=== PATIENT | male | born 1945 | race Caucasian/White ===

== ENCOUNTER → 2018-06-26 06:25 | Outpatient (CLI) | payer MEDICARE, OTHER, SELFPAY ==
[2018-06-23 13:03] VITALS: BMI 29.7
--- NOTE | 2018-06-26 14:44 | STRESSREP_ITS ---
Stress Test Report Date: 06/26/2018 Procedure: Exercise tolerance test/imaging study Indications: Chest pain; CAD; PCI Consent: Per the patient Procedure: The patient exercised on a Kashif protocol for 6 minutes completing Stage II and 45 seconds of Stage III achieving a peak heart rate of 100 bpm (37 % predicted maximal heart rate) with a peak blood pressure 190/92 mmHg and a peak MET capacity of 8 METs. The baseline ECG demonstrated sinus bradycardia; first-degree AV block; right IVCD; inferior WA of indeterminate age; nonspecific ST and T wave abnormality. The peak exercise ECG demonstrated continued nonspecific ST and T wave abnormality. There were rare nonconducted PACs during exercise and recovery. The functional capacity was considered average. There was no complaint of chest discomfort during exercise or recovery. The examination was discontinued secondary to dyspnea. Impression: 1. Technically adequate (percent predicted maximal heart rate greater than 85%) exercise tolerance test 2. Peak exercise ECG continued nonspecific ST and T wave abnormality 3. There were rare nonconducted PACs during exercise and recovery 4. No morphologic (Regadenoson) evaluation pending Procedure: Pharmacologic stress nuclear imaging study Consent: Per the patient Procedure: The patient underwent pharmacologic (Regadenoson) evaluation with a peak heart rate of 75 beats per minute (50 predicted maximal heart rate) and a peak blood pressure of 146/70 mmHg. The baseline ECG demonstrated sinus bradycardia; first-degree AV block; right IVCD; inferior WA of indeterminate age; nonspecific ST and T wave abnormality. The peak pharmacologic ECG demonstrated no obvious ECG changes. There were no cardiac dysrhythmias pretest, during pharmacologic infusion, or recovery. There was no complaint of chest discomfort during pharmacologic infusion or recovery. The examination was discontinued secondary to completion of protocol. Impression: 1. Pharmacologic (Regadenoson) evaluation 2. Peak pharmacologic ECG with no obvious ECG changes. 3. There were no cardiac dysrhythmias pretest, during pharmacologic infusion, or recovery. 4. Nuclear images pending Myocardial perfusion imaging study: Technique: The patient was injected with 11.7 millicuries of technetium 99m Cardiolite and subsequently rest SPECT Cardiolite nuclear imaging was obtained in the horizontal long, vertical long, and short axis views. The patient exercised on a Kashif protocol for 6 minutes completing Stage II and 45 seconds of Stage III achieving a peak heart rate of 100 bpm (37 % predicted maximal heart rate) with a peak blood pressure 190/92 mmHg and a peak MET capacity of 8 METs. The patient underwent pharmacologic (Regadenoson) evaluation with a peak heart rate of 75 beats per minute (50 % percent predicted maximal heart rate) and a peak blood pressure of 146/70 mmHg. The patient was injected with 33.9 millicuries of technetium 99m Cardiolite and subsequently stress SPECT Cardiolite nuclear imaging was obtained in the horizontal long, vertical long, and short axis views. A gated Cardiolite study at peak stress was obtained. Interpretation: Rest and stress SPECT Cardiolite nuclear imaging status post realignment, normalization, and attenuation correction demonstrate areas of extracardiac/gastrointestinal tracer uptake near the inferior segments which appear to be more prominent following rest as opposed to stress. Both images demonstrate areas of diminished absence of tracer uptake in portions of the basal inferoseptal and basal inferior segments. This appears to be somewhat more prominent at rest extending toward the mid inferior segment as opposed to status post stress. Status post stress there appears to be a small area of subtle diminished tracer uptake near the lateral apical segment. There are similar type changes on the resting and stress polar map images.. There is diminished end-systolic thickening and brightening in portions of the inferior septal and inferior segments. The gated Cardiolite study demonstrates myocardial thickening and inward wall motion. The reported LVEF is 65 %. Impression: 1. Rest and stress SPECT currently nuclear imaging demonstrate myocardial perfusion changes at rest which appear to improve and/or normalize following stress appearing compatible shifting soft tissue attenuation/artifact and following stress a small area of subtle diminished tracer uptake near the lateral apical segment which would be potentially compatible with physiologic apical thinning and considered equivocal for an area of stress-induced myocardial ischemia. 2. The gated Cardiolite study reports an LVEF of 65%. This note was generated with BlueStacks[employer] software. It may contain incorrect words, spelling, and punctuation that were not noted in checking the note before signing.
--- OUTSIDE RECORDS SUMMARY | 2018-08-21 00:58 | XMS RPT_ITS ---
:1945 Author Organization [place] Support Name Relationship Address Phone ROLAN PENNY Unavailable [address] + [place] [address] R Unavailable Unavailable Unavailable ROLAN PENNY Unavailable [address] + [place] [address] R Unavailable Unavailable Unavailable ROLAN PENNY Unavailable [address] + [place] [address] R Unavailable Unavailable Unavailable ROLAN PENNY Unavailable [address] + [place] [address] R Unavailable Unavailable Unavailable ROLAN PENNY Unavailable [address] + [place] [address] R Unavailable Unavailable Unavailable GRACE PENNY Unavailable Unavailable + ROLAN PENNY Unavailable [address] Unavailable [place], [place] [phone] NOT GIVEN Unavailable Unavailable Unavailable NOT GIVEN Unavailable Unavailable Unavailable GRACE PENNY Unavailable Unavailable + ROLAN PENNY Unavailable [address] Unavailable [place], [place] [phone] NOT GIVEN Unavailable Unavailable Unavailable ROLAN PENNY Unavailable [address] + [place] [address] R Unavailable Unavailable Unavailable ROLAN PENNY Unavailable [address] + [place] [address] R Unavailable Unavailable Unavailable Care Team Providers Name Role Phone RADHA ANGEL Admitting Unavailable RADHA ANGEL Attending Unavailable RADHA ANGEL Primary Care Unavailable DOMENIC BOYLE Consulting Unavailable DOMENIC BOYLE Referring Unavailable PROVIDER, UNKNOWN Consulting Unavailable PROVIDER, UNKNOWN Consulting Unavailable PROVIDER, UNKNOWN Consulting Unavailable MAKAYLA PETERS MD Admitting Unavailable MAKAYLA PETERS MD Attending Unavailable MAKAYLA PETERS MD Primary Care Unavailable MAKAYLA PETERS MD Consulting Unavailable PROVIDER, UNKNOWN Consulting Unavailable PROVIDER, UNKNOWN Consulting Unavailable MAKAYLA PETERS MD Admitting Unavailable MAKAYLA PETERS MD Attending Unavailable MAKAYLA PETERS MD Primary Care Unavailable MAKAYLA PETERS MD Consulting Unavailable PROVIDER, UNKNOWN Consulting Unavailable PROVIDER, UNKNOWN Consulting Unavailable Moodispaw, Demetri Attending Unavailable Moodispaw, Demetri Referring Unavailable Primay Care Physicia, No Primary Care Unavailable Mood[place], Demetri Consulting Unavailable Leigh Rick Attending Unavailable Naya Garcia Attending Unavailable Domenic Boyle Referring Unavailable Boyle, Domenic Primary Care Unavailable Faizan Fraga Attending Unavailable Sharifa Lake PA-C Referring Unavailable Naya Garcia Attending Unavailable Naya Garcia Referring Unavailable Boyle, Domenic Primary Care Unavailable Moodispaw, Demetri Attending Unavailable Mood[place], Demetri Referring Unavailable Primay Care Physicia, No Primary Care Unavailable Mood[place], Demetri Attending Unavailable Mood[place], Demetri Referring Unavailable Primay Care Physicia, No Primary Care Unavailable PROBLEMS PROBLEMS DATE TYPE CONDITION / CODE ATTENDING STATUS SOURCE 07/09/2018 Unknown I25.119 - Moodisp[place], Active [place] Atherosclerotic [facility] heart disease of Hospital inaja coronary Repository artery with unspecified angina pectoris / I25.119(ICD-10) 07/09/2018 Unknown R06.09 - Other forms Moodispaw, Active [place] of dyspnea / [facility] R06.09(ICD-10) Hospital Repository 07/09/2018 Unknown R07.9 - Chest pain, Mood[place], Active [place] unspecified / [facility] R07.9(ICD-10) Hospital Repository 07/09/2018 Unknown R94.39 - Abnormal Mood[place], Active [place] result of other [facility] cardiovascular Hospital function study / Repository R94.39(ICD-10) 07/09/2018 Unknown Z95.5 - Presence of Moodispaw, Active [place] coronary angioplasty [facility] implant and graft / Hospital Z95.5(ICD-10) Repository 04/02/2018 Principle Encounter for other RADHACRISTYFerdinand Active Edson Pomerene Diagnosis preprocedural MAKAYLA CORNELIUS [facility] / Hospital A01327(ICD-10) Repository PROCEDURES PROCEDURES No Procedure Records FoundRESULTS RESULTS 12 LEAD ELECTROCARDIOGRAM Observed: 07/10/2018 Status: F Source: [place] 11:08 AM [facility] REPOSITORY [facility] Cardiovascular Services [address] [place] [address] 12 Lead EKG 07/09/18 0521 MR#: [id number] Acct: [id number] Name: TABATHA PENNY Rep #: [id number] : 1945 73 From: Braden Hammonds MD Attending Dr: Demetri Desai MD Status: DEP SDC Ordering Dr: Kwasi Lazo MD Date: 07/09/18 Location: [facility] Sex: M C Admitted: Test Reason : AM EKG Blood Pressure : / mmHG Vent. Rate : 056 BPM Atrial Rate : 056 BPM P-R Int : 318 ms QRS Dur : 132 ms QT Int : 438 ms P-R-T Axes : 024 -55 -34 degrees QTc Int : 422 ms Sinus bradycardia with 1st degree A-V block Left axis deviation Non-specific intra-ventricular conduction block Lateral infarct , age undetermined Inferior infarct , age undetermined Abnormal ECG When compared with ECG of 08-JUL-2018 10:16, MANUAL COMPARISON REQUIRED, DATA IS UNCONFIRMED Confirmed by BRADEN HAMMONDS MD ([id number]), multimedia editor NASRA SAUCEDO ([id number]) on 07/10/2018 11:07:47 AM Referred By: Demetri Desai Confirmed By:BRADEN HAMMONDS MD 07/10/18 1107 Date Braden Hammonds MD CC: No Primary Care Physician; Kwasi Lazo MD; Demetri Desai MD Signed 12 LEAD ELECTROCARDIOGRAM Observed: 07/10/2018 Status: F Source: [place] 11:08 AM [facility] [place] [facility] Cardiovascular Services [address] [place] [address] 12 Lead EKG 07/08/18 1016 MR#: [id number] Acct: [id number] Name: TABATHA PENNY Rep #: [id number] : 1945 73 From: Braden Hammonds MD Attending Dr: Demetri Desai MD Status: DEP SDC Ordering Dr: Kwasi Laoz MD Date: 07/08/18 Location: [facility] Sex: M C Admitted: Test Reason : Blood Pressure : / mmHG Vent. Rate : 053 BPM Atrial Rate : 053 BPM P-R Int : 334 ms QRS Dur : 130 ms QT Int : 446 ms P-R-T Axes : 039 -59 -28 degrees QTc Int : 418 ms Sinus bradycardia with 1st degree A-V block Left axis deviation Non-specific intra-ventricular conduction block Lateral infarct , age undetermined Inferior infarct (cited on or before 02-NOV-1996) Abnormal ECG When compared with ECG of 19-DEC-2015 02:25, No significant change was found Confirmed by BRADEN HAMMONDS MD ([id number]), multimedia editor NASRA SAUCEDO ([id number]) on 07/10/2018 11:08:23 AM Referred By: Demetri Desai Confirmed By:BRADEN HAMMONDS MD 07/10/18 1108 Date Braden Hammonds MD CC: No Primary Care Physician; Kwasi Lazo MD; Demetri Desai MD Signed DISCHARGE SUMMARY Observed: 07/09/2018 Status: F Source: [place] 10:01 AM [facility] Medical Records Department [address] [place] [address] Discharge Summary 07/09/18 0957 MR#: [id number] Acct: [id number] Name: TABATHA PENNY Rep #: [id number] : 1945 73 From: Demetri Desai MD PCP: Care Physician, No Primary Status: REG SDC Y Location: ICU [id number] Discharge Date and Diagnosis Date of Admission: 07/08/18 Date of Discharge: 07/09/18 - Primary Discharge Diagnosis Angina pectoris; abnormal stress nuclear imaging study; CAD; status post LAD PCI - Secondary Discharge Diagnosis Chronic Problems (Last Updated 11/03/17 @ 09:53 by Tiesha Cleveland) S/P coronary artery stent placement (Chronic 07/08/18) AAA (abdominal aortic aneurysm) (Chronic) VANDANA (obstructive sleep apnea) (Chronic) CVA (cerebral vascular accident) (Chronic) History of coronary artery stent placement (Chronic) PTCA OF RCA 02/06, PTCA of proximal LAD AND mid RCA 09/10 Angina pectoris (Chronic) Diastolic dysfunction (Chronic) Hyperlipidemia (Chronic) Acquired left ventricular hypertrophy (Chronic) Right bundle-branch block (Chronic) 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 Desai [facility] Course and Treatment Operations: None Procedures: Cardiac catheterization - Cardiac intervention: LAD PCI Summary of Care Provided: The patient is a 73 year old with a past medical history of CAD status post remote PCI who presented for evaluation with angina pectoris and an abnormal stress nuclear imaging study for further evaluation with diagnostic cardiac catheterization. The patient underwent diagnostic cardiac catheterization (please the official report) demonstrating LAD in-stent restenosis. The patient subsequently underwent LAD PCI. The patient was monitored in the ICU overnight. He remained symptomatically stable. He had no obvious pulse procedure related complications. His medications were adjusted. On 07/09/2018 that was felt the patient could be released home for continued outpatient cardiovascular follow up. [] Subjective: The patient is awake and alert with no acute complaints or concerns. - Physical Exam General: Alert, Oriented x3, Cooperative, No apparent distress HEENT: Atraumatic, PERRLA, EOMI, Normocephalic Oral: Moist Mucosa Neck: Supple, No JVD Lungs: Clear to auscultation Cardiovascular: Regular rate, Normal S1, Normal S2 Abdomen: Bowel Sounds Present, Soft Extremities: No clubbing, No cyanosis, No edema, - - Right inguinal area: Right femoral artery pulse: 2+/4+; no hematoma; slight ecchymosis Neurological: Neuro grossly intact Vital Signs Temp Pulse Resp BP Pulse Ox 97.9 F 59 L 13 120/38 L 94 07/09/18 04:00 07/09/18 07:15 07/09/18 06:00 07/09/18 06:00 07/09/18 06:00 Oxygen Delivery Method Room Air Weight: 187 lb 6.287 oz Body Mass Index (BMI) 28.4 Finger Stick Blood Glucose 102 Intake and Output for Last 24 Hours Intake Total 1857 / 1857 400.2 / 400.2 Output Total 1050 / 1050 975 / 975 Balance 807 / 807 -574.8 / -574.8 Laboratory Tests Past 24 Hrs WBC 7.4 RBC 4.55 L Hgb 14.6 Hct 42.0 MCV 92.3 MCH 32.1 H MCHC 34.8 RDW 12.6 Discharge Activity: May Drive - May not drive x48 hours, May Shower - May shower today May resume sexual activity in: 2 weeks Weight Bearing Status: - - Avoid heavy lifting/exertional activity until 07/13/2018 barring unforeseen circumstances Call your doctor if your incision/area has: Continuous Slow Oozing, Sudden Increased Bleeding, Increased Pain/ Swelling, Increased Redness, Foul Smelling Discharge, Swelling at the incision site Call your doctor if you observe: Fever of 101 or Higher, Shortness of breath, Dizziness, Fainting spells, Swelling in the ankles, Chest pain Cleanse incision/area with: Soap AND Water Home Medications: Medications to take at Discharge Aspirin [Ecotrin] 81 mg PO DAILY 03/02/14 Clopidogrel Bisulfate [Plavix] 75 mg PO DAILY 03/02/14 Losartan Potassium [Cozaar] 50 mg PO DAILY 03/02/14 Nitroglycerin [Nitrostat] 0.4 mg SUBLINGUAL Q5M PRN 03/02/14 [place]-3 Fatty Acids [Fish Oil] 300 mg PO DAILY 03/02/14 Pantoprazole Sodium [Protonix] 40 mg PO DAILY 07/08/18 Vitamin E 400 units PO DAILY 07/08/18 Amlodipine [Norvasc] 2.5 mg PO DAILY #30 tablet 07/09/18 Aspirin E.C. [Ecotrin] 81 mg PO DAILY@0800 tablet 07/09/18 Atorvastatin Calcium [Lipitor] 80 mg PO QHS #30 tablet 07/09/18 Metoprolol Tartrate [Lopressor (beta tami)] 25 mg PO BID #60 tablet 07/09/18 Nitroglycerin [Nitrostat] 0.4 mg SUBLINGUAL Q5M PRN tablet 07/09/18 Following Prescrptions Were Given to Patient: Amlodipine [Norvasc] 2.5 mg PO DAILY #30 tablet Atorvastatin Calcium [Lipitor] 80 mg PO QHS #30 tablet Metoprolol Tartrate [Lopressor (beta tami)] 25 mg PO BID #60 tablet Primary Care Physician: Care Physician,No Primary [Primary Care Provider] - Please Follow Up With: Demetri Desai MD When: [facility] office to arrange follow up Disposition: Home Minutes spent on discharge:: 45 Patient Condition:: Stable Medical Necessity - Tobacco Use Smoking Status: Former smoker Meaningful Use Info Meaningful Use Diagnoses (Choose all that apply): None applicable 07/09/18 1001 <Electronically signed by Demetri Desai MD> Date Demetri Desai MD Cosigner Signature (if applicable): Date CC: No Primary Care Physician; Demetri Desai MD Signed DISCHARGE INSTRUCTION Observed: 07/09/2018 Status: F Source: [place] 9:57 AM [facility] [place] [facility] Medical Records Department [address] [place] [address] Instructions for Home/Discharge Instructions 07/09/18 0952 MR#: [id number] Acct: [id number] Name: TABATHA PENNY Rep #: [id number] : 1945 73 From: Demetri Desai MD PCP: Care Physician, No Primary Status: REG SDC - Discharge Diagnoses Current Active Problems: Angina pectoris; CAD; status post LAD PCI Reason(s) for Visit for Discharge Instructions: Angina pectoris; abnormal stress nuclear imaging study; CAD; status post remote PCI You will use the following diet at home:: Cardiac Your food should be the consistency of: Regular Discharge Activity: May Drive - May not drive x48 hours, May Shower - May shower today May resume sexual activity in: 2 weeks Weight Bearing Status: - - Avoid heavy lifting/exertional activity until 07/13/2018 barring unforeseen circumstances Call your doctor if your incision/area has: Continuous Slow Oozing, Sudden Increased Bleeding, Increased Pain/ Swelling, Increased Redness, Foul Smelling Discharge, Swelling at the incision site Call your doctor if you observe: Fever of 101 or Higher, Shortness of breath, Dizziness, Fainting spells, Swelling in the ankles, Chest pain Cleanse incision/area with: Soap AND Water Additional Instructions: Medication alterations: Change metoprolol Tartrate from 50 mg by mouth twice daily to 25 mg by mouth twice daily. Change atorvastatin from 40 mg by mouth daily to 80 mg by mouth daily. Initiate amlodipine at 2.5 mg by mouth daily Allergies/Adverse Reactions: Allergies Penicillins Allergy (Verified 07/08/18 11:37) Anaphylaxis hives and asystole Medications to take at Discharge Aspirin [Ecotrin] 81 mg PO DAILY 03/02/14 Clopidogrel Bisulfate [Plavix] 75 mg PO DAILY 03/02/14 Losartan Potassium [Cozaar] 50 mg PO DAILY 03/02/14 Nitroglycerin [Nitrostat] 0.4 mg SUBLINGUAL Q5M PRN 03/02/14 [place]-3 Fatty Acids [Fish Oil] 300 mg PO DAILY 03/02/14 Pantoprazole Sodium [Protonix] 40 mg PO DAILY 07/08/18 Vitamin E 400 units PO DAILY 07/08/18 Amlodipine [Norvasc] 2.5 mg PO DAILY #30 tablet 07/09/18 Aspirin E.C. [Ecotrin] 81 mg PO DAILY@0800 tablet 07/09/18 Atorvastatin Calcium [Lipitor] 80 mg PO QHS #30 tablet 07/09/18 Metoprolol Tartrate [Lopressor (beta tami)] 25 mg PO BID #60 tablet 07/09/18 Nitroglycerin [Nitrostat] 0.4 mg SUBLINGUAL Q5M PRN tablet 07/09/18 The following prescriptions were given: Amlodipine [Norvasc] 2.5 mg PO DAILY #30 tablet Atorvastatin Calcium [Lipitor] 80 mg PO QHS #30 tablet Metoprolol Tartrate [Lopressor (beta tami)] 25 mg PO BID #60 tablet Primary Care Physician: Care Physician,No Primary [Primary Care Provider] - Test Results: Test results from this visit will be discussed in further detail at your follow-up appointment, if applicable. Please Follow Up With: Demetri Desai MD When: [facility] office to arrange follow up Proposed Discharge Date: 07/09/18 07/09/18 0957 <Electronically signed by Demetri Desai MD> Date Demetri Desai MD CC: No Primary Care Physician CBC-COMPLETE BLOOD CNT Collected: 07/09/2018 Status: F Source: [place] NO DIFF 5:00 AM [facility] [place] TYPE CODE TESTS RESULT OUT OF RANGE REFERENCE UNITS LAB L100.1000 4.4-11.0 K/mm3 Normal WBC 7.4 LAB L100.1200 4.6-6.2 M/mm3 Low RBC 4.55 LAB L100.1300 13.0-16.5 g/dl Normal HGB 14.6 LAB L100.1400 40-54 % Normal HCT 42.0 LAB L100.1500 80-94 fL Normal MCV 92.3 LAB L100.1600 27.0-32.0 pg High MCH 32.1 LAB L100.1700 32-36 g/gl Normal MCHC 34.8 LAB L100.1810 11.6-14.6 % Normal RDW CV 12.6 LAB L100.1820 35.1-43.9 fl Normal RDW SD 41.6 LAB L100.1900 150-450 K/mm3 Normal PLT 182 LAB L100.2000 6.2-12.0 fl Normal MPV 9.9 Performed By: #### L100.0500 #### [facility] [address] [place], [address] BASIC METABOLIC Collected: 07/09/2018 Status: F Source: [place] PROFILE (BMP) 5:00 AM [facility] [place] TYPE CODE TESTS RESULT OUT OF RANGE REFERENCE UNITS LAB L501.0100 74-106 mg/dL Normal GLU 102 Result Comment: Fasting Glucose result from 100 to 125 mg/dL suggests IMPAIRED HOMEOSTASIS per A.D.A. criteria. Please note revised GLUCOSE reference range effective 2017. LAB L501.1000 7-18 mg/dL Normal BUN 14 LAB L501.1100 0.70-1.30 mg/dL Normal CREAT,SERUM 0.90 Result Comment: The validity of the calculated GFR AND GFRAA in patients over 70 years has not been determined. Clinical correlation is essential. LAB L501.1110 >60 mL/min Normal EST GFR 88 Result Comment: Non- GFR Calc LAB L501.1115 >60 mL/min Normal EST GFR - AA 106 Result Comment: GFR Calc LAB L501.1255 ml/min Normal Estimated CRCL 74.19 LAB L501.1300 10-20 RATIO Normal BUN/CRE 15.5 LAB L501.2200 8.5-10 mg/dL Low .1 CA 8.4 LAB L501.5300 136-14 mmol/L Normal 5 NA 143 LAB L501.5600 3.5-5. mmol/L Normal 1 K 4.1 LAB L501.5900 98-107 mmol/L High CL 108 LAB L501.6100 21.0-3 mmol/L Normal 2.0 CO2 27.0 LAB L501.6200 5-15 Normal GAP 8 Performed By: #### L500.2500 #### [facility] [address] [place], [address] ACT ACTIVATED CLOTTING Collected: 07/08/2018 Status: F Source: [place] TIME 9:38 AM [facility] [place] TYPE CODE TESTS RESULT OUT OF RANGE REFERENCE UNITS LAB L9100.0100 74-137 sec High ACTk CLOT 186 TIME Performed By: #### L9100.0100 #### [facility] Point of Care [address] [place] [address] CHEST PA AND LATERAL Observed: 06/30/2018 Status: F Source: [place] 2:03 PM [facility] Imaging Services [address] [place] [address] Chest PA and Lateral MR#: [id number] Acct: [id number] Name: TABATHA PENNY Rep #: [id number] : 1945 M 73 From: Edward Mendosa MD PCP: Care Physician, No Primary Status: REG CLI Study: Chest PA and Lateral Date of Exam: 06/30/18 Exam# [id number] Ordering Dr: Demetri Desai MD STUDY: X-RAY CHEST REASON FOR EXAM: Male, 73 years old. Chest pain with exertion TECHNIQUE: Frontal and lateral views of the chest. COMPARISON: 12/19/2015 FINDINGS: The lungs are clear and expanded. There is no demonstrated pleural abnormality. Normal size heart. Normal mediastinum and [place]. Normal visualized pulmonary arteries. Normal visualized aortic arch and descending thoracic aorta. Normal visualized thoracic spine. There is degenerative osteoarthritis of the bilateral shoulders. There is no demonstrated abnormality of the visualized soft tissue structures of the upper abdomen. RAD/Chest PA and Lateral IMPRESSION: No acute pulmonary findings. Electronically Signed: Edward Mendosa MD at 15:44 EST Tel , Service support , CC: No Primary Care Physician; Demetri Desai MD Bar Porter: Signed CBC-COMPLETE BLOOD CNT Collected: 06/30/2018 Status: F Source: [place] NO DIFF 1:50 PM [facility] [place] [place] TYPE CODE TESTS RESULT OUT OF RANGE REFERENCE UNITS LAB L100.1000 4.4-11.0 K/mm3 Normal WBC 5.8 LAB L100.1200 4.6-6.2 M/mm3 Normal RBC 5.01 LAB L100.1300 13.0-16.5 g/dl Normal HGB 15.9 LAB L100.1400 40-54 % Normal HCT 47.1 LAB L100.1500 80-94 fL Normal MCV 94.0 LAB L100.1600 27.0-32.0 pg Normal MCH 31.7 LAB L100.1700 32-36 g/gl Normal MCHC 33.8 LAB L100.1810 11.6-14.6 % Normal RDW CV 13.0 LAB L100.1820 35.1-43.9 fl High RDW SD 44.5 LAB L100.1900 150-450 K/mm3 Normal PLT 172 LAB L100.2000 6.2-12.0 fl Normal MPV 10.3 Performed By: #### L100.0500 #### [facility] [place], [address] PROTHROMBIN TIME W/INR Collected: 06/30/2018 Status: F Source: [place] 1:50 PM [facility] TYPE CODE TESTS RESULT OUT OF RANGE REFERENCE UNITS LAB L300.4150 11.7-14.9 SECONDS Normal PROTIME 13.8 LAB L300.4200 Normal INR 1.1 Performed By: #### L300.3900, L300.4310 #### [facility] [address] [place], [place], [address] PARTIAL THROMBOPLAST Collected: 06/30/2018 Status: F Source: [place] TIME 1:50 PM [facility] TYPE CODE TESTS RESULT OUT OF RANGE REFERENCE UNITS LAB L300.4310 24.1-36.2 Seconds Normal PTT 27.3 Performed By: #### L300.3900, L300.4310 #### [facility] [address] [place], [place], [address] BASIC METABOLIC Collected: 06/30/2018 Status: F Source: [place] PROFILE (BMP) 1:50 PM [facility] [place] TYPE CODE TESTS RESULT OUT OF RANGE REFERENCE UNITS LAB L501.0100 74-106 mg/dL High GLU 111 Result Comment: Fasting Glucose result from 100 to 125 mg/dL suggests IMPAIRED HOMEOSTASIS per A.D.A. criteria. Please note revised GLUCOSE reference range effective 2017. LAB L501.1000 7-18 mg/dL Normal BUN 12 LAB L501.1100 0.70-1.30 mg/dL Normal CREAT,SERUM 1.00 Result Comment: The validity of the calculated GFR AND GFRAA in patients over 70 years has not been determined. Clinical correlation is essential. LAB L501.1110 >60 mL/min Normal EST GFR 78 Result Comment: Non- GFR Calc LAB L501.1115 >60 mL/min Normal EST GFR - AA 95 Result Comment: GFR Calc LAB L501.1300 10-20 RATIO Normal BUN/CRE 12.0 LAB L501.2200 8.5-10.1 mg/dL CA Normal 8.7 LAB L501.5300 136-145 mmol/L NA Normal 141 LAB L501.5600 3.5-5.1 mmol/L K Normal 4.3 LAB L501.5900 98-107 mmol/L CL Normal 105 LAB L501.6100 21.0-32.0 mmol/L Normal CO2 29.0 LAB L501.6200 5-15 Normal GAP 7 Performed By: #### L500.2500 #### [facility] [address] [place], [address] STRESS REPORT Observed: 06/26/2018 Status: F Source: [place] 2:44 PM [facility] Cardiovascular Services [address] [place] [address] MR#: [id number] Acct: [id number] Name: TABATHA PENNY Rep #: [id number] : 1945 73 From: Demetri Desai MD Primary Care: Sharifa Lake PA-C Status: REG CLI Ordering Dr: Livier: Felipe Agarwal Stress Test Report Date: 06/26/2018 Procedure: Exercise tolerance test/imaging study Indications: Chest pain; CAD; PCI Consent: Per the patient Procedure: The patient exercised on a Kashif protocol for 6 minutes completing Stage II and 45 seconds of Stage III achieving a peak heart rate of 100 bpm (37 % predicted maximal heart rate) with a peak blood pressure 190/92 mmHg and a peak MET capacity of 8 METs. The baseline ECG demonstrated sinus bradycardia; first-degree AV block; right IVCD; inferior NE of indeterminate age; nonspecific ST and T wave abnormality. The peak exercise ECG demonstrated continued nonspecific ST and T wave abnormality. There were rare nonconducted PACs during exercise and recovery. The functional capacity was considered average. There was no complaint of chest discomfort during exercise or recovery. The examination was discontinued secondary to dyspnea. Impression: 1. Technically adequate (percent predicted maximal heart rate greater than 85%) exercise tolerance test 2. Peak exercise ECG continued nonspecific ST and T wave abnormality 3. There were rare nonconducted PACs during exercise and recovery 4. No morphologic (Regadenoson) evaluation pending Procedure: Pharmacologic stress nuclear imaging study Consent: Per the patient Procedure: The patient underwent pharmacologic (Regadenoson) evaluation with a peak heart rate of 75 beats per minute (50 predicted maximal heart rate) and a peak blood pressure of 146/70 mmHg. The baseline ECG demonstrated sinus bradycardia; first-degree AV block; right IVCD; inferior NE of indeterminate age; nonspecific ST and T wave abnormality. The peak pharmacologic ECG demonstrated no obvious ECG changes. There were no cardiac dysrhythmias pretest, during pharmacologic infusion, or recovery. There was no complaint of chest discomfort during pharmacologic infusion or recovery. The examination was discontinued secondary to completion of protocol. Impression: 1. Pharmacologic (Regadenoson) evaluation 2. Peak pharmacologic ECG with no obvious ECG changes. 3. There were no cardiac dysrhythmias pretest, during pharmacologic infusion, or recovery. 4. Nuclear images pending Myocardial perfusion imaging study: Technique: The patient was injected with 11.7 millicuries of technetium 99m Cardiolite and subsequently rest SPECT Cardiolite nuclear imaging was obtained in the horizontal long, vertical long, and short axis views. The patient exercised on a Kashif protocol for 6 minutes completing Stage II and 45 seconds of Stage III achieving a peak heart rate of 100 bpm (37 % predicted maximal heart rate) with a peak blood pressure 190/92 mmHg and a peak MET capacity of 8 METs. The patient underwent pharmacologic (Regadenoson) evaluation with a peak heart rate of 75 beats per minute (50 % percent predicted maximal heart rate) and a peak blood pressure of 146/70 mmHg. The patient was injected with 33.9 millicuries of technetium 99m Cardiolite and subsequently stress SPECT Cardiolite nuclear imaging was obtained in the horizontal long, vertical long, and short axis views. A gated Cardiolite study at peak stress was obtained. Interpretation: Rest and stress SPECT Cardiolite nuclear imaging status post realignment, normalization, and attenuation correction demonstrate areas of extracardiac/gastrointestinal tracer uptake near the inferior segments which appear to be more prominent following rest as opposed to stress. Both images demonstrate areas of diminished absence of tracer uptake in portions of the basal inferoseptal and basal inferior segments. This appears to be somewhat more prominent at rest extending toward the mid inferior segment as opposed to status post stress. Status post stress there appears to be a small area of subtle diminished tracer uptake near the lateral apical segment. There are similar type changes on the resting and stress polar map images.. There is diminished end-systolic thickening and brightening in portions of the inferior septal and inferior segments. The gated Cardiolite study demonstrates myocardial thickening and inward wall motion. The reported LVEF is 65 %. Impression: 1. Rest and stress SPECT currently nuclear imaging demonstrate myocardial perfusion changes at rest which appear to improve and/or normalize following stress appearing compatible shifting soft tissue attenuation/artifact and following stress a small area of subtle diminished tracer uptake near the lateral apical segment which would be potentially compatible with physiologic apical thinning and considered equivocal for an area of stress- induced myocardial ischemia. 2. The gated Cardiolite study reports an LVEF of 65%. This note was generated with Bountysourceation software. It may contain incorrect words, spelling, and punctuation that were not noted in checking the note before signing. 06/26/18 1444 <Electronically signed by Demetri Desai MD> Date Demetri Desai MD CC: TALAT Lake; Domenic Boyle MD; Naya Garcia Date Dictated: 06/26/181433 Date Transcribed: 06/26/181433 Bar Porter: PM Signed CARDIOLOGY VISIT Observed: 06/23/2018 Status: F Source: [facility] 1:54 PM [facility] [address] [place] [address] OFFICE VISIT Date of Service: 06/23/18 MR#: [id number] Acct: [id number] Name: TABATHA PENNY Rep #: [id number] : 1945 Provider: CATERINA Fraga Age/Sex: 73/M Location: [facility] Status: Signed [facility] Details: TABATHA PENNY is a 73 M who presents to the office today for a cardiovascular outpatient follow-up. He has a history of coronary artery disease with stenting to his RCA in 2012 and stenting to his proximal LAD and mid RCA in 2013. He also has a history of hypertension, hyperlipidemia, and CVA. He was diagnosed with VANDANA and is using a CPAP. He quit smoking in 1992. Patient contacted our office stating he has bilateral upper extremity arm pain, fatigue, and dyspnea on exertion. He was started on isosorbide and a nuclear stress test was ordered for further evaluation. He presents today for further evaluation regarding symptoms. He states his blood pressure at home as been well controlled. He states his beta-tami was decreased to help with fatigue. He has since returned to previous dosage due to current symptoms. He states since returning his metoprolol back to 50mg BID his bilateral arm pain and chest pain and SOB have improved. However, his symptoms remain. He states his chest pain feels similar as prior to his PCI. His exercise tolerance is stable. Pt denies symptoms of palpitations, lightheadedness, dizziness, near syncopal or syncopal episodes. Pt denies edema or claudication issues. Pt. denies orthopnea, PND, myalgia, or unexplainable fatigue. He states that he took isosorbide once, but developed a headache and discontinued it. Intake Vital Signs06/23/18 Blood Pressure 148/70 H 06/23/18 Blood Pressure Location Lt brachial Intake Visit Reasons: LUCIO Guide [place] Required: No Accompanied by: None Is patient in pain?: No Allergies Penicillins Allergy (Verified 06/23/18 13:12) Unknown Medications Aspirin [Ecotrin] 81 mg PO DAILY 03/02/14 [History Confirmed 06/23/18] Clopidogrel Bisulfate [Plavix] 75 mg PO DAILY 03/02/14 [History Confirmed 06/23/18] Losartan Potassium [Cozaar] 50 mg PO DAILY 03/02/14 [History Confirmed 06/23/18] Nitroglycerin [Nitrostat] 0.4 mg SUBLINGUAL Q5M PRN 03/02/14 [History Confirmed 06/23/18] [place]-3 Fatty Acids [Fish Oil] 300 mg PO DAILY 03/02/14 [History Confirmed 06/23/18] Atorvastatin Calcium [Lipitor] 40 mg PO QHS #30 10/18/14 [Rx Confirmed 06/23/18] ergocalciferol (vitamin D2) 400 unit tablet 400 unit PO DAILY 06/23/18 [History Confirmed 06/23/18] metoprolol tartrate 50 mg tablet 50 mg PO BID tab 06/23/18 [History] Ejection fraction %: 60 to 64 PFSH Medical History VANDANA (obstructive sleep apnea) (Chronic) CVA (cerebral vascular accident) (Chronic) Diastolic dysfunction (Chronic) Hyperlipidemia (Chronic) Acquired left ventricular hypertrophy (Chronic) Right bundle-branch block (Chronic) Old myocardial infarction (Resolved) Atherosclerotic heart disease of inaja coronary artery without angina pectoris (Chronic) Intractable nausea and vomiting (Resolved) Headache (Resolved) History of TIA (Chronic) Hypertension (Chronic) Coronary artery disease (Chronic) Surgical History History of coronary artery stent placement (Chronic) Family History Brother Diabetes Brother Hypertension Brother Cancer esophageal Brother Hip fracture Sister Diabetes Kidney disease kidney failure Sister Diabetes CAD (coronary artery disease) Hx of CABG Obesity Hyperlipidemia Father CAD (coronary artery disease) Myocardial infarction CHF (congestive heart failure) Daughter Migraine Mother Cancer Lung cancer Myocardial infarction Social History Smoking Status: Former smoker how long ago did patient quit smokin alcohol intake: former year quit: 1992 substance use type: does not use caffeine: No what type of physical activity do you participate in: bicycling, other details: tredmill frequency: 3-4 times per week duration: 30-45 minutes/day seatbelt use: always do you feel safe at home: Yes ROS Const Const: Positive for fatigue (Improving) and other (Bilateral arm pain); negative for weakness, body ache, fever(s) or chills ENT ENT: Negative for dizziness Cardio Chest Pain: No Palpitations: No Edema: None Muscle aches with walking: None Resp Respiratory: Positive for SOB with activity; negative for SOB at rest, SOB orthopnea\SOB lying down or paroxysmal nocturnal dyspnea GI GI: Negative nausea, black,tarry stools, bright, red blood in stools or vomiting blood/hematemesis : Negative for hematuria or frequent nighttime urination/ nocturia Musc Musc: Negative for muscle aches/ myalgia Skin Skin: Negative non-healing lesions or rash Neuro Neuro: Negative for weakness, dizziness, lightheadedness, near syncope, syncope or orthostatic symptoms Endo Endo: Positive for fatigue (Improving) Allergy Allergy/Immunology: Negative for rash Cardiology Exam Const Appearance: cooperative, no acute distress and well developed Nutritional Appearance: overweight and well nourished Orientation: alert, awake and oriented x3 Head Head: normocephalic and atraumatic Ears: hearing grossly normal bilaterally Nose: external nose normal Face and Sinus: face symmetric Mouth: moist mucous membranes and tongue normal Eyes General: appearance normal, both eyes and all related structures Conjunctivae: conjunctivae normal Pupils: PERRL EOM: EOM intact bilaterally Neck Neck: normal visual inspection, no lymphadenopathy and no JVD Carotids: Negative bruit Neck Mass: Negative Neck mass Chest Chest inspection: normal inspection of the chest, symmetric chest movement, midline sternotomy incision and normal respiratory effort Auscultation: Bilateral: Clear to Auscultation Cardio Palpation: normal PMI Rate: regular rate Rhythm: regular rhythm Heart sounds: S1 normal and S2 normal; negative rub, gallop or murmur GI GI: normal to inspection, soft, no hepatosplenomegaly and bowel sounds present; negative tender Neuro General: alert, awake, oriented x3, CN's II-XI intact bilaterally and moves all extremities Skin Skin: no rashes or lesions noted Extremities Pulses: Normal: Right Posterior Tibial Pulse, Left Posterior Tibial Pulse, Right Radial Pulse, Left Radial Pulse Lower Extremity Edema: None: Bilateral Psych Psychological: normal affect Supplemental Info Echocardiogram 2014 demonstrated an ejection fraction of 60%. Trivial mitral and tricuspid insufficiency. No obvious intracardiac mass/will lesion port/thrombus identified. Carotid u/s in 2017 demonstrated Mild irregular plague at the proximal right internal carotid with <50% stenosis. Moderate soft plague at the proximal left internal carotid with 50-69% stenosis. Normal flow bilateral external carotids. Patent and antegrade vertebrals bilaterally. Heart cath in November 2015 demonstrated Left ventricle: Severe hypokinesis to akinesis of the basal to mid inferior segment with an estimated LVEF 55%. Left main coronary artery: Angiographically normal. Left anterior descending coronary artery: Proximal stent: Patent with no obvious angiographic evidence of in-stent restenosis, Status post the takeoff of the 2nd diagonal branch there is 25% eccentric appearing stenosis . Left circumflex coronary artery: Proximal to mid diffuse 25% appearing stenosis. Right coronary artery: Large dominant vessel, Proximal to mid to distal stents, Proximal to mid: 10-25% eccentric appearing stenosis, Distal stents: Near the termination of the stent: 50% hazy eccentric appearing. He was referred to [place] for possible stenting. This was reviewed by Dr. Mancera and it was felt that this could be treated medically. Assessment AND Plan 1. Atherosclerosis of inaja coronary artery of inaja heart without angina pectoris I25.10 Plan Patient will undergo a nuclear stress test in approximately 3 days to further evaluate for ischemic component. He does acknowledge similarity with his symptoms with previous PCIs. This will further evaluate his bilateral arm pain, fatigue, and shortness of breath. Depending on results further recommendation will be made. 2. History of coronary artery stent placement Z95.5 PTCA OF RCA 02/06, PTCA of proximal LAD AND mid RCA 09/10 Plan His most recent heart catheterization was in November 2015 which showed proximal LAD stent with no obvious angiographic evidence of in-stent restenosis and RCA stent with 50% stenosis. He was evaluated at [facility] for this and medical management was recommended. At this time, he will continue current medications and we will proceed with nuclear stress test. 3. Dyspnea on exertion R06.09 Plan The exact etiology of his dyspnea is unclear. If his stress test is negative further consideration for repeating echocardiogram will be made. 4. Essential hypertension I10 Plan His blood pressure initially was elevated and upon recheck was on the higher end of expected range. He states his blood pressure at home has been better controlled. At this time we will continue current medication. Depending on his overall course his losartan may need to be to increased to 100 mg p.o. daily or 50 mg twice daily for better blood pressure support. 5. Pure hypercholesterolemia E78.00 Plan He will continue with current statin medication. 6. Abdominal aortic aneurysm (AAA) without rupture I71.4 Plan His last abdominal aorta ultrasound in 2014 showed stable infrarenal abdominal aortic aneurysm measuring 3.3 cm in transverse dimension and 3.2 cm in AP dimension. He states that this has been reevaluated by primary care physician in May 2018. He was reminded of the importance of both blood pressure and heart rate control. He will continue current medications. Plan Detail Other Medications Discontinued: isosorbide mononitrate ER Discontinued Reason: Pt no long30 mg PO DAILY 30 tabs 11RF er taking Additional Comments Thank you for allowing us to participate in the patient's plan of care, if you have any questions please do not hesitate to call. This note was generated using a voice recognition system and there may be incorrect words, spelling, or punctuation that were not noted upon reviewing the office note prior to saving. Coding Level of Care Code Off vis,est,level 3 Diagnoses Atherosclerosis of inaja coronary artery of inaja heart without angina pectoris I25.10 [place] vs. transplanted heart: inaja heart History of coronary artery stent placement Z95.5 Dyspnea on exertion R06.09 Essential hypertension I10 Hypertension type: essential hypertension Pure hypercholesterolemia E78.00 Hyperlipidemia type: pure hypercholesterolemia Abdominal aortic aneurysm (AAA) without rupture I71.4 Presence of rupture: without rupture Coding Level of Care Code Off vis,est,level 3 Diagnoses Atherosclerosis of inaja coronary artery of inaja heart without angina pectoris I25.10 [place] vs. transplanted heart: inaja heart History of coronary artery stent placement Z95.5 Dyspnea on exertion R06.09 Essential hypertension I10 Hypertension type: essential hypertension Pure hypercholesterolemia E78.00 Hyperlipidemia type: pure hypercholesterolemia Abdominal aortic aneurysm (AAA) without rupture I71.4 Presence of rupture: without rupture 06/23/18 1354 <Electronically signed by Faizan WELCH> Date Faizan WELCH Cosigner Signature: Date (if applicable) CC: TALAT Lake US AORTA Observed: 06/15/2018 Status: F [facility] [place] [id number] Patient: TABATHA PENNY Phone#: : [phone] Age: 73 Gender: M Pt. Type: Out Account: [id number] Location: [facility] Ordering: MAKAYLA PETERS Exam Date: 06/15/2018/8:27 Family Phys: Charge Code: [id number] Physician: [place] Order #: [id number] DLP Dose#: PROCEDURE: AORTA ULTRASOUND COMPARISON: None. INDICATIONS: Aortic Aneurysm TECHNIQUE: Ultrasound was performed of the abdominal aorta. FINDINGS: Evaluation somewhat limited by bowel gas. AORTA: Normal. No aneurysm. Proximal aorta: 2.0 x 2.3 cm Mid aorta: 2.1 x 2.5 cm Distal aorta: 3.1 x 3.6 cm Aortic bifurcation: 1.3 x 1.0 cm OTHER: Negative. CONCLUSION: Distal aortic aneurysm with narrowing of the bifurcation. Dictated by: Trini Haro MD on 06/15/2018 at 14:05 Approved by: Trini Haro MD on 06/15/2018 at 14:05 BMP WITH EGFR Collected: 04/02/2018 Status: F Source: [facility] 11:50 AM [facility] REPOSITORY TYPE CODE TESTS RESULT OUT OF RANGE REFERENCE UNITS LAB BMP with eGFR(LOINC) BMP with eGFR Result Comment: BASIC METABOLIC PANEL LAB SODIUM(LOINC) 136 - 145 mmol/l SODIUM 139 LAB POTASSIUM(LOINC) 3.5 - 5.1 mmol/L POTASSIUM 4.4 LAB CHLORIDE(LOINC) 98 - 107 mmol/L CHLORIDE 105 LAB CO2(LOINC) 21.0 - mmol/L 31.0 CO2 28.6 LAB GLUCOSE(LOINC) 74 - 106 mg/dl GLUCOSE 98 LAB BUN(LOINC) 6 - 20 mg/dl BUN 12 LAB CREATININE(LOINC) 0.7 - 1.3 mg/dl CREATININE 1.0 LAB CALCIUM(LOINC) 8.6 - mg/dl 10.2 CALCIUM 9.4 LAB ANION GAP(LOINC) 10 - 20 mmol/L ANION GAP 10 LAB AGE(LOINC) years AGE 73 LAB eGFR(LOINC) 60 - 999 ML/MINUTE eGFR >60 LAB eGFR(AA)(LOINC) 60 - 999 ML/MINUTE eGFR(AA) >60 Result Comment: ACCORDING TO THE NATIONAL KIDNEY DISEASE EDUCATION PROGRAM(NKDE), A NORMAL eGFR IS A VALUE GREATER THAN OR EQUAL TO 60 ML/MIN/1.73 SQ METERS. CHRONIC KIDNEY DISEASE: <60mL/MIN/1.73 SQ METERS KIDNEY FAILURE: <15mL/MIN/1.73 SQ METERS THIS TEST SHOULD ONLY BE USED FOR PATIENTS 18 YEARS OF AGE AND OLDER. Performed By: #### [id number] #### [facility],[address] [place] [address] CBC Collected: 04/02/2018 Status: F Source: [facility] 11:50 [facility] REPOSITORY TYPE CODE TESTS RESULT OUT OF RANGE REFERENCE UNITS LAB CBC(LOINC) CBC Result Comment: CBC-COMPLETE BLOOD COUNT LAB WBC(LOINC) 4.5 - 10.8 x 10EE3/UL WBC 6.3 LAB RBC(LOINC) 4.50 - x 10EE6/UL 6.00 RBC 5.05 LAB HEMOGLOBIN(LOINC) 13.0 - g/dl 17.5 HEMOGLOBIN 16.5 LAB HEMATOCRIT(LOINC) 40.0 - % 52.0 HEMATOCRIT 47.0 LAB MCV(LOINC) 81 - 98 fl MCV 93 LAB MCH(LOINC) 27 - 33 pg MCH 33 LAB MCHC(LOINC) 32 - 36 X10 3 MCHC 35 LAB RDW/CV(LOINC) 12.0 - % 15.6 RDW/CV 13.8 LAB PLATELET(LOINC) 150 - 450 x10EE3/UL PLATELET 191 LAB MPV(LOINC) 6.4 - 10.5 fl MPV 8.6 Result Comment: AUTOMATED DIFFERENTIAL LAB NEUT %(LOINC) 46.0 - 76.0 % NEUT % 57.6 LAB LYMPH %(LOINC) 20.0 - 45.0 % LYMPH % 27.9 LAB MONOS %(LOINC) 0.0 - 10.0 % MONOS % High 10.5 LAB EO %(LOINC) 0.0 - 7.0 % EO % 2.7 LAB BASO %(LOINC) 0.0 - 2.0 % BASO % 1.3 LAB Lymph #(LOINC) 0.80 - 2.80 x10EE3/U L Lymph # 1.80 LAB Neut #(LOINC) 1.50 - 7.10 x10EE3/U L Neut # 3.70 LAB Bureau #(LOINC) 0.20 - 1.00 x10EE3/U L Bureau # 0.70 LAB EO #(LOINC) 0.00 - 0.50 x10EE3/U L EO # 0.20 LAB Baso #(LOINC) 0.00 - 0.10 x10EE3/U L Baso # 0.10 LAB MANUAL DIFF(LOINC) MANUAL DIFF N/A LAB MORPHOLOGY(LOINC ) MORPHOLOGY N/A Result Comment: {CD] Performed By: #### [id number] #### [facility],[address] [place] [address] OPERATIVE PROCEDURES Observed: 11/25/2017 Status: F Source: [facility] 8:18 AM [facility] OPERATIVE REPORT NAME ACCOUNT SEX AGE ADMIT DISCHARGE PT MED. RECORD# NUMBER DATE DATE TYPE TABATHA PENNY [id number] M 72 11/13/17 2 S [id number] ROOM: [facility] DATE OF : 1945 DICTATING PHYSICIAN: Radha Angel DATE OF SURGERY: November 13, 2017 SURGEON: Radha Angel MD POWDER NIPPER: ANESTHESIOLOGIST: ANESTHETIC: MAC. PREOPERATIVE DIAGNOSIS: Screening colonoscopy. POSTOPERATIVE DIAGNOSIS: Cecal polyp. OPERATION PERFORMED: Colonoscopy with cold grasp polypectomy. COMPLICATIONS: None. ESTIMATED BLOOD LOSS: Minimal. DRAINS: None. SPECIMENS: Cecal polyp. SIGNIFICANT FINDINGS: Colon prep was good. Cecal polyp was small, sessile and completely grossly excised. DISPOSITION: Home. Diet: Regular. Activity: Regular. Medications: Regular. Follow up in Dr. Angel's clinic in two weeks. Further recommendations will be made based on the pathology of the polyp. DESCRIPTION OF OPERATION: Following the initiation of MAC anesthesia, the patient was placed in the left lateral decubitus position. Digital rectal examination was performed. There were no findings on digital rectal examination. The flexible colonoscope was then introduced into the anus and advanced to the ileocecal junction under direct visualization. The scope was then slowly withdrawn and the colonic Page 1 of TABATHA HOLLAND Operative Report mucosa inspected meticulously. It was noted that the colonic prep was good. The patient did have a small sessile polyp in the cecum that was completely grossly excised using the cold grasp polypectomy forceps. The scope was then slowly withdrawn. There were no abnormalities appreciated within the ascending colon, transverse colon, descending colon, or sigmoid colon. The scope was withdrawn into the rectum and retroflexed. There were no rectal abnormalities. The scope was then straightened and the colon desufflated. The scope was removed. The patient was then awakened and taken to the PACU in good and stable condition. D: Radha Angel MD TD: 11/13/17 09:17 JOB #: [id number] Transcribed by: lopez Electronically signed by: E-SIGN DR. ANGEL 11/25/17 08:18 Page 2 of 2 TABATHA PENNY Operative Report HISTORY AND PHYSICAL Observed: 11/25/2017 Status: F Source: [facility] EXAM 8:18 AM [facility] HISTORY & PHYSICAL NAME ACCOUNT SEX AGE ADMIT DISCHARGE PT MED. RECORD# NUMBER DATE DATE TYPE TABATHA PENNY [id number] M 72 11/13/17 2 S [id number] ROOM: [facility] DATE OF : [birth year] DICTATING PHYSICIAN: Radha Angel CHIEF COMPLAINT: Screening for colon cancer. HISTORY OF PRESENT ILLNESS: Mr. Penny is a 72-year-old male who presents for screening colonoscopy. He denies any worrisome signs and symptoms at this time. He reports having a colonoscopy approximately five years ago. He is unsure whether polyps were removed or not. PAST MEDICAL HISTORY: None. MEDICATIONS: See MAR. ALLERGIES: Penicillin. SOCIAL HISTORY: Former smoker. He denies alcohol or illicit drug use. REVIEW OF SYSTEMS: Ten-system review of systems is negative. PHYSICAL EXAMINATION GENERAL APPEARANCE: He is alert, oriented, appropriate, and in no acute distress. VITAL SIGNS: He is afebrile. Vital signs are stable and within normal limits. LUNGS: Lungs are clear to auscultation bilaterally. HEART: Regular rate and rhythm. ABDOMEN: Abdomen is soft, nontender and nondistended. NEUROLOGIC: GCS is 15. Cranial nerves II through XII are grossly intact. He has 5/5 muscle strength in all groups. Sensation is grossly intact. IMPRESSION: A 72-year-old male requiring screening colonoscopy. PLAN: We will proceed to the endoscopy suite for screening colonoscopy. D: Radha Angel MD TD: 11/13/17 8:37 JOB #: [id number] Transcribed by: lopez Page 1 of 2 TABATHA PENNY S History & Physical Electronically signed by: E-SIGN DR. ANGEL 11/25/17 08:18 Update to H&P: [ ] No changes: I have examined the patient and reviewed the H&P and there are no changes. [ ] As previously dictated with the following changes: PHYSICIAN SIGNATURE: TIME: DATE: Page 2 of 2 TABATHA PENNY History & Physical FINAL SURGICAL Observed: 11/13/2017 Status: F Source: [facility] PATHOLOGY REPORT 7:35 AM [facility] REPOSITORY . Pathology Reports Accession: Collected Date/Time: Received Date/Time: Pathologist: [id number] 11/13/2017 07:35 EDT 11/14/2017 07:35 EDT MD KWASI VALLADARES Final Surgical Pathology Report DIAGNOSIS: CECUM, POLYPECTOMY: - TUBULAR ADENOMA. COMMENT: [facility]# [id number] CLINICAL INFORMATION: SCREENING SPECIMEN: A POLYP, CECUM GROSS DESCRIPTION: Received in formalin labeled with the patient's name is a 0.3 cm hammer glistening soft tissue. TS -1 Dictated by MATT OSBORNE ([facility]) MICROSCOPIC DESCRIPTION: Slides reviewed. Electronically Signed by Pathology Report verified by [facility] Electronically signed by KWASI VALLADARES MD Sign out Date: 11/17/2017 14:09 Performing Lab: [address] Performed By: #### SPFR #### [place] [address] CARDIOLOGY VISIT Observed: 11/05/2017 Status: F Source: [facility] 8:22 AM [facility] [facility] [place] [address] OFFICE VISIT Date of Service: 11/03/17 MR#: [id number] Acct: [id number] Name: TABATHA PENNY Rep #: [id number] : 1945 Provider: Naya Garcia Age/Sex: 72/M Location: [facility] Status: Signed HPI HPI Details: TABATHA PENNY, is a 72 M who presents to the office today for a cardiovascular follow up. He has a history of coronary artery disease with stenting to his RCA in 2013 and stenting to his proximal LAD and mid RCA in 2014. He also has a history of hypertension, hyperlipidemia and CVA. He was diagnosed with VANDANA and is using a CPAP. From a cardiac standpoint, patient is doing well. He does not have any chest discomfort/heaviness/tightness. His exercise tolerance is stable for his age. He exercises 3 times a week. He does not have any worsening symptoms of shortness of breath. He denies any PND. He does not have any orthopnea. He does not have any symptoms of congestive heart failure. He does not have any palpitations that he is aware of. He does occasionally have postional dizziness. He does not have any near-syncope or syncope. He does not have any lower extremity edema. He does not have any symptoms of claudication. Intake Vital Signs11/03/17 Height 5 ft 9 in 11/03/17 Weight: 197 lb 11/03/17 Body Mass Index (BMI) 29.0 11/03/17 Blood Pressure 140/80 11/03/17 Blood Pressure Location Lt brachial Intake Visit Reasons: 6 M Guide [place] Required: No Accompanied by: Is patient in pain?: No Allergies Penicillins Allergy (Verified 11/03/17 09:58) Unknown Medications Aspirin [Ecotrin] 81 mg PO DAILY 03/02/14 [History Confirmed 11/03/17] Clopidogrel Bisulfate [Plavix] 75 mg PO DAILY 03/02/14 [History Confirmed 11/03/17] Losartan Potassium [Cozaar] 50 mg PO DAILY 03/02/14 [History Confirmed 11/03/17] Metoprolol Tartrate [Lopressor (beta tami)] 50 mg PO BID 03/02/14 [History Confirmed 11/03/17] Nitroglycerin [Nitrostat] 0.4 mg SUBLINGUAL Q5M PRN 03/02/14 [History Confirmed 11/03/17] [place]-3 Fatty Acids [Fish Oil] 300 mg PO DAILY 03/02/14 [History Confirmed 11/03/17] Atorvastatin Calcium [Lipitor] 40 mg PO QHS #30 10/18/14 [Rx Confirmed 11/03/17] Ejection fraction %: 60 to 64 PFSH Medical History VANDANA (obstructive sleep apnea) (Chronic) CVA (cerebral vascular accident) (Chronic) Diastolic dysfunction (Chronic) Hyperlipidemia (Chronic) Acquired left ventricular hypertrophy (Chronic) Right bundle-branch block (Chronic) Old myocardial infarction (Resolved) Atherosclerotic heart disease of inaja coronary artery without angina pectoris (Chronic) Intractable nausea and vomiting (Resolved) Headache (Resolved) History of TIA (Chronic) Hypertension (Chronic) Coronary artery disease (Chronic) Surgical History History of coronary artery stent placement (Chronic) Family History Brother Diabetes Brother Hypertension Brother Cancer esophageal Brother Hip fracture Sister Diabetes Kidney disease kidney failure Sister Diabetes CAD (coronary artery disease) Hx of CABG Obesity Hyperlipidemia Father CAD (coronary artery disease) Myocardial infarction CHF (congestive heart failure) Daughter Migraine Mother Cancer Lung cancer Myocardial infarction Social History Smoking Status: Former smoker alcohol intake: former substance use type: does not use caffeine: No what type of physical activity do you participate in: bicycling, other details: tredmill frequency: 3-4 times per week duration: 30-45 minutes/day seatbelt use: always do you feel safe at home: Yes ROS Const Const: Negative for weakness, fatigue, fever(s) or headache(s) Eyes Eyes: Negative for blind spots, loss of peripheral vision or transient loss of vision ENT ENT: Negative for headache(s), dizziness, tinnitus or Nosebleed/epistaxis Cardio Chest Pain: No Palpitations: No Edema: None Muscle aches with walking: None Resp Respiratory: Negative for SOB with activity, SOB at rest, SOB orthopnea\SOB lying down or Cough GI GI: Negative nausea, vomiting, heartburn or vomiting blood/hematemesis : Negative for hematuria Musc Musc: Negative for muscle aches/ myalgia Neuro Neuro: Negative for weakness, headache(s), dizziness, near syncope, syncope, lightheadedness or orthostatic symptoms Scotty Hematologic/Lymphatic: Negative for easy bleeding Endo Endo: Negative for fatigue Cardiology Exam Const Appearance: cooperative, no acute distress and well developed Orientation: alert, awake and oriented x3 Head Head: normocephalic and atraumatic Mouth: moist mucous membranes Eyes General: appearance normal, both eyes and all related structures Conjunctivae: conjunctivae normal Pupils: PERRL EOM: EOM intact bilaterally Neck Neck: normal visual inspection, no lymphadenopathy and no JVD Carotids: Negative bruit Neck Mass: Negative Neck mass Chest Chest inspection: normal inspection of the chest, symmetric chest movement and midline sternotomy incision Auscultation: Bilateral: Clear to Auscultation Cardio Palpation: normal PMI Rate: regular rate Rhythm: regular rhythm Heart sounds: S1 normal and S2 normal; negative rub, gallop or murmur GI GI: normal to inspection, soft, no hepatosplenomegaly and bowel sounds present; negative tender Neuro General: alert, awake, oriented x3, CN's II-XI intact bilaterally and moves all extremities Extremities Pulses: Normal: Right Posterior Tibial Pulse, Left Posterior Tibial Pulse, Right Radial Pulse, Left Radial Pulse Lower Extremity Edema: None: Bilateral Psych Psychological: normal affect Supplemental Info Echocardiogram 2015 demonstrated an ejection fraction of 60%. Trivial mitral and tricuspid insufficiency. No obvious intracardiac mass/will lesion port/thrombus identified. Carotid u/s in 2017 demonstrated Mild irregular plague at the proximal right internal carotid with <50% stenosis. Moderate soft plague at the proximal left internal carotid with 50-69% stenosis. Normal flow bilateral external carotids. Patent and antegrade vertebrals bilaterally. Heart cath in 2017 demonstrated Left ventricle: Severe hypokinesis to akinesis of the basal to mid inferior segment with an estimated LVEF 55%. Left main coronary artery: Angiographically normal. Left anterior descending coronary artery: Proximal stent: Patent with no obvious angiographic evidence of in-stent restenosis, Status post the takeoff of the 2nd diagonal branch there is 25% eccentric appearing stenosis . Left circumflex coronary artery: Proximal to mid diffuse 25% appearing stenosis. Right coronary artery: Large dominant vessel, Proximal to mid to distal stents, Proximal to mid: 10-25% eccentric appearing stenosis, Distal stents: Near the termination of the stent: 50% hazy eccentric appearing. He was referred to [place] for possible stenting. This was reviewed by Dr. Mancera and it was felt that this could be treated medically. Assessment AND Plan 1. 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 We recommend that they continue with current aggressive medical management and risk factor modification. 2. Essential hypertension I10 [place] Blood pressure is well controlled on current medications, we do not recommend any changes at this time. 3. Pure hypercholesterolemia E78.00; E78.0 Plan - [place] Adams PCP manages cholesterol. Recent lipid panel demonstrates a triglycerides of 188, total cholesterol 143, HDL 29, LDL 86. Will not make any adjustments. Plan Detail Additional Comments - [place] Adams The above patient was discussed with Dr. Hammonds in Dr. Desai's absence, he agrees with plan of care. Thank you for allowing us to participate in patient's plan of care, if you have any questions please do not hesitate to call. This note was generated using a voice recognition system and there may be incorrect words, spelling or punctuation errors that were not noted when reviewing the office note prior to saving. Follow Up 9 Months (PFM) Coding Level of Care Code Off vis,est,level 3 Diagnoses Atherosclerosis of inaja coronary artery of inaja heart without angina pectoris I25.10 [place] vs. transplanted heart: inaja heart Essential hypertension I10 Hypertension type: essential hypertension Pure hypercholesterolemia E78.00; E78.0 Hyperlipidemia type: pure hypercholesterolemia Coding Level of Care Code Off vis,est,level 3 Diagnoses Atherosclerosis of inaja coronary artery of inaja heart without angina pectoris I25.10 [place] vs. transplanted heart: inaja heart Essential hypertension I10 Hypertension type: essential hypertension Pure hypercholesterolemia E78.00; E78.0 Hyperlipidemia type: pure hypercholesterolemia 11/03/17 1025 <Electronically signed by Naya OSBORNE> Date Naya OSBORNE 11/05/17 0822<Electronically signed by Braden Hammonds MD> Cosigner Signature: Date (if applicable) Braden Hammonds MD CC: TALAT [place] ALLERGIES ALLERGIES DATE TYPE / NAME / CODE REACTION SEVERITY SOURCE CODE 07/08/2018 Drug Penicillins/F0010 Anaphylaxis Unknown [place] Allergy/41 41109(RXNORM) [facility] 0093742([facility]) Repository Drug PENICILLINS Moderate Edson Pomerene Allergy/41 (CLASS)/11033533( ([facility] 2866639(SN RXNORM) Modifier) [facility]) (Qualifier Repository Value) ENCOUNTERS ENCOUNTERS ADMIT/DISCHARGE ACCOUNT ADMITTING ENCOUNTER LOCATION SOURCE NUMBER CLASS 07/09/2018 [id number] Ambulatory BMSBuilding:B [place] 1 [place] Repository 07/08/2018/ [id number] Ambulatory Falguni Falgun[place] 8 8 [facility] ing:CLSPRoom: Repository [id number] 06/30/2018 [id number] Ambulatory Falguni [place] 6 [facility] ing:RAD Repository 06/26/2018 [id number] Ambulatory [place] Falguni 5 [facility] ing:CVS Repository 06/23/2018/ [id number] Ambulatory BMSBuilding:B [place] 8 8 [facility] Repository 06/15/2018/ [id number] FRAN, Ambulatory Edson Pomerene 8 [facility] Repository 04/02/2018/ [id number] [facility] Edson [place] 8 [facility] Repository 11/13/2017/ [id number] MICHAEL, Ambulatory BuildinR Edson Pomerene 8 RADHA waiteom: [address] Repository 11/03/2017/ [id number] Ambulatory BMSBuilding:B [place] 8 9 [facility] Repository 10/31/2017 [id number] Ambulatory BMSBuilding:B [place] 8 [facility] Repository PAYERS PAYERS ENCOUNTER GUARANTOR PAYER SUBSCRIBER SOURCE 07/09/2018 TABATHA S Primary TABATHA S Falguni [id number] TR Insurance:MEDICARE [facility]: [address], PART A BPolicy Number: [id number] [facility] [address]Qjn: [id number] Repository Date:2018-06-30 () 07/09/2018 Secondary TABATHA S Falguni Insurance:MUTUAL OF [facility]: [facility], [facility] Number: [id number] Hospital [id number] Repository Date:1914-45-14SCRJPU [place] [address]YH: 07/09/2018 Tertiary NOT GIVENUNK Falguni Insurance:SELF PAY [facility] Number: Effective Repository Date:2018-07-09 07/08/2018 TABATHA S Primary TABATHA S [place] [id number] TR Insurance:MEDICARE RAINBOWDOB: [address] [facility] olicy Number: [id number] Ana Health Center [address]Znj: [id number] Repository Date:2018-06-30 () 07/08/2018 Secondary TABATHA S Falguni Insurance:MUTUAL OF [facility]: [facility], [facility] Number: [id number] [place] [address] [id number] Repository Date:9199-13-86MTGCRY [place], [place] [address]LZ: 07/08/2018 Tertiary NOT GIVENUNK Falguni Insurance:SELF PAY [facility] Number: Effective Repository Date:2018-06-30 06/30/2018 TABATHA S Primary TABATHA S Falguni [id number] TR Insurance:MEDICARE KINGDOB: [address], PART A [facility] Number: [id number] Ana Health Center [address]Yjp: [id number] Repository Date:2018-06-30 () 06/30/2018 Secondary TABATHA S [place] Insurance:MUTUAL [facility]: [facility], [facility] Number: [id number] Hospital [id number] Repository Date:2892-02-08JKYYMP [place], [place] [address]VT: 06/30/2018 Tertiary NOT GIVENUNK Falguni Insurance:SELF PAY [facility] Number: Effective Repository Date:2018-06-30 06/26/2018 TABATHA S Primary TABATHA S [place] [id number] TR Insurance:MEDICARE RAINBOWDOB: [address], PART A olicy Number: [id number] Ana Health Center [address]Lsi: [id number] Repository Date:2018-06-15 () 06/26/2018 Secondary TABATHA S Falguni Insurance:MUTUAL [facility]: [facility], [facility] Number: [id number] Hospital [id number] Repository Date:9339-28-28IWIOVE [place], [place] [address]KN: 06/26/2018 Tertiary NOT GIVENUNK [place] Insurance:SELF PAY [facility] Number: Effective Repository Date:2018-06-15 06/23/2018 TABATHA S Primary TABATHA Montes De Oca [id number] TR Insurance:MEDICARE [facility]: [address], PART A olicy Number: [id number] Ana Health Center [address]Gcw: [id number] Repository Date:2018-06-15 () 06/23/2018 Secondary TABATHA S Falguni Insurance:M[facility]UAL [facility]: [facility], [facility] Number: [id number] Hospital [id number] Repository Date:3776-46-88MYECER [place], [place] [address]OU: 06/23/2018 Tertiary NOT GIVENUNK [place] Insurance:SELF PAY [facility] Number: Effective Repository Date:2018-06-16 06/15/2018 TABATHA S Primary TABATHA Griffith KINGDOB: Insurance:MEDICARE [facility]: [facility] [id number] [facility] [id number] Hospital TR Number: [address], [id number] [place], [place] [address]Hbj: Date:Plan Name:[facility] [id number] () 06/15/2018 Secondary TABATHA S Edson Griffith Insurance:MUTUAL [facility]: [facility] [id number] Hospital OUTPATIENTPolic [address] Repository Number: [address] [place] [address] [id number] [place] [id number] Date: 04/02/2018 TABATHA S Primary TABATHA PENNYDOB: Insurance:MEDICAREPoli [facility]: [facility] cy Number: [id number] Hospital TR [id number] 21 [facility] Repository [address] [place] [address], Date:Plan Name:[place], [place] [address]Txl: Pr [id number] () 04/02/2018 Secondary TABATHA S Edson Pomerene Insurance:MUTUAL [facility]: [facility] [id number] [place] [address] Repository Number: 262[facility] [id number] Pr [id number] Date: 11/13/2017 TABATHA S Primary TABATHA S [facility]dson [facility]rene [facility] Insurance:[facility]ICARE [facility]: [facility] [id number] Number: 21 [facility] Repository [address] [place] [address] [id number], [place] Date:Plan Name:[facility] [id number]: () 11/13/2017 Secondary TABATHA S Edson Pomerene Insurance:M[facility]UAL [facility]: [facility] [id number] [place] [address] RD Repository Number: [facility] [id number] Pr [id number] Date: 11/03/2017 TABATHA S Primary TABATHA S Falguni [id number] Insurance:MEDICARE [facility]: [facility] PART A BPolicy Number: [id number] Hospital 262[facility] [id number] [place]ository [place] [address]Vvv: Date:2017-07-07 () 11/03/2017 Secondary TABATHA S [place] Insurance:MUTUAL [facility]: [facility] Number: [id number] Hospital [id number] Repository Date:2530-60-32ONPXLN [facility] [place], [place] [address]YM: 11/03/2017 Tertiary NOT GIVENUNK Falguni Insurance:SELF PAY [facility] Number: Effective Repository Date:2017-07-07 10/31/2017 Tabatha S Primary Tabtaha Shama Montes De Oca [id number] Insurance:MEDICARE [facility]: [facility] PART A BPolicy Number: [id number] Hospital [place], [id number] [place] [address]Wzb: Date:2017-10-31 ~21 6 2 () 10/31/2017 Secondary Tabatha Shama Montes De Oca Insurance:[place] [facility]: [facility], [facility] Number: [id number] Hospital [id number] Repository Date:8705-19-27ZJKGPG [place], [place] [address]MI: 10/31/2017 Tertiary NOT GIVENUNK Falguni Insurance:SELF PAY [facility] Number: Effective Repository Date:2017-10-31
== END ==
PROVIDERS: Family Provider Family Medicine; PCP Family Medicine; Referring Provider Physician Assistant Medical; Visit Provider Physician Assistant Medical
DX: I25.119 Atherosclerotic heart disease of native coronary artery with unspecified angina pectoris (principal); R07.9 Chest pain, unspecified; R06.09 Other forms of dyspnea
CPT/HCPCS: 78452; 93017; A9500; A4216; J2785

== ENCOUNTER → 2018-06-30 14:01 | Outpatient (CLI) | payer MEDICARE, OTHER, SELFPAY ==
[2018-06-23 13:03] VITALS: BMI 29.7
--- NOTE | 2018-06-30 14:07 | RAD_ITS ---
STUDY: X-RAY CHEST REASON FOR EXAM: Male, 73 years old. Chest pain with exertion TECHNIQUE: Frontal and lateral views of the chest. COMPARISON: 12/19/2015 FINDINGS: The lungs are clear and expanded. There is no demonstrated pleural abnormality. Normal size heart. Normal mediastinum and [place]. Normal visualized pulmonary arteries. Normal visualized aortic arch and descending thoracic aorta. Normal visualized thoracic spine. There is degenerative osteoarthritis of the bilateral shoulders. There is no demonstrated abnormality of the visualized soft tissue structures of the upper abdomen. RAD/Chest PA and Lateral IMPRESSION: No acute pulmonary findings. Electronically Signed: Edward Mendosa MD at 15:44 EST Tel , Service support ,
== END ==
PROVIDERS: Referring Provider Internal Medicine Cardiovascular Disease; Visit Provider Internal Medicine Cardiovascular Disease
DX: R07.9 Chest pain, unspecified (principal); I25.119 Atherosclerotic heart disease of native coronary artery with unspecified angina pectoris; R06.09 Other forms of dyspnea; R94.39 Abnormal result of other cardiovascular function study; Z95.5 Presence of coronary angioplasty implant and graft
CPT/HCPCS: 71046

== ENCOUNTER 2018-07-08 08:01 | Day surgery (SDC) | payer MEDICARE, OTHER, SELFPAY ==
[2018-06-23 13:03] VITALS: BMI 29.7
[2018-06-30 15:04] LABS: Hematocrit 47.1 % (40-54); Hemoglobin 15.9 g/dl (13.0-16.5); Mean Corp Hgb Conc 33.8 g/gl (32-36); Mean Corpuscular Hgb 31.7 pg (27.0-32.0); Mean Platelet Vol. 10.3 fl (6.2-12.0); Platelet Count 172 K/mm3 (150-450); RBC Distribution Width SD 44.5 fl (35.1-43.9); Red Blood Count 5.01 M/mm3 (4.6-6.2); Scan Indicated on CBC? Y/N NO; White Blood Count 5.8 K/mm3 (4.4-11.0)
[2018-06-30 15:11] LABS: International Normalized Ratio 1.1; Prothrombin Time (Protime)PT. 13.8 SECONDS (11.7-14.9)
[2018-06-30 15:12] LABS: Partial Thromboplast Time 27.3 Seconds (24.1-36.2)
[2018-06-30 15:25] LABS: Anion Gap 7 (5-15); BUN 12 mg/dL (7-18); Calcium,Total 8.7 mg/dL (8.5-10.1); Chloride 105 mmol/L (98-107); EST Glomerular Filtration Rate 78 mL/min (>60); Est Glom Filt Rate - Afr Amer 95 mL/min (>60); Glucose 111 mg/dL (74-106); Potassium 4.3 mmol/L (3.5-5.1); Sodium Level 141 mmol/L (136-145)
[2018-07-07 13:22] VITALS: BMI 29.7
[2018-07-08] VITALS (42 sets, daily range): BP systolic 129–195; BP diastolic 51–84; PULSE 47–66; RESP 11–22; TEMP 36.3–37.1; O2SAT 94–98; BMI 28.4
--- NOTE | 2018-07-08 10:00 | EKG12_ITS ---
Test Reason : Blood Pressure : / mmHG Vent. Rate : 053 BPM Atrial Rate : 053 BPM P-R Int : 334 ms QRS Dur : 130 ms QT Int : 446 ms P-R-T Axes : 039 -59 -28 degrees QTc Int : 418 ms Sinus bradycardia with 1st degree A-V block Left axis deviation Non-specific intra-ventricular conduction block Lateral infarct , age undetermined Inferior infarct (cited on or before 02-NOV-1996) Abnormal ECG When compared with ECG of 19-DEC-2015 02:25, No significant change was found Confirmed by CLAUDIA CORNELIUS, PORTER ([id number]), content editor NASRA SAUCEDO ([id number]) on 07/10/2018 11:08:23 AM Referred By: Demetri Desai Confirmed By:PORTER TAYLOR MD
--- NOTE | 2018-07-08 10:05 | CL.I_ITS ---
Patient Name: TABATHA DOSS Study Date: 07/08/2018 Performing: Kwasi Lazo MD Ht: 68.89 inches 175 cm : 1945 Wt: 200.62 lbs 91 kg Age: 73 Gender: male BSA: 2.07 PROCEDURE(S) PERFORMED [id number] W OR WO PTCA, SINGLE CORONARY ARTERY CLINICAL PROFILE AND CO-MORBIDITIES Indications: Suspected CAD Heart Failure: None Stress/Imaging Stress Test w/SPECT MPI: Yes Result: Positive Stress Test with SPECT MPI: Positive Angina Classification Anginal Classification w/in 2 Weeks: CCS III CAD Presentations: Stable angina. CONCLUSIONS Successful PTCA/JOB of proximal LAD ISR utilizing a 2.5 x 10 Angiosculpt x 2, followed with a 3.0 x 1 6 Promus Syergy, post dilated with a 3.5 and 3.75 x 8 NC balloon; 85%-->0%, no dissection. Pt had id entical Left arm and jaw pain with inflation. Medical management of complex mid LAD/DIAG bifurcating lesion unless or until pt has recurrent angina after maximal medical therapy. RECOMMENDATIONS Highly recommend quitting all tobacco products Follow up with primary area director of home health sales Risk factor modification ASA Indefinitley Plavix for at least 12 months Routine post interventional care Refer for Outpatient Cardiac Rehab Manual sheath removal per protocol Follow up with Dr. Lazo Successful Mynx closure device. Medical management of complex mid LAD/DIAG bifurcating lesion, as well as distal RCA ISR unless or un til pt has recurrent angina after maximal medical therapy. D/w Dr Desai. DESCRIPTION OF PROCEDURE The patient arrived to the procedure lab. The risks and benefits of the procedure as well as a full d escription of our services here and current unavailability of surgical backup were fully explained to the patient and/or their significant other prior to the catheterization. The Timeout was completed, verifying the correct patient and procedure. The patient's procedural site was prepped and draped in the usual fashion. Local anesthetic was given subcutaneously to right groin region with Lidocaine 2% Using a modified Seldinger technique,arterial access was obtained via the right femoral artery, a 4Fr sheath was inserted Left Coronary Artery selective angiography was performed in multiple views using a 4 Fr. JL5 catheter. Right Coronary Artery selective angiography was then performed in multiple vie ws using a 4 Fr. 3DRC catheter. Left Ventriculography was performed in GARDUNO projection using a 4 Fr. P igtail catheter. LV to AO pullback pressures were then recorded.The images were reviewed and options discussed. A decision was then made to proceed with an Intervention, IVUS or other adjunc t procedure. Arterial sheath was exchanged for a 6 Fr Sheath. ebu 3.5 Guide catheter was inserted and engaged into the LCA. bmw Guide wire was advanced to the LAD. angiosculpt 2.5 x 10 Balloon catheter was advan ariel across lesion in the LAD, proximal. Angiogram performed post balloon dilatation. synergy 3.00 x 1 6 Drug Eluting stent was advanced across the lesion in the LAD, proximal. nc emerge 3.00 x 8 Balloon catheter was inserted post stent. Angiogram performed post balloon dilatation. nc emerge 3.75 x 8 Bal loon catheter was inserted post stent. Angiogram performed post balloon dilatation. Contrast was inje cted through the sheath and the Right Iliac and Femoral artery were assessed for possible closure dev ice. The arterial sheath was pulled and a Mynx closure device was deployed for hemostasis INTERVENTION INFORMATION LESION SITE: LAD (Proximal) Lesion Complexity: Non-High/Non-C, lesion at bifurcation: No, thrombus present: No, lesion length: 16 mm, culprit lesion: Yes, In-stent restenosis: Yes Pre Stenosis: 85 % Pre intervention GUS flow: 3 PROCEDURE: Drug Eluting Stent with pre and post dilatation Post Stenosis: 0 % Post intervention GUS flow: 3 Lesion Devices: Terence Sci NC EMERGE MR 3.50x08 BALLOON Terence Sci Synergy MR JOB 3.00x16 Terence Sci NC EMERGE MR 3.75x08 BALLOON Cellfirenetics Angiosculpt RX 2.5x10 Scoring Balloon COMPLICATIONS No Complications PROCEDURE MEDICATIONS Versed 1 mg IV Oxygen: 2 L/min via nasal cannula Heparin 6000 unit(s) IV 07/08/2018 09:17:19 Nitro 200 mcg IC 07/08/2018 09:18:46 Nitro drip infusing at 5 mcg ^FreeText^ 07/08/2018 09:25:25 Nitro drip increased to 10 mcg ^FreeText^ 07/08/2018 09:39:59 SUMMARY OF HEMODYNAMIC DATA Time AIR REST ECG 08:21:22 AO 144/70 (98) SA 08:54:01 LV 170/21, 33 09:00:22 LV 171/14, 26 09:00:28 LV 167/15, 32 09:01:25 LV 171/12, 28 09:01:32 LVp 175/10, 09:01:41 AOp 176/71 (109) 09:01:46 RM AIR REST 09:55:54 Signed By Kwasi Lazo MD On 07/08/2018 10:05:08 Kwasi Lazo MD
[2018-07-08 10:11] LABS: ACT Activated Clotting Time 186 sec (74-137)
[2018-07-08] MEDS: 0.9% Normal Saline 1,000 ML 150 ML IV (10:38)
--- NOTE | 2018-07-08 11:19 | CRPHASE1 ---
Patient Data/Charges Phase II Referral:: [facility] Jany MAYS SAYS THAT HE DOESN'T FEEL HE NEEDS CR - BEEN HERE BEFORE Start Phase II:: FOLLOWING CARDIOLOGY OFFICE VISIT Risk Factors/Lifestyle Smoking Status: Former smoker Hx Hypertension: Yes Hx Diabetes Mellitus Type 1: No Hx Diabetes Mellitus Type 2: No Hx Metabolic Disorders: Yes Hx Dyslipidemia: Yes Hx Obesity: Yes Height: 5 ft 9 in - BMI 29.7 Stress: Home/Family Risk Factor for Sedentary Lifestyle: Moderate Risk Family History: Family History (Last Reviewed 06/23/18 @ 13:15 by Leticia Franco) Brother Diabetes Brother Hypertension Brother Cancer Brother Hip fracture Sister Diabetes Kidney disease Sister Diabetes CAD (coronary artery disease) Hx of CABG Obesity Hyperlipidemia Father CAD (coronary artery disease) Myocardial infarction CHF (congestive heart failure) Daughter Migraine Mother Cancer Myocardial infarction Family History: Cancer, Diabetes, Heart Disease Past Cardiac Illness: Coronary Artery Disease, Myocardial Infarction, Previous PCI w/Stent Phase I Education Given On:: [place], Nutrition, Antiplatelet medication Issues Affecting Care:: None Knowledge of Condition:: Yes Learning Preferences: Verbal, Written Medical/Surgical History NM:: No VANDANA:: Yes Diabetes:: No Hypertension:: Yes Dyslipidemia:: Yes PTCA:: Yes - X4 Discharge/Home/Social Eval Discharge Disposition: Home
--- NOTE | 2018-07-08 11:23 | CRPHASE1_ITS ---
Patient Data/Charges Phase II Referral:: [facility] Jany MAYS SAYS THAT HE DOESN'T FEEL HE NEEDS CR - BEEN HERE BEFORE Start Phase II:: FOLLOWING CARDIOLOGY OFFICE VISIT Risk Factors/Lifestyle Smoking Status: Former smoker Hx Hypertension: Yes Hx Diabetes Mellitus Type 1: No Hx Diabetes Mellitus Type 2: No Hx Metabolic Disorders: Yes Hx Dyslipidemia: Yes Hx Obesity: Yes Height: 5 ft 9 in - BMI 29.7 Stress: Home/Family Risk Factor for Sedentary Lifestyle: Moderate Risk Family History: Family History (Last Reviewed 06/23/18 @ 13:15 by Leticia Franco) Brother Diabetes Brother Hypertension Brother Cancer Brother Hip fracture Sister Diabetes Kidney disease Sister Diabetes CAD (coronary artery disease) Hx of CABG Obesity Hyperlipidemia Father CAD (coronary artery disease) Myocardial infarction CHF (congestive heart failure) Daughter Migraine Mother Cancer Myocardial infarction Family History: Cancer, Diabetes, Heart Disease Past Cardiac Illness: Coronary Artery Disease, Myocardial Infarction, Previous PCI w/Stent Phase I Education Given On:: Counselor, Nutrition, Antiplatelet medication Issues Affecting Care:: None Knowledge of Condition:: Yes Learning Preferences: Verbal, Written Medical/Surgical History [place]:: No VANDANA:: Yes Diabetes:: No Hypertension:: Yes Dyslipidemia:: Yes PTCA:: Yes - X4 Discharge/Home/Social Eval Discharge Disposition: Home
--- NOTE | 2018-07-08 11:23 | CRPH1.INSTRU ---
General Education CAD and cardiac anatomy and function:: Patient communicates acknowledgment Explanation of diagnoses and procedures:: Patient communicates acknowledgment Sign/Symptoms of HI:: Patient communicates acknowledgment Antiplatelet therapy: Patient communicates acknowledgment Proper use of NTG-SL: Patient communicates acknowledgment Emergency procedures and activation of EMS: Patient communicates acknowledgment Compliance of all prescribed medications: Patient communicates acknowledgment Smoking Recommendations Include:: Previous smoker; encourage continued cessation Nicotine/Smoking Response Code:: Patient communicates acknowledgment Dyslipidemia Patient Dyslipidemia Risk Factors Are:: Total Cholesterol, Triglycerides, HDL, LDL Recommendations Include:: Lipid profile provided, Reviewed NCEP/ATP guidelines, Therapeutic Lifestyle Change dietary guidelines Dyslipidemia Response Code:: Patient communicates acknowledgment Overweight/Obesity Patient Overweight/Obesity Risk Factors Are:: Overweight = 26-29 Recommendations Include:: Weight loss of 5-10%, Reduced calorie diet, Exercise 5-7 times/week Overweight/Obesity:: Patient communicates acknowledgment Hypertension Recommendations Include:: Maintain BP <130/85, DASH dietary guidelines, Decrease/maintain normal body weight, Moderation of ETOH Hypertension:: Patient communicates acknowledgment Heart Disease Patient Heart Disease Risk Factors Are:: Previous cardiac event Heart Disease Response Code:: Patient communicates acknowledgment Diabetes Patient Diabetes Risk Factors Are:: No documented hx of diabetes Metabolic Syndrome Patient Metabolic Syndrome Risk Factors Are [3 of 5]:: Waist circumference > 35 [female] or 40 [male], High triglyceride >150, Hypertension, Low HDL <40 [male] or < 50 [female] Recommendations Include:: Reinforce compliance to risk factor modifications, Encouraged follow-up with Primary Care Physician Metabolic Syndrome Response Code:: Patient communicates acknowledgment Sedentary Patient Sedentary Risk Factors Are:: Lack of regular exercise Recommendations Include:: Aerobic exercise 5-7 times/week for 20-30 minutes continuously, Benefits of regular exercise, Discussed home walking program, Monitored Outpatient Cardiac Rehab Sedentary Response Code:: Patient communicates acknowledgment Stress Recommendations Include:: Identification of stressors, and assessment of coping skills, Stress management techniques Stress Response Code:: Patient communicates acknowledgment
--- NOTE | 2018-07-08 11:24 | CL.D_ITS ---
Patient Name: TABATHA DOSS Study Date: 07/08/2018 Performing: Demetri Desai MD Ht: 68.9 inches 175 cm : 1945 Wt: 200.62 lbs 91 kg Age: 73 Gender: male BSA: 2.07 PROCEDURE(S) PERFORMED QN34-XIW/COR/LV MI50-XNZ W OR WO PTCA, SINGLE CORONARY ARTERY CLINICAL PROFILE AND INDICATIONS Indications: Suspected CAD Heart Failure: None Stress/Imaging Stress Test w/SPECT MPI: Yes Result: PositiveStress Test with SPECT MPI: Positive Angina Classification Anginal Classification w/in 2 Weeks: CCS III CAD Presentations: Stable angina. CONCLUSIONS Elevated Left Ventricular End Diastolic Pressure left ventricula regional wall motion abnormalities with overall preserved LV systolic function LVEF: by LV gram 55 % LAD: stent: patent with eccentric 85% instent restenosis RCA: near the termination of the stent: hazy 50% stenosis RECOMMENDATIONS Medical therapy Risk factor modification Medical therapy Referred for immediate PCI DESCRIPTION OF PROCEDURE The patient arrived to the procedure lab. The risks and benefits of the procedure as well as a full d escription of our services here and current unavailability of surgical backup were fully explained to the patient and/or their significant other prior to the catheterization. The Timeout was completed, verifying the correct patient and procedure. The patient's procedural site was prepped and draped in the usual fashion. Local anesthetic was given subcutaneously to right groin region with Lidocaine 2%. Using a modified Seldinger technique, arterial access was obtained via the right femoral artery, a 4 Fr sheath was inserted Left Coronary Artery selective angiography was performed in multiple views us ing a 4 Fr. JL5 catheter. Right Coronary Artery selective angiography was then performed in multiple views using a 4 Fr. 3DRC catheter. Left Ventriculography was performed in GARDUNO projection using a 4 Fr . Pigtail catheter. LV to AO pullback pressures were then recorded.Contrast was injected through the sheath and the Right Iliac and Femoral artery were assessed for possible closure device.T he arterial sheath was pulled and a Mynx closure device was deployed for hemostasis CORONARY ANGIOGRAPHY DOMINANCE: Right Dominant LEFT HEART ASSESSMENT Left Ventricular Ejection Fraction: by LV Gram 55 % Inferior Mid: severe hypokinesis to akinesis Elevated Left Ventricular End Diastolic Pressure LVEDP: 26 mmHg LEFT MAIN: Angiographically normal LEFT ANTERIOR DECENDING ARTERY: PROX LAD: Previously placed stent has an instent eccenctric 85 % restenosis MID LAD: s/p the take off of DX2 there is 25% eccentric appearing stenosis DIAGONAL 1: Small Caliber Vessel: Proximal - 25-50 % Stenosis CIRCUMFLEX ARTERY: PROX CIRC: mild luminal irregularities MID CIRC: diffuse: eccentric: 10-25 % Stenosis RIGHT CORONARY ARTERY: mid to distal stents: patent with 10-25% eccentric appearing stenosis near the termination of the distal stent: hazy 50% stenosis PROX RCA: Mild luminal irregularities VALVE FINDINGS: Normal Aortic Valve function Normal Mitral Valve function AORTIC ROOT: Angiographically normal COMPLICATIONS No Complications PROCEDURE MEDICATIONS Versed 1 mg IV Oxygen: 2 L/min via nasal cannula Heparin 6000 unit(s) IV 07/08/2018 09:17:19 Nitro 200 mcg IC 07/08/2018 09:18:46 Nitro drip infusing at 5 mcg ^FreeText^ 07/08/2018 09:25:25 Nitro drip increased to 10 mcg ^FreeText^ 07/08/2018 09:39:59 SUMMARY OF HEMODYNAMIC DATA Time AIR REST ECG 08:21:22 AO 144/70 (98) SA 08:54:01 LV 170/21, 33 09:00:22 LV 171/14, 26 09:00:28 LV 167/15, 32 09:01:25 LV 171/12, 28 09:01:32 LVp 175/10, 26 09:01:41 AOp 176/71 (109) 09:01:46 RM AIR REST 09:55:54 Signed By Demetri Desai MD On 07/08/2018 11:23:48 Demetri Desai MD
[2018-07-08] MEDS: Losartan Potassium 50 MG Tablet PO ×2 (13:22→22:05)
[2018-07-08] MEDS: Acetaminophen 325 MG Tablet 650 MG PO ×2 (14:37→22:06)
[2018-07-08] MEDS: amLODIPine 2.5 MG Tablet PO (18:21)
[2018-07-08] MEDS: Metoprolol Tartrate 50 MG Tablet PO (22:05)
[2018-07-08] MEDS: Atorvastatin Calcium 80 MG Tablet PO (22:09)
[2018-07-09] VITALS (43 sets, daily range): BP systolic 116–221; BP diastolic 31–93; PULSE 52–66; RESP 7–21; TEMP 36.6–37; O2SAT 92–100
[2018-07-09] MEDS: amLODIPine 5 MG Tablet PO (00:17)
[2018-07-09] MEDS: 0.9% NaCl Peripheral Flush Adult/Peds IV (00:32)
[2018-07-09 05:26] LABS: Hemoglobin 14.6 g/dl (13.0-16.5); Mean Corp Hgb Conc 34.8 g/gl (32-36); Mean Corpuscular Hgb 32.1 pg (27.0-32.0); Mean Corpuscular Volume 92.3 fL (80-94); Mean Platelet Vol. 9.9 fl (6.2-12.0); Platelet Count 182 K/mm3 (150-450); RBC Distribution Width CV 12.6 % (11.6-14.6); RBC Distribution Width SD 41.6 fl (35.1-43.9); Red Blood Count 4.55 M/mm3 (4.6-6.2); White Blood Count 7.4 K/mm3 (4.4-11.0)
[2018-07-09 05:27] LABS: Scan Indicated on CBC? Y/N NO
[2018-07-09 05:31] LABS: Anion Gap 8 (5-15); BUN 14 mg/dL (7-18); BUN/Creat Ratio 15.5 RATIO (10-20); Calcium,Total 8.4 mg/dL (8.5-10.1); Chloride 108 mmol/L (98-107); EST Glomerular Filtration Rate 88 mL/min (>60); Est Glom Filt Rate - Afr Amer 106 mL/min (>60); Estimated Creatinine Clearance 74.19 ml/min; Glucose 102 mg/dL (74-106); Potassium 4.1 mmol/L (3.5-5.1); Sodium Level 143 mmol/L (136-145)
[2018-07-09] MEDS: Losartan Potassium 50 MG Tablet PO (08:09)
--- NOTE | 2018-07-09 09:52 | PCM.DC ---
- Discharge Diagnoses Current Active Problems: Angina pectoris; CAD; status post LAD PCI Reason(s) for Visit for Discharge Instructions: Angina pectoris; abnormal stress nuclear imaging study; CAD; status post remote PCI You will use the following diet at home:: Cardiac Your food should be the consistency of: Regular Discharge Activity: May Drive - May not drive x48 hours, May Shower - May shower today May resume sexual activity in: 2 weeks Weight Bearing Status: - - Avoid heavy lifting/exertional activity until 07/13/2018 barring unforeseen circumstances Call your doctor if your incision/area has: Continuous Slow Oozing, Sudden Increased Bleeding, Increased Pain/ Swelling, Increased Redness, Foul Smelling Discharge, Swelling at the incision site Call your doctor if you observe: Fever of 101 or Higher, Shortness of breath, Dizziness, Fainting spells, Swelling in the ankles, Chest pain Cleanse incision/area with: Soap & Water Additional Instructions: Medication alterations: Change metoprolol Tartrate from 50 mg by mouth twice daily to 25 mg by mouth twice daily. Change atorvastatin from 40 mg by mouth daily to 80 mg by mouth daily. Initiate amlodipine at 2.5 mg by mouth daily Allergies/Adverse Reactions: Allergies Penicillins Allergy (Verified 07/08/18 11:37) Anaphylaxis hives and asystole Medications to take at Discharge Aspirin [Ecotrin] 81 mg PO DAILY 03/02/14 Clopidogrel Bisulfate [Plavix] 75 mg PO DAILY 03/02/14 Losartan Potassium [Cozaar] 50 mg PO DAILY 03/02/14 Nitroglycerin [Nitrostat] 0.4 mg SUBLINGUAL Q5M PRN 03/02/14 [place]-3 Fatty Acids [Fish Oil] 300 mg PO DAILY 03/02/14 Pantoprazole Sodium [Protonix] 40 mg PO DAILY 07/08/18 Vitamin E 400 units PO DAILY 07/08/18 Amlodipine [Norvasc] 2.5 mg PO DAILY #30 tablet 07/09/18 Aspirin E.C. [Ecotrin] 81 mg PO DAILY@0800 tablet 07/09/18 Atorvastatin Calcium [Lipitor] 80 mg PO QHS #30 tablet 07/09/18 Metoprolol Tartrate [Lopressor (beta tami)] 25 mg PO BID #60 tablet 07/09/18 Nitroglycerin [Nitrostat] 0.4 mg SUBLINGUAL Q5M PRN tablet 07/09/18 The following prescriptions were given: Amlodipine [Norvasc] 2.5 mg PO DAILY #30 tablet Atorvastatin Calcium [Lipitor] 80 mg PO QHS #30 tablet Metoprolol Tartrate [Lopressor (beta tami)] 25 mg PO BID #60 tablet Primary Care Physician: Care Physician,No Primary [Primary Care Provider] - Test Results: Test results from this visit will be discussed in further detail at your follow-up appointment, if applicable. Please Follow Up With: Demetri Desai MD When: [facility] office to arrange follow up Proposed Discharge Date: 07/09/18
--- NOTE | 2018-07-09 09:56 | DCINST_ITS ---
- Discharge Diagnoses Current Active Problems: Angina pectoris; CAD; status post LAD PCI Reason(s) for Visit for Discharge Instructions: Angina pectoris; abnormal stress nuclear imaging study; CAD; status post remote PCI You will use the following diet at home:: Cardiac Your food should be the consistency of: Regular Discharge Activity: May Drive - May not drive x48 hours, May Shower - May shower today May resume sexual activity in: 2 weeks Weight Bearing Status: - - Avoid heavy lifting/exertional activity until 07/13/2018 barring unforeseen circumstances Call your doctor if your incision/area has: Continuous Slow Oozing, Sudden Increased Bleeding, Increased Pain/ Swelling, Increased Redness, Foul Smelling Discharge, Swelling at the incision site Call your doctor if you observe: Fever of 101 or Higher, Shortness of breath, Dizziness, Fainting spells, Swelling in the ankles, Chest pain Cleanse incision/area with: Soap & Water Additional Instructions: Medication alterations: Change metoprolol Tartrate from 50 mg by mouth twice daily to 25 mg by mouth twice daily. Change atorvasta tin from 40 mg by mouth daily to 80 mg by mouth daily. Initiate amlodipine at 2.5 mg by mouth daily Allergies/Adverse Reactions: Allergies Penicillins Allergy (Verified 07/08/18 11:37) Anaphylaxis hives and asystole Medications to take at Discharge Aspirin [Ecotrin] 81 mg PO DAILY 03/02/14 Clopidogrel Bisulfate [Plavix] 75 mg PO DAILY 03/02/14 Losartan Potassium [Cozaar] 50 mg PO DAILY 03/02/14 Nitroglycerin [Nitrostat] 0.4 mg SUBLINGUAL Q5M PRN 03/02/14 [place]-3 Fatty Acids [Fish Oil] 300 mg PO DAILY 03/02/14 Pantoprazole Sodium [Protonix] 40 mg PO DAILY 07/08/18 Vitamin E 400 units PO DAILY 07/08/18 Amlodipine [Norvasc] 2.5 mg PO DAILY #30 tablet 07/09/18 Aspirin E.C. [Ecotrin] 81 mg PO DAILY@0800 tablet 07/09/18 Atorvastatin Calcium [Lipitor] 80 mg PO QHS #30 tablet 07/09/18 Metoprolol Tartrate [Lopressor (beta tami)] 25 mg PO BID #60 tablet 07/09/18 Nitroglycerin [Nitrostat] 0.4 mg SUBLINGUAL Q5M PRN tablet 07/09/18 The following prescriptions were given: Amlodipine [Norvasc] 2.5 mg PO DAILY #30 tablet Atorvastatin Calcium [Lipitor] 80 mg PO QHS #30 tablet Metoprolol Tartrate [Lopressor (beta tami)] 25 mg PO BID #60 tablet Primary Care Physician: Care Physician,No Primary [Primary Care Provider] - Test Results: Test results from this visit will be discussed in further detail at your follow- up appointment, if applicable. Please Follow Up With: Demetri Desai MD When: [facility] office to arrange follow up Proposed Discharge Date: 07/09/18
--- NOTE | 2018-07-09 09:57 | PCM.DC.SUM ---
Discharge Date and Diagnosis Date of Admission: 07/08/18 Date of Discharge: 07/09/18 - Primary Discharge Diagnosis Angina pectoris; abnormal stress nuclear imaging study; CAD; status post LAD PCI - Secondary Discharge Diagnosis Chronic Problems (Last Updated 11/03/17 @ 09:53 by Tiesha Cleveland) S/P coronary artery stent placement (Chronic ~07/08/18) AAA (abdominal aortic aneurysm) (Chronic) VANDANA (obstructive sleep apnea) (Chronic) CVA (cerebral vascular accident) (Chronic) History of coronary artery stent placement (Chronic) PTCA OF RCA 02/06, PTCA of proximal LAD & mid RCA 09/10 Angina pectoris (Chronic) Diastolic dysfunction (Chronic) Hyperlipidemia (Chronic) Acquired left ventricular hypertrophy (Chronic) Right bundle-branch block (Chronic) Atherosclerotic heart disease of [place] coronary artery without angina pectoris (Chronic) History of TIA (Chronic) Hypertension (Chronic) Coronary artery disease (Chronic) Status post 4 stents, following with Dr. Desai [facility] Course and Treatment Operations: None Procedures: Cardiac catheterization - Cardiac intervention: LAD PCI Summary of Care Provided: The patient is a 73 year old with a past medical history of CAD status post remote PCI who presented for evaluation with angina pectoris and an abnormal stress nuclear imaging study for further evaluation with diagnostic cardiac catheterization. The patient underwent diagnostic cardiac catheterization (please the official report) demonstrating LAD in-stent restenosis. The patient subsequently underwent LAD PCI. The patient was monitored in the ICU overnight. He remained symptomatically stable. He had no obvious pulse procedure related complications. His medications were adjusted. On 07/09/2018 that was felt the patient could be released home for continued outpatient cardiovascular follow up. [] Subjective: The patient is awake and alert with no acute complaints or concerns. - Physical Exam General: Alert, Oriented x3, Cooperative, No apparent distress HEENT: Atraumatic, PERRLA, EOMI, Normocephalic Oral: Moist Mucosa Neck: Supple, No JVD Lungs: Clear to auscultation Cardiovascular: Regular rate, Normal S1, Normal S2 Abdomen: Bowel Sounds Present, Soft Extremities: No clubbing, No cyanosis, No edema, - - Right inguinal area: Right femoral artery pulse: 2+/4+; no hematoma; slight ecchymosis Neurological: Neuro grossly intact Vital Signs Temp Pulse Resp BP Pulse Ox 97.9 F 59 L 13 120/38 L 94 07/09/18 04:00 07/09/18 07:15 07/09/18 06:00 07/09/18 06:00 07/09/18 06:00 Oxygen Delivery Method Room Air Weight: 187 lb 6.287 oz Body Mass Index (BMI) 28.4 Finger Stick Blood Glucose 102 Intake and Output for Last 24 Hours 07/07/18 07/08/18 07/09/18 23:59 23:59 23:59 Intake Total 1857 / 1857 400.2 / 400.2 Output Total 1050 / 1050 975 / 975 Balance 807 / 807 -574.8 / -574.8 Laboratory Tests Past 24 Hrs 07/08/18 07/09/18 07/09/18 09:38 05:00 05:00 WBC 7.4 RBC 4.55 L Hgb 14.6 Hct 42.0 MCV 92.3 MCH 32.1 H MCHC 34.8 RDW 12.6 RDW Differential 41.6 Plt Count 182 MPV 9.9 Activated Clotting Time 186 H Sodium 143 Potassium 4.1 Chloride 108 H Carbon Dioxide 27.0 Anion Gap 8 BUN 14 Creatinine 0.90 Estim Creat Clear Calc 74.19 Est GFR (MDRD) Af Amer 106 Est GFR (MDRD) Non-Af 88 BUN/Creatinine Ratio 15.5 Glucose 102 Calcium 8.4 L Discharge Activity: May Drive - May not drive x48 hours, May Shower - May shower today May resume sexual activity in: 2 weeks Weight Bearing Status: - - Avoid heavy lifting/exertional activity until 07/13/2018 barring unforeseen circumstances Call your doctor if your incision/area has: Continuous Slow Oozing, Sudden Increased Bleeding, Increased Pain/ Swelling, Increased Redness, Foul Smelling Discharge, Swelling at the incision site Call your doctor if you observe: Fever of 101 or Higher, Shortness of breath, Dizziness, Fainting spells, Swelling in the ankles, Chest pain Cleanse incision/area with: Soap & Water Home Medications: Medications to take at Discharge Aspirin [Ecotrin] 81 mg PO DAILY 03/02/14 Clopidogrel Bisulfate [Plavix] 75 mg PO DAILY 03/02/14 Losartan Potassium [Cozaar] 50 mg PO DAILY 03/02/14 Nitroglycerin [Nitrostat] 0.4 mg SUBLINGUAL Q5M PRN 03/02/14 [place]-3 Fatty Acids [Fish Oil] 300 mg PO DAILY 03/02/14 Pantoprazole Sodium [Protonix] 40 mg PO DAILY 07/08/18 Vitamin E 400 units PO DAILY 07/08/18 Amlodipine [Norvasc] 2.5 mg PO DAILY #30 tablet 07/09/18 Aspirin E.C. [Ecotrin] 81 mg PO DAILY@0800 tablet 07/09/18 Atorvastatin Calcium [Lipitor] 80 mg PO QHS #30 tablet 07/09/18 Metoprolol Tartrate [Lopressor (beta tami)] 25 mg PO BID #60 tablet 07/09/18 Nitroglycerin [Nitrostat] 0.4 mg SUBLINGUAL Q5M PRN tablet 07/09/18 Following Prescrptions Were Given to Patient: Amlodipine [Norvasc] 2.5 mg PO DAILY #30 tablet Atorvastatin Calcium [Lipitor] 80 mg PO QHS #30 tablet Metoprolol Tartrate [Lopressor (beta tami)] 25 mg PO BID #60 tablet Primary Care Physician: Care Physician,No Primary [Primary Care Provider] - Please Follow Up With: Demetri Desai MD When: [facility] office to arrange follow up Disposition: Home Minutes spent on discharge:: 45 Patient Condition:: Stable Medical Necessity - Tobacco Use Smoking Status: Former smoker Meaningful Use Info Meaningful Use Diagnoses (Choose all that apply): None applicable
--- NOTE | 2018-07-09 10:00 | EKG12_ITS ---
Test Reason : AM EKG Blood Pressure : / mmHG Vent. Rate : 056 BPM Atrial Rate : 056 BPM P-R Int : 318 ms QRS Dur : 132 ms QT Int : 438 ms P-R-T Axes : 024 -55 -34 degrees QTc Int : 422 ms Sinus bradycardia with 1st degree A-V block Left axis deviation Non-specific intra-ventricular conduction block Lateral infarct , age undetermined Inferior infarct , age undetermined Abnormal ECG When compared with ECG of 08-JUL-2018 10:16, MANUAL COMPARISON REQUIRED, DATA IS UNCONFIRMED Confirmed by CLAUDIA CORNELIUS, PORTER ([id number]), technical editor NASRA SAUCEDO ([id number] on 07/10/2018 11:07:47 AM Referred By: Demetri Desai Confirmed By:PORTER TAYLOR MD
[2018-07-09] MEDS: Aspirin E.C. 81 MG Tablet PO (10:38)
[2018-07-09] MEDS: amLODIPine 2.5 MG Tablet PO (10:39)
[2018-07-09] MEDS: Clopidogrel Bisulfate 75 MG Tablet PO (10:39)
[2018-07-09] MEDS: Metoprolol Tartrate 25 MG Tablet PO (10:39)
--- OUTSIDE RECORDS SUMMARY | 2018-08-24 03:03 | XMS RPT_ITS ---
:1945 Author Organization [place] Support Name Relationship Address Phone ROLAN PENNY Unavailable [address] + [place] [address] R Unavailable Unavailable Unavailable ROLAN PENNY Unavailable [address] + [place] [address] R Unavailable Unavailable Unavailable ROLAN PENNY Unavailable [address] + [place] [address] R Unavailable Unavailable Unavailable ROLAN PENNY Unavailable [address] + [place] [address] R Unavailable Unavailable Unavailable ROLAN PENNY Unavailable [address] + [place] [address] R Unavailable Unavailable Unavailable ROLAN PENNY Unavailable [address] + [place] [address] R Unavailable Unavailable Unavailable ROLAN PENNY Unavailable [address] + [place] [address] R Unavailable Unavailable Unavailable ROLAN PENNY Unavailable [address] + [place] [address] R Unavailable Unavailable Unavailable GRACE PENNY Unavailable Unavailable + ROLAN PENNY Unavailable [address] Unavailable [place], [place] [id number] NOT GIVEN Unavailable Unavailable Unavailable NOT GIVEN Unavailable Unavailable Unavailable GRACE PENNY Unavailable Unavailable + ROLAN PENNY Unavailable [address] Unavailable [place], [place] [id number] NOT GIVEN Unavailable Unavailable Unavailable ROLAN PENNY Unavailable [address] + [place] [address] R Unavailable Unavailable Unavailable ROLAN PENNY Unavailable [address] + [place] [address] R Unavailable Unavailable Unavailable Care Team Providers Name Role Phone RADHA ANGEL Admitting Unavailable RADHA ANGEL Attending Unavailable RADHA ANGEL Primary Care Unavailable JOSE BOYLEA E Consulting Unavailable TAMAR, DOMENIC E Referring Unavailable PROVIDER, UNKNOWN Consulting Unavailable PROVIDER, [...] UNKNOWN Consulting Unavailable PROVIDER, UNKNOWN Consulting Unavailable Demetri Desai Attending Unavailable MoodisDemetri miller Referring Unavailable Primay Care Physicia, No Primary Care Unavailable Demetri Desai Consulting Unavailable Demetri Desai Attending Unavailable Naya Garcia Referring Unavailable Leigh Rick Attending Unavailable Naya Garcia Attending Unavailable Boyle, Domenic Referring Unavailable Boyle, Domenic Primary Care Unavailable Naya Garcia Attending Unavailable Primay Care Physicia, No Referring Unavailable MoodisDemetri miller Attending Unavailable MoodisDemetri miller Referring Unavailable Faizan Fraga Attending Unavailable Sharifa Lake PA-C Referring Unavailable Naya Garcia Attending Unavailable Naya Garcia Referring Unavailable Boyle, Domenic Primary Care Unavailable MoodDemetri wilkins Attending Unavailable Moodispaul Demetri Referring Unavailable Primay Care Physicia, No Primary Care Unavailable MoodisDemetri miller Attending Unavailable Moodispakorey Deemtri Referring Unavailable Primay Care Physicia, No Primary Care Unavailable PROBLEMS PROBLEMS DATE TYPE CONDITION / CODE ATTENDING STATUS SOURCE 07/09/2018 Unknown I25.119 - [place], Active [place] Atherosclerotic [facility] heart disease of Hospital [place] coronary Repository artery with unspecified angina pectoris / I25.119(ICD-10) 07/09/2018 Unknown R06.09 - Other forms [place], Active [place] of dyspnea / [facility] R06.09(ICD-10) Hospital Repository 07/09/2018 Unknown R07.9 - Chest pain, [place], Active [place] unspecified / [facility] R07.9(ICD-10) Hospital Repository 07/09/2018 Unknown R94.39 - Abnormal [place], Active [place] result of other [facility] function study / Repository R94.39(ICD-10) 07/09/2018 Unknown Z95.5 - Presence of [place], Active [place] coronary angioplasty [facility] implant and graft / Hospital Z95.5(ICD-10) Repository 04/02/2018 Principle Encounter for other [place], Active Edson Pomerene Diagnosis preprocedural [facility] / Hospital E56561(ICD-10) Repository PROCEDURES PROCEDURES No Procedure Records FoundRESULTS RESULTS CARDIOLOGY VISIT Observed: 07/23/2018 Status: F Source: MOCA REPORT 12:06 PM COUNT INCLUDES THE [facility] HOSPITAL REPOSITORY [facility]. [address] [place] [address] OFFICE VISIT Date of Service: 07/23/18 MR#: [id number] Acct: [id number] Name: TABATHA PENNY Rep #: [id number] : 1945 Provider: Naya Garcia Age/Sex: 73/M Location: [facility] Status: Signed HPI HPI Details: TABATHA PENNY, is a 73 M who presents to the office today for a cardiovascular follow up. He has a history of coronary artery disease with stenting to his RCA in 2012 and stenting to his proximal LAD and mid RCA in 2013, and recent stenting to his LAD 2 weeks for an abonromal stress with symptoms. He also has a history of hypertension, hyperlipidemia and CVA. He was diagnosed with VANDANA and is using a CPAP. Since being his stenting he is feeling better. He is no longer having arm pain. He would like to go back to exercising at home. He does not want to do cardiac rehab here. He does not have any chest discomfort/heaviness/tightness. His exercise tolerance is stable for his age. He does not have any worsening symptoms [...] does not have any symptoms of claudication. There is a discrepancy with his atorvastatin. He was previously on 20 mg. He is currently taking 40 mg daily. Intake Vital Signs07/23/18 Height 5 ft 8 in 07/23/18 Weight: 197 lb 07/23/18 Body Mass Index (BMI) 29.9 07/23/18 Blood Pressure 138/62 H 07/23/18 Blood Pressure Location Lt brachial Intake Visit Reasons: DC ICU 12- (2 wks) Biology Lecturer Required: No Accompanied by: Is patient in pain?: No Allergies Penicillins Allergy (Verified 07/23/18 11:24) Anaphylaxis Medications Clopidogrel Bisulfate [Plavix] 75 mg PO DAILY 03/02/14 [History Confirmed 07/23/18] Losartan Potassium [Cozaar] 50 mg PO DAILY 03/02/14 [History Confirmed 07/23/18] [place]-3 Fatty Acids [Fish Oil] 300 mg PO DAILY 03/02/14 [History Confirmed 07/23/18] Pantoprazole Sodium [Protonix] 40 mg PO DAILY 07/08/18 [History Confirmed 07/23/18] Vitamin E 400 units PO DAILY 07/08/18 [History Confirmed 07/23/18] Amlodipine [Norvasc] 2.5 mg PO DAILY #30 tab 07/09/18 [Rx Confirmed 07/23/18] Aspirin E.C. [Ecotrin] 81 mg PO DAILY@0800 tab 07/09/18 [Rx Confirmed 07/23/18] Metoprolol Tartrate [Lopressor (beta tami)] 25 mg PO BID #60 tab 07/09/18 [Rx Confirmed 07/23/18] Nitroglycerin [Nitrostat] 0.4 mg SUBLINGUAL Q5M PRN tab 07/09/18 [Rx Confirmed 07/23/18] atorvastatin 40 mg tablet 40 mg PO QHS #90 tab 07/23/18 [Rx Confirmed 07/23/18] PFSH Medical History VANDANA (obstructive sleep apnea) (Chronic) CVA (cerebral vascular accident) (Chronic) Diastolic dysfunction (Chronic) Hyperlipidemia (Chronic) Acquired left ventricular hypertrophy (Chronic) Right bundle-branch block (Chronic) Old myocardial infarction (Resolved) Atherosclerotic heart disease of [place] coronary artery without angina pectoris (Chronic) Intractable nausea and vomiting (Resolved) Headache (Resolved) History of TIA (Chronic) Hypertension (Chronic) Coronary artery disease (Chronic) Surgical History S/P coronary artery stent placement (Chronic 12/12/18) History of coronary artery stent placement (Chronic) [...] Chest Chest inspection: normal inspection of the chest and symmetric chest movement Auscultation: Bilateral: Clear to Auscultation Cardio Palpation: [...] Edema: None: Bilateral Psych Psychological: normal affect Assessment AND Plan 1. Atherosclerosis of [place] coronary artery of [place] heart with angina pectoris I25.119 Plan Stable, from a cardiac standpoint patient does not have any symptoms of angina. We recommend that they continue with current aggressive medical management and risk factor modification. Patient wishes not to attend cardiac rehab. He will exercise at home. 2. Essential hypertension I10 Plan Blood pressure is well controlled on current medications, we do not recommend any changes at this time. 3. Pure hypercholesterolemia E78.00 Plan Patient will continue with moderate intensity statin. This is being managed by his primary care doctor. This was recently increased from low intensity statin. Plan Detail Other Medications Changed: Additional Comments Thank you for allowing us to participate in patient's plan of care, if you have any questions please do not hesitate to call. This note was generated using a voice recognition system and there may be incorrect words, spelling or punctuation errors that were not noted when reviewing the office note prior to saving. Follow Up 07/23/18 (keep as is) Coding Level of Care Code Off vis,est,level 3 Diagnoses Atherosclerosis of [place] coronary artery of [place] heart with angina pectoris I25.119 Coronary Disease-Associated Artery/Lesion type: [place] artery Essential hypertension I10 Hypertension type: essential hypertension Pure hypercholesterolemia E78.00 Hyperlipidemia type: pure hypercholesterolemia Coding Level of Care Code Off vis,est,level 3 Diagnoses Atherosclerosis of [place] coronary artery of [place] heart with angina pectoris I25.119 Coronary Disease-Associated Artery/Lesion type: [place] artery Essential hypertension I10 Hypertension type: essential hypertension Pure hypercholesterolemia E78.00 Hyperlipidemia type: pure hypercholesterolemia 07/23/18 1206 <Electronically signed by Naya OSBORNE> Date Naya OSBORNE Cosigner Signature: Date (if applicable) CC: No Primary Care Physician 12 LEAD ELECTROCARDIOGRAM Observed: 07/10/2018 Status: F Source: [place] 11:08 AM [facility] REPOSITORY [facility] Cardiovascular Services [address] [place] [address] 12 Lead EKG 07/09/18 0521 MR#: [id number] Acct: [id number] Name: TABATHA PENNY Rep #: [id number] : 1945 73 From: Braden Hammonds MD Attending Dr: Demetri Desai MD Status: [facility] Ordering Dr: Kwasi Lazo MD Date: 07/09/18 Location: [facility] Sex: M C Admitted: Test Reason [...] COMPARISON REQUIRED, DATA IS UNCONFIRMED Confirmed by CLAUDIA CORNELIUS, BRADEN ([id number]), pictures editor NASRA SAUCEDO ([id number]) on 07/10/2018 11:07:47 AM Referred By: Demetri Desai Confirmed By:BRADEN HAMMONDS MD 07/10/18 1107 Date Braden Hammonds MD CC: No Primary Care Physician; Kwasi Lazo MD; Demetri Desai MD Signed 12 LEAD ELECTROCARDIOGRAM Observed: 07/10/2018 Status: F Source: FALG[place]I 11:08 AM [facility] REPOSITORY [facility] Cardiovascular Services [address] [place] [address] 12 Lead EKG 07/08/18 1016 MR#: [id number] Acct: [id number] Name: TABATHA PENNY Rep #: [id number] : 1945 73 From: Braden Hammonds MD Attending Dr: Demetri Desai MD Status: [facility]P [facility] Ordering Dr: Kwasi Lazo MD Date: 07/08/18 Location: [facility] Sex: M C Admitted: Test Reason [...] No significant change was found Confirmed by CLAUDIA CORNELIUS, BRADEN ([id number]), pictures editor NASRA SAUCEDO (56) on 07/10/2018 11:08:23 AM Referred By: Demetri Desai Confirmed By:BRADEN HAMMONDS MD 07/10/18 1108 Date Braden Hammonds MD CC: No Primary Care Physician; Kwasi Lazo MD; Demetri Desai MD Signed DISCHARGE SUMMARY Observed: 07/09/2018 Status: F Source: MOCA 10:01 AM [facility] REPOSITORY [facility] Medical Records Department [address] [place] [address] Discharge Summary 07/09/18 0957 MR#: [id number] Acct: [id number] Name: TABATHA PENNY Rep #: [id number] : 1945 73 From: Demetri Desai MD PCP: Care Physician, No Primary Status: [facility] Y Location: ICU [id number] Discharge Date and Diagnosis Date of Admission: [...] bundle-branch block (Chronic) Atherosclerotic heart disease of [place] coronary artery without angina pectoris (Chronic) History of TIA (Chronic) Hypertension (Chronic) Coronary artery disease (Chronic) Status post 4 stents, following with Dr. Desai [facility] Course and Treatment Operations: None [...] [Nitrostat] 0.4 mg SUBLINGUAL Q5M PRN 03/02/14 [place]-3 Fatty Acids [Fish Oil] 300 mg PO [...] Follow Up With: Demetri Desai MD When: [facility] office to arrange follow up Disposition: Home [...] DISCHARGE INSTRUCTION Observed: 07/09/2018 Status: F Source: MOCA 9:57 AM [facility] REPOSITORY [facility] Medical Records Department [address] [facility] [place] [address] Instructions for Home/Discharge Instructions 07/09/18 0952 MR#: [id number] Acct: [id number] Name: TABATHA PENNY Rep #: [id number] : 1945 73 From: Demetri Desai MD [...] [Nitrostat] 0.4 mg SUBLINGUAL Q5M PRN 03/02/14 [place]-3 Fatty Acids [Fish Oil] 300 mg PO [...] Follow Up With: Demetri Desai MD When: [facility] office to arrange follow up Proposed Discharge Date: 07/09/18 07/09/18 0957 <Electronically signed by Demetri Desai MD> Date Demetri Desai MD CC: No Primary Care Physician CBC-COMPLETE BLOOD CNT Collected: 07/09/2018 Status: F Source: FAL[place] NO DIFF 5:00 AM [facility] REPOSITORY TYPE CODE TESTS RESULT OUT OF [...] MPV 9.9 Performed By: #### L100.0500 #### [facility] Laboratory [facility] [place], [address] BASIC METABOLIC Collected: 07/09/2018 Status: F Source: FAL[place]I PROFILE (BMP) 5:00 AM [facility] REPOSITORY TYPE CODE TESTS RESULT OUT OF [...] GAP 8 Performed By: #### L500.2500 #### [facility] [address] [place], [address] ACT ACTIVATED CLOTTING Collected: 07/08/2018 Status: F Source: F[place]I TIME 9:38 AM [facility] REPOSITORY TYPE CODE TESTS RESULT OUT OF RANGE REFERENCE UNITS LAB L9100.0100 74-137 sec High ACTk CLOT 186 TIME Performed By: #### L9100.0100 #### [facility] Laboratory Point of Care [address] [place] [address] CHEST PA AND LATERAL Observed: 06/30/2018 Status: F Source: FALGUNI 2:03 PM COUNT INCLUDES THE [facility] HOSPITAL REPOSITORY [facility] Imaging Services [address] [place] [address] Chest PA and Lateral MR#: [id number] Acct: [id number] Name: TABATHA PENNY Rep #: [id number] : 1945 M 73 From: Edward Mendosa MD PCP: Care Physician, No Primary Status: REG CLI Study: Chest PA and Lateral Date of Exam: 06/30/18 Exam# [id number] Ordering Dr: Demetri Desai MD STUDY: X-RAY [...] No Primary Care Physician; Demetri Desai MD Delivery Motorcycle Driver: Signed CBC-COMPLETE BLOOD CNT Collected: 06/30/2018 Status: F Source: [place] NO DIFF 1:50 PM [facility] REPOSITORY TYPE CODE TESTS RESULT OUT OF [...] MPV 10.3 Performed By: #### L100.0500 #### [facility] [address] [place], [address] PROTHROMBIN TIME W/INR Collected: 06/30/2018 Status: F Source: [place]I 1:50 PM [facility] REPOSITORY TYPE CODE TESTS RESULT OUT OF RANGE REFERENCE UNITS LAB L300.4150 11.7-14.9 SECONDS Normal PROTIME 13.8 LAB L300.4200 Normal INR 1.1 Performed By: #### L300.3900, L300.4310 #### [facility] [address] [place], [address] PARTIAL THROMBOPLAST Collected: 06/30/2018 Status: F Source: [place]I TIME 1:50 PM [facility] REPOSITORY TYPE CODE TESTS RESULT OUT OF RANGE REFERENCE UNITS LAB L300.4310 24.1-36.2 Seconds Normal PTT 27.3 Performed By: #### L300.3900, L300.4310 #### [facility] [address] [place], [address] BASIC METABOLIC Collected: 06/30/2018 Status: F Source: FAL[place]I PROFILE (BMP) 1:50 PM [facility] REPOSITORY TYPE CODE TESTS RESULT OUT OF [...] GAP 7 Performed By: #### L500.2500 #### [facility] [address] [facility] [place], [address] STRESS REPORT Observed: 06/26/2018 Status: F Source: MOCA 2:44 PM [facility] REPOSITORY [facility] Cardiovascular Services [address] [place] [address] MR#: [id number] Acct: [id number] Name: TABATHA PENNY Rep #: [id number] : 1945 73 From: Demetri Desai MD Primary Care: Sharifa Lake PA-C Status: REG CLI Ordering Dr: Sanford Agarwal Stress Test Report Date: 06/26/2018 Procedure: [...] bradycardia; first-degree AV block; right IVCD; inferior WA of indeterminate age; nonspecific ST and T [...] bradycardia; first-degree AV block; right IVCD; inferior WA of indeterminate age; nonspecific ST and T [...] of 65%. This note was generated with [employer] software. It may contain incorrect words, spelling, and punctuation that were not noted in checking the note before signing. 06/26/18 1444 <Electronically signed by Demetri Desai MD> Date Demetri Desai MD CC: TALAT Lake; Domenic Boyle MD; Naya Garcia Date Dictated: 06/26/181433 Date Transcribed: 06/26/181433 Delivery Motorcycle Driver: PM Signed CARDIOLOGY VISIT Observed: 06/23/2018 Status: F Source: MOCA REPORT 1:54 PM [facility] REPOSITORY [facility] [address] [facility] [place] [address] OFFICE VISIT Date of Service: 06/23/18 MR#: [id number] Acct: [id number] Name: TABATHA PENNY Rep #: [id number] : 1945 Provider: CATERINA Fraga Age/Sex: 73/M Location: [facility] Status: Signed HPI HPI Details: TABATHA PENNY, is a 73 M who presents to [...] Location Lt brachial Intake Visit Reasons: LUCIO Biology Lecturer Required: No Accompanied by: None Is patient in pain?: No Allergies Penicillins Allergy (Verified 06/23/18 13:12) Unknown Medications Aspirin [Ecotrin] 81 mg PO DAILY 03/02/14 [History Confirmed 06/23/18] Clopidogrel Bisulfate [Plavix] 75 mg PO DAILY 03/02/14 [History Confirmed 06/23/18] Losartan Potassium [Cozaar] 50 mg PO DAILY 03/02/14 [History Confirmed 06/23/18] Nitroglycerin [Nitrostat] 0.4 mg SUBLINGUAL Q5M PRN 03/02/14 [History Confirmed 06/23/18] [place]-3 Fatty Acids [Fish Oil] 300 mg PO [...] myocardial infarction (Resolved) Atherosclerotic heart disease of [place] coronary artery without angina pectoris (Chronic) Intractable [...] mass/will lesion port/thrombus identified. Carotid u/s in 2016 demonstrated Mild irregular plague at the proximal [...] hazy eccentric appearing. He was referred to [place] for possible stenting. This was reviewed by Dr. Mancera and it was felt that this could be treated medically. Assessment AND Plan 1. Atherosclerosis of [place] coronary artery of [place] heart without angina pectoris I25.10 Plan Patient [...] with 50% stenosis. He was evaluated at [facility] for this and medical management was recommended. [...] Code Off vis,est,level 3 Diagnoses Atherosclerosis of [place] coronary artery of [place] heart without angina pectoris I25.10 [place] vs. transplanted heart: [place] heart History of coronary artery stent placement Z95.5 Dyspnea on exertion R06.09 Essential hypertension I10 Hypertension type: essential hypertension Pure hypercholesterolemia E78.00 Hyperlipidemia type: pure hypercholesterolemia Abdominal aortic aneurysm (AAA) without rupture I71.4 Presence of rupture: without rupture Coding Level of Care Code Off vis,est,level 3 Diagnoses Atherosclerosis of [place] coronary artery of [place] heart without angina pectoris I25.10 [place] vs. transplanted heart: [place] heart History of coronary artery stent placement Z95.5 Dyspnea on exertion R06.09 Essential hypertension I10 Hypertension type: essential hypertension Pure hypercholesterolemia E78.00 Hyperlipidemia type: pure hypercholesterolemia Abdominal aortic aneurysm (AAA) without rupture I71.4 Presence of rupture: without rupture 06/23/18 1354 <Electronically signed by Faizan WELCH> Date Faizan WELCH Cosigner Signature: Date (if applicable) CC: TALAT Lake AORTA Observed: 06/15/2018 Status: F Source: [facility] 8:52 AM [place] [address] Patient: TABATHA PENNY Phone#: : 1945 Age: 73 Gender: M Pt. Type: Out Account: [id number] Location: 2 Ordering: MAKAYLA PETERS Exam Date: 06/15/2018/8:27 Family Phys: Charge Code: 600170 Physician: [place] Order #: [id number] DLP Dose#: PROCEDURE: AORTA ULTRASOUND COMPARISON: None. [...] WITH EGFR Collected: 04/02/2018 Status: F Source: [facility] 11:50 [facility] REPOSITORY TYPE CODE TESTS RESULT OUT OF [...] OF AGE AND OLDER. Performed By: #### [id number] #### [facility],[address] [place] [address] CBC Collected: 04/02/2018 Status: F Source: [facility] 11:50 [facility] REPOSITORY TYPE CODE TESTS RESULT OUT OF [...] 7.10 x10EE3/U L Neut # 3.70 LAB [place] #(LOINC) 0.20 - 1.00 x10EE3/U L [place] # 0.70 LAB EO #(LOINC) 0.00 - 0.50 x10EE3/U L EO # 0.20 LAB Baso #(LOINC) 0.00 - 0.10 x10EE3/U L Baso # 0.10 LAB MANUAL DIFF(LOINC) MANUAL DIFF N/A LAB MORPHOLOGY(LOINC ) MORPHOLOGY N/A Result Comment: {CD] Performed By: #### [id number] #### [facility],[address] [place] [address] OPERATIVE PROCEDURES Observed: 11/25/2017 Status: F Source: [facility] 8:18 AM [facility] OPERATIVE REPORT NAME ACCOUNT SEX AGE ADMIT DISCHARGE PT MED. RECORD# NUMBER DATE DATE TYPE TABATHA PENNY [id number] M 72 11/13/17 2 S [address] ROOM: [facility] DATE OF : 1945 DICTATING PHYSICIAN: Radha Angel DATE OF SURGERY: November 13, 2017 SURGEON: Radha Angel MD BUSINESS INFORMATION ANALYST: ANESTHESIOLOGIST: ANESTHETIC: MAC. PREOPERATIVE DIAGNOSIS: Screening colonoscopy. [...] Angel MD TD: 11/13/17 09:17 JOB #: [id number] Transcribed by: lopez Electronically signed by: E-SIGN DR. ANGEL 11/25/17 08:18 Page 2 of TABATHA HOLLAND Operative Report HISTORY AND PHYSICAL Observed: 11/25/2017 Status: F Source: [facility] EXAM 8:18 AM [facility] HISTORY & PHYSICAL NAME ACCOUNT SEX AGE ADMIT DISCHARGE PT MED. RECORD# NUMBER DATE DATE TYPE TABATHA PENNY [id number] Felipe 72 11/13/17 2 S [address]87 ROOM: [facility] DATE OF : [birth year] DICTATING PHYSICIAN: Radha [...] Angel MD TD: 11/13/17 8:37 JOB #: [id number] Transcribed by: lopez Page 1 of 2 [...] FINAL SURGICAL Observed: 11/13/2017 Status: F Source: [facility] PATHOLOGY REPORT 7:35 AM [facility] EMERGENCY DEPARTMENT REPOSITORY . Pathology Reports Accession: Collected Date/Time: Received Date/Time: Pathologist: [id number] 11/13/2017 07:35 EDT 11/14/2017 07:35 EDT MD KWASI VALLADARES Final Surgical Pathology Report DIAGNOSIS: CECUM, POLYPECTOMY: - TUBULAR ADENOMA. COMMENT: [facility]# [id number] CLINICAL INFORMATION: SCREENING SPECIMEN: A POLYP, CECUM GROSS DESCRIPTION: Received in formalin labeled with the patient's name is a 0.3 cm hammer glistening soft tissue. TS -1 Dictated by MATT OSBORNE ([facility]) MICROSCOPIC DESCRIPTION: Slides reviewed. Electronically Signed by Pathology Report verified by [facility] Electronically signed by KWASI VALLADARES MD Sign out Date: 11/17/2017 14:09 Performing Lab: [facility], [address] [place] [address] Performed By: #### SPFR #### [place] [address] CARDIOLOGY VISIT Observed: 11/05/2017 Status: F Source: [place] REPORT 8:22 AM [facility] REPOSITORY [facility] [address] [place], [place] [address]e. [address] [place] [address] OFFICE VISIT Date of Service: 11/03/17 MR#: [id number] Acct: [id number] Name: TABATHA PENNY Rep #: [id number] : 1945 Provider: Naya Garcia Age/Sex: 72/M Location: [facility] Status: Signed HPI HPI Details: TABATHA PENNY, [...] Lt brachial Intake Visit Reasons: 6 M FU Biology Lecturer Required: No Accompanied by: Is patient in [...] SUBLINGUAL Q5M PRN 03/02/14 [History Confirmed 11/03/17] [place]-3 Fatty Acids [Fish Oil] 300 mg PO [...] myocardial infarction (Resolved) Atherosclerotic heart disease of [place] coronary artery without angina pectoris (Chronic) Intractable [...] hazy eccentric appearing. He was referred to [place] for possible stenting. This was reviewed by Dr. Mancera and it was felt that this could be treated medically. Assessment AND Plan 1. Atherosclerosis of [place] coronary artery of [place] heart without angina pectoris I25.10 Plan - [place] Stable, from a cardiac standpoint patient does not have any symptoms of angina. We recommend that they continue with current aggressive medical management and risk factor modification. 2. Essential hypertension I10 Plan - [place] Blood pressure is well controlled on current [...] Code Off vis,est,level 3 Diagnoses Atherosclerosis of [place] coronary artery of [place] heart without angina pectoris I25.10 [place] vs. transplanted heart: [place] heart Essential hypertension I10 Hypertension type: essential hypertension Pure hypercholesterolemia E78.00; E78.0 Hyperlipidemia type: pure hypercholesterolemia Coding Level of Care Code Off vis,est,level 3 Diagnoses Atherosclerosis of [place] coronary artery of [place] heart without angina pectoris I25.10 [place] vs. transplanted heart: [place] heart Essential hypertension I10 Hypertension type: essential hypertension Pure hypercholesterolemia E78.00; E78.0 Hyperlipidemia type: pure hypercholesterolemia 11/03/17 1025 <Electronically signed by Naya OSBORNE> Date Naya OSBORNE 11/05/17 0822<Electronically signed by Braden Hammonds MD> Cosigner Signature: Date (if applicable) Braden Hammonds MD [facility] ALL[facility]GIES DATE TYPE / NAME / CODE REACTION SEVERITY SOURCE CODE 07/23/2018 Drug Penicillins/F0010 Anaphylaxis Unknown [place] Allergy/41 86968(RXNORM) Formerly [facility] [id number]([facility]) Repository Drug PENICILLINS Moderate Edson Pomerene Allergy/41 (CLASS)/01531025( ([facility] 8040338( RXNORM) Modifier) Hospital [facility]) (Qualifier Repository Value) ENCOUNTERS ENCOUNTERS ADMIT/DISCHARGE ACCOUNT ADMITTING ENCOUNTER LOCATION SOURCE NUMBER CLASS 07/23/2018/ [id number] Ambulatory BMSBuilding:B [place] [address] [facility] Repository 07/09/2018 [id number] Ambulatory BMSBuilding:B [place] [address] Repository 07/08/2018 [id number] Ambulatory BMSBuilding:W [place] [address] [facility] Repository 07/08/2018/ [id number] Ambulatory [place] 8 8 [facility] ing:CLSPRoom: Repository [id number] 06/30/2018 [id number] Ambulatory [place] 6 [facility] ing:RAD Repository 06/26/2018 [id number] Ambulatory BMSBuilding:W [place] 0 [facility] Repository 06/26/2018 [id number] Ambulatory [place] 5 [facility] ing:CVS Repository 06/23/2018/ [id number] Ambulatory BMSBuilding:B [place] [address] [facility] Repository 06/15/2018/ [id number] FRAN Ambulatory Edson [place]ome[place] 8 [facility] Repository 04/02/2018/ [id number] FRAN, Ambulatory Eds[place] 8 [facility] Repository 11/13/2017/ [id number] MICHAEL, Ambulatory BuildinR Edson [place] 8 RADHA cote: [address] Repository 11/03/2017/ [id number] Ambulatory BMSBuilding:B [place] [address] [facility] Repository 10/31/2017 [id number] Ambulatory BMSBuilding:B [place] [address] [facility] Repository PAYERS PAYERS ENCOUNTER GUARANTOR PAYER SUBSCRIBER SOURCE 07/23/2018 TABATHA S Primary TABATHA S [place] [id number] TR [facility] [address], [facility]: [id number] [facility] [place] [address]Zxf: [id number] Repository Date:2018-07-09 () 07/23/2018 Secondary TABATHA S [place] Insurance:[facility]: [facility] Number: [id number] Hospital [id number] Repository Date:2170-33-33OBEFIG [place], [place] [address]DS: 07/23/2018 Tertiary NOT GIVENUNK [place] Insurance:SELF PAY [facility] Number: Effective Repository Date:2018-07-23 07/09/2018 TABATHA S Primary TABATHA S [place] [id number] TR Insurance:[facility]: [address], [facility] Number: [id number] Regional Hospital, [place] [address]Bfv: [id number] Repository Date:2018-06-30 () 07/09/2018 Secondary TABATHA S [place] Insurance:[facility]: [facility] Number: [id number] Hospital [id number] Repository Date:4670-24-77TFBXLA [place], [place] [address]MW: 07/09/2018 Tertiary NOT GIVENUNK [place] Insurance:SELF PAY [facility] Number: Effective Repository Date:2018-07-09 07/08/2018 TABATHA S Primary TABATHA S [place] [id number] TR Insurance:[facility]: [address], PART A [facility] Number: [id number] Regional Hospital, [place] [address]Krk: [id number] Repository Date:2018-06-30 () 07/08/2018 Secondary TABATHA S [place] Insurance:[facility]: [facility] Number: [id number] [id number] Repository Date:9494-91-91MNXDHQ [place], [place] [address]WA: 07/08/2018 Tertiary NOT GIVENUNK [place] Insurance:SELF PAY [facility] Number: Effective Repository Date:2018-07-08 07/08/2018 TABATHA S Primary TABATHA S [place] [id number] TR Insurance:MEDICARE ARCHERDOB: [address], [facility] Number: [id number] Regional Hospital, [place] [address]Kiq: [id number] Repository Date:2018-06-30 () 07/08/2018 Secondary TABATHA S [place] Insurance:[facility]: [facility] Number: [id number] [place] [address] [id number] Repository Date:4079-84-18YJCPVZ [place], [place] [address]LT: 07/08/2018 Tertiary NOT GIVENUNK [place] Insurance:SELF PAY [facility] Number: Effective Repository Date:2018-06-30 06/30/2018 TABATHA S Primary TABATHA S [place] [id number] TR Insurance:MEDICARE ARCHERDOB: [address], PART A [facility] Number: [id number] [place] [address]Fuz: [id number] Repository Date:2018-06-30 () 06/30/2018 Secondary TABATHA S [place] Insurance:[facility]: [facility] Number: [id number] [place] [address] [id number] Repository Date:6462-06-77KJYVOU [place], [place] [address]XW: 06/30/2018 Tertiary NOT GIVENUNK [place] Insurance:SELF PAY [facility] Number: Effective Repository Date:2018-06-30 06/26/2018 TABATHA S Primary TABATHA S [place] [id number] TR Insurance[facility]: [address], PART A olicy Number: [id number] Regional Hospital, [place] [address]Hot: [id number] Repository Date:2018-06-15 () 06/26/2018 Secondary TABATHA S [place] Insurance:[facility]: [facility] Number: [id number] Hospital [id number] Repository Date:7127-79-66XYKHWY [place] [address]OZ: 06/26/2018 Tertiary NOT GIVENUNK [place] Insurance:SELF PAY [facility] Number: Effective Repository Date:2018-06-26 06/26/2018 TABATHA S Primary TABATHA S [place] [id number] TR Insurance:[facility]: [address], PART A BPolicy Number: [id number] Regional Hospital, [place] [address]Dlk: [id number] Repository Date:2018-06-15 () 06/26/2018 Secondary TABATHA S [place] Insurance:[facility]: [facility] Number: [id number] Hospital [id number] Repository Date:9716-48-80TJORLE [place], [place] [address]HI: 06/26/2018 Tertiary NOT GIVENUNK [place] Insurance:SELF PAY [facility] Number: Effective Repository Date:2018-06-15 06/23/2018 TABATHA S Primary TABATHA S [place] [id number] TR Insurance:[facility]: [address], PART A BPolicy Number: [id number] Regional Hospital, [place] [address]Dnn: [id number] Repository Date:2018-06-15 () 06/23/2018 Secondary TABATHA S [place] Insurance:[facility]: [facility] Number: [id number] Hospital [id number] Repository Date:6705-55-61ROYHUU [place] [address]QK: 06/23/2018 Tertiary NOT GIVENUNK [place] Insurance:SELF PAY [facility] Number: Effective Repository Date:2018-06-16 06/15/2018 TABATHA S Primary TABATHA PENNYDOB: Insurance:[facility]: [facility] [id number] Hospital TR Number: [address] [facility] Repository [address] [place] [address], [id number] [place], [place] [address]Qrw: Date:Plan Name:[facility] [id number] () 06/15/2018 Secondary TABATHA Griffith Insurance:[facility]: [facility] [id number] [place] [address] [facility] [address] Repository Number: 262[facility] [id number] [place] [id number] Date: 04/02/2018 TABATHA S Primary TABATHA MEYERB: Insurance[facility]: [facility] cy Number: [id number] [facility] [id number] [address] [facility] Repository [address] [place] [address], Date:Plan Name:[place], [place] [address]Gxz: [place] [id number] () 04/02/2018 Secondary TABATHA Griffith Insurance:[facility]: [facility] [id number] [place] [address] [facility] [address] Repository Number: 262MIRADHAMES, [id number] [place] [id number] Date: 11/13/2017 TABATHA S Primary TABATHA Griffith ARCHERB: Insurance:[facility]: [facility] [id number] [place] [address] [id number] Number: [address] [facility] Repository [address] [place] [address] [id number] [place] Date:Plan Name:[facility] [id number]: () 11/13/2017 Secondary TABATHA Griffith Insurance:[facility]: [facility] [id number] [place] [address] [facility] [address] Repository Number: 262MILLSIMBAAURORA [facility] [id number] [place] [id number] Date: 11/03/2017 TABATHA S Primary TABATHA S [place] [id number] Insurance:[facility]: [facility] [address] [facility] Number: [id number], [id number] Repository [place] [address]Sap: Date:2017-07-07 (HP) 11/03/2017 Secondary TABATHA S [place] Insurance:[facility]: [facility] Number: [id number] Hospital [id number] Repository Date:0439-30-77HCKHBB OF [facility]ERT[facility] [address]FD: 11/03/2017 Tertiary NOT GIVENUNK [place] Insurance:SELF PAY [facility] Number: Effective Repository Date:2017-07-07 10/31/2017 Tabatha S Primary Tabatha S [place] [id number] Insurance:MEDICARE [facility]: [facility] PART A [facility] Number: [id number], [id number] [place] [address]Fbr: Date:2017-10-31 ~21 6 2 (HP) 10/31/2017 Secondary Tabatha S [place] Insurance:M[facility]UAL OF [facility]: [facility] Number: [id number] Hospital [id number] Repository Date:4479-84-93OAQNKI [place], [place] [address]YN: 10/31/2017 Tertiary NOT GIVENUNK [place] Insurance:SELF PAY [facility] Number: Effective Repository Date:2017-10-31
== END 2018-07-09 09:56 | disposition home or self-care (01) ==
LOC: CLSP 08:02 → ICU 09:54
PROVIDERS: Internal Medicine Cardiovascular Disease; Referring Provider Internal Medicine Cardiovascular Disease; Visit Provider Internal Medicine Cardiovascular Disease
DX: I25.118 Atherosclerotic heart disease of native coronary artery with other forms of angina pectoris (principal); I11.9 Hypertensive heart disease without heart failure; I71.4 Abdominal aortic aneurysm, without rupture; I45.10 Unspecified right bundle-branch block; I25.2 Old myocardial infarction; E78.00 Pure hypercholesterolemia, unspecified; E78.5 Hyperlipidemia, unspecified; R06.09 Other forms of dyspnea; R94.39 Abnormal result of other cardiovascular function study; G47.33 Obstructive sleep apnea (adult) (pediatric); E66.9 Obesity, unspecified; Z68.29 Body mass index [BMI] 29.0-29.9, adult; Z86.73 Personal history of transient ischemic attack (TIA), and cerebral infarction without residual deficits; Z95.5 Presence of coronary angioplasty implant and graft; Z79.82 Long term (current) use of aspirin; Z79.01 Long term (current) use of anticoagulants; Z79.899 Other long term (current) drug therapy; Z87.891 Personal history of nicotine dependence
CPT/HCPCS: 36415; 80048; 85027; 85347; 85610; 85730; 92928; 93005; 93458; 99152; 99153; C1760; J7030; J7040; Q9967; A4216; C1725; C1769; C1874; C1887; C1894; C9600

== ENCOUNTER → 2019-05-19 08:01 | Outpatient (CLI) | payer MEDICARE, OTHER, SELFPAY ==
[2019-04-08 14:22] VITALS: BMI 30.7
--- NOTE | 2019-05-19 08:04 | US_ITS ---
PROCEDURES: ULTRASOUND AORTA REASON FOR EXAM: Male, 74 years old. Abdominal aortic aneurysm. TECHNIQUE: Ultrasound evaluation of the aorta was performed with real-time and static haddad-scale imaging. COMPARISON: Comparison is made with prior examination dated June 13, 2015. FINDINGS: There is atherosclerotic plaque formation of the abdominal aorta. Aorta measures: Proximal 2.0 cm. Middle 2.4 cm. Distal 3.2 cm. Aorta measure transversely: Proximal 2.5 cm. Middle 2.4 cm. Distal 3.1. Right iliac artery measures: 1.2 cm. Right iliac artery measure transversely: 1.2 cm. Left iliac artery measures: 0.8 cm. Left iliac artery measure transversely: 1.1 cm. Stable saccular infrarenal abdominal aortic aneurysm with a transverse dimension of 3.2 cm. There is a demonstrated aneurysm.. US/Aorta IMPRESSION: Stable saccular infrarenal abdominal aortic aneurysm with a transverse dimension of 3.2 cm Electronically Signed: Ismael Allen, at 15:41 EDT , Service support ,
== END ==
PROVIDERS: Family Provider Student in an Organized Health Care Education/Training Program; PCP Student in an Organized Health Care Education/Training Program; Referring Provider Student in an Organized Health Care Education/Training Program; Visit Provider Student in an Organized Health Care Education/Training Program
DX: I71.4 Abdominal aortic aneurysm, without rupture (principal)
CPT/HCPCS: 76775

== ENCOUNTER → 2020-12-12 13:29 | Outpatient (CLI) | payer MEDICARE, OTHER, SELFPAY ==
[2020-11-30 13:44] VITALS: BMI 30.6
--- NOTE | 2020-12-12 13:31 | CDU_ITS ---
Reason For Study: carotid artery disease Rt. Velocities/BP Lt. Velocities/BP Prox CCA 62.1/8.7 cm/sec. Prox CCA 94.1/13.1 cm/sec. Mid CCA 77.8/17.8 cm/sec. Mid CCA 96.6/19.2 cm/sec. Dist CCA 67.4/16.5 cm/sec. Dist CCA 62.2/10.6 cm/sec. Prox ICA 55.6/13.9 cm/sec. Prox ICA 145.3/30.4 cm/sec. Mid ICA 68.7/16.5 cm/sec. Mid ICA 102.7/24.1 cm/sec. Dist ICA 81.7/23.0 cm/sec. Dist ICA 106.4/24.1 cm/sec. Rt. ICA/CCA = 1.1. Lt. ICA/CCA = 1.4. Prox ECA 101.3/6.1 cm/sec. Prox ECA 129.0/8.5 cm/sec. Rt. Vert. 27.1 cm/sec. Lt. Vert. 65.6/12.8 cm/sec. Right Extracranial There is heterogeneous, irregular atherosclerotic plaque noted in the right common carotid artery. There is heterogeneous, irregular atherosclerotic plaque noted in the right internal carotid artery. There is homogeneous, smooth atherosclerotic plaque noted in the right external carotid artery. Antegrade flow is noted in the right vertebral artery. Left Extracranial There is intimal thickening but no significant atherosclerotic plaque noted in the left common carotid artery. There is heterogeneous, irregular atherosclerotic plaque noted in the left internal carotid artery. There is heterogeneous, irregular atherosclerotic plaque noted in the left external carotid artery. Antegrade flow is noted in the left vertebral artery. Procedure Carotid Duplex 32309. This is a Carotid Duplex examination using B-mode, color flow and specral Doppler. The exam was diagnostic. Exam performed in department. VL/Carotid Duplex Ultrasound Interpretation Summary Irregular plaque at the proximal right internal carotid artery with less than 5 0% stenosis Less than 50% stenosis right external carotid artery Irregular calcific plaque at the proximal left internal carotid artery with 50 to 69% stenosis Less than 50% stenosis left external carotid artery Patent and antegrade vertebral arteries bilaterally No change from the previous examination of November 28, 2016 Ordering Physician: Faizan Fraga Performed By: Adrian Mayer RVT
== END ==
PROVIDERS: PCP Student in an Organized Health Care Education/Training Program; Referring Provider Nurse Practitioner Family; Visit Provider Nurse Practitioner Family
DX: I65.22 Occlusion and stenosis of left carotid artery (principal); I10 Essential (primary) hypertension; I25.119 Atherosclerotic heart disease of native coronary artery with unspecified angina pectoris; E78.00 Pure hypercholesterolemia, unspecified; Z95.5 Presence of coronary angioplasty implant and graft
CPT/HCPCS: 93880

== ENCOUNTER 2021-03-18 23:36 | Emergency (ER) | payer MEDICARE, OTHER, SELFPAY ==
[2021-03-18 23:37] VITALS: BP 153/70; PULSE 62; RESP 16; TEMP 36.9; O2SAT 97; BMI 29.4
--- NOTE | 2021-03-18 23:43 | RAD_ITS ---
STUDY: X-RAY - LEFT ANKLE REASON FOR EXAM: Male, 76 years old. Injury TECHNIQUE: 3 radiographic view(s) of the ankle. COMPARISON: None. FINDINGS: Comminuted lateral malleolus fracture below and at the level of the syndesmosis with minimal displacement of the distal fragments. Overlying soft tissue swelling. Posterior malleolus linear lucency. Streaky opacity in case Kager''s fat pad. Normal medial malleolus. Normal tibiotalar articulation and ankle mortise. Normal visualized talus and calcaneus. Small posterior calcaneal enthesophyte. The visualized subtalar, talonavicular, calcaneocuboid and tarsal articulations are normal. RAD/Ankle min 3 Views IMPRESSION: RAYA type A and type B lateral malleolus fractures. Suspect posterior malleolus fracture. Electronically Signed: Demetri Hussein MD at 0:14 EDT Tel , Service support ,
--- NOTE | 2021-03-18 23:43 | ED.VIS.LOWEX ---
HPI History of Present Illness Chief Complaint: Lower Extremity Injury Informant: patient Occured/Mechanism Mechanism/Context: Yes injury Onset/Context/Timing Onset: Today Context: Sudden Onset Timing: Continuous Quality of Pain: Sharp Current Severity: Mild Maximum Severity: Mild Associated Symptoms Associated Symptoms: Negative for Parasthesia and Weakness Narrative Narrative: 76-year-old male slipped on a step tonight and landed awkwardly on his left ankle. Complaining pain and swelling on left lateral malleolus. Denies foot pain. Denies knee or hip pain. Did not hit his head. No LOC. Denies other injuries. Prior to slipping and falling he said he felt fine. Prior similar symptoms: No Recent Illness/Hospitalization: No [facility] Medical History (Updated 03/19/21 @ 00:[address] Ky Isaac MD) Abdominal aortic aneurysm without rupture Acquired left ventricular hypertrophy Atherosclerotic heart disease of [place] coronary artery without angina pectoris Coronary artery disease CVA (cerebral vascular accident) Diastolic dysfunction Essential hypertension Headache History of TIA Hyperlipidemia Hypertension Intractable nausea and vomiting Old myocardial infarction VANDANA (obstructive sleep apnea) Pure hypercholesterolemia Right bundle-branch block Home Medications clopidogrel 75 mg PO DAILY 03/02/14 [History Last Taken 11/29/15] losartan 50 mg PO DAILY 03/02/14 [History Last Taken 07/08/18] omega-3 fatty acids 300 mg PO DAILY 03/02/14 [History Last Taken 07/07/18 22:00] pantoprazole 40 mg PO DAILY 07/08/18 [History Last Taken 07/08/18 05:00] vitamin E (dl, acetate) 400 units PO DAILY 07/08/18 [History Last Taken 07/07/18 22:00] aspirin 81 mg PO DAILY@0800 tab 07/09/18 [Rx Last Taken Unknown] nitroglycerin 0.4 mg SUBLINGUAL Q5M PRN tab 07/09/18 [Rx Last Taken Unknown] atorvastatin 40 mg tablet 40 mg PO QHS #90 tab 07/03/20 [Rx Last Taken Unknown] metoprolol tartrate 25 mg tablet 25 mg PO BID #180 tab 10/02/20 [Rx Last Taken Unknown] amlodipine 5 mg tablet 5 mg PO DAILY #90 tab 11/24/20 [Rx Last Taken Unknown] meclizine 25 mg tablet 25 mg PO DAILY PRN #30 tab 11/30/20 [Rx Last Taken Unknown] Allergy/AdvReac Type Severity Reaction Status Date / Time Penicillins Allergy Anaphylaxis Verified 11/30/20 13:38 Family History Brother Diabetes Brother Hypertension Brother Cancer esophageal Brother Hip fracture Sister Diabetes Kidney disease kidney failure Sister Diabetes CAD (coronary artery disease) Hx of CABG Obesity Hyperlipidemia Father CAD (coronary artery disease) Myocardial infarction CHF (congestive heart failure) Daughter Migraine Mother Cancer Lung cancer Myocardial infarction Surgical History History of coronary artery stent placement S/P coronary artery stent placement (~07/08/18) Social History Smoking Status: Former smoker how long ago did patient quit smokin alcohol intake: former year quit: 1992 substance use type: does not use caffeine: No what type of physical activity do you participate in: bicycling and other details: tredmill frequency: 3-4 times per week duration: 30-45 minutes/day seatbelt use: always do you feel safe at home: Yes ROS ROS ED ROS Narrative Denies recent illness. Review of Systems ROS Unobtainable: Denies due to encephalopathy Constitutional Constitutional ED: Denies chills or fever(s) Eyes Eyes: Denies change in vision ENT ENT ED: Denies ear pain or sore throat Cardiovascular Cardiovascular: Denies chest pain Respiratory/Chest Respiratory/Chest: Denies dyspnea Gastrointestinal Gastrointestinal: Denies abdominal pain, diarrhea, nausea or vomiting Genitourinary Genitourinary ED: Denies dysuria Musculoskeletal Musculoskeletal: Denies myalgias Integumentary Denies rash Neurologic Neurologic: Denies headache(s) Psychiatric Psychiatric: Denies depression Endocrine Endocrinology: Denies polyuria Hematologic/Lymphatic Hematologic/Lymphatic: Denies easy bruising Allergic/Immunologic Allergic/Immunologic ED: Denies urticaria EXAM Physical Exam Narrative Exam Narrative: Well-appearing 7-year-old male. Vital signs stable afebrile. No acute distress. HEENT exam unremarkable. Atraumatic. Nontender. C-spine nontender. Lungs clear to auscultation bilaterally. Heart regular rate and rhythm no murmur. Chest wall nontender. Abdomen soft nontender. Back nontender. Spine nontender. Pelvic girdle intact. Both upper extremities right lower extremity are nontender with normal range of motion and strength. Left hip and knee are nontender nonswollen. Normal range of motion. Left ankle lateral malleolus swollen and tender. Medial malleolus nonswollen nontender. Foot nontender nonswollen. Normal DP pulse. Able to wiggle his toes. Normal touch sensation. Skin intact. Achilles tendon intact. Neurologically is awake alert with no focal motor deficits. Const Vital Signs: 03/18/21 23:37 Temperature 98.5 F Temperature Source Temporal Pulse Rate 62 Respiratory Rate 16 Blood Pressure 153/70 H Blood Pressure Mean 97 Pulse Ox 97 Oxygen Delivery Method Nasal Cannula Positive well nourished and well developed General Appearance ED: well developed and NAD HEENT Reports moist mucous membranes normocephalic and atraumatic Eyes PERRL Neck full ROM and supple Thyroid: Negative for tender Chest Wall inspection of chest normal and palpation of chest normal Resp normal respiratory effort, no retractions and clear to auscultation bilaterally Auscultation: Negative for rales, rhonchi or wheezes Cardio regular rate, regular rhythm, S1 normal heart sound, S2 normal heart sound and no murmurs GI non-tender, non-distended and no masses Auscultation: normoactive bowel sounds Palpation: soft; Negative for tender, guarding or rebound tenderness present Back/Spine no CVA tenderness General Back: Negative for CVA tenderness Cervical Spine: Negative for cervical spine tenderness Extremity normal to inspection and full ROM Extremity Narrative: Except left ankle left lateral malleolus swollen tender. Achilles tendon intact. Left foot neurovascularly intact. Medial malleolus nontender nonswollen. General Extremety ED: Negative for cyanosis or edema General Extremity: Negative for cyanosis or edema Psych mental status grossly normal Skin no wounds Lesions: no lesions Rashes: no rashes MDM MDM MDM Narrative Medical decision making narrative: 76-year-old male slipped and fell tonight injuring his left ankle. X-ray being obtained. He did not waiting for pain. Radiography Diagnostic Testing: Left ankle x-ray 3 views interpreted by myself shows a distal fibular fracture. Also a posterior tibial nondisplaced fracture. Discussed with patient treatment options he wants to be in a walking boot nonweightbearing and crutches and will follow up with Dr. Alirio Reyes. Discharge Plan Triage Chief Complaint: Lower Extremity Injury ED Provider: Ky Isaac Dx/Rx/DC Orders Clinical Impression: Ankle fracture, left Instructions: ED Ankle Fracture Prescriptions: No Action meclizine 25 mg tablet 25 mg PO DAILY PRN (Reason: dizziness) Qty: 30 RF: 11 losartan 50 MG tablet 50 mg PO DAILY RF: 0 clopidogrel 75 MG tablet 75 mg PO DAILY RF: 0 omega-3 fatty acids 300 MG capsule 300 mg PO DAILY RF: 0 pantoprazole 40 MG tablet 40 mg PO DAILY RF: 0 vitamin E (dl, acetate) 400 UNITS capsule 400 units PO DAILY RF: 0 aspirin 81 MG tablet 81 mg PO DAILY@0800 RF: 0 nitroglycerin 0.4 MG tablet 0.4 mg Sublingual Q5M PRN (Reason: Chest Pain) RF: 0 atorvastatin 40 mg tablet 40 mg PO QHS Qty: 90 RF: 3 metoprolol tartrate 25 mg tablet 25 mg PO BID Qty: 180 RF: 3 amlodipine 5 mg tablet 5 mg PO DAILY Qty: 90 RF: 4 Primary Care Provider: Jada Vázquez Referrals: Jada Vázquez MD [Primary Care Provider] - Rafi Reyes MD [STAFF PHYSICIAN] - As soon as possible Activity Restrictions/Additional Instructions: Ice and elevate the left ankle is much as possible. At least 20 to 30 minutes each time 4-5 times a day minimum. Tylenol for pain. No weightbearing as of this time and to follow-up with orthopedics. Disposition Disposition: Home, Self Care
[2021-03-19 02:07] VITALS: BP 153/70; PULSE 62; RESP 16; O2SAT 97
== END 2021-03-19 01:50 | disposition home or self-care (01) ==
PROVIDERS: Emergency Provider Emergency Medicine; PCP Student in an Organized Health Care Education/Training Program
DX: S82.892A Other fracture of left lower leg, initial encounter for closed fracture (principal); I25.10 Atherosclerotic heart disease of native coronary artery without angina pectoris; I25.2 Old myocardial infarction; W01.0XXA Fall on same level from slipping, tripping and stumbling without subsequent striking against object, initial encounter; Z87.891 Personal history of nicotine dependence; Z86.73 Personal history of transient ischemic attack (TIA), and cerebral infarction without residual deficits
CPT/HCPCS: 73610; 99285

== ENCOUNTER → 2021-12-25 | Outpatient (CLI) | payer MEDICARE, OTHER, SELFPAY ==
--- NOTE | 2021-12-25 08:46 | AAVD_ITS ---
Reason For Study: AAA Aorta Measurements Aorta Doppler Measurements Proximal aorta measures1.83 x 1.81cm. in cross- Peak systolic flow velocities within the proximal sectional axis. aorta measure 64.3 cm/sec. Proximal aorta measures1.73cm. in longitudinal Peak systolic flow velocities within the mid aorta axis. measure 77.1 cm/sec. Mid aorta measures1.91 x 1.86cm. in cross- Peak systolic flow velocities within the distal sectional axis. aorta measure 47.8 cm/sec. Mid aorta measures1.88cm. in longitudinal axis. Distal aorta measures3.67 x 3.94cm. in cross- sectional axis. Distal aorta measures3.36cm. in longitudinal axis. Left Iliac Artery Left iliac artery measures .82 x .85 cm. in the cross-sectional axis. Left iliac artery measures .82 cm. in the longitudinal axis. Peak systolic velocity in the left iliac artery measures 117.1 cm/sec. Right Iliac Artery Right iliac artery measures .63 x .8 cm. in the cross-sectional axis. Right iliac artery measures .71 cm. in the longitudinal axis. Peak systolic velocity in the right iliac artery measures 207.6 cm/sec. Procedure Aorta IVC Iliac vasculature or bypass grafts [id number]. The exam was diagnostic. Exam performed in department. VL/Abd Aortic/IVC Duplex scan Interpretation Summary Distal abdominal aortic aneurysm measuring 3.67 x 3.94 cm in diameter Normal aortic flow velocity Left common iliac artery 0.82 x 0.85 cm in diameter which is normal Right common iliac 0.63 x 0.8 cm diameter which is normal. Flow velocity slight ly elevated within the right common iliac suggesting possible occlusive disease. Ordering Physician: Demetri Desai Referring Physician: Demetri Desai Performed By: Adrian Mayer RVT
[2021-12-25 09:42] LABS: AST(SGOT) 23 U/L (15-37); Alanine Aminotransfer ALT/SGPT 33 U/L (16-61); Albumin, Serum 3.9 g/dL (3.2-5.0); Alkaline Phosphatase 61 U/L (45-117); Bilirubin, Direct 0.18 mg/dL (0.00-0.30); Cholesterol 145 mg/dL (200); Globulin 3.1 g/dL (2.2-4.2); High Density Lipoprotein 36 mg/dL; Triglycerides 197 mg/dL; Very Low Density Lipoprotein 39 mg/dL (5-40)
== END | disposition home or self-care (01) ==
LOC: CVS 08:34
PROVIDERS: PCP Student in an Organized Health Care Education/Training Program; Referring Provider Internal Medicine Cardiovascular Disease; Visit Provider Internal Medicine Cardiovascular Disease
DX: I25.119 Atherosclerotic heart disease of native coronary artery with unspecified angina pectoris (principal); I71.4 Abdominal aortic aneurysm, without rupture; E78.00 Pure hypercholesterolemia, unspecified; I10 Essential (primary) hypertension; Z95.5 Presence of coronary angioplasty implant and graft
CPT/HCPCS: 36415; 80061; 80076; 93978

== ENCOUNTER → 2022-01-23 | Outpatient (CLI) | payer MEDICARE, OTHER, SELFPAY ==
--- NOTE | 2022-01-23 08:45 | ART_ITS ---
Reason For Study: claudication Procedure A bilateral lower extremity continuous wave Doppler with analog waveform analysis,segmental pressures,and ankle brachial indexes with exercise. Left Segmental Pressures Left brachial= 174mmHg. Left posterior tibial artery = 192mmHg. Left dorsalis pedis artery = 193mmHg. The left dorsalis pedis waveforms are triphasic. The left posterior tibial artery waveforms are triphasic. Right Segmental Pressures Right brachial= 172mmHg. Right posterior tibial artery = 192mmHg. Right dorsalis pedis artery = 192mmHg. The right dorsalis pedis waveforms are triphasic. The right posterior tibial artery waveforms are triphasic. Indices The right ankle brachial index by the dorsalis pedis is 1.1. The right ankle brachial index by the posterior tibial artery is 1.1. The right post exercise ankle brachial index is 1.19. The left ankle brachial index by the dorsalis pedis is 1.11. The left ankle brachial index by the posterior tibial artery is 1.11. The left post exercise ankle brachial index is 1.22. VL/Lower Ext Art Exam w/ Exercise Interpretation Summary Right lower extremity PT and DP index with rest at 1.1 and 1.1 respectively wit h normal triphasic Doppler waveforms and normal exercise response at 1 minute to an index of 1.19 Left lower extremity PT and DP index with rest 1.11 and 1.11 respectively with normal triphasic Doppler waveforms and normal exercise response at 12:59 0.2 to. Ordering Physician: Frank Issa Performed By: Adrian Mayer RVT
== END | disposition home or self-care (01) ==
LOC: CVS 08:45
PROVIDERS: PCP Student in an Organized Health Care Education/Training Program; Referring Provider Surgery; Visit Provider Surgery
DX: I73.9 Peripheral vascular disease, unspecified (principal); I71.4 Abdominal aortic aneurysm, without rupture
CPT/HCPCS: 93924

== ENCOUNTER 2022-04-06 10:34 | Emergency (ER) | payer MEDICARE, OTHER, SELFPAY ==
[2022-04-06 10:35] VITALS: BP 130/76; PULSE 84; RESP 18; TEMP 37.3; O2SAT 95; BMI 29.8
--- NOTE | 2022-04-06 10:55 | CT_ITS ---
STUDY: CT BRAIN WITHOUT CONTRAST REASON FOR EXAM: Male, 77 years old. Pain RADIATION DOSAGE (If Supplied By Facility): CTDIvol = ( 44.99 ) mGy, DLP = ( 812.98 ) mGycm TECHNIQUE: Transaxial CT imaging of the brain was performed without administration of intravenous contrast material. Individualized dose optimization techniques were used for this CT. COMPARISON: No relevant priors. FINDINGS: Normal soft tissue structures. Normal calvarium. There is mild cerebral atrophy with widening of the extra-axial spaces and ventricular dilatation. Normal white matter tracts of the cerebral hemispheres. Normal basal ganglia and thalami. Normal brainstem. Normal cerebellum. There is no intracranial hemorrhage. There are no findings of an acute ischemic infarction. Normal visualized paranasal sinuses. CT/Brain/Head without Contrast IMPRESSION: No evidence of acute intracranial bleed, mass or ischemia. Electronically Signed: Puneet Castle DO at 11:19 EDT ,
--- NOTE | 2022-04-06 10:56 | EX.ED.VIS.HA ---
HPI History of Present Illness Chief Complaint: Headache Informant: patient Narrative Narrative: Patient presents with headache and concerned that his blood pressure might go up. He states he woke up at 3 AM which is typical for him. He noticed he had a very mild headache then. It was across the front. When he woke up at about 530 which is also typical of the headache was worse. He states he does get migraines about 2 or 3 times a year. Normally he just takes Mountain Dew and that makes them go away. He did not try that this morning. He was concerned because he used his CPAP last night and he cleaned it right before he went to bed. Normally he leaves it in the cleaning solution/device for 15 minutes. But he put it in there for 3 hours yesterday. He is concerned that some of the tuckpointer cleaner caulker may have gotten into him overnight causing his headache. He has no vomiting. No fevers. No numbness tingling weakness. No dizziness. He denies fevers chills congestion or feeling sick. He states he feels perfectly fine. He also is concerned that he did not take his blood pressure meds this morning yet and his blood pressure might go up. He thought it might be up at home. [facility] Medical History Abdominal aortic aneurysm without rupture Acquired left ventricular hypertrophy Atherosclerotic heart disease of [place] coronary artery without angina pectoris Coronary artery disease CVA (cerebral vascular accident) Diastolic dysfunction Essential hypertension Headache History of TIA Hyperlipidemia Hypertension Intractable nausea and vomiting Old myocardial infarction VANDANA (obstructive sleep apnea) Pure hypercholesterolemia PVD (peripheral vascular disease) Right bundle-branch block Home Medications clopidogrel 75 mg tablet 75 mg PO DAILY 03/02/14 [History Last Taken 11/29/15] losartan 50 mg tablet 50 mg PO DAILY 03/02/14 [History Last Taken 07/08/18] omega-3 fatty acids 300 mg capsule 300 mg PO DAILY 03/02/14 [History Last Taken 07/07/18 22:00] pantoprazole 40 mg tablet,delayed release 40 mg PO DAILY 07/08/18 [History Last Taken 07/08/18 05:00] vitamin E (dl, acetate) 180 mg (400 unit) capsule 400 units PO DAILY 07/08/18 [History Last Taken 07/07/18 22:00] aspirin 81 mg tablet,delayed release 81 mg PO DAILY@0800 07/09/18 [Rx Last Taken Unknown] meclizine 25 mg tablet 25 mg PO DAILY PRN dizziness #30 tabs 11/30/20 [Rx Last Taken Unknown] atorvastatin 40 mg tablet 40 mg PO QHS #90 tabs 07/05/21 [Rx Last Taken Unknown] metoprolol tartrate 25 mg tablet 25 mg PO BID #180 tabs 10/01/21 [Rx Last Taken Unknown] nitroglycerin 0.4 mg sublingual tablet 0.4 mg sublingual Q5M PRN Chest Pain #25 tabs 12/03/21 [Rx Last Taken Unknown] amlodipine 5 mg tablet 5 mg PO DAILY #90 tabs 02/18/22 [Rx Last Taken Unknown] Allergy/AdvReac Type Severity Reaction Status Date / Time Penicillins Allergy Anaphylaxis Verified 04/06/22 10:41 Family History Brother Diabetes Brother Hypertension Brother Cancer esophageal Brother Hip fracture Sister Diabetes Kidney disease kidney failure Sister Diabetes CAD (coronary artery disease) Hx of CABG Obesity Hyperlipidemia Father CAD (coronary artery disease) Myocardial infarction CHF (congestive heart failure) Daughter Migraine Mother Cancer Lung cancer Myocardial infarction Surgical History History of coronary artery stent placement S/P coronary artery stent placement (~07/08/18) Social History Smoking Status: Former smoker how long ago did patient quit smokin alcohol intake: former year quit: 1992 substance use type: does not use caffeine: No what type of physical activity do you participate in: bicycling and other details: tredmill frequency: 3-4 times per week duration: 30-45 minutes/day seatbelt use: always do you feel safe at home: Yes ROS ROS ED Constitutional Constitutional ED: Denies chills, fever(s), subjective or sweats Eyes Eyes: Denies blurry vision, change in vision or diplopia ENT ENT ED: Denies ear pain, rhinorrhea or sore throat Cardiovascular Cardiovascular: Denies chest pain or palpitations Respiratory/Chest Respiratory/Chest: Denies cough or dyspnea Gastrointestinal Gastrointestinal: Denies nausea or vomiting Musculoskeletal Musculoskeletal: Denies arthralgias, myalgias or neck pain Integumentary Denies rash Neurologic Neurologic: Reports headache(s); Denies paresthesias or weakness Endocrine Endocrinology: Denies polydipsia or polyuria Hematologic/Lymphatic Hematologic/Lymphatic: Reports easy bleeding, easy bruising and other Details: Patient does take Plavix due to his history of heart disease. He is also on aspirin Allergic/Immunologic Allergic/Immunologic ED: Denies urticaria EXAM Physical Exam Const Vital Signs: 04/06/22 10:35 Temperature 99.1 F Temperature Source Oral Pulse Rate 84 Respiratory Rate 18 Blood Pressure 130/76 H Blood Pressure Mean 94 Pulse Ox 95 Oxygen Delivery Method Room Air Positive well nourished and well developed Constitutional Narrative: Patient is talking on the phone in a well lit room. He actually gets another call while I am in the room. He is talking asking questions and seems very nontoxic. General Appearance ED: well developed and NAD HEENT Reports normocephalic and moist mucous membranes HEENT Narrative: No temporal artery tenderness at all. He describes the the pain is in the frontal area right above the eyes. But its not tender there. No sinus tenderness. No erythema or rash. No vesicles. Eyes PERRL and EOMs intact bilaterally Neck no meningeal signs Resp normal respiratory effort and clear to auscultation bilaterally Cardio regular rate GI non-tender Palpation: soft Back/Spine no CVA tenderness Extremity normal to inspection General Extremety ED: Negative for edema or tenderness General Extremity: Negative for edema Neuro oriented x3 Psych mental status grossly normal Skin General Skin Exam: elasticity normal MDM MDM MDM Narrative Medical decision making narrative: CT scan of the head was done with having headache, age and being on anticoagulation. He does have a history of migraines and this is not really different than his typical migraines but his last CT scan I believe was about 6 years ago. Happily, the CT shows no acute process. Patient's headache is completely resolved. His CAT scan is normal. Patient now tells me that he has a little pill at home that he supposed to take when he has migraines. He asked if he should take that. I explained that he can certainly take it if he develops a migraine. But he states he does not want to take it because he has no migraine now. I explained that in the future, if he gets a headache he could certainly try this pill to see if that would help him. He should go home and take his regular blood pressure medicines. Patient wants to go. He wants to go now. Radiography Diagnostic Testing: Clinical Impression(s) from Imaging Studies Brain CT 04/06/22 10:55 IMPRESSION: No evidence of acute intracranial bleed, mass or ischemia. Electronically Signed: Puneet Castle DO at 11:19 EDT , Discharge Plan Triage Chief Complaint: Headache ED Provider: Jake Hood Dx/Rx/DC Orders Clinical Impression: Headache, migraine Instructions: ED, Migraine (Classical) Prescriptions: No Action meclizine 25 mg tablet 25 mg PO DAILY PRN (Reason: dizziness) Qty: 30 11RF nitroglycerin 0.4 mg tablet, sublingual 0.4 mg Sublingual Q5M PRN (Reason: Chest Pain) Qty: 25 3RF losartan 50 MG tablet 50 mg PO DAILY Label Comments: blood pressure/heart clopidogrel 75 MG tablet 75 mg PO DAILY Label Comments: antiplatelet omega-3 fatty acids 300 MG capsule 300 mg PO DAILY Label Comments: cholesterol pantoprazole 40 MG tablet 40 mg PO DAILY vitamin E (dl, acetate) 400 UNITS capsule 400 units PO DAILY aspirin 81 MG tablet 81 mg PO DAILY@0800 0RF atorvastatin 40 mg tablet 40 mg PO QHS Qty: 90 3RF metoprolol tartrate 25 mg tablet 25 mg PO BID Qty: 180 3RF amlodipine 5 mg tablet 5 mg PO DAILY Qty: 90 4RF Primary Care Provider: Jada Vázquez Referrals: Jada Vázquez MD [Primary Care Provider] - As Needed Disposition Disposition: Home, Self Care
[2022-04-06] MEDS: DiphenhydrAMINE 50 MG/ML Syringe 25 MG IV (11:15)
[2022-04-06] MEDS: 0.9% Normal Saline 1,000 ML 999 ML IV (11:15)
[2022-04-06] MEDS: proCHLORPERazine 10 MG/2 ML Vial IV (11:16)
[2022-04-06 13:05] VITALS: BP 124/77; PULSE 62; RESP 15; O2SAT 98
== END 2022-04-06 13:08 | disposition home or self-care (01) ==
PROVIDERS: Emergency Provider Emergency Medicine; PCP Student in an Organized Health Care Education/Training Program; Visit Provider Emergency Medicine
DX: G43.909 Migraine, unspecified, not intractable, without status migrainosus (principal); I25.10 Atherosclerotic heart disease of native coronary artery without angina pectoris; E78.00 Pure hypercholesterolemia, unspecified; I10 Essential (primary) hypertension; Z87.891 Personal history of nicotine dependence; Z79.82 Long term (current) use of aspirin; Z79.899 Other long term (current) drug therapy; Z86.73 Personal history of transient ischemic attack (TIA), and cerebral infarction without residual deficits
CPT/HCPCS: 96374; 96375; 99285; 70450; J7030; A4216

== ENCOUNTER 2022-04-06 22:33 | Emergency (ER) | payer MEDICARE, OTHER, SELFPAY ==
[2022-04-06 22:34] VITALS: BP 152/73; PULSE 85; RESP 19; TEMP 38.2; O2SAT 94; BMI 28.0
--- NOTE | 2022-04-06 23:02 | EX.ED.DYSGE1 ---
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 Denies any dyspnea. He is vaccinated against COVID as well as boosted. No contact with anyone that he knows of with COVID right now, he significant other is not ill currently. He denies any vomiting, diarrhea, chest pain, abdominal pain. No focal neurologic symptoms or vision changes. He just basically feels poorly, and he also states he is urinating frequently despite not drinking more fluids than usual, no dysuria. He did not do an at-home COVID test or any other testing or any other treatments prior to coming back to the hospital. [facility] Medical History Abdominal aortic aneurysm without rupture Acquired left ventricular hypertrophy Atherosclerotic heart disease of [place] coronary artery without angina pectoris Coronary artery disease CVA (cerebral vascular accident) Diastolic dysfunction Essential hypertension Headache History of TIA Hyperlipidemia Hypertension Intractable nausea and vomiting Old myocardial infarction VANDANA (obstructive sleep apnea) Pure hypercholesterolemia PVD (peripheral vascular disease) Right bundle-branch block Home Medications clopidogrel 75 mg tablet 75 mg PO DAILY 03/02/14 [History Last Taken 11/29/15] losartan 50 mg tablet 50 mg PO DAILY 03/02/14 [History Last Taken 07/08/18] omega-3 fatty acids 300 mg capsule 300 mg PO DAILY 03/02/14 [History Last Taken 07/07/18 22:00] pantoprazole 40 mg tablet,delayed release 40 mg PO DAILY 07/08/18 [History Last Taken 07/08/18 05:00] vitamin E (dl, acetate) 180 mg (400 unit) capsule 400 units PO DAILY 07/08/18 [History Last Taken 07/07/18 22:00] aspirin 81 mg tablet,delayed release 81 mg PO DAILY@0800 07/09/18 [Rx Last Taken Unknown] meclizine 25 mg tablet 25 mg PO DAILY PRN dizziness #30 tabs 11/30/20 [Rx Last Taken Unknown] atorvastatin 40 mg tablet 40 mg PO QHS #90 tabs 07/05/21 [Rx Last Taken Unknown] metoprolol tartrate 25 mg tablet 25 mg PO BID #180 tabs 10/01/21 [Rx Last Taken Unknown] nitroglycerin 0.4 mg sublingual tablet 0.4 mg sublingual Q5M PRN Chest Pain #25 tabs 12/03/21 [Rx Last Taken Unknown] amlodipine 5 mg tablet 2.5 mg PO DAILY #90 tabs 04/07/22 [Rx Last Taken Unknown] nirmatrelvir 300 mg (150 mg x2)-ritonavir 100 mg tablet,dose pack(EUA) (Paxlovid) See Rx Instructions PO .COMPLEX #30 tabs 04/07/22 [Rx Last Taken Unknown] Allergy/AdvReac Type Severity Reaction Status Date / Time Penicillins Allergy Anaphylaxis Verified 04/06/22 22:36 Family History Brother Diabetes Brother Hypertension Brother Cancer esophageal Brother Hip fracture Sister Diabetes Kidney disease kidney failure Sister Diabetes CAD (coronary artery disease) Hx of CABG Obesity Hyperlipidemia Father CAD (coronary artery disease) Myocardial infarction CHF (congestive heart failure) Daughter Migraine Mother Cancer Lung cancer Myocardial infarction Surgical History History of coronary artery stent placement S/P coronary artery stent placement (~07/08/18) Social History Smoking Status: Former smoker how long ago did patient quit smokin alcohol intake: former year quit: 1992 substance use type: does not use caffeine: No what type of physical activity do you participate in: bicycling and other details: tredmill frequency: 3-4 times per week duration: 30-45 minutes/day seatbelt use: always do you feel safe at home: Yes ROS ROS ED Constitutional Constitutional ED: Reports body ache(s), chills, fatigue, fever(s) and malaise Eyes Eyes: Denies change in vision or diplopia ENT ENT ED: Denies rhinorrhea or sore throat Cardiovascular Cardiovascular: Denies chest pain or palpitations Respiratory/Chest Respiratory/Chest: Reports cough; Denies dyspnea Gastrointestinal Gastrointestinal: Denies abdominal pain, diarrhea, nausea or vomiting Genitourinary Genitourinary ED: Reports urinary frequency; Denies dysuria or hematuria Musculoskeletal Musculoskeletal: Reports myalgias; Denies neck pain Integumentary Denies abscess or rash Neurologic Neurologic: Reports headache(s); Denies paresthesias or weakness Psychiatric Psychiatric: Denies anxiety or suicidal thoughts EXAM Physical Exam Const Vital Signs: 04/06/22 22:34 Temperature 100.7 F H Temperature Source Oral Pulse Rate 85 Respiratory Rate 19 H Blood Pressure 152/73 H Blood Pressure Mean 99 Pulse Ox 94 Oxygen Delivery Method Room Air Positive well nourished and well developed General Appearance ED: well developed and NAD HEENT Reports moist mucous membranes normocephalic and atraumatic Eyes PERRL and EOMs intact bilaterally Neck full ROM and supple Resp normal respiratory effort and clear to auscultation bilaterally Cardio regular rate, regular rhythm and no murmurs Rate: Negative for tachycardic GI normal to inspection, nondistended, normoactive bowel sounds, non-tender and non-distended Auscultation: normoactive bowel sounds Palpation: soft Back/Spine no CVA tenderness General Back: other FROM Extremity normal to inspection General Extremety ED: Negative for edema, pulses abnormal or tenderness General Extremity: Negative for edema or pulses abnormal Neuro oriented x3, CN's II-XII intact bilaterally and no sensory deficits noted Sensorium / Orientation: awake and alert Motor Exam: strength 5/5 throughout Psych mental status grossly normal Skin no rashes or lesions noted and no wounds MDM MDM MDM Narrative Medical decision making narrative: Urinalysis normal. Chest x-ray 1 view on my interpretation normal, radiology in agreement. His COVID is positive. This is consistent with its clinical presentation I do not think he needs more work-up his pulse ox is excellent and he is breathing well. He is a candidate for PACs little bit I discussed that with him as well as the drawbacks including rebound symptoms, he wants the medication. I discussed with him my recommended medication changes, he has had no stents in the past year, so he can continue the clopidogrel and aspirin. Lab Data Attestation: I reviewed the patient's lab results. Labs: Laboratory Results - last 24 hr 04/06/22 23:15 Urine Color Yellow Urine Clarity Clear Urine pH 7.0 Ur Specific [place] 1.010 Urine Protein Negative Urine Glucose (UA) Normal Urine Ketones Negative Urine Occult Blood 25 H Urine Nitrite Negative Urine Bilirubin Negative Urine Urobilinogen Normal Ur Leukocyte Esterase Negative Urine RBC 0 SEEN Urine WBC 0 SEEN Ur Squamous Epith Cells 0 SEEN Urine Bacteria 0 SEEN Urine Mucus 0 SEEN Radiography Diagnostic Testing: Clinical Impression(s) from Imaging Studies Chest X-Ray 04/06/22 23:17 IMPRESSION: Degenerative changes, as described above. No demonstrated acute cardiopulmonary process. No major interval change. Electronically Signed: Bobby Leach DO at 23:27 EDT Reading Location ID and State: [address] [place] [address] Tel [phone], Service support , Discharge Plan Triage Chief Complaint: General Illness ED Provider: Jesus Johnson Dx/Rx/DC Orders Clinical Impression: COVID-19 Instructions: Coronavirus Disease 2019 (COVID-19): Caring for Yourself or Others Prescriptions: New Paxlovid (EUA) 300 mg (150 mg x 2)-100 mg tablets,dose pack See Rx Instructions .ROUTE .COMPLEX Qty: 30 0RF Rx Instructions: take TWO 150 mg tablets of nirmatrelvir with ONE 100 mg tablet of ritonavir twice daily for 5 days Continued meclizine 25 mg tablet 25 mg PO DAILY PRN (Reason: dizziness) Qty: 30 11RF nitroglycerin 0.4 mg tablet, sublingual 0.4 mg Sublingual Q5M PRN (Reason: Chest Pain) Qty: 25 3RF losartan 50 MG tablet 50 mg PO DAILY Label Comments: blood pressure/heart clopidogrel 75 MG tablet 75 mg PO DAILY Label Comments: antiplatelet omega-3 fatty acids 300 MG capsule 300 mg PO DAILY Label Comments: cholesterol pantoprazole 40 MG tablet 40 mg PO DAILY vitamin E (dl, acetate) 400 UNITS capsule 400 units PO DAILY aspirin 81 MG tablet 81 mg PO DAILY@0800 0RF metoprolol tartrate 25 mg tablet 25 mg PO BID Qty: 180 3RF Changed amlodipine 5 mg tablet 2.5 mg PO DAILY Qty: 90 4RF Rx Instructions: take half of a pill (instead of your usual 1) once daily; resume at regular dose on 04/16 Held atorvastatin 40 mg tablet 40 mg PO QHS Qty: 90 3RF Hold Instructions: Resume on 04/16/22. Primary Care Provider: Jada Vázquez Referrals: Jada Vázquez MD [Primary Care Provider] - As Needed Activity Restrictions/Additional Instructions: Try to get a home portable pulse oximeter and closely watch your oxygen levels periodically. If you stay below 90% for more than a minute or so, and/or you are feeling like your breathing is getting worse, return to the emergency department for further evaluation. Currently, CDC recommendations state that you should stay home through day 5 of symptoms, then as long as symptoms are improving, if you need to go to work or somewhere else you may for days 6-10 as long as you are wearing a mask the entire time. If you are feeling better after day 10 you may resume life is normal. Disposition Disposition: Home, Self Care
--- NOTE | 2022-04-06 23:17 | RAD_ITS ---
STUDY: X-RAY CHEST REASON FOR EXAM: Male, 77 years old. Cough and fever. Headache. TECHNIQUE: Single AP portable view of the chest. COMPARISON: 06/30/2018. FINDINGS: The lungs are clear and expanded. There is no demonstrated pleural abnormality. Normal size heart. Normal mediastinum and [place]. Normal visualized pulmonary arteries. There is atherosclerotic calcification of the aortic arch with tortuosity. There are diffuse degenerative changes of the visualized thoracic spine. Normal visualized ribs, clavicles, and shoulders. There is no demonstrated abnormality of the visualized soft tissue structures of the upper abdomen. RAD/Chest 1 View (Portable) IMPRESSION: Degenerative changes, as described above. No demonstrated acute cardiopulmonary process. No major interval change. Electronically Signed: Bobby Leach DO at 23:27 EDT ,
[2022-04-06] MEDS: Acetaminophen 325 MG Tablet 650 MG PO (23:18)
[2022-04-06 23:23] LABS: Bacteria 0 SEEN /hpf (None Seen); Mucous, Urine 0 SEEN /hpf (<or=2+); Red Blood Cells-Urine 0 SEEN /hpf (0-5); Squamous Epithelial Cells - UA 0 SEEN /hpf (0-5); White Blood Cells 0 SEEN /hpf (0-5)
[2022-04-06 23:27] LABS: Color, Urine Yellow (Yellow); Glucose, Dipstick Normal (Normal); Ketone-Dipstick Negative (Negative); Leukocyte Esterase-Dipstick Negative /ul (Negative); Nitrite-Dipstick Negative (Negative); Occult Blood-Urine 25 /ul (Negative); Protein-Dipstick Negative (Negative); Urine Bilirubin Dipstick Negative (Negative); Urine Clarity Clear (Clear); Urine Urobilinogen Normal (Normal)
== END 2022-04-07 00:21 | disposition home or self-care (01) ==
PROVIDERS: Emergency Provider Emergency Medicine; PCP Student in an Organized Health Care Education/Training Program; Visit Provider Emergency Medicine
DX: U07.1 COVID-19 (principal); E78.00 Pure hypercholesterolemia, unspecified; I25.10 Atherosclerotic heart disease of native coronary artery without angina pectoris; I25.2 Old myocardial infarction; G43.909 Migraine, unspecified, not intractable, without status migrainosus; I10 Essential (primary) hypertension; Z79.82 Long term (current) use of aspirin; Z79.899 Other long term (current) drug therapy; Z86.73 Personal history of transient ischemic attack (TIA), and cerebral infarction without residual deficits; Z87.891 Personal history of nicotine dependence; Z95.5 Presence of coronary angioplasty implant and graft
CPT/HCPCS: 70450; 71045; 81001; 87428; 96374; 96375; 99283; 99285; J7030; A4216

== ENCOUNTER 2022-09-10 17:41 | Emergency (ER) | payer MEDICARE, SELFPAY ==
[2022-09-10 17:44] VITALS: BP 162/63; PULSE 59; RESP 16; TEMP 36.6; O2SAT 97; BMI 29.5
--- NOTE | 2022-09-10 18:20 | EKG12_ITS ---
Test Reason : CP Blood Pressure : / mmHG Vent. Rate : 060 BPM Atrial Rate : 060 BPM P-R Int : 390 ms QRS Dur : 140 ms QT Int : 464 ms P-R-T Axes : 060 -59 019 degrees QTc Int : 464 ms Sinus rhythm with 1st degree A-V block with occasional Premature ventricular complexes Left axis deviation Right bundle branch block Possible Lateral infarct , age undetermined Inferior infarct , age undetermined Abnormal ECG Confirmed by ART CORNELIUS, ALVIN ([id number]), communications editor ISIDRO ATKINS ([id number]) on 09/11/2022 1:49:03 PM Referred By: AZAEL Confirmed By:ALVIN CORDOVA MD
--- NOTE | 2022-09-10 18:21 | ED.VIS.CHEST ---
HPI History of Present Illness Chief Complaint: Chest Pain Informant: patient Onset/Context/Timing Onset: Today Narrative Narrative: Transient left-sided chest pain into his neck started at 4 PM 2 hours ago. States felt like gas. Symptoms resolved on the drive here. History of 3 heart attacks with 3 stents in the past last 1 years ago. He states 1 was a little maker. He states he thinks he had a stress test a year ago. He is followed by Dr. Desai. Denies recent illnesses. History of hypertension hyperlipidemia denies diabetes. 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 Patient takes baby aspirin however takes it at night none taken today. CVD Risk Factors: Positive for Hypertension and Hypercholesterolemia [facility] Medical History Abdominal aortic aneurysm without rupture Acquired left ventricular hypertrophy Atherosclerotic heart disease of [place] coronary artery without angina pectoris Coronary artery disease CVA (cerebral vascular accident) Diastolic dysfunction Essential hypertension Headache History of TIA Hyperlipidemia Hypertension Intractable nausea and vomiting Old myocardial infarction VANDANA (obstructive sleep apnea) Pure hypercholesterolemia PVD (peripheral vascular disease) Right bundle-branch block Home Medications clopidogrel 75 mg tablet 75 mg PO DAILY 03/02/14 [History Last Taken 11/29/15] losartan 50 mg tablet 50 mg PO DAILY 03/02/14 [History Last Taken 07/08/18] omega-3 fatty acids 300 mg capsule 300 mg PO DAILY 03/02/14 [History Last Taken 07/07/18 22:00] pantoprazole 40 mg tablet,delayed release 40 mg PO DAILY 07/08/18 [History Last Taken 07/08/18 05:00] vitamin E (dl, acetate) 180 mg (400 unit) capsule 400 units PO DAILY 07/08/18 [History Last Taken 07/07/18 22:00] aspirin 81 mg tablet,delayed release 81 mg PO DAILY@0800 07/09/18 [Rx Last Taken Unknown] meclizine 25 mg tablet 25 mg PO DAILY PRN dizziness #30 tabs 11/30/20 [Rx Last Taken Unknown] metoprolol tartrate 25 mg tablet 25 mg PO BID #180 tabs 10/01/21 [Rx Last Taken Unknown] nitroglycerin 0.4 mg sublingual tablet 0.4 mg sublingual Q5M PRN Chest Pain #25 tabs 12/03/21 [Rx Last Taken Unknown] atorvastatin 40 mg tablet 40 mg PO QHS #90 tabs 07/05/22 [Rx Last Taken Unknown] amlodipine 10 mg tablet 10 mg PO DAILY #90 tabs 07/10/22 [Rx Last Taken Unknown] Allergy/AdvReac Type Severity Reaction Status Date / Time Penicillins Allergy Anaphylaxis Verified 09/10/22 17:42 Family History Brother Diabetes Brother Hypertension Brother Cancer esophageal Brother Hip fracture Sister Diabetes Kidney disease kidney failure Sister Diabetes CAD (coronary artery disease) Hx of CABG Obesity Hyperlipidemia Father CAD (coronary artery disease) Myocardial infarction CHF (congestive heart failure) Daughter Migraine Mother Cancer Lung cancer Myocardial infarction Surgical History History of coronary artery stent placement S/P coronary artery stent placement (~07/08/18) Social History Smoking Status: Former smoker how long ago did patient quit smokin alcohol intake: former year quit: 1992 substance use type: does not use caffeine: No what type of physical activity do you participate in: bicycling and other details: tredmill frequency: 3-4 times per week duration: 30-45 minutes/day seatbelt use: always do you feel safe at home: Yes ROS ROS ED Constitutional Constitutional ED: Denies chills, fever(s) or sweats Eyes Eyes: Denies change in vision ENT ENT ED: Denies dysphagia or sore throat Cardiovascular Cardiovascular: Denies chest pain, leg edema, palpitations or racing heartbeat Respiratory/Chest Respiratory/Chest: Denies cough, dyspnea or dyspnea on exertion Gastrointestinal Gastrointestinal: Denies abdominal pain, diarrhea, nausea or vomiting Genitourinary Genitourinary ED: Denies dysuria, hematuria or urinary frequency Musculoskeletal Musculoskeletal: Denies back pain, extremity pain or neck pain Integumentary Denies rash or wounds Neurologic Neurologic: Denies headache(s), paresthesias or weakness EXAM Physical Exam Const Vital Signs: 09/10/22 17:44 09/10/22 18:24 09/10/22 20:16 Temperature 97.9 F Temperature Source Temporal Pulse Rate 59 L 56 L Respiratory Rate 16 17 Blood Pressure 162/63 H 153/72 H Blood Pressure Mean 96 99 Pulse Ox 97 96 98 Oxygen Delivery Method Room Air Room Air Room Air Positive well nourished and well developed General Appearance ED: well developed and NAD HEENT Reports moist mucous membranes normocephalic and atraumatic Eyes PERRL, EOMs intact bilaterally and conjunctivae normal General Eye ED: Yes normal appearance of both eyes Neck no lymphadenopathy and supple General: Negative for tenderness Chest Wall Chest: Negative for tenderness Resp normal respiratory effort and normal air movement Effort and Inspection: symmetric chest movement; Negative for respiratory distress Cardio regular rate, regular rhythm and no murmurs Peripheral Pulses: pulses 2+ throughout GI normal to inspection, nondistended, normoactive bowel sounds and non-tender Palpation: Negative for guarding or rebound tenderness present Back/Spine no CVA tenderness and no thoracic nor lumbar tenderness Extremity normal to inspection General Extremety ED: Negative for edema or tenderness General Extremity: Negative for edema Neuro oriented x3 and no sensory deficits noted Sensorium / Orientation: awake and alert Skin no rashes or lesions noted and no wounds Heart Score History: Slightly/Non-Suspicious ECG: Normal Age: >/= 65 years Risk Factors: >/= 3 Risk Factors or History of CAD Troponin: </= Normal Limit Score: 4 MDM MDM MDM Narrative Medical decision making narrative: Interventions / MDM: Differential diagnosis: Atypical chest pain, ACS, Diagnosis considered but do not suspect: Pneumothorax however normal breath sounds bilaterally My EKG interpretation: Sinus rate of 68 first-degree heart block, right bundle branch block, no ST or T wave changes. Imaging independently reviewed and interpreted by myself: 2 view chest ray no acute process External documents reviewed: N/A Test considered but not ordered:N/A ED course: patient with with transient chest pains. EKG chronic changes. Cardiac work-up troponin negative x2. Aspirin was given. Re-evaluation: stable and symptom-free. Patient discharged outpatient follow-up with strict return precautions. All questions were answered. Disposition discussed with patient/family/significant other: Patient and significant other Case discussed with consulting clinician: N/A Lab Data Attestation: I reviewed the patient's lab results. Labs: Laboratory Results - last 24 hr 09/10/22 09/10/22 09/10/22 17:55 17:55 20:00 WBC 6.7 RBC 4.88 Hgb 15.9 Hct 45.6 MCV 93.4 MCH 32.6 H MCHC 34.9 RDW Std Deviation 43.9 RDW Coeff of Hase[place] 12.9 Plt Count 192 MPV 10.0 Immature Gran % (Auto) 0.100 Neut % (Auto) 52.0 Lymph % (Auto) 32.2 [place] % (Auto) 9.0 Eos % (Auto) 5.1 H Baso % (Auto) 1.6 H Absolute Neuts (auto) 3.5 Absolute Lymphs (auto) 2.15 Nucleated RBC % 0 Sodium 142 Potassium 4.0 Chloride 107 Carbon Dioxide 28.0 Anion Gap 7 BUN 10 Creatinine 1.18 Estim Creat Clear Calc 51.53 Est GFR (MDRD) Af Amer 77 Est GFR (MDRD) Non-Af 64 BUN/Creatinine Ratio 8.5 L Glucose 101 Calcium 9.1 Troponin I High Sens 14 17 Radiography Diagnostic Testing: Clinical Impression(s) from Imaging Studies Chest X-Ray 09/10/22 18:34 IMPRESSION: No radiographic evidence of acute cardiopulmonary disease. Electronically Signed: Mo Walsh MD at 18:47 EST , EKG Initial EKG: Attestation: I personally reviewed and interpreted this EKG as follows: Comments: Sinus rate of 68 first-degree heart block, right bundle branch block, no ST or T wave changes. Discharge Plan Triage Chief Complaint: Chest Pain ED Provider: Neymar Osborne Dx/Rx/DC Orders Clinical Impression: Chest pain, History of coronary artery stent placement, Essential hypertension Instructions: ED Chest Pain, Uncertain Cause Prescriptions: No Action meclizine 25 mg tablet 25 mg PO DAILY PRN (Reason: dizziness) Qty: 30 11RF nitroglycerin 0.4 mg tablet, sublingual 0.4 mg Sublingual Q5M PRN (Reason: Chest Pain) Qty: 25 3RF losartan 50 MG tablet 50 mg PO DAILY Label Comments: blood pressure/heart clopidogrel 75 MG tablet 75 mg PO DAILY Label Comments: antiplatelet omega-3 fatty acids 300 MG capsule 300 mg PO DAILY Label Comments: cholesterol pantoprazole 40 MG tablet 40 mg PO DAILY vitamin E (dl, acetate) 400 UNITS capsule 400 units PO DAILY aspirin 81 MG tablet 81 mg PO DAILY@0800 0RF metoprolol tartrate 25 mg tablet 25 mg PO BID Qty: 180 3RF atorvastatin 40 mg tablet 40 mg PO QHS Qty: 90 3RF Hold Instructions: Resume on 04/16/22. amlodipine 10 mg tablet 10 mg PO DAILY Qty: 90 3RF Primary Care Provider: Jada Vázquez Referrals: Demetri Desai MD [Med Staff - Active Staff] - 3-5 Days Jada Vázquez MD [Primary Care Provider] - Activity Restrictions/Additional Instructions: Cardiac work-up negative today. Follow-up with Dr. Desai. Return if any worsening symptoms. Disposition Disposition: Home, Self Care Discharge Date/Time: 09/10/22 21:10
[2022-09-10 18:24] VITALS: O2SAT 96
[2022-09-10] MEDS: Aspirin 81 MG TAB.CHEW 324 MG PO (18:24)
--- NOTE | 2022-09-10 18:34 | RAD_ITS ---
EXAM: XR CHEST, 2 VIEWS CLINICAL INDICATION: chest pain TECHNIQUE: Frontal and lateral views of the chest. This report was created using [employer] report generation technology. COMPARISON: 04/06/2022 FINDINGS: LUNGS AND PLEURAL SPACES: Unremarkable. No consolidation or edema. No pneumothorax. No effusion. HEART: Unremarkable. Cardiac silhouette not enlarged. MEDIASTINUM: Central airways and mediastinal contour are unremarkable. BONES/JOINTS: Unremarkable. SOFT TISSUES: Unremarkable. RAD/Chest PA and Lateral IMPRESSION: No radiographic evidence of acute cardiopulmonary disease. Electronically Signed: Mo Walsh MD at 18:47 EST ,
[2022-09-10 18:35] LABS: Absolute Lymphocyte Count 2.15 X10^3/uL (0.83-4.51); Absolute Neutrophil Count 3.5 X10^3/uL (2.0-7.7); Basophil# 0.11 X10^3/uL; Basophil% 1.6 % (0-1); Eosinophil# 0.34 X10^3/uL; Eosinophils% 5.1 % (0-5); Hematocrit 45.6 % (40-54); Hemoglobin 15.9 g/dL (13.0-16.5); Lymphocyte # 2.15 X10^3/ul (0.83-4.51); Lymphocyte % 32.2 % (19-41); Mean Corp Hgb Conc 34.9 g/dL (32-36); Mean Corpuscular Hgb 32.6 pg (27.0-32.0); Mean Corpuscular Volume 93.4 fL (80-94); NRBC Flagged by Analyzer 0 % (0-5); Neutrophil # 3.47 X10^3/uL (2.7-7.7); Platelet Count 192 K/mm3 (150-450); RBC Distribution Width CV 12.9 % (11.6-14.6); RBC Distribution Width SD 43.9 fl (35.1-43.9); Red Blood Count 4.88 M/mm3 (4.6-6.2); White Blood Count 6.7 K/mm3 (4.4-11.0)
[2022-09-10 18:53] LABS: Anion Gap 7 (5-15); BUN 10 mg/dL (7-18); BUN/Creat Ratio 8.5 RATIO (10-20); Calcium,Total 9.1 mg/dL (8.5-10.1); Chloride 107 mmol/L (98-107); Creatinine, Serum 1.18 mg/dL (0.70-1.30); EST Glomerular Filtration Rate 64 mL/min (>60); Est Glom Filt Rate - Afr Amer 77 mL/min (>60); Estimated Creatinine Clearance 51.53 ml/min; Glucose 101 mg/dL (74-106); Sodium Level 142 mmol/L (136-145); Troponin-I HS (w/2H Reflex) 14 pg/mL (3.0-78.0)
[2022-09-10 20:16] VITALS: BP 153/72; PULSE 56; RESP 17; O2SAT 98
[2022-09-10 20:31] LABS: Reflex Troponin-HS? (from REC) Y
[2022-09-10 20:51] LABS: Troponin-I HS 17 pg/mL (3.0-78.0)
== END 2022-09-10 21:10 | disposition home or self-care (01) ==
PROVIDERS: Emergency Provider Emergency Medicine; PCP Student in an Organized Health Care Education/Training Program; Visit Provider Emergency Medicine
DX: R07.9 Chest pain, unspecified (principal); I10 Essential (primary) hypertension; I25.10 Atherosclerotic heart disease of native coronary artery without angina pectoris; G47.33 Obstructive sleep apnea (adult) (pediatric); I25.2 Old myocardial infarction; Z86.73 Personal history of transient ischemic attack (TIA), and cerebral infarction without residual deficits; Z95.5 Presence of coronary angioplasty implant and graft; Z87.891 Personal history of nicotine dependence
CPT/HCPCS: 71046; 80048; 84484; 85025; 93005; 99283; A4216

== ENCOUNTER → 2023-01-20 | Outpatient (CLI) | payer MEDICARE, SELFPAY ==
--- NOTE | 2023-01-20 08:45 | CDU_ITS ---
Reason For Study: Stenosis of bilateral carotid arteries Rt. Velocities/BP Lt. Velocities/BP Prox CCA 60.7/10.7 cm/sec. Prox CCA 88.8/18.8 cm/sec. Mid CCA 76.8/11.6 cm/sec. Mid CCA 74/18.8 cm/sec. Dist CCA 62.6/12.6 cm/sec. Dist CCA 66.7/9 cm/sec. Prox ICA 80.2/16.3 cm/sec. Prox ICA 139.4/27.9 cm/sec. Mid ICA 90/17.6 cm/sec. Mid ICA 121.1/27.9 cm/sec. Dist ICA 88.8/23.7 cm/sec. Dist ICA 106.5/24.3 cm/sec. Rt. ICA/CCA = 1.44. Lt. ICA/CCA = 1.88. Prox ECA 126.6/15.2 cm/sec. Prox ECA 124.4/13.9 cm/sec. Rt. Vert. 47/12.6 cm/sec. Lt. Vert. 52/11.3 cm/sec. Right Extracranial There is heterogeneous, irregular atherosclerotic plaque noted in the right common carotid artery. There is heterogeneous, irregular atherosclerotic plaque noted in the right internal carotid artery. There is homogeneous, smooth atherosclerotic plaque noted in the right external carotid artery. Antegrade flow is noted in the right vertebral artery. Left Extracranial There is homogeneous, smooth atherosclerotic plaque noted in the left common carotid artery. There is heterogeneous, irregular atherosclerotic plaque noted in the left internal carotid artery. There is heterogeneous, irregular atherosclerotic plaque noted in the left external carotid artery. Antegrade flow is noted in the left vertebral artery. Procedure Carotid Duplex [id number]. This is a Carotid Duplex examination using B-mode, color flow and specral Doppler. Exam performed in department. VL/Carotid Duplex Ultrasound Interpretation Summary Irregular calcific plaque at the proximal right internal carotid artery with le ss than 50% stenosis Less than 50% stenosis right external carotid artery Irregular calcific plaque at the proximal left internal carotid artery with 50 to 69% stenosis Less than 50% stenosis left external carotid artery Patent and antegrade vertebral arteries bilaterally No change from December 12, 2020 Ordering Physician: Frank Issa MD Referring Physician: Jada Vázquez Performed By: Polina Bosch Zaira
--- NOTE | 2023-01-20 08:45 | AAVD_ITS ---
Reason For Study: AAA Aorta Measurements Aorta Doppler Measurements Proximal aorta measures1.99 x 1.95cm. in cross- Peak systolic flow velocities within the proximal sectional axis. aorta measure 72.3 cm/sec. Proximal aorta measures1.99cm. in longitudinal Peak systolic flow velocities within the mid aorta axis. measure 46.9 cm/sec. Mid aorta measures1.96 x 1.96cm. in cross- Peak systolic flow velocities within the distal sectional axis. aorta measure 72.3 cm/sec. Mid aorta measures1.99cm. in longitudinal axis. Distal aorta measures3.71 x 3.69cm. in cross- sectional axis. Distal aorta measures3.63cm. in longitudinal axis. Left Iliac Artery Left iliac artery measures 1.03 x 1.05 cm. in the cross-sectional axis. Left iliac artery measures 1.02 cm. in the longitudinal axis. Peak systolic velocity in the left iliac artery measures 106 cm/sec. Right Iliac Artery Right iliac artery measures 0.90 x 0.87 cm. in the cross-sectional axis. Right iliac artery measures 0.93 cm. in the longitudinal axis. Peak systolic velocity in the right iliac artery measures 203.4 cm/sec. Procedure Aorta IVC Iliac vasculature or bypass grafts 86318. Exam performed in department. VL/Abd Aortic/IVC Duplex scan Interpretation Summary Distal abdominal aortic aneurysm measuring 3.71 x 3.69 cm in diameter. Normal a ortic flow rates noted Left common iliac artery normal at 1.03 x 1.05 cm in diameter Right, iliac artery normal at 0.9 x 0.87 cm in diameter Previous measurement of the abdominal aortic aneurysm January 23, 2022 was 3.67 x 3.94cm diameter. There has been no progression of disease. Ordering Physician: Frank Issa Referring Physician: Jada Vázquez Performed By: Polina Bosch RVT
== END | disposition home or self-care (01) ==
LOC: CVS 08:42
PROVIDERS: PCP Student in an Organized Health Care Education/Training Program; Referring Provider Surgery; Visit Provider Surgery
DX: I65.23 Occlusion and stenosis of bilateral carotid arteries (principal); I73.9 Peripheral vascular disease, unspecified; I71.40 Abdominal aortic aneurysm, without rupture, unspecified
CPT/HCPCS: 93880; 93978

== ENCOUNTER → 2023-03-05 | Outpatient (CLI) | payer MEDICARE, SELFPAY ==
[2023-03-05] VITALS (11 sets, daily range): BP systolic 109–149; BP diastolic 59–107; PULSE 60–67; RESP 11–18; TEMP 36.8; O2SAT 92–100; BMI 28.3
--- NOTE | 2023-03-05 | LUNB_PTH ---
PATIENT: TABATHA DOSS LOC: CT U#:[id number] AGE/SX: 77/M ROOM: RE03/05/[address]: Dr. Kashif Frost MD : 1945 BED: DIS: 03/05/2023 SPEC #: [id number] RECD: 03/05/23 11:05 STATUS: TATA CHRISTIANO #: [id number] PAULA: 03/05/23 00:[address]: Kashif Frost DEPT: SURGICAL PATHOLOGY RECD BY: Jacob Rojas ENTERED: 03/05/23 11:16 SP TYPE: LUNG BX OTHR DR: Dr. aJda Vázquez MD Tissues: Lung, NOS Procedures: Special Stain Group II Surgery Specimen Level IV Imprint (control) HEADER OPERATION: CT-guided right upper lung biopsy PRE-OP DIAGNOSIS: Right upper lung mass TISSUE SUBMITTED: Right upper lung 20-gauge core x6 MICROSCOPIC DIAGNOSIS Right upper lung mass, CT-guided core biopsy: Non-small cell carcinoma, favor squamous cell carcinoma. See comment. KILEY:chico 03/06/2023 COMMENT The specimen is evaluated at the time of biopsy by Dr. Rivers. Immediate Evaluation = Negative for malignant cells. Immunohistochemistry ([id number]) supports the above diagnosis. The specimen predominantly consists of fibrous tissue with elastosis, focal calcifications and skeletal muscle tissue. Only a minute area of the tumor is noted. Correlation with clinical, radiologic findings and appropriate follow up are necessary. Case has been reviewed in consultation with Dr. Larios who concurs with the above diagnosis. IDC:AM MICROSCOPIC DESCRIPTION Slides are reviewed. GROSS DESCRIPTION Received in fixative is one container labeled with the patient's name and designated right lung. The specimen consists of multiple irregular fragments of hammer soft tissue that in aggregate measure 1.0 x 0.1 x <0.1 cm. The specimen is totally submitted in one cassette. Two touch imprints are prepared at the time of core biopsy. / KILEY:chico 03/05/2023 TC:0 CPT: 74540, 83704 ADDENDUM ADDENDUM ADDENDUM ADDENDUM ADDENDUM ADDENDUM ADDENDUM ADDENDUM ADDENDUM ADDENDUM 04/23/2023 08:18 ADDENDUM 04/23/2023 08:18 ADDENDUM 04/23/2023 08:18 ADDENDUM 04/23/2023 08:18 ADDENDUM 04/23/2023 08:18 This addendum is added to incorporate an outside pathology consultation report. The case was examined at [facility] (#[id number]) and the following diagnosis was rendered. Right upper lung mass, CT-guided core biopsy: Squamous cell carcinoma. Please see complete above mentioned consultation report in EMR
--- NOTE | 2023-03-05 | IMM_PTH ---
PATIENT: TABATHA DOSS LOC: CT U#:[id number] AGE/SX: 77/M ROOM: RE03/05/[address]: Dr. Kashif Frost MD : 1945 BED: DIS: 03/05/2023 SPEC #: [id number] RECD: 03/06/23 13:49 STATUS: TATA REQ #: [id number] PAULA: 03/05/23 00:[address]: Kashif Frost DEPT: IMMUNOHISTOCHEMISTRY RECD BY: Tequila Dee ENTERED: 03/06/23 13:52 SP TYPE: IMMUNO OTHR DR: Dr. Jada Vázquez MD Tissues: Right upper lobe of lung, NOS Procedures: RCC (add) NAPSIN A (add) Oswaldo Ret (add) CK20 (add) CK5-6 (add) CK7 (add) CK8 (add) HEP PAR (add) TTF1 (add) Vimentin (add) Pankeratin (initial) P40 (add) PSAP (add) PHYSICIAN & [address] [address] SPECIMEN INFORMATION: Tissue Source: Right upper lung Clinical Info: Right upper lung mass Specimen Number: [id number] CPT code: 17758, 54834 x12 METHODOLOGY: Deparaffinized sections of prefer/formalin-fixed tissue or PAP/DQ stained slides are incubated with monoclonal/polyclonal antibodies/oligonucleotide probes. Localization is made via biotin free immunoperoxidase method. Appropriate controls are performed and reacted as expected. Results on target cell population are indicated in the following table: RESULTS: ANTIBODY / CLONE RESULT AE1-3 (AE1/AE3/PCK26) positive CK7 (OV-TL12/30) negative CK8 (63xtskK25) positive CK20 (KS20.8) negative Vimentin (V9) negative TTF-1 (8G7G3/1) negative Napsin A (Rabbit Polyclonal) negative HepPar (OCh1E5) negative RCC (PN-15) negative PSAP (PASE/4LJ) negative CALRET (polyclonal) negative CK5-6 (D5 & 1684) positive P40 (BC28) positive These tests were developed and their performance characteristics determined by [facility]. They may not have been cleared or approved by the U.S. Food and Drug Administration. The FDA has determined that such clearance or approval is not necessary. The above immunohistochemical/dualISH markers are ordered and reviewed by the Pathologist. INTERPRETATION: Right upper lung, CT-guided core biopsy: Non-small cell carcinoma, favor squamous cell carcinoma. SJ:chico 03/07/2023 Case has been reviewed in consultation with Dr. Larios who concurs with the above diagnosis. IDC:[email or web address]
--- NOTE | 2023-03-05 08:58 | CT_ITS ---
PROCEDURE: CT GUIDED CORE NEEDLE BIOPSY OF A posterior right upper lobe soft tissue density LUNG LESION INDICATION: Male, 77 years old. Pleural mass PHYSICIAN: Dr. Alejandro Moura CONSENT: Written informed consent was obtained having explained the risks, benefits and alternatives in detail with the patient who accepted the risks and agreed to proceed. Laboratory review and clinical assessment was performed. CONSCIOUS SEDATION PROTOCOL: The Drugs used were: 2 mg Versed, IV., and 50 mcg Fentanyl, IV. The sedation time was: 24 minutes. Conscious sedation was started at 10:34 AM and terminated at 10:58 AM. The conscious sedation protocol was independently monitored. RADIATION DOSAGE (If Supplied By Facility): CTDIvol = ( 18.8 ) mGy, DLP = ( 485.23 ) mGycm Individualized dose optimization techniques were used for this CT. TECHNIQUE: The patient was placed in the prone position. A noncontrast CT was performed to localize the lesion in the posterior pleural-based aspect of the right upper lobe . The skin surface was prepped and draped in a sterile fashion. 1% lidocaine was used for local anesthesia. Using CT guidance, a 20-gauge coaxial biopsy device was advanced to the periphery of the lesion. A total of 6 core specimens were obtained. The specimens were placed in a formalin solution. A post procedure CT demonstrated no adverse sequelae or pneumothorax. The patient tolerated the procedure well without adverse event. A negative biopsy does not exclude malignancy. Further imaging or clinical followup based on patient condition and degree of clinical suspicion for malignancy. Suggest rebiopsy, if biopsy results do not match with clinical scenario. CT/Biopsy/Inj or Needle Placement IMPRESSION: 1. CT directed core needle biopsy of the pleural-based nodule in the right upper lobe posteriorly using CT image guidance with image documentation as described. Pathology results are pending. 2. Conscious Sedation protocol utilized with independent monitoring. Electronically Signed: Ismael Allen MD at 11:33 EDT ,
[2023-03-05 09:18] LABS: Hemoglobin 14.4 g/dL (13.0-16.5); Mean Corp Hgb Conc 33.5 g/dL (32-36); Mean Corpuscular Hgb 31.9 pg (27.0-32.0); Mean Corpuscular Volume 95.3 fL (80-94); Mean Platelet Vol. 9.9 fl (6.2-12.0); Platelet Count 212 K/mm3 (150-450); RBC Distribution Width CV 13.1 % (11.6-14.6); RBC Distribution Width SD 45.7 fl (35.1-43.9); Red Blood Count 4.51 M/mm3 (4.6-6.2)
[2023-03-05 09:29] LABS: Partial Thromboplast Time 25.2 Seconds (24.1-36.2); Prothrombin Time (Protime)PT. 13.2 SECONDS (11.7-14.9)
[2023-03-05] MEDS: Midazolam 2 MG/2 ML Syringe IV (10:34)
[2023-03-05] MEDS: fentaNYL 100 MCG/2 ML Ampul IV (10:37)
[2023-03-05] MEDS: Lidocaine 2% (20 ml mdv) 20 ML Vial INFILT (10:47)
--- NOTE | 2023-03-05 11:05 | RAD_ITS ---
INDICATION: post ct lung bx -- Immediately post lung biopsy EXAMINATION/TECHNIQUE: X-RAY - XR Chest 2 Views COMPARISON: Prior studies dated: [address] dated March 05, 2023 FINDINGS: LINES/DEVICES: There is a dual-lead cardiac pacer device. LUNGS: There is a 1.9 cm right apical nodular opacity. There is a tiny right apical pneumothorax. MEDIASTINUM AND CARDIOVASCULAR STRUCTURES: Cardiac silhouette not enlarged. Central airways and mediastinal contour are unremarkable. BONES AND SOFT TISSUES: Unremarkable. RAD/Chest Insp/Exp 2 View IMPRESSION: Small right apical pneumothorax. 1.9 cm right apical opacity may be secondary to a neoplastic process. N.B. : The above Results were Read Back by Priti Cruz MD to Ismael Allen MD, and understanding confirmed on 03/05/2023 11:30:26 (ET). Electronically Signed: Priti Cruz MD at 11:31 EDT ,
--- NOTE | 2023-03-05 12:55 | RAD_ITS ---
STUDY: X-RAY CHEST REASON FOR EXAM: Male, 77 years old. 2 hours post-lung biopsy, pneumothorax -- 2 hours post lung biopsy TECHNIQUE: AP inspiration and expiration views. COMPARISON: Comparison is made with prior study done earlier today. FINDINGS: Stable minimal right apical pneumothorax. The patient is asymptomatic. RAD/Chest Insp/Exp 2 View IMPRESSION: Stable minimal right apical pneumothorax. The patient is asymptomatic. Electronically Signed: Ismael Allen MD at 13:33 EDT ,
== END | disposition home or self-care (01) ==
PROVIDERS: PCP Student in an Organized Health Care Education/Training Program; Referring Provider Internal Medicine Critical Care Medicine; Visit Provider Internal Medicine Critical Care Medicine
DX: Z01.812 Encounter for preprocedural laboratory examination (principal); C34.11 Malignant neoplasm of upper lobe, right bronchus or lung; I63.9 Cerebral infarction, unspecified; I51.7 Cardiomegaly; R91.8 Other nonspecific abnormal finding of lung field
CPT/HCPCS: 32408; 36415; 71046; 77012; 85027; 85610; 85730; 88305; 88313; 88341; 88342; 99156; J7050; A4216

== ENCOUNTER → 2023-03-11 | Outpatient (CLI) | payer MEDICARE, SELFPAY ==
--- NOTE | 2023-03-12 08:19 | PFT ---
INTRODUCTION: The patient is a 77-year-old male who presents for pulmonary function studies secondary to a diagnosis of abnormal chest imaging. Respiratory therapy reported good patient effort. Bronchodilators were used during testing. INTERPRETATION: Forced expiration spirometry demonstrates the presence of a mild large airways obstructive ventilatory defect. There was no significant response to aerosolized bronchodilators. Body plethysmography was performed and revealed lung volumes to be within normal limits. Diffusing capacity by single breath CO was also within normal limits. IMPRESSION: Irreversible mild large airways obstructive ventilatory defect with preserved lung volumes and diffusing capacity.
== END | disposition home or self-care (01) ==
PROVIDERS: PCP Student in an Organized Health Care Education/Training Program; Referring Provider Internal Medicine Critical Care Medicine; Visit Provider Internal Medicine Critical Care Medicine
DX: R91.8 Other nonspecific abnormal finding of lung field (principal)
CPT/HCPCS: 94060; 94726; 94729

== ENCOUNTER → 2023-03-18 | Outpatient (CLI) | payer MEDICARE, SELFPAY ==
--- NOTE | 2023-03-18 07:00 | PET_ITS ---
EXAMINATION: FDG PET/CT INDICATIONS: 78-year-old male with a history of primary lung carcinoma, presenting for apparent initial staging examination. COMPARISON EXAMINATION: None available INDEX LESION SIZE SUV INTERPRETATION Right upper lung field, right upper lobe 28.2 mm 13.3 Fulfills quantitative criteria for viable neoplasm ? Left adrenal gland ? 2.9 Quantitative criteria for viable neoplasm are fulfilled TECHNIQUE: Following the intravenous administration of 13.44 mCi of F-18 deoxyglucose via the right hand, multiplanar image acquisitions of the head, neck, chest, abdomen and pelvis to the level of the midthigh, obtained at one-hour post radiopharmaceutical administration contemporaneously interpreted with the current CT of the chest, abdomen and pelvis dated 03/18/2023 via coregistration reveal: SERUM GLUCOSE LEVEL: 79 mg/dL HEIGHT: 69 inches WEIGHT: 191 pounds FINDINGS: HEAD/NECK: There is no evidence of abnormal increased glucose metabolism in the pharyngeal mucosal space, parapharyngeal space, oropharynx, bilateral-lateral and anterior neck, hypopharynx and distribution of the larynx. The visualized portion of the cerebral cortical-subcortical structures demonstrate symmetric and preserved glucose metabolism. CHEST: Facilitated FDG uptake is noted in the right upper posterior lung zone, right upper lobe. The calculated maximum standard uptake value is 13.3. The maximal axial diameter of the metabolic, morphologic abnormality is 28.[address] of the chest demonstrates the following anatomic characteristics: Ventricular pacemaker placement is defined. Atherosclerotic calcification is defined in the thoracic aorta without evidence of dilatation, aneurysm formation. Coronary artery calcification is observed. Mediastinal and bilateral axillary soft tissue densities are ametabolic. There are no additional parenchymal densities-nodules defined in the right and left hemithorax with quantitatively significant increased FDG uptake. ABDOMEN/PELVIS: Enhanced labeled glucose metabolism is identified in the left upper abdomen associated with the left adrenal gland. The calculated maximum standard uptake value is 2.9. Normal physiologic distribution of the radiopharmaceutical is identified in the hepatic (3.7) and splenic parenchyma, both renal units, urinary bladder, and visualized intestinal tract. Diffuse intestinal tract is identified in all four quadrants of the abdominal-pelvic mesentery. CT of the abdomen and pelvis is remarkable for the following: Atherosclerotic calcification is defined in the abdominal aorta with a maximal axial diameter of 42.1 mm. Abdominal and pelvic arterial calcification is observed. Calcification is defined within the prostate gland. Right and left inguinal soft tissue demonstrates no evidence of increased tracer uptake. Calcification is defined in the bilateral kidneys. SKELETAL: Facilitated uptake is noted in the intervertebral disc space of the fourth and fifth lumbar vertebra to the left of midline consistent with degenerative sclerosis and degenerative changes. PET/PET/CT Tumor Base -Thigh Init IMPRESSION: 1. ABNORMAL EXAMINATION INDICATIVE OF MALIGNANT-VIABLE NEOPLASM. 2. Increased radiopharmaceutical concentration defined in the right upper lung field, right upper lobe fulfills quantitative criteria for viable neoplasm. Histopathologic analysis is recommended. 3. Facilitated uptake noted in the distribution of the left adrenal gland fulfills quantitative criteria for viable adrenal gland neoplasm. Electronic Signature Scott Otoole D.O. Accurate Quantification of SUVs for this report are calculated using the exclusive [employer]. (U.S. Patent No. [phone], 674, [phone] B2 [phone] [place] patent [phone]). Standardization and correction of the FDG SUV metric via [employer] technology allow for vendor non-specific objective quantitative examination comparison and optimization of the sensitivity and specificity of the FDG PET-CT examination. . [email or web address] Electronically Signed: Scott Otoole, at 23:59 EDT ,
== END | disposition home or self-care (01) ==
PROVIDERS: PCP Student in an Organized Health Care Education/Training Program; Referring Provider Nurse Practitioner Acute Care; Visit Provider Nurse Practitioner Acute Care
DX: C34.11 Malignant neoplasm of upper lobe, right bronchus or lung (principal)
CPT/HCPCS: 78815; A9552

== ENCOUNTER → 2023-04-04 | Outpatient (CLI) | payer MEDICARE, SELFPAY ==
[2023-04-04] VITALS (9 sets, daily range): BP systolic 119–160; BP diastolic 53–71; PULSE 63–81; RESP 12–18; TEMP 37.1; O2SAT 92–97; BMI 28.0
--- NOTE | 2023-04-04 | ASPIGT_PTH ---
PATIENT: TABATHA DOSS LOC: CT U#:[id number] AGE/SX: 78/M ROOM: RE04/04/[address]: Dr. Pj Ardon MD : 1945 BED: DIS: 04/04/2023 SPEC #: [id number] RECD: 04/04/23 09:42 STATUS: TATA REAlessandro #: [id number] PAULA: 04/04/23 00:[address]: Pj Ardon DEPT: SURGICAL PATHOLOGY RECD BY: Isaac Motta ENTERED: 04/04/23 09:43 SP TYPE: ASP RAD OTHR DR: Dr. Jada Vázquez MD Tissues: Adrenal gland, NOS Procedures: FNA Specimen Adequacy Special Stain Group II Surgery Specimen Level IV Imprint (control) HEADER OPERATION: CT-guided left adrenal biopsy PRE-OP DIAGNOSIS: Left adrenal gland mass TISSUE SUBMITTED: Left adrenal gland mass MICROSCOPIC DIAGNOSIS Left adrenal gland mass, CT-guided core biopsy: Benign adrenal gland tissue with focal minimal chronic inflammation, negative for malignancy. See comment. KILEY:chico 04/07/2023 COMMENT The specimen is evaluated at the time of biopsy by Dr. Rivers. Immediate Evaluation = Negative for malignant cells. Correlation with clinical, radiologic findings and appropriate follow up are necessary. Please make reference to previous specimen ([id number]), right upper lung mass, CT-guided core biopsy with diagnosis of non-small cell carcinoma, favor squamous cell carcinoma. Case has been reviewed in consultation with Dr. Larios who concurs with the above diagnosis. IDC:AM MICROSCOPIC DESCRIPTION Slides are reviewed. GROSS DESCRIPTION Received in fixative is one container labeled with the patient's name and designated left adrenal. The specimen consists of multiple elongated fragments of hammer soft tissue that in aggregate measure 1.5 x 0.1 x 0.1 cm. The specimen is totally submitted in one cassette. Two touch imprints are prepared at the time of core biopsy. / KILEY:chico 04/04/2023 TC:5 CPT: 56882, 25875 ADDENDUM ADDENDUM ADDENDUM ADDENDUM ADDENDUM ADDENDUM ADDENDUM ADDENDUM ADDENDUM ADDENDUM 04/28/2023 10:26 ADDENDUM 04/28/2023 10:26 ADDENDUM 04/28/2023 10:26 ADDENDUM 04/28/2023 10:26 ADDENDUM 04/28/2023 10:26 This addendum is added to incorporate an outside pathology consultation report. The case was examined at [facility] (#[id number]) and the following diagnosis was rendered. Left adrenal gland mass, CT-guided core biopsy: Cores of benign adrenal gland tissue with focal chronic inflammation. Please see complete above mentioned consultation report in EMR
--- NOTE | 2023-04-04 07:39 | CT_ITS ---
PROCEDURE: CT GUIDED biopsy of the left adrenal gland. DATE: April 04, 2023. INDICATION: Male, 78 years old. Left adrenal nodule. History of lung cancer. PHYSICIAN: Ismael Allen M.D. RADIATION DOSAGE (If Supplied By Facility): CTDIvol = ( 18.7 ) mGy, DLP = ( 387.97 ) mGycm. Individualized dose optimization techniques were utilized. PROCEDURE: The risks, benefits, and alternatives to the procedure were explained to the patient. The specific risk of hemorrhage requiring further treatment or intervention was detailed and accepted. Follow-up instructions were discussed with the patient as well. Written informed consent was obtained. The patient was brought into the CT suite and placed in the supine position. . An appropriate entry site was identified. The overlying skin was prepped and draped in the usual sterile fashion. 1% lidocaine was administered subcutaneously for local anesthesia. Conscious sedation was performed. The patient received 2 mg of Versed and 50 mcg of fentanyl intravenously. Conscious patient was started at 8:57 AM and terminated at 9:20 AM. The patient was monitored by the department nurse. Under CT guidance, a total of 6 passes were performed utilizing an 18-gauge core biopsy needle system. The specimens were then placed in the appropriate fluid and transported to the laboratory for analysis. Hemostasis was obtained. The patient tolerated the procedure well without immediate complications. CT/Biopsy/Inj or Needle Placement IMPRESSION: Successful CT guided biopsy of the left adrenal nodule, as described above. Conscious sedation protocol was followed. Electronically Signed: Ismael Allen MD at 9:55 EDT ,
[2023-04-04 07:58] LABS: Absolute Lymphocyte Count 2.17 X10^3/uL (0.83-4.51); Absolute Neutrophil Count 4.6 X10^3/uL (2.0-7.7); Basophil% 1.3 % (0-1); Eosinophil# 0.24 X10^3/uL; Eosinophils% 3.1 % (0-5); Hemoglobin 15.3 g/dL (13.0-16.5); Lymphocyte # 2.17 X10^3/ul (0.83-4.51); Lymphocyte % 28.4 % (19-41); Mean Corp Hgb Conc 34.8 g/dL (32-36); Mean Corpuscular Hgb 32.3 pg (27.0-32.0); Mean Corpuscular Volume 92.8 fL (80-94); Mean Platelet Vol. 9.5 fl (6.2-12.0); Monocyte# 0.55 X10^3/uL; Monocyte% 7.2 % (0-10); NRBC Flagged by Analyzer 0 % (0-5); Neutrophil # 4.55 X10^3/uL (2.7-7.7); Neutrophil % 59.7 % (47-70); Platelet Count 205 K/mm3 (150-450); RBC Distribution Width CV 12.6 % (11.6-14.6); RBC Distribution Width SD 43.3 fl (35.1-43.9); Red Blood Count 4.74 M/mm3 (4.6-6.2); White Blood Count 7.6 K/mm3 (4.4-11.0)
[2023-04-04 08:15] LABS: International Normalized Ratio 1.1; Prothrombin Time (Protime)PT. 13.9 SECONDS (11.7-14.9)
[2023-04-04] MEDS: 0.9% Saline Lock 10 ML Syringe IV (08:27)
[2023-04-04] MEDS: 0.9% Normal Saline (250mL Bag) 250 ML 15 ML IV (08:49)
[2023-04-04] MEDS: Midazolam 2 MG/2 ML Syringe IV (08:57)
[2023-04-04] MEDS: fentaNYL 100 MCG/2 ML Ampul IV (08:59)
[2023-04-04] MEDS: Lidocaine 2% (20 ml mdv) 20 ML Vial INFILT (09:12)
== END | disposition home or self-care (01) ==
PROVIDERS: PCP Student in an Organized Health Care Education/Training Program; Referring Provider Internal Medicine Medical Oncology; Visit Provider Internal Medicine Medical Oncology
DX: Z01.812 Encounter for preprocedural laboratory examination (principal); C34.11 Malignant neoplasm of upper lobe, right bronchus or lung; I63.9 Cerebral infarction, unspecified; R94.8 Abnormal results of function studies of other organs and systems
CPT/HCPCS: 49180; 36415; 77012; 85025; 85610; 85730; 88172; 88305; 88313; 99156; J7050; A4216

== ENCOUNTER → 2023-04-08 | Outpatient (CLI) | payer MEDICARE, SELFPAY ==
[2023-04-08] VITALS (11 sets, daily range): BP systolic 135–152; BP diastolic 66–81; PULSE 74–85; RESP 16–18; O2SAT 90–97
--- NOTE | 2023-04-08 10:06 | MRI_ITS ---
STUDY: MRI BRAIN WITH AND WITHOUT CONTRAST REASON FOR EXAM: Male, 78 years old. STAGING LUNG CA TECHNIQUE: Standardized multiplanar fat and water weighted pulse sequences were obtained. IV 17ml Clariscan was administered for the contrast portion of the examination. COMPARISON: CT of the brain April 06, 2022 MRI of the brain October 17, 2014 FINDINGS: Mild atrophy and periventricular white matter ischemic changes without mass effect or restricted diffusion.. Normal bilateral basal ganglia. Normal thalami. There is no extra-axial fluid accumulation. Normal flow voids within the major intracranial circulation suggesting patency by spin echo criteria. Normal venous enhancement. There is no enhancing intra-axial or extra-axial abnormality. Normal sella turcica, pituitary gland, infundibular stalk, optic chiasm and hypothalamus. Normal tectal plate and pineal gland. Normal midbrain, antonio and medulla. Normal cerebellum. Normal basal cisterns. Normal bilateral temporal bones. Normal bilateral internal auditory canals. Postsurgical changes of the orbits.. Minor mucosal thickening in the ethmoid air cells bilaterally.. Normal calvarium and skull base. Normal visualized soft tissue structures. Normal visualized upper cervical spine. MRI/Brain W/WO Contrast IMPRESSION: Mild periventricular white matter ischemic changes without evidence for acute infarct.. No enhancing lesions to suggest presence of brain metastasis Electronically Signed: Duy Turner MD at 16:56 EDT ,
--- NOTE | 2023-04-08 10:06 | MRI_ITS ---
STUDY: MRI THORACIC SPINE WITH AND WITHOUT CONTRAST REASON FOR EXAM: Male, 78 years old. STAGING LUNG CA TECHNIQUE: IV 17ml clariscan was administered for the contrast portion of the examination. COMPARISON: None. FINDINGS: Normal kyphosis of the thoracic spine. There is no substantial scoliosis. T1-2, T2-3, T3-4, T4-5, T5-6, T6-7, T7-8, T8-9, T9-10, T10-11, T11-12: Normal endplates. Normal disc hydration, heights and morphology of the corresponding intervertebral discs. Normal central canal and intervertebral neural foramina at the corresponding levels. Normal visualized thoracic cord. Normal conus medullaris that terminates at the . The soft tissue structures are unremarkable. There is no enhancing abnormality. MRI/Spine Thoracic W/WO Contrast IMPRESSION: Normal unenhanced and enhanced MRI examination of the thoracic spine. Electronically Signed: Duy Turner MD at 16:58 EDT ,
--- NOTE | 2023-04-08 10:06 | MRI_ITS ---
STUDY: MRI LUMBAR SPINE WITH AND WITHOUT CONTRAST REASON FOR EXAM: Male, 78 years old. STAGING LUNG CA TECHNIQUE: Standardized fat and water weighted pulse sequences were obtained in the sagittal and axial planes. IV 17ml clariscan was administered for the contrast portion of the examination. COMPARISON: None FINDINGS: T12-L1: Normal endplates. Normal disc height, desiccation and minimal annular bulge.. Normal bilateral facet joints. Normal central canal and bilateral lateral recesses. Normal bilateral intervertebral neural foramina. Normal lumbar lordosis. There is no substantial scoliosis. Normal conus medullaris that terminates at T12-L1 L1-2: Normal endplates. Normal disc height, desiccation mild annular bulge.. Normal bilateral facet joints. Normal central canal and bilateral lateral recesses. Mild bilateral neural foraminal stenosis L2-3: Normal endplates. Normal disc height, desiccation mild annular bulge.. Normal facet joints. Normal central canal and bilateral lateral recesses. Normal bilateral intervertebral neuroforamina L3-4: Normal endplates. Normal disc height, desiccation mild annular bulge.. Facet arthropathy. Normal central canal and bilateral lateral recesses. Severe bilateral neural from stenosis exaggerated by shortened pedicles L4-5: Degenerative endplate changes and osteophytic spurring. Normal disc height, desiccation and moderate bulging disc osteophyte complex.. Facet arthropathy and mild thickening of ligamenta flava.. Moderate narrowing of the central canal exaggerated by posterior epidural fat. Moderate bilateral lateral recess stenosis and severe neural foramina stenosis exaggerated by shortened pedicles. L5-S1: Normal endplates. Normal disc height, desiccation mild annular bulge.. Facet arthropathy and mild thickening of ligamenta flava.. Normal central. And moderate bilateral recess stenosis and neural foraminal encroachment exaggerated by shortened pedicles Normal visualized sacral ala. Normal visualized paraspinous soft tissue structures. MRI/Spine Lumbar W/WO Contrast IMPRESSION: No evidence for acute fracture or other significant bony pathology. No evidence for metastatic disease Multilevel spinal stenosis secondary to disc disease and bony hypertrophy exaggerated by shortened pedicles Incidental finding of distal abdominal aortic aneurysm measuring approximately 3.9 x 3.8 cm Electronically Signed: Duy Turner MD at 17:06 EDT ,
[2023-04-08 10:56] LABS: EGFR FINGERSTICK > 60.0000 mL/min (>60)
== END | disposition home or self-care (01) ==
PROVIDERS: PCP Student in an Organized Health Care Education/Training Program; Referring Provider Internal Medicine Medical Oncology; Visit Provider Internal Medicine Medical Oncology
DX: C34.11 Malignant neoplasm of upper lobe, right bronchus or lung (principal)
CPT/HCPCS: 70553; 72157; 72158; A9575

== ENCOUNTER 2023-08-19 06:58 | Outpatient (CLI) | payer MEDICARE, SELFPAY ==
--- OUTSIDE RECORDS SUMMARY | 2023-08-19 07:08 | XMS RPT_ITS | CCD ---
Author Name Unknown Address [address] [place] [address] Organization [facility] Care Team Providers Care Protective Clothing Issuer Name Role Phone KHASHU, ABAHY Unavailable Unavailable KHASHU, ABAHY Unavailable Unavailable NO REFERRING Unavailable Unavailable KASSIE NAGY Unavailable Unavailable JUSTIN ANDERSON Unavailable Unavailable Jada Peters MD Primary Care Provider ASHER GAITAN Attending Unavaila ble JADA PETERS Primary Care Unavailable CALI HERNANDEZ Admitting UnavaCALI Maravilla Referring Unavai lable JADA PETERS Primary Care Unavailable JADA PETERS Primary Care Unavailable SYSTEM, PROVIDER NOT IN Referring Unavaila ALIVIA Devi Consulting Unavaila EDWARD Horton Admitting Unavailable ELIECER RICHARD Attending Unavailable ASHER GAITAN Attending Unavaila ble JADA PETERS Primary Care Unavailable Eloina Claros RN Unavailable Unavailable Reva FRANCO/Pj ACE Unavailable Jada Peters MD Primary Care Provider [phone] Li Coppola MD Unavailable DEMETRI CORDOVA Primary Care Unavailable DEMETRI CORDOVA Attending Unavailable JADA PETERS MD Consulting Unavailable DEMETRI CORDOVA Admitting Unavailable PROVIDER, UNKNOWN Consulting Unavailable PROVIDER, UNKNOWN Consulting Unavailable JADA PETERS MD Admitting Unavailable JADA PETERS MD Primary Care Unavailable JADA PETERS MD Consulting Unavailable JADA PETERS MD Attending Unavailable PROVIDER, UNKNOWN Consulting Unavailable PROVIDER, UNKNOWN Consulting Unavailable GLADYS PEÑA MD Primary Care Unavailable GLADYS PEÑA MD Attending Unavailable JADA PETERS MD Consulting Unavailable GLADYS PEÑA MD Admitting Unavailable JADA PETERS MD Referring Unavailable PROVIDER, UNKNOWN Consulting Unavailable PROVIDER, UNKNOWN Consulting Unavailable JADA PETERS MD Consulting Unavailable CSERNYGEOVANY, JOHN DO Primary Care Unavailable ADELINA, JOHN DO Attending Unavailable JOHN SAHU DO Admitting Unavailable JADA PETERS MD Referring Unavailable PROVIDER, UNKNOWN Consulting Unavailable PROVIDER, UNKNOWN Consulting Unavailable JADA PETERS MD Primary Care Unavailable JADA PETERS MD Attending Unavailable JADA PETERS MD Consulting Unavailable JADA PETERS MD Admitting Unavailable PROVIDER, UNKNOWN Consulting Unavailable PROVIDER, UNKNOWN Consulting Unavailable JADA PETERS MD Primary Care Unavailable JADA PETERS MD Consulting Unavailable JADA PETERS MD Attending Unavailable JADA PETERS MD Admitting Unavailable PROVIDER, UNKNOWN Consulting Unavailable PROVIDER, UNKNOWN Consulting Unavailable JADA PETERS MD Admitting Unavailable JADA PETERS MD Primary Care Unavailable JADA PETERS MD Consulting Unavailable JADA PETERS MD Attending Unavailable PROVIDER, UNKNOWN Consulting Unavailable PROVIDER, UNKNOWN Consulting Unavailable LI COPPOLA Attending Unavailable AMAISETTI, JADA Primary Care Unavailable KALGERMANTTI, JADA Referring Unavailable LI COPPOLA Attending Unavailable KALISETTI, JADA Primary Care Unavailable KALISETTI, JADA Referring Unavailable LI COPPOLA Attending Unavailable LI COPPOLA Referring Unavailable KALISETTI, JADA Primary Care Unavailable AMARILYS NAPOLES A Referring Unavailable AMARILYS NAPOLES A Attending Unavailable KALISETTI, JADA Primary Care Unavailable LI COPPOLA Attending Unavailable KALGERMANTTI, JADA Referring Unavailable KALISETTI, JADA Primary Care Unavailable KATHRYN TOBIAS Referring Unavailable KALISECRISTYI, JADA Primary Care Unavailable LI COPPOLA Attending Unavailable LI COPPOLA Admitting Unavailable CONSULT, ANESTHESIA PAIN MED Consulting Elizabeth vailable KALISETTI, JADA Primary Care Unavailable VANESAI, JADA Referring Unavailable LI COPPOLA Admitting Unavailable LI COPPOLA Attending Unavailable KATHRYN TOBIAS Referring Unavailable KALISETTI, JADA Primary Care Unavailable LI COPPOLA Admitting Unavailable LI COPPOLA Attending Unavailable JADA PETERS Primary Care Unavailable JADA PETERS Referring Unavailable TURNERPaola PJ Referring Unavailable KATHRYN TOBIAS Attending Unavailable JADA PETERS Primary Care Unavailable LI COPPOLA Attending Unavailable KATHRYN TOBIAS Referring Unavailable JADA PETERS Primary Care Unavailable LI COPPOLA Referring Unavailable LI COPPOLA Attending Unavailable JADA PETERS Primary Care Unavailable KATHRYN TOBIAS Attending Unavailable JADA PETERS Primary Care Unavailable JADA PETERS Referring Unavailable MERON MCKEON Referring UnavailMERON Valenzuela Attending [facility] JADA PETERS Primary Care Unavailable Allergies Allergy Classification Reported Allergen(s) Allergy Type Date of Onset Reaction(s) Facility (12 sources) Penicillins; Translations: [PENICILLINS] Propensity to adverse reactions (disorder) 6 Anaphylaxis [facility] Repository (1 source) Penicillins Drug allergy (disorder) [facility] Repository Medications Current Medications Medication Drug Class(es) Dates Sig (Normalized) Sig (Original) acetaminophen 325 mg oral tablet (4 sources) Start: 05-29-2023 take 2 tablets by mouth every four hours as needed Acetaminophen 325 MG tablet Take 2 tablets by mouth every 4 hours as needed for Mild Pain. 0 05/29/2023 Active Completed/Discontinued Medications Medication Drug Class(es) Dates Sig (Normalized) Sig (Original) albuterol 0.833 mg/ml / ipratropium bromide 0.167 mg/ml inhalation solution (1 source) Anticholinergic, beta2-Adrenergic Agonist Start: 05-28-2023 End: 05-30-2023 take 3 mL by inhalation every six hours Ipratropium-albute rol (DUONEB) 0.5-2.5 (3) MG/3ML nebulizer solution 3 mL amLODIPine 10 mg oral tablet (13 sources) Dihydropyridine Calcium Channel Tami Start: 05-29-2023 End: 05-30-2023 take 10 mg by mouth once daily 10 mg, Oral, DAILY, First dose on [facility] 05/29/23 at 1045, Until Discontinued Problems Active Problems Problem Classification Problem Date Documented Date Episodic/Chronic Cancer of bronchus; lung (20 sources) Squamous cell carcinoma of right lung; Translations: [Malignant neoplasm of unspecified part of right bronchus or lung] Onset: 3 Resolved: 3 04-15-2023 Chronic Conduction disorders (12 sources) Heart block ; Translations: [Conduction disorder, unspecified] Onset: 3 01-09-2023 Chronic Coronary atherosclerosis and other heart disease (7 sources) Coronary arteriosclerosis; Translations: [Atherosclerotic heart disease of [place] coronary artery without angina pectoris] Onset: 6 01-10-2023 Chronic Diabetes mellitus without complication (2 sources) Latent autoimmune diabetes mellitus in adult; Translations: [Other specified diabetes mellitus without complications] Onset: 6 01-15-2016 Chronic Diseases of white blood cells (3 sources) Leukocytosis; Translations: [Elevated white blood cell count, unspecified] Onset: 3 05-30-2023 Chronic Disorders of lipid metabolism (7 sources) Hyperlipidemia; Translations: [Hyperlipidemia, unspecified] Onset: 6 01-15-2016 Chronic Esophageal disorders (4 sources) Gastroesophageal reflux disease; Translations: [Gastro-esophageal reflux disease without esophagitis] Onset: 3 05-27-2023 Chronic Essential hypertension (6 sources) Hypertensive disorder; Translations: [Essential (primary) hypertension] Onset: 6 01-15-2016 Chronic Neoplasms of unspecified nature or uncertain behavior (4 sources) Neoplastic disease; Translations: [Neoplasm of unspecified behavior of unspecified site] Onset: 3 05-06-2023 Episodic Nonspecific chest pain (3 sources) Chest pain; Translations: [Chest pain, unspecified] Onset: 3 01-09-2023 Episodic Other circulatory disease (1 source) Elevated blood pressure; Translations: [Elevated blood-pressure reading, without diagnosis of hypertension] 01-09-2023 Episodic Other circulatory disease (2 sources) Elevated blood-pressure reading, without diagnosis of hypertension; Translations: [Elevated blood-pressure reading, without diagnosis of hypertension] Onset: 3 Episodic Other lower respiratory disease (2 sources) Dyspnea; Translations: [Shortness of breath] Onset: 3 01-09-2023 Episodic Other lower respiratory disease (1 source) Shortness of breath; Translations: [Shortness of breath] Onset: 3 Episodic Other nervous system disorders (2 sources) Other acute postprocedural pain; Translations: [Other acute postprocedural pain] Onset: 3 Episodic Other nutritional; endocrine; and metabolic disorders (4 sources) Obese class I; Translations: [Obesity, unspecified] Onset: 3 05-06-2023 Chronic Other nutritional; endocrine; and metabolic disorders (3 sources) Body mass index 25-29 - overweight; Translations: [Overweight] Onset: 3 05-30-2023 Episodic Other screening for suspected conditions (not mental disorders or infectious disease) (3 sources) Prolonged QT interval; Translations: [Abnormal electrocardiogram [ECG] [EKG]] Onset: 3 01-09-2023 Episodic Pneumonia (except that caused by tuberculosis or sexually transmitted disease) (3 sources) Community acquired pneumonia; Translations: [Pneumonia, unspecified organism] Onset: 3 01-09-2023 Episodic Residual codes; unclassified (4 sources) Obstructive sleep apnea syndrome; Translations: [Obstructive sleep apnea (adult) (pediatric)] Onset: 3 05-27-2023 Chronic Residual codes; unclassified (4 sources) At moderate risk of venous thromboembolism; Translations: [Other specified personal risk factors, not elsewhere classified] Onset: 3 05-27-2023 Episodic Residual codes; unclassified (2 sources) Other specified health status; Translations: [Other specified health status] Onset: 3 Episodic Unclassified (1 source) Unknown / UNK(Unknown) Onset: 3 Past or Other Problems Problem Classification Problem Date Documented Date Episodic/Chronic Administrative/social admission (4 sources) Patient encounter status; Translations: [Counseling, unspecified] Onset: 05-27-2023 Resolved: 05-30-2023 05-27-2023 Episodic Lymphadenitis (3 sources) Mediastinal lymphadenopathy; Translations: [Localized enlarged lymph nodes] Onset: 04-28-2023 04-28-2023 Episodic Mood disorders (8 sources) Mood disorders Onset: 04-22-2023 Resolved: 06-17-2023 04-22-2023 Noninfectious gastroenteritis (1 source) Noninfective gastroenteritis and colitis, unspecified; Translations: [Noninfective gastroenteritis and colitis, unspecified] Onset: 12-06-2022 Episodic Other nervous system disorders (5 sources) Acute postoperative pain; Translations: [Other acute postprocedural pain] Onset: 05-27-2023 Resolved: 05-30-2023 05-27-2023 Episodic Results Test Name Value Interpretation Reference Range Facil ity Vital Signs Date Time Vital Sign Value Performing Clinician Facility 05-30-2023 08:29-0400 Body temperature 98.01 [degF] Li Coppola MD Work Phone: [facility] 05-30-2023 08:29-0400 Diastolic blood pressure 72 mm[Hg] Li Coppola MD Work Phone: [facility] 05-30-2023 08:29-0400 Heart rate 101 /min Li Coppola MD Work Phone: [facility] 05-30-2023 08:29-0400 Respiratory rate 24 /min Li Coppola MD Work Phone: [facility] 05-30-2023 08:29-0400 SaO2% (BldA) [Mass fraction] 93 % Li Coppola MD Work Phone: [facility] 05-30-2023 08:29-0400 Systolic blood pressure 158 mm[Hg] Li Coppola MD Work Phone: [facility] 05-30-2023 06:54-0400 Body mass index (BMI) [Ratio] 29.62 kg/m2 Li Coppola MD Work Phone: [facility] 05-30-2023 06:54-0400 Body weight 90.99 kg Li Coppola MD Work Phone: [facility] 05-28-2023 05:21-0400 Body height 175.3 cm Li Coppola MD Work Phone: [facility] 05-06-2023 11:05-0400 Body mass index (BMI) [Ratio] 30.11 kg/m2 Li Coppola MD Work Phone: [facility] 05-06-2023 11:05-0400 Body temperature 97.2 [degF] Li Coppola MD Work Phone: [facility] 05-06-2023 11:05-0400 Body weight 89.81 kg Li Coppola MD Work Phone: [phone] [place] [address] 05-06-2023 11:05-0400 Diastolic blood pressure 68 mm[Hg] Li Coppola MD Work Phone: [facility] 05-06-2023 11:05-0400 Heart rate 67 /min Li Coppola MD Work Phone: [facility] 05-06-2023 11:05-0400 Respiratory rate 18 /min Li Coppola MD Work Phone: [facility] 05-06-2023 11:05-0400 SaO2% (BldA) [Mass fraction] 95 % Li Coppola MD Work Phone: [facility] 05-06-2023 11:05-0400 Systolic blood pressure 155 mm[Hg] Li Coppola MD Work Phone: [facility] 04-28-2023 15:05-0400 Diastolic blood pressure 70 mm[Hg] Li Coppola MD Work Phone: [facility] 04-28-2023 15:05-0400 Heart rate 81 /min Li Coppola MD Work Phone: [facility] 04-28-2023 15:05-0400 Respiratory rate 18 /min Li Coppola MD Work Phone: [facility] 04-28-2023 15:05-0400 SaO2% (BldA) [Mass fraction] 93 % Li Coppola MD Work Phone: [facility] 04-28-2023 15:05-0400 Systolic blood pressure 145 mm[Hg] Li Coppola MD Work Phone: [facility] 04-28-2023 14:42-0400 Body temperature 97.59 [degF] Li Coppola MD Work Phone: [facility] 04-28-2023 11:25-0400 Body mass index (BMI) [Ratio] 29.65 kg/m2 Li Coppola MD Work Phone: [facility] 04-28-2023 11:25-0400 Body weight 88.45 kg Li Coppola MD Work Phone: [facility] 01-14-2023 12:06-0400 Body temperature 98.01 [degF] Cali Peoples DO Work Phone: [facility] 01-14-2023 12:06-0400 Diastolic blood pressure 86 mm[Hg] Cali Peoples DO Work Phone: [facility] 01-14-2023 12:06-0400 Heart rate 77 /min Cali Peoples DO Work Phone: [facility] 01-14-2023 12:06-0400 Respiratory rate 17 /min Cali Peoples DO Work Phone: [facility] 01-14-2023 12:06-0400 SaO2% (BldA) [Mass fraction] 96 % Cali Peoples DO Work Phone: [facility] 01-14-2023 12:06-0400 Systolic blood pressure 134 mm[Hg] Cali Peoples DO Work Phone: [facility] 01-09-2023 22:00-0400 Body height 175.3 cm Cali Peoples DO Work Phone: [facility] 01-09-2023 22:00-0400 Body mass index (BMI) [Ratio] 28.38 kg/m2 Cali Peoples DO Work Phone: [facility] 01-09-2023 22:00-0400 Body weight 87.18 kg Cali Hernandez DO Work Phone: [facility] Encounters Encounter Date Encounter Type Care Provider Facility Start: 07-30-2023 End: 07-30-2023 ambulatory JADA CORNELIUS [facility] Start: 07-09-2023 End: 07-09-2023 Emergency department patient visit JADA CORNELIUS [facility] Start: 06-17-2023 ambulatory LI COPPOLA [facility] ty:[facility] Start: 06-17-2023 End: 06-17-2023 Subsequent hospital visit by physician Amarilys Napoles [employer] ASSOCIATE [employer]ER[employer] SPRAYER Work Phone: [facility] Procedures Date Procedure Procedure Detail Performing Clinician Start: 06-17-2023 Radiologic exam ches t 2 views Amarilys Napoles [employer] ASSOCIATE TE[employer]ER-[employer]UE SPRAYER Work Phone: Start: 05-30-2023 Radiologic exam ches t single view Amarilys Napoles BRANCH ASSOCIATE TE[employer]ER-[employer]UE SPRAYER Work Phone: Start: 05-30-2023 Radiologic exam ches t single view Eloina Carey [employer] ASSOCIATE TE[employer]ER-[employer]UE SPRAYER Work Phone: Start: 05-30-2023 Assay of magnesium Kalee Mckeon PAC Work Phone: Start: 05-30-2023 CBC AND ELECTRONIC DIFF Meron Mckeon PAC Work Phone: Start: 05-30-2023 Complete blood count with white cell differential, automated Meron Mckeon PAC Work Phone: Start: 05-29-2023 Radiologic exam ches t single view Meron Mckeon PAC Work Phone: Start: 05-29-2023 Assay of magnesium Kalee Wang Diefenderfer PAC Work Phone: Start: 05-29-2023 CBC AND ELECTRONIC DIFF Meron Wang Diefenderfer PAC Work Phone: Start: 05-29-2023 Complete blood count with white cell differential, automated Meron Wang Diefenderfer PAC Work Phone: Start: 05-29-2023 Oscillating positive expiratory pressure (flutter) physiotherapy Meron Wang Diefenderfer PAC Work Phone: Start: 05-28-2023 Oscillating positive expiratory pressure (flutter) physiotherapy Meron Wang Diefenderfer PAC Work Phone: Start: 05-28-2023 DEVICE EVALUATION Other Other Start: 05-28-2023 Radiologic exam ches t single view Meron Wang Diefenderfer PAC Work Phone: Start: 05-28-2023 End: 05-28-2023 Assay of urea nitrogen quantitative Meron Wang Diefenderfer PAC Work Phone: Start: 05-28-2023 CBC AND ELECTRONIC DIFF Meron Wang Diefenderfer PAC Work Phone: Start: 05-28-2023 Complete blood count with white cell differential, automated Meron Wang Diefenderfer PAC Work Phone: Start: 05-28-2023 End: 05-28-2023 [facility] gd[facility] dx w/cell washg spx Li Coppola MD Work Phone: Start: 05-28-2023 End: 05-28-2023 Thoracoscopy w/lobectomy single lobe Li Coppola MD Work Phone: Start: 05-28-2023 End: 05-28-2023 Thorcoscpy w/mediastinl & regionl lymphdenectomy Li Coppola MD Work Phone: Start: 05-28-2023 End: 05-28-2023 CONTINUOUS CARDIAC MONITORING STRIP Other Other Start: 05-28-2023 ABORH TYPE RECONFIRMATION Cornelio Stevens MD Work Phone: Start: 05-06-2023 Antibody screen [facility] [employer] Start: 05-06-2023 Antibody screen LI SAMANIEGO Plan of Treatment Date Care Activity Detail Author Start: 2030 Tetanus vaccination [facility] Start: 07-30-2023 End: 07-30-2023 Patient encounter procedure 07/30/2023 11:40 AM EST Office Visit Division of Medical Oncology at [facility] [address] [place] [phone] Kathryn Tobias MD [address] [place] [id number] Division of Medical Oncology at [facility] Start: 07-12-2023 Hemoglobin A1c measurement A1C [facility] Start: 06-17-2023 End: 06-17-2023 Patient encounter procedure 06/17/2023 12:15 PM EST Office Visit Division of Thoracic Surgery at [facility] [address] [place] [id number] Li Coppola MD [address] [place] [id number] Division of Thoracic Surgery at [facility] Start: 06-11-2023 End: 06-11-2023 [facility] gdnce dx w/cell washg spx BRONCHOSCOPY FLEXIBLE DIAGNOSTIC NSCLC of right lung 06/11/2023 11:15 AM EST [facility] Start: 06-11-2023 End: 06-11-2023 Evaluation and management of inpatient [facility] PERIOP Immunizations Immunization Date Immunization Notes Care Provider Fa cility 04-22-2022 influenza virus vaccine, unspecified formulation Li Coppola MD Work Phone: [facility] Payers Date Payer Category Payer Medicare [id number] 2022 Medicare [id number] 2013 Medicare [id number] 1945 Unknown [id number] 2.16. [id number] 1945 Unknown [id number] 2.16. 840.1.035370.3.579.2.902 1945 Unknown [id number] 2.16. 840.1.473562.3.579.2.902 1945 Unknown [id number] 2.16. 840.1.034204.3.579.2.902 1946 Unknown [id number] 2.16.8 40.1.531422.3.579.2.651 1945 Unknown [id number] 2.16.8 40.1.821257.3.579.2.651 1945 Unknown [id number] 2.16.8 40.1.018951.3.579.2.651 1945 Unknown [id number] 2.16.84 0.1.485324.3.579.2.651 1945 Unknown [id number] 2.16.84 0.1.533518.3.579.2.651 1946 Unknown [id number] 2.16.84 0.1.894521.3.579.2.651 1946 Unknown [id number] 2.16.84 0.1.572860.3.579.2.651 1946 Unknown [id number] 2.16. 840.1.104263.3.579.2.594 1946 Unknown [id number] 2.16. 840.1.748027.3.579.2.594 1946 Unknown [id number] 2.16. 840.1.024927.3.579.2.594 1946 Unknown [id number] 2. 840.1.825187.3.579.2.594 1946 Unknown [id number] 2. 840.1.027078.3.579.2.594 1946 Unknown [id number] 2. 840.1.113694.3.579.2.594 1946 Unknown [id number] 2. 840.1.545160.3.579.2.594 1946 Unknown [id number] 2. 840.1.831259.3.579.2.594 1946 Unknown [id number] 2.0.1.599650.3.579.2.594 1946 Unknown [id number] 20.1.232031.3.579.2.594 1946 Unknown [id number] 2.0.1.289276.3.579.2.594 1946 Unknown [id number] 2. 840.1.758293.3.579.2.594 1946 Unknown [id number] 2.0.1.642193.3.579.2.594 1946 Unknown [id number] 20.1.785765.3.579.2.594 1945 Unknown [id number] 840.1.080960.3.579.2.594 Medicare [id number] Social History Date Type Detail Facility Start: 01-16-2016 End: 04-16-2023 Tobacco smoking status NHIS Ex-smoker [facility] End: 01-15-1993 History of tobacco use Current smoker [facility] End: 01-15-1993 History of tobacco use Cigarette Smoker [facility] Start: 01-13-2023 Alcohol intake Current non-drinker of alcohol (finding) [facility] Start: 01-13-2023 End: 06-17-2023 History of Social function [facility] Start: 01-13-2023 End: 06-17-2023 Tobacco use panel [facility] Start: 1945 Sex Assigned At Not on file [facility] Start: 01-09-2023 Gender identity Identifies as male gender (finding) [facility] Start: 01-15-2023 Sexual orientation Heterosexual (finding) [facility] Start: 04-16-2023 Tobacco use and exposure Smokeless tobacco non-user [facility] Start: 04-23-2023 End: 06-17-2023 Alcohol intake Ex-drinker (finding) [facility] How hard is it for y ou to pay for the very basics like food, housing, medical care, and heating Not hard at all [facility] In the past 12 month s, was there a time when you were not able to pay the mortgage or rent on time? No [facility] How often to you hav e a drink containing alcohol? Never [facility] (I/We) worried wheth er (my/our) food would run out before (I/we) got money to buy more. Never true [facility] Medical Equipment Procedure Code Equipment Code Equipment Origin al Text Equipment Identifier Dates Envelope Anti-Bacterial Aigis/Tyrx Pacer Resorbable Mesh - [id number], [id number]_[facility] FDA Start: 01-13-2023 Pacer [id number] Viridiana re Xt Dr Connors - [id number] , [id number]_[facility] FDA Start: 01-13-2023 Lead 5076-52 Cap sure Fix - [id number], [id number]_[facility] FDA Start: 01-13-2023 Mdt [id number] [place] Xt Dr Connors [id number] Start: 01-12-2023 Mdt 5076 Capsure fix Novus [id number]_[facility] Start: 01-12-2023 Clinical Notes 01-09-2023 to 05-30-2023 Nursing Notes - Abby Banks RN - 05/30/2023 12:35 PM EDTNursing Notes - Abby Banks RN - 05/30/2023 12:35 PM EDTNursing Notes - Amarilys Valentine RN - 05/30/2023 10:39 AM EDTMedications Note Date & Type Note Facility 05-30-2023 Nurse Note AVS reviewed with patient. All questions answered. [facility] 05-30-2023 Miscellaneous Notes AVS reviewed with patient. All questions answered. 05/30/23 1038 Referral Information Arrived From operating room Final Discharge Planning Discharge Disposition Home CM/SW AVS Portion Completed Yes Plan Plan Anticipating discharge to home today Patient/Family In Agreement With Plan yes Plan Comments Daughter will provide transportation home. Transport Request Mode of Transfer Private Vehicle [facility] PCRM Discharge Note Patient discussed in medical rounds for discharge to home today pending post chest tube pull CXR. PCRM met with the patient to discuss final discharge plan. Services for Discharge N/A Consults with Final Discharge Recommendations N/A Lines/Tubes/Drains/Wounds/Suppli es Chest tube removed this morning. Patient to keep dry dressing over the chest tube insertion site and cannot shower for 48 hours after the chest tube is pulled. Surgical incisions to be left open to air. Patient has no other lines/tubes/drains/wounds/suppli es upon discharge. Medications No barriers anticipated in obtaining discharge medications. No prior authorizations anticipated. Reconciliation of medications to be completed by the medical team. Durable Medical Equipment N/A Choice Was Patient Choice Provided: N/A Transportation Transportation will be provided by daughter. Education Discharge education provided by the medical team and updated in the After Visit Summary. Follow Up(s) Any follow up requested by the medical team arranged. Appointments in the After Visit Summary. [facility] [employer] [address] [address] Follow up on 06/17/2023 arrive for your walk in chest x-ray 30 min before your appt Division [facility] [address] 2[address] Floor [facility] [address] Follow up on 06/17/2023 Post-op appointment with Dr. Coppola at 12:15 pm Was Ambulatory PCRM added to the Care Team? No- Handoff criteria not met The PCRM has updated the patient's nurse regarding the final discharge plan. Risk of Readmission: 5.5 Category Reference: Low: 0% - 5% Medium - Low: 5.1% - 10% Medium - High: 10.1% - 16% High: 16.1% - 100% Readmission Risk Interventions Documented: Yes No other discharge needs have been identified at this time. This plan was developed in collaboration with the patient and caregiver/preferred decision maker. Patient and family are in agreement with final discharge plan. Please refer to AVS and medical record for additional information. Patient instructed to call with questions. PCRM will continue to follow with medical team for any additional discharge planning needs. If any changes to this individualized plan of care during evening and weekend hours and assistance is needed, please page the signal intelligence/electronic warfare PCRM at [phone]. DECLAN Harris, RN, ACM-RN Patient Care Metal Tile Setter 05/29/23 1041 Referral Information Arrived From operating room Readmission Information Was patient readmitted within 30 Days? Yes Information Source Information Source patient Information Source Name Tabatha (patient) Information Source Number See demographics Outpatient Providers Outpatient Providers Updated In IHIS Yes Contact Information News Agent/SW Added to Care Team Yes This Assembly Room Supervisor is Primary News Agent/SW Yes News Agent Name Amarilys Gomez News Agent's Social Work Contact Name Joana Armstrong Crime Lab Technician's Living Environment Lives With spouse Living Arrangements mobile home (Wheelchair ramp to enter. Spouse uses a walker to go up the ramp.) Provides Primary Care For spouse Caregiving Concerns Neighbors and daughter will provide care for spouse while patient is healing from this surgery Primary Care Provided By self Support System Immediate family;Neighbors Able to Return to Prior Arrangements yes Functional Status Patient's Functional Status Prior To This Admission? Independent Are There Status Changes This Admission? Yes Changes Observed Since Admission? Physical Concerns With Patient Being Able To Care For Themselves At Discharge? No Who Is Patient's Primary Contact For Discharge Planning, Education And Care For Discharge? Daughter Can Support Person Meet The Care Needs Of The Patient? Yes Employment/Financial Employed? Retired Employment/Financial Concerns no Source Of Income pension/[facility];social security Financial Concerns none Insurance Medical Insurance Verified Yes Prescription Coverage Yes Pharmacy updated in IHIS Yes Initial Discharge Planning Home Care Services (FIRMWARE DEVELOPER) No Home Therapies (FIRMWARE DEVELOPER) None DME (FIRMWARE DEVELOPER) Straight cane Medical Supplies (FIRMWARE DEVELOPER) Blood Pressure Monitor Patient Goal for Discharge Get better Anticipated discharge disposition Home Anticipated Changes Related to Illness none Current Discharge Risk high risk diagnoses (i.e., CHF, Stroke, DM, chronic pain, abdominal pain, nausea and vomiting);>65 years of age Transportation Available car;family or friend will provide Discharge Planning Comments Daughter will provide transportation home Assessment/Concerns to be Addressed Concerns To Be Addressed no discharge needs identified;denies needs/concerns at this time PCRM Initial Assessment PCRFelipe and THOMAS Armstrong met with Tabatha Shama Zohaib to complete the initial assessment. Explained role and function of PCRM in multidisciplinary team. Contact number provided for questions. Demographic information reviewed with patient/family and confirmed as correct. Reason for Admission: 78 y.o. male former smoker with history of AAA, KS (s/p stent placement x 4 on plavix), AV block s/p pacemaker placement, TIA, VANDANA who was initially referred by Dr. Tobias for surgical evaluation of right upper lobe squamous cell carcinoma. To review, he underwent a biopsy of the right upper lobe in [place] which demonstrated NSCLC favoring squamous cell carcinoma. PET scan on 03/18/23 demonstrated SUV 13.3 in the right upper lobe and 2.9 in the left adrenal gland. He underwent adrenal biopsy on 04/04/23, which was benign. He had an EBUS with FNA on 04/28/[address] Coppola; level 7 was negative (not adequate), 11R was negative and adequate, and 4R was negative (not adequate). He completed PFTs 05/06/2023 and previously had a stress test in December 2022 which was negative. He was taken to the operating room on 05/28/2023 for a flexible bronchoscopy, right robotic, right upper lobe lobectomy, and lymph node dissection. Estimated length of stay: 2-3 days Advanced directives Patient has Advanced Directives on file Lines/Drains/Tubes Chest tube will be removed prior to discharge Initial PCRM Discharge Planning Home with assistance from family PRN. Final plan will be determined closer to discharge, pending therapy and medical team recommendations. Patient/family verbalized understanding and agreement with the plan of care. Patient/family have no questions at this time. PCRM will continue to follow patient with multidisciplinary team for ongoing assessment of needs and for discharge planning. Medical team updated. Patient Interview Type of Readmission : Planned DECLAN Harris, RN, ACM-RN Patient Care Metal Tile Setter No acute change noted from previous assessment at this time unless otherwise indicated on the flow sheet and/or notes. Problem: Patient Care Overview Goal: Plan of Care Review Outcome: Ongoing On admission to [facility], from PACU a dual RN initial assessment of skin condition was performed by Jagruti Couch RN and Irene Sesay RN. Skin Assessment: Skin within defined limits:Yes. Right sided chest tube intact w/ +1 air leak, incisions with dermabond. Galloway in place. 2 PIV intact. Alfredito Score: 23 LDA Added:No Jagruti Couch RN Thoracic Surgery Operative Report Date: 05/28/23 Preoperative Diagnosis: right upper lobe squamous cell carcinoma Postoperative Diagnosis: right upper lobe squamous cell carcinoma Procedures Performed: Flexible Bronchoscopy Robotic-Assisted Thoracoscopic Right Upper Lobectomy Right Thoracoscopic Mediastinal and regional Lymph Node Dissection Intercostal Nerve Blocks. Surgeon: Li Coppola M.D. Shipping Processor: Alessandra Mace DO (fellow), Meron M Desoto, PA-C. Anesthesia Type: General Anesthesia. Estimated Blood Loss: 50 mL. Intravenous Fluid: See Anesthesia Record. Specimens: ID Type Source Tests Collected by Time Destination 1 : Level 8 lymph node #1 Permanent SURG PATH SURG PATH REQUEST Li Coppola MD 05/28/2023 0833 2 : Level 8 lymph node #2 Permanent SURG PATH SURG PATH REQUEST Li Coppola MD 05/28/2023 0834 3 : Level 8 lymph node #3 Permanent SURG PATH SURG PATH REQUEST Li Coppola MD 05/28/2023 0834 4 : Level 7 lymph node #1 Permanent SURG PATH SURG PATH REQUEST Li Coppola MD 05/28/2023 0853 5 : Level 7 lymph node #2 Permanent SURG PATH SURG PATH REQUEST Li Coppola MD 05/28/2023 0853 6 : Level 7 lymph node #3 Permanent SURG PATH SURG PATH REQUEST Li Coppola MD 05/28/2023 0853 7 : Level 7 lymph node #4 Permanent SURG PATH SURG PATH REQUEST Li Coppola MD 05/28/2023 0853 8 : Level 7 lymph node #5 Permanent SURG PATH SURG PATH REQUEST Li Coppola MD 05/28/2023 0853 9 : Level 11R lymph node #1 Permanent SURG PATH SURG PATH REQUEST Li Coppola MD 05/28/2023 0915 10 : Level 10R lymph node #1 Permanent SURG PATH SURG PATH REQUEST Li Coppola MD 05/28/2023 0935 11 : Level 10R lymph node #2 Permanent SURG PATH SURG PATH REQUEST Li Coppola MD 05/28/2023 0935 12 : Level 10R lymph node #3 Permanent SURG PATH SURG PATH REQUEST Li Coppola MD 05/28/2023 0935 13 : Level 10R lymph node #4 Permanent SURG PATH SURG PATH REQUEST Li Coppola MD 05/28/2023 0940 14 : Level 10R lymph node #5 Permanent SURG PATH SURG PATH REQUEST Li Coppola MD 05/28/2023 0946 15 : Level 4 lymph node #1 Permanent SURG PATH SURG PATH REQUEST Li Coppola MD 05/28/2023 1008 16 : Level 4 lymph node #2 Permanent SURG PATH SURG PATH REQUEST Li Coppola MD 05/28/2023 1008 17 : Level 4 lymph node #3 Permanent SURG PATH SURG PATH REQUEST Li Coppola MD 05/28/2023 1008 18 : Level 11R lymph node #2 Permanent SURG PATH SURG PATH REQUEST Li Coppola MD 05/28/2023 1013 19 : Right upper lobe, stitch = bronchus Permanent SURG PATH SURG PATH REQUEST Li Coppola MD 05/28/2023 1024 Drains: 28 Chilean Chest Tube. Complications: None. Disposition: The patient tolerated the operation well. He was extubated and transported the postanesthesia care unit in stable condition. Indication for the procedure: Mr. Penny is a 78 year old male with right upper lobe lung cancer. Initially, he was thought to have metastatic disease, but his adrenal biopsy was negative and his mediastinal staging also revealed no evidence of metastatic disease in the right hilum or mediastinum. His pulmonary and cardiac function testing that shows lung function adequate for lung resection and negative stress test. He was offered a robotic right upper lobectomy and mediastinal lymph node dissection for which he consented. Description of the operation: The patient was transferred to the operating room at the [facility]. Intravenous lines and an arterial line were placed the anesthesia team. The patient was intubated with a single-lumen endotracheal tube by anesthesia. General anesthesia was induced. The patient received IV Clindamycin prior to the incision for antimicrobial prophylaxis. Compression boots were placed in the lower extremities with DVT prophylaxis. After a time out, a flexible bronchoscopy was performed. The flexible bronchoscope was advanced through the endotracheal tube advanced to the marietta. The marietta appeared to be sharp. The right mainstem bronchus was within normal limits. The right upper lobe bronchial orifice was normal. The bronchus intermedius was normal. The right middle lobe and right lower lobe bronchial orifices were normal. Left mainstem bronchus was entered and was normal. The left upper lobe and left lower lobe bronchial orifices were normal. The patient was then intubated with a double-lumen endotracheal tube and positioned in the left lateral decubitus position with the right chest facing upward. The right chest was prepped and draped in the standard sterile surgical fashion. A total of thee 8 mm and one 12mm robotic trocars were placed along the 8th intercostal space approximately 8-10 cm apart. A 12 mm Air Seal Port was placed in the 10 th intercostal space. The 8mm 30 degree robotic camera was placed thorough the posterior axillary line trocar and the right hemithorax was inspected and there was no evidence of pleural effusion or pleural dissemination. The right upper lobe lung carcinoma was located in the posterior apical segment. The Kabongoi Xi robot was then docked to the robotic ports. A Cadiere grasper, a tip up fenestrated lung grasper, and a bipolar forcep were placed through the ports. The anterior 8mm port was upsized to 12 mm port for the robotic stapler. We began the operation by dividing the inferior pulmonary ligament and incising the mediastinal pleura posteriorly along the bronchus intermedius with the bilpolar grapser. We identified the subcarinal lymph nodes, which we removed using the curved biplolar forcep. The lymph node was sent for permanent histology. The posterior mediastinal pleura was incised up to the azygos vein. The mediastinal pleura in the anterior hilum was divided with the bipolar curved forceps. The superior pulmonary vein was dissected with the curve tip bipolar forceps. The superior pulmonary vein was divided with one separate firings of the robotic stapler with white vascular load. The truncus anterior branch of the pulmonary artery was identified and dissected using the bipolar curved forceps. The curved bipolar forceps were safely passed behind the truncus anterior branch which was then divided with a single application of the Robotic stapling device with a vascular load. The right upper lobe was then retracted anteriorly. The right upper lobe bronchus was identified. The bronchus was dissected with a curved bipolar forceps. The robotic stapler was then passed across the right upper lobe bronchus and closed. The right upper lobe bronchus was then divided. There was another smaller posterior ascending pulmonary artery branch, which was dissected circumferentially and divided with the robotic stapler using the vascular load. The minor fissure was then completed using serial applications of the robotic stapler. The major fissure was then divided using additional application of the robotic stapling device. The right upper lobe specimen was then placed in a laparoscopic specimen bag and removed through the 10th intercostal space thoracoscopic incision which was slightly enlarged to 4 cm. A lymph node dissection was performed. Levels 10, 9R, 7, 4R and 11 R were dissected and sent for permament histology. We then performed intercostal nerve blocks by injecting 0.25% Marcaine with epinephrine in the T5-9 interspaces under direct thoracoscopic guidance. There was no evidence of bleeding. A 28 Chilean straight chest tube was placed through the 8th intercostal space thoracoscopic port and secured with a #0 ticron suture. The chest tube was connected to Pleur-evac and placed on -20 cm of suction. The right middle lobe and right lower lobe were reexpanded under direct vision. The remaining thoracoscopic incisions were closed in 3 layers. The muscle layers were reapproximated with a running with a #0 Vicryl suture. The subcutaneous layer was reapproximated with a running 2-0 suture. The skin was reapproximated with running 4-0 Biosyn suture. The sponge and instrument counts were correct x 2. Dr. Coppola was present for all lorenz aspects of the procedure and participated in the entire procedure. There were no intraoperative complications. The patient was extubated and transported to postanesthesia care unit in stable condition. Alessandra Mace DO MPH Cardiothoracic Surgery Fellow Pager ID #[phone] documented in this encounter [facility] 05-30-2023 Nurse Note 05/30/23 1038 Referral Information Arrived From operating room Final Discharge Planning Discharge Disposition Home CM/SW AVS Portion Completed Yes Plan Plan Anticipating discharge to home today Patient/Family In Agreement With Plan yes Plan Comments Daughter will provide transportation home. Transport Request Mode of Transfer Private Vehicle [facility] Discharge Note Patient discussed in medical rounds for discharge to home today pending post chest tube pull CXR. PCRM met with the patient to discuss final discharge plan. Services for Discharge N/A Consults with Final Discharge Recommendations N/A Lines/Tubes/Drains/Wounds/Suppli es Chest tube removed this morning. Patient to keep dry dressing over the chest tube insertion site and cannot shower for 48 hours after the chest tube is pulled. Surgical incisions to be left open to air. Patient has no other lines/tubes/drains/wounds/suppli es upon discharge. Medications No barriers anticipated in obtaining discharge medications. No prior authorizations anticipated. Reconciliation of medications to be completed by the medical team. Durable Medical Equipment N/A Choice Was Patient Choice Provided: N/A Transportation Transportation will be provided by daughter. Education Discharge education provided by the medical team and updated in the After Visit Summary. Follow Up(s) Any follow up requested by the medical team arranged. Appointments in the After Visit Summary. Imaging Rg [address] [place] [address] [facility] [id number] Follow up on 06/17/2023 arrive for your walk in chest x-ray 30 min before your appt Division [facility] [address] [facility] [address] Follow up on 06/17/2023 Post-op appointment with Dr. Coppola at 12:15 pm Was Ambulatory PCRM added to the Care Team? No- Handoff criteria not met The PCRM has updated the patient's nurse regarding the final discharge plan. Risk of Readmission: 5.5 Category Reference: Low: 0% - 5% Medium - Low: 5.1% - 10% Medium - High: 10.1% - 16% High: 16.1% - 100% Readmission Risk Interventions Documented: Yes No other discharge needs have been identified at this time. This plan was developed in collaboration with the patient and caregiver/preferred decision maker. Patient and family are in agreement with final discharge plan. Please refer to AVS and medical record for additional information. Patient instructed to call with questions. PCRM will continue to follow with medical team for any additional discharge planning needs. If any changes to this individualized plan of care during evening and weekend hours and assistance is needed, please page the signal intelligence/electronic warfare PCRM at [phone]. DECLAN Harris, RN, ACM-RN Patient Care Metal Tile Setter [facility] 05-30-2023 History of Present illness Narrative Chest Tube Removal Note Right chest tube output 390 ml/24 hours, no air leak. Right chest tube removed per protocol. Patient tolerated well. Purse string suture tied. Dry dressing applied to site. CXR pending. Amarilys Napoles APRN-GLUE SPRAYER #[id number] Anesthesia Acute Pain Progress Note S: Patient seen and examined at bedside. No acute events overnight. Pain well-controlled with current regimen. Patient denies headache, SOB, nausea, emesis, pruritus, and paresthesias. O: Temp: [97.3 F (36.3 C)-98.8 F (37.1 C)] 97.8 F (36.6 C) Pulse (Heart Rate): [66-93] 83 Resp Rate: [10-36] 18 BP: (99-164)/(56-108) 164/72 Arterial Line (1) BP: (155-190)/(54-82) 155/54 O2 Sat (%): [90 %-100 %] 96 % Weight: [93.2 kg (205 lb 6.4 oz)] 93.2 kg (205 lb 6.4 oz) General: NAD Neuro: Alert and oriented, no focal deficits Assessment and Plan: 78 y.o. male s/p Procedure(s) (LRB): LOBECTOMY LUNG ROBOTIC (Right) BRONCHOSCOPY FLEXIBLE DIAGNOSTIC (Right) LYMPHADENECTOMY MEDIASTINAL & REGIONAL THORACOSCOPIC ADD-ON PX (N/A) on 05/28/23. Patient received an intrathecal morphine dose for post-op pain control. Doing well with minimal adverse effects. APS will sign off at this time. Please call [phone] or page [phone] with any questions or concerns. Gerald Valentine MD Anesthesiology PGY1 Inpatient Progress Note: Tabatha Penny Date: 05/29/2023 12:17 PM Chief Complaint: Squamous cell carcinoma of right lung Primary Surgeon: Li Coppola MD [facility]: Tabatha Penny is a 78 y.o. male former smoker with history of AAA, KS (s/p stent placement x 4 on plavix), AV block s/p pacemaker placement, TIA, VANDANA who was initially referred by Dr. Tobias for surgical evaluation of right upper lobe squamous cell carcinoma. To review, he underwent a biopsy of the right upper lobe in [place] which demonstrated NSCLC favoring squamous cell carcinoma. PET scan on 03/18/23 demonstrated SUV 13.3 in the right upper lobe and 2.9 in the left adrenal gland. He underwent adrenal biopsy on 04/04/23, which was benign. He had an EBUS with FNA on 04/28/[address] Coppola; level 7 was negative (not adequate), 11R was negative and adequate, and 4R was negative (not adequate). He completed PFTs 05/06/2023 and previously had a stress test in December 2022 which was negative. He was taken to the operating room on 05/28/2023 for a flexible bronchoscopy, right robotic, right upper lobe lobectomy, and lymph node dissection. Subjective: no acute events overnight. Denies pain, SOB or nausea. OOB to chair. Objective: Vital Signs: Blood pressure 164/72, pulse 83, temperature 97.8 F (36.6 C), temperature source Oral, resp. rate 18, height 1.753 m (5' 9 ), weight 93.2 kg (205 lb 6.4 oz), SpO2 96 %. On room air. Chest tube output: 210/160/470 ml; to water seal +1 air leak UOP: 1550 ml 24 hour I/O: +1280 Intake/Output Summary (Last 24 hours) at 05/29/2023 1217 Last data filed at 05/29/2023 1059 Gross per 24 hour Intake 2222 ml Output 2450 ml Net -228 ml Physical Exam: Alert and oriented x 3 with no acute distress. Breathing non-labored, conversational without dyspnea. Chest tube is to water seal with +1 air leak. Surgical incisions well approximated, without erythema, edema, or exudate. Abdomen soft, non-tender, non-distended. No pretibial or pedal edema noted. Laboratory Data: Pathology: from 05/28/2023; pending Cytology: N/A Micro: N/A Radiology Studies: Chest xray 05/29/2023: Impression: no pneumothorax appreciated currently. Consults: Respiratory Therapy Assessment/Plan: Problem Leukocytosis WBC 17.1 from 10.4, afebrile. Consistent with post operative phase. Monitor daily CBC. Cad (Coronary Artery Disease) H/X of 4 KS's s/p 5 stent placements. Continue aspirin. Hold home clopidogrel post operatively. Av Block S/p pacemaker. Essential Hypertension, Benign Resume home amlodipine. Continue to hold losartan, resume as tolerated. Hyperlipidemia Continue home atorvastatin. Vandana (Obstructive Sleep Apnea) Continue home CPAP. Gerd (Gastroesophageal Reflux Disease) Continue home pantoprazole Health Education/Counseling Plan of care discussed with patient. Med/Surg level of care. Earliest expected discharge date is 05/30/23, pending post operative recovery. At Moderate Risk for Venous Thromboembolism (Vte) Prophylactic enoxaparin, SCDs while in bed and encourage ambulation. Acute Post-Operative Pain Pain controlled with scheduled acetaminophen, PRN tramadol and PRN ketorlac. Continue to monitor and adjust as necessary. Bmi 30.0-30.9,Adult Body mass index is 30.33 kg/m . Squamous Cell Carcinoma of Right Lung POD #1 robotic assisted, right upper lobe lobectomy. Final pathology pending. Place chest tube to water seal. Advanced diet. Stopped IV fluids. Removed galloway. Continue to encourage aggressive pulmonary toilet with ambulation. Monitor daily labs and CXR. The patient was seen, images reviewed, and plan of care discussed with JOHN Richards #[id number] Introduced self and role of the manager actuarial to patient/family. Provided emotional and spiritual support and the patient/family responded by sharing their experience and discussed the following: Pt sitting in recliner, no family present. Pt reports that he gets his support from his of 40 years, his daughter and their neighbors and his elizabeth. He reports that he communes w/ Gd wherever he is but especially in nature. He reports his concerns as his has Parkinsons, her balance is poor and usually he is her education counselor. He reports that his daughter and neighbors and keeping an eye on her but that he is eager to get back to her. He reports that it is also important to him to get home to his dog who is giving his family a hard time as he is not there. Offered active listening, comfort, support and prayer. Patient/family encouraged to request a manager actuarial as needed. Chaplains are available in-house 24 hours a day and 7 days a week. For urgent matters in the [place], please page [phone]. If the request is not urgent, please enter a consult. Consults are responded to within 24 hours. Stewarding Supervisor Kaitlin Bray, DDiv,MAHL, [facility] Senior Stewarding Supervisor, [facility] 12, 18, 17/02 On-Call Pager [place] ([phone]) 05/29/23 1104 Clinical Encounter Type Visited With Patient Visit Type Introduction Pastoral Time Spent 45 min Latter Day Encounters Latter Day Needs Prayer Spiritual Assessment Spiritual Observation Spirituality helpful Emotional Observation Coping well Hope Observation Specific hope focus Support Observation By Family;By Friend Interventions Provided Active listening;Prayer;Supportive presence Facilitated Verbalization of feelings Explored Expectations;Family issues Painting Manager Education Painting Manager Service Available Yes Educated Patient Outcomes Patient Outcomes Articulated purpose/meaning Plan of Care Continue Visiting PRN Values/Beliefs (F) Elizabeth Importance Patients reports that he has a relationship with Robert. Spiritual Care Comment Patient made aware of available pastoral care. Psychosocial Assessment Per chart review, patient is a 78 y.o., male, who was admitted for a flexible bronchoscopy, right robotic, right upper lobe lobectomy, and lymph node dissection per Bailey Pearce, BRANCH ASSOCIATE TELLER-GLUE SPRAYER note on 05/29/23. SW met with patient to introduce self, explain social director role during inpatient stay, and answer questions. Patient was alert and oriented x3 and agreeable to SW visit. Contact Information News Agent Name: Amarilys Gomez News Agent's Social Work Contact Name: Joana Armstrong Crime Lab Technician's Advance Directives Type of Advance Directives Currently on File: healthcare power of deputy prosecuting attorney, living will Patient Requesting to Complete/Update the Following Advance Directive: Not at this time Advance Directive Discussion: Per chart review, patient already has completed Living Will and Healthcare Power of Arts Administrator (HCPOA) on file. SW reviewed the document(s) with patient and they confirmed documents are current and reflective of their wishes. The following individual(s) are named as decision makers in the patient's HCPOA: Primary Agent: spouse, Francia Penny, (ph: [phone]) First Alternate Agent: daughter, Rosie Penny, (ph: [phone]) Legal NOK: Spouse, Francia Penny, (ph: [phone]) Emotional/Psychological Affect: no deficits noted Mood: congruent to situation Verbal Skills: no deficits noted Current Interpersonal Conduct/Behavior: appropriate to situation, cooperative Mental Health Conditions/Symptoms: none Thought Process Alterations: no deficits noted Previous Mental Health Treatment: none Emotional/Psychological Comments: Patient seems to be coping well. Patient discussed the strong support he has from his family and his neighbors. Patient also talked about how hunting was a form of relaxtion and coping for him. Distress Screen: In general, would you say your health is:: (Patient declined to participate) Patient Coping/Stress Concerns Patient Coping/Stress Concerns: No Patient Personal Strengths: able to adapt, expressive of emotions, expressive of needs, elizabeth/spirituality, future/goal oriented, humor, motivated, positive attitude, resilient, strong support system Sources Of Support: adult child(jennifer), friend(s) Reaction To Health Status: accepting Understanding Of Condition And Treatment: adequate understanding of medical condition, adequate understanding of treatment Values/Beliefs (F) Elizabeth Importance: Patients reports that he has a relationship with Robert. Spiritual Care Comment: Patient made aware of available pastoral care. Employment/Financial Employed?: Retired Employment/Financial Concerns: no Source Of Income: pension/[facility], social security Financial Concerns: none Food Insecurity Within the past 12 months, you worried that your food would run out before you got the money to buy more.: Never true Within the past 12 months, the food you bought just didn't last and you didn't have money to get more.: Never true Housing Stability In the last 12 months, was there a time when you were not able to pay the mortgage or rent on time?: No In the last 12 months, how many places have you lived?: 1 In the last 12 months, was there a time when you did not have a steady place to sleep or slept in a senior care (including now)?: No Utilities In the past 12 months has the electric, gas, oil, or water company threatened to shut off services in your home?: No Transportation Needs In the past 12 months, has lack of transportation kept you from medical appointments or from getting medications?: No In the past 12 months, has lack of transportation kept you from meetings, work, or from getting things needed for daily living?: No Alcohol Use Q1: How often do you have a drink containing alcohol?: Never Q2: How many drinks containing alcohol do you have on a typical day when you are drinking?: Patient does not drink Q3: How often do you have six or more drinks on one occasion?: Never Substance Use How many times in the past year have you used prescription drugs for non-medical reasons? : Never How many times in the past year have you used illegal drugs?: Never Community Resources: None. Anticipated Discharge Plan Anticipated Discharge Plan: Home Discharge Considerations Patient lives in a mobile home with a ramp to enter. Patient lives with his and two dogs. Patient's daughter is his ride home at discharge. Medical Team Considerations: None. SW Interventions/Recommendations: Service SW name and contact information placed on white board in patient's room to contact as needed. SW will continue to remain available to provide assistance and support as needed during inpatient stay. Dee Brewsterlolis Social Work Student For Evening (4:30pm-8am) and Weekend SW needs please call [phone] or page [phone] Inpatient Progress Note: Tabatha Penny Date: 05/29/2023 9:33 AM Chief Complaint: Squamous cell carcinoma of right lung Primary Surgeon: Li Coppola MD [facility]: Tabatha Penny is a 78 y.o. male former smoker with history of AAA, [place] (s/p stent placement x 4 on plavix), AV block s/p pacemaker placement, TIA, VANDANA who was initially referred by Dr. Tobias for surgical evaluation of right upper lobe squamous cell carcinoma. To review, he underwent a biopsy of the right upper lobe in [place] which demonstrated NSCLC favoring squamous cell carcinoma. PET scan on 03/18/23 demonstrated SUV 13.3 in the right upper lobe and 2.9 in the left adrenal gland. He underwent adrenal biopsy on 04/04/23, which was benign. He had an EBUS with FNA on 04/28/[address] Coppola; level 7 was negative (not adequate), 11R was negative and adequate, and 4R was negative (not adequate). He completed PFTs 05/06/2023 and previously had a stress test in December 2022 which was negative. He was taken to the operating room on 05/28/2023 for a flexible bronchoscopy, right robotic, right upper lobe lobectomy, and lymph node dissection. Subjective: no acute events overnight. Denies pain, SOB or nausea. OOB to chair. Objective: Vital Signs: Blood pressure 163/70, pulse 66, temperature 97.7 F (36.5 C), temperature source Oral, resp. rate 18, height 1.753 m (5' 9 ), weight 93.2 kg (205 lb 6.4 oz), SpO2 95 %. On room air. Chest tube output: 210/160/470 ml; to water seal +1 air leak UOP: 1550 ml 24 hour I/O: +1280 Intake/Output Summary (Last 24 hours) at 05/29/2023 0933 Last data filed at 05/29/2023 0856 Gross per 24 hour Intake 2222 ml Output 2370 ml Net -148 ml Physical Exam: Alert and oriented x 3 with no acute distress. Breathing non-labored, conversational without dyspnea. Chest tube is to water seal with +1 air leak. Surgical incisions well approximated, without erythema, edema, or exudate. Abdomen soft, non-tender, non-distended. No pretibial or pedal edema noted. Laboratory Data: Pathology: from 05/28/2023; pending Cytology: N/A Micro: N/A Radiology Studies: Chest xray 05/29/2023: Impression: no pneumothorax appreciated currently. Consults: Respiratory Therapy Assessment/Plan: Problem Squamous Cell Carcinoma of Right Lung POD #1 robotic assisted, right upper lobe lobectomy. Final pathology pending. Place chest tube to water seal. Advanced diet. Stopped IV fluids. Removed galloway. Continue to encourage aggressive pulmonary toilet with ambulation. Monitor daily labs and CXR. Leukocytosis WBC 17.1 from 10.4, afebrile. Consistent with post operative phase. Monitor daily CBC. Acute Post-Operative Pain Pain controlled with scheduled acetaminophen, PRN tramadol and PRN ketorlac. Continue to monitor and adjust as necessary. Av Block S/p Pacemaker. Essential Hypertension, Benign Resume home amlodipine. Continue to hold losartan, resume as tolerated. Hyperlipidemia Continue home atorvastatin. Vandana (Obstructive Sleep Apnea) Continue home CPAP. Gerd (Gastroesophageal Reflux Disease) Continue home pantoprazole Health Education/Counseling Plan of care discussed with patient. Med/Surg level of care. Earliest expected discharge date is 05/30/23, pending post operative recovery. At Moderate Risk for Venous Thromboembolism (Vte) Prophylactic enoxaparin, SCDs while in bed and encourage ambulation. Bmi 30.0-30.9,Adult Body mass index is 30.33 kg/m . The patient was seen, images reviewed, and plan of care discussed with JOHN Stewart Associated attestation - Joy Pepe APRN-CNP - 05/29/2023 12:00 PM EDT I have independently seen and examined this patient with the SHARA Fellow as well as attending physician. Please see my note which is cosigned by attending Li Coppola MD for final recommendations. JOHN Warren documented in this encounter [facility] 05-29-2023 Nurse Note 05/29/23 1041 Referral Information Arrived From operating room Readmission Information Was patient readmitted within 30 Days? Yes Information Source Information Source patient Information Source Name Tabatha (patient) Information Source Number See demographics Outpatient Providers Outpatient Providers Updated In IHIS Yes Contact Information News Agent/SW Added to Care Team Yes This Assembly Room Supervisor is Primary News Agent/SW Yes News Agent Name Amarilys Gomez News Agent's Social Work Contact Name Joana Armstrong Crime Lab Technician's Living Environment Lives With spouse Living Arrangements mobile home (Wheelchair ramp to enter. Spouse uses a walker to go up the ramp.) Provides Primary Care For spouse Caregiving Concerns Neighbors and daughter will provide care for spouse while patient is healing from this surgery Primary Care Provided By self Support System Immediate family;Neighbors Able to Return to Prior Arrangements yes Functional Status Patient's Functional Status Prior To This Admission? Independent Are There Status Changes This Admission? Yes Changes Observed Since Admission? Physical Concerns With Patient Being Able To Care For Themselves At Discharge? No Who Is Patient's Primary Contact For Discharge Planning, Education And Care For Discharge? Daughter Can Support Person Meet The Care Needs Of The Patient? Yes Employment/Financial Employed? Retired Employment/Financial Concerns no Source Of Income pension/[place] [facility];social security Financial Concerns none Insurance Medical Insurance Verified Yes Prescription Coverage Yes Pharmacy updated in [facility] Yes Initial Discharge Planning Home Care Services (FIRMWARE DEVELOPER) No Home Therapies (FIRMWARE DEVELOPER) None DME (FIRMWARE DEVELOPER) Straight cane Medical Supplies (FIRMWARE DEVELOPER) Blood Pressure Monitor Patient Goal for Discharge Get better Anticipated discharge disposition Home Anticipated Changes Related to Illness none Current Discharge Risk high risk diagnoses (i.e., CHF, Stroke, DM, chronic pain, abdominal pain, nausea and vomiting);>65 years of age Transportation Available car;family or friend will provide Discharge Planning Comments Daughter will provide transportation home Assessment/Concerns to be Addressed Concerns To Be Addressed no discharge needs identified;denies needs/concerns at this time PCRM Initial Assessment MARCIE and THOMAS Armstrong met with [facility] to complete the initial assessment. Explained role and function of PCRM in multidisciplinary team. Contact number provided for questions. Demographic information reviewed with patient/family and confirmed as correct. Reason for Admission: 78 y.o. male former smoker with history of AAA, [place] (s/p stent placement x 4 on plavix), AV block s/p pacemaker placement, TIA, VANDANA who was initially referred by Dr. Tobias for surgical evaluation of right upper lobe squamous cell carcinoma. To review, he underwent a biopsy of the right upper lobe in [place] which demonstrated NSCLC favoring squamous cell carcinoma. PET scan on 03/18/23 demonstrated SUV 13.3 in the right upper lobe and 2.9 in the left adrenal gland. He underwent adrenal biopsy on 04/04/23, which was benign. He had an EBUS with FNA on 04/28/[address] Coppola; level 7 was negative (not adequate), 11R was negative and adequate, and 4R was negative (not adequate). He completed PFTs 05/06/2023 and previously had a stress test in December 2022 which was negative. He was taken to the operating room on 05/28/2023 for a flexible bronchoscopy, right robotic, right upper lobe lobectomy, and lymph node dissection. Estimated length of stay: 2-3 days Advanced directives Patient has Advanced Directives on file Lines/Drains/Tubes Chest tube will be removed prior to discharge Initial PCRM Discharge Planning Home with assistance from family PRN. Final plan will be determined closer to discharge, pending therapy and medical team recommendations. Patient/family verbalized understanding and agreement with the plan of care. Patient/family have no questions at this time. PCRM will continue to follow patient with multidisciplinary team for ongoing assessment of needs and for discharge planning. Medical team updated. Patient Interview Type of Readmission : Planned DECLAN Harris, RN, ACM-RN Patient Care Metal Tile Setter [facility] 05-29-2023 Consult note Formatting of th is note is different from the original. Vascular Access Procedure Note for Ultrasound Guided PIV Placement Left hand swollen and painful from fingers to left forearm from IV placed in surgery. IV no longer in place. Left arm elevated on two pillows and patient given ice and heat bags to help with discomfort. Bedside RN aware. Charting the removal of the LDA this RN stated the right hand was swollen up to the forearm and painful. The charting was supposed to say the left hand is swollen up to the left forearm. The right hand is WNL. Assessment [facility] seen and evaluated for peripheral IV insertion using ultrasound guidance. ID band present, allergies verified and patient/nurse questioned of limb precautions. Skin integrity assessed, no evidence of condition that would prevent safe insertion of a peripheral IV with ultrasound. Allergies: Allergies Allergen Reactions Penicillins Anaphylaxis Insertion Ultrasound guided PIV: Peripheral IV placed per aseptic technique under ultrasound guidance on 1 attempt(s). []Obtained labs. Peripheral IV Line - Single Lumen 05/29/23 0836 pink forearm, anterior, right 20 gauge;1 3/4 in length (Active) 05/29/23 0836 Present On Admission : no Guiding Device: ultrasound Lumen 1: pink Additional Lumens: Lumen 2: Location: forearm, anterior, right Device/Lot Number: [id number] catheter system Gauge/Length: 20 gauge;1 3/4 in length Unsuccessful Insertion Attempts: 0 Unsuccessful Attempt Location/Site: Pain Prevention/Patient Tolerance: distraction;tolerated well Removal: Additional Comments: Lumen 3: Peripheral IV Present on Admission: (Retired/Read Only) Location: (Retired/Read Only) Device: (Retired/Read Only) Gauge/Length: Company Laundry Worker/Lot Number: Unsuccessful Insertion Attempts: (Retired/Read Only) Unsuccessful Attempt Locations: Pain Prevention: Patient Tolerance: Insertion: Removal Indication: Peripheral IV Location - Orientation: Peripheral IV Location: Insertion Site WDL WDL 05/29/23835 Site Preparation/Maintenance site cleansed: chlorhexidine solution;dressing: transparent semipermeable 05/29/23835 Securement catheter stabilization device, secured with 05/29/23835 Date Dressing Changed 05/29/23 05/29/23835 Lumen 1 Patency/Maintenance flushed without difficulty;blood return, able to obtain 05/29/23835 Date Lumen 1 Cap/Connector Changed/Applied 05/29/23 05/29/23835 Phlebitis 0-->no symptoms 05/29/23835 Infiltration 0-->no symptoms 05/29/23835 Indication fluid therapy;medication therapy 05/29/23835 Positive blood return noted, flushes easily, no edema, or leakage noted. Stabilization device used to secure IV, occlusive dressing applied. Denies pain at site. Patient tolerated procedure well. Site dated and initialed. Bedside RN notified of procedure completion IV wrapped in coban to keep secure. Education Patient/Family informed to notify nurse of any complications including pain, redness, swelling, or leakage post insertion. Pt safety room check completed prior to exiting room. [x]Call light. [x]Bed locked. [x]Bed low. [x]Tray table within reach. Thank you for allowing our team to participate in the care of this patient. Vascular Access Team [id number] [facility] 05-29-2023 Consult note Formatting of th is note is different from the original. Vascular Access Procedure Note for Ultrasound Guided PIV Placement Left hand swollen and painful from fingers to left forearm from IV placed in surgery. IV no longer in place. Left arm elevated on two pillows and patient given ice and heat bags to help with discomfort. Bedside RN aware. Charting the removal of the LDA this RN stated the right hand was swollen up to the forearm and painful. The charting was supposed to say the left hand is swollen up to the left forearm. The right hand is WNL. Assessment Tabatha Penny seen and evaluated for peripheral IV insertion using ultrasound guidance. ID band present, allergies verified and patient/nurse questioned of limb precautions. Skin integrity assessed, no evidence of condition that would prevent safe insertion of a peripheral IV with ultrasound. Allergies: Allergies Allergen Reactions Penicillins Anaphylaxis Insertion Ultrasound guided PIV: Peripheral IV placed per aseptic technique under ultrasound guidance on 1 attempt(s). []Obtained labs. Peripheral IV Line - Single Lumen 05/29/23835 pink forearm, anterior, right 20 gauge;1 3/4 in length (Active) 05/29/23835 Present On Admission : no Guiding Device: ultrasound Lumen 1: pink Additional Lumens: Lumen 2: Location: forearm, anterior, right Device/Lot Number: [id number] catheter system Gauge/Length: 20 gauge;1 3/4 in length Unsuccessful Insertion Attempts: 0 Unsuccessful Attempt Location/Site: Pain Prevention/Patient Tolerance: distraction;tolerated well Removal: Additional Comments: Lumen 3: Peripheral IV Present on Admission: (Retired/Read Only) Location: (Retired/Read Only) Device: (Retired/Read Only) Gauge/Length: Company Laundry Worker/Lot Number: Unsuccessful Insertion Attempts: (Retired/Read Only) Unsuccessful Attempt Locations: Pain Prevention: Patient Tolerance: Insertion: Removal Indication: Peripheral IV Location - Orientation: Peripheral IV Location: Insertion Site WDL WDL 05/29/23835 Site Preparation/Maintenance site cleansed: chlorhexidine solution;dressing: transparent semipermeable 05/29/23835 Securement catheter stabilization device, secured with 05/29/23835 Date Dressing Changed 05/29/23 05/29/23835 Lumen 1 Patency/Maintenance flushed without difficulty;blood return, able to obtain 05/29/23835 Date Lumen 1 Cap/Connector Changed/Applied 05/29/23 05/29/23835 Phlebitis 0-->no symptoms 05/29/23835 Infiltration 0-->no symptoms 05/29/23835 Indication fluid therapy;medication therapy 05/29/23835 Positive blood return noted, flushes easily, no edema, or leakage noted. Stabilization device used to secure IV, occlusive dressing applied. Denies pain at site. Patient tolerated procedure well. Site dated and initialed. Bedside RN notified of procedure completion IV wrapped in coban to keep secure. Education Patient/Family informed to notify nurse of any complications including pain, redness, swelling, or leakage post insertion. Pt safety room check completed prior to exiting room. [x]Call light. [x]Bed locked. [x]Bed low. [x]Tray table within reach. Thank you for allowing our team to participate in the care of this patient. Vascular Access Team [id number] documented in this encounter [facility] 05-29-2023 Plan of care note No acute change noted from previous assessment at this time unless otherwise indicated on the flow sheet and/or notes. Problem: Patient Care Overview Goal: Plan of Care Review Outcome: Ongoing [facility] 05-28-2023 Nurse Note On admission to [facility], from PACU a dual RN initial assessment of skin condition was performed by Jagruti Couch RN and Irene Sesay RN. Skin Assessment: Skin within defined limits:Yes. Right sided chest tube intact w/ +1 air leak, incisions with dermabond. Galloway in place. 2 PIV intact. Alfredito Score: 23 LDA Added:No Jagruti Couch RN [facility] 05-28-2023 Surgery Postoperative evaluation and management note Thoracic Surgery Operative Report Date: 05/28/23 Preoperative Diagnosis: right upper lobe squamous cell carcinoma Postoperative Diagnosis: right upper lobe squamous cell carcinoma Procedures Performed: Flexible Bronchoscopy Robotic-Assisted Thoracoscopic Right Upper Lobectomy Right Thoracoscopic Mediastinal and regional Lymph Node Dissection Intercostal Nerve Blocks. Surgeon: Li Coppola M.D. Shipping Processor: Alessandra Mace DO (fellow), Meron Stahl PA-C. Anesthesia Type: General Anesthesia. Estimated Blood Loss: 50 mL. Intravenous Fluid: See Anesthesia Record. Specimens: ID Type Source Tests Collected by Time Destination 1 : Level 8 lymph node #1 Permanent SURG PATH SURG PATH REQUEST Li Coppola MD 05/28/2023 0833 2 : Level 8 lymph node #2 Permanent SURG PATH SURG PATH REQUEST Li Coppola MD 05/28/2023 0834 3 : Level 8 lymph node #3 Permanent SURG PATH SURG PATH REQUEST Li Coppola MD 05/28/2023 0834 4 : Level 7 lymph node #1 Permanent SURG PATH SURG PATH REQUEST Li Coppola MD 05/28/2023 0853 5 : Level 7 lymph node #2 Permanent SURG PATH SURG PATH REQUEST Li Coppola MD 05/28/2023 0853 6 : Level 7 lymph node #3 Permanent SURG PATH SURG PATH REQUEST Li Coppola MD 05/28/2023 0853 7 : Level 7 lymph node #4 Permanent SURG PATH SURG PATH REQUEST Li Coppola MD 05/28/2023 0853 8 : Level 7 lymph node #5 Permanent SURG PATH SURG PATH REQUEST Li Coppola MD 05/28/2023 0853 9 : Level 11R lymph node #1 Permanent SURG PATH SURG PATH REQUEST Li Coppola MD 05/28/2023 0915 10 : Level 10R lymph node #1 Permanent SURG PATH SURG PATH REQUEST Li Coppola MD 05/28/2023 0935 11 : Level 10R lymph node #2 Permanent SURG PATH SURG PATH REQUEST Li Coppola MD 05/28/2023 0935 12 : Level 10R lymph node #3 Permanent SURG PATH SURG PATH REQUEST Li Coppola MD 05/28/2023 0935 13 : Level 10R lymph node #4 Permanent SURG PATH SURG PATH REQUEST Li Coppola MD 05/28/2023 0940 14 : Level 10R lymph node #5 Permanent SURG PATH SURG PATH REQUEST Li Coppola MD 05/28/2023 0946 15 : Level 4 lymph node #1 Permanent SURG PATH SURG PATH REQUEST Li Coppola MD 05/28/2023 1008 16 : Level 4 lymph node #2 Permanent SURG PATH SURG PATH REQUEST Li Coppola MD 05/28/2023 1008 17 : Level 4 lymph node #3 Permanent SURG PATH SURG PATH REQUEST Li Coppola MD 05/28/2023 1008 18 : Level 11R lymph node #2 Permanent SURG PATH SURG PATH REQUEST Li Coppola MD 05/28/2023 1013 19 : Right upper lobe, stitch = bronchus Permanent SURG PATH SURG PATH REQUEST Li Coppola MD 05/28/2023 1024 Drains: 28 [place] Chest Tube. Complications: None. Disposition: The patient tolerated the operation well. He was extubated and transported the postanesthesia care unit in stable condition. Indication for the procedure: Mr. Penny is a 78 year old male with right upper lobe lung cancer. Initially, he was thought to have metastatic disease, but his adrenal biopsy was negative and his mediastinal staging also revealed no evidence of metastatic disease in the right hilum or mediastinum. His pulmonary and cardiac function testing that shows lung function adequate for lung resection and negative stress test. He was offered a robotic right upper lobectomy and mediastinal lymph node dissection for which he consented. Description of the operation: The patient was transferred to the operating room at the [facility]. Intravenous lines and an arterial line were placed the anesthesia team. The patient was intubated with a single-lumen endotracheal tube by anesthesia. General anesthesia was induced. The patient received IV Clindamycin prior to the incision for antimicrobial prophylaxis. Compression boots were placed in the lower extremities with DVT prophylaxis. After a time out, a flexible bronchoscopy was performed. The flexible bronchoscope was advanced through the endotracheal tube advanced to the marietta. The marietta appeared to be sharp. The right mainstem bronchus was within normal limits. The right upper lobe bronchial orifice was normal. The bronchus intermedius was normal. The right middle lobe and right lower lobe bronchial orifices were normal. Left mainstem bronchus was entered and was normal. The left upper lobe and left lower lobe bronchial orifices were normal. The patient was then intubated with a double-lumen endotracheal tube and positioned in the left lateral decubitus position with the right chest facing upward. The right chest was prepped and draped in the standard sterile surgical fashion. A total of thee 8 mm and one 12mm robotic trocars were placed along the 8th intercostal space approximately 8-10 cm apart. A 12 mm Air Seal Port was placed in the 10 th intercostal space. The 8mm 30 degree robotic camera was placed thorough the posterior axillary line trocar and the right hemithorax was inspected and there was no evidence of pleural effusion or pleural dissemination. The right upper lobe lung carcinoma was located in the posterior apical segment. The Kabongoi Xi robot was then docked to the robotic ports. A Cadiere grasper, a tip up fenestrated lung grasper, and a bipolar forcep were placed through the ports. The anterior 8mm port was upsized to 12 mm port for the robotic stapler. We began the operation by dividing the inferior pulmonary ligament and incising the mediastinal pleura posteriorly along the bronchus intermedius with the bilpolar grapser. We identified the subcarinal lymph nodes, which we removed using the curved biplolar forcep. The lymph node was sent for permanent histology. The posterior mediastinal pleura was incised up to the azygos vein. The mediastinal pleura in the anterior hilum was divided with the bipolar curved forceps. The superior pulmonary vein was dissected with the curve tip bipolar forceps. The superior pulmonary vein was divided with one separate firings of the robotic stapler with white vascular load. The truncus anterior branch of the pulmonary artery was identified and dissected using the bipolar curved forceps. The curved bipolar forceps were safely passed behind the truncus anterior branch which was then divided with a single application of the Robotic stapling device with a vascular load. The right upper lobe was then retracted anteriorly. The right upper lobe bronchus was identified. The bronchus was dissected with a curved bipolar forceps. The robotic stapler was then passed across the right upper lobe bronchus and closed. The right upper lobe bronchus was then divided. There was another smaller posterior ascending pulmonary artery branch, which was dissected circumferentially and divided with the robotic stapler using the vascular load. The minor fissure was then completed using serial applications of the robotic stapler. The major fissure was then divided using additional application of the robotic stapling device. The right upper lobe specimen was then placed in a laparoscopic specimen bag and removed through the 10th intercostal space thoracoscopic incision which was slightly enlarged to 4 cm. A lymph node dissection was performed. Levels 10, 9R, 7, 4R and 11 R were dissected and sent for permament histology. We then performed intercostal nerve blocks by injecting 0.25% Marcaine with epinephrine in the T5-9 interspaces under direct thoracoscopic guidance. There was no evidence of bleeding. A 28 Chilean straight chest tube was placed through the 8th intercostal space thoracoscopic port and secured with a #0 ticron suture. The chest tube was connected to Pleur-evac and placed on -20 cm of suction. The right middle lobe and right lower lobe were reexpanded under direct vision. The remaining thoracoscopic incisions were closed in 3 layers. The muscle layers were reapproximated with a running with a #0 Vicryl suture. The subcutaneous layer was reapproximated with a running 2-0 suture. The skin was reapproximated with running 4-0 Biosyn suture. The sponge and instrument counts were correct x 2. Dr. Coppola was present for all lorenz aspects of the procedure and participated in the entire procedure. There were no intraoperative complications. The patient was extubated and transported to postanesthesia care unit in stable condition. Alessandra Mace DO MPH Cardiothoracic Surgery Fellow Pager ID #[phone] [facility] Work Phone: 05-28-2023 Hospital Discharge instructions Amarilys Valentine RN - 05/28/2023 8:54 AM EDT Images from the original note were not included. Your News Agent (PCRM) has arranged your appointments for follow up based on your preference of where you would like to continue your care. If you are unable to attend appointments that have been arranged for you, it is your responsibility to call to reschedule at least 48 hours prior to the appointment date. Your After Visit Summary (AVS) has provided you with instructions for your discharge. It is your responsibility to ask questions if you have any. Please contact your medical care team at the numbers listed if you should have any additional questions. IMPORTANT: Automated Post Discharge Call Patient Information As part of your care, we will call you at the primary number we have on file, the day after you are discharged at 11 a.m. to check on you. Please expect a two-minute automated telephone call from the hospital. This call will come from [phone]. If you are unable to answer or do not receive the automated call, please call [phone] to complete this important evaluation. By answering the phone evaluation, a Kassie nurse will be notified if you have any questions or concerns and call you back. If you have an immediate medical need call your doctor s office, or if you have a medical emergency call 911. JOHN Escobar - 05/28/2023 8:55 AM EDT RESTART YOUR HOME CLOPIDOGREL (PLAVIX) ON Friday05/31/23 PAIN MEDICATION: -A prescription for pain medicine will be sent home with you. Do not drive while taking prescription pain medicine. Eat when taking pain medicines to avoid nausea. Watch for constipation. Eat plenty of fruits, vegetables, juices, and drink 6 to 8 glasses of water each day. -Take a stool softener twice a day as long as you remain on pain medicine. If you do not have a bowel movement within 5 days of your surgery, please take milk of magnesia. If you do not have a bowel movement within 12 hours of milk of magnesia, call the office. -you can take acetaminophen (Tylenol) and ibuprofen (Advil, Motrin) in addition to your prescription pain medication if you have no other contraindications to those medications. Use these medications to help you need less narcotic pain medication. -you can start to wean yourself off the narcotic pain medication as soon as you feel comfortable by taking a smaller dose and/or increasing the number of hours in between doses. Amarilys Valentine RN - 05/28/2023 8:55 AM EDT ACTIVITY: - No driving until you are seen in the office for your post operative visit - Do not lift anything heavier than 5 lbs for 6 weeks - No strenuous activity for 6 weeks. - Numbness and tingling in the chest on the surgical side is normal. This may take 6 to 12 months to improve. Amarilys Valentine RN - 05/28/2023 8:55 AM EDT Resume home diet Amarilys Valentine RN - 05/28/2023 8:55 AM EDT CALL THE DOCTOR IF YOU EXPERIENCE: UNRELIEVED PAIN: - Increased or unrelieved pain SIGNS OF WOUND INFECTION: - Increase in pain in or around wound. - Change in the amount of drainage. - Change in the color of drainage. - Change in the odor of drainage. - Warmth in the tissues around the wound. - Red streaks on the skin near the wound. - Fever (temperature greater than 101.5 degrees F) - Incision separates or opens up CHEST PAIN OR RESPIRATORY CHANGES: - Chest pain or shortness of breath - Shortness of breath that gets worse - Cough that gets worse - Coughing up blood FEVER/CHILLS/FLU-LIKE SYMPTOMS: Temperature greater than 101.5 degrees F and/or chills. - Signs of cold or flu. NAUSEA OR VOMITING -Inability to take fluids for greater than 24 hours. SIGNS OF DEEP VEIN THROMBOSIS (DVT): DVT = Deep Vein Thrombus, or Blood Clot -Any Tender, Swollen, or Reddened Areas From Your Groin To Your Heels -Numbness or Tingling In Groin or Calf -The Skin on Your Leg Looks Pale or Blue Or It Feels Cold To Touch -Numbness or Tingling In Groin or Calf -Any Shortness of Breath -Chest Pain -Fever or Chills Thoracic Surgery Contact Information: Clinical questions, 24 hours a day, 7 days a week: [phone] Outpatient News Agent: Philippe Alonso [phone] Outpatient Crime Lab Technician: Ann Marie George [phone] Inpatient News Agent: Amarilys Valentine [phone] Inpatient Crime Lab Technician: Joana Gill [phone] Amarilys Valentine RN - 05/28/2023 8:56 AM EDT YOU MAY SHOWER (48 hours post chest tube removal) NO TUB BATHS: -Do not take tub bath, go swimming or use a hot tub until instructed by your doctor. INCISION CARE: -Please clean it daily with mild soap and water. -Keep it dry and open to air -Notify us of any increasing redness, pus-like discharge or seperation of the incision. -Do not let the shower stream hit the incision directly. - Numbness and tingling in the chest on the surgical side is normal. This may take 6 to 12 months to improve. CHEST TUBE SITE CARE: - Keep chest tube site dressing in place for 48 hours after chest tube has been removed. After 48 hours you can remove dressing, take a shower, and leave site open to air if it is not draining. We will provide dressing supplies upon discharge in case you need them. - It is normal for the chest tube site to drain clear or pale yellow fluid. If draining, cover with band-aid or sterile gauze dressing. If the drainage develops an odor, becomes pus-like, the area becomes red, or you develop a fever, please contact us. -Clean with soap and water daily, pat dry. Do not apply any ointments or creams to tube insertion site unless instructed by your doctor. The following attachments cannot be sent through Care Everywhere.Incentive Spirometer ([facility]) ([place])Pain Post-Surgery: Acute ([place])documented in this encounter [facility] 05-28-2023 History of Present illness Narrative This pt is scheduled for a right sided lobectomy today. He has a Medtronic dual chamber pacemaker implanted on the left side of the chest. He is not pacemaker dependent with an underlying rhythm of sinus rhythm with Mobitz I AV block. The device was reprogrammed to DOO 80 for surgery. The pt will need seen in PACU to restore original device settings. documented in this encounter [facility] 05-28-2023 Nurse Surgical operation note Patient denies hx of chemo and radiation. Patient denies metal or foreign objects in body EXCEPT L chest PPM, Patient has hx of TIA, denies seizures. [facility] 05-28-2023 Nurse Note Patient denies hx of chemo and radiation. Patient denies metal or foreign objects in body EXCEPT L chest PPM, Patient has hx of TIA, denies seizures. documented in this encounter [facility] 05-06-2023 History of Present illness Narrative Mr. Penny presents for a followup visit regarding his right upper lobe lung cancer. Initially, he was thought to have metastatic disease, but all his biopsies are coming back negative results of his mediastinal staging also revealed no evidence of metastatic disease in the right hilum or mediastinum. We reviewed his preoperative His pulmonary and cardiac function testing that shows lung function adequate for lung resection and negative stress test. The patient does have cardiovascular risk factors includimng past history of stroke and KS and has an increased risk for cardiopulmonary or cerebrovascular complications after surgery, but overall, this would be acceptable, and he wants to proceed with the planned elective surgery and signed informed consent in the office today. (DOC:[id number]) Mr. Penny presents for a follow up for his right upper lobe lung cancer, initially thought to have metastatic disease, but all his biopsies are coming back negative. We have reviewed his results of his mediastinal staging also revealed no evidence of metastatic disease in the right hilum or mediastinum. He appears to be a good surgical candidate. His pulmonary and cardiac function testing that shows lung function adequate for lung resection and negative stress test. The patient does have cardiovascular risk factors including previous stroke and KS and as a result has an increased risk for cardiopulmonary or cerebrovascular complications after surgery, but overall, this would be acceptable, and he wants to proceed with the planned elective surgery and signed informed consent in the office today. (DOC:[id number]) JOCScreening Do you experience shortness of breath walking two flights of stairs? no Do you have trouble breathing when you lie flat? no Have you had a heart attack, blood clot, stroke, or cardiac stent in the past 3 months? no Do you have a pacemaker or implantable defibrillator? yes a. If not, has one been recommended? no Are you diabetic? no a. If so, is your blood sugar over 300 three or more days per week? no b. Have you had your A1C checked? no c. If so, is it over 8? no Have you previously had anesthesia? yes a. If so, were you told that there was trouble placing a breathing tube? no Yes to any of the above questions? Yes: [facility] Required No: [facility] Approved Patient provided with pre-operative educational bag consisting of CHG soap, incentive spirometer, and patient education. Discharge folder provided consisting of use of CHG, how to use incentive spirometer, pain management, and managing opioid induced constipation. Patient verbalized understanding and denies any further questions. Patient was given 2 nutritional supplements at the end of today's visit and instructed to drink one the night before surgery and drink the other 2-4 hrs prior to scheduled surgery time. Patient verbalized understanding. documented in this encounter [facility] 05-06-2023 History and physical note Images from the original note were not included. History and Physical Patient: Tabatha Penny Date: 05/06/2023 12:48 PM Attending Physician: Li Coppola MD Chief Complaint: NSCLC of the right upper lobe HPI: Tabatha Penny is a 78 y.o. male former smoker with history of AAA, KS (s/p stent placement x 4 on plavix), AV block s/p pacemaker placement, TIA, VANDANA who was initially referred by Dr. Tobias for surgical evaluation of right upper lobe squamous cell carcinoma. To review, he underwent a biopsy of the right upper lobe in [place] which demonstrated NSCLC favoring squamous cell carcinoma. PET scan on 03/18/23 demonstrated SUV 13.3 in the right upper lobe and 2.9 in the left adrenal gland. He underwent adrenal biopsy on 04/04/23, which was benign. He had an EBUS with FNA on 04/28/[address] Coppola; level 7 was negative (not adequate), 11R was negative and adequate, and 4R was negative (not adequate). He completed PFTs today and returns to discuss further treatment. He previously had a stress test in December 2022 which was negative. He is feeling well with a new cough and shortness of breath with minimal activity. He denies fatigue or weight loss. Past Medical/Surgical History Past Medical History: Diagnosis Date AAA (abdominal aortic aneurysm) AV block CAD (coronary artery disease) Cardiomegaly Congestive heart failure COVID-19 Essential hypertension, benign Hyperlipidemia KS (myocardial infarction) states he had 4 heart attacks, 5 stents and a pacemaker VANDANA (obstructive sleep apnea) Pacemaker RBBB Squamous cell carcinoma of lung TIA (transient ischemic attack) thinks this is from migraines Vascular disease Past Surgical History: Procedure Laterality Date BRONCHOSCOPY FLEXIBLE DIAGNOSTIC N/A 04/28/2023 Laterality: N/A; Surgeon: Li Coppola MD; Location: [facility] MAIN OR BRONCHOSCOPY FLEXIBLE W/ EBUS DURING BRONCH DIAGNOSTICS/INTEVENTION FO N/A 04/28/2023 Laterality: N/A; Surgeon: Li Coppola MD; Location: [facility] MAIN OR PACEMAKER PLACEMENT 12/2022 Oncology History Squamous cell carcinoma of right lung Initial Diagnosis Squamous cell carcinoma of right lung 01/09/2023 Imaging OSH CXR Patchy left basilar pulmonary infiltrates. No effusion or pneumothorax identified. Cardiac and mediastinal silhouettes are within normal limits. Atherosclerotic calcifications involving the thoracic aorta. 03/05/2023 Pathology 03/18/2023 Imaging OSH PET 04/04/2023 Pathology Adrenal Biopsy [place]: He is not on home oxygen He does not have a history of stroke. Family History Family History Problem Relation Age of Onset Lung Cancer Mother Diabetes Sister Cancer- Other Brother unknown Social History Social History Tobacco Use Smoking status: Former Types: Cigarettes Quit date: 1993 Years since quittin.7 Smokeless tobacco: Never Substance Use Topics Alcohol use: Not Currently He does not have a history of daily use of narcotics for >30 days prior to this visit Living arrangement at the time of this visit: With spouse Medications Current Outpatient Medications Medication Sig amLODIPine 10 MG tablet Take 1 tablet by mouth daily. Aspirin [address] tablet Take 1 tablet by mouth daily. Atorvastatin 40 MG tablet Take 1 tablet by mouth at bedtime. Clopidogrel 75 MG tablet Take 1 tablet by mouth daily. Losartan 50 MG tablet Take 1 tablet by mouth daily. mirtazapine 7.5 MG tablet Take 1 tablet by mouth every evening at 6 PM. X 7 days then increase to 2 tabs. nitroGLYCERIN 0.[address] 1 tablet under tongue Every 5 MINutes as needed. [place] 3 1000 MG capsule Take 2 capsules by mouth daily. Pantoprazole [address] tablet DR Take 1 tablet by mouth daily. Vitamin E 200 units capsule Take 1 capsule by mouth daily. He is not on chronic immunosuppressive therapy/corticosteroids >10 days at the time of this visit He is not on chronic anticoagulation >10 days at the time of this visit Allergies/Immunizations Allergies: Penicillins Immunizations: Immunization History Administered Date(s) Administered [id number] COVID-19 monovalent vaccine, mRNA, Pfizer, 0.3 ML 08/31/2020, 09/28/2020, 05/05/[id number] COVID-19 monovalent vaccine (Pfizer) 12yr +, 30mcg/0.3mL 11/01/202120210922-8609 COVID-19 bivalent vaccine (Pfizer) 12yr +, 30mcg/0.3mL 05/07/2022 Review of Systems At the time of the visit patient reports shorntess of breath and cough. All other systems queried and are negative. OBJECTIVE: Physical Exam Blood pressure 155/68, pulse 67, temperature 97.2 F (36.2 C), temperature source Oral, resp. rate 18, weight 89.8 kg (198 lb), SpO2 95 %. on RA Constitutional: he is alert, oriented, well-developed, well-nourished, and in no acute distress. HEENT: Oropharynx is clear and moist. Extraocular motions are normal. Neck: Neck supple. No tracheal deviation present. Cardiovascular: Normal rate and regular rhythm. No murmur heard. Pulmonary/Chest: Breathing non-labored. Lung sounds normal without wheezes or rales. He exhibits no crepitus. Abdomen: Abdomen soft, non-tender, non-distended. Bowel sounds present. Musculoskeletal: He exhibits no edema. Lymphadenopathy: He has no cervical adenopathy. Neurological: He is alert and oriented. Skin: No rash noted. ECO Malnutrition Screening Tool (MST) Score: 0 Frailty Assessment Screening Score: 3 Imaging/Procedures/Results Review: Personal review completed of: Nuclear stress and Echo 01/10/23: Summary 1. No stress-induced perfusion defect to suggest ischemia. Exam is limited by inferior attenuation artifact. 2. Post stress left ventricular ejection fraction is normal, >70 %. 3. Gated SPECT imaging reveals normal myocardial wall motion with stress. Summary 1. Left ventricular systolic function is normal, with ejection fraction estimated at 55 +/- 5%. 2. The study was technically difficult. 3. The left ventricular diastolic function is grade I diastolic dysfunction, consistent with low or normal atrial pressures. 4. Right ventricular systolic function is normal. 5. No clinically significant valvular abnormalities. 6. There is no comparison study available. Biopsy, right upper lobe, 03/05/23: NSCLC favor SCC PET 03/18/23: Left adrenal biopsy, 04/04/23: Benign 04/28/23 EBUS with FNA: A. SUBCARINAL LYMPH NODE, FNA (CYTOLOGY AND CELL BLOCK): FINAL DIAGNOSIS: No Malignant Cells Are Identified Lymphoid Sample Immediate Study: Adequacy/Preliminary Diagnosis: Not Adequate Vera Gayetsky, CT (ASCP), April 28, 2023 B. 11R LYMPH NODE, FNA (CYTOLOGY AND CELL BLOCK): FINAL DIAGNOSIS: No Malignant Cells Are Identified Lymphoid Sample Immediate Study: Adequacy/Preliminary Diagnosis: Adequate for Lymphocytes Vera Gayetsky, CT (ASCP), April 28, 2023 C. 4R LYMPH NODE, FNA (CYTOLOGY AND CELL BLOCK): FINAL DIAGNOSIS: No Malignant Cells Are Identified Lymphoid Sample Immediate Study: Adequacy/Preliminary Diagnosis: Not Adequate Vera Gayetsky, CT (ASCP), April 28, 2023 PFTs 05/06/23: FEV1 2.16/72%, DLCO 18.93/77% ASSESSMENT/PLAN: Problem Obesity (Bmi 30.0-34.9) Squamous Cell Carcinoma of Right Lung Tabatha Penny is a 78 y.o. male former smoker with a past medical history of KS with stent placement, AAA, AV block with pacemaker, TIA, and VANDANA who has a right upper lobe NSCLC. His PET scan demonstrated a mildly hypermetabolic left adrenal nodule which was biopsy negative. EBUS with FNA of 11R was negative. His PFTs are adequate for resection. Stress test is negative. We will proceed with a robotic assisted thoracoscopic right upper lobe lobectomy. Surgical consent and labs obtained today. The patient was seen, images reviewed, and plan of care discussed with Li Coppola MD. Amarilystere aNpoles, BRANCH ASSOCIATE TELLER-GLUE SPRAYER #[id number] Associated attestation - Li Coppola MD - 05/15/2023 2:59 PM EDT Thoracic Surgery Attending I saw and independently examined the patient. I agree with the history of present illness, past medical history, family history, social history, medication list, and allergies as listed. Independent review of labs and radiographs, as well as review medical records, confirm the findings noted below, I agree with the assessment and plan as noted below. I have reviewed the note and made edits as neccessary. Please see the separate progress note for my impression. The plan was developed mutually at the time of the clinic visit. The nurse practitioner/physician biology laboratory assistant and I have spoken with the patient and provided written and verbal instructions for the patient. The SHARA note has been reviewed and I agree with the assessment and plan. Follow-up arrangements were made prior to the patient being discharged from the clinic. Li Coppola MD [facility] 05-06-2023 History and physical note Images from the original note were not included. History and Physical Patient: Tabatha Penny Date: 05/06/2023 12:48 PM Attending Physician: Li Coppola MD Chief Complaint: NSCLC of the right upper lobe HPI: Tabatha Penny is a 78 y.o. male former smoker with history of AAA, KS (s/p stent placement x 4 on plavix), AV block s/p pacemaker placement, TIA, VANDANA who was initially referred by Dr. Tobias for surgical evaluation of right upper lobe squamous cell carcinoma. To review, he underwent a biopsy of the right upper lobe in [place] which demonstrated NSCLC favoring squamous cell carcinoma. PET scan on 03/18/23 demonstrated SUV 13.3 in the right upper lobe and 2.9 in the left adrenal gland. He underwent adrenal biopsy on 04/04/23, which was benign. He had an EBUS with FNA on 04/28/[address] Coppola; level 7 was negative (not adequate), 11R was negative and adequate, and 4R was negative (not adequate). He completed PFTs today and returns to discuss further treatment. He previously had a stress test in December 2022 which was negative. He is feeling well with a new cough and shortness of breath with minimal activity. He denies fatigue or weight loss. Past Medical/Surgical History Past Medical History: Diagnosis Date AAA (abdominal aortic aneurysm) AV block CAD (coronary artery disease) Cardiomegaly Congestive heart failure COVID-19 Essential hypertension, benign Hyperlipidemia KS (myocardial infarction) states he had 4 heart attacks, 5 stents and a pacemaker VANDANA (obstructive sleep apnea) Pacemaker RBBB Squamous cell carcinoma of lung TIA (transient ischemic attack) thinks this is from migraines Vascular disease Past Surgical History: Procedure Laterality Date BRONCHOSCOPY FLEXIBLE DIAGNOSTIC N/A 04/28/2023 Laterality: N/A; Surgeon: Li Coppola MD; Location: [facility] MAIN OR BRONCHOSCOPY FLEXIBLE W/ EBUS DURING BRONCH DIAGNOSTICS/INTEVENTION FO N/A 04/28/2023 Laterality: N/A; Surgeon: Li Coppola MD; Location: [facility] MAIN OR PACEMAKER PLACEMENT 12/2022 Oncology History Squamous cell carcinoma of right lung Initial Diagnosis Squamous cell carcinoma of right lung 01/09/2023 Imaging OSH CXR Patchy left basilar pulmonary infiltrates. No effusion or pneumothorax identified. Cardiac and mediastinal silhouettes are within normal limits. Atherosclerotic calcifications involving the thoracic aorta. 03/05/2023 Pathology 03/18/2023 Imaging OSH PET 04/04/2023 Pathology Adrenal Biopsy [place]: He is not on home oxygen He does not have a history of stroke. Family History Family History Problem Relation Age of Onset Lung Cancer Mother Diabetes Sister Cancer- Other Brother unknown Social History Social History Tobacco Use Smoking status: Former Types: Cigarettes Quit date: 1992 Years since quittin.7 Smokeless tobacco: Never Substance Use Topics Alcohol use: Not Currently He does not have a history of daily use of narcotics for >30 days prior to this visit Living arrangement at the time of this visit: With spouse Medications Current Outpatient Medications Medication Sig amLODIPine 10 MG tablet Take 1 tablet by mouth daily. Aspirin [address] tablet Take 1 tablet by mouth daily. Atorvastatin 40 MG tablet Take 1 tablet by mouth at bedtime. Clopidogrel 75 MG tablet Take 1 tablet by mouth daily. Losartan 50 MG tablet Take 1 tablet by mouth daily. mirtazapine 7.5 MG tablet Take 1 tablet by mouth every evening at 6 PM. X 7 days then increase to 2 tabs. nitroGLYCERIN 0.[address] 1 tablet under tongue Every 5 MINutes as needed. Charlotte 3 1000 MG capsule Take 2 capsules by mouth daily. Pantoprazole [address] tablet DR Take 1 tablet by mouth daily. Vitamin E 200 units capsule Take 1 capsule by mouth daily. He is not on chronic immunosuppressive therapy/corticosteroids >10 days at the time of this visit He is not on chronic anticoagulation >10 days at the time of this visit Allergies/Immunizations Allergies: Penicillins Immunizations: Immunization History Administered Date(s) Administered [id number] COVID-19 monovalent vaccine, mRNA, Pfizer, 0.3 ML 08/31/2020, 09/28/2020, 05/05/[id number] COVID-19 monovalent vaccine (Pfizer) 12yr +, 30mcg/0.3mL 11/01/[id number] COVID-19 bivalent vaccine (Pfizer) 12yr +, 30mcg/0.3mL 05/07/2022 Review of Systems At the time of the visit patient reports shorntess of breath and cough. All other systems queried and are negative. OBJECTIVE: Physical Exam Blood pressure 155/68, pulse 67, temperature 97.2 F (36.2 C), temperature source Oral, resp. rate 18, weight 89.8 kg (198 lb), SpO2 95 %. on RA Constitutional: he is alert, oriented, well-developed, well-nourished, and in no acute distress. HEENT: Oropharynx is clear and moist. Extraocular motions are normal. Neck: Neck supple. No tracheal deviation present. Cardiovascular: Normal rate and regular rhythm. No murmur heard. Pulmonary/Chest: Breathing non-labored. Lung sounds normal without wheezes or rales. He exhibits no crepitus. Abdomen: Abdomen soft, non-tender, non-distended. Bowel sounds present. Musculoskeletal: He exhibits no edema. Lymphadenopathy: He has no cervical adenopathy. Neurological: He is alert and oriented. Skin: No rash noted. ECO Malnutrition Screening Tool (MST) Score: 0 Frailty Assessment Screening Score: 3 Imaging/Procedures/Results Review: Personal review completed of: Nuclear stress and Echo 01/10/23: Summary 1. No stress-induced perfusion defect to suggest ischemia. Exam is limited by inferior attenuation artifact. 2. Post stress left ventricular ejection fraction is normal, >70 %. 3. Gated SPECT imaging reveals normal myocardial wall motion with stress. Summary 1. Left ventricular systolic function is normal, with ejection fraction estimated at 55 +/- 5%. 2. The study was technically difficult. 3. The left ventricular diastolic function is grade I diastolic dysfunction, consistent with low or normal atrial pressures. 4. Right ventricular systolic function is normal. 5. No clinically significant valvular abnormalities. 6. There is no comparison study available. Biopsy, right upper lobe, 03/05/23: NSCLC favor SCC PET 03/18/23: Left adrenal biopsy, 04/04/23: Benign 04/28/23 EBUS with FNA: A. SUBCARINAL LYMPH NODE, FNA (CYTOLOGY AND CELL BLOCK): FINAL DIAGNOSIS: No Malignant Cells Are Identified Lymphoid Sample Immediate Study: Adequacy/Preliminary Diagnosis: Not Adequate Vera Gayetsky, CT (ASCP), April 28, 2023 B. 11R LYMPH NODE, FNA (CYTOLOGY AND CELL BLOCK): FINAL DIAGNOSIS: No Malignant Cells Are Identified Lymphoid Sample Immediate Study: Adequacy/Preliminary Diagnosis: Adequate for Lymphocytes Vera Gayetsky, CT (ASCP), April 28, 2023 C. 4R LYMPH NODE, FNA (CYTOLOGY AND CELL BLOCK): FINAL DIAGNOSIS: No Malignant Cells Are Identified Lymphoid Sample Immediate Study: Adequacy/Preliminary Diagnosis: Not Adequate Vera Gayetsky, CT (ASCP), April 28, 2023 PFTs 05/06/23: FEV1 2.16/72%, DLCO 18.93/77% ASSESSMENT/PLAN: Problem Obesity (Bmi 30.0-34.9) Squamous Cell Carcinoma of Right Lung Tabatha Penny is a 78 y.o. male former smoker with a past medical history of KS with stent placement, AAA, AV block with pacemaker, TIA, and VANDANA who has a right upper lobe NSCLC. His PET scan demonstrated a mildly hypermetabolic left adrenal nodule which was biopsy negative. EBUS with FNA of 11R was negative. His PFTs are adequate for resection. Stress test is negative. We will proceed with a robotic assisted thoracoscopic right upper lobe lobectomy. Surgical consent and labs obtained today. The patient was seen, images reviewed, and plan of care discussed with Li Coppola MD. Amarilys Napoles APRN-GLUE SPRAYER #[id number] Associated attestation - Li Coppola MD - 05/15/2023 2:59 PM EDT Thoracic Surgery Attending I saw and independently examined the patient. I agree with the history of present illness, past medical history, family history, social history, medication list, and allergies as listed. Independent review of labs and radiographs, as well as review medical records, confirm the findings noted below, I agree with the assessment and plan as noted below. I have reviewed the note and made edits as neccessary. Please see the separate progress note for my impression. The plan was developed mutually at the time of the clinic visit. The nurse practitioner/physician biology laboratory assistant and I have spoken with the patient and provided written and verbal instructions for the patient. The SHARA note has been reviewed and I agree with the assessment and plan. Follow-up arrangements were made prior to the patient being discharged from the clinic. Li Coppola MD documented in this encounter [facility] 05-06-2023 Instructions Amarilys Napoles APRN-GLUE SPRAYER - 05/06/2023 11:15 AM EDT You should have been given 2 nutritional supplements at the end of today's visit. Please drink one the night before surgery and drink the other 2-4 hrs prior to your scheduled surgery time. Patient Medication Instructions: Here is a list of your current medications we have on file: Current Outpatient Medications Medication Sig amLODIPine 10 MG tablet Take 1 tablet by mouth daily. Aspirin [address] tablet Take 1 tablet by mouth daily. Atorvastatin 40 MG tablet Take 1 tablet by mouth at bedtime. Clopidogrel 75 MG tablet Take 1 tablet by mouth daily. Losartan 50 MG tablet Take 1 tablet by mouth daily. mirtazapine 7.5 MG tablet Take 1 tablet by mouth every evening at 6 PM. X 7 days then increase to 2 tabs. nitroGLYCERIN 0.[address] 1 tablet under tongue Every 5 MINutes as needed. Charlotte 3 1000 MG capsule Take 2 capsules by mouth daily. Pantoprazole [address] tablet DR Take 1 tablet by mouth daily. Vitamin E 200 units capsule Take 1 capsule by mouth daily. -STOP taking ALL vitamins and herbal medications (including fish oil, Charlotte-3, garlic, glucosamine-chondroitin, gingko, ginseng, tumeric, multivitamins) 2 weeks before surgery. -STOP taking NSAIDS (including ibuprofen, Advil, Motrin, naproxen, Aleve) 7 days before surgery. -STOP taking blood thinners Warfarin (Coumadin) or Plavix (Clopidogrel) 7 days before surgery. -Only take ASA and pantoprazole on the morning of surgery with a sip of water. Do not take any of your other medications on the morning of surgery. -STOP taking mirtazapine, amlodipine, atorvastatin, and losartan the day before surgery. -If you use inhalers, it is ok to use them as prescribed the morning of surgery. documented in this encounter [facility] 04-28-2023 Nurse Note [facility]. Vital signs taken and stable. Patient given drink and snacks. Family called to bedside. Patient assessed. 1523-Discharge instructions, prescriptions, and anesthesia precautions reviewed with patient and family. All questions answered. 1534-Patient meets [facility] discharge criteria and discharged per MD order to home. Patient taken by wheelchair by RN to awaiting car. All belongings gathered with patient. Family/friend to drive patient home and care for patient 24 hours post-op. [facility] 04-28-2023 Miscellaneous Notes 1441-Patient arrived to [facility] ASU from [facility] PACU via [facility]. Vital signs taken and stable. Patient given drink and snacks. Family called to bedside. Patient assessed. 1523-Discharge instructions, prescriptions, and anesthesia precautions reviewed with patient and family. All questions answered. 1534-Patient meets ASU discharge criteria and discharged per MD order to home. Patient taken by wheelchair by RN to awaiting car. All belongings gathered with patient. Family/friend to drive patient home and care for patient 24 hours post-op. 1349: This RN took over care of pt. After receiving report from TONY Paz. 1411: Paged Dr. Mckeon asking for clearance for CXR. 1415: Dr. Mckeon called back and cleared CXR. RN allowed pt. To drink water. Pt. Did so without diff. 1428: Called report to TONY Kendall in A[facility] and gave report. 1433: Called Dr. Patel and advised her of elevated BP. Ok per pt. To go home. 1439: Pt. Transported to A[facility] room 16 with SANJANA Barr. Report given to Cortney. Patient denies hx of chemo and radiation. Patient denies metal or foreign objects in body aside from a pacemaker. Patient denies hx of seizure but had a stroke. Called pacer [facility], they stated they need to see him before OR. 1200: Pacer clinic RN at bedside, states pt does not need to be seen post-op or in PACU. documented in this encounter [facility] 04-28-2023 Hospital Discharge instructions Kwasi Mckeon MD - 04/28/2023 2:39 PM EDT THORACIC SURGERY POST-OPERATIVE INSTRUCTIONS: INCENTIVE SPIROMETER: -Continue to use your incentive spirometer every hour while awake for 4 weeks. PAIN MEDICATION: -You may take acetaminophen or ibuprofen as directed on the package in addition to the prescription pain medication provided to you. CALL THE DOCTOR IF YOU EXPERIENCE: UNRELIEVED PAIN: - Increased or unrelieved pain SIGNS OF WOUND INFECTION: - Increase in pain in or around wound. - Change in the amount of drainage. - Change in the color of drainage. - Change in the odor of drainage. - Warmth in the tissues around the wound. - Red streaks on the skin near the wound. - Fever (temperature greater than 101.5 degrees F) - Incision separates or opens up CHEST PAIN OR RESPIRATORY CHANGES: - Chest pain or shortness of breath - Shortness of breath that gets worse - Cough that gets worse - Coughing up blood FEVER/CHILLS/FLU-LIKE SYMPTOMS: Temperature greater than 101.5 degrees F and/or chills. - Signs of cold or flu. NAUSEA OR VOMITING -Inability to take fluids for greater than 24 hours. SIGNS OF DEEP VEIN THROMBOSIS (DVT): DVT = Deep Vein Thrombus, or Blood Clot -Any Tender, Swollen, or Reddened Areas From Your Groin To Your Heels -Numbness or Tingling In Groin or Calf -The Skin on Your Leg Looks Pale or Blue Or It Feels Cold To Touch -Numbness or Tingling In Groin or Calf -Any Shortness of Breath -Chest Pain -Fever or Chills Thoracic Surgery Contact Information: Friday - Friday 8am-4:30pm: [phone] Evenings, weekends, holidays: [phone] and ask the cut off operator scorer to page the Thoracic Fellow On-Call. - You can restart your home Plavix tomorrow if you do not cough up any blood today. If you cough up blood, please hold Plavix for 24 hours. If this continues, please call our team. documented in this encounter [facility] 04-28-2023 Nurse Note 1349: This RN took over care of pt. After receiving report from TONY Paz. 1411: Paged Dr. Mckeon asking for clearance for CXR. 1415: Dr. Mckeon called back and cleared CXR. RN allowed pt. To drink water. Pt. Did so without diff. 1428: Called report to TONY Kendall in A[facility] and gave report. 1433: Called Dr. Patel and advised her of elevated BP. Ok per pt. To go home. 1439: Pt. Transported to [facility] room 16 with Cortney, SANJANA. Report given to Cortney. [facility] Nurse Surgical operation note 1245 - Family notified of surgery start 1240 - Hand-off report sent to PACU charge nurse 1307 - Family called per MD request 1301 - PACU given notice of arrival 1305 - All appropriate parties notified of room turnover. 1309 - Patient extubated 1313- Transported to PACU with anesthesia at bedside on oxygen inhalation. [facility] 04-28-2023 Nurse Note 1245 - Family notified of surgery start 1240 - Hand-off report sent to PACU charge nurse 1307 - Family called per MD request 1301 - PACU given notice of arrival 1305 - All appropriate parties notified of room turnover. 1309 - Patient extubated 1313- Transported to PACU with anesthesia at bedside on oxygen inhalation. documented in this encounter [facility] 04-28-2023 Nurse Note Patient denies hx of chemo and radiation. Patient denies metal or foreign objects in body aside from a pacemaker. Patient denies hx of seizure but had a stroke. Called [facility]acer clinic, they stated they need to see him before OR. 1200: Pacer clinic RN at bedside, states pt does not need to be seen post-op or in PACU. [facility] 01-24-2023 History of Present illness Narrative Patient Name: Tabatha Penny Date: 01/24/23 [id number] 1945 Wound Check Assessment Type of Incision Check: Date of Device Implant 01/13/23 Implanting Outboard Motor Inspector: Dr. Gaitan Following Outboard Motor Inspector: Will be changing to Outboard Motor Inspector closer to home ([place]) Type and Brand of device: Medtronic dual chamber Pacemaker Site of incision/device: left chest Site Assessment: The incision site is Wound clean and dry no evidence of infection., No Erythema, No Drainage, Wound Intact, and Positive for small amount of pocket Edema. Ecchymosis noted to device pocket area Subjective: The patient denies fever, chills, redness, or moderate to severe pain. Reviewed signs of infection Type of Device Interrogation: In-clinic Interrogation completed Follow up: Site needs to be reassessed: no The patient will have an office visit in: 3 months Remote transmitter education completed : Is currently set up Unable to take a picture of wound today due to equipment not working I reviewed with patient the signs and symptoms of infection. The restrictions were explained to the patient in verbal and written form, and the patient verbalized understanding. documented in this encounter [facility] 01-14-2023 Hospital course Narrative [facility] DISCHARGE SUMMARY -- [facility] Tabatha Penny Admitted: 01/09/2023 Discharge Date: 01/14/23 PCP Handoff Recommended Outpatient Testing CT chest to follow up lung nodule Results Pending At Discharge None Clinical Summary 77 y.o. male patient of Jada Peters MD with history of CAD, DM2 presented to [facility] via transfer from [facility] for symptoms of chest pain, sob and noted AV block. Cardiology was consulted and he is now status post pacemaker placement. He was discharged home in stable condition with clear instructions for outpatient follow up. Symptomatic AV Block Presented with chest pain, dyspnea and noted to have AV block Cardiology consulted EKG with Type I second degree AV block [facility] no ischemia Echo with preserved EF but no valvular abnormalities S/p pacemaker 01/13 OP f/u Lung nodule RUL nodule noted on post procedure CXR Pt elected to proceed with outpatient CT chest as recommended CAD Prior PCI to LAD and RCA around 8-9 years ago No chest pain; negative Troponin Continue statin, ASA, Plavix HTN Normotensive Continue norvasc, losartan BB held COPD Noted per hx but not on any inhaler therapy, former tobacco use but quit 1992 Monitor History of DM2 Noted per hx, no a1c or medications BG normal on admit 86 A1c 5.7% Monitor Discharge Medications Discharge Medications Medications To Continue Details amLODIPine 10 MG tablet Commonly known as: NORVASC Take 1 (one) tablet (10 mg total) by mouth daily . aspirin 81 MG EC tablet Take 1 (one) tablet (81 mg total) by mouth daily . atorvastatin 40 MG tablet Commonly known as: LIPITOR Take 1 (one) tablet (40 mg total) by mouth daily . clopidogreL 75 mg tablet Commonly known as: PLAVIX Take 1 (one) tablet (75 mg total) by mouth daily . fish oil-omega-3 fatty acids 300-1,000 mg capsule Take 2 (two) capsules by mouth daily . losartan 50 MG tablet Commonly known as: COZAAR Take 1 (one) tablet (50 mg total) by mouth daily . nitroGLYCERIN 0.4 MG SL tablet Commonly known as: NITROSTAT Place 1 (one) tablet (0.4 mg total) under the tongue every 5 (five) minutes as needed for chest pain . Quantity: 25 tablet pantoprazole 40 MG tablet Commonly known as: PROTONIX Take 1 (one) tablet (40 mg total) by mouth daily . vitamin E 200 UNIT capsule Take 1 (one) capsule (200 Units total) by mouth daily . Stopped Medications metoprolol tartrate 25 MG tablet Commonly known as: LOPRESSOR Physician(s) Follow Up: [facility] Follow up someone will call to set up a wound/device check in ~ 10 days. Jada Peters MD [address] [place] [address] Schedule an appointment as soon as possible for a visit in 2 week(s) Condition at Discharge: Stable Disposition: Home I reviewed discharge recommendations with the patient in person. Patient instructions, including activity, were given to the patient/family at discharge. On day of discharge I saw Tabatha Penny and spent: > 30 minutes on discharge. Completed by: Gayle Nair on 01/14/23, 11:42 AM Associated attestation - Eliecer Richard MD - 01/14/2023 3:22 PM EDT [facility] NOTE ADDENDUM I saw and examined the patient independently of the [facility] fellow. Labs, medications, imaging and other studies were reviewed. I agree with history, physical examination findings, medical decision making and the assessment/plan. documented in this encounter [facility] 01-14-2023 History of Present illness Narrative Electrophysiology Inpatient Follow-up Heart & Vascular [facility] 01/14/2023 Linda Schofield, [facility] Patient: Tabatha Penny Date of : 1945 (77 y.o.) PCP: Jada Peters MD Assessment/Plan: * AV block Overview 2:1 block and type 1 second degree AV block noted, no evidence of CHB. S/p MDT DC PPM with LBB pacing Device site dry and intact, no hematoma. CXR negative for pneumothorax, does note nodule- communicated with [facility] Device check this morning with appropriate device functioning Reviewed restrictions and s/s of infection Will have patient follow up for wound/device check in ~10 days. He has follow up with his new database programmer analyst on 01/29. Okay to discharge from EP standpoint. Coronary artery disease involving [place] heart Overview Prior PCI to LAD and RCA around 8-9 years ago. Prior echo showed EF 60% in 2016. SPECT in 2016 showed perfusion changes consistent with prior KS in portions of basal inferoseptal and mid to distal inferior apical/lateral segments. Assessment & Plan Echo showed EF 55%, Stress test negative for ischemia. Continue ASA, atorvastatin, and Plavix Subjective He is doing good this morning, some pain overnight at device site and took tylenol Telemetry shows paced rhythm ECG 12 Lead Final Result by Cali Hernandez DO (01/09/2023 4924) Echocardiogram complete w contrast Final Result by Lisa Yeung MD (01/10/2023 1635) LASTCCTADATE@@ Review of Systems: Review of Systems Constitutional: Negative. Respiratory: Negative. Cardiovascular: Negative. Skin: Positive for wound. Minimal pain at device site. Neurological: Negative. Psychiatric/Behavioral: Negative. Current Facility-Administered Medications Medication Dose Route Frequency Provider Last Rate Last Admin acetaminophen (TYLENOL) tablet 650 mg 650 mg Oral Q4H PRN Edward Temple DO 650 mg at 01/14/23 0542 amLODIPine (NORVASC) tablet 10 mg 10 mg Oral Daily Edward Temple DO 10 mg at 01/13/23 0942 aspirin EC tablet 81 mg 81 mg Oral Daily Edward Temple DO 81 mg at 01/13/23 0942 atorvastatin (LIPITOR) tablet 40 mg 40 mg Oral Nightly Edward Temple DO 40 mg at 01/13/23 2238 clindamycin (CLEOCIN) IVPB 900 mg (premix) 900 mg Intravenous 60 Min Pre-Procedure Linda Schofield, GLUE SPRAYER clopidogreL (PLAVIX) tablet 75 mg 75 mg Oral Daily Edward Temple DO 75 mg at 01/13/23 0943 losartan (COZAAR) tablet 50 mg 50 mg Oral Daily Edward Temple DO 50 mg at 01/13/23 1300 melatonin tablet 3 mg 3 mg Oral Nightly PRN Edward Temple DO omega-3 acid ethyl esters (LOVAZA) capsule 2 g 2 g Oral Daily Edward Temple DO 2 g at 01/13/23 0942 pantoprazole (PROTONIX) EC tablet 40 mg 40 mg Oral Daily Edward Temple DO 40 mg at 01/13/23 0942 senna (SENOKOT) tablet 8.6 mg 1 tablet Oral BID PRN Edward Temple DO sodium chloride (PF) (NS) flush 5 mL 5 mL Intravenous PRN Cali Hernandez DO And sodium chloride 0.9% (NS) 0-150 mL/hr Intravenous PRN Cali Hernandez DO sodium chloride (PF) (NS) flush 5 mL 5 mL Intravenous PRN Edward Temple DO And sodium chloride (PF) (NS) flush 5 mL 5 mL Intravenous Q8H DESIREE Edward Temple DO 5 mL at 01/14/23 0543 And sodium chloride 0.9% (NS) 0-150 mL/hr Intravenous PRN Edward Temple DO vitamin E capsule 200 Units 200 Units Oral Daily Edward Temple DO 200 Units at 01/13/23 0942 Objective: Physical Examination: BP 122/70 (BP Location: Right arm, Patient Position: Lying) Pulse 69 Temp 98 F (36.7 C) (Oral) Resp 15 Ht 5' 9 Wt 87.2 kg (192 lb 3.2 oz) Comment: standing wt SpO2 96% BMI 28.38 kg/m Physical Exam Vitals reviewed. Cardiovascular: Rate and Rhythm: Normal rate and regular rhythm. Heart sounds: Normal heart sounds. Pulmonary: Effort: Pulmonary effort is normal. Musculoskeletal: Right lower leg: No edema. Left lower leg: No edema. Skin: General: Skin is warm and dry. Comments: Device site dry and intact. No hematoma. Neurological: General: No focal deficit present. Mental Status: He is alert and oriented to person, place, and time. Psychiatric: Mood and Affect: Mood normal. No results found for: CHOL , LDLCALC , LDLDIRECT , TRIG , HDL Serum creatinine: 0.93 mg/dL 01/13/23 0419 Estimated creatinine clearance: 67.6 mL/min [employer] NOTE Product: Sling- horizontal arm Nursing to place [facility] [place] PROGRESS NOTE Assessment and Plan 77 y.o. male patient of Jada Peters MD with history of CAD, DM2 presented to [facility] via transfer from [facility] for symptoms of chest pain, sob and noted AV block. Symptomatic AV Block Presented with chest pain, dyspnea and noted to have AV block Cardiology consulted EKG with Type I second degree AV block Lexiscan 01/10 no ischemia Echo with preserved EF but no valvular abnormalities Plan for pacemaker today CAD Prior PCI to LAD and RCA around 8-9 years ago No chest pain; negative Troponin Continue statin, ASA, Plavix HTN Pt hypertensive on arrival, likely from missed meds Continue norvasc, losartan Held lopressor w bradycardia COPD Noted per hx but not on any inhaler therapy, former tobacco use but quit 1992 CXR with patchy left basilar infiltrate Continue to monitor History of DM2 Noted per hx, no a1c or medications BG normal on admit 86 A1c 5.7 Monitor Disposition Estimated Discharge Date: pending Cardiology recs Discharge Location: home Outpatient Testing: Quality Measures DVT Prophylaxis: lovenox Galloway Catheter: absent Code Status Full Code; code status verified on 01/10/2023 with patient (capacity intact) Primary Contact Information Subjective Patient seen and examined at bedside. No acute concerns or complaints today. Awaiting pacemaker placement. Objective BP (!) 143/89 (BP Location: Left arm, Patient Position: Lying) Pulse (!) 57 Temp 97.8 F (36.6 C) (Oral) Resp 16 Ht 5' 9 Wt 87.2 kg (192 lb 3.2 oz) Comment: standing wt SpO2 96% BMI 28.38 kg/m Physical Examination General Appearance: alert; well appearing; in no acute distress HEENT: Head- normocephalic; Eyes- EOMI, sclera anicteric; Throat- mucous membranes moist Cardiovascular: irregular rate and rhythm; normal S1, S2; no murmurs, rubs, clicks or gallops; peripheral edema absent Respiratory: lungs clear to auscultation; without wheezes, rales or rhonchi; on room air Abdomen: soft, non-tender, non-distended Neurological: oriented x 3; normal speech; no focal findings or movement disorder noted Musculoskeletal: no significant deformity or tenderness to palpation Skin: normal coloration Psych: normal mood and affect Associated attestation - Eliecer Richard MD - 01/13/2023 1:50 PM EDT [facility] [place] NOTE ADDENDUM I saw and examined the patient independently of the [facility] [place] fellow. Labs, medications, imaging and other studies were reviewed. I agree with history, physical examination findings, medical decision making and the assessment/plan with additions as noted in my documentation below. HPI No acute issues overnight per staff. No chest pain or palpitations. No nausea emesis. Physical Examination General Appearance: alert; chronically ill appearing; in no acute distress HEENT: Head- normocephalic; Eyes- EOMI, sclera anicteric; Ears- hearing intact; Nose- no nasal discharge; Throat- mucous membranes moist Cardiovascular: irregular rate and irregular rhythm; normal S1, S2; no murmurs, rubs, clicks or gallops; no peripheral edema Respiratory: lungs clear to auscultation; without wheezes, rales or rhonchi; on room air Abdomen: soft, non-tender, non-distended; positive bowel sounds Neurological: oriented x 3; normal speech; no focal findings or movement disorder noted Musculoskeletal: no significant deformity or tenderness to palpation Skin: normal coloration; no obvious rashes, lesions or skin breakdown Psych: normal mood and affect Assessment/Plan 2-1 AV block, type I Mobitz secondary AV block-proceed with pacemaker this a.m. per EP. CAD-resume, ASA, Plavix. TTE with preserved LVEF. Electrophysiology Progress Note Assessment/Plan: 2-1 AV block and type I Mobitz secondary AV block: I have not seen evidence of complete heart block. However, the patient does note symptoms consistent with bradycardia. We discussed the option of holding off on the pacemaker versus proceeding today considering the lack of evidence of third degree AV block. At this time, the patient would like to proceed with a permanent pacemaker for symptomatic bradycardia. He states he has been tired, and getting shortness of breath easily. We discussed the risks of bleeding, infection, lead perforation, the risk of a pacing to his cardiomyopathy, and others. Knowing these risks, the patient would like to proceed with a pacemaker later today. I have held his Lovenox, prescribed lower extremity compression devices, and given him IV fluids. He should remain n.p.o. His echo was normal and his nuclear stress test did not show significant ischemic areas. His presenting EKG showed a heart rate of 40 bpm with junctional escape beats. Subjective: Mr. Penny is feeling well this am. Objective: Vital signs in last 24 hours: Temp: [97.6 F (36.4 C)-97.9 F (36.6 C)] 97.8 F (36.6 C) Heart Rate: [57-78] 57 Resp: [10-22] 10 BP: (109-145)/(71-89) 143/89 Intake/Output last 3 shifts: I/O last 3 completed shifts: In: 310 [P.O.:300; I.V.:10] Out: 2725 [Urine:2725] Intake/Output this shift: No intake/output data recorded. Physical Exam: Otherwise alert and oriented X3 in no acute distress. Head is normocephalic. No epistaxis noted. No significant muscular atrophy. Normal skin turgor. Neck with no masses. Telemetry: Independently reviewed, type I Mobitz second-degree AV block, prolonged first-degree block, right bundle branch block. Cardiographics: Reviewed and noted above. Imaging: Reviewed and noted above. Lab Review Results from last 7 days Lab Units 01/09/23 2110 01/09/23 1736 TROPONIN T ng/L 17 18 Results from last 7 days Lab Units 01/13/23 0419 SODIUM mmol/L 137 POTASSIUM mmol/L 3.8 CHLORIDE mmol/L 104 BUN mg/dL 15 CREATININE mg/dL 0.93 GLUCOSE mg/dL 94 CALCIUM mg/dL 9.0 Results from last 7 days Lab Units 01/13/23 0419 WBC K/mcL 7.16 HGB g/dL 13.8 HCT % 40.3* PLT K/mcL 195 Results from last 7 days Lab Units 01/09/23 1736 TSH mcIU/mL 2.63 Results from last 7 days Lab Units 01/09/23 1736 NT PRO BNP pg/mL 375* Cardiology Progress Note Assessment/Plan: Cardiovascular and Mediastinum Coronary artery disease involving [place] heart Overview Prior PCI to LAD and RCA around 8-9 years ago. Prior echo showed EF 60% in 2016. SPECT in 2016 showed perfusion changes consistent with prior KS in portions of basal inferoseptal and mid to distal inferior apical/lateral segments. Assessment & Plan Troponins negative. Patient denies any active chest pain at this time. Stress negative * AV block Overview Per telemetry review noted second-degree type I and possible 2-1 block. No complete heart block noted. Assessment & Plan No urgent indication for pacing. Stress test 01/10 without ischemia. Echo 01/10 with preserved EF, no valvular abnormalities. Plan is for pacemaker tomorrow Subjective: Mr. Penny denies chest pain or dyspnea Objective: Vital signs in last 24 hours: Temp: [97.5 F (36.4 C)-98.8 F (37.1 C)] 97.7 F (36.5 C) Heart Rate: [41-82] 74 Resp: [10-24] 22 BP: (109-159)/(59-81) 109/71 Intake/Output last 3 shifts: I/O last 3 completed shifts: In: 2387.9 [P.O.:800; I.V.:1587.9] Out: 2675 [Urine:2675] Intake/Output this shift: No intake/output data recorded. Review of Systems: All systems were reviewed and otherwise negative except for that noted above. Physical Exam: Neck: No JVD. Heart:: Regular Rhythm. Normal Intensity S1 and S2. Lungs: Clear to auscultation. Good air movement. No crackles noted. Extremities: Extremities are warm. No peripheral edema. Adequate peripheral pulses. Otherwise alert and oriented X3 in no acute distress. Head is normocephalic. No epistaxis noted. Abdomen is soft, nontender without any masses noted. No significant muscular atrophy. Normal skin turgor. Telemetry: Normal sinus rhythm. and heart block noted Cardiographics: I independently reviewed and noted above. Imaging: Reviewed independently and noted above. Lab Review Results from last 7 days Lab Units 01/09/23 2110 01/09/23 1736 TROPONIN T ng/L 17 18 Results from last 7 days Lab Units 01/10/23 0445 SODIUM mmol/L 142 POTASSIUM mmol/L 3.7 CHLORIDE mmol/L 108 BUN mg/dL 12 CREATININE mg/dL 0.94 GLUCOSE mg/dL 102* CALCIUM mg/dL 9.4 Results from last 7 days Lab Units 01/09/23 1736 NT PRO BNP pg/mL 375* Results from last 7 days Lab Units 01/10/23 0445 WBC K/mcL 6.27 HGB g/dL 13.4* HCT % 39.7* PLT K/mcL 184 Results from last 7 days Lab Units 01/09/23 1736 TSH mcIU/mL 2.63 [facility] [place] PROGRESS NOTE Assessment and Plan 77 y.o. male patient of Jada Peters MD with history of CAD, DM2 presented to [facility] via transfer from [facility] for symptoms of chest pain, sob and noted AV block. Symptomatic AV Block Presented to OSH with chest pain, dyspnea and noted to have AV block Lopressor stopped Cardiology consulted EKG with Type I second degree AV block Stress test 01/10 no ischemia Echo with preserved EF but no valvular abnormalities Plan for pacemaker on Friday CAD Prior PCI to LAD and RCA around 8-9 years ago No chest pain; negative Troponin Continue statin; ASA; Plavix HTN Pt hypertensive on arrival, likely from missed meds Continue norvasc, losartan Held lopressor w bradycardia COPD Noted per hx but not on any inhaler therapy, former tobacco user but quit 1992 CXR with patchy left basilar infiltrate; IS No signs or symptoms of pneumonia History of DM2 Noted per hx, no a1c or medications BG normal on admit 86 A1c 5.7 Disposition Estimated Discharge Date: 01/13/23 Discharge Location: home Outpatient Testing: Quality Measures DVT Prophylaxis: lovenox Galloway Catheter: absent Code Status Full Code; code status verified on 01/10/2023 with patient (capacity intact) Primary Contact Information Subjective No new complaints. Was bradycardic less than 30 last night. Was woken up and did not have any symptoms Objective BP (!) 126/59 (BP Location: Left arm, Patient Position: Lying) Pulse 62 Temp 97.5 F (36.4 C) (Oral) Resp (!) 10 Ht 5' 9 Wt 87.2 kg (192 lb 3.2 oz) Comment: standing wt SpO2 95% BMI 28.38 kg/m Physical Examination General Appearance: alert; well appearing; in no acute distress HEENT: Head- normocephalic; Eyes- EOMI, sclera anicteric; Throat- mucous membranes moist Cardiovascular: irregular rate and rhythm; normal S1, S2; no murmurs, rubs, clicks or gallops; peripheral edema absent Respiratory: lungs clear to auscultation; without wheezes, rales or rhonchi; on room air Abdomen: soft, non-tender, non-distended Neurological: oriented x 3; normal speech; no focal findings or movement disorder noted Musculoskeletal: no significant deformity or tenderness to palpation Skin: normal coloration Psych: normal mood and affect Cardiology Progress Note Assessment/Plan: Cardiovascular and Mediastinum Coronary artery disease involving [place] heart Overview Prior PCI to LAD and RCA around 8-9 years ago. Prior echo showed EF 60% in 2016. SPECT in 2016 showed perfusion changes consistent with prior KS in portions of basal inferoseptal and mid to distal inferior apical/lateral segments. Assessment & Plan Troponins negative. Patient denies any active chest pain at this time. Stress negative * AV block Overview Per telemetry review noted second-degree type I and possible 2-1 block. No complete heart block noted. Assessment & Plan No urgent indication for pacing. Stress test 01/10 without ischemia. Echo 01/10 with preserved EF, no valvular abnormalities. Plan is for pacemaker Friday. Subjective: Mr. Penny denies chest pain Objective: Vital signs in last 24 hours: Temp: [98.1 F (36.7 C)-98.2 F (36.8 C)] 98.1 F (36.7 C) Heart Rate: [49-74] 67 Resp: [12-20] 13 BP: (139-163)/(60-72) 163/71 Intake/Output last 3 shifts: I/O last 3 completed shifts: In: 2646.3 [P.O.:350; I.V.:2226.3; IV Piggyback:70] Out: 2350 [Urine:2350] Intake/Output this shift: No intake/output data recorded. Review of Systems: All systems were reviewed and otherwise negative except for that noted above. Physical Exam: Neck: No JVD. Heart:: Regular Rhythm. Normal Intensity S1 and S2. Lungs: Clear to auscultation. Good air movement. No crackles noted. Extremities: Extremities are warm. No peripheral edema. Adequate peripheral pulses. Otherwise alert and oriented X3 in no acute distress. Head is normocephalic. No epistaxis noted. Abdomen is soft, nontender without any masses noted. No significant muscular atrophy. Normal skin turgor. Telemetry: Normal sinus rhythm. and Second degree block noted. Cardiographics: I independently reviewed and noted above. Imaging: Reviewed independently and noted above. Lab Review Results from last 7 days Lab Units 01/09/23 2110 01/09/23 1736 TROPONIN T ng/L 17 18 Results from last 7 days Lab Units 01/10/23 0445 SODIUM mmol/L 142 POTASSIUM mmol/L 3.7 CHLORIDE mmol/L 108 BUN mg/dL 12 CREATININE mg/dL 0.94 GLUCOSE mg/dL 102* CALCIUM mg/dL 9.4 Results from last 7 days Lab Units 01/09/23 1736 NT PRO BNP pg/mL 375* Results from last 7 days Lab Units 01/10/23 0445 WBC K/mcL 6.27 HGB g/dL 13.4* HCT % 39.7* PLT K/mcL 184 Results from last 7 days Lab Units 01/09/23 1736 TSH mcIU/mL 2.63 [facility] [place] PROGRESS NOTE Assessment and Plan 77 y.o. male patient of Jada Peters MD with history of CAD, DM2 presented to [facility] via transfer from [facility] for symptoms of chest pain, sob and noted AV block. Symptomatic AV Block Presented to OSH with chest pain, dyspnea and noted to AV block Cardiology consulted EKG with Type I second degree AV block Stress test 01/10 no ischemia Echo with preserved EF but no valvular abnormalities Plan for pacemaker on Friday CAD Prior PCI to LAD and RCA around 8-9 years ago No chest pain; negative Troponin Continue statin; ASA; Plavix HTN Pt hypertensive on arrival, likely from missed meds Continue norvasc, losartan Hold lopressor w bradycardia COPD Noted per hx but not on any inhaler therapy, former tobacco user but quit 1992 CXR with patchy left basilar infiltrate; IS History of DM2 Noted per hx, no a1c or medications BG normal on admit 86 A1c 5.7 Disposition Estimated Discharge Date: 01/14/23 Discharge Location: home Outpatient Testing: Quality Measures DVT Prophylaxis: lovenox Galloway Catheter: absent Code Status Full Code; code status verified on 01/10/2023 with patient (capacity intact) Primary Contact Information Subjective No new complaints. Discussed plan of care Objective BP (!) 163/71 (BP Location: Left arm, Patient Position: Lying) Pulse 67 Temp 98.1 F (36.7 C) (Oral) Resp 13 Ht 5' 9 Wt 87.2 kg (192 lb 3.2 oz) Comment: standing wt SpO2 95% BMI 28.38 kg/m Physical Examination General Appearance: alert; well appearing; in no acute distress HEENT: Head- normocephalic; Eyes- EOMI, sclera anicteric; Throat- mucous membranes moist Cardiovascular: irregular rate and rhythm; normal S1, S2; no murmurs, rubs, clicks or gallops; peripheral edema absent Respiratory: lungs clear to auscultation; without wheezes, rales or rhonchi; on room air Abdomen: soft, non-tender, non-distended Neurological: oriented x 3; normal speech; no focal findings or movement disorder noted Musculoskeletal: no significant deformity or tenderness to palpation Skin: normal coloration Psych: normal mood and affect [facility] [place] PROGRESS NOTE Assessment and Plan 77 y.o. male patient of Jada Peters MD with history of CAD, DM2 presented to [facility] via transfer from [facility] for symptoms of chest pain, sob and noted AV block. AV Block EKG reviewed from [facility], appears 2nd degree v 3rd degree Uncertain etiology; concern would be for cardiac ischemia given cad hx, does not appear to have any viral illness, not volume overloaded, NT Pro-BNP 375 appears only mildly elevated to suggest cmp QTC is prolonged Will hold lopressor Monitor on telemetry, replace any electrolytes Echo ordered Stress test pending Cardio following - No urgent indication for pacing at this time CAD With hx of multiple KS and stenting placement Pt on dapt will continue plavix if going to need ppm urgently 1 day hold would not be full washout Continue statin; ASA; Plavix HTN Pt hypertensive on arrival, likely from missed meds Continue norvasc, losartan Hold lopressor w bradycardia COPD Noted per hx but not on any inhaler therapy, former tobacco user but quit 1992 CXR with patchy left basilar infiltrate; IS Questionable DM2 Noted per hx, no a1c or medications BG normal on admit 86 Checking A1C Disposition Estimated Discharge Date: pending cardio s/o Discharge Location: home Outpatient Testing: Quality Measures DVT Prophylaxis: lovenox Galloway Catheter: absent Code Status Full Code; code status verified on 01/10/2023 with patient (capacity intact) Primary Contact Information Subjective Doing well - no complaints Objective BP (!) 145/73 (BP Location: Right arm, Patient Position: Lying) Pulse 64 Temp 97.6 F (36.4 C) (Oral) Resp 17 Ht 5' 9 Wt 87.2 kg (192 lb 3.2 oz) Comment: standing wt SpO2 97% BMI 28.38 kg/m Physical Examination General Appearance: alert; well appearing; in no acute distress HEENT: Head- normocephalic; Eyes- EOMI, sclera anicteric; Throat- mucous membranes moist Cardiovascular: irregular rate and rhythm; normal S1, S2; no murmurs, rubs, clicks or gallops; peripheral edema absent Respiratory: lungs clear to auscultation; without wheezes, rales or rhonchi; on room air Abdomen: soft, non-tender, non-distended Neurological: oriented x 3; normal speech; no focal findings or movement disorder noted Musculoskeletal: no significant deformity or tenderness to palpation Skin: normal coloration Psych: normal mood and affect documented in this encounter [facility] 01-14-2023 Note Formatting of this n ote might be different from the original. Problem: Actual or potential alteration in health Goal: Absence of healthcare acquired conditions Outcome: Partially Met Goal: Knowledge of Interdisciplinary Plan of Care Outcome: Partially Met Goal: Knowledge of Enviroment Outcome: Partially Met Problem: Tissue Perfusion - Cardiopulmonary, Altered Goal: Circulatory function within specified parameters Outcome: Partially Met Problem: Pain Goal: Manage acute pain Outcome: Partially Met Goal: Manage chronic pain Outcome: Partially Met Goal: Reduced pain sensation Outcome: Partially Met Goal: Achievement of comfort function goal Outcome: Partially Met [facility] 01-14-2023 Miscellaneous Notes Problem: Actual or potential alteration in health Goal: Absence of healthcare acquired conditions Outcome: Partially Met Goal: Knowledge of Interdisciplinary Plan of Care Outcome: Partially Met Goal: Knowledge of Enviroment Outcome: Partially Met Problem: Tissue Perfusion - Cardiopulmonary, Altered Goal: Circulatory function within specified parameters Outcome: Partially Met Problem: Pain Goal: Manage acute pain Outcome: Partially Met Goal: Manage chronic pain Outcome: Partially Met Goal: Reduced pain sensation Outcome: Partially Met Goal: Achievement of comfort function goal Outcome: Partially Met Problem: Actual or potential alteration in health Goal: Absence of healthcare acquired conditions Outcome: Partially Met Goal: Knowledge of Interdisciplinary Plan of Care Outcome: Partially Met Goal: Knowledge of Enviroment Outcome: Partially Met Problem: Tissue Perfusion - Cardiopulmonary, Altered Goal: Circulatory function within specified parameters Outcome: Partially Met Problem: Pain Goal: Manage acute pain Outcome: Partially Met Goal: Manage chronic pain Outcome: Partially Met Goal: Reduced pain sensation Outcome: Partially Met Goal: Achievement of comfort function goal Outcome: Partially Met Problem: Actual or potential alteration in health Goal: Absence of healthcare acquired conditions Outcome: Partially Met Goal: Knowledge of Interdisciplinary Plan of Care Outcome: Partially Met Goal: Knowledge of Enviroment Outcome: Partially Met Problem: Tissue Perfusion - Cardiopulmonary, Altered Goal: Circulatory function within specified parameters Outcome: Partially Met Problem: Pain Goal: Manage acute pain Outcome: Partially Met Goal: Manage chronic pain Outcome: Partially Met Goal: Reduced pain sensation Outcome: Partially Met Goal: Achievement of comfort function goal Outcome: Partially Met OSH ekg reviewed 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 Junctional escape beats noted. No CHB identified. Associated Problem(s): Coronary artery disease involving [place] heart Troponins negative. Patient denies any active chest pain at this time. Stress negative Associated Problem(s): AV block No urgent indication for pacing. Stress test 01/10 without ischemia. Echo 01/10 with preserved EF, no valvular abnormalities. Plan is for pacemaker tomorrow documented in this encounter [facility] 01-13-2023 Note Table formatting fro m the original result was not included. Additional Procedures Performed: Pacemaker Dual chamber insertion. LBB pacemaker Indications/Pre-Op Diagnosis: Bradycardia and AV Block and Patient life expectancy greater than/equal to 1 year. Conclusions / Diagnosis: Successful PPM implant dual chamber.. Successful LBBP Recommendations: wound care . Comments: Informed consent was obtained. Risks of the procedure have been previously reviewed, and include, but not limited to: , KS, bleeding, infection, nerve, vessel, cardiac injury, pneumothorax, DVT/embolism, stroke, TIA, perforation, heart failure, tamponade, effusion, lead dislodgement, allergic reaction to medication, sedation risks, changes in lead parameters requiring lead revision, and long-term risks, including infection risk, device advisory, lead fracture, pacing induced cardiomyopathy, and other potential and unforeseeable risks. Knowing these risks, and that alternatives to the procedure were available, including doing nothing, the patient chose to undergo the procedure. All questions were addressed prior to signing the consent. As such, the patient was brought to the Electrophysiology Laboratory in the fasting state, having received antibiotic prophylaxis. The left chest and neck were prepped and draped in the usual sterile fashion. The skin and subcutaneous tissue of the left chest was anesthetized with 1% lidocaine. An incision was made inferior to the left clavicle with a scalpel. Using Bovie, sharp and blunt dissection, the plane of incision was extended through the subcutaneous tissue until the pectoral fascia was visualized. A pocket was then created to accommodate the pulse generator. Using the extrathoracic approach with a micropuncture kit and vascular ultrasound, venous access was obtained twice and two guidewires were placed and fluoroscopically advanced into the inferior vena cava. Two peel-away sheaths were inserted into the vein over the guidewires. A delivery sheath was placed over a wire near the tricuspid valve and a ventriculogram was performed to identify the TV summit. The lead was then passed to the tip of the sheath to record intracardiac electrograms. The sheath was advanced 15-20mm into the RV from the TV summit. The lead was advanced a few turns and electricals were checked. The lead continued to be rotated and advanced until the paced QRS in lead V1 took a RBBB pattern. The stim to peak QRS was <85ms. Lead parameters were satisfactory with left bundle branch capture. The delivery sheath was slit and removed, and the lead was tied down. Lead parameters were again checked, and were satisfactory. Of note, at higher output, the QRS is wider, with the same stim to peak QRS as to when the output is lower, and the QRS is more narrow. Next the atrial lead was positioned in the right atrial appendage under fluoroscopic guidance using preformed stylets. Atrial lead impedance, electrogram amplitude, and pacing threshold were measured and found to be satisfactory. Next, high output pacing was performed to ensure no diaphragmatic capture and none was noted. The lead was then tied down to the prepectoral fascia with two ties. The leads were then connected to the pulse generator, ensuring that the lead tip was advanced beyond the setscrew site and a tug test confirmed secure placement. After sponge count confirmation and hemostatic confirmation, the leads and pulse generator were coiled and placed into the pocket. The pulse generator was tied down with a silk suture. The pocket was copiously irrigated with antibiotic solution and hemostasis obtained. An antibiotic pouch was utilized. Fluoroscopy confirmed adequate lead and pulse generator position. The pocket was then closed with absorbable suture. The wound was dressed with Steristrips and the left arm was placed in a sling. Complications: No immediate complications. Implants Pacemaker Pacer [id number] Danuta Connors - [id number] - Implanted Inventory item: PACER W1DR01 DANUTA CONNORS Model/Cat number: [id number] Serial number: [id number] Company Laundry Worker: Audyssey Device identifier: [id number] Device identifier type: GS1 Implant Date: 01/13/2023 GUDID Information Request status Successful Brand name: Danuta?? JUANJO BarnesAlklaus?? Version/Model: W1DR01 Company name: [email or web address], [employer]. MRI safety info as of 01/13/23: MR Conditional Contains dry or latex rubber: No GMDN P.T. name: Dual-chamber implantable pacemaker, rate-responsive As of 01/13/2023 Status: Implanted Antibiotic Pouch Envelope Anti-Bacterial Aigis/Tyrx Pacer Resorbable Mesh - [id number] - Implanted Inventory item: ENVELOPE ANTI-BACTERIAL AIGIS/TYRX PACER RESORBABLE MESH Model/Cat number: [id number] Company Laundry Worker: Audyssey Lot number: [id number] Device identifier: [id number] Device identifier type: GS1 GUDID Information Request status (more content not included)... [facility] 01-13-2023 Note Table formatting fro m the original result was not included. Additional Procedures Performed: Pacemaker Dual chamber insertion. LBB pacemaker Indications/Pre-Op Diagnosis: Bradycardia and AV Block and Patient life expectancy greater than/equal to 1 year. Conclusions / Diagnosis: Successful PPM implant dual chamber.. Successful LBBP Recommendations: wound care . Comments: Informed consent was obtained. Risks of the procedure have been previously reviewed, and include, but not limited to: , KS, bleeding, infection, nerve, vessel, cardiac injury, pneumothorax, DVT/embolism, stroke, TIA, perforation, heart failure, tamponade, effusion, lead dislodgement, allergic reaction to medication, sedation risks, changes in lead parameters requiring lead revision, and long-term risks, including infection risk, device advisory, lead fracture, pacing induced cardiomyopathy, and other potential and unforeseeable risks. Knowing these risks, and that alternatives to the procedure were available, including doing nothing, the patient chose to undergo the procedure. All questions were addressed prior to signing the consent. As such, the patient was brought to the Electrophysiology Laboratory in the fasting state, having received antibiotic prophylaxis. The left chest and neck were prepped and draped in the usual sterile fashion. The skin and subcutaneous tissue of the left chest was anesthetized with 1% lidocaine. An incision was made inferior to the left clavicle with a scalpel. Using Bovie, sharp and blunt dissection, the plane of incision was extended through the subcutaneous tissue until the pectoral fascia was visualized. A pocket was then created to accommodate the pulse generator. Using the extrathoracic approach with a micropuncture kit and vascular ultrasound, venous access was obtained twice and two guidewires were placed and fluoroscopically advanced into the inferior vena cava. Two peel-away sheaths were inserted into the vein over the guidewires. A delivery sheath was placed over a wire near the tricuspid valve and a ventriculogram was performed to identify the TV summit. The lead was then passed to the tip of the sheath to record intracardiac electrograms. The sheath was advanced 15-20mm into the RV from the TV summit. The lead was advanced a few turns and electricals were checked. The lead continued to be rotated and advanced until the paced QRS in lead V1 took a RBBB pattern. The stim to peak QRS was <85ms. Lead parameters were satisfactory with left bundle branch capture. The delivery sheath was slit and removed, and the lead was tied down. Lead parameters were again checked, and were satisfactory. Of note, at higher output, the QRS is wider, with the same stim to peak QRS as to when the output is lower, and the QRS is more narrow. Next the atrial lead was positioned in the right atrial appendage under fluoroscopic guidance using preformed stylets. Atrial lead impedance, electrogram amplitude, and pacing threshold were measured and found to be satisfactory. Next, high output pacing was performed to ensure no diaphragmatic capture and none was noted. The lead was then tied down to the prepectoral fascia with two ties. The leads were then connected to the pulse generator, ensuring that the lead tip was advanced beyond the setscrew site and a tug test confirmed secure placement. After sponge count confirmation and hemostatic confirmation, the leads and pulse generator were coiled and placed into the pocket. The pulse generator was tied down with a silk suture. The pocket was copiously irrigated with antibiotic solution and hemostasis obtained. An antibiotic pouch was utilized. Fluoroscopy confirmed adequate lead and pulse generator position. The pocket was then closed with absorbable suture. The wound was dressed with Steristrips and the left arm was placed in a sling. Complications: No immediate complications. Implants Pacemaker Pacer W1dr01 Danuta Connors - [id number] - Implanted Inventory item: PACER W1DR01 DANUTA CONNORS Model/Cat number: [id number] Serial number: [id number] Company Laundry Worker: Audyssey Device identifier: [id number] Device identifier type: GS1 Implant Date: 01/13/2023 GUDID Information Request status Successful Brand name: Danuta CONNORS SureAlan Version/Model: W1DR01 Company name: [email or web address]. MRI safety info as of 01/13/23: MR Conditional Contains dry or latex rubber: No GMDN P.T. name: Dual-chamber implantable pacemaker, rate-responsive As of 01/13/2023 Status: Implanted Antibiotic Pouch Envelope Anti-Bacterial Aigis/Tyrx Pacer Resorbable Mesh - [id number] - Implanted Inventory item: ENVELOPE ANTI-BACTERIAL AIGIS/TYRX PACER RESORBABLE MESH Model/Cat number: [id number] Company Laundry Worker: [email or web address] Lot number: (more content not included)... [facility] 01-13-2023 Hospital Discharge instructions Linda Schofield CNP - 01/13/2023 12:07 PM EDT Images from the original note were not included. Pacemaker Placement: What to Expect at Home Your Recovery Pacemaker placement is surgery to put a pacemaker in your chest. A pacemaker is a small, battery-powered device that sends electrical signals to the heart to keep the heartbeat steady. Thin wires, called leads, carry the signals from the pacemaker to the heart. A pacemaker can prevent or reduce dizziness, fainting, and shortness of breath caused by a slow or unsteady heartbeat. Your chest may be sore where the doctor made the cut (incision) and put in the pacemaker. You also may have a bruise and mild swelling. These symptoms usually get better in 1 to 2 weeks. You may feel a hard ridge along the incision. This usually gets softer in the months after surgery. You may be able to see or feel the outline of the pacemaker under your skin. You will probably be able to go back to work or your usual routine 1 to 2 weeks after surgery. Pacemaker batteries usually last 8 to 13 years. Your doctor will talk to you about how often you will need to have your pacemaker checked. We like you to have a wound check and device check ~10 days after implant. This care sheet gives you a general idea about how long it will take for you to recover. But each person recovers at a different pace. Follow the steps below to get better as quickly as possible. Incision check in ~10 days. Follow-up with the Device Clinic per protocol. We check your device at the wound check and then you will need another device check in 3 months. After the 3 month month check, you should have a remote monitor at home that will communicate with the device office every 3 months with your device information. A yearly in-clinic check on your device advised if we receive remote transmissions every 3 months. Please ask the device staff regarding follow up, if you have any further questions. *Carry the pacemaker card with you. If you have questions, refer to the booklet or check with the field artillery operations specialist. Call the doctor (who put the pacemaker in) if: -You have chills, a fever over 101 F, swelling in that arm, increased pain, swelling, warmth, redness or drainage at the incision -A weight gain of 3 pounds in 2 days or 5 pounds in 1 week -Difficulty breathing, especially at rest or when lying flat in bed -Waking up breathless at night -Frequent, dry, hacking cough, especially when lying down -Increased tiredness -Swollen feet, ankles, legs and/or abdomen When you have a pacemaker, it is important to be mindful of certain electrical devices. You will need to stay away from things with strong magnetic and electrical cha such as an MRI machine (unless your pacemaker is safe for an MRI), welding equipment, and power generators. You can use a cell phone, but keep it at least 6 inches away from your pacemaker. You can safely use most household and office electronics such as kitchen appliances, electric power tools, and computers. See below: -Grounded electrical equipment such as household appliances will not affect your pacemaker. -You should avoid: -Magnets or magnetic wands used by airports -Getting close to store security devices, industrial equipment -An MRI (you may have x-rays or a CAT scan) -Working on a running car motor -Using a cordless or cell phone on the same side as the pacemaker. Use the opposite ear. If you have questions regarding if other equipment is safe, please call your device company to inquire. How can you care for yourself at home? Driving No driving until after you are seen in the office for your wound check in 10 days. Activity Rest when you feel tired. Getting enough sleep will help you recover. Try to walk each day. Start by walking a little more than you did the day before. Bit by bit, increase the amount you walk. Walking boosts blood flow and helps prevent pneumonia and constipation. For 1 to 3 weeks: Weigh yourself every morning at the same time and record it. Avoid repetitive activity with extremes of motion until your doctor okays it. DO NOT lift anything over 10 pounds with affected arm DO NOT raise the elbow above the shoulder, or stretch the arm outward or upward DO NOT bear all of your weight on that arm. DO NOT wear the sling at home. For 4 to 6 weeks: DO NOT lift anything over 25 lbs with affected arm Avoid activities that strain your chest or upper arm muscles. This includes pushing a stepdown nurse or vacuum, mopping floors, swimming, or swinging a golf club or tennis racquet. Do not raise your arm, on the side of your body where the pacemaker is located, above your shoulder. Avoid strenuous activities, such as bicycle riding, jogging, weight lifting, or heavy aerobic exercise. Avoid lifting anything that would make you strain. This may include heavy grocery bags and milk containers, a heavy briefcase or backpack, cat litter or dog food bags, or a child. You will probably need to take about 1 to 2 weeks off from work. It depends on the type of work you do and how you feel. Incision care You may have tenderness at the site for a few weeks Please leave dressing in place for 3-4 days. Do not Bathe or get incision wet for 7 days. Do not pull the strips off. The tape-like strips will be removed in the doctor s office. The edges may curl and fall off. No powders or lotions on the incision. Do not swim, submurge in water, or use a hot tub until the incision is completely healed. Do not hit or rub the site. Keep the area clean and dry. Follow-up care is a lorenz part of your treatment and safety. Be sure to make and go to all appointments, and call your doctor if you are having problems. It's also a good idea to know your test results and keep a list of the medicines you take. When should you call for help? Call 911 anytime you think you may need emergency care. For example, call if: You passed out (lost consciousness). You have severe trouble breathing. You have sudden chest pain and shortness of breath, or you cough up blood. You have symptoms of a heart attack. These may include: Chest pain or pressure, or a strange feeling in the chest.. Sweating. Shortness of breath. Nausea or vomiting. Pain, pressure, or a strange feeling in the back, neck, jaw, or upper belly or in one or both shoulders or arms. Lightheadedness or sudden weakness. A fast or irregular heartbeat. After you call 911, the cut off operator scorer may tell you to chew 1 adult-strength or 2 to 4 low-dose aspirin. Wait for an ambulance. Do not try to drive yourself. You have signs of a stroke. These may include: Sudden numbness, paralysis, or weakness in your face, arm, or leg, especially on only one side of your body. New problems with walking or balance. Sudden vision changes. New problems speaking or understanding simple statements, or feeling confused. A sudden, severe headache that is different from past headaches. Call your doctor now or seek immediate medical care if: Your heartbeat feels very fast or slow, skips beats, or flutters. You are dizzy or lightheaded, or you feel like you may faint. You have new or increased shortness of breath. You have pain that does not get better after you take pain medicine. You have loose stitches, or your incision comes open. Bright red blood has soaked through the bandage over your incision. You have signs of infection, such as: Increased pain, swelling, warmth, or redness. Red streaks leading from the incision. Pus draining from the incision. A fever. You have signs of a blood clot, such as: Pain in your calf, back of the knee, thigh, or groin. Redness and swelling in your leg or groin. Watch closely for changes in your health, and be sure to contact your doctor if: You have any problems with your pacemaker. Where can you learn more? Log into your personal health record on [email or web address] and enter G550 in the Education box to learn more about Pacemaker Placement: What to Expect at Home. Current as of: October 06, 2013 Content Version: 10.3 7791-9726 [employer]. Care instructions adapted under license by your healthcare professional. If you have questions about a medical condition or this instruction, always ask your healthcare professional. [employer] disclaims any warranty or liability for your use of this information. documented in this encounter [facility] 01-11-2023 Note Formatting of this n ote might be different from the original. Problem: Actual or potential alteration in health Goal: Absence of healthcare acquired conditions Outcome: Partially Met Goal: Knowledge of Interdisciplinary Plan of Care Outcome: Partially Met Goal: Knowledge of Enviroment Outcome: Partially Met Problem: Tissue Perfusion - Cardiopulmonary, Altered Goal: Circulatory function within specified parameters Outcome: Partially Met Problem: Pain Goal: Manage acute pain Outcome: Partially Met Goal: Manage chronic pain Outcome: Partially Met Goal: Reduced pain sensation Outcome: Partially Met Goal: Achievement of comfort function goal Outcome: Partially Met [facility] 01-10-2023 Note Formatting of this n ote might be different from the original. Problem: Actual or potential alteration in health Goal: Absence of healthcare acquired conditions Outcome: Partially Met Goal: Knowledge of Interdisciplinary Plan of Care Outcome: Partially Met Goal: Knowledge of Enviroment Outcome: Partially Met Problem: Tissue Perfusion - Cardiopulmonary, Altered Goal: Circulatory function within specified parameters Outcome: Partially Met Problem: Pain Goal: Manage acute pain Outcome: Partially Met Goal: Manage chronic pain Outcome: Partially Met Goal: Reduced pain sensation Outcome: Partially Met Goal: Achievement of comfort function goal Outcome: Partially Met [facility] 01-10-2023 Note Formatting of this n ote might be different from the original. 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 Junctional escape beats noted. No CHB identified. [facility] 01-10-2023 Evaluation + Plan note Associated Problem(s): Coronary artery disease involving [place] heart Troponins negative. Patient denies any active chest pain at this time. Stress negative [facility] 01-10-2023 Evaluation + Plan note Associated Problem(s): AV block No urgent indication for pacing. Stress test 01/10 without ischemia. Echo 01/10 with preserved EF, no valvular abnormalities. Plan is for pacemaker tomorrow [facility] 01-10-2023 Consult note Associated Order (s): IP CONSULT TO CARDIOLOGY Electrophysiology Inpatient Consult Heart & Vascular [facility] 01/10/2023 Linda Schofield CNP [facility] Patient: Tabatha Penny Date of : 1945 (77 y.o.) Referring Provider: No ref. provider found PCP: Jada Peters MD Assessment/Plan: * AV block Assessment & Plan Per telemetry review noted second-degree type I and possible 2-1 block. No complete heart block noted. Unable to find EKG from [facility]. Recommend stress test in the setting of new onset chest pain over the past few weeks. His echo is pending. No urgent indication for pacing. Will make final recommendations pending stress/echo results. Holding home metoprolol. Coronary artery disease involving [place] heart Overview Prior PCI to LAD and RCA around 8-9 years ago. Prior echo showed EF 60% in 2016. SPECT in 2016 showed perfusion changes consistent with prior KS in portions of basal inferoseptal and mid to distal inferior apical/lateral segments. Assessment & Plan Troponins negative. Patient denies any active chest pain at this time. Ordered stressed test. Subjective Reason for Consultation: AV block History of Present Illness: Tabatha Penny is a 77 y.o. male with past medical history of CAD s/p PCI, COPD, type 2 diabetes, former smoker presented to [facility] for complaints of chest pain and shortness of breath. According to [facility] patient was in an second degree or third-degree AV block and was transferred to [place] for further evaluation. Says he has noticed intermittent chest pain and shortness of breath over the past few weeks. He states his chest pain shortness of breath comes with activity when he is outside, and both resolve at rest. He states getting on the treadmill for 8 minutes and getting on a stationary bike 3 times a week and denies any chest pain or shortness of breath with these activities. His troponin is 18 and 17 and he denies any chest pain at this time. He has a past history of heart attack in coronary stents. He says this was more than 5 to 6 years ago and has not had any imaging in the last few years. Did review a note from Dr. Mancera in 2016 stating the proximal LAD stent was patent, RCA had mild stenosis, and distal stent had focal stenosis. Independently reviewed telemetry that shows second-degree type I block and 2-1 block. Unable to review EKG from outlying hospital. His echocardiogram is pending. Independently reviewed labs showing a K of 3.7, creatinine 0.94 mag 2.0, troponin 18 and 17, TSH 2.63, NT proBNP 375. Reviewed EKG from this hospitalization that shows sinus rhythm with first-degree block, and prior EKG in 2013 showing sinus rhythm with first-degree block. ECG 12 Lead Final Result by Cali Hernandez DO (01/09/[id number]) Echocardiogram complete w contrast by Merly Elise RDCS (01/09/[id number]) Review of Systems: Review of Systems Constitutional: Negative. Respiratory: Negative. Cardiovascular: Negative. Skin: Negative. Neurological: Negative. Psychiatric/Behavioral: Negative. 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 No pertinent family history. Social History Tobacco Use Smoking Status Former Types: Cigarettes Quit date: 01/15/1993 Years since quittin.0 Smokeless Tobacco Not on file Additional History Comments: None Allergies: Penicillins Current Facility-Administered Medications Medication Dose Route Frequency Provider Last Rate Last Admin acetaminophen (TYLENOL) tablet 650 mg 650 mg Oral Q4H PRN Edward Temple DO albuterol inhaler 2 puff 2 puff Inhalation Once in imaging Linda Schofield, HUMAIRA amLODIPine (NORVASC) tablet 10 mg 10 mg Oral Daily Edward Temple DO 10 mg at 01/09/232054 aspirin EC tablet 81 mg 81 mg Oral Daily Edward Temple DO 81 mg at 01/09/232051 atorvastatin (LIPITOR) tablet 40 mg 40 mg Oral Nightly Edward Temple DO 40 mg at 01/09/232051 clopidogreL (PLAVIX) tablet 75 mg 75 mg Oral Daily Edward Temple DO losartan (COZAAR) tablet 50 mg 50 mg Oral Daily Edward Temple DO melatonin tablet 3 mg 3 mg Oral Nightly PRN Edward Temple DO omega-3 acid ethyl esters (LOVAZA) capsule 2 g 2 g Oral Daily Edward Temple DO pantoprazole (PROTONIX) EC tablet 40 mg 40 mg Oral Daily Edward Temple DO perflutren lipid microspheres (DEFINITY) 0.143 mg/mL solution 0-10 mL of mixture 0-10 mL of mixture Intravenous Once in imaging Parail, Alivia Stafford MD 3 mL of mixture at 01/09/231950 senna (SENOKOT) tablet 8.6 mg 1 tablet Oral BID PRN Edward Temple DO sodium chloride (PF) (NS) flush 5 mL 5 mL Intravenous PRN Cali Hernandez DO And sodium chloride 0.9% (NS) 0-150 mL/hr Intravenous PRN Cali Hernandez DO sodium chloride (PF) (NS) flush 5 mL 5 mL Intravenous PRN Edward Temple DO And sodium chloride (PF) (NS) flush 5 mL 5 mL Intravenous Q8H DESIREE Edward Temple DO 5 mL at 01/09/232106 And sodium chloride 0.9% (NS) 0-150 mL/hr Intravenous PRN Edward Temple DO sodium chloride 0.9% (NS) 75 mL/hr Intravenous Continuous Edward Temple DO 75 mL/hr at 01/10/23 0504 Rate Verify at 01/10/23 0504 vitamin E capsule 200 Units 200 Units Oral Daily Edward Temple DO Objective: Physical Examination: BP (!) 145/73 (BP Location: Right arm, Patient Position: Lying) Pulse 64 Temp 97.6 F (36.4 C) (Oral) Resp 17 Ht 5' 9 Wt 87.2 kg (192 lb 3.2 oz) Comment: standing wt SpO2 97% BMI 28.38 kg/m Physical Exam Vitals reviewed. Cardiovascular: Rate and Rhythm: Normal rate. Rhythm irregular. Heart sounds: Normal heart sounds. Pulmonary: Effort: Pulmonary effort is normal. Breath sounds: Normal breath sounds. Musculoskeletal: Right lower leg: No edema. Left lower leg: No edema. Skin: General: Skin is warm and dry. Neurological: General: No focal deficit present. Mental Status: He is alert and oriented to person, place, and time. Psychiatric: Mood and Affect: Mood normal. Behavior: Behavior normal. No results found for: CHOL , LDLCALC , LDLDIRECT , TRIG , HDL Serum creatinine: 0.94 mg/dL 01/10/23 0445 Estimated creatinine clearance: 66.9 mL/min Associated attestation - Ashre Gaitan MD - 01/10/2023 10:50 AM EDT I personally interviewed the patient, performed a review of systems, and examined the patient. I discussed the plan in terms of diagnostics and treatment. The patient notes shortness of breath for the past week. He states his made him come to the hospital. He also has had chest pain upon exertion at times. Although this is not completely consistent as he states he does workout on a treadmill at home without symptoms. He has had an echo that has not been read and is undergoing a stress test. He has a history of coronary disease with multiple coronary artery stents. He used to smoke, but stopped in the 90s after his first heart attack. He takes aspirin and Plavix. He is not on a beta-tami. His labs are remarkable for normal potassium, creatinine, magnesium, and troponin. His BNP is 375. His TSH is within normal limits. He is completely asymptomatic as I am discussing his case with him on his hospital bed. I independently reviewed his telemetry noting mostly type I Mobitz second-degree AV block as well as occasional 2-1 AV block. There is no evidence of high-grade AV block or prolonged pauses. I independently reviewed his EKG from yesterday noting a first-degree AV block and a right bundle branch block with left anterior fascicular block. I independently reviewed his EKG from August 2013 showing sinus bradycardia with a first-degree AV block and a right bundle branch block pattern. The patient was transferred from an outside hospital with report of complete heart block. Plan: Report of complete heart block: We will obtain the outside hospital EKG. We have not been able to identify complete heart block during his admission here at [facility]. The patient does have evidence of prior conduction system disease noted in 2013, so progression of conduction disease is the most likely cause of his bradycardia. Additionally, he has an echo and stress test pending. Once we are able to obtain his outside hospital records, echo results, and the results of stress test, we will consider a permanent pacemaker, especially if complete heart block was noted. The timing of this pacemaker will be based on lab availability and staff availability. Coronary disease: Continue antiplatelet medications. Stress test is pending. Of note, the patient was able to exert himself while working out at home without symptoms. His troponins are negative. His EKG does not show any ST changes consistent with ischemia. [facility] 01-10-2023 Consult note Associated Order (s): IP CONSULT TO CARDIOLOGY Electrophysiology Inpatient Consult Heart & Vascular [facility] 01/10/2023 Linda Schofield [facility] Patient: Tabatha Penny Date of : 1945 (77 y.o.) Referring Provider: No ref. provider found PCP: Jada Peters MD Assessment/Plan: * AV block Assessment & Plan Per telemetry review noted second-degree type I and possible 2-1 block. No complete heart block noted. Unable to find EKG from [facility]. Recommend stress test in the setting of new onset chest pain over the past few weeks. His echo is pending. No urgent indication for pacing. Will make final recommendations pending stress/echo results. Holding home metoprolol. Coronary artery disease involving [place] heart Overview Prior PCI to LAD and RCA around 8-9 years ago. Prior echo showed EF 60% in 2016. SPECT in 2016 showed perfusion changes consistent with prior KS in portions of basal inferoseptal and mid to distal inferior apical/lateral segments. Assessment & Plan Troponins negative. Patient denies any active chest pain at this time. Ordered stressed test. Subjective Reason for Consultation: AV block History of Present Illness: Tabatha Penny is a 77 y.o. male with past medical history of CAD s/p PCI, COPD, type 2 diabetes, former smoker presented to [facility] for complaints of chest pain and shortness of breath. According to outlying hospital patient was in an second degree or third-degree AV block and was transferred to [place] for further evaluation. Says he has noticed intermittent chest pain and shortness of breath over the past few weeks. He states his chest pain shortness of breath comes with activity when he is outside, and both resolve at rest. He states getting on the treadmill for 8 minutes and getting on a stationary bike 3 times a week and denies any chest pain or shortness of breath with these activities. His troponin is 18 and 17 and he denies any chest pain at this time. He has a past history of heart attack in coronary stents. He says this was more than 5 to 6 years ago and has not had any imaging in the last few years. Did review a note from Dr. Mancera in 2015 stating the proximal LAD stent was patent, RCA had mild stenosis, and distal stent had focal stenosis. Independently reviewed telemetry that shows second-degree type I block and 2-1 block. Unable to review EKG from outlying hospital. His echocardiogram is pending. Independently reviewed labs showing a K of 3.7, creatinine 0.94 mag 2.0, troponin 18 and 17, TSH 2.63, NT proBNP 375. Reviewed EKG from this hospitalization that shows sinus rhythm with first-degree block, and prior EKG in 2013 showing sinus rhythm with first-degree block. ECG 12 Lead Final Result by Cali Hernandez DO (01/09/2023 184) Echocardiogram complete w contrast by Merly Elise RDCS (01/09/[id number]) Review of Systems: Review of Systems Constitutional: Negative. Respiratory: Negative. Cardiovascular: Negative. Skin: Negative. Neurological: Negative. Psychiatric/Behavioral: Negative. 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 No pertinent family history. Social History Tobacco Use Smoking Status Former Types: Cigarettes Quit date: 01/15/1993 Years since quittin.0 Smokeless Tobacco Not on file Additional History Comments: None Allergies: Penicillins Current Facility-Administered Medications Medication Dose Route Frequency Provider Last Rate Last Admin acetaminophen (TYLENOL) tablet 650 mg 650 mg Oral Q4H PRN Edward Temple DO albuterol inhaler 2 puff 2 puff Inhalation Once in imaging Linda Schofield CNP amLODIPine (NORVASC) tablet 10 mg 10 mg Oral Daily Edward Temple DO 10 mg at 01/09/232054 aspirin EC tablet 81 mg 81 mg Oral Daily Edward Temple DO 81 mg at 01/09/232051 atorvastatin (LIPITOR) tablet 40 mg 40 mg Oral Nightly Edward Temple DO 40 mg at 01/09/232051 clopidogreL (PLAVIX) tablet 75 mg 75 mg Oral Daily Edward Temple DO losartan (COZAAR) tablet 50 mg 50 mg Oral Daily Edward Temple DO melatonin tablet 3 mg 3 mg Oral Nightly PRN Edward Temple DO omega-3 acid ethyl esters (LOVAZA) capsule 2 g 2 g Oral Daily Edward Temple DO pantoprazole (PROTONIX) EC tablet 40 mg 40 mg Oral Daily Edward Temple DO perflutren lipid microspheres (DEFINITY) 0.143 mg/mL solution 0-10 mL of mixture 0-10 mL of mixture Intravenous Once in imaging Alivia Jose MD 3 mL of mixture at 01/09/231950 senna (SENOKOT) tablet 8.6 mg 1 tablet Oral BID PRN Edward Temple DO sodium chloride (PF) (NS) flush 5 mL 5 mL Intravenous PRN Cali Hernandez DO And sodium chloride 0.9% (NS) 0-150 mL/hr Intravenous PRN Cali Hernandez DO sodium chloride (PF) (NS) flush 5 mL 5 mL Intravenous PRN Edward Temple DO And sodium chloride (PF) (NS) flush 5 mL 5 mL Intravenous Q8H DESIREE Edward Temple DO 5 mL at 01/09/232106 And sodium chloride 0.9% (NS) 0-150 mL/hr Intravenous PRN Edward Temple DO sodium chloride 0.9% (NS) 75 mL/hr Intravenous Continuous Edward Temple DO 75 mL/hr at 01/10/23 0504 Rate Verify at 01/10/23 0504 vitamin E capsule 200 Units 200 Units Oral Daily Edward Temple DO Objective: Physical Examination: BP (!) 145/73 (BP Location: Right arm, Patient Position: Lying) Pulse 64 Temp 97.6 F (36.4 C) (Oral) Resp 17 Ht 5' 9 Wt 87.2 kg (192 lb 3.2 oz) Comment: standing wt SpO2 97% BMI 28.38 kg/m Physical Exam Vitals reviewed. Cardiovascular: Rate and Rhythm: Normal rate. Rhythm irregular. Heart sounds: Normal heart sounds. Pulmonary: Effort: Pulmonary effort is normal. Breath sounds: Normal breath sounds. Musculoskeletal: Right lower leg: No edema. Left lower leg: No edema. Skin: General: Skin is warm and dry. Neurological: General: No focal deficit present. Mental Status: He is alert and oriented to person, place, and time. Psychiatric: Mood and Affect: Mood normal. Behavior: Behavior normal. No results found for: CHOL , LDLCALC , LDLDIRECT , TRIG , HDL Serum creatinine: 0.94 mg/dL 01/10/23 0445 Estimated creatinine clearance: 66.9 mL/min Associated attestation - Asher Gaitan MD - 01/10/2023 10:50 AM EDT I personally interviewed the patient, performed a review of systems, and examined the patient. I discussed the plan in terms of diagnostics and treatment. The patient notes shortness of breath for the past week. He states his made him come to the hospital. He also has had chest pain upon exertion at times. Although this is not completely consistent as he states he does workout on a treadmill at home without symptoms. He has had an echo that has not been read and is undergoing a stress test. He has a history of coronary disease with multiple coronary artery stents. He used to smoke, but stopped in the 90s after his first heart attack. He takes aspirin and Plavix. He is not on a beta-tami. His labs are remarkable for normal potassium, creatinine, magnesium, and troponin. His BNP is 375. His TSH is within normal limits. He is completely asymptomatic as I am discussing his case with him on his hospital bed. I independently reviewed his telemetry noting mostly type I Mobitz second-degree AV block as well as occasional 2-1 AV block. There is no evidence of high-grade AV block or prolonged pauses. I independently reviewed his EKG from yesterday noting a first-degree AV block and a right bundle branch block with left anterior fascicular block. I independently reviewed his EKG from August 2013 showing sinus bradycardia with a first-degree AV block and a right bundle branch block pattern. The patient was transferred from an outside hospital with report of complete heart block. Plan: Report of complete heart block: We will obtain the outside hospital EKG. We have not been able to identify complete heart block during his admission here at [facility]. The patient does have evidence of prior conduction system disease noted in 2013, so progression of conduction disease is the most likely cause of his bradycardia. Additionally, he has an echo and stress test pending. Once we are able to obtain his outside hospital records, echo results, and the results of stress test, we will consider a permanent pacemaker, especially if complete heart block was noted. The timing of this pacemaker will be based on lab availability and staff availability. Coronary disease: Continue antiplatelet medications. Stress test is pending. Of note, the patient was able to exert himself while working out at home without symptoms. His troponins are negative. His EKG does not show any ST changes consistent with ischemia. documented in this encounter [facility] 01-09-2023 History and physical note [facility] [place] HISTORY AND PHYSICAL -- [facility] Patient Name: Tabatha Penny : 1945 MR #: [id number] Admit Date: 01/09/2023 Physicians: Jada Peters MD (Family); No ref. provider found (Referring) Tabatha Penny is a 77 y.o. male patient of Jada Peters MD with history of CAD, DM2 presented to [facility] via transfer from [facility] for symptoms of chest pain, sob and noted AV block. AV Block EKG reviewed from [facility], appears 2nd degree v 3rd degree. Uncertain etiology; concern would be for cardiac ischemia given cad hx, does not appear to have any viral illness, not volume overloaded, NT Pro-BNP 375 appears only mildly elevated to suggest cmp. QTC is prolonged Will hold lopressor Monitor on telemetry, replace any electrolytes Echo ordered Appreciate cardiology; will make NPO in case feels needs PPM No need for any atropine/external pacing CAD With hx of multiple KS and stenting placement Pt on dapt will continue plavix if going to need ppm urgently 1 day hold would not be full washout Continue statin Trop 18, will trend HTN Pt hypertensive on arrival, likely from missed meds Continue norvasc, losartan Hold lopressor w bradycardia COPD Noted per hx but not on any inhaler therapy, former tobacco user but quit 1992 CXR with patchy left basilar infiltrate; IS DM2 Noted per hx, no a1c or medications BG normal on admit 87 Residence prior to admission: house or apartment Was patient transferred from outlying hospital or ED yes -- care site [facility] Quality Measures DVT Prophylaxis: SCDs Galloway Catheter: absent Medication Reconciliation: Verified Risk variables present on admission: Cardiac Arrhythmia and Bradycardia. Please see assessment and plan for further details. Code Status Full Code; code status verified on 01/09/2023 with patient (capacity intact) Chief Complaint SOB History of Present Illness 77-year-old male with past medical history of CAD with multiple stenting, hypertension, COPD who presents to [place] from outside hospital with concern for AV block. Patient states that earlier this week he felt that he was getting more dyspneic with exertion. At baseline he is very active doing outdoor tasks without any issue however noticed feeling mildly short of breath on Friday and then on Friday he got so short of breath walking that he had to stop in his tracks and leaned forward. His came out and hearing his symptoms told him that they needed to go to the hospital. Prior to this he states he has been feeling well. No fevers or chills, abdominal pain, nausea, vomiting. He has been eating well, no diarrhea, constipation. No edema. He has felt chest pain for a few days on the left side that last 3-4min at a time non-exertional and go away spontaneously. We discussed HR/rhythm findings, plan for monitoring, echo, cards eval, discussed with spouse and daughter at bedside as well Past Medical History Past Medical History: Diagnosis Date CAD (coronary artery disease) 01/15/2016 Stent COPD (chronic obstructive pulmonary disease) (HCC) Diabetes 1.5, managed as type 2 (HCC) 01/15/2016 Hyperlipidemia 01/15/2016 Hypertension 01/15/2016 Past Surgical History Past Surgical History: Procedure Laterality Date CARDIAC CATHETERIZATION CORONARY STENT PLACEMENT JOB to LAD CORONARY STENT PLACEMENT RCA Family History History reviewed. No pertinent family history. Social History Social History Tobacco Use Smoking Status Former Types: Cigarettes Quit date: 01/15/1993 Years since quittin.0 Smokeless Tobacco Not on file Social History Substance and Sexual Activity Alcohol Use No Social History Substance and Sexual Activity Drug Use No Allergy Information I have reviewed the patient's allergies. Penicillins Home Medications Home medications were reviewed. Review Of Systems All relevant systems have been reviewed and are negative except as noted in HPI or below Physical Examination BP (!) 171/81 Pulse (!) 59 Temp 97.7 F (36.5 C) (Oral) Resp 16 SpO2 95% General Appearance: alert; well appearing; in no acute distress HEENT: Head- normocephalic; Eyes- EOMI, sclera anicteric; Throat- mucous membranes moist Cardiovascular: regular rate; mildly bradycardic; normal S1, S2; no murmurs, rubs, clicks or gallops; peripheral edema trace in ankles bilaterally Respiratory: lungs clear to auscultation; without wheezes, rales or rhonchi; on room air Abdomen: soft, non-tender, non-distended Neurological: oriented x 3; normal speech; no focal findings or movement disorder noted Musculoskeletal: no significant deformity or tenderness to palpation Skin: normal coloration Psych: normal mood and affect [employer] Work Phone: 01-09-2023 History and physical note [facility] [place] HISTORY AND PHYSICAL -- [facility] Patient Name: Tabatha Penny : 1945 MR #: [id number] Admit Date: 01/09/2023 Physicians: Jada Peters MD (Family); No ref. provider found (Referring) Tabatha Penny is a 77 y.o. male patient of Jdaa Peters MD with history of CAD, DM2 presented to [facility] via transfer from [facility] for symptoms of chest pain, sob and noted AV block. AV Block EKG reviewed from [facility], appears 2nd degree v 3rd degree. Uncertain etiology; concern would be for cardiac ischemia given cad hx, does not appear to have any viral illness, not volume overloaded, NT Pro-BNP 375 appears only mildly elevated to suggest cmp. QTC is prolonged Will hold lopressor Monitor on telemetry, replace any electrolytes Echo ordered Appreciate cardiology; will make NPO in case feels needs PPM No need for any atropine/external pacing CAD With hx of multiple KS and stenting placement Pt on dapt will continue plavix if going to need ppm urgently 1 day hold would not be full washout Continue statin Trop 18, will trend HTN Pt hypertensive on arrival, likely from missed meds Continue norvasc, losartan Hold lopressor w bradycardia COPD Noted per hx but not on any inhaler therapy, former tobacco user but quit 1992 CXR with patchy left basilar infiltrate; IS DM2 Noted per hx, no a1c or medications BG normal on admit 86 Residence prior to admission: house or apartment Was patient transferred from outlying hospital or ED yes -- care site [facility] Quality Measures DVT Prophylaxis: SCDs Galloway Catheter: absent Medication Reconciliation: Verified Risk variables present on admission: Cardiac Arrhythmia and Bradycardia. Please see assessment and plan for further details. Code Status Full Code; code status verified on 01/09/2023 with patient (capacity intact) Chief Complaint SOB History of Present Illness 77-year-old male with past medical history of CAD with multiple stenting, hypertension, COPD who presents to [place] from outside hospital with concern for AV block. Patient states that earlier this week he felt that he was getting more dyspneic with exertion. At baseline he is very active doing outdoor tasks without any issue however noticed feeling mildly short of breath on Friday and then on Friday he got so short of breath walking that he had to stop in his tracks and leaned forward. His came out and hearing his symptoms told him that they needed to go to the hospital. Prior to this he states he has been feeling well. No fevers or chills, abdominal pain, nausea, vomiting. He has been eating well, no diarrhea, constipation. No edema. He has felt chest pain for a few days on the left side that last 3-4min at a time non-exertional and go away spontaneously. We discussed HR/rhythm findings, plan for monitoring, echo, cards eval, discussed with spouse and daughter at bedside as well Past Medical History Past Medical History: Diagnosis Date CAD (coronary artery disease) 01/15/2016 Stent COPD (chronic obstructive pulmonary disease) (HCC) Diabetes 1.5, managed as type 2 ([facility]) 01/15/2016 Hyperlipidemia 01/15/2016 Hypertension 01/15/2016 Past Surgical History Past Surgical History: Procedure Laterality Date CARDIAC CATHETERIZATION CORONARY STENT PLACEMENT JOB to LAD CORONARY STENT PLACEMENT RCA Family History History reviewed. No pertinent family history. Social History Social History Tobacco Use Smoking Status Former Types: Cigarettes Quit date: 01/15/1993 Years since quittin.0 Smokeless Tobacco Not on file Social History Substance and Sexual Activity Alcohol Use No Social History Substance and Sexual Activity Drug Use No Allergy Information I have reviewed the patient's allergies. Penicillins Home Medications Home medications were reviewed. Review Of Systems All relevant systems have been reviewed and are negative except as noted in HPI or below Physical Examination BP (!) 171/81 Pulse (!) 59 Temp 97.7 F (36.5 C) (Oral) Resp 16 SpO2 95% General Appearance: alert; well appearing; in no acute distress HEENT: Head- normocephalic; Eyes- EOMI, sclera anicteric; Throat- mucous membranes moist Cardiovascular: regular rate; mildly bradycardic; normal S1, S2; no murmurs, rubs, clicks or gallops; peripheral edema trace in ankles bilaterally Respiratory: lungs clear to auscultation; without wheezes, rales or rhonchi; on room air Abdomen: soft, non-tender, non-distended Neurological: oriented x 3; normal speech; no focal findings or movement disorder noted Musculoskeletal: no significant deformity or tenderness to palpation Skin: normal coloration Psych: normal mood and affect documented in this encounter [facility] 01-09-2023 Physician Emergency department Note Associated Order(s): ECG 12 Lead ED PROVIDER NOTE [facility] EMERGENCY DEPARTMENT NAME: Tabatha Penny AGE: 77 y.o. : 1945 VISIT DATE: 01/09/2023 CSN: [id number] PCP: Jada Peters MD Chief Complaint Patient presents with Complete Heart Block HPI Patient is a 68-year-old male with a history of coronary artery disease with cardiac stents, COPD, diabetes, hyperlipidemia, and hypertension who presents as a transfer from an outside facility for concerns for a complete heart block. Patient states that he was walking across the lawn because he was doing work on his patio and became significantly short of breath at which time he had to stop. He states he was having some left-sided chest pain that was radiating into his neck that has since resolved. He states he has been taking a baby aspirin daily. He denies any other associated symptoms. He denies any headache, dizziness, vision changes, fevers, chills, cough, nausea, vomiting, abdominal pain, or any changes with urination or bowel habits. He denies any numbness, tingling, or weakness in his extremities. He denies any history of blood clots, coughing up of any blood, recent surgeries in the past 3 months, or any recent travel greater than 6 hours. 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 No pertinent family history. Social History Socioeconomic History Marital status: Tobacco Use Smoking status: Former Types: Cigarettes Quit date: 01/15/1993 Years since quittin.0 Substance and Sexual Activity Alcohol use: No Drug use: No Previous Medications Medication Sig amLODIPine (NORVASC) 10 MG tablet Take 1 (one) tablet (10 mg total) by mouth daily . atorvastatin (LIPITOR) 40 MG tablet Take 1 (one) tablet (40 mg total) by mouth daily . clopidogrel (PLAVIX) 75 mg tablet Take 1 (one) tablet (75 mg total) by mouth daily . losartan (COZAAR) 50 MG tablet Take 1 (one) tablet (50 mg total) by mouth daily . metoprolol tartrate (LOPRESSOR) 25 MG tablet Take 1 (one) tablet (25 mg total) by mouth 2 (two) times a day . pantoprazole (PROTONIX) 40 MG tablet Take 1 (one) tablet (40 mg total) by mouth daily . aspirin 81 MG EC tablet Take 81 mg by mouth daily. fish oil-omega-3 fatty acids 300-1,000 mg capsule Take 2 g by mouth daily. nitroGLYCERIN (NITROSTAT) 0.[address] 1 (one) tablet (0.4 mg total) under the tongue every 5 (five) minutes as needed for chest pain . vitamin E 200 UNIT capsule Take 200 Units by mouth daily. Allergies Allergen Reactions Penicillins Review of Systems Constitutional: Negative for chills and fever. HENT: Negative for rhinorrhea and sore throat. Eyes: Negative for pain and visual disturbance. Respiratory: Positive for shortness of breath. Negative for cough. Cardiovascular: Positive for chest pain. Negative for palpitations. Gastrointestinal: Negative for abdominal pain, constipation, diarrhea, nausea and vomiting. Genitourinary: Negative for dysuria and frequency. Musculoskeletal: Negative for back pain and neck pain. Skin: Negative for rash. Neurological: Negative for dizziness, weakness, numbness and headaches. Patient Vitals for the past 24 hrs: BP Temp Temp src Pulse Resp SpO2 01/09/23 1733 (!) 171/81 97.7 F (36.5 C) Oral (!) 59 16 95 % Physical Exam Constitutional: General: He is not in acute distress. Appearance: He is well-developed. He is not ill-appearing, toxic-appearing or diaphoretic. HENT: Head: Normocephalic and atraumatic. Right Ear: External ear normal. Left Ear: External ear normal. Nose: Nose normal. No rhinorrhea. Mouth/Throat: Mouth: Mucous membranes are moist. Pharynx: Oropharynx is clear. Eyes: General: Right eye: No discharge. Left eye: No discharge. Extraocular Movements: Extraocular movements intact. Conjunctiva/sclera: Conjunctivae normal. Pupils: Pupils are equal, round, and reactive to light. Neck: Trachea: No tracheal deviation. Cardiovascular: Rate and Rhythm: Normal rate and regular rhythm. Pulses: Normal pulses. Musculoskeletal: General: No tenderness. Normal range of motion. Cervical back: Normal range of motion and neck supple. No rigidity. Comments: 1+ pitting edema of the lower extremities bilaterally without overlying erythema or warmth. No neck or back tenderness. Pulmonary: Effort: Pulmonary effort is normal. No respiratory distress. Breath sounds: Normal breath sounds. No wheezing. Abdominal: General: Bowel sounds are normal. There is no distension. Palpations: Abdomen is soft. Tenderness: There is no abdominal tenderness. There is no guarding or rebound. Lymphadenopathy: Cervical: No cervical adenopathy. Skin: General: Skin is warm and dry. Neurological: General: No focal deficit present. Mental Status: He is alert and oriented to person, place, and time. Cranial Nerves: No cranial nerve deficit. Comments: Muscle strength 5/5 upper and lower extremity's bilaterally. Sensation intact bilaterally. Psychiatric: Mood and Affect: Mood normal. Laboratory & Radiographic Imaging (if done): Results for orders placed or performed during the hospital encounter of 01/09/23 BMP Result Value Ref Range Sodium 142 135 - 145 mmol/L Potassium 3.9 3.5 - 5.1 mmol/L Chloride 104 98 - 108 mmol/L Bicarbonate 24 21 - 32 mmol/L Anion Gap 18 10 - 20 mmol/L Glucose 86 65 - 99 mg/dL BUN 12 8 - 25 mg/dL Creatinine 1.08 0.80 - 1.30 mg/dL eGFR 71 >=60 mL/min/1.73 m2 BUN/Creatinine Ratio 11.1 10.0 - 20.0 Calcium 10.0 8.4 - 10.2 mg/dL Troponin x 2 (Now and Repeat in 3 hours) Result Value Ref Range Troponin T 18 <=22 ng/L Troponin T Interpretation Normal NT Pro BNP Result Value Ref Range NT-Pro BNP 375 (H) 0 - 300 pg/mL Magnesium Level Result Value Ref Range Magnesium 2.1 1.6 - 2.4 mg/dL TSH with Reflex Free T4 Result Value Ref Range TSH 2.63 0.27 - 4.20 mcIU/mL Phosphorus Result Value Ref Range Phosphorus 3.8 (H) 2.3 - 3.7 mg/dL POC Venous Blood Gas Panel-Pulm Result Value Ref Range pH, Venous 7.37 7.32 - 7.42 pCO2, John 45.9 41.0 - 51.0 mm Hg pO2, John 39 25 - 40 mm Hg Base Excess, John 0.8 -2.0 - 2.0 HCO3, John 26.6 24.0 - 28.0 mmol/L Hemoglobin, Blood Gas 13.9 13.5 - 17.5 g/dL Hematocrit, Calculated 42.5 41.0-53.0 % % O2 Sat, John 73.5 (H) 40.0 - 70.0 % CBC Auto Differential Result Value Ref Range WBC 7.77 4.50 - 11.00 K/mcL RBC 4.72 4.50 - 5.90 M/mcL Hemoglobin 14.9 13.5 - 17.5 g/dL Hematocrit 43.4 41.0 - 53.0 % MCV 91.9 80.0 - 100.0 fL MCH 31.6 26.0 - 34.0 pg MCHC 34.3 31.0 - 37.0 g/dL Platelets 185 150 - 400 K/mcL RDW - CV 12.9 11.6 - 14.8 % MPV 9.9 9.4 - 12.4 fL Neutrophils 63.6 % Lymphocytes 25.4 % Monocytes 6.6 % Eosinophils 2.8 % Basophils 1.2 % IG Percent 0.40 % Neutrophils Abs 4.95 1.70 - 7.00 K/mcL Lymphocytes Abs 1.97 0.90 - 4.00 K/mcL Monocytes Abs 0.51 0.30 - 0.90 K/mcL Eosinophils Abs 0.22 0.00 - 0.50 K/mcL Basophils Abs 0.09 0.00 - 0.30 K/mcL IG Absolute 0.03 0.00 - 0.30 K/mcL Nucleated RBC 0.0 % Nucleated RBC Abs 0.00 0.00 - 0.00 K/mcL XR Comparison Import Final Result XR Chest 1 View Final Result Patchy left basilar pulmonary infiltrates. Workstation ID: [id number] Echocardiogram complete (Results Pending) ECG 12 Lead Date/Time: 01/09/2023 5:51 PM Performed by: Cali Hernandez DO Authorized by: Cali Hernandez DO Interpreted by ED attending physician Comparison: compared with previous ECG from 01/09/2023 Rhythm: sinus rhythm BPM: 63 Conduction: complete RBBB, LAFB and 1st degree ST Segments: ST segments normal T Inversion: aVR and V1 CA Interval: 392 QRS Interval: 142 QT Interval: 476 Other findings: prolonged QTc interval Clinical impression: abnormal ECG Medical Decision Making Patient was seen and examined. History and physical exam were completed as above. Patient was lying in the bed in no acute distress. On physical exam, the patient was neurologically intact with no focal neurologic deficits. Muscle strength 5/5 upper and lower extremity's bilaterally. Sensation intact bilaterally. Alert and nontoxic-appearing. Lungs were clear to auscultation bilaterally. No accessory muscle use. Patient was speaking in full sentences. Oxygen saturation 95% on room air. Abdomen was soft, nontender, nondistended, bowel sounds are present. 1+ pitting edema of the lower extremities bilaterally without overlying erythema or warmth. Symmetric distal pulses. Differential diagnosis includes but is not limited to heart failure, infectious process, inflammatory process, ACS, pulmonary embolism. I have a low suspicion for pulmonary embolism as a cause for the patient's symptoms at this time. Interventional cardiology was consulted and I spoke with Parail regarding the patient who recommended the patient be admitted to the [facility]. TSH, troponin, CBC, BNP, and magnesium level were within normal limits. VBG did not show respiratory acidosis. BNP was 375. Chest x-ray showed patchy left basilar pulmonary infiltrates. The patient was ordered doxycycline as the patient has a prolonged QTc on his EKG. The patient is not meeting sepsis criteria at this time. The patient was admitted for further care. At the time of admission, the patient was hemodynamically stable. . Clinical Impression: 1. Heart block 2. Chest pain, unspecified type 3. Shortness of breath 4. Elevated blood pressure reading 5. Prolonged Q-T interval on ECG 6. Community acquired pneumonia, unspecified laterality ED Disposition ED Disposition Hospitalize Condition -- Comment Recommended Level of Care: Intermediate Care Phone call required?: No Comment: [facility] Follow-up Information Follow-up information has not been specified. Contact information for after-discharge care Follow-up information has not been specified. Cali Hernandez DO 01/09/[address] [facility] 01-09-2023 Emergency department Note Associated Order(s): ECG 12 Lead ED PROVIDER NOTE [facility] EMERGENCY DEPARTMENT NAME: Tabatha Penny AGE: 77 y.o. : 1945 VISIT DATE: 01/09/2023 CSN: [id number] PCP: Jada Peters MD Chief Complaint Patient presents with Complete Heart Block HPI Patient is a 68-year-old male with a history of coronary artery disease with cardiac stents, COPD, diabetes, hyperlipidemia, and hypertension who presents as a transfer from an outside facility for concerns for a complete heart block. Patient states that he was walking across the lawn because he was doing work on his patio and became significantly short of breath at which time he had to stop. He states he was having some left-sided chest pain that was radiating into his neck that has since resolved. He states he has been taking a baby aspirin daily. He denies any other associated symptoms. He denies any headache, dizziness, vision changes, fevers, chills, cough, nausea, vomiting, abdominal pain, or any changes with urination or bowel habits. He denies any numbness, tingling, or weakness in his extremities. He denies any history of blood clots, coughing up of any blood, recent surgeries in the past 3 months, or any recent travel greater than 6 hours. 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 No pertinent family history. Social History Socioeconomic History Marital status: Tobacco Use Smoking status: Former Types: Cigarettes Quit date: 01/15/1993 Years since quittin.0 Substance and Sexual Activity Alcohol use: No Drug use: No Previous Medications Medication Sig amLODIPine (NORVASC) 10 MG tablet Take 1 (one) tablet (10 mg total) by mouth daily . atorvastatin (LIPITOR) 40 MG tablet Take 1 (one) tablet (40 mg total) by mouth daily . clopidogrel (PLAVIX) 75 mg tablet Take 1 (one) tablet (75 mg total) by mouth daily . losartan (COZAAR) 50 MG tablet Take 1 (one) tablet (50 mg total) by mouth daily . metoprolol tartrate (LOPRESSOR) 25 MG tablet Take 1 (one) tablet (25 mg total) by mouth 2 (two) times a day . pantoprazole (PROTONIX) 40 MG tablet Take 1 (one) tablet (40 mg total) by mouth daily . aspirin 81 MG EC tablet Take 81 mg by mouth daily. fish oil-omega-3 fatty acids 300-1,000 mg capsule Take 2 g by mouth daily. nitroGLYCERIN (NITROSTAT) 0.[address] 1 (one) tablet (0.4 mg total) under the tongue every 5 (five) minutes as needed for chest pain . vitamin E 200 UNIT capsule Take 200 Units by mouth daily. Allergies Allergen Reactions Penicillins Review of Systems Constitutional: Negative for chills and fever. HENT: Negative for rhinorrhea and sore throat. Eyes: Negative for pain and visual disturbance. Respiratory: Positive for shortness of breath. Negative for cough. Cardiovascular: Positive for chest pain. Negative for palpitations. Gastrointestinal: Negative for abdominal pain, constipation, diarrhea, nausea and vomiting. Genitourinary: Negative for dysuria and frequency. Musculoskeletal: Negative for back pain and neck pain. Skin: Negative for rash. Neurological: Negative for dizziness, weakness, numbness and headaches. Patient Vitals for the past 24 hrs: BP Temp Temp src Pulse Resp SpO2 01/09/23 1733 (!) 171/81 97.7 F (36.5 C) Oral (!) 59 16 95 % Physical Exam Constitutional: General: He is not in acute distress. Appearance: He is well-developed. He is not ill-appearing, toxic-appearing or diaphoretic. HENT: Head: Normocephalic and atraumatic. Right Ear: External ear normal. Left Ear: External ear normal. Nose: Nose normal. No rhinorrhea. Mouth/Throat: Mouth: Mucous membranes are moist. Pharynx: Oropharynx is clear. Eyes: General: Right eye: No discharge. Left eye: No discharge. Extraocular Movements: Extraocular movements intact. Conjunctiva/sclera: Conjunctivae normal. Pupils: Pupils are equal, round, and reactive to light. Neck: Trachea: No tracheal deviation. Cardiovascular: Rate and Rhythm: Normal rate and regular rhythm. Pulses: Normal pulses. Musculoskeletal: General: No tenderness. Normal range of motion. Cervical back: Normal range of motion and neck supple. No rigidity. Comments: 1+ pitting edema of the lower extremities bilaterally without overlying erythema or warmth. No neck or back tenderness. Pulmonary: Effort: Pulmonary effort is normal. No respiratory distress. Breath sounds: Normal breath sounds. No wheezing. Abdominal: General: Bowel sounds are normal. There is no distension. Palpations: Abdomen is soft. Tenderness: There is no abdominal tenderness. There is no guarding or rebound. Lymphadenopathy: Cervical: No cervical adenopathy. Skin: General: Skin is warm and dry. Neurological: General: No focal deficit present. Mental Status: He is alert and oriented to person, place, and time. Cranial Nerves: No cranial nerve deficit. Comments: Muscle strength 5/5 upper and lower extremity's bilaterally. Sensation intact bilaterally. Psychiatric: Mood and Affect: Mood normal. Laboratory & Radiographic Imaging (if done): Results for orders placed or performed during the hospital encounter of 01/09/23 BMP Result Value Ref Range Sodium 142 135 - 145 mmol/L Potassium 3.9 3.5 - 5.1 mmol/L Chloride 104 98 - 108 mmol/L Bicarbonate 24 21 - 32 mmol/L Anion Gap 18 10 - 20 mmol/L Glucose 86 65 - 99 mg/dL BUN 12 8 - 25 mg/dL Creatinine 1.08 0.80 - 1.30 mg/dL eGFR 71 >=60 mL/min/1.73 m2 BUN/Creatinine Ratio 11.1 10.0 - 20.0 Calcium 10.0 8.4 - 10.2 mg/dL Troponin x 2 (Now and Repeat in 3 hours) Result Value Ref Range Troponin T 18 <=22 ng/L Troponin T Interpretation Normal NT Pro BNP Result Value Ref Range NT-Pro BNP 375 (H) 0 - 300 pg/mL Magnesium Level Result Value Ref Range Magnesium 2.1 1.6 - 2.4 mg/dL TSH with Reflex Free T4 Result Value Ref Range TSH 2.63 0.27 - 4.20 mcIU/mL Phosphorus Result Value Ref Range Phosphorus 3.8 (H) 2.3 - 3.7 mg/dL POC Venous Blood Gas Panel-Pulm Result Value Ref Range pH, Venous 7.37 7.32 - 7.42 pCO2, John 45.9 41.0 - 51.0 mm Hg pO2, John 39 25 - 40 mm Hg Base Excess, John 0.8 -2.0 - 2.0 HCO3, John 26.6 24.0 - 28.0 mmol/L Hemoglobin, Blood Gas 13.9 13.5 - 17.5 g/dL Hematocrit, Calculated 42.5 41.0-53.0 % % O2 Sat, John 73.5 (H) 40.0 - 70.0 % CBC Auto Differential Result Value Ref Range WBC 7.77 4.50 - 11.00 K/mcL RBC 4.72 4.50 - 5.90 M/mcL Hemoglobin 14.9 13.5 - 17.5 g/dL Hematocrit 43.4 41.0 - 53.0 % MCV 91.9 80.0 - 100.0 fL MCH 31.6 26.0 - 34.0 pg MCHC 34.3 31.0 - 37.0 g/dL Platelets 185 150 - 400 K/mcL RDW - CV 12.9 11.6 - 14.8 % MPV 9.9 9.4 - 12.4 fL Neutrophils 63.6 % Lymphocytes 25.4 % Monocytes 6.6 % Eosinophils 2.8 % Basophils 1.2 % IG Percent 0.40 % Neutrophils Abs 4.95 1.70 - 7.00 K/mcL Lymphocytes Abs 1.97 0.90 - 4.00 K/mcL Monocytes Abs 0.51 0.30 - 0.90 K/mcL Eosinophils Abs 0.22 0.00 - 0.50 K/mcL Basophils Abs 0.09 0.00 - 0.30 K/mcL IG Absolute 0.03 0.00 - 0.30 K/mcL Nucleated RBC 0.0 % Nucleated RBC Abs 0.00 0.00 - 0.00 K/mcL XR Comparison Import Final Result XR Chest 1 View Final Result Patchy left basilar pulmonary infiltrates. 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 History and physical exam were completed as above. Patient was lying in the bed in no acute distress. On physical exam, the patient was neurologically intact with no focal neurologic deficits. Muscle strength 5/5 upper and lower extremity's bilaterally. Sensation intact bilaterally. Alert and nontoxic-appearing. Lungs were clear to auscultation bilaterally. No accessory muscle use. Patient was speaking in full sentences. Oxygen saturation 95% on room air. Abdomen was soft, nontender, nondistended, bowel sounds are present. 1+ pitting edema of the lower extremities bilaterally without overlying erythema or warmth. Symmetric distal pulses. Differential diagnosis includes but is not limited to heart failure, infectious process, inflammatory process, ACS, pulmonary embolism. I have a low suspicion for pulmonary embolism as a cause for the patient's symptoms at this time. Interventional cardiology was consulted and I spoke with Damon regarding the patient who recommended the patient be admitted to the [facility]. TSH, troponin, CBC, BNP, and magnesium level were within normal limits. VBG did not show respiratory acidosis. BNP was 375. Chest x-ray showed patchy left basilar pulmonary infiltrates. The patient was ordered doxycycline as the patient has a prolonged QTc on his EKG. The patient is not meeting sepsis criteria at this time. The patient was admitted for further care. At the time of admission, the patient was hemodynamically stable. . Clinical Impression: 1. Heart block 2. Chest pain, unspecified type 3. Shortness of breath 4. Elevated blood pressure reading 5. Prolonged Q-T interval on ECG 6. Community acquired pneumonia, unspecified laterality ED Disposition ED Disposition Hospitalize Condition -- Comment Recommended Level of Care: Intermediate Care Phone call required?: No Comment: [facility] Follow-up Information Follow-up information has not been specified. Contact information for after-discharge care Follow-up information has not been specified. Cali Hernandez DO 01/09/231843 Pt to ED from [facility] for cardiology consult 2/2 complete heart block. Hx of 5 stents. EP not available at [facility]. Accepted by Damon. Pt denies CP, SOB, dizziness, light headedness, or other symptoms. Pt states he was working outside on a deck this afternoon and he became weak and had onset of cp at that time. Bed: 56 Expected date: Expected time: Means of arrival: Comments: Medic, heart block rekha soliz documented in this encounter [facility] 01-09-2023 Emergency department Triage note Pt to ED from [facility] for cardiology consult 2/2 complete heart block. Hx of 5 stents. EP not available at [facility]. Accepted by Damon. Pt denies CP, SOB, dizziness, light headedness, or other symptoms. Pt states he was working outside on a deck this afternoon and he became weak and had onset of cp at that time. [facility] 01-09-2023 Emergency department Note Bed: 56 Expected date: Expected time: Means of arrival: Comments: Medic, heart block tx, peoples [facility] Mediastinal lymphadenopathy Enlargement of lymph [facility] Diagnosis Squamous cell carcinoma of right lung Neoplasm of unspecified behavior of unspecified site NSCLC of right lung [facility] NSCLC of right lung NSCLC of right lung [facility] Diagnosis Squamous cell carcinoma of right lung- Primary Neoplasm of unspecified behavior of unspecified site NSCLC of right lung [facility] Diagnosis Squamous cell carcinoma of right lung- Primary Squamous cell carcinoma of right lung NSCLC of right lung Acute post-operative pain CAD (coronary artery disease) Coronary atherosclerosis of unspecified type of vessel, [place] or graft Essential hypertension, benign Overweight (BMI 25.0-29.9) Overweight Hyperlipidemia Other and unspecified hyperlipidemia VANDANA (obstructive sleep apnea) Obstructive sleep apnea (adult) (pediatric) GERD (gastroesophageal reflux disease) Esophageal reflux Health education/counseling Counseling NOS At moderate risk for venous thromboembolism (VTE) Acute post-operative pain Leukocytosis Leukocytosis, unspecified [facility] (Routine) Specialty Diagnoses / Procedures Referred By Haleigh rubio Referred To Contact KASSIE [address] [place] [address] Referral ID Status Reason Start Date Expiration Date Visits Re quested Visits Authorized * Radiology (Routine) - New Request Specialty Diagnoses / Procedures Referred By Contac t Referred To Contact Procedures PACEMAKER/ICD INTERROGATION Li Coppola MD [address] [place] [id number] Referral ID Status Reason Start Date Expiration Date V isits Requested Visits Authorized [id number] New Request 05/28/2023 06/21/2024 1 1 * (Routine) - New Request Specialty Diagnoses / Procedures Referred By Contac t Referred To Contact Procedures PLATELET MONITORING PER PROTOCOL Meron Mckeon, PAC [address] [place], [place] [id number] Referral ID Status Reason Start Date Expiration Date V isits Requested Visits Authorized [id number] New Request 05/28/2023 06/21/2024 1 1 * (Routine) - New Request Specialty Diagnoses / Procedures Referred By Contac t Referred To Contact Procedures DVT/VTE RISK ASSESSMENT Meron Mckeon, PAC [address] [place] [id number] Referral ID Status Reason Start Date Expiration Date V isits Requested Visits Authorized [id number] New Request 05/28/2023 06/21/2024 1 1 * Radiology (Emergency) - New Request Specialty Diagnoses / Procedures Referred By Contac t Referred To Contact Procedures PACEMAKER/ICD INTERROGATION Roxann Solomon MD [address] [place] [address] Referral ID Status Reason Start Date Expiration Date V isits Requested Visits Authorized [id number] New Request 05/28/2023 06/21/2024 1 1 [facility] Summary Purpose Family History No Family History Records FoundNo Family History Records FoundNo Family History Records FoundNo Family History Records FoundNo Family History Records Found Advance Directives No Advanced Directives Records FoundLatest Code Status on File Code Status Date Activated Date Inactivated Comments Full Code 01/13/2023 3:45 PM 01/14/2023 2:54 PM Code Status History Code Status Date Activated Date Inactivated Comments Full Code 01/09/2023 6:39 PM 01/13/2023 3:45 PM Latest Code Status on File Code Status Date Activated Date Inactivated Comments Full Code 01/13/2023 3:45 PM 01/14/2023 2:54 PM Code Status History Code Status Date Activated Date Inactivated Comments Full Code 01/09/2023 6:39 PM 01/13/2023 3:45 PM Documents on File Type Date Recorded 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 HealthCare Power of Arts Administrator 04/28/2023 11:40 AM Advance Directives/Living Will 04/28/2023 11:40 AM HealthCare Power of Arts Administrator 10/29/2014 Advance Directives/Living Will 10/29/2014 Latest Code Status on File Code Status Date Activated Date Inactivated Comments Full Code 04/28/2023 11:42 AM Documents on File Type Date Recorded 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 HealthCare Power of Arts Administrator 04/28/2023 11:40 AM Advance Directives/Living Will 04/28/2023 11:40 AM HealthCare Power of Arts Administrator 10/29/2014 Advance Directives/Living Will 10/29/2014 Latest Code Status on File Code Status Date Activated Date Inactivated Comments Full Code 04/28/2023 11:42 AM Reason for Referral Specialty Diagnoses / Procedures Referred By Contac t Referred To Contact Cardiology Diagnoses AV block Procedures Outpatient Device Clinic Referral - Open for details Asher Gaitan MD [address] [place] [address] Referral ID Status Reason Start Date Expiration Date V isits Requested Visits Authorized [id number] Authorized 01/13/2023 01/13/2024 1 1 Specialty Diagnoses / Procedures Referred By Haleigh t Referred To Contact Procedures PACEMAKER/ICD INTERROGATION Li Coppola MD [address] [place] [address] Referral ID Status Reason Start Date Expiration Date V isits Requested Visits Authorized [id number] New Request 04/28/2023 05/22/2024 1 1 Specialty Diagnoses / Procedures Referred By Radhaac t Referred To Contact Diagnoses NSCLC of right lung Procedures PFT STANDARD Meron Mckeon, PAC [address] [place] [address] Referral ID Status Reason Start Date Expiration Date V isits Requested Visits Authorized [id number] New Request 04/22/2023 05/16/2024 1 1 Additional Source Comments (unrecognized sect ion and content) No Status Records FoundNo Status Records FoundNo Status Records FoundNo Status Records FoundNo Status Records Found INFORMATION SOURCE (unrecogn ized section and content) DATE CREATED AUTHOR AUTHOR'S ORGANIZ ATION 05/31/2021 [facility] DATE CREATED AUTHOR AUTHOR'S ORGANIZ ATION 01/30/2023 [facility] DATE CREATED AUTHOR AUTHOR'S ORGANIZ ATION 07/31/2023 [facility] DATE CREATED AUTHOR AUTHOR'S ORGANIZ ATION 08/03/2023 [facility] Reason for Visit (unrecogniz ed section and content) Specialty Diagnoses / Procedures Referred By Haleigh t Referred To Contact Diagnoses Shortness of breath AV block Heart block Elevated blood pressure reading Prolonged Q-T interval on ECG Chest pain, unspecified type Community acquired pneumonia, unspecified laterality Third degree heart block Referral ID Status Reason Start Date Expiration Date Visits Re quested Visits Authorized [id number] 1 1 Reason Onset Date Comments Wound Check 01/24/2023 S/P DC PPM inser tion on 01/13/23 Specialty Diagnoses / Procedures Referred By Haleigh t Referred To Contact Diagnoses Mediastinal lymphadenopathy Mediastinal lymphadenopathy [R59.0] Procedures CA BRNCHSC INCL FLUOR GDNCE DX W/CELL WASHG SPX CA BRNSCHSC TNDSC EBUS DX/TX INTERVENTION PERPH LES BRONCHOSCOPY FLEXIBLE DIAGNOSTIC BRONCHOSCOPY FLEXIBLE W/ EBUS DURING BRONCH DIAGNOSTICS/INTEVENTION FOR PERIPHERAL LESION ADD-ON PX Li Coppola MD [address] [place] [id number] [facility] [address] [place] [address] Referral ID Status Reason Start Date Expiration Date Visits Re quested Visits Authorized [id number] 1 1 Referral ID Status Reason Start Date Expiration Date Visits Re quested Visits Authorized [id number] 1 1 Reason Comments Labs Only Specialty Diagnoses / Procedures Referred By Contac t Referred To Contact Diagnoses NSCLC of right lung Procedures PFT STANDARD Meron Mckeon, PAC [address] [place] [address] Referral ID Status Reason Start Date Expiration Date V isits Requested Visits Authorized [id number] New Request 04/22/2023 05/16/2024 1 1 Reason Comments Follow-up Pt reports coughing spells, SOB with moderate exertionPt reports low back pain that's newerPt denies problems swallowing Reason Comments Pacemaker/ICD event Specialty Diagnoses / Procedures Referred By Contalonso t Referred To Contact Diagnoses NSCLC of right lung NSCLC of right lung [C34.91] Procedures CA THORACOSCOPY W/LOBECTOMY SINGLE LOBE CA BRNCHSC INCL FLUOR GDNCE DX W/CELL WASHG SPX LOBECTOMY LUNG ROBOTIC BRONCHOSCOPY FLEXIBLE DIAGNOSTIC Li Coppola MD [address] [place] [address] [facility] [address] [place] [id number] Referral ID Status Reason Start Date Expiration Date Visits Re quested Visits Authorized [id number] 1 1 Scheduled Active and Recently Administ ered Medications (unrecognized section and content) Continuous Medication Order 01/12/2023 01/13/2023 01/14/2023 sodium chloride 0.9% (NS) () 50 mL/hr, Intravenous, Continuous, Starting on 01/13/23 at 0845, For 10 hours 0845 (New Bag - Provider: Herlinda Osuna RN)2300 (Stopped - Provider: Komal Montoya RN) PRN Medication Order 01/12/2023 01/13/2023 01/14/2023 acetaminophen (TYLENOL) tablet 650 mg 650 mg, Oral, Every 4 hours PRN, mild pain, fever 100.4 F or greater, headaches, Starting on Marleni 01/09/23 at 1922 1929 (Given - Provider: Monique Prince RN) 2112 (Given - Provider: Asher Arias LPN) 0542 (Given - Provider: Asher Arias LPN) clindamycin (CLEOCIN) IVPB 600 mg (premix) (COMPLETED) Administer over 30 Minutes, Intra-op continuous PRN, Starting on Fri01/13/23 at 1414, Intra-Procedure 1414 (New Bag - Provider: Sharifa Roca RN)2300 (Stopped - Provider: Komal Montoya RN) fentaNYL (SUBLIMAZE) injection (CANCELED) As needed, Starting on Fri01/13/23 at 1423, Intra-Procedure 1423 (Given - Provider: Sharifa Roca RN)1442 (Given - Provider: Sharifa Roca RN)1517 (Given - Provider: Sharifa Roca RN) iopamidoL (ISOVUE-370) 370 mg iodine /mL (76 %) injection (CANCELED) As needed, Starting on Fri01/13/23 at 1511, Intra-Procedure 1455 (Given - Provider: Asher Gaitan MD) lidocaine 20 mg/mL (2 %) injection (CANCELED) As needed, Starting on Fri01/13/23 at 1441, Intra-Procedure 1441 (Given - Provider: Asher Gaitan MD)1444 (Given - Provider: Asher Gaitan MD)1445 (Given - Provider: Asher Gaitan MD) melatonin tablet 3 mg 3 mg, Oral, Nightly PRN, Sleep, Starting on Marleni 01/09/23 at 1922 midazolam (VERSED) injection (CANCELED) As needed, Starting on Fri01/13/23 at 1418, Intra-Procedure 1418 (Given - Provider: Sharifa Roca RN)1442 (Given - Provider: Sharifa Roca, TONY)1515 (Given - Provider: Sharifa Roca, TONY) senna (SENOKOT) tablet 8.6 mg 8.6 mg (1 tablet), Oral, 2 times daily PRN, constipation, Starting on Marleni 01/09/23 at 1922 sodium chloride (PF) (NS) flush 5 mL(Linked Group 2) 5 mL, Intravenous, As needed, line care, Starting on Marleni 01/09/23 at 1742 sodium chloride (PF) (NS) flush 5 mL(Linked Group 1) 5 mL, Intravenous, As needed, line care, Starting on Marleni 01/09/23 at 1922 sodium chloride 0.9% (NS)(Linked Group 2) 0-150 mL/hr, Intravenous, As needed, To flush line after IV infusions when no maintenance IV ordered or a compatibility issue. Infuse 20ml at the same rate as the secondary infusion, Starting on Marleni 01/09/23 at 1742, Run as Primary IV. NOT intended for KVO. sodium chloride 0.9% (NS)(Linked Group 1) 0-150 mL/hr, Intravenous, As needed, To flush line after IV infusions when no maintenance IV ordered or a compatibility issue. Infuse 20ml at the same rate as the secondary infusion, Starting on Marleni 01/09/23 at 1922, Run as Primary IV. NOT intended for KVO. Linked Groups Order Group 1: Saline lock IV (CANCELED) Routine, Continuous, Starting on Marleni 01/09/23 at 1925, Until Specified And sodium chloride (PF) (NS) flush 5 mLJump to med 5 mL, Intravenous, As needed, line care, Starting on Marleni 01/09/23 at 1922 And sodium chloride (PF) (NS) flush 5 mLJump to med 5 mL, Intravenous, Every 8 hours scheduled, First dose on Marleni 01/09/23 at 2200
Saline lock
And sodium chloride 0.9% (NS)Jump to med 0-150 mL/hr, Intravenous, As needed, To flush line after IV infusions when no maintenance IV ordered or a compatibility issue. Infuse 20ml at the same rate as the secondary infusion, Starting on Marleni 01/09/23 at 1922
Run as Primary IV. NOT intended for KVO.
Group 2: Insert peripheral IV (COMPLETED) MARIAELENA, Once, On Marleni 01/09/23 at 1745, For 1 occurrence And Saline lock IV (CANCELED) MARIAELENA, Once, On Marleni 01/09/23 at 1745, For 1 occurrence And sodium chloride (PF) (NS) flush 5 mLJump to med 5 mL, Intravenous, As needed, line care, Starting on Marleni 01/09/23 at 1742 And sodium chloride 0.9% (NS)Jump to med 0-150 mL/hr, Intravenous, As needed, To flush line after IV infusions when no maintenance IV ordered or a compatibility issue. Infuse 20ml at the same rate as the secondary infusion, Starting on Marleni 01/09/23 at 1742
Run as Primary IV. NOT intended for KVO.
Continuous Medication Order 04/26/2023 04/27/2023 04/28/2023 Lactated ringers IV solution Intravenous, at 75 mL/hr, CONTINUOUS, Starting on Fri04/28/23 at 1115, Until Fri04/28/23 at 1735, Pre-op/Pre-Proc 1146 ($$New Bag$$ - Provider: Faiza Couch RN) PRN Medication Order 04/26/2023 04/27/2023 04/28/2023 Haloperidol lactate (HALDOL) injection 1 mg 1 mg, Intravenous, ONCE NEEDED, 1 dose, Starting on Fri04/28/23 at 1306, Until Fri04/28/23 at 1735, Refractory Nausea/vomiting, Use if patient still experiencing nausea/vomiting after 1st and 2nd line medications. Do not administer within 6 hours of intra-operative dose., Recovery HYDROmorphone (DILAUDID) injection 0.2 mg 0.2 mg, Intravenous, EVERY 10 MINUTES NEEDED, 10 doses, Starting on Fri04/28/23 at 1306, Until Fri04/28/23 at 1735, Moderate Pain, Severe Pain, May give a total of 2mg in PACU., Recovery Lidocaine 1% (PF) (XYLOCAINE MPF) 1 % injection 0.1-0.3 mL 0.1-0.3 mL, Infiltration, ONCE NEEDED, 1 dose, Starting on Fri04/28/23 at 1141, Until Fri04/28/23 at 1735, Other, For Peripheral IV insertion, For Peripheral insertion, Pre-op/Pre-Proc Ondansetron 4mg/2ml (ZOFRAN) injection 4 mg 4 mg, Intravenous, ONCE NEEDED, 1 dose, Starting on Fri04/28/23 at 1432, Until Fri04/28/23 at 1735, Nausea / Vomiting, Post-op/Post-Proc Prochlorperazine (COMPAZINE) injection 5 mg 5 mg, Intravenous, EVERY 1 HOUR NEEDED, 2 doses, Starting on Fri04/28/23 at 1306, Until Fri04/28/23 at 1735, Nausea / Vomiting, FIRST Line antiemetic, Do not administer within 6 hours of intra-operative dose. For IV route: dilute dose with 10mL normal saline and give by slow IV push at a rate of 5mg/min. Maximum of 40mg/day., Recovery Scheduled Medication Order 05/28/2023 05/29/2023 05/30/2023 Acetaminophen (TYLENOL) tablet 650 mg 650 mg, Oral, EVERY 6 HOURS NON-STANDARD, First dose on Fri05/28/23 at 1545, Until Discontinued, Maximum dose of acetaminophen is 4000 mg from all sources in 24 hours., Post-op/Post-Proc 1550 (Given - Provider: Marci Mccartney RN)2152 (Given - Provider: Raquel Singh, TONY) 0342 (Given - Provider: Raquel Singh, TONY)0846 (Given - Provider: Abby Banks RN)1504 (Given - Provider: Abby Banks RN)2041 (Given - Provider: Izzy Mccloud, RN) 0508 (Given - Provider: Izzy Mccloud, RN)0807 (Given - Provider: Abby Banks, RN) amLODIPine (NORVASC) tablet 10 mg 10 mg, Oral, DAILY, First dose on Fri05/29/23 at 1045, Until Discontinued 1202 (Given - Provider: Abby Banks RN) 0808 (Given - Provider: Abby Banks, TONY) aspirin chewable tablet 81 mg 81 mg, Oral, DAILY, First dose on Fri05/29/23 at 0900, Until Discontinued, Post-op/Post-Proc 0850 (Given - Provider: Abby Banks RN) 0808 (Given - Provider: Abby Banks RN) Atorvastatin (LIPITOR) tablet 40 mg 40 mg, Oral, DAILY AT BEDTIME, First dose on Fri05/28/23 at 2100, Until Discontinued, Post-op/Post-Proc 2033 (Given - Provider: Raquel Singh, TONY) 2041 (Given - Provider: Izzy Mccloud RN) bisacodyl (DULCOLAX) suppository 10 mg (COMPLETED) 10 mg, Rectal, ONCE, 1 dose, On Fri05/30/23 at 0645 0624 (Given - Provider: Izzy Mccloud, RN) Clindamycin (CLEOCIN) 900 mg in dextrose 50 ml premix IVPB (COMPLETED) 900 mg, Intravenous, Administer over 30 Minutes, EVERY 8 HOURS NON-STANDARD, 2 doses, First dose on Fri05/28/23 at 1545, Last dose on Fri05/28/23 at 2345, Post-op/Post-Proc 1559 ($$New Bag$$ - Provider: Marci Mccartney RN)2342 ($$New Bag$$ - Provider: Raquel Singh RN) Docusate (COLACE) capsule 100 mg 100 mg, Oral, 2 TIMES DAILY, First dose on Fri05/28/23 at 1700, Until Discontinued, Post-op/Post-Proc 1700 (Canceled Entry - Provider: System Discharge - Comment: Automatically canceled at discontinue of medication order) 0841 (Given - Provider: Abby Banks RN)1505 (Given - Provider: Abby Banks RN) 0807 (Given - Provider: Abby Banks RN) Enoxaparin Sodium (LOVENOX) injection 40 mg 40 mg, Subcutaneous, EVERY 24 HOURS, First dose (after last modification) on Marleni 05/29/23 at 0900, Until Discontinued, Indications: DVT/PE prophylaxis, Post-op/Post-Proc 0842 (Given - Provider: Abby Banks RN) 0807 (Given - Provider: Abby Banks RN) Ipratropium-albuterol (DUONEB) 0.5-2.5 (3) MG/3ML nebulizer solution 3 mL 3 mL, Nebulization, EVERY 6 HOURS NON-STANDARD, First dose on Fri05/28/23 at 1245, Until Discontinued, Post-op/Post-Proc 1238 (Given - Provider: Marci Mccartney RN)1847 (Not Given - Provider: Araceli Macdonald RCP - Reason: RT not available)2003 (Given - Provider: Promise Hardy RCP) 0159 (Not Given - Provider: Promise Hardy RCP - Reason: Patient sleeping - Comment: pt requested to not be disturbed throughout night for breathing treatment)0756 (Given - Provider: Demetri Cavazos RCP)1439 (Not Given - Provider: Demetri Cavazos RCP - Reason: Patient/family refused - Comment: Patient offered treatment twice. Rt told to comeback later x 2. Workload does not allow time to return.)2225 (Given - Provider: Shruthi Barrios RCP) 0024 (Not Given - Provider: Shruthi Barrios RCP - Reason: Patient/family refused - Comment: DO NOT WAKE)0807 (Given - Provider: Cesar Hernandez RCP)1400 (Canceled Entry - Provider: System Discharge - Comment: Automatically canceled at discontinue of medication order) Magnesium sulfate 4 g in sterile water 50 ml premix IVPB (COMPLETED) 4 g, Intravenous, Administer over 4 Hours, ONCE, 1 dose, On Fri05/29/23 at 0645 0639 ($$New Bag$$ - Provider: Raquel Singh RN) 0809 (Stopped - Provider: Abby Banks RN) Mirtazapine (REMERON) tablet 15 mg 15 mg, Oral, DAILY, First dose on Fri05/28/23 at 2100, Until Discontinued 2033 (Given - Provider: Raquel Singh, TONY) 2042 (Given - Provider: Izzy Mccloud RN) Pantoprazole (PROTONIX) tablet DR 40 mg 40 mg, Oral, DAILY, First dose on Fri05/29/23 at 0900, Until Discontinued, Swallow whole; do not crush or chew., Indications: Continuation of Home Therapy, Post-op/Post-Proc 0841 (Given - Provider: Abby Banks, TONY) 0807 (Given - Provider: Abby Banks, TONY) Polyethylene glycol (MIRALAX) packet 17 g 17 g, Oral, DAILY, First dose on Fri05/30/23 at 0900, Until Discontinued 08 (Given - Provider: Abby Banks, TONY) Senna (SENOKOT) tablet 17.2 mg 17.2 mg, Oral, EVERY 12 HOURS, First dose on Fri05/28/23 at 2100, Until Discontinued, Post-op/Post-Proc 2034 (Given - Provider: Raquel Singh, TONY) 0841 (Given - Provider: Abby Banks, TONY)2042 (Given - Provider: Izzy Mccloud RN) 0807 (Given - Provider: Abby Banks RN) Continuous Medication Order 05/28/2023 05/29/2023 05/30/2023 dextrose 5% and sodium chloride 0.45% 1,000 ml with potassium chloride 20 mEq premix IV solution (CANCELED) Intravenous, at 75 mL/hr, CONTINUOUS, Starting on Fri05/28/23 at 1145, Until Fri05/29/23 at 0500, May convert to saline well when patient is tolerating oral diet., Post-op/Post-Proc 1327 ($$New Bag$$ - Provider: Marci Mccartney RN) 0348 ($$New Bag$$ - Provider: Raquel Singh RN)0638 (Stopped - Provider: Raquel Singh RN) Lactated ringers IV solution (CANCELED) Intravenous, at 75 mL/hr, CONTINUOUS, Starting on Fri05/28/23 at 0530, Until Fri05/28/23 at 1845, Pre-op/Pre-Proc 0730 ($$New Bag$$ - Provider: Armando Curry MD)0815 (Anesthesia Volume Adjustment - Provider: Armando Curry MD)0926 (Anesthesia Volume Adjustment - Provider: Armando Curry MD) PRN Medication Order 05/28/2023 05/29/2023 05/30/2023 bisacodyl (DULCOLAX) suppository 10 mg 10 mg, Rectal, DAILY NEEDED, Starting on Marleni 05/29/23 at 1010, Until Fri05/30/23 at 1437, Constipation If No Bowel Movement in 48 Hours BUPivacaine LIPOSOME (EXPAREL) 1.3 % 133 mg, BUPivacaine (PF) (MARCAINE) 0.25 % 10 mL in Total Volume 20 mL injection (COMPLETED)(Linked Group 1) Infiltration, CYLINDER CHECKER TO PROCEDURE, 1 dose, Starting on Fri05/28/23 at 0828, Until Fri05/28/23 at 1050, For OR use only under direction of the attending physician., Intra-op/Intra-Proc 1050 (Given - Provider: Sania Alas RN) BUPivacaine-EPINEPHrine (MARCAINE;SENSORCAINE W/ EPI) 0.25% -[id number] injection (CANCELED) NEEDED, Starting on Fri05/28/23 at 0817, Until Fri05/28/23 at 1141, Intra-op/Intra-Proc 0817 (Given - Provider: Li Coppola MD) Clindamycin (CLEOCIN) 900 mg in dextrose 50 ml premix IVPB (COMPLETED) 900 mg, Intravenous, Administer over 30 Minutes, CYLINDER CHECKER TO PROCEDURE, 1 dose, Starting on Fri05/28/23 at 0521, Until Discontinued, Other, Initiate antibiotic administration 30-60 minutes prior to surgical incision and complete administration prior to surgical incision., Pre-op/Pre-Proc 0741 (Given - Provider: Armando Curry MD) HYDROmorphone (DILAUDID) injection 0.5 mg (CANCELED) 0.5 mg, Intravenous, EVERY 10 MINUTES NEEDED, 8 doses, Starting on Fri05/28/23 at 1131, Until Fri05/28/23 at 1845, Moderate Pain, Severe Pain, May give a total of 4mg in PACU., Recovery 1203 (Given - Provider: Marci Mccartney, TONY) Ketorolac (TORADOL) injection 15 mg 15 mg, Intravenous, EVERY 6 HOURS NEEDED, Starting on Fri05/28/23 at 1234, Until Fri05/30/23 at 1437, Moderate Pain, AVOID if CrCl < 30, SCr > 1.5, or CAD, Post-op/Post-Proc 1235 (Given - Provider: Marci Mccartney, TONY) morphine (PF) 200 mcg in sodium chloride (PF) 0.9 % 1 ml (total volume) intrathecal injection (COMPLETED) 200 mcg, Intrathecal, CYLINDER CHECKER TO PROCEDURE, 1 dose, Starting on Fri05/28/23 at 0521, Until Discontinued, Other, To be administered in guero-op setting by anesthesia personnel or in the OR by attending physician for spinal procedures., To be administered in guero-op setting by anesthesia personnel or by attending physician for spinal procedures. Intra Op/Intra-Proc, sign and hold., Pre-op/Pre-Proc 0700 (Given - Provider: Armando Curry MD) Ondansetron (ZOFRAN) tablet 4 mg(Linked Group 2) 4 mg, Oral, EVERY 6 HOURS NEEDED, Starting on Fri05/28/23 at 1538, Until Fri05/30/23 at 1437, Nausea / Vomiting, 1st Line, Post-op/Post-Proc Ondansetron 4mg/2ml (ZOFRAN) injection 4 mg(Linked Group 2) 4 mg, Intravenous, EVERY 6 HOURS NEEDED, Starting on Fri05/28/23 at 1538, Until Fri05/30/23 at 1437, Nausea / Vomiting, 1st line, If patient unable to tolerate PO., Post-op/Post-Proc Sodium chloride 0.9 % irrigation (CANCELED) NEEDED, Starting on Fri05/28/23 at 1100, Until Fri05/28/23 at 1141, Intra-op/Intra-Proc 1100 (Given - Provider: Li Coppola MD) traMADol (ULTRAM) tablet 50 mg 50 mg, Oral, EVERY 4 HOURS NEEDED, Starting on Fri05/28/23 at 1909, Until Fri05/30/23 at 1437, Moderate Pain, Severe Pain, Post-op/Post-Proc 0657 (Given - Provid er: Prosper Florence RN) Linked Groups Order Group 1: BUPivacaine LIPOSOME (EXPAREL) 1.3 % 133 mg, BUPivacaine (PF) (MARCAINE) 0.25 % 10 mL in Total Volume 20 mL injection (COMPLETED)Jump to med Infiltration, CYLINDER CHECKER TO PROCEDURE, 1 dose, Starting on Fri05/28/23 at 0828, Until Fri05/28/23 at 1050
For OR use only under direction of the attending physician.
Intra-op/Intra-Proc And BUPivacaine LIPOSOME (EXPAREL) 1.3 % 133 mg, BUPivacaine (PF) (MARCAINE) 0.25 % 10 mL in Total Volume 20 mL injection (COMPLETED)Jump to med Infiltration, CYLINDER CHECKER TO PROCEDURE, 1 dose, Starting on Fri05/28/23 at 0828, Until Fri05/28/23 at 1050
For OR use only under direction of the attending physician.
Intra-op/Intra-Proc Group 2: Ondansetron (ZOFRAN) tablet 4 mgJump to med 4 mg, Oral, EVERY 6 HOURS NEEDED, Starting on Fri05/28/23 at 1538, Until Fri05/30/23 at 1437, Nausea / Vomiting, 1st Line, Post-op/Post-Proc Or Ondansetron 4mg/2ml (ZOFRAN) injection 4 mgJump to med 4 mg, Intravenous, EVERY 6 HOURS NEEDED, Starting on Fri05/28/23 at 1538, Until Fri05/30/23 at 1437, Nausea / Vomiting, 1st line
If patient unable to tolerate PO.
Post-op/Post-Proc Care Teams (unrecognized sec tion and content) Protective Clothing Issuer Relationship Specialty Start Date End Date Jada Peters MD [address] [place] [address] [address] [place], [place] [id number] PCP - General 01/09/23 Protective Clothing Issuer Relationship Specialty Start Date End Date Jada Peters MD [address] [place] [address] [address] [place] [phone] PCP - General Family Medicine 03/26/23 Eloina Claros, TONY Registered Nurse 03/26/23 Pj Ardon MB/CHB [facility] [address] [place], [place] [phone] Oncologist Medical Oncology 03/26/23 Protective Clothing Issuer Relationship Specialty [place] [address] [place] [address] [address] [place] [phone] PCP - General Family Medicine 03/26/23 Eloina Claros, RN Registered Nurse 03/26/23 Pj Ardon MB/CHB [address] [place] [place], [place] [phone] Oncologist Medical Oncology 03/26/23 Protective Clothing Issuer Relationship Specialty Start Date End Date Jada Peters MD [address] [place] [phone] PCP - General Family Medicine 03/26/23 Eloina Claros, RN Registered Nurse 03/26/23 Pj Ardon MB/CHB [address] [place] [address] Oncologist Medical Oncology 03/26/23 Protective Clothing Issuer Relationship Specialty Start Date End Date Jada Peters MD [address] [place] [phone] PCP - General Family Medicine 03/26/23 Eloina Claros, RN Registered Nurse 03/26/23 Pj Ardon MB/CHB [address] [place] [address] Oncologist Medical Oncology 03/26/23 Protective Clothing Issuer Relationship Specialty Start Date End Date Jada Peters MD [address] [place] [phone] PCP - General Family Medicine 03/26/23 Eloina Claros, RN Registered Nurse 03/26/23 Pj Ardon MB/CHB [address] [place], [place] [phone] Oncologist Medical Oncology 03/26/23 Protective Clothing Issuer Relationship Specialty Start Date End Date Jada Peters MD [address] [place] [phone] PCP - General Family Medicine 03/26/23 Eloina Claros, RN Registered Nurse 03/26/23 Pj Ardon MB/DB [address] [place] [address] Oncologist Medical Oncology 03/26/23 Protective Clothing Issuer Relationship Specialty Start Date End Date Jada Peters MD [address] [place] [phone] PCP - General Family Medicine 03/26/23 Eloina Claros, TONY Registered Nurse 03/26/23 jP Ardon MB/DB [address] [place] [address] Oncologist Medical Oncology 03/26/23 Li Coppola MD [address] [place] [address] Surgeon Thoracic Surgery 05/29/23 Protective Clothing Issuer Relationship Specialty Start Date End Date Jada Peters MD [address] [place] [phone] PCP - General Family Medicine 03/26/23 Eloina Claros RN Registered Nurse 03/26/23 Pj Ardon MB/DB [address] [place] [address] Oncologist Medical Oncology 03/26/23 Li Coppola MD [address] [place] [address] Surgeon Thoracic Surgery 05/29/23 FOR RECORDS PERTAINING TO PATIENTS WHO ARE OR HAVE BEEN ENROLLED IN A CHEMICAL DEPENDENCY/SUBSTANCEABUSE PROGRAM, SOME INFORMATION MAY BE OMITTED. This clinical summary was aggregated from multiple sources. Caution should be exercised in using it in the provision of clinical care. This summary normalizes information from multiple sources, and as a consequence, information in this document may materially change the coding, format and clinical context of patient data. In addition, data may be omitted in some cases. CLINICAL DECISIONS SHOULD BE BASED ON THE PRIMARY CLINICAL RECORDS. [facility] [employer] [facility]. provides no warranty or guarantee of the accuracy or completeness of information in this document.
--- NOTE | 2023-08-19 17:16 | STRESSREP ---
Stress Test Report Pharmacologic myocardial perfusion stress test. 78-year-old male with a history of coronary disease status post PCI of the LAD mid right coronary artery in 2018. Resting EKG demonstrates sinus rhythm with a rate of 70 bpm. Resting blood pressure is 150/78 mmHg. 0.4 mg of regadenoson was infused per usual protocol followed by rapid intravenous saline flush injection. Continuous EKG monitoring was performed. The maximum heart rate was 85 bpm which was 59% of max impacted heart rate the maximum workload was 1 metabolic equivalent. At rest there were no ST or T wave changes noted to suggest ischemia and at peak infusion nonspecific ST changes were noted which did not meet the criteria for ischemia. No clinical angina is noted. The final blood pressure was 130/60 mmHg. Myocardial perfusion protocol. 11.8 mCi of technetium 99m sestamibi was injected at rest. 0.4 mg of regadenoson was infused per usual protocol. At peak infusion 36 mCi of technetium 99m sestamibi was injected stress images were obtained stress and rest images were reconstructed and compared in the short axis vertical long and horizontal long axis. Gated images were also obtained. Perfusion SPECT analysis: Review of the stress images demonstrate normal uptake of tracer noted in all areas of the myocardium except for the inferolateral wall which has perfusion defect as well as a small defect noted in the apex. The resting images similar demonstrated improved uptake of tracer noted in the apex with a persistent defect noted in the inferolateral wall. 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 Gated SPECT analysis: The gated ejection fraction is 62%. Conclusion: Abnormal pharmacologic myocardial perfusion stress test. Apical ischemia noted Inferolateral infarct present Preserved ejection fraction.
== END 2023-08-19 23:59 | disposition home or self-care (01) ==
LOC: CVS 07:01
PROVIDERS: PCP Student in an Organized Health Care Education/Training Program; Referring Provider Nurse Practitioner Family; Visit Provider Nurse Practitioner Family
DX: I25.119 Atherosclerotic heart disease of native coronary artery with unspecified angina pectoris (principal); I47.29 Other ventricular tachycardia; I25.89 Other forms of chronic ischemic heart disease
CPT/HCPCS: 78452; 93017; A9500; A4216; J2785

== ENCOUNTER 2023-09-18 09:22 | Observation (INO) | payer MEDICARE, SELFPAY ==
--- NOTE | 2023-08-28 09:26 | RAD_ITS ---
INDICATION: pre-operative: [place] EXAMINATION/TECHNIQUE: X-RAY - XR Chest 2 Views COMPARISON: March 05, 2023 FINDINGS: LINES/DEVICES: Stable left-sided pacemaker. LUNGS: Right basilar consolidation and mild effusion. No pneumothorax. MEDIASTINUM AND CARDIOVASCULAR STRUCTURES: Cardiac silhouette not enlarged. Central airways and mediastinal contour are unremarkable. BONES AND SOFT TISSUES: Unremarkable. RAD/Chest PA and Lateral IMPRESSION: Right basilar consolidation and mild effusion. Electronically Signed: Adama Gar DO at 17:23 EST ,
[2023-08-28 09:48] LABS: Absolute Lymphocyte Count 2.07 X10^3/uL (0.83-4.51); Absolute Neutrophil Count 3.2 X10^3/uL (2.0-7.7); Basophil# 0.12 X10^3/uL; Basophil% 1.9 % (0-1); Eosinophil# 0.41 X10^3/uL; Eosinophils% 6.5 % (0-5); Hematocrit 44.1 % (40-54); Hemoglobin 14.5 g/dL (13.0-16.5); Lymphocyte # 2.07 X10^3/ul (0.83-4.51); Lymphocyte % 32.6 % (19-41); Mean Corp Hgb Conc 32.9 g/dL (32-36); Mean Corpuscular Hgb 30.5 pg (27.0-32.0); Mean Corpuscular Volume 92.6 fL (80-94); Mean Platelet Vol. 9.6 fl (6.2-12.0); Monocyte# 0.49 X10^3/uL; Monocyte% 7.7 % (0-10); NRBC Flagged by Analyzer 0 % (0-5); Neutrophil # 3.23 X10^3/uL (2.7-7.7); Platelet Count 210 K/mm3 (150-450); RBC Distribution Width CV 13.2 % (11.6-14.6); Red Blood Count 4.76 M/mm3 (4.6-6.2); White Blood Count 6.3 K/mm3 (4.4-11.0)
[2023-08-28 10:43] LABS: Anion Gap 3 (5-15); BUN 7 mg/dL (7-18); BUN/Creat Ratio 7.2 RATIO (10-20); Calcium,Total 9.6 mg/dL (8.5-10.1); Chloride 109 mmol/L (98-107); Creatinine, Serum 0.98 mg/dL (0.70-1.30); EST Glomerular Filtration Rate 79 mL/min (>60); Est Glom Filt Rate - Afr Amer 95 mL/min (>60); Glucose 109 mg/dL (74-106); Magnesium 2.5 mg/dL (1.6-2.6); Potassium 3.9 mmol/L (3.5-5.1); Sodium Level 140 mmol/L (136-145); T4 Free Direct 1.11 ng/dL (0.76-1.46); Thyroid Stim Hormone (TSH) 3.63 uIU/mL (0.358-3.74)
--- NOTE | 2023-09-09 09:38 | PCM.HP.BLA ---
History and Physical Date of Admission: 09/18/23 TABATHA DOSS, is a 78 year old white male who presents for a cardiac catheterization following an abnormal stress test. He has a history of coronary artery disease with stenting to his RCA in 2012, stenting to his proximal LAD and mid RCA in 2013, and PTCA/JOB of proximal LAD ISR on 07/08/2018. This is superimposed upon a history of hyperlipidemia and hypertension and VANDANA currently using a CPAP device. He states that in December, he was walking across his lawn and got short of breath, and felt like he was going to pass out. He states that he went to [facility], and was then transferred to [facility] in [place]. He underwent a pacemaker at that time. He also underwent an echocardiogram which demonstrated an ejection fraction of 50-55%. His stress test at that time was negative for ischemia. Patient states that he was diagnosed with lung cancer 2 months ago. He is scheduled for surgery the beginning of May. From a cardiac standpoint, the patient is doing well. He denies any palpitations, chest pain, pressure or heaviness. He denies SOB, Orthopnea, and PND. He does acknowledge a cough. He does not have bleeding issues; no blood in urine, stool or nosebleeds. He denies any decrease in energy level, myalgias, or claudication. He does not have edema, or sudden weight gain. He does acknowledge lightheadedness with quick positional changes. He denies dizziness, syncopal or near syncopal episodes, and headaches. Intake Vital Signs See EMR Allergies See EMR Medications See EMR [facility] Medical History Abdominal aortic aneurysm without rupture Acquired left ventricular hypertrophy Alcohol abuse Atherosclerotic heart disease of [place] coronary artery without angina pectoris Coronary artery disease CPAP (continuous positive airway pressure) dependence CVA (cerebral vascular accident) Diastolic dysfunction Essential hypertension Former smoker GERD (gastroesophageal reflux disease) Headache Hearing loss, left Hearing loss, right History of TIA Hyperlipidemia Hypertension Hypertension Intractable nausea and vomiting Myocardial infarct Old myocardial infarction VANDANA (obstructive sleep apnea) Pacemaker Presence of permanent cardiac pacemaker Pure hypercholesterolemia PVD (peripheral vascular disease) Right bundle-branch block Second degree AV block, Mobitz type I Sleep apnea Wears hearing aid in both ears Surgical History History of coronary artery stent placement S/P coronary artery stent placement (~07/08/18) Family History Brother DiabetesBrother HypertensionBrother Cancer esophagealBrother Hip fractureSister Diabetes Kidney disease kidney failureSister Diabetes CAD (coronary artery disease) Hx of CABG Obesity HyperlipidemiaFather CAD (coronary artery disease) Myocardial infarction CHF (congestive heart failure)Daughter MigraineMother Cancer Lung cancer Myocardial infarction Social History Smoking Status: Former smoker how long ago did patient quit smokin alcohol intake: former year quit: 1992 substance use type: does not use caffeine: No what type of physical activity do you participate in: bicycling and other details: tredmill frequency: 3-4 times per week duration: 30-45 minutes/day seatbelt use: always do you feel safe at home: Yes ROS Const Const: Negative for fatigue, weakness, fever(s), headache(s), chills, frequent falls, weight gain or weight loss Eyes Eyes: Negative for blind spots, loss of peripheral vision, transient loss of vision, blurry vision, change in vision, double vision, floaters or tunnel vision ENT ENT: Negative for headache(s), dizziness, Nosebleed/epistaxis, balance problems or neck pain Cardio Chest Pain: No Palpitations: No Edema: None Muscle aches with walking: None Resp Respiratory: Positive for Cough; Negative for SOB with activity, SOB at rest or SOB orthopnea\SOB lying down GI GI: Negative nausea, vomiting, heartburn, bloating, vomiting blood/hematemesis, bright, red blood in stools or black,tarry stools Musc Musc: Negative for muscle aches/ myalgia, muscle weakness, joint pain or balance problems Neuro Neuro: Positive for lightheadedness (occasional with quick positional changes); Negative for dizziness, near syncope, syncope, orthostatic symptoms, frequent falls, headache(s), weakness, blurry vision or double vision Scotty Hematologic/Lymphatic: Negative for easy bleeding or easy bruising Endo Endo: Negative for fatigue Cardiology Exam Const Appearance: cooperative, healthy appearing, comfortable, no acute distress, well developed and well groomed Nutritional Appearance: well nourished and overweight Orientation: alert, awake and oriented x3 Head Head: normal to inspection Ears: hearing grossly normal bilaterally Nose: external nose normal Face and Sinus: face symmetric Eyes Eyelids: eyelids normal Conjunctivae: conjunctivae normal Pupils: PERRL EOM: EOM intact bilaterally Neck Neck: normal visual inspection, full ROM and no JVD Carotids: normal carotid upstroke Chest Chest inspection: normal inspection of the chest, symmetric chest movement, Pacemaker/ICD Yes left pectoral incision and normal respiratory effort; Negative cough Auscultation: Bilateral: Clear to Auscultation Cardio Rate: regular rate Rhythm: regular rhythm Heart sounds: S1 normal and S2 normal GI GI: normal to inspection, soft and bowel sounds present Neuro General: patient alert, patient awake, patient oriented x3, gait normal and moves all extremities Skin Skin: no rashes or lesions noted Extremities Pulses: Normal: Right Posterior Tibial Pulse, Left Posterior Tibial Pulse, Right Radial Pulse and Left Radial Pulse Lower Extremity Edema: None: Bilateral Psych Psychological: normal affect Supplemental Info Supplemental Information Echocardiogram from 10/18/2014: Interpretation Summary The study was technically difficult. Left ventricular systolic function is normal. The estimated ejection fraction is 60 %. Mild concentric left ventricular hypertrophy. Trivial mitral valve insufficiency. Trivial tricuspid valve insufficiency. Mild focal aortic valve thickening. Bubble contrast study negative for right to left interatrial shunt. No obvious intracardiac mass lesion / thrombus identified. Consider further evaluation for cardiac source of embolus with ASHISH if clinically indicated. Heart catheterization from 07/08/2018: CONCLUSIONS Elevated Left Ventricular End Diastolic Pressure left ventricula regional wall motion abnormalities with overall preserved LV systolic function LVEF: by LV gram 55 % LAD: stent: patent with eccentric 85% instent restenosis RCA: near the termination of the stent: hazy 50% stenosis RECOMMENDATIONS Medical therapy Risk factor modification Medical therapy Referred for immediate PCI CORONARY ANGIOGRAPHY DOMINANCE: Right Dominant LEFT HEART ASSESSMENT Left Ventricular Ejection Fraction: by LV Gram 55 % Inferior Mid: severe hypokinesis to akinesis Elevated Left Ventricular End Diastolic Pressure LVEDP: 26 mmHg LEFT MAIN: Angiographically normal LEFT ANTERIOR DECENDING ARTERY: PROX LAD: Previously placed stent has an instent eccenctric 85 % restenosis MID LAD: s/p the take off of DX2 there is 25% eccentric appearing stenosis DIAGONAL 1: Small Caliber Vessel: Proximal - 25-50 % Stenosis CIRCUMFLEX ARTERY: PROX CIRC: mild luminal irregularities MID CIRC: diffuse: eccentric: 10-25 % Stenosis RIGHT CORONARY ARTERY: mid to distal stents: patent with 10-25% eccentric appearing stenosis near the termination of the distal stent: hazy 50% stenosis PROX RCA: Mild luminal irregularities VALVE FINDINGS: Normal Aortic Valve function Normal Mitral Valve function AORTIC ROOT: Angiographically normal Cardiac intervention from 07/08/2018: CONCLUSIONS Successful PTCA/JOB of proximal LAD ISR utilizing a 2.5 x 10 Angiosculpt x 2, followed with a 3.0 x 16 Promus Syergy, post dilated with a 3.5 and 3.75 x 8 NC balloon; 85%-->0%, no dissection. Pt had identical Left arm and jaw pain with inflation. Medical management of complex mid LAD/DIAG bifurcating lesion unless or until pt has recurrent angina after maximal medical therapy. RECOMMENDATIONS Highly recommend quitting all tobacco products Follow up with primary blintze roller Risk factor modification ASA Indefinitley Plavix for at least 12 months Routine post interventional care Refer for Outpatient Cardiac Rehab Manual sheath removal per protocol Follow up with Dr. Lazo Successful Mynx closure device. Medical management of complex mid LAD/DIAG bifurcating lesion, as well as distal RCA ISR unless or until pt has recurrent angina after maximal medical therapy. D/w Dr Desai. Carotid duplex ultrasound from 12/12/2020: Interpretation Summary Irregular plaque at the proximal right internal carotid artery with less than 50% stenosis Less than 50% stenosis right external carotid artery Irregular calcific plaque at the proximal left internal carotid artery with 50 to 69% stenosis Less than 50% stenosis left external carotid artery Patent and antegrade vertebral arteries bilaterally No change from the previous examination of November 28, 2016 Abdominal aortic ultrasound 12-25-2021: Interpretation Summary Distal abdominal aortic aneurysm measuring 3.67 x 3.94 cm in diameter Normal aortic flow velocity Left common iliac artery 0.82 x 0.85 cm in diameter which is normal Right common iliac 0.63 x 0.8 cm diameter which is normal. Flow velocity slightly elevated within the right common iliac suggesting possible occlusive disease. Stress Test 07/2023: Pharmacologic myocardial perfusion stress test. 78-year-old male with a history of coronary disease status post PCI of the LAD mid right coronary artery in 2018. Resting EKG demonstrates sinus rhythm with a rate of 70 bpm. Resting blood pressure is 150/78 mmHg. 0.4 mg of regadenoson was infused per usual protocol followed by rapid intravenous saline flush injection. Continuous EKG monitoring was performed. The maximum heart rate was 85 bpm which was 59% of max impacted heart rate the maximum workload was 1 metabolic equivalent. At rest there were no ST or T wave changes noted to suggest ischemia and at peak infusion nonspecific ST changes were noted which did not meet the criteria for ischemia. No clinical angina is noted. The final blood pressure was 130/60 mmHg. Myocardial perfusion protocol. 11.8 mCi of technetium 99m sestamibi was injected at rest. 0.4 mg of regadenoson was infused per usual protocol. At peak infusion 36 mCi of technetium 99m sestamibi was injected stress images were obtained stress and rest images were reconstructed and compared in the short axis vertical long and horizontal long axis. Gated images were also obtained. Perfusion SPECT analysis: Review of the stress images demonstrate normal uptake of tracer noted in all areas of the myocardium except for the inferolateral wall which has perfusion defect as well as a small defect noted in the apex. The resting images similar demonstrated improved uptake of tracer noted in the apex with a persistent defect noted in the inferolateral wall. 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 Gated SPECT analysis: The gated ejection fraction is 62%. Conclusion: Abnormal pharmacologic myocardial perfusion stress test. Apical ischemia noted Inferolateral infarct present Preserved ejection fraction. Assessment and Plan Assessment and Plan (1) History of coronary artery stent placement: Status: Chronic Comment: PTCA OF RCA 02/06; PTCA of proximal LAD & mid RCA 09/10; PTCA/JOB of proximal LAD ISR on 07/08/2018; Plan: Patient has a history of coronary artery disease with stent placement. His most recent stress test from 01/11/2023 was negative for ischemia. His remote report received on 08/01/2023 demonstrated nonsustained ventricular tachycardia for 9 seconds at a maximum heart rate of 176 bpm. He underwent a stress test on 08/19/2023 which was abnormal. He will proceed with a cardiac catheterization to further assess this. Depending on results, further recommendations. (2) Abnormal stress Test: Will proceed with cardiac catheterization.
[2023-09-17 09:55] VITALS: BMI 30.2
[2023-09-18] VITALS (15 sets, daily range): BP systolic 110–145; BP diastolic 58–76; PULSE 60–75; RESP 14–18; TEMP 36.1–36.5; O2SAT 95–100
--- OUTSIDE RECORDS SUMMARY | 2023-09-18 06:56 | XMS RPT_ITS | CCD ---
Author Name Unknown Address [address] [place] [address] Organization [facility] Care Team Providers Care Payroll Benefits Clerk Name Role Phone KHASHU, ABAHY Unavailable Unavailable KHASHU, ABAHY Unavailable Unavailable NO REFERRING Unavailable Unavailable KASSIE NAGY Unavailable Unavailable JUSTIN ANDERSON Unavailable Unavailable Jada Peters MD Primary Care Provider [phone] ASHER GAITAN Attending Unavaila ble JADA PETERS Primary Care Unavailable CALI HERNANDEZ Admitting Unavai labCALI Jewell Referring Unavai lable JADA PETERS Primary Care Unavailable JADA PETERS Primary Care Unavailable SYSTEM, PROVIDER NOT IN Referring Unavaila ALIVIA Devi Consulting Unavaila EDWARD Horton Admitting Unavailable ELIECER RICHARD Attending Unavailable ASHER GAITAN Attending Unavaila ble JADA PETERS Primary Care Unavailable Eloina Claros RN Unavailable Unavailable Prahalley FRANCO/Pj ACE Unavailable Jada Peters MD Primary Care Provider [phone] Li Coppola MD Unavailable [phone] JADA PETERS Referring Unavailable LI COPPOLA Attending Unavailable JADA PETERS Primary Care Unavailable JADA PETERS Referring Unavailable LI COPPOLA Attending Unavailable JADA PETERS Primary Care Unavailable LI COPPOLA Attending Unavailable LI COPPOLA Referring Unavailable JADA PETERS Primary Care Unavailable AMARILYS NAPOLES Referring Unavailable AMARILYS NAPOLES Attending Unavailable JADA PETERS Primary Care Unavailable JADA PETERS Referring Unavailable LI COPPOLA Attending Unavailable LI COPPOLA Admitting Unavailable CONSULT, ANESTHESIA PAIN MED Consulting Elizabeth vailable JADA PETERS Primary Care Unavailable LI COPPOLA Admitting Unavailable LI COPPOLA Attending Unavailable KATHRYN TOBIAS Referring Unavailable VANESAI, JADA Primary Care Unavailable LI COPPOLA Admitting Unavailable LI COPPOLA Attending Unavailable JADA PETERS Primary Care Unavailable VANESAILEEJADA Referring Unavailable JATINDERKATHRYN FIORE Referring Unavailable RADHATTI, JADA Primary Care Unavailable JADA PETERS Referring Unavailable LI COPPOLA Attending Unavailable JADA PETERS Primary Care Unavailable PJ ARDON Referring Unavailable KATHRYN TOBIAS Attending Unavailable JADA PETERS Primary Care Unavailable JADA PETERS Referring Unavailable VANESAI, JADA Primary Care Unavailable KATHRYN TOBIAS Attending Unavailable LI COPPOLA Referring Unavailable LI COPPOLA Attending Unavailable JADA PETERS Primary Care Unavailable RADHATTILEEJADA Primary Care Unavailable VANESAILEEJADA Referring Unavailable KATHRYN TOBIAS Attending Unavailable LI COPPOLA Attending Unavailable KATHRYN TOBIAS Referring Unavailable VANESAI, JADA Primary Care Unavailable EMRON MCKEON Referring Unavailabl e MERON MCKEON Attending Unavailabl e JADA PETERS Primary Care Unavailable JADA PETERS MD Primary Care Unavailable JADA PETERS MD Consulting Unavailable JADA PETERS MD Attending Unavailable JADA PETERS MD Admitting Unavailable PROVIDER, UNKNOWN Consulting Unavailable PROVIDER, UNKNOWN Consulting Unavailable JADA PETERS MD Primary Care Unavailable JADA PETERS MD Consulting Unavailable JADA PETERS MD Attending Unavailable JADA PETERS MD Admitting Unavailable PROVIDER, UNKNOWN Consulting Unavailable PROVIDER, UNKNOWN Consulting Unavailable DEMETRI CORDOVA Primary Care Unavailable DEMETRI [...] UNKNOWN Consulting Unavailable PROVIDER, UNKNOWN Consulting Unavailable CSERNYIK, JOHN DO Primary Care Unavailable CSEMOUSTAPHA, JOHN DO Attending Unavailable JOHN SAHU DO Admitting Unavailable JADA PETERS MD Referring Unavailable JADA PETERS MD Consulting Unavailable PROVIDER, UNKNOWN Consulting Unavailable PROVIDER, UNKNOWN Consulting Unavailable JADA PETERS MD Admitting Unavailable JADA PETERS MD Primary Care Unavailable JADA PETERS MD Consulting Unavailable JADA PETERS MD Attending Unavailable PROVIDER, UNKNOWN Consulting Unavailable PROVIDER, UNKNOWN Consulting Unavailable Allergies Allergy Classification Reported Allergen(s) Allergy Type Date of Onset Reaction(s) Facility (12 sources) Penicillins; Translations: [PENICILLINS] Propensity to adverse reactions (disorder) 6 Anaphylaxis [facility] Repository (1 source) Penicillins Drug allergy (disorder) [facility] Rep[facility] Medications Current Medications Medication Drug [...] 10 mg, Oral, DAILY, First dose on Marleni 05/29/23 at 1045, Until Discontinued Problems Active [...] Chronic Coronary atherosclerosis and other heart disease (8 sources) Coronary arteriosclerosis; Translations: [Atherosclerotic heart disease of eyak coronary artery without angina pectoris] Onset: 6 01-10-2023 Chronic Diabetes mellitus without complication (2 sources) Latent autoimmune diabetes mellitus in adult; Translations: [Other specified diabetes mellitus without complications] Onset: 6 01-15-2016 Chronic Diseases of white blood cells (3 sources) Leukocytosis; Translations: [Elevated white blood cell count, unspecified] Onset: 3 05-30-2023 Chronic Disorders of lipid metabolism (6 sources) Hyperlipidemia; Translations: [Hyperlipidemia, unspecified] Onset: 6 01-15-2016 Chronic Esophageal disorders (4 sources) Gastroesophageal reflux disease; Translations: [Gastro-esophageal reflux disease without esophagitis] Onset: 3 05-27-2023 Chronic Essential hypertension (6 sources) Hypertensive disorder; Translations: [Essential (primary) hypertension] Onset: 6 01-15-2016 Chronic Nonspecific chest pain (3 sources) Chest pain; [...] Dyspnea; Translations: [Shortness of breath] Onset: 3 06-15-2023 Episodic Other lower respiratory disease (1 source) [...] not elsewhere classified] Onset: 3 05-27-2023 Episodic Unclassified (1 source) Unknown / UNK(Unknown) Onset: 3 Past or Other Problems Problem Classification Problem Date Documented Date Episodic/Chronic Administrative/social admission (4 sources) Patient encounter status; Translations: [Counseling, unspecified] Onset: 05-27-2023 Resolved: 05-30-2023 05-27-2023 Episodic Lymphadenitis (3 sources) Mediastinal lymphadenopathy; Translations: [Localized enlarged lymph nodes] Onset: 04-28-2023 04-28-2023 Episodic Mood disorders (8 sources) Mood disorders Onset: 04-22-2023 Resolved: 06-17-2023 04-22-2023 Neoplasms of unspecified nature or uncertain behavior (4 sources) Neoplastic disease; Translations: [Neoplasm of unspecified behavior of unspecified site] Onset: 05-06-2023 05-06-2023 Episodic Noninfectious gastroenteritis (1 source) Noninfective gastroenteritis and colitis, unspecified; Translations: [Noninfective gastroenteritis and colitis, unspecified] Onset: 12-06-2022 Episodic Other nervous system disorders (5 sources) Acute postoperative pain; Translations: [Other acute postprocedural pain] Onset: 05-27-2023 Resolved: 05-30-2023 05-27-2023 Episodic Residual codes; unclassified (2 sources) Other specified health status; Translations: [Other specified health status] Onset: 05-21-2023 Episodic Results Test Name Value Interpretation Reference Range Facil ity Vital Signs Date Time Vital Sign Value Performing Clinician Facility 05-30-2023 08:29-0400 Body temperature 98.01 [degF] Li Coppola MD Work Phone: [facility] 05-30-2023 08:29-0400 Diastolic blood pressure 72 mm[Hg] Li Coppola MD Work Phone: [facility] 05-30-2023 08:29-0400 Heart rate 101 /min Li Coppola MD Work Phone: [facility] 05-30-2023 08:29-0400 Respiratory rate 24 /min Li Coppola MD Work Phone: [facility] 05-30-2023 08:29-0400 SaO2% (BldA) [Mass fraction] 93 % Li Coppola MD Work Phone: [facility] 05-30-2023 08:29-0400 Systolic blood pressure 158 mm[Hg] Li Coppola MD Work Phone: [facility] 05-30-2023 06:54-0400 Body mass index (BMI) [Ratio] 29.62 kg/m2 Li Coppola MD Work Phone: [facility] 05-30-2023 06:54-0400 Body weight 90.99 kg Li Coppola MD Work Phone: [facility] 05-28-2023 05:21-0400 Body height 175.3 cm Li Coppola MD Work Phone: [facility] 05-06-2023 11:05-0400 Body mass index (BMI) [Ratio] 30.11 kg/m2 Li Coppola MD Work Phone: [facility] 05-06-2023 11:05-0400 Body temperature 97.2 [degF] Li Coppola MD Work Phone: [phone] 05-06-2023 11:05-0400 Body weight 89.81 kg Li Coppola MD Work Phone: [facility] 05-06-2023 11:05-0400 Diastolic blood pressure 68 mm[Hg] Li Coppola MD Work Phone: [facility] 05-06-2023 11:05-0400 Heart rate 67 /min Li Coppola MD Work Phone: [facility] 05-06-2023 11:05-0400 Respiratory rate 18 /min Li Coppola MD Work Phone: [facility] 05-06-2023 11:05-0400 SaO2% (BldA) [Mass fraction] 95 % Li Coppola MD Work Phone: [facility] 05-06-2023 11:05-0400 Systolic blood pressure 155 mm[Hg] Li Coppola MD Work Phone: [facility] 04-28-2023 15:05-0400 Diastolic blood pressure 70 mm[Hg] Li Coppola MD Work Phone: [facility] 04-28-2023 15:05-0400 Heart rate 81 /min Li Coppola MD Work Phone: [facility] 04-28-2023 15:05-0400 Respiratory rate 18 /min Li Coppola MD Work Phone: [facility] 04-28-2023 15:05-0400 SaO2% (BldA) [Mass fraction] 93 % Li Coppola MD Work Phone: [facility] 04-28-2023 15:05-0400 Systolic blood pressure 145 mm[Hg] Li Coppola MD Work Phone: [facility] 04-28-2023 14:42-0400 Body temperature 97.59 [degF] Li Coppola MD Work Phone: [facility] 04-28-2023 11:25-0400 Body mass index (BMI) [Ratio] 29.65 kg/m2 Li Coppola MD Work Phone: [facility] 04-28-2023 11:25-0400 Body weight 88.45 kg Li Coppola MD Work Phone: [facility] 01-14-2023 12:06-0400 Body temperature 98.01 [degF] Cali Peoples DO Work Phone: [facility] 01-14-2023 12:06-0400 Diastolic blood pressure 86 mm[Hg] Cali Peoples DO Work Phone: [facility] 01-14-2023 12:06-0400 Heart rate 77 /min Cali Peoples DO Work Phone: [facility] 01-14-2023 12:06-0400 Respiratory rate 17 /min Cali Peoples DO Work Phone: [facility] 01-14-2023 12:06-0400 SaO2% (BldA) [Mass fraction] 96 % Cali Peoples DO Work Phone: [facility] 01-14-2023 12:06-0400 Systolic blood pressure 134 mm[Hg] Cali Peoples DO Work Phone: [facility] 01-09-2023 22:00-0400 Body height 175.3 cm Cali Peoples DO Work Phone: [facility] 01-09-2023 22:00-0400 Body mass index (BMI) [Ratio] 28.38 kg/m2 Cali Peoples DO Work Phone: [facility] 01-09-2023 22:00-0400 Body weight 87.18 kg Cali Hernandez DO Work Phone: [facility] Encounters Encounter Date Encounter Type Care Provider Facility Start: 09-03-2023 ambulatory JADA CORNELIUS [facility] Start: 08-20-2023 ambulatory JADA Trejo ty:[facility] Start: 07-30-2023 End: 07-30-2023 ambulatory JADA CORNELIUS [facility] Start: 07-09-2023 End: 07-09-2023 Emergency department patient visit JOHN ASHER KIKAAKGEOVANY [facility] Start: 06-17-2023 [facility] Start: 06-17-2023 End: 06-17-2023 Subsequent hospital visit by physician Amarilys Napoles APRN-ROVING CHANGER Work Phone: [facility] Procedures Date Procedure Procedure Detail Performing Clinician Start: 08-20-2023 Follow-up visit Follow-up KATHRYN TOBIAS Start: 06-17-2023 Radiologic exam ches t 2 views Amarilys Napoles CLINICAL TRIAL DATA MANAGER-ROVING CHANGER Work Phone: Start: 05-30-2023 Radiologic exam ches t single view Amarilys Napoles CLINICAL TRIAL DATA MANAGER-ROVING CHANGER Work Phone: Start: 05-30-2023 Radiologic exam ches t single view Eloina Carey CLINICAL TRIAL DATA MANAGER-ROVING CHANGER Work Phone: Start: 05-30-2023 Assay of magnesium Kalee Mckeon PAC Work Phone: Start: 05-30-2023 CBC AND ELECTRONIC DIFF Meron Wang Diefenderfer PAC Work Phone: Start: 05-30-2023 Complete blood count with white cell differential, automated Meron Wang Diefenderfer PAC Work Phone: Start: 05-29-2023 Radiologic exam ches t single view Meron Maefenderfer PAC Work Phone: Start: 05-29-2023 Assay of magnesium Kaleelisa Wang Diefenderfer PAC Work Phone: Start: 05-29-2023 [...] Radiologic exam ches t single view Meron Maefenderfer PAC Work Phone: Start: 05-28-2023 End: 05-28-2023 Assay of urea nitrogen quantitative Meron Wang Diefenderfer PAC Work Phone: Start: 05-28-2023 CBC AND ELECTRONIC DIFF Meron Wang Diefenderfer PAC Work Phone: Start: 05-28-2023 Complete blood count with white cell differential, automated Meron Wang Diefenderfer PAC Work Phone: Start: 05-28-2023 End: 05-28-2023 Brncc incl fluor gdnce dx w/cell washg spx Li Coppola MD Work Phone: Start: 05-28-2023 End: 05-28-2023 Thoracoscopy w/lobectomy single lobe Li Coppola MD Work Phone: Start: 05-28-2023 End: 05-28-2023 Thorcoscpy w/mediastinl & regionl lymphdenectomy Li Coppola MD Work Phone: Start: 05-28-2023 End: 05-28-2023 CONTINUOUS CARDIAC MONITORING STRIP Other Other Start: 05-28-2023 ABORH TYPE RECONFIRMATION Cornelio Stevens MD Work Phone: Start: 05-06-2023 Antibody screen [facility] Advertising Copy Writer Bsh 2 Start: 05-06-2023 Antibody screen JADA FRAN Plan of Treatment Date Care Activity Detail Author Start: 2030 Tetanus vaccination [facility] Start: 07-30-2023 End: 07-30-2023 Patient encounter procedure 07/30/2023 11:40 AM EST Office Visit Division of Medical Oncology at [facility] [address] [place] [address] Kathryn Tobias MD [address] [place] [address] Division of Medical Oncology at [facility] Start: 07-12-2023 Hemoglobin A1c measurement A1C [facility] Start: 06-17-2023 End: 06-17-2023 Patient encounter procedure 06/17/2023 12:15 PM EST Office Visit Division of Thoracic Surgery at [facility] [address] [place] [address] Li Coppola MD [address] [place] [address] Division of Thoracic Surgery at [facility] Start: 06-11-2023 End: 06-11-2023 Brnchsc incl fluor gdnce dx w/cell washg spx BRONCHOSCOPY FLEXIBLE DIAGNOSTIC NSCLC of right lung 06/11/2023 11:15 AM EST [facility] Start: 06-11-2023 End: 06-11-2023 Evaluation and management of inpatient [facility] PERIOP Immunizations Immunization Date Immunization Notes Care Provider Fa cility 04-22-2022 influenza virus vaccine, unspecified formulation Li Coppola MD Work Phone: [facility] Payers Date Payer Category Payer Medicare [id number] 2022 Medicare [id number] 2013 Medicare [id number] 1945 Unknown [id number] 2.16. 840.1.328239.3.579.2.902 1945 Unknown [id number] 2. 840.1.654989.3.579.2.902 1945 Unknown [id number] 2. 840.1.265389.3.579.2.902 1946 Unknown [id number] 2. 840.1.391126.3.579.2.902 1946 Unknown [id number] 2.. 840.1.739324.3.579.2.594 1946 Unknown [id number] 2. 840.1.779818.3.579.2.594 1946 Unknown [id number] 2. 840.1.884737.3.579.2.594 1946 Unknown [id number] 2.16 840.1.947502.3.579.2.594 1946 Unknown [id number] 2.16. 840.1.871633.3.579.2.594 1946 Unknown [id number] 2.16 840.1.024278.3.579.2.594 1946 Unknown [id number] 2. 840.1.951795.3.579.2.594 1946 Unknown [id number] 2.16. 840.1.604366.3.579.2.594 1946 Unknown [id number] 2.. 840.1.766693.3.579.2.594 1946 Unknown [id number] 2.16. 840.1.391026.3.579.2.594 1946 Unknown [id number] 2.. 840.1.995882.3.579.2.594 1946 Unknown [id number] 2.. 840.1.784220.3.579.2.594 1946 Unknown [id number] 2.. 840.1.321902.3.579.2.594 1946 Unknown [id number] 2.. 840.1.276691.3.579.2.594 1946 Unknown [id number] 2. 840.1.514127.3.579.2.594 1946 Unknown [id number] 2.. 840.1.298760.3.579.2.594 1946 Unknown [id number] .16.8 40.1.730094.3.579.2.651 1946 Unknown [id number] .16.8 40.1.731997.3.579.2.651 1946 Unknown [id number] 2.16.8 40.1.344853.3.579.2.651 1946 Unknown [id number] 2.16.8 40.1.704626.3.579.2.651 1946 Unknown [id number] 2.16.84 0.1.243822.3.579.2.651 1946 Unknown [id number] 2.16.84 0.1.261151.3.579.2.651 1946 Unknown [id number] 2.16.84 0.1.655847.3.579.2.651 Medicare [id number] Social History Date Type Detail Facility Start: 01-16-2016 End: 04-16-2023 Tobacco smoking status NHIS Ex-smoker [facility] End: 01-15-1993 History of tobacco use Current smoker [facility] End: 01-15-1993 History of tobacco use Cigarette Smoker [facility] Start: 01-13-2023 Alcohol intake Current non-drinker of alcohol (finding) [facility] Start: 01-13-2023 End: 06-17-2023 History of Social function [facility] Start: 01-13-2023 End: 06-17-2023 Tobacco use panel [facility] Start: 1945 Sex Assigned At Not on file [facility] Start: 01-09-2023 Gender identity Identifies as male gender (finding) [facility] Start: 01-15-2023 Sexual orientation Heterosexual (finding) [facility] Start: 04-16-2023 Tobacco use and exposure Smokeless tobacco non-user [facility] Start: 04-23-2023 End: 06-17-2023 Alcohol intake Ex-drinker (finding) [facility] How hard is it for y ou to pay for the very basics like food, housing, medical care, and heating Not hard at all [facility] In the past 12 month s, was there a time when you were not able to pay the mortgage or rent on time? No [facility] How often to you hav e a drink containing alcohol? Never [facility] (I/We) worried whebhargav er (my/our) food would run out before (I/we) got money to buy more. Never true [facility] Medical Equipment Procedure Code Equipment Code Equipment Origin al Text Equipment Identifier Dates Envelope Anti-Bacterial Aigis/Tyrx Pacer Resorbable Mesh - [id number], [id number] FDA Start: 01-13-2023 Pacer [id number] Viridiana re Xt Dr Mri - [id number] , [id number] FDA Start: 01-13-2023 Lead 5076-52 Cap sure Fix - [id number], [id number] FDA Start: 01-13-[id number] Connors [id number] Start: 01-12-2023 Mdt 5076 Capsure fix Novus [id number] Start: 01-12-2023 Clinical Notes 01-09-2023 to 05-30-2023 Nursing Notes - Abby Banks RN - 05/30/2023 12:35 PM EDTNursing Notes - Abby Banks RN - 05/30/2023 12:35 PM EDTNursing Notes - Amarilys Valentine RN - 05/30/2023 10:39 AM EDTMedications Note Date & Type Note Facility 05-30-2023 Nurse Note AVS reviewed with patient. All questions answered. [facility] 05-30-2023 Miscellaneous Notes AVS reviewed with patient. All questions answered. 05/30/23 1038 Referral Information Arrived From operating room Final Discharge Planning Discharge Disposition Home CM/SW AVS Portion Completed Yes Plan Plan Anticipating discharge to home today Patient/Family In Agreement With Plan yes Plan Comments Daughter will provide transportation home. Transport Request Mode of Transfer Private Vehicle Kassie Inpatient PCR Discharge Note Patient discussed in medical rounds [...] Summary. [facility] [address] [facility] [phone] Follow up on 06/17/2023 arrive for your walk in chest x-ray 30 min before your appt Division of Thoracic Surgery at [facility] [address] [place] [address] Follow up on 06/17/2023 Post-op appointment with [...] and assistance is needed, please page the credit administration officer PCRM at [phone]. DECLAN Harris, RN, ACM-RN Patient Care Diesel Fitter Mechanic 05/29/23 1041 Referral Information Arrived From operating room Readmission Information Was patient readmitted within 30 Days? Yes Information Source Information Source patient Information Source Name Tabatha (patient) Information Source Number See demographics Outpatient Providers Outpatient Providers Updated In IHIS Yes Contact Information Assistant Golf Course Superintendent/SW Added to Care Team Yes This [employer] Police Officer is Primary Assistant Golf Course Superintendent/SW Yes Assistant Golf Course Superintendent Name Amarilys Gomez Assistant Golf Course Superintendent's Social Work Contact Name Joana Armstrong Tank Officer's Living Environment Lives With spouse Living Arrangements [...] Retired Employment/Financial Concerns no Source Of Income pension/detention;social security Financial Concerns none Insurance Medical Insurance Verified Yes Prescription Coverage Yes Pharmacy updated in IHIS Yes Initial Discharge Planning Home Care Services (BENCH JEWELER) No Home Therapies (BENCH JEWELER) None DME (BENCH JEWELER) Straight cane Medical Supplies (BENCH JEWELER) Blood Pressure Monitor Patient Goal for Discharge [...] PCRFelipe and THOMAS Armstrong met with Tabatha Penny to complete the initial assessment. Explained role and function of PCRM in multidisciplinary team. Contact number provided for questions. Demographic information reviewed with patient/family and confirmed as correct. Reason for Admission: 78 y.o. male former smoker with history of AAA, [place] (s/p stent placement x 4 on plavix), AV block s/p pacemaker placement, TIA, VANDANA who was initially referred by Dr. Tobias for surgical evaluation of right upper lobe squamous cell carcinoma. To review, he underwent a biopsy of the right upper lobe in [place] which demonstrated NSCLC favoring squamous cell carcinoma. [...] Planned DECLAN Harris, RN, ACM-RN Patient Care Diesel Fitter Mechanic No acute change noted from previous assessment at this time unless otherwise indicated on the flow sheet and/or notes. Problem: Patient Care Overview Goal: Plan of Care Review Outcome: Ongoing On admission to [facility], from PACU a dual RN initial assessment of skin condition was performed by Jagruti Couch RN and Irene Sesay RN. Skin Assessment: Skin within defined limits:Yes. Right sided chest tube intact w/ +1 air leak, incisions with dermabond. Galloway in place. 2 PIV intact. Alfredito Score: 23 LDA Added:No Jagruti Khoa, RN Thoracic Surgery Operative Report Date: 05/28/23 Preoperative Diagnosis: right upper lobe squamous cell carcinoma Postoperative Diagnosis: right upper lobe squamous cell carcinoma Procedures Performed: Flexible Bronchoscopy Robotic-Assisted Thoracoscopic Right Upper Lobectomy Right Thoracoscopic Mediastinal and regional Lymph Node Dissection Intercostal Nerve Blocks. Surgeon: Li Coppola M.D. Derrick Helper: Alessandra Mace DO (fellow), Meron Stahl PA-C. [...] Permanent SURG PATH SURG PATH REQUEST Li oCppola MD 05/28/2023 0853 7 : Level 7 [...] Li Coppola MD 05/28/2023 1024 Drains: 28 Dominican Chest Tube. Complications: None. Disposition: The patient [...] transferred to the operating room at the [facility]. Intravenous lines and an arterial line [...] located in the posterior apical segment. The BeanJockeyi Xi robot was then docked to the [...] was no evidence of bleeding. A 28 Dominican straight chest tube was placed through the [...] DO MPH Cardiothoracic Surgery Fellow Pager ID #[phone] documented in this encounter [facility] 05-30-2023 Nurse Note 05/30/23 1038 Referral Information Arrived From operating room Final Discharge Planning Discharge Disposition Home SEMAJ/THOMAS ORELLANA Portion Completed Yes Plan Plan Anticipating discharge to home today Patient/Family In Agreement With Plan yes Plan Comments Daughter will provide transportation home. Transport Request Mode of Transfer Private Vehicle Kass[facility] Discharge Note Patient discussed in medical rounds [...] Visit Summary. [facility] [address] [phone] Follow up on 06/17/2023 arrive for your walk in chest x-ray 30 min before your appt Division of Thoracic Surgery at [facility] [address] [address] Follow up on 06/17/2023 Post-op appointment with [...] and assistance is needed, please page the credit administration officer PCRM at [phone]. DECLAN Harris, RN, ACM-RN Patient Care Diesel Fitter Mechanic [facility] 05-30-2023 History of Present illness Narrative Chest Tube Removal Note Right chest tube output 390 ml/24 hours, no air leak. Right chest tube removed per protocol. Patient tolerated well. Purse string suture tied. Dry dressing applied to site. CXR pending. JOHN Escoabr #[id number] Anesthesia Acute Pain Progress Note S: Patient [...] sign off at this time. Please call [phone] or page [phone] with any questions or concerns. Gerald Valentine MD Anesthesiology PGY1 Inpatient Progress Note: Tabatha Penny Date: 05/29/2023 12:17 PM Chief Complaint: Squamous cell carcinoma of right lung Primary Surgeon: Li Coppola MD LIME: Tabatha Penny is a 78 y.o. male former smoker with history of AAA, NJ (s/p stent placement x 4 on plavix), AV block s/p pacemaker placement, TIA, VANDANA who was initially referred by Dr. Tobias for surgical evaluation of right upper lobe squamous cell carcinoma. To review, he underwent a biopsy of the right upper lobe in [place] which demonstrated NSCLC favoring squamous cell carcinoma. [...] Cad (Coronary Artery Disease) H/X of 4 NJ's s/p 5 stent placements. Continue aspirin. Hold [...] plan of care discussed with JOHN Richards #[id number] Introduced self and role of the level vial inspector to patient/family. 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 He reports that his daughter and neighbors and keeping an eye on her but that he is eager to get back to her. He reports that it is also important to him to get home to his dog who is giving his family a hard time as he is not there. Offered active listening, comfort, support and prayer. Patient/family encouraged to request a level vial inspector as needed. Chaplains are available in-house 24 hours a day and 7 days a week. For urgent matters in the Kassie, please page [phone]. If the request is not urgent, please enter a consult. Consults are responded to within 24 hours. Patient Transporter Kaitlni Bray, JESSIiv,MAHL, [facility] Senior Patient Transporter, Kassie 12, 18, 19 17/02 On-Call Pager [facility]assie ([phone]) 05/29/23 1104 Clinical Encounter Type Visited With Patient Visit Type Introduction Pastoral Time Spent 45 min Mandaen Encounters Mandaen Needs Prayer Spiritual Assessment Spiritual Observation Spirituality helpful Emotional Observation Coping well Hope Observation Specific hope focus Support Observation By Family;By Friend Interventions Provided Active listening;Prayer;Supportive presence Facilitated Verbalization of feelings Explored Expectations;Family issues Safety Fire Boss Education Safety Fire Boss Service Available Yes Educated Patient Outcomes Patient [...] and lymph node dissection per Bailey Pearce, CLINICAL TRIAL DATA MANAGER-ROVING CHANGER note on 05/29/23. SW met with patient to introduce self, explain social media marketing specialist role during inpatient stay, and answer questions. Patient was alert and oriented x3 and agreeable to SW visit. Contact Information Assistant Golf Course Superintendent Name: Amarilys Gomez Assistant Golf Course Superintendent's Social Work Contact Name: Joana Armstrong Tank Officer's Advance Directives Type of Advance Directives Currently on File: healthcare power of insurance defense attorney, living will Patient Requesting to Complete/Update the Following Advance Directive: Not at this time Advance Directive Discussion: Per chart review, patient already has completed Living Will and Healthcare Power of Epic Willow Specialist (HCPOA) on file. SW reviewed the document(s) with patient and they confirmed documents are current and reflective of their wishes. The following individual(s) are named as decision makers in the patient's HCPOA: Primary Agent: spouse, Francia Penny, (ph: [phone]) First Alternate Agent: daughter, Rosie Penny, (ph: [phone]) Legal NOK: Spouse, Francia Penny, (ph: [phone]) Emotional/Psychological Affect: no deficits noted Mood: congruent [...] Retired Employment/Financial Concerns: no Source Of Income: pension/detention, social security Financial Concerns: none Food Insecurity [...] place to sleep or slept in a retirement (including now)?: No Utilities In the past [...] (4:30pm-8am) and Weekend SW needs please call [phone] or page [phone] Inpatient Progress Note: Tabatha Penny Date: 05/29/2023 9:33 AM Chief Complaint: Squamous cell carcinoma of right lung Primary Surgeon: Li Coppola MD LIME: Tabatha Penny is a 78 y.o. male former smoker with history of AAA, NJ (s/p stent placement x 4 on plavix), AV block s/p pacemaker placement, TIA, VANDANA who was initially referred by Dr. Tobias for surgical evaluation of right upper lobe squamous cell carcinoma. To review, he underwent a biopsy of the right upper lobe in [place] which demonstrated NSCLC favoring squamous cell carcinoma. [...] recommendations. JOHN Warren documented in this encounter [facility] 05-29-2023 Nurse Note 05/29/23 1041 Referral Information Arrived From operating room Readmission Information Was patient readmitted within 30 Days? Yes Information Source Information Source patient Information Source Name Tabatha (patient) Information Source Number See demographics Outpatient Providers Outpatient Providers Updated In IS Yes Contact Information Assistant Golf Course Superintendent/SW Added to Care Team Yes This Plain Clothes Police Officer is Primary Assistant Golf Course Superintendent/SW Yes Assistant Golf Course Superintendent Name Amarilys Gomez Assistant Golf Course Superintendent's Social Work Contact Name Joana Armstrong Tank Officer's Living Environment Lives With spouse Living Arrangements [...] Retired Employment/Financial Concerns no Source Of Income pension/detention;social security Financial Concerns none Insurance Medical Insurance Verified Yes Prescription Coverage Yes Pharmacy updated in [facility] Yes Initial Discharge Planning Home Care Services (BENCH JEWELER) No Home Therapies (BENCH JEWELER) None DME (BENCH JEWELER) Straight cane Medical Supplies (BENCH JEWELER) Blood Pressure Monitor Patient Goal for Discharge [...] Assessment MARCIE and THOMAS Armstrong met with [facility] to complete the initial assessment. Explained role and function of PCRM in multidisciplinary team. Contact number provided for questions. Demographic information reviewed with patient/family and confirmed as correct. Reason for Admission: 78 y.o. male former smoker with history of AAA, NJ (s/p stent placement x 4 on plavix), AV block s/p pacemaker placement, TIA, VANDANA who was initially referred by Dr. Tobias for surgical evaluation of right upper lobe squamous cell carcinoma. To review, he underwent a biopsy of the right upper lobe in [place] which demonstrated NSCLC favoring squamous cell carcinoma. [...] Planned DECLAN Harris, RN, ACM-RN Patient Care Diesel Fitter Mechanic [facility] 05-29-2023 Consult note Formatting of th [...] forearm. The right hand is WNL. Assessment [facility] seen and evaluated for peripheral IV insertion [...] 2: Location: forearm, anterior, right Device/Lot Number: [id number] catheter system Gauge/Length: 20 gauge;1 3/4 in length Unsuccessful Insertion Attempts: 0 Unsuccessful Attempt Location/Site: Pain Prevention/Patient Tolerance: distraction;tolerated well Removal: Additional Comments: Lumen 3: Peripheral IV Present on Admission: (Retired/Read Only) Location: (Retired/Read Only) Device: (Retired/Read Only) Gauge/Length: Tire And Tube Repairer/Lot Number: Unsuccessful Insertion Attempts: (Retired/Read Only) Unsuccessful [...] care of this patient. Vascular Access Team [id number] [facility] 05-29-2023 Consult note Formatting of th [...] 2: Location: forearm, anterior, right Device/Lot Number: [id number] catheter system Gauge/Length: 20 gauge;1 3/4 in length Unsuccessful Insertion Attempts: 0 Unsuccessful Attempt Location/Site: Pain Prevention/Patient Tolerance: distraction;tolerated well Removal: Additional Comments: Lumen 3: Peripheral IV Present on Admission: (Retired/Read Only) Location: (Retired/Read Only) Device: (Retired/Read Only) Gauge/Length: Tire And Tube Repairer/Lot Number: Unsuccessful Insertion Attempts: (Retired/Read Only) Unsuccessful [...] care of this patient. Vascular Access Team [id number] documented in this encounter [facility] 05-29-2023 Plan of care note No acute change noted from previous assessment at this time unless otherwise indicated on the flow sheet and/or notes. Problem: Patient Care Overview Goal: Plan of Care Review Outcome: Ongoing [facility] 05-28-2023 Nurse Note On admission to [facility], from PACU a dual RN initial assessment of skin condition was performed by Jagruti Couch RN and Irene Sesay RN. Skin Assessment: Skin within defined limits:Yes. Right sided chest tube intact w/ +1 air leak, incisions with dermabond. Galloway in place. 2 PIV intact. Alfredito Score: 23 LDA Added:No Jagruti Couch RN [facility] 05-28-2023 Surgery Postoperative evaluation and management note Thoracic Surgery Operative Report Date: 05/28/23 Preoperative Diagnosis: right upper lobe squamous cell carcinoma Postoperative Diagnosis: right upper lobe squamous cell carcinoma Procedures Performed: Flexible Bronchoscopy Robotic-Assisted Thoracoscopic Right Upper Lobectomy Right Thoracoscopic Mediastinal and regional Lymph Node Dissection Intercostal Nerve Blocks. Surgeon: Li Coppola M.D. Derrick Helper: Alessandra Mace DO (fellow), Meron Stahl PA-C. [...] Li Coppola MD 05/28/2023 1024 Drains: 28 Dominican Chest Tube. Complications: None. Disposition: The patient [...] transferred to the operating room at the [facility]. Intravenous lines and an arterial line [...] located in the posterior apical segment. The BeanJockeyi Xi robot was then docked to the [...] was no evidence of bleeding. A 28 Dominican straight chest tube was placed through the [...] DO MPH Cardiothoracic Surgery Fellow Pager ID #[phone] [facility] Work Phone: 05-28-2023 Hospital Discharge instructions Amarilys Valentine RN - 05/28/2023 8:54 AM EDT Images from the original note were not included. Your Assistant Golf Course Superintendent (PCRM) has arranged your appointments for follow [...] the hospital. This call will come from [phone]. If you are unable to answer or do not receive the automated call, please call [phone] to complete this important evaluation. By answering the phone evaluation, a [facility]assie nurse will be notified if you have any questions or concerns and call you back. If you have an immediate medical need call your doctor s office, or if you have a medical emergency call 911. Amarilys Napoles APRN-ROVING CHANGER - 05/28/2023 8:55 AM EDT RESTART YOUR [...] hours a day, 7 days a week: [phone] Outpatient Assistant Golf Course Superintendent: Philippe Alonso [phone] Outpatient Tank Officer: Ann Marie George [phone] Inpatient Assistant Golf Course Superintendent: Amarilys Valentine [phone] Inpatient Tank Officer: Joana Gill [phone] Amarilys Valentine RN - 05/28/2023 8:56 AM [...] be sent through Care Everywhere.Incentive Spirometer ([facility]) (Lithuanian)Pain Post-Surgery: Acute (Lithuanian)documented in this encounter [facility] 05-28-2023 History of Present illness Narrative This [...] original device settings. documented in this encounter [facility] 05-28-2023 Nurse Surgical operation note Patient denies hx of chemo and radiation. Patient denies metal or foreign objects in body EXCEPT L chest PPM, Patient has hx of TIA, denies seizures. [facility] 05-28-2023 Nurse Note Patient denies hx of chemo and radiation. Patient denies metal or foreign objects in body EXCEPT L chest PPM, Patient has hx of TIA, denies seizures. documented in this encounter [facility] 05-06-2023 History of Present illness Narrative [...] factors includimng past history of stroke and NJ and has an increased risk for cardiopulmonary or cerebrovascular complications after surgery, but overall, this would be acceptable, and he wants to proceed with the planned elective surgery and signed informed consent in the office today. ([id number]) Mr. Penny presents for a follow up [...] cardiovascular risk factors including previous stroke and NJ and as a result has an increased risk for cardiopulmonary or cerebrovascular complications after surgery, but overall, this would be acceptable, and he wants to proceed with the planned elective surgery and signed informed consent in the office today. (DOC:[id number]) JOCScreening Do you experience shortness of breath [...] to any of the above questions? Yes: [facility] Required No: [facility] Approved Patient provided with pre-operative educational bag [...] Patient verbalized understanding. documented in this encounter [facility] 05-06-2023 History and physical note Images from the original note were not included. History and Physical Patient: Tabatha Penny Date: 05/06/2023 12:48 PM Attending Physician: Li Coppola MD Chief Complaint: NSCLC of the right upper lobe HPI: Tabatha Penny is a 78 y.o. male former smoker with history of AAA, NJ (s/p stent placement x 4 on plavix), AV block s/p pacemaker placement, TIA, VANDANA who was initially referred by Dr. Tobias for surgical evaluation of right upper lobe squamous cell carcinoma. To review, he underwent a biopsy of the right upper lobe in [place] which demonstrated NSCLC favoring squamous cell carcinoma. [...] heart failure COVID-19 Essential hypertension, benign Hyperlipidemia NJ (myocardial infarction) states he had 4 heart attacks, 5 stents and a pacemaker VANDANA (obstructive sleep apnea) Pacemaker RBBB Squamous cell carcinoma of lung TIA (transient ischemic attack) thinks this is from migraines Vascular disease Past Surgical History: Procedure Laterality Date BRONCHOSCOPY FLEXIBLE DIAGNOSTIC N/A 04/28/2023 Laterality: N/A; Surgeon: Li Coppola MD; [facility] BRONCHOSCOPY FLEXIBLE W/ EBUS DURING BRONCH DIAGNOSTICS/INTEVENTION FO N/A 04/28/2023 Laterality: N/A; Surgeon: Li Coppola MD; [facility] MAIN OR PACEMAKER PLACEMENT 12/2022 Oncology History Squamous cell carcinoma of right lung Initial Diagnosis Squamous cell carcinoma of right lung 01/09/2023 Imaging OSH CXR Patchy left basilar pulmonary infiltrates. No effusion or pneumothorax identified. Cardiac and mediastinal silhouettes are within normal limits. Atherosclerotic calcifications involving the thoracic aorta. 03/05/2023 Pathology 03/18/2023 Imaging OSH PET 04/04/2023 Pathology Adrenal Biopsy [place]: He is not on home oxygen He [...] under tongue Every 5 MINutes as needed. Woosung 3 1000 MG capsule Take 2 capsules [...] Penicillins Immunizations: Immunization History Administered Date(s) Administered [id number] COVID-19 monovalent vaccine, mRNA, Pfizer, 0.3 ML 08/31/2020, 09/28/2020, 05/05/[id number] COVID-19 monovalent vaccine (Pfizer) 12yr +, 30mcg/0.3mL 11/01/2021 COVID-19 bivalent vaccine (Pfizer) 12yr +, 30mcg/0.3mL [...] Sample Immediate Study: Adequacy/Preliminary Diagnosis: Not Adequate Margy Soto, CT (ASCP), April 28, 2023 B. 11R LYMPH NODE, FNA (CYTOLOGY AND CELL BLOCK): FINAL DIAGNOSIS: No Malignant Cells Are Identified Lymphoid Sample Immediate Study: Adequacy/Preliminary Diagnosis: Adequate for Lymphocytes Vera Gaykirstenky, CT (ASCP), April 28, 2023 C. 4R LYMPH NODE, FNA (CYTOLOGY AND CELL BLOCK): FINAL DIAGNOSIS: No Malignant Cells Are Identified Lymphoid Sample Immediate Study: Adequacy/Preliminary Diagnosis: Not Adequate Verandrew Gayetsky, CT (ASCP), April 28, 2023 PFTs 05/06/23: FEV1 2.16/72%, DLCO 18.93/77% ASSESSMENT/PLAN: Problem Obesity (Bmi 30.0-34.9) Squamous Cell Carcinoma of Right Lung Tabatha Penny is a 78 y.o. male former smoker with a past medical history of NJ with stent placement, AAA, AV block with [...] care discussed with Li Coppola MD. Amarilys Napoles, CLINICAL TRIAL DATA MANAGER-ROVING CHANGER #[id number] Associated attestation - Li Coppola MD [...] of the clinic visit. The nurse practitioner/physician yard assistant and I have spoken with the patient and provided written and verbal instructions for the patient. The SHARA note has been reviewed and I agree with the assessment and plan. Follow-up arrangements were made prior to the patient being discharged from the clinic. Li Coppola MD [facility] 05-06-2023 History and physical note Images from the original note were not included. History and Physical Patient: Tabatha Penny Date: 05/06/2023 12:48 PM Attending Physician: iL Coppola MD Chief Complaint: NSCLC of the right upper lobe HPI: Tabatha Penny is a 78 y.o. male former smoker with history of AAA, NJ (s/p stent placement x 4 on plavix), [...] heart failure COVID-19 Essential hypertension, benign Hyperlipidemia NJ (myocardial infarction) states he had 4 heart attacks, 5 stents and a pacemaker VANDANA (obstructive sleep apnea) Pacemaker RBBB Squamous cell carcinoma of lung TIA (transient ischemic attack) thinks this is from migraines Vascular disease Past Surgical History: Procedure Laterality Date BRONCHOSCOPY FLEXIBLE DIAGNOSTIC N/A 04/28/2023 Laterality: N/A; Surgeon: Li Coppola MD; [facility] BRONCHOSCOPY FLEXIBLE W/ EBUS DURING BRONCH DIAGNOSTICS/INTEVENTION FO N/A 04/28/2023 Laterality: N/A; Surgeon: Li Coppola MD; [facility] PACEMAKER PLACEMENT 12/2022 Oncology History Squamous cell carcinoma of right lung Initial Diagnosis Squamous cell carcinoma of right lung 01/09/2023 Imaging OSH CXR Patchy left basilar pulmonary infiltrates. No effusion or pneumothorax identified. Cardiac and mediastinal silhouettes are within normal limits. Atherosclerotic calcifications involving the thoracic aorta. 03/05/2023 Pathology 03/18/2023 Imaging OSH PET 04/04/2023 Pathology Adrenal Biopsy [place]: He is not on home oxygen He [...] under tongue Every 5 MINutes as needed. Woosung 3 1000 MG capsule Take 2 capsules [...] Penicillins Immunizations: Immunization History Administered Date(s) Administered [id number] COVID-19 monovalent vaccine, mRNA, Pfizer, 0.3 ML 08/31/2020, 09/28/2020, 05/05/2021 COVID-19 monovalent vaccine (Pfizer) 12yr +, 30mcg/0.3mL 11/01/2021 COVID-19 bivalent vaccine (Pfizer) 12yr +, 30mcg/0.3mL [...] Sample Immediate Study: Adequacy/Preliminary Diagnosis: Not Adequate Verandrew Odonnellky, CT (ASCP), April 28, 2023 B. 11R LYMPH NODE, FNA (CYTOLOGY AND CELL BLOCK): FINAL DIAGNOSIS: No Malignant Cells Are Identified Lymphoid Sample Immediate Study: Adequacy/Preliminary Diagnosis: Adequate for Lymphocytes Vera Gaykirstenky, CT (ASCP), April 28, 2023 C. 4R LYMPH NODE, FNA (CYTOLOGY AND CELL BLOCK): FINAL DIAGNOSIS: No Malignant Cells Are Identified Lymphoid Sample Immediate Study: Adequacy/Preliminary Diagnosis: Not Adequate Verandrew Mouraetsky, CT (ASCP), April 28, 2023 PFTs 05/06/23: FEV1 2.16/72%, DLCO 18.93/77% ASSESSMENT/PLAN: Problem Obesity (Bmi 30.0-34.9) Squamous Cell Carcinoma of Right Lung Tabatha Penny is a 78 y.o. male former smoker with a past medical history of NJ with stent placement, AAA, AV block with [...] care discussed with Li Coppola MD. Amarilys Napoles, CLINICAL TRIAL DATA MANAGER-ROVING CHANGER #[id number] Associated attestation - Li Coppola MD - [...] of the clinic visit. The nurse practitioner/physician yard assistant and I have spoken with the patient and provided written and verbal instructions for the patient. The SHARA note has been reviewed and I agree with the assessment and plan. Follow-up arrangements were made prior to the patient being discharged from the clinic. Li Coppola MD documented in this encounter [facility] 05-06-2023 Instructions JOHN Escobar - 05/06/2023 11:15 AM EDT You should [...] under tongue Every 5 MINutes as needed. Woosung 3 1000 MG capsule Take 2 capsules by mouth daily. Pantoprazole [address] tablet DR Take 1 tablet by mouth daily. Vitamin E 200 units capsule Take 1 capsule by mouth daily. -STOP taking ALL vitamins and herbal medications (including fish oil, Woosung-3, garlic, glucosamine-chondroitin, gingko, ginseng, tumeric, multivitamins) 2 [...] morning of surgery. documented in this encounter [facility] 04-28-2023 Nurse Note 1441-[facility] Vital signs taken and stable. Patient given [...] and care for patient 24 hours post-op. [facility] 04-28-2023 Miscellaneous Notes 1441-Patient arrived to [facility] from [facility] PACU via gurney. Vital signs taken and stable. Patient given [...] in PACU. documented in this encounter [facility] 04-28-2023 Hospital Discharge instructions Kwasi Mckeon MD [...] Surgery Contact Information: Friday - Friday 8am-4:30pm: [phone] Evenings, weekends, holidays: [phone] and ask the linderman machine operator to page the Thoracic Fellow On-Call. - You can restart your home Plavix tomorrow if you do not cough up any blood today. If you cough up blood, please hold Plavix for 24 hours. If this continues, please call our team. documented in this encounter [facility] 04-28-2023 Nurse Note 1349: This RN took [...] with Cortney, SANJANA. Report given to Cortney. [facility] 04-28-2023 Nurse Surgical operation note 1245 - Family notified of surgery start 1240 - Hand-off report sent to PACU charge nurse 1307 - Family called per MD request 1301 - PACU given notice of arrival 1305 - All appropriate parties notified of room turnover. 1309 - Patient extubated 1313- Transported to PACU with anesthesia at bedside on oxygen inhalation. [facility] 04-28-2023 Nurse Note 1245 - Family notified of surgery start 1240 - Hand-off report sent to PACU charge nurse 1307 - Family called per MD request 1301 - PACU given notice of arrival 1305 - All appropriate parties notified of room turnover. 1309 - Patient extubated 1313- Transported to PACU with anesthesia at bedside on oxygen inhalation. documented in this encounter [facility] 04-28-2023 Nurse Note Patient denies hx of chemo and radiation. Patient denies metal or foreign objects in body aside from a pacemaker. Patient denies hx of seizure but had a stroke. Called pacer clinic, they stated they need to see him before OR. 1200: Pacer clinic RN at bedside, states pt does not need to be seen post-op or in PACU. [facility] 01-24-2023 History of Present illness Narrative Patient Name: Tabatha Penny Date: 01/24/23 MR #: [id number] : 1945 Wound Check Assessment Type of Incision Check: Date of Device Implant 01/13/23 Implanting Pallet Assembler: Dr. Gaitan Following Pallet Assembler: Will be changing to Pallet Assembler closer to home ([place]) Type and Brand [...] patient verbalized understanding. documented in this encounter [facility] 01-14-2023 Hospital course Narrative [facility] DISCHARGE SUMMARY -- [facility] Tabatha Penny Admitted: 01/09/2023 Discharge Date: 01/14/23 PCP Handoff Recommended Outpatient Testing CT chest to follow up lung nodule Results Pending At Discharge None Clinical Summary 77 y.o. male patient of Jada Peters MD with history of CAD, DM2 presented to [facility] via transfer from [facility] for symptoms of chest pain, sob and [...] in ~ 10 days. Jada Peters MD [facility] [place] [address] Schedule an appointment as soon as possible [...] Richard MD - 01/14/2023 3:22 PM EDT [facility] [facility]UM I saw and examined the patient independently of the [facility] fellow. Labs, medications, imaging and other studies were reviewed. I agree with history, physical examination findings, medical decision making and the assessment/plan. documented in this encounter [facility] 01-14-2023 History of Present illness Narrative Electrophysiology Inpatient Follow-up Heart & Vascular [facility] 01/14/2023 Linda Schofield, [facility] Patient: Tabatha Penny Date of : 1945 (77 y.o.) PCP: Jada Peters MD Assessment/Plan: * AV block Overview 2:1 block and type 1 second degree AV block noted, no evidence of CHB. S/p MDT DC PPM with LBB pacing Device site dry and intact, no hematoma. CXR negative for pneumothorax, does note nodule- communicated with [facility] Device check this morning with appropriate device functioning Reviewed restrictions and s/s of infection Will have patient follow up for wound/device check in ~10 days. He has follow up with his new passenger service manager on 01/29. Okay to discharge from EP standpoint. Coronary artery disease involving eyak heart Overview Prior PCI to LAD and RCA around 8-9 years ago. Prior echo showed EF 60% in 2016. SPECT in 2016 showed perfusion changes consistent with prior NJ in portions of basal inferoseptal and mid to distal inferior apical/lateral segments. Assessment & Plan Echo showed EF 55%, Stress test negative for ischemia. Continue ASA, atorvastatin, and Plavix Subjective He is doing good this morning, some pain overnight at device site and took tylenol Telemetry shows paced rhythm ECG 12 Lead Final Result by Cali Hernandez DO (01/09/2023 [id number]) Echocardiogram complete w contrast Final Result by [...] mg Intravenous 60 Min Pre-Procedure Linda Schofield, [employer] clopidogreL (PLAVIX) tablet 75 mg 75 mg [...] Product: Sling- horizontal arm Nursing to place [facility] PROGRESS NOTE Assessment and Plan 77 y.o. male patient of Jada Peters MD with history of CAD, DM2 presented to [facility] via transfer from [facility] for symptoms of chest pain, sob and [...] Richard MD - 01/13/2023 1:50 PM EDT [facility] NOTE ADDENDUM I saw and examined the patient independently of the [facility] fellow. Labs, medications, imaging and other studies [...] Cardiovascular and Mediastinum Coronary artery disease involving eyak heart Overview Prior PCI to LAD and RCA around 8-9 years ago. Prior echo showed EF 60% in 2016. SPECT in 2016 showed perfusion changes consistent with prior NJ in portions of basal inferoseptal and mid [...] Lab Units 01/09/23 1736 TSH mcIU/mL 2.63 [facility] PROGRESS NOTE Assessment and Plan 77 y.o. male patient of Jada Peters MD with history of CAD, DM2 presented to [facility] via transfer from [facility] for symptoms of chest pain, sob and [...] Cardiovascular and Mediastinum Coronary artery disease involving eyak heart Overview Prior PCI to LAD and RCA around 8-9 years ago. Prior echo showed EF 60% in 2016. SPECT in 2016 showed perfusion changes consistent with prior NJ in portions of basal inferoseptal and mid [...] Lab Units 01/09/23 1736 TSH mcIU/mL 2.63 [facility] PROGRESS NOTE Assessment and Plan 77 y.o. male patient of Jada Peters MD with history of CAD, DM2 presented to [facility] via transfer from [facility] for symptoms of chest pain, sob and [...] normal coloration Psych: normal mood and affect [facility] PROGRESS NOTE Assessment and Plan 77 y.o. male patient of Jada Peters MD with history of CAD, DM2 presented to [facility] via transfer from [facility] for symptoms of chest pain, sob and noted AV block. AV Block EKG reviewed from [facility], appears 2nd degree v 3rd degree Uncertain [...] this time CAD With hx of multiple NJ and stenting placement Pt on dapt will [...] mood and affect documented in this encounter [facility] 01-14-2023 Note Formatting of this n [...] of comfort function goal Outcome: Partially Met [facility] 01-14-2023 Miscellaneous Notes Problem: Actual or [...] identified. Associated Problem(s): Coronary artery disease involving eyak heart Troponins negative. Patient denies any active chest pain at this time. Stress negative Associated Problem(s): AV block No urgent indication for pacing. Stress test 01/10 without ischemia. Echo 01/10 with preserved EF, no valvular abnormalities. Plan is for pacemaker tomorrow documented in this encounter [facility] 01-13-2023 Note Table formatting fro m [...] and include, but not limited to: , NJ, bleeding, infection, nerve, vessel, cardiac injury, pneumothorax, [...] Implants Pacemaker Pacer [id number] Danuta Connors - [id number] - Implanted Inventory item: PACER W1DR01 DANUTA CONNORS Model/Cat number: [id number] Serial number: [id number] Tire And Tube Repairer: [place] MONTEZ Device identifier: [id number] Device identifier type: GS1 Implant Date: 01/13/2023 GUDID Information Request status Successful Brand name: Danuta?? XT ANNETTE Rooney?? Version/Model: W1DR01 Company name: [employer]. MRI safety info as of 01/13/23: MR Conditional Contains dry or latex rubber: No GMDN P.T. name: Dual-chamber implantable pacemaker, rate-responsive As of 01/13/2023 Status: Implanted Antibiotic Pouch Envelope Anti-Bacterial Aigis/Tyrx Pacer Resorbable Mesh - [id number] - Implanted Inventory item: ENVELOPE ANTI-BACTERIAL AIGIS/TYRX PACER RESORBABLE MESH Model/Cat number: [id number] Tire And Tube Repairer: MEDTRO MONTEZ Lot number: [id number] Device identifier: [id number] Device identifier type: GS1 GUDID Information Request status (more content not included)... [facility] 01-13-2023 Note Table formatting fro m the [...] and include, but not limited to: , NJ, bleeding, infection, nerve, vessel, cardiac injury, pneumothorax, [...] immediate complications. Implants Pacemaker Pacer W1dr01 Danuta X[address] Connors - [id number] - Implanted Inventory item: PACER W1DR01 DANUTA XT DR MRI Model/Cat number: W1DR01 Serial number: [id number] Tire And Tube Repairer: [employer] Device identifier: [id number] Device identifier type: GS1 Implant Date: 01/13/2023 GUDID Information Request status Successful Brand name: Danuta GEIGER DR MRI SureScan Version/Model: W1DR01 Company name: [employer]. MRI safety info as of 01/13/23: MR Conditional Contains dry or latex rubber: No GMDN P.T. name: Dual-chamber implantable pacemaker, rate-responsive As of 01/13/2023 Status: Implanted Antibiotic Pouch Envelope Anti-Bacterial Aigis/Tyrx Pacer Resorbable Mesh - [id number] - Implanted Inventory item: ENVELOPE ANTI-BACTERIAL AIGIS/TYRX PACER RESORBABLE MESH Model/Cat number: [id number] T[employer] And Tube Repairer: [employer] Lot number: (more content not included)... XPER [...] to the booklet or check with the test clerk. Call the doctor (who put the pacemaker [...] upper arm muscles. This includes pushing a assistant athletic trainer or vacuum, mopping floors, swimming, or swinging [...] irregular heartbeat. After you call 911, the linderman machine operator may tell you to chew 1 adult-strength [...] Log into your personal health record on [email or web address] and enter G550 in the Education box to learn more about Pacemaker Placement: What to Expect at Home. Current as of: October 06, 2013 Content Version: 10.3 [employer]. Care instructions adapted under license by your healthcare professional. If you have questions about a medical condition or this instruction, always ask your healthcare professional. [employer] disclaims any warranty or liability for your use of this information. documented in this encounter [facility] 01-11-2023 Note Formatting of this n [...] of comfort function goal Outcome: Partially Met [facility] 01-10-2023 Note Formatting of this n [...] of comfort function goal Outcome: Partially Met [facility] 01-10-2023 Note Formatting of this n ote might be different from the original. 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 Junctional escape beats noted. No CHB identified. [facility] 01-10-2023 Evaluation + Plan note Associated Problem(s): Coronary artery disease involving eyak heart Troponins negative. Patient denies any active chest pain at this time. Stress negative T [facility] 01-10-2023 Evaluation + Plan note Associated Problem(s): AV block No urgent indication for pacing. Stress test 01/10 without ischemia. Echo 01/10 with preserved EF, no valvular abnormalities. Plan is for pacemaker tomorrow [facility] 01-10-2023 Consult note Associated Order (s): IP CONSULT TO CARDIOLOGY Electrophysiology Inpatient Consult Heart & Vascular [facility] 01/10/2023 Linda Schofield CNP [facility] Patient: Tabatha Penny Date of : 1945 (77 y.o.) Referring Provider: No ref. provider found PCP: Jada Peters MD Assessment/Plan: * AV block Assessment & Plan Per telemetry review noted second-degree type I and possible 2-1 block. No complete heart block noted. Unable to find EKG from [facility]. Recommend stress test in the setting of new onset chest pain over the past few weeks. His echo is pending. No urgent indication for pacing. Will make final recommendations pending stress/echo results. Holding home metoprolol. Coronary artery disease involving eyak heart Overview Prior PCI to LAD and RCA around 8-9 years ago. Prior echo showed EF 60% in 2016. SPECT in 2016 showed perfusion changes consistent with prior NJ in portions of basal inferoseptal and mid to distal inferior apical/lateral segments. Assessment & Plan Troponins negative. Patient denies any active chest pain at this time. Ordered stressed test. Subjective Reason for Consultation: AV block History of Present Illness: Tabatha Penny is a 77 y.o. male with past medical history of CAD s/p PCI, COPD, type 2 diabetes, former smoker presented to [facility] for complaints of chest pain and shortness of breath. According to [facility] patient was in an second degree or third-degree AV block and was transferred to [place] for further evaluation. Says he has noticed [...] 2-1 block. Unable to review EKG from [facility]. His echocardiogram is pending. Independently reviewed [...] Echocardiogram complete w contrast by Merly Elise [facility] (01/09/[id number]) Review of Systems: Review of Systems Constitutional: Negative. Respiratory: Negative. Cardiovascular: Negative. Skin: Negative. Neurological: Negative. Psychiatric/Behavioral: Negative. 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 The patient does have evidence of prior [...] show any ST changes consistent with ischemia. [facility] 01-10-2023 Consult note Associated Order (s): IP CONSULT TO CARDIOLOGY Electrophysiology Inpatient Consult Heart & Vascular [facility] 01/10/2023 Linda Schofield CNP [facility] Patient: Tabatha Penny Date of : 1945 (77 y.o.) Referring Provider: No ref. provider found PCP: Jada Peters MD Assessment/Plan: * AV block Assessment & Plan Per telemetry review noted second-degree type I and possible 2-1 block. No complete heart block noted. Unable to find EKG from outlying hospital. Recommend stress test in the setting of new onset chest pain over the past few weeks. His echo is pending. No urgent indication for pacing. Will make final recommendations pending stress/echo results. Holding home metoprolol. Coronary artery disease involving eyak heart Overview Prior PCI to LAD and RCA around 8-9 years ago. Prior echo showed EF 60% in 2016. SPECT in 2016 showed perfusion changes consistent with prior NJ in portions of basal inferoseptal and mid to distal inferior apical/lateral segments. Assessment & Plan Troponins negative. Patient denies any active chest pain at this time. Ordered stressed test. Subjective Reason for Consultation: AV block History of Present Illness: Tabatha Penny is a 77 y.o. male with past medical history of CAD s/p PCI, COPD, type 2 diabetes, former smoker presented to [facility] for complaints of chest pain and shortness of breath. According to [facility] patient was in an second degree or third-degree AV block and was transferred to [place] for further evaluation. Says he has noticed [...] 2-1 block. Unable to review EKG from [facility]. His echocardiogram is pending. 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 The patient does have evidence of prior [...] consistent with ischemia. documented in this encounter [facility] 01-09-2023 History and physical note [facility] HISTORY AND PHYSICAL -- [facility] Patient Name: Tabatha Penny : 1945 MR #: [id number] Admit Date: 01/09/2023 Physicians: Jada Peters MD (Family); No ref. provider found (Referring) Tabatha Penny is a 77 y.o. male patient of Jada Peters MD with history of CAD, DM2 presented to [facility] via transfer from [facility] for symptoms of chest pain, sob and noted AV block. AV Block EKG reviewed from [facility], appears 2nd degree v 3rd degree. Uncertain [...] atropine/external pacing CAD With hx of multiple NJ and stenting placement Pt on dapt will [...] hospital or ED yes -- care site [facility] Quality Measures DVT Prophylaxis: SCDs [place] Catheter: absent Medication Reconciliation: Verified Risk variables present on admission: Cardiac Arrhythmia and Bradycardia. Please see assessment and plan for further details. 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 provider found (Referring) Tabatha Penny is a 77 y.o. male patient of Jada Peters MD with history of CAD, DM2 presented to [facility] via transfer from [facility] for symptoms of chest pain, sob and noted AV block. AV Block EKG reviewed from [facility], appears 2nd degree v 3rd degree. 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 : 1945 VISIT DATE: 01/09/2023 CSN: [id number] PCP: Jada Peters MD Chief Complaint Patient [...] 01/15/2016 Stent COPD (chronic obstructive pulmonary disease) ([facility]) Diabetes 1.5, managed as type 2 ([facility]) 01/15/2016 Hyperlipidemia 01/15/2016 Hypertension 01/15/2016 [...] Patchy left basilar pulmonary infiltrates. 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 Cali Hernandez DO 01/09/23 1846 [facility] 01-09-2023 Emergency department Note Associated Order(s): ECG 12 Lead ED PROVIDER NOTE [facility] EMERGENCY DEPARTMENT NAME: Tabatha Penny AGE: 77 y.o. : 1945 VISIT DATE: 01/09/2023 CSN: [id number] PCP: Jada Peters MD Chief Complaint Patient [...] 01/15/2016 Stent COPD (chronic obstructive pulmonary disease) ([facility]) Diabetes 1.5, managed as type 2 ([facility]) 01/15/2016 Hyperlipidemia 01/15/2016 Hypertension 01/15/2016 [...] Patchy left basilar pulmonary infiltrates. 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 Cali Hernandez DO 01/09/23 7294 Pt to ED from [facility] for cardiology consult 2/2 complete heart block. Hx of 5 stents. EP not available at [facility]. Accepted by Par[facility]. Pt denies CP, SOB, dizziness, light headedness, or other symptoms. Pt states he was working outside on a deck this afternoon and he became weak and had onset of cp at that time. Bed: 56 Expected date: Expected time: Means of arrival: Comments: Medic, heart block tx, peoples documented in this encounter [facility] 01-09-2023 Emergency department Triage note Pt to ED from [facility] for cardiology consult 2/2 complete heart block. Hx of 5 stents. EP not available at [facility]. Accepted by Damon. Pt denies CP, SOB, dizziness, light headedness, or other symptoms. Pt states he was working outside on a deck this afternoon and he became weak and had onset of cp at that time. [facility] 01-09-2023 Emergency department Note Bed: 56 Expected date: Expected time: Means of arrival: Comments: Medic, heart block tx, peoples [facility] documented [facility] this [facility] Diagnosis Mediastinal lymphadenopathy Enlargement of lymph nodes [facility] Diagnosis Squamous cell carcinoma of right lung Neoplasm of unspecified behavior of unspecified site NSCLC of right lung [facility] NSCLC of right lung NSCLC of right lung [facility] Diagnosis Squamous cell carcinoma of right lung- Primary Neoplasm of unspecified behavior of unspecified site NSCLC of right lung [facility] Diagnosis Squamous cell carcinoma of right lung- Primary Squamous cell carcinoma of right lung NSCLC of right lung Acute post-operative pain CAD (coronary artery disease) Coronary atherosclerosis of unspecified type of vessel, eyak or graft Essential hypertension, benign Overweight (BMI 25.0-29.9) Overweight Hyperlipidemia Other and unspecified hyperlipidemia VANDANA (obstructive sleep apnea) Obstructive sleep apnea (adult) (pediatric) GERD (gastroesophageal reflux disease) Esophageal reflux Health education/counseling Counseling NOS At moderate risk for venous thromboembolism (VTE) Acute post-operative pain Leukocytosis Leukocytosis, unspecified [facility] (Routine) Specialty Diagnoses / Procedures Referred By Contac t Referred To Contact KASSIE [address] [place] [phone] Referral ID Status Reason Start Date Expiration Date Visits Re quested Visits Authorized * Radiology (Routine) - New Request Specialty Diagnoses / Procedures Referred By Contac t Referred To Contact Procedures PACEMAKER/ICD INTERROGATION Li Coppola MD [address] [place] [phone] Referral ID Status Reason Start Date Expiration Date V isits Requested Visits Authorized [id number] New Request 05/28/2023 06/21/2024 1 1 * (Routine) - New Request Specialty Diagnoses / Procedures Referred By Contac t Referred To Contact Procedures PLATELET MONITORING PER PROTOCOL Meron Mckeon, PAC [address] [place] [id number] Referral ID Status Reason Start Date Expiration Date V isits Requested Visits Authorized [id number] New Request 05/28/2023 06/21/2024 1 1 * (Routine) - New Request Specialty Diagnoses / Procedures Referred By Contac t Referred To Contact Procedures DVT/VTE RISK ASSESSMENT Meron Mckeon, PAC [address] [place] [phone] Referral ID Status Reason Start Date Expiration Date V isits Requested Visits Authorized [id number] New Request 05/28/2023 06/21/2024 1 1 * Radiology (Emergency) - New Request Specialty Diagnoses / Procedures Referred By Haleigh rubio Referred To Contact Procedures PACEMAKER/ICD INTERROGATION Roxann Solomon MD [address] [place] [address] Referral ID Status Reason Start Date Expiration Date V isits Requested Visits Authorized [id number] New Request 05/28/2023 06/21/2024 1 1 [facility] Summary Purpose Family History No Family [...] Documents on File Type Date Recorded Patient P 3 Armament/Ordnance Ima Technician Expl anation HealthCare Power of Epic Willow Specialist 04/28/2023 11:40 AM Advance Directives/Living Will 04/28/2023 11:40 AM HealthCare Power of Epic Willow Specialist 10/29/2014 Advance Directives/Living Will 10/29/2014 Latest Code Status on File Code Status Date Activated Date Inactivated Comments Full Code 04/28/2023 11:42 AM Documents on File Type Date Recorded Patient P 3 Armament/Ordnance Ima Technician Expl anation HealthCare Power of Epic Willow Specialist 04/28/2023 11:40 AM Advance Directives/Living Will 04/28/2023 11:40 AM HealthCare Power of Epic Willow Specialist 10/29/2014 Advance Directives/Living Will 10/29/2014 Latest Code Status on File Code Status Date Activated Date Inactivated Comments Full Code 04/28/2023 11:42 AM Reason for Referral Specialty Diagnoses / Procedures Referred By Contac t Referred To Contact Cardiology Diagnoses AV block Procedures Outpatient Device Clinic Referral - Open for details Asher Gaitan MD [address] [place] [address] Referral ID Status Reason Start Date Expiration Date V isits Requested Visits Authorized [id number] Authorized 01/13/2023 01/13/2024 1 1 Specialty Diagnoses / Procedures Referred By Contac t Referred To Contact Procedures PACEMAKER/ICD INTERROGATION Li Coppola MD [address] [place] [address] Referral ID Status Reason Start Date Expiration Date V isits Requested Visits Authorized [id number] New Request 04/28/2023 05/22/2024 1 1 Specialty Diagnoses / Procedures Referred By Contac t Referred To Contact Diagnoses NSCLC of right lung Procedures PFT STANDARD Meron Mckeon, PAC [address] [place] [phone] Referral ID Status Reason Start Date Expiration Date V isits Requested Visits Authorized [id number] New Request 04/22/2023 05/16/2024 1 1 Additional Source Comments (unrecognized sect ion and content) No Status Records FoundNo Status Records FoundNo Status Records FoundNo Status Records FoundNo Status Records Found INFORMATION SOURCE (unrecogn ized section and content) DATE CREATED AUTHOR AUTHOR'S ORGANIZ ATION 05/31/2021 [facility] DATE CREATED AUTHOR AUTHOR'S ORGANIZ ATION 01/30/2023 [facility] DATE CREATED AUTHOR AUTHOR'S ORGANIZ ATION 08/22/2023 [facility] DATE CREATED AUTHOR AUTHOR'S ORGANIZ ATION 09/04/2023 [facility] Reason for Visit (unrecogniz ed section and content) Specialty Diagnoses / Procedures Referred By Contac t Referred To Contact Diagnoses Shortness of breath AV block Heart block Elevated blood pressure reading Prolonged Q-T interval on ECG Chest pain, unspecified type Community acquired pneumonia, unspecified laterality Third degree heart block Referral ID Status Reason Start Date Expiration Date Visits Re quested Visits Authorized [id number] 1 1 Reason Onset Date Comments Wound Check 01/24/2023 S/P DC PPM inser tion on 01/13/23 Specialty Diagnoses / Procedures Referred By Haleigh rubio Referred To Contact Diagnoses Mediastinal lymphadenopathy Mediastinal lymphadenopathy [R59.0] Procedures NJ BRNCHSC INCL FLUOR GDNCE DX W/CELL WASHG SPX NJ BRNSCHSC TNDSC EBUS DX/TX INTERVENTION PERPH LES BRONCHOSCOPY FLEXIBLE DIAGNOSTIC BRONCHOSCOPY FLEXIBLE W/ EBUS DURING BRONCH DIAGNOSTICS/INTEVENTION FOR PERIPHERAL LESION ADD-ON PX Li Coppola MD [address] [facility] [address] [place] [address] [facility] [address] [place] [address] Referral ID Status Reason Start Date Expiration Date Visits Re quested Visits Authorized [id number] 1 1 Referral ID Status Reason Start Date Expiration Date Visits Re quested Visits Authorized [id number] 1 1 Reason Comments Labs Only Specialty Diagnoses / Procedures Referred By Haleigh rubio Referred To Contact Diagnoses NSCLC of right lung Procedures PFT STANDARD Meron Mckeon, PAC [address] [facility] [address] [place], [place] [phone] Referral ID Status Reason Start Date Expiration Date V isits Requested Visits Authorized [id number] New Request 04/22/2023 05/16/2024 1 1 Reason Comments Follow-up Pt reports coughing spells, SOB with moderate exertionPt reports low back pain that's newerPt denies problems swallowing Reason Comments Pacemaker/ICD event Specialty Diagnoses / Procedures Referred By Haleigh rubio Referred To Contact Diagnoses NSCLC of right lung NSCLC of right lung [C34.91] Procedures NJ THORACOSCOPY W/LOBECTOMY SINGLE LOBE [place] [facility] [place] G[place] DX W/CELL WASHG SPX LOBECTOMY LUNG ROBOTIC BRONCHOSCOPY FLEXIBLE DIAGNOSTIC Li Coppola MD [address] [place] [address] [facility] [address] [place] [address] Referral ID Status Reason Start Date Expiration Date Visits Re quested Visits Authorized [id number] 1 1 Scheduled Active and Recently Administ ered Medications (unrecognized section and content) Continuous Medication Order 01/12/2023 01/13/2023 01/14/2023 sodium chloride 0.9% (NS) () 50 mL/hr, Intravenous, Continuous, Starting on Fri01/13/23 at 0845, For 10 hours 0845 (New Bag - Provider: Herlinda Osuna RN)2300 (Stopped - Provider: Komal Montoya, RN) PRN Medication Order 01/12/2023 01/13/2023 01/14/2023 [...] Sharifa Roca RN)2300 (Stopped - Provider: Komal Montoya, TONY) fentaNYL (SUBLIMAZE) injection (CANCELED) As needed, Starting on Fri01/13/23 at 1423, Intra-Procedure 1423 (Given - Provider: Sharifa Roca RN)1442 (Given - Provider: Sharifa Roca, TONY)1517 (Given - Provider: Sharifa Roca, TONY) iopamidoL (ISOVUE-370) 370 mg iodine /mL (76 [...] (VERSED) injection (CANCELED) As needed, Starting on 01/13/23 at 1418, Intra-Procedure 1418 (Given - Provider: Sharifa Roca, RN)1442 (Given - Provider: Sharifa Roca, RN)1515 (Given - Provider: Sharifa Roca, RN) senna (SENOKOT) tablet 8.6 mg 8.6 mg [...] Marci Mccartney RN)2152 (Given - Provider: Raquel Singh RN) 0342 (Given - Provider: Raquel Singh RN)0846 (Given - Provider: Abby Banks RN)1504 (Given - Provider: Abby Banks RN)2041 (Given - Provider: Izzy Mccloud RN) 0508 (Given - Provider: Izzy Mccloud RN)0807 (Given - Provider: Abby Banks RN) amLODIPine (NORVASC) tablet 10 mg 10 [...] at 0645 0624 (Given - Provider: Izzy Mccloud RN) Clindamycin (CLEOCIN) 900 mg in dextrose 50 ml premix IVPB (COMPLETED) 900 mg, Intravenous, Administer over 30 Minutes, EVERY 8 HOURS NON-STANDARD, 2 doses, First dose on Fri05/28/23 at 1545, Last dose on Fri05/28/23 at 2345, Post-op/Post-Proc 1559 ($$New Bag$$ - Provider: Marci Mccartney RN)2342 ($$New Bag$$ - Provider: Raquel Singh, TONY) Docusate (COLACE) capsule 100 mg 100 mg, [...] HOURS, First dose (after last modification) on Fri05/29/23 at 0900, Until Discontinued, Indications: DVT/PE prophylaxis, [...] Discontinued 2033 (Given - Provider: Raquel Singh, RN) 2042 (Given - Provider: Izzy Mccloud, RN) Pantoprazole (PROTONIX) tablet DR 40 mg 40 mg, Oral, DAILY, First dose on Fri05/29/23 at 0900, Until Discontinued, Swallow whole; do not crush or chew., Indications: Continuation of Home Therapy, Post-op/Post-Proc 0841 (Given - Provider: Abby Banks RN) 0807 (Given - Provider: Abby Banks, RN) Polyethylene glycol (MIRALAX) packet 17 g 17 g, Oral, DAILY, First dose on Fri05/30/23 at 0900, Until Discontinued 807 (Given - Provider: Abby Banks, TONY) Senna (SENOKOT) tablet 17.2 mg 17.2 mg, Oral, EVERY 12 HOURS, First dose on Fri05/28/23 at 2100, Until Discontinued, Post-op/Post-Proc 2034 (Given - Provider: Raquel Singh RN) 0841 (Given - Provider: Abby Banks, TONY)2042 (Given - Provider: Izzy Mccloud, RN) 0807 (Given - Provider: Abby Banks, TONY) Continuous Medication Order 05/28/2023 05/29/2023 05/30/2023 dextrose [...] 20 mL injection (COMPLETED)(Linked Group 1) Infiltration, TECHNICAL DIRECTOR TO PROCEDURE, 1 dose, Starting on Fri05/28/23 at 0828, Until Fri05/28/23 at 1050, For OR use only under direction of the attending physician., Intra-op/Intra-Proc 1050 (Given - Provider: Sania Alas RN) BUPivacaine-EPINEPHrine (MARCAINE;SENSORCAINE W/ EPI) 0.25% -[id number] injection (CANCELED) NEEDED, Starting on Fri05/28/23 at 0817, Until Fri05/28/23 at 1141, Intra-op/Intra-Proc 0817 (Given - Provider: Li Coppola MD) Clindamycin (CLEOCIN) 900 mg in dextrose 50 ml premix IVPB (COMPLETED) 900 mg, Intravenous, Administer over 30 Minutes, TECHNICAL DIRECTOR TO PROCEDURE, 1 dose, Starting on Fri05/28/23 [...] PACU., Recovery 1203 (Given - Provider: Marci Mccartney RN) Ketorolac (TORADOL) injection 15 mg 15 mg, Intravenous, EVERY 6 HOURS NEEDED, Starting on Fri05/28/23 at 1234, Until Fri05/30/23 at 1437, Moderate Pain, AVOID if CrCl < 30, SCr > 1.5, or CAD, Post-op/Post-Proc 1235 (Given - Provider: Marci Mccartney RN) morphine (PF) 200 mcg in sodium chloride (PF) 0.9 % 1 ml (total volume) intrathecal injection (COMPLETED) 200 mcg, Intrathecal, TECHNICAL DIRECTOR TO PROCEDURE, 1 dose, Starting on Fri05/28/23 [...] 20 mL injection (COMPLETED)Jump to med Infiltration, TECHNICAL DIRECTOR TO PROCEDURE, 1 dose, Starting on Fri05/28/23 at 0828, Until Fri05/28/23 at 1050
For OR use only under direction of the attending physician.
Intra-op/Intra-Proc And BUPivacaine LIPOSOME (EXPAREL) 1.3 % 133 mg, BUPivacaine (PF) (MARCAINE) 0.25 % 10 mL in Total Volume 20 mL injection (COMPLETED)Jump to med Infiltration, TECHNICAL DIRECTOR TO PROCEDURE, 1 dose, Starting on Fri05/28/23 [...] Care Teams (unrecognized sec tion and content) Payroll Benefits Clerk Relationship Specialty Start Date End Date Jada Peters MD [address] [place] [address] [address] [place], [place] [phone] PCP - General 01/09/23 Payroll Benefits Clerk Relationship Specialty Start Date End Date Jada Peters MD [address] [place] [address] [address] [place] [phone] PCP - General Family Medicine 03/26/23 Eloina Claros, RN Registered Nurse 03/26/23 Pj Ardon MB/CHB [address] [place] [address] Oncologist Medical Oncology 03/26/23 Payroll Benefits Clerk Relationship Specialty Start Date End Date Jada Peters MD [address] [place] [phone] PCP - General Family Medicine 03/26/23 Eloina Claros, RN Registered Nurse 03/26/23 Pj Ardon MB/CHB [address] [place], [place] [address] Oncologist Medical Oncology 03/26/23 Payroll Benefits Clerk Relationship Specialty Start Date End Date Jada Peters MD [address] [place] [phone] PCP - General Family Medicine 03/26/23 Eloina Claros, RN Registered Nurse 03/26/23 Pj Ardon MB/CHB [address] [place] [address] Oncologist Medical Oncology 03/26/23 Payroll Benefits Clerk Relationship Specialty Start Date End Date Jada Peters MD [address] [place] [phone] PCP - General Family Medicine 03/26/23 Eloina Claros, RN Registered Nurse 03/26/23 Pj Ardon MB/CHB [address] [place], [place] [address] Oncologist Medical Oncology 03/26/23 Payroll Benefits Clerk Relationship Specialty Start Date End Date Jada Peters MD [address] [place] [phone] PCP - General Family Medicine 03/26/23 Eloina Claros, RN Registered Nurse 03/26/23 Pj Ardon MB/DB [address] [place] [address] Oncologist Medical Oncology 03/26/23 Payroll Benefits Clerk Relationship Specialty Start Date End Date Jada Peters MD [address] [place] [phone] PCP - General Family Medicine 03/26/23 Eloina Claros, RN Registered Nurse 03/26/23 Pj Ardon MB/DB [address] [place] [address] Oncologist Medical Oncology 03/26/23 Payroll Benefits Clerk Relationship Specialty Start Date End Date Jada Peters MD [address] [place] [phone] PCP - General Family Medicine 03/26/23 Eloina Claros RN Registered Nurse 03/26/23 Pj Ardon MB/DB [address] [place] [address] Oncologist Medical Oncology 03/26/23 Li Coppola MD [address] [place] [address] Surgeon Thoracic Surgery 05/29/23 Payroll Benefits Clerk Relationship Specialty Start Date End Date Jada Peters MD [address] [place] [phone] PCP - General Family Medicine 03/26/23 Eloina Claros, RN Registered Nurse 03/26/23 Pj Ardon MB/DB [address] [place] [address] Oncologist Medical Oncology 03/26/23 Li Coppola MD [address] [place] [address] Surgeon Thoracic Surgery 05/29/23 FOR RECORDS PERTAINING [...] BE BASED ON THE PRIMARY CLINICAL RECORDS. [employer] provides no warranty or guarantee of the accuracy or completeness of information in this document.
--- NOTE | 2023-09-18 08:50 | CL.D_ITS ---
Patient Name: TABATHA DOSS Study Date: 09/18/2023 Performing: Braden Hammonds MD Ht: 69 inches 175.26 cm : 1945 Wt: 205.01 lbs 92.99 kg Age: 78 Gender: male BSA: 2.09 PROCEDURE(S) PERFORMED DC01-(61210)LHC/COR/LV CLINICAL PROFILE AND INDICATIONS Indications: Stable Known CAD Heart Failure: None Stress/Imaging Date: 08/19/23Stress Test with SPECT MPI: Positive Low Risk CAD Presentations: Symptom unlikely to be ischemic. CONCLUSIONS Previously placed stent in the left anterior descending artery and the right coronary artery noted to be patent with moderate to moderately severe disease noted in the mid left circumflex artery. RECOMMENDATIONS Referred for immediate PCI DESCRIPTION OF PROCEDURE The patient arrived to the procedure lab. The risks and benefits of the procedure as well as a full description of our services here and current unavailability of surgical backup were fully explained to the patient and/or their significant other prior to the catheterization. The Timeout was completed, verifying the correct patient and procedure. The patient's procedural site was prepped and draped in the usual fashion. Local anesthetic was given subcutaneously to right radial region with Lidocaine 2%. Using a modified Seldinger technique, arterial access was obtained via the right radial artery, a 6Fr sheath was inserted. Left Coronary Artery selective angiography was performed in multiple views using a 5 Fr. 4.0 Midway catheter. Right Coronary Artery selective angiography was then performed in multiple views using a 5 Fr. 4.0 Midway catheter. Left Ventriculography was performed in GARDUNO projection using a 5 Fr. Pigtail catheter. CORONARY ANGIOGRAPHY DOMINANCE: Artery: Dominant LEFT HEART ASSESSMENT Left Ventricular Ejection Fraction: by LV Gram 45 % Depressed Left Ventricular systolic function LEFT MAIN: Angiographically normal LEFT ANTERIOR DESCENDING ARTERY: This vessel was previously stented and the stent is noted to be patent with 2 diagonal branches who do not appear to have significant disease. CIRCUMFLEX ARTERY: Nondominant vessel with a mid circumflex artery having a moderate 60 to 70% stenotic lesion RIGHT CORONARY ARTERY: Dominant right coronary artery previously stented with a stent noted to be patent with minimal in-stent stenosis and mild distal luminal irregularities. COMPLICATIONS PROCEDURE MEDICATIONS Versed 1 mg IV Fentanyl 50 mcg IV Versed 1 mg IV Oxygen: 2 L/min via nasal cannula Brilinta 180 mg PO @ 09/18/2023 08:19:47 Heparin given IA 09/18/2023 07:56:28 Heparin 7000 unit(s) IV 09/18/2023 08:43:07 Verapamil 2.5mg, Ntg 200mcgs, 2000 units of Heparin given IA 09/18/2023 07:56:28 SUMMARY OF HEMODYNAMIC DATA Time AIR REST ECG 07:11:36 Art 128/53 (79) 08:00:51 AO 137/64 (91) SA 08:06:50 LV 146/12, 26 08:13:15 LV 150/9, 18 08:13:24 Signed By Braden Hammonds MD On 09/18/2023 08:50:20 Braden Hammonds MD
--- NOTE | 2023-09-18 09:29 | CL.I_ITS ---
Patient Name: TABATHA DOSS Study Date: 09/18/2023 Performing: Marilee Sylvester MD Ht: 69 inches 175.26 cm : 1945 Wt: 205.01 lbs 92.99 kg Age: 78 Gender: male BSA: 2.09 PROCEDURE(S) PERFORMED IC12-(02814/C9600)JOB W/WO PTCA, SINGLE CORONARY ARTERY CLINICAL PROFILE AND CO-MORBIDITIES Indications: Stable Known CAD Heart Failure: None Stress/Imaging Date: 08/19/23 Stress Test with SPECT MPI: Positive Low Risk CAD Presentations: Symptom unlikely to be ischemic. CONCLUSIONS Successful JOB Mid LCX using Anupam [place] 2.5x34 mm, optimized proximally using 3.0 mm balloon RECOMMENDATIONS ASA Indefinitley Plavix for at least 12 months DESCRIPTION OF PROCEDURE The patient arrived to the procedure lab. The risks and benefits of the procedure as well as a full description of our services here and current unavailability of surgical backup were fully explained to the patient and/or their significant other prior to the catheterization. The Timeout was completed, verifying the correct patient and procedure. The patient's procedural site was prepped and draped in the usual fashion. Local anesthetic was given subcutaneously to right radial region with Lidocaine 2% Using a modified Seldinger technique,arterial access was obtained via the right radial artery, a 6Fr sheath was inserted. Left Coronary Artery selective angiography was performed in multiple views using a 5 Fr. 4.0 Eva catheter. Right Coronary Artery selective angiography was then performed in multiple views using a 5 Fr. 4.0 Eva catheter. Left Ventriculography was performed in GARDUNO projection using a 5 Fr. Pigtail catheter.The images were reviewed and options discussed. A decision was then made to proceed with an Intervention, IVUS or other adjunct procedure. XB 3.0 Guide catheter was inserted and engaged into the LCA. Runthrough Guide wire was advanced to the Circumflex. [place] 2.50x34 Drug Eluting stent was inserted. Angiogram performed post stent deployment. NC Emerge 2.50x15 Balloon catheter was inserted. Angiogram performed post balloon dilatation. NC Emerge 3.00x12 Balloon catheter was inserted. Angiogram performed post balloon dilatation. The arterial sheath was pulled and a TR Band was applied for hemostasis w/ 12ml air INTERVENTION INFORMATION LESION SITE: Circumflex (Mid) Lesion Complexity: High/C, lesion length: 32 mm, In-stent restenosis: No Pre Stenosis: 80 % Pre intervention GUS flow: 3 PROCEDURE: Drug Eluting Stent with post dilatation Post Stenosis: 0 % Post intervention GUS flow: 3 Lesion Devices: Terumo .014 180cm Runthrough Extra Floppy straight Cordis 6 Fr XB3.0 100cm Guide Catheter Medtronic 2.50 x 34 ANUPAM FRONTIER JOB Terence Sci NC EMERGE MR 2.50x15 BALLOON Terence Sci NC EMERGE MR 3.00x12 BALLOON COMPLICATIONS No Complications PROCEDURE MEDICATIONS Versed 1 mg IV Fentanyl 50 mcg IV Versed 1 mg IV Oxygen: 2 L/min via nasal cannula Brilinta 180 mg PO @ 09/18/2023 08:19:47 Heparin given IA 09/18/2023 07:56:28 Heparin 7000 unit(s) IV 09/18/2023 08:43:07 Nitro 200 mcg IC 09/18/2023 09:00:40 Verapamil 2.5mg, Ntg 200mcgs, 2000 units of Heparin given IA 09/18/2023 07:56:28 IV Bolus: .9 NaCl 250 ml total 09/18/2023 09:22:51 SUMMARY OF HEMODYNAMIC DATA Time AIR REST ECG 07:11:36 Art 128/53 (79) 08:00:51 AO 137/64 (91) SA 08:06:50 LV 146/12, 26 08:13:15 LV 150/9, 18 08:13:24 09:24:27 Signed By Marilee Sylvester MD On 09/18/2023 09:29:04 Marilee Sylvester MD
[2023-09-18] MEDS: 0.9% Normal Saline (1000mL) 1,000 ML 100 ML IV (10:00)
--- NOTE | 2023-09-18 10:00 | EKG12_ITS ---
Test Reason : Blood Pressure : / mmHG Vent. Rate : 060 BPM Atrial Rate : 060 BPM P-R Int : 176 ms QRS Dur : 152 ms QT Int : 462 ms P-R-T Axes : 000 033 037 degrees QTc Int : 462 ms AV dual-paced rhythm Abnormal ECG When compared with ECG of 10-SEP-2022 17:43, Electronic ventricular pacemaker has replaced Sinus rhythm Confirmed by CLAUDIA CORNELIUS, BRADEN ([id number]), managing editor ISIDRO ATKINS ([id number]) on 09/19/2023 10:54:30 AM Referred By: Braden Hammonds Confirmed By:BRADEN HAMMONDS MD
--- OUTSIDE RECORDS SUMMARY | 2023-09-18 10:19 | XMS RPT_ITS | CCD ---
Author Name Unknown Address [address] [place] [address] Organization [facility] Care Team Providers Care Manager Corporate Strategy Name Role Phone KHASHU, ABAHY Unavailable Unavailable KHASHU, ABAHY Unavailable Unavailable NO REFERRING Unavailable Unavailable KASSIE NAGY Unavailable Unavailable JUSTIN ANDERSON Unavailable Unavailable Jada Peters MD Primary Care Provider [phone] ASHER GAITAN Attending Unavaila ble JADA PETERS [...] Unavailable Jada Peters MD Primary Care Provider [phone] Li Coppola MD Unavailable JADA PETERS Referring Unavailable LI COPPOLA [...] Primary Care Unavailable RADHATTILEEJADA Primary Care Unavailable VANESAIELEJADA Referring Unavailable KATHRYN TOBIAS Attending Unavailable LI COPPOLA Attending Unavailable KATHRYN TOBIAS Referring Unavailable VANESAI, JADA Primary Care Unavailable MERON MCKEON Referring Unavailabl e MERON MCKEON Attending [...] Attending Unavailable JADA PETERS MD Consulting Unavailable GLAYDS PEÑA MD Admitting Unavailable JADA PETERS MD [...] Propensity to adverse reactions (disorder) 6 Anaphylaxis [facility] Repository (1 source) Penicillins Drug allergy (disorder) [facility] Repository Medications Current Medications Medication Drug Class(es) [...] Coronary arteriosclerosis; Translations: [Atherosclerotic heart disease of [place] coronary artery without angina pectoris] Onset: 6 [...] 98.01 [degF] Li Coppola MD Work Phone: [facility] 05-30-2023 08:29-0400 Diastolic blood pressure 72 mm[Hg] Li Coppola MD Work Phone: [facility] 05-30-2023 08:29-0400 Heart rate 101 /min Li Cpopola MD Work Phone: [facility] 05-30-2023 08:29-0400 Respiratory rate 24 /min Li Coppola MD Work Phone: [facility] 05-30-2023 08:29-0400 SaO2% (BldA) [Mass fraction] 93 % Li Coppola MD Work Phone: [facility] 05-30-2023 08:29-0400 Systolic blood pressure 158 mm[Hg] Li Coppola MD Work Phone: [facility] 05-30-2023 06:54-0400 Body mass index (BMI) [Ratio] 29.62 kg/m2 Li Coppola MD Work Phone: [facility] 05-30-2023 06:54-0400 Body weight 90.99 kg Li Coppola MD Work Phone: [facility] 05-28-2023 05:21-0400 Body height 175.3 cm Li Coppola MD Work Phone: [facility] 05-06-2023 11:05-0400 Body mass index (BMI) [Ratio] 30.11 kg/m2 Li Coppola MD Work Phone: [facility] 05-06-2023 11:05-0400 Body temperature 97.2 [degF] Li Coppola MD Work Phone: [phone] 05-06-2023 11:05-0400 Body weight 89.81 kg Li Coppola MD Work Phone: [facility] 05-06-2023 11:05-0400 Diastolic blood pressure 68 mm[Hg] Li Coppola MD Work Phone: [facility] 05-06-2023 11:05-0400 Heart rate 67 /min Li Coppola MD Work Phone: [facility] 05-06-2023 11:05-0400 Respiratory rate 18 /min Li Coppola MD Work Phone: [facility] 05-06-2023 11:05-0400 SaO2% (BldA) [Mass fraction] 95 % Li Coppola MD Work Phone: [facility] 05-06-2023 11:05-0400 Systolic blood pressure 155 mm[Hg] Li Coppola MD Work Phone: [facility] 04-28-2023 15:05-0400 Diastolic blood pressure 70 mm[Hg] Li Coppola MD Work Phone: [facility] 04-28-2023 15:05-0400 Heart rate 81 /min Li Coppola MD Work Phone: [facility] 04-28-2023 15:05-0400 Respiratory rate 18 /min Li Coppola MD Work Phone: [facility] 04-28-2023 15:05-0400 SaO2% (BldA) [Mass fraction] 93 % Li Coppola MD Work Phone: [facility] 04-28-2023 15:05-0400 Systolic blood pressure 145 mm[Hg] Li Coppola MD Work Phone: [facility] 04-28-2023 14:42-0400 Body temperature 97.59 [degF] Li Coppola MD Work Phone: [facility] 04-28-2023 11:25-0400 Body mass index (BMI) [Ratio] 29.65 kg/m2 Li Coppola MD Work Phone: [facility] 04-28-2023 11:25-0400 Body weight 88.45 kg Li Coppola MD Work Phone: [facility] 01-14-2023 12:06-0400 Body temperature 98.01 [degF] Cali Peoples DO Work Phone: [facility] 01-14-2023 12:06-0400 Diastolic blood pressure 86 mm[Hg] Cali Peoples DO Work Phone: [facility] 01-14-2023 12:06-0400 Heart rate 77 /min Cali Peoples DO Work Phone: [facility] 01-14-2023 12:06-0400 Respiratory rate 17 /min Cali Peoples DO Work Phone: [facility] 01-14-2023 12:06-0400 SaO2% (BldA) [Mass fraction] 96 % Cali Peoples DO Work Phone: [facility] 01-14-2023 12:06-0400 Systolic blood pressure 134 mm[Hg] Cali Peoples DO Work Phone: [facility] 01-09-2023 22:00-0400 Body height 175.3 cm Cali Peoples DO Work Phone: [facility] 01-09-2023 22:00-0400 Body mass index (BMI) [Ratio] 28.38 kg/m2 Cali Peoples DO Work Phone: [facility] 01-09-2023 22:00-0400 Body weight 87.18 kg Cali Hernandez DO Work Phone: [facility] Encounters Encounter Date Encounter Type Care Provider Facility Start: 09-03-2023 ambulatory JADA CORNELIUS [facility] Start: 08-20-2023 ambulatory JADA Trejo ty:[facility] Start: 07-30-2023 End: 07-30-2023 ambulatory JADA CORNELIUS [facility] Start: 07-09-2023 End: 07-09-2023 Emergency department patient visit JOHN ASHER [facility] Start: 06-17-2023 [facility] Start: 06-17-2023 End: 06-17-2023 Subsequent hospital visit by physician Amarilys Napoles APRN-VINEYARD SUPERVISOR Work Phone: Imaging Rg Procedures Date Procedure Procedure Detail Performing Clinician Start: 08-20-2023 Follow-up visit Follow-up KATHRYN TOBIAS Start: 06-17-2023 Radiologic exam ches t 2 views Amarilys Napoles ACCOUNT SERVICES ASSOCIATE-VINEYARD SUPERVISOR Work Phone: Start: 05-30-2023 Radiologic exam ches t single view Amarilys Napoles ACCOUNT SERVICES ASSOCIATE-VINEYARD SUPERVISOR Work Phone: Start: 05-30-2023 Radiologic exam ches t single view Eloina Carey ACCOUNT SERVICES ASSOCIATE-VINEYARD SUPERVISOR Work Phone: Start: 05-30-2023 Assay of magnesium [...] MD Work Phone: Start: 05-06-2023 Antibody screen [facility] [employer] [facility] 2 Start: 05-06-2023 Antibody screen JADA FRAN Plan of Treatment Date Care Activity Detail Author Start: 2030 Tetanus vaccination [facility] Start: 07-30-2023 End: 07-30-2023 Patient encounter procedure 07/30/2023 11:40 AM EST Office Visit Division of Medical Oncology at [facility] [address] [place] [address] Kathryn Tobias MD [address] [place] [address] Division of Medical Oncology at [facility] Start: 07-12-2023 Hemoglobin A1c measurement A1C [facility] Start: 06-17-2023 End: 06-17-2023 Patient encounter procedure 06/17/2023 12:15 PM EST Office Visit Division of Thoracic Surgery at [facility] [address] [place] [address] Li Coppola MD [address] [place] [address] Division of Thoracic Surgery at [facility] Start: 06-11-2023 End: 06-11-2023 Brnchsc incl fluor gdnce dx w/cell washg spx BRONCHOSCOPY FLEXIBLE DIAGNOSTIC NSCLC of right lung 06/11/2023 11:15 AM EST [facility] Start: 06-11-2023 End: 06-11-2023 Evaluation and management of inpatient [facility]CT PERIOP Immunizations Immunization Date Immunization Notes Care Provider Fa cility 04-22-2022 influenza virus vaccine, unspecified formulation Li Coppola MD Work Phone: [facility] Payers Date Payer Category Payer Medicare [id number] 2022 Medicare [id number] 2013 Medicare [id number] 1945 Unknown [id number] 2.16. 840.1.634430.3.579.2.902 1945 Unknown [id number] 2. 840.1.010084.3.579.2.902 1946 Unknown [id number] 2. 840.1.804243.3.579.2.902 1946 Unknown [id number] 2. 840.1.020304.3.579.2.902 1946 Unknown [id number] 2.. 840.1.431131.3.579.2.594 1946 Unknown [id number] 2. 840.1.272009.3.579.2.594 1946 Unknown [id number] 2. 840.1.353552.3.579.2.594 1946 Unknown [id number] 2.16 840.1.621610.3.579.2.594 1946 Unknown [id number] 2.16. 840.1.635406.3.579.2.594 1946 Unknown [id number] 2.16 840.1.215538.3.579.2.594 1946 Unknown [id number] 2. 840.1.959527.3.579.2.594 1946 Unknown [id number] 2.16. 840.1.320623.3.579.2.594 1946 Unknown [id number] 2.. 840.1.822294.3.579.2.594 1946 Unknown [id number] 2.16. 840.1.049796.3.579.2.594 1946 Unknown [id number] 2.. 840.1.745840.3.579.2.594 1946 Unknown [id number] 2.. 840.1.726489.3.579.2.594 1946 Unknown [id number] 2.. 840.1.113614.3.579.2.594 1946 Unknown [id number] 2.. 840.1.987589.3.579.2.594 1946 Unknown [id number] 2. 840.1.320031.3.579.2.594 1946 Unknown [id number] 2.. 840.1.744432.3.579.2.594 1946 Unknown [id number] .16.8 40.1.100604.3.579.2.651 1946 Unknown [id number] .16.8 40.1.622198.3.579.2.651 1946 Unknown [id number] 2.16.8 40.1.519072.3.579.2.651 1946 Unknown [id number] 2.16.8 40.1.116660.3.579.2.651 1946 Unknown [id number] 2.16.84 0.1.103123.3.579.2.651 1946 Unknown [id number] 2.16.84 0.1.563394.3.579.2.651 1946 Unknown [id number] 2.16.84 0.1.888051.3.579.2.651 Medicare [id number] Social History Date Type Detail Facility Start: 01-16-2016 End: 04-16-2023 Tobacco smoking status NHIS Ex-smoker [facility] End: 01-15-1993 History of tobacco use Current smoker [facility] End: 01-15-1993 History of tobacco use Cigarette Smoker [facility] Start: 01-13-2023 Alcohol intake Current non-drinker of alcohol (finding) [facility] Start: 01-13-2023 End: 06-17-2023 History of Social function [facility] Start: 01-13-2023 End: 06-17-2023 Tobacco use panel [facility] Start: 1945 Sex Assigned At Not on file [facility] Start: 01-09-2023 Gender identity Identifies as male gender (finding) [facility] Start: 01-15-2023 Sexual orientation Heterosexual (finding) [facility] Start: 04-16-2023 Tobacco use and exposure Smokeless tobacco non-user [facility] Start: 04-23-2023 End: 06-17-2023 Alcohol intake Ex-drinker (finding) [facility] How hard is it for y ou to pay for the very basics like food, housing, medical care, and heating Not hard at all [facility] In the past 12 month s, was there a time when you were not able to pay the mortgage or rent on time? No [facility] How often to you hav e a drink containing alcohol? Never [facility] (I/We) worried whebhargav er (my/our) food would run out before (I/we) got money to buy more. Never true [facility] Medical Equipment Procedure Code Equipment Code Equipment Origin al Text Equipment Identifier Dates Envelope Anti-Bacterial Aigis/Tyrx Pacer Resorbable Mesh - [id number], [id number] FDA Start: 01-13-2023 Pacer [id number] Viridiana re Xt Dr Mri - [id number] , [id number] FDA Start: 01-13-2023 Lead 5076-52 Cap sure Fix - [id number], [id number] FDA Start: 01-13-2023 Mdt [id number] [place] Xt Dr Connors [id number] Start: 01-12-2023 Mdt 5076 Capsure fix Novus [id number] Start: 01-12-2023 Clinical Notes 01-09-2023 to 05-30-2023 Nursing Notes - Abby Banks RN - 05/30/2023 12:35 PM EDTNursing Notes - Abby Banks RN - 05/30/2023 12:35 PM EDTNursing Notes - Amarilys Valentine RN - 05/30/2023 10:39 AM EDTMedications Note Date & Type Note Facility 05-30-2023 Nurse Note AVS reviewed with patient. All questions answered. [facility] 05-30-2023 Miscellaneous Notes AVS reviewed with [...] Summary. Imaging [facility]g [address] [facility] [address] [facility] [id number] Follow up on 06/17/2023 arrive for your walk in chest x-ray 30 min before your appt Division of Thoracic Surgery at [facility] [address] [place] [id number] Follow up on 06/17/2023 Post-op appointment with [...] and assistance is needed, please page the community nutrition educator PCRM at [phone]. DECLAN Harris, RN, ACM-RN Patient Care Nursing Department Chairperson 05/29/23 1041 Referral Information Arrived From operating room Readmission Information Was patient readmitted within 30 Days? Yes Information Source Information Source patient Information Source Name Tabatha (patient) Information Source Number See demographics Outpatient Providers Outpatient Providers Updated In IHIS Yes Contact Information Optical Goods Worker/SW Added to Care Team Yes This Geological E Logger is Primary Optical Goods Worker/SW Yes Optical Goods Worker Name Amarilys Gomez Optical Goods Worker's Social Work Contact Name Joana Armstrong Media Sales Executive's Living Environment Lives With spouse Living Arrangements [...] Retired Employment/Financial Concerns no Source Of Income pension/prison;social security Financial Concerns none Insurance Medical Insurance Verified Yes Prescription Coverage Yes Pharmacy updated in IHIS Yes Initial Discharge Planning Home Care Services (SALES SUPERINTENDENT) No Home Therapies (SALES SUPERINTENDENT) None DME (SALES SUPERINTENDENT) Straight cane Medical Supplies (SALES SUPERINTENDENT) Blood Pressure Monitor Patient Goal for Discharge [...] male former smoker with history of AAA, [place] (s/p stent placement x 4 on plavix), AV block s/p pacemaker placement, TIA, VANDANA who was initially referred by Dr. Tobias for surgical evaluation of right upper lobe squamous cell carcinoma. To review, he underwent a biopsy of the right upper lobe in [place] which demonstrated NSCLC favoring squamous cell carcinoma. [...] Planned DECLAN Harris, RN, ACM-RN Patient Care Nursing Department Chairperson No acute change noted from previous assessment at this time unless otherwise indicated on the flow sheet and/or notes. Problem: Patient Care Overview Goal: Plan of Care Review Outcome: Ongoing On admission to [facility], from PACU a dual RN initial assessment [...] Intercostal Nerve Blocks. Surgeon: Li Coppola M.D. Dipper Machine Operator: Alessandra Mace DO (fellow), Meron Stahl PA-C. [...] Li Coppola MD 05/28/2023 1024 Drains: 28 Moldovan Chest Tube. Complications: None. Disposition: The patient [...] transferred to the operating room at the [facility]. Intravenous lines and an arterial line [...] located in the posterior apical segment. The PakSensei Xi robot was then docked to the [...] was no evidence of bleeding. A 28 Moldovan straight chest tube was placed through the [...] DO MPH Cardiothoracic Surgery Fellow Pager ID #[phone] documented in this encounter [facility] 05-30-2023 Nurse Note 05/30/23 1038 Referral Information Arrived From operating room Final Discharge Planning Discharge Disposition Home SEMAJ/THOMAS ORELLANA Portion Completed Yes Plan Plan Anticipating discharge to home today Patient/Family In Agreement With Plan yes Plan Comments Daughter will provide transportation home. Transport Request Mode of Transfer Private Vehicle [facility] Discharge Note Patient discussed in medical rounds [...] Visit Summary. Imaging Rg [address] [phone] Follow up on 06/17/2023 arrive for your walk in chest x-ray 30 min before your appt Division of Thoracic Surgery at [facility] [address] [address] Follow up on 06/17/2023 Post-op appointment with [...] and assistance is needed, please page the community nutrition educator PCRM at [phone]. DECLAN Harris, RN, ACM-RN Patient Care Nursing Department Chairperson [facility] 05-30-2023 History of Present illness Narrative Chest Tube Removal Note Right chest tube output 390 ml/24 hours, no air leak. Right chest tube removed per protocol. Patient tolerated well. Purse string suture tied. Dry dressing applied to site. CXR pending. JOHN Escobar #[id number] Anesthesia Acute Pain Progress Note S: [...] sign off at this time. Please call [phone] or page [phone] with any questions or concerns. Gerald Valentine MD Anesthesiology PGY1 Inpatient Progress Note: Tabatha Penny Date: 05/29/2023 12:17 PM Chief Complaint: Squamous cell carcinoma of right lung Primary Surgeon: Li Coppola MD [place]: Tabatha Penny is a 78 y.o. male former smoker with history of AAA, [place] (s/p stent placement x 4 on plavix), AV block s/p pacemaker placement, TIA, VANDANA who was initially referred by Dr. Tobias for surgical evaluation of right upper lobe squamous cell carcinoma. To review, he underwent a biopsy of the right upper lobe in [place] which demonstrated NSCLC favoring squamous cell carcinoma. [...] Cad (Coronary Artery Disease) H/X of 4 NH's s/p 5 stent placements. Continue aspirin. Hold [...] plan of care discussed with JOHN Richards #[id number] Introduced self and role of the him analyst to patient/family. 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 He reports that his daughter and neighbors and keeping an eye on her but that he is eager to get back to her. He reports that it is also important to him to get home to his dog who is giving his family a hard time as he is not there. Offered active listening, comfort, support and prayer. Patient/family encouraged to request a him analyst as needed. Chaplains are available in-house 24 hours a day and 7 days a week. For urgent matters in the [place], please page [phone]. If the request is not urgent, please enter a consult. Consults are responded to within 24 hours. Intern Brand Kaitlin Bray, JESSIiv,MAHL, [facility] Senior Intern Brand, Kassie 12, 18, 19 17/02 On-Call Pager [place]assie ([phone]) 05/29/23 1104 Clinical Encounter Type Visited With Patient Visit Type Introduction Pastoral Time Spent 45 min Scientology Encounters Scientology Needs Prayer Spiritual Assessment Spiritual Observation Spirituality helpful Emotional Observation Coping well Hope Observation Specific hope focus Support Observation By Family;By Friend Interventions Provided Active listening;Prayer;Supportive presence Facilitated Verbalization of feelings Explored Expectations;Family issues Planting Machine Crewman Education Planting Machine Crewman Service Available Yes Educated Patient Outcomes Patient [...] and lymph node dissection per Bailey Pearce, ACCOUNT SERVICES ASSOCIATE-VINEYARD SUPERVISOR note on 05/29/23. SW met with patient to introduce self, explain web content & social media manager role during inpatient stay, and answer questions. Patient was alert and oriented x3 and agreeable to SW visit. Contact Information Optical Goods Worker Name: Amarilys Gomez Optical Goods Worker's Social Work Contact Name: Joana Armstrong Media Sales Executive's Advance Directives Type of Advance Directives Currently on File: healthcare power of attorney at law, living will Patient Requesting to Complete/Update the Following Advance Directive: Not at this time Advance Directive Discussion: Per chart review, patient already has completed Living Will and Healthcare Power of Cross Country Coach (HCPOA) on file. SW reviewed the document(s) with patient and they confirmed documents are current and reflective of their wishes. The following individual(s) are named as decision makers in the patient's HCPOA: Primary Agent: spouse, Francia Penny, (ph: [phone]) First Alternate Agent: daughter, Rosie Penny, (ph: [phone]) Legal NOK: Spouse, Francia Penny, (ph: [phone]) Emotional/Psychological Affect: no deficits noted Mood: congruent [...] strong support system Sources Of Support: adult child(jennfier), friend(s) Reaction To Health Status: accepting Understanding Of Condition And Treatment: adequate understanding of medical condition, adequate understanding of treatment Values/Beliefs (F) Elizabeth Importance: Patients reports that he has a relationship with Robert. Spiritual Care Comment: Patient made aware of available pastoral care. Employment/Financial Employed?: Retired Employment/Financial Concerns: no Source Of Income: pension/prison, social security Financial Concerns: none Food Insecurity [...] place to sleep or slept in a usp (including now)?: No Utilities In the past [...] (4:30pm-8am) and Weekend SW needs please call [phone] or page [phone] Inpatient Progress Note: Tabatha Penny Date: 05/29/2023 9:33 AM Chief Complaint: Squamous cell carcinoma of right lung Primary Surgeon: Li Coppola MD [place]: Tabatha Penny is a 78 y.o. male former smoker with history of AAA, [place] (s/p stent placement x 4 on plavix), AV block s/p pacemaker placement, TIA, VANDANA who was initially referred by Dr. Tobias for surgical evaluation of right upper lobe squamous cell carcinoma. To review, he underwent a biopsy of the right upper lobe in [place] which demonstrated NSCLC favoring squamous cell carcinoma. [...] recommendations. JOHN Warren documented in this encounter [facility] 05-29-2023 Nurse Note 05/29/23 1041 Referral Information Arrived From operating room Readmission Information Was patient readmitted within 30 Days? Yes Information Source Information Source patient Information Source Name Tabatha (patient) Information Source Number See demographics Outpatient Providers Outpatient Providers Updated In IS Yes Contact Information Optical Goods Worker/SW Added to Care Team Yes This Geological E Logger is Primary Optical Goods Worker/SW Yes Optical Goods Worker Name Amarilys Gomez Optical Goods Worker's Social Work Contact Name Joana Armstrong Media Sales Executive's Living Environment Lives With spouse Living Arrangements [...] Retired Employment/Financial Concerns no Source Of Income pension/prison;social security Financial Concerns none Insurance Medical Insurance Verified Yes Prescription Coverage Yes Pharmacy updated in IHIS Yes Initial Discharge Planning Home Care Services (SALES SUPERINTENDENT) No Home Therapies (SALES SUPERINTENDENT) None DME (SALES SUPERINTENDENT) Straight cane Medical Supplies (SALES SUPERINTENDENT) Blood Pressure Monitor Patient Goal for Discharge [...] Assessment MARCIE and THOMAS Armstrong met with [facility] to complete the initial assessment. Explained role and function of PCRM in multidisciplinary team. Contact number provided for questions. Demographic information reviewed with patient/family and confirmed as correct. Reason for Admission: 78 y.o. male former smoker with history of AAA, [place] (s/p stent placement x 4 on plavix), AV block s/p pacemaker placement, TIA, VANDANA who was initially referred by Dr. Tobias for surgical evaluation of right upper lobe squamous cell carcinoma. To review, he underwent a biopsy of the right upper lobe in [place] which demonstrated NSCLC favoring squamous cell carcinoma. [...] Planned DECLAN Harris, RN, ACM-RN Patient Care Nursing Department Chairperson [facility] 05-29-2023 Consult note Formatting of th [...] forearm. The right hand is WNL. Assessment [facility] seen and evaluated for peripheral IV insertion [...] 2: Location: forearm, anterior, right Device/Lot Number: [id number] catheter system Gauge/Length: 20 gauge;1 3/4 in length Unsuccessful Insertion Attempts: 0 Unsuccessful Attempt Location/Site: Pain Prevention/Patient Tolerance: distraction;tolerated well Removal: Additional Comments: Lumen 3: Peripheral IV Present on Admission: (Retired/Read Only) Location: (Retired/Read Only) Device: (Retired/Read Only) Gauge/Length: Senior Validation Engineer/Lot Number: Unsuccessful Insertion Attempts: (Retired/Read Only) Unsuccessful [...] care of this patient. Vascular Access Team [id number] [facility] 05-29-2023 Consult note Formatting of th [...] 2: Location: forearm, anterior, right Device/Lot Number: [id number] catheter system Gauge/Length: 20 gauge;1 3/4 in length Unsuccessful Insertion Attempts: 0 Unsuccessful Attempt Location/Site: Pain Prevention/Patient Tolerance: distraction;tolerated well Removal: Additional Comments: Lumen 3: Peripheral IV Present on Admission: (Retired/Read Only) Location: (Retired/Read Only) Device: (Retired/Read Only) Gauge/Length: Senior Validation Engineer/Lot Number: Unsuccessful Insertion Attempts: (Retired/Read Only) Unsuccessful [...] care of this patient. Vascular Access Team [id number] documented in this encounter [facility] 05-29-2023 Plan of care note No acute change noted from previous assessment at this time unless otherwise indicated on the flow sheet and/or notes. Problem: Patient Care Overview Goal: Plan of Care Review Outcome: Ongoing [facility] 05-28-2023 Nurse Note On admission to [facility], from PACU a dual RN initial assessment of skin condition was performed by Jagruti Couch RN and Irene Sesay RN. Skin Assessment: Skin within defined limits:Yes. Right sided chest tube intact w/ +1 air leak, incisions with dermabond. Galloway in place. 2 PIV intact. Alfredito Score: 23 LDA Added:No Jagruti Couch RN [facility] 05-28-2023 Surgery Postoperative evaluation and management note Thoracic Surgery Operative Report Date: 05/28/23 Preoperative Diagnosis: right upper lobe squamous cell carcinoma Postoperative Diagnosis: right upper lobe squamous cell carcinoma Procedures Performed: Flexible Bronchoscopy Robotic-Assisted Thoracoscopic Right Upper Lobectomy Right Thoracoscopic Mediastinal and regional Lymph Node Dissection Intercostal Nerve Blocks. Surgeon: Li Coppola M.D. Dipper Machine Operator: Alessandra Mace DO (fellow), Meron Stahl PA-C. [...] Li Coppola MD 05/28/2023 1024 Drains: 28 Moldovan Chest Tube. Complications: None. Disposition: The patient [...] transferred to the operating room at the [facility]. Intravenous lines and an arterial line [...] located in the posterior apical segment. The PakSensei Xi robot was then docked to the [...] was no evidence of bleeding. A 28 Moldovan straight chest tube was placed through the [...] DO MPH Cardiothoracic Surgery Fellow Pager ID #[phone] [facility] Work Phone: 05-28-2023 Hospital Discharge instructions Amarilys Valentine RN - 05/28/2023 8:54 AM EDT Images from the original note were not included. Your Optical Goods Worker (PCRM) has arranged your appointments for follow [...] the hospital. This call will come from [phone]. If you are unable to answer or do not receive the automated call, please call [phone] to complete this important evaluation. By answering the phone evaluation, a Kassie nurse will be notified if you have any questions or concerns and call you back. If you have an immediate medical need call your doctor s office, or if you have a medical emergency call 911. Amarilys Napoles APRN-VINEYARD SUPERVISOR - 05/28/2023 8:55 AM EDT RESTART YOUR [...] hours a day, 7 days a week: [phone] Outpatient Optical Goods Worker: Philippe Alonso [phone] Outpatient Media Sales Executive: Ann Marie George [phone] Inpatient Optical Goods Worker: Amarilys Valentine [phone] Inpatient Media Sales Executive: Joana Gill [phone] Amarilys Valentine RN - 05/28/2023 8:56 AM [...] be sent through Care Everywhere.Incentive Spirometer ([facility]) (Ghanaian)Pain Post-Surgery: Acute (Ghanaian)documented in this encounter [facility] 05-28-2023 History of Present illness Narrative [...] original device settings. documented in this encounter [facility] 05-28-2023 Nurse Surgical operation note Patient denies hx of chemo and radiation. Patient denies metal or foreign objects in body EXCEPT L chest PPM, Patient has hx of TIA, denies seizures. [facility] 05-28-2023 Nurse Note Patient denies hx of chemo and radiation. Patient denies metal or foreign objects in body EXCEPT L chest PPM, Patient has hx of TIA, denies seizures. documented in this encounter [facility] 05-06-2023 History of Present illness Narrative [...] factors includimng past history of stroke and NH and has an increased risk for cardiopulmonary or cerebrovascular complications after surgery, but overall, this would be acceptable, and he wants to proceed with the planned elective surgery and signed informed consent in the office today. (DOC:[id number]) Mr. Penny presents for a follow up [...] cardiovascular risk factors including previous stroke and NH and as a result has an increased risk for cardiopulmonary or cerebrovascular complications after surgery, but overall, this would be acceptable, and he wants to proceed with the planned elective surgery and signed informed consent in the office today. (DOC:[id number]) JOCScreening Do you experience shortness of breath [...] to any of the above questions? Yes: [facility] Required No: [facility] Approved Patient provided with pre-operative educational [...] Patient verbalized understanding. documented in this encounter [facility] 05-06-2023 History and physical note Images from the original note were not included. History and Physical Patient: Tabatha Penny Date: 05/06/2023 12:48 PM Attending Physician: Li Coppola MD Chief Complaint: NSCLC of the right upper lobe HPI: Tabatha Penny is a 78 y.o. male former smoker with history of AAA, NH (s/p stent placement x 4 on plavix), AV block s/p pacemaker placement, TIA, VANDANA who was initially referred by Dr. Tobias for surgical evaluation of right upper lobe squamous cell carcinoma. To review, he underwent a biopsy of the right upper lobe in [place] which demonstrated NSCLC favoring squamous cell carcinoma. [...] heart failure COVID-19 Essential hypertension, benign Hyperlipidemia NH (myocardial infarction) states he had 4 heart attacks, 5 stents and a pacemaker VANDANA (obstructive sleep apnea) Pacemaker RBBB Squamous cell carcinoma of lung TIA (transient ischemic attack) thinks this is from migraines Vascular disease Past Surgical History: Procedure Laterality Date BRONCHOSCOPY FLEXIBLE DIAGNOSTIC N/A 04/28/2023 Laterality: N/A; Surgeon: Li Coppola MD; [facility] BRONCHOSCOPY FLEXIBLE W/ EBUS DURING [...] under tongue Every 5 MINutes as needed. Moscow 3 1000 MG capsule Take 2 capsules [...] Penicillins Immunizations: Immunization History Administered Date(s) Administered 3795-0070 COVID-19 monovalent vaccine, mRNA, Pfizer, 0.3 ML 08/31/2020, 09/28/2020, 05/05/202120200326-2278 COVID-19 monovalent vaccine (Pfizer) 12yr +, 30mcg/0.3mL [...] smoker with a past medical history of NH with stent placement, AAA, AV block with [...] discussed with Li Coppola MD. Amarilys Napoles, ACCOUNT SERVICES ASSOCIATE-VINEYARD SUPERVISOR #[id number] Associated attestation - Li Coppola MD [...] of the clinic visit. The nurse practitioner/physician orthopaedic physician assistant and I have spoken with the patient and provided written and verbal instructions for the patient. The SHARA note has been reviewed and I agree with the assessment and plan. Follow-up arrangements were made prior to the patient being discharged from the clinic. Li Coppola MD [facility] 05-06-2023 History and physical note Images from the original note were not included. History and Physical Patient: Tabatha Penny Date: 05/06/2023 12:48 PM Attending Physician: Li Coppola MD Chief Complaint: NSCLC of the right upper lobe HPI: Tabatha Penny is a 78 y.o. male former smoker with history of AAA, NH (s/p stent placement x 4 on plavix), [...] heart failure COVID-19 Essential hypertension, benign Hyperlipidemia NH (myocardial infarction) states he had 4 heart attacks, 5 stents and a pacemaker VANDANA (obstructive sleep apnea) Pacemaker RBBB Squamous cell carcinoma of lung TIA (transient ischemic attack) thinks this is from migraines Vascular disease Past Surgical History: Procedure Laterality Date BRONCHOSCOPY FLEXIBLE DIAGNOSTIC N/A 04/28/2023 Laterality: N/A; Surgeon: Li Coppola MD; [facility] BRONCHOSCOPY FLEXIBLE W/ EBUS DURING BRONCH DIAGNOSTICS/INTEVENTION FO N/A 04/28/2023 Laterality: N/A; Surgeon: Li Coppola MD; [facility] OR PACEMAKER PLACEMENT 12/2022 Oncology History Squamous cell carcinoma of right lung Initial Diagnosis Squamous cell carcinoma of right lung 01/09/2023 Imaging OSH CXR Patchy left basilar pulmonary infiltrates. No effusion or pneumothorax identified. Cardiac and mediastinal silhouettes are within normal limits. Atherosclerotic calcifications involving the thoracic aorta. 03/05/2023 Pathology 03/18/2023 Imaging OSH PET 04/04/2023 Pathology Adrenal Biopsy [place]: He is not on home oxygen He [...] under tongue Every 5 MINutes as needed. Moscow 3 1000 MG capsule Take 2 capsules [...] Penicillins Immunizations: Immunization History Administered Date(s) Administered 4750-9963 COVID-19 monovalent vaccine, mRNA, Pfizer, 0.3 ML [...] smoker with a past medical history of NH with stent placement, AAA, AV block with [...] discussed with Li Coppola MD. Amarilys Napoles, ACCOUNT SERVICES ASSOCIATE-VINEYARD SUPERVISOR #[id number] Associated attestation - Li Coppola MD - [...] of the clinic visit. The nurse practitioner/physician orthopaedic physician assistant and I have spoken with the patient and provided written and verbal instructions for the patient. The SHARA note has been reviewed and I agree with the assessment and plan. Follow-up arrangements were made prior to the patient being discharged from the clinic. Li Coppola MD documented in this encounter [facility] 05-06-2023 Instructions JOHN Escobar - 05/06/2023 [...] under tongue Every 5 MINutes as needed. Moscow 3 1000 MG capsule Take 2 capsules by mouth daily. Pantoprazole [address] tablet DR Take 1 tablet by mouth daily. Vitamin E 200 units capsule Take 1 capsule by mouth daily. -STOP taking ALL vitamins and herbal medications (including fish oil, Moscow-3, garlic, glucosamine-chondroitin, gingko, ginseng, tumeric, multivitamins) 2 [...] morning of surgery. documented in this encounter [facility] 04-28-2023 Nurse Note [facility]. Vital signs taken and [...] care for patient 24 hours post-op. [facility] 04-28-2023 Miscellaneous Notes 1441-Patient arrived to [facility] from [facility] PACU via gurney. Vital signs taken and [...] in PACU. documented in this encounter [facility] 04-28-2023 Hospital Discharge instructions Kwasi Mckeon [...] Surgery Contact Information: Friday - Friday 8am-4:30pm: [phone] Evenings, weekends, holidays: [phone] and ask the cutting and creasing press operator to page the Thoracic Fellow On-Call. - You can restart your home Plavix tomorrow if you do not cough up any blood today. If you cough up blood, please hold Plavix for 24 hours. If this continues, please call our team. documented in this encounter [facility] 04-28-2023 Nurse Note 1349: This RN [...] Cortney, SANJANA. Report given to Cortney. [facility] 04-28-2023 Nurse Surgical operation note 1245 - Family notified of surgery start 1240 - Hand-off report sent to PACU charge nurse 1307 - Family called per MD request 1301 - PACU given notice of arrival 1305 - All appropriate parties notified of room turnover. 1309 - Patient extubated 1313- Transported to PACU with anesthesia at bedside on oxygen inhalation. [facility] 04-28-2023 Nurse Note 1245 - Family notified of surgery start 1240 - Hand-off report sent to PACU charge nurse 1307 - Family called per MD request 1301 - PACU given notice of arrival 1305 - All appropriate parties notified of room turnover. 1309 - Patient extubated 1313- Transported to PACU with anesthesia at bedside on oxygen inhalation. documented in this encounter [facility] 04-28-2023 Nurse Note Patient denies hx of chemo and radiation. Patient denies metal or foreign objects in body aside from a pacemaker. Patient denies hx of seizure but had a stroke. Called pacer clinic, they stated they need to see him before OR. 1200: Pacer clinic RN at bedside, states pt does not need to be seen post-op or in PACU. [facility] 01-24-2023 History of Present illness Narrative Patient Name: Tabatha Penny Date: 01/24/23 MR #: [id number] : 1945 Wound Check Assessment Type of Incision Check: Date of Device Implant 01/13/23 Implanting Honeycomb Blanket Maker: Dr. Gaitan Following Honeycomb Blanket Maker: Will be changing to Honeycomb Blanket Maker closer to home ([place]) Type and Brand [...] patient verbalized understanding. documented in this encounter [facility] 01-14-2023 Hospital course Narrative [facility] DISCHARGE SUMMARY -- [facility] Tabatha Penny Admitted: 01/09/2023 Discharge Date: 01/14/23 PCP Handoff Recommended Outpatient Testing CT chest to follow up lung nodule Results Pending At Discharge None Clinical Summary 77 y.o. male patient of Jada Peters MD with history of CAD, DM2 presented to [facility] via transfer from [facility] for symptoms of chest pain, sob [...] in ~ 10 days. Jada Peters MD [facility] [place] [address] Schedule an appointment as soon as possible [...] Richard MD - 01/14/2023 3:22 PM EDT [facility] NOTE ADDENDUM I saw and examined the patient independently of the [facility] fellow. Labs, medications, imaging and other studies were reviewed. I agree with history, physical examination findings, medical decision making and the assessment/plan. documented in this encounter [facility] 01-14-2023 History of Present illness Narrative Electrophysiology Inpatient Follow-up Heart & Vascular [facility] Physician Group 01/14/2023 Linda Schofield, [facility] Patient: Tabatha Penny Date of : 1945 (77 y.o.) PCP: Jada Peters MD Assessment/Plan: * AV block Overview 2:1 block and type 1 second degree AV block noted, no evidence of CHB. S/p MDT DC PPM with LBB pacing Device site dry and intact, no hematoma. CXR negative for pneumothorax, does note nodule- communicated with [facility] Device check this morning with appropriate device functioning Reviewed restrictions and s/s of infection Will have patient follow up for wound/device check in ~10 days. He has follow up with his new property staff accountant on 01/29. Okay to discharge from EP standpoint. Coronary artery disease involving [place]on heart Overview Prior PCI to LAD and RCA around 8-9 years ago. Prior echo showed EF 60% in 2016. SPECT in 2016 showed perfusion changes consistent with prior NH in portions of basal inferoseptal and mid to distal inferior apical/lateral segments. Assessment & Plan Echo showed EF 55%, Stress test negative for ischemia. Continue ASA, atorvastatin, and Plavix Subjective He is doing good this morning, some pain overnight at device site and took tylenol Telemetry shows paced rhythm ECG 12 Lead Final Result by Cali Hernandez DO (01/09/2023 [id number]) Echocardiogram complete w contrast Final Result by [...] mg Intravenous 60 Min Pre-Procedure Linda Schofield, VINEYARD SUPERVISOR clopidogreL (PLAVIX) tablet 75 mg 75 mg [...] Product: Sling- horizontal arm Nursing to place [facility] PROGRESS NOTE Assessment and Plan 77 y.o. male patient of Jada Peters MD with history of CAD, DM2 presented to [facility] via transfer from [facility] for symptoms of chest pain, sob [...] Richard MD - 01/13/2023 1:50 PM EDT [facility] NOTE ADDENDUM I saw and examined the patient independently of the [facility] fellow. Labs, medications, imaging and other [...] Cardiovascular and Mediastinum Coronary artery disease involving [place] heart Overview Prior PCI to LAD and RCA around 8-9 years ago. Prior echo showed EF 60% in 2016. SPECT in 2016 showed perfusion changes consistent with prior NH in portions of basal inferoseptal and mid [...] Lab Units 01/09/23 1736 TSH mcIU/mL 2.63 [facility] PROGRESS NOTE Assessment and Plan 77 y.o. male patient of Jada Peters MD with history of CAD, DM2 presented to [facility] via transfer from [facility] for symptoms of chest pain, sob [...] Cardiovascular and Mediastinum Coronary artery disease involving [place] heart Overview Prior PCI to LAD and RCA around 8-9 years ago. Prior echo showed EF 60% in 2016. SPECT in 2016 showed perfusion changes consistent with prior NH in portions of basal inferoseptal and mid [...] Lab Units 01/09/23 1736 TSH mcIU/mL 2.63 [facility] PROGRESS NOTE Assessment and Plan 77 y.o. male patient of Jada Peters MD with history of CAD, DM2 presented to [facility] via transfer from [facility] for symptoms of chest pain, sob [...] normal coloration Psych: normal mood and affect [facility] PROGRESS NOTE Assessment and Plan 77 y.o. male patient of Jada Peters MD with history of CAD, DM2 presented to [facility] via transfer from [facility] for symptoms of chest pain, sob and noted AV block. AV Block EKG reviewed from [facility], appears 2nd degree v 3rd degree [...] this time CAD With hx of multiple NH and stenting placement Pt on dapt will [...] mood and affect documented in this encounter [facility] 01-14-2023 Note Formatting of this n ote [...] of comfort function goal Outcome: Partially Met [facility] 01-14-2023 Miscellaneous Notes Problem: Actual or potential [...] identified. Associated Problem(s): Coronary artery disease involving [place] heart Troponins negative. Patient denies any active chest pain at this time. Stress negative Associated Problem(s): AV block No urgent indication for pacing. Stress test 01/10 without ischemia. Echo 01/10 with preserved EF, no valvular abnormalities. Plan is for pacemaker tomorrow documented in this encounter [facility] 01-13-2023 Note Table formatting fro m the [...] and include, but not limited to: , NH, bleeding, infection, nerve, vessel, cardiac injury, pneumothorax, [...] Implants Pacemaker Pacer W1dr01 Danuta Connors - [id number] - Implanted Inventory item: PACER W1DR01 DANUTA CONNORS Model/Cat number: [id number] Serial number: [id number] Senior Validation Engineer: Apperian MONTEZ Device identifier: [id number] Device identifier type: GS1 Implant Date: 01/13/2023 GUDID Information Request status Successful Brand name: Danuta?? XT ANNETTE Rooney?? Version/Model: W1DR01 Company name: [employer]. MRI safety info as of 01/13/23: MR Conditional Contains dry or latex rubber: No GMDN P.T. name: Dual-chamber implantable pacemaker, rate-responsive As of 01/13/2023 Status: Implanted Antibiotic Pouch Envelope Anti-Bacterial Aigis/Tyrx Pacer Resorbable Mesh - [id number] - Implanted Inventory item: ENVELOPE ANTI-BACTERIAL AIGIS/TYRX PACER RESORBABLE MESH Model/Cat number: [id number] Senior Validation Engineer: MEDTRO MONTEZ Lot number: [id number] Device identifier: [id number] Device identifier type: GS1 GUDID Information Request status (more content not included)... [facility] 01-13-2023 Note Table formatting fro m [...] and include, but not limited to: , NH, bleeding, infection, nerve, vessel, cardiac injury, pneumothorax, [...] Pacer W1dr01 Danuta Xt Dr Connors - [id number] - Implanted Inventory item: PACER W1DR01 DANUTA XT DR MRI Model/Cat number: W1DR01 Serial number: [id number] Senior Validation Engineer: MEDTR[employer] CRM Device identifier: [id number] Device identifier type: GS1 Implant Date: 01/13/2023 GUDID Information Request status Successful Brand name: Danuta GEIGER DR MRI SureScan Version/Model: W1DR01 Company name: [employer]. MRI safety info as of 01/13/23: MR Conditional Contains dry or latex rubber: No GMDN P.T. name: Dual-chamber implantable pacemaker, rate-responsive As of 01/13/2023 Status: Implanted Antibiotic Pouch Envelope Anti-Bacterial Aigis/Tyrx Pacer Resorbable Mesh - [id number] - Implanted Inventory item: ENVELOPE ANTI-BACTERIAL AIGIS/TYRX PACER RESORBABLE MESH Model/Cat number: [id number] Senior Validation Engineer: [employer] Lot number: (more content not [...] to the booklet or check with the review scheduling coordinator. Call the doctor (who put the pacemaker [...] upper arm muscles. This includes pushing a executive chairman or vacuum, mopping floors, swimming, or swinging [...] irregular heartbeat. After you call 911, the cutting and creasing press operator may tell you to chew 1 [...] Log into your personal health record on [email or web address] and enter G550 in the Education box to learn more about Pacemaker Placement: What to Expect at Home. Current as of: October 06, 2013 Content Version: 10.3 [employer]. Care instructions adapted under license by your healthcare professional. If you have questions about a medical condition or this instruction, always ask your healthcare professional. [employer] disclaims any warranty or liability for your use of this information. documented in this encounter [facility] 01-11-2023 Note Formatting of this n ote [...] of comfort function goal Outcome: Partially Met [facility] 01-10-2023 Note Formatting of this n ote [...] of comfort function goal Outcome: Partially Met [facility] 01-10-2023 Note Formatting of this n ote might be different from the original. 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 Junctional escape beats noted. No CHB identified. [facility] 01-10-2023 Evaluation + Plan note Associated Problem(s): Coronary artery disease involving [place] heart Troponins negative. Patient denies any active chest pain at this time. Stress negative T [facility] 01-10-2023 Evaluation + Plan note Associated Problem(s): AV block No urgent indication for pacing. Stress test 01/10 without ischemia. Echo 01/10 with preserved EF, no valvular abnormalities. Plan is for pacemaker tomorrow [facility] 01-10-2023 Consult note Associated Order (s): IP CONSULT TO CARDIOLOGY Electrophysiology Inpatient Consult Heart & Vascular [facility] 01/10/2023 Linda Schofield CNP [facility] Patient: Tabatha Penny Date of : 1945 (77 y.o.) Referring Provider: No ref. provider found PCP: Jada Peters MD Assessment/Plan: * AV block Assessment & Plan Per telemetry review noted second-degree type I and possible 2-1 block. No complete heart block noted. Unable to find EKG from [facility]. Recommend stress test in the setting of new onset chest pain over the past few weeks. His echo is pending. No urgent indication for pacing. Will make final recommendations pending stress/echo results. Holding home metoprolol. Coronary artery disease involving [place] heart Overview Prior PCI to LAD and RCA around 8-9 years ago. Prior echo showed EF 60% in 2016. SPECT in 2016 showed perfusion changes consistent with prior NH in portions of basal inferoseptal and mid to distal inferior apical/lateral segments. Assessment & Plan Troponins negative. Patient denies any active chest pain at this time. Ordered stressed test. Subjective Reason for Consultation: AV block History of Present Illness: Tabatha Penny is a 77 y.o. male with past medical history of CAD s/p PCI, COPD, type 2 diabetes, former smoker presented to [facility] for complaints of chest pain and shortness of breath. According to [facility] patient was in an second degree or third-degree AV block and was transferred to [place] for further evaluation. Says he has noticed [...] 2-1 block. Unable to review EKG from [facility]. His echocardiogram is pending. Independently reviewed labs [...] Echocardiogram complete w contrast by Merly Elise [facility] (01/09/[id number]) Review of Systems: Review of Systems Constitutional: Negative. Respiratory: Negative. Cardiovascular: Negative. Skin: Negative. Neurological: Negative. Psychiatric/Behavioral: Negative. Past Medical History: Diagnosis Date CAD (coronary artery disease) 01/15/2016 Stent COPD (chronic obstructive pulmonary disease) ([facility]) Diabetes 1.5, managed as type 2 ([facility]) 01/15/2016 Hyperlipidemia 01/15/2016 Hypertension 01/15/2016 [...] 75 mg 75 mg Oral Daily Edward Temlpe DO losartan (COZAAR) tablet 50 mg 50 [...] heart block during his admission here at [facility]. The patient does have evidence of prior [...] show any ST changes consistent with ischemia. [facility] 01-10-2023 Consult note Associated Order (s): IP CONSULT TO CARDIOLOGY Electrophysiology Inpatient Consult Heart & Vascular [facility] 01/10/2023 Linda Schofield CNP [facility] Patient: Tabatha Penny Date of : 1945 [...] Holding home metoprolol. Coronary artery disease involving [place] heart Overview Prior PCI to LAD and RCA around 8-9 years ago. Prior echo showed EF 60% in 2016. SPECT in 2016 showed perfusion changes consistent with prior NH in portions of basal inferoseptal and mid to distal inferior apical/lateral segments. Assessment & Plan Troponins negative. Patient denies any active chest pain at this time. Ordered stressed test. Subjective Reason for Consultation: AV block History of Present Illness: Tabatha Penny is a 77 y.o. male with past medical history of CAD s/p PCI, COPD, type 2 diabetes, former smoker presented to [facility] for complaints of chest pain and shortness of breath. According to [facility] patient was in an second degree or third-degree AV block and was transferred to [place] for further evaluation. Says he has noticed [...] 2-1 block. Unable to review EKG from [facility]. His echocardiogram is pending. Independently reviewed labs [...] 01/15/2016 Stent COPD (chronic obstructive pulmonary disease) ([facility]) Diabetes 1.5, managed as type 2 ([facility]) 01/15/2016 Hyperlipidemia 01/15/2016 Hypertension 01/15/2016 [...] flush 5 mL 5 mL Intravenous Q8H [facility] Edward Temple DO 5 mL at [...] heart block during his admission here at [facility]. The patient does have evidence of prior [...] consistent with ischemia. documented in this encounter [facility] 01-09-2023 History and physical note [facility] HISTORY AND PHYSICAL -- [facility] Patient Name: Tabatha Penny : 1945 MR #: [id number] Admit Date: 01/09/2023 Physicians: Jada Peters MD (Family); No ref. provider found (Referring) Tabatha Penny is a 77 y.o. male patient of Jada Peters MD with history of CAD, DM2 presented to [facility] via transfer from [facility] for symptoms of chest pain, sob and noted AV block. AV Block EKG reviewed from [facility], appears 2nd degree v 3rd degree. [...] atropine/external pacing CAD With hx of multiple NH and stenting placement Pt on dapt will [...] hospital or ED yes -- care site [facility] Quality Measures DVT Prophylaxis: SCDs [place] [...] multiple stenting, hypertension, COPD who presents to [facility] from outside hospital with concern for AV [...] 01/15/2016 Stent COPD (chronic obstructive pulmonary disease) ([facility]) Diabetes 1.5, managed as type 2 ([facility]) 01/15/2016 Hyperlipidemia 01/15/2016 Hypertension 01/15/2016 [...] normal coloration Psych: normal mood and affect [employer] Work Phone: 01-09-2023 History and physical note [facility] HISTORY AND PHYSICAL -- [facility] Patient Name: Tabatha Penny : 1945 MR #: [id number] Admit Date: 01/09/2023 Physicians: Jada Peters MD (Family); No ref. provider found (Referring) Tabatha Penny is a 77 y.o. male patient of Jada Peters MD with history of CAD, DM2 presented to [facility] via transfer from [facility] for symptoms of chest pain, sob and noted AV block. AV Block EKG reviewed from [facility], appears 2nd degree v 3rd degree. [...] atropine/external pacing CAD With hx of multiple NH and stenting placement Pt on dapt will [...] hospital or ED yes -- care site [facility] Quality Measures DVT Prophylaxis: SCDs [place] [...] multiple stenting, hypertension, COPD who presents to [place] from outside hospital with concern for AV [...] 01/15/2016 Stent COPD (chronic obstructive pulmonary disease) ([facility]) Diabetes 1.5, managed as type 2 ([facility]) 01/15/2016 Hyperlipidemia 01/15/2016 Hypertension 01/15/2016 [...] mood and affect documented in this encounter [facility] 01-09-2023 Physician Emergency department Note Associated Order(s): ECG 12 Lead ED PROVIDER NOTE [facility] EMERGENCY [facility]PARTMENT NAME: Tabatha Penny AGE: 77 y.o. : 1945 VISIT DATE: 01/09/2023 CSN: [id number] PCP: Jada Peters MD Chief Complaint Patient [...] 01/15/2016 Stent COPD (chronic obstructive pulmonary disease) ([facility]) Diabetes 1.5, managed as type 2 ([facility]) 01/15/2016 Hyperlipidemia 01/15/2016 Hypertension 01/15/2016 [...] Patchy left basilar pulmonary infiltrates. 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 Cali Hernandez DO 01/09/23 1849 [facility] 01-09-2023 Emergency department Note Associated Order(s): ECG 12 Lead ED PROVIDER NOTE [facility] EM[facility]ENCY [facility] NAME: Tabatha Penny AGE: 77 y.o. : 1945 VISIT DATE: 01/09/2023 CSN: [id number] PCP: Jada Peters MD Chief Complaint Patient [...] 01/15/2016 Stent COPD (chronic obstructive pulmonary disease) ([facility]) Diabetes 1.5, managed as type 2 ([facility]) 01/15/2016 Hyperlipidemia 01/15/2016 Hypertension 01/15/2016 [...] Patchy left basilar pulmonary infiltrates. 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 Cali Hernandez DO 01/09/23 1106 Pt to ED from [facility] for cardiology consult 2/2 complete heart block. Hx of 5 stents. EP not available at [facility]. Accepted by [facility]. Pt denies CP, SOB, dizziness, light headedness, or other symptoms. Pt states he was working outside on a deck this afternoon and he became weak and had onset of cp at that time. Bed: 56 Expected date: Expected time: Means of arrival: Comments: Medic, heart block tx, peoples documented in this encounter [facility] 01-09-2023 Emergency department Triage note Pt to ED from [facility] for cardiology consult 2/2 complete heart block. Hx of 5 stents. EP not available at [facility]. Accepted by [facility]. Pt denies CP, SOB, dizziness, light headedness, or other symptoms. Pt states he was working outside on a deck this afternoon and he became weak and had onset of cp at that time. [facility] 01-09-2023 Emergency department Note Bed: 56 Expected date: Expected time: Means of arrival: Comments: Medic, heart block tx, peoples [facility] documented in this encounter [facility] Diagnosis Mediastinal lymphadenopathy Enlargement of lymph nodes [facility] Diagnosis Squamous cell carcinoma of right lung Neoplasm of unspecified behavior of unspecified site NSCLC of right lung [facility] Diagnosis NSCLC of right lung NSCLC of right lung [facility] Diagnosis Squamous cell carcinoma of right lung- Primary Neoplasm of unspecified behavior of unspecified site NSCLC of right lung [facility] Diagnosis Squamous cell carcinoma of right lung- Primary Squamous cell carcinoma of right lung NSCLC of right lung Acute post-operative pain CAD (coronary artery disease) Coronary atherosclerosis of unspecified type of vessel, [place] or graft Essential hypertension, benign Overweight (BMI 25.0-29.9) Overweight Hyperlipidemia Other and unspecified hyperlipidemia VANDANA (obstructive sleep apnea) Obstructive sleep apnea (adult) (pediatric) GERD (gastroesophageal reflux disease) Esophageal reflux Health education/counseling Counseling NOS At moderate risk for venous thromboembolism (VTE) Acute post-operative pain Leukocytosis Leukocytosis, unspecified [facility] (Routine) Specialty Diagnoses / Procedures Referred By Contac t Referred To Contact KASSIE [address] [place] [phone] Referral ID Status Reason Start Date Expiration Date Visits Re quested Visits Authorized * Radiology (Routine) - New Request Specialty Diagnoses / Procedures Referred By Contac t Referred To Contact Procedures PACEMAKER/ICD INTERROGATION Li Coppola MD [address] [place] [phone] Referral ID Status Reason Start Date Expiration Date V isits Requested Visits Authorized [id number] New Request 05/28/2023 06/21/2024 1 1 * (Routine) - New Request Specialty Diagnoses / Procedures Referred By Contac t Referred To Contact Procedures PLATELET MONITORING PER PROTOCOL Meron Mckeon, PAC [address] [place] [phone] Referral ID Status Reason Start Date Expiration Date V isits Requested Visits Authorized [id number] New Request 05/28/2023 06/21/2024 1 1 * (Routine) - New Request Specialty Diagnoses / Procedures Referred By Contac t Referred To Contact Procedures DVT/VTE RISK ASSESSMENT Meron Mckeon, PAC [address] [place] [phone] Referral ID Status Reason Start Date Expiration Date V isits Requested Visits Authorized [id number] New Request 05/28/2023 06/21/2024 1 1 * Radiology (Emergency) - New Request Specialty Diagnoses / Procedures Referred By Haleigh rubio Referred To Contact Procedures PACEMAKER/ICD INTERROGATION Roxann Solomon MD [address] [place] [address] Referral ID Status Reason Start Date Expiration Date V isits Requested Visits Authorized [id number] New Request 05/28/2023 06/21/2024 1 1 [facility] Summary Purpose Family History No Family [...] Documents on File Type Date Recorded 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 HealthCare Power of Cross [employer] Coach 04/28/2023 11:40 AM Advance Directives/Living Will 04/28/2023 11:40 AM HealthCare Power of Cross [employer] Coach 10/29/2014 Advance Directives/Living Will 10/29/2014 Latest Code Status on File Code Status Date Activated Date Inactivated Comments Full Code 04/28/2023 11:42 AM Documents on File Type Date Recorded 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 HealthCare Power of Cross Country Coach 04/28/2023 11:40 AM Advance Directives/Living Will 04/28/2023 11:40 AM HealthCare Power of [employer] Coach 10/29/2014 Advance Directives/Living Will 10/29/2014 Latest Code Status on File Code Status Date Activated Date Inactivated Comments Full Code 04/28/2023 11:42 AM Reason for Referral Specialty Diagnoses / Procedures Referred By Contac t Referred To Contact Cardiology Diagnoses AV block Procedures Outpatient Device Clinic Referral - Open for details Asher Gaitan MD [address] [place] [phone] Referral ID Status Reason Start Date Expiration Date V isits Requested Visits Authorized [id number] Authorized 01/13/2023 01/13/2024 1 1 Specialty Diagnoses / Procedures Referred By Contac t Referred To Contact Procedures PACEMAKER/ICD INTERROGATION Li Coppola MD [address] [place] [address] Referral ID Status Reason Start Date Expiration Date V isits Requested Visits Authorized [id number] New Request 04/28/2023 05/22/2024 1 1 Specialty Diagnoses / Procedures Referred By Contac t Referred To Contact Diagnoses NSCLC of right lung Procedures PFT STANDARD Meron Mckeon, PAC [address] [place] [phone] Referral ID Status Reason Start Date Expiration Date V isits Requested Visits Authorized [id number] New Request 04/22/2023 05/16/2024 1 1 Additional Source Comments (unrecognized sect ion and content) No Status Records FoundNo Status Records FoundNo Status Records FoundNo Status Records FoundNo Status Records Found INFORMATION SOURCE (unrecogn ized section and content) DATE CREATED AUTHOR AUTHOR'S ORGANIZ ATION 05/31/2021 [facility] DATE CREATED AUTHOR AUTHOR'S ORGANIZ ATION 01/30/2023 [facility] DATE CREATED AUTHOR AUTHOR'S ORGANIZ ATION 08/22/2023 [facility] DATE CREATED AUTHOR AUTHOR'S ORGANIZ ATION 09/04/2023 [facility] Reason for Visit (unrecogniz ed section and content) Specialty Diagnoses / Procedures Referred By Contac t Referred To Contact Diagnoses Shortness of breath AV block Heart block Elevated blood pressure reading Prolonged Q-T interval on ECG Chest pain, unspecified type Community acquired pneumonia, unspecified laterality Third degree heart block Referral ID Status Reason Start Date Expiration Date Visits Re quested Visits Authorized [id number] 1 1 Reason Onset Date Comments Wound Check 01/24/2023 S/P DC PPM inser tion on 01/13/23 Specialty Diagnoses / Procedures Referred By Haleigh rubio Referred To Contact Diagnoses Mediastinal lymphadenopathy Mediastinal lymphadenopathy [R59.0] Procedures DE BRNCHSC INCL FLUOR GDNCE DX W/CELL WASHG SPX DE BRNSCHSC TNDSC EBUS DX/TX INTERVENTION PERPH LES BRONCHOSCOPY FLEXIBLE DIAGNOSTIC BRONCHOSCOPY FLEXIBLE W/ EBUS DURING BRONCH DIAGNOSTICS/INTEVENTION FOR PERIPHERAL LESION ADD-ON PX Li Coppola MD [address] [facility] [address] [place] [phone] [facility] [address] [place] [phone] Referral ID Status Reason Start Date Expiration Date Visits Re quested Visits Authorized [id number] 1 1 Referral ID Status Reason Start Date Expiration Date Visits Re quested Visits Authorized [id number] 1 1 Reason Comments Labs Only Specialty Diagnoses / Procedures Referred By Haleigh rubio Referred To Contact Diagnoses NSCLC of right lung Procedures PFT STANDARD Meron Mckeon, PAC [address] [facility] [address] [place], [place] [phone] Referral ID Status Reason Start Date Expiration Date V isits Requested Visits Authorized [id number] New Request 04/22/2023 05/16/2024 1 1 Reason Comments Follow-up Pt reports coughing spells, SOB with moderate exertionPt reports low back pain that's newerPt denies problems swallowing Reason Comments Pacemaker/ICD event Specialty Diagnoses / Procedures Referred By Haleigh rubio Referred To Contact Diagnoses NSCLC of right lung NSCLC of right lung [C34.91] Procedures DE THORACOSCOPY W/LOBECTOMY [facility]ING[facility] IN[facility] FLUOR GDNCE DX W/CELL WASHG SPX LOBECTOMY LUNG ROBOTIC BRONCHOSCOPY FLEXIBLE DIAGNOSTIC Li Coppola MD [address] [place] [phone] [facility] [address] [place] [address] Referral ID Status Reason Start Date Expiration Date Visits Re quested Visits Authorized [id number] 1 1 Scheduled Active and Recently Administ [...] 20 mL injection (COMPLETED)(Linked Group 1) Infiltration, STEEPING PRESS TENDER TO PROCEDURE, 1 dose, Starting on Fri05/28/23 at 0828, Until Fri05/28/23 at 1050, For OR use only under direction of the attending physician., Intra-op/Intra-Proc 1050 (Given - Provider: Sania Alas RN) BUPivacaine-EPINEPHrine (MARCAINE;SENSORCAINE W/ EPI) 0.25% -[id number] injection (CANCELED) NEEDED, Starting on Fri05/28/23 at 0817, Until Fri05/28/23 at 1141, Intra-op/Intra-Proc 0817 (Given - Provider: Li Coppola MD) Clindamycin (CLEOCIN) 900 mg in dextrose 50 ml premix IVPB (COMPLETED) 900 mg, Intravenous, Administer over 30 Minutes, STEEPING PRESS TENDER TO PROCEDURE, 1 dose, Starting on Fri05/28/23 [...] volume) intrathecal injection (COMPLETED) 200 mcg, Intrathecal, STEEPING PRESS TENDER TO PROCEDURE, 1 dose, Starting on Fri05/28/23 [...] 20 mL injection (COMPLETED)Jump to med Infiltration, STEEPING PRESS TENDER TO PROCEDURE, 1 dose, Starting on Fri05/28/23 at 0828, Until Fri05/28/23 at 1050
For OR use only under direction of the attending physician.
Intra-op/Intra-Proc And BUPivacaine LIPOSOME (EXPAREL) 1.3 % 133 mg, BUPivacaine (PF) (MARCAINE) 0.25 % 10 mL in Total Volume 20 mL injection (COMPLETED)Jump to med Infiltration, STEEPING PRESS TENDER TO PROCEDURE, 1 dose, Starting on Fri05/28/23 [...] Care Teams (unrecognized sec tion and content) Manager Corporate Strategy Relationship Specialty Start Date End Date Jada Peters MD [address] [place] [address] [address] [place], [place] [phone] PCP - General 01/09/23 Manager Corporate Strategy Relationship Specialty Start Date End Date Jada Peters MD [address] [place] [address] [address] [place] [phone] PCP - General Family Medicine 03/26/23 Eloina Claros, RN Registered Nurse 03/26/23 Pj Ardon MB/CHB [address] [place] [address] Oncologist Medical Oncology 03/26/23 Manager Corporate Strategy Relationship Specialty Start Date End Date Jada Peters MD [address] [place] [phone] PCP - General Family Medicine 03/26/23 Eloina Claros, RN Registered Nurse 03/26/23 Pj Ardon MB/CHB [address] [place], [place] [address] Oncologist Medical Oncology 03/26/23 Manager Corporate Strategy Relationship Specialty Start Date End Date Jada Peters MD [address] [place] [phone] PCP - General Family Medicine 03/26/23 Eloina Claros, RN Registered Nurse 03/26/23 Pj Ardon MB/CHB [address] [place] [address] Oncologist Medical Oncology 03/26/23 Manager Corporate Strategy Relationship Specialty Start Date End Date Jada Peters MD [address] [place] [phone] PCP - General Family Medicine 03/26/23 Eloina Claros, RN Registered Nurse 03/26/23 Pj Ardon MB/CHB [address] [place], [place] [phone] Oncologist Medical Oncology 03/26/23 Manager Corporate Strategy Relationship Specialty Start Date End Date Jada Peters MD [address] [place] [phone] PCP - General Family Medicine 03/26/23 Eloina Claros, RN Registered Nurse 03/26/23 Pj Ardon MB/DB [address] [place] [address] Oncologist Medical Oncology 03/26/23 Manager Corporate Strategy Relationship Specialty Start Date End Date Jada Peters MD [address] [place] [phone] PCP - General Family Medicine 03/26/23 Eloina Claros, RN Registered Nurse 03/26/23 Pj Ardon MB/DB [address] [place] [address] Oncologist Medical Oncology 03/26/23 Manager Corporate Strategy Relationship Specialty Start Date End Date Jada Peters MD [address] [place] [phone] PCP - General Family Medicine 03/26/23 Eloina Claros RN Registered Nurse 03/26/23 Pj Ardon MB/DB [address] [place] [address] Oncologist Medical Oncology 03/26/23 Li Coppola MD [address] [place] [address] Surgeon Thoracic Surgery 05/29/23 Manager Corporate Strategy Relationship Specialty Start Date End Date Jada Peters MD [address] [place] [phone] PCP - General Family Medicine 03/26/23 Eloina Claros, RN Registered Nurse 03/26/23 Pj Ardon MB/DB [address] [place] [address] Oncologist Medical Oncology 03/26/23 Li Coppola MD [address] [place] [address] Surgeon Thoracic Surgery 05/29/23 FOR RECORDS PERTAINING [...] BE BASED ON THE PRIMARY CLINICAL RECORDS. [employer] provides no warranty or guarantee of the accuracy or completeness of information in this document.
[2023-09-18 16:04] LABS: ACT Activated Clotting Time 276 sec (74-137)
[2023-09-18 16:05] LABS: ACT Activated Clotting Time 250 sec (74-137)
[2023-09-18] MEDS: Clopidogrel Bisulfate 300 MG Tablet PO (18:44)
[2023-09-18] MEDS: BENZOCAINE/MENTHOL 1 LOZENGE MUCOUS MEM (20:20)
[2023-09-18] MEDS: Atorvastatin Calcium 40 MG Tablet PO (20:21)
[2023-09-18] MEDS: Acetaminophen 325 MG Tablet 650 MG PO (20:21)
[2023-09-18] MEDS: amLODIPine 10 MG Tablet PO (20:21)
[2023-09-19 00:05] VITALS: BP 135/54; PULSE 68; RESP 18; TEMP 36.2; O2SAT 95
[2023-09-19 02:00] VITALS: BP 127/64; PULSE 64; RESP 18; TEMP 36.8; O2SAT 94
[2023-09-19 05:50] LABS: Hematocrit 40.8 % (40-54); Hemoglobin 13.6 g/dL (13.0-16.5); Mean Corp Hgb Conc 33.3 g/dL (32-36); Mean Corpuscular Volume 89.9 fL (80-94); Mean Platelet Vol. 9.6 fl (6.2-12.0); Platelet Count 214 K/mm3 (150-450); RBC Distribution Width SD 42.5 fl (35.1-43.9); Red Blood Count 4.54 M/mm3 (4.6-6.2); White Blood Count 7.3 K/mm3 (4.4-11.0)
[2023-09-19 06:16] VITALS: BP 146/65; PULSE 67; RESP 18; TEMP 36.5; O2SAT 95
[2023-09-19 06:20] LABS: ALB/GLOB Ratio 1.2 RATIO (0.9-2.4); AST(SGOT) 15 U/L (15-37); Alanine Aminotransfer ALT/SGPT 18 U/L (16-61); Albumin, Serum 3.4 g/dL (3.2-5.0); Alkaline Phosphatase 58 U/L (45-117); Anion Gap 5 (5-15); BUN 9 mg/dL (7-18); BUN/Creat Ratio 9.4 RATIO (10-20); Calcium,Total 8.8 mg/dL (8.5-10.1); Chloride 109 mmol/L (98-107); Creatinine, Serum 0.96 mg/dL (0.70-1.30); EST Glomerular Filtration Rate 81 mL/min (>60); Est Glom Filt Rate - Afr Amer 98 mL/min (>60); Estimated Creatinine Clearance 72.57 ml/min; Globulin 2.8 g/dL (2.2-4.2); Glucose 95 mg/dL (74-106); Potassium 3.8 mmol/L (3.5-5.1); Protein, Total 6.2 g/dL (6.4-8.2); Sodium Level 138 mmol/L (136-145)
--- NOTE | 2023-09-19 06:57 | CRPHASE1_ITS ---
Patient Communication Patient Information Former Patient:: Phase I and Phase II PHII Cardiac Rehab Discussed with Patient:: Yes Guide to Cardiac Rehab Given to Patient:: Yes Cardiac Rehab Facility Choice List Given to Patient:: Yes Communication to Cardiac Rehab Choice Program [facility] CR PHII:: Communication Given to CR Refer Phase II Cardiac Rehab:: Yes Sessions:: 36 sessions - 3 days/wk, 12 weeks Cardiac Rehabilitation Info Program Information Cardiac Rehabilitation Program Information: Cardiac Rehab The cardiac rehab team at [facility] consists of highly skilled exercise physiologists, nurses, respiratory therapists and physicians working together with you. Our purpose is to help you have a full recovery and achieve the goals you set for yourself. Over the years many of our patients have returned to activities they assumed they would never do again! We can help restore your confidence and motivation to make lifestyle changes that can have a significant impact on your health and quality of life! We can help answer questions and concerns you may have about exercise, lifestyle, medications, diet, stress and anxiety which are common following a hospitalization. WE monitor ECG and vital signs during exercise and discuss your progress with you and report to your physician(s). Cardiac Rehab is proven to help reduce readmissions, improve functional capacity and lower recurrence of problems with your heart. Our Cardiac Rehab program is Certified by the [place] [employer]monary [employer] (AACVPR) and Accredited by the [place] [employer] through our [facility]. You can contact us at . We invite you to call us with your questions or to get started in our program. If you have other questions or concerns be sure to ask your physician/provider during your follow-up visit. WE look forward to seeing you!
--- NOTE | 2023-09-19 06:57 | CRPH1.INSTRU ---
General Education Discussed with Patient CAD and cardiac anatomy and function:: Patient communicates acknowledgment Explanation of diagnoses and procedures:: Patient communicates acknowledgment Sign/Symptoms of KS:: Patient communicates acknowledgment Antiplatelet therapy: Patient communicates acknowledgment Proper use of NTG-SL: Patient communicates acknowledgment Emergency procedures and activation of EMS: Patient communicates acknowledgment Compliance of all prescribed medications: Patient communicates acknowledgment Smoking Risk Factors Patient Nicotine/Smoking Risk Factors Are:: Second-hand smoke Recommendations Recommendations Include:: Second-hand smoke recommendation Response Code Nicotine/Smoking Response Code:: Patient communicates acknowledgment Dyslipidemia Recommendations Recommendations Include:: Lipid profile not available Response Code Dyslipidemia Response Code:: Patient communicates acknowledgment Overweight/Obesity Risk Factors Patient Overweight/Obesity Risk Factors Are:: Obesity - > or = 30 Recommendations Recommendations Include:: Weight loss of 5-10%, Reduced calorie diet and Exercise 5-7 times/week Response Code Overweight/Obesity:: Patient communicates acknowledgment Hypertension Recommendations Recommendations Include:: Maintain BP <130/85 Response Code Hypertension:: Patient communicates acknowledgment Heart Disease Risk Factors Patient Heart Disease Risk Factors Are:: Previous cardiac event Recommendations Recommendations Include:: Educated family members of their risk Response Code Heart Disease Response Code:: Patient communicates acknowledgment Diabetes Risk Factors Patient Diabetes Risk Factors Are:: No documented hx of diabetes Metabolic Syndrome Recommendations Recommendations Include:: Does not meet criteria Sedentary Recommendations Recommendations Include:: Benefits of regular exercise and Monitored Outpatient Cardiac Rehab Response Code Sedentary Response Code:: Patient communicates acknowledgment Stress Recommendations Recommendations Include:: Identification of stressors, and assessment of coping skills Response Code Stress Response Code:: Patient communicates acknowledgment
--- NOTE | 2023-09-19 07:31 | PN.CARD_ITS ---
Subjective Subjective Patient seen and evaluated and doing well. With no complaints this morning Objective Data Vital Signs: Vital Signs Temp Pulse Resp BP Pulse Ox O2 Del Method 97.7 F L 67 18 146/65 H 95 Room Air 09/19/23 06:16 09/19/23 06:16 09/19/23 06:16 09/19/23 06:16 09/19/23 06:16 09/19/23 06:16 Oxygen Delivery Method Room Air Weight: 205 lb Body Mass Index (BMI) 30.2 Intake & Output: Intake and Output for Last 24 Hours 09/17/23 09/18/23 09/19/23 23:59 23:59 23:59 Intake Total 1900 / 1900 Output Total 700 / 700 Balance 1200 / 1200 Lab / Micro Data 09/19/23 05:15 09/19/23 05:15 Labs: Laboratory Results - last 24 hr 09/18/23 08:54: Activated Clotting Time 276 H 09/18/23 09:20: Activated Clotting Time 250 H 09/19/23 05:15: WBC 7.3, RBC 4.54 L, Hgb 13.6, Hct 40.8, MCV 89.9, MCH 30.0, MCHC 33.3, RDW Std Deviation 42.5, RDW Coeff of Haseeb 13.0, Plt Count 214, MPV 9.6, Sodium 138, Potassium 3.8, Chloride 109 H, Carbon Dioxide 24.0, Anion Gap 5, BUN 9, Creatinine 0.96, Estim Creat Clear Calc 72.57, Est GFR (MDRD) Af Amer 98, Est GFR (MDRD) Non-Af 81, BUN/Creatinine Ratio 9.4 L, Glucose 95, Calcium 8. 8, Total Bilirubin 1.00, AST 15, ALT 18, Alkaline Phosphatase 58, Total Protein 6.2 L, Albumin 3.4, Globulin 2.8, Albumin/Globulin Ratio 1.2 Cardiology Labs/Tests 09/19/23 05:15: WBC 7.3, RBC 4.54 L, Hgb 13.6, Hct 40.8, MCV 89.9, MCH 30.0, MCHC 33.3, Plt Count 214, MPV 9.6, Sodium 138, Potassium 3.8, Chloride 109 H, Carbon Dioxide 24.0, Anion Gap 5, BUN 9, Creatinine 0.96, Est GFR (MDRD) Af Amer 98, Est GFR (MDRD) Non-Af 81, BUN/Creatinine Ratio 9.4 L, Glucose 95, Calcium 8.8, Total Bilirubin 1.00 Rhythm: EKG: ECHO: Stress Test: Cardiac Cath: PCI: CT Surgery: Holter monitor: EPS: PPM: CXR: Chest CT Scan: Physical Exam Const alert, oriented x3 and no apparent distress General Appearance: cooperative HEENT hearing grossly normal bilaterally Head and Scalp: atraumatic Eyes EOMs intact bilaterally Neck General: normal visual inspection Chest inspection of chest normal and palpation of chest normal Resp normal respiratory effort Auscultation: clear to auscultation bilaterally Cardio regular rate, regular rhythm, S1 normal heart sound and S2 normal heart sound Jugular Venous Distention: JVD GI normal to inspection, nondistended, normoactive bowel sounds Extremity normal capillary refill and no pedal edema Peripheral Pulses: Yes pulses 2+ throughout and femoral pulses present Skin no rashes or lesions noted Neuro oriented x3 and CN's II-XII intact bilaterally Psych Appearance: grossly normal and appropriate Assessment & Plan Assessment/Plan (1) S/P coronary artery stent placement: PLAN: Patient is status post angioplasty and stenting of the left circumflex artery. Patient did well overnight postoperatively. At this time I will not recommend we make any changes. Will be discharged for outpatient follow-up. (2) Presence of permanent cardiac pacemaker: PLAN: Patient is status post permanent pacemaker implantation. This continues to be functioning well and will be followed up as an outpatient. (3) Essential hypertension: PLAN: Blood pressure appears to be under good control I would not recommend any changes.
--- NOTE | 2023-09-19 07:40 | DCINST_ITS ---
Discharge Instructions Diet Discharge Diet: No restrictions (You may continue your normal diet.) Activity Discharge Activity: Return to Normal Activity Lifting Restrictions: 10 pounds and also avoid any pushing or pulling for 3 days after your test. Additional Activity Instructions:: You must have someone drive you home. Do not drive until instructed by your doctor. You must have someone stay with you all night after your test. Rest in bed or on the couch until the next morning. Limit the number of times you go up and down stairs the day of your test. Apply pressure to the puncture site if you sneeze or cough. Dressing / Incision Call your doctor if your incision/area has: Increased Pain/ Swelling, Increased Redness, Foul Smelling Discharge and Swelling at the incision site Call your doctor if you observe: Fever of 101 or Higher Additional Dressing/Incision Instructions:: Keep the dressing (bandage) on until the next morning. You may then shower, but do not take a tub bath for 5 days after your test. It is normal to have some tenderness and discomfort at the puncture site. Sometimes bruising also occurs. However, if pain, numbness, or coldness occurs below the puncture site (in your leg, toes, arms or fingers) call your doctor at once. You may have a small, marble sized knot at the puncture site. This is normal. Do not rub it. It will go away in 4-6 weeks. Bleeding can occur from the area where the puncture was done. Blood may spurt or drip from the site. If blood spurts, apply pressure right away to stop bleeding and call 911. Although rare, bleeding into the tissue (hematoma) can also occur. If this happens, a large, firm area goose egg under the skin will appear. If any of these occur, lie down as flat as you can and have someone apply firm pressure to the cath site with a gauze pad or a clean washcloth for 10-15 minutes. Call 911 or go to the Emergency Department. Follow Up Care Test Results: Test results from this visit will be discussed in further detail at your follow- up appointment, if applicable. Discharge Plan Admission Admit Date/Time: 09/18/23 09:22 Attending Provider: Braden Hammonds Primary Care Provider: Jada Vázquez Consulting Providers: Faizan Fraga NP Discharge Orders/Prescriptions Prescriptions: New clopidogrel 75 mg Tablet 75 mg PO DAILY Qty: 60 2RF Continued nitroglycerin 0.4 mg tablet, sublingual 0.4 mg Sublingual Q5M PRN (Reason: Chest Pain) Qty: 25 3RF losartan 50 MG tablet 50 mg PO DAILY Patient Comments: blood pressure/heart omega-3 fatty acids 300 MG capsule 300 mg PO DAILY Patient Comments: cholesterol pantoprazole 40 MG tablet 40 mg PO DAILY vitamin E (dl, acetate) 400 UNITS capsule 400 units PO DAILY aspirin 81 MG tablet 81 mg PO DAILY@0800 0RF amlodipine 10 mg tablet 10 mg PO DAILY Qty: 90 3RF atorvastatin 40 mg tablet 40 mg PO DAILY Qty: 90 3RF Referrals / Follow Up: Jada Vázquez MD [Primary Care Provider] - Disposition Disposition (needs filled in before D/C Order can be placed): Home, Self Care
[2023-09-19 08:12] VITALS: O2SAT 95
[2023-09-19 08:27] VITALS: BP 147/88; PULSE 76; RESP 18; TEMP 36.6; O2SAT 96
[2023-09-19] MEDS: Pantoprazole Sodium 40 MG Tablet PO (08:29)
[2023-09-19] MEDS: Clopidogrel Bisulfate 75 MG Tablet PO (08:29)
[2023-09-19] MEDS: Losartan Potassium 50 MG Tablet PO (08:29)
[2023-09-19] MEDS: Aspirin E.C. 81 MG Tablet PO (08:29)
--- NOTE | 2023-09-19 10:00 | EKG12_ITS ---
Test Reason : AM EKG Blood Pressure : / mmHG Vent. Rate : 070 BPM Atrial Rate : 070 BPM P-R Int : 202 ms QRS Dur : 150 ms QT Int : 440 ms P-R-T Axes : 020 056 062 degrees QTc Int : 475 ms Atrial-sensed ventricular-paced rhythm Abnormal ECG When compared with ECG of 18-SEP-2023 10:21, MANUAL COMPARISON REQUIRED, DATA IS UNCONFIRMED Confirmed by CLAUDIA CORNELIUS, BRADEN ([id number]), editorial project manager ISIDRO ATKINS ([id number]) on 09/19/2023 10:54:05 AM Referred By: Braden Hammonds Confirmed By:BRADEN HAMMONDS MD
== END 2023-09-19 07:40 | disposition home or self-care (01) ==
LOC: PCU 09:28
PROVIDERS: Internal Medicine Cardiovascular Disease; Nurse Practitioner Family; Admitting Provider Internal Medicine Cardiovascular Disease; PCP Student in an Organized Health Care Education/Training Program; Referring Provider Internal Medicine Cardiovascular Disease; Visit Provider Internal Medicine Cardiovascular Disease
DX: I25.10 Atherosclerotic heart disease of native coronary artery without angina pectoris (principal); R94.39 Abnormal result of other cardiovascular function study; Z95.5 Presence of coronary angioplasty implant and graft; E78.00 Pure hypercholesterolemia, unspecified; Z95.0 Presence of cardiac pacemaker; Z87.891 Personal history of nicotine dependence; I10 Essential (primary) hypertension; G47.33 Obstructive sleep apnea (adult) (pediatric); K21.9 Gastro-esophageal reflux disease without esophagitis; I25.2 Old myocardial infarction
CPT/HCPCS: 36415; 71046; 80048; 80053; 83735; 84439; 84443; 85025; 85027; 85347; 92928; 93005; 93458; 96360; 96361; 99152; 99153; 99221; C1874; J7030; J7040; Q9967; C1725; C1769; C1887; C1894; C9600; G0378

== ENCOUNTER → 2023-11-26 | Outpatient (CLI) | payer MEDICARE, SELFPAY ==
[2023-11-26 12:52] VITALS: PULSE 85; PULSE 87; PULSE 88; PULSE 90; PULSE 92; PULSE 97; O2SAT 93; O2SAT 94; O2SAT 95; O2SAT 96; O2SAT 97
--- NOTE | 2023-11-28 13:30 | WT_ITS ---
PSN 6 Minute Walk Test 6 Minute Walk Test 6 Minute Walk Test: 6 Minute Walk Test PSN:6-Minute Walk Test Start: 11/26/23 12:52 Freq: Status: Active Protocol: [id number].6MINW Document 11/26/23 12:52 SEGUNDO (Rec: 11/26/23 12:54 [id number] [id number]) 6 Minute Walk Test Date Performed 11/26/23 Time Performed 12:45 Height 5 ft 9 in Weight: 193 lb Weight in Pounds 193.[address]: Raquel Eldridge [employer] Assistive device used: None Pre-test Oxygen Delivery Method Room Air Pulse Ox 96 Pulse Rate (60-100) 87 Dyspnea Deysi Scale (0-10) 0 Exertion Deysi Scale (6-20) 6 1st minute Oxygen Delivery Method Room Air Pulse Ox 95 Pulse Rate (60-100) 88 2nd minute Oxygen Delivery Method Room Air Pulse Ox 94 Pulse Rate (60-100) 90 3rd minute Oxygen Delivery Method Room Air Pulse Ox 93 Pulse Rate (60-100) 92 4th minute Oxygen Delivery Method Room Air Pulse Ox 93 Pulse Rate (60-100) 97 5th minute Oxygen Delivery Method Room Air Pulse Ox 94 Pulse Rate (60-100) 97 6th minute Oxygen Delivery Method Room Air Pulse Ox 93 Pulse Rate (60-100) 97 Dyspnea Deysi Scale (0-10) 3 Exertion Deysi Scale (6-20) 12 Post-test Oxygen Delivery Method Room Air Pulse Ox 97 Pulse Rate (60-100) 85 Full Laps Walked 20 Partial Lap, Number of Tiles Walked 41 Total Distance Walked (ft) 1221 Interpretation Interpretation: The patient ambulated 1221 feet over the course of 6 minutes beginning on room air without assistive devices. Pretesting oxygen saturation was noted to be 96% on room air. With ambulation, the will oxygen saturation was 93%. There was no significant exertional oxygen desaturation. Recommendations Recommendations: There is no indication for the use of supplemental oxygen at this time.
== END | disposition home or self-care (01) ==
LOC: PSN 12:39
PROVIDERS: PCP Student in an Organized Health Care Education/Training Program; Referring Provider Nurse Practitioner Acute Care; Visit Provider Nurse Practitioner Acute Care
DX: J44.9 Chronic obstructive pulmonary disease, unspecified (principal)
CPT/HCPCS: 94618

== ENCOUNTER → 2023-12-04 | Outpatient (CLI) | payer MEDICARE, SELFPAY | END | disposition home or self-care (01) | LOC: PSN 12:43 | PROVIDERS: PCP Student in an Organized Health Care Education/Training Program; Referring Provider Nurse Practitioner Acute Care; Visit Provider Nurse Practitioner Acute Care | DX: J44.9 Chronic obstructive pulmonary disease, unspecified (principal) | CPT/HCPCS: 94060; 94726; 94729 ==

== ENCOUNTER → 2024-01-30 | Outpatient (CLI) | payer MEDICARE, SELFPAY ==
--- NOTE | 2024-01-30 07:38 | AAVD_ITS ---
Reason For Study: AAA Aorta Measurements Aorta Doppler Measurements Proximal aorta measures2.05 x 2.08cm. in cross- Peak systolic flow velocities within the proximal sectional axis. aorta measure 70.5 cm/sec. Proximal aorta measures2.03cm. in longitudinal Peak systolic flow velocities within the mid aorta axis. measure 47.2 cm/sec. Mid aorta measures2.00 x 2.04cm. in cross- Peak systolic flow velocities within the distal sectional axis. aorta measure 62.5 cm/sec. Mid aorta measures2.04cm. in longitudinal axis. Distal aorta measures3.61 x 3.67cm. in cross- sectional axis. Distal aorta measures3.48cm. in longitudinal axis. Left Iliac Artery Left iliac artery measures 1.21 x 1.26 cm. in the cross-sectional axis. Left iliac artery measures 1.22 cm. in the longitudinal axis. Peak systolic velocity in the left iliac artery measures 116.1 cm/sec. Right Iliac Artery Right iliac artery measures 1.16 x 1.16 cm. in the cross-sectional axis. Right iliac artery measures 1.16 cm. in the longitudinal axis. Peak systolic velocity in the right iliac artery measures 164.6 cm/sec. Procedure Aorta IVC Iliac vasculature or bypass grafts 47527. The exam was diagnostic. Exam performed in department. VL/Abd Aortic/IVC Duplex scan Interpretation Summary Maximal diameter distal abdominal aorta at 3.61 x 3.67 cm diameter. Normal aort ic flow velocity identified. Left common iliac artery normal 1.21 x 1.26 cm in diameter Right common iliac artery normal at 1.16 x 1.16 cm diameter No change from the previous examination of January 20, 2023 Ordering Physician: Frank Issa Referring Physician: Jada Vázquez Performed By: Shamir Costello, RVT
--- NOTE | 2024-01-30 07:38 | CDU_ITS ---
Reason For Study: Bilateral Carotid Stenosis Rt. Velocities/BP Lt. Velocities/BP Prox CCA 78.7/11.7 cm/sec. Prox CCA 83.0/14.2 cm/sec. Mid CCA 77.6/8.4 cm/sec. Mid CCA 72.0/16.7 cm/sec. Dist CCA 61.1/14.9 cm/sec. Dist CCA 72.0/16.7 cm/sec. Prox ICA 93.8/18.9 cm/sec. Prox ICA 141.5/35.2 cm/sec. Mid ICA 65.8/13.8 cm/sec. Mid ICA 102.7/27.8 cm/sec. Dist ICA 70.5/16.6 cm/sec. Dist ICA 113.3/29.9 cm/sec. Rt. ICA/CCA = 1.2. Lt. ICA/CCA = 2.0. Prox ECA 132.6/17.5 cm/sec. Prox ECA 119.9/16.7 cm/sec. Rt. Vert. 22.5/5.3 cm/sec. Lt. Vert. 53.5/13.0 cm/sec. Right Extracranial There is heterogeneous, irregular atherosclerotic plaque noted in the right common carotid artery. There is heterogeneous, irregular atherosclerotic plaque noted in the right internal carotid artery. There is heterogeneous, irregular atherosclerotic plaque noted in the right external carotid artery. Antegrade flow is noted in the right vertebral artery. Left Extracranial There is homogeneous, smooth atherosclerotic plaque noted in the left common carotid artery. There is heterogeneous, irregular atherosclerotic plaque noted in the left internal carotid artery. There is heterogeneous, irregular atherosclerotic plaque noted in the left external carotid artery. Antegrade flow is noted in the left vertebral artery. Procedure Carotid Duplex [id number]. This is a Carotid Duplex examination using B-mode, color flow and specral Doppler. The exam was diagnostic. Exam performed in department. VL/Carotid Duplex Ultrasound Interpretation Summary Irregular calcific plaque at the proximal right internal carotid artery with le ss than 50% stenosis Less than 50% stenosis right external carotid artery Irregular heterogenous calcific plaque at the proximal left internal carotid ar estrella with less than 50% stenosis based upon new criteria Less than 50% stenosis left external carotid artery Patent antegrade vertebral arteries bilaterally No progression of disease since the previous examination of January 20, 2023 Ordering Physician: Frank Issa Referring Physician: Jada Vázquez Performed By: Shamir Costello RVT
== END | disposition home or self-care (01) ==
PROVIDERS: PCP Student in an Organized Health Care Education/Training Program; Referring Provider Surgery; Visit Provider Surgery
DX: I71.43 Infrarenal abdominal aortic aneurysm, without rupture (principal); I65.22 Occlusion and stenosis of left carotid artery
CPT/HCPCS: 93880; 93978

== ENCOUNTER 2024-07-23 20:17 | Emergency (ER) | payer MEDICARE, SELFPAY ==
[2024-07-23 20:17] VITALS: BP 138/71; PULSE 82; RESP 16; TEMP 35.9; O2SAT 98; BMI 29.5
--- NOTE | 2024-07-23 22:10 | CT_ITS ---
INDICATION: right flank pain EXAMINATION: CT Abdomen And Pelvis W/O Contrast Injection TECHNIQUE: Helically acquired images were obtained of the abdomen and pelvis without the use of IV contrast. A radiation dose optimization technique was used for this scan. Oral contrast: None. COMPARISON: None FINDINGS: Evaluation of the solid organs and vascular structures is limited without intravenous contrast. Visualized lung bases: Cluster tree-in-bud opacities in the right lung base. Liver: Unremarkable Gallbladder: Unremarkable Spleen: Unremarkable Pancreas: Mild fat stranding surrounding the head of the pancreas. Adrenal Glands: Unremarkable Kidneys: Few punctate 1 to 2 mm nonobstructing stones seen in both kidneys. Vasculature: Severe aortoiliac atherosclerotic disease. 3.9 cm infrarenal abdominal aortic aneurysm. GI Tract: Unremarkable Lymphadenopathy: None Peritoneum: No ascites. Bladder: Unremarkable Reproductive organs: Unremarkable Bones/Soft tissues: There are diffuse degenerative changes of the spine. CT/Abdomen/Pelvis without Cont IMPRESSION: Findings suspicious for acute focal pancreatitis. No focal fluid collection. Correlate with lipase levels. Few punctate 1 to 2 mm nonobstructing stones seen in both kidneys. 3.9 cm infrarenal abdominal aortic aneurysm. Clustered tree-in-bud opacities in the right lung base may be infectious versus inflammatory in etiology. Electronically Signed: Sly Ballard MD at 23:04 EST ,
[2024-07-23 22:17] VITALS: BP 142/80; PULSE 73; RESP 16; O2SAT 95
[2024-07-23] MEDS: 0.9% Normal Saline (1000mL) 1,000 ML 999 ML IV (22:18)
[2024-07-23] MEDS: Ketorolac 15 MG/ML Vial IV (22:18)
[2024-07-23 22:25] LABS: Absolute Lymphocyte Count 1.65 X10^3/uL (0.83-4.51); Absolute Neutrophil Count 7.7 X10^3/uL (2.0-7.7); Basophil# 0.13 X10^3/uL; Basophil% 1.2 % (0-1); Eosinophil# 0.41 X10^3/uL; Eosinophils% 3.7 % (0-5); Hematocrit 43.1 % (40-54); Hemoglobin 14.6 g/dL (13.0-16.5); Lymphocyte # 1.65 X10^3/ul (0.83-4.51); Mean Corp Hgb Conc 33.9 g/dL (32-36); Mean Corpuscular Hgb 30.9 pg (27.0-32.0); Mean Corpuscular Volume 91.3 fL (80-94); Mean Platelet Vol. 9.7 fl (6.2-12.0); Monocyte# 1.11 X10^3/uL; Monocyte% 10.1 % (0-10); NRBC Flagged by Analyzer 0 % (0-5); Neutrophil # 7.65 X10^3/uL (2.7-7.7); Neutrophil % 69.6 % (47-70); Platelet Count 218 K/mm3 (150-450); RBC Distribution Width CV 13.2 % (11.6-14.6); RBC Distribution Width SD 44.8 fl (35.1-43.9); Red Blood Count 4.72 M/mm3 (4.6-6.2)
[2024-07-23 22:39] LABS: Anion Gap 7 (5-15); BUN 16 mg/dL (7-18); BUN/Creat Ratio 10.6 RATIO (10-20); Calcium,Total 9.4 mg/dL (8.5-10.1); Chloride 105 mmol/L (98-107); Creatinine, Serum 1.51 mg/dL (0.70-1.30); EST Glomerular Filtration Rate 48 mL/min (>60); Est Glom Filt Rate - Afr Amer 58 mL/min (>60); Estimated Creatinine Clearance 44.86 ml/min; Glucose 107 mg/dL (74-106); Sodium Level 139 mmol/L (136-145)
[2024-07-23 23:12] LABS: Bacteria 0 SEEN /hpf (None Seen); Mucous, Urine 0 SEEN /hpf (<or=2+); Red Blood Cells-Urine 0 SEEN /hpf (0-5); Squamous Epithelial Cells - UA 0 SEEN /hpf (0-5)
[2024-07-23 23:14] LABS: Color, Urine Yellow (Yellow); Glucose, Dipstick Normal (Normal); Ketone-Dipstick Negative (Negative); Leukocyte Esterase-Dipstick 25 /ul (Negative); Nitrite-Dipstick Negative (Negative); Occult Blood-Urine Negative /ul (Negative); Protein-Dipstick 30 mg/dl (Negative); Specific Gravity, Urine 1.015 (1.002-1.030); Urine Bilirubin Dipstick Negative (Negative); Urine Clarity Clear (Clear); Urine Urobilinogen Normal (Normal)
[2024-07-23 23:24] LABS: White Blood Cells 0-5 SEEN /hpf (0-5)
[2024-07-23 23:45] LABS: AST(SGOT) 15 U/L (15-37); Alanine Aminotransfer ALT/SGPT 19 U/L (16-61); Albumin, Serum 3.5 g/dL (3.2-5.0); Alkaline Phosphatase 79 U/L (45-117); Bilirubin, Direct 0.25 mg/dL (0.00-0.30); Globulin 3.6 g/dL (2.2-4.2); Lipase 100 U/L (13-75); Protein, Total 7.1 g/dL (6.4-8.2)
--- NOTE | 2024-07-23 23:58 | CT_ITS ---
EXAM: CT ABDOMEN AND PELVIS WITH INTRAVENOUS CONTRAST CLINICAL INDICATION: abd pain TECHNIQUE: Helically acquired images were obtained of the abdomen and pelvis with intravenous contrast. CTDIvol = ( 31.93 ) mGy, DLP = ( 1177.60 ) mGycm This CT exam was performed using one or more of the following dose reduction techniques: automated exposure control, adjustment of the mA and/or kV according to patient size, and/or use of iterative reconstruction technique. CONTRAST: IV 100mL Isovue-370 COMPARISON: No relevant prior studies available. FINDINGS: LOWER THORAX: Lung bases are clear of any acute disease. ABDOMEN: LIVER: Unremarkable. Homogeneous. No focal mass. GALLBLADDER AND BILE DUCTS: Unremarkable. No calcified gallstones. No gallbladder distention or wall edema. No intra- or extrahepatic biliary ductal dilation. PANCREAS: Unremarkable. No focal cystic or solid mass. SPLEEN: Unremarkable. Normal size without focal cystic or solid mass. ADRENALS: Unremarkable. No nodules. KIDNEYS AND URETERS: Nonobstructing small renal calyceal calculi bilaterally. Normal renal size and position. STOMACH AND BOWEL: Unremarkable. No focal inflammatory change. No inflammatory or obstructive changes of bowel. PELVIS: APPENDIX: No evidence of acute appendicitis. BLADDER: Unremarkable. REPRODUCTIVE: Unremarkable as visualized. No mass. ABDOMEN and PELVIS: INTRAPERITONEAL SPACE: Unremarkable. No free air or free fluid. BONES/JOINTS: Degenerative changes of the pelvis and spine. No unusual lytic destructive lesions of bone. SOFT TISSUES: Very small fat-containing left inguinal hernia. Overlying soft tissues tissues are unremarkable. VASCULATURE: 4.2 cm distal infrarenal saccular abdominal aortic aneurysm does not involve the bifurcation. No adjacent stranding. Multivessel calcific coronary atherosclerosis. . LYMPH NODES: Unremarkable. No enlarged lymph nodes. CT/Abdomen/Pelvis W IV Cont ONLY IMPRESSION: 1. No acute or inflammatory disease or bowel obstruction. 2. 4.2 cm distal infrarenal saccular abdominal aortic aneurysm with no adjacent stranding. 3. Nonobstructing small renal calyceal calculi bilaterally. 4. Fluid 5. Ancillary findings as above. Electronically Signed: Asher Montemayor MD at 1:32 EST ,
[2024-07-24] VITALS: BP 128/70; PULSE 73; RESP 18; O2SAT 92
[2024-07-24 02:00] VITALS: BP 121/74; PULSE 81; RESP 16; TEMP 36.6; O2SAT 99
--- NOTE | 2024-07-24 02:15 | EX.ED.DYSGE1 ---
HPI History of Present Illness Chief Complaint: Abd Pain Informant: patient and spouse/S.O. Narrative Narrative: Patient is a 79-year-old male with past medical history of hypertension hyperlipidemia and squamous cell carcinoma. He states for the past 2 to 3 days he has been having right sided abdominal pain that wraps towards his back. He states there is no associated nausea vomiting or diarrhea. He denies any trauma or excessive activity. He denies any dysuria or hematuria. He states his symptoms have not resolved with time and secondary to his he presents for evaluation. [facility] Medical History (Reviewed 06/03/24 @ 12:14 by Raquel Eldridge FISH HATCHERY ASSISTANT, FISH HATCHERY ASSISTANT-C) Squamous cell carcinoma Wears hearing aid in both ears Hearing loss, left Hearing loss, right Alcohol abuse GERD (gastroesophageal reflux disease) Former smoker CPAP (continuous positive airway pressure) dependence Sleep apnea Myocardial infarct Hypertension Pacemaker Second degree AV block, Mobitz type I Presence of permanent cardiac pacemaker PVD (peripheral vascular disease) Abdominal aortic aneurysm without rupture Essential hypertension Pure hypercholesterolemia VANDANA (obstructive sleep apnea) CVA (cerebral vascular accident) Diastolic dysfunction Hyperlipidemia Acquired left ventricular hypertrophy Right bundle-branch block Old myocardial infarction Atherosclerotic heart disease of [place] coronary artery without angina pectoris Intractable nausea and vomiting Headache History of TIA Hypertension Coronary artery disease Home Medications ?Medication ?Instructions ?Recorded ?Last Taken ?Type omega-3 fatty acids 300 mg capsule 300 mg PO DAILY supplement 03/02/14 03/04/23 10:00 History pantoprazole 40 mg tablet,delayed 40 mg PO DAILY reflux 07/08/18 09/18/23 History release vitamin E (dl, acetate) 180 mg 400 units PO DAILY vitamin 07/08/18 03/04/23 08:00 History (400 unit) capsule aspirin 81 mg tablet,delayed 81 mg PO DAILY@0800 heart [facility] 07/09/18 09/18/23 Rx release nitroglycerin 0.4 mg sublingual 0.4 mg sublingual Q5M PRN Chest 12/03/21 Unknown Rx tablet Pain #25 tabs losartan 50 mg tablet 25 mg PO DAILY blood pressure 11/07/23 Unknown History pembrolizumab 25 mg/mL intravenous mg .Route 11/07/23 Unknown History solution (Keytruda) fluticasone propionate 250 1 inh inhalation BID #60 ea 12/23/23 Unknown Rx mcg/actuation blister powder for inhalation clopidogrel 75 mg tablet 75 mg PO DAILY #60 tabs 09/16/24 Unknown Rx amlodipine 10 mg tablet 10 mg PO DAILY blood pressure #90 06/28/24 Unknown Rx tabs atorvastatin 40 mg tablet 40 mg PO DAILY cholesterol #90 tabs 06/28/24 Unknown Rx tramadol 50 mg tablet 50 mg PO Q6H PRN pain 3 days #12 07/24/24 Unknown Rx tabs Allergy/AdvReac Type Severity Reaction Status Date / Time Penicillins Allergy Anaphylaxis Verified 07/23/24 20:19 Family History Brother Diabetes Brother Hypertension Brother Cancer esophageal Brother Hip fracture Sister Diabetes Kidney disease kidney failure Sister Diabetes CAD (coronary artery disease) Hx of CABG Obesity Hyperlipidemia Father CAD (coronary artery disease) Myocardial infarction CHF (congestive heart failure) Daughter Migraine Mother Cancer Lung cancer Myocardial infarction Surgical History (Reviewed 06/03/24 @ 12:14 by Raquel Eldridge FISH HATCHERY ASSISTANT, FISH HATCHERY ASSISTANT-C) S/P lobectomy of lung History of coronary artery stent placement (~09/18/23) Social History Smoking Status: Former smoker pack-years: 23 Tobacco: How many years used: 23 Electronic Cigarette Use: not used how long ago did patient quit smokin second hand exposure: No alcohol intake: former year quit: 1992 substance use type: does not use caffeine: No what type of physical activity do you participate in: bicycling and other details: tredmill frequency: 3-4 times per week duration: 30-45 minutes/day seatbelt use: always do you feel safe at home: Yes ROS ROS ED Constitutional Constitutional ED: Denies chills or fever(s) Eyes Eyes: Denies change in vision ENT ENT ED: Denies sore throat Cardiovascular Cardiovascular: Denies chest pain Respiratory/Chest Respiratory/Chest: Denies cough or dyspnea Gastrointestinal Gastrointestinal: Reports abdominal pain; Denies diarrhea, nausea or vomiting Genitourinary Genitourinary ED: Denies dysuria or hematuria Musculoskeletal Musculoskeletal: Reports back pain Integumentary Denies rash Neurologic Neurologic: Denies headache(s) Hematologic/Lymphatic Hematologic/Lymphatic: Denies easy bleeding or easy bruising EXAM Physical Exam Const Vital Signs: 07/23/24 20:17 07/23/24 22:17 07/24/24 00:00 Temperature 96.7 F L Temperature Source Temporal Pulse Rate 82 73 73 Respiratory Rate 16 16 18 Blood Pressure 138/71 H 142/80 H 128/70 H Blood Pressure Mean 93 100 89 Pulse Ox 98 95 92 Oxygen Delivery Method Room Air Room Air Room Air Positive well nourished and well developed General Appearance ED: well developed; Negative for pallor HEENT Reports moist mucous membranes HEENT Narrative: Normocephalic atraumatic No tongue or lip swelling no oral lesions no airway edema or compromise No secondary findings in the posterior pharynx to suggest infection Eyes PERRL and EOMs intact bilaterally General Eye ED: Negative for scleral icterus Neck supple Resp normal respiratory effort and clear to auscultation bilaterally Cardio regular rate and regular rhythm Rate: other Other Details: Heart is regular rate and rhythm without murmurs rubs or gallop Radial and carotid pulses are equal and symmetric GI non-distended and no masses GI Narrative: Abdomen is soft and nondistended with normal active bowel sounds Patient has pain on palpation along the right lateral abdomen diffusely. No voluntary guarding or rigidity or pulsatile mass Negative Arceo sign Auscultation: normoactive bowel sounds Palpation: soft Back/Spine Back/Spine Narrative: Positive right CVA pain noted Extremity normal to inspection Neuro oriented x3, CN's II-XII intact bilaterally and no sensory deficits noted Sensorium / Orientation: alert Motor Exam: strength 5/5 throughout Psych mental status grossly normal Skin no rashes or lesions noted General Skin Exam: Negative for jaundice or pallor MDM MDM MDM Narrative Medical decision making narrative: Patient arrived to the ER with stable vitals reported 3 days of right sided abdominal pain. The pain is diffusely along the right lateral abdomen and he does have right CVA pain concerning for kidney stone. There is concern for UTI or pyelonephritis or biliary symptoms such as biliary colic or acute cholecystitis or pancreatitis. As most likely reason is kidney stone I did elect to start with basic labs and a noncontrast CT. noncontrast CT showed no obvious stone but did have concerns for potential pancreatitis. Therefore CT with IV contrast was obtained. This showed a aneurysm without dissection but no concerning changes to the pancreas. On reevaluation the patient reports his pain resolved with provided medication. His labs revealed no signs of acute kidney injury or electrolyte abnormality. At this time with 2 CT scans without obvious cause of the patient's pain normal laboratory values and the fact that symptoms have resolved do not feel there is need for further workup in the ER. He does have a kidney stone shown on the initial CT on the right side and therefore I do feel his pain was most likely from a recently passed or non-radiopaque stone. He agrees to follow-up with his family doctor and/or urology for further evaluation but as vitals are stable and symptoms resolved he is otherwise safe for discharge History & Record Review Discussion w/independent historian: Patient and Significant other Lab Data Attestation: I reviewed the patient's lab results. Labs: Laboratory Results - last 24 hr 07/23/24 07/23/24 22:19 23:06 WBC 11.0 RBC 4.72 Hgb 14.6 Hct 43.1 MCV 91.3 MCH 30.9 MCHC 33.9 RDW Std Deviation 44.8 H RDW Coeff of Hasebe 13.2 Plt Count 218 MPV 9.7 Immature Gran % (Auto) 0.400 Neut % (Auto) 69.6 Lymph % (Auto) 15.0 L [place] % (Auto) 10.1 H Eos % (Auto) 3.7 Baso % (Auto) 1.2 H Absolute Neuts (auto) 7.7 Absolute Lymphs (auto) 1.65 Nucleated RBC % 0 Sodium 139 Potassium 4.0 Chloride 105 Carbon Dioxide 27.0 Anion Gap 7 BUN 16 Creatinine 1.51 H Estim Creat Clear Calc 44.86 Est GFR (MDRD) Af Amer 58 L Est GFR (MDRD) Non-Af 48 L BUN/Creatinine Ratio 10.6 Glucose 107 H Calcium 9.4 Total Bilirubin 1.10 H Direct Bilirubin 0.25 AST 15 ALT 19 Alkaline Phosphatase 79 Total Protein 7.1 Albumin 3.5 Globulin 3.6 Lipase 100 H Urine Color Yellow Urine Clarity Clear Urine pH 6.0 Ur Specific [place] 1.015 Urine Protein 30 H Urine Glucose (UA) Normal Urine Ketones Negative Urine Occult Blood Negative Urine Nitrite Negative Urine Bilirubin Negative Urine Urobilinogen Normal Ur Leukocyte Esterase 25 H Urine RBC 0 SEEN Urine WBC 0-5 SEEN Ur Squamous Epith Cells 0 SEEN Urine Bacteria 0 SEEN Urine Mucus 0 SEEN Radiography Diagnostic Testing: Clinical Impression(s) from Imaging Studies Abdomen/Pelvis CT 07/23/24 22:10 IMPRESSION: Findings suspicious for acute focal pancreatitis. No focal fluid collection. Correlate with lipase levels. Few punctate 1 to 2 mm nonobstructing stones seen in both kidneys. 3.9 cm infrarenal abdominal aortic aneurysm. Clustered tree-in-bud opacities in the right lung base may be infectious versus inflammatory in etiology. Electronically Signed: Sly Ballard MD at 23:04 EST , Abdomen/Pelvis CT 07/23/24 23:58 IMPRESSION: 1. No acute or inflammatory disease or bowel obstruction. 2. 4.2 cm distal infrarenal saccular abdominal aortic aneurysm with no adjacent stranding. 3. Nonobstructing small renal calyceal calculi bilaterally. 4. Fluid 5. Ancillary findings as above. Electronically Signed: Asher Montemayor MD at 1:32 EST , Discharge Plan Triage Chief Complaint: Abd Pain ED Provider: Asher Leyva Dx/Rx/DC Orders Clinical Impression: Nonspecific abdominal pain, Essential hypertension, Pure hypercholesterolemia, Squamous cell lung cancer Instructions: Abdominal Pain Prescriptions: New tramadol 50 mg tablet 50 mg PO Q6H PRN (Reason: pain) 3 Days Qty: 12 0RF No Action nitroglycerin 0.4 mg tablet, sublingual 0.4 mg Sublingual Q5M PRN (Reason: Chest Pain) Qty: 25 3RF clopidogrel 75 mg tablet 75 mg PO DAILY Qty: 60 3RF Keytruda 25 mg/mL solution .Route Rx Instructions: Q 3 week fluticasone propionate 250 mcg/actuation blister with device 1 inh inhalation BID Qty: 60 11RF omega-3 fatty acids 300 MG capsule 300 mg PO DAILY Patient Comments: cholesterol losartan 50 mg tablet 25 mg PO DAILY Patient Comments: blood pressure/heart pantoprazole 40 MG tablet 40 mg PO DAILY vitamin E (dl, acetate) 400 UNITS capsule 400 units PO DAILY aspirin 81 MG tablet 81 mg PO DAILY@0800 0RF atorvastatin 40 mg tablet 40 mg PO DAILY Qty: 90 3RF amlodipine 10 mg tablet 10 mg PO DAILY Qty: 90 3RF Primary Care Provider: Jada Vázquez Referrals: Jarrod Araujo MD [Med Staff - Active Staff] - Jada Vázquez MD [Primary Care Provider] - Activity Restrictions/Additional Instructions: Your CT scan showed stones within your kidney but not outside which is when the pain occurs. However based on your physical exam I do feel that you recently passed a kidney stone or have 1 that is not radiopaque and will not show up on CT scan. Keep yourself well-hydrated use the tramadol for pain control and return to the ER should you have any further concerns Print Language: Luxembourgish Disposition Disposition: Home, Self Care Discharge Date/Time: 07/24/24 02:27
== END 2024-07-24 02:27 | disposition home or self-care (01) ==
PROVIDERS: Emergency Provider Emergency Medicine; PCP Student in an Organized Health Care Education/Training Program; Visit Provider Emergency Medicine
DX: R10.9 Unspecified abdominal pain (principal); C34.90 Malignant neoplasm of unspecified part of unspecified bronchus or lung; I25.10 Atherosclerotic heart disease of native coronary artery without angina pectoris; E78.00 Pure hypercholesterolemia, unspecified; G47.33 Obstructive sleep apnea (adult) (pediatric); I25.2 Old myocardial infarction; I10 Essential (primary) hypertension; Z87.891 Personal history of nicotine dependence; Z79.899 Other long term (current) drug therapy; Z79.82 Long term (current) use of aspirin; Z95.0 Presence of cardiac pacemaker; Z86.73 Personal history of transient ischemic attack (TIA), and cerebral infarction without residual deficits; Z95.5 Presence of coronary angioplasty implant and graft
CPT/HCPCS: 74176; 74177; 80048; 80076; 81001; 83690; 85025; 96361; 96374; 96376; 99283; Q9967

== ENCOUNTER → 2024-09-21 | Outpatient (CLI) | payer MEDICARE, SELFPAY ==
[2024-09-21 13:31] LABS: Hematocrit 46.3 % (40-54); Hemoglobin 15.7 g/dL (13.0-16.5); Mean Corp Hgb Conc 33.9 g/dL (32-36); Mean Corpuscular Hgb 31.7 pg (27.0-32.0); Mean Corpuscular Volume 93.3 fL (80-94); Mean Platelet Vol. 9.6 fl (6.2-12.0); Platelet Count 210 K/mm3 (150-450); RBC Distribution Width CV 13.3 % (11.6-14.6); RBC Distribution Width SD 45.5 fl (35.1-43.9); Red Blood Count 4.96 M/mm3 (4.6-6.2); White Blood Count 7.5 K/mm3 (4.4-11.0)
[2024-09-21 20:36] LABS: Anion Gap 11 (5-15); BUN 12 mg/dL (4-19); BUN/Creat Ratio 10.8 RATIO (10-20); Calcium 9.3 mg/dL (7.6-11.0); Carbon Dioxide 24.5 mmol/L (22.0-29.0); Chloride 104 mmol/L (96-108); Creatinine, Serum 1.1 mg/dL (0.8-1.3); EST Glomerular Filtration Rate 67 (>60); Glucose 88 mg/dL (70-99); Magnesium 2.3 mg/dL (1.5-2.2); Potassium 4.2 mmol/L (3.3-5.1); Sodium Level 140 mmol/L (133-145)
== END | disposition home or self-care (01) ==
PROVIDERS: PCP Student in an Organized Health Care Education/Training Program; Referring Provider Nurse Practitioner Family; Visit Provider Nurse Practitioner Family
DX: I44.1 Atrioventricular block, second degree (principal); I47.29 Other ventricular tachycardia; R06.09 Other forms of dyspnea
CPT/HCPCS: 36415; 80048; 83735; 84443; 85027

== ENCOUNTER 2025-01-05 18:38 | Emergency (ER) | payer MEDICARE, SELFPAY ==
[2025-01-05 18:38] VITALS: BP 136/67; PULSE 74; RESP 17; TEMP 36.6; O2SAT 93; BMI 29.3
--- NOTE | 2025-01-05 19:34 | EDS_ITS ---
HPI History of Present Illness Chief Complaint: Dizziness Informant: patient Onset/Context/Timing Onset: Days (3) Context: Sudden Onset Timing: Continuous Quality: Spinning Location: Generalized Worsened by: Movement Relieved by: Meclizine Narrative Narrative: Patient presents with dizziness that has been constant for the past 3 days. Patient states that it feels like everything is spinning. Patient states he has been taking meclizine which helps for couple hours and then his dizziness returns. Patient admits to some nausea but denies any vomiting. Patient admits to some tinnitus but denies any hearing changes. Patient denies any fevers or chills. Patient denies any headaches. Patient states it feels like everything is spinning. Patient states it is worse with movement. Patient denies any paresthesias or weakness. Patient denies any visual changes. Prior similar symptoms: Yes (With peripheral vertigo) [facility] Medical History Squamous cell carcinoma Wears hearing aid in both ears Hearing loss, left Hearing loss, right Alcohol abuse GERD (gastroesophageal reflux disease) Former smoker CPAP (continuous positive airway pressure) dependence Sleep apnea Myocardial infarct Hypertension Pacemaker Second degree AV block, Mobitz type I Presence of permanent cardiac pacemaker PVD (peripheral vascular disease) Abdominal aortic aneurysm without rupture Essential hypertension Pure hypercholesterolemia VANDANA (obstructive sleep apnea) CVA (cerebral vascular accident) Diastolic dysfunction Hyperlipidemia Acquired left ventricular hypertrophy Right bundle-branch block Old myocardial infarction Atherosclerotic heart disease of [place] coronary artery without angina pectoris Intractable nausea and vomiting Headache History of TIA Hypertension Coronary artery disease Home Medications ?Medication ?Instructions ?Recorded ?Last Taken ?Type omega-3 fatty acids 300 mg capsule 300 mg PO DAILY sup plement 03/02/14 03/04/23 10:00 History pantoprazole 40 mg tablet,delayed 40 mg PO DAILY reflu x 07/08/18 09/18/23 History release vitamin E (dl, acetate) 180 mg 400 units PO DAILY laci min 07/08/18 03/04/23 08:00 History (400 unit) capsule aspirin 81 mg tablet,delayed 81 mg PO DAILY@0800 heart [facility] 07/09/18 09/18/23 Rx release nitroglycerin 0.4 mg sublingual 0.4 mg sublingual Q5M PRN Chest 12/03/21 Unknown Rx tablet Pain #25 tabs losartan 50 mg tablet 25 mg PO DAILY blood pressur e 11/07/23 Unknown History pembrolizumab 25 mg/mL intravenous mg .Route 11/07/23 Unknown History solution (Keytruda) amlodipine 10 mg tablet 10 mg PO DAILY blood pressur e #90 06/28/24 Unknown Rx tabs atorvastatin 40 mg tablet 40 mg PO DAILY cholesterol # 90 tabs 06/28/24 Unknown Rx clopidogrel 75 mg tablet 75 mg PO DAILY #90 tabs 03/21 Unknown Rx diazepam 2 mg tablet 2 mg PO TID PRN PRN Vertigo #10 01/05/25 Unknown Rx TABLETS Allergy/AdvReac Type Severity Reaction Status Date / Time Penicillins Allergy Anaphylaxis Verified 12/08/24 10:53 Family History Brother Diabetes Brother Hypertension Brother Cancer esophageal Brother Hip fracture Sister Diabetes Kidney disease kidney failure Sister Diabetes CAD (coronary artery disease) Hx of CABG Obesity Hyperlipidemia Father CAD (coronary artery disease) Myocardial infarction CHF (congestive heart failure) Daughter Migraine Mother Cancer Lung cancer Myocardial infarction Surgical History S/P lobectomy of lung History of coronary artery stent placement (~09/18/23) Social History Smoking Status: Former smoker pack-years: 23 Tobacco: How many years used: 23 Electronic Cigarette Use: not used how long ago did patient quit smokin second hand exposure: No alcohol intake: former year quit: 1992 substance use type: does not use caffeine: No what type of physical activity do you participate in: bicycling and other details: tredmill frequency: 3-4 times per week duration: 30-45 minutes/day seatbelt use: always do you feel safe at home: Yes ROS ROS ED Constitutional Constitutional ED: Denies chills or fever(s) Eyes Eyes: Denies blurry vision or change in vision ENT ENT ED: Reports tinnitus; Denies hearing loss, rhinorrhea or sore throat Cardiovascular Cardiovascular: Denies chest pain or palpitations Respiratory/Chest Respiratory/Chest: Denies cough or dyspnea Gastrointestinal Gastrointestinal: Reports nausea; Denies vomiting Genitourinary Genitourinary ED: Denies dysuria or hematuria Musculoskeletal Musculoskeletal: Denies back pain or neck pain Integumentary Denies abscess or rash Neurologic Neurologic: Denies headache(s) or weakness Allergic/Immunologic Allergic/Immunologic ED: Denies mouth swelling or urticaria EXAM Physical Exam Const Vital Signs: 01/05/25 18:38 01/05/25 20:38 01/05/25 22:00 Temperature 97.9 F Temperature Source Temporal Pulse Rate 74 63 61 Respiratory Rate 17 15 22 H Blood Pressure 136/67 H 130/76 H 149/81 H Blood Pressure Mean 90 94 103 Pulse Ox 93 98 97 Oxygen Delivery Method Room Air Room Air Room Air 01/05/25 23:56 Temperature 97.8 F Temperature Source Pulse Rate 68 Respiratory Rate 18 Blood Pressure 158/75 H Blood Pressure Mean 102 Pulse Ox 96 Oxygen Delivery Method Positive well nourished and well developed General Appearance ED: well developed and NAD HEENT Reports moist mucous membranes Eyes PERRL and EOMs intact bilaterally Eyes Narrative: There is mild nystagmus with right lateral gaze. Neck supple and no JVD Resp normal respiratory effort and clear to auscultation bilaterally Cardio regular rate and regular rhythm GI non-tender and non-distended Palpation: soft Extremity normal to inspection General Extremety ED: Negative for edema or tenderness General Extremity: Negative for edema Neuro oriented x3, CN's II-XII intact bilaterally and no sensory deficits noted Neuro Narrative: Rowe-Hallpike maneuver reproduced his dizziness when his head was turned to the right. Sensorium / Orientation: alert Motor Exam: strength 5/5 throughout Psych mental status grossly normal MDM MDM MDM Narrative Medical decision making narrative: Differential diagnosis includes stroke, peripheral vertigo, electrolyte abnormality, dehydration, cardiac dysrhythmia, and hypovolemia. CT scan of the brain will be obtained to assess for stroke and intracranial bleeding. EKG will be obtained to assess for cardiac dysrhythmia and cardiac ischemia. CBC will be obtained to assess for leukocytosis and anemia. Basic metabolic profile will be obtained to assess for electrolyte abnormality and renal function. High- sensitivity troponin will be obtained to assess for cardiac ischemia. Orthostatic vital signs will be obtained to assess for hypovolemia and dehydrati on. History & Record Review Discussion w/independent historian: Patient and Family Additional record(s) reviewed:: Prior labs Lab Data Attestation: I reviewed the patient's lab results. Lab results narrative: CBC was reviewed and was within normal limits. Basic metabolic profile was reviewed. Glucose was mildly elevated at 145. The remainder is within normal limits. High-sensitivity troponin was reviewed and was normal at 14. Urinalysis was reviewed. There is no evidence of urinary tract infection or hematuria. Labs: Laboratory Results - last 24 hr 01/05/25 01/05/25 19:40 21:50 WBC 6.8 RBC 4.91 Hgb 15.4 Hct 44.7 MCV 91.0 MCH 31.4 MCHC 34.5 RDW Std Deviation 44.2 H RDW Coeff of Haseeb 13.2 Plt Count 224 MPV 9.7 Immature Gran % (Auto) 0.300 Neut % (Auto) 58.3 Lymph % (Auto) 23.7 [place] % (Auto) 9.9 Eos % (Auto) 5.9 H Baso % (Auto) 1.9 H Absolute Neuts (auto) 4.0 Absolute Lymphs (auto) 1.61 Nucleated RBC % 0 Sodium 136 Potassium 4.1 Chloride 102 Carbon Dioxide 23.2 Anion Gap 11 BUN 11 Creatinine 1.04 Estim Creat Clear Calc 64.99 Est GFR (MDRD) Non-Af 73 BUN/Creatinine Ratio 10.3 Glucose 145 H Calcium 9.2 Troponin T High Sens 14 Urine Color Yellow Urine Clarity Clear Urine pH 7.0 Ur Specific [place] 1.010 Urine Protein 15 H Urine Glucose (UA) Normal Urine Ketones Negative Urine Occult Blood Negative Urine Nitrite Negative Urine Bilirubin Negative Urine Urobilinogen Normal Ur Leukocyte Esterase Negative Urine RBC 0 SEEN Urine WBC 0 SEEN Ur Squamous Epith Cells 0 SEEN Urine Bacteria RARE Urine Mucus 1+ Radiography Diagnostic Testing: Clinical Impression(s) from Imaging Studies Brain CT 01/05/25 19:54 IMPRESSION: No acute abnormality Reading Location: [facility] CT scan of the brain was obtained. There is no acute intracranial abnormality. This was interpreted by the radiologist and was also independently reviewed by myself. EKG Initial EKG: Attestation: I personally reviewed and interpreted this EKG as follows: Interpretation: Paced (60) and LBBB Comments: EKG was obtained. On my independent interpretation, there is an AV sequential pacemaker rhythm with a rate of 60. PA interval was normal at 184 ms. QRS interval was prolonged at 148 ms. QTc interval was normal at 452 ms. [place] was normal. There is a left bundle branch block pattern noted. There are no acute ST or T wave changes. Prior EKG tracings: available for review Prior: Unchanged (09/19/2023) Treatment and Re-Evaluation :: Patient was given a dose of Valium here. Patient felt better after this. Patient was able to ambulate without difficulty here in the emergency department. Patient had no further dizziness. Patient was given a prescription for Valium. Patient was instructed to follow-up with his primary care physician in 5 to 7 days. Patient was instructed to return if worse in any way. Patient understood and was agreeable with the plan. All questions were answered. Discharge Plan Triage Chief Complaint: Dizziness ED Provider: Saúl Macias Dx/Rx/DC Orders Clinical Impression: Peripheral vertigo, Essential hypertension Instructions: ED Vertigo, Unspecified Prescriptions: New diazepam [diazepam] 2 mg tablet 2 mg PO TID PRN PRN (Reason: Vertigo) Qty: 10 0RF No Action nitroglycerin 0.4 mg tablet, sublingual 0.4 mg Sublingual Q5M PRN (Reason: Chest Pain) Qty: 25 3RF Keytruda 25 mg/mL solution .Route Rx Instructions: Q 3 week omega-3 fatty acids 300 MG capsule 300 mg PO DAILY Patient Comments: cholesterol losartan 50 mg tablet 25 mg PO DAILY Patient Comments: blood pressure/heart pantoprazole 40 MG tablet 40 mg PO DAILY vitamin E (dl, acetate) 400 UNITS capsule 400 units PO DAILY aspirin 81 MG tablet 81 mg PO DAILY@0800 0RF atorvastatin 40 mg tablet 40 mg PO DAILY Qty: 90 3RF amlodipine 10 mg tablet 10 mg PO DAILY Qty: 90 3RF clopidogrel 75 mg tablet 75 mg PO DAILY Qty: 90 3RF Primary Care Provider: Jada Vázquez Referrals: Jada Vázquez MD [Primary Care Provider] - 5-7 Days Print Language: Montenegrin Disposition Disposition: Home, Self Care Discharge Date/Time: 01/05/25 23:57
--- NOTE | 2025-01-05 19:54 | CT_ITS ---
PROCEDURE: BRAIN/HEAD WITHOUT CONTRAST 01/05/2025 REASON FOR EXAM: DIZZINESS TECHNIQUE: Head CT without intravenous contrast. Coronal and Sagittal reconstruction series were provided. One or more dose reduction techniques were used (e.g., Automated exposure control, adjustment of the mA and/or kV according to patient size, use of iterative reconstruction technique. COMPARISON: 04/06/2022 FINDINGS: No intracranial mass, hemorrhage or edema. No hydrocephalus. The ventricles are normal in caliber. CT/Brain/Head without Contrast IMPRESSION: No acute abnormality Reading [facility]
--- NOTE | 2025-01-05 19:55 | EKG12_ITS ---
Test Reason : DIZZY Blood Pressure : */* mmHG Vent. Rate : 60 BPM Atrial Rate : 60 BPM P-R Int : 184 ms QRS Dur : 148 ms QT Int : 452 ms P-R-T Axes : 16 49 60 degrees QTcB Int : 452 ms AV dual-paced rhythm Abnormal ECG Confirmed by Joe Sanchez ([id number]), photo editor ISIDRO ATKINS ([id number]) on 01/06/2025 10:18:37 AM Referred By: Confirmed By: Joe Sanchez
[2025-01-05 20:06] LABS: Absolute Lymphocyte Count 1.61 X10^3/uL (0.83-4.51); Basophil# 0.13 X10^3/uL; Basophil% 1.9 % (0-1); Eosinophils% 5.9 % (0-5); Hematocrit 44.7 % (40-54); Hemoglobin 15.4 g/dL (13.0-16.5); Lymphocyte # 1.61 X10^3/ul (0.83-4.51); Lymphocyte % 23.7 % (19-41); Mean Corp Hgb Conc 34.5 g/dL (32-36); Mean Corpuscular Hgb 31.4 pg (27.0-32.0); Mean Platelet Vol. 9.7 fl (6.2-12.0); Monocyte# 0.67 X10^3/uL; Monocyte% 9.9 % (0-10); NRBC Flagged by Analyzer 0 % (0-5); Neutrophil # 3.97 X10^3/uL (2.7-7.7); Neutrophil % 58.3 % (47-70); Platelet Count 224 K/mm3 (150-450); RBC Distribution Width CV 13.2 % (11.6-14.6); RBC Distribution Width SD 44.2 fl (35.1-43.9); Red Blood Count 4.91 M/mm3 (4.6-6.2); White Blood Count 6.8 K/mm3 (4.4-11.0)
[2025-01-05] MEDS: diazePAM 5 MG Tablet 2.5 MG PO (20:08)
[2025-01-05 20:28] LABS: Anion Gap 11 (5-15); BUN 11 mg/dL (4-19); BUN/Creat Ratio 10.3 RATIO (10-20); Calcium,Total 9.2 mg/dL (7.6-11.0); Carbon Dioxide 23.2 mmol/L (21.0-32.0); Chloride 102 mmol/L (98-108); Creatinine, Serum 1.04 mg/dL (0.70-1.20); EST Glomerular Filtration Rate 73 (>60); Estimated Creatinine Clearance 64.99 ml/min (50-250); Glucose 145 mg/dL (70-99); Potassium 4.1 mmol/L (3.3-5.1); Sodium Level 136 mmol/L (133-145)
[2025-01-05 20:38] VITALS: BP 130/76; PULSE 63; RESP 15; O2SAT 98
[2025-01-05 20:45] LABS: Troponin T High Sensitivity 14 ng/L (<=22)
[2025-01-05 21:58] LABS: Red Blood Cells-Urine 0 SEEN /hpf (0-5); Squamous Epithelial Cells - UA 0 SEEN /hpf (0-5); White Blood Cells 0 SEEN /hpf (0-5)
[2025-01-05 22:00] VITALS: BP 149/81; PULSE 61; RESP 22; O2SAT 97
[2025-01-05 22:04] LABS: Color, Urine Yellow (Yellow); Glucose, Dipstick Normal (Normal); Ketone-Dipstick Negative (Negative); Leukocyte Esterase-Dipstick Negative /ul (Negative); Nitrite-Dipstick Negative (Negative); Occult Blood-Urine Negative /ul (Negative); Protein-Dipstick 15 mg/dl (Negative); Urine Bilirubin Dipstick Negative (Negative); Urine Clarity Clear (Clear); Urine Urobilinogen Normal (Normal)
[2025-01-05 23:19] LABS: Bacteria RARE /hpf (None Seen); Mucous, Urine 1+ /hpf (<or=2+)
[2025-01-05 23:56] VITALS: BP 158/75; PULSE 68; RESP 18; TEMP 36.6; O2SAT 96
== END 2025-01-05 23:57 | disposition home or self-care (01) ==
PROVIDERS: Emergency Provider Emergency Medicine; PCP Student in an Organized Health Care Education/Training Program; Visit Provider Emergency Medicine
DX: H81.399 Other peripheral vertigo, unspecified ear (principal); I11.0 Hypertensive heart disease with heart failure; I50.32 Chronic diastolic (congestive) heart failure; E78.00 Pure hypercholesterolemia, unspecified; I25.10 Atherosclerotic heart disease of native coronary artery without angina pectoris; I25.2 Old myocardial infarction; Z95.5 Presence of coronary angioplasty implant and graft; Z79.02 Long term (current) use of antithrombotics/antiplatelets; Z79.82 Long term (current) use of aspirin; Z79.899 Other long term (current) drug therapy; Z86.73 Personal history of transient ischemic attack (TIA), and cerebral infarction without residual deficits; Z87.891 Personal history of nicotine dependence
CPT/HCPCS: 70450; 80048; 81001; 84484; 85025; 93005; 99283; A4216

== ENCOUNTER → 2025-02-09 | Outpatient (CLI) | payer MEDICARE, SELFPAY ==
--- NOTE | 2025-02-09 08:50 | CDU_ITS ---
Reason For Study Reason For Study: Yearly Rt. Velocities/BP Lt. Velocities/BP Prox CCA 71.1/9.7 cm/sec. Prox CCA 93.7/15.1 cm/sec. Mid CCA 61.7/9.7 cm/sec. Mid CCA 80.2/12.6 cm/sec. Dist CCA 53.2/10.7 cm/sec. Dist CCA 58.1/10.2 cm/sec. Prox ICA 108.3/11.5 cm/sec. Prox ICA 154.0/24.3 cm/sec. Mid ICA 64.2/12.6 cm/sec. Mid ICA 108.3/15.2 cm/sec. Dist ICA 45.6/8.1 cm/sec. Dist ICA 93.7/17.0 cm/sec. Rt. ICA/CCA = 1.8. Lt. ICA/CCA = 1.9. Prox ECA 143.0/6.0 cm/sec. Prox ECA 154.0/11.5 cm/sec. Rt. Vert. 36.2/6.9 cm/sec. Lt. Vert. 54.4/10.2 cm/sec. Right Extracranial There is heterogeneous, irregular atherosclerotic plaque noted in the right common carotid artery. There is heterogeneous, irregular atherosclerotic plaque noted in the right internal carotid artery. There is heterogeneous, irregular atherosclerotic plaque noted in the right external carotid artery. Antegrade flow is noted in the right vertebral artery. Left Extracranial There is intimal thickening but no significant atherosclerotic plaque noted in the left common carotid artery. There is heterogeneous, irregular atherosclerotic plaque noted in the left internal carotid artery. There is intimal thickening but no significant atherosclerotic plaque noted in the left external carotid artery. Antegrade flow is noted in the left vertebral artery. Procedure Carotid Duplex 54317. This is a Carotid Duplex examination using B-mode, color flow and specral Doppler. Exam performed in department. VL/Carotid Duplex Ultrasound Interpretation Summary Mild (<50%) stenosis right extracranial internal carotid. Moderate (50-69%) stenosis left extracranial internal carotid. Patent and antegrade vertebrals bilaterally. Ordering Physician: Saúl Morales Referring Physician: Saúl Morales MD Performed By: Elizabeth Lerma, T
--- NOTE | 2025-02-09 08:50 | AAAS_ITS ---
Reason For Study Reason For Study: AAA Aorta Measurements Aorta Doppler Measurements Proximal aorta measures1.91x1.79cm. in cross-sectional axis.Peak systolic flow velocities within the proximal aorta Proximal aorta measures1.96cm. in longitudinal axis. measure 81.4 cm/sec. Mid aorta measures2.68x2.35cm. in cross-sectional axis. Peak systolic flow velocities within the mid aorta measure Mid aorta measures2.29cm. in longitudinal axis. 79.6 cm/sec. Distal aorta measures3.77x3.85cm. in cross-sectional axis. Peak systolic flow velocities within the distal aorta Distal aorta measures3.83cm. in longitudinal axis. measure 61.4 cm/sec. Left Iliac Artery Left iliac artery measures 1.19x1.16 cm. in the cross-sectional axis. Left iliac artery measures 1.18 cm. in the longitudinal axis. Peak systolic velocity in the left iliac artery measures 108.6 cm/sec. Right Iliac Artery Right iliac artery measures 1.061.25 cm. in the cross-sectional axis. Right iliac artery measures 1.00 cm. in the longitudinal axis. Peak systolic velocity in the right iliac artery measures 150.1 cm/sec. Procedure Aorta IVC Iliac vasculature or bypass grafts [id number]. Exam performed in department. 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
--- NOTE | 2025-02-09 08:50 | AAAS_ITS ---
Reason For Study Reason For Study: AAA Aorta Measurements Aorta Doppler Measurements Proximal aorta measures1.91x1.79cm. in cross-sectional axis.Peak systolic flow velocities within the proximal aorta Proximal aorta measures1.96cm. in longitudinal axis. measure 81.4 cm/sec. Mid aorta measures2.68x2.35cm. in cross-sectional axis. Peak systolic flow velocities within the mid aorta measure Mid aorta measures2.29cm. in longitudinal axis. 79.6 cm/sec. Distal aorta measures3.77x3.85cm. in cross-sectional axis. Peak systolic flow velocities within the distal aorta Distal aorta measures3.83cm. in longitudinal axis. measure 61.4 cm/sec. Left Iliac Artery Left iliac artery measures 1.19x1.16 cm. in the cross-sectional axis. Left iliac artery measures 1.18 cm. in the longitudinal axis. Peak systolic velocity in the left iliac artery measures 108.6 cm/sec. Right Iliac Artery Right iliac artery measures 1.061.25 cm. in the cross-sectional axis. Right iliac artery measures 1.00 cm. in the longitudinal axis. Peak systolic velocity in the right iliac artery measures 150.1 cm/sec. Procedure Aorta IVC Iliac vasculature or bypass grafts [id number]. Exam performed in department. 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
--- NOTE | 2025-02-09 08:50 | CDU_ITS ---
Reason For Study Reason For Study: Yearly Rt. Velocities/BP Lt. Velocities/BP Prox CCA 71.1/9.7 cm/sec. Prox CCA 93.7/15.1 cm/sec. Mid CCA 61.7/9.7 cm/sec. Mid CCA 80.2/12.6 cm/sec. Dist CCA 53.2/10.7 cm/sec. Dist CCA 58.1/10.2 cm/sec. Prox ICA 108.3/11.5 cm/sec. Prox ICA 154.0/24.3 cm/sec. Mid ICA 64.2/12.6 cm/sec. Mid ICA 108.3/15.2 cm/sec. Dist ICA 45.6/8.1 cm/sec. Dist ICA 93.7/17.0 cm/sec. Rt. ICA/CCA = 1.8. Lt. ICA/CCA = 1.9. Prox ECA 143.0/6.0 cm/sec. Prox ECA 154.0/11.5 cm/sec. Rt. Vert. 36.2/6.9 cm/sec. Lt. Vert. 54.4/10.2 cm/sec. Right Extracranial There is heterogeneous, irregular atherosclerotic plaque noted in the right common carotid artery. There is heterogeneous, irregular atherosclerotic plaque noted in the right internal carotid artery. There is heterogeneous, irregular atherosclerotic plaque noted in the right external carotid artery. Antegrade flow is noted in the right vertebral artery. Left Extracranial There is intimal thickening but no significant atherosclerotic plaque noted in the left common carotid artery. There is heterogeneous, irregular atherosclerotic plaque noted in the left internal carotid artery. There is intimal thickening but no significant atherosclerotic plaque noted in the left external carotid artery. Antegrade flow is noted in the left vertebral artery. Procedure Carotid Duplex [id number]. This is a Carotid Duplex examination using B-mode, color flow and specral Doppler. Exam performed in department. VL/Carotid Duplex Ultrasound Interpretation Summary Mild (<50%) stenosis right extracranial internal carotid. Moderate (50-69%) stenosis left extracranial internal carotid. Patent and antegrade vertebrals bilaterally. Ordering Physician: Saúl Morales Referring Physician: Saúl Morales MD Performed By: Elizabeth Lerma, T
== END | disposition home or self-care (01) ==
LOC: CVS 08:49
PROVIDERS: PCP Student in an Organized Health Care Education/Training Program; Referring Provider Surgery Trauma Surgery; Visit Provider Surgery Trauma Surgery
DX: I65.22 Occlusion and stenosis of left carotid artery (principal); I71.43 Infrarenal abdominal aortic aneurysm, without rupture
CPT/HCPCS: 76706; 93880

== ENCOUNTER → 2025-04-18 | Outpatient (CLI) | payer MEDICARE, SELFPAY ==
--- OUTSIDE RECORDS SUMMARY | 2025-04-18 07:06 | XMS RPT_ITS | CCD ---
Author Organization [facility] CliniSywy Care Team Providers Care Software Build Engineer Name Role Phone LATASHA ALEXANDER Unavailable Unavailable CATHERINE ABAHY Unavailable Unavailable NO REFERRING Unavailable Unavailable KASSIE NAGY Unavailable Unavailable JUSTIN ANDERSON Unavailable Unavailable Dr. Makayla Peters Primary Care Provider [phone] Dr. Makayla Peters Referring Provider Dr. Demetri Desai Attending Provider Dr. Frank Issa Attending Provider Dr. Demetri Desai Referring Provider [phone] Makayla Peters Primary Care Provider Dr. Frank Issa Referring Provider [phone] Dr. Makayla Peters Referring Provider Dr. Makayla Peters Primary Care Provider [phone] Dr. Makayla Peters Referring Provider [phone] Vance DIGGS, YURI Mcghee Attending Provider Makayla Peters MD Primary Care Provider Dr. Makayla Peters Primary Care Provider Dr. Frank Issa Attending Provider ASHER GAITAN Attending MAKAYLA Brumfield Primary Care Unavailable CALI HERNANDEZ Admitting Unavai CALI Marie Referring Unavai lable MAKAYLA PETERS Primary Care Unavailable MAKAYLA PETERS Primary Care Unavailable SYSTEM, PROVIDER NOT IN Referring Unavaila STEFFEN Devi Consulting Unavaila ANTON Horton Admitting Unavailable PACO RICHARD Attending Unavailable ASHER GAITAN Attending UnavailMAKAYLA Craft Primary Care Unavailable Dr. Frank Issa Referring Provider Dr. Makayla Peters Referring Provider Vance CAPTAIN WAITER, CAPTAIN WAITER-C Litzy Attending Provider Dr. Kashif Frost Attending Provider Nadege Lopez Attending Provider Unavailable Jazmyn CAPTAIN WAITER, CAPTAIN WAITER-C Raquel Attending Provider Dr. Kashif Frost Referring Provider Dr. Kashif Frost Other Provider Dr. Demetris Pimentel Attending Provider Dr. Pj Ardon Attending Provider Harlan JIMENEZ, Eloina Unavailable Unavailable Reva FRANCO/Pj ACE Unavailable Makayla Peters MD Primary Care Provider Jake Valenzuela MD Unavailable Dr. Makayla Peters Primary Care Provider Dr. Braden Hammonds Attending Provider Dr. Braden Hammonds Referring Provider Roof CAPTAIN WAITER, CAPTAIN WAITER-C Faizan H Referring Provider Roof CAPTAIN WAITER, CAPTAIN WAITER-C Faizan H Other Provider Roof CAPTAIN WAITER, CAPTAIN WAITER-C Faizan H Attending Provider Dr. Braden Hammonds Other Provider Dr. Braden Hammonds Admit Provider Pj Ardon MD Unavailable Dr. Makayla Peters Primary Care Provider Roof CAPTAIN WAITER, CAPTAIN WAITER-C Faizan H Referring Provider Roof CAPTAIN WAITER, CAPTAIN WAITER-C Faizan H Other Provider Dr. Braden Hammonds Attending Provider Roof CAPTAIN WAITER, CAPTAIN WAITER-C Faizan Guevara Attending Provider Dr. Braden Hammonds Referring Provider Dr. Braden Hammonds Other Provider Dr. Braden Hammonds Admit Provider Dr. Makayla Peters Referring Provider Vance CAPTAIN WAITER, CAPTAIN WAITER-C Litzy Attending Provider Jazmyn CAPTAIN WAITER, CAPTAIN WAITER-C Raquel Attending Provider [phone] Jazmyn CAPTAIN WAITER, CAPTAIN WAITER-C Raquel Referring Provider Jazmyn CAPTAIN WAITER, CAPTAIN WAITER-C Raquel Other Provider Dr. Demetris Pimentel Attending Provider Gurpreet CORNELIUS, Dr. Elias Primary Care Provider Dr. Asher Leyva DO Attending Provider Dr. Asher Leyva DO Emergency Provider Dr. Braden Hammonds MD Attending Provider Dr. Braden Hammonds MD Referring Provider Roof CAPTAIN WAITER-C, Faizan Guevara Attending Provider Roof CAPTAIN WAITER-C, Faizan H Referring Provider Dr. Makayla Peters MD Primary Care Provider Dr. Makayla Peters MD Referring Provider [phone] Nadege Lopez Attending Provider Unavailable Dr. Radha Sanchez MD Attending Provider Jazmyn DIGGS-Raquel Agarwal Attending Provider Makayla Peters MD Primary Care Provider [phone] Dr. Makayla Peters MD Primary Care Provider Dr. Braden Hammonds MD Attending Provider Nasra MD, Dr. Buttonwillow Referring Provider Gurpreet CORNELIUS, Dr. Elias Referring Provider Dr. Saúl Macias DO Emergency Provider [phone] Gurpreet CORNELIUS, Dr. Elias Primary Care Provider Gilberto ASHER, Dr. Hays Attending Provider Andrew CORNELIUS, Dr. Hays Attending Provider Andrew CORNELIUS, Dr. Hays Referring Provider KALISETTI, MAKAYLA Referring Unavailable SYEDKATHRYN FIORE Attending Unavailable KALISETTI, MAKAYLA Primary Care Unavailable KALISETTI, MAKAYLA Referring Unavailable SYEDKATHRYN FIORE Attending Unavailable KALISETTI, MAKAYLA Primary Care Unavailable KALISETTI, MAKAYLA Referring Unavailable KALISETTI, MAKAYLA Primary Care Unavailable KALISETTI, MAKAYLA Attending Unavailable KALISETTI, MAKAYLA Referring Unavailable KALISETTI, MAKAYLA Primary Care Unavailable KATHRYN TOBIAS Attending Unavailable KALISETTI, MAAKYLA Referring Unavailable ISAAC HODGE Attending Unavailable KALISETTI, MAKAYLA Primary Care Unavailable SYEDKATHRYN FIORE Attending Unavailable KALISETTI, MAKAYLA Primary Care Unavailable KALISETTI, MAKAYLA Referring Unavailable SYEDKATHRYN FIORE Attending Unavailable KALISETTI, MAKAYLA Referring Unavailable KALISETTI, MAKAYLA Primary Care Unavailable KALISETTI, MAKAYLA Referring Unavailable KALISETTI, MAKAYLA Primary Care Unavailable KALISETTI, MAKAYLA Attending Unavailable KALISETTI, MAKAYLA Referring Unavailable KALISETTI, MAKAYLA Primary Care Unavailable SYEDKATHRYN FIORE Attending Unavailable KALISETTI, MAKAYLA Referring Unavailable KALISETTI, MAKAYLA Primary Care Unavailable ISAAC HODGE Attending Unavailable KALISETTI, MAKAYLA Primary Care Unavailable KATHRYN TOBIAS Referring Unavailable KATHRYN TOBIAS Attending Unavailable SELF, SELF Referring Unavailable MATEO MASCORRO Attending Unavailable KALISETTI, MAKAYLA Primary Care Unavailable KALISETTI, MAKAYLA Referring Unavailable KALISETTI, MAKAYLA Primary Care Unavailable KATHRYN TOBIAS Attending Unavailable KALISETTI, MAKAYLA Referring Unavailable KALISETTI, MAKAYLA Primary Care Unavailable SYEDKATHRYN FIORE Attending Unavailable KALISETTI, MAKAYLA Primary Care Unavailable ISAAC HODGE Attending Unavailable ISAAC HODGE Referring Unavailable KALISETTI, MAKAYLA Referring Unavailable SYEDKATHRYN IFORE Attending Unavailable KALISETTI, MAKAYLA Primary Care Unavailable SYEDKATHRYN FIORE Attending Unavailable KALISETTI, MAKAYLA Referring Unavailable KALISETTI, MAKAYLA Primary Care Unavailable KALISETTI, MAKAYLA Referring Unavailable KALISETTI, MAKAYLA Primary Care Unavailable KATHRYN TOBIAS Attending Unavailable KALISETTI, MAKAYLA Referring Unavailable KALISETTI, MAKAYLA Primary Care Unavailable KALISETTI, MAKAYLA Attending Unavailable KALISETTI, MAKAYLA Referring Unavailable KALISETTI, MAKAYLA Primary Care Unavailable KATHRYN TOBIAS Attending Unavailable ISAAC HODGE Referring Unavailable ISAAC HODGE Attending Unavailable KALISETTI, MAKAYLA Primary Care Unavailable MATEO MASCORRO Attending Unavailable MATEO MASCORRO Referring Unavailable KALISETTI, MAKAYLA Primary Care Unavailable KATHRYN TOBIAS Referring Unavailable KALISETTI, MAKAYLA Primary Care Unavailable KALISETTI, MAKAYLA Referring Unavailable KALISETTI, MAKAYLA Primary Care Unavailable KALISECRISTYI, MAKAYLA Attending Unavailable MATEO MASCORRO Attending Unavailable MATEO MASCORRO Referring Unavailable KALISETTI, MAKAYLA Primary Care Unavailable MATEO MASCORRO Attending Unavailable KALISETTI, MAKAYLA Primary Care Unavailable ISAAC HODGE Referring Unavailable KALISETTI, MAKAYLA Referring Unavailable KATHRYN TOBIAS Attending Unavailable KALISETTI, MAKAYLA Primary Care Unavailable KALISETTI, MAKAYLA Referring Unavailable SYEDKATHRYN FIORE Attending Unavailable KALISETTI, MAKAYLA Primary Care Unavailable ISAAC HODGE Referring Unavailable ISAAC HODGE Attending Unavailable KALISETTI, MAKAYLA Primary Care Unavailable KALISETTI, MAKAYLA Referring Unavailable KATHRYN TOBIAS Attending Unavailable KALISETTI, MAKAYLA Primary Care Unavailable KALISETTI, MAKAYLA Referring Unavailable ISAAC HOGDE Attending Unavailable KALISETTI, MAKAYLA Primary Care Unavailable KALISETTI, MAKAYLA Referring Unavailable KALISETTI, MAKAYLA Primary Care Unavailable KATHRYN TOBIAS Attending Unavailable KALISETTI, MAKAYLA Referring Unavailable KALISETTI, MAKAYLA Primary Care Unavailable KATHRYN TOBIAS Attending Unavailable KALISETTI, MAKAYLA Referring Unavailable ISAAC HODGE Attending Unavailable KALISETTI, MAKAYLA Primary Care Unavailable MATEO MASCORRO Attending Unavailable MATEO MASCORRO Referring Unavailable KALISETTI, MAKAYLA Primary Care Unavailable KALISETTI, MAKAYLA Referring Unavailable KALISETTI, MAKAYLA Primary Care Unavailable KATHRYN TOBIAS Attending Unavailable KALISETTI, MAKAYLA Primary Care Unavailable ISAAC HODGE Attending Unavailable ISAAC HODGE Referring Unavailable KALISETTI, MAKAYLA Attending Unavailable KALISETTI, MAKAYLA Referring Unavailable KALISETTI, MAKAYLA Primary Care Unavailable ISAAC HODGE Attending Unavailable ISAAC HODGE Referring Unavailable KALISETTI, MAKAYLA Primary Care Unavailable Natalia Robbins Attending Provider ISAAC HODGE Admitting Unavailable ISAAC HODGE Primary Care Unavailable ISAAC HODGE Attending Unavailable MAKAYLA PETERS MD Admitting Unavailable MAKAYLA PETERS MD Primary Care Unavailable MAKAYLA PETERS MD Attending Unavailable RADHA SANCHEZ MD Primary Care Unavailable RADHA SANCHEZ MD Attending Unavailable RADHA SANCHEZ MD Admitting Unavailable Philly CAPTAIN WAITER, Faizan Guevara Referring Unavailable Philly CAPTAIN WAITERFaizan Attending Unavailable Kalclaudiatti, Makayla Primary Care Unavailable Andrew, Saúl Referring Unavailable Andrew Saúl Attending Unavailable Kalisetti, Makayla Primary Care Unavailable Kalisetti, Makayla Primary Care Unavailable Asher Leyva Attending Unavailable Saúl Macias Attending Unavailable Kalisetti, Makayla Primary Care Unavailable [place], Saúl Referring Unavailable [place] Saúl Attending Unavailable Kalisetti, Makayla Primary Care Unavailable Jazmyn CAPTAIN WAITER, Raquel Attending Unavailable Kalisetti, Makayla Referring Unavailable Kalisetti, Makayla Primary Care Unavailable Braden Hammonds Attending Unavailable Nasra, Braden Referring Unavailable Kalisetti, Makayla Primary Care Unavailable Jazmyn CAPTAIN WAITER, Raquel Attending Unavailable Kalisetti, Makayla Primary Care Unavailable Kalisetti, Makayla Referring Unavailable Kalisetti, Makayla Primary Care Unavailable Nasra, Button[place]ow Referring Unavailable Nasra, [place] Attending Unavailable Kalisetti, Makayla Referring Unavailable Natalia Cannon Attending Unavailable Kalisetti, Makayla Primary Care Unavailable Nasra, Braden Referring Unavailable Nasra, [place] Attending Unavailable Kalisetti, Makyala Primary Care Unavailable Nasra, Braden Attending Unavailable Kalisetti, Makayla Primary Care Unavailable Nasra, Braden Attending Unavailable Nasra, Braden Referring Unavailable Kalisetti, Makayla Primary Care Unavailable Radha Sanchez Attending Unavailable Kalisetti, Makayla Primary Care Unavailable Kalisetti, Makayla Referring Unavailable Nasra, [place] Attending Unavailable Nasra, Braden Referring Unavailable Kalisetti, Makayla Primary Care Unavailable Roof CAPTAIN WAITER, Faizan H Referring Unavailable Roof CAPTAIN WAITER, Faizan H Attending Unavailable Kalisetti, Makayla Primary Care Unavailable Allergies Allergy Classification Reported Allergen(s) Allergy Type Date of Onset Reaction(s) Facility (20 sources) Penicillins; Translations: [PENICILLINS] Propensity to adverse reactions (disorder) 6 Anaphylaxis [facility] Repository Comment on above: hives and asystole (1 source) Penicillins Drug allergy (disorder) [facility] Repository Medications Current Medications Medication Drug Class(es) Dates Sig (Normalized) Sig (Original) acetaminophen 325 mg oral tablet (20 sources) Start: 05-29-2023 take 2 tablets by mouth every four hours as needed Acetaminophen 325 MG tablet Take 2 tablets by mouth every 4 hours as needed for Mild Pain. 0 05/29/2023 Active Start: 05-28-2023 End: 05-30-2023 take 1 tablet by mouth every six hours Acetaminophen (TYLENOL) tablet 650 mg Start: 01-09-2023 End: 01-14-2023 take 1 tablet by mouth every four hours as needed for pain and headache 650 mg, Oral, Every 4 hours PRN, mild pain, fever 100.4 F or greater, headaches, Starting on [facility] 01/09/23 at 1922 docosahexaenoic acid 120 mg / eicosapentaenoic acid 180 mg oral capsule (20 sources) take 2 capsules by m outh once daily [place] 3 1000 MG capsule Take 2 capsules by mouth daily. Active fish oil-omega-3 fatty acids 300-1,000 mg capsule (3 sources) take 2 capsules by m outh once daily fish oil-omega-3 fatty acids 300-1,000 mg capsule Take 2 (two) capsules by mouth daily . 0 Active take 2 capsules by mouth once da tiffanie fish oil-omega-3 fatty acids 300-1,000 mg capsule Take 2 (two) capsules by mouth daily . 0 losartan potassium 50 mg oral tablet (20 sources) Angiotensin 2 Receptor Tami Start: 11-07-2023 Losartan 50 mg tablet Active 25 mg PO DAILY November 07, 2023 9:50am blood pressure Start: 11-07-2023 take 25 mg by mouth once daily Losartan Active 25 MG PO DAILY November 07, 2023 9:50am Start: 03-02-2014 End: 11-07-2023 take 1 tablet by mouth once daily Losartan 50 MG tablet Discontinued 50 mg PO DAILY March 02, 2014 12:00am November 07, 2023 9:51am blood pressure take 0.5 tablet by m outh once daily Losartan 50 MG tablet Take 0.5 tablets by mouth daily. Active mirtazapine 15 mg oral tablet (20 sources) Start: 12-07-2024 take 1 tablet by mouth once daily in the evening Mirtazapine 15 MG tablet TAKE 1 & 1/2 (ONE & ONE-HALF) TABLETS BY MOUTH ONCE DAILY IN THE EVENING 90 tablet 12/07/2024 Active Start: 10-12-2024 take 1 tablet by johann th once daily in the evening Mirtazapine 15 MG tablet TAKE 1 & 1/2 (ONE & ONE-HALF) TABLETS BY MOUTH ONCE DAILY IN THE EVENING 90 tablet 10/12/2024 Active Start: 08-15-2024 take 1 tablet by johann th in the evening Mirtazapine 15 MG tablet TAKE 1 & 1/2 (ONE & ONE-HALF) TABLETS BY MOUTH IN THE EVENING 90 tablet 08/15/2024 Active Start: 06-21-2024 take 1 tablet by johann th in the evening Mirtazapine 15 MG tablet TAKE 1 & 1/2 (ONE & ONE-HALF) TABLETS BY MOUTH IN THE EVENING 90 tablet 06/21/2024 Active Start: 02-27-2024 End: 04-21-2024 take 1 tablet by mouth in the evening Mirtazapine 15 MG tablet TAKE 1 & 1/2 (ONE & ONE-HALF) TABLETS BY MOUTH IN THE EVENING 90 tablet 04/21/2024 Active Start: 12-25-2023 take 1 tablet by johann th in the evening Mirtazapine 15 MG tablet TAKE 1 & 1/2 (ONE & ONE-HALF) TABLETS BY MOUTH IN THE EVENING 90 tablet 12/25/2023 Active Start: 12-01-2023 Mirtazapine 15 MG tablet Take 1.5 tablets (22.5mg) every evening. 45 tablet 12/01/2023 Active Start: 11-12-2023 Mirtazapine 15 MG tablet Take 1.5 tablets (22.5mg) every evening. 11/12/2023 Active Start: 10-01-2023 End: 11-12-2023 mirtazapine 15 MG tablet Roque e 1/2 tab (7.5 mg) in early evening x 7 days then increase to 1 tab (15 mg) in early evening thereafter. 60 tablet 1 10/01/2023 11/12/2023 Discontinued Start: 05-28-2023 End: 05-30-2023 take 15 mg by mouth once daily 15 mg, Oral, DAILY, Fir st dose on Fri05/28/23 at 2100, Until Discontinued Start: 04-16-2023 End: 10-01-2023 mirtazapine 7.5 MG tablet Ta ke 1 tablet by mouth every evening at 6 PM. X 7 days then increase to 2 tabs. 30 tablet 3 04/16/2023 10/01/2023 Discontinued (Reorder) [place]-3 Fatty Acids (11 sources) Start: 03-02-2014 take 300 mg by mouth once daily [place]-3 Fatty Acids Active 300 MG PO DAILY March 01, 2014 11:00pm Start: 03-02-2014 take 300 mg by mouth once nava y [place]-3 Fatty Acids Active 300 MG PO DAILY March 02, 2014 12:00am [place]-3 Fatty Acids 300 MG capsule (8 sources) Start: 03-02-2014 take 1 capsule by mouth once daily [place]-3 Fatty Acids 300 MG capsule Active 300 mg PO DAILY March 02, 2014 12:00am supplement Start: 03-02-2014 take 1 capsule by mouth once d aily [place]-3 Fatty Acids 300 MG capsule Active 300 mg PO DAILY March 02, 2014 12:00am pantoprazole 40 mg delayed release oral tablet (20 sources) Proton Pump Inhibitor Start: 07-08-2018 End: 05-30-2023 take 1 tablet by mouth once daily Pantoprazole 40 MG tablet Active 40 mg PO DAILY July 08, 2018 1:00am reflux Start: 11-29-2015 End: 11-03-2017 take 1 tablet by mouth once daily Pantoprazole 40 MG tablet Discontinued 40 mg PO DAILY November 29, 2015 12:00am November 03, 2017 10:16am triamcinolone acetonide 1 mg/ml topical cream (4 sources) Corticosteroid Start: 11-03-2024 triamcinolone 0.1 % Cream cream Apply to affected areas twice daily. Avoid face. 15 g 2 11/03/2024 Active valACYclovir 1000 mg oral tablet (2 sources) Herpesvirus Nucleoside Analog DNA Polymerase Inhibitor, Herpes Simplex Virus Nucleoside Analog DNA Polymerase Inhibitor, Herpes Zoster Virus Nucleoside Analog DNA Polymerase Inhibitor Start: 02-11-2024 End: 02-18-2024 take 1 tablet by mouth three times daily Valacyclovir 1 g tablet Indications: Herpes zoster without complication Take 1 tablet by mouth 3 times daily for 7 days. 21 tablet 02/11/2024 02/18/2024 Active Start: 06-17-2023 End: 06-24-2023 take 1 tablet by mouth three times daily Valacyclovir 1 g tablet Take 1 tablet by mouth 3 (three) times a day for 7 days. 21 tablet 0 06/17/2023 06/24/2023 Active Completed/Discontinued Medications Medication Drug Class(es) Dates Sig (Normalized) Sig (Original) albuterol 0.833 mg/ml / ipratropium bromide 0.167 mg/ml inhalation solution (1 source) Anticholinergic, beta2-Adrenergic Agonist Start: 05-28-2023 End: 05-30-2023 take 3 mL by inhalation every six hours Ipratropium-albute rol (DUONEB) 0.5-2.5 (3) MG/3ML nebulizer solution 3 mL amitriptyline hydrochloride 10 mg oral tablet (16 sources) Tricyclic Antidepressant Start: 09-16-2022 End: 01-30-2023 take 1 tablet by mouth once daily as needed Amitriptyline 10 mg tablet Discontinued 10 mg PO DAILY as needed September 16, 2022 1:00am January 30, 2023 8:53am End: 11-12-2023 AMITRIPTYLINE HCL PO Take by mouth. 11/12/2023 Discontinued amLODIPine 10 mg oral tablet (20 sources) Dihydropyridine Calcium Channel Tami Start: 06-06-2022 End: 06-28-2024 take 1 tablet by mouth once daily Amlodipine 10 mg tablet Discontinued 10 mg PO DAILY 90 3 July 14, 2023 12:17pm June 28, 2024 12:25pm blood pressure Start: 06-06-2022 End: 06-06-2022 take 1 tablet by mouth once daily Amlodipine 5 mg tablet Discontinued 5 mg PO DAILY June 06, 2022 2:27pm June 06, 2022 2:42pm Start: 04-07-2022 End: 06-06-2022 take 0.5 tablet by mouth once daily, then take 1 tablet by mouth once daily Amlodipine 5 mg tablet Discontinued 2.5 mg PO DAILY 90 4 April 07, 2022 12:11am June 06, 2022 2:28pm take half of a pill (instead of your usual 1) once daily; resume at regular dose on 04/16 Start: 04-07-2022 End: 06-06-2022 Amlodipine Discontinued 2.5 MG PO DAILY April 07, 2022 12:11am June 06, 2022 2:28pm take half of a pill (instead of your usual 1) once daily; resume at regular dose on 04/16 Start: 10-18-2019 End: 04-07-2022 take 1 tablet by mouth once daily Amlodipine 5 mg tablet Discontinued 5 mg PO DAILY 90 4 February 18, 2022 3:43pm April 07, 2022 12:11am Start: 04-08-2019 End: 10-18-2019 take 2.5 mg by mouth once daily Amlodipine 5 mg tablet Discontinued 2.5 mg PO DAILY 45 3 October 12, 2019 1:10pm October 18, 2019 11:45am Start: 04-08-2019 End: 10-18-2019 take 2.5 mg by mouth once daily Amlodipine Discontinue d 2.5 MG PO DAILY 45 October 12, 2019 1:10pm October 18, 2019 11:45am Start: 10-05-2018 End: 04-08-2019 take 1 tablet by mouth once daily Amlodipine 5 mg tablet Discontinued 5 mg PO DAILY 90 3 October 05, 2018 2:50pm April 08, 2019 2:23pm Start: 07-09-2018 End: 10-05-2018 take 1 tablet by mouth once daily Amlodipine 2.5 MG tablet Discontinued 2.5 mg PO DAILY 30 July 09, 2018 1:00am October 05, 2018 2:51pm aspirin 81 mg chewable tablet (20 sources) Platelet Aggregation Inhibitor, Nonsteroidal Anti-inflammatory Drug Start: 09-14-2024 End: 09-15-2024 take 81 mg by mouth once daily 81 mg, Oral, DAILY, First dose on Fri09/14/24 at 1115, Until Discontinued Start: 05-29-2023 End: 05-30-2023 take 81 mg by mouth once daily 81 mg, Oral, DAILY, First dose on Fri05/29/23 at 0900, Until Discontinued, Post-op/Post-Proc Start: 03-02-2014 End: 01-14-2023 take 1 tablet by mouth once daily Aspirin 81 MG tablet Active 81 mg PO DAILY@0800 0 July 09, 2018 1:00am [employer] [facility] atorvastatin 40 mg oral tablet (20 sources) HMG-CoA Reductase Inhibitor Start: 07-23-2018 End: 06-28-2024 take 1 tablet by mouth once daily Atorvastatin 40 mg tablet Discontinued 40 mg PO DAILY 90 July 14, 2023 12:17pm June 28, 2024 12:25pm cholesterol Start: 07-23-2018 End: 07-23-2018 Atorvastatin 80 mg tablet Discontinued 20 mg PO AT BEDTIME July 23, 2018 12:51pm July 23, 2018 12:53pm Start: 07-23-2018 End: 07-23-2018 take 20 mg by mouth at bedtime Atorvastatin Discontinu ed 20 MG PO AT BEDTIME July 23, 2018 12:51pm July 23, 2018 12:53pm Start: 07-09-2018 End: 07-23-2018 take 1 tablet by mouth at bedtime Atorvastatin 80 MG t ablet Discontinued 80 mg PO AT BEDTIME 24 01July 09, 2018 1:00am July 23, 2018 12:52pm Start: 10-18-2014 End: 07-09-2018 take 2 tablets by mouth at bedtime for hyperlipidemia Atorvastatin 20 MG tablet Discontinued 40 mg PO AT BEDTIME October 18, 2014 8:41am July 09, 2018 10:50am for cholesterol Start: 10-18-2014 End: 07-09-2018 take 40 mg by mouth at bedtime for hyperlipidemia Atorvastatin Discontinued 40 MG PO AT BEDTIME October 18, 2014 8:41am July 09, 2018 10:50am for cholesterol Start: 03-02-2014 End: 10-18-2014 Atorvastatin 20 MG tablet Discontinued 25 mg PO AT BEDTIME March 02, 2014 12:00am October 18, 2014 8:41am Start: 03-02-2014 End: 10-18-2014 take 25 mg by mouth at bedtime Atorvastatin Discontinu ed 25 MG PO AT BEDTIME March 02, 2014 12:00am October 18, 2014 8:41am bisacodyl 10 mg rectal suppository (2 sources) Stimulant Laxative Start: 05-29-2023 End: 05-30-2023 bisacodyl (DULCOLAX) suppository 10 mg calcium chloride 0.0014 meq/ml / potassium chloride 0.004 meq/ml / sodium chloride 0.103 meq/ml / sodium lactate 0.028 meq/ml injectable solution (1 source) Start: 04-28-2023 End: 04-28-2023 Lactated ringers IV solution 50 ml clindamycin 18 mg/ml injection (2 sources) Lincosamide Antibacterial Start: 05-28-2023 End: 05-29-2023 take 900 mg intravenously every eight hours Clindamycin (CLEOCIN) 900 mg in dextrose 50 ml premix IVPB Start: 01-13-2023 End: 01-14-2023 clindamycin (CLEOCIN) IVPB 9 00 mg (premix) clindamycin (CLEOCIN) 600 mg/250 mL NS irrigation (1 source) Start: 01-13-2023 End: 01-13-2023 clindamycin (CLEOCIN) 600 mg/250 mL NS irrigation clopidogrel 75 mg oral tablet (20 sources) [id number] Platelet Inhibitor Start: 03-02-2014 End: 12-02-2024 take 1 tablet by mouth once daily Clopidogrel 75 mg Tablet Discontinued 75 mg PO DAILY 60 2 September 19, 2023 1:00am April 12, 2024 3:11pm diazePAM 2 mg oral tablet (4 sources) Benzodiazepine Start: 01-05-2025 End: 02-25-2025 take 1 tablet by mouth three times daily as needed Diazepam 2 mg tablet Discontinued 2 mg PO 3 TIMES DAILY NEEDED as needed for Vertigo 10 January 05, 2025 12:00am February 25, 2025 2:21pm docusate sodium 100 mg oral capsule (16 sources) Start: 05-28-2023 End: 12-03-2023 take 1 capsule by mouth twice daily Docusate 100 MG capsule Take 1 capsule by mouth 2 times daily. 05/30/2023 12/03/2023 Discontinued doxycycline hyclate 100 mg oral capsule (1 source) Tetracycline-class Drug Start: 01-09-2023 End: 01-09-2023 doxycycline (VIBRAMYCIN) oral solid 100 mg 0.4 ml enoxaparin sodium 100 mg/ml prefilled syringe (2 sources) Low Molecular Weight Heparin Start: 05-29-2023 End: 05-30-2023 Enoxaparin Sodium (LOVENOX) injection 40 mg Start: 01-10-2023 End: 01-13-2023 enoxaparin (LOVENOX) syringe 40 mg Fluticasone Furoate (20 sources) Corticosteroid Start: 02-09-2025 End: 02-25-2025 take 200 ug by inhalation once daily Fluticasone Furoate (Arnuity Ellipta) 200 mcg/actuation blister with device Discontinued 1 NMA INHALATION daily 3 February 09, 2025 12:00am February 25, 2025 2:41pm administer at approximately the same time(s) each day Start: 02-09-2025 take 200 ug by inhal ation once daily Fluticasone Furoate (Arnuity Ellipta) 200 mcg/actuation blister with device Active 1 NMA INHALATION daily 3 February 09, 2025 12:00am administer at approximately the same time(s) each day Start: 01-24-2024 Arnuity Ellipt a 200 MCG/ACT Aerosol Powder, breath activated 01/24/2024 Active Start: 12-23-2023 End: 11-30-2024 Fluticasone Propionate 250 mcg/actuation blister with device Discontinued 1 NMA INHALATION TWICE A DAY 60 December 23, 2023 12:00am November 30, 2024 11:35am Start: 12-23-2023 End: 11-30-2024 Fluticasone Propionate 250 mcg/actuation blister with device Discontinued 1 NMA INHALATION TWICE A DAY December 23, 2023 12:00am November 30, 2024 11:35am Start: 12-23-2023 Fluticasone Pr opionate 250 mcg/actuation blister with device Active 1 NMA INHALATION TWICE A DAY December 23, 2023 12:00am Start: 12-19-2023 End: 12-23-2023 take 200 ug by inhalation once daily Fluticasone Furoate (Arnuity Ellipta) 200 mcg/actuation blister with device Discontinued 1 NMA INHALATION daily 1 December 19, 2023 12:00am December 23, 2023 11:00am administer at approximately the same time(s) each day Start: 12-19-2023 End: 12-23-2023 take 200 ug by inhalation once daily Fluticasone Furoate (Arnuity Ellipta) 200 mcg/actuation blister with device Discontinued 1 NMA INHALATION daily December 19, 2023 12:00am December 23, 2023 11:00am administer at approximately the same time(s) each day fluticasone 50 M CG/ACT Suspension nasal spray 2 sprays by Nasal route daily. Active gabapentin 100 mg oral capsule (6 sources) Anti-epileptic Agent Start: 10-18-2024 take 1 capsule by mouth once daily Gabapentin 100 mg capsule Discontinued 100 mg PO daily February 25, 2025 12:00am 500 ml glucose 50 mg/ml / potassium chloride 0.02 meq/ml / sodium chloride 4.5 mg/ml injection (1 source) Start: 05-28-2023 End: 05-29-2023 dextrose 5% and sodium chloride 0.45% 1,000 ml with potassium chloride 20 mEq premix IV solution 1 ml haloperidol 5 mg/ml prefilled syringe (1 source) Typical Antipsychotic Start: 04-28-2023 End: 04-28-2023 Haloperidol lactate (HALDOL) injection 1 mg 1 ml HYDROmorphone hydrochloride 1 mg/ml cartridge (2 sources) Opioid Agonist Start: 05-28-2023 End: 05-28-2023 HYDROmorphone (DILAUDID) injection 0.5 mg Start: 04-28-2023 End: 04-28-2023 HYDROmorphone (DILAUDID) inj ection 0.2 mg iohexol (OMNIPAQUE) 350 MG/M L injection 1-171 mL (5 sources) Start: 11-03-2024 End: 11-03-2024 1-171 mL, Intravenous, ONCE, 1 dose, On 11/03/24 at 0830, Extravasation Risk, CT Procedure Start: 07-29-2024 End: 07-29-2024 1-171 mL, Intravenous, ONCE, 1 dose, On Marleni 07/29/24 at 1345, Extravasation Risk, CT Procedure Start: 04-21-2024 End: 04-21-2024 1-171 mL, Intravenous, ONCE, 1 dose, On 04/21/24 at 1015, Extravasation Risk, CT Procedure Start: 03-10-2024 End: 03-10-2024 1-171 mL, Intravenous, ONCE, 1 dose, On 03/10/24 at 1015, Extravasation Risk, CT Procedure Start: 11-05-2023 End: 11-05-2023 1-171 mL, Intravenous, ONCE, 1 dose, On 11/05/23 at 1115, Extravasation Risk, CT Procedure 24 hr isosorbide mononitrate 30 mg extended release oral tablet (19 sources) Nitrate Vasodilator Start: 06-15-2018 End: 06-23-2018 take 1 tablet by mouth once daily, then take 1 tablet by mouth every twenty-four hours Isosorbide Mononitrate 30 mg tablet extended release 24 hr Discontinued 30 mg PO DAILY 26 06June 15, 2018 1:00am June 23, 2018 2:14pm 1 ml ketorolac tromethamine 15 mg/ml cartridge (1 source) Nonsteroidal Anti-inflammatory Drug, Cyclooxygenase Inhibitor Start: 05-28-2023 End: 05-30-2023 take 15 mg intravenously every six hours as needed Ketorolac (TORADOL) injection 15 mg 10 ml lidocaine hydrochloride 10 mg/ml injection (1 source) Antiarrhythmic, Amide Local Anesthetic Start: 04-28-2023 End: 04-28-2023 Lidocaine 1% (PF) (XYLOCAINE MPF) 1 % injection 0.1-0.3 mL 50 ml magnesium sulfate 80 mg/ml injection (1 source) Start: 05-29-2023 End: 05-29-2023 Magnesium sulfate 4 g in sterile water 50 ml premix IVPB meclizine hydrochloride 25 mg oral tablet (20 sources) Antiemetic Start: 06-10-2023 End: 05-24-2024 take 1 tablet by mouth three times daily Meclizine 25 mg tablet Discontinued 25 mg PO THREE TIMES A DAY 9 0 June 10, 2023 1:00am September 17, 2023 3:58pm Start: 11-30-2020 End: 03-05-2023 take 1 tablet by mouth once daily as needed for dizziness Meclizine 25 mg tablet Discontinued 25 mg PO DAILY as needed for dizziness 30 November 30, 2020 12:00am March 05, 2023 9:57am melatonin 3 mg oral tablet (1 source) Start: 01-09-2023 End: 01-14-2023 take 3 mg by mouth once daily as needed for sleep 3 mg, Oral, Nightly PRN, Sleep, Starting on Marleni 01/09/23 at 1922 metoprolol tartrate 25 mg oral tablet (20 sources) beta-Adrenergic Tami Start: 10-05-2018 End: 01-29-2023 take 1 tablet by mouth twice daily Metoprolol Tartrate 25 mg tablet Discontinued 25 mg PO TWICE A DAY 180 September 23, 2022 4:44pm January 29, 2023 9:45am Start: 07-09-2018 End: 10-05-2018 Metoprolol Tartrate 50 MG ta blet Discontinued 25 mg PO TWICE A DAY 60 July 09, 2018 1:00am October 05, 2018 2:18pm Start: 07-09-2018 End: 10-05-2018 take 25 mg by mouth twice daily Metoprolol Tartrate Di scontinued 25 MG PO TWICE A DAY 60 July 09, 2018 1:00am October 05, 2018 2:18pm Start: 06-23-2018 End: 07-09-2018 take 1 tablet by mouth twice daily Metoprolol Tartrate 50 mg tablet Discontinued 50 mg PO TWICE A DAY June 23, 2018 2:13pm July 09, 2018 10:50am heart Start: 04-23-2018 End: 06-23-2018 Metoprolol Tartrate 50 mg ta blet Discontinued 25 mg PO TWICE A DAY 90 April 23, 2018 11:35am June 23, 2018 2:14pm Start: 04-23-2018 End: 06-23-2018 take 25 mg by mouth twice daily Metoprolol Tartrate Di scontinued 25 MG PO TWICE A DAY 90 April 23, 2018 11:35am June 23, 2018 2:14pm Start: 03-18-2018 End: 04-23-2018 take 0.5 tablet by mouth twice daily Metoprolol Tartrate 50 mg tablet Discontinued 50 mg PO .COMPLEX March 18, 2018 1:58pm April 23, 2018 11:36am 50 mg PO 0.5 tablet twice a day; blood pressure/heart Start: 03-02-2014 End: 03-18-2018 take 1 tablet by mouth twice daily Metoprolol Tartrate 50 MG tablet Discontinued 50 mg PO TWICE A DAY March 02, 2014 12:00am March 18, 2018 1:59pm Nirmatrelvir-Ritonavir (17 sources) Start: 04-07-2022 End: 06-06-2022 Nirmatrelvir-Ritonavir (Paxl ovid (Eua)) 300 mg (150 mg x 2)-100 mg tablets,dose pack Discontinued 0 PO .COMPLEX April 07, 2022 12:00am June 06, 2022 2:27pm take TWO 150 mg tablets of nirmatrelvir with ONE 100 mg tablet of ritonavir twice daily for 5 days Start: 04-07-2022 End: 06-06-2022 Nirmatrelvir-Ritonavir (Paxl ovid (Eua)) 300 mg (150 mg x 2)-100 mg tablets,dose pack Discontinued 0 PO .COMPLEX April 07, 2022 12:00am June 06, 2022 2:27pm take TWO 150 mg tablets of nirmatrelvir with ONE 100 mg tablet of ritonavir twice daily for 5 days Start: 04-07-2022 End: 06-06-2022 Nirmatrelvir-Ritonavir (Paxl ovid (Eua)) 300 mg (150 mg x 2)-100 mg tablets,dose pack Discontinued 0 PO .COMPLEX April 06, 2022 11:00pm June 06, 2022 1:27pm take TWO 150 mg tablets of nirmatrelvir with ONE 100 mg tablet of ritonavir twice daily for 5 days Start: 04-07-2022 Nirmatrelvir-R itonavir (Paxlovid (Eua)) 300 mg (150 mg x 2)- 100 mg tablets,dose pack Active 0 PO .COMPLEX April 07, 2022 12:00am take TWO 150 mg tablets of nirmatrelvir with ONE 100 mg tablet of ritonavir twice daily for 5 days nitroglycerin 0.4 mg sublingual tablet (20 sources) Nitrate Vasodilator Start: 03-02-2014 End: 01-14-2023 Nitroglycerin 0.4 MG tablet Discontinued 0.4 mg SL Q5M as needed for Chest Pain 0 July 09, 2018 1:00am December 03, 2021 1:33pm omega-3 acid ethyl esters (correction) 1000 mg oral capsule (1 source) Start: 01-10-2023 End: 01-14-2023 2 g, Oral, Daily, First dose on Fri01/10/23 at 0900 DO NOT CRUSH OR CHEW. Ondansetron (2 sources) Serotonin-3 Receptor Antagonist Start: 05-28-2023 End: 05-30-2023 take 1 tablet by mouth every six hours as needed Ondansetron (ZOFRAN) tablet 4 mg Start: 04-28-2023 End: 04-28-2023 Ondansetron 4mg/2ml (ZOFRAN) injection 4 mg 4 ml pembrolizumab 25 mg/ml injection (20 sources) Programmed Receptor-1 Blocking Antibody Start: 11-07-2023 End: 02-25-2025 Pembrolizumab (Keytruda) 25 mg/mL solution Discontinued mg .Route November 07, 2023 12:00am February 25, 2025 2:42pm Q 3 week Pembrolizumab (K EYTRUDA IV) by Intravenous route. Active pembrolizumab (KEYTRUDA) 200 mg in Sodium chloride 0.9%, with overfill 68 mL (total volume) chemo infusion (7 sources) Start: 05-24-2024 End: 05-24-2024 200 mg, Intravenous, at 136 mL/hr, Administer over 30 Minutes, ONCE (OUTPT CLINIC), 1 dose, Starting on Fri05/24/24 at 1500, Until Fri05/24/24 at 1552, Do not administer other drugs through same infusion line. Start: 04-28-2024 End: 04-28-2024 200 mg, Intravenous, at 136 mL/hr, Administer over 30 Minutes, ONCE (OUTPT CLINIC), 1 dose, Starting on Fri04/28/24 at 1038, Until Fri04/28/24 at 1139, Do not administer other drugs through same infusion line. Start: 04-07-2024 End: 04-07-2024 200 mg, Intravenous, at 136 mL/hr, Administer over 30 Minutes, ONCE (OUTPT CLINIC), 1 dose, Starting on Fri04/07/24 at 1518, Until Fri04/07/24 at 1557, Do not administer other drugs through same infusion line. Start: 03-17-2024 End: 03-17-2024 200 mg, Intravenous, at 136 mL/hr, Administer over 30 Minutes, ONCE (OUTPT CLINIC), 1 dose, Starting on Fri03/17/24 at 1243, Until Fri03/17/24 at 1328, Do not administer other drugs through same infusion line. Start: 02-25-2024 End: 02-25-2024 200 mg, Intravenous, at 136 mL/hr, Administer over 30 Minutes, ONCE (OUTPT CLINIC), 1 dose, Starting on Fri02/25/24 at 1244, Until Fri02/25/24 at 1349, Do not administer other drugs through same infusion line. Start: 01-21-2024 End: 01-21-2024 200 mg, Intravenous, at 136 mL/hr, Administer over 30 Minutes, ONCE (OUTPT CLINIC), 1 dose, Starting on Fri01/21/24 at 0949, Until Fri01/21/24 at 1033, Do not administer other drugs through same infusion line. Start: 12-24-2023 End: 12-24-2023 200 mg, Intravenous, at 136 mL/hr, Administer over 30 Minutes, ONCE (OUTPT CLINIC), 1 dose, Starting on Fri12/24/23 at 1105, Until Fri12/24/23 at 1201, Do not administer other drugs through same infusion line. pembrolizumab (KEYTRUDA) 200 mg in Sodium chloride 0.9%, with overfill, tubing 82 mL (total volume) chemo infusion (4 sources) Start: 12-03-2023 End: 12-03-2023 200 mg, Intravenous, at 164 mL/hr, Administer over 30 Minutes, ONCE (OUTPT CLINIC), 1 dose, Starting on Fri12/03/23 at 1426, Until Fri12/03/23 at 1521, Do not administer other drugs through same infusion line. Start: 11-12-2023 End: 11-12-2023 200 mg, Intravenous, at 164 mL/hr, Administer over 30 Minutes, ONCE (OUTPT CLINIC), 1 dose, Starting on Fri11/12/23 at 1119, Until Fri11/12/23 at 1222, Do not administer other drugs through same infusion line. Start: 10-22-2023 End: 10-22-2023 200 mg, Intravenous, at 164 mL/hr, Administer over 30 Minutes, ONCE (OUTPT CLINIC), 1 dose, Starting on Fri10/22/23 at 1030, Until Fri10/22/23 at 1116, Do not administer other drugs through same infusion line. Start: 10-01-2023 End: 10-01-2023 200 mg, Intravenous, at 164 mL/hr, Administer over 30 Minutes, ONCE (OUTPT CLINIC), 1 dose, Starting on Fri10/01/23 at 1159, Until Fri10/01/23 at 1253, Do not administer other drugs through same infusion line. pembrolizumab (KEYTRUDA) 400 mg in Sodium chloride 0.9%, with overfill 76 mL (total volume) chemo infusion (3 sources) Start: 09-20-2024 End: 09-20-2024 400 mg, Intravenous, at 152 mL/hr, Administer over 30 Minutes, ONCE (OUTPT CLINIC), 1 dose, Starting on Fri09/20/24 at 1035, Until Fri09/20/24 at 1125, Do not administer other drugs through same infusion line. Start: 08-11-2024 End: 08-11-2024 400 mg, Intravenous, at 152 mL/hr, Administer over 30 Minutes, ONCE (OUTPT CLINIC), 1 dose, Starting on Fri08/11/24 at 1120, Until Fri08/11/24 at 1216, Do not administer other drugs through same infusion line. Start: 06-16-2024 End: 06-16-2024 400 mg, Intravenous, at 152 mL/hr, Administer over 30 Minutes, ONCE (OUTPT CLINIC), 1 dose, Starting on Fri06/16/24 at 1412, Until Fri06/16/24 at 1512, Do not administer other drugs through same infusion line. perflutren lipid microspheres (DEFINITY) 0.143 mg/mL solution 0-10 mL of mixture (1 source) Start: 01-09-2023 End: 01-11-2023 perflutren lipid microspheres (DEFINITY) 0.143 mg/mL solution 0-10 mL of mixture polyethylene glycol 3350 71550 mg powder for oral solution (1 source) Osmotic Laxative Start: 05-30-2023 End: 05-30-2023 Polyethylene glycol (MIRALAX) packet 17 g 100 ml potassium chloride 0.2 meq/ml injection (1 source) Start: 01-09-2023 End: 01-09-2023 take 1 dose intravenously once 20 mEq, Intravenous, at 50 mL/hr, Once, On Marleni 01/09/23 at 1925, For 1 dose For Non-Critical Care Patient give potassium chloride (KCL) 20 mEq IVPB over 2 hours VESICANT prochlorperazine 5 mg/ml injectable solution (1 source) Phenothiazine Start: 04-28-2023 End: 04-28-2023 take 5 mg intravenously every hour as needed Prochlorperazine (COMPAZINE) injection 5 mg regadenoson (LEXISCAN) 0.4 mg/5 mL injection - ADS Override Pull (1 source) Start: 01-10-2023 End: 01-10-2023 regadenoson (LEXISCAN) 0.4 mg/5 mL injection - ADS Override Pull sennosides, correction 17.2 mg oral tablet (17 sources) Start: 05-29-2023 End: 12-03-2023 take 1 tablet by mouth every twelve hours Senna 17.2 MG tablet Take 1 tablet by mouth every 12 hours. 0 05/29/2023 12/03/2023 Discontinued Start: 05-28-2023 End: 05-30-2023 Senna (SENOKOT) tablet 17.2 mg Start: 01-09-2023 End: 01-14-2023 take 1 tablet by mouth twice daily as needed for constipation 8.6 mg (1 tablet), Oral, 2 times daily PRN, constipation, Starting on [facility] 01/09/23 at 1922 20 ml sodium chloride 9 mg/m l injection (20 sources) Start: 11-03-2024 End: 11-03-2024 1-100 mL, Intravenous, ONCE NEEDED, 1 dose, Starting on Fri11/03/24 at 0825, Until Fri11/03/24 at 0829, Flush, CT Procedure Start: 09-20-2024 End: 09-20-2024 500 mL, Intravenous, at 20-9 99 mL/hr, CONTINUOUS, Starting on Fri09/20/24 at 1045, Until Fri09/20/24 at 1348, Infuse at 20 mL/hr. May increase rate of carrier fluid to max rate of drug in line to manage drug induced burning at IV site during infusion and/or to clear the line of drug and flush the IV site for a maximum of 30 min post drug administration. Start: 08-11-2024 End: 08-11-2024 50 mL, Intravenous, at 0-999 mL/hr, NEEDED, Starting on Fri08/11/24 at 1114, Until Fri08/11/24 at 1511, to flush tubing, If drug is on primary tubing and Start: 07-29-2024 End: 07-29-2024 1-100 mL, Intravenous, ONCE NEEDED, 1 dose, Starting on Marleni 07/29/24 at 1337, Until Marleni 07/29/24 at 1337, Flush, CT Procedure Start: 06-16-2024 End: 06-16-2024 50 mL, Intravenous, at 0-999 mL/hr, NEEDED, Starting on Fri06/16/24 at 1412, Until Fri06/16/24 at 1748, to flush tubing, If drug is on primary tubing and Start: 05-24-2024 End: 05-24-2024 1 dose, Starting on 04/28 at 1506, Until Fri05/24/24 at 1515, Created by cabinet override Start: 05-24-2024 End: 05-24-2024 500 mL, Intravenous, at 20-9 99 mL/hr, CONTINUOUS, Starting on Fri05/24/24 at 1500, Until Fri05/24/24 at 1809, Infuse at 20 mL/hr. May increase rate of carrier fluid to max rate of drug in line to manage drug induced burning at IV site during infusion and/or to clear the line of drug and flush the IV site for a maximum of 30 min post drug administration. Start: 04-28-2024 End: 04-28-2024 500 mL, Intravenous, at 20-9 99 mL/hr, CONTINUOUS, Starting on Fri04/28/24 at 1045, Until Fri04/28/24 at 1447, Infuse at 20 mL/hr. May increase rate of carrier fluid to max rate of drug in line to manage drug induced burning at IV site during infusion and/or to clear the line of drug and flush the IV site for a maximum of 30 min post drug administration. Start: 04-21-2024 End: 04-21-2024 1-100 mL, Intravenous, ONCE NEEDED, 1 dose, Starting on Fri04/21/24 at 1008, Until Fri04/21/24 at 1008, Flush, CT Procedure Start: 04-07-2024 End: 04-07-2024 500 mL, Intravenous, at 20-9 99 mL/hr, CONTINUOUS, Starting on Fri04/07/24 at 1530, Until Fri04/07/24 at 2026, Infuse at 20 mL/hr. May increase rate of carrier fluid to max rate of drug in line to manage drug induced burning at IV site during infusion and/or to clear the line of drug and flush the IV site for a maximum of 30 min post drug administration. Start: 03-17-2024 End: 03-17-2024 500 mL, Intravenous, at 20-9 99 mL/hr, CONTINUOUS, Starting on Fri03/17/24 at 1245, Until Fri03/17/24 at 1556, Infuse at 20 mL/hr. May increase rate of carrier fluid to max rate of drug in line to manage drug induced burning at IV site during infusion and/or to clear the line of drug and flush the IV site for a maximum of 30 min post drug administration. Start: 02-25-2024 End: 02-25-2024 500 mL, Intravenous, at 20-9 99 mL/hr, CONTINUOUS, Starting on Fri02/25/24 at 1245, Until Fri02/25/24 at 1556, Infuse at 20 mL/hr. May increase rate of carrier fluid to max rate of drug in line to manage drug induced burning at IV site during infusion and/or to clear the line of drug and flush the IV site for a maximum of 30 min post drug administration. Start: 01-21-2024 End: 01-21-2024 500 mL, Intravenous, at 20-9 99 mL/hr, CONTINUOUS, Starting on Fri01/21/24 at 1000, Until Fri01/21/24 at 1247, Infuse at 20 mL/hr. May increase rate of carrier fluid to max rate of drug in line to manage drug induced burning at IV site during infusion and/or to clear the line of drug and flush the IV site for a maximum of 30 min post drug administration. Start: 12-24-2023 End: 12-24-2023 500 mL, Intravenous, at 20-9 99 mL/hr, CONTINUOUS, Starting on Fri12/24/23 at 1115, Until Fri12/24/23 at 1514, Infuse at 20 mL/hr. May increase rate of carrier fluid to max rate of drug in line to manage drug induced burning at IV site during infusion and/or to clear the line of drug and flush the IV site for a maximum of 30 min post drug administration. Start: 12-03-2023 End: 12-03-2023 500 mL, Intravenous, at 20-9 99 mL/hr, CONTINUOUS, Starting on Fri12/03/23 at 1430, Until Fri12/03/23 at 1740, Infuse at 20 mL/hr. May increase rate of carrier fluid to max rate of drug in line to manage drug induced burning at IV site during infusion and/or to clear the line of drug and flush the IV site for a maximum of 30 min post drug administration. Start: 11-12-2023 End: 11-12-2023 500 mL, Intravenous, at 20-9 99 mL/hr, CONTINUOUS, Starting on Fri11/12/23 at 1130, Until Fri11/12/23 at 1443, Infuse at 20 mL/hr. May increase rate of carrier fluid to max rate of drug in line to manage drug induced burning at IV site during infusion and/or to clear the line of drug and flush the IV site for a maximum of 30 min post drug administration. Start: 11-05-2023 End: 11-05-2023 1-100 mL, Intravenous, ONCE NEEDED, 1 dose, Starting on Fri11/05/23 at 1102, Until Fri11/05/23 at 1102, Flush, CT Procedure Start: 10-22-2023 End: 10-22-2023 500 mL, Intravenous, at 20-9 99 mL/hr, CONTINUOUS, Starting on Fri10/22/23 at 1030, Until Fri10/22/23 at 1458, Infuse at 20 mL/hr. May increase rate of carrier fluid to max rate of drug in line to manage drug induced burning at IV site during infusion and/or to clear the line of drug and flush the IV site for a maximum of 30 min post drug administration. Start: 10-01-2023 End: 10-01-2023 500 mL, Intravenous, at 20-9 99 mL/hr, CONTINUOUS, Starting on Fri10/01/23 at 1200, Until Fri10/01/23 at 1513, Infuse at 20 mL/hr. May increase rate of carrier fluid to max rate of drug in line to manage drug induced burning at IV site during infusion and/or to clear the line of drug and flush the IV site for a maximum of 30 min post drug administration. Start: 01-13-2023 End: 01-13-2023 sodium chloride 0.9% (NS) Start: 01-09-2023 End: 01-11-2023 take 75 mL intravenously every hour 75 mL/hr, Intravenous, Continuous, Starting on Marleni 01/09/23 at 1925 Start: 01-09-2023 End: 01-14-2023 sodium chloride (PF) (NS) fl ush 5 mL Start: 01-09-2023 End: 01-14-2023 sodium chloride (PF) (NS) fl ush 5 mL technetium (Tc-99m) sestamibi (CARDIOLITE) injection 33.4 millicurie (1 source) Start: 01-10-2023 End: 01-10-2023 technetium (Tc-99m) sestamibi (CARDIOLITE) injection 33.4 millicurie technetium (Tc-99m) sestamibi (CARDIOLITE) injection 9.7 millicurie (1 source) Start: 01-10-2023 End: 01-10-2023 technetium (Tc-99m) sestamibi (CARDIOLITE) injection 9.7 millicurie traMADol hydrochloride 50 mg oral tablet (20 sources) Opioid Agonist Start: 07-24-2024 End: 11-30-2024 take 1 tablet by mouth every six hours as needed for pain Tramadol 50 mg tablet Discontinued 50 mg PO EVERY 6 HOURS as needed for pain 12 3 0 July 24, 2024 1:00am November 30, 2024 11:35am Nonspecific abdominal pain Unspecified abdominal pain Start: 05-28-2023 End: 06-16-2024 take 1 tablet by mouth every four hours as needed for pain traMADol 50 MG tablet Indications: NSCLC of right lung , Acute post-operative pain Take 1 tablet by mouth every 4 hours as needed for Moderate Pain or Severe Pain for up to 7 days. 42 tablet 05/30/2023 06/16/2024 Discontinued vitamin e 100 unt oral capsule (20 sources) Start: 01-10-2023 End: 01-14-2023 take 200 [IU] by mouth once daily 200 Units, Oral, Daily, First dose on Fri01/10/23 at 0900 DO NOT CRUSH OR CHEW. Start: 07-08-2018 Vitamin E (Dl, Acetate) 400 UNITS capsule Active 400 U PO DAILY July 08, 2018 1:00am vitamin Start: 03-02-2014 End: 11-03-2017 take 1 tablet by mouth once daily Vitamin E Discontinued 1 TABLET PO DAILY March 01, 2014 11:00pm November 03, 2017 9:16am Start: 03-02-2014 End: 11-03-2017 take 1 tablet by mouth once daily Vitamin E Discontinued 1 TABLET PO DAILY March 02, 2014 12:00am November 03, 2017 10:16am take 1 capsule by mo ut once daily Vitamin E 200 units capsule Take 1 capsule by mouth daily. Active take 1 capsule by mo uth once daily Vitamin E 200 units capsule Take 1 capsule by mouth daily. 0 Active Vitamin E 1 TABLET tablet (8 sources) Start: 03-02-2014 End: 11-03-2017 Vitamin E 1 TABLET tablet Discontinued 1 {tbl} PO DAILY March 02, 2014 12:00am November 03, 2017 10:16am Problems Active Problems Problem Classification Problem Date Documented Date Episodic/Chronic Acute cerebrovascular disease (19 sources) Cerebrovascular accident; Translations: [Cerebral infarction, unspecified] 11-03-2017 Chronic Anxiety disorders (1 source) Anxiety; Translations: [Anxiety disorder, unspecified] 10-01-2023 Chronic Aortic; peripheral; and visceral artery aneurysms (20 sources) Abdominal aortic aneurysm without rupture; Translations: [Abdominal aortic aneurysm, without rupture] Chronic Asthma (20 sources) Asthma-chronic obstructive pulmonary disease overlap syndrome; Translations: [Asthma-chronic obstructive pulmonary disease overlap syndrome] 12-19-2023 Chronic Comment on above: 81% FEV1 Cancer of bronchus; lung (20 sources) Malignant neoplasm of right upper lobe of lung; Translations: [Malignant neoplasm of upper lobe, right bronchus or lung] Onset: 04-15-2023 Resolved: 05-30-2023 03-13-2023 Chronic Comment on above: Status post right pa rtial lobectomy on Keytruda Cardiac dysrhythmias (10 sources) Nonsustained ventricular tachycardia ; Translations: [Nonsustained ventricular tachycardia] 08-05-2023 Chronic Chronic obstructive pulmonary disease and bronchiectasis (10 sources) Mild chronic obstructive pulmonary disease; Translations: [Chronic obstructive pulmonary disease, unspecified] 11-17-2023 Chronic Conduction disorders (20 sources) Right bundle branch block; Translations: [Unspecified right bundle-branch block] Onset: 01-09-2023 10-31-2017 Chronic Comment on above: Implanted 01/14/23 at [facility] bundle branch RV lead Coronary atherosclerosis and other heart disease (20 sources) Coronary arteriosclerosis; Translations: [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] Onset: 01-15-2016 Chronic Comment on above: Status post 4 stents , following with Dr. Desai PTCA OF RCA 02/06; P TCA of proximal LAD & mid RCA 09/10; PTCA/JOB of proximal LAD ISR on 07/08/2018; Coronary atherosclerosis and other heart disease (10 sources) Presence of coronary angioplasty implant and graft; Translations: [Percutaneous transluminal coronary angioplasty status] Onset: 08-28-2023 Episodic Diabetes mellitus without complication (2 sources) Latent autoimmune diabetes mellitus in adult; Translations: [Other specified diabetes mellitus without complications] Onset: 01-15-2016 01-15-2016 Chronic Disorders of lipid metabolism (20 sources) Pure hypercholesterolemia; Translations: [Pure hypercholesterolemia, unspecified] Onset: 01-15-2016 Chronic Esophageal disorders (20 sources) Gastroesophageal reflux disease; Translations: [Gastro-esophageal reflux disease without esophagitis] Onset: 05-27-2023 05-27-2023 Chronic Essential hypertension (20 sources) Essential hypertension; Translations: [Essential (primary) hypertension] Onset: 01-15-2016 Chronic Comment on above: med controlled Fracture of lower limb (19 sources) Fracture of ankle; Translations: [Other fracture of left lower leg, initial encounter for closed fracture] 03-19-2021 Episodic Headache; including migraine (18 sources) Migraine; Translations: [Migraine, unspecified, not intractable, without status migrainosus] 04-14-2022 Chronic Headache; including migraine (19 sources) Headache; Translations: [Headache] 10-31-2017 Episodic Lymphadenitis (1 source) Mediastinal lymphadenopathy; Translations: [Localized enlarged lymph nodes] 04-28-2023 Episodic Maintenance chemotherapy; radiotherapy (20 sources) Patient encounter status; Translations: [Encounter for antineoplastic immunotherapy] Onset: 10-01-2023 10-01-2023 Chronic Miscellaneous mental health disorders (1 source) Difficulty coping; Translations: [Other symptoms and signs involving emotional state] 10-01-2023 Episodic Nausea and vomiting (19 sources) Intractable nausea and vomiting; Translations: [Nausea with vomiting, unspecified] 10-31-2017 Episodic Neoplasms of unspecified nature or uncertain behavior (2 sources) Neoplastic disease; Translations: [Neoplasm of unspecified behavior of unspecified site] 05-06-2023 Episodic Nonspecific chest pain (20 sources) Chest pain; Translations: [Chest pain, unspecified] Onset: 01-09-2023 06-30-2018 Episodic Occlusion or stenosis of precerebral arteries (20 sources) Carotid artery stenosis; Translations: [Occlusion and stenosis of unspecified carotid artery] Onset: 02-14-2025 Chronic Other and ill-defined heart disease (19 sources) Diastolic dysfunction; Translations: [Other ill-defined heart diseases] 10-31-2017 Chronic Other and ill-defined heart disease (19 sources) Cardiomegaly; Translations: [Acquired left ventricular hypertrophy] 10-31-2017 Chronic Other and ill-defined heart disease (1 source) Heart disease, unspecified; Translations: [Heart disease, unspecified] Onset: 04-12-2025 Chronic Other circulatory disease (2 sources) Disorder of carotid artery; Translations: [Disorder of arteries and arterioles, unspecified] 02-25-2025 Chronic Other circulatory disease (1 source) Elevated blood pressure; Translations: [Elevated blood-pressure reading, without diagnosis of hypertension] 01-09-2023 Episodic Other circulatory disease (2 sources) Elevated blood-pressure reading, without diagnosis of hypertension; Translations: [Elevated blood-pressure reading, without diagnosis of hypertension] Onset: 01-09-2023 Episodic Other lower respiratory disease (19 sources) Dyspnea on exertion; Translations: [Other forms of dyspnea] 06-15-2018 Episodic Other lower respiratory disease (2 sources) Dyspnea; Translations: [Shortness of breath] Onset: 01-09-2023 01-09-2023 Episodic Other lower respiratory disease (1 source) Shortness of breath; Translations: [Shortness of breath] Onset: 01-09-2023 Episodic Other lower respiratory disease (14 sources) Lung mass; Translations: [Other nonspecific abnormal finding of lung field] 02-24-2023 Episodic Other lower respiratory disease (5 sources) Other forms of dyspnea; Translations: [Other respiratory abnormalities] Onset: 04-12-2025 02-24-2023 Episodic Other lower respiratory disease (4 sources) Other nonspecific abnormal finding of lung field; Translations: [Swelling, mass, or lump in chest] 02-24-2023 Episodic Other lower respiratory disease (2 sources) Nodule of lung; Translations: [Solitary pulmonary nodule] 09-14-2024 Episodic Other nervous system disorders (3 sources) Neuropathy; Translations: [Polyneuropathy, unspecified] 04-07-2024 Chronic Other nervous system disorders (2 sources) Bilateral peripheral neuropathy of lower limbs; Translations: [Unspecified mononeuropathy of bilateral lower limbs] 02-23-2025 Chronic Other nervous system disorders (2 sources) Unspecified mononeuropathy of bilateral lower limbs; Translations: [Unspecified mononeuropathy of bilateral lower limbs] Onset: 02-23-2025 Chronic Other nervous system disorders (5 sources) Polyneuropathy, unspecified; Translations: [Polyneuropathy, unspecified] Onset: 06-04-2024 Chronic Other nervous system disorders (2 sources) Impairment of balance; Translations: [Other abnormalities of gait and mobility] 02-23-2025 Episodic Other nervous system disorders (3 sources) Other abnormalities of gait and mobility; Translations: [Other abnormalities of gait and mobility] Onset: 02-23-2025 Episodic Other nutritional; endocrine; and metabolic disorders (20 sources) Obese class I; Translations: [Obesity, unspecified] Onset: 05-06-2023 05-06-2023 Chronic Other nutritional; endocrine; and metabolic disorders (1 source) Decrease in appetite; Translations: [Anorexia] 10-01-2023 Episodic Other screening for suspected conditions (not mental disorders or infectious disease) (20 sources) Cardiovascular stress test abnormal; Translations: [Abnormal result of other cardiovascular function study] Onset: 01-09-2023 06-30-2018 Episodic Peripheral and visceral atherosclerosis (20 sources) Peripheral vascular disease; Translations: [Peripheral vascular disease, unspecified] Chronic Pneumonia (except that caused by tuberculosis or sexually transmitted disease) (3 sources) Community acquired pneumonia; Translations: [Pneumonia, unspecified organism] Onset: 01-09-2023 01-09-2023 Episodic Residual codes; unclassified (20 sources) Obstructive sleep apnea syndrome; Translations: [Obstructive sleep apnea (adult) (pediatric)] Onset: 05-27-2023 11-03-2017 Chronic Comment on above: PSG 10 years ago, gladis w his CPAP in 2019 Residual codes; unclassified (5 sources) Obstructive sleep apnea (adult) (pediatric); Translations: [Obstructive sleep apnea (adult)(pediatric)] Onset: 04-12-2025 02-24-2023 Chronic Residual codes; unclassified (1 source) Insomnia; Translations: [Insomnia, unspecified] 10-01-2023 Episodic Unclassified (1 source) Unknown / UNK(Unknown) Onset: 07-23-2013 Unclassified (19 sources) History of TIA 10-31-2017 Unclassified (2 sources) Immunotherapy; Translations: [Immunotherapy] Onset: 05-24-2024 Unclassified (1 source) Other ventricular tachycardia; Translations: [Other ventricular tachycardia] Onset: 04-12-2025 Viral infection (20 sources) Disease caused by 2019-nCoV; Translations: [COVID-19] Onset: 02-11-2024 04-07-2022 Episodic Past or Other Problems Problem Classification Problem Date Documented Date Episodic/Chronic Abdominal pain (9 sources) Nonspecific abdominal pain; Translations: [Unspecified abdominal pain] Onset: 07-24-2024 08-01-2024 Episodic Administrative/social admission (20 sources) Patient encounter status; Translations: [Counseling, unspecified] Onset: 05-27-2023 Resolved: 05-30-2023 05-27-2023 Episodic Conditions associated with dizziness or vertigo (5 sources) Peripheral vertigo; Translations: [Other peripheral vertigo, unspecified ear] Onset: 01-12-2025 01-05-2025 Episodic Diseases of white blood cells (20 sources) Leukocytosis; Translations: [Elevated white blood cell count, unspecified] Onset: 05-29-2023 Resolved: 10-01-2023 05-30-2023 Chronic Mood disorders (20 sources) Mood disorders Onset: 04-22-2023 Resolved: 02-23-2025 04-22-2023 Other connective tissue disease (2 sources) Muscle weakness (generalized); Translations: [Muscle weakness (generalized)] Onset: 06-04-2024 Episodic Other lower respiratory disease (2 sources) Solitary pulmonary nodule; Translations: [Solitary pulmonary nodule] Onset: 09-14-2024 Episodic Other nervous system disorders (20 sources) Acute postoperative pain; Translations: [Other acute postprocedural pain] Onset: 05-27-2023 Resolved: 05-30-2023 05-27-2023 Episodic Other nutritional; endocrine; and metabolic disorders (20 sources) Body mass index 25-29 - overweight; Translations: [Overweight] Onset: 05-06-2023 05-30-2023 Episodic Residual codes; unclassified (20 sources) At moderate risk of venous thromboembolism; Translations: [Other specified personal risk factors, not elsewhere classified] Onset: 05-27-2023 05-27-2023 Episodic Results Test Name Value Interpretation Reference Range Facility MR/BMSEdd 02-25-2025 MR/BMS.JESSIE [facility] Vascular Surgery [address] [place], [place] [address] OFFICE VISIT Date of Service: 02/25/25 MR#: [id number] Acct: [id number] Name: PETAR PENNY Rep #: [id number] : 1945 Provider: INDIA Gomez Age/Sex: 79/M Location: [facility] Status: Signed Intake Vital Signs 01/05/25 18:38 02/25/25 14:34 Height 5 ft 9 in Weight: 200 lb BP 137/76 H Blood Pressure Location Lt brachial Position Sitting Respiration 18 Pulse 75 Pulse Source Monitor Temp 98.6 F Temp Source Temporal Pulse Oximetry (%) 96 Oxygen Delivery Method room air Intake Visit Reasons: AAA, Carotid US Chief Complaint: Follow up Is patient in pain?: No Allergies Penicillins Allergy (Verified 02/25/25 14:34) Anaphylaxis Medications ???Medication ???Instructions ???Recorded ???Confirmed ???Type omega-3 fatty acids 300 mg capsule 300 mg PO DAILY supplement 03/0202/25/25 History pantoprazole 40 mg tablet,delayed 40 mg PO DAILY reflux 07/08/18 History release vitamin E (dl, acetate) 180 mg 400 units PO DAILY vitamin 8 02/25/25 History (400 unit) capsule aspirin 81 mg tablet,delayed 81 mg PO DAILY@0800 [employer] [facility] 1 09/09/17 02/25/25 Rx release nitroglycerin 0.4 mg sublingual 0.4 mg sublingual Q5M PRN Chest 02/25/25 Rx tablet Pain #25 tabs losartan 50 mg tablet 25 mg PO DAILY blood pressure 10/2602/25/25 History amlodipine 10 mg tablet 10 mg PO DAILY blood pressure #90 06/28/24 02/25/25 Rx tabs atorvastatin 40 mg tablet 40 mg PO DAILY cholesterol #90 tab s 06/28/24 02/25/25 Rx clopidogrel 75 mg tablet 75 mg PO DAILY #90 tabs 12/02/24 0 02/25/25 Rx gabapentin 100 mg capsule 100 mg PO QDAY 02/25/25 02/25/25 H istory Have you fallen in the past year?: No PFSH Medical History Squamous cell carcinoma Wears hearing aid in both ears Hearing loss, left Hearing loss, right Alcohol abuse GERD (gastroesophageal reflux disease) Former smoker CPAP (continuous positive airway pressure) dependence Sleep apnea Myocardial infarct Hypertension Pacemaker Second degree AV block, Mobitz type I Presence of permanent cardiac pacemaker PVD (peripheral vascular disease) Abdominal aortic aneurysm without rupture Essential hypertension Pure hypercholesterolemia VANDANA (obstructive sleep apnea) CVA (cerebral vascular accident) Diastolic dysfunction Hyperlipidemia Acquired left ventricular hypertrophy Right bundle-branch block Old myocardial infarction 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 Intractable nausea and vomiting Headache History of TIA Hypertension Coronary artery disease Surgical History S/P lobectomy of lung History of coronary artery stent placement ( 09/18/23) Family History Brother Diabetes Brother Hypertension Brother Cancer esophageal Brother Hip fracture Sister Diabetes Kidney disease kidney failure Sister Diabetes CAD (coronary artery disease) Hx of CABG Obesity Hyperlipidemia Father CAD (coronary artery disease) Myocardial infarction CHF (congestive heart failure) Daughter Migraine Mother Cancer Lung cancer Myocardial infarction Social History Smoking Status: Former smoker pack-years: 23 Tobacco: How many years used: Electronic Cigarette Use: not used how long ago did patient quit smokin second hand exposure: No alcohol intake: former year quit: 1992 substance use type: does not use caffeine: No what type of physical activity do you participate in: bicycling and other details: tredmill frequency: 3-4 times per week duration: 30-45 minutes/day seatbelt use: always do you feel safe at home: Yes HPI HPI HPI: PETAR PENNY, is a 79 M who presents to the office today with concern for PAD. His primary concern is bilateral foot and lower leg numbness/tingling which has been ongoing the last 2 years or so and gradually worsening. It is present all the time, not any better or worse with activity. He recently started using a vibration plate and this seems to help a lot and applying aspercream to his legs also helps significantly. He repots a history of 6 heart attacks and so is worried these symptoms could represent blockages in his leg blood vessels. He does not have any history of prior peripheral vascular interventions. He does take ASA and statin daily due to his history of cardiac stents. He also has a history of carotid artery disease with last duplex showed moderate L ICA stenosis and mild R ICA (more content not included)... Normal [facility] CT CHEST WITHOUT CONTRASTon 02-24-2025 CT CHEST WITHOUT CONTRAST EXAM: CT CHEST WITHOUT CONTRAST COMPARISON: November 03, 2024 CLINICAL INDICATIONS: lung cancer off treatment; lung cancer, s/p RUL lobectomy and immunotherapy, left lung nodules monitor TECHNIQUE: Non contrast axial CT images of the chest 5 mm with 1 mm contiguous high-resolution, coronal MIP and sagittal MPR series. FINDINGS: No new suspicious pulmonary nodule, mass, or infiltrate or pleural effusion Stable fibrosis and microcalcification at the anterior base of the right middle lobe Stable mild reticular and groundglass fibrosis with mild traction bronchiolectasis of distal small airways at the lateral base of the right lower lobe Stable appearance right upper lobectomy No new adenopathy in the chest or axilla Stable subcentimeter middle mediastinal paratracheal lymph nodes Stable aortic and coronary arteriosclerosis No new pericardial effusion 2-lead cardiac pacer tips right atrium and right ventricle No new aggressive osteolytic or blastic bony lesion Bones are mildly demineralized Mild degenerative thoracic spondylosis No new suspicious finding limited upper abdomen IMPRESSION: 1. No evidence of new primary or metastatic neoplasia in the chest, stable exam findings as above David Hardy M.D. This report has been electronically signed and verified by the Radiologist whose name is printed above. This report contains privileged and confidential information and is intended solely for the use of the individual or entity to which it is addressed. If you are not the intended recipient of this report, you are hereby notified that any copying, distribution, dissemination or action taken in relation to the contents of this report is strictly prohibited and may be unlawful. If you have received this report in error, please notify the sender immediately at [phone] and permanently delete the original report and destroy any copies or printouts. Normal [facility] CT Chest WO contraston 02-24 IMPRESSION: 1. No evidence of new primary or metastatic neoplasia in the chest, stable exam findings as above David Hardy M.D. This report has been electronically signed and verified by the Radiologist whose name is printed above. This report contains privileged and confidential information and is intended solely for the use of the individual or entity to which it is addressed. If you are not the intended recipient of this report, you are hereby notified that any copying, distribution, dissemination or action taken in relation to the contents of this report is strictly prohibited and may be unlawful. If you have received this report in error, please notify the sender immediately at [phone] and permanently delete the original report and destroy any copies or printouts. RADIOLOGY EXAM: CT CHEST WITHO UT CONTRAST COMPARISON: November 03, 2024 CLINICAL INDICATIONS: lung cancer off treatment; lung cancer, s/p RUL lobectomy and immunotherapy, left lung nodules monitor TECHNIQUE: Non contrast axial CT images of the chest 5 mm with 1 mm contiguous high-resolution, coronal MIP and sagittal MPR series. FINDINGS: No new suspicious pulmonary nodule, mass, or infiltrate or pleural effusion Stable fibrosis and microcalcification at the anterior base of the right middle lobe Stable mild reticular and groundglass fibrosis with mild traction bronchiolectasis of distal small airways at the lateral base of the right lower lobe Stable appearance right upper lobectomy No new adenopathy in the chest or axilla Stable subcentimeter middle mediastinal paratracheal lymph nodes Stable aortic and coronary arteriosclerosis No new pericardial effusion 2-lead cardiac pacer tips right atrium and right ventricle No new aggressive osteolytic or blastic bony lesion Bones are mildly demineralized Mild degenerative thoracic spondylosis No new suspicious finding limited upper abdomen RADIOLOGY Anselmo Hardy MD - 02/24/2025 EXAM: CT CHEST WITHOUT CONTRAST COMPARISON: November 03, 2024 CLINICAL INDICATIONS: lung cancer off treatment; lung cancer, s/p RUL lobectomy and immunotherapy, left lung nodules monitor TECHNIQUE: Non contrast axial CT images of the chest 5 mm with 1 mm contiguous high-resolution, coronal MIP and sagittal MPR series. FINDINGS: No new suspicious pulmonary nodule, mass, or infiltrate or pleural effusion Stable fibrosis and microcalcification at the anterior base of the right middle lobe Stable mild reticular and groundglass fibrosis with mild traction bronchiolectasis of distal small airways at the lateral base of the right lower lobe Stable appearance right upper lobectomy No new adenopathy in the chest or axilla Stable subcentimeter middle mediastinal paratracheal lymph nodes Stable aortic and coronary arteriosclerosis No new pericardial effusion 2-lead cardiac pacer tips right atrium and right ventricle No new aggressive osteolytic or blastic bony lesion Bones are mildly demineralized Mild degenerative thoracic spondylosis No new suspicious finding limited upper abdomen IMPRESSION IMPRESSION: 1. No evidence of new primary or metastatic neoplasia in the chest, stable exam findings as above David Hardy M.D. This report has been electronically signed and verified by the Radiologist whose name is printed above. This report contains privileged and confidential information and is intended solely for the use of the individual or entity to which it is addressed. If you are not the intended recipient of this report, you are hereby notified that any copying, distribution, dissemination or action taken in relation to the contents of this report is strictly prohibited and may be unlawful. If you have received this report in error, please notify the sender immediately at [phone] and permanently delete the original report and destroy any copies or printouts. [facility] CT Chest WO contrastOrdered By: Anselmo Hardy on 02-24-2025 [facility] Work Phone: CT Chest WO contraston 02-23 Radiology Study observation (narrative) [facility] Cardiovascular ultrasound re portOrdered By: Saúl Morales on 02-10-2025 Study report [facility] Cardiovascular Services [address] [place] [address] AAA Screening 02/09/25 0909 MR#: [id number] Acct: [id number] Name: PETAR PENNY Rep #:[id number] : 1945 79 From: Saúl Naik Attending Dr: Dr. Saúl Morales MD S tatus: REG CLI Ordering Dr: Saúl Morales MD Date: Location: [facility] Sex: M C Admitted: Reason For Study Reason For Study: AAA Aorta Measurements Aorta Doppler Measurements Proximal aorta measures1.91x1.79cm. in cross-sectional axis.Peak systolic flow velocities within the proximal aorta Proximal aorta measures1.96cm. in longitudinal axis. measure 81.4 cm/sec. Mid aorta measures2.68x2.35cm. in cross-sectional axis. Peak systolic flow velocities within the mid aorta measure Mid aorta measures2.29cm. in longitudinal axis. 79.6 cm/sec. Distal aorta measures3.77x3.85cm. in cross-sectional axis. Peak systolic flow velocities within the distal aorta Distal aorta measures3.83cm. in longitudinal axis. measure 61.4 cm/sec. Left Iliac Artery Left iliac artery measures 1.19x1.16 cm. in the cross-sectional axis. Left iliacartery measures 1.18 cm. in the longitudinal axis. Peak systolic velocity in the left iliac artery measures 108.6 cm/sec. Right Iliac Artery Right iliac artery measures 1.061.25 cm. in the cross-sectional axis. Right iliac artery measures 1.00 cm. in the longitudinal axis. Peak systolic velocity in the right iliac artery measures 150.1 cm/sec. Procedure Aorta IVC Iliac vasculature or bypass grafts 44688. Exam performed in department. VL/AAA Screening Interpretation Summary Aorta patent, 3.85 cm aneurysm present Right iliac artery patent, 1.25 cm ectasia present Left iliac artery patent, normal caliber Ordering Physician: Saúl Morales Referring Physician: Makayla Peters MD Performed By: Chelsie Lerma, RVZaira 02/10/251718 Date _ Saúl Morales MD CC: Dr. Saúl Morales MD; Dr. Makayla Peters MD ~ Date Dictated: 02/09/25908 Date Transcribed: 02/10/251718 Consumer Safety Inspector: Signed [facility] Work Phone: Duplex ultrasound of carotid artery reportOrdered By: Saúl Morales on 02-10-2025 Study report [facility] Cardiovascular Services [address] [place] [address] Carotid Duplex Ultrasound 02/09/25925 MR#: [id number] Acct: [id number] Name: PETAR PENNY Rep #:[id number] : 1945 79 From: Saúl Naik Attending Dr: Dr. Saúl Morales MD S tatus: REG CLI Ordering Dr: Saúl Morales MD Date: Location: [facility] Sex: M C Admitted: Reason For Study Reason For Study: Yearly Rt. Velocities/BP Lt. Velocities/BP Prox CCA 71.1/9.7 cm/sec. Prox CCA 93.7/15.1 cm/sec. Mid CCA 61.7/9.7 cm/sec. Mid CCA 80.2/12.6 cm/sec. Dist CCA 53.2/10.7 cm/sec. Dist CCA 58.1/10.2 cm/sec. Prox ICA 108.3/11.5 cm/sec. Prox ICA 154.0/24.3 cm/sec. Mid ICA 64.2/12.6 cm/sec. Mid ICA 108.3/15.2 cm/sec. Dist ICA 45.6/8.1 cm/sec. Dist ICA 93.7/17.0 cm/sec. Rt. ICA/CCA = 1.8. Lt. ICA/CCA = 1.9. Prox ECA 143.0/6.0 cm/sec. Prox ECA 154.0/11.5 cm/sec. Rt. Vert. 36.2/6.9 cm/sec. Lt. Vert. 54.4/10.2 cm/sec. Right Extracranial There is heterogeneous, irregular atherosclerotic plaque noted in the right common carotid artery. There is heterogeneous, irregular atherosclerotic plaque noted in the right internal carotid artery. There is heterogeneous, irregular atherosclerotic plaque noted in the right external carotid artery. Antegrade flow is noted in the right vertebral artery. Left Extracranial There is intimal thickening but no significant atherosclerotic plaque noted in the left common carotid artery. There is heterogeneous, irregular atherosclerotic plaque noted in the left internal carotid artery. There is intimal thickening but no significant atherosclerotic plaque noted in the left external carotid artery. Antegrade flow is noted in the left vertebral artery. Procedure Carotid Duplex 55737. This is a Carotid Duplex examination using B-mode, color flow and specral Doppler. Exam performed in department. VL/Carotid Duplex Ultrasound Interpretation Summary Mild (<50%) stenosis right extracranial internal carotid. Moderate (50-69%) stenosis left extracranial internal carotid. Patent and antegrade vertebrals bilaterally. Ordering Physician: Saúl Morales Referring Physician: Saúl Morales MD Performed By: Chelsie Lerma RVT 02/10/251713 Date _ Saúl Morales MD CC: Dr. Saúl Morales MD; Dr. Makayla Peters MD ~ Date Dictated: 02/09/25925 Date Transcribed: 02/10/251713 Consumer Safety Inspector: Signed [facility] Work Phone: AAA Screeningon 02-09-2025 AAA Screening [facility] Cardiovascular Services [address] [place] [id number] AAA Screening 02/09/25908 MR#: [id number] Acct: [id number] Name: PETAR PENNY Rep #: [id number] : 1945 79 From: Saúl Morales MD Attending Dr: Dr. Saúl Morales MD Status: REG C Ordering Dr: Saúl Morales MD Date: 02/09/25 Location: [facility] Sex: M C Admitted: Reason For Study Reason For Study: AAA Aorta Measurements Aorta Doppler Measurements Proximal aorta measures1.91x1.79cm. in cross-sectional axis.Peak systolic flow velocities within the proximal aorta Proximal aorta measures1.96cm. in longitudinal axis. measure 81.4 cm/sec. Mid aorta measures2.68x2.35cm. in cross-sectional axis. Peak systolic flow velocities within the mid aorta measure Mid aorta measures2.29cm. in longitudinal axis. 79.6 cm/sec. Distal aorta measures3.77x3.85cm. in cross-sectional axis. Peak systolic flow velocities within the distal aorta Distal aorta measures3.83cm. in longitudinal axis. measure 61.4 cm/sec. Left Iliac Artery Left iliac artery measures 1.19x1.16 cm. in the cross-sectional axis. Left iliac artery measures 1.18 cm. in the longitudinal axis. Peak systolic velocity in the left iliac artery measures 108.6 cm/sec. Right Iliac Artery Right iliac artery measures 1.061.25 cm. in the cross-sectional axis. Right iliac artery measures 1.00 cm. in the longitudinal axis. Peak systolic velocity in the right iliac artery measures 150.1 cm/sec. Procedure Aorta IVC Iliac vasculature or bypass grafts 45171. Exam performed in department. VL/AAA Screening Interpretation Summary Aorta patent, 3.85 cm aneurysm present Right iliac artery patent, 1.25 cm ectasia present Left iliac artery patent, normal caliber Ordering Physician: Saúl Morales Referring Physician: Makayla Peters MD Performed By: Chelsie Lerma, T 02/10/251718 Date Saúl Morales MD CC: Dr. Saúl Morales MD; Dr. Makayla Peters MD Date Dictated: 02/09/25908 Date Transcribed: 02/10/251718 Consumer Safety Inspector: Signed Normal [facility] Carotid Duplex Ultrasoundon 02-09-2025 Carotid Duplex Ultrasound [facility] Cardiovascular Services [place] [address] Carotid Duplex Ultrasound 02/09/25925 MR#: [id number] Acct: [id number] Name: PETAR PENNY Rep #: [id number] : 1945 79 From: Saúl Morales MD Attending Dr: Dr. Saúl Morales MD Status: BRI KULKARNI Ordering Dr: Saúl Morales MD Date: 02/09/25 Location: [facility] Sex: M C Admitted: Reason For Study Reason For Study: Yearly Rt. Velocities/BP Lt. Velocities/BP Prox CCA 71.1/9.7 cm/sec. Prox CCA 93.7/15.1 cm/sec. Mid CCA 61.7/9.7 cm/sec. Mid CCA 80.2/12.6 cm/sec. Dist CCA 53.2/10.7 cm/sec. Dist CCA 58.1/10.2 cm/sec. Prox ICA 108.3/11.5 cm/sec. Prox ICA 154.0/24.3 cm/sec. Mid ICA 64.2/12.6 cm/sec. Mid ICA 108.3/15.2 cm/sec. Dist ICA 45.6/8.1 cm/sec. Dist ICA 93.7/17.0 cm/sec. Rt. ICA/CCA = 1.8. Lt. ICA/CCA = 1.9. Prox ECA 143.0/6.0 cm/sec. Prox ECA 154.0/11.5 cm/sec. Rt. Vert. 36.2/6.9 cm/sec. Lt. Vert. 54.4/10.2 cm/sec. Right Extracranial There is heterogeneous, irregular atherosclerotic plaque noted in the right common carotid artery. There is heterogeneous, irregular atherosclerotic plaque noted in the right internal carotid artery. There is heterogeneous, irregular atherosclerotic plaque noted in the right external carotid artery. Antegrade flow is noted in the right vertebral artery. Left Extracranial There is intimal thickening but no significant atherosclerotic plaque noted in the left common carotid artery. There is heterogeneous, irregular atherosclerotic plaque noted in the left internal carotid artery. There is intimal thickening but no significant atherosclerotic plaque noted in the left external carotid artery. Antegrade flow is noted in the left vertebral artery. Procedure Carotid Duplex 57550. This is a Carotid Duplex examination using B-mode, color flow and specral Doppler. Exam performed in department. VL/Carotid Duplex Ultrasound Interpretation Summary Mild (<50%) stenosis right extracranial internal carotid. Moderate (50-69%) stenosis left extracranial internal carotid. Patent and antegrade vertebrals bilaterally. Ordering Physician: Saúl Moralse Referring Physician: Saúl Morales MD Performed By: Chelsie Lerma, RVT 02/10/251713 Date Saúl Morales MD CC: Dr. Saúl Morales MD; Dr. Makayla Peters MD Date Dictated: 02/09/25925 Date Transcribed: 02/10/251713 Consumer Safety Inspector: Signed Normal [facility] 12 Lead EKGon 01-05-2025 12 [address] [facility] Cardiovascular Services [address] [place] [address] 12 Lead EKG 01/05/252026 MR#: [id number] Acct: [id number] Name: PETAR PENNY Rep #: [id number] : 1945 79 From: Radha Sanchez MD Attending Dr: Status: DEP ER Ordering Dr: Saúl Macias DO Date: 01/05/25 Location: ED Sex: M C Admitted: Test Reason : DIZZY Blood Pressure : */* mmHG Vent. Rate : 60 BPM Atrial Rate : 60 BPM P-R Int : 184 ms QRS Dur : 148 ms QT Int : 452 ms P-R-T Axes : 16 49 60 degrees QTcB Int : 452 ms AV dual-paced rhythm Abnormal ECG Confirmed by Radha Sanchez ([id number]), newspaper managing editor ISIDRO ATKINS ([id number]) on 01/06/2025 10:18:37 AM Referred By: Confirmed By: Radha Sanchez 01/06/25 1018 Date Radha Sanchez MD CC: Dr. Saúl Macias, DO; Dr. Makayla Peters MD Signed Normal [facility] Absolute lymphocyte countOrd ered By: Saúl Macias on 01-05-2025 Lymphocytes Auto (Unsp spec) [#/Vol] 1.61 10*3/uL 0.83-4.51 [facility] Absolute neutrophil countOrd ered By: Saúl Macias on 01-05-2025 Neutrophils (Bld) [#/Vol] 4.0 10*3/uL 2.0-7.7 [facility] Anion gap in Serum or Plasma Ordered By: Saúl Macias on 01-05-2025 Anion gap [Moles/Vol] 11 mmol/L 5-15 [facility] Automated lymphocyte count a s percentage of total leukocytesOrdered By: Saúl Macias on 01-05-2025 Lymphocytes/100 WBC Auto (Unsp spec) 23.7 % 19-41 [facility] BUN/creatinine ratioOrdered By: Saúl Macias on 01-05-2025 Urea nitrogen/Creatinine [Mass ratio] 10.3 mg/mg 10- [facility] Basic Metabolic Profile (BMP )on 01-05-2025 BUN/CRE 10.3 RATIO Normal - [facility] Comment on above: Performed By: #### L 100.0100, L500.2500 #### [facility] [address] [place], [address] Calcium [Mass/Vol] 9.2 mg/dL Normal 7.6-11.0 [facility] Comment on above: Performed By: #### L 100.0100, L500.2500 #### [facility] [address] [place], [address] Chloride [Moles/Vol] 102 mmol/L Normal 98-108 [facility] Comment on above: Performed By: #### L 100.0100, L500.2500 #### [facility] [address] [place], [address] CO2 [Moles/Vol] 23.2 mmol/L Normal 21.0-32.0 [facility] Comment on above: Performed By: #### L 100.0100, L500.2500 #### [facility] [address] [place], [address] Creatinine [Mass/Vol] 1.04 mg/dL Normal 0.70-1.20 [facility] Comment on above: Performed By: #### L 100.0100, L500.2500 #### [facility] [address] [place], [address] ECRCL 64.99 ml/min Normal 50-250 [facility] Comment on above: Performed By: #### L 100.0100, L500.2500 #### [facility] [address] [place], [address] GAP 11 Normal 5-15 [facility] Comment on above: Performed By: #### L 100.0100, L500.2500 #### [facility] [address] [place], [address] GFR/1.73 sq M.predicted among non-blacks MDRD (S/P/Bld) [Vol rate/Area] 73 mL/min/{1.73_m2} Normal >60 [facility] Comment on above: Result Comment: mL/m in/1.73m2 CKD-EPI Creatinine Equation (2020) Performed By: #### L 100.0100, L500.2500 #### [facility] [address] [place], [address] Glucose [Mass/Vol] 145 mg/dL High 70-99 [facility] Comment on above: Performed By: #### L 100.0100, L500.2500 #### [facility] [address] [place], [address] Potassium [Moles/Vol] 4.1 mmol/L Normal 3.3-5.1 [facility] Comment on above: Performed By: #### L 100.0100, L500.2500 #### [facility] [address] [place], [address] Sodium [Moles/Vol] 136 mmol/L Normal 133-145 [facility] Comment on above: Performed By: #### L 100.0100, L500.2500 #### [facility] [address] [place], [address] Urea nitrogen [Mass/Vol] 11 mg/dL Normal 4-19 [facility] Comment on above: Performed By: #### L 100.0100, L500.2500 #### [facility] [address] [place], [address] Basophil percentageOrdered B y: Saúl Macias on 01-05-2025 Basophils/100 WBC (Bld) 1.9 % High 0-1 [facility] Bilirubin Test strip Ql (U)O rdered By: Saúl Macias on 01-05-2025 Bilirubin Ql (U) Negative Negative [facility] Brain/Head without Contrasto n 01-05-2025 Brain/Head without Contrast [facility] Imaging Services [address] [place] [address] Brain/Head without Contrast MR#: [id number] Acct: [id number] Name: PETAR PENNY Rep #: [id number] : 1945 M 79 From: Rodolfo Malone MD PCP: Dr. Makayla Peters MD Status: REG ER Study: Brain/Head without Contrast Date of Exam: 12/26 08/21 Exam# [id number] Ordering Dr: Saúl Macias DO PROCEDURE: BRAIN/HEAD WITHOUT CONTRAST 01/05/2025 REASON FOR EXAM: DIZZINESS TECHNIQUE: Head CT without intravenous contrast. Coronal and Sagittal reconstruction series were provided. One or more dose reduction techniques were used (e.g., Automated exposure control, adjustment of the mA and/or kV according to patient size, use of iterative reconstruction technique. COMPARISON: 04/06/2022 FINDINGS: No intracranial mass, hemorrhage or edema. No hydrocephalus. The ventricles are normal in caliber. CT/Brain/Head without Contrast IMPRESSION: No acute abnormality Reading Location: [facility] CC: Dr. Saúl Macias DO; Dr. Makayla Peters MD Consumer Safety Inspector: Signed Normal [facility] CBC W/Diff, Automatedon 12-26 Absolute Lymph 1.61 X10 3/uL Normal 0.83-4.51 [facility] Comment on above: Performed By: #### L 100.0100, L500.2500 #### [facility] [address] [place], [address] Absolute Neut 4.0 X10 3/uL Normal 2.0-7.7 [facility] Comment on above: Performed By: #### L 100.0100, L500.2500 #### [facility] [address] [place], [address] Basophils/100 WBC (Bld) 1.9 % High 0-1 [facility] Comment on above: Performed By: #### L 100.0100, L500.2500 #### [facility] [address] [place], [address] Eosinophils/100 WBC (Bld) 5.9 % High 0-5 [facility] Comment on above: Performed By: #### L 100.0100, L500.2500 #### [facility] [address] [place], [address] Erythrocyte distribution width (RBC) [Ratio] 13.2 % Normal 11.6-14.6 [facility] Comment on above: Performed By: #### L 100.0100, L500.2500 #### [facility] [address] [place], [address] Hematocrit (Bld) [Volume fraction] 44.7 % Normal 40-54 [facility] Comment on above: Performed By: #### L 100.0100, L500.2500 #### [facility] [address] [place], [address] Hemoglobin (Bld) [Mass/Vol] 15.4 g/dL Normal 13.0-16.5 [facility] Comment on above: Performed By: #### L 100.0100, L500.2500 #### [facility] [address] [place], [address] IG% 0.300 Normal 0.0-0.9 [facility] Comment on above: Result Comment: IG% - Immature Granulocytes (promyelocytes, myelocytes and metamyelocytes) > 1% indicates that a LEFT SHIFT is Present. Performed By: #### L 100.0100, L500.2500 #### [facility] [address] [facility] [place], [address] Lymphocytes/100 WBC (Bld) 23.7 % Normal 19-41 [facility] Comment on above: Performed By: #### L 100.0100, L500.2500 #### [facility] [address] [place], [address] MCH (RBC) [Entitic mass] 31.4 pg Normal 27.0-32.0 [facility] Comment on above: Performed By: #### L 100.0100, L500.2500 #### [facility] [address] [place], [address] MCHC (RBC) [Mass/Vol] 34.5 g/dL Normal 32-36 [facility] Comment on above: Performed By: #### L 100.0100, L500.2500 #### [facility] [address] [place], [address] MCV (RBC) [Entitic vol] 91.0 fL Normal 80-94 [facility] Comment on above: Performed By: #### L 100.0100, L500.2500 #### [facility] [address] [place], [address] Monocytes/100 WBC (Bld) 9.9 % Normal 0-10 [facility] Comment on above: Performed By: #### L 100.0100, L500.2500 #### [facility] [address] [place], [address] Neutrophils/100 WBC (Bld) 58.3 % Normal 47-70 [facility] Comment on above: Performed By: #### L 100.0100, L500.2500 #### [facility] [address] [place], [address] Nucleated RBC (Bld) [#/Vol] 0 10*3/uL Normal 0-5 [facility] Comment on above: Performed By: #### L 100.0100, L500.2500 #### [facility] [address] [place], [address] Platelet mean volume (Bld) [Entitic vol] 9.7 fL Normal 6.2-12.0 [facility] Comment on above: Performed By: #### L 100.0100, L500.2500 #### [facility] [address] [place], [address] Platelets (Bld) [#/Vol] 224 10*3/uL Normal 150-450 [facility] Comment on above: Performed By: #### L 100.0100, L500.2500 #### [facility] [address] [place], [address] RBC (Bld) [#/Vol] 4.91 10*6/uL Normal 4.6-6.2 [facility] Comment on above: Performed By: #### L 100.0100, L500.2500 #### [facility] [address] [place], [address] RDW SD 44.2 fl High 35.1-43.9 [facility] Comment on above: Performed By: #### L 100.0100, L500.2500 #### [facility] [address] [place], [address] WBC (Bld) [#/Vol] 6.8 10*3/uL Normal 4.4-11.0 [facility] Comment on above: Performed By: #### L 100.0100, L500.2500 #### [facility] [address] [place], [address] Carbon dioxide, total [Moles /volume] in Central venous bloodOrdered By: Saúl Macias on 01-05-2025 CO2 [Moles/Vol] 23.2 mmol/L 21.0-32.0 [facility] Chloride assayOrdered By: Arley Macias on 01-05-2025 Chloride [Moles/Vol] 102 mmol/L 98-108 [facility] Emergency Department Summary on 01-05-2025 Emergency Department Summary [facility] Medical Records Department [address] [place] [address] Emergency Department Summary 01/05/25 MR#: [id number] Acct: [id number] Name: PETAR PENNY Rep #: [id number] : 1945 79 From: Saúl Macias DO PCP: Dr. Makayla Peters MD Status:DEP ER Location: ED HPI History of Present Illness Chief Complaint: Dizziness Informant: patient Onset/Context/Timing Onset: Days (3) Context: Sudden Onset Timing: Continuous Quality: Spinning Location: Generalized Worsened by: Movement Relieved by: Meclizine Narrative Narrative: Patient presents with dizziness that has been constant for the past 3 days. Patient states that it feels like everything is spinning. Patient states he has been taking meclizine which helps for couple hours and then his dizziness returns. Patient admits to some nausea but denies any vomiting. Patient admits to some tinnitus but denies any hearing changes. Patient denies any fevers or chills. Patient denies any headaches. Patient states it feels like everything is spinning. Patient states it is worse with movement. Patient denies any paresthesias or weakness. Patient denies any visual changes. Prior similar symptoms: Yes (With peripheral vertigo) [facility] Medical History Squamous cell carcinoma Wears hearing aid in both ears Hearing loss, left Hearing loss, right Alcohol abuse GERD (gastroesophageal reflux disease) Former smoker CPAP (continuous positive airway pressure) dependence Sleep apnea Myocardial infarct Hypertension Pacemaker Second degree AV block, Mobitz type I Presence of permanent cardiac pacemaker PVD (peripheral vascular disease) Abdominal aortic aneurysm without rupture Essential hypertension Pure hypercholesterolemia VANDANA (obstructive sleep apnea) CVA (cerebral vascular accident) Diastolic dysfunction Hyperlipidemia Acquired left ventricular hypertrophy Right bundle-branch block Old myocardial infarction 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 Intractable nausea and vomiting Headache History of TIA Hypertension Coronary artery disease Home Medications ???Medication ???Instructions ???Recorded ???Last Taken ???Type omega-3 fatty acids 300 mg capsule 300 mg PO DAILY supplement 03/0203/04/23 10:00 History pantoprazole 40 mg tablet,delayed 40 mg PO DAILY reflux 07/08/18 History release vitamin E (dl, acetate) 180 mg 400 units PO DAILY vitamin 8 03/04/23 08:00 History (400 unit) capsule aspirin 81 mg tablet,delayed 81 mg PO DAILY@0800 [employer] [facility] 1 09/09/17 09/18/23 Rx release nitroglycerin 0.4 mg sublingual 0.4 mg sublingual Q5M PRN Chest Unknown Rx tablet Pain #25 tabs losartan 50 mg tablet 25 mg PO DAILY blood pressure 10/26 09/20 Unknown History pembrolizumab 25 mg/mL intravenous mg .Route 11/07/23 Unknown Histo ry solution (Keytruda) amlodipine 10 mg tablet 10 mg PO DAILY blood pressure #90 06/28/24 Unknown Rx tabs atorvastatin 40 mg tablet 40 mg PO DAILY cholesterol #90 tab s 06/28/24 Unknown Rx clopidogrel 75 mg tablet 75 mg PO DAILY #90 tabs 12/02/24 U nknown Rx diazepam 2 mg tablet 2 mg PO TID PRN PRN Vertigo #10 Unknown Rx TABLETS Allergy/AdvReac Type Severity Reaction Status Date / Time Penicillins Allergy Anaphylaxis Verified 12/08/24 10:53 Family History Brother Diabetes Brother Hypertension Brother Cancer esophageal Brother Hip fracture Sister Diabetes Kidney disease kidney failure Sister Diabetes CAD (coronary artery disease) Hx of CABG Obesity Hyperlipidemia Father CAD (coronary artery disease) Myocardial infarction CHF (congestive heart failure) Daughter Migraine Mother Cancer Lung cancer Myocardial infarction Surgical History S/P lobectomy of lung History of coronary artery stent placement ( 09/18/23) Social History Smoking Status: Former smoker pack-years: 23 Tobacco: How many years used: 23 Electronic Cigarette Use: not used how long ago did patient quit smokin second hand exposure: No alcohol intake: former year quit: 1992 substance use type: does not use caffeine: No what type of physical activity do you participate in: bicycling and other details: tredmill frequency: 3-4 times per week duration: 30-45 minutes/day seatbelt use: always do you feel safe at home: Yes ROS ROS ED Constitutional Constitutional ED: Denies chills or fever(s) Eyes Eyes: Denies blurry vision or change in vision ENT ENT ED: Reports ti (more content not included)... Normal [facility] Eosinophil percentageOrdered By: Saúl Macias on 01-05-2025 Eosinophils/100 WBC (Bld) 5.9 % High 0-5 [facility] Erythrocyte distribution wid th ratioOrdered By: Saúl Macias on 01-05-2025 Erythrocyte distribution width (RBC) [Ratio] 13.2 % 11.6-14.6 [facility] Erythrocyte distribution wid th standard deviationOrdered By: Saúl Macias on 01-05-2025 Erythrocyte distribution width (RBC) [Ratio] 44.2 fl High 35.1-43.9 [facility] Glomerular filtration rate ( GFR) estimation/1.73 sq m using serum, plasma, or whole bOrdered By: Saúl Macias on 01-05-2025 GFR/1.73 sq M.predicted among non-blacks MDRD (S/P/Bld) [Vol rate/Area] 73 mL/min/{1.73_m2} >60 [facility] Comment on above: mL/min/1.73m2 CKD-EP I Creatinine Equation (2020) Hematocrit Auto (Bld) [Volum e fraction]Ordered By: Saúl Macias on 01-05-2025 Hematocrit (Bld) [Volume fraction] 44.7 % 40-54 [facility] Hemoglobin measurementOrdere d By: Saúl Macias on 01-05-2025 Hemoglobin (Bld) [Mass/Vol] 15.4 g/dL 13.0-16.5 [facility] Immature granulocytes/100 WB C Auto (Bld)Ordered By: Saúl Macias on 01-05-2025 Immature granulocytes/100 WBC (Bld) 0.300 % 0.0-0.9 [facility] Comment on above: IG% - Immature Granu locytes (promyelocytes, myelocytes and metamyelocytes) > 1% indicates that a LEFT SHIFT is Present. Ketones Test strip Ql (U)Ord ered By: Saúl Macias on 01-05-2025 Ketones Ql (U) Negative Negative [facility] L501.4021on 01-05-2025 Trop T High Sen 14 ng/L Normal <=22 [facility] Comment on above: Performed By: #### L 500.3400, L501.2450 #### [facility] [address] [place] [address], [address] MCV (mean corpuscular volume ) determinationOrdered By: Saúl Macias on 01-05-2025 MCV (RBC) [Entitic vol] 91.0 fL 80-94 [facility] Mean corpuscular hemoglobin (MCH) determinationOrdered By: Saúl Macias on 01-05-2025 MCH (RBC) [Entitic mass] 31.4 pg 27.0-32.0 [facility] Mean corpuscular hemoglobin concentration (MCHC) determinationOrdered By: Saúl Macias on 01-05-2025 MCHC (RBC) [Mass/Vol] 34.5 g/dL 32-36 [facility] Mean platelet volume determi nationOrdered By: Saúl Macias on 01-05-2025 Platelet mean volume (Bld) [Entitic vol] 9.7 fL 6.2-12.0 [facility] Microscopic analysis of urin e for red blood cells (RBC)Ordered By: Saúl Macias on 01-05-2025 Microscopic analysis of urine for red blood cells (RBC) 0 SEEN /hpf 0-5 [facility] Monocyte percentageOrdered B y: Saúl Macias on 01-05-2025 Monocytes/100 WBC (Bld) 9.9 % 0-10 [facility] Mucus LM Ql (Urine sed)Order ed By: Saúl Macias on 01-05-2025 Mucus Ql (Urine sed) 1+ /hpf [facility] Neutrophil percentageOrdered By: Saúl Macias on 01-05-2025 Neutrophils/100 WBC (Bld) 58.3 % 47-70 [facility] Nitrite Test strip Ql (U)Ord ered By: Saúl Macias on 01-05-2025 Nitrite Ql (U) Negative Negative [facility] Nucleated red blood cell per centageOrdered By: Saúl Macias on 01-05-2025 Nucleated RBC/100 WBC (Bld) [Ratio] 0 % 0-5 [facility] Platelet countOrdered By: Arley Macias on 01-05-2025 Platelets (Bld) [#/Vol] 224 10*3/uL 150-450 [facility] Potassium measurement (mass/ volume)Ordered By: Saúl Macias on 01-05-2025 Potassium (Unsp spec) [Mass/Vol] 4.1 mmol/L 3.3-5.1 [facility] Protein Test strip Ql (U)Ord ered By: Saúl Macias on 01-05-2025 Protein Ql (U) 15 mg/dl High Negative [facility] RBC Auto (Bld) [#/Vol]Ordere d By: Saúl Macias on 01-05-2025 RBC (Bld) [#/Vol] 4.91 10*6/uL 4.6-6.2 [facility] Serum creatinine measurement (mass/volume)Ordered By: Saúl Macias on 06-11-2025 Creatinine [Mass/Vol] 1.04 mg/dL 0.70-1.20 [facility] Serum glucose measurement (m ass/volume)Ordered By: Saúl Macias on 01-05-2025 Glucose [Mass/Vol] 145 mg/dL High 70-99 [facility] Serum or plasma calcium cyndi urement (mass/volume)Ordered By: Saúl Macias on 01-05-2025 Calcium [Mass/Vol] 9.2 mg/dL 7.6-11.0 [facility] Serum or plasma urea nitroge n measurement (mass/volume)Ordered By: Saúl Macias on 01-05-2025 Urea nitrogen [Mass/Vol] 11 mg/dL 4-19 [facility] Sodium levelOrdered By: Saúl Macias on 01-05-2025 Sodium [Moles/Vol] 136 mmol/L 133-145 [facility] Squamous epithelial cells de tection in urine sediment by light microscopyOrdered By: Saúl Macias on 01-05-2025 Epithelial cells.squamous LM Ql (Urine sed) 0 SEEN /hpf 0-5 [facility] Troponin T.cardiac [Mass/vol ume] in Serum or Plasma by High sensitivity methodOrdered By: Saúl Macias on 01-05-2025 Troponin T.cardiac High sensitivity method [Mass/Vol] 14 ng/L <22 [facility] Urinalysis, Completeon 01-05 BACTERIA RARE Normal None Seen [facility] Comment on above: Order Comment: SUZE CTOR TO SPECIFY Performed By: #### L 500.3400, L501.2450 #### [facility] [address] [place], [place], [id number] Mucus Ql (Urine sed) 1+ /hpf Normal [facility] Comment on above: Order Comment: SUZE CTOR TO SPECIFY Performed By: #### L 500.3400, L501.2450 #### [facility] [address] [place], [place], [id number] EPI,SQUAMOUS 0 SEEN Normal 0-5 [facility] Comment on above: Order Comment: SUZE CTOR TO SPECIFY Performed By: #### L 500.3400, L501.2450 #### [facility] [address] [place], [address] RBC 0 SEEN Normal 0-5 [facility] Comment on above: Order Comment: COLLE CTOR TO SPECIFY Performed By: #### L 500.3400, L501.2450 #### [facility] [address] [place], [address] WBC 0 SEEN Normal 0-5 [facility] Comment on above: Order Comment: COLLE CTOR TO SPECIFY Performed By: #### L 500.3400, L501.2450 #### [facility] [address] [place], [address] Urine clarityOrdered By: Eloise Macias on 01-05-2025 Clarity (U) Clear Clear [facility] Urine color determinationOrd ered By: Saúl Macias on 01-05-2025 Color (U) Yellow Yellow [facility] Urine glucose detectionOrder ed By: Saúl Macias on 01-05-2025 Glucose Ql (U) Normal mg/dl Normal [facility] Urine leukocyte esterase det ection by dipstickOrdered By: Saúl Macias on 01-05-2025 Leukocyte esterase Test strip Ql (U) Negative Negative [facility] Urine pHOrdered By: Saúl orellana on 01-05-2025 pH (U) 7.0 [pH] 5.0 - 8.0 [facility] Urine sediment bacteria coun t by microscopy (number/high power field)Ordered By: Saúl Macias on 01-05-2025 Bacteria LM.HPF (Urine sed) [#/Area] RARE /hpf None Seen [facility] Urine specific gravity measu rementOrdered By: Saúl Macias on 01-05-2025 Specific gravity (U) [Rel density] 1.010 1.002-1.030 [facility] Urine urobilinogen measureme ntOrdered By: Saúl Macias on 01-05-2025 Urobilinogen Ql (U) Normal mg/dl Normal [facility] White blood cell (WBC) count Ordered By: Saúl Macias on 01-05-2025 WBC (Bld) [#/Vol] 6.8 10*3/uL 4.4-11.0 [facility] White blood cell countOrdere d By: Saúl Gilberto on 01-05-2025 White blood cell count 0 SEEN /hpf 0-5 [facility] Pulmonary Visit Reporton Pulmonary Visit Report [facility] [address] [place] [address] OFFICE VISIT Date of Service: 12/08/24 MR#: [id number] Acct: [id number] Name: PETAR PENNY Rep #: [id number] : 1945 Provider: YURI Eldridge Age/Sex: 79/M [facility] Status: Signed Assessment and Plan Assessment and Plan (1) Asthma-COPD overlap syndrome: Status: Chronic Comment: 81% FEV1 Plan: Stable, he does not appear to be an exacerbation of COPD today. No need for prednisone or antibiotic. No need for inhalers. No additional testing at this time. Contact the office for any new or worsening symptoms. An acute visit and typically be arranged within 1-2 days. Follow-up in 6 months. (2) Squamous cell lung cancer: Status: Chronic Qualifiers: Laterality: right Qualified Code(s): C34.91 - Malignant neoplasm of unspecified part of right bronchus or lung Comment: Status post right partial lobectomy on Keytruda Plan: Complicates exam, plan, care and prognosis. He has successfully had a robotic partial lobectomy followed by chemotherapy. He has completed all recommended therapies and is now receiving serial imaging by diagnostic CT of the chest every 3 months. (3) VANDANA (obstructive sleep apnea): Status: Chronic Comment: PSG 10 years ago, new his CPAP in 2019 Plan: Stable, he is using and benefiting from Pap therapy. No indication for titration study at this time. Contact the office for any new or worsening symptoms in the meantime. Follow-up in 6 months. Plan Details Additional Comments: This note was generated with Voxifyation software. It may contain incorrect words, spelling, and punctuation that were not noted in checking the note before signing. Follow Up: 6 Months HPI 6 M FU Chief Complaint: routine follow up HPI Comments Details: This patient presents to the office today for follow-up of his asthma/COPD overlap syndrome and obstructive sleep apnea. If you recall, this patient has a history of lung cancer and is status post partial right lobectomy. He is ambulatory, currently on room air. He has not recently been seen in the ED or urgent care for any respiratory illness. He has not required any antibiotics or prednisone for any breathing problems. He continues complete smoking cessation. He denies the use of albuterol for rescue inhaler. He had bronchospasm on Trelegy. He dose not feel the need for an inhaler. He continues to experience shortness of breath on exertion. He has an occasional cough productive of clear sputum but he denies any hemoptysis. He denies any wheezing, chest tightness, chest pain or palpitations. He also denies any fever, chills or body aches. He wakes feeling rested refreshed. He is not having difficulty with dry mouth or mask leaks. He is not requiring naps or nodding off to sleep unintentionally. Compliance report for the past 30 days shows 100% compliance and average use of 7 hours and 18 minutes per night. Current setting is AutoPap 9-15 cmH2O, pressure typically being utilized at 9.7- 12 cm of water. Residual AHI 0.9 events per hour. Leaks do not appear to be problematic. Intake Vital Signs 06/03/24 07:49 12/08/24 08:17 Height 5 ft 9 in 5 ft 9 in Weight: 197 lb BMI 29.0 BP 128/72 H Blood Pressure Location Lt brachial Position Sitting Respiration 16 Pulse 78 Pulse Source Monitor Temp 97.5 F L Temperature Source Temporal Artery Pulse Oximetry (%) 95 Oxygen Delivery Method room air Intake Visit Reasons: 6 M FU Chief Complaint: Follow up Supervisor Cereal Required: No Accompanied by: Self Is patient in pain?: No Allergies Penicillins Allergy (Verified 12/08/24 10:53) Anaphylaxis Medications ???Medication ???Instructions ???Recorded ???Confirmed ???Type omega-3 fatty acids 300 mg capsule 300 mg PO DAILY supplement 03/0212/08/24 History pantoprazole 40 mg tablet,delayed 40 mg PO DAILY reflux 07/08/18 History release vitamin E (dl, acetate) 180 mg 400 units PO DAILY vitamin 8 12/08/24 History (400 unit) capsule aspirin 81 mg tablet,delayed 81 mg PO DAILY@0800 heart health 1 09/09/17 12/08/24 Rx release nitroglycerin 0.4 mg sublingual 0.4 mg sublingual Q5M PRN Chest 12/08/24 Rx tablet Pain #25 tabs losartan 50 mg tablet 25 mg PO DAILY blood pressure 10/2612/08/24 History pembrolizumab 25 mg/mL intravenous mg .Route 11/07/23 12/08/24 Hist ory solution (Keytruda) amlodipine 10 mg tablet 10 mg PO DAILY blood pressure #90 06/28/24 12/08/24 Rx tabs atorvastatin 40 mg tablet 40 mg PO DAILY cholesterol #90 tab s 06/28/24 12/08/24 Rx clopidogrel 75 mg tablet 75 mg PO DAILY #90 tabs 12/02/24 0 12/08/24 Rx Have you fallen in the past year?: No PFSH Med (more content not included)... Normal [facility] HEPATIC FUNCTION PANELon Albumin [Mass/Vol] 3.9 g/dL Normal 3.4 - 5.0 [facility] Comment on above: Performed By: #### 2 [id number] #### [facility],[address] [place] [address] ALK PHOS 59 U/L Normal 46 - 116 [facility] Comment on above: Performed By: #### 2 67744 #### [facility],[address] [place] [address] 74993 ALT [Catalytic activity/Vol] 25 U/L Normal 16 - 63 [facility] Comment on above: Performed By: #### 2 92772 #### [facility],[address] [place] [address] 55159 AST [Catalytic activity/Vol] 28 U/L Normal 15 - 37 [facility] Comment on above: Performed By: #### 2 07202 #### [facility],[address] [place] [address]76 Bilirubin [Mass/Vol] 1.1 mg/dL High 0.2 - 1.0 [facility] Comment on above: Performed By: #### 2 97752 #### [facility],[address] [place] [address]33 Bilirubin.direct [Mass/Vol] 0.2 mg/dL Normal 0.0 - 0.2 [facility] Comment on above: Performed By: #### 2 57070 #### [facility],[address] [place] [address]609 Hepatic function 2000 panel Normal [facility] Comment on above: Result Comment: HEPA TIC FUNCTION PROFILE Performed By: #### 2 25492 #### [facility],[address] [place] [address] 21849 Protein [Mass/Vol] 6.8 g/dL Normal 6.4 - 8.2 [facility] Comment on above: Performed By: #### 2 67466 #### [facility],[address] [place] [address]37[address] LIPID PROFILEon 12-01-2024 Cholesterol [Mass/Vol] 140 mg/dL Normal 0 - 240 [facility] Comment on above: Performed By: #### 2 44662 #### [facility],[address] [place] [address] Cholesterol in HDL [Mass/Vol] 43 mg/dL Normal 40 - 60 [facility] Comment on above: Performed By: #### 2 14168 #### [facility],[address] [place] [address] 13943 Cholesterol in LDL [Mass/Vol] 68 mg/dL Normal 0 - 129 [facility] Comment on above: Performed By: #### 2 09963 #### [facility],[address] [place] [address]294 Cholesterol.total/Roxie sterol in HDL [Mass ratio] 3.3 {ratio} Normal 0.0 - 5.0 [facility] Comment on above: Performed By: #### 2 92656 #### [facility],[address] [place] [address] 66356 Lipid 1996 panel Normal [facility] Comment on above: Result Comment: LIPI D PROFILE Performed By: #### 2 03298 #### [facility],[address] [place] [address]6484 Triglyceride [Mass/Vol] 145 mg/dL Normal 0 - [address] [facility] Comment on above: Performed By: #### 2 11281 #### [facility],[address] [place] [address] Cardiology Visit Reporton Cardiology Visit Report [facility] [address] [place], [place] [address] OFFICE VISIT Date of Service: 11/30/24 MR#: [id number] Acct: [id number] Name: PETAR PENNY Rep #: [id number] : 1945 Provider: Dr. Radha dempsey MD Age/Sex: 79/M Location: [facility] Status: Signed HPI HPI History of Present Illness Details: Patient is a 79-year-old white male that comes today for monitor of his coronary artery disease. The patient has a history of stenting of the right coronary in 2012 his proximal LAD and mid right coronary in 2013 his proximal LAD due to in-stent restenosis in 2017 and stent to the circumflex August 2023. The patient reports he is doing well in his home environment denies any recurrence of any anginal symptoms. He is up and about regular activity levels and is active. The patient does have a history of hyperlipidemia last lipids that we have are from February 2024 total cholesterol 192 HDL 44 LDL 105 and triglycerides 215. He also has a history of hypertension which is well-controlled in the office today he is status post permanent pacemaker implantation December 2022 at [facility] in [place]. At that time he was diagnosed with lung cancer and had right upper lobe resected and is said to be cancer free after treatment with Keytruda. The patient also has a history abdominal aortic aneurysm last ultrasound was January 30, 2024 measured 3.61 x 3.67. This was unchanged from December 2022. He follows with Dr. Morales from the vascular team. Patient's device check in the office today shows that he is 5.8% a paced 99.8% V paced battery life is 11.6 years he has had no atrial tach or atrial fibs. There were 10 nonsustained ventricular high rates of 7-8 beats at a time. The RV amplitude was increased at this device check. The patient's only real complaint is of some bilateral lower extremity paresthesias. He reports he went through physical therapy and this resolved but since he quit physical therapy are as he is no longer doing the exercises that has recurred. He denies any other significant symptoms. Intake Vital Signs 07/23/24 20:17 11/30/24 11:31 Height 5 ft 9 in 5 ft 9 in Weight: 199 lb BMI 29.3 BP 132/66 H Blood Pressure Location Lt brachial Position Sitting Respiration 18 Pulse 70 Pulse Source Monitor Pulse Oximetry (%) 94 Oxygen Delivery Method room air Intake Visit Reasons: 6 M FU/ANDREA @ 11 Supervisor Cereal Required: No Accompanied by: Self Is patient in pain?: No Allergies Penicillins Allergy (Verified 11/30/24 11:32) Anaphylaxis Medications ???Medication ???Instructions ???Recorded ???Confirmed ???Type omega-3 fatty acids 300 mg capsule 300 mg PO DAILY supplement 03/0211/30/24 History pantoprazole 40 mg tablet,delayed 40 mg PO DAILY reflux 07/08/18 History release vitamin E (dl, acetate) 180 mg 400 units PO DAILY vitamin 8 11/30/24 History (400 unit) capsule aspirin 81 mg tablet,delayed 81 mg PO DAILY@0800 heart health 1 09/09/17 11/30/24 Rx release nitroglycerin 0.4 mg sublingual 0.4 mg sublingual Q5M PRN Chest 11/30/24 Rx tablet Pain #25 tabs losartan 50 mg tablet 25 mg PO DAILY blood pressure 10/2611/30/24 History pembrolizumab 25 mg/mL intravenous mg .Route 11/07/23 11/30/24 Hist ory solution (Keytruda) clopidogrel 75 mg tablet 75 mg PO DAILY #60 tabs 04/12/24 0 11/30/24 Rx amlodipine 10 mg tablet 10 mg PO DAILY blood pressure #90 06/28/24 11/30/24 Rx tabs atorvastatin 40 mg tablet 40 mg PO DAILY cholesterol #90 tab s 06/28/24 11/30/24 Rx Ejection fraction %: 55 Have you fallen in the past year?: No [facility] Medical History (Updated 11/30/24 @ 12:[address] Radha Sanchez MD) Squamous cell carcinoma Wears hearing aid in both ears Hearing loss, left Hearing loss, right Alcohol abuse GERD (gastroesophageal reflux disease) Former smoker CPAP (continuous positive airway pressure) dependence Sleep apnea Myocardial infarct Hypertension Pacemaker Second degree AV block, Mobitz type I Presence of permanent cardiac pacemaker PVD (peripheral vascular disease) Abdominal aortic aneurysm without rupture Essential hypertension Pure hypercholesterolemia VANDANA (obstructive sleep apnea) CVA (cerebral vascular accident) Diastolic dysfunction Hyperlipidemia Acquired left ventricular hypertrophy Right bundle-branch block Old myocardial infarction 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 Intractable nausea and vomiting Headache History of TIA Hypertension Coronary artery disease Surgical History S/P lobectomy of lung History of coronary artery stent placement ( 09/18/23) Family History (Revie (more content not included)... Normal [facility] Pacemaker Checkon 11-30-2024 Pacemaker Check [facility] [address] [place], [place] [address]. [address] [place] [address] Pacemaker Check Date of Service: 11/30/24 141 MR#: [id number] Acct: [id number] Name: PETAR PENNY Rep #: [id number] : 1945 From: Nadege Lopez Age/Sex: 79/M [facility] [facility] Status: Signed Billing Codes PM Device Codes: 54139 PM Dev Prog Eval, Dual Assessment and Plan Assessment and Plan (1) Second degree AV block, Mobitz type I: Status: Acute (2) Presence of permanent cardiac pacemaker: Status: Acute Comment: Implanted 01/14/23 at [facility] Left bundle branch RV lead 11/30/24 1418 Date Nadege Mathis Signature: Date (if applicable) CC: Normal [facility] CT CHEST WITH CONTRASTon CT CHEST WITH CONTRAST EXAM: CT CHEST WI TH CONTRAST COMPARISON: Chest CT 07/29/2024 CLINICAL INDICATIONS: lung cancer restaging - on active treatment TECHNIQUE: IV contrast enhanced axial CT images of the chest 5 mm with 1 mm contiguous high-resolution, coronal MIP and sagittal MPR series. FINDINGS: Lungs and Pleura: Postsurgical changes of right upper lobectomy. Previously seen 6 x 6 mm nodule in the superior segment of the right lower lobe has resolved. Two left lower lobe subpleural nodules are unchanged (series 3 image [id number]). Small cystic regions involving the right lower lobe costophrenic angle are unchanged (as on series 3 image 206, 204). No pleural effusions. Moderate emphysema. Right middle lobe atelectasis, unchanged. Tracheobronchial tree: Patent airways. Mediastinum/Leni: No adenopathy. Axilla and Supraclavicular Regions: No adenopathy. Cardiovascular: Normal heart size. No pericardial effusion. Coronary artery calcifications versus stents. Left chest wall pacemaker leads terminate in the right heart chambers. Old left ventricular inferior wall AR. Moderate thoracic aorta atherosclerotic disease. Bones and soft tissues: No aggressive osteoblastic or lytic bony lesions. Upper abdomen: Unremarkable upper abdomen. IMPRESSION: 1. Resolved lobulated nodule in the right lower lobe superior segment, other pulmonary nodules are stable. No new suspicious pulmonary nodules. 2. No adenopathy in the chest. Dr. Rosalina George MD This report has been electronically signed and verified by the Radiologist whose name is printed above. This report contains privileged and confidential information and is intended solely for the use of the individual or entity to which it is addressed. If you are not the intended recipient of this report, you are hereby notified that any copying, distribution, dissemination or action taken in relation to the contents of this report is strictly prohibited and may be unlawful. If you have received this report in error, please notify the sender immediately at [phone] and permanently delete the original report and destroy any copies or printouts. Normal [facility] CBC AND ELECTRONIC DIFFon Basophils (Bld) [#/Vol] 0.14 10*3/uL High 0.00 - 0.09 K/uL [facility] Basophils/100 WBC (Bld) 1.8 % [facility] Differential cell count method Nom (Bld) Electronic Differential [facility] Eosinophils (Bld) [#/Vol] 0.29 10*3/uL 0.00 - 0.48 K/uL [facility] Eosinophils/100 WBC (Bld) 3.8 % [facility] Erythrocyte distribution width (RBC) [Ratio] 13.4 % 10.9 - 14.3 % [facility] Hematocrit (Bld) [Volume fraction] 43.5 % 39.6 - 48.8 % [facility] Hemoglobin (Bld) [Mass/Vol] 15.1 g/dL 13.4 - 16.8 g/dL [facility] Immature granulocytes (Bld) [#/Vol] K/uL NINF - 0.07 K/uL [facility] Immature granulocytes/100 WBC (Bld) 0.3 % [facility] Interpretation and review of laboratory results Abnormal [facility] Lymphocytes (Bld) [#/Vol] 1.9 10*3/uL 0.83 - 3.57 K/uL [facility] Lymphocytes/100 WBC (Bld) 25 % [facility] MCH (RBC) [Entitic mass] 31.1 pg 26.1 - 33.3 pg [facility] MCHC (RBC) [Mass/Vol] 34.7 g/dL 31.9 - 36.5 g/dL [facility] MCV (RBC) [Entitic vol] 89.5 fL 79.0 - 94.5 fL [facility] Monocytes (Bld) [#/Vol] 0.67 10*3/uL 0.24 - 0.93 K/uL [facility] Monocytes/100 WBC (Bld) 8.8 % [facility] Neutrophils (Bld) [#/Vol] 4.58 10*3/uL 1.57 - 6.19 K/uL [facility] Nucleated RBC/100 WBC (Bld) [Ratio] 0 % NINF [facility] Platelet mean volume (Bld) [Entitic vol] 9.9 fL 8.7 - 12.3 fL [facility] Platelets (Bld) [#/Vol] 235 10*3/uL 146 - 337 K/uL [facility] RBC (Bld) [#/Vol] 4.86 10*6/uL [facility] Segmented neutrophils/100 WBC (Bld) 60.3 % [facility] WBC (Bld) [#/Vol] 7.6 10*3/uL 3.73 - 10. 10 K/uL [facility] Basophils (Bld) [#/Vol] 0.14 10*3/uL High 0.00-0.09 [facility] Comment on above: Performed By: #### C MPN, LDO, FT4, TSH #### [facility] (DEFAULT) [address] [address] Basophils/100 WBC (Bld) 1.8 % Normal O [facility] Comment on above: Performed By: #### C MPN, LDO, FT4, TSH #### [facility] (DEFAULT) [address] [place] [address] DIFF STATUS Electronic Differential Normal [facility] Comment on above: Performed By: #### C MPN, LDO, FT4, TSH #### [facility] (DEFAULT) [address] [address] Eosinophils (Bld) [#/Vol] 0.29 10*3/uL Normal 0.00-0.48 [facility] Comment on above: Performed By: #### C MPN, LDO, FT4, TSH #### [facility] (DEFAULT) [address] [place] [address]40 Eosinophils/100 WBC (Bld) 3.8 % Normal [facility] Comment on above: Performed By: #### C MPN, LDO, FT4, TSH #### [facility] (DEFAULT) [address] [place] [address]46 Hematocrit (Bld) [Volume fraction] 43.5 % Normal 39.6-48.8 [facility] Comment on above: Performed By: #### C MPN, LDO, FT4, TSH #### [facility] (DEFAULT) [address] [place] [address]007 Hemoglobin (Bld) [Mass/Vol] 15.1 g/dL Normal 13.4-16.8 [facility] Comment on above: Performed By: #### C MPN, LDO, FT4, TSH #### [facility] (DEFAULT) [address] [place] [address]10 Immature Grans % 0.3 % Normal [facility] Comment on above: Performed By: #### C MPN, LDO, FT4, TSH #### [facility] (DEFAULT) [address] [place] [address]4874 Immature Grans Absolute < Normal <=0.[address] [facility] Comment on above: Performed By: #### C MPN, LDO, FT4, TSH #### [facility] (DEFAULT) [address] [place] [address]647 Lymphocytes (Bld) [#/Vol] 1.90 10*3/uL Normal 0.83-3.57 [facility] Comment on above: Performed By: #### C MPN, LDO, FT4, TSH #### [facility] (DEFAULT) [address] [place] [address] 22291 Lymphocytes/100 WBC (Bld) 25.0 % Normal [facility] Comment on above: Performed By: #### C MPN, LDO, FT4, TSH #### [facility] (DEFAULT) [address] [place] [address] 62579 MCV (RBC) [Entitic vol] 89.5 fL Normal 79.0-94.[address] [facility] Comment on above: Performed By: #### C MPN, LDO, FT4, TSH #### [facility] (DEFAULT) [address] [place] [address] 68990 Mean Cell Hgb 31.1 pg Normal 26.1-33.3 [facility] Comment on above: Performed By: #### C MPN, LDO, FT4, TSH #### [facility] (DEFAULT) [address] [place] [address] 54068 Mean Cell Hgb Conc 34.7 g/dL Normal 31.9-36.5 [facility] Comment on above: Performed By: #### C MPN, LDO, FT4, TSH #### [facility] (DEFAULT) [address] [place] [address] 04996 Monocytes (Bld) [#/Vol] 0.67 10*3/uL Normal 0.24-0.93 [facility] Comment on above: Performed By: #### C MPN, LDO, FT4, TSH #### [facility] (DEFAULT) [address] [place] [address] 52283 Monocytes/100 WBC (Bld) 8.8 % Normal [facility] Comment on above: Performed By: #### C MPN, LDO, FT4, TSH #### [facility] (DEFAULT) [address] [place] [address] 49226 Nucleated RBC 0.0 /100 WBC Normal <=0.2 [facility] Comment on above: Performed By: #### C MPN, LDO, FT4, TSH #### [facility] (DEFAULT) [address] [place] [address] 28652 Platelet mean volume (Bld) [Entitic vol] 9.9 fL Normal 8.7-12.3 [facility] Comment on above: Performed By: #### C MPN, LDO, FT4, TSH #### [facility] (DEFAULT) [address] [place] [address] 70516 Platelets (Bld) [#/Vol] 235 10*3/uL Normal 146-337 [facility] Comment on above: Performed By: #### C MPN, LDO, FT4, TSH #### [facility] (DEFAULT) [address] [place] [address] 97473 RBC (Bld) [#/Vol] 4.86 10*6/uL Normal 4.38-5.83 [facility] Comment on above: Performed By: #### C MPN, LDO, FT4, TSH #### [facility] (DEFAULT) [address] [place] [address] 55582 RBC Distribution 13.4 % Normal 10.9-14.[address] [facility] Comment on above: Performed By: #### C MPN, LDO, FT4, TSH #### [facility] (DEFAULT) [address] [place] [address] 94999 Segs + Bands Auto 60.3 % Normal [facility] Comment on above: Performed By: #### C MPN, LDO, FT4, TSH #### [facility] (DEFAULT) [address] [place] [address] 63414 Segs + Bands,Absolute Auto 4.58 K/uL Normal 1.57-6.19 [facility] Comment on above: Performed By: #### C MPN, LDO, FT4, TSH #### [facility] (DEFAULT) [address] [place] [address] 68581 WBC (Bld) [#/Vol] 7.60 10*3/uL Normal 3.73-10.10 [facility] Comment on above: Performed By: #### C MPN, LDO, FT4, TSH #### [facility] (DEFAULT) [address] [place] [address] 55328 COMPREHENSIVE METABOLIC PANE Wilber 11-03-2024 Albumin [Mass/Vol] 4.5 g/dL 3.5 - 5.0 g/dL [facility] ALP [Catalytic activity/Vol] 62 U/L 32 - 126 U/L [facility] ALT [Catalytic activity/Vol] 13 U/L 10 - 52 U/L [facility] Anion gap [Moles/Vol] 11 mmol/L 7 - 17 mmol/L [facility] AST [Catalytic activity/Vol] 21 U/L 10 - 39 U/L [facility] Bilirubin [Mass/Vol] 1.3 mg/dL NINF - 1.5 mg/dL [facility] Calcium [Mass/Vol] 8.9 mg/dL 8.6 - 10. 5 mg/dL [facility] Chloride [Moles/Vol] 104 mmol/L 98 - 10 8 mmol/L [facility] CO2 [Moles/Vol] 24 mmol/L 21 - 31 mmol/L [facility] Creatinine [Mass/Vol] 1.11 mg/dL 0.70 - 1.30 mg/dL [facility] eGFR, CKD-EPI, Male 68 - PINF [facility] Comment on above: Reported eGFR is bas ed on the CKD-EPI 2020 equation using creatinine, age, and sex. Glucose [Mass/Vol] 104 mg/dL 70 - 179 mg/dL [facility] Osmolality Calc [Osmolality] 283 [facility] Potassium [Moles/Vol] 4.2 mmol/L 3.5 - 5.0 mmol/L [facility] Protein [Mass/Vol] 6.9 g/dL 6.4 - 8.3 g/dL [facility] Sodium [Moles/Vol] 135 mmol/L 135 - 145 mmol/L [facility] Urea nitrogen [Mass/Vol] 9 mg/dL 7 - 25 mg/dL [facility] Urea nitrogen/Creatinine [Mass ratio] 8 mg/mg [facility] Albumin [Mass/Vol] 4.5 g/dL Normal 3.5-5.0 [facility] Comment on above: Performed By: #### C MPN, LDO, FT4, TSH #### [facility] (DEFAULT) [address] [place] [address] 98808 ALP [Catalytic activity/Vol] 62 U/L Normal 32-126 [facility] Comment on above: Performed By: #### C MPN, LDO, FT4, TSH #### [facility] (DEFAULT) [address] [place] [address] 80872 ALT [Catalytic activity/Vol] 13 U/L Normal 10-52 [facility] Comment on above: Performed By: #### C MPN, LDO, FT4, TSH #### [facility] (DEFAULT) [address] [place] [address] 69642 Anion gap [Moles/Vol] 11 mmol/L Normal 7-17 [facility] Comment on above: Performed By: #### C MPN, LDO, FT4, TSH #### [facility] (DEFAULT) [address] [place] [address] 21892 AST [Catalytic activity/Vol] 21 U/L Normal 10-39 [facility] Comment on above: Performed By: #### C MPN, LDO, FT4, TSH #### [facility] (DEFAULT) [address] [place] [address] 74006 Bilirubin [Mass/Vol] 1.3 mg/dL Normal <1.5 [facility] Comment on above: Performed By: #### C MPN, LDO, FT4, TSH #### [facility] (DEFAULT) [address] [place] [address] 61963 Calcium [Mass/Vol] 8.9 mg/dL Normal 8.6-10.5 [facility] Comment on above: Performed By: #### C MPN, LDO, FT4, TSH #### [facility] (DEFAULT) [address] [place] [address] 84410 Chloride [Moles/Vol] 104 mmol/L Normal 98-108 [facility] Comment on above: Performed By: #### C MPN, LDO, FT4, TSH #### [facility] (DEFAULT) [address] [place] [address] 46037 CO2 [Moles/Vol] 24 mmol/L Normal 21-31 [facility] Comment on above: Performed By: #### C MPN, LDO, FT4, TSH #### [facility] (DEFAULT) [address] [place] [address] 75886 Creatinine [Mass/Vol] 1.11 mg/dL Normal 0.70-1.30 [facility] Comment on above: Performed By: #### C MPN, LDO, FT4, TSH #### [facility] (DEFAULT) [address] [place] [address] 60075 GFR/1.73 sq M.predicted among non-blacks MDRD (S/P/Bld) [Vol rate/Area] 68 mL/min/{1.73_m2} Normal >=60 [facility] Comment on above: Result Comment: Repo rted eGFR is based on the CKD-EPI 2020 equation using creatinine, age, and sex. Performed By: #### C MPN, LDO, FT4, TSH #### [facility] (DEFAULT) [address] [place] [address] 82128 Glucose [Mass/Vol] 104 mg/dL Normal Nonfastin -179 mg/dL; Fastin-99 [facility] Comment on above: Performed By: #### C MPN, LDO, FT4, TSH #### [facility] (DEFAULT) [address] [place] [address] 72900 Osmolality [Osmolality] 283 mosm/kg Normal 278-305 [facility] Comment on above: Performed By: #### C MPN, LDO, FT4, TSH #### [facility] (DEFAULT) [address] [place] [address] 29998 Potassium [Moles/Vol] 4.2 mmol/L Normal 3.5-5.0 [facility] Comment on above: Performed By: #### C MPN, LDO, FT4, TSH #### [facility] (DEFAULT) [address] [place] [address] 14656 Protein [Mass/Vol] 6.9 g/dL Normal 6.4-8.3 [facility] Comment on above: Performed By: #### C MPN, LDO, FT4, TSH #### [facility] (DEFAULT) [address] [place] [address] 45940 Sodium [Moles/Vol] 135 mmol/L Normal 135-145 [facility] Comment on above: Performed By: #### C MPN, LDO, FT4, TSH #### [facility] (DEFAULT) [address] [place] [address] 49561 Urea nitrogen [Mass/Vol] 9 mg/dL Normal 7-25 [facility] Comment on above: Performed By: #### C MPN, LDO, FT4, TSH #### [facility] (DEFAULT) [address] [place] [address] 96237 Urea nitrogen/Creatinine [Mass ratio] 8 mg/mg Normal [facility] Comment on above: Performed By: #### C MPN, LDO, FT4, TSH #### [facility] (DEFAULT) [address] [place] [address] 23715 CREAT/GFRon 11-03-2024 Creatinine [Mass/Vol] 0.89 mg/dL 0.70 - 1.30 mg/dL [facility] GFR/1.73 sq M.predicted CKD-EPI (S/P/Bld) [Vol rate/Area] 88 - PINF [facility] Comment on above: Reported eGFR is bas ed on the CKD-EPI 2020 equation using creatinine, age, and sex. Interpretation and review of laboratory results Normal [facility] Test performed at address of the patient encounter. [facility] BUN/creatinine ratioOrdered By: Faizan Fraga on 09-21-2024 Urea nitrogen/Creatinine [Mass ratio] 10.8 mg/mg 10- [facility] Basic Metabolic Profile (BMP )on 09-21-2024 Anion gap [Moles/Vol] 11 mmol/L Normal 5-15 [facility] Comment on above: Performed By: #### L 500.3400, L501.2450 #### [facility] [address] [place], [address] BUN/CRE 10.8 RATIO Normal 10-20 [facility] Comment on above: Performed By: #### L 500.3400, L501.2450 #### [facility] [address] [place], [address] Calcium [Mass/Vol] 9.3 mg/dL Normal 7.6-11.0 [facility] Comment on above: Performed By: #### L 500.3400, L501.2450 #### [facility] [address] [place], [address] Chloride [Moles/Vol] 104 mmol/L Normal 96-108 [facility] Comment on above: Performed By: #### L 500.3400, L501.2450 #### [facility] [address] [place], [address] CO2 [Moles/Vol] 24.5 mmol/L Normal 22.0-29.0 [facility] Comment on above: Performed By: #### L 500.3400, L501.2450 #### [facility] [address] [place], [address] Creatinine [Mass/Vol] 1.1 mg/dL Normal 0.8-1.3 [facility] Comment on above: Performed By: #### L 500.3400, L501.2450 #### [facility] [address] [place], [address] GFR/1.73 sq M.predicted among non-blacks MDRD (S/P/Bld) [Vol rate/Area] 67 mL/min/{1.73_m2} Normal >60 [facility] Comment on above: Result Comment: mL/m in/1.73m2 CKD-EPI Creatinine Equation (2020) Performed By: #### L 500.3400, L501.2450 #### [facility] [address] [place], [address] Glucose [Mass/Vol] 88 mg/dL Normal 70-99 [facility] Comment on above: Performed By: #### L 500.3400, L501.2450 #### [facility] [address] [place], [address] Potassium [Moles/Vol] 4.2 mmol/L Normal 3.3-5.1 [facility] Comment on above: Performed By: #### L 500.3400, L501.2450 #### [facility] [address] [place], [address] Sodium [Moles/Vol] 140 mmol/L Normal 133-145 [facility] Comment on above: Performed By: #### L 500.3400, L501.2450 #### [facility] [address] [place], [address] Urea nitrogen [Mass/Vol] 12 mg/dL Normal 4-19 [facility] Comment on above: Performed By: #### L 500.3400, L501.2450 #### [facility] [address] [place], [address] CBC-Complete Blood Cnt No Di ffon 09-21-2024 Erythrocyte distribution width (RBC) [Ratio] 13.3 % Normal 11.6-14.6 [facility] Comment on above: Performed By: #### L 500.3400, L501.2450 #### [facility] [address] [place], [address] Hematocrit (Bld) [Volume fraction] 46.3 % Normal 40-54 [facility] Comment on above: Performed By: #### L 500.3400, L501.2450 #### [place] [facility] [address] [place], [address] Hemoglobin (Bld) [Mass/Vol] 15.7 g/dL Normal 13.0-16.5 [facility] Comment on above: Performed By: #### L 500.3400, L501.2450 #### [facility] [address] [place], [address] MCH (RBC) [Entitic mass] 31.7 pg Normal 27.0-32.0 [facility] Comment on above: Performed By: #### L 500.3400, [id number] #### [facility] [address] [place], [address] MCHC (RBC) [Mass/Vol] 33.9 g/dL Normal 32-36 [facility] Comment on above: Performed By: #### L 500.3400, L5.2450 #### [facility] [address] [place], [address] MCV (RBC) [Entitic vol] 93.3 fL Normal 80-94 [facility] Comment on above: Performed By: #### L 500.3400, L501.2450 #### [facility] [address] [place], [address] Platelet mean volume (Bld) [Entitic vol] 9.6 fL Normal 6.2-12.0 [facility] Comment on above: Performed By: #### L 500.3400, L501.2450 #### [facility] [address] [place], [address] Platelets (Bld) [#/Vol] 210 10*3/uL Normal 150-450 [facility] Comment on above: Performed By: #### L 500.3400, [id number] #### [facility] [address] [place], [address] RBC (Bld) [#/Vol] 4.96 10*6/uL Normal 4.6-6.2 [facility] Comment on above: Performed By: #### L 500.3400, L501.2450 #### [facility] [address] [place], [address] RDW SD 45.5 fl High 35.1-43.9 [facility] Comment on above: Performed By: #### L 500.3400, L501.2450 #### [facility] [address] [place], [address] WBC (Bld) [#/Vol] 7.5 10*3/uL Normal 4.4-11.0 [facility] Comment on above: Performed By: #### L 500.3400, L501.2450 #### [facility] [address] [place], [address] Creatinine [Moles/Vol]Ordere d By: Faizan Fraga on 09-21-2024 Creatinine [Mass/Vol] 1.1 mg/dL 0.8-1.3 [facility] Erythrocyte distribution wid th ratioOrdered By: Faizan Fraga on 09-21-2024 Erythrocyte distribution width (RBC) [Ratio] 13.3 % 11.6-14.6 [facility] Erythrocyte distribution wid th standard deviationOrdered By: Faizan Fraga on 09-21-2024 Erythrocyte distribution width (RBC) [Entitic vol] 45.5 fL High 35.1-43.9 [facility] Erythrocyte distribution width (RBC) [Ratio] 45.5 fl High 35.1-43.9 [facility] GFR/1.73 sq M.predicted anais g non-blacks MDRD (S/P/Bld) [Vol rate/Area]Ordered By: Faizan Fraga on 09-21-2024 Estimated GFR (MDRD) Non-Af Amer 67 >60 [facility] Comment on above: mL/min/1.73m2 CKD-EP I Creatinine Equation (2020) Glomerular filtration rate ( GFR) estimation/1.73 sq m using serum, plasma, or whole bOrdered By: Faizan Fraga on 09-21-2024 GFR/1.73 sq M.predicted among non-blacks MDRD (S/P/Bld) [Vol rate/Area] 67 mL/min/{1.73_m2} >60 [facility] Comment on above: mL/min/1.73m2 CKD-EP I Creatinine Equation (2020) Hematocrit Auto (Bld) [Volum e fraction]Ordered By: Faizan Fraga on 09-21-2024 Hematocrit (Bld) [Volume fraction] 46.3 % 40-54 [facility] Hemoglobin measurementOrdere d By: Faizan Fraga on 09-21-2024 Hemoglobin (Bld) [Mass/Vol] 15.7 g/dL 13.0-16.5 [facility] MCV (mean corpuscular volume ) determinationOrdered By: Faizan Fraga on 09-21-2024 MCV (RBC) [Entitic vol] 93.3 fL 80-94 [facility] Magnesiumon 09-21-2024 Magnesium [Mass/Vol] 2.3 mg/dL High 1.5-2.2 [facility] Comment on above: Performed By: #### L 500.3400, L501.2450 #### [facility] [address] [place] [address], [address] Magnesium (Unsp spec) [Mass/ Vol]Ordered By: Faizan Fraga on 09-21-2024 Magnesium [Mass/Vol] 2.3 mg/dL High 1.5-2.2 [facility] Magnesium measurement (mass/ volume)Ordered By: Faizan Fraga on 09-21-2024 Magnesium (Unsp spec) [Mass/Vol] 2.3 mg/dL High 1.5-2.2 [facility] Mean corpuscular hemoglobin (MCH) determinationOrdered By: Faizan Fraga on 09-21-2024 MCH (RBC) [Entitic mass] 31.7 pg 27.0-32.0 [facility] Mean corpuscular hemoglobin concentration (MCHC) determinationOrdered By: Faizan Fraga on 09-21-2024 MCHC (RBC) [Mass/Vol] 33.9 g/dL 32-36 [facility] Mean platelet volume determi nationOrdered By: Faizan Fraga on 09-21-2024 Platelet mean volume (Bld) [Entitic vol] 9.6 fL 6.2-12.0 [facility] Platelet countOrdered By: Kirti Fraga on 09-21-2024 Platelets (Bld) [#/Vol] 210 10*3/uL 150-450 [facility] RBC Auto (Bld) [#/Vol]Ordere d By: Faizan Fraga on 09-21-2024 RBC (Bld) [#/Vol] 4.96 10*6/uL 4.6-6.2 [facility] Serum glucose measurement (m ass/volume)Ordered By: Faizan Fraga on 09-21-2024 Glucose [Mass/Vol] 88 mg/dL 70-99 [facility] Serum or plasma anion gap de termination (moles/volume)Ordered By: Faizan Fraga on 09-21-2024 Anion gap [Moles/Vol] 11 mmol/L 5-15 [facility] Serum or plasma calcium cyndi urement (mass/volume)Ordered By: Faizan Fraga on 09-21-2024 Calcium [Mass/Vol] 9.3 mg/dL 7.6-11.0 [facility] Serum or plasma creatinine m easurement (moles/volume)Ordered By: Faizan Fraga on 09-21-2024 Creatinine [Moles/Vol] 1.1 mg/dL 0.8-1.3 [facility] Serum or plasma potassium me asurementOrdered By: Faizan Fraga on 09-21-2024 Potassium [Moles/Vol] 4.2 mmol/L 3.3-5.1 [facility] Serum or plasma sodium measu rement (moles/volume)Ordered By: Faizan Fraga on 09-21-2024 Sodium [Moles/Vol] 140 mmol/L 133-145 [facility] Serum or plasma urea nitroge n measurement (mass/volume)Ordered By: Faizan Fraga on 09-21-2024 Urea nitrogen [Mass/Vol] 12 mg/dL 4-19 [facility] TSH DL <= 0.005 mIU/L QnOrde red By: Faizan Fraga on 09-21-2024 Thyroid Stimulating Hormone (TSH) 2.180 uIU/mL 0.300-4.200 [facility] TSH Qn 2.180 uIU/mL 0.300-4.200 [facility] Thyroid Stim Hormone (TSH)on 09-21-2024 TSH 2.180 uIU/mL Normal 0.300-4.200 [facility] Comment on above: Performed By: #### L 500.3400, L501.2450 #### [facility] [place], [address] White blood cell (WBC) count Ordered By: Faizan Fraga on 09-21-2024 WBC (Bld) [#/Vol] 7.5 10*3/uL 4.4-11.0 [facility] CBC AND ELECTRONIC DIFFon Basophils (Bld) [#/Vol] 0.13 10*3/uL High 0.00 - 0.09 K/uL [facility] Basophils/100 WBC (Bld) 1.8 % [facility] Differential cell count method Nom (Bld) Electronic Differential [facility] Eosinophils (Bld) [#/Vol] 0.23 10*3/uL 0.00 - 0.48 K/uL [facility] Eosinophils/100 WBC (Bld) 3.1 % [facility] Erythrocyte distribution width (RBC) [Ratio] 13.5 % 10.9 - 14.3 % [facility] Hematocrit (Bld) [Volume fraction] 44.7 % 39.6 - 48.8 % [facility] Hemoglobin (Bld) [Mass/Vol] 15.4 g/dL 13.4 - 16.8 g/dL [facility] Immature granulocytes (Bld) [#/Vol] K/uL NINF - 0.07 K/uL [facility] Immature granulocytes/100 WBC (Bld) 0.1 % [facility] Interpretation and review of laboratory results Abnormal [facility] Lymphocytes (Bld) [#/Vol] 1.77 10*3/uL 0.83 - 3.57 K/uL [facility] Lymphocytes/100 WBC (Bld) 24.2 % [facility] MCH (RBC) [Entitic mass] 31.5 pg 26.1 - 33.3 pg [facility] MCHC (RBC) [Mass/Vol] 34.5 g/dL 31.9 - 36.5 g/dL [facility] MCV (RBC) [Entitic vol] 91.4 fL 79.0 - 94.5 fL [facility] Monocytes (Bld) [#/Vol] 0.7 10*3/uL 0.24 - 0.93 K/uL [facility] Monocytes/100 WBC (Bld) 9.6 % [facility] Neutrophils (Bld) [#/Vol] 4.48 10*3/uL 1.57 - 6.19 K/uL [facility] Nucleated RBC/100 WBC (Bld) [Ratio] 0 % NINF [facility] Platelet mean volume (Bld) [Entitic vol] 9.5 fL 8.7 - 12.3 fL [facility] Platelets (Bld) [#/Vol] 203 10*3/uL 146 - 337 K/uL [facility] RBC (Bld) [#/Vol] 4.89 10*6/uL [facility] Segmented neutrophils/100 WBC (Bld) 61.2 % [facility] WBC (Bld) [#/Vol] 7.32 10*3/uL 3.73 - 10. 10 K/uL [facility] Basophils (Bld) [#/Vol] 0.13 10*3/uL High 0.00-0.09 [facility] Comment on above: Performed By: #### C MPN, LDO, FT4, TSH #### [facility] (DEFAULT) [address] [address] Basophils/100 WBC (Bld) 1.8 % Normal O [facility] Comment on above: Performed By: #### C MPN, LDO, FT4, TSH #### [facility] (DEFAULT) [address] [address] DIFF STATUS Electronic Differential Normal [facility] Comment on above: Performed By: #### C MPN, LDO, FT4, TSH #### [facility] (DEFAULT) [address] [place] [address] 10471 Eosinophils (Bld) [#/Vol] 0.23 10*3/uL Normal 0.00-0.48 [facility] Comment on above: Performed By: #### C MPN, LDO, FT4, TSH #### [facility] (DEFAULT) [address] [place] [address]750 Eosinophils/100 WBC (Bld) 3.1 % Normal [facility] Comment on above: Performed By: #### C MPN, LDO, FT4, TSH #### [facility] (DEFAULT) [address] [place] [address] 95328 Hematocrit (Bld) [Volume fraction] 44.7 % Normal 39.6-48.8 [facility] Comment on above: Performed By: #### C MPN, LDO, FT4, TSH #### [facility] (DEFAULT) [address] [place] [address] 13785 Hemoglobin (Bld) [Mass/Vol] 15.4 g/dL Normal 13.4-16.8 [facility] Comment on above: Performed By: #### C MPN, LDO, FT4, TSH #### [facility] (DEFAULT) [address] [place] [address] 02868 Immature Grans % 0.1 % Normal [facility] Comment on above: Performed By: #### C MPN, LDO, FT4, TSH #### [facility] (DEFAULT) [address] [place] [address] 31303 Immature Grans Absolute < Normal <=0.[address] [facility] Comment on above: Performed By: #### C MPN, LDO, FT4, TSH #### [facility] (DEFAULT) [address] [place] [address] 41686 Lymphocytes (Bld) [#/Vol] 1.77 10*3/uL Normal 0.83-3.57 [facility] Comment on above: Performed By: #### C MPN, LDO, FT4, TSH #### [facility] (DEFAULT) [address] [place] [address] 41218 Lymphocytes/100 WBC (Bld) 24.2 % Normal [facility] Comment on above: Performed By: #### C MPN, LDO, FT4, TSH #### [facility] (DEFAULT) [address] [place] [address] 30535 MCV (RBC) [Entitic vol] 91.4 fL Normal 79.0-94.5 [facility] Comment on above: Performed By: #### C MPN, LDO, FT4, TSH #### [facility] (DEFAULT) [address] [place] [address] 66388 Mean Cell Hgb 31.5 pg Normal 26.1-33.3 [facility] Comment on above: Performed By: #### C MPN, LDO, FT4, TSH #### [facility] (DEFAULT) [address] [place] [address] 55754 Mean Cell Hgb Conc 34.5 g/dL Normal 31.9-36.5 [facility] Comment on above: Performed By: #### C MPN, LDO, FT4, TSH #### [facility] (DEFAULT) [address] [place] [address] 47493 Monocytes (Bld) [#/Vol] 0.70 10*3/uL Normal 0.24-0.93 [facility] Comment on above: Performed By: #### C MPN, LDO, FT4, TSH #### [facility] (DEFAULT) [address] [place] [address] 62603 Monocytes/100 WBC (Bld) 9.6 % Normal [facility] Comment on above: Performed By: #### C MPN, LDO, FT4, TSH #### [facility] (DEFAULT) [address] [place] [address] 02284 Nucleated RBC 0.0 /100 WBC Normal <=0.2 [facility] Comment on above: Performed By: #### C MPN, LDO, FT4, TSH #### [facility] (DEFAULT) [address] [place] [address] 80443 Platelet mean volume (Bld) [Entitic vol] 9.5 fL Normal 8.7-12.3 [facility] Comment on above: Performed By: #### C MPN, LDO, FT4, TSH #### [facility] (DEFAULT) [address] [place] [address] 30308 Platelets (Bld) [#/Vol] 203 10*3/uL Normal 146-337 [facility] Comment on above: Performed By: #### C MPN, LDO, FT4, TSH #### [facility] (DEFAULT) [address] [place] [address] 05089 RBC (Bld) [#/Vol] 4.89 10*6/uL Normal 4.38-5.83 [facility] Comment on above: Performed By: #### C MPN, LDO, FT4, TSH #### [facility] (DEFAULT) [address] [place] [address] 64332 RBC Distribution 13.5 % Normal 10.9-14.[address] [facility] Comment on above: Performed By: #### C MPN, LDO, FT4, TSH #### [facility] (DEFAULT) [address] [place] [address] 30282 Segs + Bands Auto 61.2 % Normal [facility] Comment on above: Performed By: #### C MPN, LDO, FT4, TSH #### [facility] (DEFAULT) [address] [place] [address] 77810 Segs + Bands,Absolute Auto 4.48 K/uL Normal 1.57-6.19 [facility] Comment on above: Performed By: #### C MPN, LDO, FT4, TSH #### [facility] (DEFAULT) [address] [place] [address] WBC (Bld) [#/Vol] 7.32 10*3/uL Normal 3.73-10.10 [facility] Comment on above: Performed By: #### C MPN, LDO, FT4, TSH #### [facility] (DEFAULT) [address] [place] [address] COMPREHENSIVE METABOLIC PANE Wilber 09-20-2024 Albumin [Mass/Vol] 4.4 g/dL 3.5 - 5.0 g/dL [facility] ALP [Catalytic activity/Vol] 67 U/L 32 - 126 U/L [facility] ALT [Catalytic activity/Vol] 15 U/L 10 - 52 U/L [facility] Anion gap [Moles/Vol] 11 mmol/L 7 - 17 mmol/L [facility] AST [Catalytic activity/Vol] 14 U/L 10 - 39 U/L [facility] Bilirubin [Mass/Vol] 0.9 mg/dL NINF - 1.5 mg/dL [facility] Calcium [Mass/Vol] 9.5 mg/dL 8.6 - 10. 5 mg/dL [facility] Chloride [Moles/Vol] 103 mmol/L 98 - 10 8 mmol/L [facility] CO2 [Moles/Vol] 27 mmol/L 21 - 31 mmol/L [facility] Creatinine [Mass/Vol] 1.14 mg/dL 0.70 - 1.30 mg/dL [facility] eGFR, CKD-EPI, Male 67 - PINF [facility] Comment on above: Reported eGFR is bas ed on the CKD-EPI 2020 equation using creatinine, age, and sex. Glucose [Mass/Vol] 127 mg/dL High 70 - 99 mg/dL [facility] Interpretation and review of laboratory results Abnormal [facility] Osmolality Calc [Osmolality] 288 [facility] Potassium [Moles/Vol] 4.1 mmol/L 3.5 - 5.0 mmol/L [facility] Protein [Mass/Vol] 6.8 g/dL 6.4 - 8.3 g/dL [facility] Sodium [Moles/Vol] 137 mmol/L 135 - 145 mmol/L [facility] Urea nitrogen [Mass/Vol] 11 mg/dL 7 - 25 mg/dL [facility] Urea nitrogen/Creatinine [Mass ratio] 10 mg/mg [facility] Albumin [Mass/Vol] 4.4 g/dL Normal 3.5-5.0 [facility] Comment on above: Performed By: #### C MPN, LDO, FT4, TSH #### [facility] (DEFAULT) [address] [place] [address] 27568 ALP [Catalytic activity/Vol] 67 U/L Normal 32-126 [facility] Comment on above: Performed By: #### C MPN, LDO, FT4, TSH #### [facility] (DEFAULT) [address] [place] [address] 43454 ALT [Catalytic activity/Vol] 15 U/L Normal 10-52 [facility] Comment on above: Performed By: #### C MPN, LDO, FT4, TSH #### [facility] (DEFAULT) [address] [place] [address] 79450 Anion gap [Moles/Vol] 11 mmol/L Normal 7-17 [facility] Comment on above: Performed By: #### C MPN, LDO, FT4, TSH #### [facility] (DEFAULT) [address] [place] [address] 83999 AST [Catalytic activity/Vol] 14 U/L Normal 10-39 [facility] Comment on above: Performed By: #### C MPN, LDO, FT4, TSH #### [facility] (DEFAULT) [address] [place] [address] 15295 Bilirubin [Mass/Vol] 0.9 mg/dL Normal <1.5 [facility] Comment on above: Performed By: #### C MPN, LDO, FT4, TSH #### [facility] (DEFAULT) [address] [place] [address] 93106 Calcium [Mass/Vol] 9.5 mg/dL Normal 8.6-10.5 [facility] Comment on above: Performed By: #### C MPN, LDO, FT4, TSH #### [facility] (DEFAULT) [address] [place] [address] 23305 Chloride [Moles/Vol] 103 mmol/L Normal 98-108 [facility] Comment on above: Performed By: #### C MPN, LDO, FT4, TSH #### [facility] (DEFAULT) [address] [place] [address] 19573 CO2 [Moles/Vol] 27 mmol/L Normal 21-31 [facility] Comment on above: Performed By: #### C MPN, LDO, FT4, TSH #### [facility] (DEFAULT) [address] [place] [address] 76353 Creatinine [Mass/Vol] 1.14 mg/dL Normal 0.70-1.30 [facility] Comment on above: Performed By: #### C MPN, LDO, FT4, TSH #### [facility] (DEFAULT) [address] [place] [address] 94053 GFR/1.73 sq M.predicted among non-blacks MDRD (S/P/Bld) [Vol rate/Area] 66 mL/min/{1.73_m2} Normal >=60 [facility] Comment on above: Result Comment: Repo rted eGFR is based on the CKD-EPI 2020 equation using creatinine, age, and sex. Performed By: #### C MPN, LDO, FT4, TSH #### [facility] (DEFAULT) [address] [place] [address] 27056 Glucose [Mass/Vol] 127 mg/dL High 70-99 [facility] Comment on above: Performed By: #### C MPN, LDO, FT4, TSH #### [facility] (DEFAULT) [address] [place] [address] 25278 Osmolality [Osmolality] 288 mosm/kg Normal 278-305 [facility] Comment on above: Performed By: #### C MPN, LDO, FT4, TSH #### [facility] (DEFAULT) [address] [place] [address] 94694 Potassium [Moles/Vol] 4.1 mmol/L Normal 3.5-5.0 [facility] Comment on above: Performed By: #### C MPN, LDO, FT4, TSH #### [facility] (DEFAULT) [address] [place] [address] 09003 Protein [Mass/Vol] 6.8 g/dL Normal 6.4-8.3 [facility] Comment on above: Performed By: #### C MPN, LDO, FT4, TSH #### [facility] (DEFAULT) [address] [place] [address] 35274 Sodium [Moles/Vol] 137 mmol/L Normal 135-145 [facility] Comment on above: Performed By: #### C MPN, LDO, FT4, TSH #### [facility] (DEFAULT) [address] [place] [address] 86141 Urea nitrogen [Mass/Vol] 11 mg/dL Normal 7-25 [facility] Comment on above: Performed By: #### C MPN, LDO, FT4, TSH #### [facility] (DEFAULT) [address] [place] [address] 94631 Urea nitrogen/Creatinine [Mass ratio] 10 mg/mg Normal [facility] Comment on above: Performed By: #### C MPN, LDO, FT4, TSH #### [facility] (DEFAULT) [address] [place] [address] 03145 LACTATE DEHYDROGENASEon 08-29 Interpretation and review of laboratory results Normal [facility] LDH Lactate to pyruvate reaction [Catalytic activity/Vol] 184 U/L 100 - 190 U/L [facility] LD Total 184 U/L Normal 100-190 [facility] Comment on above: Performed By: #### C MPN, LDO, FT4, TSH #### [facility] (DEFAULT) [address] [place] [address] No Panel Informationon 09-20 [facility] T4 FREEon 09-20-2024 Free T4 [Mass/Vol] 1.39 ng/dL 0.89 - 1. 76 ng/dL [facility] Interpretation and review of laboratory results Normal [facility] Free T4 [Mass/Vol] 1.39 ng/dL Normal 0.89-1.76 [facility] Comment on above: Performed By: #### C MPN, LDO, FT4, TSH #### [facility] (DEFAULT) [address] [place] [address] TSHon 09-20-2024 Interpretation and review of laboratory results Normal [facility] TSH Qn 2.764 m[IU]/L [facility] TSH 2.764 uIU/mL Normal 0.550-4.780 [facility] Comment on above: Performed By: #### C MPN, LDO, FT4, TSH #### [facility] (DEFAULT) [address] [place] [address] SURG PATH REQUESTOrdered By: Quincy Brannon on 09-15-2024 Case Report Surgical Pathology Report Case: [id number] Authorizing Provider: Mateo Mascorro MD Collected: 09/14/2024 12:37 PM Ordering Location: [facility] Received: 09/14/2024 04:23 PM Hospital Pathologist: Quincy Brannon MD Specimen: Lung bx [facility] Work Phone: Clinical History h3bflQFcKFNbnECwRJAm NVx yowGsKOLydBOqM1VtmdarDZ oySQ7dSV6wtIvuqUWecVUtU FBwVkXjs6rnj664mHYtg1sq DOZFhjhqtZw0bIyyO25sv8Q 2JuywP4xaQZDgGFieTRNbOP ixhELxQGn9CVWilBIarnEuR tUqOOEjzAVedQQ3QYAjKY6w hujdKHvuHXyeSIXxpzF5LGX ngQIeW1EqPOLgYA3qbuzlQI I4DFjrJNQaXRG1WvPcFVFyi 1Kuzds3FnIytHr9l5alOOYt PMWruVmvx4jkIUU8CZRaqSD fW2wukH5jDDCuWT2ccxrde2 lbSTadKJnwVIJasHI2xaG1W IEygIAaL8IblF9aFBIyGNNc scHctDmnuT6jXfMfWIjiFiI bFECdp4DwOsJIYOErJI8ipi YdqLTqCG5vHYAggvOllVKkM 2RqmRqiTYFwaiLfb5L1nUGf KOUlGK4rVYNmBAhov6Ahpge xMCTvPcTju3A1pEGqS1V3YB 5rDL8tPLQixa7= [facility] Work Phone: For Immediate Release to Patient's MyChart? Yes Yes [facility] Work Phone: Gross Description y4tovXTtLOBsw0jnNDVx bGF uZzEwMzNcZnRuYmpcdWMxIH tccnRmMVxlcGljMTExMDVcY V9yuNyamUh2eVjaQEPpuyK1 xBFfBBsae9xuZKN1o3pynla hWEIbGUxkUe8meAWymYvlNk WgLXScYBj3bA18RXTzxZ4vs YRfJUqvvtHeJXPxN5OiIL8l ALiupIEpFLZ8oMukUCWjwnf cKaF8ZYobZIBdsjhsEQd6UV jfHRNssHI8IEQbbIOiM5GuV IVkSV0jjfd2FHJ7GRxfEIIt TeB5OUGjpUXlCXIpwYcgELg jm340WGR5XdQeWGFxqbUhoF ircN7bJwWoESXJnCSpq2NwV 9tuDV7ebTPrlxVuQUm3RCCn wO0yb28aGIIwl3Gisee1QHg oYsTkFTIaF11smZOrfrAsOQ dpdGggdGhlIHBhdGllbnQnc hYqAS7nDNMnQXUlV3Gwu8Ak d06ykdQoRcZmInJusIGhUPG btssnSoXiTAbfOzUzOtt1PZ IgVGhlIHNwZWNpbWVuIGlzI XWsq5xviiZ5OIStOoYXJMKy h6Y9tYYiWXMyOTOlw26raNT 0ueXsMrHcWAMrVCE3KYHaGH M4ZJIrGkEekZIrI6vaJRntk NOkd2AyujIyUCEcap78rrTt zU9fHSZagP05YeYKOOAtCJJ hclxwYXIgTGFiIFVzZSBPbm t6CkXCc5EZQGFvKCBhBmH9U GBecs49DTQ7SuGxb6O8GVIi IoFjQVGtQR3usUeoLPUpWL3 wFOQqN8jzqE0eapc1XmQfZC GfBnT0DCVlwzK1Xql2LRNjL Gyri3vgt7AkLBCwUZm7aDmh MaLrLUReg9fygvRfKdDtNVB nWPGyOMAufRGnY938v0zhh7 xtpqXrnKR8HKEwJPK4ELcng yOumjK1BTsseQYwWwO3HDbb xqEeQJydxkIxukMxKjb5AOM xG015TPJ2bSxcp6orBTE0YM JbEYXhObSqPi7znAQdK195Y XTyOQLZUAMloPi2KVSpqzJm isVjcZZLl675B922v7ejJQQ xbtTayRsXwcpok7sbM198NA BhcGVydzEyMjQwXHBhcGVya MH2FICsIC5fxgjsJPtfRKoh OMUfuyY9LDQzmRGoH9YmGHD zZK9kgchwWNC5QJbwWIGsVY V5AqYnJXRxe6Fertg8QxBlb a2arf63LWS2g4JvwIpyBWU8 FXL5IsQuQv7lkWKoYQRgSE1 hEtZfpQPuBDHfiv24rRvnYZ pfsoHdeD0aAjHiJUIveMJkU HVbVM4wbXPhRFXziI4odoaa XHBnYnJkcmhlYWRccGdicmR gNz1jyCgaNOJ2TOqkJ1swxX 0bUoL1JGxhS5txfW7jETu9C BnsoZT6QSGwtF1gZJ4bxbhu r2zfXWphZTvgCQWjofI0aeZ 9DYApmEDtS1NmvK3kDGJlIP 5brogcv1krWES4IPzwIKVzK OB4OxGsTCWxz4Kaypw1AqXm e4XhyYMyIBshP89an436WNK bzdHiY9xgvBMtvrghcVDgpv jqTFniqhX5IATlOHXuCRobL GYxXGZzMjJcbGFuZzEwMzNc aGljaFxmMVxkYmNoXGYxXGx cA0egTmIfQtUqDnUTyu9aw7 NxYNUbgkN5fAjtEJZjn6Koj 2FzOiBQYWlnZSBaZWxsbmVy UYZpou91 [facility] Work Phone: Images [facility] Work Phone: Microscopic Description o7gwgHCoWZNfvLWg ZjIyMDA fKJGud8lcYXFsvHVgXhKqDf NcZnRuYmpcdWMxXGRlZmYwe 3ypo141dOWbf0mdUDBtWoN8 zPAwWHInoGKxR026TAXySBu ra0vik7DgRWSmuJQfz7P1SN GUnqfwiCz3eDgjC64bz7I1H tdzC5jgKFOwTDSrW7XeCS3m QQEqMpu0XFU4DDX9YOFqSTA uA7RqOD3jEPIqmPIrBGm3b6 aspUbaFDGyECM8w7pcPEket sVqVC4sdy0kkBo5u4rahuAy JEBkDLLuwZRBRRGiA9QjtJf mBj6inHd6gBskPgwcRPG5Vk e7OX9lgk18nyy4sBejFPLkf adjWoN9SDztQOCfywyeOZu8 HNhzVRKahYR6URHyjHUvR3M dYZQaUU8shid3LLZ6NGlyML LiHnA8NCDisKVgMHDaqEjdQ Twtk542ZTE6MmUwWR4mE7Uv b9W6qO5tdEAuAETudHDqBxI sRJPkyk7ctTEcFTzyq6JsKP H0dtU1bUGykZQqGNIlCC21J qrxc6AlVeioIRD5PECecfZp p6Iqm4vdVgMfctLgW9nfG4Y yZHJoZWFkXHBnYnJkcmZvb3 Twy5ExuOVpaCl2d3itNDXvY SLrgZmxl6vtTMJ7DXEnQ8L9 iSAyy5ssKOgkMHPajUP4aqP 2SINkfHDgW9XmiI7kSNYzVW 2kggl3s8qaILU7RGpuKLEhZ uF4vuH0WVXpjIXyLJHqbFxk MJuyx511YZJ1ZpCgFKEgr2T iA0TcbSjsA39mdDceZ72vDT EpbThmdV8llYkxvA8iPfTxM nMyNFxxbFxwbGFpblxmMVxm jhZhQVcyelfbIKPcFAliS2c bTqNqDIZylKllJQqxi4NjME WbOBKuJnAhPECavOErd5Roc 8GhNlWuyDLhyR1ixUvmorW5 YKHawTVwWg0odPWqGjEbjBV yfQ== [facility] Work Phone: Pathologic Diagnosis o6ckvPMmCNAbmPYlPNI wNVx tbmKuGRSneSRjF9MaytpiCA wmIW7mHS4fbNqgyNSknZTwY LPqCrHnp3moz130gMSme8fy ZVCPldqxaId8s1izPCQBxA3 ed8q8eL83FPZelZ2avIBgNB qeegOkJIyhfsGtctInYae3K PM8tNjwJamliYM3qIMunBR3 ELuij0GtqEesqQgeHRh6VQL rHLCnAEuzx3Y5PO0hsWD7PN lzDTA0ODrfl4XiYD8qQQt8Y Wafk5RgzJEfeNC1MUyth8Qm RVNqcHzyTXFgjE5pVvSqIZu ldmVsbmZjbjIzXGxldmVsam IyGXrwpxQry4QynmYhaRB2O MivmiExxXQ3fHruHKUoK9S1 D179YMscjsLpbpJsLdMpqnr 9XGYxXGZzMjBcbGkzNjBcZm fnQBV4a9pmtPW0yEG2ZDjcv HV2BYtlXuWuO1leCJUqmN4j V95uX6izQPCjuDfhTRujHOL uhAE1MFK0TLGwy4zaFMXhfS IctUJnBuUdXJskLgn2b5snH OAtuG13nNIwdeJ4iWsvQHok czIwfXtcbGlzdGxldmVsXGx pwyDmgoFaNhQfbBD6NBcwZj QiKmJpiJA1LCpxGnHtxXN2I UcpcEJvoVA9WShgjRJ0VDj6 FKl6RLdcYAasOxi8hEvioBQ 6CUvyeZ2uBERyJ30cEiOyEl DaPL60LWcvp9JgGDHusUlgA UIwgS1uJzDmNHgosoMtfdWl bjIzXGxldmVsamMwXGxldmV vi1KywlAdcJL3ASywrdNihD Z5nUgvYHDeF4F5D309KSekf bUzfhYcYgEltff5CXZbZNPy RcS7z7wodYF9yCT2QTsqpQL 3NIzbClLhD3qgXESmjE1uQ1 4oU6ybQEAvnUndNZnfVFYtt MF2PAK1TWXiq0jzGIQplVKm gZWgJaOgYRciLuu5n4lkMMP ypG70yQBgrhD1mHqjJIdpsa IwfXtcbGlzdGxldmVsXGxld vItekQkDlLehDT6ONihRyYu MuPbiCN2ARpwTnBqfYT4ZRp lkNPujGT0LPoidBW2LFk8YC w4DRkiCPwdLsx7wCenrSL8U IfnrR5pLKMmF52oTeJmUgLt IF44WUmmk7ZwOKUyzQrpRMB vjW1lBtCvWMiuceDajcYyoe IzXGxldmVsamMwXGxldmVsc 8PnetQfeIO5XKrpclNziKP9 hHseFJPhO2G1G945DNpufbN pnqNzToWxqjs2OUNnERJfFi V2a3vpwOW3xDQ7UHahiFW1V WuyGgCmO2uvLQCtkD5uL81o U1xeYEFsqCfsFTdnZEAtzUW 0PHU2CFXjm6ftEZSpjFAxqH NcAjFlOIhkLyd0g9gbZXZkb F12rTZfepU3uVqtGXcthfXz fXtcbGlzdGxldmVsXGxldmV ontFjYrLjzCC1KDemLnJcOy NfdUJ6RYszSnXmrKI6WDuke RCcgFX9WFhkbCY4DLf5RMx0 VMrhWEwqLfc6lXcxhOE3UWs jcC9pVIFaO10mLrPwMsIsRX 83aWnxMvxoyTB2c9KnduGyD KE7RLNbNWeqCcmyxTC3a2Ge whDbCPFzcEihaIqyDMc7KQV lPIGoSNyvr5RvthZqvqsyHD ZfsL10BXvbspX8dZanMNFao tznRvW3RUvdIKQqtlluSTb4 LTudSJMowMZ1XZCanTVmT4X sYCRzGK3ffrd3GUF6BRkiMO QuOaO3GTQwiZNqJCIgqYohD Qcpd599WAM7UcRaGPVbszQl gCfspJ0xMpmqmcLkTSPpADJ RWiBJfA9cPUMpkQlskPGem1 ckimJxm0YoXJZbn3A1eUEkS QLly1MbvLosjMJuPCpbWyWj XMNvHYmiJFgnpqY1QRdudhL thLy7vPCdmGgmaH0oXrltja IwXGNmMSBGcmFnbWVudCBvZ xRePV9qS84fmBYnBtY2bEEu wEViGKYuqZpdXUB9mKIkXCF ac39yTVGwu1CgQGArak4= [facility] Work Phone: Professional Interpretation Performed at: c1ylmRGvNFMjbVEaTdMdZEZ mULLnd3srLIZkaMKqXyLvYr NcZnRuYmpcdWMxXGRlZmYwe 4lfl666cDSxd5qdQNDdEcJ2 iXGxEBKjvKNsC901CGHdOYu fg1ihk5JrGDQooKEki7T8XC IMxdsikPl0tKwvF29cq5B5U yvnT1agEPExGQDbK3CwFE1r PZFhWqv0RYQ6XXB8BOKjBSE uF1XgAJ4zIAPlhFWjMPw0j8 vywZtrEFDbJVM2w4kkNKzqx rSiQW2nvf8pvFt7g0egrvVa VYYrZRLwnOFYYRKjG8MwuTa gPw4qrUc2jMfwYwejUKV4Rk y1ZC1ytj82wor0eLhaSTEdn uugRxQ1USxmKIIuxdyzLQi0 WYcdEAIduUV6CKHopZWwD7M iHLIwCT8yygc8GMR4NXwcVY DlImT3ULOxwQJlMBQsjGtiC Wozq381ROA5BoQnZO1fI3Yq y1U5xL9obYSeGDXvoANpHzR dKMXtgf7ozTPkZWjpu8ZgQX V5yzF1iNIxjJQxCUMbHJ56F kcwg5NxIyrwNAW3ZEZmjbAn u0Onf3fdYrFpuzRpC3nxC1B yZHJoZWFkXHBnYnJkcmZvb3 Cpr4HsgUIouVd0n2vpPWMyZ OSwaYtfa5uqXQK4GTUvL9R0 wMAvf2bxYTfhEJFklIU2feX 0EWTqtHFaZ8RraD9lYOMtZO 9owke8z8boCJL2UZxxMGBnO cP2vzB7AAUdxCLdGUZqaVau KGald645FXH5RsElKKMjf6L yJ5YxgYlhL73qkTkvV29eZD FpkUnhoI5vpYcnoG5aDyNxA nMyNFxwYXJkXHBsYWluXGYx XGZzMjJcbGFuZzEwMzNcaGl jaFxmMVxkYmNoXGYxXGxvY2 kgIcYeBdYzRuAPX1MnL9VEQ qRUMY1OTZcVBHbwC6DLQCUF JSDHBI2TG8WYSDaYQd7AQGV EHtrigXZgJKOlEMQETMU8EF QacZkpRBSgGSAanoPLy8w5o BA9stuzY5edluM2SjHxXIwc YXJ9 [facility] Work Phone: [facility] Work Phone: ACID FAST CULTUREon 09-14-19 25 Bacteria identified Cx Nom (Unsp spec) NO GROWTH DAY 42 OF 42 Normal [facility] Comment on above: Performed By: #### F T4, CMPN, TSH, LDO #### [facility] (DEFAULT) [address] [place] [address] 64164 Fluorochrome Stain No acid Fast Bacillu s Seen Normal [facility] Comment on above: Performed By: #### F T4, CMPN, TSH, LDO #### [facility] (DEFAULT) [address] [place] [address] 21074 CYTOLOGY, NON-GYNon 09-14-19 25 Clinical History Prior NSCLC, ? recurrence in sub-centimeter nodule. Normal [facility] Comment on above: Performed By: #### F T4, CMPN, TSH, LDO #### [facility] (DEFAULT) [address] [place] [address] 90789 CYTOLOGY, NON-STUDENT FINANCIAL SERVICES COUNSELOR - FNA ONLY on 09-14-2024 CYTOLOGIC DIAGNOSIS [facility] Comment on above: Result Comment: A. L GIANNA NODULE, RIGHT LOWER LOBE, FNA (CYTOLOGY AND CELL BLOCK): FINAL DIAGNOSIS: Non-Diagnostic Material- Correlate With Surgical Biopsy Immediate Study: Adequacy/Preliminary Diagnosis: Not Adequate JULIA Savage (ASCP), September 14, 2024 FNA Performed By: Clinician at 1357 EST Performed By: #### C MPN, LDO, FT4, TSH #### [facility] (DEFAULT) [address] [place] [address] 80687 Result Comment: A. B RONCHIAL BRUSHING, RIGHT UPPER LOBE (CYTOLOGY): FINAL DIAGNOSIS: No Malignant Cells Are Identified Hypocellular Specimen at 1405 EST Performed By: #### F T4, CMPN, TSH, LDO #### [facility] (DEFAULT) [address] [place] [address] 42239 Clinical History 79 year old male wit h history of smoking. 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 Now with suspicious lung nodule Normal [facility] Comment on above: Performed By: #### C MPN, LDO, FT4, TSH #### [facility] (DEFAULT) [address] [place] [address] 40499 FUNGUS CULTUREon 09-14-2024 Bacteria identified Cx Nom (Unsp spec) NO GROWTH DAY 28 OF 28 Normal [facility] Comment on above: Performed By: #### F T4, CMPN, TSH, LDO #### [facility] (DEFAULT) [address] [place] [address] 91785 LOWER RESPIRATORY CULTURE, B ACTERIALon 09-14-2024 Bacteria identified Cx Nom (Unsp spec) NO GROWTH DAY 2 OF 2 Normal [facility] Comment on above: Performed By: #### C MPN, LDO, FT4, TSH #### [facility] (DEFAULT) [address] [place] [address] 57043 Microscopic observation Gram stain Nom (Unsp spec) Normal [facility] Comment on above: Result Comment: Cyto centrifuge preparation Neutrophils, Rare No organisms seen Performed By: #### C MPN, LDO, FT4, TSH #### [facility] (DEFAULT) [address] [place] [address] Portable XR Chest Viewson EXAM: XR CHEST 1 VIE W PORTABLE, 09/14/2024 13:00 PM COMPARISON: 06/17/2023 CLINICAL INDICATIONS: prior NSCLC, ? recurrence in sub-centimeter nodule biopsy RELEVANT CLINICAL HISTORY: R91.1:Lung nodule FINDINGS: (Adequate technique) Progressive bibasilar atelectasis and adjacent new patchy airspace opacities. No other change. RADIOLOGY Tawny Pollack MD - 09/14/2024 EXAM: XR CHEST 1 VIEW PORTABLE, 09/14/2024 13:00 PM COMPARISON: 06/17/2023 CLINICAL INDICATIONS: prior NSCLC, ? recurrence in sub-centimeter nodule biopsy RELEVANT CLINICAL HISTORY: R91.1:Lung nodule FINDINGS: (Adequate technique) Progressive bibasilar atelectasis and adjacent new patchy airspace opacities. No other change. IMPRESSION IMPRESSION: Progressive bibasilar atelectasis and adjacent new patchy airspace opacities. [facility] Radiology Study observation (narrative) [facility] Portable XR Chest ViewsOrder ed By: Tawny Pollack on 09-14-2024 [facility] Work Phone: SURG PATH REQUESTon 09-14-19 Case Report Normal [facility] Comment on above: Result Comment: Surg ical Pathology Report Case: [id number] Authorizing Provider: Mateo Mascorro MD Collected: 09/14/2024 12:37 PM Ordering Location: [facility] Received: 09/14/2024 04:23 PM Hospital Pathologist: Quincy Brannon MD Specimen: Lung bx Performed By: #### C MPN, LDO, FT4, TSH #### [facility] (DEFAULT) [address] [place] [address] Result Comment: [facility] Cytology Report Case: [id number] Authorizing Provider: Mateo Mascorro MD Collected: 09/14/2024 12:37 PM Ordering Location: [facility] Received: 09/14/2024 12:55 PM Hospital Pathologist: Gary Doll MD Specimen: LUNG FNA, RLL Lung Nodule Result Comment: [facility] Cytology Report Case: [id number] Authorizing Provider: Mateo Mascorro MD Collected: 09/14/2024 12:37 PM Ordering Location: [facility] Received: 09/14/2024 07:23 PM Hospital Pathologist: Gary Doll MD Specimen: BRONCHIAL BRUSHING, RUL Brushing Performed By: #### F T4, CMPN, TSH, LDO #### [facility] (DEFAULT) [address] [address] Clinical History Prior NSCLC, ? recurrence in sub-centimeter nodule. Preop Diagnoses: Lung nodule [R91.1]. [facility] Comment on above: Performed By: #### C MPN, LDO, FT4, TSH #### [facility] (DEFAULT) [address] [address] Gross Description [facility] Comment on above: Result Comment: The specimen is received in one properly labeled container with the patient's name and accession number. A. The specimen is designated RLL nodule and consists of a 0.4 x 0.4 x 0.3 cm aggregate of red, brown blood clot. TE 1 Lab Use Only: JobID [id number] Grosser for this case was: Melonie Jacobson Performed By: #### C MPN, LDO, FT4, TSH #### [facility] (DEFAULT) [address] [address] Result Comment: RLL- Lung Nodule-FNA 7.5mls hazy pink fluid in RPMI 3 Slides DQ Stain 3 Slides Pap Stain 1 CB Time specimen placed in formalin: 09/14/24 at 13:17 Time specimen removed from formalin: 09/14/24 at 19:43 Total Fixation Time: 6 hours 26 minutes Result Comment: RUL Brushing 8 ml hazy pink fld unfixed w/ brush 1 TP slide pap stain Performed By: #### F T4, CMPN, TSH, LDO #### [facility] (DEFAULT) [address] [address] Microscopic Description A microscopic examination was performed. [facility] Comment on above: Performed By: #### C MPN, LDO, FT4, TSH #### [facility] (DEFAULT) [address] [address] Pathologic Diagnosis [facility] Comment on above: Result Comment: A. Eva gianna, right lower lobe, nodule, biopsy: Fragment of benign lung tissue admixed with blood clot. at 0844 EST Performed By: #### C MPN, LDO, FT4, TSH #### [facility] (DEFAULT) [address] [place] [id number] Professional Interpretation Performed at: Normal [facility] Comment on above: Result Comment: [facility] For Immediate Release to Patient's MyChart? Yes [address] [address] Performed By: #### C MPN, LDO, FT4, TSH #### [facility] (DEFAULT) [address] [address] Result Comment: For Immediate Release to Patient's MyChart? Yes [facility] [address] [address] Performed By: #### F T4, CMPN, TSH, LDO #### [facility] (DEFAULT) [address] [place] [address] XR CHEST 1 VIEW PORTABLEon 0 09-14-2024 XR CHEST 1 VIEW PORTABLE EXAM: XR CHEST 1 VIEW PORTABLE, 09/14/2024 13:00 PM COMPARISON: 06/17/2023 CLINICAL INDICATIONS: prior NSCLC, ? recurrence in sub-centimeter nodule biopsy RELEVANT CLINICAL HISTORY: R91.1:Lung nodule FINDINGS: (Adequate technique) Progressive bibasilar atelectasis and adjacent new patchy airspace opacities. No other change. IMPRESSION: Progressive bibasilar atelectasis and adjacent new patchy airspace opacities. Normal [facility] CBC AND ELECTRONIC DIFFon Basophils (Bld) [#/Vol] 0.15 10*3/uL High 0.00 - 0.09 K/uL [facility] Basophils/100 WBC (Bld) 1.9 % [facility] Differential cell count method Nom (Bld) Electronic Differential [facility] Eosinophils (Bld) [#/Vol] 0.25 10*3/uL 0.00 - 0.48 K/uL [facility] Eosinophils/100 WBC (Bld) 3.2 % [facility] Erythrocyte distribution width (RBC) [Ratio] 13.2 % 10.9 - 14.3 % [facility] Hematocrit (Bld) [Volume fraction] 43.9 % 39.6 - 48.8 % [facility] [facility] Hemoglobin (Bld) [Mass/Vol] 15.0 g/dL 13.4 - 16.8 g/dL [facility] Immature granulocytes (Bld) [#/Vol] K/uL NINF - 0.07 K/uL [facility] Immature granulocytes/100 WBC (Bld) 0.4 % [facility] Interpretation and review of laboratory results Abnormal [facility] Lymphocytes (Bld) [#/Vol] 1.58 10*3/uL 0.83 - 3.57 K/uL [facility] Lymphocytes/100 WBC (Bld) 20.4 % [facility] MCH (RBC) [Entitic mass] 30.8 pg 26.1 - 33.3 pg [facility] MCHC (RBC) [Mass/Vol] 34.2 g/dL 31.9 - 36.5 g/dL [facility] MCV (RBC) [Entitic vol] 90.1 fL 79.0 - 94.5 fL [facility] Monocytes (Bld) [#/Vol] 0.75 10*3/uL 0.24 - 0.93 K/uL [facility] Monocytes/100 WBC (Bld) 9.7 % [facility] Neutrophils (Bld) [#/Vol] 5.00 10*3/uL 1.57 - 6.19 K/uL [facility] Nucleated RBC/100 WBC (Bld) [Ratio] 0.0 % [facility] Platelet mean volume (Bld) [Entitic vol] 9.6 fL 8.7 - 12.3 fL [facility] Platelets (Bld) [#/Vol] 266 10*3/uL 146 - 337 K/uL [facility] RBC (Bld) [#/Vol] 4.87 10*6/uL [facility] Segmented neutrophils/100 WBC (Bld) 64.4 % [facility] WBC (Bld) [#/Vol] 7.76 10*3/uL 3.73 - 10. 10 K/uL [facility] Basophils (Bld) [#/Vol] 0.15 10*3/uL High 0.00-0.09 [facility] Comment on above: Performed By: #### C MPN, LDO, FT4, TSH #### [facility] (DEFAULT) [address] [place] [address] 63892 Basophils/100 WBC (Bld) 1.9 % Normal O [facility] Comment on above: Performed By: #### C MPN, LDO, FT4, TSH #### [facility] (DEFAULT) [address] [place] [address] 03734 DIFF STATUS Electronic Differential Normal [facility] Comment on above: Performed By: #### C MPN, LDO, FT4, TSH #### [facility] (DEFAULT) [address] [place] [address] 28424 Eosinophils (Bld) [#/Vol] 0.25 10*3/uL Normal 0.00-0.48 [facility] Comment on above: Performed By: #### C MPN, LDO, FT4, TSH #### [facility] (DEFAULT) [address] [place] [address] 87826 Eosinophils/100 WBC (Bld) 3.2 % Normal [facility] Comment on above: Performed By: #### C MPN, LDO, FT4, TSH #### [facility] (DEFAULT) [address] [place] [address] 52147 Hematocrit (Bld) [Volume fraction] 43.9 % Normal 39.6-48.8 [facility] Comment on above: Performed By: #### C MPN, LDO, FT4, TSH #### [facility] (DEFAULT) [address] [place] [address] 50592 Hemoglobin (Bld) [Mass/Vol] 15.0 g/dL Normal 13.4-16.8 [facility] Comment on above: Performed By: #### C MPN, LDO, FT4, TSH #### [facility] (DEFAULT) [address] [place] [address] 02509 Immature Grans % 0.4 % Normal [facility] Comment on above: Performed By: #### C MPN, LDO, FT4, TSH #### [facility] (DEFAULT) [address] [place] [address] 56874 Immature Grans Absolute < Normal <=0.[address] [facility] Comment on above: Performed By: #### C MPN, LDO, FT4, TSH #### [facility] (DEFAULT) [address] [place] [address] 07768 Lymphocytes (Bld) [#/Vol] 1.58 10*3/uL Normal 0.83-3.57 [facility] Comment on above: Performed By: #### C MPN, LDO, FT4, TSH #### [facility] (DEFAULT) [address] [place] [address] 02907 Lymphocytes/100 WBC (Bld) 20.4 % Normal [facility] Comment on above: Performed By: #### C MPN, LDO, FT4, TSH #### [facility] (DEFAULT) [address] [place] [address] 59764 MCV (RBC) [Entitic vol] 90.1 fL Normal 79.0-94.[address] [facility] Comment on above: Performed By: #### C MPN, LDO, FT4, TSH #### [facility] (DEFAULT) [address] [place] [address] 45727 Mean Cell Hgb 30.8 pg Normal 26.1-33.3 [facility] Comment on above: Performed By: #### C MPN, LDO, FT4, TSH #### [facility] (DEFAULT) [address] [place] [address] 84949 Mean Cell Hgb Conc 34.2 g/dL Normal 31.9-36.5 [facility] Comment on above: Performed By: #### C MPN, LDO, FT4, TSH #### [facility] (DEFAULT) [address] [place] [address] 78651 Monocytes (Bld) [#/Vol] 0.75 10*3/uL Normal 0.24-0.93 [facility] Comment on above: Performed By: #### C MPN, LDO, FT4, TSH #### [facility] (DEFAULT) [address] [place] [address] 64236 Monocytes/100 WBC (Bld) 9.7 % Normal O [facility] Comment on above: Performed By: #### C MPN, LDO, FT4, TSH #### [facility] (DEFAULT) [address] [place] [address] 10553 Nucleated RBC 0.0 /100 WBC Normal <=0.2 [facility] Comment on above: Performed By: #### C MPN, LDO, FT4, TSH #### [facility] (DEFAULT) [address] [place] [address] 34701 Platelet mean volume (Bld) [Entitic vol] 9.6 fL Normal 8.7-12.3 [facility] Comment on above: Performed By: #### C MPN, LDO, FT4, TSH #### [facility] (DEFAULT) [address] [place] [address] 42639 Platelets (Bld) [#/Vol] 266 10*3/uL Normal 146-337 [facility] Comment on above: Performed By: #### C MPN, LDO, FT4, TSH #### [facility] (DEFAULT) [address] [place] [address] 87160 RBC (Bld) [#/Vol] 4.87 10*6/uL Normal 4.38-5.83 [facility] Comment on above: Performed By: #### C MPN, LDO, FT4, TSH #### [facility] (DEFAULT) [address] [place] [address] 16924 RBC Distribution 13.2 % Normal 10.9-14.[address] [facility] Comment on above: Performed By: #### C MPN, LDO, FT4, TSH #### [facility] (DEFAULT) [address] [place] [address] 63981 Segs + Bands Auto 64.4 % Normal [facility] Comment on above: Performed By: #### C MPN, LDO, FT4, TSH #### [facility] (DEFAULT) [address] [place] [address] 71960 Segs + Bands,Absolute Auto 5.00 K/uL Normal 1.57-6.19 [facility] Comment on above: Performed By: #### C MPN, LDO, FT4, TSH #### [facility] (DEFAULT) [address] [place] [address] 92420 WBC (Bld) [#/Vol] 7.76 10*3/uL Normal 3.73-10.10 [facility] Comment on above: Performed By: #### C MPN, LDO, FT4, TSH #### [facility] (DEFAULT) [address] [place] [address] 06214 COMPREHENSIVE METABOLIC PANE Wilber 08-11-2024 Albumin [Mass/Vol] 4.5 g/dL 3.5 - 5.0 g/dL [facility] ALP [Catalytic activity/Vol] 70 U/L 32 - 126 U/L [facility] ALT [Catalytic activity/Vol] 16 U/L 10 - 52 U/L [facility] Anion gap [Moles/Vol] 8 mmol/L 7 - 17 mmol/L [facility] AST [Catalytic activity/Vol] 16 U/L 10 - 39 U/L [facility] Bilirubin [Mass/Vol] 1.2 mg/dL NINF - 1.5 mg/dL [facility] Calcium [Mass/Vol] 9.2 mg/dL 8.6 - 10. 5 mg/dL [facility] Chloride [Moles/Vol] 103 mmol/L 98 - 10 8 mmol/L [facility] CO2 [Moles/Vol] 29 mmol/L 21 - 31 mmol/L [facility] Creatinine [Mass/Vol] 1.05 mg/dL 0.70 - 1.30 mg/dL [facility] eGFR, CKD-EPI, Male 74 - PINF [facility] Comment on above: Reported eGFR is bas ed on the CKD-EPI 2020 equation using creatinine, age, and sex. Glucose [Mass/Vol] 110 mg/dL 70 - 179 mg/dL [facility] Osmolality Calc [Osmolality] 284 [facility] Potassium [Moles/Vol] 3.9 mmol/L 3.5 - 5.0 mmol/L [facility] Protein [Mass/Vol] 7.0 g/dL 6.4 - 8.3 g/dL [facility] Sodium [Moles/Vol] 136 mmol/L 135 - 145 mmol/L [facility] Urea nitrogen [Mass/Vol] 8 mg/dL 7 - 25 mg/dL [facility] Urea nitrogen/Creatinine [Mass ratio] 8 mg/mg [facility] Albumin [Mass/Vol] 4.5 g/dL Normal 3.5-5.0 [facility] Comment on above: Performed By: #### C MPN, LDO, FT4, TSH #### [facility] (DEFAULT) [address] [place] [address] 87547 ALP [Catalytic activity/Vol] 70 U/L Normal 32-126 [facility] Comment on above: Performed By: #### C MPN, LDO, FT4, TSH #### [facility] (DEFAULT) [address] [place] [address] ALT [Catalytic activity/Vol] 16 U/L Normal 10-52 [facility] Comment on above: Performed By: #### C MPN, LDO, FT4, TSH #### [facility] (DEFAULT) [address] [place] [address] 51322 Anion gap [Moles/Vol] 8 mmol/L Normal 7-17 [facility] Comment on above: Performed By: #### C MPN, LDO, FT4, TSH #### [facility] (DEFAULT) [address] [place] [address] 80270 AST [Catalytic activity/Vol] 16 U/L Normal 10-39 [facility] Comment on above: Performed By: #### C MPN, LDO, FT4, TSH #### [facility] (DEFAULT) [address] [place] [address] 58455 Bilirubin [Mass/Vol] 1.2 mg/dL Normal <1.5 [facility] Comment on above: Performed By: #### C MPN, LDO, FT4, TSH #### [facility] (DEFAULT) [address] [place] [address] 42471 Calcium [Mass/Vol] 9.2 mg/dL Normal 8.6-10.5 [facility] Comment on above: Performed By: #### C MPN, LDO, FT4, TSH #### [facility] (DEFAULT) [address] [place] [address] 97567 Chloride [Moles/Vol] 103 mmol/L Normal 98-108 [facility] Comment on above: Performed By: #### C MPN, LDO, FT4, TSH #### [facility] (DEFAULT) [address] [place] [address] 18537 CO2 [Moles/Vol] 29 mmol/L Normal 21-31 [facility] Comment on above: Performed By: #### C MPN, LDO, FT4, TSH #### [facility] (DEFAULT) [address] [place] [address] 91050 Creatinine [Mass/Vol] 1.05 mg/dL Normal 0.70-1.30 [facility] Comment on above: Performed By: #### C MPN, LDO, FT4, TSH #### [facility] (DEFAULT) [address] [place] [address] 35240 GFR/1.73 sq M.predicted among non-blacks MDRD (S/P/Bld) [Vol rate/Area] 73 mL/min/{1.73_m2} Normal >=60 [facility] Comment on above: Result Comment: Repo rted eGFR is based on the CKD-EPI 2020 equation using creatinine, age, and sex. Performed By: #### C MPN, LDO, FT4, TSH #### [facility] (DEFAULT) [address] [place] [address] 05718 Glucose [Mass/Vol] 110 mg/dL Normal 70-179 [facility] Comment on above: Performed By: #### C MPN, LDO, FT4, TSH #### [facility] (DEFAULT) [address] [place] [address] 75500 Osmolality [Osmolality] 284 mosm/kg Normal 278-305 [facility] Comment on above: Performed By: #### C MPN, LDO, FT4, TSH #### [facility] (DEFAULT) [address] [place] [address] 47737 Potassium [Moles/Vol] 3.9 mmol/L Normal 3.5-5.0 [facility] Comment on above: Performed By: #### C MPN, LDO, FT4, TSH #### [facility] (DEFAULT) [address] [place] [address] 02994 Protein [Mass/Vol] 7.0 g/dL Normal 6.4-8.3 [facility] Comment on above: Performed By: #### C MPN, LDO, FT4, TSH #### [facility] (DEFAULT) [address] [place] [address] 66638 Sodium [Moles/Vol] 136 mmol/L Normal 135-145 [facility] Comment on above: Performed By: #### C MPN, LDO, FT4, TSH #### [facility] (DEFAULT) [address] [place] [address] 45361 Urea nitrogen [Mass/Vol] 8 mg/dL Normal 7-25 [facility] Comment on above: Performed By: #### C MPN, LDO, FT4, TSH #### [facility] (DEFAULT) [address] [place] [address] 54822 Urea nitrogen/Creatinine [Mass ratio] 8 mg/mg Normal [facility] Comment on above: Performed By: #### C MPN, LDO, FT4, TSH #### [facility] (DEFAULT) [address] [place] [address] 57169 LACTATE DEHYDROGENASEon 07-28 Interpretation and review of laboratory results Normal [facility] LDH Lactate to pyruvate reaction [Catalytic activity/Vol] 175 U/L 100 - 190 U/L [facility] LD Total 175 U/L Normal 100-190 [facility] Comment on above: Performed By: #### C MPN, LDO, FT4, TSH #### [facility] (DEFAULT) [address] [place] [address] 49755 No Panel Informationon 08-11 [facility] T4 FREEon 08-11-2024 Free T4 [Mass/Vol] 1.46 ng/dL 0.89 - 1. 76 ng/dL [facility] Interpretation and review of laboratory results Normal [facility] Free T4 [Mass/Vol] 1.46 ng/dL Normal 0.89-1.76 [facility] Comment on above: Performed By: #### C MPN, LDO, FT4, TSH #### [facility] (DEFAULT) [address] [place] [address] 49398 TSHon 08-11-2024 Interpretation and review of laboratory results Normal [facility] TSH Qn 2.704 m[IU]/L [facility] TSH 2.704 uIU/mL Normal 0.550-4.780 [facility] Comment on above: Performed By: #### C MPN, LDO, FT4, TSH #### [facility] (DEFAULT) [address] [place] [address] CT CHEST WITH CONTRASTon CT CHEST WITH CONTRAST EXAM: CT CHEST WI TH CONTRAST COMPARISON: 04/21/24 CLINICAL INDICATIONS: lung cancer restaging - on active treatment TECHNIQUE: IV contrast enhanced axial CT images of the chest 5 mm with 1 mm contiguous high-resolution, coronal MIP and sagittal MPR series. FINDINGS: Prior right upper lobectomy. Development of a new solid lobulated right lower lobe superior segmental nodule on series 3 image 117 measuring 6 x 6 x 6 mm. Air bronchograms are present. This is highly suspect to represent a new primary lung malignancy, presumably an adenocarcinoma. The 2 left lower lobe subpleural nodules on series 3 images 189 and 181 are unchanged. Reticular opacities involving both lower lobes, right greater than left is unchanged. Small cystic regions involving the right lower lobe costophrenic angle are unchanged in size and appearance. No pleural effusions. Moderate emphysema. Right middle lobe atelectasis, unchanged. Heart size is normal without pericardial effusion. Coronary artery calcification and coronary stents. Old left ventricular inferior wall AR, unchanged. Pacemaker leads appear unchanged. There are no pathologically enlarged mediastinal, hilar or axillary lymph nodes. Unenhanced pulmonary artery is unremarkable. Moderate atherosclerotic disease involving the arch and descending aorta. Visualized upper abdomen demonstrates nonobstructive punctate renal calculi. Bilateral symmetric perinephric stranding is unchanged. Osseous structures do not demonstrate any destructive lesions. IMPRESSION: 1. Development of a new 6 x 6 x 6 mm lobulated solid nodule in the right lower lobe superior segment, highly suspect to represent a new primary lung malignancy/presumed adenocarcinoma. 2. No suspect adenopathy. Dante Garrett M.D. This report has been electronically signed and verified by the Radiologist whose name is printed above. This report contains privileged and confidential information and is intended solely for the use of the individual or entity to which it is addressed. If you are not the intended recipient of this report, you are hereby notified that any copying, distribution, dissemination or action taken in relation to the contents of this report is strictly prohibited and may be unlawful. If you have received this report in error, please notify the sender immediately at [phone] and permanently delete the original report and destroy any copies or printouts. Normal [facility] CREAT/GFRon 07-29-2024 Creatinine [Mass/Vol] 0.86 mg/dL 0.70 - 1.30 mg/dL [facility] GFR/1.73 sq M.predicted CKD-EPI (S/P/Bld) [Vol rate/Area] 89 - PINF [facility] Comment on above: Reported eGFR is bas ed on the CKD-EPI 2020 equation using creatinine, age, and sex. Interpretation and review of laboratory results Normal [facility] Test performed at address of the patient encounter. [facility] Emergency Department Summary on 07-24-2024 Emergency Department Summary [facility] Medical Records Department [address] [place] [id number] Emergency Department Summary 07/24/24 MR#: [id number] Acct: [id number] Name: PETAR PENNY Rep #: [id number] : 1945 79 From: Asher Leyva DO PCP: Dr. Makayla Peters MD Status:DEP ER Location: ED HPI History of Present Illness Chief Complaint: Abd Pain Informant: patient and spouse/S.O. Narrative Narrative: Patient is a 79-year-old male with past medical history of hypertension hyperlipidemia and squamous cell carcinoma. He states for the past 2 to 3 days he has been having right sided abdominal pain that wraps towards his back. He states there is no associated nausea vomiting or diarrhea. He denies any trauma or excessive activity. He denies any dysuria or hematuria. He states his symptoms have not resolved with time and secondary to his he presents for evaluation. [facility] Medical History Squamous cell carcinoma Wears hearing aid in both ears Hearing loss, left Hearing loss, right Alcohol abuse GERD (gastroesophageal reflux disease) Former smoker CPAP (continuous positive airway pressure) dependence Sleep apnea Myocardial infarct Hypertension Pacemaker Second degree AV block, Mobitz type I Presence of permanent cardiac pacemaker PVD (peripheral vascular disease) Abdominal aortic aneurysm without rupture Essential hypertension Pure hypercholesterolemia VANDANA (obstructive sleep apnea) CVA (cerebral vascular accident) Diastolic dysfunction Hyperlipidemia Acquired left ventricular hypertrophy Right bundle-branch block Old myocardial infarction 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 Intractable nausea and vomiting Headache History of TIA Hypertension Coronary artery disease Home Medications ???Medication ???Instructions ???Recorded ???Last Taken ???Type omega-3 fatty acids 300 mg capsule 300 mg PO DAILY supplement 03/02/14 03/04/23 10:00 History pantoprazole 40 mg tablet,delayed 40 mg PO DAILY reflux 07/08/18 09/18/23 History release vitamin E (dl, acetate) 180 mg 400 units PO DAILY vitamin 07/08/18 03/04/23 08:00 History (400 unit) capsule aspirin 81 mg tablet,delayed 81 mg PO DAILY@0800 [facility] 07/09/18 09/18/23 Rx release nitroglycerin 0.4 mg sublingual 0.4 mg sublingual Q5M PRN Chest 12/03/21 Unknown Rx tablet Pain #25 tabs losartan 50 mg tablet 25 mg PO DAILY blood pressure 11/07/23 Unknown History pembrolizumab 25 mg/mL intravenous mg .Route 11/07/23 Unknown History solution (Keytruda) fluticasone propionate 250 1 inh inhalation BID #60 ea 12/23/23 Unknown Rx mcg/actuation blister powder for inhalation clopidogrel 75 mg tablet 75 mg PO DAILY #60 tabs 04/12/24 Unknown Rx amlodipine 10 mg tablet 10 mg PO DAILY blood pressure #90 06/28/24 Unknown Rx tabs atorvastatin 40 mg tablet 40 mg PO DAILY cholesterol #90 tabs 06/28/24 Unknown Rx tramadol 50 mg tablet 50 mg PO Q6H PRN pain 3 days #12 07/24/24 Unknown Rx tabs Allergy/AdvReac Type Severity Reaction Status Date / Time Penicillins Allergy Anaphylaxis Verified 07/23/24 20:19 Family History Brother Diabetes Brother Hypertension Brother Cancer esophageal Brother Hip fracture Sister Diabetes Kidney disease kidney failure Sister Diabetes CAD (coronary artery disease) Hx of CABG Obesity Hyperlipidemia Father CAD (coronary artery disease) Myocardial infarction CHF (congestive heart failure) Daughter Migraine Mother Cancer Lung cancer Myocardial infarction Surgical History S/P lobectomy of lung History of coronary artery stent placement ( 09/18/23) Social History Smoking Status: Former smoker pack-years: 23 Tobacco: How many years used: 23 Electronic Cigarette Use: not used how long ago did patient quit smokin second hand exposure: No alcohol intake: former year quit: 1992 substance use type: does not use caffeine: No what type of physical activity do you participate in: bicycling and other details: tredmill frequency: 3-4 times per week duration: 30-45 minutes/day seatbelt use: always do you feel safe at home: Yes ROS ROS ED Constitutional Constitutional ED: Denies chills or fever(s) Eyes Eyes: Denies change in vision ENT ENT ED: Denies sore throat Cardiovascular Cardiovascular: Denies chest pain Respiratory/Chest Respiratory/Chest: Denies cough or dyspnea Gastrointestinal Gastrointestinal: Reports abdominal pain; Denies diarrhea, nausea or vomiting Genitourinary Genitourinary ED: Denies dysuria or hematu (more content not included)... Normal [facility] Abdomen/Pelvis W IV Cont ONL Yon 07-23-2024 Abdomen/Pelvis W IV Cont ONLY [facility] Imaging Services [address] [place], [place] [address] Abdomen/Pelvis W IV Cont ONLY MR#: [id number] Acct: [id number] Name: PETAR PENNY Rep #: [id number] : 1945 79 From: Asher Montemayor MD PCP: Dr. Makayla Peters MD Status: REG ER Study: Abdomen/Pelvis W IV Cont ONLY Date of Exam: Exam# [id number] Ordering Dr: [place] [id number] EXAM: CT ABDOMEN AND PELVIS WITH INTRAVENOUS CONTRAST CLINICAL INDICATION: abd pain TECHNIQUE: Helically acquired images were obtained of the abdomen and pelvis with intravenous contrast. CTDIvol = ( 31.93 ) mGy, DLP = ( 1177.60 ) mGycm This CT exam was performed using one or more of the following dose reduction techniques: automated exposure control, adjustment of the mA and/or kV according to patient size, and/or use of iterative reconstruction technique. CONTRAST: IV 100mL Isovue-370 COMPARISON: No relevant prior studies available. FINDINGS: LOWER THORAX: Lung bases are clear of any acute disease. ABDOMEN: LIVER: Unremarkable. Homogeneous. No focal mass. GALLBLADDER AND BILE DUCTS: Unremarkable. No calcified gallstones. No gallbladder distention or wall edema. No intra- or extrahepatic biliary ductal dilation. PANCREAS: Unremarkable. No focal cystic or solid mass. SPLEEN: Unremarkable. Normal size without focal cystic or solid mass. ADRENALS: Unremarkable. No nodules. KIDNEYS AND URETERS: Nonobstructing small renal calyceal calculi bilaterally. Normal renal size and position. STOMACH AND BOWEL: Unremarkable. No focal inflammatory change. No inflammatory or obstructive changes of bowel. PELVIS: APPENDIX: No evidence of acute appendicitis. BLADDER: Unremarkable. REPRODUCTIVE: Unremarkable as visualized. No mass. ABDOMEN and PELVIS: INTRAPERITONEAL SPACE: Unremarkable. No free air or free fluid. BONES/JOINTS: Degenerative changes of the pelvis and spine. No unusual lytic destructive lesions of bone. SOFT TISSUES: Very small fat-containing left inguinal hernia. Overlying soft tissues tissues are unremarkable. VASCULATURE: 4.2 cm distal infrarenal saccular abdominal aortic aneurysm does not involve the bifurcation. No adjacent stranding. Multivessel calcific coronary atherosclerosis. . LYMPH NODES: Unremarkable. No enlarged lymph nodes. CT/Abdomen/Pelvis W IV Cont ONLY IMPRESSION: 1. No acute or inflammatory disease or bowel obstruction. 2. 4.2 cm distal infrarenal saccular abdominal aortic aneurysm with no adjacent stranding. 3. Nonobstructing small renal calyceal calculi bilaterally. 4. Fluid 5. Ancillary findings as above. Electronically Signed: Asher oMntemayor MD at 1:32 EST , CC: Dr. Makayla Peters MD; Asher Leyva DO Consumer Safety Inspector: Signed Normal [facility] Abdomen/Pelvis without Conto n 07-23-2024 Abdomen/Pelvis without Cont [facility] Imaging Services [address], [place] [address] Abdomen/Pelvis without Cont MR#: [id number] Acct: [id number] Name: PETAR PENNY Rep #: [id number] : [id number] M [id number] From: Sly araujo MD PCP: Dr. Makayla Peters MD Status: REG ER Study: Abdomen/Pelvis without Cont Date of Exam: 06/28 02/17 Exam# [id number] Ordering [place]: [place] [id number] INDICATION: right flank pain EXAMINATION: CT Abdomen And Pelvis W/O Contrast Injection TECHNIQUE: Helically acquired images were obtained of the abdomen and pelvis without the use of IV contrast. A radiation dose optimization technique was used for this scan. Oral contrast: None. COMPARISON: None FINDINGS: Evaluation of the solid organs and vascular structures is limited without intravenous contrast. Visualized lung bases: Cluster tree-in-bud opacities in the right lung base. Liver: Unremarkable Gallbladder: Unremarkable Spleen: Unremarkable Pancreas: Mild fat stranding surrounding the head of the pancreas. Adrenal Glands: Unremarkable Kidneys: Few punctate 1 to 2 mm nonobstructing stones seen in both kidneys. Vasculature: Severe aortoiliac atherosclerotic disease. 3.9 cm infrarenal abdominal aortic aneurysm. GI Tract: Unremarkable Lymphadenopathy: None Peritoneum: No ascites. Bladder: Unremarkable Reproductive organs: Unremarkable Bones/Soft tissues: There are diffuse degenerative changes of the spine. CT/Abdomen/Pelvis without Cont IMPRESSION: Findings suspicious for acute focal pancreatitis. No focal fluid collection. Correlate with lipase levels. Few punctate 1 to 2 mm nonobstructing stones seen in both kidneys. 3.9 cm infrarenal abdominal aortic aneurysm. Clustered tree-in-bud opacities in the right lung base may be infectious versus inflammatory in etiology. Electronically Signed: Sly Ballard MD at 23:04 EST , CC: Dr. Makayla Peters MD; Asher Leyva DO Consumer Safety Inspector: Signed Normal [facility] Absolute neutrophil countOrd ered By: Asher Leyva on 07-23-2024 Neutrophils (Bld) [#/Vol] 7.7 10*3/uL 2.0-7.7 [facility] Basic Metabolic Profile (BMP )on 07-23-2024 BUN/CRE 10.6 RATIO Normal 10-20 [facility] Comment on above: Performed By: #### L 100.0100, L500.2500 #### [facility] [address] [place], [address] CA,Total 9.4 mg/dL Normal 8.5-10.1 [facility] Comment on above: Performed By: #### L 100.0100, L500.2500 #### [facility] [address] [place], [address] Chloride [Moles/Vol] 105 mmol/L Normal 98-107 [facility] Comment on above: Performed By: #### L 100.0100, L500.2500 #### [facility] [address] [place], [address] CO2 [Moles/Vol] 27.0 mmol/L Normal 21.0-32.0 [facility] Comment on above: Performed By: #### L 100.0100, L500.2500 #### [facility] [address] [place], [address] Creatinine [Mass/Vol] 1.51 mg/dL High 0.70-1.30 [facility] Comment on above: Result Comment: The validity of the calculated GFR GFRAA in patients over 70 years has not been determined. Clinical correlation is essential. Performed By: #### L 100.0100, L500.2500 #### [facility] [address] [place], [address] ECRCL 44.86 ml/min Normal [facility] Comment on above: Performed By: #### L 100.0100, L500.2500 #### [facility] [address] [place], [address] EST GFR - AA 58 mL/min Low >60 [facility] Comment on above: Result Comment: Afri can Cymro GFR Calc Performed By: #### L 100.0100, L500.2500 #### [facility] [address] [place], [address] GAP 7 Normal 5-15 [facility] Comment on above: Performed By: #### L 100.0100, L500.2500 #### [facility] [address] [place], [address] GFR/1.73 sq M.predicted among non-blacks MDRD (S/P/Bld) [Vol rate/Area] 48 mL/min/{1.73_m2} Low >60 [facility] Comment on above: Result Comment: Non- GFR Calc Performed By: #### L 100.0100, L500.2500 #### [facility] [address] [place], [address] Glucose [Mass/Vol] 107 mg/dL High 74-106 [facility] Comment on above: Result Comment: Fast ing Glucose result from 100 to 125 mg/dL suggests IMPAIRED HOMEOSTASIS per A.D.A. criteria. Performed By: #### L 100.0100, L500.2500 #### [facility] [address] [place], [address] Potassium [Moles/Vol] 4.0 mmol/L Normal 3.5-5.1 [facility] Comment on above: Performed By: #### L 100.0100, L500.2500 #### [facility] [address] [place], [address] Sodium [Moles/Vol] 139 mmol/L Normal 136-145 [facility] Comment on above: Performed By: #### L 100.0100, L500.2500 #### [facility] [address] [place], [address] Urea nitrogen [Mass/Vol] 16 mg/dL Normal 7-18 [facility] Comment on above: Performed By: #### L 100.0100, L500.2500 #### [facility] [address] [place], [address] Basophil percentageOrdered B y: Asher Leyva on 07-23-2024 Basophils/100 WBC (Bld) 1.2 % High 0-1 [facility] Bilirubin Test strip Ql (U)O rdered By: Asher Leyva on 07-23-2024 Bilirubin Ql (U) Negative Negative [facility] Bilirubin directOrdered By: Asher Leyva on 07-23-2024 Bilirubin.direct [Mass/Vol] 0.25 mg/dL 0.00-0.30 [facility] Bilirubin, totalOrdered By: Asher Leyva on 07-23-2024 Bilirubin [Mass/Vol] 1.10 mg/dL High 0.20-1.00 [facility] Comment on above: For patients on eltr ombopag therapy, use of Dimension [place] TBIL is not recommended. Blood urea nitrogen (BUN)/cr eatinine ratioOrdered By: Asher Leyva on 07-23-2024 Urea nitrogen/Creatinine [Mass ratio] 10.6 mg/mg 10-20 [facility] CBC W/Diff, Automatedon 12-2 Absolute Lymph 1.65 X10 3/uL Normal 0.83-4.51 [facility] Comment on above: Performed By: #### L 100.0100, L500.2500 #### [facility] [address] [place], [address] Absolute Neut 7.7 X10 3/uL Normal 2.0-7.7 [facility] Comment on above: Performed By: #### L 100.0100, L500.2500 #### [facility] [address] [place], [address] Basophils/100 WBC (Bld) 1.2 % High 0-1 [facility] Comment on above: Performed By: #### L 100.0100, L500.2500 #### [facility] [address] [place], [address] Eosinophils/100 WBC (Bld) 3.7 % Normal 0-5 [facility] Comment on above: Performed By: #### L 100.0100, L500.2500 #### [facility] [address] [place], [address] Erythrocyte distribution width (RBC) [Ratio] 13.2 % Normal 11.6-14.6 [facility] Comment on above: Performed By: #### L 100.0100, L500.2500 #### [facility] [address] [place], [address] Hematocrit (Bld) [Volume fraction] 43.1 % Normal 40-54 [facility] Comment on above: Performed By: #### L 100.0100, L500.2500 #### [facility] [address] [place], [address] Hemoglobin (Bld) [Mass/Vol] 14.6 g/dL Normal 13.0-16.5 [facility] Comment on above: Performed By: #### L 100.0100, L500.2500 #### [facility] [address] [place], [address] IG% 0.400 Normal 0.0-0.9 [facility] Comment on above: Result Comment: IG% - Immature Granulocytes (promyelocytes, myelocytes and metamyelocytes) > 1% indicates that a LEFT SHIFT is Present. Performed By: #### L 100.0100, L500.2500 #### [facility] [address] [place], [address] Lymphocytes/100 WBC (Bld) 15.0 % Low 19-41 [facility] Comment on above: Performed By: #### L 100.0100, L500.2500 #### [facility] [address] [place], [address] MCH (RBC) [Entitic mass] 30.9 pg Normal 27.0-32.0 [facility] Comment on above: Performed By: #### L 100.0100, L500.2500 #### [facility] [address] [place], [address] MCHC (RBC) [Mass/Vol] 33.9 g/dL Normal 32-36 [facility] Comment on above: Performed By: #### L 100.0100, L500.2500 #### [facility] [address] [place], [address] MCV (RBC) [Entitic vol] 91.3 fL Normal 80-94 [facility] Comment on above: Performed By: #### L 100.0100, L500.2500 #### [facility] [address] [place], [address] Monocytes/100 WBC (Bld) 10.1 % High 0-10 [facility] Comment on above: Performed By: #### L 100.0100, L500.2500 #### [facility] [address] [place], [address] Neutrophils/100 WBC (Bld) 69.6 % Normal 47-70 [facility] Comment on above: Performed By: #### L 100.0100, L500.2500 #### [facility] [address] [place], [address] Nucleated RBC (Bld) [#/Vol] 0 10*3/uL Normal 0-5 [facility] Comment on above: Performed By: #### L 100.0100, L500.2500 #### [facility] [address] [place], [address] Platelet mean volume (Bld) [Entitic vol] 9.7 fL Normal 6.2-12.0 [facility] Comment on above: Performed By: #### L 100.0100, L500.2500 #### [facility] [address] [place], [address] Platelets (Bld) [#/Vol] 218 10*3/uL Normal 150-450 [facility] Comment on above: Performed By: #### L 100.0100, L500.2500 #### [facility] [address] [place], [address] RBC (Bld) [#/Vol] 4.72 10*6/uL Normal 4.6-6.2 [facility] Comment on above: Performed By: #### L 100.0100, L500.2500 #### [facility] [address] [place], [address] RDW SD 44.8 fl High 35.1-43.9 [facility] Comment on above: Performed By: #### L 100.0100, L500.2500 #### [facility] [address] [place], [address] WBC (Bld) [#/Vol] 11.0 10*3/uL Normal 4.4-11.0 [facility] Comment on above: Performed By: #### L 100.0100, L500.2500 #### [facility] [address] [place], [address] Carbon dioxide measurementOr dered By: Asher Leyva on 07-23-2024 CO2 [Moles/Vol] 27.0 mmol/L 21.0-32.0 [facility] Chloride measurementOrdered By: Asher Leyva on 07-23-2024 Chloride [Moles/Vol] 105 mmol/L 98-107 [facility] Eosinophil percentageOrdered By: Asher Leyva on 07-23-2024 Eosinophils/100 WBC (Bld) 3.7 % 0-5 [facility] Epithelial cells.squamous LM Ql (Urine sed)Ordered By: Asher Leyva on 07-23-2024 Epithelial cells.squamous LM.HPF (Urine sed) [#/Area] 0 /[HPF] 0-5 [facility] Erythrocyte distribution wid th ratioOrdered By: Asher Leyva on 07-23-2024 Erythrocyte distribution width (RBC) [Ratio] 13.2 % 11.6-14.6 [facility] Erythrocyte distribution wid th standard deviationOrdered By: Asher Leyva on 07-23-2024 Erythrocyte distribution width (RBC) [Entitic vol] 44.8 fL High 35.1-43.9 [facility] Estimated glomerular filtrat ion rate (GFR) AmericanOrdered By: Asher Leyva on 07-23-2024 Estimated GFR (MDRD) Amer 58 mL/min Low >60 [facility] Comment on above: GFR Calc Estimation of creatinine alyx aranceOrdered By: Asher Leyva on 07-23-2024 Estimated Creatinine Clearance Calc 44.86 ml/min [facility] Glomerular filtration rate ( GFR) estimationOrdered By: Asher Leyva on 07-23-2024 Estimated GFR (MDRD) Non-Af Amer 48 mL/min Low >60 [facility] Comment on above: Non- GFR Calc Glucose Ql (U)Ordered By: Merari Leyva on 07-23-2024 Urine Glucose (UA) Normal mg/dl Normal [facility] Glucose measurementOrdered B y: Asher Leyva on 07-23-2024 Glucose [Mass/Vol] 107 mg/dL High 74-106 [facility] Comment on above: Fasting Glucose resu lt from 100 to 125 mg/dL suggests IMPAIRED HOMEOSTASIS per A.D.A. criteria. Hematocrit Auto (Bld) [Volum e fraction]Ordered By: Asher Leyva on 07-23-2024 Hematocrit (Bld) [Volume fraction] 43.1 % 40-54 [facility] Hemoglobin measurementOrdere d By: Asher Leyva on 07-23-2024 Hemoglobin (Bld) [Mass/Vol] 14.6 g/dL 13.0-16.5 [facility] Immature granulocytes/100 WB C Auto (Bld)Ordered By: Asher Leyva on 07-23-2024 Immature granulocytes/100 WBC (Bld) 0.400 % 0.0-0.9 [facility] Comment on above: IG% - Immature Granu locytes (promyelocytes, myelocytes and metamyelocytes) > 1% indicates that a LEFT SHIFT is Present. Ketones Test strip Ql (U)Ord ered By: Asher Leyva on 07-23-2024 Ketones Ql (U) Negative Negative [facility] - Chemistry and C hemistry - challengeOrdered By: Asher Leyva on 07-23-2024 AST [Catalytic activity/Vol] 15 U/L 15-37 [facility] Lipaseon 07-23-2024 Lipase [Catalytic activity/Vol] 100 U/L High 13-75 [facility] Comment on above: Result Comment: Hardik lira note: LIPASE revised reference range effective 22. New Lipase methodology. Expected to produce lower values than the previous assay method. NEW Reference Range: 13 - 75 U/L Performed By: #### L 500.3400, L501.2450 #### [facility] [address] [place], [address] Lipase measurementOrdered By : Asher Leyva on 07-23-2024 Lipase [Catalytic activity/Vol] 100 U/L High 13-75 [facility] Comment on above: Please note:LIPASE r evised reference range effective 22. New Lipase methodology. Expected to produce lower values than the previous assay method. NEW Reference Range: 13 - 75 U/L Liver Profileon 07-23-2024 Albumin [Mass/Vol] 3.5 g/dL Normal 3.2-5.0 [facility] Comment on above: Performed By: #### L 500.3400, L501.2450 #### [facility] [address] [place], [address] ALK P 79 U/L Normal 45-117 [facility] Comment on above: Performed By: #### L 500.3400, L501.2450 #### [facility] [address] [place], [address] ALT [Catalytic activity/Vol] 19 U/L Normal 16-61 [facility] Comment on above: Performed By: #### L 500.3400, L501.2450 #### [facility] [address] [place], [address] AST [Catalytic activity/Vol] 15 U/L Normal 15-37 [facility] Comment on above: Performed By: #### L 500.3400, L501.2450 #### [facility] [address] [place], [address] Bilirubin [Mass/Vol] 1.10 mg/dL High 0.20-1.00 [facility] Comment on above: Result Comment: For patients on eltrombopag therapy, use of Dimension [place] TBIL is not recommended. Performed By: #### L 500.3400, L501.2450 #### [facility] [address] [place], [address] Bilirubin.direct [Mass/Vol] 0.25 mg/dL Normal 0.00-0.30 [facility] Comment on above: Performed By: #### L 500.3400, L501.2450 #### [facility] [address] [place], [address] Globulin (S) [Mass/Vol] 3.6 g/dL Normal 2.2-4.2 [facility] Comment on above: Performed By: #### L 500.3400, L501.2450 #### [facility] [address] [place], [address] T PROT 7.1 g/dL Normal 6.4-8.2 [facility] Comment on above: Performed By: #### L 500.3400, L501.2450 #### [facility] [address] [place], [address] Lymphocytes Auto (Unsp spec) [#/Vol]Ordered By: Asher Leyva on 07-23-2024 Lymphocytes (Bld) [#/Vol] 1.65 10*3/uL 0.83-4.51 [facility] Lymphocytes/100 WBC Auto (Un sp spec)Ordered By: Asher Leyva on 07-23-2024 Lymphocytes/100 WBC (Bld) 15.0 % Low 19-41 [facility] MCV (mean corpuscular volume ) determinationOrdered By: Asher Leyva on 07-23-2024 MCV (RBC) [Entitic vol] 91.3 fL 80-94 [facility] Mean corpuscular hemoglobin (MCH) determinationOrdered By: Asher Leyva on 07-23-2024 MCH (RBC) [Entitic mass] 30.9 pg 27.0-32.0 [facility] Mean corpuscular hemoglobin concentration (MCHC) determinationOrdered By: Asher Leyva on 07-23-2024 MCHC (RBC) [Mass/Vol] 33.9 g/dL 32-36 [facility] Mean platelet volume determi nationOrdered By: Asher Leyva on 07-23-2024 Platelet mean volume (Bld) [Entitic vol] 9.7 fL 6.2-12.0 [facility] Microscopic analysis of urin e for red blood cells (RBC)Ordered By: Asher Leyva on 07-23-2024 Urine RBC 0 SEEN /hpf 0-5 [facility] Monocyte percentageOrdered B y: Asher Leyva on 07-23-2024 Monocytes/100 WBC (Bld) 10.1 % High 0-10 [facility] Mucus LM Ql (Urine sed)Order ed By: Asher Leyva on 07-23-2024 Mucus Ql (Urine sed) 0 SEEN /hpf [facility] Neutrophil percentageOrdered By: Asher Leyva on 07-23-2024 Neutrophils/100 WBC (Bld) 69.6 % 47-70 [facility] Nitrite Test strip Ql (U)Ord ered By: Asher Leyva on 07-23-2024 Nitrite Ql (U) Negative Negative [facility] Nucleated red blood cell per centageOrdered By: Asher Leyva on 07-23-2024 Nucleated RBC/100 WBC (Bld) [Ratio] 0 % 0-5 [facility] Platelet countOrdered By: Merari Leyva on 07-23-2024 Platelets (Bld) [#/Vol] 218 10*3/uL 150-450 [facility] Potassium measurementOrdered By: sAher Leyva on 07-23-2024 Potassium [Moles/Vol] 4.0 mmol/L 3.5-5.1 [facility] Protein Test strip Ql (U)Ord ered By: Asher Leyva on 07-23-2024 Protein Ql (U) 30 mg/dl High Negative [facility] RBC Auto (Bld) [#/Vol]Ordere d By: Asher Leyva on 07-23-2024 RBC (Bld) [#/Vol] 4.72 10*6/uL 4.6-6.2 [facility] Serum anion gap measurementO rdered By: Asher Leyva on 07-23-2024 Anion gap [Moles/Vol] 7 mmol/L 5-15 [facility] Serum globulin measurementOr dered By: Asher Leyva on 07-23-2024 Globulin (S) [Mass/Vol] 3.6 g/dL 2.2-4.2 [facility] Serum or plasma alanine alvarado otransferase (ALT) measurementOrdered By: Ashre Leyva on 07-23-2024 ALT [Catalytic activity/Vol] 19 U/L 16-61 [facility] Serum or plasma albumin cyndi urement (mass/volume)Ordered By: Asher Leyva on 07-23-2024 Albumin [Mass/Vol] 3.5 g/dL 3.2-5.0 [facility] Serum or plasma alkaline lisa sphatase measurementOrdered By: Asher Leyva on 07-23-2024 ALP [Catalytic activity/Vol] 79 U/L 45-117 [facility] Serum or plasma calcium cyndi urement (mass/volume)Ordered By: Asher Leyva on 07-23-2024 Calcium [Mass/Vol] 9.4 mg/dL 8.5-10.1 [facility] Serum or plasma creatinine m easurement (mass/volume)Ordered By: Asher Leyva on 07-23-2024 Creatinine [Mass/Vol] 1.51 mg/dL High 0.70-1.30 [facility] Comment on above: The validity of the calculated GFR & GFRAA in patients over 70 years has not been determined. Clinical correlation is essential. Serum or plasma urea nitroge n measurement (mass/volume)Ordered By: Asher Leyva on 07-23-2024 Urea nitrogen [Mass/Vol] 16 mg/dL 7-18 [facility] Sodium levelOrdered By: Antoine Leyva on 07-23-2024 Sodium [Moles/Vol] 139 mmol/L 136-145 [facility] Total proteinOrdered By: Didier Leyva on 07-23-2024 Protein [Mass/Vol] 7.1 g/dL 6.4-8.2 [facility] Urinalysis, Completeon 07-23 WBC 0-5 SEEN Normal 0-5 [facility] Comment on above: Order Comment: SUZE CTOR TO SPECIFY Performed By: #### L 400.0001 #### [facility] [address] [place], [address] BACTERIA 0 SEEN Normal None Seen [facility] Comment on above: Order Comment: SUZE CTOR TO SPECIFY Performed By: #### L 400.0001 #### [facility] [address] [place], [address] EPI,SQUAMOUS 0 SEEN Normal 0-5 [facility] Comment on above: Order Comment: SUZE CTOR TO SPECIFY Performed By: #### L 400.0001 #### [facility] [address] [place], [address] Mucus Ql (Urine sed) [address] [facility] Comment on above: Order Comment: SUZE CTOR TO SPECIFY Performed By: #### L 400.0001 #### [facility] [address] [place], [address] RBC 0 SEEN Normal 0-5 [facility] Comment on above: Order Comment: SUZE CTOR TO SPECIFY Performed By: #### L 400.0001 #### [facility] [address] [place], [address] Urine blood detectionOrdered By: Asher Leyva on 07-23-2024 Urine Occult Blood Negative Negative [facility] Urine clarityOrdered By: Didier Leyva on 07-23-2024 Clarity (U) Clear Clear [facility] Urine color determinationOrd ered By: Asher Leyva on 07-23-2024 Color (U) Yellow Yellow [facility] Urine leukocyte esterase det ection by dipstickOrdered By: Asher Leyva on 07-23-2024 Leukocyte esterase Test strip Ql (U) 25 /ul High Negative [facility] Urine pHOrdered By: Asher robbins on 07-23-2024 pH (U) 6.0 [pH] 5.0 - 8.0 [facility] Urine sediment bacteria coun t by microscopy (number/high power field)Ordered By: Asher Leyva on 07-23-2024 Bacteria LM.HPF (Urine sed) [#/Area] 0 /[HPF] None Seen [facility] Urine specific gravity measu rementOrdered By: Asher Leyva on 07-23-2024 Specific gravity (U) [Rel density] 1.015 1.002-1.030 [facility] Urobilinogen Ql (U)Ordered B y: Asher Leyva on 07-23-2024 Urine Urobilinogen Normal mg/dl Normal [facility] White blood cell (WBC) count Ordered By: Asher Leyva on 07-23-2024 WBC (Bld) [#/Vol] 11.0 10*3/uL 4.4-11.0 [facility] White blood cell countOrdere d By: Asher Leyva on 07-23-2024 Urine WBC 0-5 SEEN /hpf 0-5 [facility] CBC AND ELECTRONIC DIFFon Basophils (Bld) [#/Vol] 0.14 10*3/uL High 0.00 - 0.09 K/uL [facility] Basophils/100 WBC (Bld) 1.5 % [facility] Differential cell count method Nom (Bld) Electronic Differential [facility] Eosinophils (Bld) [#/Vol] 0.39 10*3/uL 0.00 - 0.48 K/uL [facility] Eosinophils/100 WBC (Bld) 4.3 % [facility] Erythrocyte distribution width (RBC) [Ratio] 14.8 % High 10.9 - 14.3 % [facility] Hematocrit (Bld) [Volume fraction] 46.7 % 39.6 - 48.8 % [facility] Hemoglobin (Bld) [Mass/Vol] 15.8 g/dL 13.4 - 16.8 g/dL [facility] Immature granulocytes (Bld) [#/Vol] K/uL NINF - 0.07 K/uL [facility] Immature granulocytes/100 WBC (Bld) 0.3 % [facility] Interpretation and review of laboratory results Abnormal [facility] Lymphocytes (Bld) [#/Vol] 2.39 10*3/uL 0.83 - 3.57 K/uL [facility] Lymphocytes/100 WBC (Bld) 26.1 % [facility] MCH (RBC) [Entitic mass] 30.7 pg 26.1 - 33.3 pg [facility] MCHC (RBC) [Mass/Vol] 33.8 g/dL 31.9 - 36.5 g/dL [facility] MCV (RBC) [Entitic vol] 90.7 fL 79.0 - 94.5 fL [facility] Monocytes (Bld) [#/Vol] 0.83 10*3/uL 0.24 - 0.93 K/uL [facility] [facility] Monocytes/100 WBC (Bld) 9.1 % [facility] Neutrophils (Bld) [#/Vol] 5.37 10*3/uL 1.57 - 6.19 K/uL [facility] Nucleated RBC/100 WBC (Bld) [Ratio] 0.0 % [facility] Platelet mean volume (Bld) [Entitic vol] 9.6 fL 8.7 - 12.3 fL [facility] Platelets (Bld) [#/Vol] 252 10*3/uL 146 - 337 K/uL [facility] RBC (Bld) [#/Vol] 5.15 10*6/uL [facility] Segmented neutrophils/100 WBC (Bld) 58.7 % [facility] WBC (Bld) [#/Vol] 9.15 10*3/uL 3.73 - 10. 10 K/uL [facility] Basophils (Bld) [#/Vol] 0.14 10*3/uL High 0.00-0.09 [facility] Comment on above: Performed By: #### C MPN, LDO, FT4, TSH #### [facility] (DEFAULT) [address] [place] [address] 44700 Basophils/100 WBC (Bld) 1.5 % Normal [facility] Comment on above: Performed By: #### C MPN, LDO, FT4, TSH #### [facility] (DEFAULT) [address] [place] [address] 83176 DIFF STATUS Electronic Differential Normal [facility] Comment on above: Performed By: #### C MPN, LDO, FT4, TSH #### [facility] (DEFAULT) [address] [place] [address] 85006 Eosinophils (Bld) [#/Vol] 0.39 10*3/uL Normal 0.00-0.48 [facility] Comment on above: Performed By: #### C MPN, LDO, FT4, TSH #### [facility] (DEFAULT) [address] [place] [address] 29419 Eosinophils/100 WBC (Bld) 4.3 % Normal [facility] Comment on above: Performed By: #### C MPN, LDO, FT4, TSH #### [facility] (DEFAULT) [address] [place] [address] 66712 Hematocrit (Bld) [Volume fraction] 46.7 % Normal 39.6-48.8 [facility] Comment on above: Performed By: #### C MPN, LDO, FT4, TSH #### [facility] (DEFAULT) [address] [place] [address] 90767 Hemoglobin (Bld) [Mass/Vol] 15.8 g/dL Normal 13.4-16.8 [facility] Comment on above: Performed By: #### C MPN, LDO, FT4, TSH #### [facility] (DEFAULT) [address] [place] [address] 55646 Immature Grans % 0.3 % Normal [facility] Comment on above: Performed By: #### C MPN, LDO, FT4, TSH #### [facility] (DEFAULT) [address] [place] [address] 38817 Immature Grans Absolute < Normal <=0.[address] [facility] Comment on above: Performed By: #### C MPN, LDO, FT4, TSH #### [facility] (DEFAULT) [address] [place] [address] 63222 Lymphocytes (Bld) [#/Vol] 2.39 10*3/uL Normal 0.83-3.57 [facility] Comment on above: Performed By: #### C MPN, LDO, FT4, TSH #### [facility] (DEFAULT) [address] [place] [address] 13596 Lymphocytes/100 WBC (Bld) 26.1 % Normal [facility] Comment on above: Performed By: #### C MPN, LDO, FT4, TSH #### [facility] (DEFAULT) [address] [place] [address] 39798 MCV (RBC) [Entitic vol] 90.7 fL Normal 79.0-94.[address] [facility] Comment on above: Performed By: #### C MPN, LDO, FT4, TSH #### [facility] (DEFAULT) [address] [place] [address] 26540 Mean Cell Hgb 30.7 pg Normal 26.1-33.3 [facility] Comment on above: Performed By: #### C MPN, LDO, FT4, TSH #### [facility] (DEFAULT) [address] [place] [address] 93153 Mean Cell Hgb Conc 33.8 g/dL Normal 31.9-36.5 [facility] Comment on above: Performed By: #### C MPN, LDO, FT4, TSH #### [facility] (DEFAULT) [address] [place] [address] 63324 Monocytes (Bld) [#/Vol] 0.83 10*3/uL Normal 0.24-0.93 [facility] Comment on above: Performed By: #### C MPN, LDO, FT4, TSH #### [facility] (DEFAULT) [address] [place] [address] 02713 Monocytes/100 WBC (Bld) 9.1 % Normal O [facility] Comment on above: Performed By: #### C MPN, LDO, FT4, TSH #### [facility] (DEFAULT) [address] [place] [address] 89253 Nucleated RBC 0.0 /100 WBC Normal <=0.2 [facility] Comment on above: Performed By: #### C MPN, LDO, FT4, TSH #### [facility] (DEFAULT) [address] [place] [address] 38768 Platelet mean volume (Bld) [Entitic vol] 9.6 fL Normal 8.7-12.3 [facility] Comment on above: Performed By: #### C MPN, LDO, FT4, TSH #### [facility] (DEFAULT) [address] [place] [address] 84339 Platelets (Bld) [#/Vol] 252 10*3/uL Normal 146-337 [facility] Comment on above: Performed By: #### C MPN, LDO, FT4, TSH #### [facility] (DEFAULT) [address] [place] [address] 42181 RBC (Bld) [#/Vol] 5.15 10*6/uL Normal 4.38-5.83 [facility] Comment on above: Performed By: #### C MPN, LDO, FT4, TSH #### [facility] (DEFAULT) [address] [place] [address] 91263 RBC Distribution 14.8 % High 10.9-14.[address] [facility] Comment on above: Performed By: #### C MPN, LDO, FT4, TSH #### [facility] (DEFAULT) [address] [place] [address] 69719 Segs + Bands Auto 58.7 % Normal [facility] Comment on above: Performed By: #### C MPN, LDO, FT4, TSH #### [facility] (DEFAULT) [address] [place] [address] 39343 Segs + Bands,Absolute Auto 5.37 K/uL Normal 1.57-6.19 [facility] Comment on above: Performed By: #### C MPN, LDO, FT4, TSH #### [facility] (DEFAULT) [address] [place] [address] 54477 WBC (Bld) [#/Vol] 9.15 10*3/uL Normal 3.73-10.10 [facility] Comment on above: Performed By: #### C MPN, LDO, FT4, TSH #### [facility] (DEFAULT) [address] [place] [address] 85888 COMPREHENSIVE METABOLIC PANE [facility] 06-16-2024 Albumin [Mass/Vol] 4.4 g/dL 3.5 - 5.0 g/dL [facility] ALP [Catalytic activity/Vol] 62 U/L 32 - 126 U/L [facility] ALT [Catalytic activity/Vol] 16 U/L 10 - 52 U/L [facility] Anion gap [Moles/Vol] 10 mmol/L 7 - 17 mmol/L [facility] AST [Catalytic activity/Vol] 18 U/L 10 - 39 U/L [facility] Bilirubin [Mass/Vol] 0.9 mg/dL NINF - 1.5 mg/dL [facility] Calcium [Mass/Vol] 9.4 mg/dL 8.6 - 10. 5 mg/dL [facility] Chloride [Moles/Vol] 105 mmol/L 98 - 10 8 mmol/L [facility] CO2 [Moles/Vol] 26 mmol/L 21 - 31 mmol/L [facility] Creatinine [Mass/Vol] 1.18 mg/dL 0.70 - 1.30 mg/dL [facility] eGFR, CKD-EPI, Male 64 - PINF [facility] Comment on above: Reported eGFR is bas ed on the CKD-EPI 2020 equation using creatinine, age, and sex. Glucose [Mass/Vol] 127 mg/dL High 70 - 99 mg/dL [facility] Osmolality Calc [Osmolality] 289 [facility] Potassium [Moles/Vol] 4.2 mmol/L 3.5 - 5.0 mmol/L [facility] Protein [Mass/Vol] 7.0 g/dL 6.4 - 8.3 g/dL [facility] Sodium [Moles/Vol] 137 mmol/L 135 - 145 mmol/L [facility] Urea nitrogen [Mass/Vol] 12 mg/dL 7 - 25 mg/dL [facility] Urea nitrogen/Creatinine [Mass ratio] 10 mg/mg [facility] Albumin [Mass/Vol] 4.4 g/dL Normal 3.5-5.0 [facility] Comment on above: Performed By: #### F T4, CMPN, TSH, LDO #### [facility] (DEFAULT) [address] [place] [address] 49300 ALP [Catalytic activity/Vol] 62 U/L Normal 32-126 [facility] Comment on above: Performed By: #### F T4, CMPN, TSH, LDO #### [facility] (DEFAULT) [address] [place] [address] 10607 ALT [Catalytic activity/Vol] 16 U/L Normal 10-52 [facility] Comment on above: Performed By: #### F T4, CMPN, TSH, LDO #### [facility] (DEFAULT) [address] [place] [address] 40082 Anion gap [Moles/Vol] 10 mmol/L Normal 7-17 [facility] Comment on above: Performed By: #### F T4, CMPN, TSH, LDO #### [facility] (DEFAULT) [address] [place] [address] 19509 AST [Catalytic activity/Vol] 18 U/L Normal 10-39 [facility] Comment on above: Performed By: #### F T4, CMPN, TSH, LDO #### [facility] (DEFAULT) [address] [place] [address] 69513 Bilirubin [Mass/Vol] 0.9 mg/dL Normal <1.5 [facility] Comment on above: Performed By: #### F T4, CMPN, TSH, LDO #### [facility] (DEFAULT) [address] [place] [address] 65627 Calcium [Mass/Vol] 9.4 mg/dL Normal 8.6-10.5 [facility] Comment on above: Performed By: #### F T4, CMPN, TSH, LDO #### [facility] (DEFAULT) [address] [place] [address] 42678 Chloride [Moles/Vol] 105 mmol/L Normal 98-108 [facility] Comment on above: Performed By: #### F T4, CMPN, TSH, LDO #### [facility] (DEFAULT) [address] [place] [address] 86152 CO2 [Moles/Vol] 26 mmol/L Normal 21-31 [facility] Comment on above: Performed By: #### F T4, CMPN, TSH, LDO #### [facility] (DEFAULT) [address] [place] [address] 95649 Creatinine [Mass/Vol] 1.18 mg/dL Normal 0.70-1.30 [facility] Comment on above: Performed By: #### F T4, CMPN, TSH, LDO #### [facility] (DEFAULT) [address] [place] [address] 89002 GFR/1.73 sq M.predicted among non-blacks MDRD (S/P/Bld) [Vol rate/Area] 63 mL/min/{1.73_m2} Normal >=60 [facility] Comment on above: Result Comment: Repo rted eGFR is based on the CKD-EPI 2020 equation using creatinine, age, and sex. Performed By: #### F T4, CMPN, TSH, LDO #### [facility] (DEFAULT) [address] [place] [address] 28017 Glucose [Mass/Vol] 127 mg/dL High 70-99 [facility] Comment on above: Performed By: #### F T4, CMPN, TSH, LDO #### [facility] (DEFAULT) [address] [place] [address] 62941 Osmolality [Osmolality] 289 mosm/kg Normal 278-305 [facility] Comment on above: Performed By: #### F T4, CMPN, TSH, LDO #### [facility] (DEFAULT) [address] [place] [address] 46442 Potassium [Moles/Vol] 4.2 mmol/L Normal 3.5-5.0 [facility] Comment on above: Performed By: #### F T4, CMPN, TSH, LDO #### [facility] (DEFAULT) [address] [place] [address] 00733 Protein [Mass/Vol] 7.0 g/dL Normal 6.4-8.3 [facility] Comment on above: Performed By: #### F T4, CMPN, TSH, LDO #### [facility] (DEFAULT) [address] [place] [address] 60198 Sodium [Moles/Vol] 137 mmol/L Normal 135-145 [facility] Comment on above: Performed By: #### F T4, CMPN, TSH, LDO #### [facility] (DEFAULT) [address] [place] [address] 52744 Urea nitrogen [Mass/Vol] 12 mg/dL Normal 7-25 [facility] Comment on above: Performed By: #### F T4, CMPN, TSH, LDO #### [facility] (DEFAULT) [address] [place] [address] 44158 Urea nitrogen/Creatinine [Mass ratio] 10 mg/mg Normal [facility] Comment on above: Performed By: #### F T4, CMPN, TSH, LDO #### [facility] (DEFAULT) [address] [place] [address] 84107 LACTATE DEHYDROGENASEon 05-29 LDH Lactate to pyruvate reaction [Catalytic activity/Vol] 202 U/L High 100 - 190 U/L [facility] Comment on above: Specimen slightly he molyzed. LDH results may be falsely elevated. Interpret within the clinical context. LD Total 202 U/L High 100-190 [facility] Comment on above: Result Comment: Spec imen slightly hemolyzed. LDH results may be falsely elevated. Interpret within the clinical context. Performed By: #### F T4, CMPN, TSH, LDO #### [facility] (DEFAULT) [address] [place] [address] 49965 No Panel Informationon 06-16 Interpretation and review of laboratory results Abnormal [facility] T4 FREEon 06-16-2024 Free T4 [Mass/Vol] 1.32 ng/dL 0.89 - 1. 76 ng/dL [facility] Interpretation and review of laboratory results Normal [facility] Free T4 [Mass/Vol] 1.32 ng/dL Normal 0.89-1.76 [facility] Comment on above: Performed By: #### F T4, CMPN, TSH, LDO #### [facility] (DEFAULT) [address] [place] [address] 15242 TSHon 06-16-2024 Interpretation and review of laboratory results Normal [facility] TSH Qn 2.902 m[IU]/L [facility] TSH 2.902 uIU/mL Normal 0.550-4.780 [facility] Comment on above: Performed By: #### F T4, CMPN, TSH, LDO #### [facility] (DEFAULT) [address] [place] [address] 30303 Pulmonary Visit Reporton Pulmonary Visit Report [facility] [address] [place] [address] OFFICE VISIT Date of Service: 06/03/24 MR#: [id number] Acct: [id number] Name: PETAR PENNY Rep #: [id number] : 1945 Provider: YURI Eldridge Age/Sex: 79/M [place] [facility] Status: Signed Assessment and Plan Assessment and Plan (1) Asthma-COPD overlap syndrome: Status: Chronic Comment: 81% FEV1 Plan: Stable, he does not appear to be an exacerbation of COPD today. No need for prednisone or antibiotic. Continue current maintenance medication, symptomatically controlled with the use Trelegy. He was educated on the importance of rinsing his mouth out after each use, agrees to do so moving forward. No additional testing at this time. Contact the office for any new or worsening symptoms. An acute visit and typically be arranged within 1-2 days. Follow-up in 6 months. He has already had his annual influenza vaccination. (2) Squamous cell lung cancer: Status: Chronic Qualifiers: Laterality: right Qualified Code(s): C34.91 - Malignant neoplasm of unspecified part of right bronchus or lung Comment: Status post right partial lobectomy on Keytruda Plan: Complicates exam, plan, care and prognosis. He reports that his Keytruda is going to be spaced out to every 6 weeks now instead of every 3 weeks. Per the patient's words he is 50% cured. (3) VANDANA (obstructive sleep apnea): Status: Chronic Comment: PSG 10 years ago, new his CPAP in 2019 Plan: Stable, he is using and benefiting from Pap therapy. He is quite pleased with the new machine that he received approximately 8 weeks ago. He states that he cannot sleep without it. No indication for titration study at this time. Contact the office for any new or worsening symptoms in the meantime. Follow-up in 6 months. Plan Details Follow Up: 6 Months ([facility]) HPI 6 M FU Chief Complaint: Routine follow-up HPI Comments Details: This patient presents to the office today for follow-up of his asthma/COPD overlap syndrome. He is ambulatory, currently on room air and accompanied today by his . He has not recently been seen in the ED or urgent care for any respiratory illness. He has not required any antibiotics or prednisone for any breathing problems. If you recall, this patient has a history of lung cancer and is status post partial right lobectomy. He is compliant with use of Trelegy 1 puff daily. Unfortunately, he was not aware he was supposed to be rinsing his mouth out after each use. He denies any medication side effect such sore throat or thrush. He denies the use of albuterol for rescue inhaler. He continues to experience shortness of breath on exertion. He has an occasional dry cough, denies any sputum production or hemoptysis. He denies any wheezing, chest tightness, chest pain or palpitations. He also denies any fever, chills or body aches. He continues complete smoking cessation. He reports excellent compliance with PAP therapy. He states that he cannot sleep without it. The patient reports that approximately 3 months ago his machine stopped working. He states that it took him 6 weeks to get a new machine from [facility]. He has had the new machine for approximately 6 to 8 weeks. He states that he is quite in love with the new machine. He wakes feeling rested refreshed. He is not having difficulty with dry mouth or mask leaks. He is not requiring naps or nodding off to sleep unintentionally. Unfortunately, we are not linked with his new machine. We will try to achieve this before his next follow-up visit. Intake Vital Signs 12/19/23 09:30 04/12/24 14:46 06/03/24 07:49 Height 5 ft 9 in 5 ft 9 in 5 ft 9 in Weight: 190 lb 195 lb BMI 28.0 28.8 BP 121/67 H 129/66 H Blood Pressure Location Lt brachial Lt brachial Position Sitting Sitting Respiration 18 18 Pulse 77 71 Pulse Source NIBP Monitor Temp 97.4 F L Temperature Source Temporal Artery Pulse Oximetry (%) 95 Oxygen Delivery Method room air Intake Visit Reasons: 6 M FU Chief Complaint: Follow up DME Vendor: [employer] Accompanied by: Allergies Penicillins Allergy (Verified 06/03/24 12:09) Anaphylaxis Medications ???Medication ???Instructions ???Recorded ???Confirmed ???Type omega-3 fatty acids 300 mg capsule 300 mg PO DAILY supplement 03/02/14 06/03/24 History pantoprazole 40 mg tablet,delayed 40 mg PO DAILY reflux 07/08/18 06/03/24 History release vitamin E (dl, acetate) 180 mg 400 units PO DAILY vitamin 07/08/18 06/03/24 History (400 unit) capsule aspirin 81 mg tablet,delayed 81 mg PO DAILY@0800 heart health 07/09/18 06/03/24 Rx release nitroglycerin 0.4 mg sublingual 0.4 mg sublingual Q5M PRN Chest 12/03/21 06/03/24 Rx tablet Pain #25 tabs amlodipine 10 mg tabl (more content not included)... Normal [facility] CBC AND ELECTRONIC DIFFon Basophils (Bld) [#/Vol] 0.12 10*3/uL High 0.00 - 0.09 K/uL [facility] Basophils/100 WBC (Bld) 1.5 % [facility] Differential cell count method Nom (Bld) Electronic Differential [facility] Eosinophils (Bld) [#/Vol] 0.37 10*3/uL 0.00 - 0.48 K/uL [facility] Eosinophils/100 WBC (Bld) 4.6 % [facility] Erythrocyte distribution width (RBC) [Ratio] 15.4 % High 10.9 - 14.3 % [facility] Hematocrit (Bld) [Volume fraction] 47.3 % 39.6 - 48.8 % [facility] Hemoglobin (Bld) [Mass/Vol] 15.5 g/dL 13.4 - 16.8 g/dL [facility] Immature granulocytes (Bld) [#/Vol] K/uL NINF - 0.07 K/uL [facility] Immature granulocytes/100 WBC (Bld) 0.4 % [facility] Interpretation and review of laboratory results Abnormal [facility] Lymphocytes (Bld) [#/Vol] 1.93 10*3/uL 0.83 - 3.57 K/uL [facility] Lymphocytes/100 WBC (Bld) 24.2 % [facility] MCH (RBC) [Entitic mass] 29.6 pg 26.1 - 33.3 pg [facility] MCHC (RBC) [Mass/Vol] 32.8 g/dL 31.9 - 36.5 g/dL [facility] MCV (RBC) [Entitic vol] 90.3 fL 79.0 - 94.5 fL [facility] Monocytes (Bld) [#/Vol] 0.74 10*3/uL 0.24 - 0.93 K/uL [facility] Monocytes/100 WBC (Bld) 9.3 % [facility] Neutrophils (Bld) [#/Vol] 4.78 10*3/uL 1.57 - 6.19 K/uL [facility] Nucleated RBC/100 WBC (Bld) [Ratio] 0.0 % [facility] Platelet mean volume (Bld) [Entitic vol] 9.5 fL 8.7 - 12.3 fL [facility] Platelets (Bld) [#/Vol] 224 10*3/uL 146 - 337 K/uL [facility] RBC (Bld) [#/Vol] 5.24 10*6/uL [facility] Segmented neutrophils/100 WBC (Bld) 60.0 % [facility] WBC (Bld) [#/Vol] 7.97 10*3/uL 3.73 - 10. 10 K/uL [facility] Basophils (Bld) [#/Vol] 0.12 10*3/uL High 0.00-0.09 [facility] Comment on above: Performed By: #### F T4, CMPN, TSH, LDO #### [facility] (DEFAULT) [address] [place] [address] 07488 Basophils/100 WBC (Bld) 1.5 % Normal O [facility] Comment on above: Performed By: #### F T4, CMPN, TSH, LDO #### [facility] (DEFAULT) [address] [place] [address] 20304 DIFF STATUS Electronic Differential Normal [facility] Comment on above: Performed By: #### F T4, CMPN, TSH, LDO #### [facility] (DEFAULT) [address] [place] [address] 71382 Eosinophils (Bld) [#/Vol] 0.37 10*3/uL Normal 0.00-0.48 [facility] Comment on above: Performed By: #### F T4, CMPN, TSH, LDO #### [facility] (DEFAULT) [address] [place] [address] 76495 Eosinophils/100 WBC (Bld) 4.6 % Normal [facility] Comment on above: Performed By: #### F T4, CMPN, TSH, LDO #### [facility] (DEFAULT) [address] [place] [address] 55783 Hematocrit (Bld) [Volume fraction] 47.3 % Normal 39.6-48.8 [facility] Comment on above: Performed By: #### F T4, CMPN, TSH, LDO #### [facility] (DEFAULT) [address] [place] [address] 60413 Hemoglobin (Bld) [Mass/Vol] 15.5 g/dL Normal 13.4-16.8 [facility] Comment on above: Performed By: #### F T4, CMPN, TSH, LDO #### [facility] (DEFAULT) [address] [place] [address] 44969 Immature Grans % 0.4 % Normal [facility] Comment on above: Performed By: #### F T4, CMPN, TSH, LDO #### [facility] (DEFAULT) [address] [place] [address] 69442 Immature Grans Absolute < Normal <=0.[address] [facility] Comment on above: Performed By: #### F T4, CMPN, TSH, LDO #### [facility] (DEFAULT) [address] [place] [address] 03157 Lymphocytes (Bld) [#/Vol] 1.93 10*3/uL Normal 0.83-3.57 [facility] Comment on above: Performed By: #### F T4, CMPN, TSH, LDO #### [facility] (DEFAULT) [address] [place] [address] 29193 Lymphocytes/100 WBC (Bld) 24.2 % Normal [facility] Comment on above: Performed By: #### F T4, CMPN, TSH, LDO #### [facility] (DEFAULT) [address] [place] [address] 79236 MCV (RBC) [Entitic vol] 90.3 fL Normal 79.0-94.[address] [facility] Comment on above: Performed By: #### F T4, CMPN, TSH, LDO #### [facility] (DEFAULT) [address] [place] [address] 62061 Mean Cell Hgb 29.6 pg Normal 26.1-33.3 [facility] Comment on above: Performed By: #### F T4, CMPN, TSH, LDO #### [facility] (DEFAULT) [address] [place] [address] 32065 Mean Cell Hgb Conc 32.8 g/dL Normal 31.9-36.5 [facility] Comment on above: Performed By: #### F T4, CMPN, TSH, LDO #### [facility] (DEFAULT) [address] [address] [place] [address] 38192 Monocytes (Bld) [#/Vol] 0.74 10*3/uL Normal 0.24-0.93 [facility] Comment on above: Performed By: #### F T4, CMPN, TSH, LDO #### [facility] (DEFAULT) [address] [place] [address] 28409 Monocytes/100 WBC (Bld) 9.3 % Normal O [facility] Comment on above: Performed By: #### F T4, CMPN, TSH, LDO #### [facility] (DEFAULT) [address] [place] [address] 83833 Nucleated RBC 0.0 /100 WBC Normal <=0.2 [facility] Comment on above: Performed By: #### F T4, CMPN, TSH, LDO #### [facility] (DEFAULT) [address] [place] [address] 52203 Platelet mean volume (Bld) [Entitic vol] 9.5 fL Normal 8.7-12.3 [facility] Comment on above: Performed By: #### F T4, CMPN, TSH, LDO #### [facility] (DEFAULT) [address] [address] Platelets (Bld) [#/Vol] 224 10*3/uL Normal 146-337 [facility] Comment on above: Performed By: #### F T4, CMPN, TSH, LDO #### [facility] (DEFAULT) [address] [address] RBC (Bld) [#/Vol] 5.24 10*6/uL Normal 4.38-5.83 [facility] Comment on above: Performed By: #### F T4, CMPN, TSH, LDO #### [facility] (DEFAULT) [address] [address] RBC Distribution 15.4 % High 10.9-14.[address] [facility] Comment on above: Performed By: #### F T4, CMPN, TSH, LDO #### [facility] (DEFAULT) [address] [address] Segs + Bands Auto 60.0 % Normal [facility] Comment on above: Performed By: #### F T4, CMPN, TSH, LDO #### [facility] (DEFAULT) [address] [place] [address] Segs + Bands,Absolute Auto 4.78 K/uL Normal 1.57-6.19 [facility] Comment on above: Performed By: #### F T4, CMPN, TSH, LDO #### [facility] (DEFAULT) [address] [place] [address] 51490 WBC (Bld) [#/Vol] 7.97 10*3/uL Normal 3.73-10.10 [facility] Comment on above: Performed By: #### F T4, CMPN, TSH, LDO #### [facility] (DEFAULT) [address] [place] [address] 34813 COMPREHENSIVE METABOLIC PANE Wilber 05-24-2024 Albumin [Mass/Vol] 4.4 g/dL 3.5 - 5.0 g/dL [facility] ALP [Catalytic activity/Vol] 60 U/L 32 - 126 U/L [facility] ALT [Catalytic activity/Vol] 16 U/L 10 - 52 U/L [facility] Anion gap [Moles/Vol] 11 mmol/L 7 - 17 mmol/L [facility] AST [Catalytic activity/Vol] 17 U/L 10 - 39 U/L [facility] Bilirubin [Mass/Vol] 1.1 mg/dL NINF - 1.5 mg/dL [facility] Calcium [Mass/Vol] 9.5 mg/dL 8.6 - 10. 5 mg/dL [facility] Chloride [Moles/Vol] 103 mmol/L 98 - 10 8 mmol/L [facility] CO2 [Moles/Vol] 28 mmol/L 21 - 31 mmol/L [facility] Creatinine [Mass/Vol] 1.10 mg/dL 0.70 - 1.30 mg/dL [facility] eGFR, CKD-EPI, Male 70 - PINF [facility] Comment on above: Reported eGFR is bas ed on the CKD-EPI 2020 equation using creatinine, age, and sex. Glucose [Mass/Vol] 109 mg/dL High 70 - 99 mg/dL [facility] Interpretation and review of laboratory results Abnormal [facility] Osmolality Calc [Osmolality] 289 [facility] Potassium [Moles/Vol] 4.6 mmol/L 3.5 - 5.0 mmol/L [facility] Protein [Mass/Vol] 7.1 g/dL 6.4 - 8.3 g/dL [facility] Sodium [Moles/Vol] 137 mmol/L 135 - 145 mmol/L [facility] Urea nitrogen [Mass/Vol] 12 mg/dL 7 - 25 mg/dL [facility] Urea nitrogen/Creatinine [Mass ratio] 11 mg/mg [facility] Albumin [Mass/Vol] 4.4 g/dL Normal 3.5-5.0 [facility] Comment on above: Performed By: #### C MPN, LDO, FT4, TSH #### [facility] (DEFAULT) [address] [place] [address] 50594 ALP [Catalytic activity/Vol] 60 U/L Normal 32-126 [facility] Comment on above: Performed By: #### C MPN, LDO, FT4, TSH #### [facility] (DEFAULT) [address] [place] [address] 20648 ALT [Catalytic activity/Vol] 16 U/L Normal 10-52 [facility] Comment on above: Performed By: #### C MPN, LDO, FT4, TSH #### [facility] (DEFAULT) [address] [place] [address] 24133 Anion gap [Moles/Vol] 11 mmol/L Normal 7-17 [facility] Comment on above: Performed By: #### C MPN, LDO, FT4, TSH #### [facility] (DEFAULT) [address] [place] [address] 78157 AST [Catalytic activity/Vol] 17 U/L Normal 10-39 [facility] Comment on above: Performed By: #### C MPN, LDO, FT4, TSH #### [facility] (DEFAULT) [address] [place] [address] 77530 Bilirubin [Mass/Vol] 1.1 mg/dL Normal <1.5 [facility] Comment on above: Performed By: #### C MPN, LDO, FT4, TSH #### [facility] (DEFAULT) [address] [place] [address] 50373 Calcium [Mass/Vol] 9.5 mg/dL Normal 8.6-10.5 [facility] Comment on above: Performed By: #### C MPN, LDO, FT4, TSH #### [facility] (DEFAULT) [address] [place] [address] 88520 Chloride [Moles/Vol] 103 mmol/L Normal 98-108 [facility] Comment on above: Performed By: #### C MPN, LDO, FT4, TSH #### [facility] (DEFAULT) [address] [place] [address] 71548 CO2 [Moles/Vol] 28 mmol/L Normal 21-31 [facility] Comment on above: Performed By: #### C MPN, LDO, FT4, TSH #### [facility] (DEFAULT) [address] [place] [address] 36757 Creatinine [Mass/Vol] 1.10 mg/dL Normal 0.70-1.30 [facility] Comment on above: Performed By: #### C MPN, LDO, FT4, TSH #### [facility] (DEFAULT) [address] [place] [address] 40037 GFR/1.73 sq M.predicted among non-blacks MDRD (S/P/Bld) [Vol rate/Area] 69 mL/min/{1.73_m2} Normal >=60 [facility] Comment on above: Result Comment: Repo rted eGFR is based on the CKD-EPI 2020 equation using creatinine, age, and sex. Performed By: #### C MPN, LDO, FT4, TSH #### [facility] (DEFAULT) [address] [place] [address] 02018 Glucose [Mass/Vol] 109 mg/dL High 70-99 [facility] Comment on above: Performed By: #### C MPN, LDO, FT4, TSH #### [facility] (DEFAULT) [address] [place] [address] 55108 Osmolality [Osmolality] 289 mosm/kg Normal 278-305 [facility] Comment on above: Performed By: #### C MPN, LDO, FT4, TSH #### [facility] (DEFAULT) [address] [place] [address] 00876 Potassium [Moles/Vol] 4.6 mmol/L Normal 3.5-5.0 [facility] Comment on above: Performed By: #### C MPN, LDO, FT4, TSH #### [facility] (DEFAULT) [address] [place] [address] 61406 Protein [Mass/Vol] 7.1 g/dL Normal 6.4-8.3 [facility] Comment on above: Performed By: #### C MPN, LDO, FT4, TSH #### [facility] (DEFAULT) [address] [place] [address] 61782 Sodium [Moles/Vol] 137 mmol/L Normal 135-145 [facility] Comment on above: Performed By: #### C MPN, LDO, FT4, TSH #### [facility] (DEFAULT) [address] [place] [address] 60473 Urea nitrogen [Mass/Vol] 12 mg/dL Normal 7-25 [facility] Comment on above: Performed By: #### C MPN, LDO, FT4, TSH #### [facility] (DEFAULT) [address] [place] [address] 29939 Urea nitrogen/Creatinine [Mass ratio] 11 mg/mg Normal [facility] Comment on above: Performed By: #### C MPN, LDO, FT4, TSH #### [facility] (DEFAULT) [address] [place] [address] 97819 LACTATE DEHYDROGENASEon 10-2 4 Interpretation and review of laboratory results Normal [facility] LDH Lactate to pyruvate reaction [Catalytic activity/Vol] 187 U/L 100 - 190 U/L [facility] LD Total 187 U/L Normal 100-190 [facility] Comment on above: Performed By: #### C MPN, LDO, FT4, TSH #### [facility] (DEFAULT) [address] [place] [address] 29350 No Panel Informationon 05-24 [facility] T4 FREEon 05-24-2024 Free T4 [Mass/Vol] 1.51 ng/dL 0.89 - 1. 76 ng/dL [facility] Interpretation and review of laboratory results Normal [facility] Free T4 [Mass/Vol] 1.51 ng/dL Normal 0.89-1.76 [facility] Comment on above: Performed By: #### C MPN, LDO, FT4, TSH #### [facility] (DEFAULT) [address] [place] [address] TSHon 05-24-2024 Interpretation and review of laboratory results Normal [facility] TSH Qn 2.225 m[IU]/L [facility] TSH 2.225 uIU/mL Normal 0.550-4.780 [facility] Comment on above: Performed By: #### C MPN, LDO, FT4, TSH #### [facility] (DEFAULT) [address] [place] [address] 04473 CBC AND ELECTRONIC DIFFon Basophils (Bld) [#/Vol] 0.15 10*3/uL High 0.00 - 0.09 K/uL [facility] Basophils/100 WBC (Bld) 2.1 % [facility] Differential cell count method Nom (Bld) Electronic Differential [facility] Eosinophils (Bld) [#/Vol] 0.22 10*3/uL 0.00 - 0.48 K/uL [facility] Eosinophils/100 WBC (Bld) 3.0 % [facility] Erythrocyte distribution width (RBC) [Ratio] 14.6 % High 10.9 - 14.3 % [facility] Hematocrit (Bld) [Volume fraction] 46.9 % 39.6 - 48.8 % [facility] Hemoglobin (Bld) [Mass/Vol] 15.8 g/dL 13.4 - 16.8 g/dL [facility] Immature granulocytes (Bld) [#/Vol] K/uL NINF - 0.07 K/uL [facility] Immature granulocytes/100 WBC (Bld) 0.4 % [facility] Interpretation and review of laboratory results Abnormal [facility] Lymphocytes (Bld) [#/Vol] 1.82 10*3/uL 0.83 - 3.57 K/uL [facility] Lymphocytes/100 WBC (Bld) 24.9 % [facility] MCH (RBC) [Entitic mass] 30.0 pg 26.1 - 33.3 pg [facility] MCHC (RBC) [Mass/Vol] 33.7 g/dL 31.9 - 36.5 g/dL [facility] MCV (RBC) [Entitic vol] 89.2 fL 79.0 - 94.5 fL [facility] Monocytes (Bld) [#/Vol] 0.65 10*3/uL 0.24 - 0.93 K/uL [facility] Monocytes/100 WBC (Bld) 8.9 % [facility] Neutrophils (Bld) [#/Vol] 4.44 10*3/uL 1.57 - 6.19 K/uL [facility] Nucleated RBC/100 WBC (Bld) [Ratio] 0.0 % [facility] Platelet mean volume (Bld) [Entitic vol] 9.4 fL 8.7 - 12.3 fL [facility] Platelets (Bld) [#/Vol] 256 10*3/uL 146 - 337 K/uL [facility] RBC (Bld) [#/Vol] 5.26 10*6/uL [facility] Segmented neutrophils/100 WBC (Bld) 60.7 % [facility] WBC (Bld) [#/Vol] 7.31 10*3/uL 3.73 - 10. 10 K/uL [facility] Basophils (Bld) [#/Vol] 0.15 10*3/uL High 0.00-0.09 [facility] Comment on above: Performed By: #### F T4, CMPN, TSH, LDO #### [facility] (DEFAULT) [address] [place] [address] 36979 Basophils/100 WBC (Bld) 2.1 % Normal O [facility] Comment on above: Performed By: #### F T4, CMPN, TSH, LDO #### [facility] (DEFAULT) [address] [place] [address] 29111 DIFF STATUS Electronic Differential Normal [facility] Comment on above: Performed By: #### F T4, CMPN, TSH, LDO #### [facility] (DEFAULT) [address] [place] [address] 33006 Eosinophils (Bld) [#/Vol] 0.22 10*3/uL Normal 0.00-0.48 [facility] Comment on above: Performed By: #### F T4, CMPN, TSH, LDO #### [facility] (DEFAULT) [address] [place] [address] 00754 Eosinophils/100 WBC (Bld) 3.0 % Normal [facility] Comment on above: Performed By: #### F T4, CMPN, TSH, LDO #### [facility] (DEFAULT) [address] [place] [address] 71713 Hematocrit (Bld) [Volume fraction] 46.9 % Normal 39.6-48.8 [facility] Comment on above: Performed By: #### F T4, CMPN, TSH, LDO #### [facility] (DEFAULT) [address] [place] [address] 65065 Hemoglobin (Bld) [Mass/Vol] 15.8 g/dL Normal 13.4-16.8 [facility] Comment on above: Performed By: #### F T4, CMPN, TSH, LDO #### [facility] (DEFAULT) [address] [place] [address] 46590 Immature Grans % 0.4 % Normal [facility] Comment on above: Performed By: #### F T4, CMPN, TSH, LDO #### [facility] (DEFAULT) [address] [place] [address] 68561 Immature Grans Absolute < Normal <=0.[address] [facility] Comment on above: Performed By: #### F T4, CMPN, TSH, LDO #### [facility] (DEFAULT) [address] [place] [address] 70958 Lymphocytes (Bld) [#/Vol] 1.82 10*3/uL Normal 0.83-3.57 [facility] Comment on above: Performed By: #### F T4, CMPN, TSH, LDO #### [facility] (DEFAULT) [address] [place] [address] 05324 Lymphocytes/100 WBC (Bld) 24.9 % Normal [facility] Comment on above: Performed By: #### F T4, CMPN, TSH, LDO #### [facility] (DEFAULT) [address] [place] [address] 01840 MCV (RBC) [Entitic vol] 89.2 fL Normal 79.0-94.[address] [facility] Comment on above: Performed By: #### F T4, CMPN, TSH, LDO #### [facility] (DEFAULT) [address] [place] [address] 81415 Mean Cell Hgb 30.0 pg Normal 26.1-33.3 [facility] Comment on above: Performed By: #### F T4, CMPN, TSH, LDO #### [facility] (DEFAULT) [address] [place] [address] 64713 Mean Cell Hgb Conc 33.7 g/dL Normal 31.9-36.5 [facility] Comment on above: Performed By: #### F T4, CMPN, TSH, LDO #### [facility] (DEFAULT) [address] [place] [address] 40367 Monocytes (Bld) [#/Vol] 0.65 10*3/uL Normal 0.24-0.93 [facility] Comment on above: Performed By: #### F T4, CMPN, TSH, LDO #### [facility] (DEFAULT) [address] [place] [address] 75706 Monocytes/100 WBC (Bld) 8.9 % Normal O [facility] Comment on above: Performed By: #### F T4, CMPN, TSH, LDO #### [facility] (DEFAULT) [address] [place] [address] 96378 Nucleated RBC 0.0 /100 WBC Normal <=0.2 [facility] Comment on above: Performed By: #### F T4, CMPN, TSH, LDO #### [facility] (DEFAULT) [address] [place] [address] 69198 Platelet mean volume (Bld) [Entitic vol] 9.4 fL Normal 8.7-12.3 [facility] Comment on above: Performed By: #### F T4, CMPN, TSH, LDO #### [facility] (DEFAULT) [address] [place] [address] 11195 Platelets (Bld) [#/Vol] 256 10*3/uL Normal 146-337 [facility] Comment on above: Performed By: #### F T4, CMPN, TSH, LDO #### [facility] (DEFAULT) [address] [place] [address] 16956 RBC (Bld) [#/Vol] 5.26 10*6/uL Normal 4.38-5.83 [facility] Comment on above: Performed By: #### F T4, CMPN, TSH, LDO #### [facility] (DEFAULT) [address] [place] [address] 88549 RBC Distribution 14.6 % High 10.9-14.[address] [facility] Comment on above: Performed By: #### F T4, CMPN, TSH, LDO #### [facility] (DEFAULT) [address] [place] [address] 84218 Segs + Bands Auto 60.7 % Normal [facility] Comment on above: Performed By: #### F T4, CMPN, TSH, LDO #### [facility] (DEFAULT) [address] [place] [address] 47825 Segs + Bands,Absolute Auto 4.44 K/uL Normal 1.57-6.19 [facility] Comment on above: Performed By: #### F T4, CMPN, TSH, LDO #### [facility] (DEFAULT) [address] [place] [address] 74831 WBC (Bld) [#/Vol] 7.31 10*3/uL Normal 3.73-10.10 [facility] Comment on above: Performed By: #### F T4, CMPN, TSH, LDO #### [facility] (DEFAULT) [address] [place] [address] 80928 COMPREHENSIVE METABOLIC PANE Wilber 04-28-2024 Albumin [Mass/Vol] 4.5 g/dL 3.5 - 5.0 g/dL [facility] ALP [Catalytic activity/Vol] 70 U/L 32 - 126 U/L [facility] ALT [Catalytic activity/Vol] 15 U/L 10 - 52 U/L [facility] Anion gap [Moles/Vol] 11 mmol/L 7 - 17 mmol/L [facility] AST [Catalytic activity/Vol] 16 U/L 10 - 39 U/L [facility] Bilirubin [Mass/Vol] 0.9 mg/dL NINF - 1.5 mg/dL [facility] Calcium [Mass/Vol] 9.6 mg/dL 8.6 - 10. 5 mg/dL [facility] Chloride [Moles/Vol] 105 mmol/L 98 - 10 8 mmol/L [facility] CO2 [Moles/Vol] 26 mmol/L 21 - 31 mmol/L [facility] Creatinine [Mass/Vol] 1.06 mg/dL 0.70 - 1.30 mg/dL [facility] eGFR, CKD-EPI, Male 73 - PINF [facility] Comment on above: Reported eGFR is bas ed on the CKD-EPI 2020 equation using creatinine, age, and sex. Glucose [Mass/Vol] 93 mg/dL 70 - 99 mg/dL [facility] Osmolality Calc [Osmolality] 288 [facility] Potassium [Moles/Vol] 4.0 mmol/L 3.5 - 5.0 mmol/L [facility] Protein [Mass/Vol] 7.4 g/dL 6.4 - 8.3 g/dL [facility] Sodium [Moles/Vol] 138 mmol/L 135 - 145 mmol/L [facility] Urea nitrogen [Mass/Vol] 11 mg/dL 7 - 25 mg/dL [facility] Urea nitrogen/Creatinine [Mass ratio] 10 mg/mg [facility] Albumin [Mass/Vol] 4.5 g/dL Normal 3.5-5.0 [facility] Comment on above: Performed By: #### C MPN, LDO, FT4, TSH #### [facility] (DEFAULT) [address] [place] [address] ALP [Catalytic activity/Vol] 70 U/L Normal 32-126 [facility] Comment on above: Performed By: #### C MPN, LDO, FT4, TSH #### [facility] (DEFAULT) [address] [place] [id number] ALT [Catalytic activity/Vol] 15 U/L Normal 10-52 [facility] Comment on above: Performed By: #### C MPN, LDO, FT4, TSH #### [facility] (DEFAULT) [address] [place] [address] 28381 Anion gap [Moles/Vol] 11 mmol/L Normal 7-17 [facility] Comment on above: Performed By: #### C MPN, LDO, FT4, TSH #### [facility] (DEFAULT) [address] [place] [address] 61127 AST [Catalytic activity/Vol] 16 U/L Normal 10-39 [facility] Comment on above: Performed By: #### C MPN, LDO, FT4, TSH #### [facility] (DEFAULT) [address] [place] [address] 55135 Bilirubin [Mass/Vol] 0.9 mg/dL Normal <1.5 [facility] Comment on above: Performed By: #### C MPN, LDO, FT4, TSH #### [facility] (DEFAULT) [address] [place] [address] 52978 Calcium [Mass/Vol] 9.6 mg/dL Normal 8.6-10.5 [facility] Comment on above: Performed By: #### C MPN, LDO, FT4, TSH #### [facility] (DEFAULT) [address] [place] [address] 61943 Chloride [Moles/Vol] 105 mmol/L Normal 98-108 [facility] Comment on above: Performed By: #### C MPN, LDO, FT4, TSH #### [facility] (DEFAULT) [address] [place] [address] 74110 CO2 [Moles/Vol] 26 mmol/L Normal 21-31 [facility] Comment on above: Performed By: #### C MPN, LDO, FT4, TSH #### [facility] (DEFAULT) [address] [place] [address] 06464 Creatinine [Mass/Vol] 1.06 mg/dL Normal 0.70-1.30 [facility] Comment on above: Performed By: #### C MPN, LDO, FT4, TSH #### [facility] (DEFAULT) [address] [place] [address] 49753 GFR/1.73 sq M.predicted among non-blacks MDRD (S/P/Bld) [Vol rate/Area] 72 mL/min/{1.73_m2} Normal >=60 [facility] Comment on above: Result Comment: Repo rted eGFR is based on the CKD-EPI 2020 equation using creatinine, age, and sex. Performed By: #### C MPN, LDO, FT4, TSH #### [facility] (DEFAULT) [address] [place] [address] 11089 Glucose [Mass/Vol] 93 mg/dL Normal 70-99 [facility] Comment on above: Performed By: #### C MPN, LDO, FT4, TSH #### [facility] (DEFAULT) [address] [place] [address] 46404 Osmolality [Osmolality] 288 mosm/kg Normal 278-305 [facility] Comment on above: Performed By: #### C MPN, LDO, FT4, TSH #### [facility] (DEFAULT) [address] [place] [address] 71674 Potassium [Moles/Vol] 4.0 mmol/L Normal 3.5-5.0 [facility] Comment on above: Performed By: #### C MPN, LDO, FT4, TSH #### [facility] (DEFAULT) [address] [place] [address] 66575 Protein [Mass/Vol] 7.4 g/dL Normal 6.4-8.3 [facility] Comment on above: Performed By: #### C MPN, LDO, FT4, TSH #### [facility] (DEFAULT) [address] [place] [address] 98045 Sodium [Moles/Vol] 138 mmol/L Normal 135-145 [facility] Comment on above: Performed By: #### C MPN, LDO, FT4, TSH #### [facility] (DEFAULT) [address] [place] [address] 36722 Urea nitrogen [Mass/Vol] 11 mg/dL Normal 7-25 [facility] Comment on above: Performed By: #### C MPN, LDO, FT4, TSH #### [facility] (DEFAULT) [address] [place] [address] Urea nitrogen/Creatinine [Mass ratio] 10 mg/mg Normal [facility] Comment on above: Performed By: #### C MPN, LDO, FT4, TSH #### [facility] (DEFAULT) [address] [place] [address] 55368 LACTATE DEHYDROGENASEon 10 Interpretation and review of laboratory results Normal [facility] LDH Lactate to pyruvate reaction [Catalytic activity/Vol] 180 U/L 100 - 190 U/L [facility] LD Total 180 U/L Normal 100-190 [facility] Comment on above: Performed By: #### C MPN, LDO, FT4, TSH #### [facility] (DEFAULT) [address] [place] [address] 81707 No Panel Informationon 04-28 [facility] T4 FREEon 04-28-2024 Free T4 [Mass/Vol] 1.29 ng/dL 0.89 - 1. 76 ng/dL [facility] Interpretation and review of laboratory results Normal [facility] Free T4 [Mass/Vol] 1.29 ng/dL Normal 0.89-1.76 [facility] Comment on above: Performed By: #### C MPN, LDO, FT4, TSH #### [facility] (DEFAULT) [address] [place] [address] TSHon 04-28-2024 Interpretation and review of laboratory results Normal [facility] TSH Qn 4.000 m[IU]/L [facility] TSH 4.000 uIU/mL Normal 0.550-4.780 [facility] Comment on above: Performed By: #### C MPN, LDO, FT4, TSH #### [facility] (DEFAULT) [address] [place] [address] CT CHEST WITH CONTR[address] CT CHEST WITH CONTRAST ADDENDUM #1 EXAM: CT CHEST WITH CONTRAST COMPARISON: 03/10/2024 CLINICAL INDICATIONS: Lung cancer restaging - on active treatment TECHNIQUE: IV contrast enhanced axial CT images of the chest 5 mm with 1 mm contiguous high-resolution, coronal MIP and sagittal MPR series. FINDINGS: Lungs and Pleura: Status post right upper lobectomy. Stable subpleural nodules in the left lower lobe measuring 4 x 3 mm (3-183) and in the left upper lobe measuring 3 x 3 mm (3-291). No new or enlarging pulmonary nodules. Moderate emphysema. Stable subpleural reticular opacities in the bilateral lower lobes, right greater than left, suggesting mild fibrotic changes. Interval resolution of patchy groundglass opacities in the anterior left upper lobe. No consolidation. Continued slight interval decrease in trace pleural fluid.. Tracheobronchial system: No abnormality. Mediastinum/Leni: No mediastinal or hilar lymphadenopathy. Axilla and Supraclavicular Region: No axillary or supraclavicular lymphadenopathy. Cardiovascular: Heart size is within normal limits. No pericardial effusion. Moderate atherosclerotic calcification of the thoracic aorta. The thoracic aorta, aortic arch vessels, and pulmonary arteries are normal in caliber. Extensive multivessel coronary artery calcification. 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 Upper Abdomen: Punctate nonobstructing stone in the right kidney. Extensive atherosclerotic calcification of the visualized portion of the abdominal aorta. Bones and Soft Tissue: Multilevel degenerative changes. No acute osseous findings. No suspicious lytic or blastic osseous lesions. ADDENDUM: Rebekah Newell M.D. This report has been electronically signed and verified by the Radiologist whose name is printed above. / end of section - ORIGINAL REPORT EXAM: CT CHEST WITH CONTRAST COMPARISON: 03/10/2024 CLINICAL INDICATIONS: Lung cancer restaging - on active treatment TECHNIQUE: IV contrast enhanced axial CT images of the chest 5 mm with 1 mm contiguous high-resolution, coronal MIP and sagittal MPR series. FINDINGS: Lungs and Pleura: Status post right upper lobectomy. Stable subpleural nodules in the left lower lobe measuring 4 x 3 mm (3-183) and in the left upper lobe measuring 3 x 3 mm (3-291). No new or enlarging pulmonary nodules. Moderate emphysema. Stable subpleural reticular opacities in the bilateral lower lobes, right greater than left, suggesting mild fibrotic changes. Interval resolution of patchy groundglass opacities in the anterior left upper lobe. No consolidation. No pleural fluid. Tracheobronchial system: No abnormality. Mediastinum/Leni: No mediastinal or hilar lymphadenopathy. Axilla and Supraclavicular Region: No axillary or supraclavicular lymphadenopathy. Cardiovascular: Heart size is within normal limits. No pericardial effusion. Moderate atherosclerotic calcification of the thoracic aorta. The thoracic aorta, aortic arch vessels, and pulmonary arteries are normal in caliber. Extensive multivessel coronary artery calcification. 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 Upper Abdomen: Punctate nonobstructing stone in the right kidney. Extensive atherosclerotic calcification of the visualized portion of the abdominal aorta. Bones and Soft Tissue: Multilevel degenerative changes. No acute osseous findings. No suspicious lytic or blastic osseous lesions. IMPRESSION: 1. Status post right upper lobectomy. Stable subcentimeter subpleural nodules in the left lung. No new or enlarging pulmonary nodules. 2. Interval resolution of patchy groundglass opacities in the left upper lobe. No new consolidation. 3. Continued slight interval decrease in trace pleural fluid.. Rebekah Newell M.D. This report has been electronically signed and verified by the Radiologist whose name is printed above. This report contains privileged and confidential information and is intended solely for the use of the individual or entity to which it is addressed. If you are not the intended recipient of this report, you are hereby notified that any copying, distribution, dissemination or action taken in relation to the contents of this report is strictly prohibited and may be unlawful. If you have received this report in error, please notify the sender immediately at [phone] and permanently delete the original report and destroy any copies or printouts. --------- IMPRESSION: 1. Status post right upper lobectomy. Stable subcentimeter subpleural nodules in the left lung. No new or enlarging pulmonary nodules. 2. Interval resolution of p (more content not included)... Normal [facility] CT Chest W contrast Aries Addendum by Tiffanie Newell MD on 04/21/2024 7:31 PM EDT ADDENDUM #1 EXAM: CT CHEST WITH CONTRAST COMPARISON: 03/10/2024 CLINICAL INDICATIONS: Lung cancer restaging - on active treatment TECHNIQUE: IV contrast enhanced axial CT images of the chest 5 mm with 1 mm contiguous high-resolution, coronal MIP and sagittal MPR series. FINDINGS: Lungs and Pleura: Status post right upper lobectomy. Stable subpleural nodules in the left lower lobe measuring 4 x 3 mm (3-183) and in the left upper lobe measuring 3 x 3 mm (3-291). No new or enlarging pulmonary nodules. Moderate emphysema. Stable subpleural reticular opacities in the bilateral lower lobes, right greater than left, suggesting mild fibrotic changes. Interval resolution of patchy groundglass opacities in the anterior left upper lobe. No consolidation. Continued slight interval decrease in trace pleural fluid.. Tracheobronchial system: No abnormality. Mediastinum/Leni: No mediastinal or hilar lymphadenopathy. Axilla and Supraclavicular Region: No axillary or supraclavicular lymphadenopathy. Cardiovascular: Heart size is within normal limits. No pericardial effusion. Moderate atherosclerotic calcification of the thoracic aorta. The thoracic aorta, aortic arch vessels, and pulmonary arteries are normal in caliber. Extensive multivessel coronary artery calcification. 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 Upper Abdomen: Punctate nonobstructing stone in the right kidney. Extensive atherosclerotic calcification of the visualized portion of the abdominal aorta. Bones and Soft Tissue: Multilevel degenerative changes. No acute osseous findings. No suspicious lytic or blastic osseous lesions. ADDENDUM: Rebekah Newell M.D. This report has been electronically signed and verified by the Radiologist whose name is printed above. / end of section - [facility] IMPRESSION: 1. Status post right upper lobectomy. Stable subcentimeter subpleural nodules in the left lung. No new or enlarging pulmonary nodules. 2. Interval resolution of patchy groundglass opacities in the left upper lobe. No new consolidation. 3. Continued slight interval decrease in trace pleural fluid.. Rebekah Newell M.D. This report has been electronically signed and verified by the Radiologist whose name is printed above. This report contains privileged and confidential information and is intended solely for the use of the individual or entity to which it is addressed. If you are not the intended recipient of this report, you are hereby notified that any copying, distribution, dissemination or action taken in relation to the contents of this report is strictly prohibited and may be unlawful. If you have received this report in error, please notify the sender immediately at [phone] and permanently delete the original report and destroy any copies or printouts. --------- IMPRESSION: 1. Status post right upper lobectomy. Stable subcentimeter subpleural nodules in the left lung. No new or enlarging pulmonary nodules. 2. Interval resolution of patchy groundglass opacities in the left upper lobe. No new consolidation. Rebekah Newell M.D. This report has been electronically signed and verified by the Radiologist whose name is printed above. This report contains privileged and confidential information and is intended solely for the use of the individual or entity to which it is addressed. If you are not the intended recipient of this report, you are hereby notified that any copying, distribution, dissemination or action taken in relation to the contents of this report is strictly prohibited and may be unlawful. If you have received this report in error, please notify the sender immediately at [phone] and permanently delete the original report and destroy any copies or printouts. RADIOLOGY ORIGINAL REPORT EXAM: CT CHEST WITH CONTRAST COMPARISON: 03/10/2024 CLINICAL INDICATIONS: Lung cancer restaging - on active treatment TECHNIQUE: IV contrast enhanced axial CT images of the chest 5 mm with 1 mm contiguous high-resolution, coronal MIP and sagittal MPR series. FINDINGS: Lungs and Pleura: Status post right upper lobectomy. Stable subpleural nodules in the left lower lobe measuring 4 x 3 mm (3-183) and in the left upper lobe measuring 3 x 3 mm (3-291). No new or enlarging pulmonary nodules. Moderate emphysema. Stable subpleural reticular opacities in the bilateral lower lobes, right greater than left, suggesting mild fibrotic changes. Interval resolution of patchy groundglass opacities in the anterior left upper lobe. No consolidation. No pleural fluid. Tracheobronchial system: No abnormality. Mediastinum/Leni: No mediastinal or hilar lymphadenopathy. Axilla and Supraclavicular Region: No axillary or supraclavicular lymphadenopathy. Cardiovascular: Heart size is within normal limits. No pericardial effusion. Moderate atherosclerotic calcification of the thoracic aorta. The thoracic aorta, aortic arch vessels, and pulmonary arteries are normal in caliber. Extensive multivessel coronary artery calcification. 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 Upper Abdomen: Punctate nonobstructing stone in the right kidney. Extensive atherosclerotic calcification of the visualized portion of the abdominal aorta. Bones and Soft Tissue: Multilevel degenerative changes. No acute osseous findings. No suspicious lytic or blastic osseous lesions. RADIOLOGY Rebekah Newell MD - 04/21/2024 ORIGINAL REPORT EXAM: CT CHEST WITH CONTRAST COMPARISON: 03/10/2024 CLINICAL INDICATIONS: Lung cancer restaging - on active treatment TECHNIQUE: IV contrast enhanced axial CT images of the chest 5 mm with 1 mm contiguous high-resolution, coronal MIP and sagittal MPR series. FINDINGS: Lungs and Pleura: Status post right upper lobectomy. Stable subpleural nodules in the left lower lobe measuring 4 x 3 mm (3-183) and in the left upper lobe measuring 3 x 3 mm (3-291). No new or enlarging pulmonary nodules. Moderate emphysema. Stable subpleural reticular opacities in the bilateral lower lobes, right greater than left, suggesting mild fibrotic changes. Interval resolution of patchy groundglass opacities in the anterior left upper lobe. No consolidation. No pleural fluid. Tracheobronchial system: No abnormality. Mediastinum/Leni: No mediastinal or hilar lymphadenopathy. Axilla and Supraclavicular Region: No axillary or supraclavicular lymphadenopathy. Cardiovascular: Heart size is within normal limits. No pericardial effusion. Moderate atherosclerotic calcification of the thoracic aorta. The thoracic aorta, aortic arch vessels, and pulmonary arteries are normal in caliber. Extensive multivessel coronary artery calcification. 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 Upper Abdomen: Punctate nonobstructing stone in the right kidney. Extensive atherosclerotic calcification of the visualized portion of the abdominal aorta. Bones and Soft Tissue: Multilevel degenerative changes. No acute osseous findings. No suspicious lytic or blastic osseous lesions. IMPRESSION IMPRESSION: 1. Status post right upper lobectomy. Stable subcentimeter subpleural nodules in the left lung. No new or enlarging pulmonary nodules. 2. Interval resolution of patchy groundglass opacities in the left upper lobe. No new consolidation. 3. Continued slight interval decrease in trace pleural fluid.. Rebekah Newell M.D. This report has been electronically signed and verified by the Radiologist whose name is printed above. This report contains privileged and confidential information and is intended solely for the use of the individual or entity to which it is addressed. If you are not the intended recipient of this report, you are hereby notified that any copying, distribution, dissemination or action taken in relation to the contents of this report is strictly prohibited and may be unlawful. If you have received this report in error, please notify the sender immediately at [phone] and permanently delete the original report and destroy any copies or printouts. ------ --- IMPRESSION: 1. Status post right upper lobectomy. Stable subcentimeter subpleural nodules in the left lung. No new or enlarging pulmonary nodules. 2. Interval resolution of patchy groundglass opacities in the left upper lobe. No new consolidation. Rebekah Newell M.D. This report has been electronically signed and verified by the Radiologist whose name is printed above. This report contains privileged and confidential information and is intended solely for the use of the individual or entity to which it is addressed. If you are not the intended recipient of this report, you are hereby notified that any copying, distribution, dissemination or action taken in relation to the contents of this report is strictly prohibited and may be unlawful. If you have received this report in error, please notify the sender immediately at [phone] and permanently delete the original report and destroy any copies or printouts. [facility] Radiology Study observation (narrative) [facility] CT Chest W contrast IVOrdere d By: Rebekah Newell on 04-21-2024 [facility] Work Phone: CBC AND ELECTRONIC DIFFon Basophils (Bld) [#/Vol] 0.14 10*3/uL High 0.00 - 0.09 K/uL [facility] Basophils/100 WBC (Bld) 1.8 % [facility] Differential cell count method Nom (Bld) Electronic Differential [facility] Eosinophils (Bld) [#/Vol] 0.32 10*3/uL 0.00 - 0.48 K/uL [facility] Eosinophils/100 WBC (Bld) 4.1 % [facility] Erythrocyte distribution width (RBC) [Ratio] 14.7 % High 10.9 - 14.3 % [facility] Hematocrit (Bld) [Volume fraction] 45.8 % 39.6 - 48.8 % [facility] Hemoglobin (Bld) [Mass/Vol] 15.1 g/dL 13.4 - 16.8 g/dL [facility] Immature granulocytes (Bld) [#/Vol] K/uL NINF - 0.07 K/uL [facility] Immature granulocytes/100 WBC (Bld) 0.3 % [facility] Interpretation and review of laboratory results Abnormal [facility] Lymphocytes (Bld) [#/Vol] 1.94 10*3/uL 0.83 - 3.57 K/uL [facility] Lymphocytes/100 WBC (Bld) 25.0 % [facility] MCH (RBC) [Entitic mass] 29.9 pg 26.1 - 33.3 pg [facility] MCHC (RBC) [Mass/Vol] 33.0 g/dL 31.9 - 36.5 g/dL [facility] MCV (RBC) [Entitic vol] 90.7 fL 79.0 - 94.5 fL [facility] Monocytes (Bld) [#/Vol] 0.75 10*3/uL 0.24 - 0.93 K/uL [facility] Monocytes/100 WBC (Bld) 9.7 % [facility] Neutrophils (Bld) [#/Vol] 4.59 10*3/uL 1.57 - 6.19 K/uL [facility] Nucleated RBC/100 WBC (Bld) [Ratio] 0.0 % NIN [facility] Platelet mean volume (Bld) [Entitic vol] 9.4 fL 8.7 - 12.3 fL [facility] Platelets (Bld) [#/Vol] 219 10*3/uL 146 - 337 K/uL [facility] RBC (Bld) [#/Vol] 5.05 10*6/uL [facility] Segmented neutrophils/100 WBC (Bld) 59.1 % [facility] WBC (Bld) [#/Vol] 7.76 10*3/uL 3.73 - 10. 10 K/uL [facility] Basophils (Bld) [#/Vol] 0.14 10*3/uL High 0.00-0.09 [facility] Comment on above: Performed By: #### C MPN, LDO, FT4, TSH #### [facility] (DEFAULT) [address] [place] [address] 19773 Basophils/100 WBC (Bld) 1.8 % Normal O [facility] Comment on above: Performed By: #### C MPN, LDO, FT4, TSH #### [facility] (DEFAULT) [address] [place] [address]150 DIFF STATUS Electronic Differential Normal [facility] Comment on above: Performed By: #### C MPN, LDO, FT4, TSH #### [facility] (DEFAULT) [address] [place] [address] 87912 Eosinophils (Bld) [#/Vol] 0.32 10*3/uL Normal 0.00-0.48 [facility] Comment on above: Performed By: #### C MPN, LDO, FT4, TSH #### [facility] (DEFAULT) [address] [place] [address] 68854 Eosinophils/100 WBC (Bld) 4.1 % Normal [facility] Comment on above: Performed By: #### C MPN, LDO, FT4, TSH #### [facility] (DEFAULT) [address] [place] [address] 69426 Hematocrit (Bld) [Volume fraction] 45.8 % Normal 39.6-48.8 [facility] Comment on above: Performed By: #### C MPN, LDO, FT4, TSH #### [facility] (DEFAULT) [address] [place] [address] 19442 Hemoglobin (Bld) [Mass/Vol] 15.1 g/dL Normal 13.4-16.8 [facility] Comment on above: Performed By: #### C MPN, LDO, FT4, TSH #### [facility] (DEFAULT) [address] [place] [address] 16738 Immature Grans % 0.3 % Normal [facility] Comment on above: Performed By: #### C MPN, LDO, FT4, TSH #### [facility] (DEFAULT) [address] [place] [address] 57462 Immature Grans Absolute < Normal <=0.[address] [facility] Comment on above: Performed By: #### C MPN, LDO, FT4, TSH #### [facility] (DEFAULT) [address] [address] Lymphocytes (Bld) [#/Vol] 1.94 10*3/uL Normal 0.83-3.57 [facility] Comment on above: Performed By: #### C MPN, LDO, FT4, TSH #### [facility] (DEFAULT) [address] [address] Lymphocytes/100 WBC (Bld) 25.0 % Normal [facility] Comment on above: Performed By: #### C MPN, LDO, FT4, TSH #### [facility] (DEFAULT) [address] [address] MCV (RBC) [Entitic vol] 90.7 fL Normal 79.0-94.[address] [facility] Comment on above: Performed By: #### C MPN, LDO, FT4, TSH #### [facility] (DEFAULT) [address] [place] [address] 47837 Mean Cell Hgb 29.9 pg Normal 26.1-33.3 [facility] Comment on above: Performed By: #### C MPN, LDO, FT4, TSH #### [facility] (DEFAULT) [address] [place] [address] 21192 Mean Cell Hgb Conc 33.0 g/dL Normal 31.9-36.5 [facility] Comment on above: Performed By: #### C MPN, LDO, FT4, TSH #### [facility] (DEFAULT) [address] [place] [address] 62069 Monocytes (Bld) [#/Vol] 0.75 10*3/uL Normal 0.24-0.93 [facility] Comment on above: Performed By: #### C MPN, LDO, FT4, TSH #### [facility] (DEFAULT) [address] [place] [address] 24921 Monocytes/100 WBC (Bld) 9.7 % Normal O [facility] Comment on above: Performed By: #### C MPN, LDO, FT4, TSH #### [facility] (DEFAULT) [address] [place] [address] 08951 Nucleated RBC 0.0 /100 WBC Normal <=0.2 [facility] Comment on above: Performed By: #### C MPN, LDO, FT4, TSH #### [facility] (DEFAULT) [address] [place] [address] 24850 Platelet mean volume (Bld) [Entitic vol] 9.4 fL Normal 8.7-12.3 [facility] Comment on above: Performed By: #### C MPN, LDO, FT4, TSH #### [facility] (DEFAULT) [address] [place] [address] 95019 Platelets (Bld) [#/Vol] 219 10*3/uL Normal 146-337 [facility] Comment on above: Performed By: #### C MPN, LDO, FT4, TSH #### [facility] (DEFAULT) [address] [place] [address] 59624 RBC (Bld) [#/Vol] 5.05 10*6/uL Normal 4.38-5.83 [facility] Comment on above: Performed By: #### C MPN, LDO, FT4, TSH #### [facility] (DEFAULT) [address] [place] [address] 72132 RBC Distribution 14.7 % High 10.9-14.[address] [facility] Comment on above: Performed By: #### C MPN, LDO, FT4, TSH #### [facility] (DEFAULT) [address] [place] [address] 28510 Segs + Bands Auto 59.1 % Normal [facility] Comment on above: Performed By: #### C MPN, LDO, FT4, TSH #### [facility] (DEFAULT) [address] [place] [address] 83526 Segs + Bands,Absolute Auto 4.59 K/uL Normal 1.57-6.19 [facility] Comment on above: Performed By: #### C MPN, LDO, FT4, TSH #### [facility] (DEFAULT) [address] [place] [address] 44626 WBC (Bld) [#/Vol] 7.76 10*3/uL Normal 3.73-10.10 [facility] Comment on above: Performed By: #### C MPN, LDO, FT4, TSH #### [facility] (DEFAULT) [address] [place] [address] 32599 COMPREHENSIVE METABOLIC PANE Wilber 04-07-2024 Albumin [Mass/Vol] 4.5 g/dL 3.5 - 5.0 g/dL [facility] ALP [Catalytic activity/Vol] 74 U/L 32 - 126 U/L [facility] ALT [Catalytic activity/Vol] 18 U/L 10 - 52 U/L [facility] Anion gap [Moles/Vol] 10 mmol/L 7 - 17 mmol/L [facility] AST [Catalytic activity/Vol] 17 U/L 10 - 39 U/L [facility] Bilirubin [Mass/Vol] 1.0 mg/dL NINF - 1.5 mg/dL [facility] Calcium [Mass/Vol] 9.7 mg/dL 8.6 - 10. 5 mg/dL [facility] Chloride [Moles/Vol] 104 mmol/L 98 - 10 8 mmol/L [facility] CO2 [Moles/Vol] 28 mmol/L 21 - 31 mmol/L [facility] Creatinine [Mass/Vol] 1.00 mg/dL 0.70 - 1.30 mg/dL [facility] eGFR, CKD-EPI, Male 78 - PINF [facility] Comment on above: Reported eGFR is bas ed on the CKD-EPI 2020 equation using creatinine, age, and sex. Glucose [Mass/Vol] 81 mg/dL 70 - 99 mg/dL [facility] Osmolality Calc [Osmolality] 287 [facility] Potassium [Moles/Vol] 4.3 mmol/L 3.5 - 5.0 mmol/L [facility] Protein [Mass/Vol] 7.0 g/dL 6.4 - 8.3 g/dL [facility] Sodium [Moles/Vol] 138 mmol/L 135 - 145 mmol/L [facility] Urea nitrogen [Mass/Vol] 10 mg/dL 7 - 25 mg/dL [facility] Urea nitrogen/Creatinine [Mass ratio] 10 mg/mg [facility] Albumin [Mass/Vol] 4.5 g/dL Normal 3.5-5.0 [facility] Comment on above: Performed By: #### F T4, CMPN, TSH, LDO #### [facility] (DEFAULT) [address] [address] ALP [Catalytic activity/Vol] 74 U/L Normal 32-126 [facility] Comment on above: Performed By: #### F T4, CMPN, TSH, LDO #### [facility] (DEFAULT) [address] [place] [address] 08690 ALT [Catalytic activity/Vol] 18 U/L Normal 10-52 [facility] Comment on above: Performed By: #### F T4, CMPN, TSH, LDO #### [facility] (DEFAULT) [address] [place] [address] 37805 Anion gap [Moles/Vol] 10 mmol/L Normal 7-17 [facility] Comment on above: Performed By: #### F T4, CMPN, TSH, LDO #### [facility] (DEFAULT) [address] [place] [address] 79337 AST [Catalytic activity/Vol] 17 U/L Normal 10-39 [facility] Comment on above: Performed By: #### F T4, CMPN, TSH, LDO #### [facility] (DEFAULT) [address] [place] [address] 84908 Bilirubin [Mass/Vol] 1.0 mg/dL Normal <1.5 [facility] Comment on above: Performed By: #### F T4, CMPN, TSH, LDO #### [facility] (DEFAULT) [address] [place] [address] 56110 Calcium [Mass/Vol] 9.7 mg/dL Normal 8.6-10.5 [facility] Comment on above: Performed By: #### F T4, CMPN, TSH, LDO #### [facility] (DEFAULT) [address] [place] [address] 29878 Chloride [Moles/Vol] 104 mmol/L Normal 98-108 [facility] Comment on above: Performed By: #### F T4, CMPN, TSH, LDO #### [facility] (DEFAULT) [address] [place] [address] 10161 CO2 [Moles/Vol] 28 mmol/L Normal 21-31 [facility] Comment on above: Performed By: #### F T4, CMPN, TSH, LDO #### [facility] (DEFAULT) [address] [place] [address] 91891 Creatinine [Mass/Vol] 1.00 mg/dL Normal 0.70-1.30 [facility] Comment on above: Performed By: #### F T4, CMPN, TSH, LDO #### [facility] (DEFAULT) [address] [place] [address] 14245 GFR/1.73 sq M.predicted among non-blacks MDRD (S/P/Bld) [Vol rate/Area] 77 mL/min/{1.73_m2} Normal >=60 [facility] Comment on above: Result Comment: Repo rted eGFR is based on the CKD-EPI 2020 equation using creatinine, age, and sex. Performed By: #### F T4, CMPN, TSH, LDO #### [facility] (DEFAULT) [address] [place] [address] 58158 Glucose [Mass/Vol] 81 mg/dL Normal 70-99 [facility] Comment on above: Performed By: #### F T4, CMPN, TSH, LDO #### [facility] (DEFAULT) [address] [place] [address] 21437 Osmolality [Osmolality] 287 mosm/kg Normal 278-305 [facility] Comment on above: Performed By: #### F T4, CMPN, TSH, LDO #### [facility] (DEFAULT) [address] [place] [address] 24658 Potassium [Moles/Vol] 4.3 mmol/L Normal 3.5-5.0 [facility] Comment on above: Performed By: #### F T4, CMPN, TSH, LDO #### [facility] (DEFAULT) [address] [place] [address] 80167 Protein [Mass/Vol] 7.0 g/dL Normal 6.4-8.3 [facility] Comment on above: Performed By: #### F T4, CMPN, TSH, LDO #### [facility] (DEFAULT) [address] [place] [address] 88030 Sodium [Moles/Vol] 138 mmol/L Normal 135-145 [facility] Comment on above: Performed By: #### F T4, CMPN, TSH, LDO #### [facility] (DEFAULT) [address] [place] [address] 69783 Urea nitrogen [Mass/Vol] 10 mg/dL Normal 7-25 [facility] Comment on above: Performed By: #### F T4, CMPN, TSH, LDO #### [facility] (DEFAULT) [address] [place] [address] 70983 Urea nitrogen/Creatinine [Mass ratio] 10 mg/mg Normal [facility] Comment on above: Performed By: #### F T4, CMPN, TSH, LDO #### [facility] (DEFAULT) [address] [place] [address] 25850 LACTATE DEHYDROGENASEon 03-28 Interpretation and review of laboratory results Normal [facility] LDH Lactate to pyruvate reaction [Catalytic activity/Vol] 172 U/L 100 - 190 U/L [facility] LD Total 172 U/L Normal 100-190 [facility] Comment on above: Performed By: #### F T4, CMPN, TSH, LDO #### [facility] (DEFAULT) [address] [place] [address] 63537 No Panel Informationon 04-07 [facility] T4 FREEon 04-07-2024 Free T4 [Mass/Vol] 1.30 ng/dL 0.89 - 1. 76 ng/dL [facility] Interpretation and review of laboratory results Normal [facility] Free T4 [Mass/Vol] 1.30 ng/dL Normal 0.89-1.76 [facility] Comment on above: Performed By: #### F T4, CMPN, TSH, LDO #### [facility] (DEFAULT) [address] [place] [address] 14094 TSHon 04-07-2024 Interpretation and review of laboratory results Normal [facility] TSH Qn 2.358 m[IU]/L [facility] TSH 2.358 uIU/mL Normal 0.550-4.780 [facility] Comment on above: Performed By: #### F T4, CMPN, TSH, LDO #### [facility] (DEFAULT) [address] [place] [address] CBC AND ELECTRONIC DIFFon Basophils (Bld) [#/Vol] 0.14 10*3/uL High 0.00 - 0.09 K/uL [facility] Basophils/100 WBC (Bld) 1.3 % [facility] Differential cell count method Nom (Bld) Electronic Differential [facility] Eosinophils (Bld) [#/Vol] 0.30 10*3/uL 0.00 - 0.48 K/uL [facility] Eosinophils/100 WBC (Bld) 2.7 % [facility] Erythrocyte distribution width (RBC) [Ratio] 13.9 % 10.9 - 14.3 % [facility] Hematocrit (Bld) [Volume fraction] 47.3 % 39.6 - 48.8 % [facility] Hemoglobin (Bld) [Mass/Vol] 15.2 g/dL 13.4 - 16.8 g/dL [facility] Immature granulocytes (Bld) [#/Vol] 0.04 10*3/uL NINF - 0.07 K/uL [facility] Immature granulocytes/100 WBC (Bld) 0.4 % [facility] Interpretation and review of laboratory results Abnormal [facility] Lymphocytes (Bld) [#/Vol] 1.85 10*3/uL 0.83 - 3.57 K/uL [facility] Lymphocytes/100 WBC (Bld) 16.9 % [facility] MCH (RBC) [Entitic mass] 29.2 pg 26.1 - 33.3 pg [facility] MCHC (RBC) [Mass/Vol] 32.1 g/dL 31.9 - 36.5 g/dL [facility] MCV (RBC) [Entitic vol] 91.0 fL 79.0 - 94.5 fL [facility] Monocytes (Bld) [#/Vol] 0.81 10*3/uL 0.24 - 0.93 K/uL [facility] Monocytes/100 WBC (Bld) 7.4 % [facility] Neutrophils (Bld) [#/Vol] 7.78 10*3/uL High 1.57 - 6.19 K/uL [facility] Nucleated RBC/100 WBC (Bld) [Ratio] 0.0 % NINF [facility] Platelet mean volume (Bld) [Entitic vol] 9.5 fL 8.7 - 12.3 fL [facility] Platelets (Bld) [#/Vol] 342 10*3/uL High 146 - 337 K/uL [facility] RBC (Bld) [#/Vol] 5.20 10*6/uL [facility] Segmented neutrophils/100 WBC (Bld) 71.3 % [facility] WBC (Bld) [#/Vol] 10.92 10*3/uL High 3.73 - 10 .10 K/uL [facility] Basophils (Bld) [#/Vol] 0.14 10*3/uL High 0.00-0.09 [facility] Comment on above: Performed By: #### C MPN, LDO, FT4, TSH #### [facility] (DEFAULT) [address] [address] Basophils/100 WBC (Bld) 1.3 % Normal O [facility] Comment on above: Performed By: #### C MPN, LDO, FT4, TSH #### [facility] (DEFAULT) [address] [address] DIFF STATUS Electronic Differential Normal [facility] Comment on above: Performed By: #### C MPN, LDO, FT4, TSH #### [facility] (DEFAULT) [address] [place] [address] 40092 Eosinophils (Bld) [#/Vol] 0.30 10*3/uL Normal 0.00-0.48 [facility] Comment on above: Performed By: #### C MPN, LDO, FT4, TSH #### [facility] (DEFAULT) [address] [place] [address] 58791 Eosinophils/100 WBC (Bld) 2.7 % Normal [facility] Comment on above: Performed By: #### C MPN, LDO, FT4, TSH #### [facility] (DEFAULT) [address] [place] [address] 93542 Hematocrit (Bld) [Volume fraction] 47.3 % Normal 39.6-48.8 [facility] Comment on above: Performed By: #### C MPN, LDO, FT4, TSH #### [facility] (DEFAULT) [address] [place] [address] 20548 Hemoglobin (Bld) [Mass/Vol] 15.2 g/dL Normal 13.4-16.8 [facility] Comment on above: Performed By: #### C MPN, LDO, FT4, TSH #### [facility] (DEFAULT) [address] [place] [address] 74165 Immature Grans % 0.4 % Normal [facility] Comment on above: Performed By: #### C MPN, LDO, FT4, TSH #### [facility] (DEFAULT) [address] [place] [address] 99911 Immature Grans Absolute 0.04 K/uL Normal <=0.[address] [facility] Comment on above: Performed By: #### C MPN, LDO, FT4, TSH #### [facility] (DEFAULT) [address] [place] [address] 78803 Lymphocytes (Bld) [#/Vol] 1.85 10*3/uL Normal 0.83-3.57 [facility] Comment on above: Performed By: #### C MPN, LDO, FT4, TSH #### [facility] (DEFAULT) [address] [place] [address] 99369 Lymphocytes/100 WBC (Bld) 16.9 % Normal [facility] Comment on above: Performed By: #### C MPN, LDO, FT4, TSH #### [facility] (DEFAULT) [address] [place] [address] 62407 MCV (RBC) [Entitic vol] 91.0 fL Normal 79.0-94.[address] [facility] Comment on above: Performed By: #### C MPN, LDO, FT4, TSH #### [facility] (DEFAULT) [address] [place] [address] 78600 Mean Cell Hgb 29.2 pg Normal 26.1-33.3 [facility] Comment on above: Performed By: #### C MPN, LDO, FT4, TSH #### [facility] (DEFAULT) [address] [place] [address] 40977 Mean Cell Hgb Conc 32.1 g/dL Normal 31.9-36.5 [facility] Comment on above: Performed By: #### C MPN, LDO, FT4, TSH #### [facility] (DEFAULT) [address] [place] [address] 22410 Monocytes (Bld) [#/Vol] 0.81 10*3/uL Normal 0.24-0.93 [facility] Comment on above: Performed By: #### C MPN, LDO, FT4, TSH #### [facility] (DEFAULT) [address] [place] [address] 31361 Monocytes/100 WBC (Bld) 7.4 % Normal O [facility] Comment on above: Performed By: #### C MPN, LDO, FT4, TSH #### [facility] (DEFAULT) [address] [place] [address] 85157 Nucleated RBC 0.0 /100 WBC Normal <=0.2 [facility] Comment on above: Performed By: #### C MPN, LDO, FT4, TSH #### [facility] (DEFAULT) [address] [place] [address] 02925 Platelet mean volume (Bld) [Entitic vol] 9.5 fL Normal 8.7-12.3 [facility] Comment on above: Performed By: #### C MPN, LDO, FT4, TSH #### [facility] (DEFAULT) [address] [place] [address] 25171 Platelets (Bld) [#/Vol] 342 10*3/uL High 146-337 [facility] Comment on above: Performed By: #### C MPN, LDO, FT4, TSH #### [facility] (DEFAULT) [address] [place] [address] 25499 RBC (Bld) [#/Vol] 5.20 10*6/uL Normal 4.38-5.83 [facility] Comment on above: Performed By: #### C MPN, LDO, FT4, TSH #### [facility] (DEFAULT) [address] [place] [address] 87074 RBC Distribution 13.9 % Normal 10.9-14.[address] [facility] Comment on above: Performed By: #### C MPN, LDO, FT4, TSH #### [facility] (DEFAULT) [address] [place] [address] 65489 Segs + Bands Auto 71.3 % Normal [facility] Comment on above: Performed By: #### C MPN, LDO, FT4, TSH #### [facility] (DEFAULT) [address] [place] [address] 07395 Segs + Bands,Absolute Auto 7.78 K/uL High 1.57-6.19 [facility] Comment on above: Performed By: #### C MPN, LDO, FT4, TSH #### [facility] (DEFAULT) [address] [place] [address] 40184 WBC (Bld) [#/Vol] 10.92 10*3/uL High 3.73-10.10 [facility] Comment on above: Performed By: #### C MPN, LDO, FT4, TSH #### [facility] (DEFAULT) [address] [place] [address] COMPREHENSIVE METABOLIC PANE Wilber 03-17-2024 Albumin [Mass/Vol] 4.4 g/dL 3.5 - 5.0 g/dL [facility] ALP [Catalytic activity/Vol] 93 U/L 32 - 126 U/L [facility] ALT [Catalytic activity/Vol] 13 U/L 10 - 52 U/L [facility] Anion gap [Moles/Vol] 12 mmol/L 7 - 17 mmol/L [facility] AST [Catalytic activity/Vol] 17 U/L 10 - 39 U/L [facility] Bilirubin [Mass/Vol] 0.8 mg/dL NINF - 1.5 mg/dL [facility] Calcium [Mass/Vol] 9.9 mg/dL 8.6 - 10. 5 mg/dL [facility] Chloride [Moles/Vol] 102 mmol/L 98 - 10 8 mmol/L [facility] CO2 [Moles/Vol] 27 mmol/L 21 - 31 mmol/L [facility] Creatinine [Mass/Vol] 1.10 mg/dL 0.70 - 1.30 mg/dL [facility] eGFR, CKD-EPI, Male 70 - PINF [facility] Comment on above: Reported eGFR is bas ed on the CKD-EPI 2020 equation using creatinine, age, and sex. Glucose [Mass/Vol] 119 mg/dL High 70 - 99 mg/dL [facility] Osmolality Calc [Osmolality] 288 [facility] Potassium [Moles/Vol] 4.1 mmol/L 3.5 - 5.0 mmol/L [facility] Protein [Mass/Vol] 7.4 g/dL 6.4 - 8.3 g/dL [facility] Sodium [Moles/Vol] 137 mmol/L 135 - 145 mmol/L [facility] Urea nitrogen [Mass/Vol] 12 mg/dL 7 - 25 mg/dL [facility] Urea nitrogen/Creatinine [Mass ratio] 11 mg/mg [facility] Albumin [Mass/Vol] 4.4 g/dL Normal 3.5-5.0 [facility] Comment on above: Performed By: #### C MPN, LDO, FT4, TSH #### [facility] (DEFAULT) [address] [place] [address] 60512 ALP [Catalytic activity/Vol] 93 U/L Normal 32-126 [facility] Comment on above: Performed By: #### C MPN, LDO, FT4, TSH #### [facility] (DEFAULT) [address] [place] [address] 16436 ALT [Catalytic activity/Vol] 13 U/L Normal 10-52 [facility] Comment on above: Performed By: #### C MPN, LDO, FT4, TSH #### [facility] (DEFAULT) [address] [place] [address] 12832 Anion gap [Moles/Vol] 12 mmol/L Normal 7-17 [facility] Comment on above: Performed By: #### C MPN, LDO, FT4, TSH #### [facility] (DEFAULT) [address] [place] [address] 85823 AST [Catalytic activity/Vol] 17 U/L Normal 10-39 [facility] Comment on above: Performed By: #### C MPN, LDO, FT4, TSH #### [facility] (DEFAULT) [address] [place] [address] 88383 Bilirubin [Mass/Vol] 0.8 mg/dL Normal <1.5 [facility] Comment on above: Performed By: #### C MPN, LDO, FT4, TSH #### [facility] (DEFAULT) [address] [place] [address] 09902 Calcium [Mass/Vol] 9.9 mg/dL Normal 8.6-10.5 [facility] Comment on above: Performed By: #### C MPN, LDO, FT4, TSH #### [facility] (DEFAULT) [address] [place] [address] 25691 Chloride [Moles/Vol] 102 mmol/L Normal 98-108 [facility] Comment on above: Performed By: #### C MPN, LDO, FT4, TSH #### [facility] (DEFAULT) [address] [place] [address] 38197 CO2 [Moles/Vol] 27 mmol/L Normal 21-31 [facility] Comment on above: Performed By: #### C MPN, LDO, FT4, TSH #### [facility] (DEFAULT) [address] [place] [address] 63509 Creatinine [Mass/Vol] 1.10 mg/dL Normal 0.70-1.30 [facility] Comment on above: Performed By: #### C MPN, LDO, FT4, TSH #### [facility] (DEFAULT) [address] [place] [address] 53575 GFR/1.73 sq M.predicted among non-blacks MDRD (S/P/Bld) [Vol rate/Area] 69 mL/min/{1.73_m2} Normal >=60 [facility] Comment on above: Result Comment: Repo rted eGFR is based on the CKD-EPI 2020 equation using creatinine, age, and sex. Performed By: #### C MPN, LDO, FT4, TSH #### [facility] (DEFAULT) [address] [place] [address] 11656 Glucose [Mass/Vol] 119 mg/dL High 70-99 [facility] Comment on above: Performed By: #### C MPN, LDO, FT4, TSH #### [facility] (DEFAULT) [address] [place] [address] 62306 Osmolality [Osmolality] 288 mosm/kg Normal 278-305 [facility] Comment on above: Performed By: #### C MPN, LDO, FT4, TSH #### [facility] (DEFAULT) [address] [place] [address] 52020 Potassium [Moles/Vol] 4.1 mmol/L Normal 3.5-5.0 [facility] Comment on above: Performed By: #### C MPN, LDO, FT4, TSH #### [facility] (DEFAULT) [address] [place] [address] 92601 Protein [Mass/Vol] 7.4 g/dL Normal 6.4-8.3 [facility] Comment on above: Performed By: #### C MPN, LDO, FT4, TSH #### [facility] (DEFAULT) [address] [place] [address] 43308 Sodium [Moles/Vol] 137 mmol/L Normal 135-145 [facility] Comment on above: Performed By: #### C MPN, LDO, FT4, TSH #### [facility] (DEFAULT) [address] [place] [address] 85392 Urea nitrogen [Mass/Vol] 12 mg/dL Normal 7-25 [facility] Comment on above: Performed By: #### C MPN, LDO, FT4, TSH #### [facility] (DEFAULT) [address] [place] [address] 30543 Urea nitrogen/Creatinine [Mass ratio] 11 mg/mg Normal [facility] Comment on above: Performed By: #### C MPN, LDO, FT4, TSH #### [facility] (DEFAULT) [address] [place] [address] 80618 LACTATE DEHYDROGENASEon 02-26 LDH Lactate to pyruvate reaction [Catalytic activity/Vol] 202 U/L High 100 - 190 U/L [facility] LD Total 202 U/L High 100-190 [facility] Comment on above: Performed By: #### C MPN, LDO, FT4, TSH #### [facility] (DEFAULT) [address] [place] [address] 68359 No Panel Informationon 03-17 Interpretation and review of laboratory results Abnormal [facility] T4 FREEon 03-17-2024 Free T4 [Mass/Vol] 1.34 ng/dL 0.89 - 1. 76 ng/dL [facility] Interpretation and review of laboratory results Normal [facility] Free T4 [Mass/Vol] 1.34 ng/dL Normal 0.89-1.76 [facility] Comment on above: Performed By: #### F T4, TSH, LDO, CMPN #### [facility] (DEFAULT) [address] [place] [address] TSHon 03-17-2024 Interpretation and review of laboratory results Normal [facility] TSH Qn 3.383 m[IU]/L [facility] TSH 3.383 uIU/mL Normal 0.550-4.780 [facility] Comment on above: Performed By: #### F T4, TSH, LDO, CMPN #### [facility] (DEFAULT) [address] [place] [address] CT CHEST WITH CONTRASTon CT CHEST WITH CONTRAST EXAM: CT CHEST WI TH CONTRAST, 03/10/2024 10:34 AM COMPARISON: December 16, 2023 CLINICAL INDICATIONS: lung cancer restaging - on active treatment RELEVANT CLINICAL HISTORY: 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 CONTRAST: iohexol (OMNIPAQUE) 350 MG/ML injection 1-171 mL; Route of Administration: Intravenous; Dose: 50 mL. FINDINGS: Lungs and Pleura: Status post right upper lobectomy. Upper lung emphysema. Interval decrease in volume of a trace right pleural effusion. Stable appearing subpleural fibrosis in the right greater than left basilar lower lobes. Subcentimeter subpleural nodules in the left lung (series 3 image 164, 173, and 232) unchanged from the comparison study. Newly visualized patchy areas of subsegmental groundglass density anteriorly in the left upper lobe (series 3 images 120 and 176). Similar-appearing scarring/linear atelectasis in the inferior right middle lobe. Tracheobronchial tree: Trachea and central bronchi are patent. Mediastinum/Leni: No mediastinal or hilar lymphadenopathy. Right perihilar postoperative changes. Axilla and Supraclavicular Regions: No axillary or supraclavicular adenopathy. Cardiovascular: The cardiac chambers are within normal limits. The pericardium is normal. The aorta and its arch branch vessels are unremarkable. The pulmonary arteries are also unremarkable. Stable left subclavian ICD/pacemaker. Multivessel coronary artery calcific indications. Upper Abdomen: Punctate nonobstructing right renal calculi. Bones and Soft Tissue: No suspicious osseous lesion. Ovoid macroscopic fat density lesion at the interface of the subcutaneous fat and right trapezius musculature at the posterior superior right back measuring 1.8 x 6.0 cm on series 2 image 22, compatible with a lipoma. IMPRESSION: 1. Status post right upper lobectomy. 2. No convincing evidence of thoracic metastatic disease. 3. Newly visualized few subsegmental areas of groundglass density anteriorly in the left upper lobe, favored to be infectious/inflammatory in nature. Continued attention on follow-up imaging requested. 4. Interval decrease in volume of a small trace right pleural effusion. Normal [facility] CBC AND ELECTRONIC DIFFon Basophils (Bld) [#/Vol] 0.16 10*3/uL High 0.00 - 0.09 K/uL [facility] Basophils/100 WBC (Bld) 1.4 % [facility] Differential cell count method Nom (Bld) Electronic Differential [facility] Eosinophils (Bld) [#/Vol] 0.45 10*3/uL 0.00 - 0.48 K/uL [facility] Eosinophils/100 WBC (Bld) 4.0 % [facility] Erythrocyte distribution width (RBC) [Ratio] 13.1 % 10.9 - 14.3 % [facility] Comment on above: This is an appended report. These results have been appended to a previously preliminary verified report. Hematocrit (Bld) [Volume fraction] 42.7 % 39.6 - 48.8 % [facility] Comment on above: This is an appended report. These results have been appended to a previously preliminary verified report. Hemoglobin (Bld) [Mass/Vol] 14.6 g/dL 13.4 - 16.8 g/dL [facility] Comment on above: This is an appended report. These results have been appended to a previously preliminary verified report. Immature granulocytes (Bld) [#/Vol] K/uL NINF - 0.07 K/uL [facility] Immature granulocytes/100 WBC (Bld) 0.3 % [facility] Interpretation and review of laboratory results Abnormal [facility] Lymphocytes (Bld) [#/Vol] 1.29 10*3/uL 0.83 - 3.57 K/uL [facility] Lymphocytes/100 WBC (Bld) 11.4 % [facility] MCH (RBC) [Entitic mass] 30.0 pg 26.1 - 33.3 pg [facility] Comment on above: This is an appended report. These results have been appended to a previously preliminary verified report. MCHC (RBC) [Mass/Vol] 34.2 g/dL 31.9 - 36.5 g/dL [facility] Comment on above: This is an appended report. These results have been appended to a previously preliminary verified report. MCV (RBC) [Entitic vol] 87.7 fL 79.0 - 94.5 fL [facility] Comment on above: This is an appended report. These results have been appended to a previously preliminary verified report. Monocytes (Bld) [#/Vol] 1.02 10*3/uL High 0.24 - 0.93 K/uL [facility] Monocytes/100 WBC (Bld) 9.0 % [facility] Neutrophils (Bld) [#/Vol] 8.38 10*3/uL High 1.57 - 6.19 K/uL [facility] Nucleated RBC/100 WBC (Bld) [Ratio] 0.0 % [facility] Comment on above: This is an appended report. These results have been appended to a previously preliminary verified report. Platelet mean volume (Bld) [Entitic vol] [facility] Comment on above: Not measured Platelets (Bld) [#/Vol] 416 10*3/uL High 146 - 337 K/uL [facility] Comment on above: This is an appended report. These results have been appended to a previously preliminary verified report. RBC (Bld) [#/Vol] 4.87 10*6/uL [facility] Comment on above: This is an appended report. These results have been appended to a previously preliminary verified report. Segmented neutrophils/100 WBC (Bld) 73.9 % [facility] WBC (Bld) [#/Vol] 11.33 10*3/uL High 3.73 - 10 .10 K/uL [facility] Comment on above: This is an appended report. These results have been appended to a previously preliminary verified report. [facility] COMPREHENSIVE METABOLIC PANE Wilber 02-25-2024 Albumin [Mass/Vol] 3.8 g/dL 3.5 - 5.0 g/dL [facility] ALP [Catalytic activity/Vol] 92 U/L 32 - 126 U/L [facility] ALT [Catalytic activity/Vol] 15 U/L 10 - 52 U/L [facility] Anion gap [Moles/Vol] 12 mmol/L 7 - 17 mmol/L [facility] AST [Catalytic activity/Vol] 16 U/L 10 - 39 U/L [facility] Bilirubin [Mass/Vol] 0.8 mg/dL NINF - 1.5 mg/dL [facility] Calcium [Mass/Vol] 9.2 mg/dL 8.6 - 10. 5 mg/dL [facility] Chloride [Moles/Vol] 102 mmol/L 98 - 10 8 mmol/L [facility] CO2 [Moles/Vol] 25 mmol/L 21 - 31 mmol/L [facility] Creatinine [Mass/Vol] 1.04 mg/dL 0.70 - 1.30 mg/dL [facility] eGFR, CKD-EPI, Male 75 - PINF [facility] Comment on above: Reported eGFR is bas ed on the CKD-EPI 2020 equation using creatinine, age, and sex. Glucose [Mass/Vol] 112 mg/dL High 70 - 99 mg/dL [facility] Osmolality Calc [Osmolality] 282 [facility] Potassium [Moles/Vol] 3.9 mmol/L 3.5 - 5.0 mmol/L [facility] Protein [Mass/Vol] 7.2 g/dL 6.4 - 8.3 g/dL [facility] Sodium [Moles/Vol] 135 mmol/L 135 - 145 mmol/L [facility] Urea nitrogen [Mass/Vol] 8 mg/dL 7 - 25 mg/dL [facility] Urea nitrogen/Creatinine [Mass ratio] 8 mg/mg [facility] LACTATE DEHYDROGENASEon 01-27 LDH Lactate to pyruvate reaction [Catalytic activity/Vol] 219 U/L High 100 - 190 U/L [facility] No Panel Informationon 02-24 Interpretation and review of laboratory results Abnormal [facility] T4 FREEon 02-25-2024 Free T4 [Mass/Vol] 1.21 ng/dL 0.89 - 1. 76 ng/dL [facility] Interpretation and review of laboratory results Normal [facility] TSHon 02-25-2024 Interpretation and review of laboratory results Normal [facility] TSH Qn 1.535 m[IU]/L [facility] CBC AND ELECTRONIC DIFFon Basophils (Bld) [#/Vol] 0.13 10*3/uL High 0.00 - 0.09 K/uL [facility] Basophils/100 WBC (Bld) 1.4 % [facility] Differential cell count method Nom (Bld) Electronic Differential [facility] Eosinophils (Bld) [#/Vol] 0.34 10*3/uL 0.00 - 0.48 K/uL [facility] Eosinophils/100 WBC (Bld) 3.6 % [facility] Erythrocyte distribution width (RBC) [Ratio] 13.2 % 10.9 - 14.3 % [facility] Hematocrit (Bld) [Volume fraction] 44.8 % 39.6 - 48.8 % [facility] Hemoglobin (Bld) [Mass/Vol] 15.1 g/dL 13.4 - 16.8 g/dL [facility] Immature granulocytes (Bld) [#/Vol] K/uL NINF - 0.07 K/uL [facility] Immature granulocytes/100 WBC (Bld) 0.2 % [facility] Interpretation and review of laboratory results Abnormal [facility] Lymphocytes (Bld) [#/Vol] 1.35 10*3/uL 0.83 - 3.57 K/uL [facility] Lymphocytes/100 WBC (Bld) 14.3 % [facility] MCH (RBC) [Entitic mass] 30.4 pg 26.1 - 33.3 pg [facility] MCHC (RBC) [Mass/Vol] 33.7 g/dL 31.9 - 36.5 g/dL [facility] MCV (RBC) [Entitic vol] 90.1 fL 79.0 - 94.5 fL [facility] Monocytes (Bld) [#/Vol] 0.93 10*3/uL 0.24 - 0.93 K/uL [facility] Monocytes/100 WBC (Bld) 9.9 % [facility] Neutrophils (Bld) [#/Vol] 6.64 10*3/uL High 1.57 - 6.19 K/uL [facility] Nucleated RBC/100 WBC (Bld) [Ratio] 0.0 % [facility] Platelet mean volume (Bld) [Entitic vol] 9.5 fL 8.7 - 12.3 fL [facility] Platelets (Bld) [#/Vol] 270 10*3/uL 146 - 337 K/uL [facility] RBC (Bld) [#/Vol] 4.97 10*6/uL [facility] Segmented neutrophils/100 WBC (Bld) 70.6 % [facility] WBC (Bld) [#/Vol] 9.41 10*3/uL 3.73 - 10. 10 K/uL [facility] COMPREHENSIVE METABOLIC PANE Wilber 02-11-2024 Albumin [Mass/Vol] 4.2 g/dL 3.5 - 5.0 g/dL [facility] ALP [Catalytic activity/Vol] 98 U/L 32 - 126 U/L [facility] ALT [Catalytic activity/Vol] 16 U/L 10 - 52 U/L [facility] Anion gap [Moles/Vol] 11 mmol/L 7 - 17 mmol/L [facility] AST [Catalytic activity/Vol] 19 U/L 10 - 39 U/L [facility] Bilirubin [Mass/Vol] 1.2 mg/dL NINF - 1.5 mg/dL [facility] Calcium [Mass/Vol] 9.6 mg/dL 8.6 - 10. 5 mg/dL [facility] Chloride [Moles/Vol] 103 mmol/L 98 - 10 8 mmol/L [facility] CO2 [Moles/Vol] 28 mmol/L 21 - 31 mmol/L [facility] Creatinine [Mass/Vol] 1.17 mg/dL 0.70 - 1.30 mg/dL [facility] eGFR, CKD-EPI, Male 65 - PINF [facility] Comment on above: Reported eGFR is bas ed on the CKD-EPI 2020 equation using creatinine, age, and sex. Glucose [Mass/Vol] 114 mg/dL High 70 - 99 mg/dL [facility] Osmolality Calc [Osmolality] [facility] Potassium [Moles/Vol] 3.9 mmol/L 3.5 - 5.0 mmol/L [facility] Protein [Mass/Vol] 7.4 g/dL 6.4 - 8.3 g/dL [facility] Sodium [Moles/Vol] 138 mmol/L 135 - 145 mmol/L [facility] Urea nitrogen [Mass/Vol] 11 mg/dL 7 - 25 mg/dL [facility] Urea nitrogen/Creatinine [Mass ratio] 9 mg/mg [facility] LACTATE DEHYDROGENASEon 01-25 LDH Lactate to pyruvate reaction [Catalytic activity/Vol] 228 U/L High 100 - 190 U/L [facility] No Panel Informationon 02-10 Interpretation and review of laboratory results Abnormal [facility] T4 FREEon 02-11-2024 Free T4 [Mass/Vol] 1.19 ng/dL 0.89 - 1. 76 ng/dL [facility] Interpretation and review of laboratory results Normal [facility] TSHon 02-11-2024 Interpretation and review of laboratory results Normal [facility] TSH Qn 2.297 m[IU]/L [facility] CBC AND ELECTRONIC DIFFon Basophils (Bld) [#/Vol] 0.15 10*3/uL High 0.00 - 0.09 K/uL [facility] Basophils/100 WBC (Bld) 1.7 % [facility] Differential cell count method Nom (Bld) Electronic Differential [facility] Eosinophils (Bld) [#/Vol] 0.35 10*3/uL 0.00 - 0.48 K/uL [facility] Eosinophils/100 WBC (Bld) 4.0 % [facility] Erythrocyte distribution width (RBC) [Ratio] 13.2 % 10.9 - 14.3 % [facility] Hematocrit (Bld) [Volume fraction] 47.4 % 39.6 - 48.8 % [facility] Hemoglobin (Bld) [Mass/Vol] 15.8 g/dL 13.4 - 16.8 g/dL [facility] Immature granulocytes (Bld) [#/Vol] K/uL NINF - 0.07 K/uL [facility] Immature granulocytes/100 WBC (Bld) 0.3 % [facility] Interpretation and review of laboratory results Abnormal [facility] Lymphocytes (Bld) [#/Vol] 1.76 10*3/uL 0.83 - 3.57 K/uL [facility] Lymphocytes/100 WBC (Bld) 19.9 % [facility] MCH (RBC) [Entitic mass] 30.7 pg 26.1 - 33.3 pg [facility] MCHC (RBC) [Mass/Vol] 33.3 g/dL 31.9 - 36.5 g/dL [facility] MCV (RBC) [Entitic vol] 92.0 fL 79.0 - 94.5 fL [facility] Monocytes (Bld) [#/Vol] 0.70 10*3/uL 0.24 - 0.93 K/uL [facility] Monocytes/100 WBC (Bld) 7.9 % [facility] Neutrophils (Bld) [#/Vol] 5.86 10*3/uL 1.57 - 6.19 K/uL [facility] Nucleated RBC/100 WBC (Bld) [Ratio] 0.0 % NINF [facility] Platelet mean volume (Bld) [Entitic vol] 9.7 fL 8.7 - 12.3 fL [facility] Platelets (Bld) [#/Vol] 241 10*3/uL 146 - 337 K/uL [facility] RBC (Bld) [#/Vol] 5.15 10*6/uL [facility] Segmented neutrophils/100 WBC (Bld) 66.2 % [facility] WBC (Bld) [#/Vol] 8.85 10*3/uL 3.73 - 10. 10 K/uL [facility] COMPREHENSIVE METABOLIC PANE Wilber 01-21-2024 Albumin [Mass/Vol] 4.6 g/dL 3.5 - 5.0 g/dL [facility] ALP [Catalytic activity/Vol] 80 U/L 32 - 126 U/L [facility] ALT [Catalytic activity/Vol] 14 U/L 10 - 52 U/L [facility] Anion gap [Moles/Vol] 14 mmol/L 7 - 17 mmol/L [facility] AST [Catalytic activity/Vol] 16 U/L 10 - 39 U/L [facility] Bilirubin [Mass/Vol] 1.0 mg/dL NINF - 1.5 mg/dL [facility] Calcium [Mass/Vol] 9.6 mg/dL 8.6 - 10. 5 mg/dL [facility] Chloride [Moles/Vol] 103 mmol/L 98 - 10 8 mmol/L [facility] CO2 [Moles/Vol] 24 mmol/L 21 - 31 mmol/L [facility] Creatinine [Mass/Vol] 1.21 mg/dL 0.70 - 1.30 mg/dL [facility] eGFR, CKD-EPI, Male 63 - PINF [facility] Comment on above: Reported eGFR is bas ed on the CKD-EPI 2020 equation using creatinine, age, and sex. Glucose [Mass/Vol] 128 mg/dL High 70 - 99 mg/dL [facility] Interpretation and review of laboratory results Abnormal [facility] Osmolality Calc [Osmolality] 289 [facility] Potassium [Moles/Vol] 3.9 mmol/L 3.5 - 5.0 mmol/L [facility] Protein [Mass/Vol] 7.4 g/dL 6.4 - 8.3 g/dL [facility] Sodium [Moles/Vol] 137 mmol/L 135 - 145 mmol/L [facility] Urea nitrogen [Mass/Vol] 14 mg/dL 7 - 25 mg/dL [facility] Urea nitrogen/Creatinine [Mass ratio] 12 mg/mg [facility] LACTATE DEHYDROGENASEon 12-27 Interpretation and review of laboratory results Normal [facility] LDH Lactate to pyruvate reaction [Catalytic activity/Vol] 178 U/L 100 - 190 U/L [facility] No Panel Informationon 01-20 [facility] T4 FREEon 01-21-2024 Free T4 [Mass/Vol] 1.48 ng/dL 0.89 - 1. 76 ng/dL [facility] Interpretation and review of laboratory results Normal [facility] TSHon 01-21-2024 Interpretation and review of laboratory results Normal [facility] TSH Qn 3.637 m[IU]/L [facility] CBC AND ELECTRONIC DIFFon Basophils (Bld) [#/Vol] 0.12 10*3/uL High 0.00 - 0.09 K/uL [facility] Basophils/100 WBC (Bld) 1.7 % [facility] Differential cell count method Nom (Bld) Electronic Differential [facility] Eosinophils (Bld) [#/Vol] 0.38 10*3/uL 0.00 - 0.48 K/uL [facility] Eosinophils/100 WBC (Bld) 5.4 % [facility] Erythrocyte distribution width (RBC) [Ratio] 13.2 % 10.9 - 14.3 % [facility] Hematocrit (Bld) [Volume fraction] 43.8 % 39.6 - 48.8 % [facility] Hemoglobin (Bld) [Mass/Vol] 15.1 g/dL 13.4 - 16.8 g/dL [facility] Immature granulocytes (Bld) [#/Vol] K/uL NINF - 0.07 K/uL [facility] Immature granulocytes/100 WBC (Bld) 0.3 % [facility] Interpretation and review of laboratory results Abnormal [facility] Lymphocytes (Bld) [#/Vol] 1.42 10*3/uL 0.83 - 3.57 K/uL [facility] Lymphocytes/100 WBC (Bld) 20.2 % [facility] MCH (RBC) [Entitic mass] 31.1 pg 26.1 - 33.3 pg [facility] MCHC (RBC) [Mass/Vol] 34.5 g/dL 31.9 - 36.5 g/dL [facility] MCV (RBC) [Entitic vol] 90.3 fL 79.0 - 94.5 fL [facility] Monocytes (Bld) [#/Vol] 0.63 10*3/uL 0.24 - 0.93 K/uL [facility] Monocytes/100 WBC (Bld) 9.0 % [facility] Neutrophils (Bld) [#/Vol] 4.45 10*3/uL 1.57 - 6.19 K/uL [facility] Nucleated RBC/100 WBC (Bld) [Ratio] 0.0 % [facility] Platelet mean volume (Bld) [Entitic vol] 9.8 fL 8.7 - 12.3 fL [facility] Platelets (Bld) [#/Vol] 224 10*3/uL 146 - 337 K/uL [facility] RBC (Bld) [#/Vol] 4.85 10*6/uL [facility] Segmented neutrophils/100 WBC (Bld) 63.4 % [facility] WBC (Bld) [#/Vol] 7.02 10*3/uL 3.73 - 10. 10 K/uL [facility] COMPREHENSIVE METABOLIC PANE Wilber 12-24-2023 Albumin [Mass/Vol] 4.3 g/dL 3.5 - 5.0 g/dL [facility] ALP [Catalytic activity/Vol] 69 U/L 32 - 126 U/L [facility] ALT [Catalytic activity/Vol] 16 U/L 10 - 52 U/L [facility] Anion gap [Moles/Vol] 10 mmol/L 7 - 17 mmol/L [facility] AST [Catalytic activity/Vol] 17 U/L 10 - 39 U/L [facility] Bilirubin [Mass/Vol] 0.9 mg[facility]/dL [facility] Calcium [Mass/Vol] 9.4 mg/dL 8.6 - 10. 5 mg/dL [facility] Chloride [Moles/Vol] 104 mmol/L 98 - 10 8 mmol/L [facility] CO2 [Moles/Vol] 27 mmol/L 21 - 31 mmol/L [facility] Creatinine [Mass/Vol] 1.14 mg/dL 0.70 - 1.30 mg/dL [facility] eGFR, CKD-EPI, Male 67 - PINF [facility] Comment on above: Reported eGFR is bas ed on the CKD-EPI 2020 equation using creatinine, age, and sex. Glucose [Mass/Vol] 131 mg/dL High 70 - 99 mg/dL [facility] Interpretation and review of laboratory results Abnormal [facility] Osmolality Calc [Osmolality] 289 [facility] Potassium [Moles/Vol] 4.0 mmol/L 3.5 - 5.0 mmol/L [facility] Protein [Mass/Vol] 6.9 g/dL 6.4 - 8.3 g/dL [facility] Sodium [Moles/Vol] 137 mmol/L 135 - 145 mmol/L [facility] Urea nitrogen [Mass/Vol] 11 mg/dL 7 - 25 mg/dL [facility] Urea nitrogen/Creatinine [Mass ratio] 10 mg/mg [facility] LACTATE DEHYDROGENASEon 11-26 Interpretation and review of laboratory results Normal [facility] LDH Lactate to pyruvate reaction [Catalytic activity/Vol] 169 U/L 100 - 190 U/L [facility] Laboratory - Chemistry and C hemistry - challengeon 12-24-2023 CK [Catalytic activity/Vol] 157 U/L 30 - 220 U/L [facility] No Panel Informationon 12-23 Interpretation and review of laboratory results Normal [facility] T4 FREEon 12-24-2023 Free T4 [Mass/Vol] 1.27 ng/dL 0.89 - 1. 76 ng/dL [facility] Interpretation and review of laboratory results Normal [facility] TSHon 12-24-2023 Interpretation and review of laboratory results Normal [facility] TSH Qn 3.462 m[IU]/L [facility] CBC AND ELECTRONIC DIFFon Basophils (Bld) [#/Vol] 0.13 10*3/uL High 0.00 - 0.09 K/uL [facility] Basophils/100 WBC (Bld) 1.7 % [facility] Differential cell count method Nom (Bld) Electronic Differential [facility] Eosinophils (Bld) [#/Vol] 0.29 10*3/uL 0.00 - 0.48 K/uL [facility] Eosinophils/100 WBC (Bld) 3.9 % [facility] Erythrocyte distribution width (RBC) [Ratio] 13.1 % 10.9 - 14.3 % [facility] Hematocrit (Bld) [Volume fraction] 46.1 % 39.6 - 48.8 % [facility] Hemoglobin (Bld) [Mass/Vol] 16.0 g/dL 13.4 - 16.8 g/dL [facility] Immature granulocytes (Bld) [#/Vol] K/uL NINF - 0.07 K/uL [facility] Immature granulocytes/100 WBC (Bld) 0.3 % [facility] Interpretation and review of laboratory results Abnormal [facility] Lymphocytes (Bld) [#/Vol] 1.92 10*3/uL 0.83 - 3.57 K/uL [facility] Lymphocytes/100 WBC (Bld) 25.7 % [facility] MCH (RBC) [Entitic mass] 31.0 pg 26.1 - 33.3 pg [facility] MCHC (RBC) [Mass/Vol] 34.7 g/dL 31.9 - 36.5 g/dL [facility] MCV (RBC) [Entitic vol] 89.3 fL 79.0 - 94.5 fL [facility] Monocytes (Bld) [#/Vol] 0.70 10*3/uL 0.24 - 0.93 K/uL [facility] Monocytes/100 WBC (Bld) 9.4 % [facility] Neutrophils (Bld) [#/Vol] 4.40 10*3/uL 1.57 - 6.19 K/uL [facility] Nucleated RBC/100 WBC (Bld) [Ratio] 0.0 % [facility] Platelet mean volume (Bld) [Entitic vol] 9.6 fL 8.7 - 12.3 fL [facility] Platelets (Bld) [#/Vol] 240 10*3/uL 146 - 337 K/uL [facility] RBC (Bld) [#/Vol] 5.16 10*6/uL [facility] Segmented neutrophils/100 WBC (Bld) 59.0 % [facility] WBC (Bld) [#/Vol] 7.46 10*3/uL 3.73 - 10. 10 K/uL [facility] COMPREHENSIVE METABOLIC PANE Wilber 12-03-2023 Albumin [Mass/Vol] 4.6 g/dL 3.5 - 5.0 g/dL [facility] ALP [Catalytic activity/Vol] 72 U/L 32 - 126 U/L [facility] ALT [Catalytic activity/Vol] 15 U/L 10 - 52 U/L [facility] Anion gap [Moles/Vol] 10 mmol/L 7 - 17 mmol/L [facility] AST [Catalytic activity/Vol] 19 U/L 10 - 39 U/L [facility] Bilirubin [Mass/Vol] 1.0 mg/[facility] mg/dL [facility] Calcium [Mass/Vol] 9.5 mg/dL 8.6 - 10. 5 mg/dL [facility] Chloride [Moles/Vol] 103 mmol/L 98 - 10 8 mmol/L [facility] CO2 [Moles/Vol] 28 mmol/L 21 - 31 mmol/L [facility] Creatinine [Mass/Vol] 1.13 mg/dL 0.70 - 1.30 mg/dL [facility] eGFR, CKD-EPI, Male 68 - PINF [facility] Comment on above: Reported eGFR is bas ed on the CKD-EPI 2020 equation using creatinine, age, and sex. Glucose [Mass/Vol] 86 mg/dL 70 - 99 mg/dL [facility] Osmolality Calc [Osmolality] 286 [facility] Potassium [Moles/Vol] 4.3 mmol/L 3.5 - 5.0 mmol/L [facility] Protein [Mass/Vol] 7.6 g/dL 6.4 - 8.3 g/dL [facility] Sodium [Moles/Vol] 137 mmol/L 135 - 145 mmol/L [facility] Urea nitrogen [Mass/Vol] 10 mg/dL 7 - 25 mg/dL [facility] Urea nitrogen/Creatinine [Mass ratio] 9 mg/mg [facility] LACTATE DEHYDROGENASEon Interpretation and review of laboratory results Normal [facility] LDH Lactate to pyruvate reaction [Catalytic activity/Vol] 179 U/L 100 - 190 U/L [facility] No Panel Informationon 12-02 [facility] T4 FREEon 12-03-2023 Free T4 [Mass/Vol] 1.20 ng/dL 0.89 - 1. 76 ng/dL [facility] Interpretation and review of laboratory results Normal [facility] TSHon 12-03-2023 Interpretation and review of laboratory results Normal [facility] TSH Qn 2.264 m[IU]/L [facility] CBC AND ELECTRONIC DIFFon Basophils (Bld) [#/Vol] 0.12 10*3/uL High 0.00 - 0.09 K/uL [facility] Basophils/100 WBC (Bld) 1.5 % [facility] Differential cell count method Nom (Bld) Electronic Differential [facility] Eosinophils (Bld) [#/Vol] 0.27 10*3/uL 0.00 - 0.48 K/uL [facility] Eosinophils/100 WBC (Bld) 3.5 % [facility] Erythrocyte distribution width (RBC) [Ratio] 12.9 % 10.9 - 14.3 % [facility] Hematocrit (Bld) [Volume fraction] 47.2 % 39.6 - 48.8 % [facility] Hemoglobin (Bld) [Mass/Vol] 15.9 g/dL 13.4 - 16.8 g/dL [facility] Immature granulocytes (Bld) [#/Vol] K/uL NINF - 0.07 K/uL [facility] Immature granulocytes/100 WBC (Bld) 0.3 % [facility] Interpretation and review of laboratory results Abnormal [facility] Lymphocytes (Bld) [#/Vol] 1.60 10*3/uL 0.83 - 3.57 K/uL [facility] Lymphocytes/100 WBC (Bld) 20.6 % [facility] MCH (RBC) [Entitic mass] 30.8 pg 26.1 - 33.3 pg [facility] MCHC (RBC) [Mass/Vol] 33.7 g/dL 31.9 - 36.5 g/dL [facility] MCV (RBC) [Entitic vol] 91.5 fL 79.0 - 94.5 fL [facility] Monocytes (Bld) [#/Vol] 0.72 10*3/uL 0.24 - 0.93 K/uL [facility] Monocytes/100 WBC (Bld) 9.3 % [facility] Neutrophils (Bld) [#/Vol] 5.02 10*3/uL 1.57 - 6.19 K/uL [facility] Nucleated RBC/100 WBC (Bld) [Ratio] 0.0 % [facility] Platelet mean volume (Bld) [Entitic vol] 9.6 fL 8.7 - 12.3 fL [facility] Platelets (Bld) [#/Vol] 244 10*3/uL 146 - 337 K/uL [facility] RBC (Bld) [#/Vol] 5.16 10*6/uL [facility] Segmented neutrophils/100 WBC (Bld) 64.8 % [facility] WBC (Bld) [#/Vol] 7.75 10*3/uL 3.73 - 10. 10 K/uL [facility] COMPREHENSIVE METABOLIC PANE Wilber 11-12-2023 Albumin [Mass/Vol] 4.6 g/dL 3.5 - 5.0 g/dL [facility] ALP [Catalytic activity/Vol] 69 U/L 32 - 126 U/L [facility] ALT [Catalytic activity/Vol] 13 U/L 10 - 52 U/L [facility] Anion gap [Moles/Vol] 11 mmol/L 7 - 17 mmol/L [facility] AST [Catalytic activity/Vol] 18 U/L 10 - 39 U/L [facility] Bilirubin [Mass/Vol] 0.9 mg/dL NINF - 1.5 mg/dL [facility] Calcium [Mass/Vol] 9.6 mg/dL 8.6 - 10. 5 mg/dL [facility] Chloride [Moles/Vol] 104 mmol/L 98 - 10 8 mmol/L [facility] CO2 [Moles/Vol] 26 mmol/L 21 - 31 mmol/L [facility] Creatinine [Mass/Vol] 1.15 mg/dL 0.70 - 1.30 mg/dL [facility] eGFR, CKD-EPI, Male 67 - PINF [facility] Comment on above: Reported eGFR is bas ed on the CKD-EPI 2020 equation using creatinine, age, and sex. Glucose [Mass/Vol] 97 mg/dL 70 - 99 mg/dL [facility] Osmolality Calc [Osmolality] 287 [facility] Potassium [Moles/Vol] 4.3 mmol/L 3.5 - 5.0 mmol/L [facility] Protein [Mass/Vol] 7.1 g/dL 6.4 - 8.3 g/dL [facility] Sodium [Moles/Vol] 137 mmol/L 135 - 145 mmol/L [facility] Urea nitrogen [Mass/Vol] 11 mg/dL 7 - 25 mg/dL [facility] Urea nitrogen/Creatinine [Mass ratio] 10 mg/mg [facility] LACTATE DEHYDROGENASEon 10-26 Interpretation and review of laboratory results Abnormal [facility] LDH Lactate to pyruvate reaction [Catalytic activity/Vol] 200 U/L High 100 - 190 U/L [facility] No Panel Informationon 11-11 [facility] T4 FREEon 11-12-2023 Free T4 [Mass/Vol] 1.24 ng/dL 0.89 - 1. 76 ng/dL [facility] Interpretation and review of laboratory results Normal [facility] TSHon 11-12-2023 Interpretation and review of laboratory results Normal [facility] TSH Qn 3.882 m[IU]/L [facility] CREAT/GFRon 11-05-2023 Creatinine [Mass/Vol] 1.25 mg/dL 0.70 - 1.30 mg/dL [facility] GFR/1.73 sq M.predicted CKD-EPI (S/P/Bld) [Vol rate/Area] 59 Low - PINF [facility] Comment on above: Reported eGFR is bas ed on the CKD-EPI 2020 equation using creatinine, age, and sex. Interpretation and review of laboratory results Abnormal [facility] Test performed at address of the patient encounter. [facility] CBC AND ELECTRONIC DIFFon Basophils (Bld) [#/Vol] 0.13 10*3/uL High 0.00 - 0.09 K/uL [facility] Basophils/100 WBC (Bld) 1.7 % [facility] Differential cell count method Nom (Bld) Electronic Differential [facility] Eosinophils (Bld) [#/Vol] 0.39 10*3/uL 0.00 - 0.48 K/uL [facility] Eosinophils/100 WBC (Bld) 5.0 % [facility] Erythrocyte distribution width (RBC) [Ratio] 13.0 % 10.9 - 14.3 % [facility] Hematocrit (Bld) [Volume fraction] 45.7 % 39.6 - 48.8 % [facility] Hemoglobin (Bld) [Mass/Vol] 15.8 g/dL 13.4 - 16.8 g/dL [facility] Immature granulocytes (Bld) [#/Vol] K/uL NINF - 0.07 K/uL [facility] Immature granulocytes/100 WBC (Bld) 0.3 % [facility] Interpretation and review of laboratory results Abnormal [facility] Lymphocytes (Bld) [#/Vol] 1.71 10*3/uL 0.83 - 3.57 K/uL [facility] Lymphocytes/100 WBC (Bld) 22.0 % [facility] MCH (RBC) [Entitic mass] 31.2 pg 26.1 - 33.3 pg [facility] MCHC (RBC) [Mass/Vol] 34.6 g/dL 31.9 - 36.5 g/dL [facility] MCV (RBC) [Entitic vol] 90.1 fL 79.0 - 94.5 fL [facility] Monocytes (Bld) [#/Vol] 0.69 10*3/uL 0.24 - 0.93 K/uL [facility] Monocytes/100 WBC (Bld) 8.9 % [facility] Neutrophils (Bld) [#/Vol] 4.84 10*3/uL 1.57 - 6.19 K/uL [facility] Nucleated RBC/100 WBC (Bld) [Ratio] 0.0 % [facility] Platelet mean volume (Bld) [Entitic vol] 9.4 fL 8.7 - 12.3 fL [facility] Platelets (Bld) [#/Vol] 276 10*3/uL 146 - 337 K/uL [facility] RBC (Bld) [#/Vol] 5.07 10*6/uL [facility] Segmented neutrophils/100 WBC (Bld) 62.1 % [facility] WBC (Bld) [#/Vol] 7.78 10*3/uL 3.73 - 10. 10 K/uL [facility] COMPREHENSIVE METABOLIC PANE Wilber 10-22-2023 Albumin [Mass/Vol] 4.5 g/dL 3.5 - 5.0 g/dL [facility] ALP [Catalytic activity/Vol] 77 U/L 32 - 126 U/L [facility] ALT [Catalytic activity/Vol] 17 U/L 10 - 52 U/L [facility] Anion gap [Moles/Vol] 10 mmol/L 7 - 17 mmol/L [facility] AST [Catalytic activity/Vol] 18 U/L 10 - 39 U/L [facility] Bilirubin [Mass/Vol] 1.0 mg/dL NINF - 1.5 mg/dL [facility] Calcium [Mass/Vol] 9.5 mg/dL 8.6 - 10. 5 mg/dL [facility] Chloride [Moles/Vol] 103 mmol/L 98 - 10 8 mmol/L [facility] CO2 [Moles/Vol] 29 mmol/L 21 - 31 mmol/L [facility] Creatinine [Mass/Vol] 1.06 mg/dL 0.70 - 1.30 mg/dL [facility] eGFR, CKD-EPI, Male 73 - PINF [facility] Comment on above: Reported eGFR is bas ed on the CKD-EPI 2020 equation using creatinine, age, and sex. Glucose [Mass/Vol] 103 mg/dL High 70 - 99 mg/dL [facility] Interpretation and review of laboratory results Abnormal [facility] Osmolality Calc [Osmolality] 288 [facility] Potassium [Moles/Vol] 4.1 mmol/L 3.5 - 5.0 mmol/L [facility] Protein [Mass/Vol] 7.2 g/dL 6.4 - 8.3 g/dL [facility] Sodium [Moles/Vol] 138 mmol/L 135 - 145 mmol/L [facility] Urea nitrogen [Mass/Vol] 10 mg/dL 7 - 25 mg/dL [facility] Urea nitrogen/Creatinine [Mass ratio] 9 mg/mg [facility] LACTATE DEHYDROGENASEon 09-26 Interpretation and review of laboratory results Normal [facility] LDH Lactate to pyruvate reaction [Catalytic activity/Vol] 176 U/L 100 - 190 U/L [facility] No Panel Informationon 10-21 [facility] T4 FREEon 10-22-2023 Free T4 [Mass/Vol] 1.38 ng/dL 0.89 - 1. 76 ng/dL [facility] Interpretation and review of laboratory results Normal [facility] TSHon 10-22-2023 Interpretation and review of laboratory results Normal [facility] TSH Qn 3.133 m[IU]/L [facility] CBC AND ELECTRONIC DIFFon Basophils (Bld) [#/Vol] 0.11 10*3/uL High 0.00 - 0.09 K/uL [facility] Basophils/100 WBC (Bld) 1.4 % [facility] Differential cell count method Nom (Bld) Electronic Differential [facility] Eosinophils (Bld) [#/Vol] 0.19 10*3/uL 0.00 - 0.48 K/uL [facility] Eosinophils/100 WBC (Bld) 2.4 % [facility] Erythrocyte distribution width (RBC) [Ratio] 12.7 % 10.9 - 14.3 % [facility] Hematocrit (Bld) [Volume fraction] 43.5 % 39.6 - 48.8 % [facility] Hemoglobin (Bld) [Mass/Vol] 15.4 g/dL 13.4 - 16.8 g/dL [facility] Immature granulocytes (Bld) [#/Vol] K/uL NINF - 0.07 K/uL [facility] Immature granulocytes/100 WBC (Bld) 0.2 % [facility] Interpretation and review of laboratory results Abnormal [facility] Lymphocytes (Bld) [#/Vol] 1.81 10*3/uL 0.83 - 3.57 K/uL [facility] Lymphocytes/100 WBC (Bld) 22.5 % [facility] MCH (RBC) [Entitic mass] 31.7 pg 26.1 - 33.3 pg [facility] MCHC (RBC) [Mass/Vol] 35.4 g/dL 31.9 - 36.5 g/dL [facility] MCV (RBC) [Entitic vol] 89.5 fL 79.0 - 94.5 fL [facility] Monocytes (Bld) [#/Vol] 0.55 10*3/uL 0.24 - 0.93 K/uL [facility] Monocytes/100 WBC (Bld) 6.8 % [facility] Neutrophils (Bld) [#/Vol] 5.36 10*3/uL 1.57 - 6.19 K/uL [facility] Nucleated RBC/100 WBC (Bld) [Ratio] 0.0 % [facility] Platelet mean volume (Bld) [Entitic vol] 9.7 fL 8.7 - 12.3 fL [facility] Platelets (Bld) [#/Vol] 233 10*3/uL 146 - 337 K/uL [facility] RBC (Bld) [#/Vol] 4.86 10*6/uL [facility] Segmented neutrophils/100 WBC (Bld) 66.7 % [facility] WBC (Bld) [#/Vol] 8.04 10*3/uL 3.73 - 10. 10 K/uL [facility] COMPREHENSIVE METABOLIC PANE Wilber 10-01-2023 Albumin [Mass/Vol] 4.7 g/dL 3.5 - 5.0 g/dL [facility] ALP [Catalytic activity/Vol] 67 U/L 32 - 126 U/L [facility] ALT [Catalytic activity/Vol] 18 U/L 10 - 52 U/L [facility] Anion gap [Moles/Vol] 10 mmol/L 7 - 17 mmol/L [facility] AST [Catalytic activity/Vol] 16 U/L 10 - 39 U/L [facility] Bilirubin [Mass/Vol] 0.9 mg/dL NINF - 1.5 mg/dL [facility] Calcium [Mass/Vol] 9.6 mg/dL 8.6 - 10. 5 mg/dL [facility] Chloride [Moles/Vol] 102 mmol/L 98 - 10 8 mmol/L [facility] CO2 [Moles/Vol] 28 mmol/L 21 - 31 mmol/L [facility] Creatinine [Mass/Vol] 0.99 mg/dL 0.70 - 1.30 mg/dL [facility] eGFR, CKD-EPI, Male 79 - PINF [facility] Comment on above: Reported eGFR is bas ed on the CKD-EPI 2020 equation using creatinine, age, and sex. Glucose [Mass/Vol] 110 mg/dL High 70 - 99 mg/dL [facility] Interpretation and review of laboratory results Abnormal [facility] Osmolality Calc [Osmolality] 285 [facility] Potassium [Moles/Vol] 4.2 mmol/L 3.5 - 5.0 mmol/L [facility] Protein [Mass/Vol] 7.2 g/dL 6.4 - 8.3 g/dL [facility] Sodium [Moles/Vol] 136 mmol/L 135 - 145 mmol/L [facility] Urea nitrogen [Mass/Vol] 8 mg/dL 7 - 25 mg/dL [facility] Urea nitrogen/Creatinine [Mass ratio] 8 mg/mg [facility] LACTATE DEHYDROGENASEon Interpretation and review of laboratory results Normal [facility] LDH Lactate to pyruvate reaction [Catalytic activity/Vol] 154 U/L 100 - 190 U/L [facility] No Panel Informationon 09-30 [facility] T4 FREEon 10-01-2023 Free T4 [Mass/Vol] 1.40 ng/dL 0.89 - 1. 76 ng/dL [facility] Interpretation and review of laboratory results Normal [facility] TSHon 10-01-2023 Interpretation and review of laboratory results Normal [facility] TSH Qn 1.889 m[IU]/L [facility] Basophil percentageOrdered B y: Marilee Sylvester on 09-19-2023 Bilirubin [Mass/Vol] 1.00 mg/dL 0.20-1.00 [facility] Comment on above: For patients on eltr ombopag therapy, use of Dimension [place] TBIL is not recommended. Chloride [Moles/Vol] 109 mmol/L 98-107 [facility] Glucose [Mass/Vol] 95 mg/dL 74-106 [facility] Hemoglobin (Bld) [Mass/Vol] 13.6 g/dL 13.0-16.5 [facility] Potassium [Moles/Vol] 3.8 mmol/L 3.5-5.1 [facility] Protein [Mass/Vol] 6.2 g/dL 6.4-8.2 [facility] Sodium [Moles/Vol] 138 mmol/L 136-145 [facility] WBC (Bld) [#/Vol] 7.3 10*3/uL 4.4-11.0 [facility] Determination of erythrocyte mean corpuscular volume (MCV)Ordered By: Marilee Sylvester on 09-19-2023 MCV (RBC) [Entitic vol] 89.9 fL 80-94 [facility] Erythrocyte distribution wid th ratioOrdered By: Marileerocky Sylvester on 09-19-2023 Erythrocyte distribution width (RBC) [Ratio] 13.0 % 11.6-14.6 [facility] Erythrocyte distribution wid th standard deviationOrdered By: Marileerocky Sylvester on 09-19-2023 Erythrocyte distribution width (RBC) [Entitic vol] 42.5 fL 35.1-43.9 [facility] Hematocrit Auto (Bld) [Volum e fraction]Ordered By: Marilee Sylvester on 09-19-2023 Hematocrit (Bld) [Volume fraction] 40.8 % 40-54 [facility] Laboratory - Chemistry and C hemistry - challengeOrdered By: Marilee Sylvester on 09-19-2023 Albumin/Globulin [Mass ratio] 1.2 {ratio} 0.9-2.4 [facility] ALP [Catalytic activity/Vol] 58 U/L 45-117 [facility] ALT [Catalytic activity/Vol] 18 U/L 16-61 [facility] CO2 [Moles/Vol] 24.0 mmol/L 21.0-32.0 [facility] Globulin (S) [Mass/Vol] 2.8 g/dL 2.2-4.2 [facility] Urea nitrogen/Creatinine [Mass ratio] 9.4 mg/mg 10-20 [facility] Laboratory - Hematology and Cell countsOrdered By: Marilee Sylvester on 09-19-2023 MCH (RBC) [Entitic mass] 30.0 pg 27.0-32.0 [facility] MCHC (RBC) [Mass/Vol] 33.3 g/dL 32-36 [facility] Platelet mean volume (Bld) [Entitic vol] 9.6 fL 6.2-12.0 [facility] Platelets (Bld) [#/Vol] 214 10*3/uL 150-450 [facility] No Panel InformationOrdered By: Marilee Sylvester on 09-19-2023 Estimated Creatinine Clearance Calc 72.57 ml/min [facility] Estimated GFR (MDRD) Amer 98 mL/min >60 [facility] Comment on above: GFR Calc Estimated GFR (MDRD) Non-Af Amer 81 mL/min >60 [facility] Comment on above: Non- GFR Calc RBC Auto (Bld) [#/Vol]Ordere d By: Marilee Sylvester on 09-19-2023 RBC (Bld) [#/Vol] 4.54 10*6/uL 4.6-6.[address] [facility] Serum or plasma calcium cyndi urement (mass/volume)Ordered By: Marilee Sylvester on 09-19-2023 Calcium [Mass/Vol] 8.8 mg/dL 8.5-10.1 [facility] Serum or plasma creatinine m easurement (mass/volume)Ordered By: Marilee Sylvester on 09-19-2023 Creatinine [Mass/Vol] 0.96 mg/dL 0.70-1.30 [facility] Comment on above: The validity of the calculated GFR & GFRAA in patients over 70 years has not been determined. Clinical correlation is essential. Serum or plasma urea nitroge n measurement (mass/volume)Ordered By: Marilee Sylvester on 09-19-2023 Urea nitrogen [Mass/Vol] 9 mg/dL 7-18 [facility] Thin prep Papanicolaou smear with manual screeningOrdered By: Marilee Sylvester on 09-19-2023 Thin prep Papanicolaou smear with manual screening 3.4 g/dL 3.2-5.0 [facility] Thin prep Papanicolaou smear with manual screening 15 U/L 15-37 [facility] Thin prep Papanicolaou smear with manual screening 5 5-15 [facility] No Panel InformationOrdered By: Braden Hammonds on 09-18-2023 Activated Clotting Time 250 sec 74-137 [facility] Absolute lymphocyte countOrd ered By: Faizan Fraga on 08-28-2023 Lymphocytes Auto (Unsp spec) [#/Vol] 2.07 10*3/uL 0.83-4.51 [facility] Automated lymphocyte count a s percentage of total leukocytesOrdered By: Faizan Fraga on 08-28-2023 Lymphocytes/100 WBC Auto (Unsp spec) 32.6 % 19-41 [facility] Basophil percentageOrdered B y: Faizan Fraga on 08-28-2023 Basophils/100 WBC (Bld) 1.9 % 0-1 [facility] Eosinophils/100 WBC (Bld) 6.5 % 0-5 [facility] Monocytes/100 WBC (Bld) 7.7 % 0-10 [facility] Neutrophils (Bld) [#/Vol] 3.2 10*3/uL 2.0-7.7 [facility] Neutrophils/100 WBC (Bld) 51.0 % 47-70 [facility] Immature granulocytes/100 WB C Auto (Bld)Ordered By: Faizan Fraga on 08-28-2023 Immature granulocytes/100 WBC (Bld) 0.300 % 0.0-0.9 [facility] Comment on above: IG% - Immature Granu locytes (promyelocytes, myelocytes and metamyelocytes) > 1% indicates that a LEFT SHIFT is Present. Laboratory - Chemistry and C hemistry - challengeOrdered By: Faizan Fraga on 08-28-2023 Magnesium [Mass/Vol] 2.5 mg/dL 1.6-2.6 [facility] Laboratory - Hematology and Cell countsOrdered By: Faizan Fraga on 08-28-2023 Nucleated RBC/100 WBC (Bld) [Ratio] 0 % 0-5 [facility] Serum or plasma thyroid stim ulating hormone (TSH) measurement (units/volume)Ordered By: Faizan Fraga on 08-28-2023 TSH Qn 3.63 uIU/mL 0.358-3.74 [facility] Thin prep Papanicolaou smear with manual screeningOrdered By: Faizan Fraga on 08-28-2023 Thin prep Papanicolaou smear with manual screening 1.11 ng/dL 0.76-1.46 [facility] XR Chest PA and Lateralon IMPRESSION: Surgical changes on the right, but no residual pneumothorax visible. 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 No residual pneumothorax. Surgical changes on the right. Clear left lung. Normal heart size. No pulmonary edema. 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 No residual pneumothorax. Surgical changes on the right. Clear left lung. Normal heart size. No pulmonary edema. IMPRESSION IMPRESSION: Surgical changes on the right, but no residual pneumothorax visible. [facility] Radiology Study observation (narrative) [facility] XR Chest PA and LateralOrder ed By: Blue Beth on 06-17-2023 [facility] Work Phone: CBC AND ELECTRONIC DIFFon Basophils (Bld) [#/Vol] 0.06 10*3/uL 0.00 - 0.09 K/uL [facility] Basophils/100 WBC (Bld) 0.4 % [facility] Differential cell count method Nom (Bld) Electronic Differential [facility] Eosinophils (Bld) [#/Vol] 0.07 10*3/uL 0.00 - 0.48 K/uL [facility] Eosinophils/100 WBC (Bld) 0.5 % [facility] Erythrocyte distribution width (RBC) [Ratio] 13.2 % 10.9 - 14.3 % [facility] Hematocrit (Bld) [Volume fraction] 43.1 % 39.6 - 48.8 % [facility] Hemoglobin (Bld) [Mass/Vol] 14.4 g/dL 13.4 - 16.8 g/dL [facility] Immature granulocytes (Bld) [#/Vol] 0.07 10*3/uL NINF - 0.07 K/uL [facility] Immature granulocytes/100 WBC (Bld) 0.5 % [facility] Interpretation and review of laboratory results Abnormal [facility] Lymphocytes (Bld) [#/Vol] 1.62 10*3/uL 0.83 - 3.57 K/uL [facility] Lymphocytes/100 WBC (Bld) 10.5 % [facility] MCH (RBC) [Entitic mass] 31.4 pg 26.1 - 33.3 pg [facility] MCHC (RBC) [Mass/Vol] 33.4 g/dL 31.9 - 36.5 g/dL [facility] MCV (RBC) [Entitic vol] 94.1 fL 79.0 - 94.5 fL [facility] Monocytes (Bld) [#/Vol] 1.22 10*3/uL High 0.24 - 0.93 K/uL [facility] Monocytes/100 WBC (Bld) 7.9 % [facility] Neutrophils (Bld) [#/Vol] 12.46 10*3/uL High 1.57 - 6.19 K/uL [facility] Nucleated RBC/100 WBC (Bld) [Ratio] 0.0 % NINF [facility] Platelet mean volume (Bld) [Entitic vol] 10.5 fL 8.7 - 12.3 fL [facility] Platelets (Bld) [#/Vol] 183 10*3/uL 146 - 337 K/uL [facility] RBC (Bld) [#/Vol] 4.58 10*6/uL [facility] Segmented neutrophils/100 WBC (Bld) 80.2 % [facility] WBC (Bld) [#/Vol] 15.50 10*3/uL High 3.73 - 10 .10 K/uL [facility] CHEM 7 (LYTES,BUN,CREA,GLUC) on 05-30-2023 Anion gap [Moles/Vol] 13 mmol/L 7 - 17 mmol/L [facility] Chloride [Moles/Vol] 104 mmol/L 98 - 10 8 mmol/L [facility] CO2 [Moles/Vol] 24 mmol/L 21 - 31 mmol/L [facility] Creatinine [Mass/Vol] 1.09 mg/dL 0.70 - 1.30 mg/dL [facility] eGFR, CKD-EPI, Male 71 - PINF [facility] Comment on above: Reported eGFR is bas ed on the CKD-EPI 2020 equation using creatinine, age, and sex. Glucose [Mass/Vol] 130 mg/dL High 70 - 99 mg/dL [facility] Interpretation and review of laboratory results Abnormal [facility] Osmolality Calc [Osmolality] 290 [facility] Potassium [Moles/Vol] 4.3 mmol/L 3.5 - 5.0 mmol/L [facility] Sodium [Moles/Vol] 137 mmol/L 135 - 145 mmol/L [facility] Urea nitrogen [Mass/Vol] 13 mg/dL 7 - 25 mg/dL [facility] Urea nitrogen/Creatinine [Mass ratio] 12 mg/mg [facility] MAGNESIUMon 05-30-2023 Interpretation and review of laboratory results Normal [facility] Magnesium [Mass/Vol] 1.9 mg/dL 1.6 - 2 .6 mg/dL [facility] No Panel Informationon 05-30 [facility] Portable XR Chest Viewson IMPRESSION: Interval removal of right chest tube. Small right apicolateral pneumothorax. Stable right basilar atelectasis. I personally viewed and interpreted these images and I have reviewed and approved this report. OLOGY EXAM: XR CHEST PORTABLE, 05/30/2023 10:52 AM COMPARISON: Compared to earlier exam on the same day. CLINICAL INDICATIONS: s/p chest tube removal FINDINGS: (Adequate technique) Implanted Devices: Interval removal of right chest tube. Stable left subclavian approach dual chamber pacemaker with intact leads. Thorax: Stable right basilar atelectasis. Left lung is clear. Small right apicolateral pneumothorax. No definite pleural effusion. Normal heart size. Atherosclerotic calcifications of the aortic arch. Subcutaneous air the right lower neck and right lower lateral chest wall. RADIOLOGY Blue Beth M D, PhD - 05/30/2023 EXAM: XR CHEST PORTABLE, 05/30/2023 10:52 AM COMPARISON: Compared to earlier exam on the same day. CLINICAL INDICATIONS: s/p chest tube removal FINDINGS: (Adequate technique) Implanted Devices: Interval removal of right chest tube. Stable left subclavian approach dual chamber pacemaker with intact leads. Thorax: Stable right basilar atelectasis. Left lung is clear. Small right apicolateral pneumothorax. No definite pleural effusion. Normal heart size. Atherosclerotic calcifications of the aortic arch. Subcutaneous air the right lower neck and right lower lateral chest wall. IMPRESSION IMPRESSION: Interval removal of right chest tube. Small right apicolateral pneumothorax. Stable right basilar atelectasis. I personally viewed and interpreted these images and I have reviewed and approved this report. [facility] Radiology Study observation (narrative) [facility] IMPRESSION: 1. Surgical changes on the right with a chest tube present and no visible pneumothorax. 2. Some increased right basilar volume loss. OLOGY EXAM: XR CHEST PORTABLE, 05/30/2023 07:19 AM CLINICAL INDICATIONS: r/o pneumo RELEVANT CLINICAL HISTORY: COMPARISON: Compared to the prior study performed one day prior. FINDINGS: Unchanged left subclavian dual-lead cardiac pacemaker. Stable right chest tube. No visible pneumothorax. Air in the soft tissues of the right chest wall. Some increased right basilar volume loss. Clear left lung. Normal heart size. No pulmonary edema. Degenerative change of the thoracic spine. RADIOLOGY Blue Beth M D, PhD - 05/30/2023 EXAM: XR CHEST PORTABLE, 05/30/2023 07:19 AM CLINICAL INDICATIONS: r/o pneumo RELEVANT CLINICAL HISTORY: COMPARISON: Compared to the prior study performed one day prior. FINDINGS: Unchanged left subclavian dual-lead cardiac pacemaker. Stable right chest tube. No visible pneumothorax. Air in the soft tissues of the right chest wall. Some increased right basilar volume loss. Clear left lung. Normal heart size. No pulmonary edema. Degenerative change of the thoracic spine. IMPRESSION IMPRESSION: 1. Surgical changes on the right with a chest tube present and no visible pneumothorax. 2. Some increased right basilar volume loss. [facility] Radiology Study observation (narrative) [facility] Portable XR Chest ViewsOrder ed By: Blue Beth on 05-30-2023 [facility] Work Phone: [facility] DIFFon Basophils (Bld) [#/Vol] K/uL 0.00 - 0.09 K/uL [facility] Basophils/100 WBC (Bld) 0.2 % [facility] Differential cell count method Nom (Bld) Electronic Differential [facility] Eosinophils (Bld) [#/Vol] K/uL 0.00 - 0.48 K/uL [facility] Eosinophils/100 WBC (Bld) 0.0 % [facility] Erythrocyte distribution width (RBC) [Ratio] 12.7 % 10.9 - 14.3 % [facility] Hematocrit (Bld) [Volume fraction] 39.6 % 39.6 - 48.8 % [facility] Hemoglobin (Bld) [Mass/Vol] 13.5 g/dL 13.4 - 16.8 g/dL [facility] Immature granulocytes (Bld) [#/Vol] 0.11 10*3/uL High NINF - 0.07 K/uL [facility] Immature granulocytes/100 WBC (Bld) 0.6 % [facility] Interpretation and review of laboratory results Abnormal [facility] Lymphocytes (Bld) [#/Vol] 1.05 10*3/uL 0.83 - 3.57 K/uL [facility] Lymphocytes/100 WBC (Bld) 6.1 % [facility] MCH (RBC) [Entitic mass] 32.0 pg 26.1 - 33.3 pg [facility] MCHC (RBC) [Mass/Vol] 34.1 g/dL 31.9 - 36.5 g/dL [facility] MCV (RBC) [Entitic vol] 93.8 fL 79.0 - 94.5 fL [facility] Monocytes (Bld) [#/Vol] 1.13 10*3/uL High 0.24 - 0.93 K/uL [facility] Monocytes/100 WBC (Bld) 6.6 % [facility] Neutrophils (Bld) [#/Vol] 14.79 10*3/uL High 1.57 - 6.19 K/uL [facility] Nucleated RBC/100 WBC (Bld) [Ratio] 0.0 % NINF [facility] Platelet mean volume (Bld) [Entitic vol] 10.4 fL 8.7 - 12.3 fL [facility] Platelets (Bld) [#/Vol] 197 10*3/uL 146 - 337 K/uL [facility] RBC (Bld) [#/Vol] 4.22 10*6/uL Low [facility] Segmented neutrophils/100 WBC (Bld) 86.5 % [facility] WBC (Bld) [#/Vol] 17.11 10*3/uL High 3.73 - 10 .10 K/uL [facility] CHEM 7 (LYTES,BUN,CREA,GLUC) Ordered By: Polina Meadows on 05-29-2023 Anion gap [Moles/Vol] 16 mmol/L 7 - 17 mmol/L [facility] Chloride [Moles/Vol] 102 mmol/L 98 - 10 8 mmol/L [facility] CO2 [Moles/Vol] 21 mmol/L 21 - 31 mmol/L [facility] Creatinine [Mass/Vol] 1.20 mg/dL 0.70 - 1.30 mg/dL [facility] eGFR, CKD-EPI, Male 63 - PINF [facility] Comment on above: Reported eGFR is bas ed on the CKD-EPI 2020 equation using creatinine, age, and sex. Glucose [Mass/Vol] 193 mg/dL High 70 - 99 mg/dL [facility] Interpretation and review of laboratory results Abnormal [facility] Osmolality Calc [Osmolality] 291 [facility] Potassium [Moles/Vol] 4.4 mmol/L 3.5 - 5.0 mmol/L [facility] Sodium [Moles/Vol] 135 mmol/L 135 - 145 mmol/L [facility] Urea nitrogen [Mass/Vol] 15 mg/dL 7 - 25 mg/dL [facility] Urea nitrogen/Creatinine [Mass ratio] 13 mg/mg [facility] MAGNESIUMon 05-29-2023 Interpretation and review of laboratory results Normal [facility] Magnesium [Mass/Vol] 1.7 mg/dL 1.6 - 2 .6 mg/dL [facility] No Panel Informationon 05-29 ABO/RH(D) TYPE Positive [facility] BLOOD COMPONENT TYPE Red Cells, Leukoreduced [facility] EXPIRATION DATE [facility] Product ABO/RH(D) Positive [facility] Product ABO/RH(D) NUMBER [id number] [facility] PRODUCT CODE [id number] [facility] UNIT STATUS released [facility] PREPARE TO TRANSFUSE OR RED BLOOD CELLSon 05-29-2023 UNIT NUMBER [id number] [facility] UNIT NUMBER [id number] [facility] Portable XR Chest Viewson IMPRESSION: No pneumothorax appreciated currently. OLOGY EXAM: XR CHEST PORTABLE, 05/29/2023 07:17 AM COMPARISON: May 28, 2023 CLINICAL INDICATIONS: pneumothorax RELEVANT CLINICAL HISTORY: FINDINGS: (Adequate technique) Implanted Devices: Stable right chest tube and left-sided ICD. Thorax: No definite pneumothorax currently. No consolidation or pleural effusion. Normal heart size. RADIOLOGY Kassie Leo, DO - 05/29/2023 EXAM: XR CHEST PORTABLE, 05/29/2023 07:17 AM COMPARISON: May 28, 2023 CLINICAL INDICATIONS: pneumothorax RELEVANT CLINICAL HISTORY: FINDINGS: (Adequate technique) Implanted Devices: Stable right chest tube and left-sided ICD. Thorax: No definite pneumothorax currently. No consolidation or pleural effusion. Normal heart size. IMPRESSION IMPRESSION: No pneumothorax appreciated currently. [facility] Radiology Study observation (narrative) [facility] Portable XR Chest ViewsOrder ed By: Kassie Leo on 05-29-2023 [facility] Work Phone: [facility] TYPE RECONFIRMATIONon 05-28-2023 ABO/RH(D) TYPE Positive [facility] CBC AND ELECTRONIC DIFFon Basophils (Bld) [#/Vol] 0.06 10*3/uL 0.00 - 0.09 K/uL [facility] Basophils/100 WBC (Bld) 0.6 % [facility] Differential cell count method Nom (Bld) Electronic Differential [facility] Eosinophils (Bld) [#/Vol] 0.08 10*3/uL 0.00 - 0.48 K/uL [facility] Eosinophils/100 WBC (Bld) 0.8 % [facility] Erythrocyte distribution width (RBC) [Ratio] 12.6 % 10.9 - 14.3 % [facility] Hematocrit (Bld) [Volume fraction] 41.8 % 39.6 - 48.8 % [facility] Hemoglobin (Bld) [Mass/Vol] 14.5 g/dL 13.4 - 16.8 g/dL [facility] Immature granulocytes (Bld) [#/Vol] 0.04 10*3/uL NINF - 0.07 K/uL [facility] Immature granulocytes/100 WBC (Bld) 0.4 % [facility] Interpretation and review of laboratory results Abnormal [facility] Lymphocytes (Bld) [#/Vol] 0.96 10*3/uL 0.83 - 3.57 K/uL [facility] Lymphocytes/100 WBC (Bld) 9.2 % [facility] MCH (RBC) [Entitic mass] 31.5 pg 26.1 - 33.3 pg [facility] MCHC (RBC) [Mass/Vol] 34.7 g/dL 31.9 - 36.5 g/dL [facility] MCV (RBC) [Entitic vol] 90.9 fL 79.0 - 94.5 fL [facility] Monocytes (Bld) [#/Vol] 0.22 10*3/uL Low 0.24 - 0.93 K/uL [facility] Monocytes/100 WBC (Bld) 2.1 % [facility] Neutrophils (Bld) [#/Vol] 9.10 10*3/uL High 1.57 - 6.19 K/uL [facility] Nucleated RBC/100 WBC (Bld) [Ratio] 0.0 % NINF [facility] Platelet mean volume (Bld) [Entitic vol] 9.6 fL 8.7 - 12.3 fL [facility] Platelets (Bld) [#/Vol] 183 10*3/uL 146 - 337 K/uL [facility] RBC (Bld) [#/Vol] 4.60 10*6/uL [facility] Segmented neutrophils/100 WBC (Bld) 86.9 % [facility] WBC (Bld) [#/Vol] 10.46 10*3/uL High 3.73 - 10 .10 K/uL [facility] CHEM 7 (LYTES,BUN,CREA,GLUC) on 05-28-2023 Anion gap [Moles/Vol] 14 mmol/L 7 - 17 mmol/L [facility] Chloride [Moles/Vol] 104 mmol/L 98 - 10 8 mmol/L [facility] CO2 [Moles/Vol] 27 mmol/L 21 - 31 mmol/L [facility] Creatinine [Mass/Vol] 1.13 mg/dL 0.70 - 1.30 mg/dL [facility] eGFR, CKD-EPI, Male 68 - PINF [facility] Comment on above: Reported eGFR is bas ed on the CKD-EPI 2020 equation using creatinine, age, and sex. Glucose [Mass/Vol] 148 mg/dL High 70 - 99 mg/dL [facility] Interpretation and review of laboratory results Abnormal [facility] Osmolality Calc [Osmolality] 297 [facility] Potassium [Moles/Vol] 4.0 mmol/L 3.5 - 5.0 mmol/L [facility] Sodium [Moles/Vol] 141 mmol/L 135 - 145 mmol/L [facility] Urea nitrogen [Mass/Vol] 10 mg/dL 7 - 25 mg/dL [facility] Urea nitrogen/Creatinine [Mass ratio] 9 mg/mg [facility] CONTINUOUS CARDIAC MONITORIN G STRIPon 05-28-2023 [facility] CONTINUOUS CARDIAC MONITORIN G STRIPOrdered By: Unassigned Pacs on 05-28-2023 [facility] Work Phone: No Panel Informationon 05-28 [facility] Radiology Study observation (narrative) [facility] POC ARTERIAL BLOOD GASon Base excess Calc (Bld) [Moles/Vol] -0.5000 mmol/L -3.0 - 3.0 mmol/L [facility] Calcium.ionized (Bld) [Mass/Vol] 4.37 mg/dL Low 4.60 - 5.30 mg/dL [facility] CO2 (Bld) [Partial pressure] 44 mm[Hg] [facility] Glucose [Mass/Vol] 138 mg/dL High 70 - 99 mg/dL [facility] HCO3 (Bld) [Moles/Vol] 25 mmol/L 22 - 28 mmol/L [facility] Hematocrit (Bld) [Volume fraction] 41.0 % 40.2 - 50.4 % [facility] Hemoglobin (Bld) [Mass/Vol] 13.8 g/dL 13.4 - 16.8 g/dL [facility] Interpretation and review of laboratory results Abnormal [facility] Lactate [Moles/Vol] 1.9 mmol/L High 0.5 - 1. 6 mmol/L [facility] Oxygen (Bld) [Partial pressure] 72 mm[Hg] Low [facility] Oxygen saturation in Blood 96 % 94 - 98 % [facility] pH (Bld) 7.36 [pH] 7.35 - 7.45 [facility] Potassium [Moles/Vol] 3.5 mmol/L 3.5 - 5.0 mmol/L [facility] Sodium [Moles/Vol] 137 mmol/L 135 - 145 mmol/L [facility] Specimen source Nom (Unsp spec) Arterial [facility] Test performed at address of the patient encounter. [facility] Portable XR Chest Viewson IMPRESSION: New tiny right pneumothorax status post placement of right chest tube and progressive bibasilar atelectasis. OLOGY EXAM: XR CHEST PORTABLE, 05/28/2023 13:15 PM COMPARISON: April 28, 2023 CLINICAL INDICATIONS: Pneumothorax RELEVANT CLINICAL HISTORY: In PACU or SICU; FINDINGS: (Adequate technique) Implanted Devices: Interval placement of right chest tube with its tip in the medial right upper hemithorax. Stable left subclavian approach dual chamber pacemaker. Thorax: New tiny right apical pneumothorax. No pleural effusion. Progressive bibasilar atelectasis. New mild subcutaneous emphysema in the right chest wall. Stable cardiomediastinal silhouette and osseous structures. RADIOLOGY Tawny Pollack [facility] - 05/28/2023 EXAM: XR CHEST PORTABLE, 05/28/2023 13:15 PM COMPARISON: April 28, 2023 CLINICAL INDICATIONS: Pneumothorax RELEVANT CLINICAL HISTORY: In PACU or SICU; FINDINGS: (Adequate technique) Implanted Devices: Interval placement of right chest tube with its tip in the medial right upper hemithorax. Stable left subclavian approach dual chamber pacemaker. Thorax: New tiny right apical pneumothorax. No pleural effusion. Progressive bibasilar atelectasis. New mild subcutaneous emphysema in the right chest wall. Stable cardiomediastinal silhouette and osseous structures. IMPRESSION IMPRESSION: New tiny right pneumothorax status post placement of right chest tube and progressive bibasilar atelectasis. [facility] Laboratory - Coagulationon 1 aPTT Coag (PPP) [Time] 26.2 s [facility] INR Coag (Bld) [Relative time] 1.1 {INR} 0.9 - 1.1 [facility] PT Coag (PPP) [Time] 13.8 s [facility] No Panel Informationon 05-06 ABO/RH(D) TYPE Positive [facility] Interpretation and review of laboratory results Normal [facility] CBC AND ELECTRONIC DIFFon Basophils (Bld) [#/Vol] 0.11 10*3/uL High 0.00 - 0.09 K/uL [facility] Basophils/100 WBC (Bld) 1.4 % [facility] Differential cell count method Nom (Bld) Electronic Differential [facility] Eosinophils (Bld) [#/Vol] 0.16 10*3/uL 0.00 - 0.48 K/uL [facility] Eosinophils/100 WBC (Bld) 2.0 % [facility] Erythrocyte distribution width (RBC) [Ratio] 12.7 % 10.9 - 14.3 % [facility] Hematocrit (Bld) [Volume fraction] 45.4 % 39.6 - 48.8 % [facility] Hemoglobin (Bld) [Mass/Vol] 15.6 g/dL 13.4 - 16.8 g/dL [facility] Immature granulocytes (Bld) [#/Vol] K/uL NINF - 0.07 K/uL [facility] Immature granulocytes/100 WBC (Bld) 0.4 % [facility] Interpretation and review of laboratory results Abnormal [facility] Lymphocytes (Bld) [#/Vol] 1.93 10*3/uL 0.83 - 3.57 K/uL [facility] Lymphocytes/100 WBC (Bld) 23.9 % [facility] MCH (RBC) [Entitic mass] 31.6 pg 26.1 - 33.3 pg [facility] MCHC (RBC) [Mass/Vol] 34.4 g/dL 31.9 - 36.5 g/dL [facility] MCV (RBC) [Entitic vol] 91.9 fL 79.0 - 94.5 fL [facility] Monocytes (Bld) [#/Vol] 0.50 10*3/uL 0.24 - 0.93 K/uL [facility] Monocytes/100 WBC (Bld) 6.2 % [facility] Neutrophils (Bld) [#/Vol] 5.33 10*3/uL 1.57 - 6.19 K/uL [facility] Nucleated RBC/100 WBC (Bld) [Ratio] 0.0 % [facility] Platelet mean volume (Bld) [Entitic vol] 9.8 fL 8.7 - 12.3 fL [facility] Platelets (Bld) [#/Vol] 218 10*3/uL 146 - 337 K/uL [facility] RBC (Bld) [#/Vol] 4.94 10*6/uL [facility] Segmented neutrophils/100 WBC (Bld) 66.1 % [facility] WBC (Bld) [#/Vol] 8.06 10*3/uL 3.73 - 10. 10 K/uL [facility] CHEM 7 (LYTES,BUN,CREA,GLUC) on 04-28-2023 Anion gap [Moles/Vol] 17 mmol/L 7 - 17 mmol/L [facility] Chloride [Moles/Vol] 105 mmol/L 98 - 10 8 mmol/L [facility] CO2 [Moles/Vol] 24 mmol/L 21 - 31 mmol/L [facility] Creatinine [Mass/Vol] 1.16 mg/dL 0.70 - 1.30 mg/dL [facility] eGFR, CKD-EPI, Male 66 - PINF [facility] Comment on above: Reported eGFR is bas ed on the CKD-EPI 2020 equation using creatinine, age, and sex. Glucose [Mass/Vol] 102 mg/dL High 70 - 99 mg/dL [facility] Interpretation and review of laboratory results Abnormal [facility] Osmolality Calc [Osmolality] 296 [facility] Potassium [Moles/Vol] 4.2 mmol/L 3.5 - 5.0 mmol/L [facility] Sodium [Moles/Vol] 142 mmol/L 135 - 145 mmol/L [facility] Urea nitrogen [Mass/Vol] 11 mg/dL 7 - 25 mg/dL [facility] Urea nitrogen/Creatinine [Mass ratio] 9 mg/mg [facility] CONTINUOUS CARDIAC MONITORIN G STRIPOrdered By: Unassigned Pacs on 04-28-2023 [facility] Work Phone: No Panel InformationOrdered By: lSy Mera on 04-28-2023 [facility] Work Phone: No Panel Informationon 04-28 Radiology Study observation (narrative) [facility] Portable XR Chest Viewson IMPRESSION: Mild patchy bibasilar atelectasis. No pneumothorax. OLOGY EXAM: XR CHEST PORTABLE, 04/28/2023 13:44 PM COMPARISON: No prior studies available for comparison. CLINICAL INDICATIONS: Pneumothorax RELEVANT CLINICAL HISTORY: In PACU.; FINDINGS: (Adequate technique) Implanted Devices: Left-sided dual-chamber pacemaker with leads in the right atrium and right ventricle. Thorax: Mild patchy atelectasis is seen in the lower lung zones. No sizable pleural effusion. No pneumothorax. Heart size is within normal limits. The chest wall structures are grossly unremarkable to extent visualized. RADIOLOGY Sly Mera MD - 04/28/2023 EXAM: XR CHEST PORTABLE, 04/28/2023 13:44 PM COMPARISON: No prior studies available for comparison. CLINICAL INDICATIONS: Pneumothorax RELEVANT CLINICAL HISTORY: In PACU.; FINDINGS: (Adequate technique) Implanted Devices: Left-sided dual-chamber pacemaker with leads in the right atrium and right ventricle. Thorax: Mild patchy atelectasis is seen in the lower lung zones. No sizable pleural effusion. No pneumothorax. Heart size is within normal limits. The chest wall structures are grossly unremarkable to extent visualized. IMPRESSION IMPRESSION: Mild patchy bibasilar atelectasis. No pneumothorax. [facility] Basophil percentageOrdered B y: Pj Ardon on 04-08-2023 Creatinine [Mass/Vol] 1.0 mg/dL 0.70-1.30 [facility] No Panel InformationOrdered By: Pj Ardon on 04-08-2023 Bedside Estimated GFR (eGFR) > 60.0000 mL/min >60 [facility] Absolute lymphocyte countOrd ered By: Pj Ardon on 04-04-2023 Lymphocytes Auto (Unsp spec) [#/Vol] 2.17 10*3/uL 0.83-4.51 [facility] Basophil percentageOrdered B y: Pj Ardon on 04-04-2023 Basophils/100 WBC (Bld) 1.3 % 0-1 [facility] Eosinophils/100 WBC (Bld) 3.1 % 0-5 [facility] Neutrophils (Bld) [#/Vol] 4.6 10*3/uL 2.0-7.7 [facility] Neutrophils/100 WBC (Bld) 59.7 % 47-70 [facility] WBC (Bld) [#/Vol] 7.6 10*3/uL 4.4-11.0 [facility] Blood erythrocytes count (nu mber/volume)Ordered By: Pj Ardon on 04-04-2023 RBC (Bld) [#/Vol] 4.74 10*6/uL 4.6-6.2 [facility] Blood hemoglobin measurement (mass/volume)Ordered By: Pj Ardon on 04-04-2023 Hemoglobin (Bld) [Mass/Vol] 15.3 g/dL 13.0-16.5 [facility] Blood lymphocytes/100 leukoc ytesOrdered By: Pj Ardon on 04-04-2023 Lymphocytes/100 WBC (Bld) 28.4 % 19-41 [facility] Blood monocytes/100 leukocyt esOrdered By: Pj Ardon on 04-04-2023 Monocytes/100 WBC (Bld) 7.2 % 0-10 [facility] Blood platelet mean volumeOr dered By: Pj Ardon on 04-04-2023 Platelet mean volume (Bld) [Entitic vol] 9.5 fL 6.2-12.0 [facility] Determination of erythrocyte mean corpuscular volume (MCV)Ordered By: Pj Ardon on 04-04-2023 MCV (RBC) [Entitic vol] 92.8 fL 80-94 [facility] Hematocrit Auto (Bld) [Volum e fraction]Ordered By: Pj Ardon on 04-04-2023 Hematocrit (Bld) [Volume fraction] 44.0 % 40-54 [facility] INR in Blood by Coagulation assayOrdered By: Pj Ardon on 04-04-2023 INR Coag (Bld) [Relative time] 1.1 {INR} [facility] Laboratory - CoagulationOrde red By: Pj Ardon on 04-04-2023 aPTT Coag (Bld) [Time] 25.0 s 24.1-36.2 [facility] PT Coag (PPP) [Time] 13.9 s 11.7-14.9 [facility] Laboratory - Hematology and Cell countsOrdered By: Pj Ardon on 04-04-2023 Erythrocyte distribution width (RBC) [Entitic vol] 43.3 fL 35.1-43.9 [facility] Erythrocyte distribution width (RBC) [Ratio] 12.6 % 11.6-14.6 [facility] Immature granulocytes/100 WBC (Bld) 0.300 % 0.0-0.9 [facility] Comment on above: IG% - Immature Granu locytes (promyelocytes, myelocytes and metamyelocytes) > 1% indicates that a LEFT SHIFT is Present. MCH (RBC) [Entitic mass] 32.3 pg 27.0-32.0 [facility] Nucleated RBC/100 WBC (Bld) [Ratio] 0 % 0-5 [facility] MCHC Auto (RBC) [Mass/Vol]Or dered By: Pj Ardon on 04-04-2023 MCHC (RBC) [Mass/Vol] 34.8 g/dL 32-36 [facility] Platelets bldOrdered By: Dheeraj Ardon on 04-04-2023 Platelets (Bld) [#/Vol] 205 10*3/uL 150-450 [facility] Basophil percentageOrdered B y: Kashif Frost on 03-05-2023 WBC (Bld) [#/Vol] 7.0 10*3/uL 4.4-11.0 [facility] Blood erythrocytes count (nu mber/volume)Ordered By: Kashif Frost on 03-05-2023 RBC (Bld) [#/Vol] 4.51 10*6/uL 4.6-6.2 [facility] Blood hemoglobin measurement (mass/volume)Ordered By: Kashif Frost on 03-05-2023 Hemoglobin (Bld) [Mass/Vol] 14.4 g/dL 13.0-16.5 [facility] Blood platelet mean volumeOr dered By: Kashif Frost on 03-05-2023 Platelet mean volume (Bld) [Entitic vol] 9.9 fL 6.2-12.0 [facility] Determination of erythrocyte mean corpuscular volume (MCV)Ordered By: Kashif Frost on 03-05-2023 MCV (RBC) [Entitic vol] 95.3 fL 80-94 [facility] Hematocrit Auto (Bld) [Volum e fraction]Ordered By: Kashif Frost on 03-05-2023 Hematocrit (Bld) [Volume fraction] 43.0 % 40-54 [facility] INR in Blood by Coagulation assayOrdered By: Kashif Frost on 03-05-2023 INR Coag (Bld) [Relative time] 1.0 {INR} [facility] Laboratory - CoagulationOrde red By: Kashif Frost on 03-05-2023 aPTT Coag (Bld) [Time] 25.2 s 24.1-36.2 [facility] PT Coag (PPP) [Time] 13.2 s 11.7-14.9 [facility] Laboratory - Hematology and Cell countsOrdered By: Kashif Frost on 03-05-2023 Erythrocyte distribution width (RBC) [Entitic vol] 45.7 fL 35.1-43.9 [facility] Erythrocyte distribution width (RBC) [Ratio] 13.1 % 11.6-14.6 [facility] MCH (RBC) [Entitic mass] 31.9 pg 27.0-32.0 [facility] MCHC Auto (RBC) [Mass/Vol]Or dered By: Kashif Frost on 03-05-2023 MCHC (RBC) [Mass/Vol] 33.5 g/dL 32-36 [facility] Platelets bldOrdered By: Carine Frost on 03-05-2023 Platelets (Bld) [#/Vol] 212 10*3/uL 150-450 [facility] Basic metabolic 2000 panelon 01-13-2023 Anion gap [Moles/Vol] 14 mmol/L 10 - 2 0 mmol/L [facility] Calcium [Mass/Vol] 9.0 mg/dL 8.4 - 10. 2 mg/dL [facility] Chloride [Moles/Vol] 104 mmol/L 98 - 10 8 mmol/L [facility] Creatinine [Mass/Vol] 0.93 mg/dL 0.80 - 1.30 mg/dL [facility] GFR/1.73 sq M.predicted CKD-EPI (S/P/Bld) [Vol rate/Area] 85 - PINF [facility] Comment on above: Estimated GFR was ca lculated using the 2020 CKD-EPI creatinine equation. Glucose [Mass/Vol] 94 mg/dL 65 - 99 mg/dL [facility] HCO3 [Moles/Vol] 23 mmol/L 21 - 32 mmol/L [facility] Interpretation and review of laboratory results Normal [facility] Potassium [Moles/Vol] 3.8 mmol/L 3.5 - 5.1 mmol/L [facility] Sodium [Moles/Vol] 137 mmol/L 135 - 145 mmol/L [facility] Urea nitrogen [Mass/Vol] 15 mg/dL 8 - 25 mg/dL [facility] Urea nitrogen/Creatinine [Mass ratio] 16.1 mg/mg 10.0 - 20.0 [facility] has implemented the eGFR calculation approach that does not have a coefficient for race that conforms to the NKF-ASN Task Force Recommendations. [facility] CBC panel Auto (Bld)on 01-13 Erythrocyte distribution width (RBC) [Entitic vol] 13.1 % 11.6 - 14.8 % [facility] Hematocrit (Bld) [Volume fraction] 40.3 % Low 41.0 - 53.0 % [facility] Hemoglobin (Bld) [Mass/Vol] 13.8 g/dL 13.5 - 17.5 g/dL [facility] Interpretation and review of laboratory results Abnormal [facility] MCH (RBC) [Entitic mass] 31.5 pg 26.0 - 34.0 pg [facility] MCHC (RBC) [Mass/Vol] 34.2 g/dL 31.0 - 37.0 g/dL [facility] MCV (RBC) [Entitic vol] 92.0 fL 80.0 - 100.0 fL [facility] Nucleated RBC (Bld) [#/Vol] 0.00 10*3/uL [facility] Nucleated RBC/100 WBC (Bld) [Ratio] 0.0 % [facility] Platelet mean volume (Bld) [Entitic vol] 10.1 fL 9.4 - 12.4 fL [facility] Platelets (Bld) [#/Vol] 195 10*3/uL [facility] RBC (Bld) [#/Vol] 4.38 10*6/uL Low [facility] WBC (Bld) [#/Vol] 7.16 10*3/uL [facility] EP - Deviceon 01-13-2023 [facility] Radiology Study observation (narrative) [facility] XR CHEST AP/PA AND LATon XR CHEST AP/PA AND LAT EXAMINATION: TWO XRAY VIEWS OF THE CHEST 01/13/2023 7:20 pm COMPARISON: 01/09/2023 HISTORY: ORDERING SYSTEM PROVIDED HISTORY: status post device implant; TECHNOLOGIST PROVIDED HISTORY: Illness/Other Acuity: Acute Reason for Exam: status post device implant Cancer History: unk Surgery, Radiation History: unk Type of Encounter: Unknown Additional signs and symptoms: unk ORDERING SYSTEM PROVIDED DIAGNOSIS CODES: I45.9 Heart block R07.9 Chest pain, unspecified type R06.02 Shortness of breath R03.0 Elevated blood pressure reading R94.31 Prolonged Q-T interval on ECG J18.9 Community acquired pneumonia, unspecified laterality I44.30 AV block FINDINGS: A dual lead left subclavian cardiac pacemaker has been placed with atrial and ventricular leads in satisfactory position. There is no evidence of a pneumothorax. Lungs are hyperinflated. There is suspicion of a right apical lung nodule partially obscured by overlying ribs and clavicle. No confluent airspace disease or pleural fluid. Heart size is within normal limits. No acute bone finding. IMPRESSION: A left dual lead subclavian pacemaker has been placed in satisfactory position. No evidence of a pneumothorax. A nodule/mass is suspected at the right lung apex. A follow-up CT chest is recommended. Workstation ID: [id number] Dictated by: KASSIE SHAIKH on FriJan 13, 2023 10:14:55 PM EDT Transcribed by: KASSIE SHAIKH on FriJan 13, 2023 10:14:55 PM EDT Finalized by: KASSIE SHAIKH on FriJan 13, 2023 10:14:55 PM EDT [facility] Comment on above: Order Comment: Patie nt not to raise affected arm above shoulder height for chest x-ray Injury/Trauma or Illness?:Illness/Other How long have you had these symptoms (acute/chronic)?:Acute Reason for exam?:status post device implant History of cancer?:unk Surgeries, chemotherapy, or radiation?:unk Type of Exam?:Unknown Additional signs and symptoms?:unk XR Chest AP/PA and LATon A left dual lead subclavian pacemaker has been placed in satisfactory position. No evidence of a pneumothorax. A nodule/mass is suspected at the right lung apex. A follow-up CT chest is recommended. Workstation ID: [id number] [facility] EXAMINATION: TWO XRAY VIEWS OF THE CHEST 01/13/2023 7:20 pm COMPARISON: 01/09/2023 HISTORY: ORDERING SYSTEM PROVIDED HISTORY: status post device implant; TECHNOLOGIST PROVIDED HISTORY: Illness/Other Acuity: Acute Reason for Exam: status post device implant Cancer History: unk Surgery, Radiation History: unk Type of Encounter: Unknown Additional signs and symptoms: unk ORDERING SYSTEM PROVIDED DIAGNOSIS CODES: I45.9 Heart block R07.9 Chest pain, unspecified type R06.02 Shortness of breath R03.0 Elevated blood pressure reading R94.31 Prolonged Q-T interval on ECG J18.9 Community acquired pneumonia, unspecified laterality I44.30 AV block FINDINGS: A dual lead left subclavian cardiac pacemaker has been placed with atrial and ventricular leads in satisfactory position. There is no evidence of a pneumothorax. Lungs are hyperinflated. There is suspicion of a right apical lung nodule partially obscured by overlying ribs and clavicle. No confluent airspace disease or pleural fluid. Heart size is within normal limits. No acute bone finding. [facility] Kassie Shaikh MD - 01/13/2023 EXAMINATION: TWO XRAY VIEWS OF THE CHEST 01/13/2023 7:20 pm COMPARISON: 01/09/2023 HISTORY: ORDERING SYSTEM PROVIDED HISTORY: status post device implant; TECHNOLOGIST PROVIDED HISTORY: Illness/Other Acuity: Acute Reason for Exam: status post device implant Cancer History: unk Surgery, Radiation History: unk Type of Encounter: Unknown Additional signs and symptoms: unk ORDERING SYSTEM PROVIDED DIAGNOSIS CODES: I45.9 Heart block R07.9 Chest pain, unspecified type R06.02 Shortness of breath R03.0 Elevated blood pressure reading R94.31 Prolonged Q-T interval on ECG J18.9 Community acquired pneumonia, unspecified laterality I44.30 AV block FINDINGS: A dual lead left subclavian cardiac pacemaker has been placed with atrial and ventricular leads in satisfactory position. There is no evidence of a pneumothorax. Lungs are hyperinflated. There is suspicion of a right apical lung nodule partially obscured by overlying ribs and clavicle. No confluent airspace disease or pleural fluid. Heart size is within normal limits. No acute bone finding. IMPRESSION: A left dual lead subclavian pacemaker has been placed in satisfactory position. No evidence of a pneumothorax. A nodule/mass is suspected at the right lung apex. A follow-up CT chest is recommended. Workstation ID: [id number] [facility] Radiology Study observation (narrative) XR Chest AP/PA and LATOrdere d By: Kassie Shaikh on 01-13-2023 [facility] Work Phone: NM MYOCARDIAL PERFUSION MULT I SPECTon 01-11-2023 NM MYOCARDIAL PERFUSION MULTI SPECT Patient Info Name: PETAR PENNY Age: 77 years : 1945 Gender: Male Ht: 175 cm Wt: 87 kg BSA: 2.08 m2 HR: 76 bpm BP: 152 / 77 mmHg Heart Rhythm: Right Bundle Branch Block Exam Date: 01/10/2023 10:29 AM Patient Status: Outpatient Exam Type: NM MYOCARDIAL PERFUSION MULTI SPECT Study Info Indications - hx CAD Attending Physician: PENNIE [id number] Stress Staff: Deandra Doran Primary Nurse: Leslee Carter RN Supervising Stress Physician: Rozina Kirk MD BMI: 28.35 kg/m2 Summary 1. No stress-induced perfusion defect to suggest ischemia. Exam is limited by inferior attenuation artifact. 2. Post stress left ventricular ejection fraction is normal, >70 %. 3. Gated SPECT imaging reveals normal myocardial wall motion with stress. History/Risk Factors Hypertension: Yes Dyslipidemia: Yes Coronary Artery Disease (CAD) Yes Diabetes Mellitus: Yes Radiopharmaceutical: Tc-99m Sestamibi Administered By: Dasia Duarte ARRT(N), BLOW TORCH BURNER Camera Used: [employer] Radiopharmaceutical: Tc-99m Sestamibi Administered By: Dasia Duarte ARRT(N), BLOW TORCH BURNER Camera Used: [employer] Image Protocol Protocol: Rest/Stress 1 Day Rest Radiopharmaceutical Dose: 9.2 mCi Imaging Date AND Time: 01/10/2023 10:32 AM Patient Position: supine Stress Radiopharmaceutical Dose: 33.4 mCi Imaging Date AND Time: 01/10/2023 12:41 PM Patient Position: supine Injection to Imaging Time: 45 min Injection to Imaging Time: 45 min Injection Date AND Time: 01/10/2023 9:30 AM Injection Date AND Time: 01/10/2023 12:00 PM SPECT Results Perfusion Findings No stress-induced perfusion defect to suggest ischemia. Exam is limited by inferior attenuation artifact. Study Limitations: Inferior Wall / Diaphragmatic Attenuation Functional Results - Name Value Normal - Stress - Stress LV Ejection Fraction 77 % 55-70 Stress LV End Systolic Volume 25.00 ml Nuclear Stress Cardiac Output 5.60 l/min Stress LV End Diastolic Volume 107.00 ml Transient Ischemic Dilatation 1.17 Nuclear Stress Myocardial Mass 143.00 g Functional Findings Gated SPECT imaging reveals normal myocardial wall motion with stress. Post stress left ventricular ejection fraction is normal, >70 %. Report Signatures Stress Finalized by Rozina Kirk MD on 01/10/2023 02:54 PM MPI SPECT Finalized by Allison Wu MD on 01/10/2023 01:09 PM Stress ECG Details Protocol: LEXISCAN Rest HR: 67 bpm Peak HR: 103 bpm Rest Sys BP: 152 mmHg Peak Sys BP: 152 mmHg Max Pred HR: 144 bpm % Max Pred HR: 72 % Target HR: 122 bpm Max RPP: 15,656 bpm*mmHg BP Response: Normal blood pressure response Termination Reason: At the end of vasodilator infusion Cardiac Symptoms: Dyspnea Total Time: 4 min : 0 sec Rest Shea BP: 77 mmHg Peak Shea BP: 77 mmHg Total Dose: 0.4 mg Resting ECG Normal sinus rhythm. First degree A-V Block. Right bundle branch block. IVCD. Stress ECG Non-diagnostic ECG response due to resting abnormalities. Arrhythmias Occasional PVCs. Protocol changed due to: Patient with lightheadness/dizziness . Exercise Tolerance Unable to exercise due to difficulty walking. Stress Summary Non - diagnostic stress electrocardiogram. Dictated by: ALLISON WU on FriJan 10, 2023 2:55:29 PM EDT Transcribed by: ALLISON WU on FriJan 10, 2023 2:55:29 PM EDT Finalized by: ALLISON WU on FriJan 10, 2023 2:55:29 PM EDT [facility] Comment on above: Order Comment: If ca n not get HR elevated high enough, can do lexiscan Injury/Trauma or Illness?:Illness/Other How long have you had these symptoms (acute/chronic)?:Unknown Reason for exam?:cp Type of Exam?:Unknown Additional signs and symptoms?:none Basic metabolic 2000 panelon 01-10-2023 Anion gap [Moles/Vol] 15 mmol/L 10 - 2 0 mmol/L [facility] Calcium [Mass/Vol] 9.4 mg/dL 8.4 - 10. 2 mg/dL [facility] Chloride [Moles/Vol] 108 mmol/L 98 - 10 8 mmol/L [facility] Creatinine [Mass/Vol] 0.94 mg/dL 0.80 - 1.30 mg/dL [facility] GFR/1.73 sq M.predicted CKD-EPI (S/P/Bld) [Vol rate/Area] 84 - PINF [facility] Comment on above: Estimated GFR was ca lculated using the 2020 CKD-EPI creatinine equation. Glucose [Mass/Vol] 102 mg/dL High 65 - 99 mg/dL [facility] HCO3 [Moles/Vol] 23 mmol/L 21 - 32 mmol/L [facility] Interpretation and review of laboratory results Abnormal [facility] Potassium [Moles/Vol] 3.7 mmol/L 3.5 - 5.1 mmol/L [facility] Sodium [Moles/Vol] 142 mmol/L 135 - 145 mmol/L [facility] Urea nitrogen [Mass/Vol] 12 mg/dL 8 - 25 mg/dL [facility] Urea nitrogen/Creatinine [Mass ratio] 12.8 mg/mg 10.0 - 20.0 [facility] has implemented the eGFR calculation approach that does not have a coefficient for race that conforms to the NKF-ASN Task Force Recommendations. [facility] CBC panel Auto (Bld)on 01-10 Erythrocyte distribution width (RBC) [Entitic vol] 12.8 % 11.6 - 14.8 % [facility] Hematocrit (Bld) [Volume fraction] 39.7 % Low 41.0 - 53.0 % [facility] Hemoglobin (Bld) [Mass/Vol] 13.4 g/dL Low 13.5 - 17.5 g/dL [facility] Interpretation and review of laboratory results Abnormal [facility] MCH (RBC) [Entitic mass] 31.1 pg 26.0 - 34.0 pg [facility] MCHC (RBC) [Mass/Vol] 33.8 g/dL 31.0 - 37.0 g/dL [facility] MCV (RBC) [Entitic vol] 92.1 fL 80.0 - 100.0 fL [facility] Nucleated RBC (Bld) [#/Vol] 0.00 10*3/uL [facility] Nucleated RBC/100 WBC (Bld) [Ratio] 0.0 % [facility] Platelet mean volume (Bld) [Entitic vol] 10.3 fL 9.4 - 12.4 fL [facility] Platelets (Bld) [#/Vol] 184 10*3/uL [facility] RBC (Bld) [#/Vol] 4.31 10*6/uL Low [facility] WBC (Bld) [#/Vol] 6.27 10*3/uL [facility] ECG 12 Leadon 01-10-2023 Atrial Rate 63 BPM [facility] P [place] 59 degrees [facility] P-R Interval 392 ms [facility] Q-T Interval 476 ms [facility] QRS Duration 142 ms [facility] QTC Calculation (Bezet) 487 ms [facility] R [place] -59 degrees [facility] T [place] 59 degrees [facility] Ventricular Rate 63 BPM [facility] Sinus rhythm with 1s t degree AV block Right bundle branch block Left anterior fascicular block Bifascicular block Inferior infarct , age undetermined Abnormal ECG When compared with ECG of 28-AUG-2013 05:10, PREVIOUS ECG IS PRESENT Confirmed by Physician, ED ([id number]), newspaper managing editor ANA MITCHELL ([id number]) on 01/10/2023 7:13:17 AM [facility] ECHOCARDIOGRAM COMPLETE W CO NTRASTon 01-10-2023 ECHOCARDIOGRAM COMPLETE W CONTRAST Patient Info Name: PETAR PENNY Age: 77 years : 1945 Gender: Male Ht: 175 cm Wt: 86 kg BSA: 2.06 m2 HR: 63 bpm BP: 142 / 60 mmHg Technical Quality: Technically difficult Exam Date: 01/09/2023 7:28 PM Patient Status: Inpatient Drivers License Examiner: Merly Elise RDCS Exam Type: ECHOCARDIOGRAM COMPLETE W CONTRAST Study Info Indications - abnormal ecg - arrhythmia Referring Physician: DAMON; [id number] Primary Nurse: [id number] BMI: 27.99 kg/m2 Summary 1. Left ventricular systolic function is normal, with ejection fraction estimated at 55 +/- 5%. 2. The study was technically difficult. 3. The left ventricular diastolic function is grade I diastolic dysfunction, consistent with low or normal atrial pressures. 4. Right ventricular systolic function is normal. 5. No clinically significant valvular abnormalities. 6. There is no comparison study available. History/Risk Factors Hypertension: Yes Dyslipidemia: Yes Coronary Artery Disease (CAD) Yes Diabetes Mellitus: Yes History/Risk Factors COPD. Procedure(s): Complete two-dimensional, color flow and Doppler transthoracic echocardiogram is performed with contrast. Definity explained to patient. Patient verbalizes understanding and agrees to proceed. Definity 1.3ml/8.7ml normal sterile saline 3 ml total given IV over 30-60 seconds. Left Ventricle Left ventricular chamber dimension is normal. Normal left ventricular mass. Left ventricular segmental wall motion is grossly normal, however endocardial definition is limited. The left ventricular diastolic function is grade I diastolic dysfunction, consistent with low or normal atrial pressures. Left ventricular systolic function is normal, with ejection fraction estimated at 55 +/- 5%. Right Ventricle Right ventricular chamber dimension is normal. Right ventricular systolic function is normal. Left Atria Left atrial chamber dimension is normal. Right Atria Right atrial chamber dimension is normal. Aortic Valve The aortic valve is poorly visualized, probably trileaflet.. There is no aortic valve stenosis. There is no aortic valve regurgitation. Pulmonic Valve The pulmonic valve is not well visualized. There is no pulmonic valve stenosis. There is no pulmonic regurgitation. Mitral Valve The mitral valve has normal leaflets. There is no mitral valve stenosis. There is no mitral valve regurgitation. Tricuspid Valve The tricuspid valve leaflets are normal. There is no significant tricuspid valve stenosis. There is no tricuspid valve regurgitation. RV systolic pressure could not be accurately estimated. Pericardium/Pleural There is a trivial pericardial effusion. Inferior Vena Cava Normal inferior vena cava with >50% collapse upon inspiration consistent with normal right atrial pressure. Aorta The aortic measurements are indexed to age and body surface area. The aortic root is normal measuring 3.4 cm with an index of 1.7 cm/m2. The proximal ascending aorta is normal measuring 3.5 cm with an index of 1.7 cm/m2. Left Ventricular Outflow Tract - Name Value Normal - LVOT 2D - LVOT Diameter 1.9 cm LVOT Doppler - LVOT Peak Velocity 0.8 m/s Pulmonic Valve - Name Value Normal - PV Doppler - PV Peak Velocity 1.01 m/s Mitral Valve - Name Value Normal - MV Doppler - MV PHT 68 ms MV Area (PHT) 3.2 cm2 4.0-5.0 MV Diastolic Function - MV E Peak Velocity 0.81 m/s MV A Peak Velocity 1.22 m/s MV E/A 0.7 MV Decel Time 236 ms MV Annular TDI - MV Septal e' Velocity 6.9 cm/s >=8.0 MV E/e' (Septal) 11.8 <=8.0 MV Lateral e' Velocity 8.5 cm/s >=10.0 MV E/e' (Lateral) 9.5 <=8.0 MV e' Average 7.67 cm/s MV E/e' (Average) 10.6 Aorta - Name Value Normal - Ascending Aorta - Ao Root Diameter (2D) 3.4 cm 3.1-3.7 Ao Root Diam Index (2D (more content not included)... Normal [facility] Echocardiogram complete w co ntraston 01-10-2023 Patient Info Name: PETAR PENNY Age: 77 years : 1945 Gender: Male Ht: 175 cm Wt: 86 kg BSA: 2.06 m2 HR: 63 bpm BP: 142 / 60 mmHg Technical Quality: Technically difficult Exam Date: 01/09/2023 7:28 PM Patient Status: Inpatient Drivers License Examiner: Merly Elise RDCS Exam Type: ECHOCARDIOGRAM COMPLETE W CONTRAST Study Info Indications - abnormal ecg - arrhythmia Referring Physician: DAMON; [id number] Primary Nurse: [id number] BMI: 27.99 kg/m2 Summary 1. Left ventricular systolic function is normal, with ejection fraction estimated at 55 +/- 5%. 2. The study was technically difficult. 3. The left ventricular diastolic function is grade I diastolic dysfunction, consistent with low or normal atrial pressures. 4. Right ventricular systolic function is normal. 5. No clinically significant valvular abnormalities. 6. There is no comparison study available. History/Risk Factors Hypertension: Yes Dyslipidemia: Yes Coronary Artery Disease (CAD) Yes Diabetes Mellitus: Yes History/Risk Factors COPD. Procedure(s): Complete two-dimensional, color flow and Doppler transthoracic echocardiogram is performed with contrast. Definity explained to patient. Patient verbalizes understanding and agrees to proceed. Definity 1.3ml/8.7ml normal sterile saline 3 ml total given IV over 30-60 seconds. Left Ventricle Left ventricular chamber dimension is normal. Normal left ventricular mass. Left ventricular segmental wall motion is grossly normal, however endocardial definition is limited. The left ventricular diastolic function is grade I diastolic dysfunction, consistent with low or normal atrial pressures. Left ventricular systolic function is normal, with ejection fraction estimated at 55 +/- 5%. Right Ventricle Right ventricular chamber dimension is normal. Right ventricular systolic function is normal. Left Atria Left atrial chamber dimension is normal. Right Atria Right atrial chamber dimension is normal. Aortic Valve The aortic valve is poorly visualized, probably trileaflet.. There is no aortic valve stenosis. There is no aortic valve regurgitation. Pulmonic Valve The pulmonic valve is not well visualized. There is no pulmonic valve stenosis. There is no pulmonic regurgitation. Mitral Valve The mitral valve has normal leaflets. There is no mitral valve stenosis. There is no mitral valve regurgitation. Tricuspid Valve The tricuspid valve leaflets are normal. There is no significant tricuspid valve stenosis. There is no tricuspid valve regurgitation. RV systolic pressure could not be accurately estimated. Pericardium/Pleural There is a trivial pericardial effusion. Inferior Vena Cava Normal inferior vena cava with >50% collapse upon inspiration consistent with normal right atrial pressure. Aorta The aortic measurements are indexed to age and body surface area. The aortic root is normal measuring 3.4 cm with an index of 1.7 cm/m2. The proximal ascending aorta is normal measuring 3.5 cm with an index of 1.7 cm/m2. Left Ventricular Outflow Tract - Name Value Normal - LVOT 2D - LVOT Diameter 1.9 cm LVOT Doppler - LVOT Peak Velocity 0.8 m/s Pulmonic Valve - Name Value Normal - PV Doppler - PV Peak Velocity 1.01 m/s Mitral Valve - Name Value Normal - MV Doppler - MV PHT 68 ms MV Area (PHT) 3.2 cm2 4.0-5.0 MV Diastolic Function - MV E Peak Velocity 0.81 m/s MV A Peak Velocity 1.22 m/s MV E/A 0.7 MV Decel Time 236 ms MV Annular TDI (more content not included)... FUJI SYNAPSE Lisa Naranjo MD - 01/10/2023 Patient Info Name: PETAR PENNY Age: 77 years : 1945 Gender: Male Ht: 175 cm Wt: 86 kg BSA: 2.06 m2 HR: 63 bpm BP: 142 / 60 mmHg Technical Quality: Technically difficult Exam Date: 01/09/2023 7:28 PM Patient Status: Inpatient Drivers License Examiner: Merly Elise RDCS Exam Type: ECHOCARDIOGRAM COMPLETE W CONTRAST Study Info Indications - abnormal ecg - arrhythmia Referring Physician: DAMON; [id number] Primary Nurse: [id number] BMI: 27.99 kg/m2 Summary 1. Left ventricular systolic function is normal, with ejection fraction estimated at 55 +/- 5%. 2. The study was technically difficult. 3. The left ventricular diastolic function is grade I diastolic dysfunction, consistent with low or normal atrial pressures. 4. Right ventricular systolic function is normal. 5. No clinically significant valvular abnormalities. 6. There is no comparison study available. History/Risk Factors Hypertension: Yes Dyslipidemia: Yes Coronary Artery Disease (CAD) Yes Diabetes Mellitus: Yes History/Risk Factors COPD. Procedure(s): Complete two-dimensional, color flow and Doppler transthoracic echocardiogram is performed with contrast. Definity explained to patient. Patient verbalizes understanding and agrees to proceed. Definity 1.3ml/8.7ml normal sterile saline 3 ml total given IV over 30-60 seconds. Left Ventricle Left ventricular chamber dimension is normal. Normal left ventricular mass. Left ventricular segmental wall motion is grossly normal, however endocardial definition is limited. The left ventricular diastolic function is grade I diastolic dysfunction, consistent with low or normal atrial pressures. Left ventricular systolic function is normal, with ejection fraction estimated at 55 +/- 5%. Right Ventricle Right ventricular chamber dimension is normal. Right ventricular systolic function is normal. Left Atria Left atrial chamber dimension is normal. Right Atria Right atrial chamber dimension is normal. Aortic Valve The aortic valve is poorly visualized, probably trileaflet.. There is no aortic valve stenosis. There is no aortic valve regurgitation. Pulmonic Valve The pulmonic valve is not well visualized. There is no pulmonic valve stenosis. There is no pulmonic regurgitation. Mitral Valve The mitral valve has normal leaflets. There is no mitral valve stenosis. There is no mitral valve regurgitation. Tricuspid Valve The tricuspid valve leaflets are normal. There is no significant tricuspid valve stenosis. There is no tricuspid valve regurgitation. RV systolic pressure could not be accurately estimated. Pericardium/Pleural There is a trivial pericardial effusion. Inferior Vena Cava Normal inferior vena cava with >50% collapse upon inspiration consistent with normal right atrial pressure. Aorta The aortic measurements are indexed to age and body surface area. The aortic root is normal measuring 3.4 cm with an index of 1.7 cm/m2. The proximal ascending aorta is normal measuring 3.5 cm with an index of 1.7 cm/m2. Left Ventricular Outflow Tract - Name Value Normal - LVOT 2D - LVOT Diameter 1.9 cm LVOT Doppler - LVOT Peak Velocity 0.8 m/s Pulmonic Valve - Name Value Normal - PV Doppler - PV Peak Velocity 1.01 m/s Mitral Valve - Name Value Normal - MV Doppler - MV PHT 68 ms MV Area (PHT) 3.2 cm2 4.0-5.0 MV Diastolic Function - MV E Peak Velocity 0.81 m/s MV A Peak Velocity 1.22 m/s MV E/A 0.7 MV Decel Time 236 ms MV Annular TDI - MV Septal e' Velocity 6.9 cm/s >=8.0 MV E/e' (Septal) 11.8 <=8.0 MV Lateral e' Velocity 8.5 cm/s >=10.0 MV E/e' (Lateral) 9.5 <=8.0 MV e' Average 7.67 cm/s MV E/e' (Average) 10.6 Aorta - Name Value Normal - Ascending Aorta (more content not included)... [facility] Echocardiogram complete w co ntrastOrdered By: Lisa Yeung on 01-10-2023 [facility] Work Phone: HbA1c (Bld) [Mass fraction]o n 01-10-2023 Average glucose Estimated from glycated hemoglobin (Bld) [Mass/Vol] 117 mg/dL High 74 - 114 mg/dL [facility] Interpretation and review of laboratory results Abnormal [facility] Hemoglobin A1con 01-10-2023 HbA1c (Bld) [Mass fraction] 5.7 % High 4.2 - 5.6 % [facility] INR Coag (PPP) [Relative joan e]on 01-10-2023 Interpretation and review of laboratory results Normal [facility] PT Coag (PPP) [Time] 14.1 s [facility] During the induction phase of oral anticoagulation, the INR may not reflect the anticoagulation status of the patient. Therapeutic ranges for INR's are: Most clinical situations: INR 2.0-3.0 Mechanical Prosthetic Valve: INR 2.5-3.5 Critical: INR >5.0 [facility] Magnesiumon 01-10-2023 Magnesium [Mass/Vol] 2.0 mg/dL 1.6 - 2 .4 mg/dL [facility] Magnesium [Mass/Vol]on 01-10 Interpretation and review of laboratory results Normal [facility] NM Myocardial Perfusion Mult iple SPECTOrdered By: Allison Wu on 01-10-2023 LV Stress Diastolic Volume 107 ml [facility] Work Phone: LV Stress Systolic Volume 25 ml [facility] Work Phone: Stress Nuc Stress EF 77 % [facility] Work Phone: [facility] Work Phone: NM Myocardial Perfusion Mult iple SPECTon 01-10-2023 Patient Info Name: PETAR PENNY Age: 77 years : 1945 Gender: Male Ht: 175 cm Wt: 87 kg BSA: 2.08 m2 HR: 76 bpm BP: 152 / 77 mmHg Heart Rhythm: Right Bundle Branch Block Exam Date: 01/10/2023 10:29 AM Patient Status: Outpatient Exam Type: NM MYOCARDIAL PERFUSION MULTI SPECT Study Info Indications - hx CAD Attending Physician: PENNIE [id number] Stress Staff: Deandra Doran Primary Nurse: Leslee Carter RN Supervising Stress Physician: Rozina Kirk MD BMI: 28.35 kg/m2 Summary 1. No stress-induced perfusion defect to suggest ischemia. Exam is limited by inferior attenuation artifact. 2. Post stress left ventricular ejection fraction is normal, >70 %. 3. Gated SPECT imaging reveals normal myocardial wall motion with stress. History/Risk Factors Hypertension: Yes Dyslipidemia: Yes Coronary Artery Disease (CAD) Yes Diabetes Mellitus: Yes Radiopharmaceutical: Tc-99m Sestamibi Administered By: Dasia Duarte ARRT(N), BLOW TORCH BURNER Camera Used: Siemens Symbia Radiopharmaceutical: Tc-99m Sestamibi Administered By: Dasia Duarte ARRT(N), BLOW TORCH BURNER Camera Used: Siemens Symbia Image Protocol Protocol: Rest/Stress 1 Day Rest Radiopharmaceutical Dose: 9.2 mCi Imaging Date & Time: 01/10/2023 10:32 AM Patient Position: supine Stress Radiopharmaceutical Dose: 33.4 mCi Imaging Date & Time: 01/10/2023 12:41 PM Patient Position: supine Injection to Imaging Time: 45 min Injection to Imaging Time: 45 min Injection Date & Time: 01/10/2023 9:30 AM Injection Date & Time: 01/10/2023 12:00 PM SPECT Results Perfusion Findings No stress-induced perfusion defect to suggest ischemia. Exam is limited by inferior attenuation artifact. Study Limitations: Inferior Wall / Diaphragmatic Attenuation Functional Results - Name Value Normal - Stress - Stress LV Ejection Fraction 77 % 55-70 Stress LV End Systolic Volume 25.00 ml Nuclear Stress Cardiac Output 5.60 l/min Stress LV End Diastolic Volume 107.00 ml Transient Ischemic Dilatation 1.17 Nuclear Stress Myocardial Mass 143.00 g Functional Findings Gated SPECT imaging reveals normal myocardial wall motion with stress. Post stress left ventricular ejection fraction is normal, >70 %. Report Signatures Stress Finalized by Rozina Kirk MD on 01/10/2023 02:54 PM MPI SPECT Finalized by Allison Wu MD on 01/10/2023 01:09 PM Stress ECG Details Protocol: LEXISCAN Rest HR: 67 bpm Peak HR: 103 bpm Rest Sys BP: 152 mmHg Peak Sys BP: 152 mmHg Max Pred HR: 144 bpm % Max Pred HR: 72 % Target HR: 122 bpm Max RPP: 15,656 bpm*mmHg BP Response: Normal blood pressure response Termination Reason: At the end of vasodilator infusion Cardiac Symptoms: Dyspnea Total Time: 4 min : 0 sec Rest Shea BP: 77 mmHg Peak Shea BP: 77 mmHg Total Dose: 0.4 mg Resting ECG Normal sinus rhythm. First degree A-V Block. Right bundle branch block. IVCD. Stress ECG Non-diagnostic ECG response due to resting abnormalities. Arrhythmias Occasional PVCs. Protocol changed due to: Patient with lightheadness/dizziness . Exercise Tolerance Unable to exercise due to difficulty walking. Stress Summary Non - diagnostic stress electrocardiogram. FUJI SYNAPSE SARAH Wu, Allison Crane MD - 01/10/2023 Patient Info Name: PETAR PENNY Age: 77 years : 1945 Gender: Male Ht: 175 cm Wt: 87 kg BSA: 2.08 m2 HR: 76 bpm BP: 152 / 77 mmHg Heart Rhythm: Right Bundle Branch Block Exam Date: 01/10/2023 10:29 AM Patient Status: Outpatient Exam Type: NM MYOCARDIAL PERFUSION MULTI SPECT Study Info Indications - hx CAD Attending Physician: PENNIE [id number] Stress Staff: Deandra Doran Primary Nurse: Leslee Carter RN Supervising Stress Physician: Rozina Kirk MD BMI: 28.35 kg/m2 Summary 1. No stress-induced perfusion defect to suggest ischemia. Exam is limited by inferior attenuation artifact. 2. Post stress left ventricular ejection fraction is normal, >70 %. 3. Gated SPECT imaging reveals normal myocardial wall motion with stress. History/Risk Factors Hypertension: Yes Dyslipidemia: Yes Coronary Artery Disease (CAD) Yes Diabetes Mellitus: Yes Radiopharmaceutical: Tc-99m Sestamibi Administered By: Dasia Duarte ARRT(N), BLOW TORCH BURNER Camera Used: Siemens Symbia Radiopharmaceutical: Tc-99m Sestamibi Administered By: Dasia Duarte ARRT(N), BLOW TORCH BURNER Camera Used: Siemens Symbia Image Protocol Protocol: Rest/Stress 1 Day Rest Radiopharmaceutical Dose: 9.2 mCi Imaging Date & Time: 01/10/2023 10:32 AM Patient Position: supine Stress Radiopharmaceutical Dose: 33.4 mCi Imaging Date & Time: 01/10/2023 12:41 PM Patient Position: supine Injection to Imaging Time: 45 min Injection to Imaging Time: 45 min Injection Date & Time: 01/10/2023 9:30 AM Injection Date & Time: 01/10/2023 12:00 PM SPECT Results Perfusion Findings No stress-induced perfusion defect to suggest ischemia. Exam is limited by inferior attenuation artifact. Study Limitations: Inferior Wall / Diaphragmatic Attenuation Functional Results - Name Value Normal - Stress - Stress LV Ejection Fraction 77 % 55-70 Stress LV End Systolic Volume 25.00 ml Nuclear Stress Cardiac Output 5.60 l/min Stress LV End Diastolic Volume 107.00 ml Transient Ischemic Dilatation 1.17 Nuclear Stress Myocardial Mass 143.00 g Functional Findings Gated SPECT imaging reveals normal myocardial wall motion with stress. Post stress left ventricular ejection fraction is normal, >70 %. Report Signatures Stress Finalized by Rozina Kirk MD on 01/10/2023 02:54 PM MPI SPECT Finalized by Allison Wu MD on 01/10/2023 01:09 PM Stress ECG Details Protocol: LEXISCAN Rest HR: 67 bpm Peak HR: 103 bpm Rest Sys BP: 152 mmHg Peak Sys BP: 152 mmHg Max Pred HR: 144 bpm % Max Pred HR: 72 % Target HR: 122 bpm Max RPP: 15,656 bpm*mmHg BP Response: Normal blood pressure response Termination Reason: At the end of vasodilator infusion Cardiac Symptoms: Dyspnea Total Time: 4 min : 0 sec Rest Shea BP: 77 mmHg Peak Shea BP: 77 mmHg Total Dose: 0.4 mg Resting ECG Normal sinus rhythm. First degree A-V Block. Right bundle branch block. IVCD. Stress ECG Non-diagnostic ECG response due to resting abnormalities. Arrhythmias Occasional PVCs. Protocol changed due to: Patient with lightheadness/dizziness . Exercise Tolerance Unable to exercise due to difficulty walking. Stress Summary Non - diagnostic stress electrocardiogram. [facility] Radiology Study observation (narrative) [facility] No Panel Informationon 01-10 [facility] PT/INRon 01-10-2023 INR Coag (PPP) [Relative time] 1.1 {INR} 0.8 - 1.1 [facility] Phosphate [Mass/Vol]on 01-10 Interpretation and review of laboratory results Abnormal [facility] Phosphoruson 01-10-2023 Phosphate [Mass/Vol] 3.8 mg/dL High 2.3 - 3 .7 mg/dL [facility] Basic metabolic 2000 panelon 01-09-2023 Anion gap [Moles/Vol] 18 mmol/L 10 - 2 0 mmol/L [facility] Calcium [Mass/Vol] 10.0 mg/dL 8.4 - 10. 2 mg/dL [facility] Chloride [Moles/Vol] 104 mmol/L 98 - 10 8 mmol/L [facility] Creatinine [Mass/Vol] 1.08 mg/dL 0.80 - 1.30 mg/dL [facility] GFR/1.73 sq M.predicted CKD-EPI (S/P/Bld) [Vol rate/Area] 71 - PINF [facility] Comment on above: Estimated GFR was ca lculated using the 2020 CKD-EPI creatinine equation. Glucose [Mass/Vol] 86 mg/dL 65 - 99 mg/dL [facility] HCO3 [Moles/Vol] 24 mmol/L 21 - 32 mmol/L [facility] Interpretation and review of laboratory results Normal [facility] Potassium [Moles/Vol] 3.9 mmol/L 3.5 - 5.1 mmol/L [facility] Sodium [Moles/Vol] 142 mmol/L 135 - 145 mmol/L [facility] Urea nitrogen [Mass/Vol] 12 mg/dL 8 - 25 mg/dL [facility] Urea nitrogen/Creatinine [Mass ratio] 11.1 mg/mg 10.0 - 20.0 [facility] Laborator y Services has implemented the eGFR calculation approach that does not have a coefficient for race that conforms to the NKF-ASN Task Force Recommendations. [facility] CBC Auto Differentialon 12-26 Basophils (Bld) [#/Vol] 0.09 10*3/uL [facility] Basophils/100 WBC (Bld) 1.2 % [facility] Eosinophils (Bld) [#/Vol] 0.22 10*3/uL [facility] Eosinophils/100 WBC (Bld) 2.8 % [facility] Erythrocyte distribution width (RBC) [Entitic vol] 12.9 % 11.6 - 14.8 % [facility] Hematocrit (Bld) [Volume fraction] 43.4 % 41.0 - 53.0 % [facility] Hemoglobin (Bld) [Mass/Vol] 14.9 g/dL 13.5 - 17.5 g/dL [facility] Immature granulocytes (Bld) [#/Vol] 0.03 10*3/uL [facility] Immature granulocytes/100 WBC (Bld) 0.40 % [facility] Comment on above: The IG parameter is the percentage of metamyelocytes, myelocytes and promyelocytes. An immature granulocyte count (IG) of 1% or more suggests the possibility of infection, an IG count of 3% is very likely related to an infection. Lymphocytes (Bld) [#/Vol] 1.97 10*3/uL [facility] Lymphocytes/100 WBC (Bld) 25.4 % [facility] MCH (RBC) [Entitic mass] 31.6 pg 26.0 - 34.0 pg [facility] MCHC (RBC) [Mass/Vol] 34.3 g/dL 31.0 - 37.0 g/dL [facility] MCV (RBC) [Entitic vol] 91.9 fL 80.0 - 100.0 fL [facility] Monocytes (Bld) [#/Vol] 0.51 10*3/uL [facility] Monocytes/100 WBC (Bld) 6.6 % [facility] Neutrophils (Bld) [#/Vol] 4.95 10*3/uL [facility] Neutrophils/100 WBC (Bld) 63.6 % [facility] Nucleated RBC (Bld) [#/Vol] 0.00 10*3/uL [facility] Nucleated RBC/100 WBC (Bld) [Ratio] 0.0 % [facility] Platelet mean volume (Bld) [Entitic vol] 9.9 fL 9.4 - 12.4 fL [facility] Platelets (Bld) [#/Vol] 185 10*3/uL [facility] RBC (Bld) [#/Vol] 4.72 10*6/uL [facility] WBC (Bld) [#/Vol] 7.77 10*3/uL [facility] ECG 12 Leadon 01-09-2023 Interpretation and review of laboratory results Abnormal [facility] Cali Hernandez DO 01/09/2023 6:44 PM ECG 12 Lead Date/Time: 01/09/2023 5:51 PM Performed by: Cali Hernandez DO Authorized by: Cali Hernandez DO Interpreted by ED attending physician Comparison: compared with previous ECG from 01/09/2023 Rhythm: sinus rhythm BPM: 63 Conduction: complete RBBB, 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 [facility] Comment on above: Auto resulted. [facility] Magnesium Levelon 01-09-2023 Magnesium [Mass/Vol] 2.1 mg/dL 1.6 - 2 .4 mg/dL [facility] Magnesium [Mass/Vol]on 01-09 Interpretation and review of laboratory results Normal [facility] [place] Topon 01-09-2023 Extra Tube Hold for add-ons. [facility] Comment on above: Auto resulted. [facility] NT Pro BNPon 01-09-2023 Natriuretic peptide.B prohormone N-Terminal [Mass/Vol] 375 pg/mL High 0 - 300 pg/mL [facility] Natriuretic peptide.B prohor torres N-Terminal [Mass/Vol]on 01-09-2023 Interpretation and review of laboratory results Abnormal [facility] Pride Study Cut-offs Rule In: < /= 50 Years >450 pg/mL 51 Years - 75 Years >900 pg/mL 76 Years - 99 Years >1800 pg/mL Rule Out: All patients <300 pg/mL [facility] No Panel Informationon 01-09 Extra Tube Hold for add-ons. [facility] Comment on above: Auto resulted. [facility] Obtain VBG and performon [facility] POC Venous Blood Gas Panel-P ulmon 01-09-2023 Base excess Calc (BldV) [Moles/Vol] 0.8 mmol/L -2.0 - 2.0 [facility] CO2 (BldV) [Partial pressure] 45.9 mm[Hg] [facility] HCO3 (Bld) [Moles/Vol] 26.6 mmol/L 24.0 - 28.0 mmol/L [facility] Hematocrit (BldA) [Volume fraction] 42.5 % 41.0-53.0 % [facility] Hemoglobin (Bld) [Mass/Vol] 13.9 g/dL 13.5 - 17.5 g/dL [facility] Interpretation and review of laboratory results Abnormal [facility] Oxygen (BldV) [Partial pressure] 39 mm[Hg] [facility] Oxygen saturation in Venous blood 73.5 % High 40.0 - 70.0 % [facility] pH (BldV) 7.37 [pH] 7.32 - 7.42 [facility] Phosphate [Mass/Vol]on 01-09 Interpretation and review of laboratory results Abnormal [facility] Phosphoruson 01-09-2023 Phosphate [Mass/Vol] 3.8 mg/dL High 2.3 - 3 .7 mg/dL [facility] TSH DL <= 0.005 mIU/L Qnon 0 01-09-2023 Interpretation and review of laboratory results Normal [facility] TSH Qn 2.63 m[IU]/L [facility] Troponin x 2 (Now and Repeat in 3 hours)on 01-09-2023 Delta Difference Troponin T -1 ng/L < = -/+ 7 change [facility] Interp Troponin T Delta Change No biomarker evidence of cardiac injury. [facility] Troponin T 17 ng/L NINF - 22 ng/L [facility] Troponin T 18 ng/L NINF - 22 ng/L [facility] Troponin T Interpretation Normal [facility] XR CHEST PA/APon 01-09-2023 XR CHEST PA/AP EXAMINATION: ONE XRAY VIEW OF THE CHEST 01/09/2023 5:59 pm COMPARISON: None. HISTORY: ORDERING SYSTEM PROVIDED HISTORY: chest pain, shortness of breath; TECHNOLOGIST PROVIDED HISTORY: Illness/Other Acuity: Acute Reason for Exam: chest pain, shortness of breath Cancer History: unk Surgery, Radiation History: unk Type of Encounter: Initial Additional signs and symptoms: chest pain, shortness of breath ORDERING SYSTEM PROVIDED DIAGNOSIS CODES: I45.9 Heart block R07.9 Chest pain, unspecified type R06.02 Shortness of breath R03.0 Elevated blood pressure reading R94.31 Prolonged Q-T interval on ECG FINDINGS: Patchy left basilar pulmonary infiltrates. No effusion or pneumothorax identified. Cardiac and mediastinal silhouettes are within normal limits. Atherosclerotic calcifications involving the thoracic aorta. No acute osseous abnormality identified. IMPRESSION: Patchy left basilar pulmonary infiltrates. Workstation ID: [id number] Dictated by: CHEO JOHNSON on FriJan 09, 2023 6:39:13 PM EDT Transcribed by: CHEO JOHNSON on FriJan 09, 2023 6:39:13 PM EDT Finalized by: CHEO JOHNSON on FriJan 09, 2023 6:39:13 PM EDT [facility] Comment on above: Order Comment: Injur y/Trauma or Illness?:Illness/Other How long have you had these symptoms (acute/chronic)?:Acute Reason for exam?:chest pain, shortness of breath History of cancer?:unk Surgeries, chemotherapy, or radiation?:unk Type of Exam?:Initial Additional signs and symptoms?:chest pain, shortness of breath XR Chest 1 Viewon 01-09-2023 Patchy left basilar pulmonary infiltrates. Workstation ID: [id number] [facility] EXAMINATION: ONE XRAY VIEW OF THE CHEST 01/09/2023 5:59 pm COMPARISON: None. HISTORY: ORDERING SYSTEM PROVIDED HISTORY: chest pain, shortness of breath; TECHNOLOGIST PROVIDED HISTORY: Illness/Other Acuity: Acute Reason for Exam: chest pain, shortness of breath Cancer History: unk Surgery, Radiation History: unk Type of Encounter: Initial Additional signs and symptoms: chest pain, shortness of breath ORDERING SYSTEM PROVIDED DIAGNOSIS CODES: I45.9 Heart block R07.9 Chest pain, unspecified type R06.02 Shortness of breath R03.0 Elevated blood pressure reading R94.31 Prolonged Q-T interval on ECG FINDINGS: Patchy left basilar pulmonary infiltrates. No effusion or pneumothorax identified. Cardiac and mediastinal silhouettes are within normal limits. Atherosclerotic calcifications involving the thoracic aorta. No acute osseous abnormality identified. [facility] Cheo Johnson MD - 01/09/2023 EXAMINATION: ONE XRAY VIEW OF THE CHEST 01/09/2023 5:59 pm COMPARISON: None. HISTORY: ORDERING SYSTEM PROVIDED HISTORY: chest pain, shortness of breath; TECHNOLOGIST PROVIDED HISTORY: Illness/Other Acuity: Acute Reason for Exam: chest pain, shortness of breath Cancer History: unk Surgery, Radiation History: unk Type of Encounter: Initial Additional signs and symptoms: chest pain, shortness of breath ORDERING SYSTEM PROVIDED DIAGNOSIS CODES: I45.9 Heart block R07.9 Chest pain, unspecified type R06.02 Shortness of breath R03.0 Elevated blood pressure reading R94.31 Prolonged Q-T interval on ECG FINDINGS: Patchy left basilar pulmonary infiltrates. No effusion or pneumothorax identified. Cardiac and mediastinal silhouettes are within normal limits. Atherosclerotic calcifications involving the thoracic aorta. No acute osseous abnormality identified. IMPRESSION: Patchy left basilar pulmonary infiltrates. Workstation ID: [id number] [facility] Radiology Study observation (narrative) [facility] XR Chest 1 ViewOrdered By: Xavier Johnson on 01-09-2023 [facility] XR Comparison Importon 01-09 This order has been auto-finalized and does not contain a result. [facility] Absolute lymphocyte countOrd ered By: Dr. Osborne on 09-10-2022 Lymphocytes Auto (Unsp spec) [#/Vol] 2.15 10*3/uL 0.83-4.51 [facility] Basophil percentageOrdered B y: Dr. Osborne on 09-10-2022 Basophils/100 WBC (Bld) 1.6 % 0-1 [facility] Chloride [Moles/Vol] 107 mmol/L 98-107 [facility] Eosinophils/100 WBC (Bld) 5.1 % 0-5 [facility] Glucose [Mass/Vol] 101 mg/dL 74-106 [facility] Comment on above: Fasting Glucose resu lt from 100 to 125 mg/dL suggests IMPAIRED HOMEOSTASIS per A.D.A. criteria. Neutrophils (Bld) [#/Vol] 3.5 10*3/uL 2.0-7.7 [facility] Neutrophils/100 WBC (Bld) 52.0 % 47-70 [facility] Potassium [Moles/Vol] 4.0 mmol/L 3.5-5.1 [facility] Sodium [Moles/Vol] 142 mmol/L 136-145 [facility] WBC (Bld) [#/Vol] 6.7 10*3/uL 4.4-11.0 [facility] Blood erythrocytes count (nu mber/volume)Ordered By: Dr. Osborne on 09-10-2022 RBC (Bld) [#/Vol] 4.88 10*6/uL 4.6-6.2 [facility] Blood hemoglobin measurement (mass/volume)Ordered By: Dr. Osborne on 09-10-2022 Hemoglobin (Bld) [Mass/Vol] 15.9 g/dL 13.0-16.5 [facility] Blood lymphocytes/100 leukoc ytesOrdered By: Dr. Osborne on 09-10-2022 Lymphocytes/100 WBC (Bld) 32.2 % 19-41 [facility] Blood monocytes/100 leukocyt esOrdered By: Dr. Osborne on 09-10-2022 Monocytes/100 WBC (Bld) 9.0 % 0-10 [facility] Blood platelet mean volumeOr dered By: Dr. Osborne on 09-10-2022 Platelet mean volume (Bld) [Entitic vol] 10.0 fL 6.2-12.0 [facility] Determination of erythrocyte mean corpuscular volume (MCV)Ordered By: Dr. Osborne on 09-10-2022 MCV (RBC) [Entitic vol] 93.4 fL 80-94 [facility] Hematocrit Auto (Bld) [Volum e fraction]Ordered By: Dr. Osborne on 09-10-2022 Hematocrit (Bld) [Volume fraction] 45.6 % 40-54 [facility] Laboratory - Chemistry and C hemistry - challengeOrdered By: Dr. Osborne on 09-10-2022 CO2 [Moles/Vol] 28.0 mmol/L 21.0-32.0 [facility] Urea nitrogen/Creatinine [Mass ratio] 8.5 mg/mg 10-20 [facility] Laboratory - Hematology and Cell countsOrdered By: Dr. Osborne on 09-10-2022 Erythrocyte distribution width (RBC) [Entitic vol] 43.9 fL 35.1-43.9 [facility] Erythrocyte distribution width (RBC) [Ratio] 12.9 % 11.6-14.6 [facility] Immature granulocytes/100 WBC (Bld) 0.100 % 0.0-0.9 [facility] Comment on above: IG% - Immature Granu locytes (promyelocytes, myelocytes and metamyelocytes) > 1% indicates that a LEFT SHIFT is Present. MCH (RBC) [Entitic mass] 32.6 pg 27.0-32.0 [facility] Nucleated RBC/100 WBC (Bld) [Ratio] 0 % 0-5 [facility] Auto (RBC) [Mass/Vol]Or dered By: Dr. Osborne on 09-10-2022 MCHC (RBC) [Mass/Vol] 34.9 g/dL 32-36 [facility] No Panel InformationOrdered By: Dr. Osborne on 09-10-2022 Troponin I High Sensitivity 17 pg/mL 3.0-78.0 [facility] Comment on above: Please Note: [place] t Units and Gender Specific Reference Ranges. For more information see Policy Stat Procedure [place] High Sensitivity Troponin (TNIH) and attachments. Estimated Creatinine Clearance Calc 51.53 ml/min [facility] Estimated GFR (MDRD) Amer 77 mL/min >60 [facility] Comment on above: GFR Calc Estimated GFR (MDRD) Non-Af Amer 64 mL/min >60 [facility] Comment on above: Non- GFR Calc Platelets bldOrdered By: Dr. Osborne on 09-10-2022 Platelets (Bld) [#/Vol] 192 10*3/uL 150-450 [facility] Serum or plasma calcium cyndi urement (mass/volume)Ordered By: Dr. Osborne on 09-10-2022 Calcium [Mass/Vol] 9.1 mg/dL 8.5-10.1 [facility] Serum or plasma creatinine m easurement (mass/volume)Ordered By: Dr. Osborne on 09-10-2022 Creatinine [Mass/Vol] 1.18 mg/dL 0.70-1.30 [facility] Comment on above: The validity of the calculated GFR & GFRAA in patients over 70 years has not been determined. Clinical correlation is essential. Serum or plasma urea nitroge n measurement (mass/volume)Ordered By: Dr. Osborne on 09-10-2022 Urea nitrogen [Mass/Vol] 10 mg/dL 7-18 [facility] Thin prep Papanicolaou smear with manual screeningOrdered By: Dr. Osborne on 09-10-2022 Thin prep Papanicolaou smear with manual screening 7 5-15 [facility] Basophil percentageon 2021 Basophil percentage 0 SEEN /hpf 0-5 [facility] Work Phone: Bilirubin Test strip Ql (U)o n 04-06-2022 Bilirubin Ql (U) Negative Negative [facility] Work Phone: Ketones Test strip Ql (U)on 04-06-2022 Ketones Ql (U) Negative Negative [facility] Work Phone: Mucus LM Ql (Urine sed)on Mucus Ql (Urine sed) 0 SEEN /hpf [facility] Work Phone: Nitrite Test strip Ql (U)on 04-06-2022 Nitrite Ql (U) Negative Negative [facility] Work Phone: Protein Test strip Ql (U)on 04-06-2022 Protein Ql (U) Negative Negative [facility] Work Phone: Squamous epithelial cells de tection in urine sediment by light microscopyon 04-06-2022 Epithelial cells.squamous LM Ql (Urine sed) 0 SEEN /hpf 0-5 [facility] Work Phone: Urine blood detectionon 03-28 RBC Ql (U) 25 /ul Negative [facility] Work Phone: RBC Ql (U) 0 SEEN /hpf 0-5 [facility] Work Phone: Urine clarityon 04-06-2022 Clarity (U) Clear Clear [facility] Work Phone: Urine color determinationon 04-06-2022 Color (U) Yellow Yellow [facility] Work Phone: Urine glucose detectionon Glucose Ql (U) Normal mg/dl Normal [facility] Work Phone: Urine leukocyte esterase det ection by dipstickon 04-06-2022 Leukocyte esterase Test strip Ql (U) Negative Negative [facility] Work Phone: Urine pHon 04-06-2022 pH (U) 7.0 [pH] 5.0 - 8.0 [facility] Work Phone: Urine sediment bacteria coun t by microscopy (number/high power field)on 04-06-2022 Bacteria LM.HPF (Urine sed) [#/Area] 0 /[HPF] None Seen [facility] Work Phone: Urine specific gravity measu rementon 04-06-2022 Specific gravity (U) [Rel density] 1.010 1.002-1.030 [facility] Work Phone: Urobilinogen Auto test strip Ql (U)on 04-06-2022 Urobilinogen Ql (U) Normal mg/dl Normal [facility] Work [facility]: Basophil percentageon 2021 Bilirubin [Mass/Vol] 1.20 mg/dL 0.20-1.00 [facility]: [phone] Comment on above: For patients on eltr ombopag therapy, use of Dimension [place] TBIL is not recommended. Cholesterol [Mass/Vol] 145 mg/dL <200 [facility] Work Phone: Comment on above: <200 mg/dL Desirable 200-240 mg/dL Borderline >240 mg/dL High Risk Protein [Mass/Vol] 7.0 g/dL 6.4-8.2 [facility] Work Phone: [phone] Triglyceride [Mass/Vol] 197 mg/dL <199 [facility] Work Phone: [phone] Comment on above: The drugs N-Acetylcy steine and Metamizole may falsely depress this assay.Serum Triglycerides Reference Interval Normal <150 mg/dL Borderline high 150 - 199 mg/dL High 200 - 499 mg/dL Very High > or = 500 mg/dL Direct bilirubinon Bilirubin.direct [Mass/Vol] 0.18 mg/dL 0.00-0.30 [facility] Work Phone: [phone] Laboratory - Chemistry and C hemistry - challengeon 12-25-2021 ALP [Catalytic activity/Vol] 61 U/L 45-117 [facility] Work Phone: [phone] ALT [Catalytic activity/Vol] 33 U/L 16-61 [facility] Work Phone: [phone] Globulin (S) [Mass/Vol] 3.1 g/dL 2.2-4.2 [facility] Work Phone: Serum or plasma albumin cyndi urement (mass/volume)on 12-25-2021 Albumin [Mass/Vol] 3.9 g/dL 3.2-5.0 [facility] Work Phone: Serum or plasma cholesterol in HDL measurement (mass/volume)on 12-25-2021 Cholesterol in HDL [Mass/Vol] 36 mg/dL >40 [facility] Work Phone: Comment on above: The drugs N-Acetylcy steine and Metamizole may falsely depress this assay. Reference Range HDL <40 mg/dL Low HDL Cholesterol HDL >or= 60 mg/dL High HDL Cholesterol Serum or plasma cholesterol in VLDL measurement (mass/volume)on 12-25-2021 Cholesterol in VLDL [Mass/Vol] 39 mg/dL 5-40 [facility] Work Phone: Serum or plasma low density lipoprotein (LDL) cholesterol measurement (mass/volume)on 12-25-2021 Cholesterol in LDL [Mass/Vol] 70 mg/dL 0-130 [facility] Work Phone: Thin prep Papanicolaou smear with manual screeningon 12-25-2021 Thin prep Papanicolaou smear with manual screening 23 U/L 15-37 [facility] Work Phone: Comment on above: Slight Hemolysis, Re sult may be falsely increased. Hemoglobin A1con 05-30-2021 Glucose [Mass/Vol] 114 mg/dL Normal [facility] Comment on above: Performed By: #### H BA1C #### [facility] Routine Lab [address], [place] [address] HbA1c (Bld) [Mass fraction] 5.6 % Normal 4.3-5.6 [facility] Comment on above: Performed By: #### H BA1C #### [facility] Routine Lab [address], [place] [address] No Panel Information SARS-CoV-2 & FLU Antigen (Rapid) SARS-CoV-2 (COVID 19) [facility] Work Phone: Vital Signs Date Time Vital Sign Value Performing Clinician Facility 02-25-2025 14:34-0400 Body temperature 98.6 [degF] Dr. Makayla Peters MD Work Phone: [facility] 02-25-2025 14:34-0400 Body weight 90.[address] Makayla Peters MD Work Phone: [facility] 02-25-2025 14:34-0400 Diastolic blood pressure 76 mm[Hg] Dr. Makayla Peters MD Work Phone: [facility] 02-25-2025 14:34-0400 Heart rate 75 /min Dr. Makayla Peters MD Work Phone: [facility] 02-25-2025 14:34-0400 Respiratory rate 18 /min Dr. Makayla Peters MD Work Phone: [facility] 02-25-2025 14:34-0400 SaO2% (BldA) [Mass fraction] 96 % Dr. Makayla Peters MD Work Phone: [facility] 02-25-2025 14:34-0400 Systolic blood pressure 137 mm[Hg] Dr. Makayla Peters MD Work Phone: [facility] 02-23-2025 12:56-0400 Body height 178.7 cm Isaac LOPEZ Work Phone: [facility] Comment on above: 02/2302-23-2025 12:56-0400 Body mass index (BMI) [Ratio] 28.64 kg/m2 Isaac LOPEZ Work Phone: [facility] 02-23-2025 12:56-0400 Body temperature 97.3 [degF] Isaac LOPEZ Work Phone: [facility] 02-23-2025 12:56-0400 Body weight 91.44 kg Isaca Hodge WEATHER TEACHER-COMMUNITY NURSE Work Phone: [facility] Comment on above: with shoes on 02-23-2025 12:56-0400 Diastolic blood pressure 71 mm[Hg] Isaac Hodge WEATHER TEACHER-COMMUNITY NURSE Work Phone: [facility] 02-23-2025 12:56-0400 Heart rate 57 /min Isaac Hodge WEATHER TEACHER-COMMUNITY NURSE Work Phone: [facility] 02-23-2025 12:56-0400 Respiratory rate 16 /min Isaac Hodge WEATHER TEACHER-COMMUNITY NURSE Work Phone: [facility] 02-23-2025 12:56-0400 SaO2% (BldA) [Mass fraction] 94 % Isaac Hodge WEATHER TEACHER-COMMUNITY NURSE Work Phone: [facility] 02-23-2025 12:56-0400 Systolic blood pressure 141 mm[Hg] Isaac Hodge WEATHER TEACHER-COMMUNITY NURSE Work Phone: [facility] 01-05-2025 23:56-0400 Body temperature 97.8 [degF] Dr. Makayla Peters MD Work Phone: [facility] 01-05-2025 23:56-0400 Diastolic blood pressure 75 mm[Hg] Dr. Makayla Peters MD Work Phone: [facility] 01-05-2025 23:56-0400 Heart rate 68 /min Dr. Makayla Peters MD Work Phone: [facility] 01-05-2025 23:56-0400 Respiratory rate 18 /min Dr. Makayla Peters MD Work Phone: [facility] 01-05-2025 23:56-0400 SaO2% (BldA) [Mass fraction] 96 % Dr. Makayla Peters MD Work Phone: [facility] 01-05-2025 23:56-0400 Systolic blood pressure 158 mm[Hg] Dr. Makayla Peters MD Work Phone: [facility] 01-05-2025 18:38-0400 Body height 175.[address] Makayla Peters MD Work Phone: [facility] 01-05-2025 18:38-0400 Body mass index (BMI) [Ratio] 29.3 kg/m2 Dr. Makayla Peters MD Work Phone: [facility] 01-05-2025 18:38-0400 Body weight 90.[address] Makayla Peters MD Work Phone: [facility] 12-22-2024 15:23-0400 Body mass index (BMI) [Ratio] 30.41 kg/m2 Mateo Mascorro MD Work Phone: [phone] [address] 12-22-2024 15:23-0400 Body temperature 97.39 [degF] Mateo Mascorro MD Work Phone: [phone] [address] 12-22-2024 15:23-0400 Body weight 90.72 kg Mateo Mascorro MD Work Phone: 7([phone] [place] [address] Comment on above: with shoes on 12-22-2024 15:23-0400 Diastolic blood pressure 68 mm[Hg] Mateo Mascorro MD Work Phone: [phone])241-307060 [address] 12-22-2024 15:23-0400 Heart rate 75 /min Mateo Mascorro MD Work Phone: [facility] 12-22-2024 15:23-0400 Respiratory rate 18 /min Mateo Mascorro MD Work Phone: [facility] 12-22-2024 15:23-0400 SaO2% (BldA) [Mass fraction] 94 % Mateo Mascorro MD Work Phone: [facility] 12-22-2024 15:23-0400 Systolic blood pressure 132 mm[Hg] Mateo Mascorro MD Work Phone: [facility] 12-08-2024 08:17-0400 Body mass index (BMI) [Ratio] 29 kg/m2 Dr. Makayla Peters MD Work Phone: [facility] 12-08-2024 08:17-0400 Body temperature 97.5 [degF] Dr. Makayla Peters MD Work Phone: [facility] 12-08-2024 08:17-0400 Body weight 89.[address] Makayla Peters MD Work Phone: [facility] 12-08-2024 08:17-0400 Diastolic blood pressure 72 mm[Hg] Dr. Makayla Peters MD Work Phone: [facility] 12-08-2024 08:17-0400 Heart rate 78 /min Dr. Makayla Peters MD Work Phone: [facility] 12-08-2024 08:17-0400 Respiratory rate 16 /min Dr. Makayla Peters MD Work Phone: [facility] 12-08-2024 08:17-0400 SaO2% (BldA) [Mass fraction] 95 % Dr. Makayla Peters MD Work Phone: [facility] 12-08-2024 08:17-0400 Systolic blood pressure 128 mm[Hg] Dr. Makayla Peters MD Work Phone: [facility] 11-30-2024 11:31-0400 Body height 175.[address] Makayla Peters MD Work Phone: [facility] 11-30-2024 11:31-0400 Body mass index (BMI) [Ratio] 29.3 kg/m2 Dr. Makayla Peters MD Work Phone: [facility] 11-30-2024 11:31-0400 Body weight 90.[address] Makayla Peters MD Work Phone: [facility] 11-30-2024 11:31-0400 Diastolic blood pressure 66 mm[Hg] Dr. Makayla Peters MD Work Phone: [facility] 11-30-2024 11:31-0400 Heart rate 70 /min Dr. Makayla Peters MD Work Phone: [facility] 11-30-2024 11:31-0400 Respiratory rate 18 /min Dr. aMkayla Peters MD Work Phone: [facility] 11-30-2024 11:31-0400 SaO2% (BldA) [Mass fraction] 94 % Dr. Makayla Peters MD Work Phone: [facility] 11-30-2024 11:31-0400 Systolic blood pressure 132 mm[Hg] Dr. Makayla Peters MD Work Phone: [facility] 11-03-2024 09:54-0400 Body height 172.7 cm Kathryn Tobias MD Work Phone: [facility] 11-03-2024 09:54-0400 Body mass index (BMI) [Ratio] 31.02 kg/m2 Kathryn Tobias MD Work Phone: [facility] 11-03-2024 09:54-0400 Body temperature 97.3 [degF] Kathryn Tobias MD Work Phone: [facility] 11-03-2024 09:54-0400 Body weight 92.53 kg Kathryn Tobias MD Work Phone: [facility] Comment on above: with boots on 11-03-2024 09:54-0400 Diastolic blood pressure 79 mm[Hg] Kathryn Tobias MD Work Phone: [facility] Comment on above: notified TONY Meadows 11-03-2024 09:54-0400 Heart rate 68 /min Kathryn Tobias MD Work Phone: [facility] 11-03-2024 09:54-0400 Respiratory rate 16 /min Kathryn Tobias MD Work Phone: [facility] 11-03-2024 09:54-0400 SaO2% (BldA) [Mass fraction] 94 % Kathryn Tobias MD Work Phone: [facility] 11-03-2024 09:54-0400 Systolic blood pressure 151 mm[Hg] Kathryn Tobias MD Work Phone: [facility] Comment on above: notified TONY Meadows 11-03-2024 08:16-0400 Diastolic blood pressure 83 mm[Hg] Isaac Hodge WEATHER TEACHER-COMMUNITY NURSE Work Phone: [facility] 11-03-2024 08:16-0400 Systolic blood pressure 147 mm[Hg] Isaac Hodge WEATHER TEACHER-COMMUNITY NURSE Work Phone: [facility] 09-20-2024 09:31-0500 Body height 172.7 cm Isaac Hodge WEATHER TEACHER-COMMUNITY NURSE Work Phone: [facility] 09-20-2024 09:31-0500 Body mass index (BMI) [Ratio] 30.7 kg/m2 Isaac Hodge WEATHER TEACHER-COMMUNITY NURSE Work Phone: [facility] 09-20-2024 09:31-0500 Body temperature 97.7 [degF] Isaac Hodge WEATHER TEACHER-COMMUNITY NURSE Work Phone: [facility] 09-20-2024 09:31-0500 Body weight 91.58 kg Isaac Hodge WEATHER TEACHER-COMMUNITY NURSE Work Phone: [facility] Comment on above: with shoes on 09-20-2024 09:31-0500 Diastolic blood pressure 70 mm[Hg] Isaac Hodge WEATHER TEACHER-COMMUNITY NURSE Work Phone: [facility] 09-20-2024 09:31-0500 Heart rate 70 /min Isaac Hodge WEATHER TEACHER-COMMUNITY NURSE Work Phone: [facility] 09-20-2024 09:31-0500 Respiratory rate 16 /min Isaac Hodge WEATHER TEACHER-COMMUNITY NURSE Work Phone: [facility] 09-20-2024 09:31-0500 SaO2% (BldA) [Mass fraction] 94 % Isaac Hodge WEATHER TEACHER-COMMUNITY NURSE Work Phone: [facility] 09-20-2024 09:31-0500 Systolic blood pressure 148 mm[Hg] Isaac Hodge WEATHER TEACHER-COMMUNITY NURSE Work Phone: [facility] 09-14-2024 10:16-0500 Body temperature 97.9 [degF] Mateo Mascorro MD Work Phone: [facility] 09-14-2024 10:16-0500 Diastolic blood pressure 65 mm[Hg] Mateo Mascorro MD Work Phone: [facility] 09-14-2024 10:16-0500 Heart rate 68 /min Mateo Mascorro MD Work Phone: [facility] 09-14-2024 10:16-0500 Respiratory rate 27 /min Mateo Mascorro MD Work Phone: [facility] 09-14-2024 10:16-0500 SaO2% (BldA) [Mass fraction] 96 % Mateo Mascorro MD Work Phone: [facility] 09-14-2024 10:16-0500 Systolic blood pressure 147 mm[Hg] Mateo Mascorro MD Work Phone: [facility] 08-11-2024 10:12-0500 Body height 172.7 cm Kathryn Tobias MD Work Phone: [facility] 08-11-2024 10:12-0500 Body mass index (BMI) [Ratio] 30.52 kg/m2 Kathryn Tobias MD Work Phone: [facility] 08-11-2024 10:12-0500 Body temperature 97.81 [degF] Ktahryn Tobias MD Work Phone: [facility] 08-11-2024 10:12-0500 Body weight 91.04 kg Kathryn Tobias MD Work Phone: [facility] 08-11-2024 10:12-0500 Diastolic blood pressure 63 mm[Hg] Kathryn Tobias MD Work Phone: [facility] 08-11-2024 10:12-0500 Heart rate 79 /min Kathryn Tobias MD Work Phone: [facility] 08-11-2024 10:12-0500 Respiratory rate 18 /min Kathryn Tobias MD Work Phone: [facility] 08-11-2024 10:12-0500 SaO2% (BldA) [Mass fraction] 94 % Kathryn Tobias MD Work Phone: [facility] 08-11-2024 10:12-0500 Systolic blood pressure 121 mm[Hg] Kathryn Tobias MD Work Phone: [facility] 07-29-2024 13:33-0500 Body height 172.7 cm Isaac Hodge APRN-COMMUNITY NURSE Work Phone: [facility] 07-29-2024 13:33-0500 Diastolic blood pressure 68 mm[Hg] Isaac Hodge APRN-COMMUNITY NURSE Work Phone: [facility] 07-29-2024 13:33-0500 Heart rate 75 /min Isaac Hodge WEATHER TEACHER-COMMUNITY NURSE Work Phone: [facility] 07-29-2024 13:33-0500 Systolic blood pressure 141 mm[Hg] Isaac Hodge WEATHER TEACHER-COMMUNITY NURSE Work Phone: [facility] 07-24-2024 14:00-0500 Body temperature 98 [degF] Dr. Makayla Peters MD Work Phone: [facility] 07-24-2024 14:00-0500 Diastolic blood pressure 74 mm[Hg] Dr. Makayla Peters MD Work Phone: [phone] [place] [address] 07-24-2024 14:00-0500 Heart rate 81 /min Dr. Makayla Peters MD Work Phone: [facility] 07-24-2024 14:00-0500 Respiratory rate 16 /min Dr. Makayla Peters MD Work Phone: 5([phone] [place] [address] 07-24-2024 14:00-0500 SaO2% (BldA) [Mass fraction] 99 % Dr. Makayla Peters MD Work Phone: [facility] 07-24-2024 14:00-0500 Systolic blood pressure 121 mm[Hg] Dr. Makayla Peters MD Work Phone: [facility] 07-23-2024 20:17-0500 Body height 175.[address] Makayla Peters MD Work Phone: [facility] 07-23-2024 20:17-0500 Body mass index (BMI) [Ratio] 29.5 kg/m2 Dr. Makayla Peters MD Work Phone: [facility] 07-23-2024 20:17-0500 Body weight 90.[address] Makayla Peters MD Work Phone: [facility] 06-16-2024 13:17-0500 Body height 174 cm Isaac Hodge WEATHER TEACHER-COMMUNITY NURSE Work Phone: [facility] 06-16-2024 13:17-0500 Body mass index (BMI) [Ratio] 30.24 kg/m2 Isaac Hodge WEATHER TEACHER-COMMUNITY NURSE Work Phone: [facility] 06-16-2024 13:17-0500 Body temperature 98.1 [degF] Isaac Hodge WEATHER TEACHER-COMMUNITY NURSE Work Phone: [facility] 06-16-2024 13:17-0500 Body weight 91.54 kg Isaac Hodge WEATHER TEACHER-COMMUNITY NURSE Work Phone: [facility] 06-16-2024 13:17-0500 Diastolic blood pressure 67 mm[Hg] Isaac Hodge WEATHER TEACHER-COMMUNITY NURSE Work Phone: [facility] 06-16-2024 13:17-0500 Heart rate 85 /min Isaac Hodge WEATHER TEACHER-COMMUNITY NURSE Work Phone: [facility] 06-16-2024 13:17-0500 Respiratory rate 18 /min Isaac Hodge WEATHER TEACHER-COMMUNITY NURSE Work Phone: [facility] 06-16-2024 13:17-0500 SaO2% (BldA) [Mass fraction] 93 % Isaac Hodge WEATHER TEACHER-COMMUNITY NURSE Work Phone: [facility] 06-16-2024 13:17-0500 Systolic blood pressure 140 mm[Hg] Isaac Hodge WEATHER TEACHER-COMMUNITY NURSE Work Phone: [facility] 05-24-2024 13:20-0400 Body mass index (BMI) [Ratio] 29.56 kg/m2 Isaac Hodge WEATHER TEACHER-COMMUNITY NURSE Work Phone: [facility] 05-24-2024 13:20-0400 Body temperature 97.9 [degF] Isaac Hodge WEATHER TEACHER-COMMUNITY NURSE Work Phone: [facility] 05-24-2024 13:20-0400 Body weight 89.5 kg Isaac Hodge WEATHER TEACHER-COMMUNITY NURSE Work Phone: [facility] 05-24-2024 13:20-0400 Diastolic blood pressure 63 mm[Hg] Isaac Hodge WEATHER TEACHER-COMMUNITY NURSE Work Phone: [facility] 05-24-2024 13:20-0400 Heart rate 68 /min Isaac Hodge WEATHER TEACHER-COMMUNITY NURSE Work Phone: [facility] 05-24-2024 13:20-0400 Respiratory rate 20 /min Isaac Hodge WEATHER TEACHER-COMMUNITY NURSE Work Phone: [facility] 05-24-2024 13:20-0400 SaO2% (BldA) [Mass fraction] 95 % Isaac Hodge WEATHER TEACHER-COMMUNITY NURSE Work Phone: [facility] 05-24-2024 13:20-0400 Systolic blood pressure 142 mm[Hg] Isaac Hodge WEATHER TEACHER-COMMUNITY NURSE Work Phone: [facility] 04-28-2024 09:38-0400 Body height 174 cm Kathryn Tobias MD Work Phone: [facility] 04-28-2024 09:38-0400 Body mass index (BMI) [Ratio] 29.22 kg/m2 Kathryn Tobias MD Work Phone: [facility] 04-28-2024 09:38-0400 Body temperature 97.7 [degF] Kathryn Tobias MD Work Phone: [facility] 04-28-2024 09:38-0400 Body weight 88.45 kg Kathryn Tobias MD Work Phone: [facility] 04-28-2024 09:38-0400 Diastolic blood pressure 83 mm[Hg] Kathryn Tobias MD Work Phone: [facility] Comment on above: notified Zaira Stacy RN 04-28-2024 09:38-0400 Heart rate 71 /min Kathryn Tobias MD Work Phone: [facility] 04-28-2024 09:38-0400 Respiratory rate 18 /min Kathryn Tobias MD Work Phone: [facility] 04-28-2024 09:38-0400 SaO2% (BldA) [Mass fraction] 96 % Kathryn Tobias MD Work Phone: [facility] 04-28-2024 09:38-0400 Systolic blood pressure 150 mm[Hg] Kathryn Tobias MD Work Phone: [facility] Comment on above: notified Zaira Stacy RN 04-21-2024 09:30-0400 Body height 174 cm Isaac Mendenhallon WEATHER TEACHER-COMMUNITY NURSE Work Phone: [facility] 04-21-2024 09:30-0400 Diastolic blood pressure 70 mm[Hg] Isaac Hodge WEATHER TEACHER-COMMUNITY NURSE Work Phone: [facility] 04-21-2024 09:30-0400 Heart rate 76 /min Isaac Hodge WEATHER TEACHER-COMMUNITY NURSE Work Phone: [facility] 04-21-2024 09:30-0400 Systolic blood pressure 146 mm[Hg] Isaac Hodge WEATHER TEACHER-COMMUNITY NURSE Work Phone: [facility] 04-07-2024 13:46-0400 Diastolic blood pressure 63 mm[Hg] Isaac Hodge WEATHER TEACHER-COMMUNITY NURSE Work Phone: [facility] 04-07-2024 13:46-0400 Heart rate 65 /min Isaac Hodge WEATHER TEACHER-COMMUNITY NURSE Work Phone: [facility] 04-07-2024 13:46-0400 Systolic blood pressure 138 mm[Hg] Isaac Hodge WEATHER TEACHER-COMMUNITY NURSE Work Phone: [facility] 04-07-2024 13:23-0400 Body height 174 cm Isaac Hodge WEATHER TEACHER-COMMUNITY NURSE Work Phone: [facility] 04-07-2024 13:23-0400 Body mass index (BMI) [Ratio] 29.2 kg/m2 Isaac Hodge WEATHER TEACHER-COMMUNITY NURSE Work Phone: [facility] 04-07-2024 13:23-0400 Body temperature 97.3 [degF] Isaac Hodge WEATHER TEACHER-COMMUNITY NURSE Work Phone: [facility] 04-07-2024 13:23-0400 Body weight 88.41 kg Isaac Hodge WEATHER TEACHER-COMMUNITY NURSE Work Phone: [facility] 04-07-2024 13:23-0400 Respiratory rate 16 /min Isaac Hodge WEATHER TEACHER-COMMUNITY NURSE Work Phone: [facility] 04-07-2024 13:23-0400 SaO2% (BldA) [Mass fraction] 96 % Isaac Hodge WEATHER TEACHER-COMMUNITY NURSE Work Phone: [facility] 03-17-2024 11:34-0400 Body height 174 cm Isaac Hodge WEATHER TEACHER-COMMUNITY NURSE Work Phone: [facility] 03-17-2024 11:34-0400 Body mass index (BMI) [Ratio] 28.3 kg/m2 Isaac Hodge WEATHER TEACHER-COMMUNITY NURSE Work Phone: [facility] 03-17-2024 11:34-0400 Body temperature 97.2 [degF] Isaac Hodge WEATHER TEACHER-COMMUNITY NURSE Work Phone: [facility] 03-17-2024 11:34-0400 Body weight 85.68 kg Isaac Hodge WEATHER TEACHER-COMMUNITY NURSE Work Phone: [facility] 03-17-2024 11:34-0400 Diastolic blood pressure 61 mm[Hg] Isaac Hodge WEATHER TEACHER-COMMUNITY NURSE Work Phone: [facility] 03-17-2024 11:34-0400 Heart rate 71 /min Isaac Hodge WEATHER TEACHER-COMMUNITY NURSE Work Phone: [facility] 03-17-2024 11:34-0400 Respiratory rate 18 /min Isaac Hodge WEATHER TEACHER-COMMUNITY NURSE Work Phone: [facility] 03-17-2024 11:34-0400 SaO2% (BldA) [Mass fraction] 95 % Isaac Hodge WEATHER TEACHER-COMMUNITY NURSE Work Phone: [facility] 03-17-2024 11:34-0400 Systolic blood pressure 132 mm[Hg] Isaac Hodge WEATHER TEACHER-COMMUNITY NURSE Work Phone: [facility] 03-10-2024 10:12-0400 Diastolic blood pressure 62 mm[Hg] Isaac Hodge WEATHER TEACHER-COMMUNITY NURSE Work Phone: [facility] 03-10-2024 10:12-0400 Heart rate 83 /min Isaac Hodge WEATHER TEACHER-COMMUNITY NURSE Work Phone: [facility] 03-10-2024 10:12-0400 Systolic blood pressure 115 mm[Hg] Isaac Hodge WEATHER TEACHER-COMMUNITY NURSE Work Phone: [facility] 02-25-2024 11:44-0400 Body height 174 cm Isaac Hodge WEATHER TEACHER-COMMUNITY NURSE Work Phone: [facility] 02-25-2024 11:44-0400 Body mass index (BMI) [Ratio] 29.02 kg/m2 Isaac Hodge WEATHER TEACHER-COMMUNITY NURSE Work Phone: [facility] 02-25-2024 11:44-0400 Body temperature 98.01 [degF] Isaac Hodge WEATHER TEACHER-COMMUNITY NURSE Work Phone: [facility] 02-25-2024 11:44-0400 Body weight 87.86 kg Isaac Hodge WEATHER TEACHER-COMMUNITY NURSE Work Phone: [facility] 02-25-2024 11:44-0400 Diastolic blood pressure 65 mm[Hg] Isaac Hodge WEATHER TEACHER-COMMUNITY NURSE Work Phone: [facility] Comment on above: notified Estrellita Moreno RN 02-25-2024 11:44-0400 Heart rate 73 /min Isaac Hodge WEATHER TEACHER-COMMUNITY NURSE Work Phone: [facility] 02-25-2024 11:44-0400 Respiratory rate 16 /min Isaac Hodge WEATHER TEACHER-COMMUNITY NURSE Work Phone: [facility] 02-25-2024 11:44-0400 SaO2% (BldA) [Mass fraction] 93 % Isaac Hodge APRN-COMMUNITY NURSE Work Phone: [facility] 02-25-2024 11:44-0400 Systolic blood pressure 143 mm[Hg] Isaac Hodge WEATHER TEACHER-COMMUNITY NURSE Work Phone: [facility] Comment on above: notified Estrellita Moreno RN 02-11-2024 08:47-0400 Body height 174 cm Sarahestrella Lubinicio WEATHER TEACHER-COMMUNITY NURSE Work Phone: [facility] 02-11-2024 08:47-0400 Body mass index (BMI) [Ratio] 29.08 kg/m2 Sarahestrella Lubinicio WEATHER TEACHER-COMMUNITY NURSE Work Phone: [facility] 02-11-2024 08:47-0400 Body temperature 98.1 [degF] Sarah Apparicio WEATHER TEACHER-COMMUNITY NURSE Work Phone: [facility] 02-11-2024 08:47-0400 Body weight 88.04 kg Sarah Apparicio WEATHER TEACHER-COMMUNITY NURSE Work Phone: [facility] 02-11-2024 08:47-0400 Diastolic blood pressure 66 mm[Hg] Sarah Apparicio WEATHER TEACHER-COMMUNITY NURSE Work Phone: [facility] 02-11-2024 08:47-0400 Heart rate 77 /min Sarah Apparicio WEATHER TEACHER-COMMUNITY NURSE Work Phone: [facility] 02-11-2024 08:47-0400 Respiratory rate 16 /min Sarah Apparicio WEATHER TEACHER-COMMUNITY NURSE Work Phone: [facility] 02-11-2024 08:47-0400 SaO2% (BldA) [Mass fraction] 95 % Sarah Apparicio WEATHER TEACHER-COMMUNITY NURSE Work Phone: [facility] 02-11-2024 08:47-0400 Systolic blood pressure 148 mm[Hg] Sarah Apparicio WEATHER TEACHER-COMMUNITY NURSE Work Phone: [facility] 01-21-2024 08:19-0400 Body height 174 cm Isaac Vargheseterson WEATHER TEACHER-COMMUNITY NURSE Work Phone: [facility] 01-21-2024 08:19-0400 Body mass index (BMI) [Ratio] 28.98 kg/m2 Isaac Ayesha WEATHER TEACHER-COMMUNITY NURSE Work Phone: [facility] 01-21-2024 08:19-0400 Body temperature 97.7 [degF] Isaac Hodge WEATHER TEACHER-COMMUNITY NURSE Work Phone: [facility] 01-21-2024 08:19-0400 Body weight 87.73 kg Isaac Hodge WEATHER TEACHER-COMMUNITY NURSE Work Phone: [facility] 01-21-2024 08:19-0400 Diastolic blood pressure 65 mm[Hg] Isaac Hodge WEATHER TEACHER-COMMUNITY NURSE Work Phone: [facility] 01-21-2024 08:19-0400 Heart rate 69 /min Isaac Hodge WEATHER TEACHER-COMMUNITY NURSE Work Phone: [facility] 01-21-2024 08:19-0400 Respiratory rate 16 /min Isaac Hodge WEATHER TEACHER-COMMUNITY NURSE Work Phone: [facility] 01-21-2024 08:19-0400 SaO2% (BldA) [Mass fraction] 96 % Isaac Hodge WEATHER TEACHER-COMMUNITY NURSE Work Phone: [facility] 01-21-2024 08:19-0400 Systolic blood pressure 144 mm[Hg] Isaac Hodge WEATHER TEACHER-COMMUNITY NURSE Work Phone: [facility] 12-24-2023 10:06-0400 Body height 174 cm Kathryn Tobias MD Work Phone: [facility] 12-24-2023 10:06-0400 Body mass index (BMI) [Ratio] 29.47 kg/m2 Kathryn Tobias MD Work Phone: [facility] 12-24-2023 10:06-0400 Body temperature 97.59 [degF] Kathryn Tobias MD Work Phone: [facility] 12-24-2023 10:06-0400 Body weight 89.22 kg Kathryn Tobias MD Work Phone: [facility] 12-24-2023 10:06-0400 Diastolic blood pressure 79 mm[Hg] Kathryn Tobias MD Work Phone: [facility] 12-24-2023 10:06-0400 Heart rate 70 /min Kathryn Tobias MD Work Phone: [facility] 12-24-2023 10:06-0400 Respiratory rate 18 /min Kathryn Tobias MD Work Phone: [facility] 12-24-2023 10:06-0400 SaO2% (BldA) [Mass fraction] 94 % Kathryn Tobias MD Work Phone: [facility] 12-24-2023 10:06-0400 Systolic blood pressure 151 mm[Hg] Kathryn Tobias MD Work Phone: [facility] 12-03-2023 12:57-0400 Body height 174 cm Isaac Hodge WEATHER TEACHER-COMMUNITY NURSE Work Phone: [facility] 12-03-2023 12:57-0400 Body mass index (BMI) [Ratio] 29.01 kg/m2 Isaac Hodge WEATHER TEACHER-COMMUNITY NURSE Work Phone: [facility] 12-03-2023 12:57-0400 Body temperature 96.3 [degF] Isaac Hodge WEATHER TEACHER-COMMUNITY NURSE Work Phone: [facility] 12-03-2023 12:57-0400 Body weight 87.82 kg Isaac Hodge WEATHER TEACHER-COMMUNITY NURSE Work Phone: [facility] 12-03-2023 12:57-0400 Diastolic blood pressure 65 mm[Hg] Isaac Hodge WEATHER TEACHER-COMMUNITY NURSE Work Phone: [facility] 12-03-2023 12:57-0400 Heart rate 64 /min Isaac Hodge WEATHER TEACHER-COMMUNITY NURSE Work Phone: [facility] 12-03-2023 12:57-0400 Respiratory rate 18 /min Isaac Hodge WEATHER TEACHER-COMMUNITY NURSE Work Phone: [facility] 12-03-2023 12:57-0400 SaO2% (BldA) [Mass fraction] 95 % Isaac Hodge WEATHER TEACHER-COMMUNITY NURSE Work Phone: [facility] 12-03-2023 12:57-0400 Systolic blood pressure 145 mm[Hg] Isaac Hodge WEATHER TEACHER-COMMUNITY NURSE Work Phone: [facility] 11-26-2023 12:52-0400 Body height 175.[address] Makayla Peters Work Phone: [facility] 11-26-2023 12:52-0400 Body weight 87.[address] Makayla Peters Work Phone: [facility] 11-26-2023 12:52-0400 Heart rate 87 /min Dr. Makayla Peters Work Phone: [facility] 11-26-2023 12:52-0400 SaO2% (BldA) [Mass fraction] 96 % Dr. Makayla Peters Work Phone: [facility] 11-17-2023 07:51-0400 Body mass index (BMI) [Ratio] 28.3 kg/m2 Dr. Makayla Peters Work Phone: [facility] 11-17-2023 07:51-0400 Body temperature 98.4 [degF] Dr. Makayla Peters Work Phone: [facility] 11-17-2023 07:51-0400 Body weight 87.[address] Makayla Peters Work Phone: [facility] 11-17-2023 07:51-0400 Diastolic blood pressure 65 mm[Hg] Dr. Makayla Peters Work Phone: [facility] 11-17-2023 07:51-0400 Heart rate 78 /min Dr. Makayla Peters Work Phone: [facility] 11-17-2023 07:51-0400 SaO2% (BldA) [Mass fraction] 95 % Dr. Makayla Peters Work Phone: [facility] 11-17-2023 07:51-0400 Systolic blood pressure 115 mm[Hg] Dr. Makayla Peters Work Phone: [facility] 11-12-2023 09:39-0400 Body height 175.3 cm Isaac Hodge WEATHER TEACHER-COMMUNITY NURSE Work Phone: [facility] 11-12-2023 09:39-0400 Body mass index (BMI) [Ratio] 28.52 kg/m2 Isaac Hodge WEATHER TEACHER-COMMUNITY NURSE Work Phone: [facility] 11-12-2023 09:39-0400 Body temperature 97.11 [degF] Isaac Hodge WEATHER TEACHER-COMMUNITY NURSE Work Phone: [facility] 11-12-2023 09:39-0400 Body weight 87.59 kg Isaac Hodge WEATHER TEACHER-COMMUNITY NURSE Work Phone: [facility] 11-12-2023 09:39-0400 Diastolic blood pressure 64 mm[Hg] Isaac Hogde WEATHER TEACHER-COMMUNITY NURSE Work Phone: [facility] 11-12-2023 09:39-0400 Heart rate 76 /min Isaac Hodge WEATHER TEACHER-COMMUNITY NURSE Work Phone: [facility] 11-12-2023 09:39-0400 Respiratory rate 18 /min Isaac Hodge WEATHER TEACHER-COMMUNITY NURSE Work Phone: [facility] 11-12-2023 09:39-0400 SaO2% (BldA) [Mass fraction] 93 % Isaac Hodge WEATHER TEACHER-COMMUNITY NURSE Work Phone: [facility] 11-12-2023 09:39-0400 Systolic blood pressure 140 mm[Hg] Isaac Hodge WEATHER TEACHER-COMMUNITY NURSE Work Phone: [facility] 11-07-2023 09:48-0400 Body mass index (BMI) [Ratio] 28.6 kg/m2 Dr. Makayla Peters Work Phone: [facility] 11-07-2023 09:48-0400 Body weight 87.[address] Makayla Peters Work Phone: [facility] 11-07-2023 09:48-0400 Diastolic blood pressure 70 mm[Hg] Dr. Makayla Peters Work Phone: [facility] 11-07-2023 09:48-0400 Heart rate 81 /min Dr. Makayla Peters Work Phone: [facility] 11-07-2023 09:48-0400 Respiratory rate 20 /min Dr. Makayla Peters Work Phone: [facility] 11-07-2023 09:48-0400 SaO2% (BldA) [Mass fraction] 97 % Dr. Makayla Peters Work Phone: [facility] 11-07-2023 09:48-0400 Systolic blood pressure 126 mm[Hg] Dr. Makayla Peters Work Phone: [facility] 11-05-2023 10:29-0400 Body height 175.3 cm Sarah Apparicio WEATHER TEACHER-COMMUNITY NURSE Work Phone: [facility] 11-05-2023 10:29-0400 Body mass index (BMI) [Ratio] 28.35 kg/m2 Sarah Apparicio WEATHER TEACHER-COMMUNITY NURSE Work Phone: [facility] 11-05-2023 10:29-0400 Body weight 87.09 kg Sarah Apparicio WEATHER TEACHER-COMMUNITY NURSE Work Phone: [facility] 11-05-2023 10:29-0400 Diastolic blood pressure 72 mm[Hg] Sarah Apparicio WEATHER TEACHER-COMMUNITY NURSE Work Phone: [facility] 11-05-2023 10:29-0400 Heart rate 70 /min Sarah Apparicio WEATHER TEACHER-COMMUNITY NURSE Work Phone: [facility] 11-05-2023 10:29-0400 Systolic blood pressure 147 mm[Hg] Sarah Apparicio WEATHER TEACHER-COMMUNITY NURSE Work Phone: [facility] 10-22-2023 09:26-0400 Body height 175.3 cm Sarah Apparicio WEATHER TEACHER-COMMUNITY NURSE Work Phone: [facility] 10-22-2023 09:26-0400 Body mass index (BMI) [Ratio] 28.38 kg/m2 Sarah Apparicio WEATHER TEACHER-COMMUNITY NURSE Work Phone: [facility] 10-22-2023 09:26-0400 Body temperature 97.5 [degF] Sarah Apparicio WEATHER TEACHER-COMMUNITY NURSE Work Phone: [facility] 10-22-2023 09:26-0400 Body weight 87.18 kg Sarah Apparicio WEATHER TEACHER-COMMUNITY NURSE Work Phone: [facility] 10-22-2023 09:26-0400 Diastolic blood pressure 72 mm[Hg] Sarah Apparicio WEATHER TEACHER-COMMUNITY NURSE Work Phone: [facility] 10-22-2023 09:26-0400 Heart rate 72 /min Sarah Apparicio WEATHER TEACHER-COMMUNITY NURSE Work Phone: [facility] 10-22-2023 09:26-0400 Respiratory rate 16 /min Sarah Apparicio WEATHER TEACHER-COMMUNITY NURSE Work Phone: [facility] 10-22-2023 09:26-0400 SaO2% (BldA) [Mass fraction] 96 % Sarah Lubinicio WEATHER TEACHER-COMMUNITY NURSE Work Phone: [facility] 10-22-2023 09:26-0400 Systolic blood pressure 149 mm[Hg] Sarah Lubinicio WEATHER TEACHER-COMMUNITY NURSE Work Phone: [facility] 10-01-2023 11:08-0500 Body height 175.3 cm Polina Ede LOWERYN-COMMUNITY NURSE Work Phone: [facility] 10-01-2023 11:08-0500 Body mass index (BMI) [Ratio] 28.21 kg/m2 Polina Ede WEATHER TEACHER-COMMUNITY NURSE Work Phone: [facility] 10-01-2023 11:08-0500 Body temperature 97.59 [degF] Polina Ede LOWERYN-COMMUNITY NURSE Work Phone: [facility] 10-01-2023 11:08-0500 Body weight 86.64 kg Polina Ede WEATHER TEACHER-COMMUNITY NURSE Work Phone: [facility] 10-01-2023 11:08-0500 Diastolic blood pressure 61 mm[Hg] Polina Ede LOWERYN-COMMUNITY NURSE Work Phone: [facility] 10-01-2023 11:08-0500 Heart rate 73 /min Polina Ede LOWERYN-COMMUNITY NURSE Work Phone: [facility] 10-01-2023 11:08-0500 Respiratory rate 16 /min Polina Ede WEATHER TEACHER-COMMUNITY NURSE Work Phone: [facility] 10-01-2023 11:08-0500 SaO2% (BldA) [Mass fraction] 95 % Polina Ede LOWERYN-COMMUNITY NURSE Work Phone: [facility] 10-01-2023 11:08-0500 Systolic blood pressure 130 mm[Hg] Polina Mera APRN-COMMUNITY NURSE Work Phone: [facility] 09-19-2023 08:27-0500 Body temperature 97.9 [degF] Dr. Makayla Peters Work Phone: [facility] 09-19-2023 08:27-0500 Diastolic blood pressure 88 mm[Hg] Dr. Makayla Peters Work Phone: [facility] 09-19-2023 08:27-0500 Heart rate 76 /min Dr. Makayla Peters Work Phone: [facility] 09-19-2023 08:27-0500 Respiratory rate 18 /min Dr. Makayla Peters Work Phone: [facility] 09-19-2023 08:27-0500 SaO2% (BldA) [Mass fraction] 96 % Dr. Makayla Peters Work Phone: [facility] 09-19-2023 08:27-0500 Systolic blood pressure 147 mm[Hg] Dr. Makayla Peters Work Phone: [facility] 09-18-2023 07:10-0500 Body height 175.[address] Makayla Peters Work Phone: [facility] 09-18-2023 07:10-0500 Body weight 92.[address] Makayla Peters Work Phone: [facility] 09-17-2023 09:55-0500 Body mass index (BMI) [Ratio] 30.2 kg/m2 Dr. Makayla Peters Work Phone: [facility] 05-30-2023 08:29-0400 Body temperature 98.01 [degF] Jake Valenzuela MD Work Phone: [facility] 05-30-2023 08:29-0400 Diastolic blood pressure 72 mm[Hg] Jake Valenzuela MD Work Phone: [facility] 05-30-2023 08:29-0400 Heart rate 101 /min Jake Valenzuela MD Work Phone: [facility] 05-30-2023 08:29-0400 Respiratory rate 24 /min Jake Valenzuela MD Work Phone: [facility] 05-30-2023 08:29-0400 SaO2% (BldA) [Mass fraction] 93 % Jake Valenzuela MD Work Phone: [facility] 05-30-2023 08:29-0400 Systolic blood pressure 158 mm[Hg] Jake Valenzuela MD Work Phone: [facility] 05-30-2023 06:54-0400 Body mass index (BMI) [Ratio] 29.62 kg/m2 Jake Valenzuela MD Work Phone: [phone] [address] 05-30-2023 06:54-0400 Body weight 90.99 kg Jake Valenzuela MD Work Phone: [facility] 05-28-2023 05:21-0400 Body height 175.3 cm Jake Valenzuela MD Work Phone: [facility] 05-06-2023 11:05-0400 Body mass index (BMI) [Ratio] 30.11 kg/m2 Jake Valenzuela MD Work Phone: [facility] 05-06-2023 11:05-0400 Body temperature 97.2 [degF] Jake Valenzuela MD Work Phone: [facility] 05-06-2023 11:05-0400 Body weight 89.81 kg Jake Valenzuela MD Work Phone: [facility] 05-06-2023 11:05-0400 Diastolic blood pressure 68 mm[Hg] Jake Valenzuela MD Work Phone: [facility] 05-06-2023 11:05-0400 Heart rate 67 /min Jake Valenzuela MD Work Phone: [facility] 05-06-2023 11:05-0400 Respiratory rate 18 /min Jake Valenzuela MD Work Phone: [facility] 05-06-2023 11:05-0400 SaO2% (BldA) [Mass fraction] 95 % Jake Valenzuela MD Work Phone: [facility] 05-06-2023 11:05-0400 Systolic blood pressure 155 mm[Hg] Jake Valenzuela MD Work Phone: [facility] 04-28-2023 15:05-0400 Diastolic blood pressure 70 mm[Hg] Jake Valenzuela MD Work Phone: [phone] [address] 04-28-2023 15:05-0400 Heart rate 81 /min Jake Valenzuela MD Work Phone: [facility] 04-28-2023 15:05-0400 Respiratory rate 18 /min Jake Valenzuela MD Work Phone: [facility] 04-28-2023 15:05-0400 SaO2% (BldA) [Mass fraction] 93 % Jake Valenzuela MD Work Phone: [facility] 04-28-2023 15:05-0400 Systolic blood pressure 145 mm[Hg] Jake Valenzuela MD Work Phone: [facility] 04-28-2023 14:42-0400 Body temperature 97.59 [degF] Jake Valenzuela MD Work Phone: [facility] 04-28-2023 11:25-0400 Body mass index (BMI) [Ratio] 29.65 kg/m2 Jake Valenzuela MD Work Phone: [facility] 04-28-2023 11:25-0400 Body weight 88.45 kg Jake Valenzuela MD Work Phone: [facility] 04-08-2023 13:04-0400 Diastolic blood pressure 71 mm[Hg] Dr. Makayla Peters Work Phone: [facility] 04-08-2023 13:04-0400 Heart rate 85 /min Dr. Makayla Peters Work Phone: [facility] 04-08-2023 13:04-0400 Respiratory rate 18 /min Dr. Makayla Peters Work Phone: [facility] 04-08-2023 13:04-0400 SaO2% (BldA) [Mass fraction] 91 % Dr. Makayla Peters Work Phone: [facility] 04-08-2023 13:04-0400 Systolic blood pressure 135 mm[Hg] Dr. Makayla Peters Work Phone: [facility] 04-04-2023 10:35-0400 Diastolic blood pressure 71 mm[Hg] Dr. Makayla Peters Work Phone: [facility] 04-04-2023 10:35-0400 Heart rate 66 /min Dr. Makayla Peters Work Phone: [facility] 04-04-2023 10:35-0400 Respiratory rate 18 /min Dr. Makayla Peters Work Phone: [facility] 04-04-2023 10:35-0400 SaO2% (BldA) [Mass fraction] 96 % Dr. Makayla Peters Work Phone: [facility] 04-04-2023 10:35-0400 Systolic blood pressure 144 mm[Hg] Dr. Makayla Peters Work Phone: [facility] 04-04-2023 09:04-0400 Inhaled oxygen flow rate 3 L/min Dr. Makayla Peters Work Phone: [facility] 04-04-2023 08:11-0400 Body height 175.[address] Makayla Peters Work Phone: [facility] 04-04-2023 08:11-0400 Body mass index (BMI) [Ratio] 28 kg/m2 Dr. Makayla Peters Work Phone: [facility] 04-04-2023 08:11-0400 Body temperature 98.8 [degF] Dr. Makayla Peters Work Phone: [facility] 04-04-2023 08:11-0400 Body weight 86.[address] Makayla Peters Work Phone: [facility] 03-24-2023 08:56-0400 Body height 175.[address] Makayla Peters Work Phone: [facility] 03-24-2023 08:56-0400 Body mass index (BMI) [Ratio] 28.8 kg/m2 Dr. Makayla Peters Work Phone: [facility] 03-24-2023 08:56-0400 Body temperature 99.2 [degF] Dr. Makayla Peters Work Phone: [facility] 03-24-2023 08:56-0400 Body weight 88.[address] Makayla Peters Work Phone: [facility] 03-24-2023 08:56-0400 Diastolic blood pressure 76 mm[Hg] Dr. Makayla Peters Work Phone: [facility] 03-24-2023 08:56-0400 Heart rate 82 /min Dr. Makayla Peters Work Phone: [facility] 03-24-2023 08:56-0400 Respiratory rate 16 /min Dr. Makayla Peters Work Phone: [facility] 03-24-2023 08:56-0400 SaO2% (BldA) [Mass fraction] 97 % Dr. Makayla Peters Work Phone: [facility] 03-24-2023 08:56-0400 Systolic blood pressure 148 mm[Hg] Dr. Makayla Peters Work Phone: [facility] 03-11-2023 08:00-0400 Body mass index (BMI) [Ratio] 28.2 kg/m2 Dr. Makayla Peters Work Phone: [facility] 03-11-2023 08:00-0400 Body temperature 98.1 [degF] Dr. Makayla Peters Work Phone: [facility] 03-11-2023 08:00-0400 Body weight 86.[address] Makayla Peters Work Phone: [facility] 03-11-2023 08:00-0400 Diastolic blood pressure 67 mm[Hg] Dr. Makayla Peters Work Phone: [facility] 03-11-2023 08:00-0400 Heart rate 80 /min Dr. Makayla Peters Work Phone: [facility] 03-11-2023 08:00-0400 Respiratory rate 18 /min Dr. Makayla Peters Work Phone: [facility] 03-11-2023 08:00-0400 SaO2% (BldA) [Mass fraction] 97 % Dr. Makayla Peters Work Phone: [facility] 03-11-2023 08:00-0400 Systolic blood pressure 139 mm[Hg] Dr. Makayla Peters Work Phone: [facility] 03-05-2023 13:00-0400 Diastolic blood pressure 65 mm[Hg] Dr. Makayla Peters Work Phone: [facility] 03-05-2023 13:00-0400 Heart rate 60 /min Dr. Makayla Peters Work Phone: [facility] 03-05-2023 13:00-0400 Respiratory rate 18 /min Dr. Makayla Peters Work Phone: [facility] 03-05-2023 13:00-0400 SaO2% (BldA) [Mass fraction] 98 % Dr. Makayla Peters Work Phone: [facility] 03-05-2023 13:00-0400 Systolic blood pressure 141 mm[Hg] Dr. Makayla Peters Work Phone: [facility] 03-05-2023 10:33-0400 Inhaled oxygen flow rate 2 L/min Dr. Makayla Peters Work Phone: [facility] 03-05-2023 09:42-0400 Body height 175.[address] Makayla Peters Work Phone: [facility] 03-05-2023 09:42-0400 Body mass index (BMI) [Ratio] 28.3 kg/m2 Dr. Makayla Peters Work Phone: [facility] 03-05-2023 09:42-0400 Body temperature 98.3 [degF] Dr. Makayla Peters Work Phone: [facility] 03-05-2023 09:42-0400 Body weight 87.[address] Makayla Peters Work Phone: [facility] 02-24-2023 10:19-0400 Body mass index (BMI) [Ratio] 29.7 kg/m2 Dr. Makayla Peters Work Phone: [facility] 02-24-2023 10:19-0400 Body temperature 97.6 [degF] Dr. Makayla Peters Work Phone: [facility] 02-24-2023 10:19-0400 Body weight 88.[address] Makayla Peters Work Phone: [facility] 02-24-2023 10:19-0400 Diastolic blood pressure 71 mm[Hg] Dr. Makayla Peters Work Phone: [facility] 02-24-2023 10:19-0400 Heart rate 77 /min Dr. Makayla Peters Work Phone: [facility] 02-24-2023 10:19-0400 Respiratory rate 18 /min Dr. Makayla Peters Work Phone: [facility] 02-24-2023 10:19-0400 SaO2% (BldA) [Mass fraction] 97 % Dr. Makayla Peters Work Phone: [facility] 02-24-2023 10:19-0400 Systolic blood pressure 124 mm[Hg] Dr. Makayla Peters Work Phone: [facility] 01-30-2023 08:50-0400 Body mass index (BMI) [Ratio] 29.3 kg/m2 Dr. Makayla Peters Work Phone: [facility] 01-30-2023 08:50-0400 Body temperature 97.3 [degF] Dr. Makayla Peters Work Phone: [facility] 01-30-2023 08:50-0400 Body weight 87.[address] Makayla Peters Work Phone: [facility] 01-30-2023 08:50-0400 Diastolic blood pressure 70 mm[Hg] Dr. Makayla Peters Work Phone: [facility] 01-30-2023 08:50-0400 Heart rate 76 /min Dr. Makayla Peters Work Phone: [facility] 01-30-2023 08:50-0400 Respiratory rate 17 /min Dr. Makayla Peters Work Phone: [facility] 01-30-2023 08:50-0400 Systolic blood pressure 143 mm[Hg] Dr. Makayla Peters Work Phone: [facility] 01-29-2023 09:40-0400 Body mass index (BMI) [Ratio] 29.3 kg/m2 Dr. Makayla Peters Work Phone: [facility] 01-29-2023 09:40-0400 Body weight 87.[address] Makayla Peters Work Phone: [facility] 01-29-2023 09:40-0400 Diastolic blood pressure 71 mm[Hg] Dr. Makayla Peters Work Phone: [facility] 01-29-2023 09:40-0400 Heart rate 75 /min Dr. Makayla Peters Work Phone: [facility] 01-29-2023 09:40-0400 Respiratory rate 18 /min Dr. Makayla Peters Work Phone: [facility] 01-29-2023 09:40-0400 SaO2% (BldA) [Mass fraction] 95 % Dr. Makayla Peters Work Phone: [facility] 01-29-2023 09:40-0400 Systolic blood pressure 127 mm[Hg] Dr. Makayla Peters Work Phone: [facility] 01-14-2023 12:06-0400 Body temperature 98.01 [degF] Cali Peoples DO Work Phone: [facility] 01-14-2023 12:06-0400 Diastolic blood pressure 86 mm[Hg] Cali Peoples DO Work Phone: [facility] 01-14-2023 12:06-0400 Heart rate 77 /min Cali Peoples DO Work Phone: [facility] 01-14-2023 12:06-0400 Respiratory rate 17 /min Cali Peoples DO Work Phone: [facility] 01-14-2023 12:06-0400 SaO2% (BldA) [Mass fraction] 96 % Cali Peoples DO Work Phone: [facility] 01-14-2023 12:06-0400 Systolic blood pressure 134 mm[Hg] Cali Peoples DO Work Phone: [facility] 01-09-2023 22:00-0400 Body height 175.3 cm Cali Peoples DO Work Phone: [facility] 01-09-2023 22:00-0400 Body mass index (BMI) [Ratio] 28.38 kg/m2 Cali Peoples DO Work Phone: [facility] 01-09-2023 22:00-0400 Body weight 87.18 kg Cali Peoples DO Work Phone: [facility] Comment on above: [facility] 09-10-2022 20:16-0500 Diastolic blood pressure 72 mm[Hg] Dr. Makayla Peters Work Phone: [facility] 09-10-2022 20:16-0500 Heart rate 56 /min Dr. Makayla Peters Work Phone: [facility] 09-10-2022 20:16-0500 Respiratory rate 17 /min Dr. Makayla Peters Work Phone: [facility] 09-10-2022 20:16-0500 SaO2% (BldA) [Mass fraction] 98 % Dr. Makayla Peters Work Phone: [facility] 09-10-2022 20:16-0500 Systolic blood pressure 153 mm[Hg] Dr. Makayla Peters Work Phone: [facility] 09-10-2022 17:44-0500 Body height 172.[address] Makayla Peters Work Phone: [facility] 09-10-2022 17:44-0500 Body mass index (BMI) [Ratio] 29.5 kg/m2 Dr. Makayla Peters Work Phone: [facility] 09-10-2022 17:44-0500 Body temperature 97.9 [degF] Dr. Makayla Peters Work Phone: [facility] 09-10-2022 17:44-0500 Body weight [address] Makayla Peters Work Phone: [facility] 06-06-2022 13:24-0500 Body mass index (BMI) [Ratio] 29.2 kg/m2 Dr. Makayla Peters Work Phone: [phone] [place] [address] 06-06-2022 13:24-0500 Body weight 89.[address] Makayla Peters Work Phone: [facility] 06-06-2022 13:24-0500 Diastolic blood pressure 67 mm[Hg] Dr. Makayla Peters Work Phone: [facility] 06-06-2022 13:24-0500 Heart rate 59 /min Dr. Makayla Peters Work Phone: [facility] 06-06-2022 13:24-0500 Respiratory rate 18 /min Dr. Makayla Peters Work Phone: [facility] 06-06-2022 13:24-0500 SaO2% (BldA) [Mass fraction] 95 % Dr. Makayla Peters Work Phone: [facility] 06-06-2022 13:24-0500 Systolic blood pressure 144 mm[Hg] Dr. Makayla Peters Work Phone: [facility] 04-06-2022 22:34-0400 Body height 175.[address] Makayla Peters Work Phone: [facility] Work Phone: 04-06-2022 22:34-0400 Body mass index (BMI) [Ratio] 28 kg/m2 Dr. Makayla Peters Work Phone: [facility] Work Phone: 04-06-2022 22:34-0400 Body temperature 100.7 [degF] Dr. Makayla Peters Work Phone: [facility] Work Phone: 04-06-2022 22:34-0400 Body weight 86.[address] Makayla Peters Work Phone: [facility] Work Phone: 04-06-2022 22:34-0400 Diastolic blood pressure 73 mm[Hg] Dr. Makayla Peters Work Phone: [facility] Work Phone: 04-06-2022 22:34-0400 Heart rate 85 /min Dr. Makayla Peters Work Phone: [facility] Work Phone: 04-06-2022 22:34-0400 Respiratory rate 19 /min Dr. Makayla Peters Work Phone: [facility] Work Phone: 04-06-2022 22:34-0400 SaO2% (BldA) [Mass fraction] 94 % Dr. Makayla Peters Work Phone: [facility] Work Phone: 04-06-2022 22:34-0400 Systolic blood pressure 152 mm[Hg] Dr. Makayla Peters Work Phone: [facility] Work Phone: 04-06-2022 13:05-0400 Diastolic blood pressure 77 mm[Hg] Dr. Makayla Peters Work Phone: [facility] Work Phone: 04-06-2022 13:05-0400 Heart rate 62 /min Dr. Makayla Peters Work Phone: [facility] Work Phone: 04-06-2022 13:05-0400 Respiratory rate 15 /min Dr. Makayla Peters Work Phone: [facility] Work Phone: 04-06-2022 13:05-0400 SaO2% (BldA) [Mass fraction] 98 % Dr. Makayla Peters Work Phone: [facility] Work Phone: 04-06-2022 13:05-0400 Systolic blood pressure 124 mm[Hg] Dr. Makayla Peters Work Phone: [facility] Work Phone: 04-06-2022 10:35-0400 Body height 175.[address] Makayla Peters Work Phone: [facility] Work Phone: 04-06-2022 10:35-0400 Body mass index (BMI) [Ratio] 29.8 kg/m2 Dr. Makayla Peters Work Phone: [facility] Work Phone: 04-06-2022 10:35-0400 Body temperature 99.1 [degF] Dr. Makayla Peters Work Phone: [facility] Work Phone: 04-06-2022 10:35-0400 Body weight 91.[address] Makayla Peters Work Phone: [facility] Work Phone: 01-24-2022 08:54-0400 Body height 175.[address] Makayla Peters Work Phone: [facility] Work Phone: 01-24-2022 08:54-0400 Body mass index (BMI) [Ratio] 28.9 kg/m2 Dr. Makayla Peters Work Phone: [facility] Work Phone: 01-24-2022 08:54-0400 Body temperature 97.6 [degF] Dr. Makayla Peters Work Phone: [facility] Work Phone: 01-24-2022 08:54-0400 Body weight 88.[address] Makayla Peters Work Phone: [facility] Work Phone: 01-24-2022 08:54-0400 Diastolic blood pressure 86 mm[Hg] Dr. Makayla Peters Work Phone: [facility] Work Phone: 01-24-2022 08:54-0400 Heart rate 63 /min Dr. Makayla Peters Work Phone: [facility] Work Phone: 01-24-2022 08:54-0400 Respiratory rate 16 /min Dr. Makayla Peters Work Phone: [facility] Work Phone: 01-24-2022 08:54-0400 SaO2% (BldA) [Mass fraction] 98 % Dr. Makayla Peters Work Phone: [facility] Work Phone: 01-24-2022 08:54-0400 Systolic blood pressure 135 mm[Hg] Dr. Makayla Peters Work Phone: [facility] Work Phone: 12-03-2021 13:26-0400 Body weight 91.[address] Makayla Peters Work Phone: [facility] Work Phone: 05-09-2022 13:26-0400 Diastolic blood pressure 62 mm[Hg] Dr. Makayla Peters Work Phone: [facility] Work Phone: 12-03-2021 13:26-0400 Heart rate 60 /min Dr. Makayla Peters Work Phone: [facility] Work Phone: 12-03-2021 13:26-0400 Respiratory rate 18 /min Dr. Makayla Peters Work Phone: [facility] Work Phone: 12-03-2021 13:26-0400 Systolic blood pressure 138 mm[Hg] Dr. Makayla Peters Work Phone: [facility] Work Phone: 11-30-2020 13:44-0400 Body mass index (BMI) [Ratio] 30.6 kg/m2 Dr. Makayla Peters Work Phone: [facility] Work Phone: Encounters Encounter Date Encounter Type Care Provider Facility Start: 04-18-2025 ambulatory Faizan Fraga Facility :[facility] Start: 03-06-2025 End: 03-06-[address] Makayla Peters MD Work Phone: -[facility] Start: 03-06-2025 End: 03-06-[address] Braden Hammonds MD -[facility] Work Phone: Start: 03-03-2025 ambulatory ISAAC Sandhu [facility] Start: 02-25-2025 End: 02-25-2025 Patient encounter procedure Natalia OSBORNE -[facility] Work Phone: Start: 02-25-2025 End: 02-25-[address] Makayla Peters MD Work Phone: -[facility] Start: 02-23-2025 End: 02-23-2025 Office outpatient visit 25 minutes Isaac R Hodge WEATHER TEACHER-COMMUNITY NURSE Work Phone: Division of Medical Oncology at [facility] Comment on above: Malignant neoplasm o f upper lobe of right lung (Primary Dx); Neuropathy involving both lower extremities; Imbalance Start: 02-23-2025 End: 02-23-2025 Subsequent hospital visit by physician Kathryn Tobias MD Work Phone: [facility] Comment on above: Arrived Start: 02-23-2025 ambulatory MAKAYLA Trejo ty:[facility] Start: 02-09-2025 Non-patient / Non-visit Dr. Saúl wayne MD -[facility] Start: 02-09-2025 End: 02-09-[address] Makayla Peters MD Work Phone: -Cardiovascular Services Start: 02-09-2025 End: 02-09-[address] Saúl Morales MD -Cardiovascular Services Work Phone: Start: 02-09-2025 End: 02-09-2025 ambulatory Saúl Morales Facility:[facility] Start: 01-10-2025 ambulatory MAKAYLA PETERS [facility] Start: 01-05-2025 End: 01-05-2025 Emergency department patient visit Dr. Makayla Peters MD Work Phone: -Emergency Department Work Phone: Start: 12-22-2024 End: 12-22-2024 Office outpatient visit 15 minutes Mateo Mascorro MD Work Phone: Division of Pulmonary Diseases at [facility] Comment on above: Lung nodule (Primary Dx) Start: 12-22-2024 ambulatory SELF SELF Facility:[facility] Start: 12-08-2024 End: 12-08-2024 Patient encounter procedure Raquel WELCH -[facility] Work Phone: Start: 12-08-2024 End: 12-08-[address] Makayla Peters MD Work Phone: [facility] Work Phone: Start: 12-06-2024 End: 12-06-[address] Makayla Peters MD Work Phone: [facility] Work Phone: Start: 12-06-2024 End: 12-06-[address] Braden Hammonds MD [facility] Work Phone: Start: 12-01-2024 End: 12-01-2024 ambulatory RADHA CORNELIUS [facility] Start: 11-30-2024 End: 11-30-[address] Makayla Peters MD Work Phone: [facility] Work Phone: Start: 11-30-2024 End: 11-30-2024 Patient encounter procedure Nadege Lopez [facility] Work Phone: Start: 11-03-2024 End: 11-03-2024 Office outpatient visit 40 minutes Kathryn Tobias MD Work Phone: Division of Medical Oncology at 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 Comment on above: Malignant neoplasm o f upper lobe of right lung Start: 11-03-2024 End: 11-03-2024 Subsequent hospital visit by physician Isaac Hodge WEATHER TEACHER-COMMUNITY NURSE Work Phone: [facility] Comment on above: Arrived Start: 11-03-2024 ambulatory MAKAYLA Trejo ty:[facility] Start: 09-21-2024 End: 09-21-[address] Makayla Peters MD Work Phone: [facility] Work Phone: Start: 09-21-2024 End: 09-21-2024 Patient encounter procedure Faizan Fraga CAPTAIN WAITER-C -Laboratory Work Phone: Start: 09-20-2024 End: 09-20-2024 ambulatory Kathryn Tobias MD Work Phone: Division of Chemotherapy at 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 Comment on above: Malignant neoplasm o f upper lobe of right lung (Primary Dx) Start: 09-20-2024 End: 09-21-2024 ambulatory MAKAYLA PETERS Facility:[facility] Start: 09-20-2024 End: 09-20-2024 Clinical Support Encounter Kathryn Tobias MD Work Phone: Clinical Laboratories at 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) Start: 09-14-2024 ambulatory MATEO Henning ity:[facility] Start: 09-14-2024 End: 09-14-2024 Subsequent hospital visit by physician Mateo Mascorro MD Work Phone: Imaging [facility] Comment on above: Arrived Start: 09-14-2024 ambulatory MATEO Henning ity:[facility] Start: 09-14-2024 End: 09-14-2024 Subsequent hospital visit by physician Mateo Mascorro MD Work Phone: Imaging [facility] Comment on above: Arrived Start: 09-09-2024 ambulatory MATEO Henning ity:[facility] Start: 09-06-2024 End: 09-06-2024 ambulatory Braden Hammonsd [facility] Start: 09-06-2024 End: 09-06-[address] Braden Hammonds MD -[facility] Work Phone: Start: 08-25-2024 ambulatory MATEO Henning ity:[facility] Start: 08-17-2024 ambulatory KATHRYN Henning ity:[facility] Start: 08-11-2024 ambulatory MAKAYLA Trejo ty:[facility] Start: 08-11-2024 End: 08-11-2024 Office outpatient visit 40 minutes Kathryn Tobias MD Work Phone: Division of Medical Oncology at 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 Comment on above: Malignant neoplasm o f upper lobe of right lung (Primary Dx) Start: 06-16-2024 End: 06-16-2024 Clinical Support Encounter Makayla Peters MD Work Phone: 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 Comment on above: Malignant neoplasm o f upper lobe of right lung (Primary Dx) Start: 05-24-2024 End: 05-24-2024 Clinical Support Encounter Kathryn Tobias MD Work Phone: [facility] at 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 Comment on above: Malignant neoplasm o f upper lobe of right lung (Primary Dx); Neuropathy Start: 04-07-2024 End: 04-07-2024 Clinical Support Encounter Kathryn Tobias MD Work Phone: [facility] at 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 Comment on above: Malignant neoplasm o f upper lobe of right lung (Primary Dx) Start: 03-17-2024 ambulatory MAKAYLA KALISETTI Facili ty:[facility] Start: 03-17-2024 End: 03-17-2024 Clinical Support Encounter Kathryn Tobias MD Work Phone: [facility] Laboratories at 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 Comment on above: Malignant neoplasm o f upper lobe of right lung (Primary Dx) Start: 02-25-2024 End: 02-25-2024 Clinical Support Encounter Kathryn Tobias MD Work Phone: [facility] at 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 Comment on above: Malignant neoplasm o f upper lobe of right lung (Primary Dx) Start: 01-21-2024 End: 01-21-2024 Clinical Support Encounter Kathryn Tobias MD Work Phone: 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 Comment on above: Malignant neoplasm o f upper lobe of right lung (Primary Dx) Start: 12-03-2023 End: 12-03-2023 Clinical Support Encounter Kathryn Tobias MD Work Phone: 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 Jennifer Peters Work Phone: [facility] Start: 11-26-2023 End: 11-26-[address] Makayla Peters Work Phone: [facility] Work Phone: Start: 11-26-2023 End: 11-26-[address] Makayla Peters Work Phone: [facility]Pulmonary Services/Neurology Work Phone: Start: 11-17-2023 End: 11-17-[address] Makayla Peters Work Phone: [facility] Work Phone: Start: 11-12-2023 End: 11-12-2023 ambulatory Denton Reilly MD, PhD Work Phone: Division of Chemotherapy at 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 Comment on above: Malignant neoplasm o f upper lobe of right lung (Primary Dx) Start: 11-12-2023 End: 11-12-2023 Clinical Support Encounter Denton Reilly MD, PhD Work Phone: 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 Makayla Peters Work Phone: [facility] Work Phone: Start: 11-05-2023 End: 11-05-2023 Subsequent hospital visit by physician Sarah Valentine WEATHER TEACHER-COMMUNITY NURSE Work Phone: [facility] [place] Comment on above: Arrived Start: 10-22-2023 End: 10-22-2023 ambulatory Kathryn Tobias MD Work Phone: Division of Chemotherapy at 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 Jennifer Peters Work Phone: [facility] Start: 09-18-2023 End: 09-19-2023 Evaluation and management of inpatient Dr. Makayla Peters Work Phone: [facility] Work Phone: Start: 09-18-2023 End: 09-19-[address] Makayla Peters Work Phone: [facility] Work Phone: Start: 09-09-2023 Non-patient / Non-visit Dr. Jennifer Peters Work Phone: [facility] Start: 09-08-2023 End: 09-08-[address] Makayla Peters Work Phone: [facility] Work Phone: Start: 08-20-2023 Non-patient / Non-visit Dr. Jennifer Peters Work Phone: [facility] Work Phone: Start: 08-19-2023 Non-patient / Non-visit Dr. Jennifer Peters Work Phone: [facility] Start: 08-19-2023 End: 08-19-[address] Makayla Peters Work Phone: [facility]Cardiovascul [facility] Services Work Phone: Start: 08-01-2023 End: 08-01-[address] Makayla Peters Work Phone: [facility] Work Phone: Start: 06-17-2023 End: 06-17-2023 Subsequent hospital visit by physician Amarilys MOLINACOMMUNITY NURSE Work Phone: [facility] Comment on above: Arrived Start: 06-09-2023 End: 06-09-[address] Makayla Peters Work Phone: [facility] Work Phone: Start: 06-08-2023 End: 06-09-2023 Non-patient / Non-visit Dr. 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; Neoplasm of unspecified behavior of unspecified site Start: 05-06-2023 End: 05-06-2023 Office outpatient visit 40 minutes Jake Valenzuela MD Work Phone: Division of Thoracic Surgery at [facility] Comment on above: 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 Makayla Peters Work Phone: [facility] Work Phone: Start: 04-08-2023 End: 04-08-[address] Makayla Peters Work Phone: [facility] Work Phone: Start: 04-04-2023 End: 04-04-[address] Makayla Peters Work Phone: [facility] Work Phone: Start: 04-04-2023 End: 04-04-[address] Makayla Peters Work Phone: [facility]-Cat Scan, [facility] Work Phone: Start: 03-24-2023 End: 03-24-[address] Makayla Peters Work Phone: [facility] Work Phone: Start: 03-18-2023 End: 03-18-[address] Makayla Peters Work Phone: [facility] Work Phone: Start: 03-18-2023 End: 03-18-[address] Makayla Peters Work Phone: [facility] Start: 2023 Non-patient / Non-visit Dr. Jennifer Peters Work Phone: [facility] Start: 03-11-2023 End: 03-11-[address] Makayla Peters Work Phone: [facility]-Pulmonary Medicine [facility] Work Phone: Start: 03-11-2023 End: 03-11-[address] Makayla Peters Work Phone: [facility]-Pulmonary Services/Neurology Work Phone: Start: 03-05-2023 End: 03-05-[address] Makayla Peters Work Phone: [facility] Work Phone: Start: 03-05-2023 End: 03-05-[address] Makayla Peters Work Phone: [facility] Work Phone: Start: 03-03-2023 End: 03-03-[address] Makayla Peters Work Phone: [facility] Work Phone: Start: 02-24-[address] Taylor Peters Work Phone: [facility] Start: 02-24-2023 End: 02-24-[address] Makayla Peters Work Phone: [facility]-Pulmonary Medicine [facility] Work Phone: Start: 01-30-2023 End: 01-30-[address] Makayla Peters Work Phone: [facility] Work Phone: Start: 01-29-2023 End: 01-29-[address] Makayla Peters Work Phone: [facility] Work Phone: Start: 01-24-2023 Documentation procedure Mary Ann ricks RN [facility] Comment on above: Wound Check (S/P DC PPM insertion on 01/13/23) Start: 01-24-2023 End: 01-25-2023 ambulatory ASHER GAITAN [facility] Start: 01-20-2023 Non-patient / Non-visit Dr. Jennifer Peters Work Phone: [facility] Start: 01-20-2023 End: 01-20-[address] Makayla Peters Work Phone: [facility] Work Phone: Start: 01-20-2023 End: 01-20-[address] Makayla Peters Work Phone: [facility]-Cardiovascul ar Services Work Phone: Start: 01-09-2023 End: 01-13-2023 ambulatory CALI HERNANDEZ [facility] Start: 01-09-2023 End: 01-14-2023 Evaluation and management of inpatient MAKAYLAMEMO Gonzalez [facility] Start: 01-09-2023 End: 01-14-2023 Evaluation and management of inpatient Cali Hernandez DO Work Phone: [facility] Start: 09-10-2022 End: 09-10-2022 Emergency department patient visit Dr. Makayla Peters Work Phone: [facility]-Emergency Department Start: 06-06-2022 End: 06-06-[address] Makayla Peters Work Phone: [facility] Start: 04-06-2022 End: 04-07-2022 Emergency department patient visit Dr. Makayla Peters Work Phone: [facility]-Emergency Department Start: 04-06-2022 End: 04-06-2022 Emergency department patient visit Dr. Makayla Peters Work Phone: [facility]-Emergency Department Start: 01-24-2022 End: 01-24-[address] Makayla Peters Work Phone: [facility] Start: 01-23-2022 Non-patient / Non-visit Dr. Jennifer Peters Work Phone: [facility] Start: 01-23-2022 End: 01-23-[address] Makayla Peters Work Phone: [facility]Cardiovascul [facility] Services Start: 12-25-2021 Non-patient / Non-visit Dr. Jennifer Peters Work Phone: [facility] Start: 12-25-2021 End: 12-25-[address] [facility] Start: 12-03-2021 End: 12-03-[address] Makayla Peters Work Phone: [facility] Start: 07-23-2013 End: 07-26-2013 Evaluation and management of inpatient LATASHA ALEXANDER Facility:[facility] Procedures Date Procedure Procedure Detail Performing Clinician Start: 02-23-2025 Ct thorax w/o contra st material Kathryn Tobias MD Work Phone: Start: 01-05-2025 Urnls dip stick/tabl et reagent auto microscopy Dr. Makayla Peters MD Work Phone: Start: 01-05-2025 CT of head without contrast Dr. Makayla Peters MD Work Phone: Start: 01-05-[address] Makayla Peters MD Work Phone: Start: 12-22-2024 Follow-up visit Follow-up GUS MASCORRO Start: 11-03-2024 CBC AND ELECTRONIC DIFF Isaac Hodge WEATHER TEACHER-COMMUNITY NURSE Work Phone: Start: 11-03-2024 Complete blood count with white cell differential, automated Isaac Hodge WEATHER TEACHER-COMMUNITY NURSE Work Phone: Start: 11-03-2024 End: 11-03-2024 Comprehensive metabolic panel Isaac Hodge WEATHER TEACHER-COMMUNITY NURSE Work Phone: Start: 09-20-2024 CBC AND ELECTRONIC DIFF Kathryn Tobias MD Work Phone: Start: 09-20-2024 Complete blood count with white cell differential, automated Kathryn Tobias MD Work Phone: Start: 09-20-2024 Comprehensive metabo lic panel Kathryn Tobias MD Work Phone: Start: 09-14-2024 Radiologic exam ches t single view Mateo Mascorro MD Work Phone: Start: 09-14-2024 Level iv surg pathol ogy gross&microscopic exam Mateo Mascorro MD Work Phone: Start: 08-11-2024 CBC AND ELECTRONIC DIFF Kathryn Toibas MD Work Phone: Start: 08-11-2024 Complete blood count with white cell differential, automated Kathryn Tobias MD Work Phone: Start: 08-11-2024 Comprehensive metabo lic panel Kathryn Tobias MD Work Phone: Start: 07-29-2024 Creatinine blood Isaac Hodge WEATHER TEACHER-COMMUNITY NURSE Work Phone: Start: 07-23-2024 Computed tomography of abdomen and pelvis with intravenous contrast Dr. Makayla Peters MD Work Phone: Start: 07-23-2024 CT of abdomen and pe lvis without contrast Dr. Makayla Peters MD Work Phone: Start: 06-16-2024 CBC AND ELECTRONIC DIFF Kathryn Tobias MD Work Phone: Start: 06-16-2024 Complete blood count with white cell differential, automated Kathryn Tobias MD Work Phone: Start: 06-16-2024 Comprehensive metabo lic panel Kathryn Tobias MD Work Phone: Start: 05-24-2024 CBC AND ELECTRONIC DIFF Isaac Hodge WEATHER TEACHER-COMMUNITY NURSE Work Phone: Start: 05-24-2024 Complete blood count with white cell differential, automated Isaac Hodge WEATHER TEACHER-COMMUNITY NURSE Work Phone: Start: 05-24-2024 Comprehensive metabo lic panel Isaac Hodge WEATHER TEACHER-COMMUNITY NURSE Work Phone: Start: 04-28-2024 CBC AND ELECTRONIC DIFF Kathryn Tobias MD Work Phone: Start: 04-28-2024 Complete blood count with white cell differential, automated Kathryn Tobias MD Work Phone: Start: 04-28-2024 Comprehensive metabo lic panel Kathryn Tobias MD Work Phone: Start: 04-21-2024 Ct thorax w/contrast material Isaac Hodge WEATHER TEACHER-COMMUNITY NURSE Work Phone: Start: 04-07-2024 CBC AND ELECTRONIC DIFF Kathryn Tobias MD Work Phone: Start: 04-07-2024 Complete blood count with white cell differential, automated Kathryn Tobias MD Work Phone: Start: 04-07-2024 Comprehensive metabo lic panel Kathryn Tobias MD Work Phone: Start: 03-17-2024 CBC AND ELECTRONIC DIFF Kathryn Tobias MD Work Phone: Start: 03-17-2024 Complete blood count with white cell differential, automated Kathryn Tobias MD Work Phone: Start: 03-17-2024 Comprehensive metabo lic panel Kathryn Tobias MD Work Phone: Start: 02-25-2024 CBC AND ELECTRONIC DIFF Kathryn Tobias MD Work Phone: Start: 02-25-2024 Complete blood count with white cell differential, automated Kathryn Tobias MD Work Phone: Start: 02-25-2024 Comprehensive metabo lic panel Kathryn Tobias MD Work Phone: Start: 02-11-2024 CBC AND ELECTRONIC DIFF Kathryn Tobias MD Work Phone: Start: 02-11-2024 Complete blood count with white cell differential, automated Kathryn Tobias MD Work Phone: Start: 02-11-2024 Comprehensive metabo lic panel Kathryn Tobias MD Work Phone: Start: 01-21-2024 CBC AND ELECTRONIC DIFF Kathryn Tobias MD Work Phone: Start: 01-21-2024 Complete blood count with white cell differential, automated Kathryn Tobias MD Work Phone: Start: 01-21-2024 Comprehensive metabo lic panel Kathryn Tobias MD Work Phone: Start: 12-24-2023 CBC AND ELECTRONIC DIFF Kathryn Tobias MD Work Phone: Start: 12-24-2023 Complete blood count with white cell differential, automated Kathryn Tobias MD Work Phone: Start: 12-24-2023 Comprehensive metabo lic panel Kathryn Tobias MD Work Phone: Start: 12-03-2023 CBC AND ELECTRONIC DIFF Isaac Taylor Hodge WEATHER TEACHER-COMMUNITY NURSE Work Phone: Start: 12-03-2023 Complete blood count with white cell differential, automated Isaac R Hodge WEATHER TEACHER-COMMUNITY NURSE Work Phone: Start: 12-03-2023 Comprehensive metabo lic panel Isaac Vazquez Hodge WEATHER TEACHER-COMMUNITY NURSE Work Phone: Start: 11-12-2023 CBC AND ELECTRONIC DIFF Kathryn Tobias MD Work Phone: Start: 11-12-2023 Complete blood count with white cell differential, automated Kathryn Tobias MD Work Phone: Start: 11-12-2023 Comprehensive metabo lic panel Kathryn Tobias MD Work Phone: Start: 11-05-2023 Creatinine blood Jessic a A Apparicio WEATHER TEACHER-COMMUNITY NURSE Work Phone: Start: 10-22-2023 CBC AND ELECTRONIC DIFF Kathryn Tobias MD Work Phone: Start: 10-22-2023 Complete blood count with white cell differential, automated Kathryn Tobias MD Work Phone: Start: 10-22-2023 Comprehensive metabo lic panel Kathryn Tobias MD Work Phone: Start: 10-01-2023 CBC AND ELECTRONIC DIFF Kathryn Tobias MD Work Phone: Start: 10-01-2023 Complete blood count with white cell differential, automated Kathryn Tobias MD Work Phone: Start: 10-01-2023 Comprehensive metabo lic panel Kathryn Tobias MD Work Phone: Start: 08-28-2023 History of placement of stent for coronary artery disease History of coronary artery stent placement Dr. Makayla Peters Work Phone: Comment on above: PTCA OF RCA 02/06; P TCA of proximal LAD & mid RCA 09/10; PTCA/JOB of proximal LAD ISR on 07/08/2018;JOB Mid LCX using [place] 2.5x34 mm 09/18/23 Start: 08-28-2023 Plain chest X-ray Dr. Taylor Peters Work Phone: Start: 08-19-2023 Cardiovascular stres s test using pharmacologic stress agent Dr. Makayla Peters Work Phone: Start: 06-17-2023 Radiologic exam ches t 2 views Amarilys Napoles WEATHER TEACHER-COMMUNITY NURSE Work Phone: Start: 05-30-2023 Radiologic exam ches t single view Amarilys Napoles WEATHER TEACHER-COMMUNITY NURSE Work Phone: Start: 05-30-2023 Radiologic exam ches t single view Eloina Carey WEATHER TEACHER-COMMUNITY NURSE Work Phone: Start: 05-30-2023 Assay of magnesium Kalee Mckeon PAC Work Phone: Start: 05-30-2023 CBC AND ELECTRONIC DIFF Meron Mckeon PAC Work Phone: Start: 05-30-2023 Complete blood count with white cell differential, automated Meron Mckeon PAC Work Phone: Start: 05-29-2023 Radiologic exam ches t single view Meron Mckeon PAC Work Phone: Start: 05-29-2023 Assay of magnesium Kalee Mckeon PAC Work Phone: Start: 05-29-2023 CBC AND ELECTRONIC DIFF Meron Mckeon PAC Work Phone: Start: 05-29-2023 Complete blood count with white cell differential, automated Meron Blumderfer PAC Work Phone: Start: 05-29-2023 Oscillating positive expiratory pressure (flutter) physiotherapy Meron Wang Diefenderfer PAC Work Phone: Start: 05-28-2023 Oscillating positive expiratory pressure (flutter) physiotherapy Meron Blumderfer PAC Work Phone: Start: 05-28-2023 DEVICE EVALUATION Other Other Start: 05-28-2023 Radiologic exam ches t single view Meron Jaramillofer PAC Work Phone: Start: 05-28-2023 End: 05-28-2023 Assay of urea nitrogen quantitative Meron Mckeon PAC Work Phone: Start: 05-28-2023 CBC AND ELECTRONIC DIFF Meron [facility] PAC Work Phone: Start: 05-28-2023 Complete blood count with white cell differential, automated Meron Mckeon PAC Work Phone: Start: 05-28-2023 End: 05-28-2023 [facility]/cell washg spx Jake Valenzuela MD Work Phone: Start: 05-28-2023 End: 05-28-2023 Thoracoscopy w/lobectomy single lobe Jake Valenzuela MD Work Phone: Start: 05-28-2023 End: 05-28-2023 Thorcoscpy w/mediastinl & regionl lymphdenectomy Jake Valenzeula MD Work Phone: Start: 05-28-2023 End: 05-28-2023 CONTINUOUS CARDIAC MONITORING STRIP Other Other Start: 05-28-2023 ABORH TYPE RECONFIRMATION Cornelio Stevens MD Work Phone: Start: 05-06-2023 Antibody screen [facility] [employer] Operator Bsh 2 Start: 05-06-2023 Blood typing serologic abo Amarilys Napoles WEATHER TEACHER-COMMUNITY NURSE Work Phone: Start: 05-06-2023 PREPARE TO TRANSFUSE OR RED BLOOD CELLS [facility] Work Phone: Start: 05-06-2023 Prothrombin time Cullen Napoles WEATHER TEACHER-COMMUNITY NURSE Work Phone: Start: 05-06-2023 Spmtry w/vc expirato ry rashad w/wo mxml vol vntj Meron Wang [facility] PAC Work Phone: Start: 04-28-2023 DEVICE EVALUATION Other Other Start: 04-28-2023 Radiologic exam ches t single view Kwasi Mckeon MD Work Phone: Start: 04-28-2023 CONTINUOUS CARDIAC MONITORING STRIP Other Other Start: 04-28-2023 CBC AND ELECTRONIC DIFF Felicia G Edison PAC Work Phone: Start: 04-28-2023 Complete blood count with white cell differential, automated Felicia G Edison PAC Work Phone: Start: 04-28-2023 Creatinine blood Gabrie lle G Edison PAC Work Phone: Start: 04-08-2023 MRI of brain with contrast Dr. Makayla Peters Work Phone: Start: 04-08-2023 MRI of lumbar spine with contrast Dr. Makayla Peters Work Phone: Start: 04-08-2023 MRI of thoracic spin e with contrast Dr. Makayla Peters Work Phone: Start: 04-04-2023 Biopsy/Inj or Needle Placement Dr. Makayla Peters Work Phone: Start: 03-18-2023 Positron emission tomography with computed tomography Dr. Makayla Peters Work Phone: Start: 03-05-2023 Plain chest X-ray Dr. Taylor Peters Work Phone: Start: 03-05-2023 Plain chest X-ray Dr. Taylor Peters Work Phone: Start: 03-05-2023 Biopsy/Inj or Needle Placement Dr. Makayla Peters Work Phone: Start: 01-13-2023 Radiologic exam ches t 2 views Asher Gaitan MD Work Phone: Start: 01-13-2023 Ins new/rplcmt prm p m w/transv eltrd atrial&vent [facility] Work Phone: Start: 01-13-2023 Basic metabolic pane l calcium total Rabia Holloway MD Work Phone: Start: 01-10-2023 Myocardial spect mul tiple studies [facility] Work Phone: Start: 01-10-2023 Basic metabolic pane l calcium total Anton Temple DO Work Phone: Start: 01-09-2023 Assay of troponin quantitative Cali Hernandez DO Work Phone: Start: 01-09-2023 TTE w or wo Lynn gonzalez MD Work Phone: Start: 01-09-2023 Electrocardiogram Krist in Naya Hernandez DO Work Phone: Start: 01-09-2023 Gases blood ph direc t cyndi xcpt pulse oximitry [facility] Start: 01-09-2023 Radiographic imaging procedure Cali Hernandez DO Work Phone: Start: 01-09-2023 Radiologic exam ches t single view Cali Hernandez DO Work Phone: Start: 01-09-2023 OBTAIN VENOUS BLOOD GASES AND PERFORM Cali Hernandez DO Work Phone: Start: 01-09-2023 End: 01-09-2023 Ecg routine ecg w/least 12 lds w/i&r Cali Asencios DO Work Phone: Start: 01-09-2023 Basic metabolic pane l calcium total Cali Asencios DO Work Phone: Start: 01-09-2023 TOLEDO TOP Cali Asencios DO Work Phone: Start: 01-09-2023 LAVENDER TOP Cali Asencios DO Work Phone: Start: 01-09-2023 LIGHT BLUE TOP Cali Asencios DO Work Phone: Start: 01-09-2023 MINT GREEN TOP Cali Asencios DO Work Phone: Start: 01-09-2023 RAINBOW DRAW Cali Asencios DO Work Phone: Start: 09-10-2022 Plain chest X-ray Dr. Taylor Peters Work Phone: Start: 04-06-2022 Plain chest X-ray Dr. Taylor Peters Work Phone: Start: 04-06-2022 CT of head without contrast Dr. Makayla Peters Work Phone: Start: 06-27-2018 History of placement of stent for coronary artery disease S/P coronary artery stent placement Dr. Makayla Peters Work Phone: Comment on above: PTCA/JOB of the prox LAD 07/08/18 History of placement of stent for coronary artery disease History of coronary artery stent placement Dr. Makayla Peters Work Phone: History of placement of stent for coronary artery disease S/P coronary artery stent placement Dr. Makayla Peters Work Phone: SARS-CoV-2 & FLU Ant igen (Rapid) Dr. Makayla Peters Work Phone: Plan of Treatment Date Care Activity Detail Author Start: 2030 Tetanus vaccination [facility] Start: 06-22-2025 End: 06-22-2025 Telemedicine consultation with patient 06/22/2025 1:00 PM EST Telemedicine Division of Medical Oncology at [facility] [address] [place] [address] Kathryn Tobias MD [address] [place] [address] Division of Medical Oncology at [facility] Start: 06-17-2025 End: 06-17-2025 Patient encounter procedure 06/17/2025 12:00 PM EST Appointment [facility] [address] [place] [address] Isaac Hodge, WEATHER TEACHER-COMMUNITY NURSE [address] [address] [facility] Start: 03-28-2025 Influenza vaccination [facility] Start: 02-23-2025 End: 02-23-2026 CT Chest W contrast IV CT CHEST WITH CONTRAST Imaging Routine Malignant neoplasm of upper lobe of right lung Expected: 02/23/2025, Expires: 02/23/2026 [facility] Comment on above: Expected: 02/23/2025 , Expires: 02/23/2026 Start: 02-23-2025 End: 11-03-2025 CT Chest WO contrast CT CHEST WITHOUT CONTRAST Imaging Routine Squamous cell carcinoma of right lung Expected: 02/23/2025, Expires: 11/03/2025 [facility] Comment on above: Expected: 02/23/2025 , Expires: 11/03/2025 Start: 02-23-2025 End: 02-23-2025 Patient encounter procedure [facility] Start: 01-05-2025 [facility] Start: 01-05-2025 [facility] Start: 12-22-2024 End: 12-22-2024 Patient encounter procedure 12/22/2024 3:40 PM EDT Office Visit Division of Pulmonary Diseases at [facility] [address] [place] [id number] Mateo Mascorro MD [address] [place] [address] Division of Pulmonary Diseases at [facility] Start: 11-03-2024 End: 11-03-2024 Clinical Support Encounter Clinical Laboratories at 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 lung Expected: 11/01/2024 (Approximate), Expires: 09/20/2025 [facility] Comment on above: Expected: 11/01/2024 (Approximate), Expires: 09/20/2025 Start: 11-01-2024 End: 09-20-2025 Comprehensive metabolic 2000 panel - Serum or Plasma COMPREHENSIVE METABOLIC PANEL Lab Routine Malignant neoplasm of upper lobe of right lung Expected: 11/01/2024 (Approximate), Expires: 09/20/2025 [facility] Comment on above: Expected: 11/01/2024 (Approximate), Expires: 09/20/2025 Start: 09-22-2024 End: 09-22-2024 ambulatory 09/22/2024 10:30 AM EST Infusion Visit Division of Chemotherapy at [facility] [address] [place] [id number] Division of Chemotherapy at [facility] Start: 09-22-2024 End: 09-22-2024 Clinical Support Encounter Clinical Laboratories at [facility] Start: 09-20-2024 End: 09-20-2025 CT Chest W contrast IV CT CHEST WITH CONTRAST Imaging Routine Malignant neoplasm of upper lobe of right lung Expected: 09/20/2024, Expires: 09/20/2025 [facility] Comment on above: Expected: 09/20/2024 , Expires: 09/20/2025 Start: 09-20-2024 End: 09-20-2024 ambulatory 09/20/2024 10:30 AM EST Infusion Visit Division of Chemotherapy at [facility] [address] [place] [address] [facility] [address], [facility] [address] [place] [address] Division of Chemotherapy at [facility] Start: 09-20-2024 End: 09-20-2024 Clinical Support Encounter Clinical Laboratories at [facility] Start: 08-11-2024 End: 08-11-2024 Clinical Support Encounter Clinical Laboratories at [facility] Start: 08-04-2024 End: 08-04-2024 Clinical Support Encounter Clinical Laboratories at [facility] Start: 07-29-2024 End: 07-29-2024 Patient encounter procedure 07/29/2024 2:00 PM EST Appointment [facility] [address] [place] [address] Isaac Hodge, WEATHER TEACHER-COMMUNITY NURSE [address] [address] [facility] Start: 07-24-2024 [facility] Start: 06-16-2024 End: 06-16-2025 CT Chest W contrast IV CT CHEST WITH CONTRAST Imaging Routine Malignant neoplasm of upper lobe of right lung Expected: 06/16/2024, Expires: 06/16/2025 [facility] Comment on above: Expected: 06/16/2024 , Expires: 06/16/2025 Start: 06-16-2024 End: 06-16-2024 Clinical Support Encounter Clinical Laboratories at [facility] Start: 06-04-2024 End: 06-04-2024 ambulatory 06/04/2024 11:00 AM EST Rehab Services Visit [facility] [address] [place] [phone] Makayla Peters MD [address] [place] [phone] Sweta Moreland, PT [address] [facility] [address] [place] [phone] [facility] Start: 05-28-2024 End: 05-28-2024 ambulatory 05/28/2024 11:00 AM EDT Rehab Services Visit [facility] [address] [phone] Makayla Peters MD [address] [place] [phone] Sweta Moreland, PT [address] [facility] [address] [place] [phone] [facility] Start: 05-24-2024 End: 05-24-2024 Clinical Support Encounter Clinical Laboratories at [facility] Start: 05-07-2024 End: 05-07-2024 ambulatory 05/07/2024 1:00 PM EDT Rehab Services Visit [facility] [address] [place] [phone] Isaac Hodge, WEATHER TEACHER-COMMUNITY NURSE [address] [address] Sweta Moreland, PT [address] [facility] [address] [place] [address] [facility] Start: 04-28-2024 End: 04-28-2024 Clinical Support Encounter Clinical Laboratories at [facility] Start: 04-21-2024 Subsequent hospital visit by physician 04/21/2024 9:30 AM EDT Hospital Encounter [facility] [address] [place] [address] Isaac Hodge, WEATHER TEACHER-COMMUNITY NURSE [address] [address] [facility] Start: 04-07-2024 End: 04-07-2025 CT Chest W contrast IV CT CHEST WITH CONTRAST Imaging Routine Malignant neoplasm of upper lobe of right lung Expected: 04/07/2024, Expires: 04/07/2025 [facility] Comment on above: Expected: 04/07/2024 , Expires: 04/07/2025 Start: 04-07-2024 End: 04-07-2024 Clinical Support Encounter Clinical Laboratories at [facility] Start: 03-28-2024 COVID-19 VACCINE ( season) COVID-19 VACCINE ( season) [facility] Start: 03-28-2024 COVID-19 VACCINE ( season) COVID-19 VACCINE ( season) [facility] Start: 03-28-2024 Influenza vaccination INFLUENZA VACC INE (#1) [facility] Start: 03-17-2024 End: 03-17-2024 ambulatory 03/17/2024 12:30 PM EDT Infusion Visit Division of Chemotherapy at [facility] [address] [place] [address] [facility] 2 Cc, [facility] [address] [place] [address] Division of Chemotherapy at [facility] Start: 03-17-2024 End: 03-17-2024 Clinical Support Encounter Clinical Laboratories at [facility] Start: 03-10-2024 Subsequent hospital visit by physician 03/10/2024 10:00 AM EDT Hospital Encounter [facility] [address] [place] [address] Isaac Hodge, WEATHER TEACHER-COMMUNITY NURSE [address] [address] [facility] Start: 02-25-2024 End: 02-24-2025 CT Chest W contrast IV CT CHEST WITH CONTRAST Imaging Routine Malignant neoplasm of upper lobe of right lung Expected: 02/25/2024, Expires: 02/24/2025 [facility] Comment on above: Expected: 02/25/2024 , Expires: 02/24/2025 Start: 02-11-2024 End: 02-11-2024 Clinical Support Encounter Clinical Laboratories at [facility] Start: 01-21-2024 End: 01-21-2024 Clinical Support Encounter Clinical Laboratories at [facility] Start: 12-24-2023 End: 12-24-2023 Clinical Support Encounter Clinical Laboratories at [facility] Start: 12-15-2023 End: 12-15-2023 Patient encounter procedure Department of Radiology Start: 12-03-2023 End: 12-03-2023 ambulatory 12/03/2023 2:30 PM EDT Infusion Visit Division of Chemotherapy at [facility] [address] [place] [address] Division of Chemotherapy at [facility] Start: 12-03-2023 End: 12-03-2023 Clinical Support Encounter Clinical Laboratories at [facility] Start: 11-26-2023 End: 11-26-2023 Telemed Clin Support 11/26/2023 9:00 AM EDT Telemed Clin Support [facility] [address] [place] [address] Duglas Lebron LISW [address] [place] [address] [facility] Start: 11-12-2023 End: 10-21-2024 CT Chest W contrast IV CT CHEST WITH CONTRAST Imaging Routine Squamous cell carcinoma of right lung Expected: 11/12/2023 (Approximate), Expires: 10/21/2024 [facility] Comment on above: Expected: 11/12/2023 (Approximate), Expires: 10/21/2024 Start: 11-12-2023 End: 11-12-2023 ambulatory 11/12/2023 10:30 AM EDT Infusion Visit Division of Chemotherapy at [facility] [address] [place] [address] Division of Chemotherapy at [facility] Start: 11-12-2023 End: 11-12-2023 Clinical Support Encounter Clinical Laboratories at [facility] Start: 11-06-2023 End: 11-06-2023 Telemed Clin Support 11/06/2023 1:00 PM EDT Telemed Clin Support [facility] [address] [place] [address] [place] [address] Janee Palencia LISW [address] [place] [id number] Arrived [facility] Comment on above: Arrived Start: 11-05-2023 Subsequent hospital visit by physician 11/05/2023 11:00 AM EDT Hospital Encounter [facility] [address] [place] [address] Sarah Valentine, WEATHER TEACHER-COMMUNITY NURSE [address] [place] [address] [facility] Start: 10-22-2023 End: 10-22-2023 Clinical Support Encounter Clinical Laboratories at [facility] Start: 09-19-2023 Patient discharge [facility] Start: 09-18-2023 Patient referral [facility] Work Phone: Start: 09-18-2023 Following clinical pathway protocol [facility] Start: 09-18-2023 Ambulation without limitation [facility] Start: 09-18-[address] [facility] Start: 09-18-2023 Cardiac rehabilitati on - phase 1 [facility] Start: 09-18-2023 Cardiac rehabilitati on - phase 2 [facility] Start: 09-18-2023 Notification of physician [facility] Start: 09-18-2023 Oxygen therapy [facility] Start: 09-18-2023 Patient discharge [facility] Start: 09-18-2023 Taking patient vital signs [facility] Start: 09-18-2023 Vascular disease ris k assessment [facility] Start: 09-18-2023 Vital signs measurements [facility] Start: 09-18-2023 End: 09-18-2023 [facility] Start: 09-18-2023 Admission procedure [facility] Start: 09-15-2023 COVID-19 VACCINE () COVID-19 VACCINE () [facility] Start: 07-30-2023 End: 07-30-2023 Patient encounter procedure 07/30/2023 11:40 AM EST Office Visit Division of Medical Oncology at [facility] [address] [place] [address] Kathryn Tobias MD [address] [place] [address] Division of Medical Oncology at [facility] Start: 07-12-2023 Hemoglobin A1c measurement A1C [facility] Start: 06-17-2023 End: 06-17-2023 Patient encounter procedure 06/17/2023 12:15 PM EST Office Visit Division of Thoracic Surgery at [facility] [address] [place] [address] Jake Valenzuela MD [address] [place] [address] Division of Thoracic Surgery at [facility] Start: 06-11-2023 End: 06-11-2023 [facility] incl fluor gdnce dx w/cell washg spx BRONCHOSCOPY FLEXIBLE DIAGNOSTIC NSCLC of right lung 06/11/2023 11:15 AM EST [facility] Start: 06-11-2023 End: 06-11-2023 Evaluation and management of inpatient [facility] Comment on above: NSCLC of right lung LOBECTOMY LUNG ROBOT IC Start: 06-11-2023 End: 06-11-2023 Thoracoscopy w/lobectomy single lobe LOBECTOMY LUNG ROBOTIC NSCLC of right lung 06/11/2023 11:15 AM EST [facility] Start: 05-28-2023 End: 05-28-2023 Admission to same day surgery center 05/28/2023 11:15 AM EDT - 05/28/2023 3:15 PM EDT Surgery [facility] [address] [place] [address] Jake Valenzuela MD [address] [place] [address] LOBECTOMY LUNG ROBOTIC [facility] Comment on above: LOBECTOMY LUNG ROBOT IC Start: 05-28-2023 End: 05-28-2023 [facility] incl fluor gdnce dx w/cell washg spx BRONCHOSCOPY FLEXIBLE DIAGNOSTIC NSCLC of right lung 05/28/2023 11:15 AM EDT [facility] Start: 05-28-2023 Subsequent hospital visit by physician 05/28/2023 11:15 AM EDT Hospital Encounter [facility] [address] [place] [address] Jake Valenzuela MD [address] [place] [address] NSCLC of right lung [facility] Comment on above: NSCLC of right lung Start: 05-28-2023 End: 05-28-2023 Thoracoscopy w/lobectomy single lobe LOBECTOMY LUNG ROBOTIC NSCLC of right lung 05/28/2023 11:15 AM EDT [facility] Start: 05-28-2023 End: [facility]-28-[facility]cell washg spx BRONCHOSCOPY FLEXIBLE DIAGNOSTIC NSCLC of right lung 05/28/2023 7:09 AM EDT [facility] Start: 05-28-2023 End: 05-28-2023 Thoracoscopy w/lobectomy single lobe LOBECTOMY LUNG ROBOTIC NSCLC of right lung 05/28/2023 7:09 AM EDT [facility] Start: 05-21-2023 End: 05-21-2023 Anesthesia consultation 05/21/2023 4:00 PM EDT Pre-Operative Nurse Assessment [facility] [address] [place] [address], [place] [phone] Jake Valenzuela MD [address] [place] [address] [facility] Start: 05-14-2023 End: 05-14-2023 Patient encounter procedure 05/14/2023 3:00 PM EDT Office Visit Division of Medical Oncology at [facility] [address] [place] [address] Kathryn Tobias MD [address] [place] [address] Division of Medical Oncology at [facility] Start: 05-06-2023 End: 05-06-2023 Patient encounter procedure 05/06/2023 11:15 AM EDT Office Visit Division of Thoracic Surgery at [facility] [address] [place] [address] Jake Valenzuela MD [address] [place] [address] Division of Thoracic Surgery at [facility] Start: 05-06-2023 End: 05-06-2023 Patient encounter procedure 05/06/2023 9:30 AM EDT Appointment [facility] [address] [place] [address] [address] [place] [phone] [facility] Start: 04-28-2023 End: 04-28-2023 Admission to same day surgery center 04/28/2023 11:20 AM EDT - 04/28/2023 12:20 PM EDT Surgery [facility] [address] [place] [address] Jake Valenzuela MD [address] [place], [place] [address] [place] [address] BRONCHOSCOPY FLEXIBLE DIAGNOSTIC [facility] Comment on above: BRONCHOSCOPY FLEXIBL E DIAGNOSTIC Start: 04-28-2023 End: 04-28-2023 [facility] incl fluor gdnce dx w/cell washg spx [facility] Start: 04-28-2023 End: 04-28-2023 Brnschsc tndsc ebus dx/tx intervention perph les [facility] Start: 04-21-2023 End: 04-21-2023 Patient encounter procedure 04/21/2023 12:30 PM EDT Appointment [facility] [address] [place] [address] [facility] Start: 04-04-2023 Bx abdl/retroperiton eal mass prq needle BIOPSY ABDOMINAL MASS [facility] Start: 04-04-2023 Catheterization of vein [facility] Start: 04-04-2023 Oxygen therapy [facility] Start: 04-04-2023 Patient discharge [facility] Start: 04-04-2023 Vital signs measurements [facility] Start: 04-04-2023 Following clinical pathway protocol [facility] Start: 03-28-2023 COVID-19 VACCINE ( season) COVID-19 VACCINE ( season) [facility] Start: 03-28-2023 Influenza vaccination INFLUENZA VACC INE (#1) [facility] Start: 03-11-2023 Patient referral [facility] Work Phone: Start: 03-05-2023 CORE NDL BX LNG/MED PERQ CORE NDL BX LNG/MED PERQ [facility] Start: 03-05-2023 Following clinical pathway protocol [facility] Start: 03-05-2023 Catheterization of vein [facility] Start: 03-05-2023 Oxygen therapy [facility] Start: 03-05-2023 Patient discharge [facility] Start: 03-05-2023 Vital signs measurements [facility] Start: 01-24-2023 End: 01-24-2023 Patient encounter procedure [facility] Cardiac Non-Invasive Start: 09-10-2022 [facility] Start: 09-07-2022 COVID-19 VACCINE (6 - Pfizer series) COVID-19 VACCINE (6 - Pfizer series) [facility] Start: 04-06-2022 [facility] Work Phone: Start: 2011 Fall risk assessment Falls Risk Asse ssment [facility] Start: 2006 RSV VACCINE (1 - 1-d ose 60+ series) RSV VACCINE (1 - 1-dose 60+ series) [facility] Start: 1991 Screening for malign ant neoplasm of colon COLORECTAL CANCER SCREENING DISCUSSION [facility] Start: 1964 Hepatitis C screening Hepatitis C Sc reening [facility] Start: 1958 Depression screening using PHQ-9 (Patient Health Questionnaire 9) score Depression Screening (PHQ-2/9) [facility] Start: 1956 Diabetic foot examination Foot Exam [facility] Start: 1956 Glaucoma screening Diabetic Eye Exam [facility] Start: 1956 Urine screening for protein Urine Microalbumin [facility] Start: 1949 History and physical examination, annual for health maintenance Wellness Visit [facility] Start: 1946 Hepatitis C screening HEPATITI S C VIRUS SCREENING [facility] End: 09-14-2024 Bacteria identified in Unspecified specimen by Respiratory culture [facility] Comment on above: One Time for 1 Occur rences starting 09/14/2024 until 09/14/2024 End: 11-05-2023 CT Chest W contrast IV [facility] Work Phone: Comment on above: 1 Occurrences starti ng 11/05/2023 until 11/05/2023 End: 03-10-2024 CT Chest W contrast IV [facility] Work Phone: Comment on above: 1 Occurrences starti ng 03/10/2024 until 03/10/2024 End: 07-29-2024 CT [facility] above: 1 Occurrences starti ng 07/29/2024 until 07/29/2024 End: 11-03-2024 CT Chest W contrast IV [facility] Comment on above: 1 Occurrences starti ng 11/03/2024 until 11/03/2024 End: 12-16-2023 CT Chest WO contrast [facility] Work Phone: Comment on above: 1 Occurrences starti ng 12/16/2023 until 12/16/2023 End: 09-14-2024 CYTOLOGY, NON-STUDENT FINANCIAL SERVICES COUNSELOR [facility] Comment on above: One Time for 1 Occur rences starting 09/14/2024 until 09/14/2024, 1 completed CYTOLOGY, NON-STUDENT FINANCIAL SERVICES COUNSELOR - FNA ONLY [facility] Comment on above: Release Upon Orderin g for 1 Occurrences starting 04/28/2023, 1 completed End: 09-14-2024 CYTOLOGY, NON-STUDENT FINANCIAL SERVICES COUNSELOR - FNA ONLY [facility] Comment on above: One Time for 1 Occur rences starting 09/14/2024 until 09/14/2024, 1 completed Doppler ultrasonogra phy of aorta [facility] Work Phone: Doppler ultrasonogra phy of aorta [facility] End: 09-14-2024 Fungus identified in Unspecified specimen by Culture [facility] Comment on above: One Time for 1 Occur rences starting 09/14/2024 until 09/14/2024 Hepatic function panel [facility] End: 04-28-2023 Interrogation of cardiac pacemaker PACEMAKER/ICD INTERROGATION Cardiac Services Routine One Time for 1 Occurrences starting 04/28/2023 until 04/28/2023 [facility] Work Phone: Comment on above: One Time for 1 Occur rences starting 04/28/2023 until 04/28/2023 End: 05-28-2023 Interrogation of cardiac pacemaker [facility] Work Phone: Comment on above: One Time for 1 Occur rences starting 05/28/2023 until 05/28/2023 Lipid 1996 panel - S lauren or Plasma [facility] Measurement of respiratory function [facility] Measurement of respiratory function PFT STANDARD PFT Routine NSCLC of right lung 05/06/2023 11:45 AM EDT [facility] Work Phone: Measurement of respiratory function [facility] End: 09-14-2024 Mycobacterium sp identified in Unspecified specimen by Organism specific culture [facility] Comment on above: One Time for 1 Occur rences starting 09/14/2024 until 09/14/2024 End: 03-15-2024 Outpatient Device Clinic Referral - Open for details Outpatient Device Clinic Referral - Open for details Cardiac Services Routine AV block 1 Occurrences starting 01/13/2023 until 03/15/2024 [facility] Work Phone: Comment on above: 1 Occurrences starti ng 01/13/2023 until 03/15/2024 Patient Education [facility] Work Phone: Patient referral [facility] Work Phone: Positron emission tomography with computed tomography [facility] SURG PATH REQUEST [facility] Work Phone: Comment on above: Release Upon Orderin g for 1 Occurrences starting 05/28/2023, 1 completed TCCP - GOLD TCCP - GOLD Lab Routine Examination of participant in clinical trial 01/21/2024 8:11 AM EDT [facility] TCCP - LAV TCCP - LAV Lab R outine Examination of participant in clinical trial 01/21/2024 8:11 AM EDT [facility] TOTAL CANCER CARE PROTOCOL (KASSIE ONLY) TOTAL CANCER CARE PROTOCOL ([facility] ONLY) Lab Routine Examination of participant in clinical trial 01/21/2024 8:11 AM EDT [facility] Work Phone: US Carotid arteries [facility] Work Phone: US Carotid arteries [facility] US Carotid arteries [facility] XR Chest PA and Lateral XR CHEST PA AND LATERAL Imaging Routine NSCLC of right lung Ordered: 05/30/2023 [facility] Comment on above: Ordered: 05/30/2023 End: 09-14-2024 [facility] Imaging Routine One Time for 1 Occurrences starting 09/14/2024 until 09/14/2024 [facility] Comment on above: One Time for 1 Occur rences starting 09/14/2024 until 09/14/2024 [facility] Immunizations Immunization Date Immunization Notes Care Provider Bonita gardner 05-15-2023 influenza virus vaccine, unspecified formulation [facility] [employer] Operator Bsh 2 [facility] 04-22-2022 influenza virus vaccine, unspecified formulation Jake Valenzuela MD Work Phone: [facility] 04-11-2018 pneumococcal conjuga te vaccine, [address] Makayla Peters Work Phone: [facility] 08-11-[address] Makayla Peters Work Phone: [facility] 05-28-[address] Makayla Peters Work Phone: [facility] 05-28-[address] Makayla Peters Work Phone: [facility] Payers Date Payer Category Payer Medicare (Managed Care) MEDICARE [employer] HMO [id number] 2024 Private Health Insurance [id number] 2024 Self-pay [id number] 2022 Medicare [id number] 2022 Medicare [id number] 2013 Medicare [id number] 1946 Unknown [id number] 2.840.1.671850.3.579.2. 902 1946 Unknown [id number] 2.840.1.962870.3.579.2. 902 1946 Unknown [id number] 2.840.1.379094.3.579.2. 902 1946 Unknown [id number] 2.840.1.122476.3.579.2. 902 1946 Unknown [id number] .0.1.605778.3.579.2. 594 1946 Unknown [id number] 2.840.1.370903.3.579.2. 594 1946 Unknown [id number] 2.840.1.686827.3.579.2. 594 1946 Unknown [id number] 2.840.1.895678.3.579.2. 594 1946 Unknown [id number] .0.1.513328.3.579.2. 594 1946 Unknown [id number] 2.840.1.171883.3.579.2. 594 1946 Unknown [id number] 2.840.1.839739.3.579.2. 594 1946 Unknown [id number] 2.840.1.804374.3.579.2. 594 1946 Unknown [id number] 2.840.1.228624.3.579.2. 594 1946 Unknown [id number] 2.840.1.927045.3.579.2. 594 1946 Unknown [id number] .840.1.943362.3.579.2. 594 1946 Unknown [id number] .840.1.143895.3.579.2. 594 1946 Unknown [id number] .840.1.095578.3.579.2. 594 1946 Unknown [id number] .840.1.913848.3.579.2. 594 1946 Unknown [id number] 840.1.987077.3.579.2. 594 1946 Unknown [id number] 840.1.532041.3.579.2. 594 1946 Unknown [id number] 09.12.830.1.663811.3.579.2. 594 1946 Unknown [id number] 840.1.130701.3.579.2. 594 1946 Unknown [id number] 09.12.830.1.798766.3.579.2. 594 1946 Unknown [id number] 840.1.551729.3.579.2. 594 1946 Unknown [id number] 840.1.781297.3.579.2. 594 1946 Unknown [id number] 840.1.126245.3.579.2. 594 1946 Unknown [id number] 840.1.838682.3.579.2. 594 1946 Unknown [id number] 840.1.724100.3.579.2. 594 1946 Unknown [id number] 840.1.562221.3.579.2. 594 1946 Unknown [id number] 2.840.1.531969.3.579.2. 594 1946 Unknown [id number] 2.840.1.009322.3.579.2. 594 1946 Unknown [id number] 2.840.1.757710.3.579.2. 594 1946 Unknown [id number] 2.840.1.545584.3.579.2. 594 1946 Unknown [id number] .840.1.858953.3.579.2. 594 1946 Unknown [id number] 2.840.1.828250.3.579.2. 594 1946 Unknown [id number] .840.1.570672.3.579.2. 594 1946 Unknown [id number] .840.1.538170.3.579.2. 594 1946 Unknown [id number] .840.1.295699.3.579.2. 594 1946 Unknown [id number] .840.1.495935.3.579.2. 594 1946 Unknown [id number] 840.1.700498.3.579.2. 594 1946 Unknown [id number] .840.1.793429.3.579.2. 594 1946 Unknown [id number] .840.1.114472.3.579.2. 594 1946 Unknown [id number] .840.1.533345.3.579.2. 594 1946 Unknown [id number] 2.840.1.102861.3.579.2. 651 1946 Unknown [id number] 2.16.840.1.306199.3.579.2. 651 1946 Unknown [id number] 2.16840.1.789443.3.579.2. 651 Medicare [id number] Medicare [id number] Unknown [id number] Unknown [id number] 2.16.840.1.901483.3.579.2. 462 Unknown [id number] 2.16840.1.794516.3.579.2. 462 Unknown [id number] 2.840.1.267697.3.579.2. 462 Unknown [id number] 2.840.1.885677.3.579.2. 462 Unknown [id number] 2.840.1.423763.3.579.2. 462 Unknown [id number] 2.16.840.1.640611.3.579.2. 462 Unknown [id number] 2.840.1.512658.3.579.2. 462 Unknown [id number] 2.840.1.745355.3.579.2. 462 Unknown [id number] 2.840.1.379163.3.579.2. 462 Unknown [id number] 2.16840.1.743658.3.579.2. 462 Unknown [id number] 2.16840.1.709819.3.579.2. 462 Unknown [id number] 2.16840.1.556824.3.579.2. 462 Unknown [id number] 2.16840.1.724888.3.579.2. 462 Unknown [id number] 2.16840.1.592419.3.579.2. 462 Unknown [id number] 2.16840.1.534247.3.579.2. 462 Unknown [id number] 2.16.840.1.176227.3.579.2. 462 Social History Date Type Detail Facility Start: 01-24-2022 End: 11-17-2023 Tobacco smoking status NHIS Unknown if ever smoked [facility] Start: 10-17-2014 None [facility] Start: 10-17-2014 Spouse/ Significant Other [facility] Start: 10-17-2014 Non-smoker [facility] Start: 1945 Sex Assigned At Male [facility] Start: 01-16-2016 End: 01-05-2025 Tobacco smoking status NHIS Ex-smoker [facility] Start: 07-28-1988 End: 01-15-1993 History of tobacco use Current smoker [facility] Start: 07-28-1988 End: 01-15-1993 History of tobacco use Cigarette Smoker [facility] Start: 01-13-2023 Alcohol intake Current non-drinker of alcohol (finding) [facility] Start: 01-13-2023 End: 02-23-2025 History of Social function [facility] Start: 01-13-2023 End: 02-23-2025 Tobacco use panel [facility] Start: 1945 Sex Assigned At Not on file [facility] Start: 01-09-2023 Gender identity Identifies as male gender (finding) [facility] Start: 01-15-2023 Sexual orientation Heterosexual (finding) [facility] Start: 04-16-2023 End: 04-07-2024 Tobacco use and exposure Smokeless tobacco non-user [facility] Start: 04-23-2023 End: 02-23-2025 Alcohol intake Ex-drinker (finding) [facility] How hard is it for y ou to pay for the very basics like food, housing, medical care, and heating Not hard at all [facility] In the past 12 month s, was there a time when you were not able to pay the mortgage or rent on time? No [facility] How often to you hav e a drink containing alcohol? Never [facility] (I/We) worried maggy er (my/our) food would run out before (I/we) got money to buy more. Never true [facility] [facility] Start: 03-11-2023 End: 10-05-2024 Sex Male (finding) [facility] How hard is it for y ou to pay for the very basics like food, housing, medical care, and heating Not very hard [facility] Medical Equipment Procedure Code Equipment Code Equipment Origin al Text Equipment Identifier Dates Envelope Anti-Bacterial Aigis/Tyrx Pacer Resorbable Mesh - [id number] FDA Start: 01-13-2023 Pacer [id number] Viridiana re Xt Dr Mri - [id number], [id number] FDA Start: 01-13-2023 Lead [id number] Cap sure Fix - [id number], [id number] FDA Start: 01-13-2023 Mdt [id number] Danuta Xt Mri [id number] Start: 01-12-2023 Mdt 5076 Capsure fix Novus [id number] Start: 01-12-2023 MEDTRONIC DANUTA FDA Start: 01-13-2019 MEDTRONIC LEADS FDA Start: 01-13-2023 MEDTRONIC LEADS FDA Start: 01-13-2023 MEDTRONIC DANUTA FDA Start: 01-13-2019 MEDTRONIC LEADS FDA Start: 01-13-2023 MEDTRONIC LEADS FDA Start: 01-13-2023 MEDTRONIC DANUTA FDA Start: 01-13-2019 MEDTRONIC LEADS FDA Start: 01-13-2023 MEDTRONIC LEADS FDA Start: 01-13-2023 Drug-eluting coronary artery stent, [id number] lymer-coated [id number] FDA Start: 09-18-2023 MEDTRONIC DANUTA FDA Start: 01-13-2019 MEDTRONIC LEADS FDA Start: 01-13-2023 MEDTRONIC LEADS FDA Start: 01-13-2023 MEDTRONIC DANUTA FDA Start: 01-13-2019 MEDTRONIC LEADS FDA Start: 01-13-2023 MEDTRONIC LEADS FDA Start: 01-13-2023 MEDTRONIC DANUTA FDA Start: 01-13-2019 MEDTRONIC LEADS FDA Start: 01-13-2023 MEDTRONIC LEADS FDA Start: 01-13-2023 MEDTRONIC DANUTA FDA Start: 01-13-2019 MEDTRONIC LEADS FDA Start: 01-13-2023 MEDTRONIC LEADS FDA Start: 01-13-2023 MEDTRONIC DANUTA FDA Start: 01-13-2019 MEDTRONIC LEADS FDA Start: 01-13-2023 MEDTRONIC LEADS FDA Start: 01-13-2023 MEDTRONIC DANUTA FDA Start: 01-13-2019 MEDTRONIC LEADS FDA Start: 01-13-2023 MEDTRONIC LEADS FDA Start: 01-13-2023 MEDTRONIC DANUTA FDA Start: 01-13-2019 MEDTRONIC LEADS FDA Start: 01-13-2023 MEDTRONIC LEADS FDA Start: 01-13-2023 MEDTRONIC DANUTA FDA Start: 01-13-2019 MEDTRONIC LEADS FDA Start: 01-13-2023 MEDTRONIC LEADS FDA Start: 01-13-2023 MEDTRONIC DANUTA FDA Start: 01-13-2019 MEDTRONIC LEADS FDA Start: 01-13-2023 MEDTRONIC LEADS FDA Start: 01-13-2023 Goals Date Patient Goal Desired Activity /State Personal health goal Comment on above: Formatting of this n ote might be different from the original. In 2 weeks: Patient will demonstrate independence with home exercise program in order to progress rehab status in therapy. - met 05/11/24 Patient will verbalize understanding regarding neuropathy anatomy and pathophysiology for better patient education. - met 05/11/24 In 8 weeks: Patient will demonstrate an increase in sppb score to greater than 9 to reduce mortality risk. Patient will demonstrate improvement in lower extremity muscle strength by one grade in order to return to walking on his property. Patient will demonstrate normal dorsflexion range of motion to improve ankle strategy walking over uneven terrain. Functional Status Date Assessment Result Facility 09-19-2023 Functional status [facility] Work Phone: 05-28-2023 Are you deaf, or do you have serious difficulty hearing No 05/28/2023 6:50 PM EDT Irene Weeks, TONY No [facility] 05-28-2023 Are you blind, or do you have serious difficulty seeing, even when wearing glasses No 05/28/2023 6:50 PM EDT Irene Weeks, RN No [facility] 05-28-2023 Do you have serious difficulty walking or climbing stairs No 05/28/2023 6:50 PM EDIrene Bosch, RN No [facility] 05-28-2023 Do you have difficul ty dressing or bathing No 05/28/2023 6:50 PM Irene Chung, TONY No [facility] 05-28-2023 Because of a physica l, mental, or emotional condition, do you have difficulty doing errands alone such as visiting a physician's office or shopping No 05/28/2023 6:50 PM Irene Chung, TONY No [facility] Mental Status Date Assessment Result Facility 01-05-2025 Cognitive function Voice/Name [facility] Work Phone: 09-19-2023 Cognitive function Voice/Name [facility] Work Phone: 05-28-2023 Because of a physica l, mental, or emotional condition, do you have serious difficulty concentrating, remembering, or making decisions Yes 05/28/2023 6:50 PM Irene Chung, TONY Yes [facility] 04-04-2023 Cognitive function Awake;Alert;Appropriat e [facility] Work Phone: 03-05-2023 Cognitive function Voice/Name [facility] Work Phone: 09-10-2022 Cognitive function Voice/Name [facility] Work Phone: 04-06-2022 Cognitive function Level Of Cons ciousness Awake;Alert;Appropriate;Fol lows Commands [facility] Work Phone: 04-06-2022 Cognitive function Level Of Cons ciousness Awake;Alert;Appropriate;Fol lows Commands [facility] Work Phone: Clinical Notes 01-09-2023 to 02-23-2025 Isaac Hodge APRN-HUMAIRA - 02/23/2025 1:00 PM EDTPatient InstructionsMateo Mascorro MD - 12/22/2024 3:40 PM EDT Note Date & Type Note Facility 02-23-2025 History of Present illness Narrative Images from the original note were not included. Chief Complaint Patient presents with Follow-up Would like a PT referral for closer to home Date of Visit: 02/23/2025 Diagnosis: Stage IIB (pT3N0) SCC History of Present Illness Mr. Petar Penny is a 79 y.o. 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 Given high risk features (poorly differentiated, lymphovascular invasion) and high PD-L1, it was recommended he start adjuvant therapy with pembrolizumab per the PEARLS/Keynote-091 study. He began this treatment on 10/01/23 and completed 1 year of therapy on 09/20/24. He was placed in surveillance thereafter. Interval History Since his last visit, the patient reports stable breathing (LUCIO with moderate activity). His appetite and weight are stable. He is independent with ADL's. He has ongoing BLE neuropathy and some associated imbalance from this, but denies falls - he was interested in working with PT closer to home as ongoing management. Brief Oncology History Oncology History Squamous cell carcinoma of right lung 03/05/2023 Initial Diagnosis Outside Slides [id number] (03/05/23) A. Right upper lung mass, CT-guided core biopsy: Squamous cell carcinoma 04/04/2023 Pathology Adrenal Biopsy [place]: 04/28/2023 Procedure EBUS with FNA: level 7 was negative (not adequate) 11R was negative and adequate 4R was negative (not adequate) 05/28/2023 Surgery Robotic assisted thoracoscopic right upper lobe lobectomy 05/28/2023 - Cancer Staged Staging form: Lung, AJCC 8th Edition - Pathologic stage from 05/28/2023: Stage IIB (pT3, pN0, cM0) 10/01/2023 - 09/20/2024 Immunotherapy Adjuvant pembrolizumab 07/29/[address] IMPRESSION: 1. Development of a new 6 x 6 x 6 mm lobulated solid nodule in the right lower lobe superior segment, highly suspect to represent a new primary lung malignancy/presumed adenocarcinoma. 2. No suspect adenopathy. 09/14/2024 Pathology Bronchoscopy Past History Past medical, surgical, family, and social histories have been reviewed and updated with the patient today and are located elsewhere in the medical record. Current Outpatient Medications Medication Sig Acetaminophen 325 MG tablet Take 2 tablets by mouth every 4 hours as needed for Mild Pain. amLODIPine 10 MG tablet Take 1 tablet by mouth daily. Arnuity Ellipta 200 MCG/ACT Aerosol Powder, breath activated Aspirin [address] tablet Take 1 tablet by mouth daily. Atorvastatin 40 MG tablet Take 1 tablet by mouth at bedtime. Clopidogrel 75 MG tablet Take 1 tablet by mouth daily. fluticasone 50 MCG/ACT Suspension nasal spray 2 sprays by Nasal route daily. Gabapentin 100 MG capsule Take 1 capsule by mouth at bedtime as needed. Losartan 50 MG tablet Take 0.5 tablets by mouth daily. Mirtazapine 15 MG tablet TAKE 1 & 1/2 (ONE & ONE-HALF) TABLETS BY MOUTH ONCE DAILY IN THE EVENING nitroGLYCERIN 0.[address] 1 tablet under tongue Every 5 MINutes as needed. [place] 3 1000 MG capsule Take 2 capsules by mouth daily. Pantoprazole [address] tablet DR Take 1 tablet by mouth daily. Pembrolizumab (KEYTRUDA IV) by Intravenous route. triamcinolone 0.1 % Cream cream Apply to affected areas twice daily. Avoid face. Vitamin E 200 units capsule Take 1 capsule by mouth daily. Requested Prescriptions No prescriptions requested or ordered in this encounter Review of Systems Constitutional: (+) mild fatigue. (+) weight loss. Negative for fever. HENT: (+) B/L ear ringing. Negative for congestion, sore throat, and sinus pain. Eyes: Negative for blurred vision or double vision. Cardiovascular: (+) lightheadedness with rapid position changes --> chronic. Negative for chest pain, syncope, palpitations and leg swelling. Respiratory: (+) LUCIO. (+) mild dry cough productive. Gastrointestinal: Negative for nausea, vomiting, diarrhea, constipation or trouble swallowing. Genitourinary: Negative for bladder incontinence, dysuria, and frequency. Musculoskeletal: Negative for myalgias, joint pain, and falls. Neurological: (+) chronic numbness/tingling to bottom of feet with associated imbalance (L>R) --> he has a walking stick that he uses on occasion. Negative for COBOS's, tremors, and focal weakness. Psychiatric: Negative for depression/anxiety. Skin: No rashes or lesions. Hematologic: (+) easy bruising. See Toxicity Assessment Sheet for more ROS. Physical Exam Vitals: 02/23/25 1256 BP: 141/71 Pulse: 57 Resp: 16 Temp: 97.3 degrees F (36.3 degrees C) TempSrc: Oral SpO2: 94% Weight: 91.4 kg (201 lb 9.6 oz) Height: 1.787 m (5' 10.35) Wt Readings from Last 3 Encounters: 02/23/25 91.4 kg (201 lb 9.6 oz) 12/22/24 90.7 kg (200 lb) 11/03/24 92.5 kg (204 lb) ECOG performance status: 1 General: A&O x 3. No acute distress. Eyes: PERRLA, EOMI, anicteric sclera, conjunctiva & lids normal. Neck: Supple, no rigidity, no JVD, no lymphadenopathy. Oropharynx: No erythema or lesions noted. Moist and pink mucus membranes. Respiratory: Clear to auscultation bilaterally with referred breath sounds to RUL. No crackles/rhonchi/wheezes. Cardiovascular: Regular rate and rhythm. No murmurs, rubs, clicks, or gallops. Abdomen: BS's X4 quadrants. Soft, non-distended. Tenderness with palpation of RLQ. Neurological: No focal deficits. CN II-XII grossly intact. Extremities: No peripheral edema. Skin: Scattered bruising to BUE's. Skin color, turgor, and temperature otherwise normal. No rashes. Lymph Nodes: No cervical or supraclavicular adenopathy. Psychosocial: Appropriate to situation. Imaging 02/23/[address] -Pending Assessment and Plan Stage IIB SCC: Most recently s/p 1 year of adjuvant Pembrolizumab in late August 2024. His restaging scan from earlier today is pending. We'll follow up on results once available, but tentatively plan for a telephone visit in 4 months (with repeat imaging beforehand). We'll obviously see him sooner if there are any concerning findings on the final radiology report from today's scan. CAD: S/p LHC and stent placement locally (most recently in September 2023). Continue follow up with local provider. Anxiety/Insomnia: Pt on Mirtazapine at bedtime. He was also referred to [facility] previously, but no showed to the scheduled visit on 11/26/23 (and it has not yet been rescheduled). Chronic BLE Neuropathy: Improved with outpatient PT services, which he completed in the fall. He was interested in resuming this locally, so I will provide him an order for this. Pt seen independently of Dr. Tobias. documented in this encounter [facility] 02-23-2025 Instructions Eloina Garcia RN - 02/23/2025 1:00 PM EDT YOUR PRIMARY TEAM Kathryn Tobias MD - Thoracic Oncologist JOHN Sullivan - Nurse Practitioner DECLAN Penn, RN, OCN - Primary Nurse IMPORTANT: If you are having symptoms, side effects, or problems, please call our main number at [phone]. You will speak with an Oncology Journeyman Sheet Metal Worker, who will take a message and forward it to our Triage Nurse. The Triage Nurse will return your call within 24 hours, assess your problem, consult with your medical team, and give direction on what should be done. We are not able to accommodate walk-in appointments in order to keep our clinic running in a more timely manner. This is to provide the best possible care we can to all our patients. If it is an emergency you will need to go to your local ER. Ask them to fax your records to us so that we can update our team, fax number [phone]. Results: Please be aware that most lab and imaging results are being released to [facility]. These can sometimes be confusing or concerning to read. Please know that your care team will review/discuss results with you at your follow up appointment. Any questions or concerns can be addressed at that time. Appointments: We will do our best to schedule your infusion appointments after your clinic (MD or nurse practitioner) visit. On the days you do not have a clinic appointment, your infusion appointments will be scheduled prior to 9AM or after 2pm. Mid-day appointments are reserved for patients who need to be seen in the clinic. Thank you for understanding. As a multidisciplinary team, you may be seen by a medical oncology fellow, resident, or student, in addition to your provider (Doctor, Nurse practitioner, or Physician Club Former) during your clinic visit. Please note there is a minimum two week turn around for all paperwork such as disability, FMLA, etc..please submit paperwork to our office as soon as possible. If you receive a randomized patient satisfaction survey in the mail we would appreciate your feedback! We look forward to your positive comments as well as areas to improve. We are honored to be a part of your care team. Thank you. documented in this encounter [facility] 01-05-2025 Radiology Diagnostic study note [facility] Imaging Services [address] [place] [address] [id number] Brain/Head without Contrast MR#: [id number] Acct: [id number] Name: PETAR PENNY Rep #: [id number] : 1945 M 79 From: Jesus Malone MD PCP: Dr. Makayla Peters MD Status: R EG ER Study:Brain/Head without Contrast Date of Exa m: 01/05/25 Exam# [id number] Ordering Dr: Saúl Macias DO PROCEDURE: BRAIN/HEAD WITHOUT CONTRAST 01/05/2025 REASON FOR EXAM: DIZZINESS TECHNIQUE: Head CT without intravenous contrast. Coronal and Sagittal reconstruction serieswere provided. One or more dose reduction techniques were used (e.g., Automated exposure control, adjustment of the mA and/or kV according to patient size, use of iterative reconstruction technique. COMPARISON: 04/06/2022 FINDINGS: No intracranial mass, hemorrhage or edema. No hydrocephalus. The ventricles are normal in caliber. CT/Brain/Head without Contrast IMPRESSION: No acute abnormality Reading Location: [facility] CC: Dr. Saúl Macias DO; Dr. Makayla Peters MD ~ Consumer Safety Inspector: Signed [facility] 12-22-2024 History of Present illness Narrative Images from the original note were not included. Interventional Pulmonology Follow Up Clinic Note Provider: Mateo Mascorro MD Referring Provider: Dr. Tobias Reason for Evaluation/Referral: pulmonary nodule Chief complaint: Chief Complaint Patient presents with Follow-up valente LUCIO. History of present illness: Mr. Petar Penny is a 79 y.o. male, former smoker with CAD, HTN, HLD with stage IIB ([id number]), PD-L1 100%, keratinizing squamous cell carcinoma (intra-lobar mets) s/p robotic assisted right upper lobe lobectomy 05/28/23. Given high risk features (poorly differentiated, lymphovascular invasion) and high PD-L1, it was recommended he start adjuvant therapy with pembrolizumab per the PEARLS/Keynote-091 study. He began this treatment on 10/01/23. He is now on surveillance. Imaging in July 2024 revealed a small but suspicious lung nodule for which he was referred for evaluation. He underwent robotic navigational bronchoscopy for a lesion that was quite small and appeared sub-solid (some air bronchogram on CT). While a different technique than the planning CT, the lesion appeared about 5mm in size on CBCT during the case. Results were negative for malignancy and he was scheduled for a [address] He still reports some SOB that is mostly chronic. He has tried inhalers which his don't help make his breathing worse. Currently denies chest pain, wheezing, or any increased cough or hemoptysis. His appetite is good and his weight is stable. Past Medical History: Diagnosis Date AAA (abdominal aortic aneurysm) Asthma 11/2023 mild, new diagnosis AV block CAD (coronary artery disease) Cardiomegaly Congestive heart failure COPD (chronic obstructive pulmonary disease) COVID-19 Essential hypertension, benign Hyperlipidemia AR (myocardial infarction) states he had 4 heart attacks, 5 stents and a pacemaker VANDANA (obstructive sleep apnea) Pacemaker RBBB Seizure Squamous cell carcinoma of lung TIA (transient ischemic attack) thinks this is from migraines Vascular disease Past Surgical History: Procedure Laterality Date LOBECTOMY LUNG ROBOTIC Right 05/28/2023 Laterality: Right; Surgeon: Jake Valenzuela MD; Location: [facility] MAIN OR BRONCHOSCOPY FLEXIBLE DIAGNOSTIC Right 05/28/2023 Laterality: Right; Surgeon: Jake Valenzuela MD; Location: [facility] MAIN OR LYMPHADENECTOMY MEDIASTINAL & REGIONAL THORACOSCOPIC ADD-ON PX N/A 05/28/2023 Laterality: N/A; Surgeon: Jake Valenzuela MD; Location: [facility] MAIN OR BRONCHOSCOPY FLEXIBLE DIAGNOSTIC N/A 04/28/2023 Laterality: N/A; Surgeon: Jake Valenzuela MD; Location: [facility] MAIN OR BRONCHOSCOPY FLEXIBLE W/ EBUS DURING BRONCH DIAGNOSTICS/INTEVENTION FO N/A 04/28/2023 Laterality: N/A; Surgeon: Jake Valenzuela MD; Location: [facility] MAIN OR PACEMAKER PLACEMENT 12/2022 Current Outpatient Medications Medication Sig Acetaminophen 325 MG tablet Take 2 tablets by mouth every 4 hours as needed for Mild Pain. amLODIPine 10 MG tablet Take 1 tablet by mouth daily. Aspirin [address] tablet Take 1 tablet by mouth daily. Atorvastatin 40 MG tablet Take 1 tablet by mouth at bedtime. Clopidogrel 75 MG tablet Take 1 tablet by mouth daily. fluticasone 50 MCG/ACT Suspension nasal spray 2 sprays by Nasal route daily. Gabapentin 100 MG capsule Take 1 capsule by mouth at bedtime as needed. Losartan 50 MG tablet Take 0.5 tablets by mouth daily. nitroGLYCERIN 0.[address] 1 tablet under tongue Every 5 MINutes as needed. [place] 3 1000 MG capsule Take 2 capsules by mouth daily. Pantoprazole [address] tablet DR Take 1 tablet by mouth daily. Vitamin E 200 units capsule Take 1 capsule by mouth daily. Arnuity Ellipta 200 MCG/ACT Aerosol Powder, breath activated (Patient not taking: Reported on 12/22/2024) Mirtazapine 15 MG tablet TAKE 1 & 1/2 (ONE & ONE-HALF) TABLETS BY MOUTH ONCE DAILY IN THE EVENING (Patient not taking: Reported on 12/22/2024) Pembrolizumab (KEYTRUDA IV) by Intravenous route. (Patient not taking: Reported on 12/22/2024) triamcinolone 0.1 % Cream cream Apply to affected areas twice daily. Avoid face. (Patient not taking: Reported on 12/22/2024) Allergies Allergen Reactions Penicillins Anaphylaxis family history includes Cancer- Other in his brother; Diabetes in his sister; Lung Cancer in his mother. Social History Socioeconomic History Marital status: Spouse name: Not on file Number of children: Not on file Years of education: Not on file Highest education level: Not on file Occupational History Not on file Tobacco Use Smoking status: Former Current packs/day: 0.00 Average packs/day: 1.5 packs/day for 4.0 years (6.0 ttl pk-yrs) Types: Cigarettes Start date: 1988 Quit date: 1992 Years since quittin.4 Smokeless tobacco: Never Vaping Use Vaping status: Never Used Substance and Sexual Activity Alcohol use: Not Currently Drug use: Never Sexual activity: Not on file Other Topics Concern Not on file Social History Narrative Not on file Social Drivers of Health Financial Resource Strain: Low Risk (09/20/2024) Overall Financial Resource Strain (CARDIA) Difficulty of Paying Living Expenses: Not very hard Food Insecurity: No Food Insecurity (09/20/2024) NCSS - Food Insecurity Worried About Running Out of Food in the Last Year: No Ran Out of Food in the Last Year: No Transportation Needs: No Transportation Needs (09/20/2024) NCSS - Transportation Lack of Transportation: No Physical Activity: Not on file Stress: Not on file Social Connections: Not on file Personal Safety: Not on file Housing Stability: At Risk (09/20/2024) NCSS - Housing/Utilities Has Housing: No Worried About Losing Housing: No Unable to Get Utilities: No Review of Systems Constitutional: Denies fevers/chills, night sweats, weight loss, increased fatigue Ear, nose, throat: Denies sore throat, rhinorrhea, ear pain, sinus congestion/pian, post-nasal drip Eyes: Denies vision changes CV: Denies chest pain, palpitations, leg swelling Pulm: See HPI Hem: No history of abnormal bleeding or excess bleeding after a procedure GI: Denies abdominal pain, nausea/vomiting, diarrhea, constipation, BRBPR : Denies dysuria MSK: No musculoskeletal pain Neuro: No numbness/tingling, weakness, h/a, or dizziness Skin: No rash Physical exam: Blood pressure 132/68, pulse 75, temperature 97.4 F (36.3 C), temperature source Oral, resp. rate 18, weight 90.7 kg (200 lb), SpO2 94%. GPEx: Awake, alert, sitting in chair in no apparent distress HEENT: No pallor or icterus, oropharynx is clear Pulm: Equal chest expansion bilaterally. decreased to auscultation bilaterally CV: Regular rate and rhythm, no rubs/ gallops or murmurs, no lower extremity edema GI/abdominal: Soft, non-tender, non-distended, bowel sounds are normal Skin: No rashes, clubbing or cyanosis Heme/ lymphatic: No ecchymoses, no cervical or supraclavicular lymphadenopathy Musculoskeletal: No obvious joint deformity, swelling, erythema or tenderness Neurologic: Awake, alert, speech normal, extra-ocular muscles normal, no focal neurologic deficit noted Psychiatric: Oriented, pleasant GRADE ECOG PERFORMANCE STATUS 1 Restricted in physically strenuous activity but ambulatory and able to carry out work of a light or sedentary nature, e.g., light house work, office work Diagnostic review: I personally reviewed the following tests: Chest CT: From 11/03/24 and showed 1. Resolved lobulated nodule in the right lower lobe superior segment, other pulmonary nodules are stable. No new suspicious pulmonary nodules. 2. No adenopathy in the chest. 05/06/2023 10:05 AM 05/06/2023 11:45 AM Pulmonary Function Test FVC-Pre 2.88 Liters 2.88 Liters FVC-%Pred-Pre 69 % 69 % FEV1/FVC-Pre 75 % 75 % FEV1-%Pred-Pre 72 % 72 % FEV1-Pre 2.16 Liters 2.16 Liters TLCPleth-%Pred-Pre 104 % 104 % TLCPleth-Pre 7.32 Liters 7.32 Liters DLCOcor-%Pred-Pre 77 % 77 % DLCOunc-Pre 19.45 mL/mmHg/min 19.45 mL/mmHg/min Other Labs: CBC Lab Results Component Value Date WBC 7.60 11/03/2024 HGB 15.1 11/03/2024 HCT 43.5 11/03/2024 PLATELET 235 11/03/2024 MCV 89.5 11/03/2024 EDIF Lab Results Component Value Date RBCDISTRIBU 13.4 11/03/2024 GRNLOCYT 60.3 11/03/2024 LYMPHOCYT 25.0 11/03/2024 MONOCYTELEC 8.8 11/03/2024 EOSINOPHILS 3.8 11/03/2024 BASOPHILS 1.8 11/03/2024 LYMPHOCYTABS 1.90 11/03/2024 EOSINOPHLABS 0.29 11/03/2024 PLATELET 235 11/03/2024 MPV 9.9 11/03/2024 Lab Results Component Value Date SODIUM 135 11/03/2024 POTASSIUM 4.2 11/03/2024 CHLORIDE 104 11/03/2024 CO2 24 11/03/2024 BUN 9 11/03/2024 CREATSERUM 1.11 11/03/2024 GLUCOSE 104 11/03/2024 Lab Results Component Value Date ALT 13 11/03/2024 AST 21 11/03/2024 ALKPHOS 62 11/03/2024 BILITOTAL 1.3 11/03/2024 Lab Results Component Value Date INR 1.1 05/06/2023 PT 13.8 05/06/2023 Assessment and plan: Petar Penny is a 79 y.o. male with a history of stage IIB SCC on surveillance who had a RLL sub-centimeter nodule that was negative for malignancy on navigational bronch and resolved on subsequent imaging. It was likely an inflammatory/post-infectious lesion. Other small nodules remain stable. Further recommendations to follow further CT scan imaging with medical oncology. It has already been ordered for January. I will remain available on an as needed basis. Mateo Mascorro MD, FCCP embedded software developer Director of Interventional Pulmonology Interventional Pulmonology Fellowship Help Desk Operator [phone] CC: Kathryn Tobias MD documented in this encounter [facility] 11-30-2024 Evaluation note Diagnosis Onset Date Resolution Presence of permanent cardiac pacemaker acute November 30, 2024 11:15am Second degree AV block, Mobitz type I acute November 30, 2024 11 :15am Coronary artery disease acute M ay 2024 11:18am Presence of permanent cardiac pacemaker acute November 30, 2024 11:18am Abdominal aortic aneurysm without rupture chronic November 30, 2024 11 :18am Hypertension chronic November 30 11:18am Squamous cell lung cancer chronic November 30, 2024 11 :18am Asthma-COPD overlap syndrome chronic December 08, 2024 10:40am VANDANA (obstructive sleep apnea) chronic December 08, 2024 10:40am Squamous cell lung cancer chronic December 08, 2024 10:40am [facility] Work Phone: 1(476) 979-864505-06-2025 Evaluation note* Diagnosis Onset Date Resolution Status Admit Date Presence of permanent cardia c pacemaker acute November 30, 2024 11 :15am Second degree AV block, Mobi tz type I acute November 30, 2024 11 :15am Coronary artery disease acute M ay 2024 11:18am Presence of permanent cardia c pacemaker acute November 30, 2024 11 :18am Abdominal aortic aneurysm without rupture chronic November 30, 2024 11 :18am Hypertension chronic November 30 11:18am Squamous cell lung cancer chronic November 30, 2024 11:18am Asthma-COPD overlap syndrome chronic December 08, 2024 10:40am VANDANA (obstructive sleep apnea) chroni c December 08, 2024 10:40am Squamous cell lung cancer chronic December 08, 2024 10:40am AAA (abdominal aortic aneurysm) acut e February 25, 2025 2:13pm Carotid disease, bilateral acute February 25, 2025 2:13pm [facility] Work Phone: 1(764) 344-753304-09-2025 History of Present illness Narrative* Kathryn Tobias MD - 11/03/2024 10:20 AM EDT Images from the original note were not included. Chief Complaint Patient presents with Follow-up Pt stopped taking his Arnuity Ellipta inhaler- he states he did not like the way it made him feel when taking it- he states it was making his breathing worse Pt reports new rash on back- wondering if from Keytruda Date of Visit: 11/03/2024 Diagnosis: Stage IIB (pT3N0) SCC History of Present Illness Mr. Petar Penny is a 79 y.o. male, former smoker, PMH significant for CAD, HTN, HLD now with stage IIB ([id number]), PD-L1 100%, keratinizing squamous cell carcinoma (intra-lobar mets) s/p robotic assisted right upper lobe lobectomy 05/28/23. Given high risk features (poorly differentiated, lymphovascular invasion) and high PD-L1, it was recommended he start adjuvant therapy with pembrolizumab per the PEARLS/Keynote-091 study. He began this treatment on 10/01/23 and completed it on 09/20/24. He is currently on surveillance. Interval History Mr. Penny presents today for surveillance follow-up. Since his last visit, he reports doing well overall. He reports an itchy rash on his back, which he believes is worsening due to a reaction to laundry detergent. He has tried hydrocortisone cream without relief. He also notes that he previously used an inhaler but discontinued it, as it caused SOB and coughing. Otherwise, he denies fevers. His appetite and weight are stable. He is independent with ADL's. Brief Oncology History Oncology History Squamous cell carcinoma of right lung 03/05/2023 Initial Diagnosis Outside Slides [id number] (03/05/23) A. Right upper lung mass, CT-guided core biopsy: Squamous cell carcinoma 04/04/2023 Pathology Adrenal Biopsy [place]: 04/28/2023 Procedure EBUS with FNA: level 7 was negative (not adequate) 11R was negative and adequate 4R was negative (not adequate) 05/28/2023 Surgery Robotic assisted thoracoscopic right upper lobe lobectomy 05/28/2023 - Cancer Staged Staging form: Lung, AJCC 8th Edition - Pathologic stage from 05/28/2023: Stage IIB (pT3, pN0, cM0) 10/01/2023 - Immunotherapy Adjuvant pembrolizumab 07/29/[address] IMPRESSION: 1. Development of a new 6 x 6 x 6 mm lobulated solid nodule in the right lower lobe superior segment, highly suspect to represent a new primary lung malignancy/presumed adenocarcinoma. 2. No suspect adenopathy. 09/14/2024 Pathology Bronchoscopy Past History Past medical, surgical, family, and social histories have been reviewed and updated with the patient today and are located elsewhere in the medical record. Current Outpatient Medications Medication Sig Acetaminophen 325 MG tablet Take 2 tablets by mouth every 4 hours as needed for Mild Pain. amLODIPine 10 MG tablet Take 1 tablet by mouth daily. Aspirin [address] tablet Take 1 tablet by mouth daily. Atorvastatin 40 MG tablet Take 1 tablet by mouth at bedtime. Clopidogrel 75 MG tablet Take 1 tablet by mouth daily. fluticasone 50 MCG/ACT Suspension nasal spray 2 sprays by Nasal route daily. Gabapentin 100 MG capsule Take 1 capsule by mouth at bedtime as needed. Losartan 50 MG tablet Take 0.5 tablets by mouth daily. Mirtazapine 15 MG tablet TAKE 1 & 1/2 (ONE & ONE-HALF) TABLETS BY MOUTH ONCE DAILY IN THE EVENING nitroGLYCERIN 0.[address] 1 tablet under tongue Every 5 MINutes as needed. [place] 3 1000 MG capsule Take 2 capsules by mouth daily. Pantoprazole [address] tablet DR Take 1 tablet by mouth daily. Pembrolizumab (KEYTRUDA IV) by Intravenous route. Vitamin E 200 units capsule Take 1 capsule by mouth daily. Arnuity Ellipta 200 MCG/ACT Aerosol Powder, breath activated (Patient not taking: Reported on 11/03/2024) Requested Prescriptions No prescriptions requested or ordered in this encounter Review of Systems Constitutional: (+) mild fatigue. Negative for fever. HENT: Negative for congestion, sore throat, and sinus pain. Eyes: Negative for blurred vision or double vision. Cardiovascular: (+) lightheadedness with rapid position changes. Negative for chest pain, syncope, palpitations and leg swelling. Respiratory: (+) LUCIO. (+) mild dry cough productive. Gastrointestinal: Negative for nausea, vomiting, diarrhea, constipation or trouble swallowing. Genitourinary: Negative for bladder incontinence, dysuria, and frequency. Musculoskeletal: (+) physical deconditioning in his BLE's. Negative for myalgias, joint pain, and falls. Neurological: (+) chronic numbness/tingling to bottom of feet with associated imbalance (L>R) --> he has a walking stick that he uses on occasion. Negative for COBOS's, tremors, and focal weakness. Psychiatric: Negative for depression/anxiety. Skin: No rashes or lesions. Hematologic: (+) easy bruising. See Toxicity Assessment Sheet for more ROS. Physical Exam Vitals: 11/03/24 0954 BP: 151/79 Pulse: 68 Resp: 16 Temp: 97.3 degrees F (36.3 degrees C) TempSrc: Oral SpO2: 94% Weight: 92.5 kg (204 lb) Height: 1.727 m (5' 8) Wt Readings from Last 3 Encounters: 11/03/24 92.5 kg (204 lb) 09/20/24 91.6 kg (201 lb 14.4 oz) 08/11/24 91 kg (200 lb 11.2 oz) ECOG performance status: 0 General: A&O x 3. No acute distress. Eyes: PERRLA, EOMI, anicteric sclera, conjunctiva & lids normal. Neck: Supple, no rigidity, no JVD, no lymphadenopathy. Oropharynx: No erythema or lesions noted. Moist and pink mucus membranes. Respiratory: Clear to auscultation bilaterally with referred breath sounds to RUL. No crackles/rhonchi/wheezes. Cardiovascular: Regular rate and rhythm. No murmurs, rubs, clicks, or gallops. Abdomen: BS's X4 quadrants. Soft, non-tender, non-distended. Neurological: No focal deficits. CN II-XII grossly intact. Extremities: No peripheral edema. Skin: Skin color, turgor, and temperature normal. No rashes or lesions. Lymph Nodes: No cervical or supraclavicular adenopathy. Psychosocial: Appropriate to situation. Labs and Studies Labs reviewed CBC Recent Labs 11/03/24 0902 WBC 7.60 HGB 15.1 PLATELET 235 CHEMISTRIES Recent Labs 11/03/24 0902 SODIUM 135 POTASSIUM 4.2 CHLORIDE 104 BUN 9 CREATSERUM 1.11 CALCIUM 8.9 CO2 24 GLUCOSE 104 LFTS Recent Labs 11/03/24 0902 BILITOTAL 1.3 AST 21 ALT 13 ALKPHOS 62 ALBUMIN 4.5 Lab Results Component Value Date TSH 2.764 09/20/2024 T4FREE 1.39 09/20/2024 Pathology 09/14/[address] Chest with contrast 11/03/24 Official report pending Assessment and Plan Stage IIB SCC: Pt presents for a surveillance follow-up with scans. His previous bronchoscopy was negative for malignancy to the new 6mm RLL lung nodule that was identified on chest CT last month. Official CT chest from today is pending, but appears stable with upon Dr. Tobias's review, and the area of concern noted previously is no longer visible. As such, we will continue to follow for now. RTC 4 months to see MD with scans prior. CAD: S/p LHC and stent placement locally (most recently in September 2023). Continue follow up with local provider. Anxiety/Insomnia: Pt on Mirtazapine at bedtime. He was also referred to [facility] previously, but no showed to the scheduled visit on 11/26/23 (and it has not yet been rescheduled). Chronic BLE Neuropathy: Improved with outpatient PT services, which he completed in the Fall of 2023. Rash: Pt has an itchy rash located on his back. He has tried hydrocortisone 1% cream without improvement. Will send in triamcinolone cream. Orders Placed This Encounter CT CHEST WITHOUT CONTRAST Return in about 16 weeks (around 02/23/2025) for same day CT scan [facility] afte 10am, [facility] same day surveillance. Documented by Maylin Colón, for Dr. Kathryn Tobias on 11/03/2024 at 11:57 AM. All medical record entries made by the [place] were at my direction and personally dictated by me, Kathryn Tobias MD . I have reviewed and edited the chart and agree that the record accurately reflects my personal performance of the history, physical exam, assessment and plan. I have also personally directed, reviewed, and agree with the discharge instructions. Kathryn Tobias MD [employer] Gold Leaf Laborer with Tenure of Medicine (Thoracic Oncology/Geriatric Oncology) [facility] Thoracic Oncology [facility] Clinic Pager: [phone] Email: [email or web address] documented in this encounterTri[facility] History of Present illness Narrative* Olya Enirquez RN - 09/20/2024 10:30 AM EST Petar Penny seen in Medical Oncology clinic today. Nursing documentation of today's clinic visit reviewed. Petar Penny seen in infusion clinic. Labs, allergies, medications, and toxicity screen reviewed. Clear for treatment. Patient/family needs and learning style identified, RN verbally educated patient about today's plan of care, lab results, and clinic routine. Patient stated understanding. Petar Penny received Keytruda today - completed Cycle 14 Day 1. Patient tolerated infusion(s) without incident. Good blood return obtained from piv before, during, and after infusion(s). See Teaching/Learning Flowsheet for education information. Patient discharged from clinic without complaints. documented in this encounterTriHealth [facility] History of Present illness Narrative* Isaac Hodge, WEATHER TEACHER-COMMUNITY NURSE - 09/20/2024 9:20 AM EST Images from the original note were not included. Chief Complaint Patient presents with Follow-up Date of Visit: 09/20/2024 Diagnosis: Stage IIB (pT3N0) SCC History of Present Illness Mr. Petar Penny is a 79 y.o. male, former smoker, PMH significant for CAD, HTN, HLD now with stage IIB ([id number]), PD-L1 100%, keratinizing squamous cell carcinoma (intra-lobar mets) s/p robotic assisted right upper lobe lobectomy 05/28/23. Given high risk features (poorly differentiated, lymphovascular invasion) and high PD-L1, it was recommended he start adjuvant therapy with pembrolizumab per the PEARLS/Keynote-091 study. He began this treatment on 10/01/23. Interval History Since his last visit, the patient underwent a bronchoscopy to evaluate a new 6mm RLL lung nodule - pathology was non-diagnostic. Otherwise, he reports stable breathing (LUCIO with moderate activity). He has an ongoing dry cough, but this is not too bad he says. He denies fevers. His appetite and weight are stable. He is independent with ADL's. Brief Oncology History Oncology History Squamous cell carcinoma of right lung 03/05/2023 Initial Diagnosis Outside Slides [id number] (03/05/23) A. Right upper lung mass, CT-guided core biopsy: Squamous cell carcinoma 04/04/2023 Pathology Adrenal Biopsy [place]: 04/28/2023 Procedure EBUS with FNA: level 7 was negative (not adequate) 11R was negative and adequate 4R was negative (not adequate) 05/28/2023 Surgery Robotic assisted thoracoscopic right upper lobe lobectomy 05/28/2023 - Cancer Staged Staging form: Lung, AJCC 8th Edition - Pathologic stage from 05/28/2023: Stage IIB (pT3, pN0, cM0) 10/01/2023 - Immunotherapy Adjuvant pembrolizumab 07/29/[address] IMPRESSION: 1. Development of a new 6 x 6 x 6 mm lobulated solid nodule in the right lower lobe superior segment, highly suspect to represent a new primary lung malignancy/presumed adenocarcinoma. 2. No suspect adenopathy. 09/14/2024 Pathology Bronchoscopy Past History Past medical, surgical, family, and social histories have been reviewed and updated with the patient today and are located elsewhere in the medical record. Current Outpatient Medications Medication Sig Acetaminophen 325 MG tablet Take 2 tablets by mouth every 4 hours as needed for Mild Pain. amLODIPine 10 MG tablet Take 1 tablet by mouth daily. Arnuity Ellipta 200 MCG/ACT Aerosol Powder, breath activated Aspirin [address] tablet Take 1 tablet by mouth daily. Atorvastatin 40 MG tablet Take 1 tablet by mouth at bedtime. fluticasone 50 MCG/ACT Suspension nasal spray 2 sprays by Nasal route daily. Losartan 50 MG tablet Take 0.5 tablets by mouth daily. Mirtazapine 15 MG tablet TAKE 1 & 1/2 (ONE & ONE-HALF) TABLETS BY MOUTH IN THE EVENING nitroGLYCERIN 0.[address] 1 tablet under tongue Every 5 MINutes as needed. [place] 3 1000 MG capsule Take 2 capsules by mouth daily. Pantoprazole [address] tablet DR Take 1 tablet by mouth daily. Vitamin E 200 units capsule Take 1 capsule by mouth daily. Clopidogrel 75 MG tablet Take 1 tablet by mouth daily. (Patient not taking: Reported on 09/20/2024) Pembrolizumab (KEYTRUDA IV) by Intravenous route. Requested Prescriptions No prescriptions requested or ordered in this encounter Review of Systems Constitutional: (+) mild fatigue. Negative for fever. HENT: Negative for congestion, sore throat, and sinus pain. Eyes: Negative for blurred vision or double vision. Cardiovascular: (+) lightheadedness with rapid position changes. Negative for chest pain, syncope, palpitations and leg swelling. Respiratory: (+) LUCIO. (+) mild dry cough productive. Gastrointestinal: Negative for nausea, vomiting, diarrhea, constipation or trouble swallowing. Genitourinary: Negative for bladder incontinence, dysuria, and frequency. Musculoskeletal: (+) physical deconditioning in his BLE's. Negative for myalgias, joint pain, and falls. Neurological: (+) chronic numbness/tingling to bottom of feet with associated imbalance (L>R) --> he has a walking stick that he uses on occasion. Negative for COBOS's, tremors, and focal weakness. Psychiatric: Negative for depression/anxiety. Skin: No rashes or lesions. Hematologic: (+) easy bruising. See Toxicity Assessment Sheet for more ROS. Physical Exam Vitals: 09/20/24 0931 BP: 148/70 Pulse: 70 Resp: 16 Temp: 97.7 degrees F (36.5 degrees C) TempSrc: Oral SpO2: 94% Weight: 91.6 kg (201 lb 14.4 oz) Height: 1.727 m (5' 8) Wt Readings from Last 3 Encounters: 09/20/24 91.6 kg (201 lb 14.4 oz) 08/11/24 91 kg (200 lb 11.2 oz) 06/16/24 91.5 kg (201 lb 12.8 oz) ECOG performance status: 1 General: A&O x 3. No acute distress. Eyes: PERRLA, EOMI, anicteric sclera, conjunctiva & lids normal. Neck: Supple, no rigidity, no JVD, no lymphadenopathy. Oropharynx: No erythema or lesions noted. Moist and pink mucus membranes. Respiratory: Clear to auscultation bilaterally with referred breath sounds to RUL. No crackles/rhonchi/wheezes. Cardiovascular: Regular rate and rhythm. No murmurs, rubs, clicks, or gallops. Abdomen: BS's X4 quadrants. Soft, non-tender, non-distended. Neurological: No focal deficits. CN II-XII grossly intact. Extremities: No peripheral edema. Skin: Skin color, turgor, and temperature normal. No rashes or lesions. Lymph Nodes: No cervical or supraclavicular adenopathy. Psychosocial: Appropriate to situation. Labs and Studies Labs reviewed CBC Recent Labs 09/20/24 0912 WBC 7.32 HGB 15.4 PLATELET 203 CHEMISTRIES Recent Labs 09/20/24 0912 SODIUM 137 POTASSIUM 4.1 CHLORIDE 103 BUN 11 CREATSERUM 1.14 CALCIUM 9.5 CO2 27 GLUCOSE 127* LFTS Recent Labs 09/20/24 0912 BILITOTAL 0.9 AST 14 ALT 15 ALKPHOS 67 ALBUMIN 4.4 Lab Results Component Value Date TSH 2.764 09/20/2024 T4FREE 1.39 09/20/2024 Pathology 09/14/24 Bronchoscopy Assessment and Plan Stage IIB SCC: Pt presents for C14 of adjuvant Pembrolizumab. His recent bronchoscopy was negative for malignancy to the new 6mm RLL lung nodule that was identified on chest CT last month. As such, we will continue to follow for now. This will be his last dose of immunotherapy - we'll plan to see him back in 6 weeks with a restaging chest CT. CAD: S/p LHC and stent placement locally (most recently in September 2023). Continue follow up with local provider. Anxiety/Insomnia: Pt on Mirtazapine at bedtime. He was also referred to [facility] previously, but no showed to the scheduled visit on 11/26/23 (and it has not yet been rescheduled). Chronic BLE Neuropathy: Improved with outpatient PT services, which he completed in the Fall of 2023. Pt seen independently of Dr. Tobias. * Eloina Garcia RN - 09/20/2024 9:20 AM EST Clinic to Infusion Handoff Report S: Petar Penny is coming from Exam to Infusion for cycle 14 pembro . B: Clinic Nurse (Eloina Garcia, TONY) reviewed the following: Allergies Reviewed: yes Medications Reviewed: yes Is patient accessed: Yes, PIV Verified the following are signed/documented prior to patient discharge from clinic: Chemotherapy/Supportive/Therapy Plans yes Toxicity Assessment completed: ECOG yes Add on Products: No Research Patient: No A: Reviewed patient assessment and outstanding items. Labs within treatment parameters yes If no, MD/SHARA notified of labs outside treatment parameters N/A Vital Signs within treatment parameters yes OK to Treat (if labs/vitals outside of parameters) N/A Report called to production zone leader if acute changes No Fall Risk? no R: Petar Penny has his After Visit Summary (AVS), completed his check out, and discharged to the infusion unit. For questions please call: Eloina Garcia RN at [phone] documented in this encounterTriHealth [facility]02-24-2025 Instructions* Patient Instructions* Eloina Garcia RN - 09/20/2024 9:20 AM EST DECLAN Penn, RN, OCN was your primary nurse for today's visit. IMPORTANT: If you are having symptoms, side effects, or problems, please call our main number at [phone]. You will speak with an Oncology Journeyman Sheet Metal Worker, who will take a message and forward it to ouriage Nurse. The Triage Nurse will return your call within 24 hours, assess your problem, consult with your medical team, and give direction on what should be done. We are not able to accommodate walk-in appointments in order to keep our clinic running in a more timely manner. This is to provide the best possible care we can to all our patients. If it is an emergency you will need to go to your local ER. Ask them to fax your records to us so that we can update our team, fax number [phone]. Results: Please be aware that most lab and imaging results are being released to [facility]. These can sometimes be confusing or concerning to read. Please know that your care team will review/discuss resultswith you at your follow up appointment. Any questions or concerns can be addressed at that time. Appointments: We will do our best to schedule your infusion appointments after your clinic (MD or nurse practitioner) visit. On the days you do not have a clinic appointment, your infusion appointments will be scheduled prior to 9AM or after 2pm. Mid-day appointments are reserved for patients who need to be seen in the clinic. Thank you for understanding. As a multidisciplinary team, you may be seen by a medical oncology fellow, resident, or student, inaddition to your provider (Doctor, Nurse practitioner, or Physician Club Former) during your clinic visit. Please note there is a minimum two week turn around for all paperwork such as disability, FMLA, etc..please submit paperwork to our office as soon as possible. If you have MyChart, you will be receiving an Oncology Distress Screening. This screening is sent to all [facility] patients which includes patients with cancer diagnoses and also non-cancer diagnoses to assess any concerns that you may have. This questionnaire is optional. Once the screening questions are completed, we will review your answers in a timely manner. If you have an urgent matter, please contact your provider right away. Thank you If you receive a randomized patient satisfaction survey in the mail we would appreciate your feedback! We look forward to your positive comments as well as areas to improve. We are honored to be a part of your care team. Thank you. documented in this encounterTriHealth [facility]02-18-2025 NoteIMPRESSION: Progressive bibasilar atelectasis and adjacent new patchy airspace opacities. RADIOLOGY 09-14-2024 Nurse Note* Nursing Notes - Aneta Reynaga RCP - 09/14/2024 11:27 AM EST Anesthesia at bedside for airway, monitoring and sedation. 1135 Intubated without incident, 1137 All staff wearing lead. Flouro placement checked. 1143 ION registration.1147 ION guidance. [address] spin [address] spin[address] FNA collected from RLL nodule. Brushing collected from RLL nodule. TBBX collected from RLL nodule. BAL performed in RLL: 20 mL in/ 3 mL out. Switched to EBUS bronchoscope. EBUS bronchoscope used to visualize levels. EBUS balloon found intact then removed post procedure. [facility]02-18-[facility] Miscellaneous Notes* Nursing Notes - Aneta Reynaga RCP - 09/14/2024 11:27 AM EST Anesthesia at bedside for airway, monitoring and sedation. 1135 Intubated without incident, 1137 All staff wearing lead. Flouro placement checked. 1143 ION registration.1147 ION guidance. [address] spin [address] spin[address] FNA collected from RLL nodule. Brushing collected from RLL nodule. TBBX collected from RLL nodule. BAL performed in RLL: 20 mL in/ 3 mL out. Switched to EBUS bronchoscope. EBUS bronchoscope used to visualize levels. EBUS balloon found intact then removed post procedure. documented in this encounterOS[facility] History and physical note* Mateo Mascorro MD - 09/14/2024 11:15 AM EST Interventional Pulmonology Pre-operative H&P Procedure date: 09/14/24 Past Medical History He has a past medical history of AAA (abdominal aortic aneurysm), Asthma (11/2023), AV block, CAD (coronary artery disease), Cardiomegaly, Congestive heart failure, COPD (chronic obstructive pulmonary disease), COVID-19, Essential hypertension, benign, Hyperlipidemia, AR (myocardial infarction), VANDANA (obstructive sleep apnea), Pacemaker, RBBB, Seizure, Squamous cell carcinoma of lung, TIA (transient ischemic attack), and Vascular disease. He has no past medical history of Diabetes mellitus. Immunization History Administered Date(s) Administered COVID-19 monovalent vaccine, mRNA, Pfizer, 0.3 ML 08/31/2020, 09/28/2020, 05/05/2021 COVID-19 monovalent vaccine (Pfizer) 12yr +, 30mcg/0.3mL 11/01/2021 COVID-19 bivalent vaccine (Pfizer) 12yr +, 30mcg/0.3mL 05/07/2022 COVID-19 mRNA, (MODERNA) 12yr+ 50 mcg/0.5mL 05/15/2023 Past Surgical History has a past surgical history that includes pacemaker placement (12/2022); bronchoscopy flexible diagnostic (N/A, 04/28/2023); bronchoscopy flexible w/ ebus during bronch diagnostics/intevention for peripheral lesion add-on px (N/A, 04/28/2023); lobectomy lung robotic (Right, 05/28/2023); bronchoscopy flexible diagnostic (Right, 05/28/2023); and lymphadenectomy mediastinal & regional thoracoscopic add-on px (N/A, 05/28/2023). Allergies He is allergic to penicillins. Home meds reviewed has a current medication list which includes the following prescription(s): amlodipine, arnuity ellipta, aspirin, atorvastatin, clopidogrel, fluticasone, losartan, mirtazapine, omega 3, pantoprazole,pembrolizumab, vitamin e, acetaminophen, and nitroglycerin, and the following Facility-Administered Medications: aspirin, lidocaine hcl urethral/mucosal, and tetracaine-benzocaine. Review of Systems Constitutional: Denies fevers/chills, night sweats Ear, nose, throat: Denies sore throat, rhinorrhea Eyes: Denies vision changes CV: Denies chest pain, palpitations Pulm: shortness of breath Hem: No history of abnormal bleeding or excess bleeding after a procedure GI: Denies abdominal pain, nausea/vomiting, diarrhea, constipation, BRBPR : Denies dysuria MSK: Negative Neuro: No numbness/tingling, weakness Skin: No rash Pre-procedure assessment and physical examination BP 146/74 (BP Location: Right arm, BP Position: Sitting) Pulse 60 Temp 97.3 F (36.3 C) (Temporal) Resp 19 SpO2 94% Smoking Status Former General appearance: NAD Mouth: MMM Eyes/Pupils: anicteric Chest: CTAB CV: RRR, no r/g/m Abdomen: soft, nontender, nondistended, normoactive bowel sounds Extremities: No edema Skin: no rash Neurological: moves all extremities Indication for procedure / Assessment Lung nodule Treatment Plan Plan for Navigation bronchoscopy and tissue biopsy procedure today. Pt seen by me pre-procedure. [facility] Work Phone: [phone] History and physical note* Mateo Mascorro MD - 09/14/2024 11:15 AM EST Interventional Pulmonology Pre-operative H&P Procedure date: 09/14/24 Past Medical History He has a past medical history of AAA (abdominal aortic aneurysm), Asthma (11/2023), AV block, CAD (coronary artery disease), Cardiomegaly, Congestive heart failure, COPD (chronic obstructive pulmonary disease), COVID-19, Essential hypertension, benign, Hyperlipidemia, AR (myocardial infarction), VANDANA (obstructive sleep apnea), Pacemaker, RBBB, Seizure, Squamous cell carcinoma of lung, TIA (transient ischemic attack), and Vascular disease. He has no past medical history of Diabetes mellitus. Immunization History Administered Date(s) Administered COVID-19 monovalent vaccine, mRNA, Pfizer, 0.3 ML 08/31/2020, 09/28/2020, 05/05/2021 COVID-19 monovalent vaccine (Pfizer) 12yr +, 30mcg/0.3mL 11/01/2021 COVID-19 bivalent vaccine (Pfizer) 12yr +, 30mcg/0.3mL 05/07/2022 COVID-19 mRNA, (MODERNA) 12yr+ 50 mcg/0.5mL 05/15/2023 Past Surgical History has a past surgical history that includes pacemaker placement (12/2022); bronchoscopy flexible diagnostic (N/A, 04/28/2023); bronchoscopy flexible w/ ebus during bronch diagnostics/intevention for peripheral lesion add-on px (N/A, 04/28/2023); lobectomy lung robotic (Right, 05/28/2023); bronchoscopy flexible diagnostic (Right, 05/28/2023); and lymphadenectomy mediastinal & regional thoracoscopic add-on px (N/A, 05/28/2023). Allergies He is allergic to penicillins. Home meds reviewed has a current medication list which includes the following prescription(s): amlodipine, arnuity ellipta, aspirin, atorvastatin, clopidogrel, fluticasone, losartan, mirtazapine, omega 3, pantoprazole,pembrolizumab, vitamin e, acetaminophen, and nitroglycerin, and the following Facility-Administered Medications: aspirin, lidocaine hcl urethral/mucosal, and tetracaine-benzocaine. Review of Systems Constitutional: Denies fevers/chills, night sweats Ear, nose, throat: Denies sore throat, rhinorrhea Eyes: Denies vision changes CV: Denies chest pain, palpitations Pulm: shortness of breath Hem: No history of abnormal bleeding or excess bleeding after a procedure GI: Denies abdominal pain, nausea/vomiting, diarrhea, constipation, BRBPR : Denies dysuria MSK: Negative Neuro: No numbness/tingling, weakness Skin: No rash Pre-procedure assessment and physical examination BP 146/74 (BP Location: Right arm, BP Position: Sitting) Pulse 60 Temp 97.3 F (36.3 C) (Temporal) Resp 19 SpO2 94% Smoking Status Former General appearance: NAD Mouth: MMM Eyes/Pupils: anicteric Chest: CTAB CV: RRR, no r/g/m Abdomen: soft, nontender, nondistended, normoactive bowel sounds Extremities: No edema Skin: no rash Neurological: moves all extremities Indication for procedure / Assessment Lung nodule Treatment Plan Plan for Navigation bronchoscopy and tissue biopsy procedure today. Pt seen by fl pre-procedure. [facility] History of Present illness Narrative* Kimmy Harvey RN - 08/11/2024 10:30 AM EST Pt seen in chemo clinic. Labs and toxicity screen reviewed. Report from Elly JIMENEZ Clear for treatment. Patient/family needs and learning style identified. * Kaitlin Bonilla RN - 08/11/2024 10:30 AM EST Petar Penny received pembrolizumab today - completed Cycle 13 Day 1. No signs or symptoms of a reaction noted. Patient ambulated to lobby with steady gait accompanied by family, A&OX4, denies any questions or needs at this time. Patient left at 1230. AVS given to patient. Patient has next appointment dates and times - dates verified. [facility] History of Present illness Narrative* Kathryn Tobias MD - 08/11/2024 9:20 AM EST Images from the original note were not included. Chief Complaint Patient presents with Lung Cancer Follow-up Medication Refill remeron Date of Visit: 08/11/2024 Diagnosis: Stage IIB (pT3N0) SCC History of Present Illness Mr. Petar Penny is a 79 y.o. male, former smoker, PMH significant for CAD, HTN, HLD now with stage IIB ([id number]), PD-L1 100%, keratinizing squamous cell carcinoma (intra-lobar mets) s/p robotic assisted right upper lobe lobectomy 05/28/23. Given high risk features (poorly differentiated, lymphovascular invasion) and high PD-L1, it was recommended he start adjuvant therapy with pembrolizumab per the PEARLS/Keynote-091 study. He began this treatment on 10/01/23. Interval History Mr. Penny presents today for evaluation prior to C13 of keytruda. He reports some SOB and a new itchy rash on his back. His appetite is good and his weight has increased since his last visit. Otherwise, he is doing well overall. 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 Right upper lung mass, CT-guided core biopsy: Squamous cell carcinoma 04/04/2023 Pathology Adrenal Biopsy [place]: 04/28/2023 Procedure EBUS with FNA: level 7 was negative (not adequate) 11R was negative and adequate 4R was negative (not adequate) 05/28/2023 Surgery Robotic assisted thoracoscopic right upper lobe lobectomy 05/28/2023 - Cancer Staged Staging form: Lung, AJCC 8th Edition - Pathologic stage from 05/28/2023: Stage IIB (pT3, pN0, cM0) 10/01/2023 - Immunotherapy Adjuvant pembrolizumab Past History Past medical, surgical, family, and social histories have been reviewed and updated with the patient today and are located elsewhere in the medical record. Current Outpatient Medications Medication Sig Acetaminophen 325 MG tablet Take 2 tablets by mouth every 4 hours as needed for Mild Pain. amLODIPine 10 MG tablet Take 1 tablet by mouth daily. Arnuity Ellipta 200 MCG/ACT Aerosol Powder, breath activated Aspirin [address] tablet Take 1 tablet by mouth daily. Atorvastatin 40 MG tablet Take 1 tablet by mouth at bedtime. Clopidogrel 75 MG tablet Take 1 tablet by mouth daily. fluticasone 50 MCG/ACT Suspension nasal spray 2 sprays by Nasal route daily. Losartan 50 MG tablet Take 0.5 tablets by mouth daily. Mirtazapine 15 MG tablet TAKE 1 & 1/2 (ONE & ONE-HALF) TABLETS BY MOUTH IN THE EVENING nitroGLYCERIN 0.[address] 1 tablet under tongue Every 5 MINutes as needed. [place] 3 1000 MG capsule Take 2 capsules by mouth daily. Pantoprazole [address] tablet DR Take 1 tablet by mouth daily. Pembrolizumab (KEYTRUDA IV) by Intravenous route. Vitamin E 200 units capsule Take 1 capsule by mouth daily. Requested Prescriptions No prescriptions requested or ordered in this encounter Review of Systems Constitutional: Negative for fever or fatigue. HENT: Negative for congestion, sore throat, and sinus pain. Eyes: Negative for blurred vision or double vision. Cardiovascular: (+) lightheadedness with rapid position changes. Negative for chest pain, syncope, palpitations and leg swelling. Respiratory: (+) LUCIO. (+) mild dry cough productive. Gastrointestinal: Negative for nausea, vomiting, diarrhea, constipation or trouble swallowing. Genitourinary: Negative for bladder incontinence, dysuria, and frequency. Musculoskeletal: (+) physical deconditioning in his BLE's --> improved with PT services (which he graduated from on 06/11/24). Negative for myalgias, joint pain, and falls. Neurological: (+) chronic numbness/tingling to bottom of feet with associated imbalance (L>R) --> improving with PT services. Negative for COBOS's, tremors, and focal weakness. Psychiatric: Negative for depression/anxiety. Skin: Rash on back. Hematologic: (+) easy bruising. See Toxicity Assessment Sheet for more ROS. Physical Exam Vitals: 08/11/24 1012 BP: 121/63 Pulse: 79 Resp: 18 Temp: 97.8 degrees F (36.6 degrees C) TempSrc: Oral SpO2: 94% Weight: 91 kg (200 lb 11.2 oz) Height: 1.727 m (5' 8) Wt Readings from Last 3 Encounters: 08/11/24 91 kg (200 lb 11.2 oz) 06/16/24 91.5 kg (201 lb 12.8 oz) 05/24/24 89.5 kg (197 lb 4.8 oz) ECOG performance status: 1 General: A&O x 3. No acute distress. Eyes: PERRLA, EOMI, anicteric sclera, conjunctiva & lids normal. Neck: Supple, no rigidity, no JVD, no lymphadenopathy. Oropharynx: No erythema or lesions noted. Moist and pink mucus membranes. Respiratory: Clear to auscultation bilaterally with referred breath sounds to RUL. No crackles/rhonchi/wheezes. Cardiovascular: Regular rate and rhythm. No murmurs, rubs, clicks, or gallops. Abdomen: BS's X4 quadrants. Soft, non-tender, non-distended. Neurological: No focal deficits. CN II-XII grossly intact. Extremities: No peripheral edema. Skin: Skin color, turgor, and temperature normal. Rash on back. Lymph Nodes: No cervical or supraclavicular adenopathy. Psychosocial: Appropriate to situation. Labs and Studies Labs reviewed CBC Recent Labs 08/11/24 1002 WBC 7.76 HGB 15.0 PLATELET 266 CHEMISTRIES Recent Labs 08/11/24 1002 SODIUM 136 POTASSIUM 3.9 CHLORIDE 103 BUN 8 CREATSERUM 1.05 CALCIUM 9.2 CO2 29 GLUCOSE 110 LFTS Recent Labs 08/11/24 1002 BILITOTAL 1.2 AST 16 ALT 16 ALKPHOS 70 ALBUMIN 4.5 Lab Results Component Value Date TSH 2.704 08/11/2024 T4FREE 1.46 08/11/2024 Imaging: CT CHEST WITH CONTRAST Result Date: 07/30/2024 EXAM: CT CHEST WITH CONTRAST COMPARISON: 04/21/24 CLINICAL INDICATIONS: lung cancer restaging - on active treatment TECHNIQUE: IV contrast enhanced axial CT images of the chest 5 mm with 1 mm contiguous high-resolution, coronal MIP and sagittal MPR series. FINDINGS: Prior right upper lobectomy. Development of a new solid lobulated right lower lobe superior segmental nodule on series 3 image 117 measuring 6 x 6 x 6 mm. Air bronchograms are present. This is highly suspect to represent a new primary lung malignancy, presumably an adenocarcinoma. The 2 left lower lobe subpleural nodules on series 3 images 189 and 181 are unchanged. Reticular opacities involving both lower lobes, right greater than left is unchanged. Small cystic regions involving the right lower lobe costophrenic angle are unchanged in size and appearance. No pleural effusions. Moderate emphysema. Right middle lobe atelectasis, unchanged. Heart size is normal without pericardial effusion. Coronary artery calcification and coronary stents. Old left ventricular inferior wall AR, unchanged. Pacemaker leads appear unchanged.There are no pathologically enlarged mediastinal, hilar or axillary lymph nodes. Unenhanced pulmonary artery is unremarkable. Moderate atherosclerotic disease involving the arch and descending aorta.Visualized upper abdomen demonstrates nonobstructive punctate renal calculi. Bilateral symmetric perinephric stranding is unchanged. Osseous structures do not demonstrate any destructive lesions. IMPRESSION: 1. Development of a new 6 x 6 x 6 mm lobulated solid nodule in the right lower lobe superior segment, highly suspect to represent a new primary lung malignancy/presumed adenocarcinoma. 2.No suspect adenopathy. Dante Garrett M.D. This report has been electronically signed and verified by the Radiologist whose name is printed above. This report contains privileged and confidential information and is intended solely for the use of the individual or entity to which it is addressed. Ifyou are not the intended recipient of this report, you are hereby notified that any copying, distribution, dissemination or action taken in relation to the contents of this report is strictly prohibited and may be unlawful. If you have received this report in error, please notify the sender immediately at [phone] and permanently delete the original report and destroy any copies or printouts. Assessment and Plan Stage IIB SCC: Pt presents for C13 of adjuvant Pembrolizumab. We previously transitioned to Q6 weekdosing. CT chest 07/29/24 reveals development of a new 6 x 6 x 6 mm lobulated nodule in the right lower lobe, highly suspicious for a new primary lung malignancy. We will present this at the tumor board to decide whether to monitor or precede with radiation as it may be too small to biopsy (will ask IR if biopsy is possible). RTC in 6 weeks to see MD, with labs prior and infusion after. Itchy rash: Located on the back. Keytruda SE. Recommended otc hydrocortisone cream on the area BID until resolved. CAD: S/p LHC and stent placement locally (most recently in September 2023). Continue follow up with local provider. Anxiety/Insomnia: I previously increased the patient's Mirtazapine in November 2023 to 22.5mg at bedtime. He was also referred to [facility] previously, but no showed to the scheduled visit on 11/26/23 (and it has not yet been rescheduled). Chronic BLE Neuropathy: Improved with outpatient PT services, which he previously completed. Orders Placed This Encounter AMB REFERRAL TO TUMOR BOARD Return in about 6 weeks (around 09/22/2024) for labs, infusion (MD bree. Documented by Maylin Colón, for Dr. Kathryn Tobias on 08/11/2024 at 11:10 AM. All medical record entries made by the [facility] were at my direction and personally dictated by me, Kathryn Tobias MD . I have reviewed and edited the chart and agree that the record accurately reflects my personal performance of the history, physical exam, assessment and plan. I have also personally directed, reviewed, and agree with the discharge instructions. Kathryn Tobias MD [facility] [employer] with [employer] (Thoracic Oncology/Geriatric Oncology) [facility] Clinic Pager: [phone] Email: [email or web address] documented in this encounterTri[facility] Instructions* Patient Instructions* Kathryn Tobias MD - 08/11/2024 9:20 AM EST Please get over the counter hydrocortisone 1% or 2% cream and put on the itchy or red areas twice aday until gone. Please call our office if you develop a temperature of 100.4 or greater or have any other urgent symptoms that need addressed. CONTACT NUMBERS Clinic phone: [phone] Clinic fax: [phone] MEDICAL RECORDS The Release of Information (WILLIE) area is staffed from 8:00 a.m. to 7:00 p.m. and is available for walk in requests from 8:00 a.m. to 4:30 p.m. [facility] is responsible for answering requests for copies of medical records from various requestors such as insurance companies, attorneys, hospitals and patients. Please note it can take up to 2 weeks to complete your request. [phone]; [phone] (fax). FINANCIAL CONCERNS Any questions regarding billing for services or insurance coverage concerns should be directed to our billing department at [phone]. DISABILITY FORMS This category includes any form (STD, LTD, FMLA, cancer insurance policy) requiring information to be completed by a physician or nurse practitioner. The forms should be given to the clinic nurse. There is no fee associated with this request but note it may take 2 weeks to complete. The forms cannot be completed during a clinic visit or within 24 hours of your request. It is important to place the patient s name, employee s name, patient s date, date disability begins and ends, and any required signatures. Ask our team about the suggested recovery time. [facility] citizenmade is a secure way to get access to your health records online. The medical information youwill have access to within the [employer] program is only selected portions of your entire chart, suchas basic laboratory results, summary medical history, visit history, and selected billing information. It will also allow you to communicate with your health care provider through email. To provide you with the best quality care available, we need to be able to discuss these results with you personally. If you are unable to obtain the results of a test that you can't find within the My Chart please feel free to call us and we will get back to you with that information. For non-emergent concerns, please send us a [employer] message but describe your issue fully. When sending a message to the provider, please know that these messages will be received and answered by [facility]. The nurse practitioner will consult your physician when needed. For questions or concerns regarding [employer] access or technical dificulties, please call [phone] or toll free at . documented in this encounterTri[facility]-20-[facility] History of Present illness Narrative* Cristina Cotton RN - 06/16/2024 3:00 PM EST Report per TONY Sanabria in Dr. Martinez clinic. Patient seen and assessed by MD/CAPTAIN WAITER today. Toxicity assessment, allergies and meds reviewed. Labs stable and cleared for treatment. Petar Penny received treatment today - completed Cycle 12 Day 1 Pembro. Tolerated well. IV access checked before, during, and after for patency. To return 08/04. Next visit scheduled and is aware of appointments. AVS reviewed. Discharged ambulatory per self to lobby in stable condition. Instructed to call office if any questions or concerns prior to return visit. Verbalizes understanding. [facility] Instructions* Patient Instructions* Cristina Cotton RN - 06/16/2024 3:00 PM EST APPOINTMENTS We will do our best to schedule your infusion appointments after your clinic (MD or nurse practitioner) visit. On the days you do not have a clinic appointment, your infusion appointments will be scheduled prior to 9 AM or after 3 PM. Mid-day appointments are reserved for patients who need to be seen in the clinic. Thank you for your understanding. When to Call the Office Please call Dr Tobias's office @ [phone] to speak to a nurse regarding any symptoms or questions about your medications. This number is available 17/02. After business hours you may use the samephone number for concerns. You will then be connected with a Kassie nurse in our clinical call center. Symptoms or events you should call your doctor's office about include: Balance/weakness - changes in your walking such as falling, tripping, losing your balance Constipation - no bowel movement in three days Dehydration - dizzy, lightheaded, or weak Diarrhea - watery bowel movements more than four times a day over your normal amount Edema (Swelling) - any swelling in your feet, ankles, calves and arms especially if you notice any pain, redness, or warmth at the area; any abdominal swelling that affects your breathing Fatigue/weakness - unable to get out of bed or leave the house because you are too tired Fall - any time you fall or almost fall Fevers - any fever 100.5 or more with or without symptoms (do not take Tylenol, aspirin, Ibuprofen,or Aleve before you call the office!) Infection - fever, burning when you urinate, wheezing, cough with or without phlegm, or sore throat IV site - swelling, warmth, redness, hardened area near the old IV site Mouth sores - any sores that make it painful for you to eat; any white patches in your mouth Nausea - not controlled with your nausea medications - if you have more than one prescription for nausea, make sure you have tried them all before calling the office (sometimes one medicine will not work well and you need to take a different one) Neuropathy (numbness or tingling in fingers/toes/feet) - pain or numbness affecting your daily life; tripping when you walk because you cannot feel your feet; dropping things because you cannot feel your fingertips Pain - not controlled by your current pain medications Rash - skin changes anywhere on your body Shortness of breath/problems breathing - any changes in your breathing or chest pain - CALL 911 if this is a new symptom Unable to eat for more than 24 hours - when you have not been able to eat or drink in a 24 hour period Vomiting - more than once in a 24 hour time frame Survey Following your visit today, you may receive a survey via mail or email asking about your experience. We are always looking for ways to improve your visit. Please share your feedback and comments withus- We would love to hear from you! documented in this [facility]11-20-[facility] History of Present illness Narrative* Isaac Hodge, WEATHER TEACHER-COMMUNITY NURSE - 06/16/2024 1:30 PM EST Images from the original note were not included. Chief Complaint Patient presents with Follow-up Date of Visit: 06/16/2024 Diagnosis: Stage IIB (pT3N0) SCC History of Present Illness Mr. Petar Penny is a 79 y.o. male, former smoker, PMH significant for CAD, HTN, HLD now with stage IIB ([id number]), PD-L1 100%, keratinizing squamous cell carcinoma (intra-lobar mets) s/p robotic assisted right upper lobe lobectomy 05/28/23. Given high risk features (poorly differentiated, lymphovascular invasion) and high PD-L1, it was recommended he start adjuvant therapy with pembrolizumab per the PEARLS/Keynote-091 study. He began this treatment on 10/01/23. Interval History Since his last visit, the patient reports stable breathing (LUCIO with moderate activity). He has an ongoing dry cough, but this is not too bad he says. He denies fevers. His appetite is good and his weight is up 4lbs over the last few weeks. He is independent with ADL's. 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 Right upper lung mass, CT-guided core biopsy: Squamous cell carcinoma 04/04/2023 Pathology Adrenal Biopsy [place]: 04/28/2023 Procedure EBUS with FNA: level 7 was negative (not adequate) 11R was negative and adequate 4R was negative (not adequate) 05/28/2023 Surgery Robotic assisted thoracoscopic right upper lobe lobectomy 05/28/2023 - Cancer Staged Staging form: Lung, AJCC 8th Edition - Pathologic stage from 05/28/2023: Stage IIB (pT3, pN0, cM0) 10/01/2023 - Immunotherapy Adjuvant pembrolizumab Past History Past medical, surgical, family, and social histories have been reviewed and updated with the patient today and are located elsewhere in the medical record. Current Outpatient Medications Medication Sig Acetaminophen 325 MG tablet Take 2 tablets by mouth every 4 hours as needed for Mild Pain. amLODIPine 10 MG tablet Take 1 tablet by mouth daily. Arnuity Ellipta 200 MCG/ACT Aerosol Powder, breath activated Aspirin [address] tablet Take 1 tablet by mouth daily. Atorvastatin 40 MG tablet Take 1 tablet by mouth at bedtime. Clopidogrel 75 MG tablet Take 1 tablet by mouth daily. fluticasone 50 MCG/ACT Suspension nasal spray 2 sprays by Nasal route daily. Losartan 50 MG tablet Take 0.5 tablets by mouth daily. Mirtazapine 15 MG tablet TAKE 1 & 1/2 (ONE & ONE-HALF) TABLETS BY MOUTH IN THE EVENING [place] 3 1000 MG capsule Take 2 capsules by mouth daily. Pantoprazole [address] tablet DR Take 1 tablet by mouth daily. Vitamin E 200 units capsule Take 1 capsule by mouth daily. nitroGLYCERIN 0.[address] 1 tablet under tongue Every 5 MINutes as needed. (Patient not taking: Reported on 05/24/2024) Pembrolizumab (KEYTRUDA IV) by Intravenous route. Requested Prescriptions No prescriptions requested or ordered in this encounter Review of Systems Constitutional: Negative for fever or fatigue. HENT: Negative for congestion, sore throat, and sinus pain. Eyes: Negative for blurred vision or double vision. Cardiovascular: (+) lightheadedness with rapid position changes. Negative for chest pain, syncope, palpitations and leg swelling. Respiratory: (+) LUCIO. (+) mild dry cough productive. Gastrointestinal: Negative for nausea, vomiting, diarrhea, constipation or trouble swallowing. Genitourinary: Negative for bladder incontinence, dysuria, and frequency. Musculoskeletal: (+) physical deconditioning in his BLE's --> improved with PT services (which he graduated from on 06/11/24). Negative for myalgias, joint pain, and falls. Neurological: (+) chronic numbness/tingling to bottom of feet with associated imbalance (L>R) --> improving with PT services. Negative for COBOS's, tremors, and focal weakness. Psychiatric: Negative for depression/anxiety. Skin: No rashes or lesions. Hematologic: (+) easy bruising. See Toxicity Assessment Sheet for more ROS. Physical Exam Vitals: 06/16/24 1317 BP: 140/67 Pulse: 85 Resp: 18 Temp: 98.1 degrees F (36.7 degrees C) TempSrc: Oral SpO2: 93% Weight: 91.5 kg (201 lb 12.8 oz) Height: 1.74 m (5' 8.5) Wt Readings from Last 3 Encounters: 06/16/24 91.5 kg (201 lb 12.8 oz) 05/24/24 89.5 kg (197 lb 4.8 oz) 04/28/24 88.5 kg (195 lb) ECOG performance status: 1 General: A&O x 3. No acute distress. Eyes: PERRLA, EOMI, anicteric sclera, conjunctiva & lids normal. Neck: Supple, no rigidity, no JVD, no lymphadenopathy. Oropharynx: No erythema or lesions noted. Moist and pink mucus membranes. Respiratory: Clear to auscultation bilaterally with referred breath sounds to RUL. No crackles/rhonchi/wheezes. Cardiovascular: Regular rate and rhythm. No murmurs, rubs, clicks, or gallops. Abdomen: BS's X4 quadrants. Soft, non-tender, non-distended. Neurological: No focal deficits. CN II-XII grossly intact. Extremities: No peripheral edema. Skin: Skin color, turgor, and temperature normal. No rashes or lesions. Lymph Nodes: No cervical or supraclavicular adenopathy. Psychosocial: Appropriate to situation. Labs and Studies Labs reviewed CBC Recent Labs 06/16/24 1305 WBC 9.15 HGB 15.8 PLATELET 252 CHEMISTRIES Recent Labs 06/16/24 1305 SODIUM 137 POTASSIUM 4.2 CHLORIDE 105 BUN 12 CREATSERUM 1.18 CALCIUM 9.4 CO2 26 GLUCOSE 127* LFTS Recent Labs 06/16/24 1305 BILITOTAL 0.9 AST 18 ALT 16 ALKPHOS 62 ALBUMIN 4.4 Lab Results Component Value Date TSH 2.902 06/16/2024 T4FREE 1.32 06/16/2024 Assessment and Plan Stage IIB SCC: Pt presents for C12 of adjuvant Pembrolizumab. We will plan to transition to Q6 weekdosing today as previously discussed. He'll RTC in 6 weeks with a repeat chest CT. CAD: S/p LHC and stent placement locally (most recently in September 2023). Continue follow up with local provider. Anxiety/Insomnia: I increased the patient's Mirtazapine in November 2023 to 22.5mg at bedtime. He was also referred to [facility] previously, but no showed to the scheduled visit on 11/26/23 (and it has not yet been rescheduled). Chronic BLE Neuropathy: Improved with outpatient PT services, which he completed last week he tellsme. Pt seen independently of Dr. Tobias. [facility] History of Present illness Narrative* Jeff Perez RN - 05/24/2024 2:30 PM EDT 1500 Report received from Brigid RN;Pt seen in chemo clinic. Labs and toxicity screen reviewed. Clear for chemo. Patient/family needs and learning style identified. Pt arrives to [facility] 2 Chemo ambulatory with steady gait, A&OX3, speech clear & appropriate, accompanied by dtg. Pt states todays appt is for infusion. This RN introduced as the Nurse. Reviewed environment, call light, and plan of care for today, Pt verbalized understanding. 1610 Petar Penny received Keytruda today. No signs or symptoms of a reaction noted. AVS reviewed;confirmed understanding of follow up appts and discharge instructions; and to contact Dr. Tobias with issues or concerns prior to follow up appt. Patient to return for next treatment on Jun 16. Pt left ambulatory with steady gait, A&OX3ff, accompanied by dtg. Denies further needs. [facility] Inst[facility]* Patient Instructions* Jeff Perez RN - 05/24/2024 2:30 PM EDT Checkpoint Inhibitor Immunotherapy What is Checkpoint Inhibitor Immunotherapy and how does it work? Checkpoint Inhibitor Immunotherapy is a kind of cancer treatment that turns on your body's own immune system to kill cancer cells. Checkpoint inhibitors work by putting a brake on your immune system so that immune called T cells, can find and attack tumors. This type of treatment may be given aloneor with other cancer treatments. Your nurse or pharmacist will put a check next to the type of checkpoint inhibitor drug you will begiven: __ atezolizumab (Tecentriq) __ durvalumab (Imfinzi) __ nivolumab (Opdivo) __ avelumab (Bavencio) __ ipilimumab (Yervoy) __ pembrolizumab (Keytruda) __ cemiplimab (Libtayo) __ nivolumab-relatlimab (Opdualag) What should I tell my doctor before I start this treatment? Talk to your doctor about the following: If you have ever had chemotherapy or anti-cancer treatment and the names of the medicines you were given If you have ever had an autoimmune disease, transplant, or problems with your thyroid, kidney, bowel, liver or lungs If you are or plan to get . Your doctor will talk with you about control when you take this medicine. If you are If you have been told that you need to get a vaccination All of the medicines/pills that you take, including: Medicines ordered by any of your doctors (especially steroids such as prednisone or dexamethasone) Herbs Vitamins Zvxi-gqs-lfemlqg medicines Should I eat or drink before my treatment? It is best to eat a small meal before getting treatment. Drink 8 to 10 cups of non-caffeinated fluid each day to stay hydrated. However, if you have been told to limit fluids, check with your doctor about how much you can drink. How will my treatment be given? Immunotherapy treatment can be given in different ways. Sometimes medicines are given before your treatment starts to help reduce side effects. Immunotherapy is given directly into your blood stream through a tube (IV line) placed in your arm or chest. The treatment takes between 30 to 90 minutes and is given every 2 to 6 weeks. Your treatment dose may be fixed or may be decided based on your body weight. What are the side effects of this treatment? Every person responds differently to treatment. You may not have any or only some of these side effects. Some of the most common side effects with immunotherapy are: Infusion reaction - shortness of breath, dizziness, rash, chills, fever, and/or pain Flu-like symptoms - fatigue, fever, less appetite, and/or nausea Muscle or joint pain Diarrhea or constipation Rash or itching Swelling Infection Less common, but more serious side effects may include inflammation of the following parts of the body. The signs of inflammation have been listed by each. Lungs - shortness of breath, cough, chest pain Liver - severe stomach pain, nausea/vomiting, yellow skin or eyes Colon - severe diarrhea, blood in your stool Kidney - a decrease in your amount of urine Adrenal or thyroid gland - severe fatigue or headaches Pancreas - high blood sugars or diabetes Skin - severe rash Nervous system - numbness or tingling in your hands or feet, severe muscle weakness Eyes - changes in vision Ask your doctor, pharmacist or nurse for more information about the side effects that may be causedby the type of immunotherapy treatment you will be given. You may find it helpful to watch The [facility] Patient Education videos at [email or web address]/[email or web address] for tips on how to manage different treatment side effects. When should I call my doctor? You should call your doctor right away if you have any of the following problems @ [phone] Fever of 100.4 degrees Fahrenheit (38 degrees Celsius) or higher A fever can be life threatening if not treated. Your doctor may ask you to go to the hospital. Signs of infection such as a loose cough, sore throat, chills or burning when you urinate Diarrhea that happens more than 4 times in 24 hours Nausea makes you unable to eat or drink, even after you have taken your anti- nausea medicine You eyes or skin have a yellow color Severe fatigue that makes it hard to get out of bed Shortness of breath, chest pain or problems breathing Any other signs of the less common, but more serious side effects that can be caused by this treatment. SURVEY: Following your visit today, you may receive a survey via the mail or email asking about your experience. If at any time during your visit you feel your care is/was less than very good please let usknow immediately. We are always looking for ways to improve your visit. Our goal is to provide you with excellent service and care. Thank you! January 24, 2020. [facility] and [employer] [facility] [place]. This handout is for informational purposes only. Talk with your doctor or health care team if you have any questions about your care. For more health information, call the [facility] at [phone] or visit [email or web address] * Attachments The following attachments cannot be sent through Care Everywhere. * pembrolizumab (Macedonian) documented in this [facility]10-28-[facility] History of Present illness Narrative* Isaac Hodge, WEATHER TEACHER-COMMUNITY NURSE - 05/24/2024 1:30 PM EDT Images from the original note were not included. Chief Complaint Patient presents with Immunotherapy Here for D1 C11 of Pembrolizumab Date of Visit: 05/24/2024 Diagnosis: Stage IIB (pT3N0) SCC History of Present Illness Mr. Petar Penny is a 79 y.o. male, former smoker, PMH significant for CAD, HTN, HLD now with stage IIB ([id number]), PD-L1 100%, keratinizing squamous cell carcinoma (intra-lobar mets) s/p robotic assisted right upper lobe lobectomy 05/28/23. Given high risk features (poorly differentiated, lymphovascular invasion) and high PD-L1, it was recommended he start adjuvant therapy with pembrolizumab per the PEARLS/Keynote-091 study. He began this treatment on 10/01/23. Interval History Since his last visit, the patient reports stable breathing (LUCIO with moderate activity). He has an ongoing dry cough, but this is not too bad he says. He denies fevers. His appetite and weight are stable. He is independent with ADL's. Brief Oncology History Oncology History Squamous cell carcinoma of right lung 03/05/2023 Initial Diagnosis Outside Slides [id number] (03/05/23) A. Right upper lung mass, CT-guided core biopsy: Squamous cell carcinoma 04/04/2023 Pathology Adrenal Biopsy [place]: 04/28/2023 Procedure EBUS with FNA: level 7 was negative (not adequate) 11R was negative and adequate 4R was negative (not adequate) 05/28/2023 Surgery Robotic assisted thoracoscopic right upper lobe lobectomy 05/28/2023 - Cancer Staged Staging form: Lung, AJCC 8th Edition - Pathologic stage from 05/28/2023: Stage IIB (pT3, pN0, cM0) 10/01/2023 - Immunotherapy Adjuvant pembrolizumab Past History Past medical, surgical, family, and social histories have been reviewed and updated with the patient today and are located elsewhere in the medical record. Current Outpatient Medications Medication Sig Acetaminophen 325 MG tablet Take 2 tablets by mouth every 4 hours as needed for Mild Pain. amLODIPine 10 MG tablet Take 1 tablet by mouth daily. Arnuity Ellipta 200 MCG/ACT Aerosol Powder, breath activated Aspirin [address] tablet Take 1 tablet by mouth daily. Atorvastatin 40 MG tablet Take 1 tablet by mouth at bedtime. Clopidogrel 75 MG tablet Take 1 tablet by mouth daily. fluticasone 50 MCG/ACT Suspension nasal spray 2 sprays by Nasal route daily. Losartan 50 MG tablet Take 0.5 tablets by mouth daily. Mirtazapine 15 MG tablet TAKE 1 & 1/2 (ONE & ONE-HALF) TABLETS BY MOUTH IN THE EVENING [place] 3 1000 MG capsule Take 2 capsules by mouth daily. Pantoprazole [address] tablet DR Take 1 tablet by mouth daily. Vitamin E 200 units capsule Take 1 capsule by mouth daily. nitroGLYCERIN 0.[address] 1 tablet under tongue Every 5 MINutes as needed. (Patient not taking: Reported on 05/24/2024) Pembrolizumab (KEYTRUDA IV) by Intravenous route. traMADol 50 MG tablet Take 1 tablet by mouth every 4 hours as needed for Moderate Pain or Severe Pain for up to 7 days. (Patient not taking: Reported on 04/07/2024) Requested Prescriptions No prescriptions requested or ordered in this encounter Review of Systems Constitutional: Negative for fever or fatigue. HENT: Negative for congestion, sore throat and sinus pain. Eyes: Negative for blurred vision or double vision. Cardiovascular: (+) lightheadedness with rapid position changes. Negative for chest pain, syncope, palpitations and leg swelling. Respiratory: (+) LUCIO. (+) mild dry cough productive. Gastrointestinal: Negative for nausea, vomiting, diarrhea, constipation or trouble swallowing. Genitourinary: Negative for bladder incontinence, dysuria, and frequency. Musculoskeletal: (+) physical deconditioning in his BLE's --> improving with PT services. Negative for myalgias, joint pain, and falls. Neurological: (+) chronic numbness/tingling to bottom of feet with associated imbalance (L>R) --> improving with PT services. Negative for COBOS's, tremors, and focal weakness. Psychiatric: Negative for depression/anxiety. Skin: No rashes or lesions. Hematologic: (+) easy bruising. See Toxicity Assessment Sheet for more ROS. Physical Exam Vitals: 05/24/24 1320 BP: 142/63 Pulse: 68 Resp: 20 Temp: 97.9 degrees F (36.6 degrees C) TempSrc: Oral SpO2: 95% Weight: 89.5 kg (197 lb 4.8 oz) Wt Readings from Last 3 Encounters: 05/24/24 89.5 kg (197 lb 4.8 oz) 04/28/24 88.5 kg (195 lb) 04/07/24 88.4 kg (194 lb 14.4 oz) ECOG performance status: 1 General: A&O x 3. No acute distress. Eyes: PERRLA, EOMI, anicteric sclera, conjunctiva & lids normal. Neck: Supple, no rigidity, no JVD, no lymphadenopathy. Oropharynx: No erythema or lesions noted. Moist and pink mucus membranes. Respiratory: Clear to auscultation bilaterally with referred breath sounds to RUL. No crackles/rhonchi/wheezes. Cardiovascular: Regular rate and rhythm. No murmurs, rubs, clicks, or gallops. Abdomen: BS's X4 quadrants. Soft, non-tender, non-distended. Neurological: No focal deficits. CN II-XII grossly intact. Extremities: No peripheral edema. Skin: Skin color, turgor, and temperature normal. No rashes or lesions. Lymph Nodes: No cervical or supraclavicular adenopathy. Psychosocial: Appropriate to situation. Labs and Studies Labs reviewed CBC Recent Labs 05/24/24 1303 WBC 7.97 HGB 15.5 PLATELET 224 CHEMISTRIES Recent Labs 05/24/24 1303 SODIUM 137 POTASSIUM 4.6 CHLORIDE 103 BUN 12 CREATSERUM 1.10 CALCIUM 9.5 CO2 28 GLUCOSE 109* LFTS Recent Labs 05/24/24 1303 BILITOTAL 1.1 AST 17 ALT 16 ALKPHOS 60 ALBUMIN 4.4 Lab Results Component Value Date TSH 2.225 05/24/2024 T4FREE 1.51 05/24/2024 Assessment and Plan Stage IIB SCC: Pt presents for C11 of adjuvant Pembrolizumab. His PS and labwork are suitable for treatment today. He will RTC in 3 weeks for re-evaluation - at that time, we'll plan to transition him to Q6 week Pembrolizumab dosing. CAD: S/p LHC and stent placement locally (most recently in September 2023). Continue follow up with local provider. Anxiety, Insomnia, and Decreased Appetite: I increased the patient's Mirtazapine in November 2023 to 22.5mg at bedtime. He was also referred to [facility] previously, but no showed to the scheduled visit on 11/26/23 (and it has not yet been rescheduled). Chronic BLE Neuropathy: Improving with outpatient PT services. He is scheduled for another visit later this week. Pt seen independently of Dr. Tobias. [facility] Instructions* Patient Instructions* Eloina Garcia RN - 05/24/2024 1:30 PM EDT DECLAN Penn, RN, OCN was your primary nurse for today's visit. IMPORTANT: If you are having symptoms, side effects, or problems, please call our main number at [phone]. You will speak with an Oncology Journeyman Sheet Metal Worker, who will take a message and forward it to ourTriage Nurse. The Triage Nurse will return your call within 24 hours, assess your problem, consult with your medical team, and give direction on what should be done. We are not able to accommodate walk-in appointments in order to keep our clinic running in a more timely manner. This is to provide the best possible care we can to all our patients. If it is an emergency you will need to go to your local ER. Ask them to fax your records to us so that we can update our team, fax number [phone]. Results: Please be aware that most lab and imaging results are being [facility]. These can sometimes be confusing or concerning to read. Please know that your care team will review/discuss resultswith you at your follow up appointment. Any questions or concerns can be addressed at that time. Appointments: We will do our best to schedule your infusion appointments after your clinic (MD or nurse practitioner) visit. On the days you do not have a clinic appointment, your infusion appointments will be scheduled prior to 9AM or after 2pm. Mid-day appointments are reserved for patients who need to be seen in the clinic. Thank you for understanding. As a multidisciplinary team, you may be seen by a medical oncology fellow, resident, or student, inaddition to your provider (Doctor, Nurse practitioner, or Physician Club Former) during your clinic visit. Please note there is a minimum two week turn around for all paperwork such as disability, FMLA, etc..please submit paperwork to our office as soon as possible. If you have MyChart, you will be receiving an Oncology Distress Screening. This screening is sent to all [facility] patients which includes patients with cancer diagnoses and also non-cancer diagnoses to assess any concerns that you may have. This questionnaire is optional. Once the screening questions are completed, we will review your answers in a timely manner. If you have an urgent matter, please contact your provider right away. Thank you If you receive a randomized patient satisfaction survey in the mail we would appreciate your feedback! We look forward to your positive comments as well as areas to improve. We are honored to be a part of your care team. Thank you. documented in this [facility]10-02-2024 History of Present illness Narrative* Jeff Perez RN - 04/28/2024 11:00 AM EDT 1035 Report from Brigid RN;Pt seen in chemo clinic. Labs and toxicity screen reviewed. Clear for chemo. Patient/family needs and learning style identified. Pt arrives to [facility] Chemo infusion, A&OX3, speech clear & appropriate, accompanied by family. Pt states todays appt is for infusion. This RNintroduced as the Nurse. Reviewed environment, call light, and plan of care for today, Pt verbalized understanding. Pt discharged per Waleska JIMENEZ. Petar Penny received Keytruda today. No signs or symptoms of a reaction noted. AVS reviewed;confirmed understanding of follow up appts and discharge instructions; and to contact Dr. Tobias with issues or concerns prior to follow up appt. Patient to return for next treatment on May 24. Pt left ambulatory with steady gait, A&OX3. documented in this [facility]10-02-2024 Instructions* Patient Instructions* Jeff Perez RN - 04/28/2024 11:00 AM EDT Checkpoint Inhibitor Immunotherapy What is Checkpoint Inhibitor Immunotherapy and how does it work? Checkpoint Inhibitor Immunotherapy is a kind of cancer treatment that turns on your body's own immune system to kill cancer cells. Checkpoint inhibitors work by putting a brake on your immune system so that immune called T cells, can find and attack tumors. This type of treatment may be given aloneor with other cancer treatments. Your nurse or pharmacist will put a check next to the type of checkpoint inhibitor drug you will begiven: __ atezolizumab (Tecentriq) __ durvalumab (Imfinzi) __ nivolumab (Opdivo) __ avelumab (Bavencio) __ ipilimumab (Yervoy) __ pembrolizumab (Keytruda) __ cemiplimab (Libtayo) __ nivolumab-relatlimab (Opdualag) What should I tell my doctor before I start this treatment? Talk to your doctor about the following: If you have ever had chemotherapy or anti-cancer treatment and the names of the medicines you were given If you have ever had an autoimmune disease, transplant, or problems with your thyroid, kidney, bowel, liver or lungs If you are or plan to get . Your doctor will talk with you about control when you take this medicine. If you are If you have been told that you need to get a vaccination All of the medicines/pills that you take, including: Medicines ordered by any of your doctors (especially steroids such as prednisone or dexamethasone) Herbs Vitamins Weod-was-rrtketz medicines Should I eat or drink before my treatment? It is best to eat a small meal before getting treatment. Drink 8 to 10 cups of non-caffeinated fluid each day to stay hydrated. However, if you have been told to limit fluids, check with your doctor about how much you can drink. How will my treatment be given? Immunotherapy treatment can be given in different ways. Sometimes medicines are given before your treatment starts to help reduce side effects. Immunotherapy is given directly into your blood stream through a tube (IV line) placed in your arm or chest. The treatment takes between 30 to 90 minutes and is given every 2 to 6 weeks. Your treatment dose may be fixed or may be decided based on your body weight. What are the side effects of this treatment? Every person responds differently to treatment. You may not have any or only some of these side effects. Some of the most common side effects with immunotherapy are: Infusion reaction - shortness of breath, dizziness, rash, chills, fever, and/or pain Flu-like symptoms - fatigue, fever, less appetite, and/or nausea Muscle or joint pain Diarrhea or constipation Rash or itching Swelling Infection Less common, but more serious side effects may include inflammation of the following parts of the body. The signs of inflammation have been listed by each. Lungs - shortness of breath, cough, chest pain Liver - severe stomach pain, nausea/vomiting, yellow skin or eyes Colon - severe diarrhea, blood in your stool Kidney - a decrease in your amount of urine Adrenal or thyroid gland - severe fatigue or headaches Pancreas - high blood sugars or diabetes Skin - severe rash Nervous system - numbness or tingling in your hands or feet, severe muscle weakness Eyes - changes in vision Ask your doctor, pharmacist or nurse for more information about the side effects that may be causedby the type of immunotherapy treatment you will be given. You may find it helpful to watch [facility] Patient Education videos at [email or web address].[email or web address] [email or web address] for tips on how to manage different treatment side effects. When should I call my doctor? You should call your doctor right away if you have any of the following problems: Fever of 100.4 degrees Fahrenheit (38 degrees Celsius) or higher A fever can be life threatening if not treated. Your doctor may ask you to go to the hospital. Signs of infection such as a loose cough, sore throat, chills or burning when you urinate Diarrhea that happens more than 4 times in 24 hours Nausea makes you unable to eat or drink, even after you have taken your anti- nausea medicine You eyes or skin have a yellow color Severe fatigue that makes it hard to get out of bed Shortness of breath, chest pain or problems breathing Any other signs of the less common, but more serious side effects that can be caused by this treatment. SURVEY: Following your visit today, you may receive a survey via the mail or email asking about your experience. If at any time during your visit you feel your care is/was less than very good please let usknow immediately. We are always looking for ways to improve your visit. Our goal is to provide you with excellent service and care. Thank you! January 24, 2020. [facility] - Santosh Begum [facility] and [facility] [place]. This handout is for informational purposes only. Talk with your doctor or health care team if you have any questions about your care. For more health information, call the [facility] at [phone] or visit [email or web address] * Attachments The following attachments cannot be sent through Care Everywhere. * pembrolizumab (Macedonian) documented in this [facility]Tri[facility] History of Present illness Narrative* Kathryn Tobias MD - 04/28/2024 9:20 AM EDT Images from the original note were not included. Chief Complaint Patient presents with Follow-up Date of Visit: 04/28/2024 Diagnosis: Stage IIB (pT3N0) SCC History of Present Illness Mr. Petar Penny is a 79 y.o. male, former smoker, PMH significant for CAD, HTN, HLD now with stage IIB ([id number]), PD-L1 100%, keratinizing squamous cell carcinoma (intra-lobar mets) s/p robotic assisted right upper lobe lobectomy 05/28/23. Given high risk features (poorly differentiated, lymphovascular invasion) and high PD-L1, it was recommended he start adjuvant therapy with pembrolizumab per the PEARLS/Keynote -091 study. He began this treatment on 10/01/23. Interval History Since his last visit, the patient reports improved breathing (LUCIO with moderate activity). His previously reported cough has improved as well (as long as he avoids high flow air conditioning) he is also using his inhaler. He reports feeling overall active and has been utilizing his treadmill. He isindependent with ADL's. He denies diarrhea. Brief Oncology History Oncology History Squamous cell carcinoma of right lung 03/05/2023 Initial Diagnosis Outside Slides [id number] (03/05/23) A. Right upper lung mass, CT-guided core biopsy: Squamous cell carcinoma 04/04/2023 Pathology Adrenal Biopsy Falguni: 04/28/2023 Procedure EBUS with FNA: level 7 was negative (not adequate) 11R was negative and adequate 4R was negative (not adequate) 05/28/2023 Surgery Robotic assisted thoracoscopic right upper lobe lobectomy 05/28/2023 - Cancer Staged Staging form: Lung, AJCC 8th Edition - Pathologic stage from 05/28/2023: Stage IIB (pT3, pN0, cM0) 10/01/2023 - Immunotherapy Adjuvant pembrolizumab Past History Past medical, surgical, family, and social histories have been reviewed and updated with the patient today and are located elsewhere in the medical record. Current Outpatient Medications Medication Sig Acetaminophen 325 MG tablet Take 2 tablets by mouth every 4 hours as needed for Mild Pain. amLODIPine 10 MG tablet Take 1 tablet by mouth daily. Arnuity Ellipta 200 MCG/ACT Aerosol Powder, breath activated Aspirin [address] tablet Take 1 tablet by mouth daily. Atorvastatin 40 MG tablet Take 1 tablet by mouth at bedtime. Clopidogrel 75 MG tablet Take 1 tablet by mouth daily. fluticasone 50 MCG/ACT Suspension nasal spray 2 sprays by Nasal route daily. Losartan 50 MG tablet Take 0.5 tablets by mouth daily. Mirtazapine 15 MG tablet TAKE 1 & 1/2 (ONE & ONE-HALF) TABLETS BY MOUTH IN THE EVENING nitroGLYCERIN 0.[address] 1 tablet under tongue Every 5 MINutes as needed. [place] 3 1000 MG capsule Take 2 capsules by mouth daily. Pantoprazole [address] tablet DR Take 1 tablet by mouth daily. Vitamin E 200 units capsule Take 1 capsule by mouth daily. Meclizine 25 MG tablet Take 1 tablet by mouth 3 (three) times a day. (Patient not taking: Reported on 04/07/2024) Pembrolizumab (KEYTRUDA IV) by Intravenous route. traMADol 50 MG tablet Take 1 tablet by mouth every 4 hours as needed for Moderate Pain or Severe Pain for up to 7 days. (Patient not taking: Reported on 04/07/2024) Requested Prescriptions No prescriptions requested or ordered in this encounter Review of Systems Constitutional: (+) weight gain. Negative for fever or fatigue. HENT: Negative for congestion, sore throat and sinus pain. Eyes: Negative for blurred vision or double vision. Cardiovascular: (+) lightheadedness with rapid position changes. Negative for chest pain, syncope, palpitations and leg swelling. Respiratory: (+) LUCIO. (+) mild cough productive of clear phlegm --> improved. Gastrointestinal: Negative for nausea, vomiting, diarrhea, constipation or trouble swallowing. Genitourinary: Negative for bladder incontinence, dysuria, and frequency. Musculoskeletal: (+) physical deconditioning in his BLE's. Negative for myalgias, joint pain and falls. Neurological: (+) chronic numbness/tingling to bottom of feet with associated imbalance (L>R) --> worsening (he has a cane, but doesn't feel that he needs it). Negative for COBOS's, tremors, and focal weakness. Psychiatric: Negative for depression/anxiety. Skin: No rashes or lesions. Hematologic: (+) easy bruising. See Toxicity Assessment Sheet for more ROS. Physical Exam Vitals: 04/28/24 0938 BP: 150/83 Pulse: 71 Resp: 18 Temp: 97.7 degrees F (36.5 degrees C) TempSrc: Oral SpO2: 96% Weight: 88.5 kg (195 lb) Height: 1.74 m (5' 8.5) Wt Readings from Last 3 Encounters: 04/28/24 88.5 kg (195 lb) 04/07/24 88.4 kg (194 lb 14.4 oz) 03/17/24 85.7 kg (188 lb 14.4 oz) ECOG performance status: 1 General: A&O x 3. No acute distress. Eyes: PERRLA, EOMI, anicteric sclera, conjunctiva & lids normal. Neck: Supple, no rigidity, no JVD, no lymphadenopathy. Oropharynx: No erythema or lesions noted. Moist and pink mucus membranes. Respiratory: Clear to auscultation bilaterally with referred breath sounds to RUL. No crackles/rhonchi/wheezes. Cardiovascular: Regular rate and rhythm. No murmurs, rubs, clicks, or gallops. Abdomen: BS's X4 quadrants. Soft, non-tender, non-distended. Neurological: No focal deficits. CN II-XII grossly intact. Extremities: No peripheral edema. Skin: Skin color, turgor, and temperature normal. No rashes or lesions. Lymph Nodes: No cervical or supraclavicular adenopathy. Psychosocial: Appropriate to situation. Labs and Studies Labs have been reviewed Imaging: Restaging scans are grossly stable CT CHEST WITH CONTRAST Addendum Date: 04/21/2024 ADDENDUM #1 EXAM: CT CHEST WITH CONTRAST COMPARISON: 03/10/2024 CLINICAL INDICATIONS: Lung cancer restaging - on active treatment TECHNIQUE: IV contrast enhanced axial CT images of the chest 5 mm with1 mm contiguous high-resolution, coronal MIP and sagittal MPR series. FINDINGS: Lungs and Pleura: Status post right upper lobectomy. Stable subpleural nodules in the left lower lobe measuring 4 x 3 mm (3-183) and in the left upper lobe measuring 3 x 3 mm (3- 291). No new or enlarging pulmonary nodules. Moderate emphysema. Stable subpleural reticular opacities in the bilateral lower lobes, right greater than left, suggesting mild fibrotic changes. Interval resolution of patchy groundglass opacities in the anterior left upper lobe. No consolidation. Continued slight interval decrease in trace pleural fluid.. Tracheobronchial system: No abnormality. Mediastinum/Leni: No mediastinal or hilar lymp hadenopathy. Axilla and Supraclavicular Region: No axillary or supraclavicular lymphadenopathy. Cardiovascular: Heart size is within normal limits. No pericardial effusion. Moderate atherosclerotic calcification of the thoracic aorta. The thoracic aorta, aortic arch vessels, and pulmonary arteries are normal in caliber. Extensive multivessel coronary artery calcification. 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 Upper Abdomen: Punctate nonobstructing stone in the right kidney. Extensive atherosclerotic calcification of the visualized portion ofthe abdominal aorta. Bones and Soft Tissue: Multilevel degenerative changes. No acute osseous findings. No suspicious lytic or blastic osseous lesions. ADDENDUM: Rebekah Newell M.D. This report has been electronically signed and verified by the Radiologist whose name is printed above. / end of section Result Date: 04/21/2024 ORIGINAL REPORT EXAM: CT CHEST WITH CONTRAST COMPARISON: 03/10/2024 CLINICAL INDICATIONS: Lung cancer restaging - on active treatment TECHNIQUE: IV contrast enhanced axial CT images of the chest 5 mm with 1 mm contiguous high-resolution, coronal MIP and sagittal MPR series. FINDINGS: Lungs and Pleura: Status post right upper lobectomy. Stable subpleural nodules in the left lower lobe measuring 4 x3 mm (3-183) and in the left upper lobe measuring 3 x 3 mm (3-291). No new or enlarging pulmonary nodules. Moderate emphysema. Stable subpleural reticular opacities in the bilateral lower lobes, right greater than left, suggesting mild fibrotic changes. Interval resolution of patchy groundglass opac ities in the anterior left upper lobe. No consolidation. No pleural fluid. Tracheobronchial system:No abnormality. Mediastinum/Leni: No mediastinal or hilar lymphadenopathy. Axilla and Supraclavicular Region: No axillary or supraclavicular lymphadenopathy. Cardiovascular: Heart size is within normal limits. No pericardial effusion. Moderate atherosclerotic calcification of the thoracic aorta. The thoracic aorta, aortic arch vessels, and pulmonary arteries are normal in caliber. Extensive multivessel coronary artery calcification. 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 Upper Abdomen: Punctate nonobstructing stone in the right kidney. Extensive atherosclerotic calcification of the visualized portion of the abdominal aorta. Bones and Soft Tissue: Multilevel degenerative changes. No acute osseous findings. No suspicious lytic or blastic osseous lesions. IMPRESSION: 1. Status post right upper lobectomy. Stable subcentimeter subpleural nodules in the left lung. No new or enlarging pulmonary nodules. 2. Interval resolution of patchy groundglass opacities in the left upper lobe. No new consolidation. 3. Continued slight interval decrease in trace pleural fluid.. Rebekah Newell M.D. This report has been electronically signed and verified by the Radiologist whose name is printed above. This report contains privileged and confidential information and is intended solely for the use of the individual or entity to which it is addressed. If you are not theintended recipient of this report, you are hereby notified that any copying, distribution, dissemination or action taken in relation to the contents of this report is strictly prohibited and may be unlawful. If you have received this report in error, please notify the sender immediately at [phone] and permanently delete the original report and destroy any copies or printouts. IMPRESSION: 1. Statuspost right upper lobectomy. Stable subcentimeter subpleural nodules in the left lung. No new or enlarging pulmonary nodules. 2. Interval resolution of patchy groundglass opacities in the left upper lobe. No new consolidation. Rebekah Newell M.D. This report has been electronically signed and verified by the Radiologist whose name is printed above. This report contains privileged and confidential information and is intended solely for the use of the individual or entity to which it is addressed. If you are not the intended recipient of this report, you are hereby notified that any copying, distribution, dissemination or action taken in relation to the contents of this report is strictly prohibited and may be unlawful. If you have received this report in error, please notify the sender immediately at [phone] and permanently delete the original report and destroy any copies or printouts. 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 His PS and labwork are suitable for treatment today. He will RTC in about 3 weeks for labs, SHARA and infusion of pembro. CAD: S/p LHC and stent placement locally (most recently in September 2023). Continue follow up with local provider. Anxiety, Insomnia, and Decreased Appetite: I increased the patient's Mirtazapine in November 2023 to 22.5mg at bedtime. He was also referred to [facility] previously, but no showed to the scheduled visit on 11/26/23 (and it has not yet been rescheduled). BLE Neuropathy: Previously worsened Etiology unclear, but he's dealt with this symptom for ~10 years he tells me. We spoke about a referral to our OT specialist (Tamiko Hdez), and he was interested in pursuing this - I previously placed the order in [facility] and communicated with Tamiko about this referral. Exercise: he is on the treadmill three times a week in addition to his other activities. No orders of the defined types were placed in this encounter. Return in about 26 days (around 05/24/2024) for labs, SHARA (Isaac), infusion pembro. Documented by Maylin Colón, for Dr. Kathryn Tobias on 04/28/2024 at 12:11 PM. All medical record entries made by the Eldon were at my direction and personally dictated by me, Kathryn Tobias MD . I have reviewed and edited the chart and agree that the record accurately reflects my personal performance of the history, physical exam, assessment and plan. I have also personally directed, reviewed, and agree with the discharge instructions. Kathryn Tobias MD [employer] Gold Leaf Laborer with [employer] (Thoracic Oncology/Geriatric Oncology) [facility] Clinic Pager: [phone] Email: [email or web address] documented in this encounterTri[facility] Instructions* Patient Instructions* Eloina Garcia RN - 04/28/2024 9:20 AM EDT DECLAN Penn, RN, OCN was your primary nurse for today's visit. IMPORTANT: If you are having symptoms, side effects, or problems, please call our main number at [phone]. You will speak with an Oncology Journeyman Sheet Metal Worker, who will take a message and forward it to ourTriage Nurse. The Triage Nurse will return your call within 24 hours, assess your problem, consult with your medical team, and give direction on what should be done. We are not able to accommodate walk-in appointments in order to keep our clinic running in a more timely manner. This is to provide the best possible care we can to all our patients. If it is an emergency you will need to go to your local ER. Ask them to fax your records to us so that we can update our team, fax number [phone]. Results: Please be aware that most lab and imaging results are being released to [facility]. These can sometimes be confusing or concerning to read. Please know that your care team will review/discuss resultswith you at your follow up appointment. Any questions or concerns can be addressed at that time. Appointments: We will do our best to schedule your infusion appointments after your clinic (MD or nurse practitioner) visit. On the days you do not have a clinic appointment, your infusion appointments will be scheduled prior to 9AM or after 2pm. Mid-day appointments are reserved for patients who need to be seen in the clinic. Thank you for understanding. As a multidisciplinary team, you may be seen by a medical oncology fellow, resident, or student, inaddition to your provider (Doctor, Nurse practitioner, or Physician Club Former) during your clinic visit. Please note there is a minimum two week turn around for all paperwork such as disability, FMLA, etc..please submit paperwork to our office as soon as possible. If you have MyChart, you will be receiving an Oncology Distress Screening. This screening is sent to all [facility] patients which includes patients with cancer diagnoses and also non-cancer diagnoses to assess any concerns that you may have. This questionnaire is optional. Once the screening questions are completed, we will review your answers in a timely manner. If you have an urgent matter, please contact your provider right away. Thank you If you receive a randomized patient satisfaction survey in the mail we would appreciate your feedback! We look forward to your positive comments as well as areas to improve. We are honored to be a part of your care team. Thank you. [facility] History of Present illness Narrative* Kaitlin Bonilla RN - 04/07/2024 2:30 PM EDT Patient seen in thoracic oncology clinic. Report received from Shakeel Garcia RN. Labs and toxicity screen reviewed. Clear for treatment. Patient/family needs and learning style identified. Petar Penny received pembrolizumab today - completed Cycle 9 Day 1. No signs or symptoms of a reaction noted. Patient ambulated to lobby with steady gait accompanied by family, A&OX4, denies any questions or needs at this time. Patient left at 1610. AVS given to patient. Patient has next appointment dates and times - dates verified. documented in this [facility]OS[facility] Instructions* Patient Instructions* Kaitlin Bonilla RN - 04/07/2024 2:30 PM EDT APPOINTMENTS We will do our best to schedule your infusion appointments after your clinic (MD or nurse practitioner) visit. On the days you do not have a clinic appointment, your infusion appointments will be scheduled prior to 9 AM or after 3 PM. Mid-day appointments are reserved for patients who need to be seen in the clinic. Thank you for your understanding. When to Call the Office Please call Dr Tobias's office @ [phone] to speak to a nurse regarding any symptoms or questions about your medications. This number is available 17/02. After business hours you may use the samephone number for concerns. You will then be connected with a Kassie nurse in our clinical call center. Symptoms or events you should call your doctor's office about include: Balance/weakness - changes in your walking such as falling, tripping, losing your balance Constipation - no bowel movement in three days Dehydration - dizzy, lightheaded, or weak Diarrhea - watery bowel movements more than four times a day over your normal amount Edema (Swelling) - any swelling in your feet, ankles, calves and arms especially if you notice any pain, redness, or warmth at the area; any abdominal swelling that affects your breathing Fatigue/weakness - unable to get out of bed or leave the house because you are too tired Fall - any time you fall or almost fall Fevers - any fever 100.5 or more with or without symptoms (do not take Tylenol, aspirin, Ibuprofen,or Aleve before you call the office!) Infection - fever, burning when you urinate, wheezing, cough with or without phlegm, or sore throat IV site - swelling, warmth, redness, hardened area near the old IV site Mouth sores - any sores that make it painful for you to eat; any white patches in your mouth Nausea - not controlled with your nausea medications - if you have more than one prescription for nausea, make sure you have tried them all before calling the office (sometimes one medicine will not work well and you need to take a different one) Neuropathy (numbness or tingling in fingers/toes/feet) - pain or numbness affecting your daily life; tripping when you walk because you cannot feel your feet; dropping things because you cannot feel your fingertips Pain - not controlled by your current pain medications Rash - skin changes anywhere on your body Shortness of breath/problems breathing - any changes in your breathing or chest pain - CALL 911 if this is a new symptom Unable to eat for more than 24 hours - when you have not been able to eat or drink in a 24 hour period Vomiting - more than once in a 24 hour time frame Survey Following your visit today, you may receive a survey via mail or email asking about your experience. We are always looking for ways to improve your visit. Please share your feedback and comments withus- We would love to hear from you! documented in this [facility]09-11-[facility] History of Present illness Narrative* Isaac Hodge, WEATHER TEACHER-COMMUNITY NURSE - 04/07/2024 1:30 PM EDT Images from the original note were not included. Chief Complaint Patient presents with Follow-up Cough and dry skin Date of Visit: 04/07/2024 Diagnosis: Stage IIB (pT3N0) SCC History of Present Illness Mr. Petar Penny is a 79 y.o. male, former smoker, PMH significant for CAD, HTN, HLD now with stage IIB ([id number]), PD-L1 100%, keratinizing squamous cell carcinoma (intra-lobar mets) s/p robotic assisted right upper lobe lobectomy 05/28/23. Given high risk features (poorly differentiated, lymphovascular invasion) and high PD-L1, it was recommended he start adjuvant therapy with pembrolizumab per the PEARLS/Keynote -091 study. He began this treatment on 10/01/23. Interval History Since his last visit, the patient reports improved breathing (LUCIO with moderate activity). His previously reported cough has improved as well (as long as he avoids high flow air conditioning). His appetite is good and his weight is up 6lbs. He does not supplement his diet at this time. He is independent with ADL's. Brief Oncology History Oncology History Squamous cell carcinoma of right lung 03/05/2023 Initial Diagnosis Outside Slides [id number] (03/05/23) A. Right upper lung mass, CT-guided core biopsy: Squamous cell carcinoma 04/04/2023 Pathology Adrenal Biopsy Falguni: 04/28/2023 Procedure EBUS with FNA: level 7 was negative (not adequate) 11R was negative and adequate 4R was negative (not adequate) 05/28/2023 Surgery Robotic assisted thoracoscopic right upper lobe lobectomy 05/28/2023 - Cancer Staged Staging form: Lung, AJCC 8th Edition - Pathologic stage from 05/28/2023: Stage IIB (pT3, pN0, cM0) 10/01/2023 - Immunotherapy Adjuvant pembrolizumab Past History Past medical, surgical, family, and social histories have been reviewed and updated with the patient today and are located elsewhere in the medical record. Current Outpatient Medications Medication Sig Acetaminophen 325 MG tablet Take 2 tablets by mouth every 4 hours as needed for Mild Pain. amLODIPine 10 MG tablet Take 1 tablet by mouth daily. Arnuity Ellipta 200 MCG/ACT Aerosol Powder, breath activated Aspirin [address] tablet Take 1 tablet by mouth daily. Atorvastatin 40 MG tablet Take 1 tablet by mouth at bedtime. Clopidogrel 75 MG tablet Take 1 tablet by mouth daily. fluticasone 50 MCG/ACT Suspension nasal spray 2 sprays by Nasal route daily. Losartan 50 MG tablet Take 0.5 tablets by mouth daily. Mirtazapine 15 MG tablet TAKE 1 & 1/2 (ONE & ONE-HALF) TABLETS BY MOUTH IN THE EVENING nitroGLYCERIN 0.[address] 1 tablet under tongue Every 5 MINutes as needed. [place] 3 1000 MG capsule Take 2 capsules by mouth daily. Pantoprazole [address] tablet DR Take 1 tablet by mouth daily. Pembrolizumab (KEYTRUDA IV) by Intravenous route. Vitamin E 200 units capsule Take 1 capsule by mouth daily. Meclizine 25 MG tablet Take 1 tablet by mouth 3 (three) times a day. (Patient not taking: Reported on 04/07/2024) traMADol 50 MG tablet Take 1 tablet by mouth every 4 hours as needed for Moderate Pain or Severe Pain for up to 7 days. (Patient not taking: Reported on 04/07/2024) Requested Prescriptions No prescriptions requested or ordered in this encounter Review of Systems Constitutional: (+) weight gain. Negative for fever or fatigue. HENT: Negative for congestion, sore throat and sinus pain. Eyes: Negative for blurred vision or double vision. Cardiovascular: (+) lightheadedness with rapid position changes. Negative for chest pain, syncope, palpitations and leg swelling. Respiratory: (+) LUCIO. (+) mild cough productive of clear phlegm --> improved. Gastrointestinal: Negative for nausea, vomiting, diarrhea, constipation or trouble swallowing. Genitourinary: Negative for bladder incontinence, dysuria, and frequency. Musculoskeletal: (+) physical deconditioning in his BLE's. Negative for myalgias, joint pain and falls. Neurological: (+) chronic numbness/tingling to bottom of feet with associated imbalance (L>R) --> worsening (he has a cane, but doesn't feel that he needs it). Negative for COBOS's, tremors, and focal weakness. Psychiatric: Negative for depression/anxiety. Skin: No rashes or lesions. Hematologic: (+) easy bruising. See Toxicity Assessment Sheet for more ROS. Physical Exam Vitals: 04/07/24 1323 04/07/24 1346 BP: 162/70 138/63 Pulse: 63 65 Resp: 16 Temp: 97.3 degrees F (36.3 degrees C) TempSrc: Oral SpO2: 96% Weight: 88.4 kg (194 lb 14.4 oz) Height: 1.74 m (5' 8.5) Wt Readings from Last 3 Encounters: 04/07/24 88.4 kg (194 lb 14.4 oz) 03/17/24 85.7 kg (188 lb 14.4 oz) 02/25/24 87.9 kg (193 lb 11.2 oz) ECOG performance status: 1 General: A&O x 3. No acute distress. Eyes: PERRLA, EOMI, anicteric sclera, conjunctiva & lids normal. Neck: Supple, no rigidity, no JVD, no lymphadenopathy. Oropharynx: No erythema or lesions noted. Moist and pink mucus membranes. Respiratory: Clear to auscultation bilaterally with referred breath sounds to RUL. No crackles/rhonchi/wheezes. Cardiovascular: Regular rate and rhythm. No murmurs, rubs, clicks, or gallops. Abdomen: BS's X4 quadrants. Soft, non-tender, non-distended. Neurological: No focal deficits. CN II-XII grossly intact. Extremities: No peripheral edema. Skin: Skin color, turgor, and temperature normal. No rashes or lesions. Lymph Nodes: No cervical or supraclavicular adenopathy. Psychosocial: Appropriate to situation. 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 His PS and labwork are suitable for treatment today. He will RTC in 3 weeks with a restaging chest CT (I.e. we are doing a short interval follow up scan to evaluate a newly visualized groundglass density in the CAMILA). CAD: S/p LHC and stent placement locally (most recently in September 2023). Continue follow up with local provider. Anxiety, Insomnia, and Decreased Appetite: I increased the patient's Mirtazapine in November 2023 to 22.5mg at bedtime. He was also referred to [facility] previously, but no showed to the scheduled visit on 11/26/23 (and it has not yet been rescheduled). BLE Neuropathy: Worsening. Etiology unclear, but he's dealt with this symptom for ~10 years he tells me. We again spoke about a referral to our OT specialist (Tamiko Hdez), and he was interestedin pursuing this - I will place the order in IHIS and communicate with Tamiko about this referral. Pt seen independently of Dr. Tobias. [facility] History of Present illness Narrative* Isaac Hodge, WEATHER TEACHER-COMMUNITY NURSE - 04/07/2024 1:30 PM EDT Images from the original note were not included. Chief Complaint Patient presents with Follow-up Cough and dry skin Date of Visit: 04/07/2024 Diagnosis: Stage IIB (pT3N0) SCC History of Present Illness Mr. Petar Penny is a 79 y.o. male, former smoker, PMH significant for CAD, HTN, HLD now with stage IIB ([id number]), PD-L1 100%, keratinizing squamous cell carcinoma (intra-lobar mets) s/p robotic assisted right upper lobe lobectomy 05/28/23. Given high risk features (poorly differentiated, lymphovascular invasion) and high PD-L1, it was recommended he start adjuvant therapy with pembrolizumab per the PEARLS/Keynote -091 study. He began this treatment on 10/01/23. Interval History Since his last visit, the patient reports improved breathing (LUCIO with moderate activity). His previously reported cough has improved as well (as long as he avoids high flow air conditioning). His appetite is good and his weight is up 6lbs. He does not supplement his diet at this time. He is independent with ADL's. Brief Oncology History Oncology History Squamous cell carcinoma of right lung 03/05/2023 Initial Diagnosis Outside Slides [id number] (03/05/23) A. Right upper lung mass, CT-guided core biopsy: Squamous cell carcinoma 04/04/2023 Pathology Adrenal Biopsy [place]: 04/28/2023 Procedure EBUS with FNA: level 7 was negative (not adequate) 11R was negative and adequate 4R was negative (not adequate) 05/28/2023 Surgery Robotic assisted thoracoscopic right upper lobe lobectomy 05/28/2023 - Cancer Staged Staging form: Lung, AJCC 8th Edition - Pathologic stage from 05/28/2023: Stage IIB (pT3, pN0, cM0) 10/01/2023 - Immunotherapy Adjuvant pembrolizumab Past History Past medical, surgical, family, and social histories have been reviewed and updated with the patient today and are located elsewhere in the medical record. Current Outpatient Medications Medication Sig Acetaminophen 325 MG tablet Take 2 tablets by mouth every 4 hours as needed for Mild Pain. amLODIPine 10 MG tablet Take 1 tablet by mouth daily. Arnuity Ellipta 200 MCG/ACT Aerosol Powder, breath activated Aspirin [address] tablet Take 1 tablet by mouth daily. Atorvastatin 40 MG tablet Take 1 tablet by mouth at bedtime. Clopidogrel 75 MG tablet Take 1 tablet by mouth daily. fluticasone 50 MCG/ACT Suspension nasal spray 2 sprays by Nasal route daily. Losartan 50 MG tablet Take 0.5 tablets by mouth daily. Mirtazapine 15 MG tablet TAKE 1 & 1/2 (ONE & ONE-HALF) TABLETS BY MOUTH IN THE EVENING nitroGLYCERIN 0.[address] 1 tablet under tongue Every 5 MINutes as needed. [place] 3 1000 MG capsule Take 2 capsules by mouth daily. Pantoprazole [address] tablet DR Take 1 tablet by mouth daily. Pembrolizumab (KEYTRUDA IV) by Intravenous route. Vitamin E 200 units capsule Take 1 capsule by mouth daily. Meclizine 25 MG tablet Take 1 tablet by mouth 3 (three) times a day. (Patient not taking: Reported on 04/07/2024) traMADol 50 MG tablet Take 1 tablet by mouth every 4 hours as needed for Moderate Pain or Severe Pain for up to 7 days. (Patient not taking: Reported on 04/07/2024) Requested Prescriptions No prescriptions requested or ordered in this encounter Review of Systems Constitutional: (+) weight gain. Negative for fever or fatigue. HENT: Negative for congestion, sore throat and sinus pain. Eyes: Negative for blurred vision or double vision. Cardiovascular: (+) lightheadedness with rapid position changes. Negative for chest pain, syncope, palpitations and leg swelling. Respiratory: (+) LUCIO. (+) mild cough productive of clear phlegm --> improved. Gastrointestinal: Negative for nausea, vomiting, diarrhea, constipation or trouble swallowing. Genitourinary: Negative for bladder incontinence, dysuria, and frequency. Musculoskeletal: (+) physical deconditioning in his BLE's. Negative for myalgias, joint pain and falls. Neurological: (+) chronic numbness/tingling to bottom of feet with associated imbalance (L>R) --> worsening (he has a cane, but doesn't feel that he needs it). Negative for COBOS's, tremors, and focal weakness. Psychiatric: Negative for depression/anxiety. Skin: No rashes or lesions. Hematologic: (+) easy bruising. See Toxicity Assessment Sheet for more ROS. Physical Exam Vitals: 04/07/24 1323 04/07/24 1346 BP: 162/70 138/63 Pulse: 63 65 Resp: 16 Temp: 97.3 degrees F (36.3 degrees C) TempSrc: Oral SpO2: 96% Weight: 88.4 kg (194 lb 14.4 oz) Height: 1.74 m (5' 8.5) Wt Readings from Last 3 Encounters: 04/07/24 88.4 kg (194 lb 14.4 oz) 03/17/24 85.7 kg (188 lb 14.4 oz) 02/25/24 87.9 kg (193 lb 11.2 oz) ECOG performance status: 1 General: A&O x 3. No acute distress. Eyes: PERRLA, EOMI, anicteric sclera, conjunctiva & lids normal. Neck: Supple, no rigidity, no JVD, no lymphadenopathy. Oropharynx: No erythema or lesions noted. Moist and pink mucus membranes. Respiratory: Clear to auscultation bilaterally with referred breath sounds to RUL. No crackles/rhonchi/wheezes. Cardiovascular: Regular rate and rhythm. No murmurs, rubs, clicks, or gallops. Abdomen: BS's X4 quadrants. Soft, non-tender, non-distended. Neurological: No focal deficits. CN II-XII grossly intact. Extremities: No peripheral edema. Skin: Skin color, turgor, and temperature normal. No rashes or lesions. Lymph Nodes: No cervical or supraclavicular adenopathy. Psychosocial: Appropriate to situation. 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 His PS and labwork are suitable for treatment today. He will RTC in 3 weeks with a restaging chest CT (I.e. we are doing a short interval follow up scan to evaluate a newly visualized groundglass density in the CAMILA). CAD: S/p LHC and stent placement locally (most recently in September 2023). Continue follow up with local provider. Anxiety, Insomnia, and Decreased Appetite: I increased the patient's Mirtazapine in November 2023 to 22.5mg at bedtime. He was also referred to [facility] previously, but no showed to the scheduled visit on 11/26/23 (and it has not yet been rescheduled). BLE Neuropathy: Worsening. Etiology unclear, but he's dealt with this symptom for ~10 years he tells me. We again spoke about a referral to our OT specialist (Tamiko Hdez), and he was interestedin pursuing this - I will place the order in IHIS and communicate with Tamiko about this referral. Pt seen independently of Dr. Tobias. documented [facility] this encounterTri[facility] Instructions* Patient Instructions* Eloina Garcai RN - 04/07/2024 1:30 PM EDT -RTC in 3 weeks for labs/Syed/infusion (Pembrolizumab) with chest CT ~1 week before (formerly [facility]). -Referral to Tamiko Hdez (Occupational Therapy) when he RTC. FRANCK PennN, RN, OCN was your primary nurse for today's visit. IMPORTANT: If you are having symptoms, side effects, or problems, please call our main number at [phone]. You will speak with an Oncology Journeyman Sheet Metal Worker, who will take a message and forward it to ourTriage Nurse. The Triage Nurse will return your call within 24 hours, assess your problem, consult with your medical team, and give direction on what should be done. We are not able to accommodate walk-in appointments in order to keep our clinic running in a more timely manner. This is to provide the best possible care we can to all our patients. If it is an emergency you will need to go to your local ER. Ask them to fax your records to us so that we can update our team, fax number [phone]. Results: Please be aware that most lab and imaging results are being released to [facility]. These can sometimes be confusing or concerning to read. Please know that your care team will review/discuss resultswith you at your follow up appointment. Any questions or concerns can be addressed at that time. Appointments: We will do our best to schedule your infusion appointments after your clinic (MD or nurse practitioner) visit. On the days you do not have a clinic appointment, your infusion appointments will be scheduled prior to 9AM or after 2pm. Mid-day appointments are reserved for patients who need to be seen in the clinic. Thank you for understanding. As a multidisciplinary team, you may be seen by a medical oncology fellow, resident, or student, inaddition to your provider (Doctor, Nurse practitioner, or Physician Club Former) during your clinic visit. Please note there is a minimum two week turn around for all paperwork such as disability, FMLA, etc..please submit paperwork to our office as soon as possible. If you have MyChart, you will be receiving an Oncology Distress Screening. This screening is sent to all [facility] patients which includes patients with cancer diagnoses and also non-cancer diagnoses to assess any concerns that you may have. This questionnaire is optional. Once the screening questions are completed, we will review your answers in a timely manner. If you have an urgent matter, please contact your provider right away. Thank you If you receive a randomized patient satisfaction survey in the mail we would appreciate your feedback! We look forward to your positive comments as well as areas to improve. We are honored to be a part of your care team. Thank you. documented [facility] Instructions* Patient Instructions* Eloina Garcia RN - 04/07/2024 1:30 PM EDT -RTC in 3 weeks for labs/Syed/infusion (Pembrolizumab) with chest CT ~1 week before ([place] location). -Referral to Tamiko Hdez (Occupational Therapy) when he RTC. Eloina Garcia, FRANCKN, RN, OCN was your primary nurse for today's visit. IMPORTANT: If you are having symptoms, side effects, or problems, please call our main number at [phone]. You will speak with an Oncology Journeyman Sheet Metal Worker, who will take a message and forward it to ourTriage Nurse. The Triage Nurse will return your call within 24 hours, assess your problem, consult with your medical team, and give direction on what should be done. We are not able to accommodate walk-in appointments in order to keep our clinic running in a more timely manner. This is to provide the best possible care we can to all our patients. If it is an emergency you will need to go to your local ER. Ask them to fax your records to us so that we can update our team, fax number [phone]. Results: Please be aware that most lab and imaging results are being [facility]. These can sometimes be confusing or concerning to read. Please know that your care team will review/discuss resultswith you at your follow up appointment. Any questions or concerns can be addressed at that time. Appointments: We will do our best to schedule your infusion appointments after your clinic (MD or nurse practitioner) visit. On the days you do not have a clinic appointment, your infusion appointments will be scheduled prior to 9AM or after 2pm. Mid-day appointments are reserved for patients who need to be seen in the clinic. Thank you for understanding. As a multidisciplinary team, you may be seen by a medical oncology fellow, resident, or student, inaddition to your provider (Doctor, Nurse practitioner, or Physician Club Former) during your clinic visit. Please note there is a minimum two week turn around for all paperwork such as disability, FMLA, etc..please submit paperwork to our office as soon as possible. If you have MyChart, you will be receiving an Oncology Distress Screening. This screening is sent to all [facility] patients which includes patients with cancer diagnoses and also non-cancer diagnoses to assess any concerns that you may have. This questionnaire is optional. Once the screening questions are completed, we will review your answers in a timely manner. If you have an urgent matter, please contact your provider right away. Thank you If you receive a randomized patient satisfaction survey in the mail we would appreciate your feedback! We look forward to your positive comments as well as areas to improve. We are honored to be a part of your care team. Thank you. documented in this encounterTri[facility]09-[facility]-2024 Miscellaneous Notes* Addendum Note - JOHN Santos - 04/07/2024 1:30 PM EDT Addended by: ISAAC HODGE on: 04/08/2024 10:47 AM Modules accepted: Orders documented in this encounterTri[facility]-11-[facility]24 Note* Addendum Note - JOHN Santos - 04/07/2024 1:30 PM EDTAddended by: ISAAC HODGE on: 04/08/2024 10:47 AM Modules accepted: Orders [facility] Note* Addendum Note - JOHN Santos - 04/07/2024 1:30 PM EDTAddended by: ISAAC HODGE on: 04/08/2024 10:47 AM Modules accepted: Orders [facility]08-[facility] History of Present illness Narrative* Brittnee Bond RN - 03/17/2024 12:30 PM EDT Patient Seen in [facility] clinic and is cleared for treatment today per phone call/text from Brigid JIMENEZ. Patient arrives to infusion unit for Pembrolizumab . Labs and toxicity screen reviewed. Patient/family needs and learning style identified (see teaching/learning flowsheet). Message sent to [facility] Infusion Scheduling Pool to schedule patient for future appointments. Arrival message sent to pharmacy to release saline and premeds as indicated. Petar Penny received Pembrolizumab - completed Cycle 8 Day 1. Patient to return for next treatment on 04/07/24. Patient's next appointment has been verified by RN. documented in this encounter[facility] Instructions* Patient Instructions* Brittnee Bond RN - 03/17/2024 12:30 PM EDT Results for orders placed or performed in visit on 03/17/24 COMPREHENSIVE METABOLIC PANEL Result Value Ref Range Sodium 137 135 - 145 mmol/L Potassium 4.1 3.5 - 5.0 mmol/L Chloride 102 98 - 108 mmol/L BUN 12 7 - 25 mg/dL Creatinine 1.10 0.70 - 1.30 mg/dL Glucose 119 (H) 70 - 99 mg/dL Bilirubin Total 0.8 <1.5 mg/dL Albumin 4.4 3.5 - 5.0 g/dL Total Protein 7.4 6.4 - 8.3 g/dL AST 17 10 - 39 U/L ALP 93 32 - 126 U/L Calcium 9.9 8.6 - 10.5 mg/dL CO2 27 21 - 31 mmol/L ALT 13 10 - 52 U/L Bun/Crea Ratio 11 Osmolality (Calculated) 288 278 - 305 mOsm/kg Anion Gap 12 7 - 17 mmol/L eGFR, CKD-EPI, Male 69 >=60 mL/min/1.73m2 LACTATE DEHYDROGENASE Result Value Ref Range LD Total 202 (H) 100 - 190 U/L T4 FREE Result Value Ref Range Free T4 1.34 0.89 - 1.76 ng/dL TSH Result Value Ref Range TSH 3.383 0.550 - 4.780 uIU/mL CBC AND ELECTRONIC DIFF Result Value Ref Range WBC Count 10.92 (H) 3.73 - 10.10 K/uL RBC Count 5.20 4.38 - 5.83 M/uL Hemoglobin 15.2 13.4 - 16.8 g/dL Hematocrit 47.3 39.6 - 48.8 % Mean Cell Volume 91.0 79.0 - 94.5 fL Mean Cell Hgb 29.2 26.1 - 33.3 pg Mean Cell Hgb Conc 32.1 31.9 - 36.5 g/dL RBC Distribution 13.9 10.9 - 14.3 % Platelet Count 342 (H) 146 - 337 K/uL Mean Platelet Volume 9.5 8.7 - 12.3 fL DIFF STATUS Electronic Differential Segs + Bands Auto 71.3 % Immature Grans % 0.4 % Lymphocyte % Auto 16.9 % Monocyte % Auto 7.4 % Eosinophil % Auto 2.7 % Basophil % Auto 1.3 % Nucleated RBC 0.0 <=0.2 /100 WBC Segs + Bands,Absolute Auto 7.78 (H) 1.57 - 6.19 K/uL Immature Grans Absolute 0.04 <=0.07 K/uL Abs Lymph Auto 1.85 0.83 - 3.57 K/uL Abs [place] Auto 0.81 0.24 - 0.93 K/uL Abs Eos Auto 0.30 0.00 - 0.48 K/uL Abs Baso Auto 0.14 (H) 0.00 - 0.09 K/uL documented in this encounterU [facility] History of Present illness Narrative* Eloina Garcia RN - 03/17/2024 11:20 AM EDT [facility] was provisioned a portable pulse oximeter for home use by the [facility]. The patient was educated on the correct use of the pulse oximeter. The manufacture use instructions and instructions for cleaning were reviewed with the patient. The patient was educated to call the clinic any time the patient's SpO2 is below 90%. The patient was also educated to go to the nearest ED or call 911 if they are in respiratory distress. The patient verbalized understanding and denied any questions. Eloina Garcia RN * Isaac Hodge, WEATHER TEACHER-COMMUNITY NURSE - 03/17/2024 11:20 AM EDT Images from the original note were not included. Chief Complaint Patient presents with Follow-up Pt reports dry skin on back, no rash, but has been putting lotion on Date of Visit: 03/17/2024 Diagnosis: Stage IIB (pT3N0) SCC History of Present Illness Mr. Petar Penny is a 79 y.o. male, former smoker, PMH significant for CAD, HTN, HLD now with stage IIB ([id number]), PD-L1 100%, keratinizing squamous cell carcinoma (intra-lobar mets) s/p robotic assisted right upper lobe lobectomy 05/28/23. Given high risk features (poorly differentiated, lymphovascular invasion) and high PD-L1, it was recommended he start adjuvant therapy with pembrolizumab per the PEARLS/Keynote -091 study. He began this treatment on 10/01/23. Interval History Since his last visit, the patient reports stable breathing (LUCIO with moderate activity). He has an ongoing cough, but this is unchanged from baseline. His appetite is good, but he has early satiety. Overall, his weight is down ~5lbs over the last few weeks. He does not supplement his diet at this time. He is independent with ADL's. Brief Oncology History Oncology History Squamous cell carcinoma of right lung 03/05/2023 Initial Diagnosis Outside Slides [id number] (03/05/23) A. Right upper lung mass, CT-guided core biopsy: Squamous cell carcinoma 04/04/2023 Pathology Adrenal Biopsy [place]: 04/28/2023 Procedure EBUS with FNA: level 7 was negative (not adequate) 11R was negative and adequate 4R was negative (not adequate) 05/28/2023 Surgery Robotic assisted thoracoscopic right upper lobe lobectomy 05/28/2023 - Cancer Staged Staging form: Lung, AJCC 8th Edition - Pathologic stage from 05/28/2023: Stage IIB (pT3, pN0, cM0) 10/01/2023 - Immunotherapy Adjuvant pembrolizumab Past History Past medical, surgical, family, and social histories have been reviewed and updated with the patient today and are located elsewhere in the medical record. Current Outpatient Medications Medication Sig Acetaminophen 325 MG tablet Take 2 tablets by mouth every 4 hours as needed for Mild Pain. amLODIPine 10 MG tablet Take 1 tablet by mouth daily. Arnuity Ellipta 200 MCG/ACT Aerosol Powder, breath activated Aspirin [address] tablet Take 1 tablet by mouth daily. Atorvastatin 40 MG tablet Take 1 tablet by mouth at bedtime. Clopidogrel 75 MG tablet Take 1 tablet by mouth daily. fluticasone 50 MCG/ACT Suspension nasal spray 2 sprays by Nasal route daily. Losartan 50 MG tablet Take 1 tablet by mouth daily. Meclizine 25 MG tablet Take 1 tablet by mouth 3 (three) times a day. Mirtazapine 15 MG tablet TAKE 1 & 1/2 (ONE & ONE-HALF) TABLETS BY MOUTH IN THE EVENING nitroGLYCERIN 0.[address] 1 tablet under tongue Every 5 MINutes as needed. [place] 3 1000 MG capsule Take 2 capsules by mouth daily. Pantoprazole [address] tablet DR Take 1 tablet by mouth daily. Pembrolizumab (KEYTRUDA IV) by Intravenous route. Vitamin E 200 units capsule Take 1 capsule by mouth daily. traMADol 50 MG tablet Take 1 tablet by mouth every 4 hours as needed for Moderate Pain or Severe Pain for up to 7 days. Requested Prescriptions No prescriptions requested or ordered in this encounter Review of Systems Constitutional: (+) mild fatigue. (+) early satiety. (+) weight loss. Negative for fever. HENT: Negative for congestion, sore throat and sinus pain. Eyes: Negative for blurred vision or double vision. Cardiovascular: Negative for chest pain, palpitations and leg swelling. Respiratory: (+) LUCIO. (+) mild cough productive of clear phlegm. Gastrointestinal: Negative for nausea, vomiting, diarrhea, constipation or trouble swallowing. Genitourinary: Negative for bladder incontinence, dysuria, and frequency. Musculoskeletal: (+) physical deconditioning in his BLE's. Negative for myalgias, joint pain and falls. Neurological: (+) chronic numbness/tingling to bottom of feet with associated imbalance --> worsening (he has a cane, but doesn't feel that he needs it). Negative for COBOS's, tremors, and focal weakness. Psychiatric: Negative for depression/anxiety. Skin: No rashes or lesions. Hematologic: (+) easy bruising. See Toxicity Assessment Sheet for more ROS. Physical Exam Vitals: 03/17/24 1134 BP: 132/61 Pulse: 71 Resp: 18 Temp: 97.2 degrees F (36.2 degrees C) TempSrc: Oral SpO2: 95% Weight: 85.7 kg (188 lb 14.4 oz) Height: 1.74 m (5' 8.5) Wt Readings from Last 3 Encounters: 03/17/24 85.7 kg (188 lb 14.4 oz) 02/25/24 87.9 kg (193 lb 11.2 oz) 02/11/24 88 kg (194 lb 1.6 oz) ECOG performance status: 1 General: A&O x 3. No acute distress. Eyes: PERRLA, EOMI, anicteric sclera, conjunctiva & lids normal. Neck: Supple, no rigidity, no JVD, no lymphadenopathy. Oropharynx: No erythema or lesions noted. Moist and pink mucus membranes. Respiratory: Clear to auscultation bilaterally with referred breath sounds to RUL. No crackles/rhonchi/wheezes. Cardiovascular: Regular rate and rhythm. No murmurs, rubs, clicks, or gallops. Abdomen: BS's X4 quadrants. Soft, non-tender, non-distended. Neurological: No focal deficits. CN II-XII grossly intact. Extremities: No peripheral edema. Skin: Skin color, turgor, and temperature normal. No rashes or lesions. Lymph Nodes: No cervical or supraclavicular adenopathy. Psychosocial: Appropriate to situation. Labs and Studies Labs reviewed CBC Recent Labs 03/17/24 1125 WBC 10.92* HGB 15.2 PLATELET 342* CHEMISTRIES Recent Labs 03/17/24 1125 SODIUM 137 POTASSIUM 4.1 CHLORIDE 102 BUN 12 CREATSERUM 1.10 CALCIUM 9.9 CO2 27 GLUCOSE 119* LFTS Recent Labs 03/17/24 1125 BILITOTAL 0.8 AST 17 ALT 13 ALKPHOS 93 ALBUMIN 4.4 Lab Results Component Value Date TSH 3.383 03/17/2024 T4FREE 1.34 03/17/2024 Imaging 03/10/[address] Assessment and Plan Stage IIB SCC: Pt presents for C8 of adjuvant Pembrolizumab. His restaging scan appears stable froma cancer perspective, but newly visualized areas of groundglass densities are seen in the CAMILA (and favored to be infectious/inflammatory in etiology). I reviewed the imaging with Dr. Tobias and the plan will be to continue with treatment as scheduled. The patient will RTC in 3 weeks for re-evaluation. CAD: S/p LHC and stent placement locally (most recently in September 2023). Continue follow up with local provider. Anxiety, Insomnia, and Decreased Appetite: I increased the patient's Mirtazapine in November 2023 to 22.5mg at bedtime. He was also referred to [facility] previously, but no showed to the scheduled visit on 11/26/23 (and it has not yet been rescheduled). BLE Neuropathy: Worsening. Etiology unclear, but he's dealt with this symptom for ~10 years he tells me. I offered a referral to our OT specialist, but he declined as his transportation is limited. He plans to see a Neurologist in the near future he tells me. Gabapentin could be a consideration as well, which we can discuss further at next visit. Pt seen independently of Dr. Tobias. documented in this [facility]08-21-2024 Instructions* Patient Instructions* Eloina Garcia RN - 03/17/2024 11:20 AM EDT DECLAN Penn, RN, OCN was your primary nurse for today's visit. IMPORTANT: If you are having symptoms, side effects, or problems, please call our main number at [phone]. You will speak with an Oncology Journeyman Sheet Metal Worker, who will take a message and forward it to ouriage Nurse. The Triage Nurse will return your call within 24 hours, assess your problem, consult with your medical team, and give direction on what should be done. We are not able to accommodate walk-in appointments in order to keep our clinic running in a more timely manner. This is to provide the best possible care we can to all our patients. If it is an emergency you will need to go to your local ER. Ask them to fax your records to us so that we can update our team, fax number [phone]. Results: Please be aware that most lab and imaging results [facility] These can sometimes be confusing or concerning to read. Please know that your care team will review/discuss resultswith you at your follow up appointment. Any questions or concerns can be addressed at that time. Appointments: We will do our best to schedule your infusion appointments after your clinic (MD or nurse practitioner) visit. On the days you do not have a clinic appointment, your infusion appointments will be scheduled prior to 9AM or after 2pm. Mid-day appointments are reserved for patients who need to be seen in the clinic. Thank you for understanding. As a multidisciplinary team, you may be seen by a medical oncology fellow, resident, or student, inaddition to your provider (Doctor, Nurse practitioner, or Physician Club Former) during your clinic visit. Please note there is a minimum two week turn around for all paperwork such as disability, FMLA, etc..please submit paperwork to our office as soon as possible. If you have MyChart, you will be receiving an Oncology Distress Screening. This screening is sent to all [facility] patients which includes patients with cancer diagnoses and also non-cancer diagnoses to assess any concerns that you may have. This questionnaire is optional. Once the screening questions are completed, we will review your answers in a timely manner. If you have an urgent matter, please contact your provider right away. Thank you If you receive a randomized patient satisfaction survey in the mail we would appreciate your feedback! We look forward to your positive comments as well as areas to improve. We are honored to be a part of your care team. Thank you. [facility] History of Present illness Narrative* Meron Virk RN - 02/25/2024 2:00 PM EDT 1237: Report received from Shakeel Garcia RN - VS, labs, and assessment reviewed. Meron Virk RN 1312: Pt. arrived to clinic - accompanied by sig. other - A&OX4. Meron Virk RN Petar Penny received Pembrolizumab today - completed Cycle 7 Day 1. No signs or symptoms of a reaction noted. Pt. to lobby - ambulating with steady gait - accompanied by daughter - MOEX4 - A&OX4, denies any questions or needs at this time. Pt left @ 1400. AVS given to pt. Pt. has next appointment dates and times - dates verified. Meron Virk RN documented in this [facility]Tri[facility] History of Present illness Narrative* Isaac Hodge, WEATHER TEACHER-COMMUNITY NURSE - 02/25/2024 12:00 PM EDT Images from the original note were not included. Chief Complaint Patient presents with Follow-up Shingles have cleared up. Feeling well overall. Medication Refill remeron Date of Visit: 02/25/2024 Diagnosis: Stage IIB (pT3N0) SCC History of Present Illness Mr. Petar Penny is a 78 y.o. male, former smoker, PMH significant for CAD, HTN, HLD now with stage IIB ([id number]), PD-L1 100%, keratinizing squamous cell carcinoma (intra-lobar mets) s/p robotic assisted right upper lobe lobectomy 05/28/23. Given high risk features (poorly differentiated, lymphovascular invasion) and high PD-L1, it was recommended he start adjuvant therapy with pembrolizumab per the PEARLS/Keynote -091 study. He began this treatment on 10/01/23. Interval History Since his last visit, the patient reports resolution of his previously diagnosed shingles infection- the valtrex caused him nausea, so he only took a partial course of this therapy. His breathing isstable (LUCIO with moderate activity). His appetite is low, but his weight is stable. He is independent with ADL's. Brief Oncology History Oncology History Squamous cell carcinoma of right lung 03/05/2023 Initial Diagnosis Outside Slides [id number] (03/05/23) A. Right upper lung mass, CT-guided core biopsy: Squamous cell carcinoma 04/04/2023 Pathology Adrenal Biopsy [place]: 04/28/2023 Procedure EBUS with FNA: level 7 was negative (not adequate) 11R was negative and adequate 4R was negative (not adequate) 05/28/2023 Surgery Robotic assisted thoracoscopic right upper lobe lobectomy 05/28/2023 - Cancer Staged Staging form: Lung, AJCC 8th Edition - Pathologic stage from 05/28/2023: Stage IIB (pT3, pN0, cM0) 10/01/2023 - Immunotherapy Adjuvant pembrolizumab Past History Past medical, surgical, family, and social histories have been reviewed and updated with the patient today and are located elsewhere in the medical record. Current Outpatient Medications Medication Sig Acetaminophen 325 MG tablet Take 2 tablets by mouth every 4 hours as needed for Mild Pain. amLODIPine 10 MG tablet Take 1 tablet by mouth daily. Arnuity Ellipta 200 MCG/ACT Aerosol Powder, breath activated Aspirin [address] tablet Take 1 tablet by mouth daily. Atorvastatin 40 MG tablet Take 1 tablet by mouth at bedtime. Clopidogrel 75 MG tablet Take 1 tablet by mouth daily. fluticasone 50 MCG/ACT Suspension nasal spray 2 sprays by Nasal route daily. Losartan 50 MG tablet Take 1 tablet by mouth daily. Meclizine 25 MG tablet Take 1 tablet by mouth 3 (three) times a day. Mirtazapine 15 MG tablet TAKE 1 & 1/2 (ONE & ONE-HALF) TABLETS BY MOUTH IN THE EVENING nitroGLYCERIN 0.[address] 1 tablet under tongue Every 5 MINutes as needed. [place] 3 1000 MG capsule Take 2 capsules by mouth daily. Pantoprazole [address] tablet DR Take 1 tablet by mouth daily. Pembrolizumab (KEYTRUDA IV) by Intravenous route. Vitamin E 200 units capsule Take 1 capsule by mouth daily. traMADol 50 MG tablet Take 1 tablet by mouth every 4 hours as needed for Moderate Pain or Severe Pain for up to 7 days. Requested Prescriptions No prescriptions requested or ordered in this encounter Review of Systems Constitutional: (+) mild fatigue. (+) poor appetite. Negative for fever. HENT: Negative for congestion, sore throat and sinus pain. Eyes: Negative for blurred vision or double vision. Cardiovascular: Negative for chest pain, palpitations and leg swelling. Respiratory: (+) LUCIO. (+) mild cough productive of clear phlegm. Gastrointestinal: (+) nausea associated with valtrex --> resolved at this time. (+) soft BM's ~2x's per day. Negative for vomiting, constipation or trouble swallowing. Genitourinary: Negative for bladder incontinence, dysuria, and frequency. Musculoskeletal: (+) physical deconditioning in his BLE's. Negative for myalgias, joint pain and falls. Neurological: (+) numbness/tingling to bottom of feet with associated imbalance --> stable (he has a cane, but doesn't feel that he needs it). Negative for COBOS's, tremors, and focal weakness. Psychiatric: Negative for depression/anxiety. Skin: No rashes or lesions. Hematologic: (+) easy bruising. See Toxicity Assessment Sheet for more ROS. Physical Exam Vitals: 02/25/24 1144 BP: 143/65 Pulse: 73 Resp: 16 Temp: 98 degrees F (36.7 degrees C) TempSrc: Oral SpO2: 93% Weight: 87.9 kg (193 lb 11.2 oz) Height: 1.74 m (5' 8.5) Wt Readings from Last 3 Encounters: 02/25/24 87.9 kg (193 lb 11.2 oz) 02/11/24 88 kg (194 lb 1.6 oz) 01/21/24 87.7 kg (193 lb 6.4 oz) ECOG performance status: 1 General: A&O x 3. No acute distress. Eyes: PERRLA, EOMI, anicteric sclera, conjunctiva & lids normal. Neck: Supple, no rigidity, no JVD, no lymphadenopathy. Oropharynx: No erythema or lesions noted. Moist and pink mucus membranes. Respiratory: Clear to auscultation bilaterally with referred breath sounds to RUL. No crackles/rhonchi/wheezes. Cardiovascular: Regular rate and rhythm. No murmurs, rubs, clicks, or gallops. Abdomen: BS's X4 quadrants. Soft, non-tender, non-distended. Neurological: No focal deficits. CN II-XII grossly intact. Extremities: No peripheral edema. Skin: Skin color, turgor, and temperature normal. No rashes or lesions. Lymph Nodes: No cervical or supraclavicular adenopathy. Psychosocial: Appropriate to situation. 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 His PS and labwork are suitable for treatment today. He will RTC in 3 weeks with a restaging chest CT. CAD: S/p LHC and stent placement locally (most recently in September 2023). Continue follow up with local provider. Anxiety, Insomnia, and Decreased Appetite: I increased the patient's Mirtazapine in November 2023 to 22.5mg at bedtime. He was also referred to [facility] previously, but no showed to the scheduled visit on 11/26/23 (and it has not yet been rescheduled). Sialorrhea: Resolved with adjustment to his dentures. Shingles: Resolved with a partial course of valtrex (he could not tolerate the entirety of therapy d/t nausea associated with this treatment). Pt seen independently of Dr. Tobias. documented in this [facility] Instructions* Patient Instructions* Eloina Garcia RN - 02/25/2024 12:00 PM EDT FRANCK PennN, RN, OCN was your primary nurse for today's visit. IMPORTANT: If you are having symptoms, side effects, or problems, please call our main number at [phone]. You will speak with an Oncology Journeyman Sheet Metal Worker, who will take a message and forward it to ourTriage Nurse. The Triage Nurse will return your call within 24 hours, assess your problem, consult with your medical team, and give direction on what should be done. We are not able to accommodate walk-in appointments in order to keep our clinic running in a more timely manner. This is to provide the best possible care we can to all our patients. If it is an emergency you will need to go to your local ER. Ask them to fax your records to us so that we can update our team, fax number [phone]. Results: Please be aware that most lab and imaging results are being released to [facility]. These can sometimes be confusing or concerning to read. Please know that your care team will review/discuss resultswith you at your follow up appointment. Any questions or concerns can be addressed at that time. Appointments: We will do our best to schedule your infusion appointments after your clinic (MD or nurse practitioner) visit. On the days you do not have a clinic appointment, your infusion appointments will be scheduled prior to 9AM or after 2pm. Mid-day appointments are reserved for patients who need to be seen in the clinic. Thank you for understanding. As a multidisciplinary team, you may be seen by a medical oncology fellow, resident, or student, inaddition to your provider (Doctor, Nurse practitioner, or Physician Club Former) during your clinic visit. Please note there is a minimum two week turn around for all paperwork such as disability, FMLA, etc..please submit paperwork to our office as soon as possible. If you have MyChart, you will be receiving an Oncology Distress Screening. This screening is sent to all [facility] patients which includes patients with cancer diagnoses and also non-cancer diagnoses to assess any concerns that you may have. This questionnaire is optional. Once the screening questions are completed, we will review your answers in a timely manner. If you have an urgent matter, please contact your provider right away. Thank you If you receive a randomized patient satisfaction survey in the mail we would appreciate your feedback! We look forward to your positive comments as well as areas to improve. We are honored to be a part of your care team. Thank you. [facility] History of Present illness Narrative* Sarah Valentine APRN-COMMUNITY NURSE - 02/11/2024 9:00 AM EDT Mr. Penny presented notified our team he has an active shingles infection during his check in. He states lesions are not crusted over. Due to risk of exposure of our immunocompromised patients, we will defer treatment today. He was advised by our nursing staff to call our office once all lesions arecrusted over. At that time we can get him back in for treatment. I called Mr. Penny to discuss his symptoms further. He reports his lesions have been present for approximately two weeks. He denies any burning/pain/itching. Prior to leaving our office, our RN lookedat the area and noted two vesicles and one open lesion at his belt line. He reports his robot programmer did not provide any medications. We discussed a 7 day course of Valtrex. He will call our office if lesions do not improve or if they worsen. He is aware lesions need to be completely crusted over prior to returning to clinic. We will place a tentative appointment for two weeks, this may be moved out pending resolve of lesions. He verbalized understanding and denied any other concerns at this time. [facility] History of Present illness Narrative* Ky Rutherford RN - 01/21/2024 9:30 AM EDT 0942 Report received from med onc clinic Pt is cleared for infusion Nurse reviewed the following for abnormalities: Allergies Medications Labs Vital Signs Validated the following are signed/documented: Chemotherapy Ancillary Plan ECOG/Toxicity OK to treat Blood product infusion/Type &Cross/Consents Reviewed patient assessment and outstanding items: PIV Blood return checked before, during, and after infusion. Patient/family needs and learning style identified (see teaching/learning flowsheet). Falls risk assessed, safety measures implemented. 1046 Patient received keytruda infusions today. Patient tolerated well. Next appointments made per [facility]. Reviewed AVS with patient. All questions answered. [facility] History of Present illness Narrative* JOHN Santos - 01/21/2024 8:30 AM EDT Images from the original note were not included. Chief Complaint Patient presents with Lung Cancer No complaints at this time Date of Visit: 01/21/2024 Diagnosis: Stage IIB (pT3N0) SCC History of Present Illness Mr. Petar Penny is a 78 y.o. 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 Given high risk features (poorly differentiated, lymphovascular invasion) and high PD-L1, it was recommended he start adjuvant therapy with pembrolizumab per the PEARLS/Keynote -091 study. He began this treatment on 10/01/23. Interval History Since his last visit, the patient reports improved LUCIO (with moderate activity) after being placed on an inhaler of some type (by his blow torch burner) - he cannot remember the name, but will write it down and bring it to his next visit. The inhaler has also resolved his previously noted cough. His appetite is good and his weight is stable. He is independent with ADL's. Brief Oncology History Oncology History Squamous cell carcinoma of right lung 03/05/2023 Initial Diagnosis Outside Slides [id number] (03/05/23) A. Right upper lung mass, CT-guided core biopsy: Squamous cell carcinoma 04/04/2023 Pathology Adrenal Biopsy [place]: 04/28/2023 Procedure EBUS with FNA: level 7 was negative (not adequate) 11R was negative and adequate 4R was negative (not adequate) 05/28/2023 Surgery Robotic assisted thoracoscopic right upper lobe lobectomy 05/28/2023 - Cancer Staged Staging form: Lung, AJCC 8th Edition - Pathologic stage from 05/28/2023: Stage IIB (pT3, pN0, cM0) 10/01/2023 - Immunotherapy Adjuvant pembrolizumab Past History Past medical, surgical, family, and social histories have been reviewed and updated with the patient today and are located elsewhere in the medical record. Current Outpatient Medications Medication Sig Acetaminophen 325 MG tablet Take 2 tablets by mouth every 4 hours as needed for Mild Pain. amLODIPine 10 MG tablet Take 1 tablet by mouth daily. Aspirin [address] tablet Take 1 tablet by mouth daily. Atorvastatin 40 MG tablet Take 1 tablet by mouth at bedtime. Clopidogrel 75 MG tablet Take 1 tablet by mouth daily. fluticasone 50 MCG/ACT Suspension nasal spray 2 sprays by Nasal route daily. Losartan 50 MG tablet Take 1 tablet by mouth daily. Mirtazapine 15 MG tablet TAKE 1 & 1/2 (ONE & ONE-HALF) TABLETS BY MOUTH IN THE EVENING [place] 3 1000 MG capsule Take 2 capsules by mouth daily. Pantoprazole [address] tablet DR Take 1 tablet by mouth daily. Pembrolizumab (KEYTRUDA IV) by Intravenous route. Vitamin E 200 units capsule Take 1 capsule by mouth daily. Meclizine 25 MG tablet Take 1 tablet by mouth 3 (three) times a day. (Patient not taking: Reported on 12/03/2023) nitroGLYCERIN 0.[address] 1 tablet under tongue Every 5 MINutes as needed. (Patient not taking: Reported on 12/03/2023) traMADol 50 MG tablet Take 1 tablet by mouth every 4 hours as needed for Moderate Pain or Severe Pain for up to 7 days. Requested Prescriptions No prescriptions requested or ordered in this encounter Review of Systems Constitutional: (+) mild fatigue. Negative for fever. HENT: (+) sialorrhea --> improved with removal of dentures. Negative for congestion, sore throatand sinus pain. Eyes: Negative for blurred vision or double vision. Cardiovascular: Negative for chest pain, palpitations and leg swelling. Respiratory: (+) LUCIO --> improved. Negative for cough. Gastrointestinal: Negative for nausea, vomiting, diarrhea, constipation or trouble swallowing. Genitourinary: Negative for bladder incontinence, dysuria, and frequency. Musculoskeletal: Negative for myalgias, joint pain and falls. Neurological: (+) numbness/tingling to bottom of feet with associated imbalance --> stable (he has a cane, but doesn't feel that he needs it). (+) vertigo at times when he looks up. (+) hx of migraine COBOS's, but none recently. Negative for tremors and focal weakness. Psychiatric: Negative for depression/anxiety. Skin: No rashes or lesions. Hematologic: (+) easy bruising. See Toxicity Assessment Sheet for more ROS. Physical Exam Vitals: 01/21/24 0819 BP: 144/65 Pulse: 69 Resp: 16 Temp: 97.7 degrees F (36.5 degrees C) TempSrc: Oral SpO2: 96% Weight: 87.7 kg (193 lb 6.4 oz) Height: 1.74 m (5' 8.5) Wt Readings from Last 3 Encounters: 01/21/24 87.7 kg (193 lb 6.4 oz) 12/24/23 89.2 kg (196 lb 11.2 oz) 12/03/23 87.8 kg (193 lb 9.6 oz) ECOG performance status: 1 General: A&O x 3. No acute distress. Eyes: PERRLA, EOMI, anicteric sclera, conjunctiva & lids normal. Neck: Supple, no rigidity, no JVD, no lymphadenopathy. Oropharynx: No erythema or lesions noted. Moist and pink mucus membranes. Respiratory: Clear to auscultation bilaterally with referred breath sounds to RUL. No crackles/rhonchi/wheezes. Cardiovascular: Regular rate and rhythm. No murmurs, rubs, clicks, or gallops. Abdomen: BS's X4 quadrants. Soft, non-tender, non-distended. Neurological: No focal deficits. CN II-XII grossly intact. Extremities: No peripheral edema. Skin: Skin color, turgor, and temperature normal. No rashes or lesions. Lymph Nodes: No cervical or supraclavicular adenopathy. Psychosocial: Appropriate to situation. Labs and Studies Labs reviewed CBC Recent Labs 01/21/24 0807 WBC 8.85 HGB 15.8 PLATELET 241 CHEMISTRIES Recent Labs 01/21/24 0807 SODIUM 137 POTASSIUM 3.9 CHLORIDE 103 BUN 14 CREATSERUM 1.21 CALCIUM 9.6 CO2 24 GLUCOSE 128* LFTS Recent Labs 01/21/24 0807 BILITOTAL 1.0 AST 16 ALT 14 ALKPHOS 80 ALBUMIN 4.6 Lab Results Component Value Date TSH 3.637 01/21/2024 T4FREE 1.48 01/21/2024 Assessment and Plan Stage IIB SCC: Pt presents for C6 of adjuvant Pembrolizumab. His PS and labwork are suitable for treatment today. He will RTC in 3 weeks for re-evaluation. We'll plan on restaging scans every 3 months for now (next due in February 2024). CAD: S/p LHC and stent placement locally (most recently in September 2023). Continue follow up with local provider. Anxiety, Insomnia, and Decreased Appetite: I increased the patient's Mirtazapine last month to 22.5mg at bedtime. He was also referred to [facility], but no showed to the scheduled visit on 11/26/23 (and ithas not yet been rescheduled). Sialorrhea: Improved when he removed his dentures. As such, the thought is that he may need his dentures re-fitted. He plans to see his dentist in the near future for evaluation and to further discuss. Pt seen independently of Dr. Tobias. documented in this encounterTri[facility] Instructions* Patient Instructions* Eloina Garcia RN - 01/21/2024 8:30 AM EDT DECLAN Penn, RN, OCN was your primary nurse for today's visit. IMPORTANT: If you are having symptoms, side effects, or problems, please call our main number at [phone]. You will speak with an Oncology Journeyman Sheet Metal Worker, who will take a message and forward it to ouriage Nurse. The Triage Nurse will return your call within 24 hours, assess your problem, consult with your medical team, and give direction on what should be done. We are not able to accommodate walk-in appointments in order to keep our clinic running in a more timely manner. This is to provide the best possible care we can to all our patients. If it is an emergency you will need to go to your local ER. Ask them to fax your records to us so that we can update our team, fax number [phone]. Results: Please be aware that most lab and imaging results are being released to [facility]. These can sometimes be confusing or concerning to read. Please know that your care team will review/discuss resultswith you at your follow up appointment. Any questions or concerns can be addressed at that time. Appointments: We will do our best to schedule your infusion appointments after your clinic (MD or nurse practitioner) visit. On the days you do not have a clinic appointment, your infusion appointments will be scheduled prior to 9AM or after 2pm. Mid-day appointments are reserved for patients who need to be seen in the clinic. Thank you for understanding. As a multidisciplinary team, you may be seen by a medical oncology fellow, resident, or student, inaddition to your provider (Doctor, Nurse practitioner, or Physician Club Former) during your clinic visit. Please note there is a minimum two week turn around for all paperwork such as disability, FMLA, etc..please submit paperwork to our office as soon as possible. If you have MyChart, you will be receiving an Oncology Distress Screening. This screening is sent to all [facility] patients which includes patients with cancer diagnoses and also non-cancer diagnoses to assess any concerns that you may have. This questionnaire is optional. Once the screening questions are completed, we will review your answers in a timely manner. If you have an urgent matter, please contact your provider right away. Thank you If you receive a randomized patient satisfaction survey in the mail we would appreciate your feedback! We look forward to your positive comments as well as areas to improve. We are honored to be a part of your care team. Thank you. [facility] History of Present illness Narrative* Kimmy Harvey RN - 12/24/2023 10:30 AM EDT Pt seen in chemo clinic. Labs and toxicity screen reviewed. Report from Brigid Grayson for Pembro. Patient/family needs and learning style identified. Patient tolerated treatment . Patient given AVS and next apt. All questions and concerns addressed.Patient left ambulatory. documented in this encounterTriHealth [facility]05-29-[facility] History of Present illness Narrative* Kathryn Tobias MD - 12/24/2023 9:20 AM EDT Images from the original note were not included. Chief Complaint Patient presents with Lung Cancer Had sore in his mouth that is gone now but he is drooling and that is new for him, feeling achy at times in legs and back, has dry cough, needs refill of remeron Date of Visit: 12/24/2023 Diagnosis: Stage IIB (pT3N0) SCC History of Present Illness Mr. Petar Penny is a 78 y.o. 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 Given high risk features (poorly differentiated, lymphovascular invasion) and high PD-L1, it was recommended he start adjuvant therapy with pembrolizumab per the PEARLS/Keynote -091 study. He began this treatment on 10/01/23. He presents for evaluation prior to cycle 5. Interval History He is accompanied by his daughter and arrives feeling well. Since his last visit, he reports muscleaches throughout his legs. He also reports new episodes of drooling, but denies any facial numbness. Brief Oncology History Oncology History Squamous cell carcinoma of right lung 03/05/2023 Initial Diagnosis Outside Slides [id number] (03/05/23) A. Right upper lung mass, CT-guided core biopsy: Squamous cell carcinoma 04/04/2023 Pathology Adrenal Biopsy Falguni: 04/28/2023 Procedure EBUS with FNA: level 7 was negative (not adequate) 11R was negative and adequate 4R was negative (not adequate) 05/28/2023 Surgery Robotic assisted thoracoscopic right upper lobe lobectomy 05/28/2023 - Cancer Staged Staging form: Lung, AJCC 8th Edition - Pathologic stage from 05/28/2023: Stage IIB (pT3, pN0, cM0) 10/01/2023 - Immunotherapy Adjuvant pembrolizumab Past History Past medical, surgical, family, and social histories have been reviewed and updated with the patient today and are located elsewhere in the medical record. Current Outpatient Medications Medication Sig Acetaminophen 325 MG tablet Take 2 tablets by mouth every 4 hours as needed for Mild Pain. amLODIPine 10 MG tablet Take 1 tablet by mouth daily. Aspirin [address] tablet Take 1 tablet by mouth daily. Atorvastatin 40 MG tablet Take 1 tablet by mouth at bedtime. Clopidogrel 75 MG tablet Take 1 tablet by mouth daily. fluticasone 50 MCG/ACT Suspension nasal spray 2 sprays by Nasal route daily. Losartan 50 MG tablet Take 1 tablet by mouth daily. Meclizine 25 MG tablet Take 1 tablet by mouth 3 (three) times a day. (Patient not taking: Reported on 12/03/2023) Mirtazapine 15 MG tablet Take 1.5 tablets (22.5mg) every evening. nitroGLYCERIN 0.[address] 1 tablet under tongue Every 5 MINutes as needed. (Patient not taking: Reported on 12/03/2023) [place] 3 1000 MG capsule Take 2 capsules by mouth daily. Pantoprazole [address] tablet DR Take 1 tablet by mouth daily. Pembrolizumab (KEYTRUDA IV) by Intravenous route. traMADol 50 MG tablet Take 1 tablet by mouth every 4 hours as needed for Moderate Pain or Severe Pain for up to 7 days. Vitamin E 200 units capsule Take 1 capsule by mouth daily. Requested Prescriptions No prescriptions requested or ordered in this encounter Review of Systems Constitutional: (+) fatigue --> improved. Negative for fever. HENT: Negative for congestion, sore throat and sinus pain. Eyes: Negative for blurred vision or double vision. Cardiovascular: Negative for chest pain, palpitations and leg swelling. Respiratory: (+) LUCIO --> improved. (+) dry cough --> improved. Gastrointestinal: Negative for nausea, vomiting, diarrhea, constipation or trouble swallowing. Genitourinary: Negative for bladder incontinence, dysuria, and frequency. Musculoskeletal: Negative for myalgias, joint pain and falls. Neurological: (+) numbness/tingling to bottom of feet with associated imbalance --> stable. (+) hx of migraine COBOS's, but none recently. Negative for tremors and focal weakness. Psychiatric: Negative for depression/anxiety. Skin: No rashes or lesions. Hematologic: No bleeding or excessive bruising. See Toxicity Assessment Sheet for more ROS. Physical Exam Vitals: 12/24/23 1006 BP: 151/79 Pulse: 70 Resp: 18 Temp: 97.6 degrees F (36.4 degrees C) TempSrc: Oral SpO2: 94% Weight: 89.2 kg (196 lb 11.2 oz) Height: 1.74 m (5' 8.5) Wt Readings from Last 3 Encounters: 12/24/23 89.2 kg (196 lb 11.2 oz) 12/03/23 87.8 kg (193 lb 9.6 oz) 11/12/23 87.6 kg (193 lb 1.6 oz) ECOG performance status: 1 General: A&O x 3. No acute distress. Eyes: PERRLA, EOMI, anicteric sclera, conjunctiva & lids normal. Neck: Supple, no rigidity, no JVD, no lymphadenopathy. Oropharynx: No erythema or lesions noted. Moist and pink mucus membranes. Respiratory: Clear to auscultation bilaterally with referred breath sounds to RUL. No crackles/rhonchi/wheezes. Cardiovascular: Regular rate and rhythm. No murmurs, rubs, clicks, or gallops. Abdomen: BS's X4 quadrants. Soft, non-tender, non-distended. Neurological: No focal deficits. CN II-XII grossly intact. Extremities: No peripheral edema. Skin: Skin color, turgor, and temperature normal. No rashes or lesions. Lymph Nodes: No cervical or supraclavicular adenopathy. Psychosocial: Appropriate to situation. Labs and Studies Labs have been reviewed Lab Results Component Value Date WBC 7.02 12/24/2023 HGB 15.1 12/24/2023 HCT 43.8 12/24/2023 PLATELET 224 12/24/2023 MCV 90.3 12/24/2023 Lab Results Component Value Date SBANS 4.45 12/24/2023 SBANS = ANC Lab Results Component Value Date SODIUM 137 12/24/2023 POTASSIUM 4.0 12/24/2023 CHLORIDE 104 12/24/2023 CO2 27 12/24/2023 BUN 11 12/24/2023 CREATSERUM 1.14 12/24/2023 Lab Results Component Value Date CALCIUM 9.4 12/24/2023 Lab Results Component Value Date ALT 16 12/24/2023 AST 17 12/24/2023 ALKPHOS 69 12/24/2023 BILITOTAL 0.9 12/24/2023 Lab Results Component Value Date TSH 3.462 12/24/2023 T4FREE 1.27 12/24/[address] CHEST WITHOUT CONTRAST Result Date: 12/23/2023 EXAM: CT CHEST WITHOUT CONTRAST, 12/16/2023 16:11 PM COMPARISON: CT chest dated November 05, 2023 CLINICAL INDICATIONS: Non-small cell lung cancer (NSCLC), monitor; RELEVANT CLINICAL HISTORY: C34.91:Non-small cell cancer of right lung Please schedule CT Chest to be performed before follow-up visit with Dr. Valenzuela on 12/16/23; TECHNIQUE: CT images of the chest were obtained without intravenous contrast. FINDINGS: Lungs and Pleura: Status post right upper lobectomy. Upper lung emphysema. Slight interval decrease in size of a trace right pleural effusion. Tracheobronchial tree: The ligament changes. Otherwise unremarkable. Mediastinum/Leni: No mediastinal or hilar lymphadenopathy. Axilla and Supraclavicular Regions: No axillary or supraclavicular adenopathy. Cardiovascular: The cardiac chambers are within normal limits. The pericardium is normal. The aorta and its arch branch vessels are unremarkable. The pulmonary arteries are also unremarkable. Stable cardiac device. Multivessel coronary artery calcific indications. Upper Abdomen: Punctate nonobstructing right renal calculi. Tiny hepatic hypodensities favoring cysts or hemangiomas. Bones and Soft Tissue: No suspicious osseous lesion. IMPRESSION: 1. Status post right upper lobectomy. No evidence of local disease recurrence or metastasis within the chest. Assessment and Plan Petar Penny is a 78 y.o. male former smoker, PMH significant for CAD, HTN, HLD now with stage IIB(pP7C4N1), PD-L1 100%, keratinizing squamous cell carcinoma (intra-lobar mets) s/p robotic assistedright upper lobe lobectomy 05/28/23. Given high risk features (poorly differentiated, lymphovascularinvasion) and high PD- L1 it was recommended he start adjuvant therapy with pembrolizumab per the PEA RLS/Keynote -091 study. Stage IIB SCC: S/p right upper lobectomy. Labs, VS, and PS reviewed. CT chest 12/16/23 is without evidence of local disease recurrence or metastasis. He is doing well and will proceed with C5 of adjuvant pembrolizumab. Sialorrhea: Unclear etiology. Low suspicion of obrien's palsy. I will ask our clinical pharmacist forpossible side effects of current medication. CAD: S/p LHC and stent placement locally (most recently in September 2023). Continue follow up with local provider. Anxiety, Insomnia, and Decreased Appetite: continue on mirtazapine 22.5mg at bedtime. He was also referred to [facility], but no showed to visit on 11/26/23. Not yet rescheduled. Clinical study: information on [employer] provided. This study evaluates 3 trackers that measure the physical activity of patients undergoing lung cancer. If he is interested, I will have our coordinator reach out. He will return to clinic in 4 weeks for labs, SHARA, and infusion. Of course, in the interim, they were instructed to contact us with any questions, concerns, or any new or worsening symptoms. Documented by Keily Colón, for Dr. Kathryn Tobias on 12/24/2023 at 10:42 AM. All medical record entries made by the [place] were at my direction and personally dictated by me, Kathryn Tobias MD . I have reviewed and edited the chart and agree that the record accurately reflects my personal performance of the history, physical exam, assessment and plan. I have also personally directed, reviewed, and agree with the discharge instructions. Kathryn Tobias MD [employer] with [employer] (Thoracic Oncology/Geriatric Oncology) [facility] Clinic Pager: [phone] Email: [email or web address] documented in this encounterTriHealth [facility]05-29-2024 Instructions* Patient Instructions* Eloina Garcia RN - 12/24/2023 9:20 AM EDT DECLAN Penn, RN, OCN was your primary nurse for today's visit. IMPORTANT: If you are having symptoms, side effects, or problems, please call our main number at [phone]. You will speak with an Oncology Journeyman Sheet Metal Worker, who will take a message and forward it to ourTriage Nurse. The Triage Nurse will return your call within 24 hours, assess your problem, consult with your medical team, and give direction on what should be done. We are not able to accommodate walk-in appointments in order to keep our clinic running in a more timely manner. This is to provide the best possible care we can to all our patients. If it is an emergency you will need to go to your local ER. Ask them to fax your records to us so that we can update our team, fax number [phone]. Results: Please be aware that most lab and imaging results are being released to [facility]. These can sometimes be confusing or concerning to read. Please know that your care team will review/discuss resultswith you at your follow up appointment. Any questions or concerns can be addressed at that time. Appointments: We will do our best to schedule your infusion appointments after your clinic (MD or nurse practitioner) visit. On the days you do not have a clinic appointment, your infusion appointments will be scheduled prior to 9AM or after 2pm. Mid-day appointments are reserved for patients who need to be seen in the clinic. Thank you for understanding. As a multidisciplinary team, you may be seen by a medical oncology fellow, resident, or student, inaddition to your provider (Doctor, Nurse practitioner, or Physician Club Former) during your clinic visit. Please note there is a minimum two week turn around for all paperwork such as disability, FMLA, etc..please submit paperwork to our office as soon as possible. If you have MyChart, you will be receiving an Oncology Distress Screening. This screening is sent to all [facility] patients which includes patients with cancer diagnoses and also non-cancer diagnoses to assess any concerns that you may have. This questionnaire is optional. Once the screening questions are completed, we will review your answers in a timely manner. If you have an urgent matter, please contact your provider right away. Thank you If you receive a randomized patient satisfaction survey in the mail we would appreciate your feedback! We look forward to your positive comments as well as areas to improve. We are honored to be a part of your care team. Thank you. [facility] History of Present illness Narrative* Meron Ambriz RN - 12/03/2023 2:30 PM EDT 1420 Pt seen in Med/Onc clinic. Labs and toxicity screen reviewed. Report taken from clinic RNBrigid. Clear for treatment. Patient/family needs and learning style identified. * Jeff Perez RN - 12/03/2023 2:30 PM EDT 1536 Petar Penny received Keytruda today. No signs or symptoms of a reaction noted. AVS reviewed;confirmed understanding of follow up appts and discharge instructions; and to contact Dr. Tobias with issues or concerns prior to follow up appt. Patient to return for next treatment on December 23. Pt left ambulatory with steady gait, A&OX3. Denies further needs. documented in this encounterTriHealth [facility]05-08-[facility]24 Instructions* Patient Instructions* Jeff Perez RN - 12/03/2023 2:30 PM EDT Precautions Chemotherapy: Follow these precautions for 48 hours after your chemotherapy infusion is complete: sit down to urinate; close the lid on the toilet & flush twice; & use a condom if sexually active. Drink 6-8 large glasses of fluid a day. Infection Control: Check your temperature anytime you feel warm, have chills or do not feel well. Call the office for a temperature > 100.5, if you have increased shortness of breath, a cough withgreen/yellow phlegm, a sore throat, or burning or bleeding with urination. Practice good hand washing, personal hygiene, & mouth care. Avoid exposure to people who are sick. * Attachments The following attachments cannot be sent through Care Everywhere. * pembrolizumab (Macedonian) documented in this encounterTriHealth [facility]05-08-2024 History of Present illness Narrative* JOHN Santos - 12/03/2023 1:00 PM EDT Images from the original note were not included. Chief Complaint Patient presents with Chemotherapy Patient here for Pembrolizumab.Patient has questions related to medication. Date of Visit: 12/03/2023 Diagnosis: Stage IIB (pT3N0) SCC History of Present Illness Mr. Petar Penny is a 78 y.o. male, former smoker, PMH significant for CAD, HTN, HLD now with stage IIB ([id number]), PD-L1 100%, keratinizing squamous cell carcinoma (intra-lobar mets) s/p robotic assisted right upper lobe lobectomy 05/28/23. Given high risk features (poorly differentiated, lymphovascular invasion) and high PD-L1, it was recommended he start adjuvant therapy with pembrolizumab per the PEARLS/Keynote -091 study. He began this treatment on 10/01/23. Interval History Since his last visit, the patient reports improved LUCIO (with moderate activity). His fatigue and cough have improved as well. His appetite is good and his weight is stable. He is independent with ADL's. Brief Oncology History Oncology History Squamous cell carcinoma of right lung 03/05/2023 Initial Diagnosis Outside Slides [id number] (03/05/23) A. Right upper lung mass, CT-guided core biopsy: Squamous cell carcinoma 04/04/2023 Pathology Adrenal Biopsy Falguni: 04/28/2023 Procedure EBUS with FNA: level 7 was negative (not adequate) 11R was negative and adequate 4R was negative (not adequate) 05/28/2023 Surgery Robotic assisted thoracoscopic right upper lobe lobectomy 05/28/2023 - Cancer Staged Staging form: Lung, AJCC 8th Edition - Pathologic stage from 05/28/2023: Stage IIB (pT3, pN0, cM0) 10/01/2023 - Immunotherapy Adjuvant pembrolizumab Past History Past medical, surgical, family, and social histories have been reviewed and updated with the patient today and are located elsewhere in the medical record. Current Outpatient Medications Medication Sig Acetaminophen 325 MG tablet Take 2 tablets by mouth every 4 hours as needed for Mild Pain. amLODIPine 10 MG tablet Take 1 tablet by mouth daily. Aspirin [address] tablet Take 1 tablet by mouth daily. Atorvastatin 40 MG tablet Take 1 tablet by mouth at bedtime. Clopidogrel 75 MG tablet Take 1 tablet by mouth daily. Losartan 50 MG tablet Take 1 tablet by mouth daily. Mirtazapine 15 MG tablet Take 1.5 tablets (22.5mg) every evening. [place] 3 1000 MG capsule Take 2 capsules by mouth daily. Pantoprazole [address] tablet DR Take 1 tablet by mouth daily. Vitamin E 200 units capsule Take 1 capsule by mouth daily. Meclizine 25 MG tablet Take 1 tablet by mouth 3 (three) times a day. (Patient not taking: Reported on 12/03/2023) nitroGLYCERIN 0.[address] 1 tablet under tongue Every 5 MINutes as needed. (Patient not taking: Reported on 12/03/2023) Pembrolizumab (KEYTRUDA IV) by Intravenous route. traMADol 50 MG tablet Take 1 tablet by mouth every 4 hours as needed for Moderate Pain or Severe Pain for up to 7 days. Requested Prescriptions No prescriptions requested or ordered in this encounter Review of Systems Constitutional: (+) fatigue --> improved. Negative for fever. HENT: Negative for congestion, sore throat and sinus pain. Eyes: Negative for blurred vision or double vision. Cardiovascular: Negative for chest pain, palpitations and leg swelling. Respiratory: (+) LUCIO --> improved. (+) dry cough --> improved. Gastrointestinal: Negative for nausea, vomiting, diarrhea, constipation or trouble swallowing. Genitourinary: Negative for bladder incontinence, dysuria, and frequency. Musculoskeletal: Negative for myalgias, joint pain and falls. Neurological: (+) numbness/tingling to bottom of feet with associated imbalance --> stable. (+) hx of migraine COBOS's, but none recently. Negative for tremors and focal weakness. Psychiatric: Negative for depression/anxiety. Skin: No rashes or lesions. Hematologic: No bleeding or excessive bruising. See Toxicity Assessment Sheet for more ROS. Physical Exam Vitals: 12/03/23 1257 BP: 145/65 Pulse: 64 Resp: 18 Temp: 96.3 degrees F (35.7 degrees C) TempSrc: Temporal SpO2: 95% Weight: 87.8 kg (193 lb 9.6 oz) Height: 1.74 m (5' 8.5) Wt Readings from Last 3 Encounters: 12/03/23 87.8 kg (193 lb 9.6 oz) 11/12/23 87.6 kg (193 lb 1.6 oz) 11/05/23 87.1 kg (192 lb) ECOG performance status: 1 General: A&O x 3. No acute distress. Eyes: PERRLA, EOMI, anicteric sclera, conjunctiva & lids normal. Neck: Supple, no rigidity, no JVD, no lymphadenopathy. Oropharynx: No erythema or lesions noted. Moist and pink mucus membranes. Respiratory: Clear to auscultation bilaterally with referred breath sounds to RUL. No crackles/rhonchi/wheezes. Cardiovascular: Regular rate and rhythm. No murmurs, rubs, clicks, or gallops. Abdomen: BS's X4 quadrants. Soft, non-tender, non-distended. Neurological: No focal deficits. CN II-XII grossly intact. Extremities: No peripheral edema. Skin: Skin color, turgor, and temperature normal. No rashes or lesions. Lymph Nodes: No cervical or supraclavicular adenopathy. Psychosocial: Appropriate to situation. Labs and Studies Labs reviewed CBC Recent Labs 12/03/23 1254 WBC 7.46 HGB 16.0 PLATELET 240 CHEMISTRIES Recent Labs 12/03/23 1254 SODIUM 137 POTASSIUM 4.3 CHLORIDE 103 BUN 10 CREATSERUM 1.13 CALCIUM 9.5 CO2 28 GLUCOSE 86 LFTS Recent Labs 12/03/23 1254 BILITOTAL 1.0 AST 19 ALT 15 ALKPHOS 72 ALBUMIN 4.6 Lab Results Component Value Date TSH 2.264 12/03/2023 T4FREE 1.20 12/03/2023 Assessment and Plan Stage IIB SCC: Pt presents for C4 of adjuvant Pembrolizumab. His PS and labwork are suitable for treatment today. He will RTC in 3 weeks with a restaging chest CT (currently scheduled for 12/15/23). CAD: S/p LHC and stent placement locally (most recently in September 2023). Continue follow up with local provider. Anxiety, Insomnia, and Decreased Appetite: I increased the patient's Mirtazapine last month to 22.5mg at bedtime. He was also referred to [facility], but no showed to the scheduled visit on 11/26/23. Pt seen independently of Dr. Tobias. documented in this encounterOS[facility] Instructions* Patient Instructions* Eloina Garcia RN - 12/03/2023 1:00 PM EDT DECLAN Penn, RN, OCN was your primary nurse for today's visit. IMPORTANT: If you are having symptoms, side effects, or problems, please call our main number at [phone]. You will speak with an Oncology Journeyman Sheet Metal Worker, who will take a message and forward it to ourTriage Nurse. The Triage Nurse will return your call within 24 hours, assess your problem, consult with your medical team, and give direction on what should be done. We are not able to accommodate walk-in appointments in order to keep our clinic running in a more timely manner. This is to provide the best possible care we can to all our patients. If it is an emergency you will need to go to your local ER. Ask them to fax your records to us so that we can update our team, fax number [phone]. Results: Please be aware that most lab and imaging results are being released [facility]. These can sometimes be confusing or concerning to read. Please know that your care team will review/discuss resultswith you at your follow up appointment. Any questions or concerns can be addressed at that time. Appointments: We will do our best to schedule your infusion appointments after your clinic (MD or nurse practitioner) visit. On the days you do not have a clinic appointment, your infusion appointments will be scheduled prior to 9AM or after 2pm. Mid-day appointments are reserved for patients who need to be seen in the clinic. Thank you for understanding. As a multidisciplinary team, you may be seen by a medical oncology fellow, resident, or student, inaddition to your provider (Doctor, Nurse practitioner, or Physician Club Former) during your clinic visit. Please note there is a minimum two week turn around for all paperwork such as disability, FMLA, etc..please submit paperwork to our office as soon as possible. If you have MyChart, you will be receiving an Oncology Distress Screening. This screening is sent to all [facility] patients which includes patients with cancer diagnoses and also non-cancer diagnoses to assess any concerns that you may have. This questionnaire is optional. Once the screening questions are completed, we will review your answers in a timely manner. If you have an urgent matter, please contact your provider right away. Thank you If you receive a randomized patient satisfaction survey in the mail we would appreciate your feedback! We look forward to your positive comments as well as areas to improve. We are honored to be a part of your care team. Thank you. documented in this [facility]05-03-2024 Procedure note [facility]04-17-2024 History of Present illness Narrative* Mary Ann Sosa RN - 11/12/2023 10:30 AM EDT Report recieved from Merly JIMENEZ. Labs, vitals, wt and assessment reviewed. Pt cleared for treatment. Patient to BS chemo today for C3 D1. Patient arrived via walking accompanied by family. A&O x3, no complaints / concerns. Labs completed prior. Assessment, VS complete. Patient arrival sent to pharmacy. Patient tolerated treatment today without complaint / concern. Patient left the unit via walking accompanied by family. AVS printed and reviewed, states understanding of next appointments. Patient denied needing further assistance. documented in this [facility]04-17-2024 Instructions* Patient Instructions* Mary Ann Sosa RN - 11/12/2023 10:30 AM EDT APPOINTMENTS We will do our best to schedule your infusion appointments after your clinic (MD or nurse practitioner) visit. On the days you do not have a clinic appointment, your infusion appointments will be scheduled prior to 9 AM or after 3 PM. Mid-day appointments are reserved for patients who need to be seen in the clinic. Thank you for your understanding. When to Call the Office Please call Dr Tobias's office @ [phone] to speak to a nurse regarding any symptoms or questions about your medications. This number is available 17/02. After business hours you may use the samephone number for concerns. You will then be connected with a Kassie nurse in our clinical call center. Symptoms or events you should call your doctor's office about include: Balance/weakness - changes in your walking such as falling, tripping, losing your balance Constipation - no bowel movement in three days Dehydration - dizzy, lightheaded, or weak Diarrhea - watery bowel movements more than four times a day over your normal amount Edema (Swelling) - any swelling in your feet, ankles, calves and arms especially if you notice any pain, redness, or warmth at the area; any abdominal swelling that affects your breathing Fatigue/weakness - unable to get out of bed or leave the house because you are too tired Fall - any time you fall or almost fall Fevers - any fever 100.5 or more with or without symptoms (do not take Tylenol, aspirin, Ibuprofen,or Aleve before you call the office!) Infection - fever, burning when you urinate, wheezing, cough with or without phlegm, or sore throat IV site - swelling, warmth, redness, hardened area near the old IV site Mouth sores - any sores that make it painful for you to eat; any white patches in your mouth Nausea - not controlled with your nausea medications - if you have more than one prescription for nausea, make sure you have tried them all before calling the office (sometimes one medicine will not work well and you need to take a different one) Neuropathy (numbness or tingling in fingers/toes/feet) - pain or numbness affecting your daily life; tripping when you walk because you cannot feel your feet; dropping things because you cannot feel your fingertips Pain - not controlled by your current pain medications Rash - skin changes anywhere on your body Shortness of breath/problems breathing - any changes in your breathing or chest pain - CALL 911 if this is a new symptom Unable to eat for more than 24 hours - when you have not been able to eat or drink in a 24 hour period Vomiting - more than once in a 24 hour time frame Survey Following your visit today, you may receive a survey via mail or email asking about your experience. We are always looking for ways to improve your visit. Please share your feedback and comments withus- We would love to hear from you! * Attachments The following attachments cannot be sent through Care Everywhere. * pembrolizumab (Macedonian) [facility] History of Present illness Narrative* Isaac Taylor Hodge, WEATHER TEACHER-COMMUNITY NURSE - 11/12/2023 9:20 AM EDT Images from the original note were not included. Chief Complaint Patient presents with Follow-up Issues w/ sleep, currently taking amitriptyline 1 tablet, can he take 2? Noting more prevalent SOB Date of Visit: 11/12/2023 Diagnosis: Stage IIB (pT3N0) SCC History of Present Illness Mr. Petar Penny is a 78 y.o. male, former smoker, PMH significant for CAD, HTN, HLD now with stage IIB ([id number]), PD-L1 100%, keratinizing squamous cell carcinoma (intra-lobar mets) s/p robotic assisted right upper lobe lobectomy 05/28/23. Given high risk features (poorly differentiated, lymphovascular invasion) and high PD-L1, it was recommended he start adjuvant therapy with pembrolizumab per the PEARLS/Keynote -091 study. He began this treatment on 10/01/23. Interval History Since his last visit, the patient reports stable LUCIO with minimal activity. He endorses fatigue. His appetite is good and his weight is stable. He is independent with ADL's. Brief Oncology History Oncology History Squamous cell carcinoma of right lung 03/05/2023 Initial Diagnosis Outside Slides [id number] (03/05/23) A. Right upper lung mass, CT-guided core biopsy: Squamous cell carcinoma 04/04/2023 Pathology Adrenal Biopsy [place]: 04/28/2023 Procedure EBUS with FNA: level 7 was negative (not adequate) 11R was negative and adequate 4R was negative (not adequate) 05/28/2023 Surgery Robotic assisted thoracoscopic right upper lobe lobectomy 05/28/2023 - Cancer Staged Staging form: Lung, AJCC 8th Edition - Pathologic stage from 05/28/2023: Stage IIB (pT3, pN0, cM0) 10/01/2023 - Immunotherapy Adjuvant pembrolizumab Past History Past medical, surgical, family, and social histories have been reviewed and updated with the patient today and are located elsewhere in the medical record. Current Outpatient Medications Medication Sig Acetaminophen 325 MG tablet Take 2 tablets by mouth every 4 hours as needed for Mild Pain. amLODIPine 10 MG tablet Take 1 tablet by mouth daily. Aspirin [address] tablet Take 1 tablet by mouth daily. Atorvastatin 40 MG tablet Take 1 tablet by mouth at bedtime. Clopidogrel 75 MG tablet Take 1 tablet by mouth daily. Docusate 100 MG capsule Take 1 capsule by mouth 2 times daily. Losartan 50 MG tablet Take 1 tablet by mouth daily. Meclizine 25 MG tablet Take 1 tablet by mouth 3 (three) times a day. Mirtazapine 15 MG tablet Take 1.5 tablets (22.5mg) every evening. nitroGLYCERIN 0.[address] 1 tablet under tongue Every 5 MINutes as needed. [place] 3 1000 MG capsule Take 2 capsules by mouth daily. Pantoprazole [address] tablet DR Take 1 tablet by mouth daily. Senna 17.2 MG tablet Take 1 tablet by mouth every 12 hours. traMADol 50 MG tablet Take 1 tablet by mouth every 4 hours as needed for Moderate Pain or Severe Pain for up to 7 days. Vitamin E 200 units capsule Take 1 capsule by mouth daily. Pembrolizumab (KEYTRUDA IV) by Intravenous route. Requested Prescriptions Signed Prescriptions Disp Refills Mirtazapine 15 MG tablet Sig: Take 1.5 tablets (22.5mg) every evening. Review of Systems Constitutional: (+) fatigue. Negative for fever. HENT: Negative for congestion, sore throat and sinus pain. Eyes: Negative for blurred vision or double vision. Cardiovascular: Negative for chest pain, palpitations and leg swelling. Respiratory: (+) LUCIO. (+) dry cough. Gastrointestinal: Negative for nausea, vomiting, diarrhea, constipation or trouble swallowing. Genitourinary: Negative for bladder incontinence, dysuria, and frequency. Musculoskeletal: Negative for myalgias, joint pain and falls. Neurological: (+) numbness/tingling to bottom of feet --> stable. (+) hx of migraine COBOS's, but none recently. Negative for dizziness, tremors, and focal weakness. Psychiatric: Negative for depression/anxiety. Skin: No rashes or lesions. Hematologic: No bleeding or excessive bruising. See Toxicity Assessment Sheet for more ROS. Physical Exam Vitals: 11/12/23 0939 BP: 140/64 Pulse: 76 Resp: 18 Temp: 97.1 degrees F (36.2 degrees C) TempSrc: Temporal SpO2: 93% Weight: 87.6 kg (193 lb 1.6 oz) Height: 1.753 m (5' 9) Wt Readings from Last 3 Encounters: 11/12/23 87.6 kg (193 lb 1.6 oz) 11/05/23 87.1 kg (192 lb) 10/22/23 87.2 kg (192 lb 3.2 oz) ECOG performance status: 1 General: A&O x 3. No acute distress. Eyes: PERRLA, EOMI, anicteric sclera, conjunctiva & lids normal. Neck: Supple, no rigidity, no JVD, no lymphadenopathy. Oropharynx: No erythema or lesions noted. Moist and pink mucus membranes. Respiratory: Clear to auscultation bilaterally with referred breath sounds to RUL. No crackles/rhonchi/wheezes. Cardiovascular: Regular rate and rhythm. No murmurs, rubs, clicks, or gallops. Abdomen: BS's X4 quadrants. Soft, non-tender, non-distended. Neurological: No focal deficits. CN II-XII grossly intact. Extremities: No peripheral edema. Skin: Skin color, turgor, and temperature normal. No rashes or lesions. Lymph Nodes: No cervical or supraclavicular adenopathy. Psychosocial: Appropriate to situation. 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 His restaging scan remains stable, so we will proceed with treatment as planned. He will RTC in 3 weeks for re-evaluation. CAD: S/p LHC and stent placement locally (most recently) last month. Continue follow up with local provider. Anxiety, Insomnia, and Decreased Appetite: Pt started on Mirtazapine last month - he feels it is helping, but would like to go up on the dose (to help further with sleep), so I will increase this to 22.5mg at bedtime for now. He was also referred to [facility] at that time and is scheduled for a visit on 11/26/23. He will return to clinic in 3 weeks with labs, scan, and infusion. Of course, in the interim, they were instructed to contact us with any questions, concerns, or any new or worsening symptoms. Pt seen independently of Dr. Tobias. [facility] this [facility] Instructions* Patient Instructions* Merly Moreno RN - 11/12/2023 9:20 AM EDT DECLAN Moreland, RN was your primary nurse for today's visit. APPOINTMENTS: We will do our best to schedule your infusion appointments after your clinic (MD or nurse practitioner) visit. On the days you do not have a clinic appointment, your infusion appointments will be scheduled prior to 9AM or after 2pm. Mid-day appointments are reserved for patients who need to be seenin the clinic. IMPORTANT: If you are having symptoms, side effects, or problems, please call our main number at [phone].You will speak with an Oncology Journeyman Sheet Metal Worker, who will take a message and forward it to our Triage Nurse. The Triage Nurse will return your call within 24 hours, assess your problem, consult with your medical team, and give direction on what should be done. We are not able to accommodate walk-in appointments in order to keep our clinic running in a more timely manner. This is to provide the best possible care we can to all our patients. If it is an emergency you will need to go to your local ER. Ask them to fax your records to us so that we can update our team, fax number [phone]. Please note there is a minimum two week turn around for all paperwork such as disability, FMLA, etc..please submit paperwork to our office as soon as possible. As a multidisciplinary team, you may be seen by a medical oncology fellow, resident, or student, inaddition to your provider (Doctor, Nurse practitioner, or Physician Club Former) during your clinic visit. If you receive a randomized patient satisfaction survey in the mail we would appreciate your feedback! We look forward to your positive comments as well as your suggestions for areas to help us improve. We are honored to be a part of your care team Thank you. [facility] History of Present illness Narrative* Virginia Jackson RN - 10/22/2023 11:30 AM EDT Pt. Seen in Med onc clinic. Labs and toxicity screen reviewed. Patient/family needs and learning style identified. See teaching flow sheets. Fall risk assessed. Clear for treatment. Report received from Brigid JIMENEZ. Petar Penny received Keytruda - completed [id number]. Patient to return for next treatment on 11/12/23. Patient's next appointment has been verified by RN. [facility] History of Present illness Narrative* Sarah Valentine APRN-COMMUNITY NURSE - 10/22/2023 9:30 AM EDT Images from the original note were not included. Chief Complaint Patient presents with Lung Cancer Other Isolated incidences of light headedness. Date of Visit: 10/22/2023 Diagnosis: Stage IIB (pT3N0) SCC History of Present Illness Mr. Petar Penny is a 78 y.o. male, former smoker, PMH significant for CAD, HTN, HLD now with stage IIB ([id number]), PD-L1 100%, keratinizing squamous cell carcinoma (intra-lobar mets) s/p robotic assisted right upper lobe lobectomy 05/28/23. Given high risk features (poorly differentiated, lymphovascular invasion) and high PD-L1, it was recommended he start adjuvant therapy with pembrolizumab per the PEARLS/Keynote -091 study. He began this treatment on 10/01/23. Interval History Mr. Penny presents for evaluation prior to C2 pembrolizumab. He reports he is feeling great any has no new concerns. He did report a one time episode of lightheadedness after his last treatment, but this resolved on its own. He does report he has episodes of hypoglycemia where he experiences similarfeelings. He does have an occasional cough that has been present since surgery. He denies vision change, headaches, hearing loss, fever, chills, night sweats, dysphagia, nausea, vomiting, rash, shortness of breath, chest pain, diarrhea, constipation, hematuria, dysuria, melena, hematochezia, changein appetite, unintentional weight loss, arthralgia, myalgia, or mood changes. Brief Oncology History Oncology History Squamous cell carcinoma of right lung 03/05/2023 Initial Diagnosis Outside Slides [id number] (03/05/23) A. Right upper lung mass, CT-guided core biopsy: Squamous cell carcinoma 04/04/2023 Pathology Adrenal Biopsy [place]: 04/28/2023 Procedure EBUS with FNA: level 7 was negative (not adequate) 11R was negative and adequate 4R was negative (not adequate) 05/28/2023 Surgery Robotic assisted thoracoscopic right upper lobe lobectomy 05/28/2023 - Cancer Staged Staging form: Lung, AJCC 8th Edition - Pathologic stage from 05/28/2023: Stage IIB (pT3, pN0, cM0) 10/01/2023 - Immunotherapy Adjuvant pembrolizumab Past History Past medical, surgical, family, and social histories have been reviewed and updated with the patient today and are located elsewhere in the medical record. Current Outpatient Medications Medication Sig Acetaminophen 325 MG tablet Take 2 tablets by mouth every 4 hours as needed for Mild Pain. amLODIPine 10 MG tablet Take 1 tablet by mouth daily. Aspirin [address] tablet Take 1 tablet by mouth daily. Atorvastatin 40 MG tablet Take 1 tablet by mouth at bedtime. Clopidogrel 75 MG tablet Take 1 tablet by mouth daily. Docusate 100 MG capsule Take 1 capsule by mouth 2 times daily. Losartan 50 MG tablet Take 1 tablet by mouth daily. mirtazapine 15 MG tablet Take 1/2 tab (7.5 mg) in early evening x 7 days then increase to 1 tab (15mg) in early evening thereafter. nitroGLYCERIN 0.[address] 1 tablet under tongue Every 5 MINutes as needed. [place] 3 1000 MG capsule Take 2 capsules by mouth daily. Pantoprazole [address] tablet DR Take 1 tablet by mouth daily. Pembrolizumab (KEYTRUDA IV) by Intravenous route. Senna 17.2 MG tablet Take 1 tablet by mouth every 12 hours. Vitamin E 200 units capsule Take 1 capsule by mouth daily. traMADol 50 MG tablet Take 1 tablet by mouth every 4 hours as needed for Moderate Pain or Severe Pain for up to 7 days. Requested Prescriptions No prescriptions requested or ordered in this encounter Review of Systems Constitutional: Negative for fever. HENT: Negative for congestion, sore throat and sinus pain. Eyes: Negative for blurred vision or double vision. Cardiovascular: Negative for chest pain, palpitations and leg swelling. Respiratory: Positive for occasional cough. Gastrointestinal: Negative for nausea, vomiting, diarrhea, constipation or trouble swallowing. Genitourinary: Negative for bladder incontinence, dysuria, and frequency. Musculoskeletal: Negative for myalgias,joint pain and falls. Neurological: Negative for dizziness, tingling, tremors, sensory change, focal weakness and headaches. Psychiatric: Negative for depression and memory loss. The patient is not nervous/anxious and does not have insomnia. Skin: No rashes or lesions. Hematologic: No bleeding or excessive bruising. See Toxicity Assessment Sheet for more ROS. Physical Exam Vitals: 10/22/23 0926 BP: 149/72 Pulse: 72 Resp: 16 Temp: 97.5 degrees F (36.4 degrees C) TempSrc: Oral SpO2: 96% Weight: 87.2 kg (192 lb 3.2 oz) Height: 1.753 m (5' 9) Wt Readings from Last 3 Encounters: 10/22/23 87.2 kg (192 lb 3.2 oz) 10/01/23 86.6 kg (191 lb) 08/20/23 85.8 kg (189 lb 3.2 oz) ECOG performance status: 1 General: A&O x 3. No acute distress. Eyes: PERRLA, EOMI, anicteric sclera, conjunctiva & lids normal. Neck: Supple, no rigidity, no JVD, no lymphadenopathy. Oropharynx: No erythema or lesions noted. Moist and pink mucus membranes. Respiratory: Clear to auscultation bilaterally. No crackles/rhonchi/wheezes. Cardiovascular: Regular rate and rhythm. No murmurs, rubs, clicks, or gallops. Abdomen: BS's X4 quadrants. Soft, non-tender, non-distended. No organomegaly noted. Neurological: No focal deficits. CN II-XII grossly intact. Extremities: No peripheral edema. Skin: Skin color, turgor, and temperature normal. No rashes or lesions. Lymph Nodes: No cervical, axillary or supraclavicular adenopathy. Psychosocial: Appropriate. Labs and Studies Labs reviewed CBC Recent Labs 10/22/23 0925 WBC 7.78 HGB 15.8 PLATELET 276 CHEMISTRIES Recent Labs 10/22/23 0925 SODIUM 138 POTASSIUM 4.1 CHLORIDE 103 BUN 10 CREATSERUM 1.06 CALCIUM 9.5 CO2 29 GLUCOSE 103* LFTS Recent Labs 10/22/23 0925 BILITOTAL 1.0 AST 18 ALT 17 ALKPHOS 77 ALBUMIN 4.5 Lab Results Component Value Date TSH 1.889 10/01/2023 T4FREE 1.40 10/01/2023 Assessment and Plan Stage IIB SCC: Pt presents for C2 of adjuvant Pembrolizumab. His PS and labwork are suitable for treatment today. He will RTC in 3 weeks for re-evaluation with CT Chest. CAD: S/p LHC and stent placement locally 1-2 months ago. Continue follow up with local provider. Anxiety, insomnia, decreased appetite: Pt started on Mirtazapine at last visit. He was also referred to [facility] at that time. Lightheadedness: Unclear etiology, however suspect hypoglycemia. Encouraged patient to eat after infusion. He will return to clinic in 3 weeks with labs, scan, and infusion. Of course, in the interim, they were instructed to contact us with any questions, concerns, or any new or worsening symptoms. JOHN Nobles [facility] Instructions* Patient Instructions* Eloina Garcia RN - 10/22/2023 9:30 AM EDT DECLAN Penn, RN, OCN was your primary nurse for today's visit. IMPORTANT: If you are having symptoms, side effects, or problems, please call our main number at [phone]. You will speak with an Oncology Journeyman Sheet Metal Worker, who will take a message and forward it to ourTriage Nurse. The Triage Nurse will return your call within 24 hours, assess your problem, consult with your medical team, and give direction on what should be done. We are not able to accommodate walk-in appointments in order to keep our clinic running in a more timely manner. This is to provide the best possible care we can to all our patients. If it is an emergency you will need to go to your local ER. Ask them to fax your records to us so that we can update our team, fax number [phone]. Results: Please be aware that most lab and imaging results are being released to [facility]. These can sometimes be confusing or concerning to read. Please know that your care team will review/discuss resultswith you at your follow up appointment. Any questions or concerns can be addressed at that time. Appointments: We will do our best to schedule your infusion appointments after your clinic (MD or nurse practitioner) visit. On the days you do not have a clinic appointment, your infusion appointments will be scheduled prior to 9AM or after 2pm. Mid-day appointments are reserved for patients who need to be seen in the clinic. Thank you for understanding. As a multidisciplinary team, you may be seen by a medical oncology fellow, resident, or student, inaddition to your provider (Doctor, Nurse practitioner, or Physician Club Former) during your clinic visit. Please note there is a minimum two week turn around for all paperwork such as disability, FMLA, etc..please submit paperwork to our office as soon as possible. If you have MyChart, you will be receiving an Oncology Distress Screening. This screening is sent to all [facility] patients which includes patients with cancer diagnoses and also non-cancer diagnoses to assess any concerns that you may have. This questionnaire is optional. Once the screening questions are completed, we will review your answers in a timely manner. If you have an urgent matter, please contact your provider right away. Thank you If you receive a randomized patient satisfaction survey in the mail we would appreciate your feedback! We look forward to your positive comments as well as areas to improve. We are honored to be a part of your care team. Thank you. documented in this [facility]03-06-2024 History of Present illness Narrative* Mary Ann Sosa RN - 10/01/2023 1:30 PM EST Report given by Brigid at 1145. Patient to BSH2 chemo today for C1 D1. Patient arrived via walking accompanied by family. A&O x3, no complaints / concerns. Labs completed prior. Assessment, VS complete. Patient arrival sent to pharmacy. Patient tolerated treatment today without complaint / concern. Patient left the unit via walking accompanied by family. AVS reviewed, states understanding of next appointments. [facility] History of Present illness Narrative* Polina Mera APRN-COMMUNITY NURSE - 10/01/2023 11:20 AM EST Images from the original note were not included. Chief Complaint Patient presents with Lung Cancer Cough Productive with mucus since May 2023. Other Experiencing anxiety and difficulty sleeping. Patient to refill Mirtazapine. Date of Visit: 10/01/2023 Diagnosis: IIB (pT3N0) SCC Interval History Mr. Petar Penny is a 78 y.o. 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 Given high risk features (poorly differentiated, lymphovascular invasion) and high PD-L1 it was recommended he start adjuvant therapy with pembrolizumab per the PEARLS/Keynote -091 study. He presents today for evaluation prior to cycle 1. He is accompanied by his daughter Hoa. He underwent LHC and stent placement 2 weeks ago at [facility]. He endorses stable dyspnea with moderate exertion. He walks every other day onthe treadmill and is back up to 8 min. Ongoing productive cough which has been present since May 2023. He has anxiety, decreased appetite, and difficulty sleeping. He only sleeps 5-6 hours a night. He has not started mirtazapine. He is hearing impaired and a hearing aid needs repaired. 2 bowel movements a day is normal for him. Denies fever, swelling, nausea, or neurologic changes. Brief Oncology History Oncology History Squamous cell carcinoma of right lung 03/05/2023 Initial Diagnosis Outside Slides [id number] (03/05/23) A. Right upper lung mass, CT-guided core biopsy: Squamous cell carcinoma 04/04/2023 Pathology Adrenal Biopsy Falguni: 04/28/2023 Procedure EBUS with FNA: level 7 was negative (not adequate) 11R was negative and adequate 4R was negative (not adequate) 05/28/2023 Surgery Robotic assisted thoracoscopic right upper lobe lobectomy 05/28/2023 - Cancer Staged Staging form: Lung, AJCC 8th Edition - Pathologic stage from 05/28/2023: Stage IIB (pT3, pN0, cM0) 10/01/2023 - Immunotherapy Adjuvant pembrolizumab Past History Past medical, surgical, family, and social histories have been reviewed and updated with the patient today and are located elsewhere in the medical record. Current Outpatient Medications Medication Sig Acetaminophen 325 MG tablet Take 2 tablets by mouth every 4 hours as needed for Mild Pain. amLODIPine 10 MG tablet Take 1 tablet by mouth daily. Aspirin [address] tablet Take 1 tablet by mouth daily. Atorvastatin 40 MG tablet Take 1 tablet by mouth at bedtime. Clopidogrel 75 MG tablet Take 1 tablet by mouth daily. Docusate 100 MG capsule Take 1 capsule by mouth 2 times daily. Losartan 50 MG tablet Take 1 tablet by mouth daily. nitroGLYCERIN 0.[address] 1 tablet under tongue Every 5 MINutes as needed. [place] 3 1000 MG capsule Take 2 capsules by mouth daily. Pantoprazole [address] tablet DR Take 1 tablet by mouth daily. Senna 17.2 MG tablet Take 1 tablet by mouth every 12 hours. Vitamin E 200 units capsule Take 1 capsule by mouth daily. mirtazapine 7.5 MG tablet Take 1 tablet by mouth every evening at 6 PM. X 7 days then increase to 2tabs. (Patient not taking: Reported on 10/01/2023) traMADol 50 MG tablet Take 1 tablet by mouth every 4 hours as needed for Moderate Pain or Severe Pain for up to 7 days. Requested Prescriptions No prescriptions requested or ordered in this encounter He is allergic to penicillins. Review of Systems Constitutional: Positive for appetite change, fatigue and unexpected weight change. Negative for fever. HENT: Negative for mouth sores and tinnitus. Respiratory: Positive for cough and shortness of breath. Negative for hemoptysis. Cardiovascular: Negative for chest pain, leg swelling and palpitations. Gastrointestinal: Negative for constipation, diarrhea, nausea and vomiting. Musculoskeletal: Negative. Skin: Negative for rash. Neurological: Negative for dizziness, headaches and numbness. Psychiatric/Behavioral: Negative for depression. Physical Examination Vital Signs: BP 130/61 (BP Location: Right arm, BP Position: Sitting) Pulse 73 Temp 97.6 F (36.4 C) (Oral) Resp 16 Ht 1.753 m (5' 9) Wt 86.6 kg (191 lb) SpO2 95% BMI 28.21 kg/m Smoking Status Former Wt Readings from Last 3 Encounters: 10/01/23 86.6 kg (191 lb) 08/20/23 85.8 kg (189 lb 3.2 oz) 06/17/23 87.8 kg (193 lb 9.6 oz) ECOG performance status: 1 Constitutional: Well developed/well nourished male alert and oriented in no acute distress. Head: Normocephalic, without obvious abnormality, atraumatic Eyes: No scleral icterus. EOMI. Neck: no masses, symmetrical, trachea midline. Respiratory: Normal effort. Clear to auscultation: A&P bilaterally, no crackles/rhonchi/wheezes Cardiovascular: Normal S1/S2, regular rate and rhythm, no murmurs, gallops, rubs. No peripheral edema bilaterally Abdomen: soft, non-tender. Bowel sounds normal. No masses, no appreciable HSM Musculoskeletal: extremities normal, atraumatic, no digital cyanosis or clubbing. Normal gait and station. Skin: Skin color, texture, turgor normal. No rashes or lesions. Lymph nodes: Cervical and supraclavicular nodes normal. Neurologic: Cranial nerves grossly intact. Sensation to touch intact and symmetric. Psychosocial: Affect appropriate for situation. Alert and oriented to person, place and time. Labs and Studies Labs reviewed Lab Results Component Value Date WBC 8.04 10/01/2023 HGB 15.4 10/01/2023 HCT 43.5 10/01/2023 PLATELET 233 10/01/2023 MCV 89.5 10/01/2023 Lab Results Component Value Date SBANS 5.36 10/01/2023 SBANS = ANC Lab Results Component Value Date SODIUM 136 10/01/2023 POTASSIUM 4.2 10/01/2023 CHLORIDE 102 10/01/2023 CO2 28 10/01/2023 BUN 8 10/01/2023 CREATSERUM 0.99 10/01/2023 Lab Results Component Value Date CALCIUM 9.6 10/01/2023 Lab Results Component Value Date ALT 18 10/01/2023 AST 16 10/01/2023 ALKPHOS 67 10/01/2023 BILITOTAL 0.9 10/01/2023 Lab Results Component Value Date TSH 1.889 10/01/2023 T4FREE 1.40 10/01/2023 Imaging No imaging to review today. Assessment and Plan Mr. Penny is a pleasant 78 y.o. male former smoker, PMH significant for CAD, HTN, HLD now with stageIIB ([id number]), PD-L1 100%, keratinizing squamous cell carcinoma (intra-lobar mets) s/p robotic assisted right upper lobe lobectomy 05/28/23. Given high risk features (poorly differentiated, lymphovascular invasion) and high PD-L1 it was recommended he start adjuvant therapy with pembrolizumab per the PEARLS/Keynote -091 study. Stage IIB SCC: Labs, VS, and PS reviewed. He's doing well. I reviewed the rationale, schedule and side effects of pembrolizumab. Side effects include, but are not limited to, fatigue, rash, pruritus,myalgia, arthralgia, colitis, pneumonitis, endocrinopathies, hepatitis, pancreatitis, and neuritis.He will proceed with cycle 1. He currently has chest CT with T/S in November. CAD: s/p LHC and stent placement locally 2 weeks ago. Continue follow up with local provider. Anxiety, insomnia, decreased appetite: he was instructed to start mirtazapine. 7.5 mg early eveningx 7 days then increase to 15 mg daily. I also referred him to psychosocial oncology. He will return to clinic in 3 weeks with labs and infusion. Of course, in the interim, they were instructed to contact us with any questions, concerns, or any new or worsening symptoms. The patient was seen independent of Dr. Tobias. JOHN La documented in this [facility]Tri[facility] Instructions* Patient Instructions* JOHN La - 10/01/2023 11:20 AM EST Follow-up Instructions Start your mirtazapine take 1 tab (7.5 mg) in the evening daily x 7 days then increase to 2 tabs (15 mg) in the evening daily DECLAN Penn, RN, OCN was your primary nurse for today's visit. IMPORTANT: If you are having symptoms, side effects, or problems, please call our main number at [phone]. You will speak with an Oncology Journeyman Sheet Metal Worker, who will take a message and forward it to ouriage Nurse. The Triage Nurse will return your call within 24 hours, assess your problem, consult with your medical team, and give direction on what should be done. We are not able to accommodate walk-in appointments in order to keep our clinic running in a more timely manner. This is to provide the best possible care we can to all our patients. If it is an emergency you will need to go to your local ER. Ask them to fax your records to us so that we can update our team, fax number [phone]. Results: Please be aware that most lab and imaging results are being [facility]. These can sometimes be confusing or concerning to read. Please know that your care team will review/discuss resultswith you at your follow up appointment. Any questions or concerns can be addressed at that time. Appointments: We will do our best to schedule your infusion appointments after your clinic (MD or nurse practitioner) visit. On the days you do not have a clinic appointment, your infusion appointments will be scheduled prior to 9AM or after 2pm. Mid-day appointments are reserved for patients who need to be seen in the clinic. Thank you for understanding. As a multidisciplinary team, you may be seen by a medical oncology fellow, resident, or student, inaddition to your provider (Doctor, Nurse practitioner, or Physician Club Former) during your clinic visit. Please note there is a minimum two week turn around for all paperwork such as disability, FMLA, etc..please submit paperwork to our office as soon as possible. If you have MyChart, you will be receiving an Oncology Distress Screening. This screening is sent to all [facility] patients which includes patients with cancer diagnoses and also non-cancer diagnoses to assess any concerns that you may have. This questionnaire is optional. Once the screening questions are completed, we will review your answers in a timely manner. If you have an urgent matter, please contact your provider right away. Thank you If you receive a randomized patient satisfaction survey in the mail we would appreciate your feedback! We look forward to your positive comments as well as areas to improve. We are honored to be a part of your care team. Thank you. * Attachments The following attachments cannot be sent through Care Everywhere. * Diarrhea: How to Take Loperamide (The Kassie) (Macedonian) documented in this encounterTri[facility]02-15-2024 History and physical note Author Braden Hammonds [facility] September 11, 2023 4:40pm Note Date/Time September 09, 2023 9:38am [facility] Medical Records Department [address] [place] [id number] History & Physical Exam 09/09/23 0938 MR#: [id number] Acct: [id number] Name: PETAR PENNY Rep #:[id number] : 1945 78 From: Braden Hammonds MD PCP: Dr. Makayla Peters MD Status:P RE [facility] Location: [facility] History and Physical Date of Admission: 09/18/23 PETAR PENNY, is a 78 year old white male who presents for a cardiac catheterization following an abnormal stress test. He has a history of coronary artery disease with stenting to his RCA in 2012, stenting to his proximal LAD and mid RCA in 2013, and PTCA/JOB of proximal LAD ISR on 07/08/2018. This is superimposed upon a history of hyperlipidemia and hypertension and VANDANA currentlyusing a CPAP device. He states that in December, he was walking across his lawn and got short of breath, and felt like he was going to pass out. He states that he went to [facility], and was then transferred to [facility] in [place]. He underwent a pacemaker at that time. He also underwent an echocardiogram which demonstrated an ejectionfraction of 50-55%. His stress test at that time was negative for ischemia. Patient states that he was diagnosed with lung cancer 2 months ago. He is scheduled for surgery the beginning of May. From a cardiac standpoint, the patient is doing well. He denies any palpitations, chest pain, pressure or heaviness. He denies SOB, Orthopnea, and PND. He does acknowledge a cough. He does not have bleeding issues; no blood inurine, stool or nosebleeds. He denies any decrease in energy level, myalgias, orclaudication. He does not have edema, or sudden weight gain. He does acknowledge lightheadedness with quick positional changes. He denies dizziness,syncopal or near syncopal episodes, and headaches. Intake Vital Signs See EMR Allergies See EMR Medications See EMR FORMERLY [facility], [facility]1983 Medical History Abdominal aortic aneurysm without rupture Acquired left ventricular hypertrophy Alcohol abuse 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 Coronary artery disease CPAP (continuous positive airway pressure) dependence CVA (cerebral vascular accident) Diastolic dysfunction Essential hypertension Former smoker GERD (gastroesophageal reflux disease) Headache Hearing loss, left Hearing loss, right History of TIA Hyperlipidemia Hypertension Hypertension Intractable nausea and vomiting Myocardial infarct Old myocardial infarction VANDANA (obstructive sleep apnea) Pacemaker Presence of permanent cardiac pacemaker Pure hypercholesterolemia PVD (peripheral vascular disease) Right bundle-branch block Second degree AV block, Mobitz type I Sleep apnea Wears hearing aid in both ears Surgical History History of coronary artery stent placement S/P coronary artery stent placement (~07/08/18) Family History Brother DiabetesBrother HypertensionBrother Cancer esophagealBrother Hip fractureSister Diabetes Kidney disease kidney failureSister Diabetes CAD (coronary artery disease) Hx of CABG Obesity HyperlipidemiaFather CAD (coronary artery disease) Myocardial infarction CHF (congestive heart failure)Daughter MigraineMother Cancer Lung cancer Myocardial infarction Social History Smoking Status: Former smoker how long ago did patient quit smokin alcohol intake: former year quit: 1992 substance use type: does not use caffeine: No what type of physical activity do you participate in: bicycling and other details: tredmill frequency: 3-4 times per week duration: 30-45 minutes/day seatbelt use: always do you feel safe at home: Yes ROS Const Const: Negative for fatigue, weakness, fever(s), headache(s), chills, frequent falls, weight gain or weight loss Eyes Eyes: Negative for blind spots, loss of peripheral vision, transient loss of vision, blurry vision, change in vision, double vision, floaters or tunnel vision ENT ENT: Negative for headache(s), dizziness, Nosebleed/epistaxis, balance problems or neck pain Cardio Chest Pain: No Palpitations: No Edema: None Muscle aches with walking: None Resp Respiratory: Positive for Cough; Negative for SOB with activity, SOB at rest or SOB orthopnea\SOB lying down GI GI: Negative nausea, vomiting, heartburn, bloating, vomiting blood/hematemesis, bright, red blood in stools or black,tarry stools Musc Musc: Negative for muscle aches/ myalgia, muscle weakness, joint pain or balanceproblems Neuro Neuro: Positive for lightheadedness (occasional with quick positional changes); Negative for dizziness, near syncope, syncope, orthostatic symptoms, frequent falls, headache(s), weakness, blurry vision or double vision Scotty Hematologic/Lymphatic: Negative for easy bleeding or easy bruising Endo Endo: Negative for fatigue Cardiology Exam Const Appearance: cooperative, healthy appearing, comfortable, no acute distress, welldeveloped and well groomed Nutritional Appearance: well nourished and overweight Orientation: alert, awake and oriented x3 Head Head: normal to inspection Ears: hearing grossly normal bilaterally Nose: external nose normal Face and Sinus: face symmetric Eyes Eyelids: eyelids normal Conjunctivae: conjunctivae normal Pupils: PERRL EOM: EOM intact bilaterally Neck Neck: normal visual inspection, full ROM and no JVD Carotids: normal carotid upstroke Chest Chest inspection: normal inspection of the chest, symmetric chest movement, Pacemaker/ICD Yes left pectoral incision and normal respiratory effort; Negative cough Auscultation: Bilateral: Clear to Auscultation Cardio Rate: regular rate Rhythm: regular rhythm Heart sounds: S1 normal and S2 normal GI GI: normal to inspection, soft and bowel sounds present Neuro General: patient alert, patient awake, patient oriented x3, gait normal and moves all extremities Skin Skin: no rashes or lesions noted Extremities Pulses: Normal: Right Posterior Tibial Pulse, Left Posterior Tibial Pulse, RightRadial Pulse and Left Radial Pulse Lower Extremity Edema: None: Bilateral Psych Psychological: normal affect Supplemental Info Supplemental Information Echocardiogram from 10/18/2014: Interpretation Summary The study was technically difficult. Left ventricular systolic function is normal. The estimated ejection fraction is 60 %. Mild concentric left ventricular hypertrophy. Trivial mitral valve insufficiency. Trivial tricuspid valve insufficiency. Mild focal aortic valve thickening. Bubble contrast study negative for right to left interatrial shunt. No obvious intracardiac mass lesion / thrombus identified. Consider further evaluation for cardiac source of embolus with ASHISH if clinicallyindicated. Heart catheterization from 07/08/2018: CONCLUSIONS Elevated Left Ventricular End Diastolic Pressure left ventricula regional wall motion abnormalities with overall preserved LV systolic function LVEF: by LV gram 55 % LAD: stent: patent with eccentric 85% instent restenosis RCA: near the termination of the stent: hazy 50% stenosis RECOMMENDATIONS Medical therapy Risk factor modification Medical therapy Referred for immediate PCI CORONARY ANGIOGRAPHY DOMINANCE: Right Dominant LEFT HEART ASSESSMENT Left Ventricular Ejection Fraction: by LV Gram 55 % Inferior Mid: severe hypokinesis to akinesis Elevated Left Ventricular End Diastolic Pressure LVEDP: 26 mmHg LEFT MAIN: Angiographically normal LEFT ANTERIOR DECENDING ARTERY: PROX LAD: Previously placed stent has an instent eccenctric 85 % restenosis MID LAD: s/p the take off of DX2 there is 25% eccentric appearing stenosis DIAGONAL 1: Small Caliber Vessel: Proximal - 25-50 % Stenosis CIRCUMFLEX ARTERY: PROX CIRC: mild luminal irregularities MID CIRC: diffuse: eccentric: 10-25 % Stenosis RIGHT CORONARY ARTERY: mid to distal stents: patent with 10-25% eccentric appearing stenosis near the termination of the distal stent: hazy 50% stenosis PROX RCA: Mild luminal irregularities VALVE FINDINGS: Normal Aortic Valve function Normal Mitral Valve function AORTIC ROOT: Angiographically normal Cardiac intervention from 07/08/2018: CONCLUSIONS Successful PTCA/JOB of proximal LAD ISR utilizing a 2.5 x 10 Angiosculpt x 2, followed with a 3.0 x 16 Promus Syergy, post dilated with a 3.5 and 3.75 x 8 NC balloon; 85%-->0%, no dissection. Pt had identical Left arm and jaw pain with inflation. Medical management of complex mid LAD/DIAG bifurcating lesion unlessor until pt has recurrent angina after maximal medical therapy. RECOMMENDATIONS Highly recommend quitting all tobacco products Follow up with primary robot programmer Risk factor modification ASA Indefinitley Plavix for at least 12 months Routine post interventional care Refer for Outpatient Cardiac Rehab Manual sheath removal per protocol Follow up with Dr. Lazo Successful Mynx closure device. Medical management of complex mid LAD/DIAG bifurcating lesion, as well as distalRCA ISR unless or until pt has recurrent angina after maximal medical therapy. D/w Dr Desai. Carotid duplex ultrasound from 12/12/2020: Interpretation Summary Irregular plaque at the proximal right internal carotid artery with less than 50% stenosis Less than 50% stenosis right external carotid artery Irregular calcific plaque at the proximal left internal carotid artery with 50 to 69% stenosis Less than 50% stenosis left external carotid artery Patent and antegrade vertebral arteries bilaterally No change from the previous examination of November 28, 2016 Abdominal aortic ultrasound 12-25-2021: Interpretation Summary Distal abdominal aortic aneurysm measuring 3.67 x 3.94 cm in diameter Normal aortic flow velocity Left common iliac artery 0.82 x 0.85 cm in diameter which is normal Right common iliac 0.63 x 0.8 cm diameter which is normal. Flow velocity slightly elevated within the right common iliac suggesting possible occlusive disease. Stress Test 07/2023: Pharmacologic myocardial perfusion stress test. 78-year-old male with a history of coronary disease status post PCI of the LAD mid right coronary artery in 2018. Resting EKG demonstrates sinus rhythm with a rate of 70 bpm. Resting blood pressure is 150/78 mmHg. 0.4 mg of regadenoson was infused per usual protocol followed by rapid intravenous saline flush injection. Continuous EKG monitoringwas performed. The maximum heart rate was 85 bpm which was 59% of max impacted heart rate the maximum workload was 1 metabolic equivalent. At rest there were no ST or T wave changes noted to suggest ischemia and at peak infusion nonspecific ST changes were noted which did not meet the criteria for ischemia. No clinical angina is noted. The final blood pressure was 130/60 mmHg. Myocardial perfusion protocol. 11.8 mCi of technetium 99m sestamibi was injected at rest. 0.4 mg of regadenoson was infused per usual protocol. At peak infusion 36 mCi of technetium 99m sestamibi was injected stress images were obtained stress and rest images were reconstructed and compared in the short axis vertical long and horizontal long axis. Gated images were also obtained. Perfusion SPECT analysis: Review of the stress images demonstrate normal uptake of tracer noted in all areas of the myocardium except for the inferolateral wall which has perfusion defect as well as a small defect noted in the apex. The resting images similar demonstrated improved uptake of tracer noted in the apex with a persistent defect noted in the inferolateral wall. 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 Gated SPECT analysis: The gated ejection fraction is 62%. Conclusion: Abnormal pharmacologic myocardial perfusion stress test. Apical ischemia noted Inferolateral infarct present Preserved ejection fraction. Assessment and Plan Assessment and Plan (1) History of coronary artery stent placement: Status: Chronic Comment: PTCA OF RCA 02/06; PTCA of proximal LAD & mid RCA 09/10; PTCA/JOB of proximal LAD ISR on 07/08/2018; Plan: Patient has a history of coronary artery disease with stent placement. His mostrecent stress test from 01/11/2023 was negative for ischemia. His remote report received on 08/01/2023 demonstrated nonsustained ventricular tachycardia for 9 seconds at a maximum heart rate of 176 bpm. He underwent a stress test on 08/19/2023 which was abnormal. He will proceed with a cardiac catheterization to further assess this. Depending on results, further recommendations. (2) Abnormal stress Test: Will proceed with cardiac catheterization. 09/11/23 1640 <Electronically signed by Braden Hammonds MD> Cosigner Signature (if applicable): 09/09/23 0947 <Electronically signed by Litzy WELCH> CC: YURI Woodard; Dr. Braden Hammonds MD; Dr. Makayla Peters MD~ Signed [facility] Work Phone: [phone] 177-912511-03-2023 Nurse Note* Nursing Notes - Abby Banks RN - 05/30/2023 12:35 PM EDT AVS reviewed with patient. All questions answered. [facility]11-03-2023 Miscellaneous Notes* Nursing Notes - Abby Banks RN - 05/30/2023 12:35 PM EDT AVS reviewed with patient. All questions answered. * Nursing Notes - Amarilys Valentine RN - 05/30/2023 10:39 AM EDT 05/30/23 1038 Referral Information Arrived From operating room Final Discharge Planning Discharge Disposition Home CM/SW AVS Portion Completed Yes Plan Plan Anticipating discharge to home today Patient/Family In Agreement With Plan yes Plan Comments Daughter will provide transportation home. Transport Request Mode of Transfer Private Vehicle [facility] PCRM Discharge Note Patient discussed in medical rounds for discharge to home today pending post chest tube pull CXR. PCRM met with the patient to discuss final discharge plan. Services for Discharge N/A Consults with Final Discharge Recommendations N/A Lines/Tubes/Drains/Wounds/Supplies Chest tube removed this morning. Patient to keep dry dressing over the chest tube insertion site and cannot shower for 48 hours after the chest tube is pulled. Surgical incisions to be left open to air. Patient has no other lines/tubes/drains/wounds/supplies upon discharge. Medications No barriers anticipated in [...] Imaging Rg [address] [place] [address] [facility] [id number] Follow up on 06/17/2023 arrive for your walk in chest x-ray 30 min before your appt Division of Thoracic Surgery at [facility] [address] [place] [id number] Follow up on 06/17/2023 Post-op appointment with Dr. Valenzuela at 12:15 pm Was Ambulatory PCRM added [...] and assistance is needed, please page the extrusion utility worker PCRM at [phone]. DECLAN Harris, RN, ACM-RN Patient Care Thinner Sprayer * Nursing Notes - Amarilys Valentine RN - 05/29/2023 10:44 AM EDT 05/29/23 1041 Referral Information Arrived From operating room Readmission Information Was patient readmitted within 30 Days? Yes Information Source Information Source patient Information Source Name Petar (patient) Information Source Number See demographics Outpatient Providers Outpatient Providers Updated In IHIS Yes Contact Information Advertising Dispatch Clerk/SW Added to Care Team Yes This Human Relations Teacher is Primary Advertising Dispatch Clerk/SW Yes Advertising Dispatch Clerk Name Amarilys Gomez Advertising Dispatch Clerk's Social Work Contact Name Joana Armstrong Pattern Grader Supervisor's Living Environment Lives With spouse Living Arrangements [...] Retired Employment/Financial Concerns no Source Of Income pension/custodial;social security Financial Concerns none Insurance Medical Insurance Verified Yes Prescription Coverage Yes Pharmacy updated in IHIS Yes Initial Discharge Planning Home Care Services ([facility] [place]) No Home Therapies ([employer]) None DME ([employer]) Straight cane Medical Supplies ([place]) Blood Pressure Monitor Patient Goal for Discharge [...] needs/concerns at this time PCRM Initial Assessment PCRM and THOMAS Armstrong met with [facility] to complete the initial assessment. Explained role and function of PCRM in multidisciplinary team. Contact number provided for questions. Demographic information reviewed with patient/family and confirmed as correct. Reason for Admission: 78 y.o. male former smoker with history of AAA, AR (s/p stent placement x 4 on plavix), AV block s/p pacemaker placement, TIA, VANDANA who was initially referred by Dr. Tobias for surgical evaluation of right upper lobe squamous cell carcinoma. To review, he underwent a biopsy ofthe right upper lobe in [place] which demonstrated NSCLC favoring squamous cell carcinoma. PET scanon 03/18/23 demonstrated SUV 13.3 in the right upper lobe and 2.9 in the left adrenal gland. He underwent adrenal biopsy on 04/04/23, which was benign. He had an EBUS with FNA on 04/28/[address] Valenzuela; level 7 was negative (not adequate), 11R [...] Planned DECLAN Harris, RN, ACM-RN Patient Care Thinner Sprayer * Plan of Care - Raquel Singh RN - 05/29/2023 4:12 AM EDT No acute change noted from previous assessment at this time unless otherwise indicated on the flow sheet and/or notes. Problem: Patient Care Overview Goal: Plan of Care Review Outcome: Ongoing * Nursing Notes - Jagruti Couch RN - 05/28/2023 6:50 PM EDT On admission to [facility], from PACU a dual RN initial assessment of skin condition was performed by Jagruti Couch RN and Irene Sesay RN. Skin Assessment: Skin within defined limits:Yes. Right sided chest tube intact w/ +1 air leak, incisions with dermabond. Maradiaga in place. 2 PIV intact. Alfredito Score: 23 LDA Added:No Jagruti Couch RN * Op Note - Alessandra Mace DO - 05/28/2023 12:02 PM EDT Thoracic Surgery Operative Report Date: 05/28/23 Preoperative Diagnosis: right upper lobe squamous cell carcinoma Postoperative Diagnosis: right upper lobe squamous cell carcinoma Procedures Performed: Flexible Bronchoscopy Robotic-Assisted Thoracoscopic Right Upper Lobectomy Right Thoracoscopic Mediastinal and regional Lymph Node Dissection Intercostal Nerve Blocks. Surgeon: Jake Valenzuela M.D. Club Former: Alessandra Mace DO (fellow), Meron Stahl PA-C. Anesthesia Type: General Anesthesia. Estimated Blood Loss: 50 mL. Intravenous Fluid: See Anesthesia Record. Specimens: ID Type Source Tests Collected by Time Destination 1 : Level 8 lymph node #1 Permanent SURG PATH SURG PATH REQUEST Jake Valenzuela MD 05/28/2023 0833 2 : Level 8 lymph node #2 Permanent SURG PATH SURG PATH REQUEST Jake Valenzuela MD 05/28/2023 0834 3 : Level 8 lymph node #3 Permanent SURG PATH SURG PATH REQUEST Jake Valenzuela MD 05/28/2023 0834 4 : Level 7 lymph node #1 Permanent SURG PATH SURG PATH REQUEST Jake Valenzuela MD 05/28/2023 0853 5 : Level 7 lymph node #2 Permanent SURG PATH SURG PATH REQUEST Jake Valenzuela MD 05/28/2023 0853 6 : Level 7 lymph node #3 Permanent SURG PATH SURG PATH REQUEST Jake Valenzuela MD 05/28/2023 0853 7 : Level 7 lymph node #4 Permanent SURG PATH SURG PATH REQUEST Jake Valenzuela MD 05/28/2023 0853 8 : Level 7 lymph node #5 Permanent SURG PATH SURG PATH REQUEST Jake Valenzuela MD 05/28/2023 0853 9 : Level 11R lymph node #1 Permanent SURG PATH SURG PATH REQUEST Jake Valenzuela MD 05/28/2023 0915 10 : Level 10R lymph node #1 Permanent SURG PATH SURG PATH REQUEST Jake Valenzuela MD 05/28/2023 0935 11 : Level 10R lymph node #2 Permanent SURG PATH SURG PATH REQUEST Jake Valenzuela MD 05/28/2023 0935 12 : Level 10R lymph node #3 Permanent SURG PATH SURG PATH REQUEST Jake Valenzuela MD 05/28/2023 0935 13 : Level 10R lymph node #4 Permanent SURG PATH SURG PATH REQUEST Jake Valenzuela MD 05/28/2023 0940 14 : Level 10R lymph node #5 Permanent SURG PATH SURG PATH REQUEST Jake Valenzuela MD 05/28/2023 0946 15 : Level 4 lymph node #1 Permanent SURG PATH SURG PATH REQUEST Jake Valenzuela MD 05/28/2023 1008 16 : Level 4 lymph node #2 Permanent SURG PATH SURG PATH REQUEST Jake Valenzuela MD 05/28/2023 1008 17 : Level 4 lymph node #3 Permanent SURG PATH SURG PATH REQUEST Jake Valenzuela MD 05/28/2023 1008 18 : Level 11R lymph node #2 Permanent SURG PATH SURG PATH REQUEST Jake Valenzuela MD 05/28/2023 1013 19 : Right upper lobe, stitch = bronchus Permanent SURG PATH SURG PATH REQUEST Jake Valenzuela MD05/28/2023 1024 Drains: 28 Malian Chest Tube. Complications: None. Disposition: The patient tolerated the operation well. He was extubated and transported the postanesthesia care unit in stable condition. Indication for the procedure: Mr. Penny is a 78 year old male with right upper lobe lung cancer. Initially, he was thought to havemetastatic disease, but his adrenal biopsy was negative [...] transferred to the operating room at the [facility]. Intravenous lines and an arterial line [...] entered and was normal. The left upper lobeand left lower lobe bronchial orifices were normal. [...] trocar and the right hemithorax was inspected andthere was no evidence of pleural effusion or pleural dissemination. The right upper lobe lung carcinoma was located in the posterior apical segment. The AtriCurei Xi robot was then docked to the [...] The superior pulmonary vein was divided with oneseparate firings of the robotic stapler with white vascular load. The truncus anterior branch of the pulmonary artery was identified and dissected using the bipolar curved forceps. The curved bipolarforceps were safely passed behind the truncus anterior branch which was then divided with a single application of the Robotic stapling device with a vascular load. The right upper lobe was then retracted anteriorly. The right upper lobe bronchus was identified. The bronchus was dissected with a curv ed bipolar forceps. The robotic stapler was then [...] blocks by injecting 0.25% Marcaine with epinephrine inthe T5-9 interspaces under direct thoracoscopic guidance. There was no evidence of bleeding. A 28 Malian straight chest tube was placed through the 8th intercostal space thoracoscopic port and secured with a #0 ticron suture. The chest tube was connected toPleur-evac and placed on -20 cm of suction. [...] instrument counts were correct x 2. Dr. Valenzuela was present for all lorenz aspects of the pro cedure and participated in the entire procedure. There were no intraoperative complications. The patient was extubated and transported to postanesthesia care unit in stable condition. Alessandra Mace DO MPH Cardiothoracic Surgery Fellow Pager ID #[phone] documented in this encounterTri[facility] Nurse Note* Nursing Notes - Amarilys Valentine RN - 05/30/2023 10:39 AM EDT 05/30/23 1038 Referral Information Arrived From operating room Final Discharge Planning Discharge Disposition Home CM/SW AVS Portion Completed Yes Plan Plan Anticipating discharge to home today Patient/Family In Agreement With Plan yes Plan Comments Daughter will provide transportation home. Transport Request Mode of Transfer Private Vehicle [facility] Discharge Note Patient discussed in medical rounds for discharge to home today pending post chest tube pull CXR. PCRM met with the patient to discuss final discharge plan. Services for Discharge N/A Consults with Final Discharge Recommendations N/A Lines/Tubes/Drains/Wounds/Supplies Chest tube removed this morning. Patient to keep dry dressing over the chest tube insertion site and cannot shower for 48 hours after the chest tube is pulled. Surgical incisions to be left open to air. Patient has no other lines/tubes/drains/wounds/supplies upon discharge. Medications No barriers anticipated in [...] Imaging Rg [address] [place] [address] [facility] [phone] Follow up on 06/17/2023 arrive for your walk in chest x-ray 30 min before your appt Division of Thoracic Surgery at [facility] [address] [facility] [id number] Follow up on 06/17/2023 Post-op appointment with Dr. Valenzuela at 12:15 pm Was Ambulatory PCRM added [...] and assistance is needed, please page the extrusion utility worker PCRM at [phone]. DECLAN Harris, RN, ACM-RN Patient Care Thinner Sprayer [facility]11-03-2023 History of Present illness Narrative* Amarilys Napoles APRN-COMMUNITY NURSE - 05/30/2023 8:30 AM EDT Chest Tube Removal Note Right chest tube output 390 ml/24 hours, no air leak. Right chest tube removed per protocol. Patient tolerated well. Purse string suture tied. Dry dressing applied to site. CXR pending. TRACY EscobarCOMMUNITY NURSE #[id number] * Gerald Valentine MD - 05/29/2023 12:24 PM EDT Anesthesia Acute Pain Progress Note S: Patient seen and examined at bedside. No acute events overnight. Pain well- controlled with current regimen. Patient denies headache, SOB, [...] sign off at this time. Please call [phone] or page [phone] with any questions or concerns. Gerald Valentine MD Anesthesiology PGY1 * JOHN Warren - 05/29/2023 12:17 PM EDT Inpatient Progress Note: Petar Penny Date: 05/29/2023 12:17 PM Chief Complaint: Squamous cell carcinoma of right lung Primary Surgeon: Jake Valenzuela MD [place]: Petar Penny is a 78 y.o. male former smoker with history of AAA, AR (s/p stent placement x 4 on plavix), AV block s/p pacemaker placement, TIA, VANDANA who was initially referred by Dr. Tobias for surgical evaluation of right upper lobe squamous cell carcinoma. To review, he underwent a biopsyof the right upper lobe in [place] which demonstrated NSCLC favoring squamous cell carcinoma. PET scan on 03/18/23 demonstrated SUV 13.3 in the right upper lobe and 2.9 in the left adrenal gland. He underwent adrenal biopsy on 04/04/23, which was benign. He had an EBUS with FNA on 04/28/[address] Valenzuela; level 7 was negative (not adequate), 11R [...] temperature 97.8 F (36.6 C), temperature source Oral,resp. rate 18, height 1.753 m (5' 9), weight 93.2 kg (205 lb 6.4 oz), [...] x 3 with no acute distress. Breathing non- labored, conversationalwithout dyspnea. Chest tube is to water seal [...] Cad (Coronary Artery Disease) H/X of 4 AR's s/p 5 stent placements. Continue aspirin. Hold [...] seal. Advanced diet. Stopped IV fluids. Removed maradiaga. Continue to encourage aggressive pulmonary toilet with ambulation. Monitor daily labs and CXR. The patient was seen, images reviewed, and plan of care discussed with JOHN Richards #[id number] * Kaitlin Katarina - 05/29/2023 11:57 AM EDT Introduced self and role of the ems educator to patient/family. Provided emotional and spiritual support and the patient/family responded by sharing their experience and discussed the following: Pt sitting in recliner, no family present. Pt reports that he gets his support from his of 40 years, his daughter and their neighbors and his chelsie. He reports that he communes w/ Gd wherever heis but especially in nature. 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 He reports that his daughter and neighbors and keeping an eye on her but that he is eager to get back to her. He reports that it is also important to him to get hometo his dog who is giving his family a hard time as he is not there. Offered active listening, comfort, support and prayer. Patient/family encouraged to request a ems educator as needed. Chaplains are available in-house 24 hours a day and 7 days a week. For urgent matters in the [place]ass[place],please page [phone]. If the request is not urgent, please enter a consult. Consults are responded to within 24 hours. Women Specialist Kaitlin Bray, DDiv,MAHL, [facility] Senior Women Specialist, [place] , , 17/02 On-Call Pager [place] ([phone]) 05/29/23 1103 Clinical Encounter Type Visited With Patient Visit Type Introduction Pastoral Time Spent 45 min Jew Encounters Jew Needs Prayer Spiritual Assessment Spiritual Observation Spirituality helpful Emotional Observation Coping well Hope Observation Specific hope focus Support Observation By Family;By Friend Interventions Provided Active listening;Prayer;Supportive presence Facilitated Verbalization of feelings Explored Expectations;Family issues Vehicle Controls Engineer Education Vehicle Controls Engineer Service Available Yes Educated Patient Outcomes Patient Outcomes Articulated purpose/meaning Plan of Care Continue Visiting PRN Values/Beliefs (F) Chelsie Importance Patients reports that he has a relationship with Robert. Spiritual Care Comment Patient made aware of available pastoral care. * Dee Lemus - 05/29/2023 11:16 AM EDT Psychosocial Assessment Per chart review, patient is a 78 y.o., male, who was admitted for a flexible bronchoscopy, right robotic, right upper lobe lobectomy, and lymph node dissection per Bailey Pearce, WEATHER TEACHER-COMMUNITY NURSE note on 05/29/23. SW met with patient to introduce self, explain social service liaison role during inpatient stay, and answerquestions. Patient was alert and oriented x3 and agreeable to SW visit. Contact Information Advertising Dispatch Clerk Name: Amarilys Gomez Advertising Dispatch Clerk's Social Work Contact Name: Joana Armstrong Pattern Grader Supervisor's Advance Directives Type of Advance Directives Currently on File: healthcare power of assistant district attorney, living will Patient Requesting to Complete/Update the Following Advance Directive: Not at this time Advance Directive Discussion: Per chart review, patient already has completed Living Will and Healthcare Power of Drafter Marine (HCPOA) on file. SW reviewed the document(s) with patient and they confirmeddocuments are current and reflective of their wishes. The following individual(s) are named as decision makers in the patient's HCPOA: Primary Agent: spouse, Rolan Penny, (ph: [phone]) First Alternate Agent: daughter, Rosie Penny, (ph: [phone]) Legal NOK: Spouse, Rolan Penny, (ph: [phone]) Emotional/Psychological Affect: no deficits noted Mood: congruent [...] adapt, expressive of emotions, expressive of needs, chelsie/spirituality, future/goal oriented, humor, motivated, positive attitude, resilient, strong support system Sources Of Support: adult child(jennifer), friend(s) Reaction To Health Status: accepting Understanding Of Condition And Treatment: adequate understanding of medical condition, adequate understanding of treatment Values/Beliefs (F) Chelsie Importance: Patients reports that he has a relationship with Robert. Spiritual Care Comment: Patient made aware of available pastoral care. Employment/Financial Employed?: Retired Employment/Financial Concerns: no Source Of Income: pension/custodial, social security Financial Concerns: none Food Insecurity Within the past 12 months, you worried that your food would run out before you got the money to buymore.: Never true Within the past 12 months, [...] steady place to sleep or slept in ashelter (including now)?: No Utilities In the past [...] a typical day when you are drinking?: Patientdoes not drink Q3: How often do you [...] support as needed during inpatient stay. Dee Lemus [employer] Work Student For Evening (4:30pm-8am) and Weekend SW needs please call [phone] or page [phone] * Bailey Pearce APRN-HUMAIRA - 05/29/2023 9:32 AM EDT Inpatient Progress Note: Petar Penny Date: 05/29/2023 9:33 AM Chief Complaint: Squamous cell carcinoma of right lung Primary Surgeon: Jake Valenzuela MD [place]: Petar Penny is a 78 y.o. male former smoker with history of AAA, AR (s/p stent placement x 4 on plavix), AV block s/p pacemaker placement, TIA, VANDANA who was initially referred by Dr. Tobias for surgical evaluation of right upper lobe squamous cell carcinoma. To review, he underwent a biopsyof the right upper lobe in [place] which demonstrated NSCLC favoring squamous cell carcinoma. PET scan on 03/18/23 demonstrated SUV 13.3 in the right upper lobe and 2.9 in the left adrenal gland. He underwent adrenal biopsy on 04/04/23, which was benign. He had an EBUS with FNA on 04/28/[address] Valenzuela; level 7 was negative (not adequate), 11R [...] temperature 97.7 F (36.5 C), temperature source Oral,resp. rate 18, height 1.753 m (5' 9), weight 93.2 kg (205 lb 6.4 oz), [...] x 3 with no acute distress. Breathing non- labored, conversationalwithout dyspnea. Chest tube is to water seal [...] seal. Advanced diet. Stopped IV fluids. Removed maradiaga. Continue to encourage aggressive pulmonary toilet with [...] my note which is cosigned by attending Jake Valenzuela MD for final recommendations. JOHN Warren [facility] Nurse Note* Nursing Notes - Amarilys Valentine RN - 05/29/2023 10:44 AM EDT 05/29/23 1041 Referral Information Arrived From operating room Readmission Information Was patient readmitted within 30 Days? Yes Information Source Information Source patient Information Source Name Petar (patient) Information Source Number See demographics Outpatient Providers Outpatient Providers Updated In IHIS Yes Contact Information Advertising Dispatch Clerk/SW Added to Care Team Yes This Human Relations Teacher is Primary Advertising Dispatch Clerk/SW Yes Advertising Dispatch Clerk Name Amarilys Gomez Advertising Dispatch Clerk's Social Work Contact Name Joana Armstrong Pattern Grader Supervisor's Living Environment Lives With spouse Living Arrangements [...] Retired Employment/Financial Concerns no Source Of Income pension/custodial;social security Financial Concerns none Insurance Medical Insurance Verified Yes Prescription Coverage Yes Pharmacy updated in IHIS Yes Initial Discharge Planning Home Care Services ([facility] [place]) No Home Therapies ([employer] [place]) None DME ([employer]) Straight cane Medical Supplies ([employer] [place]) Blood Pressure Monitor Patient Goal for Discharge [...] Assessment PCRFelipe and THOMAS Armstrong met with Petar Penny to complete the initial assessment. Explained role and function of PCRM in multidisciplinary team. Contact number provided for questions. Demographic information reviewed with patient/family and confirmed as correct. Reason for Admission: 78 y.o. male former smoker with history of AAA, AR (s/p stent placement x 4 on plavix), AV block s/p pacemaker placement, TIA, VANDANA who was initially referred by Dr. Tobias for surgical evaluation of right upper lobe squamous cell carcinoma. To review, he underwent a biopsy ofthe right upper lobe in [place] which demonstrated NSCLC favoring squamous cell carcinoma. PET scanon 03/18/23 demonstrated SUV 13.3 in the right upper lobe and 2.9 in the left adrenal gland. He underwent adrenal biopsy on 04/04/23, which was benign. He had an EBUS with FNA on 04/28/[address] Valenzuela; level 7 was negative (not adequate), 11R [...] Planned DECLAN Harris, RN, ACM-RN Patient Care Thinner Sprayer [facility]11-02-2023 Consult note* Odell Hodge RN - 05/29/2023 8:37 AM EDT Vascular Access Procedure Note for Ultrasound Guided [...] forearm. The right hand is WNL. Assessment [facility] seen and evaluated for peripheral IV insertion [...] 2: Location: forearm, anterior, right Device/Lot Number: [id number] catheter system Gauge/Length: 20 gauge;1 3/4 in length Unsuccessful Insertion Attempts: 0 Unsuccessful Attempt Location/Site: Pain Prevention/Patient Tolerance: distraction;tolerated well Removal: Additional Comments: Lumen 3: Peripheral IV Present on Admission: (Retired/Read Only) Location: (Retired/Read Only) Device: (Retired/Read Only) Gauge/Length: Fluid Dynamicist/Lot Number: Unsuccessful Insertion Attempts: (Retired/Read Only) Unsuccessful [...] care of this patient. Vascular Access Team [id number] [facility]11-02-2023 Consult note* Odell Hodge RN - 05/29/2023 8:37 AM EDT Vascular Access Procedure Note for Ultrasound Guided [...] forearm. The right hand is WNL. Assessment Petar Penny seen and evaluated for peripheral IV [...] 2: Location: forearm, anterior, right Device/Lot Number: [id number] catheter system Gauge/Length: 20 gauge;1 3/4 in length Unsuccessful Insertion Attempts: 0 Unsuccessful Attempt Location/Site: Pain Prevention/Patient Tolerance: distraction;tolerated well Removal: Additional Comments: Lumen 3: Peripheral IV Present on Admission: (Retired/Read Only) Location: (Retired/Read Only) Device: (Retired/Read Only) Gauge/Length: Fluid Dynamicist/Lot Number: Unsuccessful Insertion Attempts: (Retired/Read Only) Unsuccessful [...] care of this patient. Vascular Access Team [id number] [facility] Plan of care note* Plan of Care - Raquel Singh RN - 05/29/2023 4:12 AM EDT No acute change noted from previous assessment at this time unless otherwise indicated on the flow sheet and/or notes. Problem: Patient Care Overview Goal: Plan of Care Review Outcome: Ongoing [facility]11-01-2023 Nurse Note* Nursing Notes - Jagruti Couch RN - 05/28/2023 6:50 PM EDT On admission to [facility], from PACU a dual RN initial assessment of skin condition was performed by Jagruti Couch RN and Irene Sesay RN. Skin Assessment: Skin within defined limits:Yes. Right sided chest tube intact w/ +1 air leak, incisions with dermabond. Maradiaga in place. 2 PIV intact. Alfredito Score: 23 LDA Added:No Jagruti Couch RN [facility]11-01-2023 Surgery Postoperative evaluation and management note* Op Note - Alessandra Mace DO - 05/28/2023 12:02 PM EDT Thoracic Surgery Operative Report Date: 05/28/23 Preoperative Diagnosis: right upper lobe squamous cell carcinoma Postoperative Diagnosis: right upper lobe squamous cell carcinoma Procedures Performed: Flexible Bronchoscopy Robotic-Assisted Thoracoscopic Right Upper Lobectomy Right Thoracoscopic Mediastinal and regional Lymph Node Dissection Intercostal Nerve Blocks. Surgeon: Jake Valenzuela M.D. Club Former: Alessandra Mace DO (fellow), Meron Stahl PA-C. Anesthesia Type: General Anesthesia. Estimated Blood Loss: 50 mL. Intravenous Fluid: See Anesthesia Record. Specimens: ID Type Source Tests Collected by Time Destination 1 : Level 8 lymph node #1 Permanent SURG PATH SURG PATH REQUEST Jake Valenzuela MD 05/28/2023 0833 2 : Level 8 lymph node #2 Permanent SURG PATH SURG PATH REQUEST Jake Valenzuela MD 05/28/2023 0834 3 : Level 8 lymph node #3 Permanent SURG PATH SURG PATH REQUEST Jake Valenzuela MD 05/28/2023 0834 4 : Level 7 lymph node #1 Permanent SURG PATH SURG PATH REQUEST Jake Valenzuela MD 05/28/2023 0853 5 : Level 7 lymph node #2 Permanent SURG PATH SURG PATH REQUEST Jake Valenzuela MD 05/28/2023 0853 6 : Level 7 lymph node #3 Permanent SURG PATH SURG PATH REQUEST Jake Valenzuela MD 05/28/2023 0853 7 : Level 7 lymph node #4 Permanent SURG PATH SURG PATH REQUEST Jake Valenzuela MD 05/28/2023 0853 8 : Level 7 lymph node #5 Permanent SURG PATH SURG PATH REQUEST Jake Valenzuela MD 05/28/2023 0853 9 : Level 11R lymph node #1 Permanent SURG PATH SURG PATH REQUEST Jake Valenzuela MD 05/28/2023 0915 10 : Level 10R lymph node #1 Permanent SURG PATH SURG PATH REQUEST Jake Valenzuela MD 05/28/2023 0935 11 : Level 10R lymph node #2 Permanent SURG PATH SURG PATH REQUEST Jake Valenzuela MD 05/28/2023 0935 12 : Level 10R lymph node #3 Permanent SURG PATH SURG PATH REQUEST Jake Valenzuela MD 05/28/2023 0935 13 : Level 10R lymph node #4 Permanent SURG PATH SURG PATH REQUEST Jake Valenzuela MD 05/28/2023 0940 14 : Level 10R lymph node #5 Permanent SURG PATH SURG PATH REQUEST Jake Valenzuela MD 05/28/2023 0946 15 : Level 4 lymph node #1 Permanent SURG PATH SURG PATH REQUEST Jake Valenzuela MD 05/28/2023 1008 16 : Level 4 lymph node #2 Permanent SURG PATH SURG PATH REQUEST Jake Valenzuela MD 05/28/2023 1008 17 : Level 4 lymph node #3 Permanent SURG PATH SURG PATH REQUEST Jake Valenzuela MD 05/28/2023 1008 18 : Level 11R lymph node #2 Permanent SURG PATH SURG PATH REQUEST Jake Valenzuela MD 05/28/2023 1013 19 : Right upper lobe, stitch = bronchus Permanent SURG PATH SURG PATH REQUEST Jake Valenzuela MD05/28/2023 1024 Drains: 28 Malian Chest Tube. Complications: None. Disposition: The patient tolerated the operation well. He was extubated and transported the postanesthesia care unit in stable condition. Indication for the procedure: Mr. Penny is a 78 year old male with right upper lobe lung cancer. Initially, he was thought to havemetastatic disease, but his adrenal biopsy was negative [...] transferred to the operating room at the [facility]. Intravenous lines and an arterial line [...] entered and was normal. The left upper lobeand left lower lobe bronchial orifices were normal. [...] trocar and the right hemithorax was inspected andthere was no evidence of pleural effusion or pleural dissemination. The right upper lobe lung carcinoma was located in the posterior apical segment. The WiTricityinci Xi robot was then docked to the [...] The superior pulmonary vein was divided with oneseparate firings of the robotic stapler with white vascular load. The truncus anterior branch of the pulmonary artery was identified and dissected using the bipolar curved forceps. The curved bipolarforceps were safely passed behind the truncus anterior branch which was then divided with a single application of the Robotic stapling device with a vascular load. The right upper lobe was then retracted anteriorly. The right upper lobe bronchus was identified. The bronchus was dissected with a curv ed bipolar forceps. The robotic stapler was then [...] blocks by injecting 0.25% Marcaine with epinephrine inthe T5-9 interspaces under direct thoracoscopic guidance. There was no evidence of bleeding. A 28 Malian straight chest tube was placed through the 8th intercostal space thoracoscopic port and secured with a #0 ticron suture. The chest tube was connected toPleur-evac and placed on -20 cm of suction. [...] instrument counts were correct x 2. Dr. Valenzuela was present for all lorenz aspects of the pro cedure and participated in the entire procedure. There were no intraoperative complications. The patient was extubated and transported to postanesthesia care unit in stable condition. Alessandra Mace DO MPH Cardiothoracic Surgery Fellow Pager ID #[phone] [facility] Work Phone: 1(645) 217-500811-01-2023 Hospital Discharge instructions* Discharge Instructions* Amarilys Valentine RN - 05/28/2023 8:54 AM EDT Images from the original note were not included. Your Advertising Dispatch Clerk (PCRM) has arranged your appointments for follow up based on your preference of where you would like to continue your care. If you are unable to attend appointments that have been arranged for you, it is your responsibilityto call to reschedule at least 48 hours [...] have on file, the day after you aredischarged at 11 a.m. to check on you. Please expect a two- minute automated telephone call from [facility]. This call will come from [phone]. If you are unable to answer or do not receive the automated call, please call [phone] to complete this important evaluation. By answering the phone evaluation, a Kassie nurse will be notified if you have any questions or concerns and call you back. If you have an immediate medical need call your doctor s office, or if you have a medical emergencycall 911. * Medications* Amarilys Napoles APRN-HUMAIRA - 05/28/2023 8:55 AM EDT RESTART YOUR [...] other contraindications to those medications. Use these medicationsto help you need less narcotic pain medication. -you can start to wean yourself off the narcotic pain medication as soon as you feel comfortable bytaking a smaller dose and/or increasing the number of hours in between doses. * Discharge Instr - Activity* Amarilys Valentine RN - 05/28/2023 8:55 AM [...] take 6 to 12 months to improve. * Discharge Instr - Diet* Amarilys Valentine RN - 05/28/2023 8:55 AM EDT Resume home diet * Discharge Instr - Notify* Amarilys Valentine RN - 05/28/2023 8:55 AM [...] hours a day, 7 days a week: [phone] Outpatient Advertising Dispatch Clerk: Philippe Alonso [phone] Outpatient Pattern Grader Supervisor: Ann Marie George [phone] Inpatient Advertising Dispatch Clerk: Amarilys Valentine [phone] Inpatient Pattern Grader Supervisor: Joana Gill [phone] * Discharge Instr - Wound Care* Amarilys Valentine RN - 05/28/2023 8:56 AM [...] or pale yellow fluid. If draining, cover withband-aid or sterile gauze dressing. If the drainage develops an odor, becomes pus-like, the area becomes red, or you develop a fever, please contact us. -Clean with soap and water daily, pat dry. Do not apply any ointments or creams to tube insertion site unless instructed by your doctor. * Attachments The following attachments cannot be sent through Care Everywhere. * Incentive Spirometer ([facility]) (Macedonian) * Pain Post-Surgery: Acute (Macedonian) [facility] History of Present illness Narrative* Facundo Gudino RN - 05/28/2023 6:16 AM EDT This pt is scheduled for a right [...] restore original device settings. [facility] Nurse Surgical operation note* Nikita Cruz RN - 05/28/2023 5:54 AM EDT Patient denies hx of chemo and radiation. Patient denies metal or foreign objects in body EXCEPT L chest PPM, Patient has hx of TIA, denies seizures. [facility]11-01-2023 Nurse Note* Nikita Cruz RN - 05/28/2023 5:54 AM EDT Patient denies hx of chemo and radiation. Patient denies metal or foreign objects in body EXCEPT L chest PPM, Patient has hx of TIA, denies seizures. documented in this [facility]10-10-2023 History of Present illness Narrative* Jake Valenzuela MD - 05/06/2023 12:54 PM EDT Mr. Penny presents for a followup visit [...] factors includimng past history of stroke and AR and has an increased risk for cardiopulmonary or cerebrovascular complications after surgery, but overall, this would be acceptable, and he wants to proceed with the planned elective surgery and signed informed consent in the office today. (DOC:[id number]) * Jake Valenzuela MD - 05/06/2023 12:54 PM EDT Mr. Penny presents for a follow up [...] cardiovascular risk factors including previous stroke and AR and as a result has an increased risk for cardiopulmonary or cerebrovascular complications after surgery, but overall, this would be acceptable, and he wants to proceed with the planned elective surgery and signed informed consent in the office today. (DOC:[id number]) * Berta Stallworth RN - 05/06/2023 11:15 AM EDT JOCScreening Do you experience shortness of breath [...] to any of the above questions? Yes: [facility] Required No: [facility] Approved * Nicole Bajwa RN - 05/06/2023 11:15 AM EDT Patient provided with pre-operative educational bag consisting of CHG soap, incentive spirometer, and patient education. Discharge folder provided consisting of use of CHG, how to use incentive spirometer, pain management, and managing opioid induced constipation. Patient verbalized understanding and denies any further questions. Patient was given 2 nutritional supplements at the end of today's visit and instructed to drink onethe night before surgery and drink the other 2-4 hrs prior to scheduled surgery time. Patient verbalized understanding. documented in this [facility]10-10-2023 History and physical note* Amarilys Napoles APRN-COMMUNITY NURSE - 05/06/2023 11:15 AM EDT Images from the original note were not included. History and Physical Patient: Petar Penny Date: 05/06/2023 12:48 PM Attending Physician: Jake Valenzuela MD Chief Complaint: NSCLC of the right upper lobe HPI: Petar Penny is a 78 y.o. male former smoker with history of AAA, AR (s/p stent placement x 4on plavix), AV block s/p pacemaker placement, TIA, VANDANA who was initially referred by Dr. Tobias for surgical evaluation of right upper lobe squamous cell carcinoma. To review, he underwent a biopsy of the right upper lobe in [place] which demonstrated NSCLC favoring squamous cell carcinoma. PET scan on 03/18/23 demonstrated SUV 13.3 in the right upper lobe and 2.9 in the left adrenal gland. He underwent adrenal biopsy on 04/04/23, which was benign. He had an EBUS with FNA on 04/28/[address] Valenzuela; level 7 was negative (not adequate), 11R was negative and adequate, and 4R was negative (not adequate). He completed PFTs today and returns to discuss further treatment. He previously had a stress test in December 2022 which was negative. He is feeling well with a new cough and shortness of breathwith minimal activity. He denies fatigue or weight loss. Past Medical/Surgical History Past Medical History: Diagnosis Date AAA (abdominal aortic aneurysm) AV block CAD (coronary artery disease) Cardiomegaly Congestive heart failure COVID-19 Essential hypertension, benign Hyperlipidemia AR (myocardial infarction) states he had 4 heart attacks, 5 stents and a pacemaker VANDANA (obstructive sleep apnea) Pacemaker RBBB Squamous cell carcinoma of lung TIA (transient ischemic attack) thinks this is from migraines Vascular disease Past Surgical History: Procedure Laterality Date BRONCHOSCOPY FLEXIBLE DIAGNOSTIC N/A 04/28/2023 Laterality: N/A; Surgeon: Jake Valenzuela MD; Location: [facility] MAIN OR BRONCHOSCOPY FLEXIBLE W/ EBUS DURING BRONCH DIAGNOSTICS/INTEVENTION FO N/A 04/28/2023 Laterality: N/A; Surgeon: Jake Valenzuela MD; [facility] PAC[facility]AC[facility] 12/2022 [...] PM. X 7 days then increase to 2tabs. nitroGLYCERIN 0.[address] 1 tablet under tongue Every 5 MINutes as needed. [place] 3 1000 MG capsule Take 2 capsules [...] Penicillins Immunizations: Immunization History Administered Date(s) Administered 5785-4421 COVID-19 monovalent vaccine, mRNA, Pfizer, 0.3 ML 08/31/2020, 09/28/2020, 05/05/202120201567-3645 COVID-19 monovalent vaccine (Pfizer) 12yr +, 30mcg/0.3mL 11/01/202120212515-6709 COVID-19 bivalent vaccine (Pfizer) 12yr +, 30mcg/0.3mL [...] normal without wheezes or rales. He exhibits nocrepitus. Abdomen: Abdomen soft, non-tender, non-distended. Bowel sounds [...] grade I diastolic dysfunction, consistent with low ornormal atrial pressures. 4. Right ventricular systolic function [...] Immediate Study: Adequacy/Preliminary Diagnosis: Not Adequate Vera Gaykirstenky, CT (ASCP), April 28, 2023 B. 11R [...] 30.0-34.9) Squamous Cell Carcinoma of Right Lung Petar Penny is a 78 y.o. male former smoker with a past medical history of AR with stent placement, AAA, AV block with [...] reviewed, and plan of care discussed with Jake Valenzuela MD. Amarilys Napoles APRN-COMMUNITY NURSE #[id number] Associated attestation - Jake Valenzuela MD - 05/15/2023 2:59 PM EDT Thoracic Surgery Attending I saw and independently examined the patient. I agree with the history of present illness, past medical history, family history, social history, medication list, and allergies as listed. Independent review of labs and radiographs, as well as review medical records, confirm the findings noted below,I agree with the assessment and plan as noted below. I have reviewed the note and made edits as neccessary. Please see the separate progress note for my impression. The plan was developed mutually at the time of the clinic visit. The nurse practitioner/physician certified teacher assistant and I have spoken with the patient and provided written and verbal instructions for the patient. The SHARA note has been reviewed and I agree with the assessment and plan. Follow-up arrangements were made prior to the patient being discharged from the clinic. Jake Valenzuela MD [facility]10-10-2023 History and physical note* Amarilys JOHN Robin - 05/06/2023 11:15 AM EDT Images from the original note were not included. History and Physical Patient: Petar Penny Date: 05/06/2023 12:48 PM Attending Physician: Jake Valenzuela MD Chief Complaint: NSCLC of the right upper lobe HPI: Petar Penny is a 78 y.o. male former smoker with history of AAA, AR (s/p stent placement x 4on plavix), AV block s/p pacemaker placement, TIA, VANDANA who was initially referred by Dr. Tobias for surgical evaluation of right upper lobe squamous cell carcinoma. To review, he underwent a biopsy of the right upper lobe in [place] which demonstrated NSCLC favoring squamous cell carcinoma. PET scan on 03/18/23 demonstrated SUV 13.3 in the right upper lobe and 2.9 in the left adrenal gland. He underwent adrenal biopsy on 04/04/23, which was benign. He had an EBUS with FNA on 04/28/[address] Valenzuela; level 7 was negative (not adequate), 11R was negative and adequate, and 4R was negative (not adequate). He completed PFTs today and returns to discuss further treatment. He previously had a stress test in December 2022 which was negative. He is feeling well with a new cough and shortness of breathwith minimal activity. He denies fatigue or weight loss. Past Medical/Surgical History Past Medical History: Diagnosis Date AAA (abdominal aortic aneurysm) AV block CAD (coronary artery disease) Cardiomegaly Congestive heart failure COVID-19 Essential hypertension, benign Hyperlipidemia AR (myocardial infarction) states he had 4 heart attacks, 5 stents and a pacemaker VANDANA (obstructive sleep apnea) Pacemaker RBBB Squamous cell carcinoma of lung TIA (transient ischemic attack) thinks this is from migraines Vascular disease Past Surgical History: Procedure Laterality Date BRONCHOSCOPY FLEXIBLE DIAGNOSTIC N/A 04/28/2023 Laterality: N/A; Surgeon: Jake Valenzuela MD; Location: [facility] MAIN OR BRONCHOSCOPY FLEXIBLE W/ EBUS DURING BRONCH DIAGNOSTICS/INTEVENTION FO N/A 04/28/2023 Laterality: N/A; Surgeon: Jake Valenzuela MD; [facility] PACEMAKER PLACEMENT 12/2022 [...] PM. X 7 days then increase to 2tabs. nitroGLYCERIN 0.[address] 1 tablet under tongue Every 5 MINutes as needed. [place] 3 1000 MG capsule Take 2 capsules [...] Penicillins Immunizations: Immunization History Administered Date(s) Administered [id number] COVID-19 monovalent vaccine, mRNA, Pfizer, 0.3 ML 08/31/2020, 09/28/2020, 05/05/[id number] COVID-19 monovalent vaccine (Pfizer) 12yr +, 30mcg/0.3mL [...] normal without wheezes or rales. He exhibits nocrepitus. Abdomen: Abdomen soft, non-tender, non-distended. Bowel sounds [...] grade I diastolic dysfunction, consistent with low ornormal atrial pressures. 4. Right ventricular systolic function [...] 30.0-34.9) Squamous Cell Carcinoma of Right Lung Petar Penny is a 78 y.o. male former smoker with a past medical history of AR with stent placement, AAA, AV block with [...] reviewed, and plan of care discussed with Jake Valenzuela MD. Amarilys Napoles APRN-COMMUNITY NURSE #[id number] Associated attestation - Jake Valenzuela MD - 05/15/2023 2:59 PM EDT Thoracic Surgery Attending I saw and independently examined the patient. I agree with the history of present illness, past medical history, family history, social history, medication list, and allergies as listed. Independent review of labs and radiographs, as well as review medical records, confirm the findings noted below,I agree with the assessment and plan as noted below. I have reviewed the note and made edits as neccessary. Please see the separate progress note for my impression. The plan was developed mutually at the time of the clinic visit. The nurse practitioner/physician certified teacher assistant and I have spoken with the patient and provided written and verbal instructions for the patient. The SHARA note has been reviewed and I agree with the assessment and plan. Follow-up arrangements were made prior to the patient being discharged from the clinic. Jake Valenzuela MD [facility] Instructions* Patient Instructions* JOHN Escobar - 05/06/2023 11:15 AM EDT [...] PM. X 7 days then increase to 2tabs. nitroGLYCERIN 0.[address] 1 tablet under tongue Every 5 MINutes as needed. [place] 3 1000 MG capsule Take 2 capsules by mouth daily. Pantoprazole [address] tablet DR Take 1 tablet by mouth daily. Vitamin E 200 units capsule Take 1 capsule by mouth daily. -STOP taking ALL vitamins and herbal medications (including fish oil, [place]-3, garlic, glucosamine-chondroitin, gingko, ginseng, tumeric, multivitamins) 2 [...] the morning of surgery. [facility] Nurse Note* Nursing Notes - Monse Whittington RN - 04/28/2023 3:15 PM EDT 1441-Patient arrived to [facility]SU from [facility] [place]U [place] Vital signs taken and stable. Patientgiven drink and snacks. Family called to bedside. Patient assessed. 1523-Discharge instructions, prescriptions, and anesthesia precautions reviewed with patient and family. All questions answered. 1534-Patient meets ASU discharge criteria and discharged per MD order to home. Patient taken by wheelchair by RN to awaiting car. All belongings gathered with patient. Family/friend to drive patient home and care for patient 24 hours post-op. [facility]10-[facility] Miscellaneous Notes* Nursing Notes - Monse Whittington RN - 04/28/2023 3:15 PM EDT [facility]. Vital signs taken and stable. Patientgiven drink and snacks. Family called to bedside. Patient assessed. 1523-Discharge instructions, prescriptions, and anesthesia precautions reviewed with patient and family. All questions answered. 1534-Patient meets ASU discharge criteria and discharged per MD order to home. Patient taken by wheelchair by RN to awaiting car. All belongings gathered with patient. Family/friend to drive patient home and care for patient 24 hours post-op. * Nursing Notes - Olga William RN - 04/28/2023 2:13 PM EDT 1349: This RN took over care of [...] with SANJANA Barr. Report given to Cortney. * Nursing Notes - Faiza Couch RN - 04/28/2023 11:30 AM EDT Patient denies hx of chemo and radiation. Patient denies metal or foreign objects in body aside from a pacemaker. Patient denies hx of seizure but had a stroke. Called pacer clinic, they stated they need to see him before OR. 1200: Pacer clinic RN at bedside, states pt does not need to be seen post-op or in PACU. [facility] Hospital Discharge instructions* Discharge Instructions* Kwasi Mckeon MD - 04/28/2023 2:39 PM EDT THORACIC SURGERY POST-OPERATIVE INSTRUCTIONS: INCENTIVE SPIROMETER: -Continue to use your incentive spirometer every hour while awake for 4 weeks. PAIN MEDICATION: -You may take acetaminophen or ibuprofen as directed on the package in addition to the prescriptionpain medication provided to you. CALL THE DOCTOR [...] Surgery Contact Information: Friday - Friday 8am-4:30pm: [phone] Evenings, weekends, holidays: [phone] and ask the fulling mill operator to page the Thoracic Fellow On-Call. - You can restart your home Plavix tomorrow if you do not cough up any blood today. If you cough upblood, please hold Plavix for 24 hours. If this continues, please call our team. documented [facility] this [facility] Nurse Note* Nursing Notes - Olga William RN - 04/28/2023 2:13 PM EDT 1349: This RN took over care of [...] with SANJANA Barr. Report given to Cortney. [facility] Nurse Surgical operation note* Abby Dunn RN - 04/28/2023 11:39 AM EDT 1245 - Family notified of surgery start 1240 - Hand-off report sent to PACU charge nurse 1307 - Family called per MD request 1301 - PACU given notice of arrival 1305 - All appropriate parties notified of room turnover. 1309 - Patient extubated 1313- Transported to PACU with anesthesia at bedside on oxygen inhalation. [facility] Nurse Note* Abby Dunn RN - 04/28/2023 11:39 AM EDT 1245 - Family notified of surgery start 1240 - Hand-off report sent to PACU charge nurse 1307 - Family called per MD request 1301 - PACU given notice of arrival 1305 - All appropriate parties notified of room turnover. 1309 - Patient extubated 1313- Transported to PACU with anesthesia at bedside on oxygen inhalation. [facility] Nurse Note* Nursing Notes - Faiza Couch RN - 04/28/2023 11:30 AM EDT Patient denies hx of chemo and radiation. Patient denies metal or foreign objects in body aside from a pacemaker. Patient denies hx of seizure but had a stroke. Called pacer clinic, they stated they need to see him before OR. 1200: Pacer clinic RN at bedside, states pt does not need to be seen post-op or in PACU. [facility] History of Present illness Narrative* Mary Ann Baker RN - 01/24/2023 12:13 PM EDT Patient Name: Petar Penny Date: 01/24/23 MR #: [id number] : 1945 Wound Check Assessment Type of Incision Check: Date of Device Implant 01/13/23 Implanting Filter Tank Tender: Dr. Gaitan Following Filter Tank Tender: Will be changing to Filter Tank Tender closer to home ([place]) Type and Brand [...] of infection. The restrictions were explained to thepatient in verbal and written form, and the patient verbalized understanding. documented in this [id number] Hospital course Narrative* Gayle Nair DO - 01/14/2023 11:40 AM EDT [facility] DISCHARGE SUMMARY -- [facility] Petar Penny Admitted: 01/09/2023 Discharge Date: 01/14/23 PCP Handoff Recommended Outpatient Testing CT chest to follow up lung nodule Results Pending At Discharge None Clinical Summary 77 y.o. male patient of Makayla Peters MD with history of CAD, DM2 presented to [facility] via transfer from [facility] for symptoms of chest pain, sob and [...] a wound/device check in ~ 10 days. Makayla Peters MD [address] [place] [address] Schedule an appointment as soon as possible for a visit in 2 week(s) Condition at Discharge: Stable Disposition: Home I reviewed discharge recommendations with the patient in person. Patient instructions, including activity, were given to the patient/family at discharge. On day of discharge I saw Petar Penny and spent: > 30 minutes on discharge. Completed by: Gayle Nair on 01/14/23, 11:42 AM Associated attestation - Paco Richard MD - 01/14/2023 3:22 PM EDT [facility] NOTE ADDENDUM I saw and examined the patient independently of the [facility] fellow. Labs, medications, imaging and other studies were reviewed. I agree with history, physical examination findings, medical decision making and the assessment/plan. documented in this [id number] History of Present illness Narrative* Linda Schofield CNP - 01/14/2023 7:41 AM EDT Electrophysiology Inpatient Follow-up Heart & Vascular [facility] 01/14/2023 Linda Schofield CNP [facility] Patient: Petar Penny Date of : 1945 (77 y.o.) PCP: Makayla Peters MD Assessment/Plan: * AV block Overview 2:1 block and type 1 second degree AV block noted, no evidence of CHB. S/p MDT DC PPM with LBB pacing Device site dry and intact, no hematoma. CXR negative for pneumothorax, does note nodule- communicated with [facility] Device check this morning with appropriate device functioning Reviewed restrictions and s/s of infection Will have patient follow up for wound/device check in ~10 days. He has follow up with his new robot programmer on 01/29. Okay to discharge from EP standpoint. Coronary artery disease involving squaxin heart Overview Prior PCI to LAD and RCA around 8-9 years ago. Prior echo showed EF 60% in 2016. SPECT in 2016 showed perfusion changes consistent with prior AR in portions of basal inferoseptal and mid to distal inferior apical/lateral segments. Assessment & Plan Echo showed EF 55%, Stress test negative for ischemia. Continue ASA, atorvastatin, and Plavix Subjective He is doing good this morning, some pain overnight at device site and took tylenol Telemetry shows paced rhythm ECG 12 Lead Final Result by Cali Hernandez DO (01/09/2023 1844) Echocardiogram complete w contrast Final Result by Lisa Yeung MD (01/10/2023 1635) LASTCCTADATE@@ Review of Systems: Review of Systems Constitutional: Negative. Respiratory: Negative. Cardiovascular: Negative. Skin: Positive for wound. Minimal pain at device site. Neurological: Negative. Psychiatric/Behavioral: Negative. Current Facility-Administered Medications Medication Dose Route Frequency Provider Last Rate Last Admin acetaminophen (TYLENOL) tablet 650 mg 650 mg Oral Q4H PRN Anton Temple DO 650 mg at 01/14/23 0542 amLODIPine (NORVASC) tablet 10 mg 10 mg Oral Daily Anton Temple DO 10 mg at 01/13/23 0942 aspirin EC tablet 81 mg 81 mg Oral Daily Anton Temple DO 81 mg at 01/13/23 09 atorvastatin (LIPITOR) tablet 40 mg 40 mg Oral Nightly Anton Temple DO 40 mg at 01/13/232237 clindamycin (CLEOCIN) IVPB 900 mg (premix) 900 mg Intravenous 60 Min Pre- Procedure Magali Schofield, HUMAIRA clopidogreL (PLAVIX) tablet 75 mg 75 mg Oral Daily Anton Temple DO 75 mg at 01/13/23 0943 losartan (COZAAR) tablet 50 mg 50 mg Oral Daily Anton Temple DO 50 mg at 01/13/23 1300 melatonin tablet 3 mg 3 mg Oral Nightly PRN Anton Temple DO omega-3 acid ethyl esters (LOVAZA) capsule 2 g 2 g Oral Daily Anton Temple DO 2 g at 01/13/23 0942 pantoprazole (PROTONIX) EC tablet 40 mg 40 mg Oral Daily Anton Temple DO 40 mg at 01/13/23 0942 senna (SENOKOT) tablet 8.6 mg 1 tablet Oral BID PRN Anton Temple DO sodium chloride (PF) (NS) flush 5 mL 5 mL Intravenous PRN Cali Hernandez DO And sodium chloride 0.9% (NS) 0-150 mL/hr Intravenous PRN Cali Hernandez DO sodium chloride (PF) (NS) flush 5 mL 5 mL Intravenous PRN Anton Temple DO And sodium chloride (PF) (NS) flush 5 mL 5 mL Intravenous Q8H DESIREE Anton Temple DO 5 mL at 01/14/23 0543 And sodium chloride 0.9% (NS) 0-150 mL/hr Intravenous PRN Anton Temple DO vitamin E capsule 200 Units 200 Units Oral Daily Anton Temple DO 200 Units at 01/13/23 0942 [...] Affect: Mood normal. No results found for: CHOL, LDLCALC, LDLDIRECT, TRIG, HDL Serum creatinine: 0.93 mg/dL 01/13/23 0419 Estimated creatinine clearance: 67.6 mL/min * Frank Acosta Jr. - 01/14/2023 7:04 AM EDT [employer] NOTE Product: Sling- horizontal arm Nursing to place * Gayle Nair DO - 01/13/2023 8:14 AM EDT [facility] PROGRESS NOTE Assessment and Plan 77 y.o. male patient of Makayla Peters MD with history of CAD, DM2 presented to [facility] via transfer from [facility] for symptoms of chest pain, sob and [...] Outpatient Testing: Quality Measures DVT Prophylaxis: lovenox Maradiaga Catheter: absent Code Status Full Code; code [...] normal mood and affect Associated attestation - Paco Richard MD - 01/13/2023 1:50 PM EDT [facility] NOTE ADDENDUM I saw and examined the patient independently of the [facility] fellow. Labs, medications, imaging and other studies [...] CAD-resume, ASA, Plavix. TTE with preserved LVEF. * Asher Gaitan MD - 01/13/2023 7:53 AM EDT Electrophysiology Progress Note Assessment/Plan: 2-1 AV block [...] to proceed with a permanent pacemaker for symptomaticbradycardia. He states he has been tired, and getting shortness of breath easily. We discussed the risks of bleeding, infection, lead perforation, the risk of a pacing to his cardiomyopathy, and others. Knowing these risks, the patient would like to proceed with a pacemaker later today. I have heldhis Lovenox, prescribed lower extremity compression devices, and [...] distress. Head is normocephalic. No epistaxis noted. Nosignificant muscular atrophy. Normal skin turgor. Neck with [...] 01/09/23 1736 NT PRO BNP pg/mL 375* * Tierney De Jesus CNP - 01/12/2023 9:19 AM EDT Cardiology Progress Note Assessment/Plan: Cardiovascular and Mediastinum Coronary artery disease involving squaxin heart Overview Prior PCI to LAD and RCA around 8-9 years ago. Prior echo showed EF 60% in 2016. SPECT in 2016 showed perfusion changes consistent with prior AR in portions of basal inferoseptal and mid [...] Lab Units 01/09/23 1736 TSH mcIU/mL 2.63 * Rabia Holloway MD - 01/12/2023 7:49 AM EDT [facility] PROGRESS NOTE Assessment and Plan 77 y.o. male patient of Makayla Peters MD with history of CAD, DM2 presented to [facility] via transfer from [facility] for symptoms of chest pain, sob and [...] Outpatient Testing: Quality Measures DVT Prophylaxis: lovenox Maradiaga Catheter: absent Code Status Full Code; code [...] normal coloration Psych: normal mood and affect * Tierney De Jesus CNP - 01/11/2023 9:22 AM EDT Cardiology Progress Note Assessment/Plan: Cardiovascular and Mediastinum Coronary artery disease involving squaxin heart Overview Prior PCI to LAD and RCA around 8-9 years ago. Prior echo showed EF 60% in 2016. SPECT in 2016 showed perfusion changes consistent with prior AR in portions of basal inferoseptal and mid [...] Lab Units 01/09/23 1736 TSH mcIU/mL 2.63 * Rabia Holloway MD - 01/11/2023 8:02 AM EDT [facility] PROGRESS NOTE Assessment and Plan 77 y.o. male patient of Makayla Peters MD with history of CAD, DM2 presented to [facility] via transfer from [facility] for symptoms of chest pain, sob and [...] Outpatient Testing: Quality Measures DVT Prophylaxis: lovenox Maradiaga Catheter: absent Code Status Full Code; code [...] normal coloration Psych: normal mood and affect * Saúl Fox MD - 01/10/2023 10:38 AM EDT [facility] PROGRESS NOTE Assessment and Plan 77 y.o. male patient of Makayla Peters MD with history of CAD, DM2 presented to [facility] via transfer from [facility] for symptoms of chest pain, sob and noted AV block. AV Block EKG reviewed from [facility], appears 2nd degree v 3rd degree Uncertain etiology; concern would be for cardiac ischemia given cad hx, does not appear to have anyviral illness, not volume overloaded, NT Pro-BNP 375 appears only mildly elevated to suggest cmp QTC is prolonged Will hold lopressor Monitor on telemetry, replace any electrolytes Echo ordered Stress test pending Cardio following - No urgent indication for pacing at this time CAD With hx of multiple AR and stenting placement Pt on dapt will [...] Outpatient Testing: Quality Measures DVT Prophylaxis: lovenox Maradiaga Catheter: absent Code Status Full Code; code [...] normal mood and affect documented in this [id number] Note* Plan of Care - Asher Arias LPN - 01/14/2023 12:54 AM EDT Problem: Actual or potential alteration in health [...] of comfort function goal Outcome: Partially Met [id number] Miscellaneous Notes* Plan of Care - Asher Arias LPN - 01/14/2023 12:54 AM EDT Problem: Actual or potential alteration in health [...] of comfort function goal Outcome: Partially Met * Plan of Care - Annabel Ang RN - 01/11/2023 8:50 PM EDT Problem: Actual or potential alteration in health [...] of comfort function goal Outcome: Partially Met * Plan of Care - Annabel Ang RN - 01/10/2023 9:45 PM EDT Problem: Actual or potential alteration in health [...] of comfort function goal Outcome: Partially Met * Quick Note - Asher Gaitan MD - 01/10/2023 1:32 PM EDT OSH ekg reviewed 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 Junctional escape beats noted. No CHB identified. * Assessment & Plan Note - Tierney De Jesus CNP - 01/10/2023 9:04 AM EDT Associated Problem(s): Coronary artery disease involving squaxin heart Troponins negative. Patient denies any active chest pain at this time. Stress negative * Assessment & Plan Note - Tierney De Jesus CNP - 01/10/2023 8:51 AM EDT Associated Problem(s): AV block No urgent indication for pacing. Stress test 01/10 without ischemia. Echo 01/10 with preserved EF, no valvular abnormalities. Plan is for pacemaker tomorrow documented in this [id number] NoteTable formatting from the original result was not included. Additional [...] and include, but not limited to: , AR, bleeding, infection, nerve, vessel, cardiac injury, pneumothorax, [...] No immediate complications. Implants Pacemaker Pacer [id number] [place] Xt Dr Mri - [id number] - Implanted Inventory item: PACER W1DR01 DANUTA XT DR MRI Model/Cat number: [id number] Serial number: [id number] Fluid Dynamicist: MEDSNEHALO MONTEZ Device identifier: [id number] Device identifier type: GS1 Implant Date: 01/13/2023 GUDID Information Request status Successful Brand name: Danuta?? XT DR MRI SureScan?? Version/Model: W1DR01 Company name: [email or web address]. MRI safety info as of 01/13/23: MR Conditional Contains dry or latex rubber: No GMDN P.T. name: Dual-chamber implantable pacemaker, rate-responsive As of 01/13/2023 Status: Implanted Antibiotic Pouch Envelope Anti-Bacterial Aigis/Tyrx Pacer Resorbable Mesh - [id number] - Implanted Inventory item: ENVELOPE ANTI-BACTERIAL AIGIS/TYRX PACER RESORBABLE MESH Model/Cat number: [id number] Fluid Dynamicist: MEDGlobalPayO MONTEZ Lot number: [id number] Device identifier: [id number] Device identifier type: GS1 GUDID Information Request status (more content not included)...[facility]06-19-2023 Note Table formatting from the original result was not included. Additional [...] and include, but not limited to: , AR, bleeding, infection, nerve, vessel, cardiac injury, pneumothorax, [...] Complications: No immediate complications. Implants Pacemaker Pacer W1dr Danuta Wilder Marroquin Mri - [id number] - Implanted Inventory item: PACER W1DR DANUTA GEIGER DR MRI Model/Cat number: [id number] Serial number: [id number] Fluid Dynamicist: [employer] Device identifier: [id number] Device identifier type: GS1 Implant Date: 01/13/2023 GUDID Information Request status Successful Brand name: Danuta GEIGER DR MRI SureScan Version/Model: W1DR01 Company name: [email or web address]. MRI safety info as of 01/13/23: MR Conditional Contains dry or latex rubber: No GMDN P.T. name: Dual-chamber implantable pacemaker, rate-responsive As of 01/13/2023 Status: Implanted Antibiotic Pouch Envelope Anti-Bacterial Aigis/Tyrx Pacer Resorbable Mesh - [id number] - Implanted Inventory item: ENVELOPE ANTI-BACTERIAL AIGIS/TYRX PACER RESORBABLE MESH Model/Cat number: [id number] Fluid Dynamicist: [employer] Lot number: (more content not included)...[facility] 01-13-2023 Hospital Discharge instructions* Discharge Instructions* Linda Schofield, [facility] - 01/13/2023 12:07 PM EDT Images from [...] in 1 to 2 weeks. You may feela hard ridge along the incision. This usually [...] to the booklet or check with the events and promotions assistant. Call the doctor (who put the pacemaker [...] upper arm muscles. This includes pushing a glue spreader orvacuum, mopping floors, swimming, or swinging a golf [...] It depends on the type of work youdo and how you feel. Incision care You [...] a good idea to know your test resultsand keep a list of the medicines you [...] irregular heartbeat. After you call 911, the fulling mill operator may tell you to chew 1 [...] Log into your personal health record on [email or web address] and enter G550 in the Education box to learn more about Pacemaker Placement: What to Expect at Home. Current as of: October 06, 2013 Content Version: 10.3 [employer]. Care instructions adapted under license by your healthcare professional. If you have questions about a medical condition or this instruction, always ask your healthcare professional. [employer] disclaims any warranty or liability for your use of this information. documented in this [id number] Note* Plan of Care - Annabel Ang RN - 01/11/2023 8:50 PM EDT Problem: Actual or potential alteration in health [...] of comfort function goal Outcome: Partially Met [id number] Note* Plan of Care - Annabel Ang RN - 01/10/2023 9:45 PM EDT Problem: Actual or potential alteration in health [...] of comfort function goal Outcome: Partially Met T [id number] Note* Quick Note - Asher Gaitan MD - 01/10/2023 1:32 PM EDT OSH ekg reviewed 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 Junctional escape beats noted. No CHB identified. [id number] Evaluation + Plan note* Assessment & Plan Note - Tierney De Jesus CNP - 01/10/2023 9:04 AM EDTAssociated Problem(s): Coronary artery disease involving squaxin heart Troponins negative. Patient denies any active chest pain at this time. Stress negative [id number] Evaluation + Plan note* Assessment & Plan Note - Tienrey De Jesus CNP - 01/10/2023 8:51 AM EDTAssociated Problem(s): AV block No urgent indication for pacing. Stress test 01/10 without ischemia. Echo 01/10 with preserved EF, no valvular abnormalities. Plan is for pacemaker tomorrow [id number] Consult note* Linda Schofield CNP - 01/10/2023 8:38 AM EDTAssociated Order(s): IP CONSULT TO CARDIOLOGY Electrophysiology Inpatient Consult Heart & Vascular [facility] 01/10/2023 Linda Schofield CNP [facility] Patient: Petar Penny Date of : 1945 (77 y.o.) Referring Provider: No ref. provider found PCP: Makayla Peters MD Assessment/Plan: * AV block Assessment & Plan Per telemetry review noted second-degree type I and possible 2-1 block. No complete heart block noted. Unable to find EKG from [facility]. Recommend stress test in the setting of new onset chest pain over the past few weeks. His echo is pending. No urgent indication for pacing. Will make final recommendations pending stress/echo results. Holding home metoprolol. Coronary artery disease involving squaxin heart Overview Prior PCI to LAD and RCA around 8-9 years ago. Prior echo showed EF 60% in 2016. SPECT in 2016 showed perfusion changes consistent with prior AR in portions of basal inferoseptal and mid to distal inferior apical/lateral segments. Assessment & Plan Troponins negative. Patient denies any active chest pain at this time. Ordered stressed test. Subjective Reason for Consultation: AV block History of Present Illness: Petar Penny is a 77 y.o. male with past medical history of CAD s/p PCI, COPD, type 2 diabetes, former smoker presented to [facility] for complaints of chest pain and shortness of breath. According to [facility] patient was in an second degree or third-degree AV block and was transferred to [place] for further evaluation. Says he has noticed intermittent chest pain and shortness of breath over the past few weeks. He states his chest pain shortness of breath comes with activity when he is outside, and both resolve at rest. He states getting on the treadmill for 8 minutes and gettingon a stationary bike 3 times a week [...] distal stent had focal stenosis. Independently reviewed tel emetry that shows second-degree type I block and 2-1 block. Unable to review EKG from [facility]. His echocardiogram is pending. Independently reviewed labs showing a K of 3.7, creatinine 0.94 mag 2.0, troponin 18 and 17, TSH 2.63, NT proBNP 375. Reviewed EKG from this hospitalization that shows sinus rhythm with first-degree block, and prior EKG in 2013 showing sinus rhythm with first-degree block. ECG 12 Lead Final Result by Cali Hernandez DO (01/09/2023 1844) Echocardiogram complete w contrast by Merly Elise RDCS (01/09/20232007) Review of Systems: Review of Systems Constitutional: Negative. Respiratory: Negative. Cardiovascular: Negative. Skin: Negative. Neurological: Negative. Psychiatric/Behavioral: Negative. Past Medical History: Diagnosis Date CAD (coronary artery disease) 01/15/2016 Stent COPD (chronic obstructive pulmonary disease) ([facility]) Diabetes 1.5, managed as type 2 ([facility]) 01/15/2016 Hyperlipidemia 01/15/2016 Hypertension 01/15/2016 Past Surgical [...] 650 mg 650 mg Oral Q4H PRN Anton Temple DO albuterol inhaler 2 puff 2 puff Inhalation Once in imaging Linda Schofield, HUMAIRA amLODIPine (NORVASC) tablet 10 mg 10 mg Oral Daily Anton Temple DO 10 mg at 01/09/232054 aspirin EC tablet 81 mg 81 mg Oral Daily Anton Temple DO 81 mg at 01/09/232051 atorvastatin (LIPITOR) tablet 40 mg 40 mg Oral Nightly Anton Temple DO 40 mg at 01/09/232051 clopidogreL (PLAVIX) tablet 75 mg 75 mg Oral Daily Anton Temple DO losartan (COZAAR) tablet 50 mg 50 mg Oral Daily Anton Temple DO melatonin tablet 3 mg 3 mg Oral Nightly PRN Anton Temple DO omega-3 acid ethyl esters (LOVAZA) capsule 2 g 2 g Oral Daily Anton Temple DO pantoprazole (PROTONIX) EC tablet 40 mg 40 mg Oral Daily Anton Temple DO perflutren lipid microspheres (DEFINITY) 0.143 mg/mL solution 0-10 mL of mixture 0-10 mL of mixtureIntravenous Once in imaging Parail, Steffen Nydia, MD 3 mL of mixture at 01/09/231950 senna (SENOKOT) tablet 8.6 mg 1 tablet Oral BID PRN Anton Temple DO sodium chloride (PF) (NS) flush 5 mL 5 mL Intravenous PRN Cali Hernandez DO And sodium chloride 0.9% (NS) 0-150 mL/hr Intravenous PRN Cali Hernandez DO sodium chloride (PF) (NS) flush 5 mL 5 mL Intravenous PRN Anton Temple DO And sodium chloride (PF) (NS) flush 5 mL 5 mL Intravenous Q8H DESIREE Anton Temple DO 5 mL at 01/09/232106 And sodium chloride 0.9% (NS) 0-150 mL/hr Intravenous PRN Anton Temple DO sodium chloride 0.9% (NS) 75 mL/hr Intravenous Continuous Anton Temple DO 75 mL/hr at 01/10/23 0504 Rate Verify at 01/10/23 0504 vitamin E capsule 200 Units 200 Units Oral Daily Anton Temple DO Objective: Physical Examination: BP (!) [...] Behavior: Behavior normal. No results found for: CHOL, LDLCALC, LDLDIRECT, TRIG, HDL Serum creatinine: 0.94 mg/dL 01/10/23 0445 [...] and Plavix. He is not on a beta- tami. His labs are remarkable for normal potassium, [...] I independently reviewed his EKG from August 2013showing sinus bradycardia with a first-degree AV block and a right bundle branch block pattern. The patient was transferred from an outside hospital with report of complete heart block. Plan: Report of complete heart block: We will obtain the outside hospital EKG. We have not been able to identify complete heart block during his admission here at [facility]. The patient does have evidence of prior conduction system disease noted in 2013, so progression of conduction disease isthe most likely cause of his bradycardia. Additionally, he has an echo and stress test pending. Once we are able to obtain his outside hospital records, echo results, and the results of stress test, we will consider a permanent pacemaker, especially if complete heart block was noted. The timingof this pacemaker will be based on lab availability and staff availability. Coronary disease: Continue antiplatelet medications. Stress test is pending. Of note, the patient was able to exert himself while working out at home without symptoms. His troponins are negative. HisEKG does not show any ST changes consistent with ischemia. [id number] Consult note* Chandu Lindaliliam Ott CNP - 01/10/2023 8:38 AM EDTAssociated Order(s): IP CONSULT TO CARDIOLOGY Electrophysiology Inpatient Consult Heart & Vascular [facility] 01/10/2023 Linda Damiansavanah Schofield CNP [facility] Patient: Petar Penny Date of : 1945 (77 y.o.) Referring Provider: No ref. provider found PCP: Makayla Peters MD Assessment/Plan: * AV block Assessment & Plan Per telemetry review noted second-degree type I and possible 2-1 block. No complete heart block noted. Unable to find EKG from [facility]. Recommend stress test in the setting of new onset chest pain over the past few weeks. His echo is pending. No urgent indication for pacing. Will make final recommendations pending stress/echo results. Holding home metoprolol. Coronary artery disease involving squaxin heart Overview Prior PCI to LAD and RCA around 8-9 years ago. Prior echo showed EF 60% in 2016. SPECT in 2016 showed perfusion changes consistent with prior AR in portions of basal inferoseptal and mid to distal inferior apical/lateral segments. Assessment & Plan Troponins negative. Patient denies any active chest pain at this time. Ordered stressed test. Subjective Reason for Consultation: AV block History of Present Illness: Petar Penny is a 77 y.o. male with past medical history of CAD s/p PCI, COPD, type 2 diabetes, former smoker presented to [facility] for complaints of chest pain and shortness of breath. According to [facility] patient was in an second degree or third-degree AV block and was transferred to [place] for further evaluation. Says he has noticed intermittent chest pain and shortness of breath over the past few weeks. He states his chest pain shortness of breath comes with activity when he is outside, and both resolve at rest. He states getting on the treadmill for 8 minutes and gettingon a stationary bike 3 times a week [...] distal stent had focal stenosis. Independently reviewed tel emetry that shows second-degree type I block and [...] 01/15/2016 Stent COPD (chronic obstructive pulmonary disease) ([facility]) Diabetes 1.5, managed as type 2 ([facility]) 01/15/2016 Hyperlipidemia 01/15/2016 Hypertension 01/15/2016 Past Surgical [...] 650 mg 650 mg Oral Q4H PRN Anton Temple DO albuterol inhaler 2 puff 2 puff Inhalation Once in imaging Linda Schofield, HUMAIRA amLODIPine (NORVASC) tablet 10 mg 10 mg Oral Daily Anton Temple DO 10 mg at 01/09/232054 aspirin EC tablet 81 mg 81 mg Oral Daily Anton Temple DO 81 mg at 01/09/232051 atorvastatin (LIPITOR) tablet 40 mg 40 mg Oral Nightly Anton Temple DO 40 mg at 01/09/232051 clopidogreL (PLAVIX) tablet 75 mg 75 mg Oral Daily Anton Temple DO losartan (COZAAR) tablet 50 mg 50 mg Oral Daily Anton Temple DO melatonin tablet 3 mg 3 mg Oral Nightly PRN Anton Temple DO omega-3 acid ethyl esters (LOVAZA) capsule 2 g 2 g Oral Daily Anton Temple DO pantoprazole (PROTONIX) EC tablet 40 mg 40 mg Oral Daily Anton Temple DO perflutren lipid microspheres (DEFINITY) 0.143 mg/mL solution 0-10 mL of mixture 0-10 mL of mixtureIntravenous Once in imaging Parail, Steffen Stafford MD 3 mL of mixture at 01/09/231950 senna (SENOKOT) tablet 8.6 mg 1 tablet Oral BID PRN Anton Temple DO sodium chloride (PF) (NS) flush 5 mL 5 mL Intravenous PRN Cali Hernandez DO And sodium chloride 0.9% (NS) 0-150 mL/hr Intravenous PRN Cali Hernandez DO sodium chloride (PF) (NS) flush 5 mL 5 mL Intravenous PRN Anton Temple DO And sodium chloride (PF) (NS) flush 5 mL 5 mL Intravenous Q8H DESIREE Anton Temple DO 5 mL at 01/09/232106 And sodium chloride 0.9% (NS) 0-150 mL/hr Intravenous PRN Anton Temple DO sodium chloride 0.9% (NS) 75 mL/hr Intravenous Continuous Anton Temple DO 75 mL/hr at 01/10/23 0504 Rate Verify at 01/10/23 0504 vitamin E capsule 200 Units 200 Units Oral Daily Anton Temple DO Objective: Physical Examination: BP (!) [...] Behavior: Behavior normal. No results found for: CHOL, LDLCALC, LDLDIRECT, TRIG, HDL Serum creatinine: 0.94 mg/dL 01/10/23 0445 [...] and Plavix. He is not on a beta- tami. His labs are remarkable for normal potassium, [...] I independently reviewed his EKG from August 2013showing sinus bradycardia with a first-degree AV block and a right bundle branch block pattern. The patient was transferred from an outside hospital with report of complete heart block. Plan: Report of complete heart block: We will obtain the outside hospital EKG. We have not been able to identify complete heart block during his admission here at [facility]. The patient does have evidence of prior conduction system disease noted in 2013, so progression of conduction disease isthe most likely cause of his bradycardia. Additionally, he has an echo and stress test pending. Once we are able to obtain his outside hospital records, echo results, and the results of stress test, we will consider a permanent pacemaker, especially if complete heart block was noted. The timingof this pacemaker will be based on lab availability and staff availability. Coronary disease: Continue antiplatelet medications. Stress test is pending. Of note, the patient was able to exert himself while working out at home without symptoms. His troponins are negative. HisEKG does not show any ST changes consistent with ischemia. documented in this [id number] History and physical note* Anton Temple, - 01/09/2023 6:07 PM EDT [facility] HISTORY AND PHYSICAL -- [facility] Patient Name: Petar Penny : 1945 MR #: [id number] Admit Date: 01/09/2023 Physicians: Makayla Peters MD (Family); No ref. provider found (Referring) Petar Penny is a 77 y.o. male patient of Makayla Peters MD with history of CAD, DM2 presented to [facility] via transfer from [facility] for symptoms of chest pain, sob and notedAV block. AV Block EKG reviewed from [facility], appears 2nd degree v 3rd [...] atropine/external pacing CAD With hx of multiple AR and stenting placement Pt on dapt will [...] hospital or ED yes -- care site [facility] Quality Measures DVT Prophylaxis: SCDs Maradiaga Catheter: absent Medication Reconciliation: Verified Risk variables present on admission: Cardiac Arrhythmia and Bradycardia. Please see assessment and plan for further details. Code Status Full Code; code status verified on 01/09/2023 with patient (capacity intact) Chief Complaint SOB History of Present Illness 77-year-old male with past medical history of CAD with multiple stenting, hypertension, COPD who presents to [place] from outside hospital with concern for AV [...] well. No fevers or chills, abdominal pain, na usea, vomiting. He has been eating well, no [...] 01/15/2016 Stent COPD (chronic obstructive pulmonary disease) ([facility]) Diabetes 1.5, managed as type 2 ([facility]) 01/15/2016 Hyperlipidemia 01/15/2016 Hypertension 01/15/2016 Past Surgical [...] normal coloration Psych: normal mood and affect [employer] Work Phone: [phone]) 900-263206-15-2023 History and physical note* Anton Temple DO - 01/09/2023 6:07 PM EDT [facility] HISTORY AND PHYSICAL -- [facility] Patient Name: Petar Penny : 1945 MR #: [id number] Admit Date: 01/09/2023 Physicians: Makayla Peters MD (Family); No ref. provider found (Referring) Petar Penny is a 77 y.o. male patient of Makayla Peters MD with history of CAD, DM2 presented to [facility] via transfer from [facility] for symptoms of chest pain, sob and notedAV block. AV Block EKG reviewed from [facility], appears 2nd degree v 3rd [...] atropine/external pacing CAD With hx of multiple AR and stenting placement Pt on dapt will [...] hospital or ED yes -- care site [facility] Quality Measures DVT Prophylaxis: SCDs Maradiaga Catheter: absent Medication Reconciliation: Verified Risk variables present on admission: Cardiac Arrhythmia and Bradycardia. Please see assessment and plan for further details. Code Status Full Code; code status verified on 01/09/2023 with patient (capacity intact) Chief Complaint SOB History of Present Illness 77-year-old male with past medical history of CAD with multiple stenting, hypertension, COPD who presents to [place] from outside hospital with concern for AV [...] well. No fevers or chills, abdominal pain, na usea, vomiting. He has been eating well, no [...] (HCC) Diabetes 1.5, managed as type 2 ([facility]) 01/15/2016 Hyperlipidemia 01/15/2016 Hypertension 01/15/2016 Past Surgical [...] normal mood and affect documented in this [id number] Physician Emergency department Note* Cali Hernandez DO - 01/09/2023 5:42 PM EDTAssociated Order(s): ECG 12 Lead ED PROVIDER NOTE [facility] EMERGENCY DEPARTMENT NAME: Petar Penny AGE: 77 y.o. : 1945 VISIT DATE: 01/09/2023 CSN: [id number] PCP: Makayla Peters MD Chief Complaint Patient presents with [...] daily. He denies any other associated symptoms. Hedenies any headache, dizziness, vision changes, fevers, chills, [...] 01/15/2016 Stent COPD (chronic obstructive pulmonary disease) ([facility]) Diabetes 1.5, managed as type 2 ([facility]) 01/15/2016 Hyperlipidemia 01/15/2016 Hypertension 01/15/2016 Past Surgical [...] 45.9 41.0 - 51.0 mm Hg pO2, Jonh 39 25 - 40 mm Hg Base [...] Patchy left basilar pulmonary infiltrates. 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 History and physical exam were completed as above. Patient was lyingin the bed in no acute distress. On [...] erythema or warmth. Symmetric distal pulses. Differential diagnosisincludes but is not limited to heart failure, infectious process, inflammatory process, ACS, pulmonary embolism. I have a low suspicion for pulmonary embolism as a cause for the patient's symptoms atthis time. Interventional cardiology was consulted and I [...] criteria at this time. The patient was admittedfor further care. At the time of admission, [...] been specified. Cali Hernandez DO 01/09/23 1844 [id number] Emergency department Note* Cali Hernandez DO - 01/09/2023 5:42 PM EDTAssociated Order(s): ECG 12 Lead ED PROVIDER NOTE [facility] EMERGENCY DEPARTMENT NAME: Petar Penny AGE: 77 y.o. : 1945 VISIT DATE: 01/09/2023 CSN: [id number] PCP: Makayla Peters MD Chief Complaint Patient presents with [...] daily. He denies any other associated symptoms. Hedenies any headache, dizziness, vision changes, fevers, chills, [...] 01/15/2016 Stent COPD (chronic obstructive pulmonary disease) ([facility]) Diabetes 1.5, managed as type 2 ([facility]) 01/15/2016 Hyperlipidemia 01/15/2016 Hypertension 01/15/2016 Past Surgical [...] Patchy left basilar pulmonary infiltrates. Workstation ID: [id number] Echocardiogram complete (Results Pending) ECG 12 Lead Date/Time: 01/09/2023 5:51 PM Performed by: Cali Hernandez DO Authorized by: Cali Hernandez DO Interpreted by ED attending physician Comparison: compared with previous ECG from 01/09/2023 Rhythm: sinus rhythm BPM: 63 Conduction: complete RBBB, LAFB and 1st degree ST Segments: ST segments normal T Inversion: aVR and V1 SD Interval: 392 QRS Interval: 142 QT Interval: 476 Other findings: prolonged QTc interval Clinical impression: abnormal ECG Medical Decision Making Patient was seen and examined. History and physical exam were completed as above. Patient was lyingin the bed in no acute distress. On [...] erythema or warmth. Symmetric distal pulses. Differential diagnosisincludes but is not limited to heart failure, infectious process, inflammatory process, ACS, pulmonary embolism. I have a low suspicion for pulmonary embolism as a cause for the patient's symptoms atthis time. Interventional cardiology was consulted and I spoke with Paraangela regarding the patient who recommended the patient [...] criteria at this time. The patient was admittedfor further care. At the time of admission, [...] been specified. Cali Hernandez DO 01/09/23 1844 * Usman Alex RN - 01/09/2023 5:34 PM EDT Pt to ED from [facility] for cardiology consult 2/2 complete heart block. Hx of 5 stents. EP not availableat [facility]. Accepted by [facility]. Pt denies CP, SOB, dizziness, light headedness, or other symptoms. Pt states he was working outside on a deck this afternoon and he became weak and had onset of cp at thattime. * Soumya Steen RN - 01/09/2023 5:31 PM EDT Bed: 56 Expected date: Expected time: Means of arrival: Comments: Medic, heart block tx, rekha documented in this [id number] Emergency department Triage note* Usman Alex RN - 01/09/2023 5:34 PM EDT Pt to ED from [facility] for cardiology consult 2/2 complete heart block. Hx of 5 stents. EP not availableat [facility]. Accepted by Parail. Pt denies CP, SOB, dizziness, light headedness, or other symptoms. Pt states he was working outside on a deck this afternoon and he became weak and had onset of cp at thattime. [id number] Emergency department Note* Soumya Steen RN - 01/09/2023 5:31 PM EDT Bed: 56 Expected date: Expected time: Means of arrival: Comments: Medic, heart block tx, peoples [facility] summary Author Braden Hammonds [facility] September 19, 2023 7:40am Note Date/Time September 19, 2023 7:40am [facility] Medical Records Department [address] [place] [address] Instructions for Home/Discharge Instructions 09/19/23 0740 MR#: [id number] Acct: [id number] Name: PETAR PENNY Rep #:[id number] : 1945 78 From: Braden Hammonds MD PCP: Dr. Makayla Peters MD Status:A DM GRANT Discharge Instructions Diet Discharge Diet: No restrictions (You may continue your normal diet.) Activity Discharge Activity: Return to Normal Activity Lifting Restrictions: 10 pounds and also avoid any pushing or pulling for 3 daysafter your test. Additional Activity Instructions:: You must have someone drive you home. Do not drive until instructed by your doctor. You must have someone stay with you all night after your test. Rest in bed or onthe couch until the next morning. Limit the number of times you go up and down stairs the day of your test. Apply pressure to the puncture site if you sneeze or cough. Dressing / Incision Call your doctor if your incision/area has: Increased Pain/ Swelling, Increased Redness, Foul Smelling Discharge and Swelling at the incision site Call your doctor if you observe: Fever of 101 or Higher Additional Dressing/Incision Instructions:: Keep the dressing (bandage) on untilthe next morning. You may then shower, but do not take a tub bath for 5 days after your test. It is normal to have some tenderness and discomfort at the puncture site. Sometimes bruising also occurs. However, if pain, numbness, or coldness occurs below the puncture site (in your leg, toes, arms or fingers) call your doctor atonce. You may have a small, marble sized knot at the puncture site. This is normal. Donot rub it. It will go away in 4-6 weeks. Bleeding can occur from the area where the puncture was done. Blood may spurt ordrip from the site. If blood spurts, apply pressure right away to stop bleeding and call 911. Although rare, bleeding into the tissue (hematoma) can also occur.If this happens, a large, firm area goose egg under the skin will appear. If any of these occur, lie down as flat as you can and have someone apply firm pressure to the cath site with a gauze pad or a clean washcloth for 10-15 minutes. Call 911 or go to the Emergency Department. Follow Up Care Test Results: Test results from this visit will be discussed in further detail at your follow- up appointment, if applicable. Discharge Plan Admission Admit Date/Time: 09/18/23 09:22 Attending Provider: Braden Hammonds Primary Care Provider: Makayla Peters Consulting Providers: Faizan Fraga NP Discharge Orders/Prescriptions Prescriptions: New clopidogrel 75 mg Tablet 75 mg PO DAILY Qty: 60 2RF Continued nitroglycerin 0.4 mg tablet, sublingual 0.4 mg Sublingual Q5M PRN (Reason: Chest Pain) Qty: 25 3RF losartan 50 MG tablet 50 mg PO DAILY Patient Comments: blood pressure/heart omega-3 fatty acids 300 MG capsule 300 mg PO DAILY Patient Comments: cholesterol pantoprazole 40 MG tablet 40 mg PO DAILY vitamin E (dl, acetate) 400 UNITS capsule 400 units PO DAILY aspirin 81 MG tablet 81 mg PO DAILY@0800 0RF amlodipine 10 mg tablet 10 mg PO DAILY Qty: 90 3RF atorvastatin 40 mg tablet 40 mg PO DAILY Qty: 90 3RF Referrals / Follow Up: Makayla Peters MD [Primary Care Provider] - Disposition Disposition (needs filled in before D/C Order can be placed): Home, Self Care 09/19/23 0740<Electronically signed by Braden Hammonds MD>Braden Hammonds MD CC: YURI Fraga; Dr. 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 Essential hypertension chron ic History of coronary artery stent placement chronic Pure hypercholesterolemia ch ronic Carotid stenosis acute PVD (peripheral vascular disease) acute Abdominal aortic aneurysm without rupture [facility] Work Phone: Evaluation note* Diagnosis Onset Date Resolution Status Carotid stenosis acute PVD (peripheral vascular disease) acute Abdominal aortic aneurysm without rupture [facility] Work Phone: Evaluation note* Diagnosis Onset Date Resolution Status Abdominal aortic aneurysm without rupture chronic 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 Essential hypertension chron ic History of coronary artery stent placement chronic Pure hypercholesterolemia [facility] Work Phone: Evaluation note* Diagnosis AV block- Primary Unspecified atrioventricular block Heart block Unspecified conduction disorder Chest pain, unspecified type Shortness of breath Elevated blood pressure reading Elevated blood pressure reading without diagnosis of hypertension Prolonged Q-T interval on ECG Nonspecific abnormal electrocardiogram (ECG) (EKG) Community acquired pneumonia, unspecified laterality AV block Unspecified atrioventricular block Coronary artery disease involving squaxin heart [facility] [place] noteNo assessment information availableW[facility] Work Phone: Evaluation note* Diagnosis Onset Date Resolution Status Presence of permanent cardiac pacemaker acute Abdominal aortic aneurysm without rupture chronic Essential hypertension chron ic History of coronary artery stent placement chronic Pure hypercholesterolemia ch ronic Carotid stenosis acute Abdominal aortic aneurysm without rupture chronic Dyspnea on exertion acute Mass of upper lobe of right lung acute VANDANA (obstructive sleep apnea) chronic Presence of permanent cardiac pacemaker acute Second degree AV block, Mobitz type I acute [facility] Work Phone: Evaluation note* Diagnosis Onset Date Resolution Status Presence of permanent cardiac pacemaker acute Abdominal aortic aneurysm without rupture chronic Essential hypertension chron ic History of coronary artery stent placement chronic Pure hypercholesterolemia ch ronic Carotid stenosis acute Abdominal aortic aneurysm without rupture chronic Dyspnea on exertion acute Mass of upper lobe of right lung acute VANDANA (obstructive sleep apnea) chronic Presence of permanent cardiac pacemaker acute Second degree AV block, Mobitz type I acute Squamous cell lung cancer [place] Squamous cell lung cancer ac [place] [facility] Work Phone: Evaluation note* Diagnosis Mediastinal lymphadenopathy Enlargement of lymph nodes [facility] Diagnosis Squamous cell carcinoma of right lung Neoplasm of unspecified behavior of unspecified site NSCLC of right lung [facility] NSCLC of right lung NSCLC of right lung [facility] Diagnosis Squamous cell carcinoma of right lung- Primary Neoplasm of unspecified behavior of unspecified site NSCLC of right lung [facility] Diagnosis Squamous cell carcinoma of right lung- Primary Squamous cell carcinoma of right lung NSCLC of right lung Acute post-operative pain CAD (coronary artery disease) Coronary atherosclerosis of unspecified type of vessel, squaxin or graft Essential hypertension, benign Overweight (BMI 25.0-29.9) Overweight Hyperlipidemia Other and unspecified hyperlipidemia VANDANA (obstructive sleep apnea) Obstructive sleep apnea (adult) (pediatric) GERD (gastroesophageal reflux disease) Esophageal reflux Health education/counseling Counseling NOS At moderate risk for venous thromboembolism (VTE) Acute post-operative pain Leukocytosis Leukocytosis, unspecified [facility] Diagnosis Onset Date Resolution Status Presence of permanent cardiac pacemaker acute S/P coronary artery stent placement acute Essential hypertension chron ic [facility] Work Phone: Evaluation note* Diagnosis Squamous cell carcinoma of right lung- Primary [facility] Diagnosis Squamous cell carcinoma of right lung- Primary [facility] Diagnosis Squamous cell carcinoma of right lung- Primary Encounter for antineoplastic immunotherapy Difficulty coping with disease Anxiety Anxiety state, unspecified Decreased appetite Anorexia Insomnia, unspecified type [facility] Diagnosis Squamous cell carcinoma of right lung- Primary [facility] Diagnosis Squamous cell carcinoma of right lung- Primary [facility] Squamous cell carcinoma of right lung- Primary Encounter for antineoplastic immunotherapy [facility] Diagnosis Squamous cell carcinoma of right lung [facility] Diagnosis Squamous cell carcinoma of right lung- Primary [facility] Diagnosis Malignant neoplasm of upper lobe of right lung- Primary Malignant neoplasm of upper lobe, bronchus or lung [facility] Diagnosis Onset Date Resolution Status Presence of permanent cardiac pacemaker acute S/P coronary artery stent placement acute Essential hypertension chron ic Presence of permanent cardiac pacemaker acute Abdominal aortic aneurysm without rupture chronic Essential hypertension chron ic History of coronary artery stent placement August, chronic Pure hypercholesterolemia ch ronic Squamous cell lung cancer ch ronic Stage 1 mild COPD by GOLD classification [facility] Work Phone: Evaluation note* Diagnosis Malignant neoplasm of upper lobe of right lung- Primary Malignant neoplasm of upper lobe, bronchus or lung [facility] Diagnosis Non-small cell cancer of right lung [facility] Diagnosis Squamous cell carcinoma of right lung- Primary [facility] Diagnosis Squamous cell carcinoma of right lung- Primary Examination of participant in clinical trial [facility] Diagnosis Malignant neoplasm of upper lobe of right lung- Primary Malignant neoplasm of upper lobe, bronchus or lung [facility] Diagnosis Squamous cell carcinoma of right lung- Primary [facility] Diagnosis Herpes zoster without complication- Primary Squamous cell carcinoma of right lung [facility] Diagnosis Malignant neoplasm of upper lobe of right lung- Primary Malignant neoplasm of upper lobe, bronchus or lung [facility] Diagnosis Malignant neoplasm of upper lobe of right lung Malignant neoplasm of upper lobe, bronchus or lung [facility] Diagnosis Malignant neoplasm of upper lobe of right lung- Primary Malignant neoplasm of upper lobe, bronchus or lung [facility] Diagnosis Squamous cell carcinoma of right lung- Primary [facility] Diagnosis Malignant neoplasm of upper lobe of right lung- Primary Malignant neoplasm of upper lobe, bronchus or lung Neuropathy Mononeuritis of unspecified site [facility] Diagnosis Malignant neoplasm of upper lobe of right lung- Primary Malignant neoplasm of upper lobe, bronchus or lung Neuropathy Mononeuritis of unspecified site [facility] Diagnosis Malignant neoplasm of upper lobe of right lung Malignant neoplasm of upper lobe, bronchus or lung documented in [facility] Squamous cell carcinoma of right lung- Primary [facility] Diagnosis Malignant neoplasm of upper lobe of right lung- Primary Malignant neoplasm of upper lobe, bronchus or lung [facility] Diagnosis Squamous cell carcinoma of right lung- Primary [facility] Diagnosis Malignant neoplasm of upper lobe of right lung- Primary Malignant neoplasm of upper lobe, bronchus or lung [facility] Diagnosis Malignant neoplasm of upper lobe of right lung Malignant neoplasm of upper lobe, bronchus or lung [facility] Diagnosis Squamous cell carcinoma of right lung- Primary [facility] Diagnosis Squamous cell carcinoma of right lung- Primary [facility] Diagnosis Lung nodule Solitary pulmonary nodule [facility] Diagnosis Malignant neoplasm of upper lobe of right lung- Primary Malignant neoplasm of upper lobe, bronchus or lung [facility] Diagnosis Squamous cell carcinoma of right lung- Primary [facility] Diagnosis Malignant neoplasm of upper lobe of right lung Malignant neoplasm of upper lobe, bronchus or lung [facility] Diagnosis Squamous cell carcinoma of right lung- Primary [facility] Diagnosis Malignant neoplasm of upper lobe of right lung Malignant neoplasm of upper lobe, bronchus or lung [facility] Diagnosis Lung nodule- Primary Solitary pulmonary nodule [facility] Diagnosis Malignant neoplasm of upper lobe of right lung- Primary Malignant neoplasm of upper lobe, bronchus or lung Neuropathy involving both lower extremities Imbalance Abnormality of gait [facility] Diagnosis Squamous cell carcinoma of right lung [facility] Additional Instructions Try to get a home portable pulse oximeter and closely watch your oxygen levels periodically. If you stay below 90% for more than a minute or so, and/or you are feeling like your breathing is getting worse, return to the emergency department for further evaluation. Currently, CDC recommendations state that you should stay home through day 5 of symptoms, then as long as symptoms are improving, if you need to go to work or somewhere else you may for days 6-10 as long as you are wearing a mask the entire time. If you are feeling better after day 10 you may resume life is normal.[facility] Work Phone: Hospital Discharge instructions Additional Instructions Cardiac work-up negative today. Follow-up with Dr. Desai. Return if any worsening symptoms.[facility] Work Phone: Progress note Author Braden Hammonds [facility] September 19, 2023 7:37am Note Date/Time September 19, 2023 7:38am [facility] Medical Records Department [address] [place] [id number] Progress Note - Cardiology 09/19/23 0731 MR#: [id number] Acct: [id number] Name: PETAR PENNY Rep #:[id number] : 1945 78 From: Braden Hammonds MD PCP: Dr. Makayla Peters MD Status:A DM GRANT Location: [place] [address] Subjective Subjective Patient seen and evaluated and doing well. With no complaints this morning Objective Data Vital Signs: Vital Signs Temp Pulse Resp BP Pulse Ox O2 Del Method 97.7 F L 67 18 146/65 H 95 Room Air 09/19/23 06:16 09/19/23 06:16 09/19/23 06:16 09/19/23 06:16 09/19/23 06:16 09/19/23 06:16 Oxygen Delivery Method Room Air Weight: 205 lb Body Mass Index (BMI) 30.2 Intake & Output: Intake and Output for Last 24 Hours 09/17/23 09/18/23 09/19/23 23:59 23:59 23:59 Intake Total 1900 / 1900 Output Total 700 / 700 Balance 1200 / 1200 Lab / Micro Data 09/19/23 05:15 09/19/23 05:15 Labs: Laboratory Results - last 24 hr 09/18/23 08:54: Activated Clotting Time 276 H 09/18/23 09:20: Activated Clotting Time 250 H 09/19/23 05:15: WBC 7.3, RBC 4.54 L, Hgb 13.6, Hct 40.8, MCV 89.9, MCH 30.0, MCHC 33.3, RDW Std Deviation 42.5, RDW Coeff of Haseeb 13.0, Plt Count 214, MPV 9.6, Sodium 138, Potassium 3.8, Chloride 109 H, Carbon Dioxide 24.0, Anion Gap 5, BUN 9, Creatinine 0.96, Estim Creat Clear Calc 72.57, Est GFR (MDRD) Af Amer 98, Est GFR (MDRD) Non-Af 81, BUN/Creatinine Ratio 9.4 L, Glucose 95, Calcium 8.8, Total Bilirubin 1.00, AST 15, ALT 18, Alkaline Phosphatase 58, Total Protein6.2 L, Albumin 3.4, Globulin 2.8, Albumin/Globulin Ratio 1.2 Cardiology Labs/Tests 09/19/23 05:15: WBC 7.3, RBC 4.54 L, Hgb 13.6, Hct 40.8, MCV 89.9, MCH 30.0, MCHC 33.3, Plt Count 214, MPV 9.6, Sodium 138, Potassium 3.8, Chloride 109 H, Carbon Dioxide 24.0, Anion Gap 5, BUN 9, Creatinine 0.96, Est GFR (MDRD) Af Amer98, Est GFR (MDRD) Non-Af 81, BUN/Creatinine Ratio 9.4 L, Glucose 95, Calcium 8.8, Total Bilirubin 1.00 Rhythm: EKG: ECHO: Stress Test: Cardiac Cath: PCI: CT Surgery: Holter monitor: EPS: PPM: CXR: Chest CT Scan: Physical Exam Const alert, oriented x3 and no apparent distress General Appearance: cooperative HEENT hearing grossly normal bilaterally Head and Scalp: atraumatic Eyes EOMs intact bilaterally Neck General: normal visual inspection Chest inspection of chest normal and palpation of chest normal Resp normal respiratory effort Auscultation: clear to auscultation bilaterally Cardio regular rate, regular rhythm, S1 normal heart sound and S2 normal heart sound Jugular Venous Distention: JVD GI normal to inspection, nondistended, normoactive bowel sounds Extremity normal capillary refill and no pedal edema Peripheral Pulses: Yes pulses 2+ throughout and femoral pulses present Skin no rashes or lesions noted Neuro oriented x3 and CN's II-XII intact bilaterally Psych Appearance: grossly normal and appropriate Assessment & Plan Assessment/Plan (1) S/P coronary artery stent placement: PLAN: Patient is status post angioplasty and stenting of the left circumflex artery. Patient did well overnight postoperatively. At this time I will not recommend we make any changes. Will be discharged for outpatient follow-up. (2) Presence of permanent cardiac pacemaker: PLAN: Patient is status post permanent pacemaker implantation. This continues to be functioning well and will be followed up as an outpatient. (3) Essential hypertension: PLAN: Blood pressure appears to be under good control I would not recommend any changes. 09/19/23 0737 <Electronically signed by Braden Hammonds MD> Cosigner Signature (if applicable): CC: ~ Signed [facility] Work Phone: Reason for referral (narrative)* (Routine) Specialty Diagnoses / Procedures Referred By Haleigh rubio Referred To Contact KASSIE [address] [place] [address] Referral ID Status Reason Start Date Expiration Date Visits Re quested Visits Authorized * Radiology (Routine) - New Request Specialty Diagnoses / Procedures Referred By Contac t Referred To Contact Procedures PACEMAKER/ICD INTERROGATION Jake Valenzuela MD [address] [place] [address] Referral ID Status Reason Start Date Expiration Date V isits Requested Visits Authorized [id number] New Request 05/28/2023 06/21/2024 1 1 * (Routine) - New Request Specialty Diagnoses / Procedures Referred By Contac t Referred To Contact Procedures PLATELET MONITORING PER PROTOCOL Meron Mckeon, PAC [address] [place] [address] Referral ID Status Reason Start Date Expiration Date V isits Requested Visits Authorized [id number] New Request 05/28/2023 06/21/2024 1 1 * (Routine) - New Request Specialty Diagnoses / Procedures Referred By Contac t Referred To Contact Procedures DVT/VTE RISK ASSESSMENT Meron Mckeon, PAC [address] [place] [address] Referral ID Status Reason Start Date Expiration Date V isits Requested Visits Authorized [id number] New Request 05/28/2023 06/21/2024 1 1 * Radiology (Emergency) - New Request Specialty Diagnoses / Procedures Referred By Contac t Referred To Contact Procedures PACEMAKER/ICD INTERROGATION Jeyson-Roxann Valenzuela MD [address] [place] [address] Referral ID Status Reason Start Date Expiration Date V isits Requested Visits Authorized [id number] New Request 05/28/2023 06/21/2024 1 1 [facility] Consultation (Routine) - New Request Specialty Diagnoses / Procedures Referred By Haleigh rubio Referred To Contact Psychiatry Diagnoses Squamous cell carcinoma of right lung Difficulty coping with disease Polina Mera, WEATHER TEACHER-COMMUNITY NURSE [address] [place] [address] Referral ID Status Reason Start Date Expiration Date V isits Requested Visits Authorized [id number] New Request 10/01/2023 10/25/2024 1 1 [facility]ative)No reason for referral information [facility] Work Phone: Reason for visit Narrative* Bronchoscopy (Routine) - Closed Specialty Diagnoses / Procedures Referred By Haleigh rubio Referred To Contact Diagnoses Lung nodule Procedures NAVIGATIONAL BRONCHOSCOPY [facility] IN[facility] GDNCE DX W/CELL WASHG SPX SD BRONCHOSCOPY W/CPTR-ASST IMAGE-GUIDED NAVIGATION Mateo Mascorro MD [address] [place] [address] Phone: tel: fax: Referral ID Status Reason Start Date Expiration Date Visits Re quested Visits Authorized [id number] Closed 08/25/2024 09/19/2025 1 1 [facility] for visit Narrative* MRI/CAT Scan (Routine) - Closed Specialty Diagnoses / Procedures Referred By Haleigh rubio Referred To Contact Diagnoses Malignant neoplasm of upper lobe of right lung Procedures CT CHEST WITH CONTRAST CHG DIAGNOSTIC COMPUTED TOMOGRAPHY THORAX W/CONTRAST Isaac Hodge, WEATHER TEACHER-COMMUNITY NURSE [address] [place] [address] Phone: tel: fax: Referral ID Status Reason Start Date Expiration Date Visits Re quested Visits Authorized [id number] Closed 09/20/2024 10/15/2025 1 1 [facility]* MRI/CAT Scan (Routine) - Closed Specialty Diagnoses / Procedures Referred By Contac t Referred To Contact Diagnoses Squamous cell carcinoma of right lung Procedures CT CHEST WITHOUT CONTRAST CHG DIAGNOSTIC COMPUTED TOMOGRAPHY THORAX W/O CNTRST Kathryn Tobias MD [address] [place] [address] Phone: tel: fax: Referral ID Status Reason Start Date Expiration Date Visits Re quested Visits Authorized [id number] Closed 11/03/2024 11/28/2025 1 1 [facility] Summary Purpose Family History No Family History Records Found Relationship Condition Age at Onset Recorded Date/T calvin brother Diabetes mellitus Unknown brother Hypertension Unknown brother Malignant neoplasm Unknown brother Fracture of hip Unknown sister Diabetes mellitus Unknown Kidney disorder Unknown Coronary artery disease Unknown History of coronary artery bypass surgery Unknown Obesity Unknown Hyperlipidemia Unknown father Coronary artery disease Unknown Myocardial infarction Unknown Congestive heart failure Unknown daughter Migraine headache Unknown mother Malignant neoplasm Unknown Advance Directives No Advanced Directives Records Found Advance Directive Response Recorded Date/ Time Advance Directives Yes June 9:16am Living Will Yes March 18 11:41pm Power of Drafter Marine Yes March 18 11:41pm Advance Directive Response Recorded Date/ Time Name of Medical Power of Drafter Marine ROLAN PENNY April 06, 2022 10:39am Advance Directives Yes June 9:16am Living Will Yes April 06, 2022 10:39am Power of Drafter Marine Yes March 10:39am Advance Directive Response Recorded Date/ Time Name of Medical Power of Drafter Marine ROLAN PENNY April 06, 2022 10:39am Advance Directives Yes June 9:16am Living Will No April 06, 2022 11:08pm Power of Drafter Marine No March 11:08pm Advance Directive Response Recorded Date/ Time Name of Medical Power of Drafter Marine Rolan Penny September 10, 2022 5:49pm Advance Directives Yes June 8:16am Living Will Yes September 10, 023 5:49pm Power of Drafter Marine Yes September 10, 2022 5:49pm Latest Code Status on File Code Status Date Activated Date Inactivated Comments Full Code 01/13/2023 3:45 PM 01/14/2023 2:54 PM Code Status History Code Status Date Activated Date Inactivated Comments Full Code 01/09/2023 6:39 PM 01/13/2023 3:45 PM Advance Directive Response Recorded Date/ Time Advance Directives Yes June 9:16am Living Will Yes September 10 023 6:49pm Power of Drafter Marine Yes September 10, 2022 6:49pm Latest Code Status on File Code Status Date Activated Date Inactivated Comments Full Code 01/13/2023 3:45 PM 01/14/2023 2:54 PM Code Status History Code Status Date Activated Date Inactivated Comments Full Code 01/09/2023 6:39 PM 01/13/2023 3:45 PM Documents on File Type Date Recorded 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 Expl anation HealthCare Power of Drafter Marine 04/28/2023 11:40 AM Advance Directives/Living Will 04/28/2023 11:40 AM HealthCare Power of Drafter Marine 10/29/2014 Advance Directives/Living Will 10/29/2014 Latest Code Status on File Code Status Date Activated Date Inactivated Comments Full Code 04/28/2023 11:42 AM Documents on File Type Date Recorded 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 Expl anation HealthCare Power of Drafter Marine 04/28/2023 11:40 AM Advance Directives/Living Will 04/28/2023 11:40 AM HealthCare Power of Drafter Marine 10/29/2014 Advance Directives/Living Will 10/29/2014 Latest Code Status on File Code Status Date Activated Date Inactivated Comments Full Code 04/28/2023 11:42 AM Advance Directive Response Recorded Date/ Time Advance Directives on File Yes Fredis nails2023 7:10am Name of Medical Power of Drafter Marine Rolan Penny September 18, 2023 7:10am Advance Directives Yes August 7:10am Living Will Yes September 18 024 7:10am Power of Drafter Marine Yes September 18, 2023 7:10am Advance Directive Response Recorded Date/ Time Advance Directives on File Yes Fredis moseley 2023 8:10am Name of Medical Power of Drafter Marine Rolan Penny September 18, 2023 8:10am Advance Directives Yes August 8:10am Living Will Yes September 18 8:10am Power of Drafter Marine Yes September 18, 2023 8:10am Date Activated Date Inactivated Comments 04/28/2023 11:42 AM Date Activated Date Inactivated Comments 04/28/2023 11:42 AM Advance Directive Response Recorded Date/ Time Living Will Yes July 23 10:33pm Power of Drafter Marine Yes July 23, 2024 10:33pm Name of Medical Power of Drafter Marine Rolan solorio July 23, 2024 10:33pm Advance Directives Yes August 8:10am Advance Directive Response Recorded Date/ Time Advance Directives Yes August 8:10am Advance Directive Response Recorded Date/ Time Do you have a Healthcare Power of Drafter Marine? No January 05, 2025 7:58pm Advance Directives Yes August 8:10am Advance Directive Response Recorded Date/ Time Do you have a Healthcare Power of Drafter Marine? No January 05, 2025 7:58pm Living Will Yes December 19, 2023 9 :30am Do you have a Healthcare Power of Drafter Marine? 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 Essential hypertension History of coronary artery stent placement Pure hypercholesterolemia Carotid stenosis PVD (peripheral vascular disease) Abdominal aortic aneurysm without rupture Chief Complaint AAA/LAB E ORDERS PVD VASC PVD/ PVR 01/23/22 headache Reason for Visit Carotid stenosis PVD (peripheral vascular disease) Abdominal aortic aneurysm without rupture Chief Complaint AAA/LAB E ORDERS PVD VASC PVD/ PVR 01/23/22 headache GENERAL ILLNESS Reason for Visit Carotid stenosis PVD (peripheral vascular disease) Abdominal aortic aneurysm without rupture Chief Complaint 6 m fu CHEST PAIN Reason for Visit Abdominal aortic ane urysm without rupture 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 Essential hypertension History of coronary artery stent placement Pure hypercholesterolemia Chief Complaint OCCLUSION,STENOSIS O F BILAT CAROTID ARTERIES, AAA Chief Complaint OCCLUSION,STENOSIS O F BILAT CAROTID ARTERIES, AAA 6 M FU CAROTID ARTERY Pleural Mass 6 WK 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 Reason for Visit Presence of permanen t cardiac pacemaker Abdominal aortic aneurysm without rupture Essential hypertension History of coronary artery stent placement Pure hypercholesterolemia Carotid stenosis Abdominal aortic aneurysm without rupture Dyspnea on exertion Mass of upper lobe of right lung VANDANA (obstructive sleep apnea) Presence of permanent cardiac pacemaker Second degree AV block, Mobitz type I Chief Complaint OCCLUSION,STENOSIS O F BILAT CAROTID ARTERIES, AAA 6 M FU CAROTID ARTERY Pleural Mass 6 WK 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 ABNORMAL FINDING OF LUNG FIELD 1 M FU ABNORMAL FINDING OF LUNG FIELD C34.11 NEW-LUNG CA Reason for Visit Presence of permanen t cardiac pacemaker Abdominal aortic aneurysm without rupture Essential hypertension History of coronary artery stent placement Pure hypercholesterolemia Carotid stenosis Abdominal aortic aneurysm without rupture Dyspnea on exertion Mass of upper lobe of right lung VANDANA (obstructive sleep apnea) Presence of permanent cardiac pacemaker Second degree AV block, Mobitz type I Squamous cell lung cancer Squamous cell lung cancer Chief Complaint OCCLUSION,STENOSIS O F BILAT CAROTID ARTERIES, AAA 6 M FU CAROTID ARTERY Pleural Mass 6 WK 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 ABNORMAL FINDING OF LUNG FIELD 1 M FU ABNORMAL FINDING OF LUNG FIELD C34.11 NEW-LUNG CA ADRENAL GLAND MASS, STAT LABS LUNG CANCER Reason for Visit Presence of permanen t cardiac pacemaker Abdominal aortic aneurysm without rupture Essential hypertension History of coronary artery stent placement Pure hypercholesterolemia Carotid stenosis Abdominal aortic aneurysm without rupture Dyspnea on exertion Mass of upper lobe of right lung VANDANA (obstructive sleep apnea) Presence of permanent cardiac pacemaker Second degree AV block, Mobitz type I Squamous cell lung cancer Squamous cell lung cancer Chief Complaint Pacer Check Remote Pacer Check Remote Pacer Check Remote NSVT ON DEVICE CHECK NSVT ON DEVICE CHECK Amb Documentation Pacer Check Remote ABN STRESS ABN STRESS ABN STRESS Reason for Visit Presence of permanen t cardiac pacemaker S/P coronary artery stent placement Essential hypertension Chief Complaint NSVT ON DEVICE CHECK NSVT ON DEVICE CHECK Amb Documentation Pacer Check Remote ABN STRESS ABN STRESS ABN STRESS 6 M FU F/U per Kassie Palmer Dr. COPD COPD Reason for Visit Presence of permanen t cardiac pacemaker S/P coronary artery stent placement Essential hypertension Presence of permanent cardiac pacemaker Abdominal aortic aneurysm without rupture Essential hypertension History of coronary artery stent placement Pure hypercholesterolemia Squamous cell lung cancer Stage 1 mild COPD by GOLD classification Chief Complaint Admit Date ABD PAIN July 23, 2024 8:17pm Pacer Check Remote September 06, 2024 12:22am Chief Complaint Admit Date Pacer Check Remote September 06, 2024 12:22am ANNUAL IN CLINIC/MH @ 11:30 November 30 11:15am 6 M FU/ANDREA @ November 30, 2024 11:18a m 6 M FU December 08, 2024 10:40 am Reason for Visit Admit Date Presence of permanent cardiac pacemaker November 30, 2024 11:15am Second degree AV block, Mobitz type I Ma y 2024 11:15am Coronary artery disease November 30, 2024 11 :18am Presence of permanent cardiac pacemaker November 30, 2024 11:18am Abdominal aortic aneurysm without ruptur e November 30, 2024 11:18am Hypertension November 30, 2024 11:18a m Squamous cell lung cancer November 30, 2024 11:18am Asthma-COPD overlap syndrome December 08, 2 025 10:40am VANDANA (obstructive sleep apnea) December 08, 2024 10:40am Squamous cell lung cancer December 08, 2024 10:40am Chief Complaint Admit Date Pacer Check Remote September 06, 2024 12:22am Pacer Check Remote November 30, 2024 9:00am ANNUAL IN CLINIC/MH @ 11:November 30 11:15am 6 M FU/ANDREA @ November 30, 2024 11:18a m Pacer Check Remote December 06, 2024 3:46a m 6 M FU December 08, 2024 10:40 am Chief Complaint Admit Date Pacer Check Remote November 30, 2024 9:00am ANNUAL IN CLINIC/MH @ 11:30 November 30 11:15am 6 M FU/ANDREA @ November 30, 2024 11:18a m Pacer Check Remote December 06, 2024 3:46a m 6 M FU December 08, 2024 10:40 am DIZZINESS January 05, 2025 6:38 pm Chief Complaint Admit Date Pacer Check Remote November 30, 2024 9:00am ANNUAL IN CLINIC/MH @ 11:30 November 30 11:15am 6 M FU/ANRDEA @ November 30, 2024 11:18a m Pacer Check Remote December 06, 2024 3:46a m 6 M FU December 08, 2024 10:40 am DIZZINESS January 05, 2025 6:38 pm 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 February 09, 2025 8:47am Chief Complaint Admit Date Pacer Check Remote November 30, 2024 9:00am ANNUAL IN CLINIC/MH @ 11:30 November 30 11:15am 6 M FU/ANDREA @ November 30, 2024 11:18a m Pacer Check Remote December 06, 2024 3:46a m 6 M FU December 08, 2024 10:40 am DIZZINESS January 05, 2025 6:38 pm 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 February 09, 2025 8:47am AAA, Carotid US February 25, 2025 2:1 3pm Chief Complaint Admit Date Pacer Check Remote November 30, 2024 9:00am ANNUAL IN CLINIC/MH @ 11:30 November 30 11:15am 6 M FU/ANDREA @ November 30, 2024 11:18a m Pacer Check Remote December 06, 2024 3:46a m 6 M FU December 08, 2024 10:40 am DIZZINESS January 05, 2025 6:38 pm 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 February 09, 2025 8:47am AAA, Carotid US February 25, 2025 2:1 3pm Pacer Check Remote March 06, 2025 9: 00pm Reason for Visit Admit Date Presence of permanent cardiac pacemaker November 30, 2024 11:15am Second degree AV block, Mobitz type I Ma y 2024 11:15am Coronary artery disease November 30, 2024 11 :18am Presence of permanent cardiac pacemaker November 30, 2024 11:18am Abdominal aortic aneurysm without ruptur e November 30, 2024 11:18am Hypertension November 30, 2024 11:18a m Squamous cell lung cancer November 30, 2024 11:18am Asthma-COPD overlap syndrome December 08, 2 025 10:40am VANDANA (obstructive sleep apnea) December 08, 2024 10:40am Squamous cell lung cancer December 08, 2024 10:40am AAA (abdominal aortic aneurysm) February 252024 2:13pm Carotid disease, bilateral [place] 1st, 2 025 2:13pm Reason for Referral Specialty Diagnoses / Procedures Referred By Contac t Referred To Contact Cardiology Diagnoses AV block Procedures Outpatient Device Clinic Referral - Open for details Asher Gaitan MD [address] [place] [address] Referral ID Status Reason Start Date Expiration Date V isits Requested Visits Authorized [id number] Authorized 01/13/2023 01/13/2024 1 1 Specialty Diagnoses / Procedures Referred By Contac t Referred To Contact Procedures PACEMAKER/ICD INTERROGATION Jake Valenzuela MD [address] [place], [place] [id number] Referral ID Status Reason Start Date Expiration Date V isits Requested Visits Authorized [id number] New Request 04/28/2023 05/22/2024 1 1 Specialty Diagnoses / Procedures Referred By Contac t Referred To Contact Diagnoses NSCLC of right lung Procedures PFT STANDARD Meron Mckeon, PAC [address] [place], [place] [id number] Referral ID Status Reason Start Date Expiration Date V isits Requested Visits Authorized [id number] New Request 04/22/2023 05/16/2024 1 1 Specialty Diagnoses / Procedures Referred By Contac t Referred To Contact Diagnoses Squamous cell carcinoma of right lung Procedures CT CHEST WITH CONTRAST CHG DIAGNOSTIC COMPUTED TOMOGRAPHY THORAX W/CONTRAST Sarah Valentine APRN-COMMUNITY NURSE [address] [place], [place] [id number] Referral ID Status Reason Start Date Expiration Date Visits Requested Visits Authorized [id number] Authorized - Kassie 10/22/2023 11/15/2024 1 1 Referral ID Status Reason Start Date Expiration Date Visits Re quested Visits Authorized [id number] Closed 10/22/2023 11/15/2024 1 1 Specialty Diagnoses / Procedures Referred By Contac t Referred To Contact Diagnoses Non-small cell cancer of right lung Procedures CT CHEST WITHOUT CONTRAST CHG DIAGNOSTIC COMPUTED TOMOGRAPHY THORAX W/O CNTRST Jake Valenzuela MD [address] [place] [address] Referral ID Status Reason Start Date Expiration Date Visits Re quested Visits Authorized [id number] Closed 06/17/2023 07/11/2024 1 1 Specialty Diagnoses / Procedures Referred By Contac t Referred To Contact Diagnoses Malignant neoplasm of upper lobe of right lung Procedures CT CHEST WITH CONTRAST CHG DIAGNOSTIC COMPUTED TOMOGRAPHY THORAX W/CONTRAST Isaac Hodge, WEATHER TEACHER-COMMUNITY NURSE [address] [place] [address] Referral ID Status Reason Start Date Expiration Date V isits Requested Visits Authorized [id number] Authorized 02/25/2024 03/21/2025 1 1 Referral ID Status Reason Start Date Expiration Date Visits Re quested Visits Authorized [id number] Closed 02/25/2024 03/21/2025 1 1 Specialty Diagnoses / Procedures Referred By Contac t Referred To Contact Occupational Therapy Diagnoses Neuropathy Isaac Hodge, WEATHER TEACHER-COMMUNITY NURSE [address] [place] [address] Referral ID Status Reason Start Date Expiration Date V isits Requested Visits Authorized [id number] New Request 04/07/2024 05/02/2025 1 1 Referral ID Status Reason Start Date Expiration Date V isits Requested Visits Authorized [id number] Authorized 04/07/2024 05/02/2025 1 1 Specialty Diagnoses / Procedures Referred By Contact Referred To Contact Outpatient Rehabilitation Diagnoses Malignant neoplasm of upper lobe of right lung Neuropathy Isaac Hodge, WEATHER TEACHER-COMMUNITY NURSE [address] [place] [address] Referral ID Status Reason Start Date Expiration Date V isits Requested Visits Authorized [id number] New Request 04/08/2024 05/03/2025 1 1 Referral ID Status Reason Start Date Expiration Date Visits Re quested Visits Authorized [id number] Closed 04/07/2024 05/02/2025 1 1 Referral ID Status Reason Start Date Expiration Date V isits Requested Visits Authorized [id number] New Request 06/16/2024 07/11/2025 1 1 Referral ID Status Reason Start Date Expiration Date Visits Re quested Visits Authorized [id number] Closed 07/29/2024 07/11/2025 1 1 Specialty Diagnoses / Procedures Referred By Haleigh rubio Referred To Contact Oncology Diagnoses Squamous cell carcinoma of right lung Kathryn Tobias MD [address] [place] [address] Referral ID Status Reason Start Date Expiration Date V isits Requested Visits Authorized [id number] New Request 08/11/2024 09/05/2025 1 1 Additional Source Comments (unrecognized sect ion and content) No Status Records FoundNo Status Records FoundNo Status Records FoundNo Status Records FoundNo Status Records FoundNo Status Records Found INFORMATION SOURCE (unrecogn ized section and content) DATE CREATED AUTHOR 01/21/2018 [facility] DATE CREATED AUTHOR AUTHOR'S ORGANIZ ATION 05/31/2021 [facility] DATE CREATED AUTHOR AUTHOR'S ORGANIZ ATION 01/30/2023 [facility] DATE CREATED AUTHOR AUTHOR'S ORGANIZ ATION 02/25/2025 [facility] DATE CREATED AUTHOR AUTHOR'S ORGANIZ ATION 04/12/2025 [facility] DATE CREATED AUTHOR AUTHOR'S ORGANIZ ATION 04/13/2025 [facility] Goals (unrecognized section and content) Goals may be documented in a n alternate sectionGoals may be documented in an alternate sectionGoals may be documented in an alternate sectionGoals may be documented in an alternate sectionGoals may be documented in an alternate sectionGoals may be documented in an alternate sectionGoals may be documented in an alternate sectionGoals may be documented in an alternate sectionGoals may be documented in an alternate sectionGoals may be documented in an alternate sectionGoals may be documented in an alternate sectionGoals may be documented in an alternate sectionGoals may be documented in an alternate sectionGoals may be documented in an alternate sectionGoals may be documented in an alternate sectionGoals may be documented in an alternate sectionGoals may be documented in an alternate section Care Teams (unrecognized sec tion and content) Team Status: Active Member Role Status Dates Dr. Makayla Peters MD Family Provider Active Dr. Makayla Peters MD Primary Care Provider Active Team Status: Inactive Member Role Status Dates Dr. Makayla Peters MD Primary Care Provider, Refer ring Provider Active Litzy Woodard NP, CAPTAIN WAITER-C Attending Provider Active Team Status: Inactive Member Role Status Dates Dr. Makayla Peters MD Primary Care Provider Active Dr. Neymar Osborne DO Emergency Provider Active Software Build Engineer Relationship Specialty Start Date End Date Makayla Peters MD [address] [place] [address] PCP - General 01/09/23 Team Status: Active Member Role Status Dates Dr. Makayla Peters MD Primary Care Provider Active Dr. Frank Issa MD Attending Provider Active Team Status: Inactive Member Role Status Dates Dr. Makayla Peters MD Primary Care Provider Active Dr. Frank Issa MD Attending Provider, Referring Provider Active Software Build Engineer Relationship Specialty Start Date End Date Makayla Peters MD [address] [place] [address] PCP - General 01/09/23 Team Status: Inactive Member Role Status Dates Dr. Makayla Peters MD Primary Care Provider, Refer ring Provider Active Nadege Lopez Attending Provider Active Team Status: Active Member Role Status Dates Dr. Makayla Peters MD Primary Care Provider Active Dr. Frank Issa MD Attending Provider, Referring Provider Active Team Status: Inactive Member Role Status Dates Dr. Makayla Peters MD Primary Care Provider, Refer ring Provider Active Dr. Frank Issa MD Attending Provider Active Team Status: Inactive Member Role Status Dates Dr. Makayla Peters MD Primary Care Provider, Refer ring Provider Active Dr. Kashif Frost MD Attending Provider Active Team Status: Inactive Member Role Status Dates Dr. Makayla Peters MD Primary Care Provider Active Dr. Kashif Frost MD Attending Provider, Referring Pr ovider Active Team Status: Inactive Member Role Status Dates Dr. Makayla Peters MD Primary Care Provider, Refer ring Provider Active Raquel Eldridge NP, CAPTAIN WAITER-C Attending Provider Active Team Status: Inactive Member Role Status Dates Dr. Makayla Peters MD Primary Care Provider, Refer ring Provider Active Dr. Pj Ardon MD Attending Provider Active Team Status: Active Member Role Status Dates Dr. Makayla Peters MD Primary Care Provider Active Dr. Kashif Frost MD Referring Provider, Other Provid er Active Dr. Demetris Pimentel DO Attending Provider Active Team Status: Inactive Member Role Status Dates Dr. Makayla Peters MD Primary Care Provider Active Raquel Eldridge CAPTAIN WAITER, CAPTAIN WAITER-C Attending Provider, Referrin g Provider Active Team Status: Inactive Member Role Status Dates Dr. Makayla Peters MD Primary Care Provider Active Dr. Pj Ardon MD Attending Provider, Referring Pro vider Active Team Status: Active Member Role Status Dates Dr. Makayla Peters MD Primary Care Provider Active Dr. Pj Ardon MD Attending Provider, Referring Pro vider Active Software Build Engineer Relationship Specialty Start Date End Date Makayla Peters MD [address] [facility] [address] [place] [phone] PCP - General Family Medicine 03/26/23 Eloina Claros, RN Registered Nurse 03/26/23 Pj Ardon MB/DB [address] [facility] [address] [place], [place] [id number] Oncologist Medical Oncology 03/26/23 Software Build Engineer Relationship Specialty Start Date End Date Makayla Peters MD [address] [place] [phone] PCP - General Family Medicine 03/26/23 Eloina Claros, RN Registered Nurse 03/26/23 Pj Ardon MB/DB [address] [place] [address] Oncologist Medical Oncology 03/26/23 Software Build Engineer Relationship Specialty Start Date End Date Makayla Peters MD [address] [place] [phone] PCP - General Family Medicine 03/26/23 Eloina Claros, RN Registered Nurse 03/26/23 jP Ardon MB/DB [address] [place] [address] Oncologist Medical Oncology 03/26/23 Software Build Engineer Relationship Specialty Start Date End Date Makayla Peters MD [address] [place] [phone] PCP - General Family Medicine 03/26/23 Eloina Claros, RN Registered Nurse 03/26/23 Pj Ardon MB/CHB [address] [place] [address] Oncologist Medical Oncology 03/26/23 Software Build Engineer Relationship Specialty Start Date End Date Makayla Peters MD [address] [place] [phone] PCP - General Family Medicine 03/26/23 Eloina Claros, RN Registered Nurse 03/26/23 Pj Ardon MB/DB [address] [place], [place] [id number] Oncologist Medical Oncology 03/26/23 Software Build Engineer Relationship Specialty Start Date End Date Makayla Peters MD [address] [place] [phone] PCP - General Family Medicine 03/26/23 Eloina Claros, RN Registered Nurse 03/26/23 Pj Ardon MB/DB [address] [place], [place] [address] Oncologist Medical Oncology 03/26/23 Software Build Engineer Relationship Specialty Start Date End Date Makayla Peters MD [address] [place] [phone] PCP - General Family Medicine 03/26/23 Eloina Claros, RN Registered Nurse 03/26/23 Pj Ardon MB/DB [address] [facility] [place] [address] Oncologist Medical Oncology 03/26/23 Jake Valenzuela MD [address] [place], [place] [phone] Surgeon Thoracic Surgery 05/29/23 Software Build Engineer Relationship Specialty Start Date End Date Makayla Peters MD [address] [place] [phone] PCP - General Family Medicine 03/26/23 Eloina Claros, TONY Registered Nurse 03/26/23 Pj Ardon MB/DB [address] [facility] [place] [address] Oncologist Medical Oncology 03/26/23 Jake Valenzuela MD [address] [place] [address] Surgeon Thoracic Surgery 05/29/23 Team Status: Inactive Member Role Status Dates Dr. Makayla Peters MD Primary Care Provider Active Dr. Braden Hammonds MD Attending Provider Active Team Status: Active Member Role Status Dates Dr. Makayla Peters MD Primary Care Provider Active Dr. Braden Hammonds MD Attending Provider, Referring Pro vider Active Team Status: Active Member Role Status Dates Dr. Makayla Peters MD Primary Care Provider Active Faizan Fraga CAPTAIN WAITER, CAPTAIN WAITER-C Referring Provider, Other Provide r Active Dr. Braden Hammonds MD Attending Provider Active Team Status: Active Member Role Status Dates Dr. Makayla Peters MD Primary Care Provider Active Faizan Fraga CAPTAIN WAITER, CAPTAIN WAITER-C Attending Provider Active Team Status: Inactive Member Role Status Dates Dr. Makayla Peters MD Primary Care Provider Active Dr. Braden Hammonds MD Attending Provider, Referring Pro vider Active Team Status: Active Member Role Status Dates Dr. Makayla Peters MD Primary Care Provider Active Dr. Braden Hammonds MD Attending Provider, Referring Provider, Other Provider Active Faizan Fraga CAPTAIN WAITER, CAPTAIN WAITER-C Other Provider Active Team Status: Active Member Role Status Dates Dr. Makayla Peters MD Primary Care Provider Active Dr. Braden Hammonds MD Admit Provider, Att ending Provider, Referring Provider, Other Provider Active Faizan Fraga CAPTAIN WAITER, CAPTAIN WAITER-C Other Provider Active Team Status: Inactive Member Role Status Dates Dr. Makayla Peters MD Primary Care Provider Active Faizan Fraga CAPTAIN WAITER, CAPTAIN WAITER-C Attending Provider, Referring Pro vider Active Team Status: Inactive Member Role Status Dates Dr. Makayla Peters MD Primary Care Provider Active Dr. Braden Hammonds MD Admit Provider, Att ending Provider, Referring Provider Active Faizan Fraga CAPTAIN WAITER, CAPTAIN WAITER-C Other Provider Active Software Build Engineer Relationship Specialty Start Date End Date Makayla Peters MD [address] [place] [phone] PCP - General Family Medicine 03/26/23 Eloina Claros RN Registered Nurse 03/26/23 [place] [address] [place] [address] Oncologist Medical Oncology 03/26/23 Jake Valenzuela MD [address] [place] [address] [address] [place] [address] Surgeon Thoracic Surgery 05/29/23 Software Build Engineer Relationship Specialty Start Date End Date Makayla Peters MD [address] [place] [address] PCP - General Family Medicine 03/26/23 Eloina Claros, RN Registered Nurse 03/26/23 Pj Ardon MD [address] [facility] [place] [address] Oncologist Medical Oncology 03/26/23 Jake Valenzuela MD [address] [place] [address] Surgeon Thoracic Surgery 05/29/23 Software Build Engineer Relationship Specialty Start Date End Date Makayla Peters MD [address] [phone] PCP - General Family Medicine 03/26/23 Eloina Claros RN Registered Nurse 03/26/23 Pj Ardon MD [address] [place] [address] Oncologist Medical Oncology 03/26/23 Jake Valenzuela MD [address] [place] [address] Surgeon Thoracic Surgery 05/29/23 Software Build Engineer Relationship Specialty Start Date End Date Makayla Peters MD [address] [facility] [address] [place] [phone] PCP - General Family Medicine 03/26/23 Eloina Claros, TONY Registered Nurse 03/26/23 Pj Ardon MD [address] [facility] [place] [address] Oncologist Medical Oncology 03/26/23 Jake Valenzuela MD [address] [place] [address] Surgeon Thoracic Surgery 05/29/23 Software Build Engineer Relationship Specialty Start Date End Date Makayla Peters MD [address] [place] [phone] PCP - General Family Medicine 03/26/23 Eloina Claros, RN Registered Nurse 03/26/23 Pj Ardon MD [address]61 [place] [address] Oncologist Medical Oncology 03/26/23 Jake Valenzuela MD [address] [place] [address] Surgeon Thoracic Surgery 05/29/23 Software Build Engineer Relationship Specialty Start Date End Date Makayla Peters MD [address] [place] [phone] PCP - General Family Medicine 03/26/23 Eloina Claros RN Registered Nurse 03/26/23 Pj Ardon MD [address]61 [place] [address] Oncologist Medical Oncology 03/26/23 Jake Valenzuela MD [address] [place] [address] Surgeon Thoracic Surgery 05/29/23 Software Build Engineer Relationship Specialty Start Date End Date Makayla Peters MD [address] [place] [phone] PCP - General Family Medicine 03/26/23 Eloina Claros, RN Registered Nurse 03/26/23 Pj Ardon MD [address] [facility] [place] [address] Oncologist Medical Oncology 03/26/23 Jake Valenzuela MD [address] [place] [address] Surgeon Thoracic Surgery 05/29/23 Software Build Engineer Relationship Specialty Start Date End Date Makayla Peters MD [address] [place] [phone] PCP - General Family Medicine 03/26/23 Eloina Claros, RN Registered Nurse 03/26/23 Pj Ardon MD [address] [place] [address] Oncologist Medical Oncology 03/26/23 Jake Valenzuela MD [address] [place] [address] Surgeon Thoracic Surgery 05/29/23 Team Status: Active Member Role Status Dates Dr. Makayla Peters MD Primary Care Provider Active Raquel Eldridge CAPTAIN WAITER, CAPTAIN WAITER-C Referring Provider, Other Pr ovider Active Dr. Demetris Pimentel , Attending Provider Active Software Build Engineer Relationship Specialty Start Date End Date Makayla Peters MD [address] [place] [phone] PCP - General Family Medicine 03/26/23 Eloina Claros, RN Registered Nurse 03/26/23 Pj Ardon MD [address] [facility] [place] [address] Oncologist Medical Oncology 03/26/23 Jake Valenzuela MD [address] [place] [address] Surgeon Thoracic Surgery 05/29/23 Software Build Engineer Relationship Specialty Start Date End Date Makayla Peters MD [address] [place] [phone] PCP - General Family Medicine 03/26/23 Eloina Claros, RN Registered Nurse 03/26/23 Pj Ardon MD [address]61 [place] [address] Oncologist Medical Oncology 03/26/23 Jake Valenzuela MD [address] [place] [address] Surgeon Thoracic Surgery 05/29/23 Software Build Engineer Relationship Specialty Start Date End Date Makayla Peters MD [address] [place] [phone] PCP - General Family Medicine 03/26/23 Eloina Claros RN Registered Nurse 03/26/23 Pj Ardon MD [address] [facility] [place] [address] Oncologist Medical Oncology 03/26/23 Jake Valenzuela MD [address] [place] [address] Surgeon Thoracic Surgery 05/29/23 Software Build Engineer Relationship Specialty Start Date End Date Makayla Peters MD [address] [place] [phone] PCP - General Family Medicine 03/26/23 Eloina Claros RN Registered Nurse 03/26/23 Pj Ardon MD [address]61 [place] [address] Oncologist Medical Oncology 03/26/23 Jake Valenzuela MD [address] [place] [address] Surgeon Thoracic Surgery 05/29/23 Software Build Engineer Relationship Specialty Start Date End Date Makayla Peters MD [address] [place] [phone] PCP - General Family Medicine 03/26/23 Eloina Claros, TONY Registered Nurse 03/26/23 Pj Ardon MD [address]61 [place] [address] Oncologist Medical Oncology 03/26/23 Jake Valenzuela MD [address] [place] [address] Surgeon Thoracic Surgery 05/29/23 Software Build Engineer Relationship Specialty Start Date End Date Makayla Peters MD [address] [place] [phone] PCP - General Family Medicine 03/26/23 Eloina Claros, TONY Registered Nurse 03/26/23 Pj Ardon MD [address] [place] [address] Oncologist Medical Oncology 03/26/23 Jake Valenzuela MD [address] [place] [address] Surgeon Thoracic Surgery 05/29/23 Software Build Engineer Relationship Specialty Start Date End Date Makayla Peters MD [address] [place] [address] PCP - General Family Medicine 03/26/23 Pj Ardon MD [address] [place] [address] Oncologist Medical Oncology 03/26/23 Jake Valenzuela MD [address] [place] [address] Surgeon Thoracic Surgery 05/29/23 Software Build Engineer Relationship Specialty Start Date End Date Makayla Peters MD [address] [place] [phone] PCP - General Family Medicine 03/26/23 Pj Ardon MD [address] [place] [address] Oncologist Medical Oncology 03/26/23 Jake Valenzuela MD [address] [place] [address] Surgeon Thoracic Surgery 05/29/23 Software Build Engineer Relationship Specialty Start Date End Date Makayla Peters MD [address] [place] [address] PCP - General Family Medicine 03/26/23 Pj Ardon MD [address] [place] [address] Oncologist Medical Oncology 03/26/23 Jake Valenzuela MD [address] [place] [address] Surgeon Thoracic Surgery 05/29/23 Software Build Engineer Relationship Specialty Start Date End Date Makayla Peters MD [address] [place] [address] PCP - General Family Medicine 03/26/23 Pj Ardon MD [address] [place] [address] Oncologist Medical Oncology 03/26/23 Jake Valenzuela MD [address] [place] [address] Surgeon Thoracic Surgery 05/29/23 Software Build Engineer Relationship Specialty Start Date End Date Makayla Peters MD [address] [place] [phone] PCP - General Family Medicine 03/26/23 Pj Ardon MD [address] [place] [address] Oncologist Medical Oncology 03/26/23 Jake Valenzuela MD [address] [place] [address] Surgeon Thoracic Surgery 05/29/23 Software Build Engineer Relationship Specialty Start Date End Date Makayla Peters MD [address] [place] [phone] PCP - General Family Medicine 03/26/23 Pj Ardon MD [address] [place] [address] Oncologist Medical Oncology 03/26/23 Jake Valenzuela MD [address] [place] [address] Surgeon Thoracic Surgery 05/29/23 Software Build Engineer Relationship Specialty Start Date End Date Makayla Peters MD [address] [place] [phone] PCP - General Family Medicine 03/26/23 Pj Ardon MD [address] [place] [address] Oncologist Medical Oncology 03/26/23 Jake Valenzuela MD [address] [place] [address] Surgeon Thoracic Surgery 05/29/23 Software Build Engineer Relationship Specialty Start Date End Date Makayla Peters MD [address] [place] [phone] PCP - General Family Medicine 03/26/23 Pj Ardon MD [address] [place] [address] Oncologist Medical Oncology 03/26/23 Jake Valenzuela MD [address] [place] [address] Surgeon Thoracic Surgery 05/29/23 Software Build Engineer Relationship Specialty Start Date End Date Makayla Peters MD [address] [place] [phone] PCP - General Family Medicine 03/26/23 Pj Ardon MD [address] [place] [address] Oncologist Medical Oncology 03/26/23 Jake Valenzuela MD [address] [place] [address] Surgeon Thoracic Surgery 05/29/23 Software Build Engineer Relationship Specialty Start Date End Date Makayla Peters MD [address] [place] [phone] PCP - General Family Medicine 03/26/23 Pj Ardon MD [address] [place] [address] Oncologist Medical Oncology 03/26/23 Jake Valenzuela MD [address] [place] [address] Surgeon Thoracic Surgery 05/29/23 Software Build Engineer Relationship Specialty Start Date End Date Makayla Peters MD [address] [place] [phone] PCP - General Family Medicine 03/26/23 Pj Ardon MD [address] [place] [address] Oncologist Medical Oncology 03/26/23 Jake Valenzuela MD [address] [place] [address] Surgeon Thoracic Surgery 05/29/23 Software Build Engineer Relationship Specialty Start Date End Date Makayla Peters MD [address] [place] [phone] PCP - General Family Medicine 03/26/23 Pj Ardon MD [address] [place] [address] Oncologist Medical Oncology 03/26/23 Jake Valenzuela MD [address] [place] [address] Surgeon Thoracic Surgery 05/29/23 Software Build Engineer Relationship Specialty Start Date End Date Makayla Peters MD [address] [place] [phone] PCP - General Family Medicine 03/26/23 Pj Ardon MD [address] [facility] [place] [address] Oncologist Medical Oncology 03/26/23 Jake Valenzuela MD [address] [place] [address] Surgeon Thoracic Surgery 05/29/23 Software Build Engineer Relationship Specialty Start Date End Date Makayla Peters MD [address] [place] [phone] PCP - General Family Medicine 03/26/23 Pj Ardon MD [address] [place] [address] Oncologist Medical Oncology 03/26/23 Jake Valenzuela MD [address] [place] [address] Surgeon Thoracic Surgery 05/29/23 Software Build Engineer Relationship Specialty Start Date End Date Makayla Peters MD [address] [place] [phone] PCP - General Family Medicine 03/26/23 Pj Ardon MD [address] [place] [address] Oncologist Medical Oncology 03/26/23 Jake Valenzuela MD [address] [place] [address] Surgeon Thoracic Surgery 05/29/23 Software Build Engineer Relationship Specialty Start Date End Date Makayla Peters MD [address] [place] [phone] PCP - General Family Medicine 03/26/23 Pj Ardon MD [address] [place] [address] Oncologist Medical Oncology 03/26/23 Jake Valenzuela MD [address] [place] [address] Surgeon Thoracic Surgery 05/29/23 Software Build Engineer Relationship Specialty Start Date End Date Makayla Peters MD [address] [place] [phone] PCP - General Family Medicine 03/26/23 Pj Ardon MD [address] [address] Oncologist Medical Oncology 03/26/23 Jake Valenzuela MD [address] [place] [address] Surgeon Thoracic Surgery 05/29/23 Software Build Engineer Relationship Specialty Start Date End Date Makayla Peters MD [address] [place] [phone] PCP - General Family Medicine 03/26/23 Pj Ardon MD [address] [facility] [place] [address] Oncologist Medical Oncology 03/26/23 Jake Valenzuela MD [address] [place] [address] Surgeon Thoracic Surgery 05/29/23 Software Build Engineer Relationship Specialty Start Date End Date Makayla Peters MD [address] [place] [phone] PCP - General Family Medicine 03/26/23 Pj Ardon MD [address] [facility] [place] [address] Oncologist Medical Oncology 03/26/23 Jake Valenzuela MD [address] [place] [address] Surgeon Thoracic Surgery 05/29/23 Software Build Engineer Relationship Specialty Start Date End Date Makayla Peters MD [address] [place] [phone] PCP - General Family Medicine 03/26/23 Pj Ardon MD [address] [facility] [place] [address] Oncologist Medical Oncology 03/26/23 Jake Valenzuela MD [address] [place] [address] Surgeon Thoracic Surgery 05/29/23 Team Status: Inactive Member Role Status Dates Dr. Makayla Peters MD Primary Care Provider Active Start: July 23, 2024 End: July 24, 2024 Dr. Asher Leyva DO Attending Provider Active Start: July 23, 2024 End: July 24, 2024 Dr. Asher Leyva DO Emergency Provider Active Start: July 23, 2024 End: July 24, 2024 Team Status: Inactive Member Role Status Dates Dr. Makayla Peters MD Primary Care Provider Active Start: September 06, 2024 End: September 06, 2024 Dr. Braden Hammonds MD Attending Provider Active S tart: September 06, 2024 End: September 06, 2024 Dr. Braden Hammonds MD Referring Provider Active S tart: September 06, 2024 End: September 06, 2024 Team Status: Inactive Member Role Status Dates Dr. Makayla Peters MD Primary Care Provider Active Start: September 21, 2024 End: September 21, 2024 Faizan Fraga CAPTAIN WAITER, CAPTAIN WAITER-C Attending Provider Active S tart: September 21, 2024 End: September 21, 2024 Faizan Fraga CAPTAIN WAITER, CAPTAIN WAITER-C Referring Provider Active S tart: September 21, 2024 End: September 21, 2024 Software Build Engineer Relationship Specialty Start Date End Date Makayla Peters MD [address] [facility] [address] [place] [phone] PCP - General Family Medicine 03/26/23 Pj Ardon MD [address] [place] [address] Oncologist Medical Oncology 03/26/23 Jake Valenzuela MD [address] 2[address] [place] [address] Surgeon Thoracic Surgery 05/29/23 Software Build Engineer Relationship Specialty Start Date End Date Makayla Peters MD [address] [facility] [address] [place] [phone] PCP - General Family Medicine 03/26/23 Pj Ardon MD [address] [place], [place] [address] Oncologist Medical Oncology 03/26/23 Jake Valenzuela MD [address] [place] [address] Surgeon Thoracic Surgery 05/29/23 Software Build Engineer Relationship Specialty Start Date End Date Makayla Peters MD [address] [phone] PCP - General Family Medicine 03/26/23 Pj Ardon MD [address] [place] [address] Oncologist Medical Oncology 03/26/23 Jake Valenzuela MD [address] [place] [address] Surgeon Thoracic Surgery 05/29/23 Team Status: Active Member Role Status Dates Dr. Makayla Peters MD Primary Care Provider Active Team Status: Inactive Member Role Status Dates Dr. Makayla Peters MD Primary Care Provider Active Start: November 30, 2024 End: November 30, 2024 Dr. Makayla Peters MD Referring Provider Active Start: November 30, 2024 End: November 30, 2024 Nadege Lopez Attending Provider Active Start: phil 2024 End: November 30, 2024 Team Status: Inactive Member Role Status Dates Dr. Makayla Peters MD Primary Care Provider Active Start: November 30, 2024 End: November 30, 2024 Dr. Makayla Peters MD Referring Provider Active Start: November 30, 2024 End: November 30, 2024 Dr. Radha Sanchez MD Attending Provider Active Start: November 30, 2024 End: November 30, 2024 Team Status: Inactive Member Role Status Dates Dr. Makayla Peters MD Primary Care Provider Active Start: December 08, 2024 End: December 08, 2024 Dr. Makayla Peters MD Referring Provider Active Start: December 08, 2024 End: December 08, 2024 Raquel Eldridge CAPTAIN WAITER, CAPTAIN WAITER-C Attending Provider Active Start: December 08, 2024 End: December 08, 2024 Team Status: Inactive Member Role Status Dates Dr. Makayla Peters MD Primary Care Provider Active Start: November 30, 2024 End: November 30, 2024 Dr. Braden Hammonds MD Attending Provider Active S tart: November 30, 2024 End: November 30, 2024 Team Status: Inactive Member Role Status Dates Dr. Makayla Peters MD Primary Care Provider Active Start: December 06, 2024 End: December 06, 2024 Dr. Braden Hammonds MD Attending Provider Active S tart: December 06, 2024 End: December 06, 2024 Software Build Engineer Relationship Specialty Start Date End Date Makayla Peters MD [address] [facility] [place] [address] PCP - General Family Medicine 03/26/23 Pj Ardon MD [address] [facility] [place] [address] Oncologist Medical Oncology 03/26/23 Jake Valenzuela MD [address] [place] [address] Surgeon Thoracic Surgery 05/29/23 Team Status: Inactive Member Role Status Dates Dr. Makayla Peters MD Primary Care Provider Active Start: November 30, 2024 End: November 30, 2024 Dr. Braden Hammonds MD Attending Provider Active S tart: November 30, 2024 End: November 30, 2024 Dr. Braden Hammonds MD Referring Provider Active S tart: November 30, 2024 End: November 30, 2024 Team Status: Inactive Member Role Status Dates Dr. Makayla Peters MD Primary Care Provider Active Start: December 06, 2024 End: December 06, 2024 Dr. Braden Hammonds MD Attending Provider Active S tart: December 06, 2024 End: December 06, 2024 Dr. Braden Hammonds MD Referring Provider Active S tart: December 06, 2024 End: December 06, 2024 Team Status: Inactive Member Role Status Dates Dr. Makayla Peters MD Primary Care Provider Active Start: January 05, 2025 End: January 05, 2025 Dr. Saúl Macias , Emergency Provider Active Start: January 05, 2025 End: January 05, 2025 Team Status: Active Member Role/Relationship Status Dates Dr. Makayla Peters MD Primary Care Provider Active Team Status: Inactive Member Role/Relationship Status Dates Dr. Makayla Peters MD Primary Care Provider Active Start: November 30, 2024 End: November 30, 2024 Dr. Braden Hammonds MD Attending Provider Active S tart: November 30, 2024 End: November 30, 2024 Team Status: Inactive Member Role/Relationship Status Dates Dr. Makayla Peters MD Primary Care Provider Active Start: November 30, 2024 End: November 30, 2024 Dr. Braden Hammonds MD Attending Provider Active S tart: November 30, 2024 End: November 30, 2024 Dr. Braden Hammonds MD Referring Provider Active S tart: November 30, 2024 End: November 30, 2024 Team Status: Inactive Member Role/Relationship Status Dates Dr. Makayla Peters MD Primary Care Provider Active Start: November 30, 2024 End: November 30, 2024 Dr. Makayla Peters MD Referring Provider Active Start: November 30, 2024 End: November 30, 2024 Dr. Radha Sanchez MD Attending Provider Active Start: November 30, 2024 End: November 30, 2024 Team Status: Inactive Member Role/Relationship Status Dates Dr. Makayla Peters MD Primary Care Provider Active Start: December 06, 2024 End: December 06, 2024 Dr. Braden Hammonds MD Attending Provider Active S tart: December 06, 2024 End: December 06, 2024 Dr. Braden Hammonds MD Referring Provider Active S tart: December 06, 2024 End: December 06, 2024 Team Status: Inactive Member Role/Relationship Status Dates Dr. Makayla Peters MD Primary Care Provider Active Start: December 08, 2024 End: December 08, 2024 Dr. Makayla Peters MD Referring Provider Active Start: December 08, 2024 End: December 08, 2024 Rauqel Eldridge CAPTAIN WAITER, CAPTAIN WAITER-C Attending Provider Active Start: December 08, 2024 End: December 08, 2024 Team Status: Inactive Member Role/Relationship Status Dates Dr. Makayla Peters MD Primary Care Provider Active Start: January 05, 2025 End: January 05, 2025 Dr. Saúl Macias DO Attending Provider Active Start: January 05, 2025 End: January 05, 2025 Dr. Saúl Macias DO Emergency Provider Active Start: January 05, 2025 End: January 05, 2025 Team Status: Inactive Member Role/Relationship Status Dates Dr. Makayla Peters MD Primary Care Provider Active Start: February 09, 2025 End: February 09, 2025 Dr. Saúl Morales MD Attending Provider Active S tart: February 09, 2025 End: February 09, 2025 Dr. Saúl Morales MD Referring Provider Active S tart: February 09, 2025 End: February 09, 2025 Team Status: Active Member Role/Relationship Status Dates Dr. Makayla Peters MD Primary Care Provider Active Start: February 09, 2025 Dr. Saúl Morales MD Attending Provider Active S tart: February 09, 2025 Software Build Engineer Relationship Specialty Start Date End Date Makayla Peters MD [address] [facility] [place] [address] PCP - General Family Medicine 03/26/23 Pj Ardon MD [address] [place] [address] Oncologist Medical Oncology 03/26/23 Jake Valenzuela MD [address] [place] [address] Surgeon Thoracic Surgery 05/29/23 Software Build Engineer Relationship Specialty Start Date End Date Makayla Peters MD [address] [facility] [place] [address] PCP - General Family Medicine 03/26/23 Pj Ardon MD [address] [facility] [place] [address] Oncologist Medical Oncology 03/26/23 Jake Valenzuela MD [address] [place] [address] Surgeon Thoracic Surgery 05/29/23 Team Status: Inactive Member Role/Relationship Status Dates Dr. Makayla Peters MD Primary Care Provider Active Start: February 25, 2025 End: February 25, 2025 Dr. Makayla Peters MD Referring Provider Active Start: February 25, 2025 End: February 25, 2025 INDIA Gomez Attending Provider Active Star t: February 25, 2025 End: February 25, 2025 Team Status: Active Member Role/Relationship Status Dates Dr. Makayla Peters MD Primary Care Provider Active Start: February 09, 2025 Dr. Saúl Morales MD Attending Provider Active S tart: February 09, 2025 Dr. Saúl Morales MD Referring Provider Active S tart: February 09, 2025 Team Status: Inactive Member Role/Relationship Status Dates Dr. Makayla Peters MD Primary Care Provider Active Start: March 06, 2025 End: March 06, 2025 Dr. Braden Hammonds MD Attending Provider Active S tart: March 06, 2025 End: March 06, 2025 Reason for Visit (unrecogniz ed section and content) Reason Comments Chemotherapy Specialty Diagnoses / Procedures Referred By Contac t Referred To Contact Diagnoses Squamous cell carcinoma of right lung Kathryn Tobias MD [address] [place] [address] Phone: tel: fax: Referral ID Status Reason Start Date Expiration Date V isits Requested Visits Authorized [id number] Authorized 08/20/2023 1 1 Reason Comments Complete Heart Block Specialty Diagnoses / Procedures [facility] Referred To Contact Diagnoses Shortness of breath AV block Heart block Elevated blood pressure reading Prolonged Q-T interval on ECG Chest pain, unspecified type Community acquired pneumonia, unspecified laterality Third degree heart block Referral ID Status Reason Start Date Expiration Date Visits Re quested Visits Authorized [id number] 1 1 Reason Onset Date Comments Wound Check 01/24/2023 S/P DC PPM inser tion on 01/13/23 Specialty Diagnoses / Procedures [facility] Referred To Contact Diagnoses Mediastinal lymphadenopathy Mediastinal lymphadenopathy [R59.0] Procedures SD BRNCHSC INCL FLUOR GDNCE DX W/CELL WASHG SPX SD BRNSCHSC TNDSC EBUS DX/TX INTERVENTION PERPH LES BRONCHOSCOPY FLEXIBLE DIAGNOSTIC BRONCHOSCOPY FLEXIBLE W/ EBUS DURING BRONCH DIAGNOSTICS/INTEVENTION FOR PERIPHERAL LESION ADD-ON PX Jake Valenzuela MD [address] [place] [address] [facility] [address] [place] [address] Referral ID Status Reason Start Date Expiration Date Visits Re quested Visits Authorized [id number] 1 1 Referral ID Status Reason Start Date Expiration Date Visits Re quested Visits Authorized [id number] 1 1 Reason Comments Labs Only Specialty Diagnoses / Procedures [facility] Referred To Contact Diagnoses NSCLC of right lung Procedures PFT STANDARD Meron Mckeon, PAC [address] [place] [address] Referral ID Status Reason Start Date Expiration Date V isits Requested Visits Authorized [id number] New Request 04/22/2023 05/16/2024 1 1 Reason Comments Follow-up Pt reports coughing spells, SOB with moderate exertionPt reports low back pain that's newerPt denies problems swallowing Reason Comments Pacemaker/ICD event Specialty Diagnoses / Procedures [facility] Referred To Contact Diagnoses NSCLC of right lung NSCLC of right lung [C34.91] Procedures SD THORACOSCOPY W/LOBECTOMY SINGLE LOBE SD BRNCHSC INCL FLUOR GDNCE DX W/CELL WASHG SPX LOBECTOMY LUNG ROBOTIC BRONCHOSCOPY FLEXIBLE DIAGNOSTIC Jake Valenzuela MD [address] [place] [address] [facility] [address] [place] [address] [place] [address] Referral ID Status Reason Start Date Expiration Date Visits Re quested Visits Authorized [id number] 1 1 Reason Comments Infusion Visit Reason Comments Lung Cancer Cough Productive with mucu s since May 2023. Other Experiencing anxiety and difficulty sleeping. Patient to refill Mirtazapine. Reason Comments Lung Cancer Other Isolated incidences of light headedness. Specialty Diagnoses / Procedures Referred By Haleigh rubio Referred To Contact Diagnoses Squamous cell carcinoma of right lung Procedures CT CHEST WITH CONTRAST CHG DIAGNOSTIC COMPUTED TOMOGRAPHY THORAX W/CONTRAST Sarah Valentine APRN-CNP [address] [place] [address] Referral ID Status Reason Start Date Expiration Date Visits Re quested Visits Authorized [id number] Closed 10/22/2023 11/15/2024 1 1 Reason Comments Follow-up Issues w/ sleep, cur rently taking amitriptyline 1 tablet, can he take 2? Noting more prevalent SOB Reason Comments Chemotherapy Patient here for Pem brolizumab.Patient has questions related to medication. Specialty Diagnoses / Procedures Referred By Haleigh rubio Referred To Contact Diagnoses Non-small cell cancer of right lung Procedures CT CHEST WITHOUT CONTRAST CHG DIAGNOSTIC COMPUTED TOMOGRAPHY THORAX W/O CNTRST Jake Valenzuela MD [address] [place] [address] Referral ID Status Reason Start Date Expiration Date Visits Re quested Visits Authorized [id number] Closed 06/17/2023 07/11/2024 1 1 Reason Comments Immunotherapy Reason Comments Lung Cancer Had sore in his mout h that is gone now but he is drooling and that is new for him, feeling achy at times in legs and back, has dry cough, needs refill of remeron Reason Comments Lung Cancer No complaints at thi s time Reason Comments Follow-up Feels well overall, recently got stung by three yellowjackets but the swelling is localized. Other Shingles, open not o ozing, covered with shirt. On his belt line Reason Comments Follow-up Shingles have cleare d up. Feeling well overall. Medication Refill remeron Specialty Diagnoses / Procedures Referred By Haleigh t Referred To Contact Diagnoses Malignant neoplasm of upper lobe of right lung Procedures CT CHEST WITH CONTRAST CHG DIAGNOSTIC COMPUTED TOMOGRAPHY THORAX W/CONTRAST Isaac Hodge, WEATHER TEACHER-COMMUNITY NURSE [address] [address] Referral ID Status Reason Start Date Expiration Date Visits Re quested Visits Authorized [id number] Closed 02/25/2024 03/21/2025 1 1 Reason Comments Follow-up Pt reports dry skin on back, no rash, but has been putting lotion on Reason Comments Follow-up Cough and dry skin Reason Comments Infusion Visit pembrolizumab Referral ID Status Reason Start Date Expiration Date Visits Re quested Visits Authorized [id number] Closed 04/07/2024 05/02/2025 1 1 Reason Comments Follow-up Reason Comments Immunotherapy Here for D1 C11 of P embrolizumab Reason Comments Follow-up Referral ID Status Reason Start Date Expiration Date Visits Re quested Visits Authorized [id number] Closed 07/29/2024 07/11/2025 1 1 Reason Comments Lung Cancer Follow-up Medication Refill remeron Reason Comments Iv Insertion Reason Comments Follow-up Pt stopped taking hi s Arnuity Ellipta inhaler- he states he did not like the way it made him feel when taking it- he states it was making his breathing worsePt reports new rash on back- wondering if from Keytruda Reason Comments Follow-up LUCIO,baseline. Reason Comments Follow-up Would like a PT refe rral for closer to home Scheduled Active and Recently Administ ered Medications (unrecognized section and content) Medication Order 01/12/2023 01/13/2023 01/14/2023 amLODIPine (NORVASC) tablet 10 mg 10 mg, Oral, Daily, First dose on Marleni 01/09/23 at 1925 0838 (Given - Provider: Herlinda Osuna RN) 0942 (Given - Provider: Herlinda Osuna RN) 0838 (Given - Provider: Komal Montoya, RN) aspirin EC tablet 81 mg 81 mg, Oral, Daily, First dose on Fri01/09/23 at 2100, DO NOT CRUSH OR CHEW. 0839 (Given - Provider: Herlinda Osuna RN) 0942 (Given - Provider: Herlinda Osuna RN) 0838 (Given - Provider: Komal Montoya, RN) atorvastatin (LIPITOR) tablet 40 mg 40 mg, Oral, Nightly, First dose on Fri01/09/23 at 2100 2056 (Given - Provider: Monique Prince RN) 2237 (Given - Provider: Asher Arias LPN - Comment: Not given at scheduled time, waiting on pharmacy to send.) clindamycin (CLEOCIN) 600 mg/250 mL NS irrigation (COMPLETED) 600 mg, Irrigation, Once, On Fri01/13/23 at 1400, For 1 dose, Sign and Release, To be used in the EP procedural area. 1400 (Due)1523 (Given by Other - Provider: Anton Napoles, TECHNOLOGIST) clindamycin (CLEOCIN) IVPB 900 mg (premix) 900 mg, Intravenous, at 100 mL/hr, 60 min pre-procedure, Starting on Fri01/13/23 at 1400, Sign and Release, To be given in the EP procedural area. Initiate within 60 minutes prior to procedure., Indication: Other: (specify), Indication: Pre procedure electrophysiology 1400 (Due) clopidogreL (PLAVIX) tablet 75 mg 75 mg, Oral, Daily, First dose on Fri01/10/23 at 0900 0838 (Given - Provider: Herlinda Osuna RN) 0943 (Given - Provider: Herlinda Osuna RN) 0838 (Given - Provider: Komal Montoya, RN) enoxaparin (LOVENOX) syringe 40 mg (CANCELED) 40 mg, Subcutaneous, Daily, First dose on Fri01/10/23 at 1300, Administer in abdomen unless otherwise directed by prescriber. Notify physician if patient refuses., Indication: VTE Prophylaxis 0838 (Given - Provider: Herlinda Osuna RN) losartan (COZAAR) tablet 50 mg 50 mg, Oral, Daily, First dose on Fri01/10/23 at 1200, Hold for SBP<110 1136 (Given - Provider: Herlinda Martini, RN) 1300 (Given - Provider: Herlinda Osuna RN) 1206 (Given - Provider: Komal Montoya, RN) omega-3 acid ethyl esters (LOVAZA) capsule 2 g 2 g, Oral, Daily, First dose on Fri01/10/23 at 0900, DO NOT CRUSH OR CHEW. 0838 (Given - Provider: Herlinda Osuna RN) 0942 (Given - Provider: Herlinda Osuna RN) 0838 (Given - Provider: Komal Montoya, RN) pantoprazole (PROTONIX) EC tablet 40 mg 40 mg, Oral, Daily, First dose on Fri01/10/23 at 0900, DO NOT CRUSH OR CHEW. 0838 (Given - Provider: Herlinda Osuna RN) 0942 (Given - Provider: Herlinda Osuna RN) 0838 (Given - Provider: Komal Montoya, RN) sodium chloride (PF) (NS) flush 5 mL(Linked Group 1) 5 mL, Intravenous, Every 8 hours scheduled, First dose on Fri01/09/23 at 2200, Saline lock 0600 (Not Given - Provider: Annabel Ang RN - Reason: Other)1400 (Due)2100 (Given - Provider: Monique Prince RN) 0600 (Given - Provider: Monique Prince RN)1400 (Due)2112 (Given - Provider: Asher Arias LPN) 0543 (Given - Provider: Asher Arias LPN) vitamin E capsule 200 Units 200 Units, Oral, Daily, First dose on Fri01/10/23 at 0900, DO NOT CRUSH OR CHEW. 0838 (Given - Provider: Herlinda Osuna RN) 0942 (Given - Provider: Herlinda Osuna RN) 0838 (Given - Provider: Komal Montoya, RN) Continuous Medication Order 01/12/2023 01/13/2023 01/14/2023 sodium chloride 0.9% (NS) () 50 mL/hr, Intravenous, Continuous, Starting on Fri01/13/23 at 0845, For 10 hours 0845 (New Bag - Provider: Herlinda Osuna RN)2300 (Stopped - Provider: Komal Montoya, RN) PRN Medication Order 01/12/2023 01/13/202301/1401/14/2023 acetaminophen (TYLENOL) tablet 650 mg 650 mg, [...] Roca RN)1442 (Given - Provider: Sharifa Roca RN)1515 (Given - Provider: Sharifa Roca, TONY) senna [...] rate as the secondary infusion, Starting on Mraleni 01/09/23 at 1742, Run as Primary IV. [...] Singh RN) 0342 (Given - Provider: Raquel Singh, TONY)0846 (Given - Provider: Abby Banks RN)1504 (Given - Provider: Abby Banks RN)2041 (Given - Provider: Izzy Mccloud RN) 0508 (Given - Provider: Izzy Mccloud RN)0807 (Given - Provider: Abby Banks, TONY) amLODIPine (NORVASC) tablet 10 mg 10 mg, Oral, DAILY, First dose on Fri05/29/23 at 1045, Until Discontinued 1202 (Given - Provider: Abby Banks RN) 0808 (Given - Provider: Abby Banks RN) aspirin chewable tablet 81 mg 81 mg, [...] 0645 0639 ($$New Bag$$ - Provider: Raquel Singh, TONY) 0809 (Stopped - Provider: Abby Banks RN) Mirtazapine (REMERON) tablet 15 mg 15 mg, Oral, DAILY, First dose on Fri05/28/23 at 2100, Until Discontinued 2033 (Given - Provider: Raquel Singh, RN) 2042 (Given - Provider: Izzy Mccloud, TONY) Pantoprazole (PROTONIX) tablet DR 40 mg 40 mg, Oral, DAILY, First dose on Fri05/29/23 at 0900, Until Discontinued, Swallow whole; do not crush or chew., Indications: Continuation of Home Therapy, Post-op/Post-Proc 0841 (Given - Provider: Abby Banks, TONY) 0807 (Given - Provider: Abby Banks RN) Polyethylene glycol (MIRALAX) packet 17 g 17 g, Oral, DAILY, First dose on Fri05/30/23 at 0900, Until Discontinued 0808 (Given - Provider: Abby Banks, TONY) Senna (SENOKOT) tablet 17.2 mg 17.2 mg, Oral, EVERY 12 HOURS, First dose on Fri05/28/23 at 2100, Until Discontinued, Post-op/Post-Proc 2034 (Given - Provider: Raquel Singh, TONY) 0841 (Given - Provider: Abby Banks, RN)204 (Given - Provider: Izzy Mccloud, RN) 0807 (Given - Provider: Abby Banks, RN) Continuous Medication Order 05/28/2023 05/29/2023 05/30/2023 dextrose 5% and sodium chloride 0.45% 1,000 ml with potassium chloride 20 mEq premix IV solution (CANCELED) Intravenous, at 75 mL/hr, CONTINUOUS, Starting on Fri05/28/23 at 1145, Until Marleni 05/29/23 at 0500, May convert to saline well [...] 20 mL injection (COMPLETED)(Linked Group 1) Infiltration, METROLOGY ENGINEER TO PROCEDURE, 1 dose, Starting on Fri05/28/23 at 0828, Until Fri05/28/23 at 1050, For OR use only under direction of the attending physician., Intra-op/Intra-Proc 1050 (Given - Provider: Sania Alas RN) BUPivacaine-EPINEPHrine (MARCAINE;SENSORCAINE W/ EPI) 0.25% -[id number] injection (CANCELED) NEEDED, Starting on Fri05/28/23 at 0817, Until Fri05/28/23 at 1141, Intra-op/Intra-Proc 0817 (Given - Provider: Jake Valenzuela MD) Clindamycin (CLEOCIN) 900 mg in dextrose 50 ml premix IVPB (COMPLETED) 900 mg, Intravenous, Administer over 30 Minutes, METROLOGY ENGINEER TO PROCEDURE, 1 dose, Starting on Fri05/28/23 [...] volume) intrathecal injection (COMPLETED) 200 mcg, Intrathecal, METROLOGY ENGINEER TO PROCEDURE, 1 dose, Starting on Fri05/28/23 [...] at 1141, Intra-op/Intra-Proc 1100 (Given - Provider: Jake Valenzuela MD) traMADol (ULTRAM) tablet 50 mg 50 [...] 20 mL injection (COMPLETED)Jump to med Infiltration, METROLOGY ENGINEER TO PROCEDURE, 1 dose, Starting on Fri05/28/23 at 0828, Until Fri05/28/23 at 1050
For OR use only under direction of the attending physician.
Intra-op/Intra-Proc And BUPivacaine LIPOSOME (EXPAREL) 1.3 % 133 mg, BUPivacaine (PF) (MARCAINE) 0.25 % 10 mL in Total Volume 20 mL injection (COMPLETED)Jump to med Infiltration, METROLOGY ENGINEER TO PROCEDURE, 1 dose, Starting on Fri05/28/23 [...]
If patient unable to tolerate PO.
Post-op/Post-Proc FOR RECORDS PERTAINING TO PATIENTS WHO ARE [...] BE BASED ON THE PRIMARY CLINICAL RECORDS. [employer] [facility]. provides no warranty or guarantee of the accuracy or completeness of information in this document.
--- NOTE | 2025-04-18 07:19 | ECHOD_ITS ---
Reason For Study Reason For Study: CORONARY ARTERY DISEASE Procedure This was a 2D Doppler, Color Flow transthoracic echocardiogram. The study was technically difficult. Exam performed in department. Left Ventricle Normal LV size. Moderate concentric left ventricular hypertrophy. The left ventricular ejection fraction is 65 %. Stage 1 diastolic dysfunction. No regional wall motion abnormalities noted. Right Ventricle Normal RV size. Normal systolic function. Atria Normal left atrium. Normal right atrium. Mitral Valve Normal mitral valve. Tricuspid Valve Normal tricuspid valve. Aortic Valve Trisinus/trileaflet aortic valve. Pulmonic Valve Normal pulmonic valve. Great Vessels Normal aortic root. The pulmonary artery is normal size. Inferior vena cava collapse with respiration. Pericardium/Pleural No pericardial effusion. MMode/2D Measurements & Calculations LVIDd: 4.0 cm IVSd: 1.8 cm LVOT diam: 2.0 cm LVIDs: 2.8 cm LVPWd: 1.4 cm LVOT area: 3.2 cm2 RVDd: 3.8 cm FS: 31.2 % asc Aorta Diam: 3.3 cm LAV(MOD-bp): 27.6 ml LVAd ap4: 22.5 cm2 LAV(MOD-bp) Indexed: 13.4 ml/m2 LVLd ap4: 7.5 cm LAV(MOD-sp2): 34.7 ml EDV(MOD-sp4): 55.6 ml LAV(MOD-sp4): 22.8 ml EDV(sp4-el): 57.5 ml LVAs ap4: 12.6 cm2 LVLs ap4: 6.4 cm ESV(MOD-sp4): 20.8 ml ESV(sp4-el): 21.0 ml EF(MOD-sp4): 62.6 % EF(sp4-el): 63.5 % LVAd ap2: 26.5 cm2 SV(MOD-sp4): 34.8 ml SV(MOD-sp2): 48.1 ml LVLd ap2: 8.0 cm SI(MOD-sp4): 16.9 ml/m2 SI(MOD-sp2): 23.4 ml/m2 EDV(MOD-sp2): 72.9 ml EDV(sp2-el): 74.7 ml LVAs ap2: 13.9 cm2 LVLs ap2: 6.8 cm ESV(MOD-sp2): 24.8 ml ESV(sp2-el): 24.2 ml EF(MOD-sp2): 66.0 % SV(sp4-el): 36.5 ml Ao sinus diam: 3.[address] Junction: 2.8 cm LA dimension(2D): 3.7 cm LA A4 area: 11.6 cm2 RA A4 area: 10.1 cm2 TAPSE: 1.6 cm Time Measurements MV dec time: 0.26 sec Doppler Measurements & Calculations MV E max demarco: 69.2 cm/sec Lat Peak E' Demarco: 7.8 cm/sec Med Peak E' Demarco: 6.2 cm/sec MV A max demarco: 100.4 cm/sec E/E' lat: 8.9 E/E' med: 11.2 MV E/A: 0.69 MV dec slope: 266.4 cm/sec2 Ao V2 max: 140.2 cm/sec LV V1 max: 100.1 cm/sec Ao max P.9 mmHg LV V1 max P.0 mmHg Ao V2 mean: 92.9 cm/sec LV V1 mean P.4 mmHg Ao mean P.0 mmHg LV V1 mean: 72.4 cm/sec Ao V2 VTI: 32.3 cm LV V1 VTI: 25.8 cm AV (velocity ratio): 0.80 MARCO ANTONIO(I,D): 2.5 cm2 MARCO ANTONIO(V,D): 2.3 cm2 SV(LVOT): 81.8 ml PA V2 max: 93.0 cm/sec ECHO/Echo Complete Interpretation Summary Normal LV size. Moderate concentric left ventricular hypertrophy. The left ventricular ejection fraction is 65 %. Stage 1 diastolic dysfunction. Ordering Physician: Faizan Fraga Referring Physician: Faizan Fraga Performed By: Monse John RDCS
[2025-04-18 07:32] LABS: Hematocrit 46.3 % (40-54); Hemoglobin 15.9 g/dL (13.0-16.5); Immature Granulocytes Count 0.030 X10^3/uL (0.0-0.0); Mean Corp Hgb Conc 34.3 g/dL (32-36); Mean Corpuscular Volume 93.2 fL (80-94); Mean Platelet Vol. 9.8 fl (6.2-12.0); NRBC Flagged by Analyzer 0 % (0-5); Platelet Count 207 K/mm3 (150-450); RBC Distribution Width CV 13.2 % (11.6-14.6); RBC Distribution Width SD 45.1 fl (35.1-43.9); Red Blood Count 4.97 M/mm3 (4.6-6.2); White Blood Count 7.8 K/mm3 (4.4-11.0)
[2025-04-18 08:09] LABS: Anion Gap 11 (5-15); BUN 11 mg/dL (4-19); BUN/Creat Ratio 9.0 RATIO (10-20); Calcium,Total 9.2 mg/dL (7.6-11.0); Carbon Dioxide 23.9 mmol/L (21.0-32.0); Chloride 105 mmol/L (98-108); Glucose 108 mg/dL (70-99); Magnesium 2.4 mg/dL (1.5-2.2); Potassium 4.3 mmol/L (3.3-5.1)
--- NOTE | 2025-04-18 17:28 | STRESSREP_ITS ---
Stress Test Report Pharmacologic myocardial perfusion stress test. 80-year-old man with a history of coronary disease. Resting EKG demonstrates normal sinus rhythm with a left bundle branch block with a rate of 63 bpm. Resting blood pressure is 165/77 mmHg. 0.4 mg of regadenoson was infused per usual protocol followed by rapid intravenous saline flush injection. Continuous EKG monitoring was performed. The maximum heart rate was 81 bpm which was 57% of max impacted heart rate the maximum workload was 1 metabolic equivalent. At rest there were no ST or T wave changes noted to suggest ischemia and at peak infusion nonspecific ST changes were noted which did not meet the criteria for ischemia. No clinical angina is noted. The final blood pressure was 153/73 mmHg. Myocardial perfusion protocol. 11 mCi of technetium 99m sestamibi was injected at rest. 0.4 mg of regadenoson was infused per usual protocol. At peak infusion 33.5 mCi of technetium 99m s estamibi was injected stress images were obtained stress and rest images were reconstructed and compared in the short axis vertical long and horizontal long axis. Gated images were also obtained. Perfusion SPECT analysis: Review of the stress images demonstrate normal uptake of tracer noted in all areas of the myocardium. The resting images similar demonstrated normal uptake of tracer noted in all areas of the myocardium. No areas of reversibility are noted to suggest ischemia and no previous infarct is noted. Gated SPECT analysis: The gated ejection fraction is 65%. Conclusion: Normal pharmacologic myocardial perfusion stress test. Preserved ejection fraction.
== END | disposition home or self-care (01) ==
PROVIDERS: PCP Student in an Organized Health Care Education/Training Program; Referring Provider Nurse Practitioner Family; Visit Provider Nurse Practitioner Family
DX: I10 Essential (primary) hypertension (principal); I47.29 Other ventricular tachycardia; I25.10 Atherosclerotic heart disease of native coronary artery without angina pectoris; R06.09 Other forms of dyspnea; I25.119 Atherosclerotic heart disease of native coronary artery with unspecified angina pectoris; Z95.0 Presence of cardiac pacemaker; E78.00 Pure hypercholesterolemia, unspecified
CPT/HCPCS: 36415; 78452; 80048; 83735; 84439; 84443; 85025; 93017; 93306; A9500; A4216; J2785